=== PATIENT | female | born 1950 | race Caucasian/White ===

== ENCOUNTER 2017-02-24 21:38 | Inpatient (IN) | payer MEDICARE, MEDICAID ==
[2017-02-24 23:48] LABS: BASO # 0.1 K/uL (0.0-0.2); BASO % 0.8 % (0.0-2.0); EOS # 0.1 K/uL (0.0-0.7); EOS % 1.9 % (0.0-4.0); HEMATOCRIT 39.4 % (34.0-47.0); LYMPH # 1.6 K/uL (1.0-4.3); MEAN CORPUSCULAR HEMOGLOBIN 30.6 pg (27.0-31.0); MEAN CORPUSCULAR HGB CONC 34.3 g/dL (33.0-37.0); MEAN PLATELET VOLUME 8.2 fL (7.2-11.7); MONO # 0.4 K/uL (0.0-0.8); RED CELL DISTRIBUTION WIDTH 13.8 % (11.5-14.5); WHITE BLOOD COUNT 6.8 K/uL (4.8-10.8)
[2017-02-24 23:57] LABS: CHLORIDE 101 mmol/L (98-107); SODIUM 136 mmol/L (132-148)
--- NOTE | 2017-02-24 23:58 | CT ---
EXAM: CT Head Without Intravenous Contrast EXAM DATE/TIME: 02/24/2017 10:58 PM CLINICAL HISTORY: 66 years old, female; Condition or disease; Headache; Headache not specified; Additional info: Headache, weakness, h/o evp operations shunt TECHNIQUE: Axial computed tomography images of the head/brain without intravenous contrast. All CT scans at this facility use one or more dose reduction techniques, viz.: automated exposure control; ma/kV adjustment per patient size (including targeted exams where dose is matched to indication; i.e. head); or iterative reconstruction technique. COMPARISON: No relevant prior studies available. FINDINGS: Brain and ventricles: A ventricular catheter is in place. Catheter enters from a right frontal approach and extends inferiorly and medially to the midline. There is now dilatation of the lateral and third ventricles. There is mild effacement of sulci or gyri. Fourth ventricle is unchanged in size and configuration. There are no focal masses or hemorrhages. Quintana-white differentiation is visualized Bones/joints: There is a right frontal sarina hole. Visualized extracranial portion of the shunt apparatus is intact. Soft tissues: unremarkable Sinuses: There is no acute sinusitis. Ears and mastoids: Middle ears and mastoids are unremarkable Orbits: Orbital contents are unremarkable. Tubes, lines and devices: IMPRESSION: Shunt malfunction
[2017-02-24 23:59] LABS: ALB/GLOB RATIO 1.7 (1.0-2.1); AST/SGOT 23 U/L (14-36); BILIRUBIN,TOTAL 0.4 mg/dL (0.2-1.3); CARBON DIOXIDE 23 mmol/L (22-30); GFR AFRICAN-AMERICAN > 60; TOTAL PROTEIN 6.4 g/dL (6.3-8.3)
[2017-02-25] LABS: ALKALINE PHOSPHATASE 57 U/L (38-126); ALT/SGPT 35 U/L (9-52); BLOOD UREA NITROGEN 19 mg/dL (7-17); CALCIUM 9.2 mg/dl (8.6-10.4); GLUCOSE,RANDOM 84 mg/dL (65-105); MAGNESIUM 1.7 mg/dL (1.6-2.3)
[2017-02-25 00:29] LABS: RBC URINE 1 /hpf (0-3); URINE BILIRUBIN NEGATIVE (NEGATIVE); URINE BLOOD NEGATIVE (NEGATIVE); URINE COLOR Straw (YELLOW); URINE GLUCOSE (UA) NORMAL (Normal); URINE KETONE NEGATIVE (NEGATIVE); URINE LEUKOCYTE ESTERASE NEG Leu/uL (Negative); URINE PROTEIN NEGATIVE (NEGATIVE); URINE UROBILINOGEN NORMAL mg/dL (0.2-1.0); WBC URINE 1 /hpf (0-5)
--- NOTE | 2017-02-25 00:49 | C.PDOC ---
Time Seen by Provider: 02/24/17 22:20 Chief Complaint (Nursing): Altered Mental Status History Per: Patient, Family Onset/Duration Of Symptoms: Days (few) Current Symptoms Are (Timing): Still Present Usual Baseline: Alert Oriented, Ambulatory Decreased Ability To: Walk Severity: Moderate Additional History Per: Prior Records Associated Symptoms: Headache, Weakness Past Medical History Reviewed: Historical Data, Nursing Documentation, Vital Signs Vital Signs: Last Vital Signs Temp 98.1 F 02/24/17 23:45 Pulse 90 02/24/17 21:46 Resp 16 02/24/17 21:46 BP 120/79 02/24/17 21:46 Pulse Ox 97 02/24/17 21:46 - Medical History PMH: Asthma, Diabetes, HTN, Hyperlipidemia Other Surgeries: EXERCISE SPECIALIST Shunt Family History: States: Unknown Family Hx - Social History Hx Alcohol Use: No Hx Substance Use: No - Immunization History Hx Influenza Vaccination: Yes Hx Pneumococcal Vaccination: No Review Of Systems Except As Marked, All Systems Reviewed And Found Negative. Constitutional: Positive for: Weakness. Negative for: Fever Cardiovascular: Negative for: Chest Pain Respiratory: Negative for: Shortness of Breath Gastrointestinal: Negative for: Nausea, Vomiting, Abdominal Pain, Diarrhea Skin: Negative for: Rash Neurological: Positive for: Altered Mental Status, Headache. Negative for: Weakness, Numbness, Seizures Physical Exam - Physical Exam Appears: No Acute Distress Skin: Normal Color, Warm, Dry Head: Atraumatic, Normacephalic Eye(s): bilateral: PERRL, Other (Pt is unable to look up) Neck: Normal ROM, Supple Cardiovascular: Rhythm Regular Respiratory: Normal Breath Sounds, No Accessory Muscle Use Gastrointestinal/Abdominal: Soft, No Tenderness Back: No CVA Tenderness Extremity: Normal ROM Neurological/Psych: Oriented x3, Normal Motor, Normal Sensation ED Course And Treatment - Laboratory Results Result Diagrams: 02/24/17 23:46 02/24/17 23:46 ECG: Interpreted By Me, Viewed By Me ECG Rhythm: Sinus Rhythm ECG Interpretation: No Acute Changes Rate From EC O2 Sat by Pulse Oximetry: 97 Pulse Ox Interpretation: Normal - CT Scan/US CT head Other Rad Studies (CT/US): Read By Radiologist, Radiology Report Reviewed CT/US Interpretation: IMPRESSION: Shunt malfunction - Physician Consult Information Physician Contacted: Fer Hancock (Neurosurg.) Outcome Of Conversation: He wants pt admitted on medical service and he will do procedure tomorrow. Disposition Discussed With Dr.: Travis Alfredo MD Comment: He accepted pt on hospitalist service as pt's pmd is Dr. Pritchett. Doctor Will See Patient In The: Hospital Counseled Patient/Family Regarding: Studies Performed, Diagnosis - Disposition Disposition: HOSPITALIZED Disposition Time: 00:52 Condition: GUARDED - Clinical Impression Clinical Impression: Obstructed EXERCISE SPECIALIST shunt, Hydrocephalus
--- NOTE | 2017-02-25 00:50 | RAD ---
EXAM: XR Skull, 1, 2 or 3 Views CLINICAL HISTORY: 66 years old, female; Pain; Other: Check vp respiratory shunt; Headache; Prior surgery TECHNIQUE: Frontal and/or lateral views of the skull. COMPARISON: No relevant prior studies available. FINDINGS: Bones/joints: Frontal view of the skull shows no acute fracture. The bones are well-mineralized. Sinuses: Visualized sinuses are well-aerated Soft tissues: see above Tubes, lines and devices: There is a ventricular catheter entering from right frontal approach. Catheter projects inferiorly and medially toward the midline. The extracranial portion of the shunt apparatus appears intact. Tubing courses over the right skull, neck and right upper chest. IMPRESSION: Ventricular catheter entering from a right-sided approach; visualized extracranial tubing intact EXAM: XR Chest, 1 View CLINICAL HISTORY: 66 years old, female; Pain; Other: Check vp respiratory shunt; Headache; Prior surgery TECHNIQUE: Frontal view of the chest. COMPARISON: No relevant prior studies available. FINDINGS: Lungs: Lungs are incompletely imaged. Visualized portions are clear. Pleural space: There are no large effusions. Heart: Heart size is accentuated by technique. Mediastinum: unremarkable Bones/joints: Regional bones are well-mineralized Tubes, lines and devices: Shunt tubing courses over the lower right neck, midportion of the right chest and projects over the right upper quadrant of the abdomen. Tubing is intact IMPRESSION: Intact tubing EXAM: XR Abdomen, 1 View EXAM DATE/TIME: 02/24/2017 11:07 PM CLINICAL HISTORY: 66 years old, female; Pain; Other: Check vp respiratory shunt; Headache; Prior surgery TECHNIQUE: Frontal supine view of the abdomen/pelvis. COMPARISON: CT - HEAD W/O CONTRAST 2017-02-24 23:15 FINDINGS: Gastrointestinal tract: There is a nonobstructed bowel gas pattern. There is a clip in the right upper quadrant. Bones/joints: There are no acute osseous abnormalities. Soft tissues: There are no abnormal soft tissue masses or pathologic calcifications Tubes, lines and devices: Shunt tubing courses over the right upper abdomen. Catheter projects down the right flank.. Tip is in the right lower quadrant. IMPRESSION: Intact tubing
[2017-02-25] MEDS ORDERED: Potassium Chloride 20 mEq ER Tab PO STA (00:55)
[2017-02-25] MEDS ORDERED: Apap-Butalbital-Caffeine 325-50-40mg Tab PO PRN (01:06)
[2017-02-25] MEDS ORDERED: Glucagon Recombinant 1 mg Inj IM PRN ×2 (01:14→01:32)
[2017-02-25] MEDS ORDERED: Dextrose 50% SYRINGE Inj (50 ml) IVP PRN ×2 (01:14→01:32)
[2017-02-25] MEDS ORDERED: Dextrose 5%/0.45% NS 1,000 ML IV SCH (01:15)
--- NOTE | 2017-02-25 01:20 | CP.PCM.HP ---
Addendum entered and electronically signed by Jaleesa Richard DO 02/25/17 06:08: D5W @ 75 discontinued due to gluc in 200s per nursing report Original Note: <Jaleesa Richard - Last Filed: 02/25/17 01:31> History of Present Illness - History of Present Illness History of Present Illness: History and Physical for Dr. Alfredo 66F presents with increasing weakness, dizziness that waxes and wanes for the past 2 days. Patient had a TELECOMMUNICATIONS ADMINISTRATOR shunt placed in 2012. Per daughter and sons, patient normally walks, but her walking has been bad lately. Family and patient informed that neurosurgery has been consulted and patient is to be NPO overnight for surgery tomorrow. Patient denies fever, visual changes, chest pain , SOB, extremity weakness, sensory changes. PMH: HTN, Diabetes, hypercholesterolemia, and asthma PSH: TELECOMMUNICATIONS ADMINISTRATOR shunt, placed by neurosurgeon Dr. Shepherd at [facility]. (per previous admission note) Allergies NKDA Present on Admission - Present on Admission Any Indicators Present on Admission: No History of DVT/PE: No History of Uncontrolled Diabetes: No Urinary Catheter: No Past Patient History - Infectious Disease Hx of Infectious Diseases: None - Past Social History Smoking Status: Never Smoked - CARDIAC Hx Hypertension: Yes - PULMONARY Hx Asthma: Yes - NEUROLOGICAL Hx Vertigo: Yes - ENDOCRINE/METABOLIC Hx Diabetes Mellitus Type 1: Yes - PSYCHIATRIC Hx Substance Use: No - SURGICAL HISTORY Other/Comment: brain shunt - ANESTHESIA Hx Anesthesia: Yes Hx Anesthesia Reactions: No Meds Allergies/Adverse Reactions: Allergies Allergy/AdvReac Type Severity Reaction Status Date / Time No Known Allergies Allergy Verified 12/08/15 16:19 Physical Exam - Head Exam Head Exam: ATRAUMATIC - Eye Exam Eye Exam: EOMI, Normal appearance - ENT Exam ENT Exam: Mucous Membranes Moist - Respiratory Exam Respiratory Exam: NORMAL BREATHING PATTERN. absent: Accessory Muscle Use, Respiratory Distress - Cardiovascular Exam Cardiovascular Exam: REGULAR RHYTHM, +S1, +S2. absent: Bradycardia, Tachycardia - GI/Abdominal Exam GI & Abdominal Exam: Distended, Soft. absent: Firm, Guarding, Tenderness - Extremities Exam Extremities exam: Positive for: normal inspection. Negative for: joint swelling , pedal edema - Psychiatric Exam Psychiatric exam: Flat Affect - Skin Skin Exam: Dry, Pallor Results - Vital Signs Recent Vital Signs: Last Vital Signs Temp 98.1 F 02/24/17 23:45 Pulse 90 02/24/17 21:46 Resp 16 02/24/17 21:46 BP 120/79 02/24/17 21:46 Pulse Ox 97 02/25/17 00:53 - Labs Result Diagrams: 02/24/17 23:46 02/24/17 23:46 Labs: Laboratory Results - last 24 hr 02/24/17 02/24/17 02/24/17 21:59 23:46 23:46 WBC 6.8 RBC 4.42 Hgb 13.5 Hct 39.4 MCV 89.0 MCH 30.6 MCHC 34.3 RDW 13.8 Plt Count 197 MPV 8.2 Neut % (Auto) 68.3 Lymph % (Auto) 23.0 [place] % (Auto) 6.0 Eos % (Auto) 1.9 Baso % (Auto) 0.8 Neut # 4.6 Lymph # 1.6 [place] # 0.4 Eos # 0.1 Baso # 0.1 PT 11.6 INR 1.0 APTT 28 Sodium Potassium Chloride Carbon Dioxide Anion Gap BUN Creatinine Est GFR ( Amer) Est GFR (Non-Af Amer) POC Glucose (mg/dL) 140 H Random Glucose Calcium Magnesium Total Bilirubin AST ALT Alkaline Phosphatase Troponin I NT-Pro-B Natriuret Pep Total Protein Albumin Globulin Albumin/Globulin Ratio Urine Color Urine Clarity Urine pH Ur Specific [place] Urine Protein Urine Glucose (UA) Urine Ketones Urine Blood Urine Nitrate Urine Bilirubin Urine Urobilinogen Ur Leukocyte Esterase Urine WBC (Auto) Urine RBC (Auto) Ur Squamous Epith Cells 02/24/17 02/25/17 23:46 00:24 WBC RBC Hgb Hct MCV MCH MCHC RDW Plt Count MPV Neut % (Auto) Lymph % (Auto) [place] % (Auto) Eos % (Auto) Baso % (Auto) Neut # Lymph # [place] # Eos # Baso # PT INR APTT Sodium 136 Potassium 3.0 L Chloride 101 Carbon Dioxide 23 Anion Gap 14 BUN 19 H Creatinine 0.9 Est GFR ( Amer) > 60 Est GFR (Non-Af Amer) > 60 POC Glucose (mg/dL) Random Glucose 84 Calcium 9.2 Magnesium 1.7 Total Bilirubin 0.4 AST 23 ALT 35 Alkaline Phosphatase 57 Troponin I < 0.0120 NT-Pro-B Natriuret Pep 50.7 Total Protein 6.4 Albumin 4.0 Globulin 2.4 Albumin/Globulin Ratio 1.7 Urine Color Straw Urine Clarity Clear Urine pH 7.0 Ur Specific [place] 1.005 Urine Protein Negative Urine Glucose (UA) Normal Urine Ketones Negative Urine Blood Negative Urine Nitrate Negative Urine Bilirubin Negative Urine Urobilinogen Normal Ur Leukocyte Esterase Neg Urine WBC (Auto) 1 Urine RBC (Auto) 1 Ur Squamous Epith Cells 1 Assessment & Plan - Assessment and Plan (Free Text) Assessment: increasing hydrocephalus, hx TELECOMMUNICATIONS ADMINISTRATOR shunt Neurocheck Q4H Vitals Q4H Neurosurgery consult: Dr. Hancock for TELECOMMUNICATIONS ADMINISTRATOR shunt placement/adjustment AM CMP, Mg, Ph, CBC, and COAG Hx HTN Valsartan-HCTZ 1 tab POQD norvasc 5mg POQD DM gabapentin 100mgPOBID Simvastatin 40mg POQD Accucheck Insulin ACHS SS, Low D5W 1/2 NS @75cc HLD Simvastatin 40mg POQD Asthma Proair Hfa 2 puff INH daily Prophylaxis diet: NPO except meds SCDs Protonix 40mg POQD discussed with Dr. Sayda Richard DO PGY1 - Date & Time Date: 02/25/17 Time: 01:29 <Sayda SALAS,Travis - Last Filed: 02/27/17 09:37> Results - Vital Signs Recent Vital Signs: Last Vital Signs Temp 99.3 F 02/27/17 00:00 Pulse 89 02/27/17 01:00 Resp 20 02/27/17 00:00 BP 149/90 02/27/17 00:00 Pulse Ox 96 02/27/17 00:00 - Labs Result Diagrams: 02/27/17 08:48 02/26/17 08:43 Labs: Laboratory Results - last 24 hr 02/26/17 02/26/17 02/26/17 11:30 16:54 21:58 WBC RBC Hgb Hct MCV MCH MCHC RDW Plt Count MPV Neut % (Auto) Lymph % (Auto) [place] % (Auto) Eos % (Auto) Baso % (Auto) Neut # Lymph # [place] # Eos # Baso # POC Glucose (mg/dL) 333 H 345 H 341 H 02/27/17 02/27/17 07:33 08:48 WBC 8.3 RBC 4.17 Hgb 12.9 Hct 37.1 MCV 89.0 MCH 31.0 MCHC 34.8 RDW 13.8 Plt Count 191 MPV 8.1 Neut % (Auto) 76.6 H Lymph % (Auto) 16.4 L [place] % (Auto) 6.3 Eos % (Auto) 0.2 Baso % (Auto) 0.5 Neut # 6.4 Lymph # 1.4 [place] # 0.5 Eos # 0.0 Baso # 0.0 POC Glucose (mg/dL) 393 H Attending/Attestation - Attestation I have personally seen and examined this patient.: Yes I have fully participated in the care of the patient.: Yes I have reviewed all pertinent clinical information: Yes Notes (Text): -I agree with the above H&P completed by the resident physician. -Briefly, the patient is a 66 yo F with a history of TELECOMMUNICATIONS ADMINISTRATOR shunt, being admitted for symptomatic hydrocephalus likely due to TELECOMMUNICATIONS ADMINISTRATOR shunt malfunction. Neurosurgery has been consulted and the patient will be kept NPO overnight for likely shunt revision in AM.
[2017-02-25] MEDS ORDERED: Potassium Chloride 20 mEq ER Tab PO ONE (01:21)
[2017-02-25] MEDS: (Novolin R) Insulin Human Regular 100 units/ml vial SC SCH ×4 (07:30→23:41)
--- NOTE | 2017-02-25 08:36 | CP.PCM.PN ---
Subjective - Date & Time of Evaluation Date of Evaluation: 02/25/17 Time of Evaluation: 08:00 - Subjective Subjective: Hospitalist Progress Note Patient was seen and examined at 8 AM 02/25/17 [id number] A 66 year old female was admitted earlier this morning with complaints of dizziness, weakness off and on for the past 2 days. My coversation with Son Aftab [phone] and Daughter Maribeth [phone] revealed that the patient has been feeling these things steadily getting worse over the course of 3 months. This has been associated with shuffling gait, worsening of speech ( mubling), and episodes on 02/24/17 evening of not answering appropriately to questions that were posed to her. CT Head shows dilataton of the lateral and third ventricles with mild effacement of the sulci/gyri, shows FOUNTAIN MANAGER shunt malfunction. ShuntGram shows intact FOUNTAIN MANAGER Tubing. She has a history of FOUNTAIN MANAGER shunt and Patient is currently NPO and awaiting evaluation by Neurosurgery. Currently upon FULL ROS: NO chest pain NO SOB NO abdominal pain NO n/v/d/c (last bowel movement was yesterday and it was normal NO pain with Urination HOWEVER states that she has been urinating FREQUENTLY NO dizziness while laying in bed (+) Headache on the left temporal/parietal/occipital area NO blurriness/double vision NO new changes in hearing NO paresthesias Exam: General: Awake, Slurred speech, States that it is March but could not relate the year, Recognizes son and daughter, Follows commands HEENT: NCA, Pupils are round/equal and reactive to light however patient is only able to follow the light with her eye from side to side, NO cervical lymphadenopathy, NO thyromegaly, Could NOT visualize pharynx, Patient only able to extend tongue straight outwards but not side to side Cardio: NS1 and NS2, NO M/R/G Resp: CTA B/L NO R/R/W GI: BSx4 are reduced, Soft, Central Obesity therefore liver and spleen could not be adequately palpated, NT, NO guarding/rebound tenderness Ext: NO edema, Pulses are strong and equal, Capillary Refill is 2 seconds Neuro: 5/5 strength with flexion and extension of bilateral UE, 5/5 strength with flexion and extension of the bilateral knees, Hip strength could not be assessed, Babinski normal, Rhomberg could not be assessed at this time. Assessment and Plan: 1). Hydrocephalus CT Head shows dilataton of the lateral and third ventricles with mild effacement of the sulci/gyri, shows FOUNTAIN MANAGER shunt malfunction. ShuntGram shows intact FOUNTAIN MANAGER Tubing. Neurosurgery was contacted by overnight Medicine Team and awaiting evaluation 2). Hypokalemia S/P 40 meq KCl x 1 dose 3). Hx HTN Norvasc 5 mg PO 1x/day Valsartan/HCTZ 160/25 mg PO 1x/day 4). Hx DM 2 Regular ISS ACHS Gabapentin 100 mg PO 1x/day 5). Hx HLD Vascepa 1 gm PO 2x/day Crestor 10 mg PO HS 6). Hx Asthma Proair 7). Prophylaxis Protonix 40 mg PO 1x/day HOLDING anticoagulation for now for possible procedure Bilateral SCDs NPO I went over findings on CT Head and Shuntgram with both Son Aftab [phone] and Daughter Maribeth [phone]. Marcos Tavares D.O. [phone] Objective - Vital Signs/Intake and Output Vital Signs (last 24 hours): Temp Pulse Resp BP Pulse Ox 98 F 99 H 20 123/83 96 02/25/17 08:00 02/25/17 08:00 02/25/17 08:00 02/25/17 08:00 02/25/17 08:00 - Medications Medications: Current Medications Acetaminophen/Butalbital/Caffeine (Fioricet) 1 tab PO TID PRN PRN Reason: Headache Amlodipine Besylate (Norvasc) 5 mg PO DAILY [facility] Dextrose (Dextrose 50% Inj) 0 ml IVP .STAT PRN; Protocol PRN Reason: Hypoglycemia Protocol Dextrose (Glutose 15) 0 gm PO .ONCE PRN; Protocol PRN Reason: Hypoglycemia Protocol Gabapentin (Neurontin) 100 mg PO DAILY [facility] Glucagon (Glucagen Diagnostic Kit) 0 mg IM .STAT PRN; Protocol PRN Reason: Hypoglycemia Protocol Home Med (Icosapent Ethyl [Vascepa]) 1 gm PO BID MO[facility] Home Med (Proair Hfa) 2 puff INH DAILY [facility] Home Med (Valsartan-Hctz 160-25 Mg Tab) 1 tab PO DAILY [facility] Dextrose (Dextrose 5% In Water 1000 Ml) 1,000 mls @ 0 mls/hr IV .Q0M PRN; Protocol; Per Protocol PRN Reason: Hypoglycemia Protocol Insulin Human Regular (Novolin R) 0 unit SC ACHS [facility] PRN Reason: Protocol Pantoprazole Sodium (Protonix Ec Tab) 40 mg PO DAILY [facility] Rosuvastatin Calcium (Crestor) 10 mg PO HS MOLLY - Labs Labs: 02/24/17 23:46 10 23:46 PT 11.6 SECONDS (9.7-12.2) 02/24/17 23:46 INR 1.0 02/24/17 23:46 APTT 28 SECONDS (21-34) 02/24/17 23:46
[2017-02-25 08:37] LABS: ALB/GLOB RATIO 1.7 (1.0-2.1); ALKALINE PHOSPHATASE 63 U/L (38-126); AST/SGOT 23 U/L (14-36); BILIRUBIN,TOTAL 0.6 mg/dL (0.2-1.3); BLOOD UREA NITROGEN 17 mg/dL (7-17); CARBON DIOXIDE 20 mmol/L (22-30); CHLORIDE 107 mmol/L (98-107); GFR AFRICAN-AMERICAN > 60; GLUCOSE,RANDOM 183 mg/dL (65-105); POTASSIUM 3.7 mmol/L (3.6-5.2); SODIUM 137 mmol/L (132-148); TOTAL PROTEIN 6.5 g/dL (6.3-8.3)
[2017-02-25 08:38] LABS: ALT/SGPT 30 U/L (9-52); CALCIUM 9.1 mg/dl (8.6-10.4); MAGNESIUM 1.7 mg/dL (1.6-2.3)
[2017-02-25 08:38] LABS: BASO % 0.8 % (0.0-2.0); EOS # 0.2 K/uL (0.0-0.7); EOS % 2.4 % (0.0-4.0); HEMATOCRIT 39.6 % (34.0-47.0); LYMPH # 1.8 K/uL (1.0-4.3); LYMPH % 28.1 % (20.0-40.0); MEAN CELL VOLUME 89.6 fL (81.0-99.0); MEAN CORPUSCULAR HEMOGLOBIN 30.2 pg (27.0-31.0); MEAN CORPUSCULAR HGB CONC 33.7 g/dL (33.0-37.0); MEAN PLATELET VOLUME 8.6 fL (7.2-11.7); MONO # 0.4 K/uL (0.0-0.8); MONO % 5.9 % (0.0-10.0); NRBC % 0.1 % (0.0-2.0); RED CELL DISTRIBUTION WIDTH 13.8 % (11.5-14.5); WHITE BLOOD COUNT 6.6 K/uL (4.8-10.8)
[2017-02-25] MEDS ORDERED: Albuterol HFA 90 mcg/actuation (8 g) INH PRN ×2 (09:22→12:00)
[2017-02-25] MEDS ORDERED: [UNRECOGNIZED DRUG - OTHER] PO SCH (10:00)
[2017-02-25] MEDS ORDERED: LIRAGLUTIDE PO SCH (10:00)
[2017-02-25] MEDS: Omega-3-Acid Ethyl Esters 1 GM Cap PO SCH ×2 (11:00→18:27)
[2017-02-25] MEDS: Pantoprazole 40 mg EC Tab PO SCH (11:00)
[2017-02-25] MEDS: Albuterol-Ipratrop 3 mg / 0.5 (3 ml) UD INH PRN (12:03)
[2017-02-25] MEDS ORDERED: Gentamicin Sulfate 10 MG in Sodium Chloride 0.9% 1 ML IN ONE (13:00)
[2017-02-25] MEDS ORDERED: Vancomycin 10 MG in Sodium Chloride 0.9% 1 ML IN ONE (13:00)
[2017-02-25] MEDS ORDERED: cefTRIAXone IV 1 gm in Dextros 50 ML IVPB ONE (13:19)
[2017-02-25] MEDS ORDERED: Bacitracin Ointment 30 GM TUBE ONE (13:20)
[2017-02-25] MEDS ORDERED: Lidocaine 1%/Epinephrine 1:100000 30 ml vial IJ ONE (13:30)
[2017-02-25] MEDS ORDERED: Rocuronium 10 mg/ml (5 ml) ONE (13:42)
[2017-02-25] MEDS ORDERED: Propofol 10 mg/ml Inj (20 ML) ONE ×2 (13:42→15:46)
[2017-02-25] MEDS ORDERED: Lactated Ringer's 1,000 ML IV ONE ×2 (13:45→16:15)
[2017-02-25] MEDS ORDERED: Absorbable Gelatin Sponge Size 12-7 ONE (14:38)
[2017-02-25] MEDS ORDERED: Thrombin Topical 5,000 IU Spray Kit ONE (14:38)
[2017-02-25] MEDS ORDERED: HYDROmorphone 0.5 mg/0.5 ml ISec IVP STA (16:10)
[2017-02-25] MEDS ORDERED: Naloxone 0.4 mg/ml Inj (Adult) IVP PRN (16:21)
[2017-02-25] MEDS ORDERED: HYDROmorphone 0.5 mg/0.5 ml ISec ONE (16:31)
[2017-02-25 19:53] LABS: FLUID TYPE SPINAL FLUID
[2017-02-25] MEDS: Potassium Ch 20mEq in D5-1/2NS 1,000 ML IV SCH (20:47)
[2017-02-26] MEDS: Potassium Ch 20mEq in D5-1/2NS 1,000 ML IV SCH ×4 (03:30→23:50)
[2017-02-26] MEDS: (Novolin R) Insulin Human Regular 100 units/ml vial SC SCH ×4 (07:49→22:06)
[2017-02-26 08:59] LABS: BASO % 0.6 % (0.0-2.0); EOS # 0.1 K/uL (0.0-0.7); EOS % 1.9 % (0.0-4.0); HEMATOCRIT 35.4 % (34.0-47.0); LYMPH # 1.9 K/uL (1.0-4.3); LYMPH % 24.9 % (20.0-40.0); MEAN CELL VOLUME 89.4 fL (81.0-99.0); MEAN CORPUSCULAR HEMOGLOBIN 30.7 pg (27.0-31.0); MEAN CORPUSCULAR HGB CONC 34.3 g/dL (33.0-37.0); MEAN PLATELET VOLUME 8.8 fL (7.2-11.7); MONO # 0.6 K/uL (0.0-0.8); MONO % 7.3 % (0.0-10.0); RED CELL DISTRIBUTION WIDTH 14.2 % (11.5-14.5); WHITE BLOOD COUNT 7.5 K/uL (4.8-10.8)
[2017-02-26 09:15] LABS: CHLORIDE 105 mmol/L (98-107); POTASSIUM 3.6 mmol/L (3.6-5.2); SODIUM 135 mmol/L (132-148)
[2017-02-26 09:17] LABS: BILIRUBIN,TOTAL 0.7 mg/dL (0.2-1.3); CARBON DIOXIDE 21 mmol/L (22-30); GFR AFRICAN-AMERICAN > 60
[2017-02-26 09:18] LABS: ALB/GLOB RATIO 1.1 (1.0-2.1); ALKALINE PHOSPHATASE 61 U/L (38-126); ALT/SGPT 52 U/L (9-52); AST/SGOT 43 U/L (14-36); BLOOD UREA NITROGEN 13 mg/dL (7-17); CALCIUM 8.7 mg/dl (8.6-10.4); GLUCOSE,RANDOM 251 mg/dL (65-105); MAGNESIUM 1.6 mg/dL (1.6-2.3); TOTAL PROTEIN 6.7 g/dL (6.3-8.3)
--- NOTE | 2017-02-26 09:26 | CP.PCM.PN ---
Subjective - Date & Time of Evaluation Date of Evaluation: 02/26/17 Time of Evaluation: 09:10 - Subjective Subjective: Hospitalist Progress Note Patient was seen and examined at 9:10 AM 02/26/17 [id number] A 66 year old female was admitted 02/25/17 morning with complaints of dizziness, weakness off and on for the past 2 days. My coversation with Son Aftab and Daughter Maribeth [phone] on 02/25/17 revealed that the patient has been feeling these things steadily getting worse over the course of 3 months. This has been associated with shuffling gait, worsening of speech (mubling), and episodes on 02/24/17 evening of not answering appropriately to questions that were posed to her. CT Head shows dilataton of the lateral and third ventricles with mild effacement of the sulci/gyri, shows SUPPLY CHAIN VICE PRESIDENT shunt malfunction. ShuntGram shows intact SUPPLY CHAIN VICE PRESIDENT Tubing. She underwent Shunt Repair by Neurosurgery on 02/25/17 Currently upon FULL ROS: Patient is eating oatmeal that is being fed to her by her Daughter Maribeth but with eyes closed and not answering questions therefore ROS is not possible Exam: General:NOT responsive to questioning and not following commands HEENT: NCA, Pupils are round/equal and reactive to light, NO cervical lymphadenopathy, NO thyromegaly, Could NOT visualize pharynx as not opening mouth Cardio: NS1 and NS2, NO M/R/G Resp: CTA B/L NO R/R/W but this is limited by patient not taking in deep breaths GI: BSx4 are reduced, Soft, Central Obesity therefore liver and spleen could not be adequately palpated, NT, NO guarding/rebound tenderness Ext: NO edema, Pulses are strong and equal, Capillary Refill is 2 seconds Neuro: Coud NOT be performed due to patient status Assessment and Plan: 1). Hydrocephalus CT Head shows 02/24/17 dilataton of the lateral and third ventricles with mild effacement of the sulci/gyri, shows SUPPLY CHAIN VICE PRESIDENT shunt malfunction. ShuntGram 02/24/17 shows intact SUPPLY CHAIN VICE PRESIDENT Tubing. She is POD #1 SUPPLY CHAIN VICE PRESIDENT Shunt Repair 02/25/[address] Head w/o contrast ordered for 02/27/17 2). Hypokalemia S/P 40 meq KCl x 1 dose on 02/25/17 and this has resolved 3). Hx HTN Norvasc 5 mg PO 1x/day Valsartan/HCTZ 160/25 mg PO 1x/day 4). Hx DM 2 Regular ISS ACHS Gabapentin 100 mg PO 1x/day 5). Hx HLD Vascepa 1 gm PO 2x/day Crestor 10 mg PO HS 6). Hx Asthma Duoneb Q6H PRN 7). Prophylaxis Protonix 40 mg PO 1x/day HOLDING anticoagulation for now considering recent surgery Bilateral SCDs Heart Healthy 2gm Na Low Carb Diet PT/OT starting 02/27/17 I updated Daughter Maribeth [phone] who was at the bedside. Marcos Tavares D.O. Objective - Vital Signs/Intake and Output Vital Signs (last 24 hours): Temp Pulse Resp BP Pulse Ox 99.1 F 94 H 20 124/76 96 02/26/17 07:30 02/26/17 08:49 02/26/17 07:30 02/26/17 07:30 02/26/17 07:30 - Medications Medications: Current Medications Acetaminophen (Tylenol 325mg Tab) 650 mg PO Q6 PRN PRN Reason: Pain, moderate (4-7) Acetaminophen/Butalbital/Caffeine (Fioricet) 1 tab PO TID PRN PRN Reason: Headache Albuterol (Ventolin Hfa 90 Mcg/Actuation (8 G)) 1 puff INH RQ6 PRN PRN Reason: Shortness of Breath Albuterol/Ipratropium (Duoneb 3 Mg/0.5 Mg (3 Ml) Ud) 3 ml INH RQ6 PRN PRN Reason: Wheezing Last Admin: 02/25/17 12:03 Dose: 3 ml Amlodipine Besylate (Norvasc) 5 mg PO DAILY MOLLY Last Admin: 02/25/17 11:00 Dose: 5 mg Dextrose (Dextrose 50% Inj) 0 ml IVP .STAT PRN; Protocol PRN Reason: Hypoglycemia Protocol Dextrose (Glutose 15) 0 gm PO .ONCE PRN; Protocol PRN Reason: Hypoglycemia Protocol Gabapentin (Neurontin) 100 mg PO DAILY [facility] Last Admin: 02/25/17 11:00 Dose: 100 mg Glucagon (Glucagen Diagnostic Kit) 0 mg IM .STAT PRN; Protocol PRN Reason: Hypoglycemia Protocol Hydrochlorothiazide (Hydrodiuril) 25 mg PO DAILY [facility] Last Admin: 02/25/17 11:00 Dose: Not Given Dextrose (Dextrose 5% In Water 1000 Ml) 1,000 mls @ 0 mls/hr IV .Q0M PRN; Protocol; Per Protocol PRN Reason: Hypoglycemia Protocol Potassium Chloride/Dextrose/Sod Cl (Potassium Chl 20 Meq In D5-1/2ns) 1,000 mls @ 100 mls/hr IV .Q10H [facility] Last Admin: 02/26/17 06:40 Dose: 100 mls/hr Insulin Human Regular (Novolin R) 0 unit SC ACHS [facility] PRN Reason: Protocol Last Admin: 02/26/17 07:49 Dose: 3 unit Losartan Potassium (Cozaar) 100 mg PO DAILY [facility] Last Admin: 02/25/17 11:00 Dose: 100 mg [id number] Ethyl Esters (Lovaza) 1 gm PO BID [facility] Last Admin: 02/25/17 18:27 Dose: Not Given Pantoprazole Sodium (Protonix Ec Tab) 40 mg PO DAILY [facility] Last Admin: 02/25/17 11:00 Dose: 40 mg Rosuvastatin Calcium (Crestor) 10 mg PO HS [facility] Last Admin: 02/25/17 22:21 Dose: 10 mg - Labs Labs: 02/26/17 08:43 02/26/17 08:43 PT 11.7 SECONDS (9.7-12.2) 02/25/17 08:31 INR 1.0 02/25/17 08:31 APTT 28 SECONDS (21-34) 02/25/17 08:31
[2017-02-26] MEDS: Pantoprazole 40 mg EC Tab PO SCH (09:27)
[2017-02-26] MEDS: Omega-3-Acid Ethyl Esters 1 GM Cap PO SCH ×2 (09:27→17:14)
--- NOTE | 2017-02-26 11:11 | CP.PCM.PN ---
Subjective - Date & Time of Evaluation Date of Evaluation: 02/26/17 Time of Evaluation: 11:08 - Subjective Subjective: POD 1 ate bfast this am opens eyes to chest rub PERRL EOMI follows all commands briskly YEH well little more sluggish than expected but intact will get oob to cjhair check CT in am Objective - Vital Signs/Intake and Output Vital Signs (last 24 hours): Temp Pulse Resp BP Pulse Ox 99.1 F 94 H 20 124/76 96 02/26/17 07:30 02/26/17 08:49 02/26/17 07:30 02/26/17 07:30 02/26/17 07:30 - Medications Medications: Current Medications Acetaminophen (Tylenol 325mg Tab) 650 mg PO Q6 PRN PRN Reason: Pain, moderate (4-7) Acetaminophen/Butalbital/Caffeine (Fioricet) 1 tab PO TID PRN PRN Reason: Headache Albuterol (Ventolin Hfa 90 Mcg/Actuation (8 G)) 1 puff INH RQ6 PRN PRN Reason: Shortness of Breath Albuterol/Ipratropium (Duoneb 3 Mg/0.5 Mg (3 Ml) Ud) 3 ml INH RQ6 PRN PRN Reason: Wheezing Last Admin: 02/25/17 12:03 Dose: 3 ml Amlodipine Besylate (Norvasc) 5 mg PO DAILY [facility] Last Admin: 02/26/17 09:28 Dose: 5 mg Dextrose (Dextrose 50% Inj) 0 ml IVP .STAT PRN; Protocol PRN Reason: Hypoglycemia Protocol Dextrose (Glutose 15) 0 gm PO .ONCE PRN; Protocol PRN Reason: Hypoglycemia Protocol Gabapentin (Neurontin) 100 mg PO DAILY [facility] Last Admin: 02/26/17 09:27 Dose: 100 mg Glucagon (Glucagen Diagnostic Kit) 0 mg IM .STAT PRN; Protocol PRN Reason: Hypoglycemia Protocol Hydrochlorothiazide (Hydrodiuril) 25 mg PO DAILY [facility] Last Admin: 02/26/17 09:27 Dose: 25 mg Dextrose (Dextrose 5% In Water 1000 Ml) 1,000 mls @ 0 mls/hr IV .Q0M PRN; Protocol; Per Protocol PRN Reason: Hypoglycemia Protocol Potassium Chloride/Dextrose/Sod Cl (Potassium Chl 20 Meq In D5-1/2ns) 1,000 mls @ 100 mls/hr IV .Q10H [facility] Last Admin: 02/26/17 06:40 Dose: 100 mls/hr Insulin Human Regular (Novolin R) 0 unit SC ACHS [facility] PRN Reason: Protocol Last Admin: 02/26/17 07:49 Dose: 3 unit Losartan Potassium (Cozaar) 100 mg PO DAILY [facility] Last Admin: 02/26/17 09:27 Dose: 100 mg Nmukc-5-Hydy Ethyl Esters (Lovaza) 1 gm PO BID [facility] Last Admin: 02/26/17 09:27 Dose: 1 gm Pantoprazole Sodium (Protonix Ec Tab) 40 mg PO DAILY [facility] Last Admin: 02/26/17 09:27 Dose: 40 mg Rosuvastatin Calcium (Crestor) 10 mg PO HS [facility] Last Admin: 02/25/17 22:21 Dose: 10 mg - Labs Labs: 02/26/17 08:43 02/26/17 08:43 PT 11.7 SECONDS (9.7-12.2) 02/25/17 08:31 INR 1.0 02/25/17 08:31 APTT 28 SECONDS (21-34) 02/25/17 08:31
--- NOTE | 2017-02-26 22:39 | OP ---
PROCEDURE DATE: 02/26/2017 PREOPERATIVE DIAGNOSIS: Ventriculoperitoneal shunt malfunction. POSTOPERATIVE DIAGNOSES: Ventriculoperitoneal shunt malfunction and peritoneal catheter obstruction. PROCEDURE: Emergency revision of ventriculoperitoneal shunt. SURGEON: Fer Hancock MD CO-SURGEON: Padmaja Monroe MD. ANESTHESIA: General endotracheal. ESTIMATED BLOOD LOSS: 50 mL. COMPLICATIONS: None. JUSTIFICATION: The patient apparently had a ventriculoperitoneal shunt inserted in 2014 at [place]. This was as stated by the family primarily for headache. She did well for a couple of years and now presented with a couple of days of progressive lethargy. She was admitted and found to be confused and lethargic. CT documented ventriculomegaly. ROADS SUPERVISOR shunt malfunction was diagnosed. The family was suggested for her to undergo urgent exploration and revision of the ROADS SUPERVISOR shunt. The nature of this procedure, the rationale behind it, potential risks, complications,chance of success were discussed with them at length. All questions were answered. They understood the above and elected to proceed and she was brought urgently to the operating room. DESCRIPTION OF PROCEDURE: The patient was intubated and anesthetized, placed on the OR table in a supine position and placed on a donut and turned 45 degrees to the left. The entire right side of the scalp was hair clipped. It was noted based on the physical exam as well as the ROADS SUPERVISOR and shuntogram that she had a right frontal bur hole with 2 going immediately at the right angle into some type reservoir and connected to a valve and then heading distally down to the abdomen. This whole area was prepped out. There was a curved linear incision just medial to the bur hole. The entire neck, chest and abdomen was scrubbed, painted and draped. The old incision was opened with #15 blade knife and then as the valve was sitting distally to this incision, excision had to be extended at a right angle another several centimeters to expose the entire valve. The distal ventricular catheter and the valve were dissected out with the use of a tenotomy scissors. At this point, I disconnected the ventricular catheter from this reservoir and immediately clear CSF under very high pressure shot out. I collected about 10 mL per for specimen, bled another 5 or so mL drain out and then temporarily clamped the catheter so has not to remove too much CSF at one time and obviously diagnosed that the ventricular catheter was working quite well. I then disconnected the valve from the peritoneal catheter which was essentially completely blocked. I attempted to pull out the peritoneal catheter but it was lodge somewhere in the neck or upper chest and therefore I transected it there. I removed this old valve which I was completely unfamiliar with, I replaced it with a new [employer] Strata valve. This was then connected to the ventricular catheter and again CSF was pouring out of the valve as it was continuously to be under high pressure, as more CSF drain out in this manner. At this point, using a shunt passer, I passed the peritoneal catheter approach to the clavicular area were the passer was hung-up, made a separate stab incision there, then passed a catheter down to a new peritoneal incision. We flushed the peritoneal catheter through. I then hooked up the proximal end of the peritoneal catheter to distal end of the valve and pumped several times and then documented that CSF was seen emerging very nicely from the distal end of the peritoneal catheter with the valve set in its final position in the skull documenting excellent functioning of the new system at this point in time. Dr. Monroe then buried the peritoneal catheter into the abdomen and closed that into the incision while I placed 2-0 ties around the both ends of the connection site of the new valve. I also placed some Vicryl sutures tethering the valve to the periosteum. The wound was copiously irrigated with antibiotic solution. Additionally, I injected 10 mL of vancomycin and 10 mL of gentamicin directly into the valve for additional antibiotic prophylaxis. At this point, the galea was re-approximated using interrupted inverted 3-O Vicryl. The skin closed with clayton. Bacitracin ointment and a self-adhering dressing was placed. These were placed over 3 woolens. The patient was aroused from anesthesia and extubated easily. She was noted to be moving all extremities on her way to the recovery room. All counts were correct. There were no complications. Fer Hancock MD
[2017-02-27] MEDS: Potassium Ch 20mEq in D5-1/2NS 1,000 ML IV SCH ×2 (02:49→09:15)
[2017-02-27] MEDS: (Novolin R) Insulin Human Regular 100 units/ml vial SC SCH ×6 (07:30→22:12)
[2017-02-27 08:57] LABS: BASO % 0.5 % (0.0-2.0); EOS % 0.2 % (0.0-4.0); HEMATOCRIT 37.1 % (34.0-47.0); LYMPH # 1.4 K/uL (1.0-4.3); LYMPH % 16.4 % (20.0-40.0); MEAN CORPUSCULAR HGB CONC 34.8 g/dL (33.0-37.0); MEAN PLATELET VOLUME 8.1 fL (7.2-11.7); MONO # 0.5 K/uL (0.0-0.8); MONO % 6.3 % (0.0-10.0); RED CELL DISTRIBUTION WIDTH 13.8 % (11.5-14.5); WHITE BLOOD COUNT 8.3 K/uL (4.8-10.8)
[2017-02-27 09:30] LABS: CHLORIDE 101 mmol/L (98-107); SODIUM 131 mmol/L (132-148)
[2017-02-27 09:32] LABS: GFR AFRICAN-AMERICAN > 60
[2017-02-27 09:33] LABS: BLOOD UREA NITROGEN 13 mg/dL (7-17); CALCIUM 8.6 mg/dl (8.6-10.4); CARBON DIOXIDE 20 mmol/L (22-30); GLUCOSE,RANDOM 385 mg/dL (65-105)
[2017-02-27] MEDS: Omega-3-Acid Ethyl Esters 1 GM Cap PO SCH ×4 (11:00→18:25)
[2017-02-27] MEDS: Pantoprazole 40 mg EC Tab PO SCH (11:00)
--- NOTE | 2017-02-27 11:33 | CT ---
PROCEDURE: CT HEAD WITHOUT CONTRAST. HISTORY: S/P ELASTIC ATTACHER OVERLOCK Shunt Repair 02/25/17 COMPARISON: 02/24/2017 TECHNIQUE: Axial computed tomography images were obtained through the head/brain without intravenous contrast. Radiation dose: Total exam DLP = 823.64 mGy-cm. This CT exam was performed using one or more of the following dose reduction techniques: Automated exposure control, adjustment of the mA and/or kV according to patient size, and/or use of iterative reconstruction technique. FINDINGS: HEMORRHAGE: No intracranial hemorrhage. BRAIN: No mass effect or edema. No significant atrophy. Periventricular white matter lucency most prominently adjacent to the atria and frontal horns of the lateral ventricles, likely transependymal resorption of CSF. No evidence of acute infarct. VENTRICLES: Right frontal ventriculostomy catheter enters through the frontal horn right lateral ventricle and terminates in the right parasagittal lateral ventricle. There is increasing ventricular dilatation compared to examination of 02/24/2017. There is dilatation of the lateral ventricles and of the 3rd and 4th ventricle. CALVARIUM: Right frontal ventriculostomy site. No calvarial fracture. PARANASAL SINUSES: Minimal chronic sphenoid sinusitis. MASTOID AIR CELLS: Unremarkable as visualized. No inflammatory changes. OTHER FINDINGS: None. IMPRESSION: Mild increase in extent of ventricular dilatation compared to 02/24/2017 with evidence of transependymal resorption of CSF. Right frontal ventriculostomy catheter, unchanged. No other significant interval change.
--- NOTE | 2017-02-27 12:38 | CP.PCM.PN ---
Subjective - Date & Time of Evaluation Date of Evaluation: 02/27/17 Time of Evaluation: 12:37 - Subjective Subjective: awake lithargic follow commands moving purpusfully liliana checked OP of shent set at 2.5 reduced to 1.0 will observe and get ct in am Objective - Vital Signs/Intake and Output Vital Signs (last 24 hours): Temp Pulse Resp BP Pulse Ox 99 F 76 98 H 168/99 H 96 02/27/17 08:50 02/27/17 08:50 02/27/17 11:22 02/27/17 11:22 02/27/17 08:50 - Medications Medications: Current Medications Acetaminophen (Tylenol 325mg Tab) 650 mg PO Q6 PRN PRN Reason: Pain, moderate (4-7) Acetaminophen/Butalbital/Caffeine (Fioricet) 1 tab PO TID PRN PRN Reason: Headache Albuterol (Ventolin Hfa 90 Mcg/Actuation (8 G)) 1 puff INH RQ6 PRN PRN Reason: Shortness of Breath Albuterol/Ipratropium (Duoneb 3 Mg/0.5 Mg (3 Ml) Ud) 3 ml INH RQ6 PRN PRN Reason: Wheezing Last Admin: 02/25/17 12:03 Dose: 3 ml Amlodipine Besylate (Norvasc) 5 mg PO DAILY [facility] Last Admin: 02/26/17 09:28 Dose: 5 mg Dextrose (Dextrose 50% Inj) 0 ml IVP .STAT PRN; Protocol PRN Reason: Hypoglycemia Protocol Dextrose (Glutose 15) 0 gm PO .ONCE PRN; Protocol PRN Reason: Hypoglycemia Protocol Docusate Sodium (Colace) 100 mg PO TID [facility] Gabapentin (Neurontin) 100 mg PO DAILY [facility] Last Admin: 02/26/17 09:27 Dose: 100 mg Glucagon (Glucagen Diagnostic Kit) 0 mg IM .STAT PRN; Protocol PRN Reason: Hypoglycemia Protocol Hydrochlorothiazide (Hydrodiuril) 25 mg PO DAILY [facility] Last Admin: 02/26/17 09:27 Dose: 25 mg Dextrose (Dextrose 5% In Water 1000 Ml) 1,000 mls @ 0 mls/hr IV .Q0M PRN; Protocol; Per Protocol PRN Reason: Hypoglycemia Protocol Potassium Chloride/Dextrose/Sod Cl (Potassium Chl 20 Meq In D5-1/2ns) 1,000 mls @ 100 mls/hr IV .Q10H [facility] Last Admin: 02/27/17 02:49 Dose: 100 mls/hr Insulin Human Regular (Novolin R) 0 unit SC ACHS [facility] PRN Reason: Protocol Last Admin: 02/26/17 22:06 Dose: Not Given Losartan Potassium (Cozaar) 100 mg PO DAILY [facility] Last Admin: 02/26/17 09:27 Dose: 100 mg Yhavv-4-Dhnb Ethyl Esters (Lovaza) 1 gm PO BID [facility] Last Admin: 02/26/17 17:14 Dose: 1 gm Pantoprazole Sodium (Protonix Ec Tab) 40 mg PO DAILY [facility] Last Admin: 02/26/17 09:27 Dose: 40 mg Rosuvastatin Calcium (Crestor) 10 mg PO HS [facility] Last Admin: 02/26/17 22:56 Dose: Not Given - Labs Labs: 02/27/17 08:48 02/27/17 08:48 PT 11.7 SECONDS (9.7-12.2) 02/25/17 08:31 INR 1.0 02/25/17 08:31 APTT 28 SECONDS (21-34) 02/25/17 08:31
--- NOTE | 2017-02-27 12:48 | CP.PCM.PN ---
<GarthjulioDeepakwarren - Last Filed: 02/27/17 17:55> Subjective - Date & Time of Evaluation Date of Evaluation: 02/27/17 Time of Evaluation: 12:46 - Subjective Subjective: Patient has been seen and examined. Patient opens eyes to sternal rub but did not respond verbally. No overnight events reported. Per daughter, patient is without bowel movement for 3 days. Objective - Vital Signs/Intake and Output Vital Signs (last 24 hours): Temp Pulse Resp BP Pulse Ox 99 F 76 98 H 168/99 H 96 02/27/17 08:50 02/27/17 08:50 02/27/17 11:22 02/27/17 11:22 02/27/17 08:50 - Medications Medications: Current Medications Acetaminophen (Tylenol 325mg Tab) 650 mg PO Q6 PRN PRN Reason: Pain, moderate (4-7) Acetaminophen/Butalbital/Caffeine (Fioricet) 1 tab PO TID PRN PRN Reason: Headache Albuterol (Ventolin Hfa 90 Mcg/Actuation (8 G)) 1 puff INH RQ6 PRN PRN Reason: Shortness of Breath Albuterol/Ipratropium (Duoneb 3 Mg/0.5 Mg (3 Ml) Ud) 3 ml INH RQ6 PRN PRN Reason: Wheezing Last Admin: 02/25/17 12:03 Dose: 3 ml Amlodipine Besylate (Norvasc) 5 mg PO DAILY [facility] Last Admin: 02/27/17 11:00 Dose: 5 mg Dextrose (Dextrose 50% Inj) 0 ml IVP .STAT PRN; Protocol PRN Reason: Hypoglycemia Protocol Dextrose (Glutose 15) 0 gm PO .ONCE PRN; Protocol PRN Reason: Hypoglycemia Protocol Docusate Sodium (Colace) 100 mg PO TID [facility] Last Admin: 02/27/17 11:00 Dose: 100 mg Gabapentin (Neurontin) 100 mg PO DAILY [facility] Last Admin: 02/27/17 11:00 Dose: 100 mg Glucagon (Glucagen Diagnostic Kit) 0 mg IM .STAT PRN; Protocol PRN Reason: Hypoglycemia Protocol Hydrochlorothiazide (Hydrodiuril) 25 mg PO DAILY [facility] Last Admin: 02/27/17 11:00 Dose: 25 mg Dextrose (Dextrose 5% In Water 1000 Ml) 1,000 mls @ 0 mls/hr IV .Q0M PRN; Protocol; Per Protocol PRN Reason: Hypoglycemia Protocol Potassium Chloride/Dextrose/Sod Cl (Potassium Chl 20 Meq In D5-1/2ns) 1,000 mls @ 100 mls/hr IV .Q10H [facility] Last Admin: 02/27/17 09:15 Dose: Not Given Insulin Human Regular (Novolin R) 0 unit SC ACHS [facility] PRN Reason: Protocol Last Admin: 02/26/17 22:06 Dose: Not Given Losartan Potassium (Cozaar) 100 mg PO DAILY [facility] Last Admin: 02/27/17 11:00 Dose: 100 mg Ptnyb-3-Kwhp Ethyl Esters (Lovaza) 1 gm PO BID [facility] Last Admin: 02/27/17 11:00 Dose: 1 gm Pantoprazole Sodium (Protonix Ec Tab) 40 mg PO DAILY [facility] Last Admin: 02/27/17 11:00 Dose: 40 mg Rosuvastatin Calcium (Crestor) 10 mg PO HS [facility] Last Admin: 02/26/17 22:56 Dose: Not Given - Labs Labs: 02/27/17 08:48 02/27/17 08:48 PT 11.7 SECONDS (9.7-12.2) 02/25/17 08:31 INR 1.0 02/25/17 08:31 APTT 28 SECONDS (21-34) 02/25/17 08:31 - Constitutional Appears: No Acute Distress - Head Exam Head Exam: ATRAUMATIC, NORMAL INSPECTION, NORMOCEPHALIC - Eye Exam Eye Exam: Normal appearance - ENT Exam ENT Exam: Mucous Membranes Moist - Respiratory Exam Respiratory Exam: Clear to Ausculation Bilateral. absent: Accessory Muscle Use , Rales, Rhonchi - Cardiovascular Exam Cardiovascular Exam: RRR, +S1, +S2 - GI/Abdominal Exam GI & Abdominal Exam: Soft. absent: Distended, Tenderness Assessment and Plan - Assessment and Plan (Free Text) Assessment: 66 year old female admitted for treatment of normal pressure hydrocephalus. HOSPITAL PHARMACIST Shunt repair on 02/25/17. Plan: 1). Hydrocephalus CT Head shows 02/24/17 dilataton of the lateral and third ventricles with mild effacement of the sulci/gyri, shows HOSPITAL PHARMACIST shunt malfunction. ShuntGram 02/24/17 shows intact HOSPITAL PHARMACIST Tubing. She is POD #1 HOSPITAL PHARMACIST Shunt Repair 02/25/[address] Head w/o contrast on 02/27/17 read Mild increase in extend of ventricular dilatation compared to 02/24/17 with evidence of transependymal resorption of CSF. Right frontal ventriculostomy catheter unchanged. No significant interval change. 02/27: Per neuro OP set of shunt reduced from 2.[address] tomorrow. 2). Hypokalemia (Resolved) 4.0 today 3). Hyponatremia Sodium 131 today. Fluids Stopped 3). Hx HTN Norvasc 5 mg PO 1x/day Valsartan/HCTZ 160/25 mg PO 1x/day 4). Hx DM 2 High ISS ACHS Gabapentin 100 mg PO 1x/day 5). Hx HLD Vascepa 1 gm PO 2x/day Crestor 10 mg PO HS 6). Hx Asthma Duoneb Q6H PRN 7). Prophylaxis Protonix 40 mg PO 1x/day HOLDING anticoagulation for now considering recent surgery Bilateral SCDs Heart Healthy 2gm Na Low Carb Diet PT/OT starting 02/27/17 Daughter Maribeth [phone] updated yesterday at bedside. Patient seen, discussed, and reviewed with Attending. Jordna Andrews PGY-1 <Marcos Tavares - Last Filed: 02/27/17 21:57> Objective - Vital Signs/Intake and Output Vital Signs (last 24 hours): Temp Pulse Resp BP Pulse Ox 97.9 F 85 20 151/99 H 97 02/27/17 16:30 02/27/17 16:30 02/27/17 16:30 02/27/17 16:30 02/27/17 16:30 - Medications Medications: Current Medications Acetaminophen (Tylenol 325mg Tab) 650 mg PO Q6 PRN PRN Reason: Pain, moderate (4-7) Acetaminophen/Butalbital/Caffeine (Fioricet) 1 tab PO TID PRN PRN Reason: Headache Albuterol (Ventolin Hfa 90 Mcg/Actuation (8 G)) 1 puff INH RQ6 PRN PRN Reason: Shortness of Breath Albuterol/Ipratropium (Duoneb 3 Mg/0.5 Mg (3 Ml) Ud) 3 ml INH RQ6 PRN PRN Reason: Wheezing Last Admin: 02/25/17 12:03 Dose: 3 ml Amlodipine Besylate (Norvasc) 5 mg PO DAILY [facility] Last Admin: 02/27/17 11:00 Dose: 5 mg Dextrose (Dextrose 50% Inj) 0 ml IVP .STAT PRN; Protocol PRN Reason: Hypoglycemia Protocol Dextrose (Glutose 15) 0 gm PO .ONCE PRN; Protocol PRN Reason: Hypoglycemia Protocol Docusate Sodium (Colace) 100 mg PO TID [facility] Last Admin: 02/27/17 18:05 Dose: Not Given Gabapentin (Neurontin) 100 mg PO DAILY [facility] Last Admin: 02/27/17 11:00 Dose: 100 mg Glucagon (Glucagen Diagnostic Kit) 0 mg IM .STAT PRN; Protocol PRN Reason: Hypoglycemia Protocol Hydrochlorothiazide (Hydrodiuril) 25 mg PO DAILY [facility] Last Admin: 02/27/17 11:00 Dose: 25 mg Insulin Human Regular (Novolin R) 0 unit SC ACHS [facility] PRN Reason: Protocol Last Admin: 02/27/17 18:21 Dose: 12 unit Losartan Potassium (Cozaar) 100 mg PO DAILY [facility] Last Admin: 02/27/17 11:00 Dose: 100 mg Ougro-0-Dpnb Ethyl Esters (Lovaza) 1 gm PO BID [facility] Last Admin: 02/27/17 18:25 Dose: 1 gm Pantoprazole Sodium (Protonix Ec Tab) 40 mg PO DAILY [facility] Last Admin: 02/27/17 11:00 Dose: 40 mg Rosuvastatin Calcium (Crestor) 10 mg PO HS [facility] Last Admin: 02/26/17 22:56 Dose: Not Given - Labs Labs: 02/27/17 08:48 02/27/17 08:48 PT 11.7 SECONDS (9.7-12.2) 02/25/17 08:31 INR 1.0 02/25/17 08:31 APTT 28 SECONDS (21-34) 02/25/17 08:31 Attending/Attestation - Attestation I have personally seen and examined this patient.: Yes I have fully participated in the care of the patient.: Yes I have reviewed all pertinent clinical information, including history, physical exam and plan: Yes Notes (Text): 02/27/17 21:48 Patient was seen and examined at 6:30 PM 568 A 02/27/17 Exam, assessment and plan were thoroughly gone over with the resident. ROS could not be performed secondary to patient not responding to questioning. She is asleep and will not open her eyes but does respond to chest rub by taking her left arm and grabbing hold of my hand. Her Daughter Maribeth [phone] was at bedside and she explains that the patient did eat oatmeal today as well as had some soup with lunch. However, I have asked Maribeth not to feed patient in her lethargic state for fear of aspiration. General:NOT responsive to questioning and not following commands HEENT: NCA, Pupils are round/equal and reactive to light, NO cervical lymphadenopathy, NO thyromegaly, Could NOT visualize pharynx as not opening mouth Cardio: NS1 and NS2, NO M/R/G Resp: CTA B/L NO R/R/W but this is limited by patient not taking in deep breaths GI: BSx4 are reduced, Soft, Central Obesity therefore liver and spleen could not be adequately palpated, NT, NO guarding/rebound tenderness Ext: Pulses are strong and equal, Capillary Refill is 2 seconds, Right arm non pitting edema with bruising on the inner aspect at the site of former IV access Neuro: Coud NOT be performed due to patient status Assessments: 1). Hydrocephalus: S/P HOSPITAL PHARMACIST Shunt repair 02/26/17. F/U CT Head without contrast # 3 on morning 02/28/17. Neurosurgeons Drs. Hancock/Jessica 2). Hypokalemia 3). Hyponatremia 4). Hx DM 2: nurses were not given the required rapid acting insulin as per ISS because they believed that it should not be given as patient was not eating. However I explained to Nurse Kimberly that the ISS must be followed and she expressed understanding. The ISS was changed to High Dose. 5). Hx HLD 6). Hx Asthma Medicine Team: Please speak with PT/OT and get them on board once patient is awake and able to participate in PT/OT Speak with Liability Claims Examiner Siria to get the process of ARGELIA placement started as the patient will likely need physical therapy rehab. Marcos Tavares D.O.
[2017-02-28] MEDS: (Novolin R) Insulin Human Regular 100 units/ml vial SC SCH ×4 (08:30→21:42)
[2017-02-28] MEDS: Pantoprazole 40 mg EC Tab PO SCH (11:08)
[2017-02-28] MEDS: Omega-3-Acid Ethyl Esters 1 GM Cap PO SCH ×2 (11:09→17:29)
--- NOTE | 2017-02-28 11:38 | CT ---
PROCEDURE: CT HEAD WITHOUT CONTRAST. HISTORY: f/u COMPARISON: Unenhanced head CT 02/27/2017 TECHNIQUE: Axial computed tomography images were obtained through the head/brain without intravenous contrast. Radiation dose: Total exam DLP = 844.88 mGy-cm. This CT exam was performed using one or more of the following dose reduction techniques: Automated exposure control, adjustment of the mA and/or kV according to patient size, and/or use of iterative reconstruction technique. FINDINGS: HEMORRHAGE: No intracranial hemorrhage. BRAIN: Mild diffuse cerebral atrophy is reiterated as well as limited transependymal edema and mild chronic microangiopathy. No interval cortical edema is identified throughout. VENTRICLES: Right frontal shunt unchanged in placement with skin clayton again noted at the right frontal and parietal scalp. Ventriculomegaly appears unchanged throughout all ventricles once again. CALVARIUM: Right frontal ventriculostomy sarina hole noted again. PARANASAL SINUSES: Unremarkable as visualized. No significant inflammatory changes. MASTOID AIR CELLS: Unremarkable as visualized. No inflammatory changes. OTHER FINDINGS: None. IMPRESSION: Stable hydrocephalus with right frontal shunt unchanged in appearance. Transependymal edema remains mild. Age related neuro degenerative changes again identified.
[2017-02-28 12:05] LABS: BASO % 0.4 % (0.0-2.0); EOS % 0.5 % (0.0-4.0); HEMATOCRIT 37.4 % (34.0-47.0); LYMPH # 1.2 K/uL (1.0-4.3); LYMPH % 11.2 % (20.0-40.0); MEAN CELL VOLUME 89.7 fL (81.0-99.0); MEAN CORPUSCULAR HEMOGLOBIN 30.4 pg (27.0-31.0); MEAN CORPUSCULAR HGB CONC 33.9 g/dL (33.0-37.0); MEAN PLATELET VOLUME 8.3 fL (7.2-11.7); MONO # 0.6 K/uL (0.0-0.8); MONO % 5.8 % (0.0-10.0); RED CELL DISTRIBUTION WIDTH 13.7 % (11.5-14.5); WHITE BLOOD COUNT 10.3 K/uL (4.8-10.8)
[2017-02-28 12:08] LABS: POTASSIUM 3.9 mmol/L (3.6-5.2)
[2017-02-28 12:11] LABS: TOTAL PROTEIN 6.8 g/dL (6.3-8.3)
[2017-02-28 12:12] LABS: CALCIUM 8.8 mg/dl (8.6-10.4)
--- NOTE | 2017-02-28 13:58 | CP.PCM.PN ---
Subjective - Date & Time of Evaluation Date of Evaluation: 02/28/17 Time of Evaluation: 13:50 - Subjective Subjective: still not back to baseline opens eyes to voice moving all ext well eating intermittently ct no change na is 128 hyperglycemic,elevated BUN,creatinine ? metabolic suggested re-evaluating evp and chief operating officer shunt to family - situation unclear as system was working perfectly in or Objective - Vital Signs/Intake and Output Vital Signs (last 24 hours): Temp Pulse Resp BP Pulse Ox 98.5 F 95 H 20 154/95 H 96 02/28/17 08:28 02/28/17 08:28 02/28/17 08:28 02/28/17 08:28 02/28/17 08:28 - Medications Medications: Current Medications Acetaminophen (Tylenol 325mg Tab) 650 mg PO Q6 PRN PRN Reason: Pain, moderate (4-7) Acetaminophen/Butalbital/Caffeine (Fioricet) 1 tab PO TID PRN PRN Reason: Headache Albuterol (Ventolin Hfa 90 Mcg/Actuation (8 G)) 1 puff INH RQ6 PRN PRN Reason: Shortness of Breath Albuterol/Ipratropium (Duoneb 3 Mg/0.5 Mg (3 Ml) Ud) 3 ml INH RQ6 PRN PRN Reason: Wheezing Last Admin: 02/25/17 12:03 Dose: 3 ml Amlodipine Besylate (Norvasc) 5 mg PO DAILY [facility] Last Admin: 02/28/17 11:07 Dose: 5 mg Dextrose (Dextrose 50% Inj) 0 ml IVP .STAT PRN; Protocol PRN Reason: Hypoglycemia Protocol Dextrose (Glutose 15) 0 gm PO .ONCE PRN; Protocol PRN Reason: Hypoglycemia Protocol Docusate Sodium (Colace) 100 mg PO TID [facility] Last Admin: 02/28/17 11:09 Dose: Not Given Gabapentin (Neurontin) 100 mg PO DAILY [facility] Last Admin: 02/28/17 11:07 Dose: 100 mg Glucagon (Glucagen Diagnostic Kit) 0 mg IM .STAT PRN; Protocol PRN Reason: Hypoglycemia Protocol Hydrochlorothiazide (Hydrodiuril) 25 mg PO DAILY [facility] Last Admin: 02/28/17 11:08 Dose: 25 mg Insulin Human Regular (Novolin R) 0 unit SC ACHS [facility] PRN Reason: Protocol Last Admin: 02/28/17 12:30 Dose: 10 unit Losartan Potassium (Cozaar) 100 mg PO DAILY [facility] Last Admin: 02/28/17 11:08 Dose: 100 mg Rbxmv-3-Espf Ethyl Esters (Lovaza) 1 gm PO BID [facility] Last Admin: 02/28/17 11:09 Dose: 1 gm Pantoprazole Sodium (Protonix Ec Tab) 40 mg PO DAILY [facility] Last Admin: 02/28/17 11:08 Dose: 40 mg Rosuvastatin Calcium (Crestor) 10 mg PO [facility] Last Admin: 02/27/17 22:12 Dose: 10 mg - Labs Labs: 02/28/17 11:53 02/28/17 11:53 PT 11.7 SECONDS (9.7-12.2) 02/25/17 08:31 INR 1.0 02/25/17 08:31 APTT 28 SECONDS (21-34) 02/25/17 08:31
--- NOTE | 2017-02-28 14:26 | CP.PCM.PN ---
Subjective - Date & Time of Evaluation Date of Evaluation: 02/28/17 Time of Evaluation: 11:20 - Subjective Subjective: Medical Attending Note: Patient seen and examined at bedside with daughter and nurse at bedside. Per discussion with daughter, patient primarily lives alone with patient's brother who sometimes visit. Patient has a history wherein she had OIL CHANGE TECHNICIAN shunt placed in 2014 for hydrocephalus. Patient has not appeared like herself per discussion with daughter; since starting the summer. Per daughter, patient is normally awake, alert, and is supposed to walk with cane but patient chooses to not use the cane. Patient has had moments where she dozes off but nothing like as seen presently. Patient has two falls recently about last Monday. Compared to yesterday, per daughter, patient is little bit more alert. Patient is seen with nursing as feeding dysphagia diet at bedside. Patient is lethargic , mutters but does not conversant with me, will track with her eyes, +gag reflex , can raise both her arms but strength is 3-4/5 bilateral. Per daughter, patient mainly takes care of herself at home. Objective - Vital Signs/Intake and Output Vital Signs (last 24 hours): Temp Pulse Resp BP Pulse Ox 98.5 F 95 H 20 154/95 H 96 02/28/17 08:28 02/28/17 08:28 02/28/17 08:28 02/28/17 08:28 02/28/17 08:28 - Medications Medications: Current Medications Acetaminophen (Tylenol 325mg Tab) 650 mg PO Q6 PRN PRN Reason: Pain, moderate (4-7) Acetaminophen/Butalbital/Caffeine (Fioricet) 1 tab PO TID PRN PRN Reason: Headache Albuterol (Ventolin Hfa 90 Mcg/Actuation (8 G)) 1 puff INH RQ6 PRN PRN Reason: Shortness of Breath Albuterol/Ipratropium (Duoneb 3 Mg/0.5 Mg (3 Ml) Ud) 3 ml INH RQ6 PRN PRN Reason: Wheezing Last Admin: 02/25/17 12:03 Dose: 3 ml Amlodipine Besylate (Norvasc) 5 mg PO DAILY [facility] Last Admin: 02/28/17 11:07 Dose: 5 mg Dextrose (Dextrose 50% Inj) 0 ml IVP .STAT PRN; Protocol PRN Reason: Hypoglycemia Protocol Dextrose (Glutose 15) 0 gm PO .ONCE PRN; Protocol PRN Reason: Hypoglycemia Protocol Docusate Sodium (Colace) 100 mg PO TID [facility] Last Admin: 02/28/17 11:09 Dose: Not Given Gabapentin (Neurontin) 100 mg PO DAILY [facility] Last Admin: 02/28/17 11:07 Dose: 100 mg Glucagon (Glucagen Diagnostic Kit) 0 mg IM .STAT PRN; Protocol PRN Reason: Hypoglycemia Protocol Hydrochlorothiazide (Hydrodiuril) 25 mg PO DAILY [facility] Last Admin: 02/28/17 11:08 Dose: 25 mg Insulin Human Regular (Novolin R) 0 unit SC ACHS [facility] PRN Reason: Protocol Last Admin: 02/28/17 12:30 Dose: 10 unit Losartan Potassium (Cozaar) 100 mg PO DAILY [facility] Last Admin: 02/28/17 11:08 Dose: 100 mg Nxuva-2-Mgpm Ethyl Esters (Lovaza) 1 gm PO BID [facility] Last Admin: 02/28/17 11:09 Dose: 1 gm Pantoprazole Sodium (Protonix Ec Tab) 40 mg PO DAILY [facility] Last Admin: 02/28/17 11:08 Dose: 40 mg - Labs Labs: 02/28/17 11:53 02/28/17 11:53 PT 11.7 SECONDS (9.7-12.2) 02/25/17 08:31 INR 1.0 02/25/17 08:31 APTT 28 SECONDS (21-34) 02/25/17 08:31 - Constitutional Appears: Non-toxic, Confused, Chronically Ill - Head Exam Additional comments: has clayton over the right temporal aspect of head, No dressing, appears clean/ dry/intact, no drainage noted - Eye Exam Eye Exam: EOMI, PERRL. absent: Nystagmus, Scleral icterus Pupil Exam: PERRL. absent: Fixed, Irregular, Miosis, Unequal - ENT Exam ENT Exam: Mucous Membranes Dry - Respiratory Exam Respiratory Exam: Decreased Breath Sounds, NORMAL BREATHING PATTERN. absent: Rales, Rhonchi, Stridor - Cardiovascular Exam Cardiovascular Exam: REGULAR RHYTHM, +S1, +S2 - GI/Abdominal Exam GI & Abdominal Exam: Distended, Normal Bowel Sounds. absent: Firm, Guarding, Rigid, Soft, Tenderness, Rebound Additional comments: Shunt dressing: right upper quadrant dry/intact/old dressing - Extremities Exam Extremities Exam: Normal Capillary Refill. absent: Pedal Edema, Tenderness Additional comments: right upper extremity: non-pitting; bruise - Neurological Exam Neuro motor strength exam: Left Upper Extremity: 4, Right Upper Extremity: 4, Left Lower Extremity: 4, Right Lower Extremity: 4 Additional comments: Patient waxes and wanes at bedside. Will open eyes and try to speak but then doozes off +gag reflex negative Babinski b/l will wiggle toes will passively move upper extremities Pupils are equal and reactive to light patient does track eyes when leaving room unable to perform cranial nerve exam give patient's mental status Assessment and Plan - Assessment and Plan (Free Text) Assessment: Assessment/Plan 1). Hydrocephalus: S/P OIL CHANGE TECHNICIAN Shunt repair 02/26/17. * History of OIL CHANGE TECHNICIAN shunt in 2015 * Neurosurgery: Dr Hancock/Ella on board * Management per neurosurgery * CT Head (02/24/17): shunt malfunction * Shuntogram (02/24/17): ventricular catheter entering from a right sided approac, visualized extracranial tubing intact * Operative note (02/26/17): emergency revision of OIL CHANGE TECHNICIAN shunt * CSF (02/25/17): No growth after 3 days * CT Head (02/27/17): mild increase in extent of ventricular dilatation compared to 02/24/17 with evidence of transependymal resorption of CSF. Right frontal ventriculostomy catheter, unchanged. No other significant interval change. * CT head (02/28/17): stable hydrocephalus with right frontal shunt unchanged in appearance. Transependymal edema remains mild. Age related neuro degenerative changes again identified * per neurosurgery, possible Re-eval OIL CHANGE TECHNICIAN shunt per note 02/28/17 * Per neurosurgery, patient ordered for dose of Gentamcin and Vancomycin 02/28 * Will consult neurology (Dr. Rose) r/o cause of metabolic encephalopathy * Prior urine culture is negative * Ordered for blood cultures X2 2). Hypokalemia * within normal 3). Hyponatremia * downtrending * Order for serum osmolarity, urine osmolarity, and urine osm 4). Acute Renal Failure * Nephrology (Dr. Blood) on boar * Will check bladder scan r/o urinary retention * Ordered Renal US * Ordered serum osmolarity, urine osmolarity, and urine sodium * intake and outpatient * held Statin, held thiazide diuretic in light of acute rise in Renal Failure * Note elevated Cr prior to gentamicin and Vancomycin * Follow-up urinary output 5). Hx DM 2 * Uncontrolled diabetes * Patient is on dysphagia low carb diet * Accuchecks QAC and HS * High Dose insulin sliding scale * Start Lantus 10 units subqHS * Check hemoglobin a1c and Lipid panel in AM 6). Hx HLD * Check Lipid Panel in AM * Held Statin in light of renal failure * [place] 3 acid 1 gm PO bid 7). Hx Asthma * Will check Chest xray as baseline 8). Hx of Hypertension * D/c HCTZ in light of hyponatremia * C/w Cozaar 100mg PO daily * c/w Norvasc 5mg PO daily 8) Constipation * has not had bowel movement in 4 days * Ordered for Ducolax [place] * Follow-up BM 9) Prophylactic measure * Contraindications to chemical anticoagulation given neurosurgical intervention * Protonix 40mg PO daily * Aspiration Precautions * Head of Bed 30 degrees * PT/OT eval Disposition: * Nephrology and neurology consult * Check blood cultures and chest xray r/o infection * optimize blood sugar control * f/u neurosurgery * check bladder scan r/o urinary retention
[2017-02-28 17:13] LABS: BASO % 0.5 % (0.0-2.0); EOS # 0.1 K/uL (0.0-0.7); EOS % 1.1 % (0.0-4.0); HEMATOCRIT 37.8 % (34.0-47.0); LYMPH # 1.1 K/uL (1.0-4.3); LYMPH % 11.2 % (20.0-40.0); MEAN CELL VOLUME 89.1 fL (81.0-99.0); MEAN CORPUSCULAR HEMOGLOBIN 29.9 pg (27.0-31.0); MEAN CORPUSCULAR HGB CONC 33.5 g/dL (33.0-37.0); MEAN PLATELET VOLUME 8.2 fL (7.2-11.7); MONO # 0.5 K/uL (0.0-0.8); MONO % 4.8 % (0.0-10.0); RED CELL DISTRIBUTION WIDTH 13.6 % (11.5-14.5); WHITE BLOOD COUNT 9.9 K/uL (4.8-10.8)
--- NOTE | 2017-02-28 17:22 | RAD ---
HISTORY: hx of asthma COMPARISON: Chest x-ray performed 10/29/15 TECHNIQUE: Chest, one view. FINDINGS: Examination limited by habitus. Two catheters project over the right jossue thorax, upper abdomen and neck consistent with MEDICAL STENOGRAPHER shunt. LUNGS: No focal consolidation. Please note that chest x-ray has limited sensitivity for the detection of pulmonary masses. PLEURA: No significant pleural effusion identified. No definite pneumothorax . CARDIOVASCULAR: Heart size appears within normal limits. OSSEOUS STRUCTURES: Degenerative changes of the spine. VISUALIZED UPPER ABDOMEN: Mild elevation of the right hemidiaphragm. Right upper quadrant surgical clips. OTHER FINDINGS: None. IMPRESSION: Two catheters project over the right jossue thorax, upper abdomen and neck consistent with MEDICAL STENOGRAPHER shunt.
[2017-02-28 17:24] LABS: POTASSIUM 3.7 mmol/L (3.6-5.2)
[2017-02-28 17:27] LABS: CALCIUM 8.7 mg/dl (8.6-10.4)
[2017-02-28] MEDS: (Lantus) Insulin Glargine, Recombinant SC SCH (21:42)
[2017-02-28] MEDS: Sodium Chloride 0.9% 1,000 ML IV SCH (21:50)
--- NOTE | 2017-03-01 05:07 | CON ---
NEPHROLOGY CONSULTATION DATE: HISTORY OF PRESENT ILLNESS: A 66-year-old female with past medical history of hypertension, diabetes, asthma, hyperlipidemia, and previous COURT INTERPRETER shunt placed in 2012, presented with increasing weakness and dizziness as well as altered mental status for the past day prior to presentation. The patient found to have symptomatic hydrocephalus secondary to COURT INTERPRETER shunt malfunction; neurosurgery service was consulted and the patient was taken for emergency revision of COURT INTERPRETER shunt two days ago; Nephrology now being consulted for acute renal failure. The patient's history is taken mainly from family as the patient is currently obtunded; family states that the patient had been in her usual state of health up until day before presentation. The patient was having difficulty walking and even had a fall; family also noted that the patient would be speaking in a manner that was not coherent and did not make sense; the patient underwent COURT INTERPRETER shunt revision with operative note mentioning that CSF fluid was flowing well through peritoneal end of the catheter. The patient was noted to be following commands after the procedure and her family was able to be fed up until yesterday with the patient even able to talk; however, today her mental status is worse and she has not able to eat at all as then mostly obtunded with the patient only being arousable to tactile stimuli. The patient's serum creatinine noted to have jumped from 0.8 yesterday to 2.9 this morning; the patient has no known history of any kidney disease; no systemic nephrotoxic agents were administered to the patient (vancomycin and gentamicin were only given into the shunt); the patient was noted to be urinating well via [employer] collection system, however as noted to be anuric today; bladder ultrasound done today showing markedly distended bladder. PAST MEDICAL HISTORY: As above. SOCIAL HISTORY: Never smoked. FAMILY HISTORY: No history of kidney disease in her family. REVIEW OF SYSTEMS: Limited due to the patient being obtunded. CONSTITUTIONAL: Had been eating well up until surgical procedure. CARDIOVASCULAR: Her family has no history of cardiac disease. No complaint of chest pain or palpitation. RESPIRATORY: History of asthma, using nebulizer intermittently with mild dyspnea on walking at baseline. PHYSICAL EXAMINATION: VITAL SIGNS: This afternoon; blood pressure 138/85, heart rate 92, respirations 18, temperature 98.1, and O2 sat 95% on O2 via nasal cannula. GENERAL: No distress. Lying comfortably, asleep. HEENT: Moist mucous membranes. Nonicteric. Pupils unequal. RESPIRATORY: Lungs are clear to auscultation bilaterally. No rales. No rhonchi. No wheezes. CARDIOVASCULAR: Heart sounds S1 and S2 normal. No murmurs. No gallops. No rubs. ABDOMEN: Soft and obese. GENITOURINARY: Difficult to appreciate bladder distention due to obesity. SKIN: Warm. No cyanosis. EXTREMITIES: No significant leg edema. NEUROLOGIC: The patient is moving bilateral upper and lower extremities, withdrawals to pain, otherwise not responsive to verbal stimuli. LABORATORY DATA: This morning CBC; WBC 10.3, hemoglobin 12.7, hematocrit 37.4, and platelets 173. Chemistry panel: Sodium 128, potassium 3.9, chloride 98, bicarb 17, BUN 30, creatinine 2.9, glucose 427, calcium 8.8, and albumin 3.5. UA on presentation; specific gravity 1.005, negative protein. Renal ultrasound, no overt hydronephrosis appreciated, however does have markedly distended bladder. ASSESSMENT AND PLAN: 1. Acute renal failure, unclear at this point as this is purely obstructive nephropathy in the setting of neurogenic bladder with bladder markedly distended, however, with no gross hydronephrosis noted on renal ultrasound; the patient with mild mostly nonanion gap metabolic acidosis in the setting of acute renal failure; otherwise, potassium is stable, volume status is stable, and no indication for renal replacement therapy at this time. -Agree with inserting Fernandez. -Checking urine lytes, urine sodium, urine creatinine, and urine urea level. -Checking complements. -If renal function does not significantly improve after Fernandez placement, we will need further workup to look for causes of sudden acute renal failure. 2. Hypertension, blood pressure fluctuating, currently on amlodipine 5 mg daily and losartan 100 mg daily and hydrochlorothiazide held. -Recommend to avoid tight blood pressure control; (keep SBP between 140 and 150). -Hold losartan as well as this medication causes loss of renal autoregulation. 3. Hyponatremia component of dilutional hyponatremia present due to hyperglycemia; may also have an element of volume depletion; awaiting urine lytes (urine sodium and osmolality). -continue NS at 100 cc/hr Vladimir Urrutia MD MTDD
[2017-03-01] MEDS ORDERED: Lidocaine 1% Inj (20ml) ONE (06:15)
[2017-03-01] MEDS ORDERED: Absorbable Gelatin Sponge Size 100 ONE (06:15)
[2017-03-01] MEDS ORDERED: cefTRIAXone IV 1 gm in Dextros 0 ML IVPB ONE (06:15)
[2017-03-01] MEDS ORDERED: Thrombin Topical 5,000 IU Spray Kit ONE (06:15)
[2017-03-01] MEDS ORDERED: Bacitracin Ointment 30 GM TUBE ONE (06:15)
[2017-03-01] MEDS: Albuterol-Ipratrop 3 mg / 0.5 (3 ml) UD INH PRN ×2 (06:26→12:55)
[2017-03-01 07:56] LABS: INR 1.1
[2017-03-01 07:59] LABS: BASO % 0.7 % (0.0-2.0); EOS # 0.3 K/uL (0.0-0.7); EOS % 3.7 % (0.0-4.0); HEMATOCRIT 33.2 % (34.0-47.0); LYMPH # 1.8 K/uL (1.0-4.3); LYMPH % 24.6 % (20.0-40.0); MEAN CELL VOLUME 88.6 fL (81.0-99.0); MEAN CORPUSCULAR HEMOGLOBIN 30.7 pg (27.0-31.0); MEAN CORPUSCULAR HGB CONC 34.7 g/dL (33.0-37.0); MEAN PLATELET VOLUME 8.4 fL (7.2-11.7); MONO # 0.6 K/uL (0.0-0.8); MONO % 7.8 % (0.0-10.0); RED CELL DISTRIBUTION WIDTH 13.7 % (11.5-14.5); WHITE BLOOD COUNT 7.5 K/uL (4.8-10.8)
--- NOTE | 2017-03-01 08:13 | US ---
PROCEDURE: Ultrasound of the Kidneys HISTORY: acute renal failure; check post void residual COMPARISON: None available. TECHNIQUE: Sonogram of the kidneys. FINDINGS: Body habitus limits the quality of this examination significantly. RIGHT KIDNEY: Measures: 10.2 x 4.1 x 5.2 cm. Normal in size, contour and general echogenicity. No definitive stone, solid mass lesion or hydronephrosis visualized. Unable to accurately evaluate cortex and medullary differentiation. LEFT KIDNEY: Measures: 10.3 x 5.2 x 4.5 cm. Normal in size, contour and general echogenicity. No definitive stone, solid mass lesion or hydronephrosis visualized. Unable to accurately evaluate cortex and medullary differentiation. OTHER FINDINGS: Urinary bladder is distended and smooth walled without nodularity or gross diverticular change. No septation is related or urolithiasis. Prevoid volume measures just under 1 L at 994 cc. Technologist was unable to around the patient from sleep to avoid. IMPRESSION: Limited but unremarkable bilateral renal sonography. No hydronephrosis appreciated bilaterally. Body habitus limits evaluation of the cortical medullary differentiation. Urinary bladder is distended to 994 cc with the patient not able to be aroused to be asked to void.
[2017-03-01 08:25] LABS: RBC URINE < 1 /hpf (0-3); URINE BILIRUBIN NEGATIVE (NEGATIVE); URINE BLOOD 1+ (NEGATIVE); URINE COLOR Yellow (YELLOW); URINE GLUCOSE (UA) 3+ mg/dL (Normal); URINE KETONE NEGATIVE (NEGATIVE); URINE LEUKOCYTE ESTERASE NEG Leu/uL (Negative); URINE PROTEIN NEGATIVE (NEGATIVE); URINE UROBILINOGEN NORMAL mg/dL (0.2-1.0); WBC URINE 1 /hpf (0-5)
[2017-03-01] MEDS ORDERED: Lidocaine 1%/Epinephrine 1:100000 30 ml vial IJ ONE (08:30)
[2017-03-01] MEDS: Sodium Chloride 0.9% 1,000 ML IV SCH ×3 (08:32→20:24)
[2017-03-01 08:34] LABS: POTASSIUM 2.9 mmol/L (3.6-5.2)
[2017-03-01 08:37] LABS: ALB/GLOB RATIO 0.9 (1.0-2.1); BILIRUBIN,TOTAL 0.8 mg/dL (0.2-1.3); CALCIUM 8.8 mg/dl (8.6-10.4); TOTAL PROTEIN 6.1 g/dL (6.3-8.3)
[2017-03-01] MEDS ORDERED: Vancomycin 10 MG in Sodium Chloride 0.9% 1 ML IN ONE (09:00)
[2017-03-01] MEDS ORDERED: Gentamicin Sulfate 10 MG in Sodium Chloride 0.9% 1 ML IN ONE (09:00)
[2017-03-01] MEDS ORDERED: Midazolam 2 MG/2 ML VIAL ONE (09:01)
[2017-03-01] MEDS ORDERED: Propofol 10 mg/ml Inj (20 ML) ONE (09:01)
--- NOTE | 2017-03-01 09:24 | CP.PCM.PN ---
Subjective - Date & Time of Evaluation Date of Evaluation: 03/01/17 Time of Evaluation: 09:21 - Subjective Subjective: pt suddenly markedly improved awake alert o x 3 naming objects following all commands obviously agree with cancelling surgery resume diet oob,PT recheck CT tmw Objective - Vital Signs/Intake and Output Vital Signs (last 24 hours): Temp Pulse Resp BP Pulse Ox 97.5 F L 90 18 129/79 95 03/01/17 07:25 03/01/17 07:25 03/01/17 07:25 03/01/17 07:25 03/01/17 07:25 Intake and Output: 03/01/17 03/01/17 06:59 18:59 Intake Total 1100 Output Total 2600 Balance -1500 - Medications Medications: Current Medications Acetaminophen (Tylenol 325mg Tab) 650 mg PO Q6 PRN PRN Reason: Pain, moderate (4-7) Albuterol/Ipratropium (Duoneb 3 Mg/0.5 Mg (3 Ml) Ud) 3 ml INH RQ6 PRN PRN Reason: Wheezing Last Admin: 03/01/17 06:26 Dose: 3 ml Amlodipine Besylate (Norvasc) 5 mg PO DAILY [facility] Last Admin: 02/28/17 11:07 Dose: 5 mg Dextrose (Dextrose 50% Inj) 0 ml IVP .STAT PRN; Protocol PRN Reason: Hypoglycemia Protocol Dextrose (Glutose 15) 0 gm PO .ONCE PRN; Protocol PRN Reason: Hypoglycemia Protocol Docusate Sodium (Colace) 100 mg PO TID [facility] Last Admin: 02/28/17 18:00 Dose: Not Given Gabapentin (Neurontin) 100 mg PO DAILY [facility] Last Admin: 02/28/17 11:07 Dose: 100 mg Glucagon (Glucagen Diagnostic Kit) 0 mg IM .STAT PRN; Protocol PRN Reason: Hypoglycemia Protocol Sodium Chloride (Sodium Chloride 0.9%) 1,000 mls @ 100 mls/hr IV .Q10H [facility] Last Admin: 03/01/17 08:32 Dose: 100 mls/hr Potassium Chloride (Potassium Chloride 20 Meq/100 Ml) 20 meq in 100 mls @ 50 mls/hr IVPB ONCE ONE Stop: 03/01/17 11:18 Insulin Glargine (Lantus) 10 unit SC HS [facility] Last Admin: 02/28/17 21:42 Dose: 10 units Insulin Human Regular (Novolin R) 0 unit SC ACHS [facility] PRN Reason: Protocol Last Admin: 02/28/17 21:42 Dose: 2 unit Owbju-8-Wuxa Ethyl Esters (Lovaza) 1 gm PO BID [facility] Last Admin: 02/28/17 17:29 Dose: 1 gm Pantoprazole Sodium (Protonix Ec Tab) 40 mg PO DAILY [facility] Last Admin: 02/28/17 11:08 Dose: 40 mg - Labs Labs: 03/01/17 07:37 03/01/17 07:37 PT 12.8 SECONDS (9.7-12.2) H 03/01/17 07:37 INR 1.1 03/01/17 07:37 APTT 24 SECONDS (21-34) 03/01/17 07:37
[2017-03-01] MEDS: (Novolin R) Insulin Human Regular 100 units/ml vial SC SCH ×4 (09:37→21:29)
[2017-03-01] MEDS: Omega-3-Acid Ethyl Esters 1 GM Cap PO SCH ×2 (09:40→18:07)
[2017-03-01] MEDS: Pantoprazole 40 mg EC Tab PO SCH (09:40)
--- NOTE | 2017-03-01 14:35 | RAD ---
PROCEDURE: Radiographs of the chest and abdomen (obstructive series) HISTORY: Abdominal Distension COMPARISON: No prior. TECHNIQUE: AP radiograph of the chest, with upright and supine radiographs of the abdomen. FINDINGS: CHEST: No definite acute infiltrate, pleural effusion or pneumothorax identified. Cardiac silhouette appears normal size the trachea is midline. Right-sided ventriculoperitoneal shunt catheter identified along the right neck thoracic and abdominal soft tissues. ABDOMEN AND PELVIS: Bowel: Distended large bowel loops are appreciated on relatively diffuse basis without significant small bowel dilatation. The pattern may reflect large bowel ileus. No gross free intrarenal gas identified. Surgical clips in the right upper quadrant abdomen which may be the etiology for the ileus. Clinically correlate further. No definitive abnormal intra-abdominal calcifications. Surgical clips in the right upper quadrant are better seen on the 02/24/2017 shuntogram than on the current obstructive series. Free air: None. Bones: Unremarkable. Other findings: None. IMPRESSION: Prominent large bowel loops are appreciate suggesting probable large bowel ileus though a distal large bowel obstruction is not completely excluded. Surgical clips identified right upper quadrant skin as well as right-sided ventriculoperitoneal shunt catheter. Clinically correlate further. No gross free intraperitoneal gas. Nonacute appearing chest radiograph.
--- NOTE | 2017-03-01 15:49 | CP.PCM.PN ---
"<Jordan Andrews - Last Filed: 03/01/17 16:57> Subjective - Date & Time of Evaluation Date of Evaluation: 03/01/17 Time of Evaluation: 15:49 - Subjective Subjective: Patient has been seen and examined. Daughter was at bedside. NO overnight events reported. Patient is now responsive. She denies any fever, SOB, chest pain, abdominal pain, N/V/D, constipation. Objective - Vital Signs/Intake and Output Vital Signs (last 24 hours): Temp Pulse Resp BP Pulse Ox 97.5 F L 83 18 129/79 98 03/01/17 07:25 03/01/17 12:00 03/01/17 07:25 03/01/17 07:25 03/01/17 11:28 Intake and Output: 03/01/17 03/01/17 06:59 18:59 Intake Total 1100 Output Total 2600 Balance -1500 - Medications Medications: Current Medications Acetaminophen (Tylenol 325mg Tab) 650 mg PO Q6 PRN PRN Reason: Pain, moderate (4-7) Last Admin: 03/01/17 12:19 Dose: 650 mg Albuterol/Ipratropium (Duoneb 3 Mg/0.5 Mg (3 Ml) Ud) 3 ml INH RQ6 PRN PRN Reason: Wheezing Last Admin: 03/01/17 12:55 Dose: 3 ml Amlodipine Besylate (Norvasc) 5 mg PO DAILY [facility] Last Admin: 03/01/17 09:40 Dose: 5 mg Dextrose (Dextrose 50% Inj) 0 ml IVP .STAT PRN; Protocol PRN Reason: Hypoglycemia Protocol Dextrose (Glutose 15) 0 gm PO .ONCE PRN; Protocol PRN Reason: Hypoglycemia Protocol Docusate Sodium (Colace) 100 mg PO TID [facility] Last Admin: 03/01/17 13:28 Dose: Not Given Gabapentin (Neurontin) 100 mg PO DAILY [facility] Last Admin: 03/01/17 09:40 Dose: 100 mg Glucagon (Glucagen Diagnostic Kit) 0 mg IM .STAT PRN; Protocol PRN Reason: Hypoglycemia Protocol Sodium Chloride (Sodium Chloride 0.9%) 1,000 mls @ 100 mls/hr IV .Q10H [facility] Last Admin: 03/01/17 12:50 Dose: Not Given Insulin Glargine (Lantus) 10 unit SC HS [facility] Last Admin: 02/28/17 21:42 Dose: 10 units Insulin Human Regular (Novolin R) 0 unit SC ACHS [facility] PRN Reason: Protocol Last Admin: 03/01/17 12:26 Dose: 331 unit Vuiro-4-Nkkg Ethyl Esters (Lovaza) 1 gm PO BID [facility] Last Admin: 03/01/17 09:40 Dose: 1 gm Pantoprazole Sodium (Protonix Ec Tab) 40 mg PO DAILY [facility] Last Admin: 03/01/17 09:40 Dose: 40 mg - Labs Labs: 03/01/17 07:37 03/01/17 07:37 PT 12.8 SECONDS (9.7-12.2) H 03/01/17 07:37 INR 1.1 03/01/17 07:37 APTT 24 SECONDS (21-34) 03/01/17 07:37 - Head Exam Additional comments: has clayton over the right temporal aspect of head, No dressing, appears clean/ dry/intact, no drainage noted - Eye Exam Eye Exam: Normal appearance, PERRL. absent: EOMI - ENT Exam ENT Exam: Mucous Membranes Moist - Respiratory Exam Respiratory Exam: Clear to Ausculation Bilateral - Cardiovascular Exam Cardiovascular Exam: RRR, +S1, +S2. absent: Murmur - GI/Abdominal Exam GI & Abdominal Exam: Distended, Soft, Hypoactive Bowel Sounds. absent: Bruit, Rigid, Tenderness Additional comments: Shunt dressing: right upper quadrant dry/intact/old dressing - Extremities Exam Extremities Exam: absent: Pedal Edema - Neurological Exam Neurological Exam: Alert, Awake, Oriented x3 Additional comments: Neuro motor strength exam: Left Upper Extremity: 4, Right Upper Extremity: 4, Left Lower Extremity: 3, Right Lower Extremity: 3 Additional comments: +gag reflex negative Babinski b/l Pupils are equal and reactive to light unable to perform cranial nerve exam give patient's mental status - Psychiatric Exam Psychiatric exam: Flat Affect Assessment and Plan - Assessment and Plan (Free Text) Assessment: 66 year old female with PMHx DM II, HLD, Asthma, HTN, status post shunt repair admitted for for evaluation and treatment of hydrocephalus. Plan: Hydrocephalus: S/P RIGHT OF WAY MAN Shunt repair 02/26/17. * History of RIGHT OF WAY MAN shunt in 2015 * Neurosurgery: Dr Hancock/Ella on board * Management per neurosurgery * CT Head (02/24/17): shunt malfunction * Shuntogram (02/24/17): ventricular catheter entering from a right sided approac, visualized extracranial tubing intact * Operative note (02/26/17): emergency revision of RIGHT OF WAY MAN shunt * CSF (02/25/17): No growth after 3 days * CT Head (02/27/17): mild increase in extent of ventricular dilatation compared to 02/24/17 with evidence of transependymal resorption of CSF. Right frontal ventriculostomy catheter, unchanged. No other significant interval change. * CT head (02/28/17): stable hydrocephalus with right frontal shunt unchanged in appearance. Transependymal edema remains mild. Age related neuro degenerative changes again identified * per neurosurgery, possible Re-eval RIGHT OF WAY MAN shunt per note 02/28/17 * Per neurosurgery, patient ordered for dose of Gentamcin and Vancomycin 02/28 * neurology consulted (Dr. Rose) - recs appreciated * Prior urine culture is negative * Blood cultures are pending * Will reassess Extraocular movments tomorrow AM. Abdominal Distension * Obstructive series showed dilated loops of large bowel. Large Bowel Ileus vs distal obstruction * Surgery Consulted (Dr. Melton) * NPO * CT Abd/Pelvis Ordered Hypokalemia * 2.9 today. Replenished Hyponatremia (Resolved) * Serum Osm, Urine Osm, Urine Sodium, and Ur random Creatinine all WNL Acute Renal Failure * Nephrology (Dr. Blood) on board * Will check bladder scan r/o urinary retention * Ordered Renal US * Serum Osm, Urine Osm, Urine Sodium, and Ur random Creatinine all WNL * I/O balance -1900 * held Statin, held thiazide diuretic in light of acute rise in Renal Failure * Note elevated Cr prior to gentamicin and Vancomycin Hx DM 2 * Uncontrolled diabetes * Patient is on dysphagia low carb diet * Accuchecks QAC and HS * High Dose insulin sliding scale * Start Lantus 10 units subqHS * HgBA1C 8.7| Lipid Panel- WNL Hx HLD * Lipid Panel WNL * Held Statin in light of renal failure * [place] 3 acid 1 gm PO bid Hx Asthma * X-ray showed no focal consolidation Hx of Hypertension * D/c HCTZ in light of hyponatremia * C/w Cozaar 100mg PO daily * c/w Norvasc 5mg PO daily 8) Constipation (Resolved) * BM today * Cont. Ducolax ID [phone]) Prophylactic measure * Contraindications to chemical anticoagulation given neurosurgical intervention * Protonix 40mg PO daily * Aspiration Precautions * Head of Bed 30 degrees * PT/OT eval * Turn and reposition every 2 hours. Disposition: * Nephrology, neurology, nuerosurgery and general surgery on board * Patient's mental status improved * Check blood cultures and chest xray r/o infection * optimize blood sugar control * f/u neurosurgery Patient seen and discussed with Attending Jordan Andrews PGY1 <Philly Denny V - Last Filed: 03/01/17 20:28> Objective - Vital Signs/Intake and Output Vital Signs (last 24 hours): Temp Pulse Resp BP Pulse Ox 98.3 F 85 20 150/85 97 03/01/17 16:00 03/01/17 16:00 03/01/17 16:00 03/01/17 16:00 03/01/17 16:00 - Medications Medications: Current Medications Acetaminophen (Tylenol 325mg Tab) 650 mg PO Q6 PRN PRN Reason: Pain, moderate (4-7) Last Admin: 03/01/17 12:19 Dose: 650 mg Albuterol/Ipratropium (Duoneb 3 Mg/0.5 Mg (3 Ml) Ud) 3 ml INH RQ6 PRN PRN Reason: Wheezing Last Admin: 03/01/17 12:55 Dose: 3 ml Amlodipine Besylate (Norvasc) 5 mg PO DAILY [facility] Last Admin: 03/01/17 09:40 Dose: 5 mg Dextrose (Dextrose 50% Inj) 0 ml IVP .STAT PRN; Protocol PRN Reason: Hypoglycemia Protocol Dextrose (Glutose 15) 0 gm PO .ONCE PRN; Protocol PRN Reason: Hypoglycemia Protocol Docusate Sodium (Colace) 100 mg PO TID [facility] Last Admin: 03/01/17 18:10 Dose: Not Given Gabapentin (Neurontin) 100 mg PO DAILY [facility] Last Admin: 03/01/17 09:40 Dose: 100 mg Glucagon (Glucagen Diagnostic Kit) 0 mg IM .STAT PRN; Protocol PRN Reason: Hypoglycemia Protocol Sodium Chloride (Sodium Chloride 0.9%) 1,000 mls @ 100 mls/hr IV .Q10H [facility] Last Admin: 03/01/17 12:50 Dose: Not Given Insulin Glargine (Lantus) 10 unit SC HS [facility] Last Admin: 02/28/17 21:42 Dose: 10 units Insulin Human Regular (Novolin R) 0 unit SC ACHS [facility] PRN Reason: Protocol Last Admin: 03/01/17 18:07 Dose: 8 unit Svtoi-1-Havm Ethyl Esters (Lovaza) 1 gm PO BID [facility] Last Admin: 03/01/17 18:07 Dose: 1 gm Pantoprazole Sodium (Protonix Ec Tab) 40 mg PO DAILY [facility] Last Admin: 03/01/17 09:40 Dose: 40 mg Potassium Chloride (K-Dur 20 Meq Er Tab) 40 meq PO ONCE ONE Stop: 03/02/17 18:05 - Labs Labs: 03/01/17 07:37 03/01/17 07:37 PT 12.8 SECONDS (9.7-12.2) H 03/01/17 07:37 INR 1.1 03/01/17 07:37 APTT 24 SECONDS (21-34) 03/01/17 07:37 Attending/Attestation - Attestation I have personally seen and examined this patient.: Yes I have fully participated in the care of the patient.: Yes I have reviewed all pertinent clinical information, including history, physical exam and plan: Yes Notes (Text): Patient seen, examined, and case discussed with day-time resident. Patient seen this morning with improvement of mental status. Patient is more alert, awake, and speaking at bedside, upon direction patient to lift and push against resistance both upper and lower extremities and per daughter and patient 's sister at bedside this is markedly improvement for the past three days. Neurology seen patient this morning, recommended no neurosurgical intervention. Neurosurgery also agreed in light of improvement in mental status. Patient's appears more distended in abdomen compared to yesterday. Obstructive series was ordered: possible large bowel ileus. Patient had received one dose of ducolax yesterday, and per daughter, patient had bowel movement yesterday and today. Patient placed NPO in light of obstructive series result and general surgery consulted. Discussed case with nephrology, given improvement in renal function, recommended for CT Abdomen/Pelvis w/o contrast evaluate for retroperitonal fibrosis given bladder US noted for distended bladder (900+CC) but no noted hydronephrosis. Recommended to keep IV fluids for a day. Assessment/Plan 1). Hydrocephalus: S/P RIGHT OF WAY MAN Shunt repair 02/26/17. * History of RIGHT OF WAY MAN shunt in 2015 * Neurosurgery: Dr Hancock/Ella on board * Management per neurosurgery * CT Head (02/24/17): shunt malfunction * Shuntogram (02/24/17): ventricular catheter entering from a right sided approac, visualized extracranial tubing intact * Operative note (02/26/17): emergency revision of RIGHT OF WAY MAN shunt * CSF (02/25/17): No growth after 4 days * CT Head (02/27/17): mild increase in extent of ventricular dilatation compared to 02/24/17 with evidence of transependymal resorption of CSF. Right frontal ventriculostomy catheter, unchanged. No other significant interval change. * CT head (02/28/17): stable hydrocephalus with right frontal shunt unchanged in appearance. Transependymal edema remains mild. Age related neuro degenerative changes again identified * per neurosurgery, possible Re-eval RIGHT OF WAY MAN shunt per note 02/28/17 * Per neurosurgery, patient ordered for dose of Gentamcin and Vancomycin 02/28 * No neurosurgical intervention following improvement in mental status 03/01 * Neurology (Dr. Rose) r/o cause of metabolic encephalopathy-->pending dictation to result in the computer * Prior urine culture is negative * blood cultures X2: after 24hours * [employer] culture: no growth for 4 days 2). Hypokalemia * low; was replete * F/U BMP for this evening; endorsed to night time resident to follow-up 3). Hyponatremia * improvement * likely due to uncontrolled sugars 4). Acute Renal Failure * Nephrology (Dr. Blood) on boar * Renal US: bladder distension; holbrook inserted 02/28 * Improvement * intake and outpatient * held Statin, held thiazide diuretic in light of acute rise in Renal Failure * Note elevated Cr prior to gentamicin and Vancomycin 02/28 * Pending CT Abdomen/Pelvis r/o retroperitonal fibrosis 5). Hx DM 2 * Uncontrolled diabetes * hgba1c: 8.7 * Patient is on dysphagia low carb diet * Accuchecks QAC and HS * High Dose insulin sliding scale * Start Lantus 10 units subqHS 6). Hx HLD * Check Lipid Panel in AM * Held Statin in light of renal failure * [place] 3 acid 1 gm PO bid 7). Hx Asthma * Will check Chest xray as baseline 8). Hx of Hypertension * D/c HCTZ in light of hyponatremia * C/w Cozaar 100mg PO daily * c/w Norvasc 5mg PO daily 9) Large bowel ileus * Obstructive series (03/01/17): prominent large bowel loops are appreciated suggesting probable large bowel ileus though distal large bowel obstruction is not completely excluded. Surgical clips identified right upper quadrant skin as well as right sided RIGHT OF WAY MAN shunt catheter. No gross free intraperitonal gas. * General surgery (Dr. Cazares) on board help appreciated * Had bowel movement yesterday and today * Patient made NPO following result of obstructive series * Follow-up BMs * Ordered for Ct abdomen/pelvis PO contrast 10) Prophylactic measure * Contraindications to chemical anticoagulation given neurosurgical intervention * Protonix 40mg PO daily * Aspiration Precautions * Head of Bed 30 degrees * PT/OT eval Disposition: * f/u general surgery re large bowel ileus; and bowel movement * optimize blood sugar control * f/u CT abdomen/pelvis PO contrast r/o obstruction and retroperitonal fibrosis * f/u BMP specifically K+ this evening"
--- NOTE | 2017-03-01 17:54 | CP.PCM.CON ---
History of Present Illness - History of Present Illness History of Present Illness: GENERAL SURGERY CONSULT NOTE FOR DR. LARA 66yoF with PMHx of HTN, Diabetes, hypercholesterolemia, asthma, hydrocephalus s/ p CHART CLERK shunt who originally presented to the ED with AMS, dizziness, and weakness. Head CT showed CHART CLERK shunt malfunction. She was taken to the OR on 02/26 by neurosurgery for ventriculoperitoneal shunt malfunction and peritoneal catheter obstruction and had emergency repair of CHART CLERK shunt. Patient seen today at bedside with family present. Patient was AAOx1 and therefore history was mostly obtained from family and EMR. Family states that patient is still not at her baseline neuro status and hasn't been normal since October. They state that she is a little better after the surgery but not back to baseline. Patient denies nausea or vomiting. She hadn't had a bowel movement for about 4 days but had a small watery BM this afternoon. She is passing flatus. She does report some upper abdominal pain which has been present for a few days. PMH: HTN, Diabetes, hypercholesterolemia, asthma, hydrocephalus PSH: CHART CLERK shunt, placed by neurosurgeon Dr. Shepherd at [facility], hysterectomy, appendectomy, cholecystectomy Allergies NKDA Social history: denies smoking or etoh or illicit drug use Review of Systems - Review of Systems All systems: reviewed and no additional remarkable complaints except (as per HPI ) Past Patient History - Infectious Disease Hx of Infectious Diseases: None - Past Medical History & Family History Past Medical History?: Yes - Past Social History Smoking Status: Never Smoked - CARDIAC Hx Hypercholesterolemia: Yes Hx Hypertension: Yes - PULMONARY Hx Asthma: Yes - NEUROLOGICAL Hx Vertigo: Yes - ENDOCRINE/METABOLIC Hx Diabetes Mellitus Type 1: Yes - MUSCULOSKELETAL/RHEUMATOLOGICAL Hx Falls: Yes - PSYCHIATRIC Hx Substance Use: No - SURGICAL HISTORY Other/Comment: brain shunt - ANESTHESIA Hx Anesthesia: Yes Hx Anesthesia Reactions: No Meds Allergies/Adverse Reactions: Allergies Allergy/AdvReac Type Severity Reaction Status Date / Time No Known Allergies Allergy Verified 12/08/15 16:19 - Medications Medications: Current Medications Acetaminophen (Tylenol 325mg Tab) 650 mg PO Q6 PRN PRN Reason: Pain, moderate (4-7) Last Admin: 03/01/17 12:19 Dose: 650 mg Albuterol/Ipratropium (Duoneb 3 Mg/0.5 Mg (3 Ml) Ud) 3 ml INH RQ6 PRN PRN Reason: Wheezing Last Admin: 03/01/17 12:55 Dose: 3 ml Amlodipine Besylate (Norvasc) 5 mg PO DAILY [facility] Last Admin: 03/01/17 09:40 Dose: 5 mg Dextrose (Dextrose 50% Inj) 0 ml IVP .STAT PRN; Protocol PRN Reason: Hypoglycemia Protocol Dextrose (Glutose 15) 0 gm PO .ONCE PRN; Protocol PRN Reason: Hypoglycemia Protocol Docusate Sodium (Colace) 100 mg PO TID [facility] Last Admin: 03/01/17 13:28 Dose: Not Given Gabapentin (Neurontin) 100 mg PO DAILY [facility] Last Admin: 03/01/17 09:40 Dose: 100 mg Glucagon (Glucagen Diagnostic Kit) 0 mg IM .STAT PRN; Protocol PRN Reason: Hypoglycemia Protocol Sodium Chloride (Sodium Chloride 0.9%) 1,000 mls @ 100 mls/hr IV .Q10H [facility] Last Admin: 03/01/17 12:50 Dose: Not Given Insulin Glargine (Lantus) 10 unit SC HS [facility] Last Admin: 02/28/17 21:42 Dose: 10 units Insulin Human Regular (Novolin R) 0 unit SC ACHS [facility] PRN Reason: Protocol Last Admin: 03/01/17 12:26 Dose: 331 unit Lrsvg-5-Aqrq Ethyl Esters (Lovaza) 1 gm PO BID [facility] Last Admin: 03/01/17 09:40 Dose: 1 gm Pantoprazole Sodium (Protonix Ec Tab) 40 mg PO DAILY [facility] Last Admin: 03/01/17 09:40 Dose: 40 mg Physical Exam - Constitutional Appears: Non-toxic, No Acute Distress - Eye Exam Eye Exam: EOMI, Normal appearance - Respiratory Exam Respiratory Exam: NORMAL BREATHING PATTERN. absent: Respiratory Distress - Cardiovascular Exam Cardiovascular Exam: +S1, +S2 - GI/Abdominal Exam GI & Abdominal Exam: Firm (mild in upper abdomen), Soft. absent: Distended, Guarding, Hernia, Rebound, Rigid, Tenderness Additional comments: laparoscopic incision sites well healed Dressing from CHART CLERK shunt surgery with some SS drainage - Neurological Exam Neurological exam: Altered (AAOx1) - Skin Skin Exam: Dry, Warm Results - Vital Signs Recent Vital Signs: Last Vital Signs Temp 98.3 F 03/01/17 16:00 Pulse 85 03/01/17 16:00 Resp 20 03/01/17 16:00 BP 150/85 03/01/17 16:00 Pulse Ox 97 03/01/17 16:00 - Labs Result Diagrams: 03/01/17 07:37 03/01/17 07:37 Labs: Laboratory Results - last 24 hr 02/28/17 03/01/17 03/01/17 20:29 01:56 06:56 WBC RBC Hgb Hct MCV MCH MCHC RDW Plt Count MPV Neut % (Auto) Lymph % (Auto) [place] % (Auto) Eos % (Auto) Baso % (Auto) Neut # Lymph # [place] # Eos # Baso # PT INR APTT Sodium Potassium Chloride Carbon Dioxide Anion Gap BUN Creatinine Est GFR ( Amer) Est GFR (Non-Af Amer) POC Glucose (mg/dL) 317 H 222 H 228 H Random Glucose Hemoglobin A1c Calcium Total Bilirubin AST ALT Alkaline Phosphatase Ammonia Total Protein Albumin Globulin Albumin/Globulin Ratio Triglycerides Cholesterol LDL Cholesterol Direct HDL Cholesterol Urine Color Urine Clarity Urine pH Ur Specific [place] Urine Protein Urine Glucose (UA) Urine Ketones Urine Blood Urine Nitrate Urine Bilirubin Urine Urobilinogen Ur Leukocyte Esterase Urine WBC (Auto) Urine RBC (Auto) Ur Squamous Epith Cells Urine Osmolality Ur Random Creatinine Ur Random Sodium Complement C3 Complement C4 03/01/17 03/01/17 03/01/17 07:22 07:26 07:37 WBC 7.5 RBC 3.75 L Hgb 11.5 Hct 33.2 L MCV 88.6 MCH 30.7 MCHC 34.7 RDW 13.7 Plt Count 155 MPV 8.4 Neut % (Auto) 63.2 Lymph % (Auto) 24.6 [place] % (Auto) 7.8 Eos % (Auto) 3.7 Baso % (Auto) 0.7 Neut # 4.7 Lymph # 1.8 [place] # 0.6 Eos # 0.3 Baso # 0.0 PT INR APTT Sodium Potassium Chloride Carbon Dioxide Anion Gap BUN Creatinine Est GFR ( Amer) Est GFR (Non-Af Amer) POC Glucose (mg/dL) Random Glucose Hemoglobin A1c Calcium Total Bilirubin AST ALT Alkaline Phosphatase Ammonia Total Protein Albumin Globulin Albumin/Globulin Ratio Triglycerides Cholesterol LDL Cholesterol Direct HDL Cholesterol Urine Color Yellow Urine Clarity Clear Urine pH 5.0 Ur Specific [place] 1.014 Urine Protein Negative Urine Glucose (UA) 3+ H Urine Ketones Negative Urine Blood 1+ H Urine Nitrate Negative Urine Bilirubin Negative Urine Urobilinogen Normal Ur Leukocyte Esterase Neg Urine WBC (Auto) 1 Urine RBC (Auto) < 1 Ur Squamous Epith Cells < 1 Urine Osmolality 437 Ur Random Creatinine 69.0 Ur Random Sodium 30 Complement C3 Complement C4 03/01/17 03/01/17 03/01/17 07:37 07:37 07:37 WBC RBC Hgb Hct MCV MCH MCHC RDW Plt Count MPV Neut % (Auto) Lymph % (Auto) [place] % (Auto) Eos % (Auto) Baso % (Auto) Neut # Lymph # [place] # Eos # Baso # PT 12.8 H INR 1.1 APTT 24 Sodium 136 Potassium 2.9 L Chloride 105 Carbon Dioxide 19 L Anion Gap 15 BUN 25 H Creatinine 1.3 H Est GFR ( Amer) 50 Est GFR (Non-Af Amer) 41 POC Glucose (mg/dL) Random Glucose 209 H Hemoglobin A1c 8.7 H D Calcium 8.8 Total Bilirubin 0.8 AST 20 ALT 40 Alkaline Phosphatase 56 Ammonia Total Protein 6.1 L Albumin 3.0 L Globulin 3.1 Albumin/Globulin Ratio 0.9 L Triglycerides 127 Cholesterol 116 LDL Cholesterol Direct 53 HDL Cholesterol 44 Urine Color Urine Clarity Urine pH Ur Specific [place] Urine Protein Urine Glucose (UA) Urine Ketones Urine Blood Urine Nitrate Urine Bilirubin Urine Urobilinogen Ur Leukocyte Esterase Urine WBC (Auto) Urine RBC (Auto) Ur Squamous Epith Cells Urine Osmolality Ur Random Creatinine Ur Random Sodium Complement C3 Complement C4 03/01/17 03/01/17 03/01/17 07:37 07:40 09:30 WBC RBC Hgb Hct MCV MCH MCHC RDW Plt Count MPV Neut % (Auto) Lymph % (Auto) [place] % (Auto) Eos % (Auto) Baso % (Auto) Neut # Lymph # [place] # Eos # Baso # PT INR APTT Sodium Potassium Chloride Carbon Dioxide Anion Gap BUN Creatinine Est GFR ( Amer) Est GFR (Non-Af Amer) POC Glucose (mg/dL) 243 H Random Glucose Hemoglobin A1c Calcium Total Bilirubin AST ALT Alkaline Phosphatase Ammonia < 9 L Total Protein Albumin Globulin Albumin/Globulin Ratio Triglycerides Cholesterol LDL Cholesterol Direct HDL Cholesterol Urine Color Urine Clarity Urine pH Ur Specific [place] Urine Protein Urine Glucose (UA) Urine Ketones Urine Blood Urine Nitrate Urine Bilirubin Urine Urobilinogen Ur Leukocyte Esterase Urine WBC (Auto) Urine RBC (Auto) Ur Squamous Epith Cells Urine Osmolality Ur Random Creatinine Ur Random Sodium Complement C3 121.0 Complement C4 32.9 03/01/17 03/01/17 11:45 15:54 WBC RBC Hgb Hct MCV MCH MCHC RDW Plt Count MPV Neut % (Auto) Lymph % (Auto) [place] % (Auto) Eos % (Auto) Baso % (Auto) Neut # Lymph # [place] # Eos # Baso # PT INR APTT Sodium Potassium Chloride Carbon Dioxide Anion Gap BUN Creatinine Est GFR ( Amer) Est GFR (Non-Af Amer) POC Glucose (mg/dL) 331 H 302 H Random Glucose Hemoglobin A1c Calcium Total Bilirubin AST ALT Alkaline Phosphatase Ammonia Total Protein Albumin Globulin Albumin/Globulin Ratio Triglycerides Cholesterol LDL Cholesterol Direct HDL Cholesterol Urine Color Urine Clarity Urine pH Ur Specific [place] Urine Protein Urine Glucose (UA) Urine Ketones Urine Blood Urine Nitrate Urine Bilirubin Urine Urobilinogen Ur Leukocyte Esterase Urine WBC (Auto) Urine RBC (Auto) Ur Squamous Epith Cells Urine Osmolality Ur Random Creatinine Ur Random Sodium Complement C3 Complement C4 Assessment & Plan - Assessment and Plan (Free Text) Assessment: 66yoF with PMHx of HTN, Diabetes, hypercholesterolemia, asthma, hydrocephalus s/ p CHART CLERK shunt who was admitted for obstructed CHART CLERK shunt now s/p repair and found to have possible large bowel ileus vs obstruction on Xray - Afebrile, VSS - Hypokalemia, K 2.9, gave PO KCl in addition to the IV KCl - Obstructive series: prominent large loops suggesting probable large bowel ileus though distal large bowel obstruction not completely excluded - Had BM today and passing flatus - NPO per medicine - Will try CLD tomorrow and do serial abdominal exams - Discussed plan with Dr. Sage Moreland PGY-3
--- NOTE | 2017-03-01 19:42 | CP.PCM.PN ---
Subjective - Date & Time of Evaluation Date of Evaluation: 03/01/17 Time of Evaluation: 13:00 - Subjective Subjective: Patient noted to be much more responsive today, following commands, tolerated diet per family; Objective - Vital Signs/Intake and Output Vital Signs (last 24 hours): Temp Pulse Resp BP Pulse Ox 98.3 F 85 20 150/85 97 03/01/17 16:00 03/01/17 16:00 03/01/17 16:00 03/01/17 16:00 03/01/17 16:00 - Medications Medications: Current Medications Acetaminophen (Tylenol 325mg Tab) 650 mg PO Q6 PRN PRN Reason: Pain, moderate (4-7) Last Admin: 03/01/17 12:19 Dose: 650 mg Albuterol/Ipratropium (Duoneb 3 Mg/0.5 Mg (3 Ml) Ud) 3 ml INH RQ6 PRN PRN Reason: Wheezing Last Admin: 03/01/17 12:55 Dose: 3 ml Amlodipine Besylate (Norvasc) 5 mg PO DAILY [facility] Last Admin: 03/01/17 09:40 Dose: 5 mg Dextrose (Dextrose 50% Inj) 0 ml IVP .STAT PRN; Protocol PRN Reason: Hypoglycemia Protocol Dextrose (Glutose 15) 0 gm PO .ONCE PRN; Protocol PRN Reason: Hypoglycemia Protocol Docusate Sodium (Colace) 100 mg PO TID [facility] Last Admin: 03/01/17 18:10 Dose: Not Given Gabapentin (Neurontin) 100 mg PO DAILY [facility] Last Admin: 03/01/17 09:40 Dose: 100 mg Glucagon (Glucagen Diagnostic Kit) 0 mg IM .STAT PRN; Protocol PRN Reason: Hypoglycemia Protocol Sodium Chloride (Sodium Chloride 0.9%) 1,000 mls @ 100 mls/hr IV .Q10H [facility] Last Admin: 03/01/17 12:50 Dose: Not Given Insulin Glargine (Lantus) 10 unit SC HS [facility] Last Admin: 02/28/17 21:42 Dose: 10 units Insulin Human Regular (Novolin R) 0 unit SC ACHS [facility] PRN Reason: Protocol Last Admin: 03/01/17 18:07 Dose: 8 unit Ohrqc-2-Nyjq Ethyl Esters (Lovaza) 1 gm PO BID [facility] Last Admin: 03/01/17 18:07 Dose: 1 gm Pantoprazole Sodium (Protonix Ec Tab) 40 mg PO DAILY [facility] Last Admin: 03/01/17 09:40 Dose: 40 mg Potassium Chloride (K-Dur 20 Meq Er Tab) 40 meq PO ONCE ONE Stop: 03/02/17 18:05 - Labs Labs: 03/01/17 07:37 03/01/17 07:37 PT 12.8 SECONDS (9.7-12.2) H 03/01/17 07:37 INR 1.1 03/01/17 07:37 APTT 24 SECONDS (21-34) 03/01/17 07:37 - Constitutional Appears: Non-toxic, No Acute Distress, Other (lethargic) - Head Exam Additional comments: scalp surgical wound dry/clean; - Eye Exam Eye Exam: absent: Scleral icterus - ENT Exam ENT Exam: Mucous Membranes Moist - Respiratory Exam Respiratory Exam: Clear to Ausculation Bilateral. absent: Respiratory Distress - Cardiovascular Exam Cardiovascular Exam: RRR, +S1, +S2 - GI/Abdominal Exam GI & Abdominal Exam: Distended, Soft - Extremities Exam Additional comments: no leg edema; - Neurological Exam Neurological Exam: Alert, Awake Additional comments: following commands, verbalizing coherently; - Psychiatric Exam Psychiatric exam: absent: Agitated - Skin Skin Exam: Warm. absent: Cyanosis Assessment and Plan (1) JOHN (acute kidney injury) Assessment & Plan: Obstructive nephropathy, resolving after placing holbrook catheter; now in polyuric phase of recovery; Lack of hydronephrosis on US at time of distended bladder warrants additional imaging to look for factors contributing to obstruction other than neurogenic bladder (eg. retroperitoneal fibrosis); -continue NS at 100 cc/hr -obtain CT abd/pelvis (without IV contrast for now to avoid tubular injury in the setting of JOHN recovery); Status: Acute (2) HTN (hypertension) Assessment & Plan: BP stable on amlodipine 5 mg only; continue to hold hctz and losartan for now; Status: Acute
[2017-03-01] MEDS: (Lantus) Insulin Glargine, Recombinant SC SCH (21:32)
[2017-03-01 22:12] LABS: CHLORIDE 104 mmol/L (98-107)
[2017-03-01 22:13] LABS: POTASSIUM 3.3 mmol/L (3.6-5.2); SODIUM 135 mmol/L (132-148)
[2017-03-01 22:15] LABS: GFR AFRICAN-AMERICAN > 60
[2017-03-01 22:16] LABS: BLOOD UREA NITROGEN 18 mg/dL (7-17); CALCIUM 8.5 mg/dl (8.6-10.4); CARBON DIOXIDE 23 mmol/L (22-30); GLUCOSE,RANDOM 209 mg/dL (65-105)
[2017-03-02] MEDS ORDERED: DiphenhydrAMINE 50 mg/ml Inj IVP ONE (00:49)
[2017-03-02] MEDS: Albuterol-Ipratrop 3 mg / 0.5 (3 ml) UD INH PRN ×3 (04:29→13:44)
[2017-03-02] MEDS: Sodium Chloride 0.9% 1,000 ML IV SCH ×3 (06:45→19:00)
[2017-03-02 08:23] LABS: BASO # 0.1 K/uL (0.0-0.2); BASO % 1.1 % (0.0-2.0); EOS # 0.2 K/uL (0.0-0.7); EOS % 3.2 % (0.0-4.0); LYMPH # 1.3 K/uL (1.0-4.3); LYMPH % 20.4 % (20.0-40.0); MEAN CORPUSCULAR HEMOGLOBIN 30.6 pg (27.0-31.0); MEAN CORPUSCULAR HGB CONC 34.7 g/dL (33.0-37.0); MONO # 0.6 K/uL (0.0-0.8); MONO % 8.7 % (0.0-10.0); RED CELL DISTRIBUTION WIDTH 13.5 % (11.5-14.5); WHITE BLOOD COUNT 6.3 K/uL (4.8-10.8)
--- NOTE | 2017-03-02 09:17 | CP.PCM.PN ---
Subjective - Date & Time of Evaluation Date of Evaluation: 03/02/17 Time of Evaluation: 07:30 - Subjective Subjective: General Surgery Dr. Cazares Pt S&E @bedside. SHAMIKA. pt nonverbal. family @bedside reports pt had small, loose BM ~3-4pm. Family denies any F/C, N/V. pt is tolerating diet. Objective - Vital Signs/Intake and Output Vital Signs (last 24 hours): Temp Pulse Resp BP Pulse Ox 98.2 F 96 H 20 142/74 98 03/01/17 23:49 03/02/17 01:00 03/01/17 23:49 03/01/17 23:49 03/01/17 23:49 Intake and Output: 03/02/17 03/02/17 06:59 18:59 Intake Total 1100 Output Total 200 Balance 900 - Medications Medications: Current Medications Acetaminophen (Tylenol 325mg Tab) 650 mg PO Q6 PRN PRN Reason: Pain, moderate (4-7) Last Admin: 03/01/17 12:19 Dose: 650 mg Albuterol/Ipratropium (Duoneb 3 Mg/0.5 Mg (3 Ml) Ud) 3 ml INH RQ6 PRN PRN Reason: Wheezing Last Admin: 03/02/17 07:46 Dose: 3 ml Amlodipine Besylate (Norvasc) 5 mg PO DAILY [facility] Last Admin: 03/01/17 09:40 Dose: 5 mg Dextrose (Dextrose 50% Inj) 0 ml IVP .STAT PRN; Protocol PRN Reason: Hypoglycemia Protocol Dextrose (Glutose 15) 0 gm PO .ONCE PRN; Protocol PRN Reason: Hypoglycemia Protocol Docusate Sodium (Colace) 100 mg PO TID [facility] Last Admin: 03/01/17 18:10 Dose: Not Given Gabapentin (Neurontin) 100 mg PO DAILY [facility] Last Admin: 03/01/17 09:40 Dose: 100 mg Glucagon (Glucagen Diagnostic Kit) 0 mg IM .STAT PRN; Protocol PRN Reason: Hypoglycemia Protocol Sodium Chloride (Sodium Chloride 0.9%) 1,000 mls @ 100 mls/hr IV .Q10H [facility] Last Admin: 03/02/17 06:45 Dose: 100 mls/hr Insulin Glargine (Lantus) 10 unit SC HS [facility] Last Admin: 03/01/17 21:32 Dose: 10 units Insulin Human Regular (Novolin R) 0 unit SC ACHS [facility] PRN Reason: Protocol Last Admin: 03/01/17 21:29 Dose: Not Given [id number]-4-Bmxf Ethyl Esters (Lovaza) 1 gm PO BID [facility] Last Admin: 03/01/17 18:07 Dose: 1 gm Pantoprazole Sodium (Protonix Ec Tab) 40 mg PO DAILY [facility] Last Admin: 03/01/17 09:40 Dose: 40 mg Potassium Chloride (K-Dur 20 Meq Er Tab) 40 meq PO ONCE ONE Stop: 03/02/17 18:05 Temazepam (Restoril) 15 mg PO HS PRN PRN Reason: Sleep - Labs Labs: 03/02/17 08:01 03/01/17 21:57 PT 12.8 SECONDS (9.7-12.2) H 03/01/17 07:37 INR 1.1 03/01/17 07:37 APTT 24 SECONDS (21-34) 03/01/17 07:37 - Constitutional Appears: Non-toxic, No Acute Distress - Head Exam Head Exam: NORMAL INSPECTION - ENT Exam ENT Exam: Mucous Membranes Moist - Respiratory Exam Respiratory Exam: NORMAL BREATHING PATTERN. absent: Accessory Muscle Use, Respiratory Distress - Cardiovascular Exam Cardiovascular Exam: absent: Bradycardia, Tachycardia - GI/Abdominal Exam GI & Abdominal Exam: Distended (minimally), Soft, Tenderness (TTP LLQ/suprapubic ). 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 Sage Johnson DO PGY2
[2017-03-02 09:29] LABS: CHLORIDE 105 mmol/L (98-107); POTASSIUM 3.2 mmol/L (3.6-5.2); SODIUM 134 mmol/L (132-148)
[2017-03-02 09:31] LABS: GFR AFRICAN-AMERICAN > 60
[2017-03-02 09:32] LABS: ALB/GLOB RATIO 1.4 (1.0-2.1); ALKALINE PHOSPHATASE 50 U/L (38-126); ALT/SGPT 35 U/L (9-52); AST/SGOT 23 U/L (14-36); BILIRUBIN,TOTAL 0.8 mg/dL (0.2-1.3); BLOOD UREA NITROGEN 15 mg/dL (7-17); CALCIUM 8.2 mg/dl (8.6-10.4); CARBON DIOXIDE 21 mmol/L (22-30); GLUCOSE,RANDOM 198 mg/dL (65-105); PHOSPHOROUS 2.8 mg/dL (2.5-4.5); TOTAL PROTEIN 5.1 g/dL (6.3-8.3)
[2017-03-02 09:33] LABS: MAGNESIUM 1.4 mg/dL (1.6-2.3)
--- NOTE | 2017-03-02 10:40 | PN ---
NEUROLOGICAL EVALUATION DATE: 03/02/2017 NEUROLOGICAL PROBLEMS: Status post revision of ventriculoperitoneal shunt and change in mental status. PHYSICAL EXAMINATION VITAL SIGNS: Blood pressure of 142/74, mean arterial pressure of 96, respiratory rate of 17, temperature of 98.2, and pulse rate of 96. GENERAL: The patient is more awake. Speech is intact. NEUROLOGIC: She follows commands. She complains she could not get sleep last night. No headache. No visual disturbances. Her rest of the examinations were unchanged to compare with my previous exam. DIAGNOSTIC DATA: EEG shows generalized slow activities without any paroxysmal activities. LABORATORY DATA: Her recent blood workup: Sodium of 135, potassium of 3.3, chloride of 104, bicarbonate of 23, BUN of 18, creatinine of 0.8, GFR more than 60, and glucose is 171. IMPRESSION AND PLAN: The patient is clinically improving at present. Correct the electrolytes. The patient can be getting low-dose of diazepam while she is in the hospital for her sleep. From neurological point of view, I do not think she need revision of COMPUTER PATTERNMAKER shunt at present. No evidence of ventriculoperitoneal shunt dysfunction at present. Definitely, the patient need extended hours of EEG, possible ambulatory video electroencephalogram and polysomnogram, both can be done as an outpatient. The patient's condition was discussed with patient's daughter. Johnny Rose MD
[2017-03-02] MEDS: (Novolin R) Insulin Human Regular 100 units/ml vial SC SCH ×4 (11:25→21:27)
--- NOTE | 2017-03-02 11:39 | EEG ---
DATE: 03/01/2017 This is a 16-channel electroencephalogram of drowsy adult. The resting encephalogram consist of 4 to 5 Hertz low amplitude theta activities seen in bilateral cortical leads. Slow activity is continuously noted. Some intermittent right temporal electrode movement artifact contaminated with the background rhythm. There is also bilateral frontal muscle artifact also contaminated with the background rhythm; However, this slow activity is continuously noted from the beginning. The photic stimulation did not evoke driving response noted after 2 to 25 Hz. IMPRESSION: This is an abnormal encephalogram because of persistent slowing throughout the record suggestive of bilateral cerebral dysfunction. This is probably secondary to metabolic vascular degenerative process. Please correlate the finding with Neurological and Radiological studies. Johnny Rose MD [facility] # [id number]
[2017-03-02] MEDS: Omega-3-Acid Ethyl Esters 1 GM Cap PO SCH ×2 (11:55→18:54)
[2017-03-02] MEDS: Magnesium Sulfate 1 gm in D5W 1 GM/100 ML BAG IVPB SCH ×2 (11:55→12:30)
[2017-03-02] MEDS: Pantoprazole 40 mg EC Tab PO SCH (11:57)
--- NOTE | 2017-03-02 12:00 | CP.PCM.PN ---
Subjective - Date & Time of Evaluation Date of Evaluation: 03/02/17 Time of Evaluation: 11:59 - Subjective Subjective: fully awake alert orineted [facility] st good still awaiting CT Objective - Vital Signs/Intake and Output Vital Signs (last 24 hours): Temp Pulse Resp BP Pulse Ox 97.9 F 83 18 133/79 98 03/02/17 09:10 03/02/17 09:10 03/02/17 09:10 03/02/17 09:10 03/02/17 09:10 Intake and Output: 03/02/17 03/02/17 06:59 18:59 Intake Total 1100 Output Total 200 Balance 900 - Medications Medications: Current Medications Acetaminophen (Tylenol 325mg Tab) 650 mg PO Q6 PRN PRN Reason: Pain, moderate (4-7) Last Admin: 03/01/17 12:19 Dose: 650 mg Albuterol/Ipratropium (Duoneb 3 Mg/0.5 Mg (3 Ml) Ud) 3 ml INH RQ6 PRN PRN Reason: Wheezing Last Admin: 03/02/17 07:46 Dose: 3 ml Amlodipine Besylate (Norvasc) 5 mg PO DAILY [facility] Last Admin: 03/02/17 11:57 Dose: 5 mg Dextrose (Dextrose 50% Inj) 0 ml IVP .STAT PRN; Protocol PRN Reason: Hypoglycemia Protocol Dextrose (Glutose 15) 0 gm PO .ONCE PRN; Protocol PRN Reason: Hypoglycemia Protocol Docusate Sodium (Colace) 100 mg PO TID [facility] Last Admin: 03/02/17 11:56 Dose: 100 mg Gabapentin (Neurontin) 100 mg PO DAILY [facility] Last Admin: 03/02/17 11:58 Dose: 100 mg Glucagon (Glucagen Diagnostic Kit) 0 mg IM .STAT PRN; Protocol PRN Reason: Hypoglycemia Protocol Sodium Chloride (Sodium Chloride 0.9%) 1,000 mls @ 100 mls/hr IV .Q10H [facility] Last Admin: 03/02/17 09:30 Dose: Not Given Potassium Chloride (Potassium Chloride 20 Meq/100 Ml) 20 meq in 100 mls @ 50 mls/hr IVPB ONCE ONE Stop: 03/02/17 12:59 Potassium Chloride (Potassium Chloride 20 Meq/100 Ml) 20 meq in 100 mls @ 50 mls/hr IVPB ONCE ONE Stop: 03/02/17 17:29 Insulin Glargine (Lantus) 10 unit SC HS [facility] Last Admin: 03/01/17 21:32 Dose: 10 units Insulin Human Regular (Novolin R) 0 unit SC ACHS [facility] PRN Reason: Protocol Last Admin: 03/02/17 11:59 Dose: 4 unit Ricwr-2-Zslb Ethyl Esters (Lovaza) 1 gm PO BID [facility] Last Admin: 03/02/17 11:55 Dose: 1 gm Pantoprazole Sodium (Protonix Ec Tab) 40 mg PO DAILY [facility] Last Admin: 03/02/17 11:57 Dose: 40 mg Potassium Chloride (K-Dur 20 Meq Er Tab) 40 meq PO ONCE ONE Stop: 03/02/17 18:05 Temazepam (Restoril) 15 mg PO HS PRN PRN Reason: Sleep - Labs Labs: 03/02/17 08:01 03/02/17 08:01 PT 12.8 SECONDS (9.7-12.2) H 03/01/17 07:37 INR 1.1 03/01/17 07:37 APTT 24 SECONDS (21-34) 03/01/17 07:37
[2017-03-02 12:03] LABS: CHLORIDE 103 mmol/L (98-107); SODIUM 136 mmol/L (132-148)
[2017-03-02 12:05] LABS: BILIRUBIN,TOTAL 0.7 mg/dL (0.2-1.3); GFR AFRICAN-AMERICAN > 60
[2017-03-02 12:06] LABS: ALB/GLOB RATIO 1.4 (1.0-2.1); ALKALINE PHOSPHATASE 53 U/L (38-126); ALT/SGPT 37 U/L (9-52); AST/SGOT 22 U/L (14-36); BLOOD UREA NITROGEN 14 mg/dL (7-17); CALCIUM 8.1 mg/dl (8.6-10.4); CARBON DIOXIDE 24 mmol/L (22-30); GLUCOSE,RANDOM 209 mg/dL (65-105); TOTAL PROTEIN 5.2 g/dL (6.3-8.3)
[2017-03-02] MEDS ORDERED: Iohexol 240 (50 ml) PO ONE (13:00)
--- NOTE | 2017-03-02 13:59 | CARD ---
APPROVED REPORT EKG Measurement Heart [id number] <Conclusion> Normal sinus rhythm Normal ECG
--- NOTE | 2017-03-02 16:14 | CP.PCM.PN ---
Subjective - Date & Time of Evaluation Date of Evaluation: 03/02/17 Time of Evaluation: 15:50 - Subjective Subjective: Patient reports feeling well; NPO for abd CT w/ PO contrast to look for obstruction; soft BM today; Objective - Vital Signs/Intake and Output Vital Signs (last 24 hours): Temp Pulse Resp BP Pulse Ox 97.8 F 72 20 125/73 99 03/02/17 15:24 03/02/17 15:24 03/02/17 15:24 03/02/17 15:24 03/02/17 15:24 Intake and Output: 03/02/17 03/02/17 06:59 18:59 Intake Total 1100 Output Total 200 Balance 900 - Medications Medications: Current Medications Acetaminophen (Tylenol 325mg Tab) 650 mg PO Q6 PRN PRN Reason: Pain, moderate (4-7) Last Admin: 03/01/17 12:19 Dose: 650 mg Amlodipine Besylate (Norvasc) 5 mg PO DAILY [facility] Last Admin: 03/02/17 11:57 Dose: 5 mg Dextrose (Dextrose 50% Inj) 0 ml IVP .STAT PRN; Protocol PRN Reason: Hypoglycemia Protocol Dextrose (Glutose 15) 0 gm PO .ONCE PRN; Protocol PRN Reason: Hypoglycemia Protocol Docusate Sodium (Colace) 100 mg PO TID [facility] Last Admin: 03/02/17 13:31 Dose: Not Given Gabapentin (Neurontin) 100 mg PO DAILY [facility] Last Admin: 03/02/17 11:58 Dose: 100 mg Glucagon (Glucagen Diagnostic Kit) 0 mg IM .STAT PRN; Protocol PRN Reason: Hypoglycemia Protocol Potassium Chloride (Potassium Chloride 20 Meq/100 Ml) 20 meq in 100 mls @ 50 mls/hr IVPB ONCE ONE Stop: 03/02/17 17:29 Last Admin: 03/02/17 15:05 Dose: 50 mls/hr Sodium Chloride (Sodium Chloride 0.9%) 1,000 mls @ 75 mls/hr IV .[id number] [facility] Insulin Glargine (Lantus) 10 unit SC HS [facility] Last Admin: 03/01/17 21:32 Dose: 10 units Insulin Human Regular (Novolin R) 0 unit SC ACHS [facility] PRN Reason: Protocol Last Admin: 03/02/17 11:59 Dose: 4 unit Lbksc-4-Ubdh Ethyl Esters (Lovaza) 1 gm PO BID [facility] Last Admin: 03/02/17 11:55 Dose: 1 gm Pantoprazole Sodium (Protonix Ec Tab) 40 mg PO DAILY [facility] Last Admin: 03/02/17 11:57 Dose: 40 mg Potassium Chloride (K-Dur 20 Meq Er Tab) 40 meq PO ONCE ONE Stop: 03/02/17 18:05 Temazepam (Restoril) 15 mg PO HS PRN PRN Reason: Sleep - Labs Labs: 03/02/17 08:01 03/02/17 11:44 PT 12.8 SECONDS (9.7-12.2) H 03/01/17 07:37 INR 1.1 03/01/17 07:37 APTT 24 SECONDS (21-34) 03/01/17 07:37 - Constitutional Appears: Non-toxic, No Acute Distress - Head Exam Head Exam: NORMAL INSPECTION - Eye Exam Eye Exam: Normal appearance. absent: Scleral icterus - ENT Exam ENT Exam: Mucous Membranes Moist - Respiratory Exam Respiratory Exam: Clear to Ausculation Bilateral. absent: Respiratory Distress Additional comments: decreased breath sounds on R; - Cardiovascular Exam Cardiovascular Exam: REGULAR RHYTHM, +S1, +S2 - GI/Abdominal Exam GI & Abdominal Exam: Distended, Soft. absent: Tenderness - Extremities Exam Additional comments: no leg edema; - Neurological Exam Neurological Exam: Alert, Awake - Psychiatric Exam Psychiatric exam: absent: Agitated - Skin Skin Exam: Warm. absent: Cyanosis Assessment and Plan (1) JOHN (acute kidney injury) Assessment & Plan: Resolving; obstructive uropathy resolved with holbrook placement, however, with lack of hydronephrosis seen when bladder was markedly distended, need imaging to look for any cause of obstruction; -awaiting CT abd/pelvis (adding IV contrast as renal function back to baseline and no more polyuric); -continue to replenish K via IV and PO -decreasing NS to 75 cc/hr; Status: Acute (2) HTN (hypertension) Assessment & Plan: BP controlled on only amlodipine 5 mg daily, continue same; Status: Acute
[2017-03-02] MEDS ORDERED: Iodixanol 320 MG/ML 100 ML BOTTLE IV ONE (17:08)
--- NOTE | 2017-03-02 17:45 | CT ---
PROCEDURE: CT HEAD WITHOUT CONTRAST. HISTORY: hydrocephalus COMPARISON: Comparison is made to the previous study dated 02/28/2017 TECHNIQUE: Axial computed tomography images were obtained through the head/brain without intravenous contrast. Radiation dose: Total exam DLP = 883.72 mGy-cm. This CT exam was performed using one or more of the following dose reduction techniques: Automated exposure control, adjustment of the mA and/or kV according to patient size, and/or use of iterative reconstruction technique. FINDINGS: HEMORRHAGE: No intracranial hemorrhage. BRAIN: No mass effect or edema. [id number] chronic microvascular white matter ischemic changes are again noted. VENTRICLES: Interval mild decrease in the size of the ventricles compared to the previous exam. Again seen is right frontal approach shunt catheter in place. The tip of the shunt catheter is seen in the right lateral ventricle slightly to the right of the midline. CALVARIUM: Unremarkable. PARANASAL SINUSES: Unremarkable as visualized. No significant inflammatory changes. MASTOID AIR CELLS: Unremarkable as visualized. No inflammatory changes. OTHER FINDINGS: None. IMPRESSION: Interval mild decrease in the size of the ventricles compared to the previous exam. Otherwise no significant interval change.
[2017-03-02] MEDS ORDERED: Potassium Chloride 20 mEq ER Tab PO ONE (18:04)
--- NOTE | 2017-03-02 18:26 | CT ---
PROCEDURE: CT Abdomen and Pelvis with oral and IV contrast. HISTORY: Large bowel obstruction/ileus COMPARISON: Renal ultrasound performed 02/28/17, obstructive series performed 03/01/17 TECHNIQUE: Contiguous axial images of the abdomen and pelvis. Oral and IV contrast was administered. Coronal and Sagittal reformats generated and reviewed. Contrast dose: 100 cc visi opaque 320 Radiation dose: Total exam DLP = 1161.45 mGy-cm. This CT exam was performed using one or more of the following dose reduction techniques: Automated exposure control, adjustment of the mA and/or kV according to patient size, and/or use of iterative reconstruction technique. FINDINGS: LOWER THORAX: Right basilar atelectasis or infiltrate. There is no visible pleural effusion or pneumothorax. LIVER: Unremarkable. GALLBLADDER AND BILE DUCTS: Cholecystectomy clips. PANCREAS: Unremarkable. SPLEEN: Unremarkable. ADRENALS: Unremarkable. KIDNEYS AND URETERS: The kidneys enhance symmetrically. No hydronephrosis or obstructing renal calculus. Mild fullness of the right greater than left renal collecting systems without evidence of obstructing calculus. BLADDER: Fernandez catheter within a decompressed urinary bladder. Air within the urinary bladder may be secondary to recent instrumentation. REPRODUCTIVE: Uterus is absent, presumably due to hysterectomy. APPENDIX: The appendix appears within normal limits of caliber. No secondary signs of acute appendicitis. BOWEL: The stomach is nondistended. The bowel loops appear within normal limits of caliber without evidence of intestinal obstruction. Fluid and distention of a featureless appearing rectosigmoid colon ; correlate clinically for diarrheal illness. PERITONEUM: No significant free fluid. No definite free air. LYMPH NODES: No bulky lymphadenopathy identified. VASCULATURE: No aortic aneurysm. BONES: Mild degenerative changes. OTHER FINDINGS: Right-sided SYSTEMS ADMINISTRATOR shunt catheter, partially imaged. IMPRESSION: Cholecystectomy. Right-sided SYSTEMS ADMINISTRATOR shunt catheter, partially imaged. Air and fluid noted throughout the colon; correlate clinically for ileus. More prominent fluid and distension of a featureless appearing rectosigmoid colon noted. Mild fullness of bilateral renal collecting systems, right greater than left, without evidence of obstructing calculus. Right basilar atelectasis/infiltrate. Additional findings as above.
--- NOTE | 2017-03-02 19:41 | CP.PCM.PN ---
"Subjective - Date & Time of Evaluation Date of Evaluation: 03/02/17 Time of Evaluation: 19:38 - Subjective Subjective: Patient has been seen and examined. No overnight events reported. Daughter was at bedside. Patient denies any fever, chills, chest pain, sob, n/v/d constipation, or urinary symptoms. Per daughter, patients last bowel movement was at 3pm yesterday. Objective - Vital Signs/Intake and Output Vital Signs (last 24 hours): Temp Pulse Resp BP Pulse Ox 97.8 F 72 20 125/73 99 03/02/17 15:24 03/02/17 15:24 03/02/17 15:24 03/02/17 15:24 03/02/17 15:24 Intake and Output: 03/02/17 03/03/17 18:59 06:59 Intake Total 800 Output Total 400 Balance 400 - Medications Medications: Current Medications Acetaminophen (Tylenol 325mg Tab) 650 mg PO Q6 PRN PRN Reason: Pain, moderate (4-7) Last Admin: 03/01/17 12:19 Dose: 650 mg Amlodipine Besylate (Norvasc) 5 mg PO DAILY [facility] Last Admin: 03/02/17 11:57 Dose: 5 mg Dextrose (Dextrose 50% Inj) 0 ml IVP .STAT PRN; Protocol PRN Reason: Hypoglycemia Protocol Dextrose (Glutose 15) 0 gm PO .ONCE PRN; Protocol PRN Reason: Hypoglycemia Protocol Docusate Sodium (Colace) 100 mg PO TID [facility] Last Admin: 03/02/17 18:54 Dose: Not Given Gabapentin (Neurontin) 100 mg PO DAILY [facility] Last Admin: 03/02/17 11:58 Dose: 100 mg Glucagon (Glucagen Diagnostic Kit) 0 mg IM .STAT PRN; Protocol PRN Reason: Hypoglycemia Protocol Sodium Chloride (Sodium Chloride 0.9%) 1,000 mls @ 75 mls/hr IV .[id number] [facility] Last Admin: 03/02/17 19:00 Dose: 75 mls/hr Insulin Glargine (Lantus) 10 unit SC HS [facility] Last Admin: 03/01/17 21:32 Dose: 10 units Insulin Human Regular (Novolin R) 0 unit SC ACHS [facility] PRN Reason: Protocol Last Admin: 03/02/17 18:54 Dose: 4 unit Laxsx-5-Ahhf Ethyl Esters (Lovaza) 1 gm PO BID [facility] Last Admin: 03/02/17 18:54 Dose: 1 gm Pantoprazole Sodium (Protonix Ec Tab) 40 mg PO DAILY [facility] Last Admin: 03/02/17 11:57 Dose: 40 mg Temazepam (Restoril) 15 mg PO HS PRN PRN Reason: Sleep - Labs Labs: 03/02/17 08:01 03/02/17 11:44 PT 12.8 SECONDS (9.7-12.2) H 03/01/17 07:37 INR 1.1 03/01/17 07:37 APTT 24 SECONDS (21-34) 03/01/17 07:37 - Constitutional Appears: No Acute Distress, Chronically Ill - Head Exam Head Exam: NORMOCEPHALIC. absent: ATRAUMATIC Additional comments: Has clayton over the right temporal aspect of head, No dressing, appears clean/ dry/intact, no drainage noted - Eye Exam Eye Exam: Normal appearance, PERRL. absent: EOMI, Scleral icterus Additional comments: Staccato horizontal gaze, no vertical gaze or convergence. - ENT Exam ENT Exam: Mucous Membranes Moist - Neck Exam Neck Exam: absent: Lymphadenopathy - Respiratory Exam Respiratory Exam: Clear to Ausculation Bilateral, NORMAL BREATHING PATTERN - Cardiovascular Exam Cardiovascular Exam: RRR, +S1, +S2 - GI/Abdominal Exam GI & Abdominal Exam: Distended (Improved ), Soft, Hypoactive Bowel Sounds. absent: Firm, Guarding, Tenderness - Extremities Exam Extremities Exam: Normal Capillary Refill. absent: Pedal Edema - Neurological Exam Neurological Exam: Alert, CN II-XII Intact, Oriented x3 Neuro motor strength exam: Left Upper Extremity: 5, Right Upper Extremity: 5, Left Lower Extremity: 3, Right Lower Extremity: 3 Additional comments: negative Babinski b/l - Psychiatric Exam Psychiatric exam: Flat Affect Assessment and Plan - Assessment and Plan (Free Text) Assessment: 66 year old female with PMHx DM II, HLD, Asthma, HTN, status post shunt repair admitted for for evaluation and treatment of hydrocephalus. Plan: Hydrocephalus: S/P BOTTLE ASSEMBLER Shunt repair 02/26/17. * History of BOTTLE ASSEMBLER shunt in 2015 * Neurosurgery: Dr Hancock/Ella on board * Management per neurosurgery * CT Head (02/24/17): shunt malfunction * Shuntogram (02/24/17): ventricular catheter entering from a right sided approac, visualized extracranial tubing intact * Operative note (02/26/17): emergency revision of BOTTLE ASSEMBLER shunt * CSF (02/25/17): No growth after 3 days * CT Head (02/27/17): mild increase in extent of ventricular dilatation compared to 02/24/17 with evidence of transependymal resorption of CSF. Right frontal ventriculostomy catheter, unchanged. No other significant interval change. * CT head (02/28/17): stable hydrocephalus with right frontal shunt unchanged in appearance. Transependymal edema remains mild. Age related neuro degenerative changes again identified * per neurosurgery, possible Re-eval BOTTLE ASSEMBLER shunt per note 02/28/17 * Per neurosurgery, patient ordered for dose of Gentamcin and Vancomycin 02/28 * neurology consulted (Dr. Rose) - recs appreciated * Prior urine culture is negative * 02/28: Blood cultures negative after 48 hours * Per neuro, patient will need extended hours of EEG, possible ambulatory video electroenchephalogram and polysomnogram. Both can be done as outpatient. EEG today was abnormal, suggesting b/l cerebral dysfunction likely 2/2 to metabolic vascular degenerative process. * 03/02/17: CT of head showed mild decrease in ventricles. Abdominal Distension 2/2 to Ileus * Obstructive series showed dilated loops of large bowel. Large Bowel Ileus vs distal obstruction * Surgery Consulted (Dr. Melton) * CT Abd/Pelvis showed ileus, no obstructing calculus, and right basilar atelectasis * Advance to FLD per surgery team * Insomnia Restoril 15mg HS per Neuro Hypokalemia * 3.0 and 3.2 today. Replenished Hyponatremia (Resolved) * Serum Osm, Urine Osm, Urine Sodium, and Ur random Creatinine all WNL Acute Renal Failure * Nephrology (Dr. Blood) on board * Will check bladder scan r/o urinary retention * Ordered Renal US * Serum Osm, Urine Osm, Urine Sodium, and Ur random Creatinine all WNL * I/O balance -1900 * held Statin, held thiazide diuretic in light of acute rise in Renal Failure * Note elevated Cr prior to gentamicin and Vancomycin Hx DM 2 * Uncontrolled diabetes * Patient is on dysphagia low carb diet * Accuchecks QAC and HS * High Dose insulin sliding scale * Start Lantus 10 units subqHS * HgBA1C 8.7| Lipid Panel- WNL Hx HLD * Lipid Panel WNL * Held Statin in light of renal failure * [place] 3 acid 1 gm PO bid Hx Asthma * X-ray showed no focal consolidation Hx of Hypertension * D/c HCTZ in light of hyponatremia * C/w Cozaar 100mg PO daily * c/w Norvasc 5mg PO daily 8) Constipation (Resolved) * BM today * Cont. Ducolax OR 9) Prophylactic measure * Contraindications to chemical anticoagulation given neurosurgical intervention * Protonix 40mg PO daily * Aspiration Precautions * Head of Bed 30 degrees * PT/OT eval * Turn and reposition every 2 hours. Disposition: * Nephrology, neurology, nuerosurgery and general surgery on board * Patient's mental status improved * Check blood cultures and chest xray r/o infection * optimize blood sugar control * f/u neurosurgery Patient seen and discussed with Attending Jordan Andrews PGY1"
[2017-03-02] MEDS: (Lantus) Insulin Glargine, Recombinant SC SCH (21:33)
[2017-03-02 22:18] LABS: RBC URINE < 1 /hpf (0-3); URINE BACTERIA RARE (<OCC); URINE BILIRUBIN NEGATIVE (NEGATIVE); URINE BLOOD 2+ (NEGATIVE); URINE COLOR Straw (YELLOW); URINE GLUCOSE (UA) 3+ mg/dL (Normal); URINE KETONE NEGATIVE (NEGATIVE); URINE LEUKOCYTE ESTERASE NEG Leu/uL (Negative); URINE PROTEIN NEGATIVE (NEGATIVE); URINE UROBILINOGEN NORMAL mg/dL (0.2-1.0); WBC URINE 1 /hpf (0-5)
[2017-03-03 07:16] LABS: CHLORIDE 105 mmol/L (98-107); POTASSIUM 3.3 mmol/L (3.6-5.2); SODIUM 137 mmol/L (132-148)
[2017-03-03 07:18] LABS: AST/SGOT 29 U/L (14-36); BILIRUBIN,TOTAL 0.7 mg/dL (0.2-1.3); GFR AFRICAN-AMERICAN > 60
[2017-03-03 07:19] LABS: ALKALINE PHOSPHATASE 53 U/L (38-126); ALT/SGPT 43 U/L (9-52); BLOOD UREA NITROGEN 9 mg/dL (7-17); CALCIUM 8.4 mg/dl (8.6-10.4); CARBON DIOXIDE 26 mmol/L (22-30); GLUCOSE,RANDOM 140 mg/dL (65-105); TOTAL PROTEIN 5.9 g/dL (6.3-8.3)
[2017-03-03 07:31] LABS: BASO # 0.1 K/uL (0.0-0.2); EOS # 0.3 K/uL (0.0-0.7); EOS % 5.5 % (0.0-4.0); LYMPH # 1.3 K/uL (1.0-4.3); LYMPH % 23.9 % (20.0-40.0); MEAN CELL VOLUME 88.8 fL (81.0-99.0); MEAN CORPUSCULAR HEMOGLOBIN 30.1 pg (27.0-31.0); MEAN CORPUSCULAR HGB CONC 33.9 g/dL (33.0-37.0); MEAN PLATELET VOLUME 8.2 fL (7.2-11.7); MONO # 0.4 K/uL (0.0-0.8); MONO % 8.3 % (0.0-10.0); NRBC % 0.1 % (0.0-2.0); RED CELL DISTRIBUTION WIDTH 13.5 % (11.5-14.5); WHITE BLOOD COUNT 5.3 K/uL (4.8-10.8)
[2017-03-03] MEDS: Albuterol-Ipratrop 3 mg / 0.5 (3 ml) UD INH SCH ×2 (07:45→13:02)
--- NOTE | 2017-03-03 08:29 | PN ---
DATE: 03/03/2017 NEUROLOGICAL PROBLEM: Hydrocephalous status post EDUCATIONAL SIGN LANGUAGE INTERPRETER shunt revision. PHYSICAL EXAMINATION: VITAL SIGNS: Blood pressure 125/73, mean arterial pressure of 90, respiratory rate 16, temperature afebrile, pulse rate 77. The patient is seen with her sister as well as her daughter. Her mentation is normal. Back to the baseline. She follows all commands. Complaining of lower back pain because of lying down constantly on the bed. Rest of the examination is unchanged. Continue present management. No further intervention is needed from Neurological point of view. If medically stable, the patient can be discharged and should have follow up with me as an outpatient. The patient may need polysomnogram because of her physical nature. The patient may have sleep related breathing disorder including obesity, hyperventilation syndrome or central sleep apnea. The patient's condition been discussed with her daughter. The patient will be followed as outpatient. Johnny Rose MD
[2017-03-03] MEDS: (Novolin R) Insulin Human Regular 100 units/ml vial SC SCH ×4 (08:30→22:07)
[2017-03-03] MEDS ORDERED: Potassium Chloride 20 mEq ER Tab PO ONE ×2 (09:00→12:15)
[2017-03-03] MEDS ORDERED: Simethicone 80 mg Chewtab PO PRN (09:00)
--- NOTE | 2017-03-03 09:09 | CP.PCM.PN ---
Subjective - Date & Time of Evaluation Date of Evaluation: 03/03/17 Time of Evaluation: 07:00 - Subjective Subjective: GENERAL SURGERY PROGRESS NOTE FOR DR. LARA Patient seen and examined at bedside. Her family is at bedside. They report that she had a BM last night and is passing flatus. She does not have any abdominal pain. She denies nausea or vomiting. She is tolerating clear liquid diet. She requests something for gas. Objective - Vital Signs/Intake and Output Vital Signs (last 24 hours): Temp Pulse Resp BP Pulse Ox 97.6 F 68 18 132/74 100 03/03/17 07:25 03/03/17 07:25 03/03/17 07:25 03/03/17 07:25 03/03/17 07:25 Intake and Output: 03/03/17 03/03/17 06:59 18:59 Intake Total 900 Output Total 2000 Balance -1100 - Medications Medications: Current Medications Acetaminophen (Tylenol 325mg Tab) 650 mg PO Q6 PRN PRN Reason: Pain, moderate (4-7) Last Admin: 03/01/17 12:19 Dose: 650 mg Albuterol/Ipratropium (Duoneb 3 Mg/0.5 Mg (3 Ml) Ud) [address] [facility] Amlodipine Besylate (Norvasc) [address] [facility] Last Admin: 03/02/17 11:57 Dose: 5 mg Dextrose (Dextrose 50% Inj) 0 ml IVP .STAT PRN; Protocol PRN Reason: Hypoglycemia Protocol Dextrose (Glutose 15) 0 gm PO .ONCE PRN; Protocol PRN Reason: Hypoglycemia Protocol Docusate Sodium (Colace) [address] [facility] Last Admin: 03/02/17 18:54 Dose: Not Given Gabapentin (Neurontin) [address] [facility] Last Admin: 03/02/17 11:58 Dose: 100 mg Glucagon (Glucagen Diagnostic Kit) 0 mg IM .STAT PRN; Protocol PRN Reason: Hypoglycemia Protocol Sodium Chloride (Sodium Chloride 0.9%) 1,000 mls @ 75 mls/hr IV .[id number] [facility] Last Admin: 03/02/17 19:00 Dose: 75 mls/hr Insulin Glargine (Lantus) [address] [facility] Last Admin: 03/02/17 21:33 Dose: 10 units Insulin Human Regular (Novolin R) 0 unit SC ACHS [facility] PRN Reason: Protocol Last Admin: 03/02/17 21:27 Dose: Not Given Shzcz-0-Zrtr Ethyl Esters (Lovaza) [address] [facility] Last Admin: 03/02/17 18:54 Dose: 1 gm Pantoprazole Sodium (Protonix Ec Tab) [address] [facility] Last Admin: 03/02/17 11:57 Dose: 40 mg Potassium Chloride (K-Dur 20 Meq Er Tab) 40 meq PO ONCE ONE Stop: 03/03/17 09:01 Simethicone (Mylicon Chew Tab) 80 mg PO Q6 PRN PRN Reason: GI distress Temazepam (Restoril) 15 mg PO HS PRN PRN Reason: Sleep - Labs Labs: 03/03/17 06:35 03/03/17 06:35 PT 12.8 SECONDS (9.7-12.2) H 03/01/17 07:37 INR 1.1 03/01/17 07:37 APTT 24 SECONDS (21-34) 03/01/17 07:37 - Constitutional Appears: Non-toxic, No Acute Distress - Head Exam Head Exam: ATRAUMATIC, NORMAL INSPECTION - Respiratory Exam Respiratory Exam: NORMAL BREATHING PATTERN. absent: Respiratory Distress - Cardiovascular Exam Cardiovascular Exam: +S1, +S2 - GI/Abdominal Exam GI & Abdominal Exam: Soft. absent: Distended, Firm, Guarding, Rigid, Tenderness , Rebound - Neurological Exam Neurological Exam: Alert, Awake Assessment and Plan - Assessment and Plan (Free Text) Assessment: 66yoF with PMHx of HTN, Diabetes, hypercholesterolemia, asthma, hydrocephalus s/ p SURFACE SUPERVISOR shunt who was admitted for obstructed SURFACE SUPERVISOR shunt now s/p repair and found to have possible large bowel ileus vs obstruction on Xray - Afebrile, VSS - Hypokalemia, K 3.3, gave 40meq PO KCl - CT yesterday: air and fluid noted throughout the colon. More prominent fluid and distention of a featureless appearing rectosigmoid colon - Had BM last night and passing flatus - Tolerating CLD - Will advance to full liquids for lunch and regular diet for dinner - Ordered Simethicone PRN - Discussed plan with Dr. Sage Moreland PGY-3
[2017-03-03 10:39] LABS: MAGNESIUM 1.7 mg/dL (1.6-2.3); PHOSPHOROUS 2.4 mg/dL (2.5-4.5)
[2017-03-03] MEDS: Pantoprazole 40 mg EC Tab PO SCH (12:20)
[2017-03-03] MEDS: Omega-3-Acid Ethyl Esters 1 GM Cap PO SCH ×2 (12:20→19:00)
--- NOTE | 2017-03-03 14:36 | CP.PCM.PN ---
Subjective - Date & Time of Evaluation Date of Evaluation: 03/03/17 Time of Evaluation: 14:35 - Subjective Subjective: doing well eating and ambulating wounds c and d CT shows improvement in vent size p clear for dc from my standpoibnt Objective - Vital Signs/Intake and Output Vital Signs (last 24 hours): Temp Pulse Resp BP Pulse Ox 97.6 F 68 18 132/74 100 03/03/17 07:25 03/03/17 07:25 03/03/17 07:25 03/03/17 07:25 03/03/17 07:25 Intake and Output: 03/03/17 03/03/17 06:59 18:59 Intake Total 900 Output Total 2000 Balance -1100 - Medications Medications: Current Medications Acetaminophen (Tylenol 325mg Tab) 650 mg PO Q6 PRN PRN Reason: Pain, moderate (4-7) Last Admin: 03/01/17 12:19 Dose: 650 mg Albuterol/Ipratropium (Duoneb 3 Mg/0.5 Mg (3 Ml) Ud) 3 ml INH RQ6 [facility] Last Admin: 03/03/17 13:02 Dose: 3 ml Amlodipine Besylate (Norvasc) 5 mg PO DAILY [facility] Last Admin: 03/03/17 12:19 Dose: 5 mg Dextrose (Dextrose 50% Inj) 0 ml IVP .STAT PRN; Protocol PRN Reason: Hypoglycemia Protocol Dextrose (Glutose 15) 0 gm PO .ONCE PRN; Protocol PRN Reason: Hypoglycemia Protocol Docusate Sodium (Colace) 100 mg PO TID [facility] Last Admin: 03/03/17 14:19 Dose: 100 mg Gabapentin (Neurontin) 100 mg PO DAILY [facility] Last Admin: 03/03/17 12:20 Dose: 100 mg Glucagon (Glucagen Diagnostic Kit) 0 mg IM .STAT PRN; Protocol PRN Reason: Hypoglycemia Protocol Sodium Chloride (Sodium Chloride 0.9%) 1,000 mls @ 75 mls/hr IV .[id number] [facility] Last Admin: 03/02/17 19:00 Dose: 75 mls/hr Insulin Glargine (Lantus) 10 unit SC HS [facility] Last Admin: 03/02/17 21:33 Dose: 10 units Insulin Human Regular (Novolin R) 0 unit SC ACHS [facility] PRN Reason: Protocol Last Admin: 03/03/17 13:22 Dose: 6 unit Vwnsw-4-[id number] Ethyl Esters (Lovaza) 1 gm PO BID [facility] Last Admin: 03/03/17 12:20 Dose: 1 gm Pantoprazole Sodium (Protonix Ec Tab) 40 mg PO DAILY [facility] Last Admin: 03/03/17 12:20 Dose: 40 mg Simethicone (Mylicon Chew Tab) 80 mg PO Q6 PRN PRN Reason: GI distress Temazepam (Restoril) 15 mg PO HS PRN PRN Reason: Sleep - Labs Labs: 03/03/17 06:35 03/03/17 06:35 PT 12.8 SECONDS (9.7-12.2) H 03/01/17 07:37 INR 1.1 03/01/17 07:37 APTT 24 SECONDS (21-34) 03/01/17 07:37
[2017-03-03 20:49] LABS: RBC URINE 6 /hpf (0-3); URINE BACTERIA RARE (<OCC); URINE BILIRUBIN NEGATIVE (NEGATIVE); URINE BLOOD 1+ (NEGATIVE); URINE COLOR Straw (YELLOW); URINE GLUCOSE (UA) 3+ mg/dL (Normal); URINE KETONE NEGATIVE (NEGATIVE); URINE LEUKOCYTE ESTERASE NEG Leu/uL (Negative); URINE PROTEIN NEGATIVE (NEGATIVE); URINE UROBILINOGEN NORMAL mg/dL (0.2-1.0); WBC URINE 2 /hpf (0-5)
--- NOTE | 2017-03-03 21:09 | CP.PCM.PN ---
"Subjective - Date & Time of Evaluation Date of Evaluation: 03/03/17 Time of Evaluation: 21:05 - Subjective Subjective: Patient has been seen and examined. In the morning, patient showed signs of improvement from the previous day. No overnight events were reported. She denied any chest pain, SOB, headache, dizziness, abdominal pain, constipation, diarrhea, or urinary symptoms. By the afternoon patient became more confused and [place] asked where she is. ROS was the same as it was during the day. Objective - Vital Signs/Intake and Output Vital Signs (last 24 hours): Temp Pulse Resp BP Pulse Ox 97.8 F 72 19 104/60 100 03/03/17 16:32 03/03/17 16:32 03/03/17 16:32 03/03/17 16:32 03/03/17 16:32 Intake and Output: 03/03/17 03/04/17 18:59 06:59 Intake Total 790 Balance 790 - Medications Medications: Current Medications Acetaminophen (Tylenol 325mg Tab) 650 mg PO Q6 PRN PRN Reason: Pain, moderate (4-7) Last Admin: 03/01/17 12:19 Dose: 650 mg Albuterol/Ipratropium (Duoneb 3 Mg/0.5 Mg (3 Ml) Ud) 3 ml INH RQ6 [facility] Last Admin: 03/03/17 13:02 Dose: 3 ml Amlodipine Besylate (Norvasc) 5 mg PO DAILY [facility] Last Admin: 03/03/17 12:19 Dose: 5 mg Dextrose (Dextrose 50% Inj) 0 ml IVP .STAT PRN; Protocol PRN Reason: Hypoglycemia Protocol Dextrose (Glutose 15) 0 gm PO .ONCE PRN; Protocol PRN Reason: Hypoglycemia Protocol Docusate Sodium (Colace) 100 mg PO TID [facility] Last Admin: 03/03/17 19:00 Dose: 100 mg Gabapentin (Neurontin) 100 mg PO DAILY [facility] Last Admin: 03/03/17 12:20 Dose: 100 mg Glucagon (Glucagen Diagnostic Kit) 0 mg IM .STAT PRN; Protocol PRN Reason: Hypoglycemia Protocol Sodium Chloride (Sodium Chloride 0.9%) 1,000 mls @ 75 mls/hr IV .[id number] [facility] Last Admin: 03/02/17 19:00 Dose: 75 mls/hr Insulin Glargine (Lantus) 10 unit SC HS [facility] Last Admin: 03/02/17 21:33 Dose: 10 units Insulin Human Regular (Novolin R) 0 unit SC ACHS [facility] PRN Reason: Protocol Last Admin: 03/03/17 19:55 Dose: 6 unit Rslix-3-Ssjq Ethyl Esters (Lovaza) 1 gm PO BID [facility] Last Admin: 03/03/17 19:00 Dose: 1 gm Pantoprazole Sodium (Protonix Ec Tab) 40 mg PO DAILY [facility] Last Admin: 03/03/17 12:20 Dose: 40 mg Simethicone (Mylicon Chew Tab) 80 mg PO Q6 PRN PRN Reason: GI distress Temazepam (Restoril) 15 mg PO HS PRN PRN Reason: Sleep - Labs Labs: 03/03/17 06:35 03/03/17 06:35 PT 12.8 SECONDS (9.7-12.2) H 03/01/17 07:37 INR 1.1 03/01/17 07:37 APTT 24 SECONDS (21-34) 03/01/17 07:37 - Additional Findings Additional findings: - Constitutional Appears: No Acute Distress, Chronically Ill - Head Exam Head Exam: NORMOCEPHALIC. absent: ATRAUMATIC Additional comments: Has clayton over the right temporal aspect of head, No dressing, appears clean/ dry/intact, no drainage noted - Eye Exam Eye Exam: Normal appearance, PERRL. absent: EOMI, Scleral icterus Additional comments: Smooth horizontal gaze, no vertical gaze, and minimal convergence - ENT Exam ENT Exam: Mucous Membranes Moist - Neck Exam Neck Exam: absent: Lymphadenopathy - Respiratory Exam Respiratory Exam: Clear to Ausculation Bilateral, NORMAL BREATHING PATTERN - Cardiovascular Exam Cardiovascular Exam: RRR, +S1, +S2 - GI/Abdominal Exam GI & Abdominal Exam: Distended (Same as yesterday), Soft, Hypoactive Bowel Sounds. absent: Firm, Guarding, Tenderness - Extremities Exam Extremities Exam: Normal Capillary Refill. absent: Pedal Edema - Neurological Exam Neurological Exam: Alert, CN II-XII Intact, absent: Oriented x 3 Neuro motor strength exam: Left Upper Extremity: 5, Right Upper Extremity: 5, Left Lower Extremity: 3, Right Lower Extremity: 3 Additional comments: negative Babinski b/l Assessment and Plan - Assessment and Plan (Free Text) Assessment: 66 year old female with PMHx DM II, HLD, Asthma, HTN, status post shunt repair admitted for for evaluation and treatment of hydrocephalus. Plan: Hydrocephalus: S/P LATHING SUPERVISOR Shunt repair 02/26/17. * History of LATHING SUPERVISOR shunt in 2015 * Neurosurgery: Dr Hancock/Ella on board * Management per neurosurgery * CT Head (02/24/17): shunt malfunction * Shuntogram (02/24/17): ventricular catheter entering from a right sided approac, visualized extracranial tubing intact * Operative note (02/26/17): emergency revision of LATHING SUPERVISOR shunt * CSF (02/25/17): No growth after 3 days * CT Head (02/27/17): mild increase in extent of ventricular dilatation compared to 02/24/17 with evidence of transependymal resorption of CSF. Right frontal ventriculostomy catheter, unchanged. No other significant interval change. * CT head (02/28/17): stable hydrocephalus with right frontal shunt unchanged in appearance. Transependymal edema remains mild. Age related neuro degenerative changes again identified * per neurosurgery, possible Re-eval LATHING SUPERVISOR shunt per note 02/28/17 * Per neurosurgery, patient ordered for dose of Gentamcin and Vancomycin 02/28 * neurology consulted (Dr. Rose) - recs appreciated * Prior urine culture is negative * 02/28: Blood cultures negative after 48 hours * Per neuro, patient will need extended hours of EEG, possible ambulatory video electroenchephalogram and polysomnogram. Both can be done as outpatient. EEG today was abnormal, suggesting b/l cerebral dysfunction likely 2/2 to metabolic vascular degenerative process. * 03/02/17: CT of head showed mild decrease in ventricles. * Patient slight more confused today. Urine showed tinged blood. Fernandez Catheter was inserted, UA and Urine cultures were ordered. * UA showed 3+ Glucose, 1+ Blood, and 6 Urine RBCs Abdominal Distension 2/2 to Ileus * Obstructive series showed dilated loops of large bowel. Large Bowel Ileus vs distal obstruction * Surgery Consulted (Dr. Melton) * CT Abd/Pelvis showed ileus, no obstructing calculus, and right basilar atelectasis * Advance to [facility] per surgery team for lunch and then regular diet for dinner. Insomnia Restoril 15mg HS per Neuro Hypokalemia * 3.3 today - Replenished Hyponatremia (Resolved) * Serum Osm, Urine Osm, Urine Sodium, and Ur random Creatinine all WNL Acute Renal Failure * Nephrology (Dr. Blood) on board * Will check bladder scan r/o urinary retention * Ordered Renal US * Serum Osm, Urine Osm, Urine Sodium, and Ur random Creatinine all WNL * I/O balance -1900 * held Statin, held thiazide diuretic in light of acute rise in Renal Failure * Note elevated Cr prior to gentamicin and Vancomycin * Fernandez inserted Hx DM 2 * Uncontrolled diabetes * Patient is on dysphagia low carb diet * Accuchecks QAC and HS * High Dose insulin sliding scale * Start Lantus 10 units subqHS * HgBA1C 8.7| Lipid Panel- WNL Hx HLD * Lipid Panel WNL * Held Statin in light of renal failure * [place] 3 acid 1 gm PO bid Hx Asthma * X-ray showed no focal consolidation Hx of Hypertension * D/c HCTZ in light of hyponatremia * C/w Cozaar 100mg PO daily * c/w Norvasc 5mg PO daily 8) Constipation (Resolved) * BM today * Cont. Ducolax PRN 9) Prophylactic measure * Contraindications to chemical anticoagulation given neurosurgical intervention * Protonix 40mg PO daily * Aspiration Precautions * Head of Bed 30 degrees * PT/OT eval * Turn and reposition every 2 hours. Disposition: * Nephrology, neurology, nuerosurgery and general surgery on board * Patient's mental status improved * Check blood cultures and chest xray r/o infection * optimize blood sugar control * f/u neurosurgery Patient seen and discussed with Attending Jordan Andrews PGY1"
[2017-03-03] MEDS: (Lantus) Insulin Glargine, Recombinant SC SCH (22:37)
--- NOTE | 2017-03-03 22:47 | CP.PCM.PN ---
Objective - Vital Signs/Intake and Output Vital Signs (last 24 hours): Temp Pulse Resp BP Pulse Ox 97.8 F 72 19 104/60 100 03/03/17 16:32 03/03/17 16:32 03/03/17 16:32 03/03/17 16:32 03/03/17 16:32 Intake and Output: 03/03/17 03/04/17 18:59 06:59 Intake Total 790 Balance 790 - Medications Medications: Current Medications Acetaminophen (Tylenol 325mg Tab) 650 mg PO Q6 PRN PRN Reason: Pain, moderate (4-7) Last Admin: 03/01/17 12:19 Dose: 650 mg Albuterol/Ipratropium (Duoneb 3 Mg/0.5 Mg (3 Ml) Ud) 3 ml INH RQ6 [facility] Last Admin: 03/03/17 13:02 Dose: 3 ml Amlodipine Besylate (Norvasc) 5 mg PO DAILY [facility] Last Admin: 03/03/17 12:19 Dose: 5 mg Dextrose (Dextrose 50% Inj) 0 ml IVP .STAT PRN; Protocol PRN Reason: Hypoglycemia Protocol Dextrose (Glutose 15) 0 gm PO .ONCE PRN; Protocol PRN Reason: Hypoglycemia Protocol Docusate Sodium (Colace) 100 mg PO TID [facility] Last Admin: 03/03/17 19:00 Dose: 100 mg Gabapentin (Neurontin) 100 mg PO DAILY [facility] Last Admin: 03/03/17 12:20 Dose: 100 mg Glucagon (Glucagen Diagnostic Kit) 0 mg IM .STAT PRN; Protocol PRN Reason: Hypoglycemia Protocol Sodium Chloride (Sodium Chloride 0.9%) 1,000 mls @ 75 mls/hr IV .[id number] [facility] Last Admin: 03/02/17 19:00 Dose: 75 mls/hr Insulin Glargine (Lantus) 10 unit SC HS [facility] Last Admin: 03/03/17 22:37 Dose: 10 units Insulin Human Regular (Novolin R) 0 unit SC ACHS [facility] PRN Reason: Protocol Last Admin: 03/03/17 22:07 Dose: Not Given Shoqz-3-Kwhu Ethyl Esters (Lovaza) 1 gm PO BID [facility] Last Admin: 03/03/17 19:00 Dose: 1 gm Pantoprazole Sodium (Protonix Ec Tab) 40 mg PO DAILY [facility] Last Admin: 03/03/17 12:20 Dose: 40 mg Simethicone (Mylicon Chew Tab) 80 mg PO Q6 PRN PRN Reason: GI distress Temazepam (Restoril) 15 mg PO HS PRN PRN Reason: Sleep - Labs Labs: 03/03/17 06:35 03/03/17 06:35 PT 12.8 SECONDS (9.7-12.2) H 03/01/17 07:37 INR 1.1 03/01/17 07:37 APTT 24 SECONDS (21-34) 03/01/17 07:37 Assessment and Plan (1) JOHN (acute kidney injury) Status: Acute (2) HTN (hypertension) Status: Acute
[2017-03-04] MEDS: Albuterol-Ipratrop 3 mg / 0.5 (3 ml) UD INH SCH ×4 (06:56→19:28)
[2017-03-04] MEDS: (Novolin R) Insulin Human Regular 100 units/ml vial SC SCH ×4 (07:32→22:25)
[2017-03-04 08:36] LABS: BASO # 0.1 K/uL (0.0-0.2); EOS # 0.3 K/uL (0.0-0.7); EOS % 4.8 % (0.0-4.0); LYMPH # 1.6 K/uL (1.0-4.3); LYMPH % 25.8 % (20.0-40.0); MEAN CELL VOLUME 89.6 fL (81.0-99.0); MEAN CORPUSCULAR HEMOGLOBIN 29.9 pg (27.0-31.0); MEAN CORPUSCULAR HGB CONC 33.3 g/dL (33.0-37.0); MEAN PLATELET VOLUME 8.1 fL (7.2-11.7); MONO # 0.4 K/uL (0.0-0.8); MONO % 6.9 % (0.0-10.0); RED CELL DISTRIBUTION WIDTH 13.2 % (11.5-14.5); WHITE BLOOD COUNT 6.1 K/uL (4.8-10.8)
[2017-03-04 08:50] LABS: CHLORIDE 101 mmol/L (98-107); SODIUM 137 mmol/L (132-148)
[2017-03-04 08:51] LABS: POTASSIUM 3.8 mmol/L (3.6-5.2)
[2017-03-04 08:53] LABS: ALB/GLOB RATIO 1.5 (1.0-2.1); ALKALINE PHOSPHATASE 61 U/L (38-126); ALT/SGPT 44 U/L (9-52); AST/SGOT 22 U/L (14-36); BILIRUBIN,TOTAL 0.9 mg/dL (0.2-1.3); BLOOD UREA NITROGEN 8 mg/dL (7-17); CARBON DIOXIDE 28 mmol/L (22-30); GFR AFRICAN-AMERICAN > 60; TOTAL PROTEIN 5.7 g/dL (6.3-8.3)
[2017-03-04 08:54] LABS: CALCIUM 8.4 mg/dl (8.6-10.4); GLUCOSE,RANDOM 161 mg/dL (65-105)
--- NOTE | 2017-03-04 10:09 | CP.PCM.PN ---
Subjective - Date & Time of Evaluation Date of Evaluation: 03/04/17 Time of Evaluation: 09:30 - Subjective Subjective: General Surgery Pt S&E, NAEO tolerating HHD. + BMs. Per family is confused about where she is at times. Objective - Vital Signs/Intake and Output Vital Signs (last 24 hours): Temp Pulse Resp BP Pulse Ox 97.7 F 85 21 157/92 H 96 03/04/17 08:20 03/04/17 08:20 03/04/17 08:20 03/04/17 08:20 03/04/17 08:20 Intake and Output: 03/04/17 03/04/17 06:59 18:59 Intake Total 1600 Output Total 1200 Balance 400 - Medications Medications: Current Medications Acetaminophen (Tylenol 325mg Tab) 650 mg PO Q6 PRN PRN Reason: Pain, moderate (4-7) Last Admin: 03/04/17 01:45 Dose: 650 mg Albuterol/Ipratropium (Duoneb 3 Mg/0.5 Mg (3 Ml) Ud) 3 ml INH RQ6 [facility] Last Admin: 03/04/17 08:00 Dose: 3 ml Amlodipine Besylate (Norvasc) 5 mg PO DAILY [facility] Last Admin: 03/03/17 12:19 Dose: 5 mg Dextrose (Dextrose 50% Inj) 0 ml IVP .STAT PRN; Protocol PRN Reason: Hypoglycemia Protocol Dextrose (Glutose 15) 0 gm PO .ONCE PRN; Protocol PRN Reason: Hypoglycemia Protocol Docusate Sodium (Colace) 100 mg PO TID [facility] Last Admin: 03/03/17 19:00 Dose: 100 mg Gabapentin (Neurontin) 100 mg PO DAILY [facility] Last Admin: 03/03/17 12:20 Dose: 100 mg Glucagon (Glucagen Diagnostic Kit) 0 mg IM .STAT PRN; Protocol PRN Reason: Hypoglycemia Protocol Sodium Chloride (Sodium Chloride 0.9%) 1,000 mls @ 75 mls/hr IV .[id number] [facility] Last Admin: 03/02/17 19:00 Dose: 75 mls/hr Insulin Glargine (Lantus) 10 unit SC HS [facility] Last Admin: 03/03/17 22:37 Dose: 10 units Insulin Human Regular (Novolin R) 0 unit SC ACHS [facility] PRN Reason: Protocol Last Admin: 03/04/17 07:32 Dose: Not Given Eqvsl-9-Utva Ethyl Esters (Lovaza) 1 gm PO BID [facility] Last Admin: 03/03/17 19:00 Dose: 1 gm Pantoprazole Sodium (Protonix Ec Tab) 40 mg PO DAILY [facility] Last Admin: 03/03/17 12:20 Dose: 40 mg Simethicone (Mylicon Chew Tab) 80 mg PO Q6 PRN PRN Reason: GI distress Temazepam (Restoril) 15 mg PO HS PRN PRN Reason: Sleep - Labs Labs: 03/04/17 08:25 03/04/17 08:25 PT 12.8 SECONDS (9.7-12.2) H 03/01/17 07:37 INR 1.1 03/01/17 07:37 APTT 24 SECONDS (21-34) 03/01/17 07:37 - Constitutional Appears: Non-toxic, No Acute Distress - Head Exam Head Exam: absent: ATRAUMATIC (Recent NOVELTY PRINTING MACHINE OPERATOR shunt revision scar) - Eye Exam Eye Exam: EOMI. absent: Scleral icterus - Respiratory Exam Respiratory Exam: NORMAL BREATHING PATTERN. absent: Respiratory Distress - GI/Abdominal Exam GI & Abdominal Exam: Soft. absent: Distended, Guarding, Tenderness - Neurological Exam Neurological Exam: Alert, Awake - Skin Skin Exam: Dry, Warm Assessment and Plan - Assessment and Plan (Free Text) Assessment: 66F s/p NOVELTY PRINTING MACHINE OPERATOR shunt revision with improved ileus Plan: Ileus resolved. No further surgical intervention at this time. Will sign off. Please reconsult if needed. D/W Dr. Sage Granados PGY4
--- NOTE | 2017-03-04 10:41 | CARD ---
APPROVED REPORT EKG Measurement Heart [id number] [place] 158P29 [id number] <Conclusion> Normal sinus rhythm Normal ECG
[2017-03-04] MEDS: Omega-3-Acid Ethyl Esters 1 GM Cap PO SCH ×2 (11:00→18:35)
[2017-03-04] MEDS: Pantoprazole 40 mg EC Tab PO SCH (11:00)
[2017-03-04] MEDS ORDERED: Influenza Vaccine 60 mcg/0.5 mL SYR (4YR UP) IM ONE (18:00)
[2017-03-04] MEDS ORDERED: Pneumococcal 23-Valent Vaccine IM ONE (18:00)
--- NOTE | 2017-03-04 19:57 | CP.PCM.PN ---
"Subjective - Date & Time of Evaluation Date of Evaluation: 03/04/17 Time of Evaluation: 11:00 - Subjective Subjective: Dr. Bai note: Patient is cleared for discharge however she is pending transportation for tomorrow morning. Patient has no complaints and is seen with her daughter who is present in the room. Patient's daughter is concerned that the patient may have some depression if she is left alone at [facility]. This was discussed with her about the patient's need for rehab. She agrees. Objective - Vital Signs/Intake and Output Vital Signs (last 24 hours): Temp Pulse Resp BP Pulse Ox 98.2 F 72 20 112/67 98 03/04/17 16:05 03/04/17 16:05 03/04/17 16:05 03/04/17 16:05 03/04/17 16:05 Intake and Output: 03/04/17 03/05/17 18:59 06:59 Intake Total 900 Output Total 1200 Balance -300 - Medications Medications: Current Medications Acetaminophen (Tylenol 325mg Tab) 650 mg PO Q6 PRN PRN Reason: Pain, moderate (4-7) Last Admin: 03/04/17 01:45 Dose: 650 mg Albuterol/Ipratropium (Duoneb 3 Mg/0.5 Mg (3 Ml) Ud) 3 ml INH RQ6 [facility] Last Admin: 03/04/17 19:28 Dose: 3 ml Amlodipine Besylate (Norvasc) 5 mg PO DAILY [facility] Last Admin: 03/04/17 11:00 Dose: 5 mg Dextrose (Dextrose 50% Inj) 0 ml IVP .STAT PRN; Protocol PRN Reason: Hypoglycemia Protocol Dextrose (Glutose 15) 0 gm PO .ONCE PRN; Protocol PRN Reason: Hypoglycemia Protocol Docusate Sodium (Colace) 100 mg PO TID [facility] Last Admin: 03/04/17 18:35 Dose: 100 mg Gabapentin (Neurontin) 100 mg PO DAILY [facility] Last Admin: 03/04/17 11:00 Dose: 100 mg Glucagon (Glucagen Diagnostic Kit) 0 mg IM .STAT PRN; Protocol PRN Reason: Hypoglycemia Protocol Sodium Chloride (Sodium Chloride 0.9%) 1,000 mls @ 75 mls/hr IV .[id number] [facility] Last Admin: 03/02/17 19:00 Dose: 75 mls/hr Insulin Glargine (Lantus) 10 unit SC HS [facility] Last Admin: 03/03/17 22:37 Dose: 10 units Insulin Human Regular (Novolin R) 0 unit SC ACHS [facility] PRN Reason: Protocol Last Admin: 03/04/17 17:53 Dose: 8 unit Olhme-0-Urxn Ethyl Esters (Lovaza) 1 gm PO BID [facility] Last Admin: 03/04/17 18:35 Dose: 1 gm Pantoprazole Sodium (Protonix Ec Tab) 40 mg PO DAILY [facility] Last Admin: 03/04/17 11:00 Dose: 40 mg Simethicone (Mylicon Chew Tab) 80 mg PO Q6 PRN PRN Reason: GI distress Last Admin: 03/04/17 11:03 Dose: 80 mg Temazepam (Restoril) 15 mg PO HS PRN PRN Reason: Sleep - Labs Labs: 03/04/17 08:25 03/04/17 08:25 PT 12.8 SECONDS (9.7-12.2) H 03/01/17 07:37 INR 1.1 03/01/17 07:37 APTT 24 SECONDS (21-34) 03/01/17 07:37 - Constitutional Appears: Non-toxic, In Acute Distress - Head Exam Head Exam: absent: NORMOCEPHALIC - Respiratory Exam Respiratory Exam: Clear to Ausculation Bilateral. absent: Rales, Rhonchi - Cardiovascular Exam Cardiovascular Exam: REGULAR RHYTHM, RRR - GI/Abdominal Exam GI & Abdominal Exam: Soft. absent: Tenderness - Neurological Exam Neurological Exam: Alert Assessment and Plan - Assessment and Plan (Free Text) Assessment: Assessment: 03/04: Patient is cleared for discharge, will go to [facility] tomorrow morning and follow up with Neurosurgery. 66 year old female with PMHx DM II, HLD, Asthma, HTN, status post shunt repair admitted for for evaluation and treatment of hydrocephalus. Plan: 03/04: Cleared for discharge, she will be discharged tomorrow. Hydrocephalus: S/P ROUTER OPERATOR PIN Shunt repair 02/26/17. History of ROUTER OPERATOR PIN shunt in 2015 Neurosurgery: Dr Hancock/Ella on board Management per neurosurgery CT Head (02/24/17): shunt malfunction Shuntogram (02/24/17): ventricular catheter entering from a right sided approac, visualized extracranial tubing intact Operative note (02/26/17): emergency revision of ROUTER OPERATOR PIN shunt CSF (02/25/17): No growth after [address] Head (02/27/17): mild increase in extent of ventricular dilatation compared to 02/24/17 with evidence of transependymal resorption of CSF. Right frontal ventriculostomy catheter, unchanged. No other significant interval change. CT head (02/28/17): stable hydrocephalus with right frontal shunt unchanged in appearance. Transependymal edema remains mild. Age related neuro degenerative changes again identified per neurosurgery, possible Re-eval ROUTER OPERATOR PIN shunt per note 02/28/17 Per neurosurgery, patient ordered for dose of Gentamcin and Vancomycin neurology consulted (Dr. Rose) - recs appreciated Prior urine culture is negative 02/28: Blood cultures negative after 48 hours Per neuro, patient will need extended hours of EEG, possible ambulatory video electroenchephalogram and polysomnogram. Both can be done as outpatient. EEG today was abnormal, suggesting b/l cerebral dysfunction likely 2/2 to metabolic vascular degenerative process. 03/02/17: CT of head showed mild decrease in ventricles. Patient slight more confused today. Urine showed tinged blood. Fernandez Catheter was inserted, UA and Urine cultures were ordered. UA showed 3+ Glucose, 1+ Blood, and 6 Urine RBCs Abdominal Distension 2/2 to Ileus Obstructive series showed dilated loops of large bowel. Large Bowel Ileus vs distal obstruction Surgery Consulted (Dr. Melton) CT Abd/Pelvis showed ileus, no obstructing calculus, and right basilar atelectasis Advance to FLD per surgery team for lunch and then regular diet for dinner. Insomnia Restoril 15mg HS per Neuro Hypokalemia 03/04: labs wnl 3.3 today - Replenished Hyponatremia (Resolved) Serum Osm, Urine Osm, Urine Sodium, and Ur random Creatinine all WNL Acute Renal Failure Nephrology (Dr. Blood) on board Will check bladder scan r/o urinary retention Ordered Renal US Serum Osm, Urine Osm, Urine Sodium, and Ur random Creatinine all WNL I/O balance -1900 held Statin, held thiazide diuretic in light of acute rise in Renal Failure Note elevated Cr prior to gentamicin and Vancomycin Fernandez inserted Hx DM 2 Uncontrolled diabetes Patient is on dysphagia low carb diet Accuchecks QAC and HS High Dose insulin sliding scale Start Lantus 10 units subqHS HgBA1C 8.7| Lipid Panel- WNL Hx HLD Lipid Panel WNL Held Statin in light of renal failure [place] 3 acid 1 gm PO bid Hx Asthma X-ray showed no focal consolidation Hx of Hypertension D/c HCTZ in light of hyponatremia C/w Cozaar 100mg PO daily c/w Norvasc 5mg PO daily 8) Constipation (Resolved) BM today Cont. Ducolax PRN 9) Prophylactic measure Contraindications to chemical anticoagulation given neurosurgical intervention Protonix 40mg PO daily Aspiration Precautions Head of Bed 30 degrees PT/OT eval Turn and reposition every 2 hours."
[2017-03-04] MEDS: Sodium Chloride 0.9% 1,000 ML IV SCH (21:52)
[2017-03-04] MEDS: (Lantus) Insulin Glargine, Recombinant SC SCH (22:24)
--- NOTE | 2017-03-04 23:36 | PN ---
DATE: 03/04/2017 NEUROLOGICAL PROBLEM: Status post shunt revision, metabolic encephalopathy. PHYSICAL EXAMINATION: GENERAL: The patient is awake, alert. Speech is clear. VITAL SIGNS: Blood pressure 137/72, mean arterial pressure of 93, respiratory rate 18, and temperature afebrile. EXTREMITIES: The patient moves all four extremities. Her examination is unchanged compared to my previous examination. The patient is scheduled to go for rehabilitation on Monday. Following this, the patient will be seeing me as outpatient. The patient definitely needs polysomnogram and possible video electroencephalogram to assess electrographic seizure activities and treat her hidden obstructive sleep apnea versus obesity and hyperventilation syndrome. Johnny Rose MD
[2017-03-05] MEDS: Albuterol-Ipratrop 3 mg / 0.5 (3 ml) UD INH SCH ×3 (02:37→13:07)
[2017-03-05 08:57] LABS: BASO % 0.8 % (0.0-2.0); EOS # 0.2 K/uL (0.0-0.7); EOS % 3.6 % (0.0-4.0); HEMATOCRIT 31.6 % (34.0-47.0); LYMPH # 1.3 K/uL (1.0-4.3); LYMPH % 21.9 % (20.0-40.0); MEAN CORPUSCULAR HEMOGLOBIN 30.6 pg (27.0-31.0); MEAN CORPUSCULAR HGB CONC 34.3 g/dL (33.0-37.0); MEAN PLATELET VOLUME 8.1 fL (7.2-11.7); MONO # 0.4 K/uL (0.0-0.8); MONO % 6.7 % (0.0-10.0); NRBC % 0.1 % (0.0-2.0); RED CELL DISTRIBUTION WIDTH 13.3 % (11.5-14.5); WHITE BLOOD COUNT 5.9 K/uL (4.8-10.8)
[2017-03-05 09:03] LABS: CHLORIDE 100 mmol/L (98-107); POTASSIUM 3.5 mmol/L (3.6-5.2); SODIUM 136 mmol/L (132-148)
[2017-03-05 09:05] LABS: ALB/GLOB RATIO 1.5 (1.0-2.1); ALKALINE PHOSPHATASE 53 U/L (38-126); ALT/SGPT 40 U/L (9-52); AST/SGOT 19 U/L (14-36); BILIRUBIN,TOTAL 0.7 mg/dL (0.2-1.3); BLOOD UREA NITROGEN 8 mg/dL (7-17); CALCIUM 8.2 mg/dl (8.6-10.4); CARBON DIOXIDE 29 mmol/L (22-30); GFR AFRICAN-AMERICAN > 60; GLUCOSE,RANDOM 197 mg/dL (65-105); TOTAL PROTEIN 5.3 g/dL (6.3-8.3)
[2017-03-05] MEDS ORDERED: Tmp-Smz 800 mg-160 mg DS Tab PO SCH (09:15)
[2017-03-05] MEDS ORDERED: Potassium Chloride 20 mEq ER Tab PO ONE (09:15)
[2017-03-05] MEDS ORDERED: Amoxicillin-Clav 500-125 mg Tab PO SCH (10:00)
[2017-03-05] MEDS ORDERED: POLYETHYLENE GLYCOL 3350 17 GM/Dose PACKET PO ONE (10:16)
[2017-03-05] MEDS: (Novolin R) Insulin Human Regular 100 units/ml vial SC SCH ×2 (10:32→12:42)
[2017-03-05] MEDS: Omega-3-Acid Ethyl Esters 1 GM Cap PO SCH (10:33)
[2017-03-05] MEDS: Pantoprazole 40 mg EC Tab PO SCH (10:33)
[2017-03-05] MEDS ORDERED: Piperacill/Tazo 3.375gm in Dex 3.375 GM/50 ML BAG IVPB SCH (11:00)
[2017-03-05 13:32] VITALS: BP 151/82; PULSE 88; RESP 20; TEMP 98; O2SAT 99
--- NOTE | 2017-03-05 17:39 | CP.PCM.DIS ---
Provider - Provider Date of Admission: 02/25/17 00:54 Attending physician: Philly Denny DO Consults: Dr. Urrutia Nephrology Dr. Rose Neurology Dr. Cazares General Surgery Dr. Curtis Neurosurgery. Time Spent in preparation of Discharge (in minutes): 45 Hospital Course - Lab Results Lab Results: Micro Results 03/03/17 20:45 Urine,Catheterized Urine Culture - Final Enterococcus Faecium 02/28/17 16:30 Blood Blood Culture - Preliminary NO GROWTH AFTER 4 DAYS 02/28/17 17:00 Blood Blood Culture - Preliminary NO GROWTH AFTER 4 DAYS 02/25/17 19:48 Cerebral Spinal Fluid Gram Stain - Final 02/25/17 19:48 Cerebral Spinal Fluid CSF Culture - Final No growth. 02/24/17 09:00 Urine Urine Culture - Final No Growth (<1,000 CFU/ML) Most Recent Lab Values WBC 5.9 K/uL (4.8-10.8) 03/05/17 08:35 RBC 3.55 Mil/uL (3.80-5.20) L 03/05/17 08:35 Hgb 10.9 g/dL (11.0-16.0) L 03/05/17 08:35 Hct 31.6 % (34.0-47.0) L 03/05/17 08:35 MCV 89.0 fL (81.0-99.0) 03/05/17 08:35 MCH 30.6 pg (27.0-31.0) 03/05/17 08:35 MCHC 34.3 g/dL (33.0-37.0) 03/05/17 08:35 RDW 13.3 % (11.5-14.5) 03/05/17 08:35 Plt Count 186 K/uL (130-400) 03/05/17 08:35 MPV 8.1 fL (7.2-11.7) 03/05/17 08:35 Neut % (Auto) 67.0 % (50.0-75.0) 03/05/17 08:35 Lymph % (Auto) 21.9 % (20.0-40.0) 03/05/17 08:35 [place] % (Auto) 6.7 % (0.0-10.0) 03/05/17 08:35 Eos % (Auto) 3.6 % (0.0-4.0) 03/05/17 08:35 Baso % (Auto) 0.8 % (0.0-2.0) 03/05/17 08:35 Neut # 3.9 K/uL (1.8-7.0) 03/05/17 08:35 Lymph # 1.3 K/uL (1.0-4.3) 03/05/17 08:35 [place] # 0.4 K/uL (0.0-0.8) 03/05/17 08:35 Eos # 0.2 K/uL (0.0-0.7) 03/05/17 08:35 Baso # 0.0 K/uL (0.0-0.2) 03/05/17 08:35 PT 12.8 SECONDS (9.7-12.2) H 03/01/17 07:37 INR 1.1 03/01/17 07:37 APTT 24 SECONDS (21-34) 03/01/17 07:37 Sodium 136 mmol/L (132-148) 03/05/17 08:35 Potassium 3.5 mmol/L (3.6-5.2) L 03/05/17 08:35 Chloride 100 mmol/L (98-107) 03/05/17 08:35 Carbon Dioxide 29 mmol/L (22-30) 03/05/17 08:35 Anion Gap 11 (10-20) 03/05/17 08:35 BUN 8 mg/dL (7-17) 03/05/17 08:35 Creatinine 0.6 mg/dL (0.7-1.2) L 03/05/17 08:35 Est GFR ( Amer) > 60 03/05/17 08:35 Est GFR (Non-Af Amer) > 60 03/05/17 08:35 POC Glucose (mg/dL) 347 mg/dL (65-110) H 03/05/17 11:25 Random Glucose 197 mg/dL (65-105) H 03/05/17 08:35 Hemoglobin A1c 8.7 % (4.2-6.5) H D 03/01/17 07:37 Serum Osmolality 300 mosm/kg (272-300) 02/28/17 17:04 Calcium 8.2 mg/dl (8.6-10.4) L 03/05/17 08:35 Phosphorus 2.4 mg/dL (2.5-4.5) L 03/03/17 06:35 Magnesium 1.7 mg/dL (1.6-2.3) 03/03/17 06:35 Total Bilirubin 0.7 mg/dL (0.2-1.3) 03/05/17 08:35 AST 19 U/L (14-36) 03/05/17 08:35 ALT 40 U/L (9-52) 03/05/17 08:35 Alkaline Phosphatase 53 U/L (38-126) 03/05/17 08:35 Ammonia < 9 umol/L (9-33) L 03/01/17 07:37 Troponin I < 0.0120 ng/mL (0.00-0.120) 02/24/17 23:46 NT-Pro-B Natriuret Pep 50.7 pg/mL (0-900) 02/24/17 23:46 Total Protein 5.3 g/dL (6.3-8.3) L 03/05/17 08:35 Albumin 3.2 g/dL (3.5-5.0) L 03/05/17 08:35 Globulin 2.1 gm/dL (2.2-3.9) L 03/05/17 08:35 Albumin/Globulin Ratio 1.5 (1.0-2.1) 03/05/17 08:35 Triglycerides 127 mg/dL (0-149) 03/01/17 07:37 Cholesterol 116 mg/dL (0-199) 03/01/17 07:37 LDL Cholesterol Direct 53 mg/dL (0-129) 03/01/17 07:37 HDL Cholesterol 44 mg/dL (30-70) 03/01/17 07:37 Urine Color Straw (YELLOW) 03/03/17 20:31 Urine Clarity Clear (Clear) 03/03/17 20:31 Urine pH 6.0 (5.0-8.0) 03/03/17 20:31 Ur Specific [place] 1.011 (1.003-1.030) 03/03/17 20:31 Urine Protein Negative mg/dL (NEGATIVE) 03/03/17 20:31 Urine Glucose (UA) 3+ mg/dL (Normal) H 03/03/17 20:31 Urine Ketones Negative mg/dL (NEGATIVE) 03/03/17 20:31 Urine Blood 1+ (NEGATIVE) H 03/03/17 20:31 Urine Nitrate Negative (NEGATIVE) 03/03/17 20:31 Urine Bilirubin Negative (NEGATIVE) 03/03/17 20:31 Urine Urobilinogen Normal mg/dL (0.2-1.0) 03/03/17 20:31 Ur Leukocyte Esterase Neg Alonso/uL (Negative) 03/03/17 20:31 Urine WBC (Auto) 2 /hpf (0-5) 03/03/17 20:31 Urine RBC (Auto) 6 /hpf (0-3) H 03/03/17 20:31 Ur Squamous Epith Cells < 1 /hpf (0-5) 03/01/17 07:22 Urine Bacteria Rare (<OCC) 03/03/17 20:31 Urine Osmolality 437 mosm/kg (300-1000) 03/01/17 07:26 Ur Random Creatinine 69.0 mg/dL 03/01/17 07:26 Ur Random Sodium 30 mmol/L 03/01/17 07:26 Ur Random Urea Nitrogn 363 mg/dL 03/02/17 22:30 Fluid Type Spinal fluid 02/25/17 19:51 CSF Volume 1 mL (0-1) 02/25/17 19:51 CSF Appearance Clear/colorless (CLEAR) 02/25/17 19:51 CSF WBC 3.0 /mm3 (0.0-5.0) 02/25/17 19:51 CSF RBC 169.0 /mm3 (0.0-0.0) H 02/25/17 19:51 CSF Total Cell Counted TEST NOT PERFORMED 02/25/17 19:51 CSF Monos/Macrophages TEST NOT PERFORMED 02/25/17 19:51 CSF Comment 02/25/17 19:51 CSF Glucose 105 mg/dL (40-70) H* 02/25/17 19:51 CSF Total Protein 16.0 mg/dL (12-60) 02/25/17 19:51 Complement C3 121.0 mg/dL (88.0-165.0) 03/01/17 07:40 Complement C4 32.9 mg/dL (14.0-44.0) 03/01/17 07:40 - Hospital Course Hospital Course: Initial history: 66F presents with increasing weakness, dizziness that waxes and wanes for the past 2 days. Patient had a PIERCING ARTIST shunt placed in 2012. Per daughter and sons, patient normally walks, but her walking has been bad lately. Family and patient informed that neurosurgery has been consulted and patient is to be NPO overnight for surgery tomorrow. Patient denies fever, visual changes, chest pain , SOB, extremity weakness, sensory changes. Hospital course: Patient was admitted to the hospital 02/24/2017. She CT scan which showed a malfunctioning PIERCING ARTIST shunt with hydrocephalus. She also had hyponatremia, acute renal failure as well. Dr Monzon Neurosurgery was consulted, she went to the OR for PIERCING ARTIST shunt revision. Consults for Nephrology for acute renal failure which resolved. General surgery consult for large bowel obstruction, which also resolved. She was treated for chronic conditions of asthma, htn, and hyperlipidemia as well. Patient was also given antibiotics as well. She had a Fernandez catheter placed which was removed. She was diagnosed with a UTI which she will get PO antibiotics for. CT scan of the head was used to diagnosed malfunction PIERCING ARTIST shunt. Other imaging includes CXR, CT of the abdomen/pelvis which showed large bowel obstruction. an EEG was also preformed by neurology consult Dr. Rose. Please see EMR to see all lab work, imaging studies, and notes written. Discharge instructions: Patient to to be discharged [facility] per Dr. Bai. Patient will need to return to ED if symptoms return or worsen. She will also need to her PMD after discharge for primary care as well. Patient will need to take Bactrim for five days beginning today for a UTI. discharge diagnosis 1. Hydrocephus PIERCING ARTIST Shunt malfunction 2. s/p PIERCING ARTIST revision 3. Large [place] obstruction -resolved- 4. Acute Renal failure -resolved 5. UTI 5. HTN-chronic 6. Hyperlipidemia-chornic 7. Asthma-chronic 8. Hyponatremia-resolved Discharge Exam - Head Exam Head Exam: absent: NORMOCEPHALIC Additional comments: surgical wound on her head with about [address] - Eye Exam Eye Exam: Normal appearance Pupil Exam: NORMAL ACCOMODATION - Respiratory Exam Respiratory Exam: Clear to PA & Lateral, NORMAL BREATHING PATTERN. absent: Rales, Rhonchi - Cardiovascular Exam Cardiovascular Exam: RRR, +S1, +S2 - GI/Abdominal Exam GI & Abdominal Exam: Normal Bowel Sounds, Soft. absent: Tenderness - Extremities Exam Extremities exam: pedal edema - Neurological Exam Neurological exam: Alert - Psychiatric Exam Psychiatric exam: Normal Affect, Normal Mood - Skin Skin Exam: Normal Color Discharge Plan - Discharge Medications Prescriptions: Amoxicillin/Clavulanate [Augmentin 500 MG-125 MG] 1 tab PO BID 7 Days tab - Follow Up Plan Condition: FAIR Disposition: REHAB FACILITY/REHAB UNIT Instructions: Acute Kidney Injury (DC), Hydrocephalus (DC), Hypertension (DC), Hypertension (GEN), Ventriculoperitoneal Shunt Placement (DC) Additional Instructions: Patient will need outpatient workup for possible sleep apnea recommended by neurology. Patient will need staple removal in one week per neurosurgery. Patient to to be discharged [facility] per Dr. Bai. Patient will need to return to ED if symptoms return or worsen. She will also need to her PMD after discharge for primary care as well. Patient will need to take Bactrim for five days beginning today for a UTI.
== END 2017-03-05 13:20 | disposition home or self-care (01) | DRG 32 ==
LOC: C.ER 21:38 → C.5S 02-25 00:54
PROVIDERS: ADMIT Hospitalist; ATTEND Hospitalist
PROC: 00W63JZ Revision of Synthetic Substitute in Cerebral Ventricle, Percutaneous Approach (ICD-10-PCS; principal; 2017-02-26)
DX: T85.01XA Breakdown (mechanical) of ventricular intracranial (communicating) shunt, initial encounter (principal); N17.9 Acute kidney failure, unspecified; K56.609 Unspecified intestinal obstruction, unspecified as to partial versus complete obstruction; G91.8 Other hydrocephalus; I10 Essential (primary) hypertension; D64.9 Anemia, unspecified; E11.9 Type 2 diabetes mellitus without complications; G91.2 (Idiopathic) normal pressure hydrocephalus; N39.0 Urinary tract infection, site not specified; E87.1 Hypo-osmolality and hyponatremia; Z68.41 Body mass index [BMI] 40.0-44.9, adult; N31.9 Neuromuscular dysfunction of bladder, unspecified; Z79.4 Long term (current) use of insulin; Y75.2 Prosthetic and other implants, materials and neurological devices associated with adverse incidents; E87.6 Hypokalemia; E78.5 Hyperlipidemia, unspecified; J45.909 Unspecified asthma, uncomplicated; E66.9 Obesity, unspecified

== ENCOUNTER 2017-10-03 09:54 | Inpatient (IN) | payer MEDICARE, MEDICAID ==
[2017-10-03 10:16] VITALS: BMI 38.7
[2017-10-03 10:38] LABS: BASO # 0.1 K/uL (0.0-0.2); BASO % 0.9 % (0.0-2.0); EOS # 0.3 K/uL (0.0-0.7); EOS % 3.5 % (0.0-4.0); HEMOGLOBIN 13.1 g/dL (11.0-16.0); LYMPH # 2.1 K/uL (1.0-4.3); LYMPH % 28.5 % (20.0-40.0); MEAN CELL VOLUME 86.1 fL (81.0-99.0); MEAN CORPUSCULAR HEMOGLOBIN 29.3 pg (27.0-31.0); MEAN PLATELET VOLUME 8.8 fL (7.2-11.7); MONO # 0.4 K/uL (0.0-0.8); MONO % 5.2 % (0.0-10.0); NEUT # 4.6 K/uL (1.8-7.0); NEUT % 61.9 % (50.0-75.0); NRBC % 0.1 % (0.0-2.0); RBC 4.47 Mil/uL (3.80-5.20); RED CELL DISTRIBUTION WIDTH 14.9 % (11.5-14.5); WHITE BLOOD COUNT 7.4 K/uL (4.8-10.8)
[2017-10-03 10:53] LABS: INR 1.1; PROTHROMBIN TIME 11.5 SECONDS (9.7-12.2)
[2017-10-03 10:57] LABS: ALB/GLOB RATIO 1.3 (1.0-2.1); ALBUMIN 3.5 g/dL (3.5-5.0); ALT/SGPT 23 U/L (9-52); AST/SGOT 28 U/L (14-36); BLOOD UREA NITROGEN 16 mg/dL (7-17); CALCIUM 8.7 mg/dl (8.6-10.4); GFR AFRICAN-AMERICAN > 60; GFR NON-AFRICAN AMERICAN > 60
--- NOTE | 2017-10-03 10:59 | RAD ---
PROCEDURE: HISTORY: ams COMPARISON: Shuntogram 02/24/2017. And abdominal obstructive series 03/01/2017 TECHNIQUE: Single frontal view chest, 2 frontal views of the abdomen and frontal lateral view of the head and neck FINDINGS: Since the prior shuntogram there is a 2nd to be gaining an an apparent connection in the right side of the neck projecting over the anterior right chest wall paralleling the vertical course of the prior shuntogram over the right upper quadrant in correlating and ultimately having its tip projects over the left L5-S1 level. This 2nd and paralleling shunt over the right thoraco lumbar level is visualized on the prior abdominal obstructive series 03/01/2017. Is better seen on the current image. Its proximal section appears to be gland again on the neck level per lateral view of the S: Neck series 3, image 1 The pre existing right ventriculoperitoneal shunt catheter thoraco abdominal section remains intact as well. The course from the right side of the neck to the cranium appears as before and grossly intact. IMPRESSION: Additional right sided shunt catheter segment coursing from right neck anterior chest intact abdomen as referenced above. Pre-existing right ventricular peritoneal shunt catheter segment unchanged.
--- NOTE | 2017-10-03 11:02 | RAD ---
PROCEDURE: CHEST RADIOGRAPH, 1 VIEW HISTORY: AMS COMPARISON: Shuntogram 02/24/2017. And abdominal obstructive series 03/01/2017. Chest x-ray portable semi-erect 02/28/2017 FINDINGS: Since the prior shuntogram there is a 2nd to be gaining an an apparent connection in the right side of the neck projecting over the anterior right chest wall paralleling the vertical course of the prior shuntogram over the right upper quadrant in correlating and ultimately having its tip projects over the left L5-S1 level. This 2nd and paralleling shunt over the right thoraco lumbar level is visualized on the prior abdominal obstructive series 03/01/2017. Is better seen on the current image. Its proximal section appears to be gland again on the neck level per lateral view of the S: Neck series 3, image 1 The pre existing right ventriculoperitoneal shunt catheter thoraco abdominal section remains intact as well. The course from the right side of the neck to the cranium appears as before and grossly intact. LUNGS: Shallow lung volumes. No interval consolidation. Two catheters project over the right jossue thorax, upper abdomen and neck consistent with SAND MILL GRINDER shunt. PLEURA: No pneumothorax or pleural fluid seen. CARDIOVASCULAR: Normal. OSSEOUS STRUCTURES: No significant abnormalities. VISUALIZED UPPER ABDOMEN: Two catheters project over the right jossue thorax, upper abdomen and neck consistent with SAND MILL GRINDER shunt. OTHER FINDINGS: None. IMPRESSION: No active disease. Two catheters project over the right jossue thorax, upper abdomen and neck consistent with SAND MILL GRINDER shunt.
--- NOTE | 2017-10-03 11:52 | CT ---
PROCEDURE: CT HEAD WITHOUT CONTRAST. HISTORY: Altered mental status COMPARISON: 03/09/2017 TECHNIQUE: Axial computed tomography images were obtained through the head/brain without intravenous contrast. Radiation dose: Total exam DLP = 844 mGy-cm. This CT exam was performed using one or more of the following dose reduction techniques: Automated exposure control, adjustment of the mA and/or kV according to patient size, and/or use of iterative reconstruction technique. FINDINGS: HEMORRHAGE: No intracranial hemorrhage. BRAIN: Scattered focal lucencies in the subcortical and periventricular white matter suggestive for chronic microvascular ischemic change. Focal hypodensity in the right basal ganglia suggestive for a lacunar infarct. Additional focal hypodensity seen within the lateral aspect of the left cerebellum also suggestive for a chronic lacunar infarct. VENTRICLES: Right frontal ULTRASOUND SPEC shunt catheter remains in stable position. Overall increased in ventricular size and volume of the ventricular system suggestive for worsening hydrocephalus. CALVARIUM: Unremarkable. PARANASAL SINUSES: Unremarkable as visualized. No significant inflammatory changes. MASTOID AIR CELLS: Unremarkable as visualized. No inflammatory changes. OTHER FINDINGS: None. IMPRESSION: Interval increase in size and volume of the ventricular system suggestive for worsening hydrocephalus. ULTRASOUND SPEC shunt appears in stable position. Clinical correlation. Chronic microvascular ischemic changes. Chronic lacunar infarcts as described above. If symptoms persists, further evaluation with MRI may be helpful if clinically indicated.
--- NOTE | 2017-10-03 12:15 | C.PDOC ---
History Of Present Illness 66 y/o female, w/PMhx of hydrocephalus w/SOAKER SODA WORKER shunt, brought to ER by ambulance for evaluation of confusion. after patient was found on the floor by her son. As per son, patient was confused. Son states that the patient has experienced these symptoms in the past and it was related to her SOAKER SODA WORKER Shunt. Patient denies having any complaints at this time. Patient is more alert and oriented x3. Time Seen by Provider: 10/03/17 10:04 Chief Complaint (Nursing): Altered Mental Status History Per: Patient, Family History/Exam Limitations: None Onset/Duration Of Symptoms: Hrs Current Symptoms Are (Timing): Gone Severity: Moderate Past Medical History Reviewed: Historical Data, Nursing Documentation, Vital Signs Vital Signs: Last Vital Signs Temp 97.5 F L 10/05/17 07:15 Pulse 87 10/05/17 07:15 Resp 20 10/05/17 07:15 BP 114/77 10/05/17 10:23 Pulse Ox 96 10/05/17 10:43 - Medical History PMH: Asthma, Diabetes, HTN, Hypercholesterolemia, Hyperlipidemia Other Surgeries: Hx of surgeries - [facility] Procedures REVISION OF SYNTH SUB IN CEREB VENT, PERC APPROACH (02/25/17) Family History: States: No Known Family Hx - Social History Hx Alcohol Use: Yes Hx Substance Use: No - Immunization History Hx Influenza Vaccination: Yes Hx Pneumococcal Vaccination: No Review Of Systems Except As Marked, All Systems Reviewed And Found Negative. Constitutional: Negative for: Fever, Chills Neurological: Positive for: Confusion Physical Exam - Physical Exam Appears: Non-toxic, No Acute Distress, Other (alert, orientedx3) Skin: Normal Color, Warm, Dry Head: Atraumatic, Normacephalic, Other (SOAKER SODA WORKER shunt in place) Eye(s): bilateral: Normal Inspection Nose: Normal Oral Mucosa: Moist Neck: Supple Chest: Symmetrical Cardiovascular: Rhythm Regular Respiratory: Normal Breath Sounds, No Rales, No Rhonchi, No Wheezing Gastrointestinal/Abdominal: Normal Exam, Soft, No Tenderness Neurological/Psych: Oriented x3, Normal Speech ED Course And Treatment - Laboratory Results Result Diagrams: 10/04/17 07:15 10/04/17 07:15 ECG: Interpreted By Me, Viewed By Me ECG Rhythm: Sinus Rhythm ECG Interpretation: Normal Interpretation Of ECG: NSR with normal intervals, normal axises, and no ST/ T wave abnormalities Rate From EC O2 Sat by Pulse Oximetry: 96 (RA) Pulse Ox Interpretation: Normal - Other Rad CXR X-Ray: Viewed By Me, Read By Radiologist Interpretation: PROCEDURE: CHEST RADIOGRAPH, 1 VIEW. HISTORY: AMS. COMPARISON: Shuntogram 02/24/2017. And abdominal obstructive series 2016. Chest x-ray portable semi-erect 02/28/2017. FINDINGS: Since the prior shuntogram there is a 2nd to be gaining an an apparent connection in the right side of the neck projecting over the anterior right chest wall paralleling the vertical course of the prior shuntogram over the right upper quadrant in correlating and ultimately having its tip projects over the left L5-S1 level. This 2nd and paralleling shunt over the right thoraco lumbar level is visualized on the prior abdominal obstructive series 03/01/2017. Is better seen on the current image. Its proximal section appears to be gland again on the neck level per lateral view of the S: Neck series 3, image 1. The pre existing right ventriculoperitoneal shunt catheter thoraco abdominal section remains intact as well. The course from the right side of the neck to the cranium appears as before and grossly intact. LUNGS: Shallow lung volumes. No interval consolidation. Two catheters project over the right jossue thorax, upper abdomen and neck consistent with SOAKER SODA WORKER shunt. PLEURA: No pneumothorax or pleural fluid seen. CARDIOVASCULAR: Normal. OSSEOUS STRUCTURES: No significant abnormalities. VISUALIZED UPPER ABDOMEN: Two catheters project over the right jossue thorax, upper abdomen and neck consistent with SOAKER SODA WORKER shunt. OTHER FINDINGS: None. IMPRESSION: No active disease. Two catheters project over the right jossue thorax, upper abdomen and neck consistent with SOAKER SODA WORKER shunt. - CT Scan/US CT- Head Other Rad Studies (CT/US): Read By Radiologist, Radiology Report Reviewed CT/US Interpretation: PROCEDURE: CT HEAD WITHOUT CONTRAST. HISTORY: Altered mental status. COMPARISON: 03/09/2017. TECHNIQUE: Axial computed tomography images were obtained through the head/brain without intravenous contrast. Radiation dose: Total exam DLP = 844 mGy-cm. This CT exam was performed using one or more of the following dose reduction techniques: Automated exposure control, adjustment of the mA and/or kV according to patient size, and/or use of iterative reconstruction technique. FINDINGS: HEMORRHAGE: No intracranial hemorrhage. BRAIN: Scattered focal lucencies in the subcortical and periventricular white matter suggestive for chronic microvascular ischemic change. Focal hypodensity in the right basal ganglia suggestive for a lacunar infarct. Additional focal hypodensity seen within the lateral aspect of the left cerebellum also suggestive for a chronic lacunar infarct. VENTRICLES: Right frontal SOAKER SODA WORKER shunt catheter remains in stable position. Overall increased in ventricular size and volume of the ventricular system suggestive for worsening hydrocephalus. CALVARIUM: Unremarkable. PARANASAL SINUSES: Unremarkable as visualized. No significant inflammatory changes. MASTOID AIR CELLS: Unremarkable as visualized. No inflammatory changes. OTHER FINDINGS: None. IMPRESSION: Interval increase in size and volume of the ventricular system suggestive for worsening hydrocephalus. SOAKER SODA WORKER shunt appears in stable position. Clinical correlation. Chronic microvascular ischemic changes. Chronic lacunar infarcts as described above. If symptoms persists, further evaluation with MRI may be helpful if clinically indicated. Medical Decision Making Medical Decision Making: Assessment: Confusion Plan: --Labs --CT - Head --EKG --CXR Updates: Case discussed with hospitalist, . Patient will be admitted under the service of . Dr.Friedlander Hancock, neurosurgeon, will be on consult. Disposition - Disposition Disposition: HOSPITALIZED Disposition Time: 12:08 Condition: GOOD - Clinical Impression Clinical Impression: Hydrocephalus, Mental status change - Scribe Statement The provider has reviewed the documentation as recorded by the James Gordon Provider Attestation: All medical record entries made by the Ricibjulio were at my direction and personally dictated by me. I have reviewed the chart and agree that the record accurately reflects my personal performance of the history, physical exam, medical decision making, and the department course for this patient. I have also personally directed, reviewed, and agree with the discharge instructions and disposition
[2017-10-03] MEDS ORDERED: Glucagon Recombinant 1 mg Inj IM PRN (13:28)
[2017-10-03] MEDS ORDERED: Dextrose 50% SYRINGE Inj (50 ml) IV PRN (13:28)
--- NOTE | 2017-10-03 13:47 | CP.PCM.HP ---
<Lisandra Tran - Last Filed: 10/03/17 16:03> History of Present Illness - History of Present Illness History of Present Illness: CC: "I fell" HPI: 66 year old female with a past medical history of hydrocephalus w/SOCIAL WORK NURSE shunt , brought to ER by ambulance for evaluation of confusion. Per the son the patient was found on the floor after falling. The patient does not remember the fall. As per son, patient was confused and has not been at her baseline mental status for about 3 weeks but worse in the last day. She was last seen by neurosurgery last to adjust the shunt and previously was there 2 weeks ago as well. He states she has been "off" since the previous shunt adjustment. Son states that the patient has experienced these symptoms in the past and it was related to her SOCIAL WORK NURSE Shunt which she was admitted and had it revised in February 2017. Patient denies having any complaints at this time. Patient is more alert and oriented to person and place but not to time. Patient has no complaints of pain, chest pain, shortness of breath. Per the family the patient is eating well and having normal bowel movements. She has unsteady gait and can be incontinent of urine at time. Head CT and shuntogram performed today in the ED were normal and showed the shunt is intact, Although the ventricles have increased in size since the last admission in February 2017. Of note the patient does not follow up with a neurologist. PMH: HTN, Diabetes, hypercholesterolemia, and asthma PSH: SOCIAL WORK NURSE shunt, placed by neurosurgeon Dr. Shepherd at [facility] with revision in 02/2017 at [facility] Allergies: NKDA Meds: Wellbutrin 150mg Po daily. Norvasc 5mg Po daily. Valsartan/HCTZ 12.5/ 160mg PO daily Simvastatin 40mg PO HS, Metformin 1000mg PO BID Meclizine 25mg PO Q12 hours, Xalatan Opth drop OU HS, Humalog/Levemir (do not know dosing), Vascepa 1gm PO BID, Gabapentin 100mg PO TID, Colace 100mg PO daily , Dexilant 60mg PO daily Famhx: denies Social: Denies drug/alcohol/tobacco use PMD: Dr. Keith Ponce Neurosurgeon: Dr. Zimmerman Proxy: Maribeth Yanez (daughter) [phone] Present on Admission - Present on Admission Any Indicators Present on Admission: No Review of Systems - Constitutional Constitutional: absent: Chills, Fever - EENT Eyes: absent: Blurred Vision, Change in Vision Ears: absent: Dizziness - Cardiovascular Cardiovascular: absent: Chest Pain, Chest Pain at Rest, Syncope - Respiratory Respiratory: absent: Cough, Dyspnea, Dyspnea on Exertion - Gastrointestinal Gastrointestinal: absent: Abdominal Pain, Constipation, Diarrhea, Nausea, Vomiting - Genitourinary Genitourinary: Urinary Incontinence. absent: Change in Urinary Stream, Difficulty Urinating - Musculoskeletal Musculoskeletal: absent: Numbness, Tingling - Hematologic/Lymphatic Hematologic: absent: Easy Bleeding, Easy Bruising Past Patient History - Infectious Disease Hx of Infectious Diseases: None - Past Medical History & Family History Past Medical History?: Yes - Past Social History Smoking Status: Never Smoked - CARDIAC Hx Hypercholesterolemia: Yes Hx Hypertension: Yes - PULMONARY Hx Asthma: Yes - NEUROLOGICAL Hx Neurological Disorder: Yes Hx Vertigo: Yes Other/Comment: Hydrocephalus with Shunt - ENDOCRINE/METABOLIC Hx Endocrine Disorders: Yes Hx Diabetes Mellitus Type 2: Yes - MUSCULOSKELETAL/RHEUMATOLOGICAL Hx Musculoskeletal Disorders: Yes Hx Falls: Yes - PSYCHIATRIC Hx Substance Use: No - SURGICAL HISTORY Hx Surgeries: Yes Other/Comment: Shunt for Hydrocephalus - ANESTHESIA Hx Anesthesia: Yes Hx Anesthesia Reactions: No Meds Allergies/Adverse Reactions: Allergies Allergy/AdvReac Type Severity Reaction Status Date / Time No Known Allergies Allergy Verified 12/08/15 16:19 Physical Exam - Constitutional Appears: Non-toxic, No Acute Distress - Head Exam Head Exam: ATRAUMATIC, NORMAL INSPECTION - Eye Exam Eye Exam: EOMI Pupil Exam: NORMAL ACCOMODATION - ENT Exam ENT Exam: Mucous Membranes Moist - Respiratory Exam Respiratory Exam: Clear to Auscultation Bilateral, NORMAL BREATHING PATTERN. absent: Respiratory Distress - Cardiovascular Exam Cardiovascular Exam: REGULAR RHYTHM, +S1, +S2 - GI/Abdominal Exam GI & Abdominal Exam: Normal Bowel Sounds, Soft. absent: Distended, Firm, Guarding, Tenderness - Extremities Exam Extremities exam: Positive for: normal inspection - Back Exam Back exam: NORMAL INSPECTION - Neurological Exam Neurological exam: Alert Additional comments: Not able to ambulate without help. Oriented to person and place but not to time. - Psychiatric Exam Psychiatric exam: Normal Affect, Normal Mood - Skin Skin Exam: Dry, Intact, Normal Color Results - Vital Signs Recent Vital Signs: Last Vital Signs Temp 98.7 F 10/03/17 09:55 Pulse 98 H 10/03/17 13:15 Resp 17 10/03/17 13:15 BP 141/90 10/03/17 13:15 Pulse Ox 96 10/03/17 13:37 - Labs Result Diagrams: 10/03/17 10:17 10/03/17 10:30 Labs: Laboratory Results - last 24 hr 10/03/17 10/03/17 10/03/17 10:02 10:17 10:30 WBC 7.4 RBC 4.47 Hgb 13.1 D Hct 38.5 MCV 86.1 D MCH 29.3 MCHC 34.0 RDW 14.9 H Plt Count 204 MPV 8.8 Neut % (Auto) 61.9 Lymph % (Auto) 28.5 Richardson % (Auto) 5.2 Eos % (Auto) 3.5 Baso % (Auto) 0.9 Neut # (Auto) 4.6 Lymph # (Auto) 2.1 Richardson # (Auto) 0.4 Eos # (Auto) 0.3 Baso # (Auto) 0.1 PT INR APTT Sodium 138 Potassium 4.1 Chloride 101 Carbon Dioxide 25 Anion Gap 17 BUN 16 Creatinine 0.7 Est GFR ( Amer) > 60 Est GFR (Non-Af Amer) > 60 POC Glucose (mg/dL) 312 H Random Glucose 283 H Calcium 8.7 Total Bilirubin 0.4 AST 28 ALT 23 Alkaline Phosphatase 70 Ammonia Total Creatine Kinase 136 H Troponin I < 0.0120 Total Protein 6.4 Albumin 3.5 Globulin 2.8 Albumin/Globulin Ratio 1.3 10/03/17 10/03/17 10:30 10:30 WBC RBC Hgb Hct MCV MCH MCHC RDW Plt Count MPV Neut % (Auto) Lymph % (Auto) Richardson % (Auto) Eos % (Auto) Baso % (Auto) Neut # (Auto) Lymph # (Auto) Richardson # (Auto) Eos # (Auto) Baso # (Auto) PT 11.5 INR 1.1 APTT 26 Sodium Potassium Chloride Carbon Dioxide Anion Gap BUN Creatinine Est GFR ( Amer) Est GFR (Non-Af Amer) POC Glucose (mg/dL) Random Glucose Calcium Total Bilirubin AST ALT Alkaline Phosphatase Ammonia 11 D Total Creatine Kinase Troponin I Total Protein Albumin Globulin Albumin/Globulin Ratio Assessment & Plan - Assessment and Plan (Free Text) Assessment: Hydrocephalus SOCIAL WORK NURSE Shunt repair 02/26/17, was placed in 2014 Neurosurgery: Dr Hancock/Ella on board * Management per neurosurgery --> Patient's family is to call the office tomorrow and be seen on for outpatient shunt adjustment. Nothing to do at this time inpatient. (family was informed of these instructions) CT Head (10/03): shunt in place ventricles has enlarged compared to prior study, chronic microvascular changes, old lucanar infarcts, Shuntogram (10/03): ventricular catheter entering from a right sided approac, visualized extracranial tubing intact Altered Mental Status likely secondary to NPH F/u UA, blood cultures, urine culture Patient is afebrile, no white count Chest X ray - negative Troponin negative Ammonia 11 DM 2 Uncontrolled diabetes Accuchecks QAC and HS Medium Dose insulin sliding scale Will hold home metformin while in the hospital Patient is unaware of inslulin dosing, will need to follow up outpatient HLD Continue statin Asthma Duonebs prn Controlled Not wheezing Hypertensio controlled Norvasc 5mg PO daily Prophylactic measure Protonix 40mg PO daily SCDs NPO until further discussion with neurosurgery Dipo: Likely discharge tomorrow pending prelim results of urine and blood cultures. Continue home medications. <David Beaulieu H - Last Filed: 10/03/17 16:51> Results - Vital Signs Recent Vital Signs: Last Vital Signs Temp 98.7 F 10/03/17 09:55 Pulse 75 10/03/17 15:45 Resp 15 10/03/17 15:45 BP 113/74 10/03/17 15:45 Pulse Ox 96 10/03/17 15:45 - Labs Result Diagrams: 10/03/17 10:17 10/03/17 10:30 Labs: Laboratory Results - last 24 hr 10/03/17 10/03/17 10/03/17 10:02 10:17 10:30 WBC 7.4 RBC 4.47 Hgb 13.1 D Hct 38.5 MCV 86.1 D MCH 29.3 MCHC 34.0 RDW 14.9 H Plt Count 204 MPV 8.8 Neut % (Auto) 61.9 Lymph % (Auto) 28.5 Richardson % (Auto) 5.2 Eos % (Auto) 3.5 Baso % (Auto) 0.9 Neut # (Auto) 4.6 Lymph # (Auto) 2.1 Richardson # (Auto) 0.4 Eos # (Auto) 0.3 Baso # (Auto) 0.1 PT INR APTT Sodium 138 Potassium 4.1 Chloride 101 Carbon Dioxide 25 Anion Gap 17 BUN 16 Creatinine 0.7 Est GFR ( Amer) > 60 Est GFR (Non-Af Amer) > 60 POC Glucose (mg/dL) 312 H Random Glucose 283 H Calcium 8.7 Total Bilirubin 0.4 AST 28 ALT 23 Alkaline Phosphatase 70 Ammonia Total Creatine Kinase 136 H Troponin I < 0.0120 Total Protein 6.4 Albumin 3.5 Globulin 2.8 Albumin/Globulin Ratio 1.3 Urine Color Urine Clarity Urine pH Ur Specific [place] Urine Protein Urine Glucose (UA) Urine Ketones Urine Blood Urine Nitrate Urine Bilirubin Urine Urobilinogen Ur Leukocyte Esterase Urine WBC (Auto) Ur Squamous Epith Cells Urine Bacteria 10/03/17 10/03/17 10/03/17 10:30 10:30 13:49 WBC RBC Hgb Hct MCV MCH MCHC RDW Plt Count MPV Neut % (Auto) Lymph % (Auto) Richardson % (Auto) Eos % (Auto) Baso % (Auto) Neut # (Auto) Lymph # (Auto) Richardson # (Auto) Eos # (Auto) Baso # (Auto) PT 11.5 INR 1.1 APTT 26 Sodium Potassium Chloride Carbon Dioxide Anion Gap BUN Creatinine Est GFR ( Amer) Est GFR (Non-Af Amer) POC Glucose (mg/dL) 253 H Random Glucose Calcium Total Bilirubin AST ALT Alkaline Phosphatase Ammonia 11 D Total Creatine Kinase Troponin I Total Protein Albumin Globulin Albumin/Globulin Ratio Urine Color Urine Clarity Urine pH Ur Specific [place] Urine Protein Urine Glucose (UA) Urine Ketones Urine Blood Urine Nitrate Urine Bilirubin Urine Urobilinogen Ur Leukocyte Esterase Urine WBC (Auto) Ur Squamous Epith Cells Urine Bacteria 10/03/17 10/03/17 15:57 16:19 WBC RBC Hgb Hct MCV MCH MCHC RDW Plt Count MPV Neut % (Auto) Lymph % (Auto) Richardson % (Auto) Eos % (Auto) Baso % (Auto) Neut # (Auto) Lymph # (Auto) Richardson # (Auto) Eos # (Auto) Baso # (Auto) PT INR APTT Sodium Potassium Chloride Carbon Dioxide Anion Gap BUN Creatinine Est GFR ( Amer) Est GFR (Non-Af Amer) POC Glucose (mg/dL) 214 H Random Glucose Calcium Total Bilirubin AST ALT Alkaline Phosphatase Ammonia Total Creatine Kinase Troponin I Total Protein Albumin Globulin Albumin/Globulin Ratio Urine Color Yellow Urine Clarity Clear Urine pH 5.0 Ur Specific [place] 1.021 Urine Protein Negative Urine Glucose (UA) 3+ H Urine Ketones Negative Urine Blood Negative Urine Nitrate Negative Urine Bilirubin Negative Urine Urobilinogen Normal Ur Leukocyte Esterase Neg Urine WBC (Auto) < 1 Ur Squamous Epith Cells < 1 Urine Bacteria Rare Attending/Attestation - Attestation I have personally seen and examined this patient.: Yes I have fully participated in the care of the patient.: Yes I have reviewed all pertinent clinical information: Yes Notes (Text): 10/03/17 16:51 Medical Attending: Patient was seen and examined by me, agree with the above note by medical translator. Patient's family members were at bedside in the emergency room. She was awake alert, she was answering questions. Sometimes she was able to answer the questions correctly other time she was not she had some difficulty recalling the day time. She was able to recall her birthday correctly She underwent a CAT scan earlier this morning as well as a shuntogram. It reports that the shunt appears to be stable and intact but that possibly her ventricles were larger in size previous. When we saw examined her she was not in any acute distress. We put a call out to neurosurgery, who from what I understand later got back to us and explained that probably this is something that could be handled outpatient may would like the patient to follow-up with them this coming . So will observe her overnight if she remains stable the intent to discharge her and she'll need to follow-up with her neurosurgeon Thank you very much, David Beaulieu
[2017-10-03] MEDS ORDERED: Albuterol-Ipratrop 3 mg / 0.5 (3 ml) UD INH PRN (16:14)
[2017-10-03 16:26] LABS: SQUAMOUS EPITHIAL < 1 /hpf (0-5); URINE BACTERIA RARE (<OCC); URINE BILIRUBIN NEGATIVE (NEGATIVE); URINE BLOOD NEGATIVE (NEGATIVE); URINE CLARITY Clear (Clear); URINE COLOR Yellow (YELLOW); URINE GLUCOSE (UA) 3+ mg/dL (Normal); URINE LEUKOCYTE ESTERASE NEG Leu/uL (Negative); URINE PROTEIN NEGATIVE (NEGATIVE); URINE UROBILINOGEN NORMAL mg/dL (0.2-1.0)
[2017-10-03] MEDS: (Novolin R) Insulin Human Regular 100 units/ml vial SC SCH ×3 (18:00→22:31)
[2017-10-03] MEDS: VASCEPA 1GM PO SCH (19:49)
[2017-10-03] MEDS: Latanoprost 2.5 ml Opht Soln OU SCH (21:53)
[2017-10-03] MEDS ORDERED: Home Med 1 UNIT (Simvastatin [Simvastatin] 40 MG) PO SCH (22:00)
[2017-10-04 07:40] LABS: BASO # 0.1 K/uL (0.0-0.2); BASO % 0.9 % (0.0-2.0); EOS # 0.2 K/uL (0.0-0.7); EOS % 3.9 % (0.0-4.0); LYMPH # 1.8 K/uL (1.0-4.3); LYMPH % 30.1 % (20.0-40.0); MEAN CELL VOLUME 84.8 fL (81.0-99.0); MEAN CORPUSCULAR HGB CONC 35.4 g/dL (33.0-37.0); MEAN PLATELET VOLUME 8.6 fL (7.2-11.7); MONO # 0.3 K/uL (0.0-0.8); MONO % 5.9 % (0.0-10.0); NEUT # 3.5 K/uL (1.8-7.0); NEUT % 59.2 % (50.0-75.0); NRBC % 0.1 % (0.0-2.0); RBC 4.35 Mil/uL (3.80-5.20); RED CELL DISTRIBUTION WIDTH 14.7 % (11.5-14.5); WHITE BLOOD COUNT 5.9 K/uL (4.8-10.8)
[2017-10-04] MEDS: (Novolin R) Insulin Human Regular 100 units/ml vial SC SCH ×4 (08:01→21:29)
[2017-10-04 08:03] LABS: BLOOD UREA NITROGEN 13 mg/dL (7-17); GFR AFRICAN-AMERICAN > 60; GFR NON-AFRICAN AMERICAN > 60
--- NOTE | 2017-10-04 09:14 | CP.PCM.PN ---
<Jaleesa Richard - Last Filed: 10/04/17 13:30> Subjective - Date & Time of Evaluation Date of Evaluation: 10/04/17 Time of Evaluation: 09:16 - Subjective Subjective: Progress Note. Patient seen and examined at bedside. No acute events overnight. Patient denies fever, chills, nausea, vomiting. Patient denies any complaints at this time. Objective - Vital Signs/Intake and Output Vital Signs (last 24 hours): Temp Pulse Resp BP Pulse Ox 98.2 F 75 20 129/82 97 10/04/17 08:01 10/04/17 08:01 10/04/17 08:01 10/04/17 08:01 10/04/17 08:01 Intake and Output: 10/04/17 10/04/17 06:59 18:59 Intake Total 200 Balance 200 - Medications Medications: Current Medications Albuterol/Ipratropium (Duoneb 3 Mg/0.5 Mg (3 Ml) Ud) 3 ml INH RQ6 PRN PRN Reason: Shortness of Breath Amlodipine Besylate (Norvasc) 5 mg PO DAILY [facility] Bupropion HCl (Wellbutrin Xl) 150 mg PO DAILY [facility] Dextrose (Dextrose 50% Inj) 0 ml IV STAT PRN; Protocol PRN Reason: Hypoglycemia Protocol Dextrose (Glutose 15) 0 gm PO ONCE PRN; Protocol PRN Reason: Hypoglycemia Protocol Docusate Sodium (Colace) 100 mg PO DAILY [facility] Gabapentin (Neurontin) 100 mg PO TID [facility] Last Admin: 10/03/17 19:52 Dose: 100 mg Glucagon (Glucagen Diagnostic Kit) 0 mg IM STAT PRN; Protocol PRN Reason: Hypoglycemia Protocol Heparin Sodium (Porcine) (Heparin) 5,000 units SC Q12 [facility] Home Med (Patient's Own Medication) 1 tab PO BID [facility] Last Admin: 10/03/17 19:49 Dose: 1 tab Hydrochlorothiazide (Microzide) 12.5 mg PO DAILY [facility] Dextrose (Dextrose 5% In Water 1000 Ml) 1,000 mls @ 0 mls/hr IV .Q0M PRN; Protocol; Per Protocol PRN Reason: Hypoglycemia Protocol Insulin Human Regular (Novolin R) 0 unit SC ACHS MOLLY PRN Reason: Protocol Last Admin: 10/04/17 08:01 Dose: 2 unit Latanoprost (Xalatan Opht) 0 ml OU HS [facility] Last Admin: 10/03/17 21:53 Dose: 2.5 ml Losartan Potassium (Cozaar) 100 mg PO DAILY [facility] Pantoprazole Sodium (Protonix Ec Tab) 40 mg PO DAILY [facility] Rosuvastatin Calcium (Crestor) 20 mg PO HS MOLLY Last Admin: 10/03/17 21:51 Dose: 20 mg - Labs Labs: 10/04/17 07:15 10/04/17 07:15 PT 11.5 SECONDS (9.7-12.2) 10/03/17 10:30 INR 1.1 10/03/17 10:30 APTT 26 SECONDS (21-34) 10/03/17 10:30 - Constitutional Appears: Non-toxic, No Acute Distress - Head Exam Head Exam: ATRAUMATIC, NORMAL INSPECTION, NORMOCEPHALIC - Eye Exam Eye Exam: EOMI, Normal appearance - ENT Exam ENT Exam: Mucous Membranes Moist, Normal Exam - Neck Exam Neck Exam: Full ROM, Normal Inspection - Respiratory Exam Respiratory Exam: Clear to Ausculation Bilateral, NORMAL BREATHING PATTERN - Cardiovascular Exam Cardiovascular Exam: REGULAR RHYTHM, +S1, +S2. absent: Bradycardia, Tachycardia - GI/Abdominal Exam GI & Abdominal Exam: Soft, Normal Bowel Sounds. absent: Tenderness - Extremities Exam Extremities Exam: Full ROM. absent: Pedal Edema - Back Exam Back Exam: Full ROM, NORMAL INSPECTION. absent: CVA tenderness (L), CVA tenderness (R), paraspinal tenderness - Neurological Exam Neurological Exam: Alert, Awake, CN II-XII Intact - Psychiatric Exam Psychiatric exam: Normal Affect, Normal Mood - Skin Skin Exam: Dry, Intact, Normal Color Assessment and Plan - Assessment and Plan (Free Text) Assessment: Hydrocephalus [employer]IST[employer] Shunt repair 02/26/17, was placed in 2014 Neurosurgery: Dr Hancock/Ella on board * Management per neurosurgery: Patient's family is to call the office 10/04 and patient is to be seen on 10/05 for outpatient shunt adjustment. Nothing to do at this time inpatient. 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 Continue home medications. discussed with Dr. Beaulieu <David Beaulieu H - Last Filed: 10/04/17 14:00> Objective - Vital Signs/Intake and Output Vital Signs (last 24 hours): Temp Pulse Resp BP Pulse Ox 98.2 F 75 20 129/82 97 10/04/17 08:01 10/04/17 08:01 10/04/17 08:01 10/04/17 08:01 10/04/17 08:01 Intake and Output: 10/04/17 10/04/17 06:59 18:59 Intake Total 200 Balance 200 - Medications Medications: Current Medications Albuterol/Ipratropium (Duoneb 3 Mg/0.5 Mg (3 Ml) Ud) 3 ml INH RQ6 PRN PRN Reason: Shortness of Breath Amlodipine Besylate (Norvasc) 5 mg PO DAILY [facility] Last Admin: 10/04/17 09:48 Dose: 5 mg Bupropion HCl (Wellbutrin Xl) 150 mg PO DAILY [facility] Last Admin: 10/04/17 09:49 Dose: 150 mg Dextrose (Dextrose 50% Inj) 0 ml IV STAT PRN; Protocol PRN Reason: Hypoglycemia Protocol Dextrose (Glutose 15) 0 gm PO ONCE PRN; Protocol PRN Reason: Hypoglycemia Protocol Docusate Sodium (Colace) 100 mg PO DAILY [facility] Last Admin: 10/04/17 09:49 Dose: 100 mg Gabapentin (Neurontin) 100 mg PO TID [facility] Last Admin: 10/04/17 09:48 Dose: 100 mg Glucagon (Glucagen Diagnostic Kit) 0 mg IM STAT PRN; Protocol PRN Reason: Hypoglycemia Protocol Heparin Sodium (Porcine) (Heparin) 5,000 units SC Q12 [facility] Last Admin: 10/04/17 09:50 Dose: 5,000 units Home Med (Patient's Own Medication) 1 tab PO BID [facility] Last Admin: 10/04/17 09:48 Dose: 1 tab Hydrochlorothiazide (Microzide) 12.5 mg PO DAILY [facility] Last Admin: 10/04/17 09:49 Dose: 12.5 mg Dextrose (Dextrose 5% In Water 1000 Ml) 1,000 mls @ 0 mls/hr IV .Q0M PRN; Protocol; Per Protocol PRN Reason: Hypoglycemia Protocol Insulin Human Regular (Novolin R) 0 unit SC ACHS [facility] PRN Reason: Protocol Last Admin: 10/04/17 12:42 Dose: 4 unit Latanoprost (Xalatan Opht) 0 ml OU HS [facility] Last Admin: 10/03/17 21:53 Dose: 2.5 ml Losartan Potassium (Cozaar) 100 mg PO DAILY [facility] Last Admin: 10/04/17 09:49 Dose: 100 mg Pantoprazole Sodium (Protonix Ec Tab) 40 mg PO DAILY [facility] Last Admin: 10/04/17 09:50 Dose: 40 mg Rosuvastatin Calcium (Crestor) 20 mg PO HS [facility] Last Admin: 10/03/17 21:51 Dose: 20 mg - Labs Labs: 10/04/17 07:15 10/04/17 07:15 PT 11.5 SECONDS (9.7-12.2) 10/03/17 10:30 INR 1.1 10/03/17 10:30 APTT 26 SECONDS (21-34) 10/03/17 10:30 Attending/Attestation - Attestation I have personally seen and examined this patient.: Yes I have fully participated in the care of the patient.: Yes I have reviewed all pertinent clinical information, including history, physical exam and plan: Yes Notes (Text): 10/04/17 13:52 Medical attending: Patient was seen and examined by me. Agree with the above note by the resident The patient was not in any acute distress. The patient was able to follow all commands and was able to move all four extremities on command. The patient's sister was present at bedside. We did not meet her yesterday. Explained to sister that the patient needs to follow up with neurosurgery tommovilma at Dr Hancock office for adjustment of the shunt David Beaulieu
[2017-10-04] MEDS: VASCEPA 1GM PO SCH ×2 (09:48→18:20)
[2017-10-04] MEDS: buPROPion 150 mg/24 Hours XL Tab PO SCH (09:49)
[2017-10-04] MEDS: Pantoprazole 40 mg EC Tab PO SCH (09:50)
--- NOTE | 2017-10-04 14:04 | CP.PCM.DIS ---
<Jose ManuelJaleesa - Last Filed: 10/04/17 14:14> Provider - Provider Date of Admission: 10/03/17 12:11 Attending physician: David Beaulieu DO Consults: Dr. Blanca Hancock Time Spent in preparation of Discharge (in minutes): 35 Diagnosis - Discharge Diagnosis (1) Hydrocephalus Status: Acute Comment: Patient to have NET FRONT END DEVELOPER shunt adjusted 10/05 (2) NET FRONT END DEVELOPER (ventriculoperitoneal) shunt status Status: Acute Hospital Course - Lab Results Lab Results: Micro Results 10/03/17 10:17 Blood Blood Culture - Preliminary NO GROWTH AFTER 24 HOURS 10/03/17 10:17 Blood Blood Culture - Preliminary NO GROWTH AFTER 24 HOURS 10/03/17 15:57 Urine Urine Culture - Final No Growth (<1,000 CFU/ML) Most Recent Lab Values WBC 5.9 K/uL (4.8-10.8) 10/04/17 07:15 RBC 4.35 Mil/uL (3.80-5.20) 10/04/17 07:15 Hgb 13.0 g/dL (11.0-16.0) 10/04/17 07:15 Hct 36.9 % (34.0-47.0) 10/04/17 07:15 MCV 84.8 fL (81.0-99.0) 10/04/17 07:15 MCH 30.0 pg (27.0-31.0) 10/04/17 07:15 MCHC 35.4 g/dL (33.0-37.0) 10/04/17 07:15 RDW 14.7 % (11.5-14.5) H 10/04/17 07:15 Plt Count 206 K/uL (130-400) 10/04/17 07:15 MPV 8.6 fL (7.2-11.7) 10/04/17 07:15 Neut % (Auto) 59.2 % (50.0-75.0) 10/04/17 07:15 Lymph % (Auto) 30.1 % (20.0-40.0) 10/04/17 07:15 Ogle % (Auto) 5.9 % (0.0-10.0) 10/04/17 07:15 Eos % (Auto) 3.9 % (0.0-4.0) 10/04/17 07:15 Baso % (Auto) 0.9 % (0.0-2.0) 10/04/17 07:15 Neut # (Auto) 3.5 K/uL (1.8-7.0) 10/04/17 07:15 Lymph # (Auto) 1.8 K/uL (1.0-4.3) 10/04/17 07:15 Ogle # (Auto) 0.3 K/uL (0.0-0.8) 10/04/17 07:15 Eos # (Auto) 0.2 K/uL (0.0-0.7) 10/04/17 07:15 Baso # (Auto) 0.1 K/uL (0.0-0.2) 10/04/17 07:15 PT 11.5 SECONDS (9.7-12.2) 10/03/17 10:30 INR 1.1 10/03/17 10:30 APTT 26 SECONDS (21-34) 10/03/17 10:30 Sodium 138 mmol/L (132-148) 10/04/17 07:15 Potassium 4.0 mmol/L (3.6-5.2) 10/04/17 07:15 Chloride 101 mmol/L (98-107) 10/04/17 07:15 Carbon Dioxide 27 mmol/L (22-30) 10/04/17 07:15 Anion Gap 14 (10-20) 10/04/17 07:15 BUN 13 mg/dL (7-17) 10/04/17 07:15 Creatinine 0.7 mg/dL (0.7-1.2) 10/04/17 07:15 Est GFR ( Amer) > 60 10/04/17 07:15 Est GFR (Non-Af Amer) > 60 10/04/17 07:15 POC Glucose (mg/dL) 278 mg/dL (65-110) H 10/04/17 11:35 Random Glucose 171 mg/dL (65-105) H 10/04/17 07:15 Calcium 9.0 mg/dl (8.6-10.4) 10/04/17 07:15 Total Bilirubin 0.4 mg/dL (0.2-1.3) 10/03/17 10:30 AST 28 U/L (14-36) 10/03/17 10:30 ALT 23 U/L (9-52) 10/03/17 10:30 Alkaline Phosphatase 70 U/L (38-126) 10/03/17 10:30 Ammonia 11 umol/L (9-33) D 10/03/17 10:30 Total Creatine Kinase 136 U/L (30-135) H 10/03/17 10:30 Troponin I < 0.0120 ng/mL (0.00-0.120) 10/03/17 10:30 Total Protein 6.4 g/dL (6.3-8.3) 10/03/17 10:30 Albumin 3.5 g/dL (3.5-5.0) 10/03/17 10:30 Globulin 2.8 gm/dL (2.2-3.9) 10/03/17 10:30 Albumin/Globulin Ratio 1.3 (1.0-2.1) 10/03/17 10:30 Urine Color Yellow (YELLOW) 10/03/17 15:57 Urine Clarity Clear (Clear) 10/03/17 15:57 Urine pH 5.0 (5.0-8.0) 10/03/17 15:57 Ur Specific [place] 1.021 (1.003-1.030) 10/03/17 15:57 Urine Protein Negative mg/dL (NEGATIVE) 10/03/17 15:57 Urine Glucose (UA) 3+ mg/dL (Normal) H 10/03/17 15:57 Urine Ketones Negative mg/dL (NEGATIVE) 10/03/17 15:57 Urine Blood Negative (NEGATIVE) 10/03/17 15:57 Urine Nitrate Negative (NEGATIVE) 10/03/17 15:57 Urine Bilirubin Negative (NEGATIVE) 10/03/17 15:57 Urine Urobilinogen Normal mg/dL (0.2-1.0) 10/03/17 15:57 Ur Leukocyte Esterase Neg Alonso/uL (Negative) 10/03/17 15:57 Urine WBC (Auto) < 1 /hpf (0-5) 10/03/17 15:57 Ur Squamous Epith Cells < 1 /hpf (0-5) 10/03/17 15:57 Urine Bacteria Rare (<OCC) 10/03/17 15:57 - Hospital Course Hospital Course: HPI: 66 year old female with a past medical history of hydrocephalus w/NET FRONT END DEVELOPER shunt , brought to ER by ambulance for evaluation of confusion. Per the son the patient was found on the floor after falling. The patient does not remember the fall. As per son, patient was confused and has not been at her baseline mental status for about 3 weeks but worse in the last day. She was last seen by neurosurgery last to adjust the shunt and previously was there 2 weeks ago as well. He states she has been "off" since the previous shunt adjustment. Son states that the patient has experienced these symptoms in the past and it was related to her NET FRONT END DEVELOPER Shunt which she was admitted and had it revised in February 2017. Patient denies having any complaints at this time. Patient is more alert and oriented to person and place but not to time. Patient has no complaints of pain, chest pain, shortness of breath. Per the family the patient is eating well and having normal bowel movements. She has unsteady gait and can be incontinent of urine at time. Head CT and shuntogram performed today in the ED were normal and showed the shunt is intact, Although the ventricles have increased in size since the last admission in February 2017. Of note the patient does not follow up with a neurologist. Hospital Course: Patient seen and examined throughout her course here. Patient to follow up with the neurosurgeon as outpatient 10/04/17. Patient continued on home medications. Patient's urine cultures and blood cultures negative preliminary thusfar. will contact primary care doctor patient, and patient's family as necessary. above is a brief summary of patient's stay. Patient is currently being discharged to follow up with Dr. Hancock outpatient. - Date & Time of H&P Date of H&P: 10/04/17 Time of H&P: 14:14 Discharge Exam - Head Exam Head Exam: ATRAUMATIC, NORMAL INSPECTION, NORMOCEPHALIC Discharge Plan - Discharge Medications Prescriptions: Furosemide [Lasix] 20 mg PO BID #14 tablet - Follow Up Plan Condition: GOOD Disposition: HOME/ ROUTINE Instructions: Altered Mental Status (DC) Additional Instructions: follow up with Dr. Hancock tomorrow 10/05 for adjustment of shunt follow up with primary care doctor for further management Home with physical therapy with [facility] Referrals: Fer Hancock MD [Staff Provider] - <David Beaulieu H - Last Filed: 10/04/17 15:02> Provider - Provider Date of Admission: 10/03/17 12:11 Attending physician: David Beaulieu DO Hospital Course - Lab Results Lab Results: Micro Results 10/03/17 10:17 Blood Blood Culture - Preliminary NO GROWTH AFTER 24 HOURS 10/03/17 10:17 Blood Blood Culture - Preliminary NO GROWTH AFTER 24 HOURS 10/03/17 15:57 Urine Urine Culture - Final No Growth (<1,000 CFU/ML) Most Recent Lab Values WBC 5.9 K/uL (4.8-10.8) 10/04/17 07:15 RBC 4.35 Mil/uL (3.80-5.20) 10/04/17 07:15 Hgb 13.0 g/dL (11.0-16.0) 10/04/17 07:15 Hct 36.9 % (34.0-47.0) 10/04/17 07:15 MCV 84.8 fL (81.0-99.0) 10/04/17 07:15 MCH 30.0 pg (27.0-31.0) 10/04/17 07:15 MCHC 35.4 g/dL (33.0-37.0) 10/04/17 07:15 RDW 14.7 % (11.5-14.5) H 10/04/17 07:15 Plt Count 206 K/uL (130-400) 10/04/17 07:15 MPV 8.6 fL (7.2-11.7) 10/04/17 07:15 Neut % (Auto) 59.2 % (50.0-75.0) 10/04/17 07:15 Lymph % (Auto) 30.1 % (20.0-40.0) 10/04/17 07:15 Ogle % (Auto) 5.9 % (0.0-10.0) 10/04/17 07:15 Eos % (Auto) 3.9 % (0.0-4.0) 10/04/17 07:15 Baso % (Auto) 0.9 % (0.0-2.0) 10/04/17 07:15 Neut # (Auto) 3.5 K/uL (1.8-7.0) 10/04/17 07:15 Lymph # (Auto) 1.8 K/uL (1.0-4.3) 10/04/17 07:15 Ogle # (Auto) 0.3 K/uL (0.0-0.8) 10/04/17 07:15 Eos # (Auto) 0.2 K/uL (0.0-0.7) 10/04/17 07:15 Baso # (Auto) 0.1 K/uL (0.0-0.2) 10/04/17 07:15 PT 11.5 SECONDS (9.7-12.2) 10/03/17 10:30 INR 1.1 10/03/17 10:30 APTT 26 SECONDS (21-34) 10/03/17 10:30 Sodium 138 mmol/L (132-148) 10/04/17 07:15 Potassium 4.0 mmol/L (3.6-5.2) 10/04/17 07:15 Chloride 101 mmol/L (98-107) 10/04/17 07:15 Carbon Dioxide 27 mmol/L (22-30) 10/04/17 07:15 Anion Gap 14 (10-20) 10/04/17 07:15 BUN 13 mg/dL (7-17) 10/04/17 07:15 Creatinine 0.7 mg/dL (0.7-1.2) 10/04/17 07:15 Est GFR ( Amer) > 60 10/04/17 07:15 Est GFR (Non-Af Amer) > 60 10/04/17 07:15 POC Glucose (mg/dL) 278 mg/dL (65-110) H 10/04/17 11:35 Random Glucose 171 mg/dL (65-105) H 10/04/17 07:15 Calcium 9.0 mg/dl (8.6-10.4) 10/04/17 07:15 Total Bilirubin 0.4 mg/dL (0.2-1.3) 10/03/17 10:30 AST 28 U/L (14-36) 10/03/17 10:30 ALT 23 U/L (9-52) 10/03/17 10:30 Alkaline Phosphatase 70 U/L (38-126) 10/03/17 10:30 Ammonia 11 umol/L (9-33) D 10/03/17 10:30 Total Creatine Kinase 136 U/L (30-135) H 10/03/17 10:30 Troponin I < 0.0120 ng/mL (0.00-0.120) 10/03/17 10:30 Total Protein 6.4 g/dL (6.3-8.3) 10/03/17 10:30 Albumin 3.5 g/dL (3.5-5.0) 10/03/17 10:30 Globulin 2.8 gm/dL (2.2-3.9) 10/03/17 10:30 Albumin/Globulin Ratio 1.3 (1.0-2.1) 10/03/17 10:30 Urine Color Yellow (YELLOW) 10/03/17 15:57 Urine Clarity Clear (Clear) 10/03/17 15:57 Urine pH 5.0 (5.0-8.0) 10/03/17 15:57 Ur Specific [place] 1.021 (1.003-1.030) 10/03/17 15:57 Urine Protein Negative mg/dL (NEGATIVE) 10/03/17 15:57 Urine Glucose (UA) 3+ mg/dL (Normal) H 10/03/17 15:57 Urine Ketones Negative mg/dL (NEGATIVE) 10/03/17 15:57 Urine Blood Negative (NEGATIVE) 10/03/17 15:57 Urine Nitrate Negative (NEGATIVE) 10/03/17 15:57 Urine Bilirubin Negative (NEGATIVE) 10/03/17 15:57 Urine Urobilinogen Normal mg/dL (0.2-1.0) 10/03/17 15:57 Ur Leukocyte Esterase Neg Alonso/uL (Negative) 10/03/17 15:57 Urine WBC (Auto) < 1 /hpf (0-5) 10/03/17 15:57 Ur Squamous Epith Cells < 1 /hpf (0-5) 10/03/17 15:57 Urine Bacteria Rare (<OCC) 10/03/17 15:57 Attending/Attestation - Attestation I have personally seen and examined this patient.: Yes I have fully participated in the care of the patient.: Yes I have reviewed all pertinent clinical information, including history, physical exam and plan: Yes Notes (Text): 10/04/17 15:02 Medical attending: Patient was seen and examined by me. Agree with the above note by the resident The patient was not in any acute distress. The patient was able to follow all commands and was able to move all four extremities on command. The patient's sister was present at bedside. We did not meet her yesterday. Explained to sister that the patient needs to follow up with neurosurgery tommorow at Dr Hanocck office for adjustment of the shunt David Beaulieu
[2017-10-04] MEDS: Latanoprost 2.5 ml Opht Soln OU SCH (21:25)
--- NOTE | 2017-10-05 07:59 | CP.PCM.PN ---
<Jose ManuelJaleesa - Last Filed: 10/05/17 11:21> Subjective - Date & Time of Evaluation Date of Evaluation: 10/05/17 Time of Evaluation: 07:57 - Subjective Subjective: Progress Note Patient seen and examined at bedside. No acute events overnight. Patient was awake at night and sleeping during the morning. Patient would move arms and legs on command. Patient would not open eyes to command. Patient seen again with attending, patient is able to state that she's at [facility]. Patient states the year is 2000. Patient is able to move arms and legs to command. Patient currently eating with RN at bedside. Objective - Vital Signs/Intake and Output Vital Signs (last 24 hours): Temp Pulse Resp BP Pulse Ox 97.5 F L 87 20 119/79 97 10/05/17 07:15 10/05/17 07:15 10/05/17 07:15 10/05/17 07:15 10/05/17 07:15 Intake and Output: 10/05/17 10/05/17 06:59 18:59 Output Total 0 Balance 0 - Medications Medications: Current Medications Albuterol/Ipratropium (Duoneb 3 Mg/0.5 Mg (3 Ml) Ud) 3 ml INH RQ6 PRN PRN Reason: Shortness of Breath Amlodipine Besylate (Norvasc) 5 mg PO DAILY [facility] Last Admin: 10/04/17 09:48 Dose: 5 mg Bupropion HCl (Wellbutrin Xl) 150 mg PO DAILY [facility] Last Admin: 10/04/17 09:49 Dose: 150 mg Dextrose (Dextrose 50% Inj) 0 ml IV STAT PRN; Protocol PRN Reason: Hypoglycemia Protocol Dextrose (Glutose 15) 0 gm PO ONCE PRN; Protocol PRN Reason: Hypoglycemia Protocol Docusate Sodium (Colace) 100 mg PO DAILY [facility] Last Admin: 10/04/17 09:49 Dose: 100 mg Furosemide (Lasix) 20 mg IVP DAILY [facility] Gabapentin (Neurontin) 100 mg PO TID [facility] Last Admin: 10/04/17 18:18 Dose: 100 mg Glucagon (Glucagen Diagnostic Kit) 0 mg IM STAT PRN; Protocol PRN Reason: Hypoglycemia Protocol Heparin Sodium (Porcine) (Heparin) 5,000 units SC Q12 [facility] Last Admin: 10/04/17 21:25 Dose: 5,000 units Home Med (Patient's Own Medication) 1 tab PO BID [facility] Last Admin: 10/04/17 18:20 Dose: 1 tab Hydrochlorothiazide (Microzide) 12.5 mg PO DAILY [facility] Last Admin: 10/04/17 09:49 Dose: 12.5 mg Dextrose (Dextrose 5% In Water 1000 Ml) 1,000 mls @ 0 mls/hr IV .Q0M PRN; Protocol; Per Protocol PRN Reason: Hypoglycemia Protocol Insulin Human Regular (Novolin R) 0 unit SC ACHS [facility] PRN Reason: Protocol Last Admin: 10/04/17 21:29 Dose: 2 unit Latanoprost (Xalatan Opht) 0 ml OU HS [facility] Last Admin: 10/04/17 21:25 Dose: 2.5 ml Losartan Potassium (Cozaar) 100 mg PO DAILY [facility] Last Admin: 10/04/17 09:49 Dose: 100 mg Pantoprazole Sodium (Protonix Ec Tab) 40 mg PO DAILY [facility] Last Admin: 10/04/17 09:50 Dose: 40 mg Rosuvastatin Calcium (Crestor) 20 mg PO HS [facility] Last Admin: 10/04/17 21:26 Dose: 20 mg - Labs Labs: 10/04/17 07:15 10/04/17 07:15 PT 11.5 SECONDS (9.7-12.2) 10/03/17 10:30 INR 1.1 10/03/17 10:30 APTT 26 SECONDS (21-34) 10/03/17 10:30 - Additional Findings Additional findings: - Constitutional Appears: Non-toxic, No Acute Distress - Head Exam Head Exam: ATRAUMATIC, NORMAL INSPECTION, NORMOCEPHALIC - Eye Exam Eye Exam: EOMI, Normal appearance - ENT Exam ENT Exam: Mucous Membranes Moist, Normal Exam - Neck Exam Neck Exam: Full ROM, Normal Inspection - Respiratory Exam Respiratory Exam: Clear to Ausculation Bilateral, NORMAL BREATHING PATTERN - Cardiovascular Exam Cardiovascular Exam: REGULAR RHYTHM, +S1, +S2. absent: Bradycardia, Tachycardia - GI/Abdominal Exam GI & Abdominal Exam: Soft, Normal Bowel Sounds. absent: Tenderness - Extremities Exam Extremities Exam: Full ROM. absent: Pedal Edema - Back Exam Back Exam: Full ROM, NORMAL INSPECTION. absent: CVA tenderness (L), CVA tenderness (R), paraspinal tenderness - Neurological Exam Neurological Exam: Alert, Awake, CN II-XII Intact - Psychiatric Exam Psychiatric exam: Normal Affect, Normal Mood - Skin Skin Exam: Dry, Intact, Normal Color Assessment and Plan - Assessment and Plan (Free Text) Assessment: Hydrocephalus ONCOLOGY COORDINATOR Shunt repair 02/26/17, was placed in 2014 Neurosurgery: Dr Hancock/Ella on board * Management per neurosurgery: Patient's family is to call the office 10/04 and patient is to be seen on 10/05 for outpatient shunt adjustment. Nothing to do at this time inpatient. 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 Continue home medications. discussed with Dr. Beaulieu Assessment and Plan (1) Hydrocephalus Status: Acute (2) ONCOLOGY COORDINATOR (ventriculoperitoneal) shunt status Status: Acute <David Beaulieu - Last Filed: 10/05/17 17:55> Objective - Vital Signs/Intake and Output Vital Signs (last 24 hours): Temp Pulse Resp BP Pulse Ox 98.3 F 89 20 145/84 93 L 10/05/17 15:10 10/05/17 15:10 10/05/17 15:10 10/05/17 15:10 10/05/17 15:10 Intake and Output: 10/05/17 10/05/17 06:59 18:59 Output Total 0 Balance 0 - Medications Medications: Current Medications Albuterol/Ipratropium (Duoneb 3 Mg/0.5 Mg (3 Ml) Ud) 3 ml INH RQ6 PRN PRN Reason: Shortness of Breath Amlodipine Besylate (Norvasc) 5 mg PO DAILY [facility] Last Admin: 10/05/17 10:24 Dose: 5 mg Bupropion HCl (Wellbutrin Xl) 150 mg PO DAILY [facility] Last Admin: 10/05/17 10:23 Dose: 150 mg Dextrose (Dextrose 50% Inj) 0 ml IV STAT PRN; Protocol PRN Reason: Hypoglycemia Protocol Dextrose (Glutose 15) 0 gm PO ONCE PRN; Protocol PRN Reason: Hypoglycemia Protocol Docusate Sodium (Colace) 100 mg PO DAILY [facility] Last Admin: 10/05/17 10:23 Dose: 100 mg Furosemide (Lasix) 20 mg IVP DAILY [facility] Last Admin: 10/05/17 10:23 Dose: 20 mg Gabapentin (Neurontin) 100 mg PO TID [facility] Last Admin: 10/05/17 17:21 Dose: 100 mg Glucagon (Glucagen Diagnostic Kit) 0 mg IM STAT PRN; Protocol PRN Reason: Hypoglycemia Protocol Heparin Sodium (Porcine) (Heparin) 5,000 units SC Q12 [facility] Last Admin: 10/05/17 10:22 Dose: 5,000 units Home Med (Patient's Own Medication) 1 tab PO BID [facility] Last Admin: 10/05/17 17:23 Dose: 1 tab Hydrochlorothiazide (Microzide) 12.5 mg PO DAILY [facility] Last Admin: 10/05/17 10:23 Dose: 12.5 mg Dextrose (Dextrose 5% In Water 1000 Ml) 1,000 mls @ 0 mls/hr IV .Q0M PRN; Protocol; Per Protocol PRN Reason: Hypoglycemia Protocol Insulin Human Regular (Novolin R) 0 unit SC ACHS [facility] PRN Reason: Protocol Last Admin: 10/05/17 17:21 Dose: 6 unit Latanoprost (Xalatan Opht) 0 ml OU HS [facility] Last Admin: 10/04/17 21:25 Dose: 2.5 ml Losartan Potassium (Cozaar) 100 mg PO DAILY [facility] Last Admin: 10/05/17 10:24 Dose: 100 mg Pantoprazole Sodium (Protonix Ec Tab) 40 mg PO DAILY [facility] Last Admin: 10/05/17 10:23 Dose: 40 mg Rosuvastatin Calcium (Crestor) 20 mg PO HS [facility] Last Admin: 10/04/17 21:26 Dose: 20 mg - Labs Labs: 10/04/17 07:15 10/04/17 07:15 PT 11.5 SECONDS (9.7-12.2) 05/29/18 10:30 INR 1.1 10/03/17 10:30 APTT 26 SECONDS (21-34) 10/03/17 10:30 Attending/Attestation - Attestation I have personally seen and examined this patient.: Yes I have fully participated in the care of the patient.: Yes I have reviewed all pertinent clinical information, including history, physical exam and plan: Yes Notes (Text): Medical attending: Patient was seen and examined by me. Patient was seen and examined by me. Agree with the above note by the resident The patient was not in any acute distress. However her affect was very slow. She followed commands and was able to move all four extremities. Neurosurgery adjusted the ONCOLOGY COORDINATOR shunt yesterday afternoon. Per diagnostic medical sonographer the patient appeared to be more awake when we rounded then in the casting machine service operator. We will continue to see how she does. If more awake and alert tommorow then maybe will discharge - however we will have to see Otherwise the blood cultures and urine cultures are negative so far. Lab work stable as well. No fever David Beaulieu
--- NOTE | 2017-10-05 08:38 | CON ---
DATE: 10/04/2017 HISTORY OF PRESENT ILLNESS: This is a 66-year-old lady well known to me. 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 Then several months ago, she developed a slit ventricle system which I saw her in my office for. I raised her settings through the second highest where when she still had headache and ventricle syndrome. Approximately 5 days ago in the office I took her up to the highest level, and apparently over the past day or so, she had worsening of her mental status with being quite disoriented and confused. CT of the brain documented now ventriculomegaly. On interviewing her today, she can tell me her name, not entirely clear where she is. She does follow most commands. She is talking, and she is moving all extremities. The rest of her situation reviewed in the EMR. CT does show marked enlargement of ventricle compared to last scan that I viewed as an outpatient done approximately two weeks ago. IMPRESSION: This is an extremely odd situation where going from the second highest setting from a slit ventricle syndrome to the highest setting with ventriculomegaly. However, the timing obviously cannot be ignored and overwhelmingly likely is at this setting, she is not draining enough fluid. More remote possibility is that she just coincidently has a malfunctioning shunt. PLAN: Using the [employer] reprogramming system, I confirmed that she was at the highest setting of 2.5. I her down to setting of 2. I explained to her family that this will take likely several days to itself clinically, and we will follow her over that time period. Fer Hancock MD
[2017-10-05] MEDS: (Novolin R) Insulin Human Regular 100 units/ml vial SC SCH ×4 (08:41→21:58)
--- NOTE | 2017-10-05 09:37 | CP.PCM.PN ---
Subjective - Date & Time of Evaluation Date of Evaluation: 10/05/17 Time of Evaluation: 09:34 - Subjective Subjective: feels "much better today" o to name,hosp Pres,my name following all commands well leo good strength I : seems to have responded well to lowering shunt valve pressure setting hopefully will cont to improve Objective - Vital Signs/Intake and Output Vital Signs (last 24 hours): Temp Pulse Resp BP Pulse Ox 97.5 F L 87 20 119/79 97 10/05/17 07:15 10/05/17 07:15 10/05/17 07:15 10/05/17 07:15 10/05/17 07:15 Intake and Output: 10/05/17 10/05/17 06:59 18:59 Output Total 0 Balance 0 - Medications Medications: Current Medications Albuterol/Ipratropium (Duoneb 3 Mg/0.5 Mg (3 Ml) Ud) 3 ml INH RQ6 PRN PRN Reason: Shortness of Breath Amlodipine Besylate (Norvasc) 5 mg PO DAILY [facility] Last Admin: 10/04/17 09:48 Dose: 5 mg Bupropion HCl (Wellbutrin Xl) 150 mg PO DAILY [facility] Last Admin: 10/04/17 09:49 Dose: 150 mg Dextrose (Dextrose 50% Inj) 0 ml IV STAT PRN; Protocol PRN Reason: Hypoglycemia Protocol Dextrose (Glutose 15) 0 gm PO ONCE PRN; Protocol PRN Reason: Hypoglycemia Protocol Docusate Sodium (Colace) 100 mg PO DAILY [facility] Last Admin: 10/04/17 09:49 Dose: 100 mg Furosemide (Lasix) 20 mg IVP DAILY [facility] Gabapentin (Neurontin) 100 mg PO TID [facility] Last Admin: 10/04/17 18:18 Dose: 100 mg Glucagon (Glucagen Diagnostic Kit) 0 mg IM STAT PRN; Protocol PRN Reason: Hypoglycemia Protocol Heparin Sodium (Porcine) (Heparin) 5,000 units SC Q12 [facility] Last Admin: 10/04/17 21:25 Dose: 5,000 units Home Med (Patient's Own Medication) 1 tab PO BID [facility] Last Admin: 10/04/17 18:20 Dose: 1 tab Hydrochlorothiazide (Microzide) 12.5 mg PO DAILY [facility] Last Admin: 10/04/17 09:49 Dose: 12.5 mg Dextrose (Dextrose 5% In Water 1000 Ml) 1,000 mls @ 0 mls/hr IV .Q0M PRN; Protocol; Per Protocol PRN Reason: Hypoglycemia Protocol Insulin Human Regular (Novolin R) 0 unit SC ACHS [facility] PRN Reason: Protocol Last Admin: 10/04/17 21:29 Dose: 2 unit Latanoprost (Xalatan Opht) 0 ml OU HS [facility] Last Admin: 10/04/17 21:25 Dose: 2.5 ml Losartan Potassium (Cozaar) 100 mg PO DAILY [facility] Last Admin: 10/04/17 09:49 Dose: 100 mg Pantoprazole Sodium (Protonix Ec Tab) 40 mg PO DAILY [facility] Last Admin: 10/04/17 09:50 Dose: 40 mg Rosuvastatin Calcium (Crestor) 20 mg PO HS [facility] Last Admin: 10/04/17 21:26 Dose: 20 mg - Labs Labs: 10/04/17 07:15 10/04/17 07:15 PT 11.5 SECONDS (9.7-12.2) 10/03/17 10:30 INR 1.1 10/03/17 10:30 APTT 26 SECONDS (21-34) 10/03/17 10:30
[2017-10-05] MEDS: buPROPion 150 mg/24 Hours XL Tab PO SCH (10:23)
[2017-10-05] MEDS: Pantoprazole 40 mg EC Tab PO SCH (10:23)
[2017-10-05] MEDS: VASCEPA 1GM PO SCH ×2 (10:24→17:23)
[2017-10-05] MEDS: Latanoprost 2.5 ml Opht Soln OU SCH (21:58)
--- NOTE | 2017-10-06 05:56 | CARD ---
APPROVED REPORT EKG Measurement Heart [id number] <Conclusion> Normal sinus rhythm Normal ECG
[2017-10-06 08:04] LABS: BASO # 0.1 K/uL (0.0-0.2); EOS # 0.2 K/uL (0.0-0.7); EOS % 1.9 % (0.0-4.0); HEMOGLOBIN 14.6 g/dL (11.0-16.0); LYMPH # 1.9 K/uL (1.0-4.3); LYMPH % 22.4 % (20.0-40.0); MEAN CELL VOLUME 84.7 fL (81.0-99.0); MEAN CORPUSCULAR HEMOGLOBIN 29.7 pg (27.0-31.0); MEAN CORPUSCULAR HGB CONC 35.1 g/dL (33.0-37.0); MEAN PLATELET VOLUME 8.7 fL (7.2-11.7); MONO # 0.4 K/uL (0.0-0.8); MONO % 4.7 % (0.0-10.0); NEUT # 5.8 K/uL (1.8-7.0); NRBC % 0.1 % (0.0-2.0); RBC 4.91 Mil/uL (3.80-5.20); RED CELL DISTRIBUTION WIDTH 14.4 % (11.5-14.5); WHITE BLOOD COUNT 8.3 K/uL (4.8-10.8)
[2017-10-06 08:27] LABS: ALB/GLOB RATIO 1.3 (1.0-2.1); ALT/SGPT 24 U/L (9-52); AST/SGOT 24 U/L (14-36); BLOOD UREA NITROGEN 22 mg/dL (7-17); CALCIUM 8.9 mg/dl (8.6-10.4); GFR AFRICAN-AMERICAN > 60; GFR NON-AFRICAN AMERICAN 55
[2017-10-06] MEDS: (Novolin R) Insulin Human Regular 100 units/ml vial SC SCH ×4 (08:49→21:40)
--- NOTE | 2017-10-06 09:41 | CP.PCM.PN ---
<Jose ManuelJaleesa - Last Filed: 10/06/17 15:43> Subjective - Date & Time of Evaluation Date of Evaluation: 10/06/17 Time of Evaluation: 09:37 - Subjective Subjective: Progress Note Patient seen and examined at bedside. No acute events overnight. Patient is unable to answer questions this morning due to patient being asleep. Will revisit with attending when patient is more alert. Visiting with Dr. Beaulieu, patient still does not respond well and is asleep at bedside. Repeat CT head shows slight improvement of ventricles and DINKEY LOCOMOTIVE ENGINEER shunt malfunction. Dr. Rios said to monitor for 24-48 horus. Objective - Vital Signs/Intake and Output Vital Signs (last 24 hours): Temp Pulse Resp BP Pulse Ox 97.5 F L 77 20 103/70 95 10/06/17 08:00 10/06/17 08:00 10/06/17 08:00 10/06/17 08:00 10/06/17 08:00 Intake and Output: 10/06/17 10/06/17 06:59 18:59 Intake Total 480 Output Total 300 Balance 180 - Medications Medications: Current Medications Albuterol/Ipratropium (Duoneb 3 Mg/0.5 Mg (3 Ml) Ud) 3 ml INH RQ6 PRN PRN Reason: Shortness of Breath Amlodipine Besylate (Norvasc) 5 mg PO DAILY [facility] Last Admin: 10/05/17 10:24 Dose: 5 mg Bupropion HCl (Wellbutrin Xl) 150 mg PO DAILY [facility] Last Admin: 10/05/17 10:23 Dose: 150 mg Dextrose (Dextrose 50% Inj) 0 ml IV STAT PRN; Protocol PRN Reason: Hypoglycemia Protocol Dextrose (Glutose 15) 0 gm PO ONCE PRN; Protocol PRN Reason: Hypoglycemia Protocol Docusate Sodium (Colace) 100 mg PO DAILY [facility] Last Admin: 10/05/17 10:23 Dose: 100 mg Furosemide (Lasix) 20 mg IVP DAILY [facility] Last Admin: 10/05/17 10:23 Dose: 20 mg Gabapentin (Neurontin) 100 mg PO TID [facility] Last Admin: 10/05/17 17:21 Dose: 100 mg Glucagon (Glucagen Diagnostic Kit) 0 mg IM STAT PRN; Protocol PRN Reason: Hypoglycemia Protocol Heparin Sodium (Porcine) (Heparin) 5,000 units SC Q12 [facility] Last Admin: 10/05/17 21:59 Dose: 5,000 units Home Med (Patient's Own Medication) 1 tab PO BID [facility] Last Admin: 10/05/17 17:23 Dose: 1 tab Hydrochlorothiazide (Microzide) 12.5 mg PO DAILY [facility] Last Admin: 10/05/17 10:23 Dose: 12.5 mg Dextrose (Dextrose 5% In Water 1000 Ml) 1,000 mls @ 0 mls/hr IV .Q0M PRN; Protocol; Per Protocol PRN Reason: Hypoglycemia Protocol Insulin Human Regular (Novolin R) 0 unit SC ACHS [facility] PRN Reason: Protocol Last Admin: 10/06/17 08:49 Dose: 6 unit Latanoprost (Xalatan Opht) 0 ml OU HS [facility] Last Admin: 10/05/17 21:58 Dose: 2.5 ml Losartan Potassium (Cozaar) 100 mg PO DAILY [facility] Last Admin: 10/05/17 10:24 Dose: 100 mg Pantoprazole Sodium (Protonix Ec Tab) 40 mg PO DAILY [facility] Last Admin: 10/05/17 10:23 Dose: 40 mg Rosuvastatin Calcium (Crestor) 20 mg PO HS [facility] Last Admin: 10/05/17 21:58 Dose: 20 mg - Labs Labs: 10/06/17 07:38 10/06/17 07:38 PT 11.5 SECONDS (9.7-12.2) 10/03/17 10:30 INR 1.1 10/03/17 10:30 APTT 26 SECONDS (21-34) 10/03/17 10:30 - Skin Additional comments: - Constitutional Appears: Non-toxic, No Acute Distress - Head Exam Head Exam: ATRAUMATIC, NORMAL INSPECTION, NORMOCEPHALIC - Eye Exam Eye Exam: EOMI, Normal appearance - ENT Exam ENT Exam: Mucous Membranes Moist, Normal Exam - Neck Exam Neck Exam: Full ROM, Normal Inspection - Respiratory Exam Respiratory Exam: Clear to Ausculation Bilateral, NORMAL BREATHING PATTERN - Cardiovascular Exam Cardiovascular Exam: REGULAR RHYTHM, +S1, +S2. absent: Bradycardia, Tachycardia - GI/Abdominal Exam GI & Abdominal Exam: Soft, Normal Bowel Sounds. absent: Tenderness - Extremities Exam Extremities Exam: Full ROM. absent: Pedal Edema - Back Exam Back Exam: Full ROM, NORMAL INSPECTION. absent: CVA tenderness (L), CVA tenderness (R), paraspinal tenderness - Neurological Exam Neurological Exam: Alert, Awake, CN II-XII Intact - Psychiatric Exam Psychiatric exam: Normal Affect, Normal Mood - Skin Skin Exam: Dry, Intact, Normal Color Assessment and Plan (1) Hydrocephalus Status: Acute (2) DINKEY LOCOMOTIVE ENGINEER (ventriculoperitoneal) shunt status Status: Acute - Assessment and Plan (Free Text) Assessment: Hydrocephalus DINKEY LOCOMOTIVE ENGINEER Shunt repair 02/26/17, was placed in 2014 Neurosurgery: Dr Hancock/Ella on board * Management per neurosurgery: Patient's family is to call the office 10/04 and patient is to be seen on 10/05 for outpatient shunt adjustment. Nothing to do at this time inpatient. (family was informed of these instructions) CT Head (10/03): shunt in place ventricles has enlarged compared to prior study, chronic microvascular changes, old lacunar infarcts, Shuntogram (10/03): ventricular catheter entering from a right sided approach, visualized extracranial tubing intact CT head (10/06): shows slight improvement of ventricles and DINKEY LOCOMOTIVE ENGINEER shunt malfunction. Visiting with Dr. Beaulieu, patient still does not respond well and is asleep at bedside. Repeat CT head shows slight improvement of ventricles and DINKEY LOCOMOTIVE ENGINEER shunt malfunction. Dr. Rios said to monitor for 24-48 horus. 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 Continue home medications. discussed with Dr. Brittnee Richard, PGY1 <David Beaulieu - Last Filed: 10/06/17 17:00> Objective - Vital Signs/Intake and Output Vital Signs (last 24 hours): Temp Pulse Resp BP Pulse Ox 98.5 F 85 20 110/73 96 10/06/17 15:35 10/06/17 15:35 10/06/17 15:35 10/06/17 15:35 10/06/17 15:35 Intake and Output: 10/06/17 10/06/17 06:59 18:59 Intake Total 480 Output Total 300 Balance 180 - Medications Medications: Current Medications Albuterol/Ipratropium (Duoneb 3 Mg/0.5 Mg (3 Ml) Ud) 3 ml INH RQ6 PRN PRN Reason: Shortness of Breath Amlodipine Besylate (Norvasc) 5 mg PO DAILY [facility] Last Admin: 10/06/17 11:46 Dose: 5 mg Bupropion HCl (Wellbutrin Xl) 150 mg PO DAILY [facility] Last Admin: 10/06/17 11:39 Dose: 150 mg Dextrose (Dextrose 50% Inj) 0 ml IV STAT PRN; Protocol PRN Reason: Hypoglycemia Protocol Dextrose (Glutose 15) 0 gm PO ONCE PRN; Protocol PRN Reason: Hypoglycemia Protocol Docusate Sodium (Colace) 100 mg PO DAILY [facility] Last Admin: 10/06/17 11:40 Dose: 100 mg Gabapentin (Neurontin) 100 mg PO TID [facility] Last Admin: 10/06/17 14:24 Dose: 100 mg Glucagon (Glucagen Diagnostic Kit) 0 mg IM STAT PRN; Protocol PRN Reason: Hypoglycemia Protocol Heparin Sodium (Porcine) (Heparin) 5,000 units SC Q12 [facility] Last Admin: 10/06/17 11:41 Dose: 5,000 units Home Med (Patient's Own Medication) 1 tab PO BID [facility] Last Admin: 10/06/17 11:39 Dose: 1 tab Hydrochlorothiazide (Microzide) 12.5 mg PO DAILY [facility] Last Admin: 10/06/17 11:46 Dose: 12.5 mg Insulin Detemir (Levemir) 10 unit SC Q12 [facility] Insulin Human Regular (Novolin R) 0 unit SC ACHS [facility] PRN Reason: Protocol Last Admin: 10/06/17 13:51 Dose: 10 unit Latanoprost (Xalatan Opht) 0 ml OU HS [facility] Last Admin: 10/05/17 21:58 Dose: 2.5 ml Losartan Potassium (Cozaar) 100 mg PO DAILY [facility] Last Admin: 10/06/17 11:46 Dose: 100 mg Pantoprazole Sodium (Protonix Ec Tab) 40 mg PO DAILY [facility] Last Admin: 10/06/17 11:40 Dose: 40 mg Rosuvastatin Calcium (Crestor) 20 mg PO HS [facility] Last Admin: 10/05/17 21:58 Dose: 20 mg - Labs Labs: 10/06/17 07:38 10/06/17 07:38 PT 11.5 SECONDS (9.7-12.2) 10/03/17 10:30 INR 1.1 10/03/17 10:30 APTT 26 SECONDS (21-34) 10/03/17 10:30 Attending/Attestation - Attestation I have personally seen and examined this patient.: Yes I have fully participated in the care of the patient.: Yes I have reviewed all pertinent clinical information, including history, physical exam and plan: Yes Notes (Text): 10/06/17 16:54 Medical attending: Patient was seen and examined by me. Agree with the above note by the resident Patient could open eyes today - however was nonverbal when I came and saw her We re-ordered CT of the head and it suggest that the ventricles are smaller than on 10/03 however still larger than previous CTs done in 2017 The shunt was again adjusted today by neurology Neurosurgery has advised that we wait additional 48hrs. At this time the patient has had 48hrs of negative blood cultures and 48hr urine culture The CBC and CMP are stable David Beaulieu
[2017-10-06] MEDS: VASCEPA 1GM PO SCH ×2 (11:39→17:17)
[2017-10-06] MEDS: buPROPion 150 mg/24 Hours XL Tab PO SCH (11:39)
[2017-10-06] MEDS: Pantoprazole 40 mg EC Tab PO SCH (11:40)
--- NOTE | 2017-10-06 11:43 | CP.PCM.PN ---
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 no verbal repeat CT shows no change in vents shunt pumps nicely dropped opening pressure to 1.5 will observe over next 24-48 hrs before doing anything else Objective - Vital Signs/Intake and Output Vital Signs (last 24 hours): Temp Pulse Resp BP Pulse Ox 97.5 F L 77 20 103/70 95 10/06/17 08:00 10/06/17 08:00 10/06/17 08:00 10/06/17 08:00 10/06/17 08:00 Intake and Output: 10/06/17 10/06/17 06:59 18:59 Intake Total 480 Output Total 300 Balance 180 - Medications Medications: Current Medications Albuterol/Ipratropium (Duoneb 3 Mg/0.5 Mg (3 Ml) Ud) 3 ml INH RQ6 PRN PRN Reason: Shortness of Breath Amlodipine Besylate (Norvasc) 5 mg PO DAILY [facility] Last Admin: 10/05/17 10:24 Dose: 5 mg Bupropion HCl (Wellbutrin Xl) 150 mg PO DAILY [facility] Last Admin: 10/05/17 10:23 Dose: 150 mg Dextrose (Dextrose 50% Inj) 0 ml IV STAT PRN; Protocol PRN Reason: Hypoglycemia Protocol Dextrose (Glutose 15) 0 gm PO ONCE PRN; Protocol PRN Reason: Hypoglycemia Protocol Docusate Sodium (Colace) 100 mg PO DAILY [facility] Last Admin: 10/05/17 10:23 Dose: 100 mg Gabapentin (Neurontin) 100 mg PO TID [facility] Last Admin: 10/05/17 17:21 Dose: 100 mg Glucagon (Glucagen Diagnostic Kit) 0 mg IM STAT PRN; Protocol PRN Reason: Hypoglycemia Protocol Heparin Sodium (Porcine) (Heparin) 5,000 units SC Q12 [facility] Last Admin: 10/05/17 21:59 Dose: 5,000 units Home Med (Patient's Own Medication) 1 tab PO BID [facility] Last Admin: 10/05/17 17:23 Dose: 1 tab Hydrochlorothiazide (Microzide) 12.5 mg PO DAILY [facility] Last Admin: 10/05/17 10:23 Dose: 12.5 mg Dextrose (Dextrose 5% In Water 1000 Ml) 1,000 mls @ 0 mls/hr IV .Q0M PRN; Protocol; Per Protocol PRN Reason: Hypoglycemia Protocol Insulin Human Regular (Novolin R) 0 unit SC ACHS [facility] PRN Reason: Protocol Last Admin: 10/06/17 08:49 Dose: 6 unit Latanoprost (Xalatan Opht) 0 ml OU HS [facility] Last Admin: 10/05/17 21:58 Dose: 2.5 ml Losartan Potassium (Cozaar) 100 mg PO DAILY [facility] Last Admin: 10/05/17 10:24 Dose: 100 mg Pantoprazole Sodium (Protonix Ec Tab) 40 mg PO DAILY [facility] Last Admin: 10/05/17 10:23 Dose: 40 mg Rosuvastatin Calcium (Crestor) 20 mg PO HS [facility] Last Admin: 10/05/17 21:58 Dose: 20 mg - Labs Labs: 10/06/17 07:38 10/06/17 07:38 PT 11.5 SECONDS (9.7-12.2) 10/03/17 10:30 INR 1.1 10/03/17 10:30 APTT 26 SECONDS (21-34) 10/03/17 10:30
--- NOTE | 2017-10-06 11:52 | CT ---
PROCEDURE: CT HEAD WITHOUT CONTRAST. HISTORY: AMS COMPARISON: Comparison made with prior CT scan brain 10/02/2014. . TECHNIQUE: Contiguous helical/ transaxial computed tomography images were obtained through the head/brain without intravenous contrast. Radiation dose: Total exam DLP = 2158.27 mGy-cm. This CT exam was performed using one or more of the following dose reduction techniques: Automated exposure control, adjustment of the mA and/or kV according to patient size, and/or use of iterative reconstruction technique. Note that the study is somewhat limited due to crossing streak and beam hardening artifact arising from left upper extremity which is located adjacent to the left frontotemporal region and further degraded by motion artifact on several images. FINDINGS: HEMORRHAGE: No parenchymal, subarachnoid or extra-axial hemorrhage. BRAIN: Re- demonstrated is in situ [employer] shunt to which enters a right frontal sarina hole, courses through the right frontal lobe and into the right superior frontal horn terminating near the right foramen of Monro. Ventricles have decreased in size since prior CT scan 10/03/2017 and markedly increased size since prior CT scans of 03/09/2017 CT scan of the brain dating back to 12/08/2015. Findings are consistent with shunt malfunction. There are confluent low-attenuation changes seen in the periventricular white matter most conspicuous in the periatrial/ very occipital horn regions. . Underlying chronic periventricular white matter ischemic changes may contribute. Clinical correlation recommended Mild vascular calcifications both carotid siphons VENTRICLES: Dilatation of the 3rd and lateral ventricles increased since prior study consistent with shunt malfunction. CALVARIUM: Calvarium otherwise intact not withstanding the previously mentioned right frontal sarina hole. PARANASAL SINUSES: Minimal polypoid like mucosal thickening right chamber sphenoid sinus MASTOID AIR CELLS: Unremarkable as visualized. No inflammatory changes. OTHER FINDINGS: Changes of bilateral cataract surgery again IMPRESSION: Limited study due to streak and beam hardening artifact as detailed above and further degraded by motion artifact on several images. . Increased ventricular size consistent with shunt malfunction as detailed above. Probable transependymal edema ; underlying chronic periventricular white matter ischemic changes may contribute. Clinical correlation recommended. Findings discussed with 5 T Nurse Mineses at approximately 11:45 a.m. with written down and read back verification.
[2017-10-06] MEDS ORDERED: Insulin Detemir 100 units/ml Vial (Levemir) SC SCH ×2 (13:45→22:00)
[2017-10-06] MEDS: Latanoprost 2.5 ml Opht Soln OU SCH (21:40)
[2017-10-07 06:54] LABS: BASO # 0.1 K/uL (0.0-0.2); BASO % 0.9 % (0.0-2.0); EOS # 0.2 K/uL (0.0-0.7); EOS % 2.8 % (0.0-4.0); HEMOGLOBIN 14.4 g/dL (11.0-16.0); LYMPH # 2.3 K/uL (1.0-4.3); LYMPH % 27.7 % (20.0-40.0); MEAN CORPUSCULAR HEMOGLOBIN 29.4 pg (27.0-31.0); MEAN PLATELET VOLUME 8.4 fL (7.2-11.7); MONO # 0.4 K/uL (0.0-0.8); MONO % 5.4 % (0.0-10.0); NEUT # 5.2 K/uL (1.8-7.0); NEUT % 63.2 % (50.0-75.0); RBC 4.89 Mil/uL (3.80-5.20); RED CELL DISTRIBUTION WIDTH 14.8 % (11.5-14.5); WHITE BLOOD COUNT 8.2 K/uL (4.8-10.8)
[2017-10-07 07:27] LABS: ALBUMIN 3.8 g/dL (3.5-5.0); CALCIUM 8.8 mg/dl (8.6-10.4)
[2017-10-07] MEDS ORDERED: Potassium Chloride 20 mEq ER Tab PO ONE ×2 (07:34→08:40)
[2017-10-07 07:38] LABS: ALB/GLOB RATIO 1.3 (1.0-2.1)
[2017-10-07] MEDS: (Novolin R) Insulin Human Regular 100 units/ml vial SC SCH ×4 (08:30→21:10)
--- NOTE | 2017-10-07 08:33 | CP.PCM.PN ---
<Luis Fernando Grewal - Last Filed: 10/07/17 10:59> Subjective - Date & Time of Evaluation Date of Evaluation: 10/07/17 Time of Evaluation: 08:32 - Subjective Subjective: PGY2 Note for Dr. Beaulieu patient seen and examined at bedside with family members present; daughter and son; state that she is not at baseline but is improving; able to open eyes, speak in both slovak and kyrgyz, and follow simple commands which she has not been able to do for the last few days. The patient denies any symptoms, but speech is slow and garbled albeit intelligible. Unable to walk. Objective - Vital Signs/Intake and Output Vital Signs (last 24 hours): Temp Pulse Resp BP Pulse Ox 97.5 F L 81 20 111/68 96 10/07/17 07:00 10/07/17 07:00 10/07/17 07:00 10/07/17 07:00 10/07/17 07:00 Intake and Output: 10/07/17 10/07/17 06:59 18:59 Output Total 750 Balance -750 - Medications Medications: Current Medications Albuterol/Ipratropium (Duoneb 3 Mg/0.5 Mg (3 Ml) Ud) 3 ml INH RQ6 PRN PRN Reason: Shortness of Breath Amlodipine Besylate (Norvasc) 5 mg PO DAILY [facility] Last Admin: 10/06/17 11:46 Dose: 5 mg Bupropion HCl (Wellbutrin Xl) 150 mg PO DAILY [facility] Last Admin: 10/06/17 11:39 Dose: 150 mg Dextrose (Dextrose 50% Inj) 0 ml IV STAT PRN; Protocol PRN Reason: Hypoglycemia Protocol Dextrose (Glutose 15) 0 gm PO ONCE PRN; Protocol PRN Reason: Hypoglycemia Protocol Docusate Sodium (Colace) 100 mg PO DAILY [facility] Last Admin: 10/06/17 11:40 Dose: 100 mg Gabapentin (Neurontin) 100 mg PO TID [facility] Last Admin: 10/06/17 17:17 Dose: 100 mg Glucagon (Glucagen Diagnostic Kit) 0 mg IM STAT PRN; Protocol PRN Reason: Hypoglycemia Protocol Heparin Sodium (Porcine) (Heparin) 5,000 units SC Q12 [facility] Last Admin: 10/06/17 21:40 Dose: 5,000 units Home Med (Patient's Own Medication) 1 tab PO BID [facility] Last Admin: 10/06/17 17:17 Dose: 1 tab Hydrochlorothiazide (Microzide) 12.5 mg PO DAILY [facility] Last Admin: 10/06/17 11:46 Dose: 12.5 mg Insulin Detemir (Levemir) 12 unit SC Q12 [facility] Insulin Human Regular (Novolin R) 0 unit SC ACHS [facility] PRN Reason: Protocol Last Admin: 10/06/17 21:40 Dose: 3 unit Latanoprost (Xalatan Opht) 0 ml OU HS [facility] Last Admin: 10/06/17 21:40 Dose: 2.5 ml Losartan Potassium (Cozaar) 100 mg PO DAILY [facility] Last Admin: 10/06/17 11:46 Dose: 100 mg Pantoprazole Sodium (Protonix Ec Tab) 40 mg PO DAILY [facility] Last Admin: 10/06/17 11:40 Dose: 40 mg Rosuvastatin Calcium (Crestor) 20 mg PO HS [facility] Last Admin: 10/06/17 21:41 Dose: 20 mg - Labs Labs: 10/07/17 06:48 10/07/17 06:48 PT 11.5 SECONDS (9.7-12.2) 10/03/17 10:30 INR 1.1 10/03/17 10:30 APTT 26 SECONDS (21-34) 10/03/17 10:30 - Constitutional Appears: Non-toxic - Head Exam Head Exam: ATRAUMATIC, NORMAL INSPECTION - Eye Exam Eye Exam: EOMI, PERRL - ENT Exam ENT Exam: Mucous Membranes Moist - Neck Exam Neck Exam: Full ROM - Respiratory Exam Respiratory Exam: Clear to Ausculation Bilateral, NORMAL BREATHING PATTERN. absent: Rales - Cardiovascular Exam Cardiovascular Exam: REGULAR RHYTHM, +S1, +S2 - GI/Abdominal Exam GI & Abdominal Exam: Soft, Normal Bowel Sounds. absent: Tenderness - Extremities Exam Extremities Exam: Full ROM. absent: Calf Tenderness - Back Exam Back Exam: NORMAL INSPECTION. absent: CVA tenderness (L), CVA tenderness (R) - Neurological Exam Neurological Exam: Awake, CN II-XII Intact (able to answer simple commands correctly, does not know date but knows she is in a hospital and her name/. Is more responsive as per family but still not at baseline. ). 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 Nothing to do at this time inpatient. (family was informed of these instructions) CT Head (10/03): shunt in place ventricles has enlarged compared to prior study, chronic microvascular changes, old lacunar infarcts, Shuntogram (10/03): ventricular catheter entering from a right sided approach, visualized extracranial tubing intact CT head (10/06): shows slight improvement of ventricles and [employer] shunt malfunction. Visiting with Dr. Beaulieu, patient still does not respond well and is asleep at bedside. Repeat CT head shows slight improvement of ventricles and [employer] shunt malfunction. Dr. Rios said to monitor for 24-48 hours Altered Mental Status; improving likely secondary to NPH F/u UA, blood cultures, urine culture Patient is afebrile, no white count Chest X ray - negative Troponin negative Ammonia 11 10/07:as per family; patient is ambulatory and speaks in full coherent sentences and ANOx3 at baseline; currently ANOx2; speaking more clearly, opening eyes. Improving but not at baseline DM 2 Uncontrolled diabetes Accuchecks QAC and HS Medium Dose insulin sliding scale Will hold home metformin while in the hospital Patient is unaware of insulin dosing, will need to follow up outpatient HLD Continue statin Asthma Duonebs prn Controlled Not wheezing Hypertension, controlled Norvasc 5mg PO daily Prophylactic measure Protonix 40mg PO daily [facility] Case discussed and seen with attending physician Luis Fernando Grewal PGY2 <David Beaulieu - Last Filed: 10/07/17 11:53> Objective - Vital Signs/Intake and Output Vital Signs (last 24 hours): Temp Pulse Resp BP Pulse Ox 97.5 F L 81 20 111/68 96 10/07/17 07:00 10/07/17 07:00 10/07/17 07:00 10/07/17 07:00 10/07/17 07:00 Intake and Output: 10/07/17 10/07/17 06:59 18:59 Output Total 750 Balance -750 - Medications Medications: Current Medications Albuterol/Ipratropium (Duoneb 3 Mg/0.5 Mg (3 Ml) Ud) 3 ml INH RQ6 PRN PRN Reason: Shortness of Breath Amlodipine Besylate (Norvasc) 5 mg PO DAILY [facility] Last Admin: 10/07/17 09:53 Dose: 5 mg Bupropion HCl (Wellbutrin Xl) 150 mg PO DAILY [facility] Last Admin: 10/07/17 09:53 Dose: 150 mg Dextrose (Dextrose 50% Inj) 0 ml IV STAT PRN; Protocol PRN Reason: Hypoglycemia Protocol Dextrose (Glutose 15) 0 gm PO ONCE PRN; Protocol PRN Reason: Hypoglycemia Protocol Docusate Sodium (Colace) 100 mg PO DAILY [facility] Last Admin: 10/07/17 09:52 Dose: 100 mg Gabapentin (Neurontin) 100 mg PO TID [facility] Last Admin: 10/07/17 09:52 Dose: 100 mg Glucagon (Glucagen Diagnostic Kit) 0 mg IM STAT PRN; Protocol PRN Reason: Hypoglycemia Protocol Home Med (Patient's Own Medication) 1 tab PO BID [facility] Last Admin: 10/07/17 09:51 Dose: 1 tab Hydrochlorothiazide (Microzide) 12.5 mg PO DAILY [facility] Last Admin: 10/06/17 11:46 Dose: 12.5 mg Insulin Aspart (Novolog) 10 unit SC ACHS [facility] Insulin Human Regular (Novolin R) 0 unit SC ACHS [facility] PRN Reason: Protocol Last Admin: 10/07/17 11:25 Dose: 12 unit Latanoprost (Xalatan Opht) 0 ml OU HS [facility] Last Admin: 10/06/17 21:40 Dose: 2.5 ml Losartan Potassium (Cozaar) 100 mg PO DAILY [facility] Last Admin: 10/07/17 09:53 Dose: 100 mg Pantoprazole Sodium (Protonix Ec Tab) 40 mg PO DAILY [facility] Last Admin: 10/07/17 09:52 Dose: 40 mg Rosuvastatin Calcium (Crestor) 20 mg PO HS [facility] Last Admin: 10/06/17 21:41 Dose: 20 mg - Labs Labs: 10/07/17 06:48 10/07/17 06:48 PT 11.5 SECONDS (9.7-12.2) 10/03/17 10:30 INR 1.1 10/03/17 10:30 APTT 26 SECONDS (21-34) 10/03/17 10:30 Attending/Attestation - Attestation I have personally seen and examined this patient.: Yes I have fully participated in the care of the patient.: Yes I have reviewed all pertinent clinical information, including history, physical exam and plan: Yes Notes (Text): 10/07/17 11:51 Medical attending: Patient was seen and examined by me as well, agree with the above note with family present The patient today was more alert and awake. She was able to answer simple yes or no to questions. Also was able to follow simple commands such as squeezing my hand and lifting her arms and legs. Affect is still very slow. Na is 130 today - probably from high blood glucoses. Will increase long acting to 20 BID and also added on Novolog 10 units with meals. Also held the HCTZ for the time being as well. The accuchecks are very high. Per family she normally takes several medications for DM at home. David Beaulieu
[2017-10-07] MEDS: VASCEPA 1GM PO SCH ×2 (09:51→17:37)
[2017-10-07] MEDS: Pantoprazole 40 mg EC Tab PO SCH (09:52)
[2017-10-07] MEDS: buPROPion 150 mg/24 Hours XL Tab PO SCH (09:53)
[2017-10-07] MEDS ORDERED: Insulin Detemir 100 units/ml Vial (Levemir) SC SCH (10:00)
--- NOTE | 2017-10-07 11:09 | CP.PCM.PN ---
Subjective - Date & Time of Evaluation Date of Evaluation: 10/07/17 Time of Evaluation: 11:08 - Subjective Subjective: pt appears much better more awake easil following commands liliana eom full talking more will repeat CT in AM Awaiting EEG Objective - Vital Signs/Intake and Output Vital Signs (last 24 hours): Temp Pulse Resp BP Pulse Ox 97.5 F L 81 20 111/68 96 10/07/17 07:00 10/07/17 07:00 10/07/17 07:00 10/07/17 07:00 10/07/17 07:00 Intake and Output: 10/07/17 10/07/17 06:59 18:59 Output Total 750 Balance -750 - Medications Medications: Current Medications Albuterol/Ipratropium (Duoneb 3 Mg/0.5 Mg (3 Ml) Ud) 3 ml INH RQ6 PRN PRN Reason: Shortness of Breath Amlodipine Besylate (Norvasc) 5 mg PO DAILY [facility] Last Admin: 10/07/17 09:53 Dose: 5 mg Bupropion HCl (Wellbutrin Xl) 150 mg PO DAILY [facility] Last Admin: 10/07/17 09:53 Dose: 150 mg Dextrose (Dextrose 50% Inj) 0 ml IV STAT PRN; Protocol PRN Reason: Hypoglycemia Protocol Dextrose (Glutose 15) 0 gm PO ONCE PRN; Protocol PRN Reason: Hypoglycemia Protocol Docusate Sodium (Colace) 100 mg PO DAILY [facility] Last Admin: 10/07/17 09:52 Dose: 100 mg Gabapentin (Neurontin) 100 mg PO TID [facility] Last Admin: 10/07/17 09:52 Dose: 100 mg Glucagon (Glucagen Diagnostic Kit) 0 mg IM STAT PRN; Protocol PRN Reason: Hypoglycemia Protocol Home Med (Patient's Own Medication) 1 tab PO BID [facility] Last Admin: 10/07/17 09:51 Dose: 1 tab Hydrochlorothiazide (Microzide) 12.5 mg PO DAILY [facility] Last Admin: 10/06/17 11:46 Dose: 12.5 mg Insulin Detemir (Levemir) 12 unit SC Q12 [facility] Last Admin: 10/07/17 09:53 Dose: 12 unit Insulin Human Regular (Novolin R) 0 unit SC ACHS [facility] PRN Reason: Protocol Latanoprost (Xalatan Opht) 0 ml OU HS [facility] Last Admin: 10/06/17 21:40 Dose: 2.5 ml Losartan Potassium (Cozaar) 100 mg PO DAILY [facility] Last Admin: 10/07/17 09:53 Dose: 100 mg Pantoprazole Sodium (Protonix Ec Tab) 40 mg PO DAILY [facility] Last Admin: 10/07/17 09:52 Dose: 40 mg Rosuvastatin Calcium (Crestor) 20 mg PO HS [facility] Last Admin: 10/06/17 21:41 Dose: 20 mg - Labs Labs: 10/07/17 06:48 10/07/17 06:48 PT 11.5 SECONDS (9.7-12.2) 10/03/17 10:30 INR 1.1 10/03/17 10:30 APTT 26 SECONDS (21-34) 10/03/17 10:30
[2017-10-07] MEDS: Insulin Detemir 100 units/ml Vial (Levemir) SC SCH ×2 (13:22→21:15)
[2017-10-07] MEDS: (Novolog) Insulin Aspart, Recombinant 100 u/ml 10 ml vial SC SCH ×2 (16:17→21:13)
[2017-10-07] MEDS ORDERED: (Novolin R) Insulin Human Regular 100 units/ml vial SC ONE (21:01)
[2017-10-07] MEDS: Latanoprost 2.5 ml Opht Soln OU SCH (22:00)
[2017-10-08 08:04] LABS: BASO # 0.1 K/uL (0.0-0.2); BASO % 0.6 % (0.0-2.0); EOS # 0.2 K/uL (0.0-0.7); HEMOGLOBIN 14.5 g/dL (11.0-16.0); LYMPH # 2.3 K/uL (1.0-4.3); LYMPH % 23.3 % (20.0-40.0); MEAN CELL VOLUME 84.3 fL (81.0-99.0); MEAN CORPUSCULAR HEMOGLOBIN 29.6 pg (27.0-31.0); MEAN CORPUSCULAR HGB CONC 35.1 g/dL (33.0-37.0); MEAN PLATELET VOLUME 8.7 fL (7.2-11.7); MONO # 0.6 K/uL (0.0-0.8); MONO % 6.3 % (0.0-10.0); NEUT # 6.7 K/uL (1.8-7.0); NEUT % 67.8 % (50.0-75.0); NRBC % 0.1 % (0.0-2.0); RBC 4.91 Mil/uL (3.80-5.20); RED CELL DISTRIBUTION WIDTH 14.7 % (11.5-14.5); WHITE BLOOD COUNT 9.9 K/uL (4.8-10.8)
[2017-10-08] MEDS: (Novolin R) Insulin Human Regular 100 units/ml vial SC SCH ×4 (08:24→21:22)
[2017-10-08] MEDS: (Novolog) Insulin Aspart, Recombinant 100 u/ml 10 ml vial SC SCH ×3 (08:25→17:01)
--- NOTE | 2017-10-08 08:26 | CP.PCM.PN ---
<Luis Fernando Grewal - Last Filed: 10/08/17 08:23> Subjective - Date & Time of Evaluation Date of Evaluation: 10/08/17 Time of Evaluation: 08:25 - Subjective Subjective: PGY2 Note for Dr. Beaulieu This patient was seen and examined at bedside this AM; as per family the patient started to "decline" after 2pm 6/2 becoming more lethargic, tired and sleepy and not as alert as when I had examined her in the AM. She is unable to follow commands, but is arousable to voice and pain. Unable to obtain subjective history otherwise. Objective - Vital Signs/Intake and Output Vital Signs (last 24 hours): Temp Pulse Resp BP Pulse Ox 99.0 F 100 H 20 153/90 H 97 10/08/17 07:00 10/08/17 07:00 10/08/17 07:00 10/08/17 07:00 10/08/17 07:00 Intake and Output: 10/08/17 10/08/17 06:59 18:59 Intake Total 290 Output Total 600 Balance -310 - Medications Medications: Current Medications Albuterol/Ipratropium (Duoneb 3 Mg/0.5 Mg (3 Ml) Ud) 3 ml INH RQ6 PRN PRN Reason: Shortness of Breath Amlodipine Besylate (Norvasc) 5 mg PO DAILY [facility] Last Admin: 10/07/17 09:53 Dose: 5 mg Bupropion HCl (Wellbutrin Xl) 150 mg PO DAILY [facility] Last Admin: 10/07/17 09:53 Dose: 150 mg Dextrose (Dextrose 50% Inj) 0 ml IV STAT PRN; Protocol PRN Reason: Hypoglycemia Protocol Dextrose (Glutose 15) 0 gm PO ONCE PRN; Protocol PRN Reason: Hypoglycemia Protocol Docusate Sodium (Colace) 100 mg PO DAILY [facility] Last Admin: 10/07/17 09:52 Dose: 100 mg Gabapentin (Neurontin) 100 mg PO TID [facility] Last Admin: 10/07/17 17:37 Dose: 100 mg Glucagon (Glucagen Diagnostic Kit) 0 mg IM STAT PRN; Protocol PRN Reason: Hypoglycemia Protocol Home Med (Patient's Own Medication) 1 tab PO BID [facility] Last Admin: 10/07/17 17:37 Dose: 1 tab Hydrochlorothiazide (Microzide) 12.5 mg PO DAILY [facility] Last Admin: 10/06/17 11:46 Dose: 12.5 mg Insulin Aspart (Novolog) 10 unit SC ACHS [facility] Last Admin: 10/07/17 21:13 Dose: 10 unit Insulin Detemir (Levemir) 20 unit SC Q12 [facility] Last Admin: 10/07/17 21:15 Dose: 20 unit Insulin Human Regular (Novolin R) 0 unit SC ACHS [facility] PRN Reason: Protocol Last Admin: 10/07/17 21:10 Dose: 4 unit Latanoprost (Xalatan Opht) 0 ml OU HS [facility] Last Admin: 10/07/17 22:00 Dose: 2.5 ml Losartan Potassium (Cozaar) 100 mg PO DAILY [facility] Last Admin: 10/07/17 09:53 Dose: 100 mg Pantoprazole Sodium (Protonix Ec Tab) 40 mg PO DAILY [facility] Last Admin: 10/07/17 09:52 Dose: 40 mg Rosuvastatin Calcium (Crestor) 20 mg PO HS [facility] Last Admin: 10/07/17 22:00 Dose: Not Given - Labs Labs: 10/08/17 07:58 10/07/17 06:48 PT 11.5 SECONDS (9.7-12.2) 10/03/17 10:30 INR 1.1 10/03/17 10:30 APTT 26 SECONDS (21-34) 10/03/17 10:30 Assessment and Plan - Assessment and Plan (Free Text) Assessment: Appears: Non-toxic - Head Exam Head Exam: ATRAUMATIC, NORMAL INSPECTION - Eye Exam Eye Exam: EOMI, PERRL - ENT Exam ENT Exam: Mucous Membranes Moist - Neck Exam Neck Exam: Full ROM - Respiratory Exam Respiratory Exam: Clear to Ausculation Bilateral, NORMAL BREATHING PATTERN. absent: Rales - Cardiovascular Exam Cardiovascular Exam: REGULAR RHYTHM, +S1, +S2 - GI/Abdominal Exam GI & Abdominal Exam: Soft, Normal Bowel Sounds. absent: Tenderness - Extremities Exam Extremities Exam: Full ROM. absent: Calf Tenderness - Back Exam Back Exam: NORMAL INSPECTION. absent: CVA tenderness (L), CVA tenderness (R) - Neurological Exam Neurological Exam: asleep but arousable to voice and pain,. 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 Nothing to do at this time inpatient. (family was informed of these instructions) CT Head (10/03): shunt in place ventricles has enlarged compared to prior study, chronic microvascular changes, old lacunar infarcts, Shuntogram (10/03): ventricular catheter entering from a right sided approach, visualized extracranial tubing intact CT head (10/06): shows slight improvement of ventricles and METAL TURNER shunt malfunction. Visiting with Dr. Beaulieu, patient still does not respond well and is asleep at bedside. Repeat CT head shows slight improvement of ventricles and METAL TURNER shunt malfunction. Dr. Rios said to monitor for 24-48 hours 10/07: repeat head CT pending as per neurosurgery Altered Mental Status; improving likely secondary to NPH F/u UA, blood cultures, urine culture Patient is afebrile, no white count Chest X ray - negative Troponin negative Ammonia 11 10/07:as per family; patient is ambulatory and speaks in full coherent sentences and ANOx3 at baseline; currently ANOx2; speaking more clearly, opening eyes. Improving but not at baseline 10/08: patient is drousy and not as alert as yesterday; will answer to name and pain, but is otherwise obtunded DM 2 Uncontrolled diabetes Accuchecks QAC and HS Medium Dose insulin sliding scale Will hold home metformin while in the hospital -will continue to monitor and titrate as appropriate HLD Continue statin Asthma Duonebs prn Controlled Not wheezing Hypertension, controlled Norvasc 5mg PO daily Prophylactic measure Protonix 40mg PO daily SCDs Case discussed and seen with attending physician Luis Fernando Grewal PGY2 <David Beaulieu - Last Filed: 10/08/17 09:34> Objective - Vital Signs/Intake and Output Vital Signs (last 24 hours): Temp Pulse Resp BP Pulse Ox 99.0 F 100 H 20 153/90 H 97 10/08/17 07:00 10/08/17 07:00 10/08/17 07:00 10/08/17 07:00 10/08/17 07:00 Intake and Output: 10/08/17 10/08/17 06:59 18:59 Intake Total 290 Output Total 600 Balance -310 - Medications Medications: Current Medications Albuterol/Ipratropium (Duoneb 3 Mg/0.5 Mg (3 Ml) Ud) 3 ml INH RQ6 PRN PRN Reason: Shortness of Breath Amlodipine Besylate (Norvasc) 5 mg PO DAILY [facility] Last Admin: 10/07/17 09:53 Dose: 5 mg Bupropion HCl (Wellbutrin Xl) 150 mg PO DAILY [facility] Last Admin: 10/07/17 09:53 Dose: 150 mg Dextrose (Dextrose 50% Inj) 0 ml IV STAT PRN; Protocol PRN Reason: Hypoglycemia Protocol Dextrose (Glutose 15) 0 gm PO ONCE PRN; Protocol PRN Reason: Hypoglycemia Protocol Docusate Sodium (Colace) 100 mg PO DAILY [facility] Last Admin: 10/07/17 09:52 Dose: 100 mg Gabapentin (Neurontin) 100 mg PO TID [facility] Last Admin: 10/07/17 17:37 Dose: 100 mg Glucagon (Glucagen Diagnostic Kit) 0 mg IM STAT PRN; Protocol PRN Reason: Hypoglycemia Protocol Heparin Sodium (Porcine) (Heparin) 5,000 units SC Q8 [facility] Home Med (Patient's Own Medication) 1 tab PO BID [facility] Last Admin: 10/07/17 17:37 Dose: 1 tab Hydrochlorothiazide (Microzide) 12.5 mg PO DAILY [facility] Last Admin: 10/06/17 11:46 Dose: 12.5 mg Insulin Aspart (Novolog) 15 unit SC [facility] Insulin Detemir (Levemir) 20 unit SC Q12 [facility] Last Admin: 10/07/17 21:15 Dose: 20 unit Insulin Human Regular (Novolin R) 0 unit SC ACHS [facility] PRN Reason: Protocol Last Admin: 10/08/17 08:24 Dose: 8 unit Latanoprost (Xalatan Opht) 0 ml OU HS [facility] Last Admin: 10/07/17 22:00 Dose: 2.5 ml Losartan Potassium (Cozaar) 100 mg PO DAILY [facility] Last Admin: 10/07/17 09:53 Dose: 100 mg Pantoprazole Sodium (Protonix Ec Tab) 40 mg PO DAILY [facility] Last Admin: 10/07/17 09:52 Dose: 40 mg Rosuvastatin Calcium (Crestor) 20 mg PO HS [facility] Last Admin: 10/07/17 22:00 Dose: Not Given - Labs Labs: 10/08/17 07:58 10/08/17 07:58 PT 11.5 SECONDS (9.7-12.2) 10/03/17 10:30 INR 1.1 10/03/17 10:30 APTT 26 SECONDS (21-34) 10/03/17 10:30 Attending/Attestation - Attestation I have personally seen and examined this patient.: Yes I have fully participated in the care of the patient.: Yes I have reviewed all pertinent clinical information, including history, physical exam and plan: Yes Notes (Text): 10/08/17 09:31 Medical attending: Patient was seen and examined by me as well. Agree with the above note by the resident The patient had family member at bedside Today she was not arousable to her name. She was moving her arms and hands. She was not following commands like she was yesterday. Patient was seen with neurosurgeon in the room. Further adjustments to the shunt was made. She has had 3rd CT of the head done. Per neurosurgery if there is no change again with this additional adjustment of the shunt then she may require going back to the OR Will consult neurology as well. There is already an EEG ordered thank you David Beaulieu
[2017-10-08 08:29] LABS: ALB/GLOB RATIO 1.3 (1.0-2.1); ALBUMIN 3.8 g/dL (3.5-5.0); ALT/SGPT 22 U/L (9-52); AST/SGOT 23 U/L (14-36); BLOOD UREA NITROGEN 38 mg/dL (7-17); CALCIUM 9.3 mg/dl (8.6-10.4); GFR AFRICAN-AMERICAN > 60; GFR NON-AFRICAN AMERICAN 50
--- NOTE | 2017-10-08 09:30 | CP.PCM.PN ---
Subjective - Date & Time of Evaluation Date of Evaluation: 10/08/17 Time of Evaluation: 09:29 - Subjective Subjective: pt still lithargic moving spont some eye opening not verbal CT unchanged will drop OP to 1 on shunt today and observe Objective - Vital Signs/Intake and Output Vital Signs (last 24 hours): Temp Pulse Resp BP Pulse Ox 99.0 F 100 H 20 153/90 H 97 10/08/17 07:00 10/08/17 07:00 10/08/17 07:00 10/08/17 07:00 10/08/17 07:00 Intake and Output: 10/08/17 10/08/17 06:59 18:59 Intake Total 290 Output Total 600 Balance -310 - Medications Medications: Current Medications Albuterol/Ipratropium (Duoneb 3 Mg/0.5 Mg (3 Ml) Ud) 3 ml INH RQ6 PRN PRN Reason: Shortness of Breath Amlodipine Besylate (Norvasc) 5 mg PO DAILY [facility] Last Admin: 10/07/17 09:53 Dose: 5 mg Bupropion HCl (Wellbutrin Xl) 150 mg PO DAILY [facility] Last Admin: 10/07/17 09:53 Dose: 150 mg Dextrose (Dextrose 50% Inj) 0 ml IV STAT PRN; Protocol PRN Reason: Hypoglycemia Protocol Dextrose (Glutose 15) 0 gm PO ONCE PRN; Protocol PRN Reason: Hypoglycemia Protocol Docusate Sodium (Colace) 100 mg PO DAILY [facility] Last Admin: 10/07/17 09:52 Dose: 100 mg Gabapentin (Neurontin) 100 mg PO TID [facility] Last Admin: 10/07/17 17:37 Dose: 100 mg Glucagon (Glucagen Diagnostic Kit) 0 mg IM STAT PRN; Protocol PRN Reason: Hypoglycemia Protocol Heparin Sodium (Porcine) (Heparin) 5,000 units SC Q8 [facility] Home Med (Patient's Own Medication) 1 tab PO BID [facility] Last Admin: 10/07/17 17:37 Dose: 1 tab Hydrochlorothiazide (Microzide) 12.5 mg PO DAILY [facility] Last Admin: 10/06/17 11:46 Dose: 12.5 mg Insulin Aspart (Novolog) 15 unit SC [facility] Insulin Detemir (Levemir) 20 unit SC Q12 [facility] Last Admin: 10/07/17 21:15 Dose: 20 unit Insulin Human Regular (Novolin R) 0 unit SC ACHS [facility] PRN Reason: Protocol Last Admin: 10/08/17 08:24 Dose: 8 unit Latanoprost (Xalatan Opht) 0 ml OU HS [facility] Last Admin: 10/07/17 22:00 Dose: 2.5 ml Losartan Potassium (Cozaar) 100 mg PO DAILY [facility] Last Admin: 10/07/17 09:53 Dose: 100 mg Pantoprazole Sodium (Protonix Ec Tab) 40 mg PO DAILY [facility] Last Admin: 10/07/17 09:52 Dose: 40 mg Rosuvastatin Calcium (Crestor) 20 mg PO HS [facility] Last Admin: 10/07/17 22:00 Dose: Not Given - Labs Labs: 10/08/17 07:58 10/08/17 07:58 PT 11.5 SECONDS (9.7-12.2) 10/03/17 10:30 INR 1.1 10/03/17 10:30 APTT 26 SECONDS (21-34) 10/03/17 10:30
[2017-10-08] MEDS ORDERED: Insulin Detemir 100 units/ml Vial (Levemir) SC SCH (10:00)
[2017-10-08] MEDS: Pantoprazole 40 mg EC Tab PO SCH (10:01)
[2017-10-08] MEDS: VASCEPA 1GM PO SCH ×2 (10:01→17:37)
[2017-10-08] MEDS: buPROPion 150 mg/24 Hours XL Tab PO SCH (10:02)
--- NOTE | 2017-10-08 10:08 | CT ---
PROCEDURE: CT HEAD WITHOUT CONTRAST. HISTORY: follow up COMPARISON: None available. TECHNIQUE: Axial computed tomography images were obtained through the head/brain without intravenous contrast. Radiation dose: Total exam DLP = 903.7 mGy-cm. This CT exam was performed using one or more of the following dose reduction techniques: Automated exposure control, adjustment of the mA and/or kV according to patient size, and/or use of iterative reconstruction technique. FINDINGS: HEMORRHAGE: No acute parenchymal, subarachnoid nor extra-axial hemorrhage. BRAIN: Again noted is in situ [employer] shunt to which enters a right frontal sarina hole, courses through the right frontal lobe and into the right superior frontal horn terminating near the right foramen of Monro. Ventricles have remain markedly dilated questionable increased slightly in the size slightly when compared with prior study 10/06/2017. . . Findings are consistent with shunt malfunction. There are confluent low-attenuation changes seen in the periventricular white matter most conspicuous in the periatrial/ perioccipital horn regions. . Underlying chronic periventricular white matter ischemic changes may contribute. Clinical correlation recommended VENTRICLES: As above CALVARIUM: Unremarkable. PARANASAL SINUSES: Unremarkable as visualized. No significant inflammatory changes. MASTOID AIR CELLS: Unremarkable as visualized. No inflammatory changes. OTHER FINDINGS: None. IMPRESSION: Ventricles remain markedly dilated questionably increased slightly in size when compared with prior study 10/06/2017. Findings are consistent with shunt malfunction. There are confluent low-attenuation changes seen in the periventricular white matter most conspicuous in the periatrial/ perioccipital horn regions. . Underlying chronic periventricular white matter ischemic changes may contribute. Clinical correlation recommended
--- NOTE | 2017-10-08 10:42 | RAD ---
Chest x-ray single frontal view History: Fever. Comparison: 10/03/2017 Findings: Mild diffuse increased interstitial lung markings which may represent underlying infiltrate and or edema. Clinical correlation. Tortuous ectatic aorta. Mild cardiomegaly. Degenerative changes in the spine. Tubing projects over the right hemithorax. Impression: Mild diffuse increased interstitial lung markings which may represent underlying infiltrate and or edema. Clinical correlation. Tortuous ectatic aorta. Mild cardiomegaly. Degenerative changes in the spine. Tubing projects over the right hemithorax.
[2017-10-08 11:19] LABS: VENOUS BLOOD GAS BASE EXCESS 2.4 mmol/L (0.0-2.0); VENOUS BLOOD GAS PCO2 38 mmHg (40-60); VENOUS BLOOD GAS PO2 64 mm/Hg (30-55); VENOUS BLOOD PH 7.45 (7.32-7.43)
[2017-10-08 11:37] LABS: SQUAMOUS EPITHIAL 3 /hpf (0-5); URINE BILIRUBIN NEGATIVE (NEGATIVE); URINE BLOOD NEGATIVE (NEGATIVE); URINE CLARITY Hazy (Clear); URINE COLOR Yellow (YELLOW); URINE GLUCOSE (UA) 3+ mg/dL (Normal); URINE LEUKOCYTE ESTERASE NEG Leu/uL (Negative); URINE PROTEIN NEGATIVE (NEGATIVE); URINE UROBILINOGEN NORMAL mg/dL (0.2-1.0)
--- NOTE | 2017-10-08 15:47 | CP.PCM.CON ---
History of Present Illness - History of Present Illness History of Present Illness: 66 yr old woman who is a patient of ( appreciate consult and management) and who has NPH, s/p multiple shunt adjustments, now with changes in level of consciousness. She was initially brought to the hospital last week with a history of confusion for about 3 weeks, dating to the time she had a shunt revision for shunt failure. It was revised in February 2017. During the last couple of days she has been having spells of confusion, staring and loss of time. She does have baseline dementia. PMH: HTN, Diabetes, hypercholesterolemia, and asthma PSH: SHAKER OUT shunt, placed by neurosurgeon Dr. Shepherd at [facility] in [place] with revision in 02/2017 at [facility] Allergies: NKDA Meds: Wellbutrin 150mg Po daily. Norvasc 5mg Po daily. Valsartan/HCTZ 12.5/ 160mg PO daily Simvastatin 40mg PO HS, Metformin 1000mg PO BID Meclizine 25mg PO Q12 hours, Xalatan Opth drop OU HS, Humalog/Levemir (do not know dosing), Vascepa 1gm PO BID, Gabapentin 100mg PO TID, Colace 100mg PO daily , Dexilant 60mg PO daily Famhx: denies Social: Denies drug/alcohol/tobacco use on exam: alert aware and oriented only to self. Doesnt know day or date. PERRL. EOMI Rest of neuro exam is normal. I do not appreciate any dysmetria. Gait is wide based, and she falls to both sides. Past Patient History - Infectious Disease Hx of Infectious Diseases: None - Past Medical History & Family History Past Medical History?: Yes - Past Social History Smoking Status: Never Smoked - CARDIAC Hx Hypercholesterolemia: Yes Hx Hypertension: Yes - PULMONARY Hx Asthma: Yes - NEUROLOGICAL Hx Neurological Disorder: Yes Hx Vertigo: Yes Other/Comment: Hydrocephalus with Shunt - ENDOCRINE/METABOLIC Hx Diabetes Mellitus Type 2: Yes - MUSCULOSKELETAL/RHEUMATOLOGICAL Hx Musculoskeletal Disorders: Yes Hx Falls: Yes - PSYCHIATRIC Hx Substance Use: No - SURGICAL HISTORY Hx Surgeries: Yes Other/Comment: Shunt for Hydrocephalus - ANESTHESIA Hx Anesthesia: Yes Hx Anesthesia Reactions: No Meds Home Medications: Home Medication List Medication Instructions Recorded Confirmed Type Furosemide [Lasix] 20 mg PO BID #14 tablet 10/04/17 Rx Allergies/Adverse Reactions: Allergies Allergy/AdvReac Type Severity Reaction Status Date / Time No Known Allergies Allergy Verified 12/08/15 16:19 - Medications Medications: Current Medications Albuterol/Ipratropium (Duoneb 3 Mg/0.5 Mg (3 Ml) Ud) 3 ml INH RQ6 PRN PRN Reason: Shortness of Breath Amlodipine Besylate (Norvasc) 5 mg PO DAILY [facility] Last Admin: 10/08/17 10:01 Dose: 5 mg Bupropion HCl (Wellbutrin Xl) 150 mg PO DAILY [facility] Last Admin: 10/08/17 10:02 Dose: 150 mg Dextrose (Dextrose 50% Inj) 0 ml IV STAT PRN; Protocol PRN Reason: Hypoglycemia Protocol Dextrose (Glutose 15) 0 gm PO ONCE PRN; Protocol PRN Reason: Hypoglycemia Protocol Docusate Sodium (Colace) 100 mg PO DAILY [facility] Last Admin: 10/08/17 10:01 Dose: 100 mg Gabapentin (Neurontin) 100 mg PO TID [facility] Last Admin: 10/08/17 13:35 Dose: 100 mg Glucagon (Glucagen Diagnostic Kit) 0 mg IM STAT PRN; Protocol PRN Reason: Hypoglycemia Protocol Heparin Sodium (Porcine) (Heparin) 5,000 units SC Q8 [facility] Last Admin: 10/08/17 13:34 Dose: 5,000 units Home Med (Patient's Own Medication) 1 tab PO BID [facility] Last Admin: 10/08/17 10:01 Dose: 1 tab Hydrochlorothiazide (Microzide) 12.5 mg PO DAILY [facility] Last Admin: 10/06/17 11:46 Dose: 12.5 mg Insulin Aspart (Novolog) 15 unit SC [facility] Last Admin: 10/08/17 12:30 Dose: 15 unit Insulin Detemir (Levemir) 25 unit SC Q12 [facility] Insulin Human Regular (Novolin R) 0 unit SC [facility] PRN Reason: Protocol Last Admin: 10/08/17 12:30 Dose: 6 unit Latanoprost (Xalatan Opht) 0 ml OU HS [facility] Last Admin: 10/07/17 22:00 Dose: 2.5 ml Losartan Potassium (Cozaar) 100 mg PO DAILY [facility] Last Admin: 10/08/17 10:01 Dose: 100 mg Pantoprazole Sodium (Protonix Ec Tab) 40 mg PO DAILY [facility] Last Admin: 10/08/17 10:01 Dose: 40 mg Rosuvastatin Calcium (Crestor) 20 mg PO HS [facility] Last Admin: 10/07/17 22:00 Dose: Not Given Valproate Sodium (Depakene Cap) 500 mg PO BID [facility] Results - Vital Signs Recent Vital Signs: Last Vital Signs Temp 99.3 F 10/08/17 10:47 Pulse 100 H 10/08/17 07:00 Resp 20 10/08/17 07:00 BP 153/90 H 10/08/17 07:00 Pulse Ox 97 10/08/17 07:00 - Labs Result Diagrams: 10/08/17 07:58 10/08/17 07:58 Labs: Laboratory Results - last 24 hr 10/07/17 10/07/17 10/08/17 16:10 20:42 01:12 WBC RBC Hgb Hct MCV MCH MCHC RDW Plt Count MPV Neut % (Auto) Lymph % (Auto) [place] % (Auto) Eos % (Auto) Baso % (Auto) Neut # (Auto) Lymph # (Auto) [place] # (Auto) Eos # (Auto) Baso # (Auto) pO2 VBG pH VBG pCO2 VBG HCO3 VBG Total CO2 VBG O2 Sat (Calc) VBG Base Excess VBG Potassium Glucose Lactate Sodium Potassium Chloride Carbon Dioxide Anion Gap BUN Creatinine Est GFR ( Amer) Est GFR (Non-Af Amer) POC Glucose (mg/dL) 420 H* 453 H* 400 H* Random Glucose Calcium Phosphorus Magnesium Total Bilirubin AST ALT Alkaline Phosphatase Ammonia Total Protein Albumin Globulin Albumin/Globulin Ratio Venous Blood Potassium Urine Color Urine Clarity Urine pH Ur Specific [place] Urine Protein Urine Glucose (UA) Urine Ketones Urine Blood Urine Nitrate Urine Bilirubin Urine Urobilinogen Ur Leukocyte Esterase Urine WBC (Auto) Urine RBC (Auto) Ur Squamous Epith Cells 10/08/17 10/08/17 10/08/17 06:16 07:58 07:58 WBC 9.9 RBC 4.91 Hgb 14.5 Hct 41.4 MCV 84.3 MCH 29.6 MCHC 35.1 RDW 14.7 H Plt Count 241 MPV 8.7 Neut % (Auto) 67.8 Lymph % (Auto) 23.3 [place] % (Auto) 6.3 Eos % (Auto) 2.0 Baso % (Auto) 0.6 Neut # (Auto) 6.7 Lymph # (Auto) 2.3 [place] # (Auto) 0.6 Eos # (Auto) 0.2 Baso # (Auto) 0.1 pO2 VBG pH VBG pCO2 VBG HCO3 VBG Total CO2 VBG O2 Sat (Calc) VBG Base Excess VBG Potassium Glucose Lactate Sodium 136 Potassium 3.5 L Chloride 97 L Carbon Dioxide 25 Anion Gap 18 BUN 38 H Creatinine 1.1 Est GFR ( Amer) > 60 Est GFR (Non-Af Amer) 50 POC Glucose (mg/dL) 331 H Random Glucose 309 H Calcium 9.3 Phosphorus 4.1 Magnesium 2.0 Total Bilirubin 0.4 AST 23 ALT 22 Alkaline Phosphatase 81 Ammonia Total Protein 6.7 Albumin 3.8 Globulin 2.9 Albumin/Globulin Ratio 1.3 Venous Blood Potassium Urine Color Urine Clarity Urine pH Ur Specific Anderson Urine Protein Urine Glucose (UA) Urine Ketones Urine Blood Urine Nitrate Urine Bilirubin Urine Urobilinogen Ur Leukocyte Esterase Urine WBC (Auto) Urine RBC (Auto) Ur Squamous Epith Cells 10/08/17 10/08/17 10/08/17 11:13 11:22 11:22 WBC RBC Hgb Hct MCV MCH MCHC RDW Plt Count MPV Neut % (Auto) Lymph % (Auto) [place] % (Auto) Eos % (Auto) Baso % (Auto) Neut # (Auto) Lymph # (Auto) [place] # (Auto) Eos # (Auto) Baso # (Auto) pO2 64 H VBG pH 7.45 H VBG pCO2 38 L VBG HCO3 26.7 VBG Total CO2 27.6 VBG O2 Sat (Calc) 94.6 H VBG Base Excess 2.4 H VBG Potassium 3.4 L Glucose 339 H Lactate 2.0 Sodium 132.0 Potassium Chloride 98.0 Carbon Dioxide Anion Gap BUN Creatinine Est GFR ( Amer) Est GFR (Non-Af Amer) POC Glucose (mg/dL) Random Glucose Calcium Phosphorus Magnesium Total Bilirubin AST ALT Alkaline Phosphatase Ammonia 15 D Total Protein Albumin Globulin Albumin/Globulin Ratio Venous Blood Potassium 3.4 L Urine Color Yellow Urine Clarity Hazy Urine pH 5.0 Ur Specific [place] 1.021 Urine Protein Negative Urine Glucose (UA) 3+ H Urine Ketones Negative Urine Blood Negative Urine Nitrate Negative Urine Bilirubin Negative Urine Urobilinogen Normal Ur Leukocyte Esterase Neg Urine WBC (Auto) 1 Urine RBC (Auto) 1 Ur Squamous Epith Cells 3 10/08/17 11:27 WBC RBC Hgb Hct MCV MCH MCHC RDW Plt Count MPV Neut % (Auto) Lymph % (Auto) [place] % (Auto) Eos % (Auto) Baso % (Auto) Neut # (Auto) Lymph # (Auto) [place] # (Auto) Eos # (Auto) Baso # (Auto) pO2 VBG pH VBG pCO2 VBG HCO3 VBG Total CO2 VBG O2 Sat (Calc) VBG Base Excess VBG Potassium Glucose Lactate Sodium Potassium Chloride Carbon Dioxide Anion Gap BUN Creatinine Est GFR ( Amer) Est GFR (Non-Af Amer) POC Glucose (mg/dL) 290 H Random Glucose Calcium Phosphorus Magnesium Total Bilirubin AST ALT Alkaline Phosphatase Ammonia Total Protein Albumin Globulin Albumin/Globulin Ratio Venous Blood Potassium Urine Color Urine Clarity Urine pH Ur Specific [place] Urine Protein Urine Glucose (UA) Urine Ketones Urine Blood Urine Nitrate Urine Bilirubin Urine Urobilinogen Ur Leukocyte Esterase Urine WBC (Auto) Urine RBC (Auto) Ur Squamous Epith Cells - Imaging and Cardiology CT scan - head Status: Image reviewed by me, Report reviewed by me (ct head shows dilated ventricles and right frontal shunt with csf seapage showing shunt failure. ) Assessment & Plan - Assessment and Plan (Free Text) Assessment: 66 yr old woman with SHAKER OUT Shunt failure, manged by neurosurgery who is having spells that may be unrelated to shunt and not require replacement. We will start her on depakote, obtain EEG and monitor. If she does not improve, shunt revision is planned. Thank you Dr. jensen
[2017-10-08] MEDS: Latanoprost 2.5 ml Opht Soln OU SCH (22:06)
[2017-10-08] MEDS: Insulin Detemir 100 units/ml Vial (Levemir) SC SCH (22:09)
--- NOTE | 2017-10-09 07:37 | CP.PCM.PN ---
<Nikko Hart - Last Filed: 10/09/17 10:14> Subjective - Date & Time of Evaluation Date of Evaluation: 10/09/17 Time of Evaluation: 10:14 - Subjective Subjective: PGY1 Medicine Note for Dr. Parsons Patient seen and examined this morning at bedside. No acute events overnight. Patient's daughter is at bedside. Per daughter, patient woke up stating she was thirsty. Took a drink and then fell back asleep. Patient will say a couple of words but is still very lethargic. Patient does not want to wake up this morning. ROS unavailable. Objective - Vital Signs/Intake and Output Vital Signs (last 24 hours): Temp Pulse Resp BP Pulse Ox 98.3 F 96 H 20 92/59 L 96 10/08/17 23:11 10/09/17 00:00 10/08/17 23:11 10/08/17 23:11 10/08/17 23:11 Intake and Output: 10/09/17 10/09/17 06:59 18:59 Intake Total 60 Output Total 250 Balance -190 - Medications Medications: Current Medications Amlodipine Besylate (Norvasc) 5 mg PO DAILY [facility] Last Admin: 10/08/17 10:01 Dose: 5 mg Bupropion HCl (Wellbutrin Xl) 150 mg PO DAILY [facility] Last Admin: 10/08/17 10:02 Dose: 150 mg Dextrose (Dextrose 50% Inj) 0 ml IV STAT PRN; Protocol PRN Reason: Hypoglycemia Protocol Dextrose (Glutose 15) 0 gm PO ONCE PRN; Protocol PRN Reason: Hypoglycemia Protocol Docusate Sodium (Colace) 100 mg PO DAILY [facility] Last Admin: 10/08/17 10:01 Dose: 100 mg Gabapentin (Neurontin) 100 mg PO TID [facility] Last Admin: 10/08/17 17:38 Dose: 100 mg Glucagon (Glucagen Diagnostic Kit) 0 mg IM STAT PRN; Protocol PRN Reason: Hypoglycemia Protocol Heparin Sodium (Porcine) (Heparin) 5,000 units SC Q8 [facility] Last Admin: 10/09/17 05:50 Dose: 5,000 units Home Med (Patient's Own Medication) 1 tab PO BID [facility] Last Admin: 10/08/17 17:37 Dose: 1 tab Hydrochlorothiazide (Microzide) 12.5 mg PO DAILY [facility] Last Admin: 10/06/17 11:46 Dose: 12.5 mg Insulin Aspart (Novolog) 15 unit SC ACHS [facility] Last Admin: 10/08/17 17:01 Dose: 15 unit Insulin Detemir (Levemir) 25 unit SC Q12 [facility] Last Admin: 10/08/17 22:09 Dose: 25 unit Insulin Human Regular (Novolin R) 0 unit SC [facility] PRN Reason: Protocol Last Admin: 10/08/17 21:22 Dose: Not Given Latanoprost (Xalatan Opht) 0 ml OU HS [facility] Last Admin: 10/08/17 22:06 Dose: 2.5 ml Losartan Potassium (Cozaar) 100 mg PO DAILY [facility] Last Admin: 10/08/17 10:01 Dose: 100 mg Pantoprazole Sodium (Protonix Ec Tab) 40 mg PO DAILY [facility] Last Admin: 10/08/17 10:01 Dose: 40 mg Rosuvastatin Calcium (Crestor) 20 mg PO HS [facility] Last Admin: 10/08/17 22:10 Dose: Not Given Valproate Sodium (Depakene Cap) 500 mg PO BID [facility] Last Admin: 10/08/17 17:38 Dose: 500 mg - Labs Labs: 10/08/17 07:58 10/08/17 07:58 PT 11.5 SECONDS (9.7-12.2) 10/03/17 10:30 INR 1.1 10/03/17 10:30 APTT 26 SECONDS (21-34) 10/03/17 10:30 - Constitutional Appears: Non-toxic, No Acute Distress - Head Exam Head Exam: ATRAUMATIC, NORMOCEPHALIC - Eye Exam Eye Exam: PERRL Pupil Exam: absent: NORMAL ACCOMODATION (sluggish) Additional comments: Patient fighting to keep her eyes closed. - ENT Exam ENT Exam: Mucous Membranes Moist - Neck Exam Neck Exam: absent: Lymphadenopathy - Respiratory Exam Respiratory Exam: Clear to Ausculation Bilateral, NORMAL BREATHING PATTERN. absent: Accessory Muscle Use, Rales, Rhonchi, Wheezes, Respiratory Distress - Cardiovascular Exam Cardiovascular Exam: REGULAR RHYTHM, +S1, +S2 - GI/Abdominal Exam GI & Abdominal Exam: Soft, Normal Bowel Sounds. absent: Distended, Firm, Guarding, Rigid, Tenderness - Extremities Exam Extremities Exam: absent: Calf Tenderness, Pedal Edema - Neurological Exam Neurological Exam: absent: Alert, Awake Additional comments: Patient is asleep, refusing to wake up. She responds to pain and some verbal. Will speak a few words. Minimal movement but purposeful. 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 Nothing to do at this time inpatient. (family was informed of these instructions) CT Head (10/03): shunt in place ventricles has enlarged compared to prior study, chronic microvascular changes, old lacunar infarcts, Shuntogram (10/03): ventricular catheter entering from a right sided approach, visualized extracranial tubing intact CT head (10/06): shows slight improvement of ventricles and CELL BUILDER shunt malfunction. CT head (10/08):Ventricles remain markedly dilated questionably increased slightly in size when compared with prior study 10/06/2017. Findings are consistent with shunt malfunction. There are confluent low-attenuation changes seen in the periventricular white matter most conspicuous in the periatrial/ perioccipital horn regions. . Underlying chronic periventricular white matter ischemic changes may contribute. Spoke with Dr. Rios. Plan is to f/u EEG which took place this morning. If no seizure activity will get a Head CT in the morning and plan CELL BUILDER shunt revision tomorrow. Daughter is currently apprehensive about procedure and will decide later this morning if procedure is to take place tomorrow. CELL BUILDER shunt revision is as of now is scheduled for tomorrow, 10/10/17. Altered Mental Status likely secondary to NPH Blood cultures negative at 5 days Urine culture negative Patient is afebrile, no white count Chest X ray - negative Troponin negative Ammonia 11 10/07:as per family; patient is ambulatory and speaks in full coherent sentences and ANOx3 at baseline; currently ANOx2; speaking more clearly, opening eyes. Improving but not at baseline 10/08: patient is drowsy and not as alert as yesterday; will answer to name and pain, but is otherwise obtunded 10/09: patient is lethargic, responding to pain and some verbal stimuli. Will speak few words. Elevated Creatinine Cr elevated to 1.4 (baseline on 10/03 was 0.7) Patient has had poor PO intake over the past two days. Started on NS@100mL/hr DM 2 Uncontrolled diabetes Accuchecks QAC and HS Medium Dose insulin sliding scale Will hold home metformin while in the hospital -will continue to monitor and titrate as appropriate HLD Continue statin Asthma Duonebs prn Controlled Not wheezing Hypertension, controlled Norvasc 5mg PO daily Hyperkalemia K 3.3 repleted continue to monitor Prophylactic measure Protonix 40mg PO daily SCDs Diet: switched to pureed diet. only feed if patient is awake and alert, otherwise NPO. Case discussed with Dr. Jaqueline El Hailey PGY1 <Jessica Parsons - Last Filed: 10/09/17 16:45> Objective - Vital Signs/Intake and Output Vital Signs (last 24 hours): Temp Pulse Resp BP Pulse Ox 98.2 F 83 18 131/81 95 10/09/17 08:14 10/09/17 08:14 10/09/17 08:14 10/09/17 08:14 10/09/17 08:14 Intake and Output: 10/09/17 10/09/17 06:59 18:59 Intake Total 60 Output Total 250 Balance -190 - Medications Medications: Current Medications Amlodipine Besylate (Norvasc) 5 mg PO DAILY [facility] Last Admin: 10/09/17 10:03 Dose: 5 mg Bupropion HCl (Wellbutrin Xl) 150 mg PO DAILY [facility] Last Admin: 10/09/17 10:03 Dose: 150 mg Dextrose (Dextrose 50% Inj) 0 ml IV STAT PRN; Protocol PRN Reason: Hypoglycemia Protocol Dextrose (Glutose 15) 0 gm PO ONCE PRN; Protocol PRN Reason: Hypoglycemia Protocol Docusate Sodium (Colace) 100 mg PO DAILY [facility] Last Admin: 10/09/17 10:04 Dose: 100 mg Gabapentin (Neurontin) 100 mg PO TID [facility] Last Admin: 10/09/17 13:03 Dose: 100 mg Glucagon (Glucagen Diagnostic Kit) 0 mg IM STAT PRN; Protocol PRN Reason: Hypoglycemia Protocol Home Med (Patient's Own Medication) 1 tab PO BID [facility] Last Admin: 10/09/17 10:06 Dose: 1 tab Hydrochlorothiazide (Microzide) 12.5 mg PO DAILY [facility] Last Admin: 10/06/17 11:46 Dose: 12.5 mg Sodium Chloride (Sodium Chloride 0.9%) 1,000 mls @ 100 mls/hr IV .Q10H [facility] Last Admin: 10/09/17 08:31 Dose: 100 mls/hr Insulin Aspart (Novolog) 15 unit SC [facility] Last Admin: 10/09/17 12:30 Dose: 15 unit Insulin Detemir (Levemir) 25 unit SC Q12 [facility] Last Admin: 10/09/17 10:05 Dose: 25 unit Insulin Human Regular (Novolin R) 0 unit SC [facility] PRN Reason: Protocol Last Admin: 10/09/17 12:30 Dose: 6 unit Latanoprost (Xalatan Opht) 0 ml OU HS [facility] Last Admin: 10/08/17 22:06 Dose: 2.5 ml Losartan Potassium (Cozaar) 100 mg PO DAILY [facility] Last Admin: 10/09/17 10:04 Dose: 100 mg Pantoprazole Sodium (Protonix Ec Tab) 40 mg PO DAILY [facility] Last Admin: 10/09/17 10:04 Dose: 40 mg Rosuvastatin Calcium (Crestor) 20 mg PO HS [facility] Last Admin: 10/08/17 22:10 Dose: Not Given Valproate Sodium (Depakene Cap) 500 mg PO BID [facility] Last Admin: 10/09/17 10:10 Dose: 500 mg - Labs Labs: 10/09/17 07:47 10/09/17 07:47 PT 10.9 SECONDS (9.7-12.2) 10/09/17 11:37 INR 1.0 10/09/17 11:37 APTT 26 SECONDS (21-34) 10/03/17 10:30 Attending/Attestation - Attestation I have personally seen and examined this patient.: Yes I have fully participated in the care of the patient.: Yes I have reviewed all pertinent clinical information, including history, physical exam and plan: Yes Notes (Text): Seen and examined by me.Patient is lethargic and snoring. She is arousable. Discussed with daughter at bedside. Patient was asking for water this morning and able to drink with a straw. Dr Gay was at bed side with us.He discussed with her daughter at bedside about options including take her to or to check her CELL BUILDER shunt. Procedure was explained. we will monitor her sugar closely,continue IV fluids,replace K,continue insulin( Sugar was high) and change her diet to dysphagia diet. Fee her if she awake only plan discussed with resident I agree with the docuemntation of the assessment and the plan.
--- NOTE | 2017-10-09 08:05 | CP.PCM.PN ---
Subjective - Date & Time of Evaluation Date of Evaluation: 10/09/17 Time of Evaluation: 08:01 - Subjective Subjective: Ms. Diaz was seen and examined at the bedside. She is lethargic/ somnolent, unable to open her eyes. She fights to close her eyes during assessment, but able to follow two simple commands such as squeezing her hand and raising her bilateral upper extremities. She withdraws from pain stimuli. According to daughter, patient's PO intake decrease since yesterday. There was no untoward events overnight. Objective - Vital Signs/Intake and Output Vital Signs (last 24 hours): Temp Pulse Resp BP Pulse Ox 98.3 F 96 H 20 92/59 L 96 10/08/17 23:11 10/09/17 00:00 10/08/17 23:11 10/08/17 23:11 10/08/17 23:11 Intake and Output: 10/09/17 10/09/17 06:59 18:59 Intake Total 60 Output Total 250 Balance -190 - Medications Medications: Current Medications Amlodipine Besylate (Norvasc) 5 mg PO DAILY [facility] Last Admin: 10/08/17 10:01 Dose: 5 mg Bupropion HCl (Wellbutrin Xl) 150 mg PO DAILY [facility] Last Admin: 10/08/17 10:02 Dose: 150 mg Dextrose (Dextrose 50% Inj) 0 ml IV STAT PRN; Protocol PRN Reason: Hypoglycemia Protocol Dextrose (Glutose 15) 0 gm PO ONCE PRN; Protocol PRN Reason: Hypoglycemia Protocol Docusate Sodium (Colace) 100 mg PO DAILY [facility] Last Admin: 10/08/17 10:01 Dose: 100 mg Gabapentin (Neurontin) 100 mg PO TID [facility] Last Admin: 10/08/17 17:38 Dose: 100 mg Glucagon (Glucagen Diagnostic Kit) 0 mg IM STAT PRN; Protocol PRN Reason: Hypoglycemia Protocol Heparin Sodium (Porcine) (Heparin) 5,000 units SC Q8 [facility] Last Admin: 10/09/17 05:50 Dose: 5,000 units Home Med (Patient's Own Medication) 1 tab PO BID [facility] Last Admin: 10/08/17 17:37 Dose: 1 tab Hydrochlorothiazide (Microzide) 12.5 mg PO DAILY [facility] Last Admin: 10/06/17 11:46 Dose: 12.5 mg Insulin Aspart (Novolog) 15 unit SC ACHS [facility] Last Admin: 10/08/17 17:01 Dose: 15 unit Insulin Detemir (Levemir) 25 unit SC Q12 [facility] Last Admin: 10/08/17 22:09 Dose: 25 unit Insulin Human Regular (Novolin R) 0 unit SC ACHS [facility] PRN Reason: Protocol Last Admin: 10/08/17 21:22 Dose: Not Given Latanoprost (Xalatan Opht) 0 ml OU HS [facility] Last Admin: 10/08/17 22:06 Dose: 2.5 ml Losartan Potassium (Cozaar) 100 mg PO DAILY [facility] Last Admin: 10/08/17 10:01 Dose: 100 mg Pantoprazole Sodium (Protonix Ec Tab) 40 mg PO DAILY [facility] Last Admin: 10/08/17 10:01 Dose: 40 mg Rosuvastatin Calcium (Crestor) 20 mg PO HS [facility] Last Admin: 10/08/17 22:10 Dose: Not Given Valproate Sodium (Depakene Cap) 500 mg PO BID [facility] Last Admin: 10/08/17 17:38 Dose: 500 mg - Labs Labs: 10/08/17 07:58 10/08/17 07:58 PT 11.5 SECONDS (9.7-12.2) 10/03/17 10:30 INR 1.1 10/03/17 10:30 APTT 26 SECONDS (21-34) 10/03/17 10:30 - Constitutional Appears: No Acute Distress - Head Exam Head Exam: NORMAL INSPECTION - Neurological Exam Neuro motor strength exam: Left Upper Extremity: 3, Right Upper Extremity: 3, Left Lower Extremity: 0, Right Lower Extremity: 0 Additional comments: lethargic, withdraws from pain stimuli/ Assessment and Plan (1) Mental status change Assessment & Plan: Case discussed with Dr. Mota, continue all current medical regimen. Pending EEG. Recommend to treat any electrolyte abnormalities, keep head of bed elevated at least 30 degrees, monitor PO intake, if very poor, please notify primary team. Status: Acute
[2017-10-09 08:08] LABS: BASO # 0.1 K/uL (0.0-0.2); BASO % 0.8 % (0.0-2.0); EOS # 0.3 K/uL (0.0-0.7); EOS % 2.9 % (0.0-4.0); HEMOGLOBIN 14.3 g/dL (11.0-16.0); LYMPH # 2.7 K/uL (1.0-4.3); LYMPH % 27.8 % (20.0-40.0); MEAN CORPUSCULAR HEMOGLOBIN 29.5 pg (27.0-31.0); MEAN CORPUSCULAR HGB CONC 35.1 g/dL (33.0-37.0); MEAN PLATELET VOLUME 8.7 fL (7.2-11.7); MONO # 0.6 K/uL (0.0-0.8); MONO % 6.3 % (0.0-10.0); NEUT # 6.1 K/uL (1.8-7.0); NEUT % 62.2 % (50.0-75.0); NRBC % 0.1 % (0.0-2.0); RBC 4.85 Mil/uL (3.80-5.20); RED CELL DISTRIBUTION WIDTH 14.8 % (11.5-14.5); WHITE BLOOD COUNT 9.9 K/uL (4.8-10.8)
[2017-10-09 08:19] LABS: ALB/GLOB RATIO 1.1 (1.0-2.1); ALBUMIN 3.7 g/dL (3.5-5.0); CALCIUM 9.2 mg/dl (8.6-10.4)
[2017-10-09] MEDS: (Novolin R) Insulin Human Regular 100 units/ml vial SC SCH ×4 (08:28→21:42)
[2017-10-09] MEDS: (Novolog) Insulin Aspart, Recombinant 100 u/ml 10 ml vial SC SCH ×5 (08:29→21:42)
[2017-10-09] MEDS ORDERED: Potassium Chloride 20 mEq/15 ml LIQ UD PO ONE (08:30)
[2017-10-09] MEDS: Sodium Chloride 0.9% 1,000 ML IV SCH ×2 (08:31→16:35)
--- NOTE | 2017-10-09 09:59 | CP.PCM.PN ---
Subjective - Date & Time of Evaluation Date of Evaluation: 10/09/17 Time of Evaluation: 09:57 - Subjective Subjective: still very lithargic will say few wors and move purposfully recommended revising shunt daughter aprehensive and wishes to wait longer will get CT in AM and review eeg with neurologist family will decide about revision later today as of now scheduled for tomorrow Objective - Vital Signs/Intake and Output Vital Signs (last 24 hours): Temp Pulse Resp BP Pulse Ox 98.2 F 83 18 131/81 95 10/09/17 08:14 10/09/17 08:14 10/09/17 08:14 10/09/17 08:14 10/09/17 08:14 Intake and Output: 10/09/17 10/09/17 06:59 18:59 Intake Total 60 Output Total 250 Balance -190 - Medications Medications: Current Medications Amlodipine Besylate (Norvasc) 5 mg PO DAILY [facility] Last Admin: 10/08/17 10:01 Dose: 5 mg Bupropion HCl (Wellbutrin Xl) 150 mg PO DAILY [facility] Last Admin: 10/08/17 10:02 Dose: 150 mg Dextrose (Dextrose 50% Inj) 0 ml IV STAT PRN; Protocol PRN Reason: Hypoglycemia Protocol Dextrose (Glutose 15) 0 gm PO ONCE PRN; Protocol PRN Reason: Hypoglycemia Protocol Docusate Sodium (Colace) 100 mg PO DAILY [facility] Last Admin: 10/08/17 10:01 Dose: 100 mg Gabapentin (Neurontin) 100 mg PO TID [facility] Last Admin: 10/08/17 17:38 Dose: 100 mg Glucagon (Glucagen Diagnostic Kit) 0 mg IM STAT PRN; Protocol PRN Reason: Hypoglycemia Protocol Heparin Sodium (Porcine) (Heparin) 5,000 units SC Q8 [facility] Last Admin: 10/09/17 05:50 Dose: 5,000 units Home Med (Patient's Own Medication) 1 tab PO BID [facility] Last Admin: 10/08/17 17:37 Dose: 1 tab Hydrochlorothiazide (Microzide) 12.5 mg PO DAILY [facility] Last Admin: 10/06/17 11:46 Dose: 12.5 mg Sodium Chloride (Sodium Chloride 0.9%) 1,000 mls @ 100 mls/hr IV .Q10H [facility] Last Admin: 10/09/17 08:31 Dose: 100 mls/hr Insulin Aspart (Novolog) 15 unit SC ACHS [facility] Last Admin: 10/09/17 08:29 Dose: 15 unit Insulin Detemir (Levemir) 25 unit SC Q12 [facility] Last Admin: 10/08/17 22:09 Dose: 25 unit Insulin Human Regular (Novolin R) 0 unit SC [facility] PRN Reason: Protocol Last Admin: 10/09/17 08:28 Dose: 6 unit Latanoprost (Xalatan Opht) 0 ml OU HS [facility] Last Admin: 10/08/17 22:06 Dose: 2.5 ml Losartan Potassium (Cozaar) 100 mg PO DAILY [facility] Last Admin: 10/08/17 10:01 Dose: 100 mg Pantoprazole Sodium (Protonix Ec Tab) 40 mg PO DAILY [facility] Last Admin: 10/08/17 10:01 Dose: 40 mg Rosuvastatin Calcium (Crestor) 20 mg PO HS [facility] Last Admin: 10/08/17 22:10 Dose: Not Given Valproate Sodium (Depakene Cap) 500 mg PO BID [facility] Last Admin: 10/08/17 17:38 Dose: 500 mg - Labs Labs: 10/09/17 07:47 10/09/17 07:47 PT 11.5 SECONDS (9.7-12.2) 10/03/17 10:30 INR 1.1 10/03/17 10:30 APTT 26 SECONDS (21-34) 10/03/17 10:30
[2017-10-09] MEDS: buPROPion 150 mg/24 Hours XL Tab PO SCH (10:03)
[2017-10-09] MEDS: Pantoprazole 40 mg EC Tab PO SCH (10:04)
[2017-10-09] MEDS: Insulin Detemir 100 units/ml Vial (Levemir) SC SCH ×2 (10:05→21:41)
[2017-10-09] MEDS: VASCEPA 1GM PO SCH ×2 (10:06→17:24)
[2017-10-09 12:28] LABS: PROTHROMBIN TIME 10.9 SECONDS (9.7-12.2)
[2017-10-09] MEDS: Latanoprost 2.5 ml Opht Soln OU SCH (21:30)
[2017-10-10 06:40] LABS: BASO # 0.1 K/uL (0.0-0.2); BASO % 0.6 % (0.0-2.0); EOS % 0.5 % (0.0-4.0); LYMPH # 1.2 K/uL (1.0-4.3); LYMPH % 13.6 % (20.0-40.0); MEAN CELL VOLUME 85.5 fL (81.0-99.0); MEAN CORPUSCULAR HEMOGLOBIN 29.8 pg (27.0-31.0); MEAN CORPUSCULAR HGB CONC 34.8 g/dL (33.0-37.0); MEAN PLATELET VOLUME 8.6 fL (7.2-11.7); MONO # 0.4 K/uL (0.0-0.8); MONO % 4.9 % (0.0-10.0); NEUT # 7.1 K/uL (1.8-7.0); NEUT % 80.4 % (50.0-75.0); RBC 4.38 Mil/uL (3.80-5.20); RED CELL DISTRIBUTION WIDTH 14.8 % (11.5-14.5); WHITE BLOOD COUNT 8.8 K/uL (4.8-10.8)
[2017-10-10 06:55] LABS: ALB/GLOB RATIO 1.2 (1.0-2.1); ALBUMIN 3.3 g/dL (3.5-5.0); CALCIUM 8.5 mg/dl (8.6-10.4)
[2017-10-10] MEDS: (Novolin R) Insulin Human Regular 100 units/ml vial SC SCH ×4 (08:06→21:16)
[2017-10-10] MEDS: (Novolog) Insulin Aspart, Recombinant 100 u/ml 10 ml vial SC SCH ×3 (08:06→18:37)
--- NOTE | 2017-10-10 09:09 | CP.PCM.PN ---
<Nikko Hart - Last Filed: 10/10/17 11:35> Subjective - Date & Time of Evaluation Date of Evaluation: 10/10/17 Time of Evaluation: 09:06 - Subjective Subjective: PGY1 Medicine Note for Dr. Parsons Patient seen and examined at bedside this morning. No acute events overnight. Patient is scheduled for a repeat head CT. If no changes, patient will go to the OR for a revision of her ELECTRICAL INSTRUMENT MAKER shunt. Patient is arousable to pain only. Per daughter, she has not woken up since yesterday when she asked for a drink and quickly went back to sleep. ROS unattainable. Objective - Vital Signs/Intake and Output Vital Signs (last 24 hours): Temp Pulse Resp BP Pulse Ox 98.4 F 92 H 20 149/84 95 10/10/17 07:25 10/10/17 07:25 10/10/17 07:25 10/10/17 07:25 10/10/17 07:25 Intake and Output: 10/10/17 10/10/17 06:59 18:59 Intake Total 760 Output Total 800 Balance -40 - Medications Medications: Current Medications Amlodipine Besylate (Norvasc) 5 mg PO DAILY [facility] Last Admin: 10/09/17 10:03 Dose: 5 mg Bupropion HCl (Wellbutrin Xl) 150 mg PO DAILY [facility] Last Admin: 10/09/17 10:03 Dose: 150 mg Dextrose (Dextrose 50% Inj) 0 ml IV STAT PRN; Protocol PRN Reason: Hypoglycemia Protocol Dextrose (Glutose 15) 0 gm PO ONCE PRN; Protocol PRN Reason: Hypoglycemia Protocol Docusate Sodium (Colace) 100 mg PO DAILY [facility] Last Admin: 10/09/17 10:04 Dose: 100 mg Gabapentin (Neurontin) 100 mg PO TID [facility] Last Admin: 10/09/17 17:24 Dose: 100 mg Glucagon (Glucagen Diagnostic Kit) 0 mg IM STAT PRN; Protocol PRN Reason: Hypoglycemia Protocol Home Med (Patient's Own Medication) 1 tab PO BID [facility] Last Admin: 10/09/17 17:24 Dose: 1 tab Hydrochlorothiazide (Microzide) 12.5 mg PO DAILY [facility] Last Admin: 10/06/17 11:46 Dose: 12.5 mg Sodium Chloride (Sodium Chloride 0.9%) 1,000 mls @ 100 mls/hr IV .Q10H [facility] Last Admin: 10/09/17 16:35 Dose: 100 mls/hr Insulin Aspart (Novolog) 15 unit SC [facility] Last Admin: 10/10/17 08:06 Dose: Not Given Insulin Detemir (Levemir) 25 unit SC Q12 [facility] Last Admin: 10/09/17 21:41 Dose: Not Given Insulin Human Regular (Novolin R) 0 unit SC [facility] PRN Reason: Protocol Last Admin: 10/10/17 08:06 Dose: Not Given Latanoprost (Xalatan Opht) 0 ml OU HS [facility] Last Admin: 10/09/17 21:30 Dose: 2.5 ml Losartan Potassium (Cozaar) 100 mg PO DAILY [facility] Last Admin: 10/09/17 10:04 Dose: 100 mg Pantoprazole Sodium (Protonix Ec Tab) 40 mg PO DAILY [facility] Last Admin: 10/09/17 10:04 Dose: 40 mg Rosuvastatin Calcium (Crestor) 20 mg PO HS [facility] Last Admin: 10/09/17 21:32 Dose: 20 mg Valproate Sodium (Depakene Cap) 500 mg PO BID [facility] Last Admin: 10/09/17 17:23 Dose: 500 mg - Labs Labs: 10/10/17 06:24 10/10/17 06:24 PT 10.9 SECONDS (9.7-12.2) 10/09/17 11:37 INR 1.0 10/09/17 11:37 APTT 26 SECONDS (21-34) 10/03/17 10:30 - Constitutional Appears: Non-toxic, No Acute Distress, Other (obese) - Head Exam Head Exam: ATRAUMATIC, NORMOCEPHALIC - Eye Exam Eye Exam: Normal appearance Additional comments: Fighting to keep eyes closed - ENT Exam ENT Exam: Mucous Membranes Moist - Respiratory Exam Respiratory Exam: Clear to Ausculation Bilateral, NORMAL BREATHING PATTERN. absent: Accessory Muscle Use, Rales, Rhonchi, Wheezes, Respiratory Distress - Cardiovascular Exam Cardiovascular Exam: REGULAR RHYTHM, +S1, +S2 - GI/Abdominal Exam GI & Abdominal Exam: Distended, Soft, Normal Bowel Sounds. absent: Firm, Guarding, Rigid, Tenderness - Neurological Exam Neurological Exam: absent: Awake (sleeping) Additional comments: patient is sleeping. responds purposely to pain. 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 Nothing to do at this time inpatient. (family was informed of these instructions) CT Head (10/03): shunt in place ventricles has enlarged compared to prior study, chronic microvascular changes, old lacunar infarcts, Shuntogram (10/03): ventricular catheter entering from a right sided approach, visualized extracranial tubing intact CT head (10/06): shows slight improvement of ventricles and ELECT[employer]UMENT [employer]ER shunt malfunction. CT head (10/08):Ventricles remain markedly dilated questionably increased slightly in size when compared with prior study 10/06/2017. Findings are consistent with shunt malfunction. There are confluent low-attenuation changes seen in the periventricular white matter most conspicuous in the periatrial/ perioccipital horn regions. . Underlying chronic periventricular white matter ischemic changes may contribute. EEG (10/09): awaiting official report CT head (10/10): Stent malfunction pattern of persistent ventriculomegaly again identified with right frontal shunt unchanged in position. Limited underlying age-related neuro degenerative changes reiterated. No intracranial hemorrhage or worsening of hydrocephalus appreciated at this time. Family updated about the results of today's CT scan and of Dr. Hancock's plan to take patient for surgery. Per Dr. Hancock, the CT has worsened and he would like to take the patient down for a revision of the ELECTRICAL INSTRUMENT MAKER shunt later today. The patient's son and daughter are at bedside and agree to have the procedure. Patient is scheduled for ELECT[employer]ICAL INSTRUMENT [employer]KER shunt revision later this morning with Dr. Hancock. Altered Mental Status likely secondary to NPH Blood cultures negative at 5 days Urine culture negative Patient is afebrile, no white count Chest X ray - negative Troponin negative Ammonia 11 10/07:as per family; patient is ambulatory and speaks in full coherent sentences and ANOx3 at baseline; currently ANOx2; speaking more clearly, opening eyes. Improving but not at baseline 10/08: patient is drowsy and not as alert as yesterday; will answer to name and pain, but is otherwise obtunded 10/09: patient is lethargic, responding to pain and some verbal stimuli. Will speak few words. 10/10: patient refusing to wake up. only responding to pain. Elevated Creatinine Cr stayed at 1.4 (baseline on 10/03 was 0.7) Continue NS@100mL/hr Continue to monitor DM 2 Uncontrolled diabetes Accuchecks QAC and HS Medium Dose insulin sliding scale Will hold home metformin while in the hospital Will continue to monitor and titrate as appropriate HLD Continue statin Asthma Duonebs prn Controlled Not wheezing Hypertension, controlled Norvasc 5mg PO daily Hyperkalemia K 3.2 repleted continue to monitor Prophylactic measure Protonix 40mg PO daily SCDs Diet: switched to pureed diet. only feed if patient is awake and alert, otherwise NPO. Case discussed with Dr. Jaqueline Hart PGY1 <Jessica Parsons - Last Filed: 10/10/17 16:33> Objective - Vital Signs/Intake and Output Vital Signs (last 24 hours): Temp Pulse Resp BP Pulse Ox 98.7 F 74 20 138/78 97 10/10/17 15:40 10/10/17 15:40 10/10/17 15:40 10/10/17 15:40 10/10/17 15:40 Intake and Output: 10/10/17 10/10/17 06:59 18:59 Intake Total 760 1053.2 Output Total 800 Balance -40 1053.2 - Medications Medications: Current Medications Amlodipine Besylate (Norvasc) 5 mg PO DAILY [facility] Last Admin: 10/10/17 11:00 Dose: Not Given Bupropion HCl (Wellbutrin Xl) 150 mg PO DAILY [facility] Last Admin: 10/10/17 11:00 Dose: Not Given Dextrose (Dextrose 50% Inj) 0 ml IV STAT PRN; Protocol PRN Reason: Hypoglycemia Protocol Dextrose (Glutose 15) 0 gm PO ONCE PRN; Protocol PRN Reason: Hypoglycemia Protocol Docusate Sodium (Colace) 100 mg PO DAILY [facility] Last Admin: 10/10/17 11:00 Dose: Not Given Gabapentin (Neurontin) 100 mg PO TID [facility] Last Admin: 10/10/17 14:00 Dose: Not Given Glucagon (Glucagen Diagnostic Kit) 0 mg IM STAT PRN; Protocol PRN Reason: Hypoglycemia Protocol Home Med (Patient's Own Medication) 1 tab PO BID [facility] Last Admin: 10/10/17 11:00 Dose: Not Given Hydrochlorothiazide (Microzide) 12.5 mg PO DAILY [facility] Last Admin: 10/06/17 11:46 Dose: 12.5 mg Sodium Chloride (Sodium Chloride 0.9%) 1,000 mls @ 100 mls/hr IV .Q10H [facility] Last Admin: 10/10/17 14:30 Dose: Not Given Insulin Aspart (Novolog) 15 unit SC AC [facility] Last Admin: 10/10/17 12:30 Dose: Not Given Insulin Detemir (Levemir) 25 unit SC Q12 [facility] Last Admin: 10/10/17 11:00 Dose: Not Given Insulin Human Regular (Novolin R) 0 unit SC ACHS [facility] PRN Reason: Protocol Last Admin: 10/10/17 12:30 Dose: Not Given Latanoprost (Xalatan Opht) 0 ml OU HS [facility] Last Admin: 10/09/17 21:30 Dose: 2.5 ml Losartan Potassium (Cozaar) 100 mg PO DAILY [facility] Last Admin: 10/10/17 11:00 Dose: Not Given Pantoprazole Sodium (Protonix Ec Tab) 40 mg PO DAILY [facility] Last Admin: 10/10/17 11:00 Dose: Not Given Rosuvastatin Calcium (Crestor) 20 mg PO HS [facility] Last Admin: 10/09/17 21:32 Dose: 20 mg Valproate Sodium (Depakene Cap) 500 mg PO BID [facility] Last Admin: 10/10/17 11:00 Dose: Not Given - Labs Labs: 10/10/17 06:24 10/10/17 06:24 PT 10.9 SECONDS (9.7-12.2) 10/09/17 11:37 INR 1.0 10/09/17 11:37 APTT 26 SECONDS (21-34) 10/03/17 10:30 Attending/Attestation - Attestation I have personally seen and examined this patient.: Yes I have fully participated in the care of the patient.: Yes I have reviewed all pertinent clinical information, including history, physical exam and plan: Yes Notes (Text): Seen and examined this morning.Lying comfortable,lethargic. poorly responsive,d/ w daughter at bedside,s/p Ct head worsening hydrocephalus. Going for surgery 1.ELECTRICAL INSTRUMENT MAKER shunt malfunction 2.Increasing hydrocephalus and AMS 3.Hypokalemia with elevated creatinine continue fluids and follow electrolytes 4.DM 5.Asthma 6.HTN plan discussed with the resident I agree with the documentation of the assessment and the plan
[2017-10-10] MEDS ORDERED: Gentamicin Sulfate 10 MG in Sodium Chloride 0.9% 1 ML IN ONE (10:15)
--- NOTE | 2017-10-10 10:38 | CT ---
PROCEDURE: CT HEAD WITHOUT CONTRAST. HISTORY: follow up COMPARISON: Unenhanced head CT 10/08/2017. TECHNIQUE: Axial computed tomography images were obtained through the head/brain without intravenous contrast. Radiation dose: Total exam DLP = 1079.96 mGy-cm. This CT exam was performed using one or more of the following dose reduction techniques: Automated exposure control, adjustment of the mA and/or kV according to patient size, and/or use of iterative reconstruction technique. FINDINGS: HEMORRHAGE: No intracranial hemorrhage. BRAIN: Prior right frontal shunt is unchanged in position entering from right sarina hole terminating near the foramen of Monro once again. Ventriculomegaly is unchanged overall along the bilateral lateral ventricles and 3rd ventricle more so than the 4th ventricle. Pattern of transependymal edema likely confirmation with chronic microangiopathy persist in the periventricular white matter once again. Pattern remains likely reflecting shunt malfunction. Posterior fossa contents including the brainstem appear unremarkable there is no suspicious extra-axial fluid collection identified. Mild diffuse cerebral atrophy is again evident. CALVARIUM: Right frontal sarina hole. PARANASAL SINUSES: Unremarkable as visualized. No significant inflammatory changes. MASTOID AIR CELLS: Unremarkable as visualized. No inflammatory changes. OTHER FINDINGS: None. IMPRESSION: Stent malfunction pattern of persistent ventriculomegaly again identified with right frontal shunt unchanged in position. Limited underlying age-related neuro degenerative changes reiterated. No intracranial hemorrhage or worsening of hydrocephalus appreciated at this time.
[2017-10-10] MEDS ORDERED: Bacitracin Ointment 30 GM TUBE ONE (10:41)
[2017-10-10] MEDS ORDERED: cefTRIAXone IV 1 gm in Dextros 50 ML IVPB ONE (10:41)
[2017-10-10] MEDS ORDERED: Absorbable Gelatin Sponge Size 100 ONE (10:41)
[2017-10-10] MEDS ORDERED: Vancomycin 1 gm/D5W 200 ml 0 GM/0 ML BAG IVPB ONE (10:42)
[2017-10-10] MEDS ORDERED: Vancomycin 1 g Inj ONE (10:44)
[2017-10-10] MEDS ORDERED: Lidocaine/Epinephrine 1% 1:100000 10 ML IJ ONE (10:45)
[2017-10-10] MEDS: Pantoprazole 40 mg EC Tab PO SCH (11:00)
[2017-10-10] MEDS ORDERED: Vancomycin 10 MG in Sodium Chloride 0.9% 1 ML IN ONE (11:00)
[2017-10-10] MEDS: VASCEPA 1GM PO SCH ×2 (11:00→18:46)
[2017-10-10] MEDS: buPROPion 150 mg/24 Hours XL Tab PO SCH (11:00)
[2017-10-10] MEDS: Insulin Detemir 100 units/ml Vial (Levemir) SC SCH ×2 (11:00→21:31)
[2017-10-10] MEDS ORDERED: Propofol 10 mg/ml Inj (20 ML) ONE (11:26)
[2017-10-10] MEDS ORDERED: Thrombin Topical 5,000 Int Units Spray Kit ONE (11:26)
[2017-10-10] MEDS ORDERED: Rocuronium 10 mg/ml (5 ml) ONE ×2 (11:33→12:10)
[2017-10-10] MEDS ORDERED: Bacitracin 50,000 UNIT in Sodium Chloride 0.9% Irrig 1,000 ML IR SCH (11:35)
[2017-10-10] MEDS ORDERED: ePHEDrine 50 mg/ml Inj ONE (12:10)
[2017-10-10] MEDS ORDERED: Neostigmine Methylsulfate 3mg/3ml Syringe IV ONE (12:45)
[2017-10-10] MEDS ORDERED: Labetalol 25mg/5ml Syringe ONE ×2 (12:59→13:14)
[2017-10-10] MEDS ORDERED: HYDROmorphone 0.5 mg/0.5 ml ISec IVP PRN (13:24)
[2017-10-10] MEDS: Sodium Chloride 0.9% 1,000 ML IV SCH (14:30)
[2017-10-10 14:34] LABS: FLUID TYPE SPINAL FLUID
[2017-10-10] MEDS ORDERED: Lactated Ringer's 1,000 ML IV ONE (15:00)
[2017-10-10 15:05] LABS: GLUCOSE,CSF 128 mg/dL (40-70)
[2017-10-10 15:30] LABS: CSF APPEARANCE CLEAR/COLORLESS (CLEAR); CSF VOLUME 3 mL (0-1)
[2017-10-10] MEDS: Latanoprost 2.5 ml Opht Soln OU SCH (21:31)
[2017-10-11] MEDS: Sodium Chloride 0.9% 1,000 ML IV SCH (00:45)
--- NOTE | 2017-10-11 07:12 | OP ---
PROCEDURE DATE: 10/10/2017 PREOPERATIVE DIAGNOSIS: Ventriculoperitoneal shunt malfunction. POSTOPERATIVE DIAGNOSIS: Ventriculoperitoneal shunt malfunction. PROCEDURE: Revision of ventriculoperitoneal shunt, specifically change of peritoneal catheter. SURGEON: Dr. Fer Hancock. CO-SURGEON: Padmaja Monroe MD TYPE OF ANESTHESIA: General endotracheal. ESTIMATED BLOOD LOSS: 10 mL. COMPLICATIONS: None. JUSTIFICATION: The patient has an indwelling SIPHONER shunt. She had a change CT documented, enlargement of the ventricle. Because she had just been seen in my office, then I have raised the pressure setting on her valve because of over drainage, we attempted to treat this conservatively by dialing down her pressure settings over the past few days, but this was unsuccessful. It was also recommended to the family that she undergo exploration and probable revision of the shunt, the nature of this procedure, and the rationale behind it, potential risks and complications were discussed with them at length. All their questions were answered. They fully understood and agreed to proceed. DESCRIPTION OF PROCEDURE: The patient was taken to the operating room. She was intubated, anesthetized and placed on the OR table in a supine position. Head placed on a donut, turned maximally to the left. A roll was placed underneath the right shoulder. The area around her right frontal shunt was hair clipped. This area, the entire right neck, chest and the abdomen was scrubbed with acetone and scrub painted and draped with chlorhexidine in usual sterile manner. After prepping and draping, the old incision of right frontal area was opened with a 15 blade knife directly over the valve assembly. I dissected out the valve and disconnected the ventricular catheter which initially delivered clear CSF under high pressure. A small amount was collected for specimen and sent to the lab, and this was then clamped with a rubber catheter. I then disconnected the valve and tested the peritoneal ends. This was, in fact completely blocked. The manometer would not drop and fall. peritoneal malfunction. I did a manometer test on the valve and it flowed through quite nicely. At this point, I reconnected the valve to the ventricular catheter, stitched in place with a silk tie. was pouring out of the proximal end. Just prior to doing this, I injected 10 mg of vancomycin and 10 mg of gentamicin directly into ventricular system and then into the valve. At this point, Dr. Monroe opened up the old abdominal incision down the peritoneal catheter. We then tied the new peritoneal catheter to the old one and Dr. Monroe pulled it through into the abdomen. We then flushed this through. I connected the proximal end of the peritoneal catheter to the distal end of the valve and switched that in place with a silk tie. I then put the valve assembly in the final resting position, pumped the valve several times while viewing the distal end of the peritoneal catheter in the abdomen and CSF flowed out very nicely. At this point, Dr. Monroe then buried a new ventricular catheter, a new catheter into the peritoneum, the old catheter was then removed and she closed the abdomen. I then irrigated the entire cranial wound with antibiotic solution. I used several Vicryl stitches to stitch the valve, assembling into the periosteum to ensure that it would move. The galea was then closed using interrupted inverted 3-0 Vicryl. The skin closed with clayton. Bacitracin ointment and self-adhering dressing were then placed to both wounds. The patient was aroused from anesthesia and extubated easily. She was brought to the recovery room moving all extremity in a satisfactory manner. All counts were correct. There were no complications. Fer Hancock MD
[2017-10-11 07:13] LABS: BASO # 0.1 K/uL (0.0-0.2); BASO % 0.6 % (0.0-2.0); EOS # 0.1 K/uL (0.0-0.7); EOS % 1.5 % (0.0-4.0); HEMOGLOBIN 12.7 g/dL (11.0-16.0); LYMPH # 1.8 K/uL (1.0-4.3); LYMPH % 20.7 % (20.0-40.0); MEAN CELL VOLUME 85.2 fL (81.0-99.0); MEAN CORPUSCULAR HEMOGLOBIN 29.4 pg (27.0-31.0); MEAN CORPUSCULAR HGB CONC 34.6 g/dL (33.0-37.0); MEAN PLATELET VOLUME 8.5 fL (7.2-11.7); MONO # 0.6 K/uL (0.0-0.8); MONO % 6.7 % (0.0-10.0); NEUT # 6.1 K/uL (1.8-7.0); NEUT % 70.5 % (50.0-75.0); NRBC % 0.1 % (0.0-2.0); RBC 4.31 Mil/uL (3.80-5.20); RED CELL DISTRIBUTION WIDTH 15.2 % (11.5-14.5); WHITE BLOOD COUNT 8.7 K/uL (4.8-10.8)
--- NOTE | 2017-10-11 07:27 | CP.PCM.PN ---
Subjective - Date & Time of Evaluation Date of Evaluation: 10/11/17 Time of Evaluation: 07:27 - Subjective Subjective: Ms. Diaz was seen and examined at the bedside. She is lethargic, unable to verbalize any words with pupils are unequal with left eye 3 mm and right eye 4 mm very sluggish, with right periorbital swelling ( patient is lying in her right side), withdraws to pain,GCS 4. 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 Her abdomen is also distended,.There was no untoward events overnight. Objective - Vital Signs/Intake and Output Vital Signs (last 24 hours): Temp Pulse Resp BP Pulse Ox 97.3 F L 77 20 109/72 95 10/10/17 23:25 10/10/17 23:30 10/10/17 23:25 10/10/17 23:25 10/10/17 23:25 Intake and Output: 10/11/17 10/11/17 06:59 18:59 Intake Total 700 Output Total 325 Balance 375 - Medications Medications: Current Medications Amlodipine Besylate (Norvasc) 5 mg PO DAILY [facility] Last Admin: 10/10/17 11:00 Dose: Not Given Bupropion HCl (Wellbutrin Xl) 150 mg PO DAILY [facility] Last Admin: 10/10/17 11:00 Dose: Not Given Dextrose (Dextrose 50% Inj) 0 ml IV STAT PRN; Protocol PRN Reason: Hypoglycemia Protocol Dextrose (Glutose 15) 0 gm PO ONCE PRN; Protocol PRN Reason: Hypoglycemia Protocol Docusate Sodium (Colace) 100 mg PO DAILY [facility] Last Admin: 10/10/17 11:00 Dose: Not Given Gabapentin (Neurontin) 100 mg PO TID [facility] Last Admin: 10/10/17 18:46 Dose: 100 mg Glucagon (Glucagen Diagnostic Kit) 0 mg IM STAT PRN; Protocol PRN Reason: Hypoglycemia Protocol Home Med (Patient's Own Medication) 1 tab PO BID [facility] Last Admin: 10/10/17 18:46 Dose: 1 tab Hydrochlorothiazide (Microzide) 12.5 mg PO DAILY [facility] Last Admin: 10/06/17 11:46 Dose: 12.5 mg Sodium Chloride (Sodium Chloride 0.9%) 1,000 mls @ 100 mls/hr IV .Q10H [facility] Last Admin: 10/11/17 00:45 Dose: Not Given Insulin Aspart (Novolog) 15 unit SC AC [facility] Last Admin: 10/10/17 18:37 Dose: Not Given Insulin Detemir (Levemir) 25 unit SC Q12 [facility] Last Admin: 10/10/17 21:31 Dose: 25 unit Insulin Human Regular (Novolin R) 0 unit SC ACHS [facility] PRN Reason: Protocol Last Admin: 10/10/17 21:16 Dose: Not Given Latanoprost (Xalatan Opht) 0 ml OU HS [facility] Last Admin: 10/10/17 21:31 Dose: 2.5 ml Losartan Potassium (Cozaar) 100 mg PO DAILY [facility] Last Admin: 10/10/17 11:00 Dose: Not Given Pantoprazole Sodium (Protonix Ec Tab) 40 mg PO DAILY [facility] Last Admin: 10/10/17 11:00 Dose: Not Given Rosuvastatin Calcium (Crestor) 20 mg PO HS [facility] Last Admin: 10/10/17 21:31 Dose: 20 mg Valproate Sodium (Depakene Cap) 500 mg PO BID [facility] Last Admin: 10/10/17 18:43 Dose: 500 mg - Labs Labs: 10/11/17 07:00 10/10/17 06:24 PT 10.9 SECONDS (9.7-12.2) 10/09/17 11:37 INR 1.0 10/09/17 11:37 APTT 26 SECONDS (21-34) 10/03/17 10:30 - Constitutional Appears: No Acute Distress - Head Exam Additional comments: with dressing noted in her right parietal area - Eye Exam Pupil Exam: Unequal Additional comments: right eye- 4 mm sluggish and left eye 3 mm sluggish - Neurological Exam Neuro motor strength exam: Left Upper Extremity: 2/1, Right Upper Extremity: 0, Left Lower Extremity: 0, Right Lower Extremity: 0 Additional comments: GCS- 4 Assessment and Plan (1) Mental status change Assessment & Plan: Case discussed with Dr. Mota, recommend stat CT of the head and abdomen without contrast, ICU monitoring, frequent neuro check. maintain head of bed elevated at least 30 degrees , blood pressure , and glycemic control. Please refer to neurosurgery regarding results and any further decline of mental status. Status: Acute
[2017-10-11] MEDS: (Novolin R) Insulin Human Regular 100 units/ml vial SC SCH ×3 (07:30→17:38)
[2017-10-11] MEDS: (Novolog) Insulin Aspart, Recombinant 100 u/ml 10 ml vial SC SCH ×2 (07:30→13:49)
[2017-10-11 07:31] LABS: ALB/GLOB RATIO 1.2 (1.0-2.1); ALBUMIN 3.3 g/dL (3.5-5.0); ALT/SGPT 30 U/L (9-52); AST/SGOT 54 U/L (14-36); BLOOD UREA NITROGEN 33 mg/dL (7-17); CALCIUM 8.5 mg/dl (8.6-10.4); GFR AFRICAN-AMERICAN > 60; GFR NON-AFRICAN AMERICAN 55
[2017-10-11] MEDS ORDERED: Propofol 10 mg/ml Inj (20 ML) ONE (08:34)
[2017-10-11] MEDS ORDERED: Absorbable Gelatin Sponge Size 100 ONE (08:39)
[2017-10-11] MEDS ORDERED: Bacitracin Ointment 30 GM TUBE ONE (08:40)
[2017-10-11] MEDS ORDERED: Lidocaine/Epinephrine 1% 1:100000 10 ML IJ ONE (08:40)
[2017-10-11] MEDS ORDERED: Thrombin Topical 5,000 Int Units Spray Kit ONE (08:40)
--- NOTE | 2017-10-11 08:40 | CT ---
PROCEDURE: CT HEAD WITHOUT CONTRAST. HISTORY: change of mental status COMPARISON: CT head dated 10/10/17. TECHNIQUE: Axial computed tomography images were obtained through the head/brain without intravenous contrast. Radiation dose: Total exam DLP = 1426.9 mGy-cm. This CT exam was performed using one or more of the following dose reduction techniques: Automated exposure control, adjustment of the mA and/or kV according to patient size, and/or use of iterative reconstruction technique. FINDINGS: HEMORRHAGE: No intracranial hemorrhage. BRAIN: No mass effect or edema. Mild atrophy. Chronic microvascular ischemic changes. Periventricular transependymal edema. VENTRICLES: Stable hydrocephalus with right frontal ventriculostomy catheter unchanged in position. CALVARIUM: Right frontal sarina hole. PARANASAL SINUSES: Unremarkable as visualized. No significant inflammatory changes. MASTOID AIR CELLS: Unremarkable as visualized. No inflammatory changes. OTHER FINDINGS: None. IMPRESSION: Stable hydrocephalus with right frontal ventriculostomy catheter unchanged in position. No significant interval change.
[2017-10-11] MEDS ORDERED: Bacitracin 50,000 UNIT in Sodium Chloride 0.9% Irrig 1,000 ML IR SCH (09:00)
[2017-10-11] MEDS ORDERED: Vancomycin 10 MG in Sodium Chloride 0.9% 1 ML IN ONE (09:00)
[2017-10-11] MEDS ORDERED: Gentamicin Sulfate 10 MG in Sodium Chloride 0.9% 1 ML IN ONE (09:00)
[2017-10-11] MEDS: Insulin Detemir 100 units/ml Vial (Levemir) SC SCH (09:03)
[2017-10-11] MEDS: VASCEPA 1GM PO SCH (09:05)
[2017-10-11] MEDS: buPROPion 150 mg/24 Hours XL Tab PO SCH (09:06)
[2017-10-11] MEDS ORDERED: cefTRIAXone IV 1 gm in Dextros 100 ML IVPB ONE (09:17)
[2017-10-11] MEDS ORDERED: Rocuronium 10 mg/ml (5 ml) ONE (09:20)
--- NOTE | 2017-10-11 09:58 | CT ---
PROCEDURE: CT Chest, Abdomen and Pelvis without intravenous contrast HISTORY: abdominal distention COMPARISON: CT scan of the abdomen pelvis dated 03/02/2017. TECHNIQUE: Radiation dose: Total exam DLP = 1928.1 mGy-cm. This CT exam was performed using one or more of the following dose reduction techniques: Automated exposure control, adjustment of the mA and/or kV according to patient size, and/or use of iterative reconstruction technique. FINDINGS: CT CHEST WITHOUT CONTRAST: LUNGS: Bibasilar atelectasis/scarring. No nodule, mass or consolidation. Left upper and lower lobe calcified granulomas. MEDIASTINUM: Unremarkable. Normal caliber aorta and pulmonary arterial trunk. Normal size heart. Coronary arterial and valvular calcifications. LYMPH NODES: Unremarkable. PLEURA: Unremarkable. No pneumothorax. No pleural fluid. BONES: Unremarkable. OTHER FINDINGS: Sub centimeter left thyroid nodule. CT ABDOMEN AND PELVIS: LIVER: Unremarkable. No gross lesion or ductal dilatation. GALLBLADDER AND BILE DUCTS: Unremarkable. PANCREAS: Unremarkable. No gross lesion or ductal dilatation. SPLEEN: Unremarkable. ADRENALS: Unremarkable. No mass. KIDNEYS AND URETERS: Unremarkable. No hydronephrosis. No solid mass. VASCULATURE: Calcific atherosclerosis. No aortic aneurysm. BOWEL: Colonic distention with gas and fluid. Collapsed small bowel. No obstruction. No gross mural thickening. APPENDIX: Not visualized, but no secondary signs to suggest acute appendicitis. PERITONEUM: Unremarkable. No free fluid. No free air. LYMPH NODES: Unremarkable. No enlarged lymph nodes. BLADDER: Unremarkable. REPRODUCTIVE: Unremarkable. BONES: No acute fracture. OTHER FINDINGS: Two partially imaged shunt catheters coursing through the anterior thoracoabdominal wall with 1 catheter terminating in the right lower quadrant and the other in the gastrohepatic ligament. Recent abdominal wall surgery with postsurgical changes in the anterior abdominal wall with superficial skin clayton. IMPRESSION: Reason abdominal wall surgery with postsurgical changes in the anterior abdominal wall and superficial skin clayton. Two partially imaged shunt catheters as described above. Colonic distention with gas and fluid may represent postoperative ileus versus acute colonic ileus. Clinical correlation is recommended. Sub centimeter left thyroid nodule. Dedicated thyroid ultrasound can be obtained for further evaluation as clinically warranted.
[2017-10-11] MEDS ORDERED: Lactated Ringer's 1,000 ML IV SCH (10:15)
--- NOTE | 2017-10-11 10:42 | RAD ---
HISTORY: intubated post-op COMPARISON: Chest radiograph dated 10/08/2017. FINDINGS: LUNGS: No active pulmonary disease. PLEURA: No significant pleural effusion identified, no pneumothorax apparent. CARDIOVASCULAR: Atherosclerotic aortic calcifications. Cardiomediastinal silhouette stably enlarged. OSSEOUS STRUCTURES: Unchanged. VISUALIZED UPPER ABDOMEN: Right upper quadrant surgical clips redemonstrated. OTHER FINDINGS: New endotracheal tube with tip between the clavicular heads. To right-sided partially imaged shunt catheters redemonstrated. IMPRESSION: New endotracheal tube with tip between the clavicular heads. No other significant interval change
[2017-10-11 10:53] LABS: ARTERIAL BLOOD GAS HCO3 21.6 mmol/L (21-28); ARTERIAL BLOOD GAS HEMOGLOBIN 13.9 g/dL (11.7-17.4); ARTERIAL BLOOD GAS PCO2 38 mm/Hg (35-45); ARTERIAL BLOOD GAS PH 7.35 (7.35-7.45); ARTERIAL BLOOD GAS PO2 81 mm/Hg (80-100); ARTERIAL BLOOD GAS TCO2 22.2 mmol/L (22-28)
[2017-10-11] MEDS ORDERED: Metoprolol 1 mg/ml Inj IVP ONE ×3 (11:33→11:39)
[2017-10-11] MEDS ORDERED: Vancomycin 1 gm/NS 200 ml 1 GM/200 ML BAG IVPB SCH (12:00)
[2017-10-11] MEDS: Meropenem IV 1 gm in NS 50 ML IVPB SCH ×2 (12:30→20:14)
[2017-10-11] MEDS: Vancomycin 1 gm/NS 200 ml 1 GM/200 ML BAG IVPB SCH (12:39)
--- NOTE | 2017-10-11 13:06 | CP.PCM.PN ---
<Nikko Hart - Last Filed: 10/11/17 13:03> Subjective - Date & Time of Evaluation Date of Evaluation: 10/11/17 Time of Evaluation: 07:30 - Subjective Subjective: PGY1 Medicine Note for Dr. Parsons Patient seen and examined this morning at bedside. Patient had revision of INTAKE RN shunt yesterday and just returned from CT. She is still lethargic and not responding to verbal stimuli. She responds only to painful stimuli, ROS unattainable. Objective - Vital Signs/Intake and Output Vital Signs (last 24 hours): Temp Pulse Resp BP Pulse Ox 993 F H 98 H 13 164/81 H 100 10/11/17 11:40 10/11/17 11:40 10/11/17 11:40 10/11/17 11:40 10/11/17 11:40 Intake and Output: 10/11/17 10/11/17 06:59 18:59 Intake Total 700 1728.2 Output Total 325 600 Balance 375 1128.2 - Medications Medications: Current Medications Amlodipine Besylate (Norvasc) 5 mg PO DAILY [facility] Last Admin: 10/11/17 09:04 Dose: Not Given Bupropion HCl (Wellbutrin Xl) 150 mg PO DAILY [facility] Last Admin: 10/11/17 09:06 Dose: Not Given Dextrose (Dextrose 50% Inj) 0 ml IV STAT PRN; Protocol PRN Reason: Hypoglycemia Protocol Dextrose (Glutose 15) 0 gm PO ONCE PRN; Protocol PRN Reason: Hypoglycemia Protocol Docusate Sodium (Colace) 100 mg PO DAILY [facility] Last Admin: 10/11/17 09:03 Dose: Not Given Gabapentin (Neurontin) 100 mg PO TID [facility] Last Admin: 10/11/17 09:03 Dose: Not Given Glucagon (Glucagen Diagnostic Kit) 0 mg IM STAT PRN; Protocol PRN Reason: Hypoglycemia Protocol Home Med (Patient's Own Medication) 1 tab PO BID [facility] Last Admin: 10/11/17 09:05 Dose: Not Given Hydrochlorothiazide (Microzide) 12.5 mg PO DAILY [facility] Last Admin: 10/11/17 12:18 Dose: Not Given Lactated Ringer's (Lactated Ringer's) 1,000 mls @ 140 mls/hr IV .Q7H9M [facility] Last Admin: 10/11/17 12:30 Dose: 140 mls/hr Meropenem (Merrem Iv 1 Gm Premix) 50 mls @ 100 mls/hr IVPB Q8H [facility] PRN Reason: Protocol Last Admin: 10/11/17 12:30 Dose: 100 mls/hr Vancomycin/Sodium Chloride (Vancomycin 1 Gm/Ns 200 Ml) 1 gm in 200 mls @ 133.333 mls/hr IVPB Q12H [facility] PRN Reason: Protocol Stop: 10/16/17 13:31 Last Admin: 10/11/17 12:39 Dose: 133.333 mls/hr Insulin Aspart (Novolog) 15 unit SC AC [facility] Last Admin: 10/11/17 07:30 Dose: Not Given Insulin Detemir (Levemir) 25 unit SC Q12 [facility] Last Admin: 10/11/17 09:03 Dose: Not Given Insulin Human Regular (Novolin R) 0 unit SC ACHS [facility] PRN Reason: Protocol Last Admin: 10/11/17 07:30 Dose: Not Given Latanoprost (Xalatan Opht) 0 ml OU HS [facility] Last Admin: 10/10/17 21:31 Dose: 2.5 ml Losartan Potassium (Cozaar) 100 mg PO DAILY [facility] Last Admin: 10/11/17 09:03 Dose: Not Given Pantoprazole Sodium (Protonix Ec Tab) 40 mg PO DAILY [facility] Last Admin: 10/10/17 11:00 Dose: Not Given Rosuvastatin Calcium (Crestor) 20 mg PO HS [facility] Last Admin: 10/10/17 21:31 Dose: 20 mg Valproate Sodium (Depakene Cap) 500 mg PO BID [facility] Last Admin: 10/11/17 09:03 Dose: Not Given - Labs Labs: 10/11/17 07:00 10/11/17 07:00 PT 10.9 SECONDS (9.7-12.2) 10/09/17 11:37 INR 1.0 10/09/17 11:37 APTT 26 SECONDS (21-34) 10/03/17 10:30 - Constitutional Appears: Other (arousable to painful stimuli only.) - Eye Exam Eye Exam: absent: Normal appearance Pupil Exam: absent: NORMAL ACCOMODATION Additional comments: Right pupil fixed and dilated approx 4mm. Left pupil reactive. - ENT Exam ENT Exam: Mucous Membranes Moist - Respiratory Exam Respiratory Exam: Clear to Ausculation Bilateral, NORMAL BREATHING PATTERN. absent: Accessory Muscle Use, Rales, Rhonchi, Wheezes, Respiratory Distress - Cardiovascular Exam Cardiovascular Exam: REGULAR RHYTHM, +S1, +S2 - GI/Abdominal Exam GI & Abdominal Exam: Soft, Normal Bowel Sounds. absent: Distended, Firm, Guarding, Rigid - Extremities Exam Extremities Exam: absent: Calf Tenderness, Pedal Edema - Neurological Exam Neurological Exam: absent: Alert, Awake Additional comments: arousable only to painful stimuli. Movements are more sluggish today compared to yesterday. - Psychiatric Exam Additional comments: unable to assess. patient does not wake up. 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 Nothing to do at this time inpatient. (family was informed of these instructions) CT Head (10/03): shunt in place ventricles has enlarged compared to prior study, chronic microvascular changes, old lacunar infarcts, Shuntogram (10/03): ventricular catheter entering from a right sided approach, visualized extracranial tubing intact CT head (10/06): shows slight improvement of ventricles and INTAKE RN shunt malfunction. CT head (10/08):Ventricles remain markedly dilated questionably increased slightly in size when compared with prior study 10/06/2017. Findings are consistent with shunt malfunction. There are confluent low-attenuation changes seen in the periventricular white matter most conspicuous in the periatrial/ perioccipital horn regions. . Underlying chronic periventricular white matter ischemic changes may contribute. EEG (10/09): awaiting official report CT head (10/10): Stent malfunction pattern of persistent ventriculomegaly again identified with right frontal shunt unchanged in position. Limited underlying age-related neuro degenerative changes reiterated. No intracranial hemorrhage or worsening of hydrocephalus appreciated at this time. Abd/Pelvis CT (10/11): Reason abdominal wall surgery with postsurgical changes in the anterior abdominal wall and superficial skin clayton. Two partially imaged shunt catheters as described above. Colonic distention with gas and fluid may represent postoperative ileus versus acute colonic ileus. Clinical correlation is recommended. Sub centimeter left thyroid nodule. Dedicated thyroid ultrasound can be obtained for further evaluation as clinically warranted. CT head (10/11): Enlarging ventricles per Dr. Hancock. CSF culture: pending Started on Meropenem 1gm IVPB q8h (started on 10/11) Started on Vanco 1gm IVPB q12h (started on 10/11) Per Dr. Hancock, patient needs to go back to OR for emergent INTAKE RN shunt revision. Patient will be transfer to ICU post-op for further evaluation and management. Altered Mental Status likely secondary to NPH Blood cultures negative at 5 days Repeat blood cultures negative at 3 days Urine culture negative Patient is afebrile, no white count Chest X ray - negative Troponin negative Ammonia 11 10/07:as per family; patient is ambulatory and speaks in full coherent sentences and ANOx3 at baseline; currently ANOx2; speaking more clearly, opening eyes. Improving but not at baseline 10/08: patient is drowsy and not as alert as yesterday; will answer to name and pain, but is otherwise obtunded 10/09: patient is lethargic, responding to pain and some verbal stimuli. Will speak few words. 10/10: patient refusing to wake up. only responding to pain. Elevated Creatinine Cr stayed at 1.4 (baseline on 10/03 was 0.7) Continue NS@100mL/hr Continue to monitor DM 2 Uncontrolled diabetes Accuchecks QAC and HS Medium Dose insulin sliding scale Will hold home metformin while in the hospital Will continue to monitor and titrate as appropriate HLD Continue statin Asthma Duonebs prn Controlled Not wheezing Hypertension, controlled Norvasc 5mg PO daily Hyperkalemia K 3.5 patient taken to OR prior to replacement continue to monitor Prophylactic measure Protonix 40mg PO daily SCDs Diet: switched to pureed diet. only feed if patient is awake and alert, otherwise NPO. Case discussed with Dr. Jaqueline Souzan PGY1 <Jessica Parsons - Last Filed: 10/16/17 18:55> Objective - Vital Signs/Intake and Output Vital Signs (last 24 hours): Temp Pulse Resp BP Pulse Ox 993 F H 98 H 13 164/81 H 100 10/11/17 11:40 10/11/17 11:40 10/11/17 11:40 10/11/17 11:40 10/11/17 11:40 Intake and Output: 10/11/17 10/11/17 06:59 18:59 Intake Total 700 1728.2 Output Total 325 600 Balance 375 1128.2 - Medications Medications: Current Medications Bupropion HCl (Wellbutrin Xl) 150 mg PO DAILY [facility] Last Admin: 10/11/17 09:06 Dose: Not Given Dextrose (Dextrose 50% Inj) 0 ml IV STAT PRN; Protocol PRN Reason: Hypoglycemia Protocol Dextrose (Glutose 15) 0 gm PO ONCE PRN; Protocol PRN Reason: Hypoglycemia Protocol Glucagon (Glucagen Diagnostic Kit) 0 mg IM STAT PRN; Protocol PRN Reason: Hypoglycemia Protocol Meropenem (Merrem Iv 1 Gm Premix) 50 mls @ 100 mls/hr IVPB Q8H [facility] PRN Reason: Protocol Last Admin: 10/11/17 12:30 Dose: 100 mls/hr Vancomycin/Sodium Chloride (Vancomycin 1 Gm/Ns 200 Ml) 1 gm in 200 mls @ 133.333 mls/hr IVPB Q12H [facility] PRN Reason: Protocol Stop: 10/16/17 13:31 Last Admin: 10/11/17 12:39 Dose: 133.333 mls/hr Valproate Sodium 500 mg/ (Sodium Chloride) 105 mls @ 100 mls/hr IVPB Q12H [facility] Last Admin: 10/11/17 15:08 Dose: 100 mls/hr Lactated Ringer's (Lactated Ringer's) 1,000 mls @ 100 mls/hr IV .Q10H [facility] Last Admin: 10/11/17 15:10 Dose: 100 mls/hr Insulin Human Regular (Novolin R) 0 unit SC Q6 [facility] PRN Reason: Protocol Latanoprost (Xalatan Opht) 0 ml OU HS [facility] Last Admin: 10/10/17 21:31 Dose: 2.5 ml Losartan Potassium (Cozaar) 100 mg PO DAILY [facility] Last Admin: 10/11/17 09:03 Dose: Not Given - Labs Labs: 10/11/17 07:00 10/11/17 07:00 PT 10.9 SECONDS (9.7-12.2) 10/09/17 11:37 INR 1.0 10/09/17 11:37 APTT 26 SECONDS (21-34) 10/03/17 10:30 Attending/Attestation - Attestation I have personally seen and examined this patient.: Yes I have fully participated in the care of the patient.: Yes I have reviewed all pertinent clinical information, including history, physical exam and plan: Yes Notes (Text): Patient was seen and examined this morning after Neuro [facility] ASSOCIATE saw this patient. I spoke to patient's daughter at bed side about her finding and planning for surgery again to fix her INTAKE RN shunt by neurosurgeon.Dr puga spoke to Dr Kim neurosurgeon. as per him her peritoneal cath part of INTAKE RN shunt needed change. we will follow with neurosurgeon Patient was seen after surgery at ICU. Discussed with Dr Mota at bedside. Patient will go for a CT scan. Dr Mota also recommending her to have an EEG.Her oral meds discontinued. Started on IV Lucille as per DR Mota Discussed with Dr bergeron this morning and started on Vanco and meropenem. Has CSF culture done yesterday. Its negative/ 24hrs. Blood cultures from 10/08/2017 negative.we will repeat Urine culture. patient was responding to deep pain only at ICU. Left pupil react to light. Right react to light sluggish/better than before surgery. Discussed with DR Puga Lopressor for high BP ordered. Reduce LR to 100cc/hr,monitor sugar and cover with insulin.SCD for DVT prophylaxis follow CT head spoke to her daughter at bedside this afternoon.
[2017-10-11] MEDS ORDERED: Meropenem 1 GM in Sodium Chloride 0.9% 100 ML IVPB SCH (14:00)
--- NOTE | 2017-10-11 14:05 | CP.PCM.CON ---
History of Present Illness - History of Present Illness History of Present Illness: dictated Past Patient History - Infectious Disease Hx of Infectious Diseases: None - Past Medical History & Family History Past Medical History?: Yes - Past Social History Smoking Status: Never Smoked - CARDIAC Hx Hypercholesterolemia: Yes Hx Hypertension: Yes - PULMONARY Hx Asthma: Yes - NEUROLOGICAL Hx Neurological Disorder: Yes Hx Vertigo: Yes Other/Comment: Hydrocephalus with Shunt - ENDOCRINE/METABOLIC Hx Diabetes Mellitus Type 2: Yes - MUSCULOSKELETAL/RHEUMATOLOGICAL Hx Musculoskeletal Disorders: Yes Hx Falls: Yes - PSYCHIATRIC Hx Substance Use: No - SURGICAL HISTORY Hx Surgeries: Yes Other/Comment: Shunt for Hydrocephalus - ANESTHESIA Hx Anesthesia: Yes Hx Anesthesia Reactions: No Meds Home Medications: Home Medication List Medication Instructions Recorded Confirmed Type Furosemide [Lasix] 20 mg PO BID #14 tablet 10/04/17 Rx Allergies/Adverse Reactions: Allergies Allergy/AdvReac Type Severity Reaction Status Date / Time No Known Allergies Allergy Verified 12/08/15 16:19 - Medications Medications: Current Medications Amlodipine Besylate (Norvasc) 5 mg PO DAILY [facility] Last Admin: 10/11/17 09:04 Dose: Not Given Bupropion HCl (Wellbutrin Xl) 150 mg PO DAILY [facility] Last Admin: 10/11/17 09:06 Dose: Not Given Dextrose (Dextrose 50% Inj) 0 ml IV STAT PRN; Protocol PRN Reason: Hypoglycemia Protocol Dextrose (Glutose 15) 0 gm PO ONCE PRN; Protocol PRN Reason: Hypoglycemia Protocol Gabapentin (Neurontin) 100 mg PO TID [facility] Last Admin: 10/11/17 13:48 Dose: Not Given Glucagon (Glucagen Diagnostic Kit) 0 mg IM STAT PRN; Protocol PRN Reason: Hypoglycemia Protocol Lactated Ringer's (Lactated Ringer's) 1,000 mls @ 140 mls/hr IV .Q7H9M [facility] Last Admin: 10/11/17 12:30 Dose: 140 mls/hr Meropenem (Merrem Iv 1 Gm Premix) 50 mls @ 100 mls/hr IVPB Q8H [facility] PRN Reason: Protocol Last Admin: 10/11/17 12:30 Dose: 100 mls/hr Vancomycin/Sodium Chloride (Vancomycin 1 Gm/Ns 200 Ml) 1 gm in 200 mls @ 133.333 mls/hr IVPB Q12H [facility] PRN Reason: Protocol Stop: 10/16/17 13:31 Last Admin: 10/11/17 12:39 Dose: 133.333 mls/hr Insulin Detemir (Levemir) 25 unit SC Q12 [facility] Last Admin: 10/11/17 09:03 Dose: Not Given Insulin Human Regular (Novolin R) 0 unit SC ACHS [facility] PRN Reason: Protocol Last Admin: 10/11/17 13:49 Dose: Not Given Latanoprost (Xalatan Opht) 0 ml OU HS [facility] Last Admin: 10/10/17 21:31 Dose: 2.5 ml Losartan Potassium (Cozaar) 100 mg PO DAILY [facility] Last Admin: 10/11/17 09:03 Dose: Not Given Valproate Sodium (Depakene Cap) 500 mg PO BID [facility] Last Admin: 10/11/17 09:03 Dose: Not Given Results - Vital Signs Recent Vital Signs: Last Vital Signs Temp 993 F H 10/11/17 11:40 Pulse 98 H 10/11/17 11:40 Resp 13 10/11/17 11:40 BP 164/81 H 10/11/17 11:40 Pulse Ox 100 10/11/17 11:40 - Labs Result Diagrams: 10/11/17 07:00 10/11/17 07:00 Labs: Laboratory Results - last 24 hr 10/10/17 10/10/17 10/10/17 10:54 14:33 14:33 WBC RBC Hgb Hct MCV MCH MCHC RDW Plt Count MPV Neut % (Auto) Lymph % (Auto) [place] % (Auto) Eos % (Auto) Baso % (Auto) Neut # (Auto) Lymph # (Auto) [place] # (Auto) Eos # (Auto) Baso # (Auto) Puncture Site pCO2 pO2 HCO3 ABG pH ABG Total CO2 ABG O2 Saturation ABG Base Excess ABG Hemoglobin ABG Carboxyhemoglobin POC ABG HHb (Measured) ABG Methemoglobin Alan Test A-a O2 Difference Respiratory Index Hgb O2 Saturation Vent Mode Mechanical Rate FiO2 Tidal Volume PEEP Sodium Potassium Chloride Carbon Dioxide Anion Gap BUN Creatinine Est GFR ( Amer) Est GFR (Non-Af Amer) POC Glucose (mg/dL) 259 H Random Glucose Calcium Phosphorus Magnesium Total Bilirubin AST ALT Alkaline Phosphatase Total Protein Albumin Globulin Albumin/Globulin Ratio Fluid Type Spinal fluid CSF Volume 3 H CSF Appearance Clear/colorless CSF WBC 1.0 CSF RBC 2665.0 H CSF Total Cell Counted TEST NOT PERFORMED CSF Neutrophils CSF Lymphocytes CSF Monos/Macrophages CSF Comment TEST NOT PERFORMED CSF Glucose 128 H* CSF Total Protein < 10.0 L 10/10/17 10/10/17 10/11/17 15:50 20:58 05:54 WBC RBC Hgb Hct MCV MCH MCHC RDW Plt Count MPV Neut % (Auto) Lymph % (Auto) [place] % (Auto) Eos % (Auto) Baso % (Auto) Neut # (Auto) Lymph # (Auto) [place] # (Auto) Eos # (Auto) Baso # (Auto) Puncture Site pCO2 pO2 HCO3 ABG pH ABG Total CO2 ABG O2 Saturation ABG Base Excess ABG Hemoglobin ABG Carboxyhemoglobin POC ABG HHb (Measured) ABG Methemoglobin Alan Test A-a O2 Difference Respiratory Index Hgb O2 Saturation Vent Mode Mechanical Rate FiO2 Tidal Volume PEEP Sodium Potassium Chloride Carbon Dioxide Anion Gap BUN Creatinine Est GFR ( Amer) Est GFR (Non-Af Amer) POC Glucose (mg/dL) 338 H 257 H 184 H Random Glucose Calcium Phosphorus Magnesium Total Bilirubin AST ALT Alkaline Phosphatase Total Protein Albumin Globulin Albumin/Globulin Ratio Fluid Type CSF Volume CSF Appearance CSF WBC CSF RBC CSF Total Cell Counted CSF Neutrophils CSF Lymphocytes CSF Monos/Macrophages CSF Comment CSF Glucose CSF Total Protein 10/11/17 10/11/17 10/11/17 07:00 07:00 10:21 WBC 8.7 RBC 4.31 Hgb 12.7 Hct 36.7 MCV 85.2 MCH 29.4 MCHC 34.6 RDW 15.2 H Plt Count 230 MPV 8.5 Neut % (Auto) 70.5 Lymph % (Auto) 20.7 [place] % (Auto) 6.7 Eos % (Auto) 1.5 Baso % (Auto) 0.6 Neut # (Auto) 6.1 Lymph # (Auto) 1.8 [place] # (Auto) 0.6 Eos # (Auto) 0.1 Baso # (Auto) 0.1 Puncture Site pCO2 pO2 HCO3 ABG pH ABG Total CO2 ABG O2 Saturation ABG Base Excess ABG Hemoglobin ABG Carboxyhemoglobin POC ABG HHb (Measured) ABG Methemoglobin Alan Test A-a O2 Difference Respiratory Index Hgb O2 Saturation Vent Mode Mechanical Rate FiO2 Tidal Volume PEEP Sodium 144 Potassium 3.5 L Chloride 111 H Carbon Dioxide 23 Anion Gap 14 BUN 33 H Creatinine 1.0 Est GFR ( Amer) > 60 Est GFR (Non-Af Amer) 55 POC Glucose (mg/dL) 197 H Random Glucose 177 H Calcium 8.5 L Phosphorus 3.0 Magnesium 2.3 Total Bilirubin 0.4 AST 54 H D ALT 30 Alkaline Phosphatase 70 Total Protein 6.0 L Albumin 3.3 L Globulin 2.7 Albumin/Globulin Ratio 1.2 Fluid Type CSF Volume CSF Appearance CSF WBC CSF RBC CSF Total Cell Counted CSF Neutrophils CSF Lymphocytes CSF Monos/Macrophages CSF Comment CSF Glucose CSF Total Protein 10/11/17 10:45 WBC RBC Hgb Hct MCV MCH MCHC RDW Plt Count MPV Neut % (Auto) Lymph % (Auto) [place] % (Auto) Eos % (Auto) Baso % (Auto) Neut # (Auto) Lymph # (Auto) [place] # (Auto) Eos # (Auto) Baso # (Auto) Puncture Site Rb pCO2 38 pO2 81 HCO3 21.6 ABG pH 7.35 ABG Total CO2 22.2 ABG O2 Saturation 97.0 ABG Base Excess -4.2 L ABG Hemoglobin 13.9 ABG Carboxyhemoglobin 1.6 H POC ABG HHb (Measured) 2.9 ABG Methemoglobin 1.1 Alan Test Na A-a O2 Difference 157.0 Respiratory Index 1.9 Hgb O2 Saturation 94.4 L Vent Mode Prvc Mechanical Rate 12 FiO2 40.0 Tidal Volume 500 PEEP 5 Sodium Potassium Chloride Carbon Dioxide Anion Gap BUN Creatinine Est GFR ( Amer) Est GFR (Non-Af Amer) POC Glucose (mg/dL) Random Glucose Calcium Phosphorus Magnesium Total Bilirubin AST ALT Alkaline Phosphatase Total Protein Albumin Globulin Albumin/Globulin Ratio Fluid Type CSF Volume CSF Appearance CSF WBC CSF RBC CSF Total Cell Counted CSF Neutrophils CSF Lymphocytes CSF Monos/Macrophages CSF Comment CSF Glucose CSF Total Protein
[2017-10-11] MEDS ORDERED: Labetalol 25mg/5ml Syringe IVP STA (14:15)
[2017-10-11] MEDS ORDERED: (Novolin R) Insulin Human Regular 100 units/ml vial SC SCH (14:15)
[2017-10-11] MEDS: Valproate 500 MG in Sodium Chloride 0.9% 100 ML IVPB SCH (15:08)
[2017-10-11] MEDS: Lactated Ringer's 1,000 ML IV SCH (15:10)
[2017-10-11 17:42] LABS: ARTERIAL BLOOD GAS HCO3 23.4 mmol/L (21-28); ARTERIAL BLOOD GAS HEMOGLOBIN 12.2 g/dL (11.7-17.4); ARTERIAL BLOOD GAS O2 SAT 98.4 % (95-98); ARTERIAL BLOOD GAS PCO2 35 mm/Hg (35-45); ARTERIAL BLOOD GAS PH 7.41 (7.35-7.45); ARTERIAL BLOOD GAS PO2 101 mm/Hg (80-100); ARTERIAL BLOOD GAS TCO2 23.3 mmol/L (22-28)
--- NOTE | 2017-10-11 17:54 | CP.CCUPN ---
<Ernestine Posadas - Last Filed: 10/11/17 17:51> CCU Subjective - Physician Review Subjective (Free Text): Patient was seen and examined at bedside. S/P shunt revision. Off sedation, intubated on PRVC / 500/ 5. Plan for CPAP trial and extubation CCU Objective - Vital Signs / Intake & Output Intake and Output (Last 8hrs): Intake & Output 10/11/17 10/11/17 10/11/17 06:59 14:59 22:59 Intake Total 1728.2 Output Total 325 600 Balance -325 1128.2 Weight 213 lb Intake: IV 1728.2 Output: Urine 325 600 Urine, Voided 325 - Physical Exam Physical Exam Limitations: Positive for: Other (INTUBATED) Pupils: Positive for: PERRL Extroacular Muscles: Positive for: EOMI Mouth: Positive for: Dry Respiratory/Chest: Positive for: Clear to Auscultation. Negative for: Respiratory Distress Cardiovascular: Positive for: Regular Rate and Rhythm Abdomen: Positive for: Normal Bowel Sounds. Negative for: Tenderness, Distention Upper Extremity: Positive for: Normal Inspection, NORMAL PULSES, Neurovascularly Intact, Capillary Refill < 2s Lower Extremity: Positive for: Normal Inspection, NORMAL PULSES, Neurovascularly Intact, Capillary Refill < 2 s Skin: Positive for: Warm, Dry, Normal Color - Medications Active Medications: Active Medications Generic Name Dose Route Start Last Admin Trade Name Freq PRN Reason Stop Dose Admin Bupropion HCl 150 mg 10/04/17 10:00 10/11/17 09:06 Wellbutrin Xl PO Not Given DAILY MOLLY Dextrose 0 ml 10/03/17 13:28 Dextrose 50% Inj IV STAT PRN Hypoglycemia Protocol Protocol Dextrose 0 gm 10/03/17 13:28 Glutose 15 PO ONCE PRN Hypoglycemia Protocol Protocol Glucagon 0 mg 10/03/17 13:28 Glucagen Diagnostic Kit IM STAT PRN Hypoglycemia Protocol Protocol Meropenem 50 mls @ 100 mls/hr 10/11/17 13:00 10/11/17 12:30 Merrem Iv 1 Gm Premix IVPB 100 mls/hr Q8H MOLLY Administration Protocol Vancomycin/Sodium Chloride 1 gm in 200 mls @ 133.333 mls/hr 10/11/17 13:30 12:39 Vancomycin 1 Gm/Ns 200 Ml IVPB 10/16/17 13:31 133.333 mls/hr Q12H MOLLY Administration Protocol Valproate Sodium 500 mg/ 105 mls @ 100 mls/hr 10/11/17 14:03 10/11/17 15:08 Sodium Chloride IVPB 100 mls/hr Q12H MOLLY Administration Lactated Ringer's 1,000 mls @ 100 mls/hr 10/11/17 14:28 10/11/17 15:10 Lactated Ringer's IV 100 mls/hr .Q10H MOLLY Administration Insulin Human Regular 0 unit 10/11/17 18:00 10/11/17 17:38 Novolin R SC 2 units Q6 MOLLY Administration Protocol Latanoprost 0 ml 10/03/17 22:00 10/10/17 21:31 Xalatan Opht OU 2.5 ml HS MOLLY Administration Losartan Potassium 100 mg 10/04/17 10:00 10/11/17 09:03 Cozaar PO Not Given DAILY MOLLY - Patient Studies Lab Studies: Microbiology Studies 10/08/17 11:50 Blood Culture - Preliminary Blood-Venous NO GROWTH AFTER 3 DAYS 10/08/17 11:22 Blood Culture - Preliminary Blood-Venous NO GROWTH AFTER 3 DAYS 10/10/17 14:33 Gram Stain - Final Cerebral Spinal Fluid CSF Culture - Preliminary NO GROWTH AFTER 24 HOURS Lab Studies 10/11/17 10/11/17 10/11/17 Range/Units 17:39 10:45 10:21 WBC (4.8-10.8) K/uL RBC (3.80-5.20) Mil/uL Hgb (11.0-16.0) g/dL Hct (34.0-47.0) % MCV (81.0-99.0) fL MCH (27.0-31.0) pg MCHC (33.0-37.0) g/dL RDW (11.5-14.5) % Plt Count (130-400) K/uL MPV (7.2-11.7) fL Neut % (Auto) (50.0-75.0) % Lymph % (Auto) (20.0-40.0) % Emery % (Auto) (0.0-10.0) % Eos % (Auto) (0.0-4.0) % Baso % (Auto) (0.0-2.0) % Neut # (Auto) (1.8-7.0) K/uL Lymph # (Auto) (1.0-4.3) K/uL Emery # (Auto) (0.0-0.8) K/uL Eos # (Auto) (0.0-0.7) K/uL Baso # (Auto) (0.0-0.2) K/uL Puncture Site Rb Rb pCO2 35 38 (35-45) mm/Hg pO2 101 H 81 (80-100) mm/Hg HCO3 23.4 21.6 (21-28) mmol/L ABG pH 7.41 7.35 (7.35-7.45) ABG Total CO2 23.3 22.2 (22-28) mmol/L ABG O2 Saturation 98.4 H 97.0 (95-98) % ABG Base Excess -1.9 -4.2 L (-2.0-3.0) mmol/L ABG Hemoglobin 12.2 13.9 (11.7-17.4) g/dL ABG Carboxyhemoglobin 1.2 1.6 H (0.5-1.5) % POC ABG HHb (Measured) 1.6 2.9 (0.0-5.0) % ABG Methemoglobin 1.2 1.1 (0.0-3.0) % Alan Test Na Na A-a O2 Difference 140.0 157.0 mm/Hg Respiratory Index 1.4 1.9 Hgb O2 Saturation 95.9 94.4 L (95.0-98.0) % Vent Mode Prvc Prvc Mechanical Rate 12 12 FiO2 40.0 40.0 % Tidal Volume 500 500 PEEP 5 5 Sodium (132-148) mmol/L Potassium (3.6-5.2) mmol/L Chloride (98-107) mmol/L Carbon Dioxide (22-30) mmol/L Anion Gap (10-20) BUN (7-17) mg/dL Creatinine (0.7-1.2) mg/dL Est GFR ( Amer) Est GFR (Non-Af Amer) POC Glucose (mg/dL) 197 H (65-110) mg/dL Random Glucose (65-105) mg/dL Calcium (8.6-10.4) mg/dl Phosphorus (2.5-4.5) mg/dL Magnesium (1.6-2.3) mg/dL Total Bilirubin (0.2-1.3) mg/dL AST (14-36) U/L ALT (9-52) U/L Alkaline Phosphatase (38-126) U/L Total Protein (6.3-8.3) g/dL Albumin (3.5-5.0) g/dL Globulin (2.2-3.9) gm/dL Albumin/Globulin Ratio (1.0-2.1) 10/11/17 10/11/17 10/11/17 Range/Units 07:00 07:00 05:54 WBC 8.7 (4.8-10.8) K/uL RBC 4.31 (3.80-5.20) Mil/uL Hgb 12.7 (11.0-16.0) g/dL Hct 36.7 (34.0-47.0) % MCV 85.2 (81.0-99.0) fL MCH 29.4 (27.0-31.0) pg MCHC 34.6 (33.0-37.0) g/dL RDW 15.2 H (11.5-14.5) % Plt Count 230 (130-400) K/uL MPV 8.5 (7.2-11.7) fL Neut % (Auto) 70.5 (50.0-75.0) % Lymph % (Auto) 20.7 (20.0-40.0) % Emery % (Auto) 6.7 (0.0-10.0) % Eos % (Auto) 1.5 (0.0-4.0) % Baso % (Auto) 0.6 (0.0-2.0) % Neut # (Auto) 6.1 (1.8-7.0) K/uL Lymph # (Auto) 1.8 (1.0-4.3) K/uL Emery # (Auto) 0.6 (0.0-0.8) K/uL Eos # (Auto) 0.1 (0.0-0.7) K/uL Baso # (Auto) 0.1 (0.0-0.2) K/uL Puncture Site pCO2 (35-45) mm/Hg pO2 (80-100) mm/Hg HCO3 (21-28) mmol/L ABG pH (7.35-7.45) ABG Total CO2 (22-28) mmol/L ABG O2 Saturation (95-98) % ABG Base Excess (-2.0-3.0) mmol/L ABG Hemoglobin (11.7-17.4) g/dL ABG Carboxyhemoglobin (0.5-1.5) % POC ABG HHb (Measured) (0.0-5.0) % ABG Methemoglobin (0.0-3.0) % Alan Test A-a O2 Difference mm/Hg Respiratory Index Hgb O2 Saturation (95.0-98.0) % Vent Mode Mechanical Rate FiO2 % Tidal Volume PEEP Sodium 144 (132-148) mmol/L Potassium 3.5 L (3.6-5.2) mmol/L Chloride 111 H (98-107) mmol/L Carbon Dioxide 23 (22-30) mmol/L Anion Gap 14 (10-20) BUN 33 H (7-17) mg/dL Creatinine 1.0 (0.7-1.2) mg/dL Est GFR ( Amer) > 60 Est GFR (Non-Af Amer) 55 POC Glucose (mg/dL) 184 H (65-110) mg/dL Random Glucose 177 H (65-105) mg/dL Calcium 8.5 L (8.6-10.4) mg/dl Phosphorus 3.0 (2.5-4.5) mg/dL Magnesium 2.3 (1.6-2.3) mg/dL Total Bilirubin 0.4 (0.2-1.3) mg/dL AST 54 H D (14-36) U/L ALT 30 (9-52) U/L Alkaline Phosphatase 70 (38-126) U/L Total Protein 6.0 L (6.3-8.3) g/dL Albumin 3.3 L (3.5-5.0) g/dL Globulin 2.7 (2.2-3.9) gm/dL Albumin/Globulin Ratio 1.2 (1.0-2.1) /09/22 Range/Units 20:58 WBC (4.8-10.8) K/uL RBC (3.80-5.20) Mil/uL Hgb (11.0-16.0) g/dL Hct (34.0-47.0) % MCV (81.0-99.0) fL MCH (27.0-31.0) pg MCHC (33.0-37.0) g/dL RDW (11.5-14.5) % Plt Count (130-400) K/uL MPV (7.2-11.7) fL Neut % (Auto) (50.0-75.0) % Lymph % (Auto) (20.0-40.0) % Emery % (Auto) (0.0-10.0) % Eos % (Auto) (0.0-4.0) % Baso % (Auto) (0.0-2.0) % Neut # (Auto) (1.8-7.0) K/uL Lymph # (Auto) (1.0-4.3) K/uL Emery # (Auto) (0.0-0.8) K/uL Eos # (Auto) (0.0-0.7) K/uL Baso # (Auto) (0.0-0.2) K/uL Puncture Site pCO2 (35-45) mm/Hg pO2 (80-100) mm/Hg HCO3 (21-28) mmol/L ABG pH (7.35-7.45) ABG Total CO2 (22-28) mmol/L ABG O2 Saturation (95-98) % ABG Base Excess (-2.0-3.0) mmol/L ABG Hemoglobin (11.7-17.4) g/dL ABG Carboxyhemoglobin (0.5-1.5) % POC ABG HHb (Measured) (0.0-5.0) % ABG Methemoglobin (0.0-3.0) % Alan Test A-a O2 Difference mm/Hg Respiratory Index Hgb O2 Saturation (95.0-98.0) % Vent Mode Mechanical Rate FiO2 % Tidal Volume PEEP Sodium (132-148) mmol/L Potassium (3.6-5.2) mmol/L Chloride (98-107) mmol/L Carbon Dioxide (22-30) mmol/L Anion Gap (10-20) BUN (7-17) mg/dL Creatinine (0.7-1.2) mg/dL Est GFR ( Amer) Est GFR (Non-Af Amer) POC Glucose (mg/dL) 257 H (65-110) mg/dL Random Glucose (65-105) mg/dL Calcium (8.6-10.4) mg/dl Phosphorus (2.5-4.5) mg/dL Magnesium (1.6-2.3) mg/dL Total Bilirubin (0.2-1.3) mg/dL AST (14-36) U/L ALT (9-52) U/L Alkaline Phosphatase (38-126) U/L Total Protein (6.3-8.3) g/dL Albumin (3.5-5.0) g/dL Globulin (2.2-3.9) gm/dL Albumin/Globulin Ratio (1.0-2.1) Laboratory Results - last 24 hr 10/10/17 10/11/17 10/11/17 20:58 05:54 07:00 WBC 8.7 RBC 4.31 Hgb 12.7 Hct 36.7 MCV 85.2 MCH 29.4 MCHC 34.6 RDW 15.2 H Plt Count 230 MPV 8.5 Neut % (Auto) 70.5 Lymph % (Auto) 20.7 Emery % (Auto) 6.7 Eos % (Auto) 1.5 Baso % (Auto) 0.6 Neut # (Auto) 6.1 Lymph # (Auto) 1.8 Emery # (Auto) 0.6 Eos # (Auto) 0.1 Baso # (Auto) 0.1 Puncture Site pCO2 pO2 HCO3 ABG pH ABG Total CO2 ABG O2 Saturation ABG Base Excess ABG Hemoglobin ABG Carboxyhemoglobin POC ABG HHb (Measured) ABG Methemoglobin Alan Test A-a O2 Difference Respiratory Index Hgb O2 Saturation Vent Mode Mechanical Rate FiO2 Tidal Volume PEEP Sodium Potassium Chloride Carbon Dioxide Anion Gap BUN Creatinine Est GFR ( Amer) Est GFR (Non-Af Amer) POC Glucose (mg/dL) 257 H 184 H Random Glucose Calcium Phosphorus Magnesium Total Bilirubin AST ALT Alkaline Phosphatase Total Protein Albumin Globulin Albumin/Globulin Ratio 10/11/17 10/11/17 10/11/17 07:00 10:21 10:45 WBC RBC Hgb Hct MCV MCH MCHC RDW Plt Count MPV Neut % (Auto) Lymph % (Auto) Emery % (Auto) Eos % (Auto) Baso % (Auto) Neut # (Auto) Lymph # (Auto) Emery # (Auto) Eos # (Auto) Baso # (Auto) Puncture Site Rb pCO2 38 pO2 81 HCO3 21.6 ABG pH 7.35 ABG Total CO2 22.2 ABG O2 Saturation 97.0 ABG Base Excess -4.2 L ABG Hemoglobin 13.9 ABG Carboxyhemoglobin 1.6 H POC ABG HHb (Measured) 2.9 ABG Methemoglobin 1.1 Alan Test Na A-a O2 Difference 157.0 Respiratory Index 1.9 Hgb O2 Saturation 94.4 L Vent Mode Prvc Mechanical Rate 12 FiO2 40.0 Tidal Volume 500 PEEP 5 Sodium 144 Potassium 3.5 L Chloride 111 H Carbon Dioxide 23 Anion Gap 14 BUN 33 H Creatinine 1.0 Est GFR ( Amer) > 60 Est GFR (Non-Af Amer) 55 POC Glucose (mg/dL) 197 H Random Glucose 177 H Calcium 8.5 L Phosphorus 3.0 Magnesium 2.3 Total Bilirubin 0.4 AST 54 H D ALT 30 Alkaline Phosphatase 70 Total Protein 6.0 L Albumin 3.3 L Globulin 2.7 Albumin/Globulin Ratio 1.2 10/11/17 17:39 WBC RBC Hgb Hct MCV MCH MCHC RDW Plt Count MPV Neut % (Auto) Lymph % (Auto) Emery % (Auto) Eos % (Auto) Baso % (Auto) Neut # (Auto) Lymph # (Auto) Emery # (Auto) Eos # (Auto) Baso # (Auto) Puncture Site Rb pCO2 35 pO2 101 H HCO3 23.4 ABG pH 7.41 ABG Total CO2 23.3 ABG O2 Saturation 98.4 H ABG Base Excess -1.9 ABG Hemoglobin 12.2 ABG Carboxyhemoglobin 1.2 POC ABG HHb (Measured) 1.6 ABG Methemoglobin 1.2 Alan Test Na A-a O2 Difference 140.0 Respiratory Index 1.4 Hgb O2 Saturation 95.9 Vent Mode Prvc Mechanical Rate 12 FiO2 40.0 Tidal Volume 500 PEEP 5 Sodium Potassium Chloride Carbon Dioxide Anion Gap BUN Creatinine Est GFR ( Amer) Est GFR (Non-Af Amer) POC Glucose (mg/dL) Random Glucose Calcium Phosphorus Magnesium Total Bilirubin AST ALT Alkaline Phosphatase Total Protein Albumin Globulin Albumin/Globulin Ratio Fingerstick Blood Sugar Results: 235 Critical Care Progress Note - Nutrition Nutrition: Nutrition Category Date Time Status NPO Diet [DIET] Diets 10/10/17 Breakfast Active Assessment/Plan - Assessment and Plan (Free Text) Assessment: 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 CT head (10/08):Ventricles remain markedly dilated questionably increased slightly in size when compared with prior study 10/06/2017. Findings are consistent with shunt malfunction. There are confluent low-attenuation changes seen in the periventricular white matter most conspicuous in the periatrial/ perioccipital horn regions. . Underlying chronic periventricular white matter ischemic changes may contribute. EEG (10/09): awaiting official report CT head (10/10): Stent malfunction pattern of persistent ventriculomegaly again identified with right frontal shunt unchanged in position. Limited underlying age-related neuro degenerative changes reiterated. No intracranial hemorrhage or worsening of hydrocephalus appreciated at this time. Abd/Pelvis CT (10/11): Reason abdominal wall surgery with postsurgical changes in the anterior abdominal wall and superficial skin clayton. Two partially imaged shunt catheters as described above. Colonic distention with gas and fluid may represent postoperative ileus versus acute colonic ileus. Clinical correlation is recommended. Sub centimeter left thyroid nodule. Dedicated thyroid ultrasound can be obtained for further evaluation as clinically warranted. CT head (10/11): Enlarging ventricles per Dr. Hancock. 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 Hancock. Patient transfer to ICU further evaluation and management. Pending repeat Head CT s/p revision 10/11/17: Altered Mental Status likely secondary to NPH Blood cultures negative at 5 days Repeat blood cultures negative at 3 days Urine culture negative Patient is afebrile, no white count Chest X ray - negative Troponin negative Ammonia 11 6/:as per family; patient is ambulatory and speaks in full coherent sentences and ANOx3 at baseline; currently ANOx2; speaking more clearly, opening eyes. Improving but not at baseline 10/08: patient is drowsy and not as alert as yesterday; will answer to name and pain, but is otherwise obtunded /: patient is lethargic, responding to pain and some verbal stimuli. Will speak few words. 10/10: patient refusing to wake up. only responding to pain. DM 2 Uncontrolled diabetes Accuchecks QAC and HS Medium Dose insulin sliding scale Will hold home metformin while in the hospital Will continue to monitor and titrate as appropriate HLD Continue statin Asthma Duonebs prn Controlled Not wheezing Hypertension, controlled Norvasc 5mg PO daily Elevated Creatinine - RESOLVED Cr stayed at 1.4 (baseline on 10/03 was 0.7) Continue NS@100mL/hr Continue to monitor Prophylactic measure Protonix 40mg PO daily SCDs Diet: switched to pureed diet. only feed if patient is awake and alert, otherwise NPO. Disposition: Anticipate CPAP weaning trial --> extubation. DW Dr. Bolaños, Ernestine Posadas DO, PGY-1 <Vikas Bolaños - Last Filed: 10/11/17 18:32> CCU Objective - Vital Signs / Intake & Output Intake and Output (Last 8hrs): Intake & Output 10/11/17 10/11/17 10/11/17 06:59 14:59 22:59 Intake Total 1728.2 Output Total 325 600 Balance -325 1128.2 Weight 213 lb Intake: IV 1728.2 Output: Urine 325 600 Urine, Voided 325 - Medications Active Medications: Active Medications Generic Name Dose Route Start Last Admin Trade Name Freq PRN Reason Stop Dose Admin Bupropion HCl 150 mg 10/04/17 10:00 10/11/17 09:06 Wellbutrin Xl PO Not Given DAILY MOLLY Dextrose 0 ml 10/03/17 13:28 Dextrose 50% Inj IV STAT PRN Hypoglycemia Protocol Protocol Dextrose 0 gm 10/03/17 13:28 Glutose 15 PO ONCE PRN Hypoglycemia Protocol Protocol Glucagon 0 mg 10/03/17 13:28 Glucagen Diagnostic Kit IM STAT PRN Hypoglycemia Protocol Protocol Meropenem 50 mls @ 100 mls/hr 10/11/17 13:00 10/11/17 12:30 Merrem Iv 1 Gm Premix IVPB 100 mls/hr Q8H MOLLY Administration Protocol Vancomycin/Sodium Chloride 1 gm in 200 mls @ 133.333 mls/hr 10/11/17 13:30 12:39 Vancomycin 1 Gm/Ns 200 Ml IVPB 10/16/17 13:31 133.333 mls/hr Q12H MOLLY Administration Protocol Valproate Sodium 500 mg/ 105 mls @ 100 mls/hr 10/11/17 14:03 10/11/17 15:08 Sodium Chloride IVPB 100 mls/hr Q12H MOLLY Administration Lactated Ringer's 1,000 mls @ 100 mls/hr 10/11/17 14:28 10/11/17 15:10 Lactated Ringer's IV 100 mls/hr .Q10H MOLLY Administration Insulin Human Regular 0 unit 10/11/17 18:00 10/11/17 17:38 Novolin R SC 2 units Q6 MOLLY Administration Protocol Latanoprost 0 ml 10/03/17 22:00 10/10/17 21:31 Xalatan Opht OU 2.5 ml HS MOLLY Administration Losartan Potassium 100 mg 10/04/17 10:00 10/11/17 09:03 Cozaar PO Not Given DAILY MOLLY - Patient Studies Lab Studies: Microbiology Studies 10/08/17 11:50 Blood Culture - Preliminary Blood-Venous NO GROWTH AFTER 3 DAYS 10/08/17 11:22 Blood Culture - Preliminary Blood-Venous NO GROWTH AFTER 3 DAYS 10/10/17 14:33 Gram Stain - Final Cerebral Spinal Fluid CSF Culture - Preliminary NO GROWTH AFTER 24 HOURS Lab Studies 10/11/17 10/11/17 10/11/17 Range/Units 17:39 10:45 10:21 WBC (4.8-10.8) K/uL RBC (3.80-5.20) Mil/uL Hgb (11.0-16.0) g/dL Hct (34.0-47.0) % MCV (81.0-99.0) fL MCH (27.0-31.0) pg MCHC (33.0-37.0) g/dL RDW (11.5-14.5) % Plt Count (130-400) K/uL MPV (7.2-11.7) fL Neut % (Auto) (50.0-75.0) % Lymph % (Auto) (20.0-40.0) % Emery % (Auto) (0.0-10.0) % Eos % (Auto) (0.0-4.0) % Baso % (Auto) (0.0-2.0) % Neut # (Auto) (1.8-7.0) K/uL Lymph # (Auto) (1.0-4.3) K/uL Emery # (Auto) (0.0-0.8) K/uL Eos # (Auto) (0.0-0.7) K/uL Baso # (Auto) (0.0-0.2) K/uL Puncture Site Rb Rb pCO2 35 38 (35-45) mm/Hg pO2 101 H 81 (80-100) mm/Hg HCO3 23.4 21.6 (21-28) mmol/L ABG pH 7.41 7.35 (7.35-7.45) ABG Total CO2 23.3 22.2 (22-28) mmol/L ABG O2 Saturation 98.4 H 97.0 (95-98) % ABG Base Excess -1.9 -4.2 L (-2.0-3.0) mmol/L ABG Hemoglobin 12.2 13.9 (11.7-17.4) g/dL ABG Carboxyhemoglobin 1.2 1.6 H (0.5-1.5) % POC ABG HHb (Measured) 1.6 2.9 (0.0-5.0) % ABG Methemoglobin 1.2 1.1 (0.0-3.0) % Alan Test Na Na A-a O2 Difference 140.0 157.0 mm/Hg Respiratory Index 1.4 1.9 Hgb O2 Saturation 95.9 94.4 L (95.0-98.0) % Vent Mode Prvc Prvc Mechanical Rate 12 12 FiO2 40.0 40.0 % Tidal Volume 500 500 PEEP 5 5 Sodium (132-148) mmol/L Potassium (3.6-5.2) mmol/L Chloride (98-107) mmol/L Carbon Dioxide (22-30) mmol/L Anion Gap (10-20) BUN (7-17) mg/dL Creatinine (0.7-1.2) mg/dL Est GFR ( Amer) Est GFR (Non-Af Amer) POC Glucose (mg/dL) 197 H (65-110) mg/dL Random Glucose (65-105) mg/dL Calcium (8.6-10.4) mg/dl Phosphorus (2.5-4.5) mg/dL Magnesium (1.6-2.3) mg/dL Total Bilirubin (0.2-1.3) mg/dL AST (14-36) U/L ALT (9-52) U/L Alkaline Phosphatase (38-126) U/L Total Protein (6.3-8.3) g/dL Albumin (3.5-5.0) g/dL Globulin (2.2-3.9) gm/dL Albumin/Globulin Ratio (1.0-2.1) 10/11/17 10/11/17 10/11/17 Range/Units 07:00 07:00 05:54 WBC 8.7 (4.8-10.8) K/uL RBC 4.31 (3.80-5.20) Mil/uL Hgb 12.7 (11.0-16.0) g/dL Hct 36.7 (34.0-47.0) % MCV 85.2 (81.0-99.0) fL MCH 29.4 (27.0-31.0) pg MCHC 34.6 (33.0-37.0) g/dL RDW 15.2 H (11.5-14.5) % Plt Count 230 (130-400) K/uL MPV 8.5 (7.2-11.7) fL Neut % (Auto) 70.5 (50.0-75.0) % Lymph % (Auto) 20.7 (20.0-40.0) % Emery % (Auto) 6.7 (0.0-10.0) % Eos % (Auto) 1.5 (0.0-4.0) % Baso % (Auto) 0.6 (0.0-2.0) % Neut # (Auto) 6.1 (1.8-7.0) K/uL Lymph # (Auto) 1.8 (1.0-4.3) K/uL Emery # (Auto) 0.6 (0.0-0.8) K/uL Eos # (Auto) 0.1 (0.0-0.7) K/uL Baso # (Auto) 0.1 (0.0-0.2) K/uL Puncture Site pCO2 (35-45) mm/Hg pO2 (80-100) mm/Hg HCO3 (21-28) mmol/L ABG pH (7.35-7.45) ABG Total CO2 (22-28) mmol/L ABG O2 Saturation (95-98) % ABG Base Excess (-2.0-3.0) mmol/L ABG Hemoglobin (11.7-17.4) g/dL ABG Carboxyhemoglobin (0.5-1.5) % POC ABG HHb (Measured) (0.0-5.0) % ABG Methemoglobin (0.0-3.0) % Alan Test A-a O2 Difference mm/Hg Respiratory Index Hgb O2 Saturation (95.0-98.0) % Vent Mode Mechanical Rate FiO2 % Tidal Volume PEEP Sodium 144 (132-148) mmol/L Potassium 3.5 L (3.6-5.2) mmol/L Chloride 111 H (98-107) mmol/L Carbon Dioxide 23 (22-30) mmol/L Anion Gap 14 (10-20) BUN 33 H (7-17) mg/dL Creatinine 1.0 (0.7-1.2) mg/dL Est GFR ( Amer) > 60 Est GFR (Non-Af Amer) 55 POC Glucose (mg/dL) 184 H (65-110) mg/dL Random Glucose 177 H (65-105) mg/dL Calcium 8.5 L (8.6-10.4) mg/dl Phosphorus 3.0 (2.5-4.5) mg/dL Magnesium 2.3 (1.6-2.3) mg/dL Total Bilirubin 0.4 (0.2-1.3) mg/dL AST 54 H D (14-36) U/L ALT 30 (9-52) U/L Alkaline Phosphatase 70 (38-126) U/L Total Protein 6.0 L (6.3-8.3) g/dL Albumin 3.3 L (3.5-5.0) g/dL Globulin 2.7 (2.2-3.9) gm/dL Albumin/Globulin Ratio 1.2 (1.0-2.1) 10/10/17 Range/Units 20:58 WBC (4.8-10.8) K/uL RBC (3.80-5.20) Mil/uL Hgb (11.0-16.0) g/dL Hct (34.0-47.0) % MCV (81.0-99.0) fL MCH (27.0-31.0) pg MCHC (33.0-37.0) g/dL RDW (11.5-14.5) % Plt Count (130-400) K/uL MPV (7.2-11.7) fL Neut % (Auto) (50.0-75.0) % Lymph % (Auto) (20.0-40.0) % Emery % (Auto) (0.0-10.0) % Eos % (Auto) (0.0-4.0) % Baso % (Auto) (0.0-2.0) % Neut # (Auto) (1.8-7.0) K/uL Lymph # (Auto) (1.0-4.3) K/uL Emery # (Auto) (0.0-0.8) K/uL Eos # (Auto) (0.0-0.7) K/uL Baso # (Auto) (0.0-0.2) K/uL Puncture Site pCO2 (35-45) mm/Hg pO2 (80-100) mm/Hg HCO3 (21-28) mmol/L ABG pH (7.35-7.45) ABG Total CO2 (22-28) mmol/L ABG O2 Saturation (95-98) % ABG Base Excess (-2.0-3.0) mmol/L ABG Hemoglobin (11.7-17.4) g/dL ABG Carboxyhemoglobin (0.5-1.5) % POC ABG HHb (Measured) (0.0-5.0) % ABG Methemoglobin (0.0-3.0) % Alan Test A-a O2 Difference mm/Hg Respiratory Index Hgb O2 Saturation (95.0-98.0) % Vent Mode Mechanical Rate FiO2 % Tidal Volume PEEP Sodium (132-148) mmol/L Potassium (3.6-5.2) mmol/L Chloride (98-107) mmol/L Carbon Dioxide (22-30) mmol/L Anion Gap (10-20) BUN (7-17) mg/dL Creatinine (0.7-1.2) mg/dL Est GFR ( Amer) Est GFR (Non-Af Amer) POC Glucose (mg/dL) 257 H (65-110) mg/dL Random Glucose (65-105) mg/dL Calcium (8.6-10.4) mg/dl Phosphorus (2.5-4.5) mg/dL Magnesium (1.6-2.3) mg/dL Total Bilirubin (0.2-1.3) mg/dL AST (14-36) U/L ALT (9-52) U/L Alkaline Phosphatase (38-126) U/L Total Protein (6.3-8.3) g/dL Albumin (3.5-5.0) g/dL Globulin (2.2-3.9) gm/dL Albumin/Globulin Ratio (1.0-2.1) Laboratory Results - last 24 hr 10/10/17 10/11/17 10/11/17 20:58 05:54 07:00 WBC 8.7 RBC 4.31 Hgb 12.7 Hct 36.7 MCV 85.2 MCH 29.4 MCHC 34.6 RDW 15.2 H Plt Count 230 MPV 8.5 Neut % (Auto) 70.5 Lymph % (Auto) 20.7 Emery % (Auto) 6.7 Eos % (Auto) 1.5 Baso % (Auto) 0.6 Neut # (Auto) 6.1 Lymph # (Auto) 1.8 Emery # (Auto) 0.6 Eos # (Auto) 0.1 Baso # (Auto) 0.1 Puncture Site pCO2 pO2 HCO3 ABG pH ABG Total CO2 ABG O2 Saturation ABG Base Excess ABG Hemoglobin ABG Carboxyhemoglobin POC ABG HHb (Measured) ABG Methemoglobin Alan Test A-a O2 Difference Respiratory Index Hgb O2 Saturation Vent Mode Mechanical Rate FiO2 Tidal Volume PEEP Sodium Potassium Chloride Carbon Dioxide Anion Gap BUN Creatinine Est GFR ( Amer) Est GFR (Non-Af Amer) POC Glucose (mg/dL) 257 H 184 H Random Glucose Calcium Phosphorus Magnesium Total Bilirubin AST ALT Alkaline Phosphatase Total Protein Albumin Globulin Albumin/Globulin Ratio 10/11/17 10/11/17 10/11/17 07:00 10:21 10:45 WBC RBC Hgb Hct MCV MCH MCHC RDW Plt Count MPV Neut % (Auto) Lymph % (Auto) Emery % (Auto) Eos % (Auto) Baso % (Auto) Neut # (Auto) Lymph # (Auto) Emery # (Auto) Eos # (Auto) Baso # (Auto) Puncture Site Rb pCO2 38 pO2 81 HCO3 21.6 ABG pH 7.35 ABG Total CO2 22.2 ABG O2 Saturation 97.0 ABG Base Excess -4.2 L ABG Hemoglobin 13.9 ABG Carboxyhemoglobin 1.6 H POC ABG HHb (Measured) 2.9 ABG Methemoglobin 1.1 Alan Test Na A-a O2 Difference 157.0 Respiratory Index 1.9 Hgb O2 Saturation 94.4 L Vent Mode Prvc Mechanical Rate 12 FiO2 40.0 Tidal Volume 500 PEEP 5 Sodium 144 Potassium 3.5 L Chloride 111 H Carbon Dioxide 23 Anion Gap 14 BUN 33 H Creatinine 1.0 Est GFR ( Amer) > 60 Est GFR (Non-Af Amer) 55 POC Glucose (mg/dL) 197 H Random Glucose 177 H Calcium 8.5 L Phosphorus 3.0 Magnesium 2.3 Total Bilirubin 0.4 AST 54 H D ALT 30 Alkaline Phosphatase 70 Total Protein 6.0 L Albumin 3.3 L Globulin 2.7 Albumin/Globulin Ratio 1.2 10/11/17 17:39 WBC RBC Hgb Hct MCV MCH MCHC RDW Plt Count MPV Neut % (Auto) Lymph % (Auto) Emery % (Auto) Eos % (Auto) Baso % (Auto) Neut # (Auto) Lymph # (Auto) Emery # (Auto) Eos # (Auto) Baso # (Auto) Puncture Site Rb pCO2 35 pO2 101 H HCO3 23.4 ABG pH 7.41 ABG Total CO2 23.3 ABG O2 Saturation 98.4 H ABG Base Excess -1.9 ABG Hemoglobin 12.2 ABG Carboxyhemoglobin 1.2 POC ABG HHb (Measured) 1.6 ABG Methemoglobin 1.2 Alan Test Na A-a O2 Difference 140.0 Respiratory Index 1.4 Hgb O2 Saturation 95.9 Vent Mode Prvc Mechanical Rate 12 FiO2 40.0 Tidal Volume 500 PEEP 5 Sodium Potassium Chloride Carbon Dioxide Anion Gap BUN Creatinine Est GFR ( Amer) Est GFR (Non-Af Amer) POC Glucose (mg/dL) Random Glucose Calcium Phosphorus Magnesium Total Bilirubin AST ALT Alkaline Phosphatase Total Protein Albumin Globulin Albumin/Globulin Ratio Critical Care Progress Note - Nutrition Nutrition: Nutrition Category Date Time Status NPO Diet [DIET] Diets 10/10/17 Breakfast Active Attending/Attestation - Attestation I have personally seen and examined this patient.: Yes I have fully participated in the care of the patient.: Yes I have reviewed all pertinent clinical information: Yes Notes (Text): 10/11/17 18:29 patient seen and examined in the intensive care unit. Status post revision of MOULDER OPERATOR shunt yesterday and patient was taken again to OR for lethargy and reocclusion of MOULDER OPERATOR shunt patient is intubated on ventilatory support and remains lethargic Repeat CAT scan of the head Seen by neurology On IV antibiotics Extubate when patient is more awake
--- NOTE | 2017-10-11 18:28 | CT ---
PROCEDURE: CT HEAD WITHOUT CONTRAST. HISTORY: Status post shunt revision various COMPARISON: Comparison made with prior CT scan 10/11/2017 at approximately 7:48 a.m.. TECHNIQUE: Axial computed tomography images were obtained through the head/brain without intravenous contrast. Radiation dose: Total exam DLP = 1257.53 mGy-cm. This CT exam was performed using one or more of the following dose reduction techniques: Automated exposure control, adjustment of the mA and/or kV according to patient size, and/or use of iterative reconstruction technique. FINDINGS: HEMORRHAGE: No no acute parenchymal, subarachnoid or extra-axial hemorrhage. BRAIN: There is a small bubble of air seen within the right frontal horn consistent with this patient's history of recent shunt revision. . CLARIFIER OPERATOR shunt remains remains unchanged in position with tip located in the posterior aspect right frontal horn. . The ventricles remain dilated. There is persistent diffuse/confluent low-attenuation changes seen in the periventricular white matter consistent with transependymal edema however the possibility of concomitant chronic sequela of small vessel disease may contribute. . VENTRICLES: As above CALVARIUM: The soft tissue swelling and edema consistent with recent shunt revision not periods multiple skin closure clayton overlying the shunt reservoir and CLARIFIER OPERATOR shunt tube. PARANASAL SINUSES: Unremarkable as visualized. No significant inflammatory changes. MASTOID AIR CELLS: Unremarkable as visualized. No inflammatory changes. OTHER FINDINGS: Changes of bilateral cataract surgery again noted. IMPRESSION: Again noted is a small bubble of air within the right frontal horn consistent with recent shunt revision. Ventricles remain dilated with probable diffuse transependymal edema. Mild chronic periventricular white matter ischemic changes may contribute. No other change.
--- NOTE | 2017-10-11 18:55 | CT ---
PROCEDURE: CT Abdomen and Pelvis without intravenous contrast HISTORY: ileus COMPARISON: 10/11/2017 CT TECHNIQUE: Without contrast.. Contrast dose: Radiation dose: Total exam DLP = 1285 mGy-cm. This CT exam was performed using one or more of the following dose reduction techniques: Automated exposure control, adjustment of the mA and/or kV according to patient size, and/or use of iterative reconstruction technique. FINDINGS: LOWER THORAX: Bibasilar atelectasis LIVER: Unremarkable. No gross lesion or ductal dilatation. GALLBLADDER AND BILE DUCTS: Gallbladder removed PANCREAS: Unremarkable. No gross lesion or ductal dilatation. SPLEEN: Unremarkable. ADRENALS: Unremarkable. No mass. KIDNEYS AND URETERS: Unremarkable. No hydronephrosis. No solid mass. VASCULATURE: Unremarkable. No aortic aneurysm. BOWEL: The colon is moderately distended similar to the previous exam. Findings are consistent with colonic ileus. The small bowel is normal in caliber. APPENDIX: Unremarkable. Normal appendix. PERITONEUM: Unremarkable. No free fluid. No free air. LYMPH NODES: Unremarkable. No enlarged lymph nodes. BLADDER: Unremarkable. REPRODUCTIVE: Unremarkable. BONES: No acute fracture. OTHER FINDINGS: There is a peritoneal catheter to the terminates in the right lower quadrant. IMPRESSION: The colon is moderately distended similar to the previous exam. Findings are consistent with colonic ileus. The small bowel is normal in caliber.
[2017-10-11] MEDS: Latanoprost 2.5 ml Opht Soln OU SCH (21:27)
--- NOTE | 2017-10-11 22:38 | CP.PCM.PN ---
Subjective - Date & Time of Evaluation Date of Evaluation: 10/11/17 Time of Evaluation: 21:00 - Subjective Subjective: Patient not on sedation, on vent, spontaneous opens eyes, blinks with stimulus, b/l corneal reflex present, pupil slow reaction on left not on right, intermittently moving both arms, coughing with vent, plantars b/l going up. Reviewed CT of head and report in my review feels like smaller inferior inferior horn and to some extent lateral ventricles, as compared to one in the morning. D/w Dr Rios neuro surgery television maintenance man, who has seen this patient this admission and aware about patient baseline mental status, d/w him above findings , he also reviewed CT him self, recommended to repeat CT in am as last CT was too early to detect the changes post shunt revision. Advised to hold on mannitol. Repeat CT brain ordered for the morning. D/w family members, daughter about the discussion and plan. Objective - Vital Signs/Intake and Output Vital Signs (last 24 hours): Temp Pulse Resp BP Pulse Ox 99.1 F 93 H 15 147/76 97 10/11/17 16:00 10/11/17 21:00 10/11/17 21:00 10/11/17 20:56 10/11/17 21:00 Intake and Output: 10/11/17 10/12/17 18:59 06:59 Intake Total 2518.2 300 Output Total 1120 270 Balance 1398.2 30 - Medications Medications: Current Medications Bupropion HCl (Wellbutrin Xl) 150 mg PO DAILY [facility] Last Admin: 10/11/17 09:06 Dose: Not Given Dextrose (Dextrose 50% Inj) 0 ml IV STAT PRN; Protocol PRN Reason: Hypoglycemia Protocol Dextrose (Glutose 15) 0 gm PO ONCE PRN; Protocol PRN Reason: Hypoglycemia Protocol Glucagon (Glucagen Diagnostic Kit) 0 mg IM STAT PRN; Protocol PRN Reason: Hypoglycemia Protocol Meropenem (Merrem Iv 1 Gm Premix) 50 mls @ 100 mls/hr IVPB Q8H [facility] PRN Reason: Protocol Last Admin: 10/11/17 20:14 Dose: 100 mls/hr Vancomycin/Sodium Chloride (Vancomycin 1 Gm/Ns 200 Ml) 1 gm in 200 mls @ 133.333 mls/hr IVPB Q12H [facility] PRN Reason: Protocol Stop: 10/16/17 13:31 Last Admin: 10/11/17 12:39 Dose: 133.333 mls/hr Valproate Sodium 500 mg/ (Sodium Chloride) 105 mls @ 100 mls/hr IVPB Q12H [facility] Last Admin: 10/11/17 15:08 Dose: 100 mls/hr Lactated Ringer's (Lactated Ringer's) 1,000 mls @ 100 mls/hr IV .Q10H [facility] Last Admin: 10/11/17 15:10 Dose: 100 mls/hr Insulin Human Regular (Novolin R) 0 unit SC Q6 [facility] PRN Reason: Protocol Last Admin: 10/11/17 17:38 Dose: 2 units Latanoprost (Xalatan Opht) 0 ml OU HS [facility] Last Admin: 10/11/17 21:27 Dose: 2.5 ml Losartan Potassium (Cozaar) 100 mg PO DAILY [facility] Last Admin: 10/11/17 09:03 Dose: Not Given - Labs Labs: 10/11/17 07:00 10/11/17 07:00 PT 10.9 SECONDS (9.7-12.2) 10/09/17 11:37 INR 1.0 10/09/17 11:37 APTT 26 SECONDS (21-34) 10/03/17 10:30
[2017-10-12] MEDS: Vancomycin 1 gm/NS 200 ml 1 GM/200 ML BAG IVPB SCH ×2 (01:02→12:52)
[2017-10-12] MEDS: Valproate 500 MG in Sodium Chloride 0.9% 100 ML IVPB SCH ×2 (02:45→14:00)
[2017-10-12 04:21] LABS: SQUAMOUS EPITHIAL < 1 /hpf (0-5); URINE BACTERIA RARE (<OCC); URINE BILIRUBIN NEGATIVE (NEGATIVE); URINE BLOOD 2+ (NEGATIVE); URINE CLARITY Hazy (Clear); URINE COLOR Yellow (YELLOW); URINE GLUCOSE (UA) 3+ mg/dL (Normal); URINE HYALINE CAST 0-2 /lpf (0-2); URINE LEUKOCYTE ESTERASE NEG Leu/uL (Negative); URINE PROTEIN NEGATIVE (NEGATIVE); URINE UROBILINOGEN NORMAL mg/dL (0.2-1.0)
[2017-10-12] MEDS: Meropenem IV 1 gm in NS 50 ML IVPB SCH ×3 (04:42→20:41)
[2017-10-12] MEDS: Lactated Ringer's 1,000 ML IV SCH (04:45)
[2017-10-12 05:36] LABS: ARTERIAL BLOOD GAS HCO3 25.4 mmol/L (21-28); ARTERIAL BLOOD GAS O2 SAT 98.3 % (95-98); ARTERIAL BLOOD GAS PCO2 35 mm/Hg (35-45); ARTERIAL BLOOD GAS PH 7.45 (7.35-7.45); ARTERIAL BLOOD GAS PO2 93 mm/Hg (80-100); ARTERIAL BLOOD GAS TCO2 25.4 mmol/L (22-28)
[2017-10-12] MEDS: (Novolin R) Insulin Human Regular 100 units/ml vial SC SCH ×5 (06:15→23:59)
[2017-10-12 06:25] LABS: BASO % 0.5 % (0.0-2.0); EOS # 0.1 K/uL (0.0-0.7); HEMOGLOBIN 11.7 g/dL (11.0-16.0); LYMPH # 1.7 K/uL (1.0-4.3); LYMPH % 19.8 % (20.0-40.0); MEAN CELL VOLUME 85.8 fL (81.0-99.0); MEAN CORPUSCULAR HEMOGLOBIN 29.5 pg (27.0-31.0); MEAN CORPUSCULAR HGB CONC 34.4 g/dL (33.0-37.0); MEAN PLATELET VOLUME 8.5 fL (7.2-11.7); MONO # 0.6 K/uL (0.0-0.8); NEUT % 71.7 % (50.0-75.0); RBC 3.97 Mil/uL (3.80-5.20); RED CELL DISTRIBUTION WIDTH 15.2 % (11.5-14.5); WHITE BLOOD COUNT 8.4 K/uL (4.8-10.8)
[2017-10-12 06:44] LABS: ALT/SGPT 26 U/L (9-52); AST/SGOT 36 U/L (14-36); BLOOD UREA NITROGEN 18 mg/dL (7-17); CALCIUM 8.4 mg/dl (8.6-10.4); GFR AFRICAN-AMERICAN > 60; GFR NON-AFRICAN AMERICAN > 60
--- NOTE | 2017-10-12 07:18 | CP.PCM.PN ---
Subjective - Date & Time of Evaluation Date of Evaluation: 10/12/17 Time of Evaluation: 07:14 - Subjective Subjective: Ms. Diaz was seen and examined at the bedside in ICU. She is on mechanical ventilator on PRVC mode. She spontaneously opens her eyes with right eye non- reactive and left eye reactive but sluggish. Both pupils are equal in size with 4 mm. She is able to follow some simple commands such as opening her mouth, raising her bilateral upper extremities and moving her bilateral toes. Preliminary report of EEG showed normal, no seizure activity noted.There was no untoward events overnight. Objective - Vital Signs/Intake and Output Vital Signs (last 24 hours): Temp Pulse Resp BP Pulse Ox 99.9 F H 76 14 144/66 97 10/12/17 00:00 10/12/17 06:00 10/12/17 06:00 10/12/17 05:56 10/12/17 06:00 Intake and Output: 10/12/17 10/12/17 06:59 18:59 Intake Total 1250 Output Total 990 Balance 260 - Medications Medications: Current Medications Bupropion HCl (Wellbutrin Xl) 150 mg PO DAILY [facility] Last Admin: 10/11/17 09:06 Dose: Not Given Dextrose (Dextrose 50% Inj) 0 ml IV STAT PRN; Protocol PRN Reason: Hypoglycemia Protocol Dextrose (Glutose 15) 0 gm PO ONCE PRN; Protocol PRN Reason: Hypoglycemia Protocol Glucagon (Glucagen Diagnostic Kit) 0 mg IM STAT PRN; Protocol PRN Reason: Hypoglycemia Protocol Meropenem (Merrem Iv 1 Gm Premix) 50 mls @ 100 mls/hr IVPB Q8H [facility] PRN Reason: Protocol Last Admin: 10/12/17 04:42 Dose: 100 mls/hr Vancomycin/Sodium Chloride (Vancomycin 1 Gm/Ns 200 Ml) 1 gm in 200 mls @ 133.333 mls/hr IVPB Q12H [facility] PRN Reason: Protocol Stop: 10/16/17 13:31 Last Admin: 10/12/17 01:02 Dose: 133.333 mls/hr Valproate Sodium 500 mg/ (Sodium Chloride) 105 mls @ 100 mls/hr IVPB Q12H [facility] Last Admin: 10/12/17 02:45 Dose: 100 mls/hr Lactated Ringer's (Lactated Ringer's) 1,000 mls @ 100 mls/hr IV .Q10H [facility] Last Admin: 10/12/17 04:45 Dose: 100 mls/hr Insulin Human Regular (Novolin R) 0 unit SC Q6 [facility] PRN Reason: Protocol Last Admin: 10/12/17 06:15 Dose: 1 units Latanoprost (Xalatan Opht) 0 ml OU HS [facility] Last Admin: 10/11/17 21:27 Dose: 2.5 ml Losartan Potassium (Cozaar) 100 mg PO DAILY [facility] Last Admin: 10/11/17 09:03 Dose: Not Given Pantoprazole Sodium (Protonix Inj) 40 mg IVP DAILY [facility] - Labs Labs: 10/12/17 06:17 10/12/17 06:17 PT 10.9 SECONDS (9.7-12.2) 10/09/17 11:37 INR 1.0 10/09/17 11:37 APTT 26 SECONDS (21-34) 10/03/17 10:30 - Constitutional Appears: No Acute Distress - Head Exam Head Exam: NORMAL INSPECTION - Eye Exam Additional comments: spontaneously opens her eyes with right eye non-reactive and left eye reactive but sluggish. Both pupils are equal in size with 4 mm. - Neurological Exam Neurological Exam: Awake Neuro motor strength exam: Left Upper Extremity: 3, Right Upper Extremity: 3, Left Lower Extremity: 2/1, Right Lower Extremity: 2/1 Additional comments: Neurological improved in comparison from previous examination, able to follow some simple commands such as opening her mouth, raising her bilateral upper extremities and moving her bilateral toes. Assessment and Plan (1) Mental status change Assessment & Plan: Case discussed with Dr. Mota, continue all current medical regimen. Recommend valproic level in am, maintain head of bed elevated at least 30 degrees, normothermic, blood pressure control, and follow any orders from neurosurgery. Status: Acute
--- NOTE | 2017-10-12 09:52 | RAD ---
HISTORY: vented COMPARISON: 10/11/2017 FINDINGS: LUNGS: Shallow lung volumes. The pulmonary central vasculature appears engorged - likely in part due to crowding. No consolidation. PLEURA: No significant pleural effusion identified, no pneumothorax apparent. CARDIOVASCULAR: Mild cardiomegaly-similar OSSEOUS STRUCTURES: No significant abnormalities. VISUALIZED UPPER ABDOMEN: Normal. OTHER FINDINGS: Endotracheal tube tip - at superior clavicular cortex level. Two right neck chest upper abdomen shunt catheters present -similar . The more medial catheter ends blindly - right side of the neck IMPRESSION: Shallow lung volumes. Mild cardiomegaly and probable mild pulmonary venous congestion/are with crowding vascular markings as well. No interval effusions appreciated Two right sided shunt catheters - 1 apparently abandoned -ending blindly right-side of neck. No change here seen
[2017-10-12] MEDS ORDERED: Potassium Phosphate 15 MMOLE in Sodium Chloride 0.9% 250 ML IVPB ONE (10:00)
--- NOTE | 2017-10-12 10:26 | CT ---
PROCEDURE: CT HEAD WITHOUT CONTRAST. HISTORY: Followup WELL SERVICES OPERATOR shunt revision. COMPARISON: Comparison made with prior study 10/11/2017 TECHNIQUE: Contiguous helical/ transaxial computed tomography images were obtained through the head/brain without intravenous contrast. Radiation dose: Total exam DLP = 1059.01 mGy-cm. This CT exam was performed using one or more of the following dose reduction techniques: Automated exposure control, adjustment of the mA and/or kV according to patient size, and/or use of iterative reconstruction technique. . FINDINGS: No acute parenchymal, subarachnoid or extra-axial hemorrhage. Re- demonstrated is in situ WELL SERVICES OPERATOR shunt tube which traverses right frontal sarina hole, right frontal lobe and terminating in the right frontal horn. . Interval decrease in size of small amount of intraventricular air that was seen in the anterior aspect right frontal horn. Ventricles have diminished in size slightly. Persistent mild diffuse/ confluent low-attenuation changes are again seen within the periventricular white matter felt to represent transependymal edema, however these changes have improved as well. No other changes have taken place. . Previously noted postoperative changes right frontoparietal scalp of diminished however the skin closure clayton remain in place. IMPRESSION: Interval slight decrease in size of the ventricles. Persistent but improved transependymal edema
[2017-10-12] MEDS ORDERED: Mannitol 12.5 gm/50 ml Inj IV ONE (11:00)
--- NOTE | 2017-10-12 11:01 | CP.CCUPN ---
<Ernestine Posadas - Last Filed: 10/12/17 10:54> CCU Subjective - Physician Review Subjective (Free Text): Patient was seen and examined at bedside. S/P shunt revision. Off sedation, intubated on PRVC 12/ / 500/ 5. Plan for CPAP trial and extubation CCU Objective - Vital Signs / Intake & Output Vital Signs (Last 4 hours): Vital Signs Pulse Resp BP Pulse Ox 10/12/17 09:54 146/65 10/12/17 07:00 93 H 15 97 10/12/17 06:56 95 H 16 165/78 H 97 Intake and Output (Last 8hrs): Intake & Output 10/11/17 10/12/17 10/12/17 22:59 06:59 14:59 Intake Total 817 850 100 Output Total 735 520 Balance 82 330 100 Weight 211 lb 6.773 oz Intake: Intake, IV Amount 817 850 100 Left Antecubital 817 850 100 Output: Urine 735 520 Urethral (Fernandez) 735 520 Other: # Bowel Movements 1 - Physical Exam Pupils: Positive for: PERRL Extroacular Muscles: Positive for: EOMI Mouth: Positive for: Dry Respiratory/Chest: Positive for: Clear to Auscultation. Negative for: Respiratory Distress Cardiovascular: Positive for: Regular Rate and Rhythm Abdomen: Positive for: Normal Bowel Sounds. Negative for: Tenderness, Distention Upper Extremity: Positive for: Normal Inspection, NORMAL PULSES, Neurovascularly Intact, Capillary Refill < 2s Lower Extremity: Positive for: Normal Inspection, NORMAL PULSES, Neurovascularly Intact, Capillary Refill < 2 s Skin: Positive for: Warm, Dry, Normal Color - Medications Active Medications: Active Medications Generic Name Dose Route Start Last Admin Trade Name Freq PRN Reason Stop Dose Admin Bupropion HCl 150 mg 10/04/17 10:00 10/11/17 09:06 Wellbutrin Xl PO Not Given DAILY MOLLY Dextrose 0 ml 10/03/17 13:28 Dextrose 50% Inj IV STAT PRN Hypoglycemia Protocol Protocol Dextrose 0 gm 10/03/17 13:28 Glutose 15 PO ONCE PRN Hypoglycemia Protocol Protocol Glucagon 0 mg 10/03/17 13:28 Glucagen Diagnostic Kit IM STAT PRN Hypoglycemia Protocol Protocol Meropenem 50 mls @ 100 mls/hr 10/11/17 13:00 10/12/17 04:42 Merrem Iv 1 Gm Premix IVPB 100 mls/hr Q8H MOLLY Administration Protocol Vancomycin/Sodium Chloride 1 gm in 200 mls @ 133.333 mls/hr 10/11/17 13:30 01:02 Vancomycin 1 Gm/Ns 200 Ml IVPB 10/16/17 13:31 133.333 mls/hr Q12H MOLLY Administration Protocol Valproate Sodium 500 mg/ 105 mls @ 100 mls/hr 10/11/17 14:03 10/12/17 02:45 Sodium Chloride IVPB 100 mls/hr Q12H MOLLY Administration Potassium Phosphate 15 mmole/ 255 mls @ 42.5 mls/hr 10/12/17 10:00 10/12/17 09:53 Sodium Chloride IVPB 10/12/17 15:59 42.5 mls/hr ONCE ONE Administration Insulin Human Regular 0 unit 10/11/17 18:00 10/12/17 06:15 Novolin R SC 1 units Q6 MOLLY Administration Protocol Latanoprost 0 ml 10/03/17 22:00 10/11/17 21:27 Xalatan Opht OU 2.5 ml HS MOLLY Administration Losartan Potassium 100 mg 10/04/17 10:00 10/11/17 09:03 Cozaar PO Not Given DAILY MOLLY Mannitol 12.5 gm 10/12/17 11:00 Mannitol IV 10/12/17 11:01 ONCE ONE Pantoprazole Sodium 40 mg 10/12/17 10:00 10/12/17 09:54 Protonix Inj IVP 40 mg DAILY MOLLY Administration - Patient Studies Lab Studies: Microbiology Studies 10/11/17 16:51 Urine Culture - Final Urine No Growth (<1,000 CFU/ML) 10/10/17 14:33 Gram Stain - Final Cerebral Spinal Fluid CSF Culture - Preliminary NO GROWTH AFTER 2 DAYS 10/08/17 11:50 Blood Culture - Preliminary Blood-Venous NO GROWTH AFTER 3 DAYS 10/08/17 11:22 Blood Culture - Preliminary Blood-Venous NO GROWTH AFTER 3 DAYS Lab Studies 10/12/17 10/12/17 10/12/17 Range/Units 06:17 06:17 06:01 WBC 8.4 (4.8-10.8) K/uL RBC 3.97 (3.80-5.20) Mil/uL Hgb 11.7 (11.0-16.0) g/dL Hct 34.0 (34.0-47.0) % MCV 85.8 (81.0-99.0) fL MCH 29.5 (27.0-31.0) pg MCHC 34.4 (33.0-37.0) g/dL RDW 15.2 H (11.5-14.5) % Plt Count 206 (130-400) K/uL MPV 8.5 (7.2-11.7) fL Neut % (Auto) 71.7 (50.0-75.0) % Lymph % (Auto) 19.8 L (20.0-40.0) % [place] % (Auto) 7.0 (0.0-10.0) % Eos % (Auto) 1.0 (0.0-4.0) % Baso % (Auto) 0.5 (0.0-2.0) % Neut # (Auto) 6.0 (1.8-7.0) K/uL Lymph # (Auto) 1.7 (1.0-4.3) K/uL [place] # (Auto) 0.6 (0.0-0.8) K/uL Eos # (Auto) 0.1 (0.0-0.7) K/uL Baso # (Auto) 0.0 (0.0-0.2) K/uL Puncture Site pCO2 (35-45) mm/Hg pO2 (80-100) mm/Hg HCO3 (21-28) mmol/L ABG pH (7.35-7.45) ABG Total CO2 (22-28) mmol/L ABG O2 Saturation (95-98) % ABG Base Excess (-2.0-3.0) mmol/L ABG Hemoglobin (11.7-17.4) g/dL ABG Carboxyhemoglobin (0.5-1.5) % POC ABG HHb (Measured) (0.0-5.0) % ABG Methemoglobin (0.0-3.0) % Alan Test A-a O2 Difference mm/Hg Respiratory Index Hgb O2 Saturation (95.0-98.0) % Vent Mode Mechanical Rate FiO2 % Tidal Volume PEEP Sodium 144 (132-148) mmol/L Potassium 3.3 L (3.6-5.2) mmol/L Chloride 108 H (98-107) mmol/L Carbon Dioxide 26 (22-30) mmol/L Anion Gap 14 (10-20) BUN 18 H (7-17) mg/dL Creatinine 0.7 (0.7-1.2) mg/dL Est GFR ( Amer) > 60 Est GFR (Non-Af Amer) > 60 POC Glucose (mg/dL) 186 H (65-110) mg/dL Random Glucose 171 H (65-105) mg/dL Calcium 8.4 L (8.6-10.4) mg/dl Phosphorus 2.0 L (2.5-4.5) mg/dL Magnesium 2.0 (1.6-2.3) mg/dL Total Bilirubin 0.7 (0.2-1.3) mg/dL AST 36 D (14-36) U/L ALT 26 (9-52) U/L Alkaline Phosphatase 61 (38-126) U/L Total Protein 5.9 L (6.3-8.3) g/dL Albumin 3.0 L (3.5-5.0) g/dL Globulin 2.9 (2.2-3.9) gm/dL Albumin/Globulin Ratio 1.0 (1.0-2.1) Urine Color (YELLOW) Urine Clarity (Clear) Urine pH (5.0-8.0) Ur Specific [place] (1.003-1.030) Urine Protein (NEGATIVE) mg/dL Urine Glucose (UA) (Normal) mg/dL Urine Ketones (NEGATIVE) mg/dL Urine Blood (NEGATIVE) Urine Nitrate (NEGATIVE) Urine Bilirubin (NEGATIVE) Urine Urobilinogen (0.2-1.0) mg/dL Ur Leukocyte Esterase (Negative) Alonso/uL Urine WBC (Auto) (0-5) /hpf Urine RBC (Auto) (0-3) /hpf Ur Squamous Epith Cells (0-5) /hpf Urine Bacteria (<OCC) Hyaline Casts (0-2) /lpf 10/12/17 10/12/17 10/11/17 Range/Units 05:19 04:13 23:32 WBC (4.8-10.8) K/uL RBC (3.80-5.20) Mil/uL Hgb (11.0-16.0) g/dL Hct (34.0-47.0) % MCV (81.0-99.0) fL MCH (27.0-31.0) pg MCHC (33.0-37.0) g/dL RDW (11.5-14.5) % Plt Count (130-400) K/uL MPV (7.2-11.7) fL Neut % (Auto) (50.0-75.0) % Lymph % (Auto) (20.0-40.0) % [place] % (Auto) (0.0-10.0) % Eos % (Auto) (0.0-4.0) % Baso % (Auto) (0.0-2.0) % Neut # (Auto) (1.8-7.0) K/uL Lymph # (Auto) (1.0-4.3) K/uL [place] # (Auto) (0.0-0.8) K/uL Eos # (Auto) (0.0-0.7) K/uL Baso # (Auto) (0.0-0.2) K/uL Puncture Site Rb pCO2 35 (35-45) mm/Hg pO2 93 (80-100) mm/Hg HCO3 25.4 (21-28) mmol/L ABG pH 7.45 (7.35-7.45) ABG Total CO2 25.4 (22-28) mmol/L ABG O2 Saturation 98.3 H (95-98) % ABG Base Excess 0.6 (-2.0-3.0) mmol/L ABG Hemoglobin 12.0 (11.7-17.4) g/dL ABG Carboxyhemoglobin 1.3 (0.5-1.5) % POC ABG HHb (Measured) 1.7 (0.0-5.0) % ABG Methemoglobin 1.1 (0.0-3.0) % Alan Test Na A-a O2 Difference 148.0 mm/Hg Respiratory Index 1.6 Hgb O2 Saturation 95.8 (95.0-98.0) % Vent Mode Prvc Mechanical Rate 12 FiO2 40.0 % Tidal Volume 500 PEEP 5 Sodium (132-148) mmol/L Potassium (3.6-5.2) mmol/L Chloride (98-107) mmol/L Carbon Dioxide (22-30) mmol/L Anion Gap (10-20) BUN (7-17) mg/dL Creatinine (0.7-1.2) mg/dL Est GFR ( Amer) Est GFR (Non-Af Amer) POC Glucose (mg/dL) 191 H (65-110) mg/dL Random Glucose (65-105) mg/dL Calcium (8.6-10.4) mg/dl Phosphorus (2.5-4.5) mg/dL Magnesium (1.6-2.3) mg/dL Total Bilirubin (0.2-1.3) mg/dL AST (14-36) U/L ALT (9-52) U/L Alkaline Phosphatase (38-126) U/L Total Protein (6.3-8.3) g/dL Albumin (3.5-5.0) g/dL Globulin (2.2-3.9) gm/dL Albumin/Globulin Ratio (1.0-2.1) Urine Color Yellow (YELLOW) Urine Clarity Hazy (Clear) Urine pH 6.0 (5.0-8.0) Ur Specific [place] 1.018 (1.003-1.030) Urine Protein Negative (NEGATIVE) mg/dL Urine Glucose (UA) 3+ H (Normal) mg/dL Urine Ketones 1+ H (NEGATIVE) mg/dL Urine Blood 2+ H (NEGATIVE) Urine Nitrate Negative (NEGATIVE) Urine Bilirubin Negative (NEGATIVE) Urine Urobilinogen Normal (0.2-1.0) mg/dL Ur Leukocyte Esterase Neg (Negative) Alonso/uL Urine WBC (Auto) 15 H (0-5) /hpf Urine RBC (Auto) 32 H (0-3) /hpf Ur Squamous Epith Cells < 1 (0-5) /hpf Urine Bacteria Rare (<OCC) Hyaline Casts 0-2 (0-2) /lpf 10/11/17 10/11/17 Range/Units 17:39 17:33 WBC (4.8-10.8) K/uL RBC (3.80-5.20) Mil/uL Hgb (11.0-16.0) g/dL Hct (34.0-47.0) % MCV (81.0-99.0) fL MCH (27.0-31.0) pg MCHC (33.0-37.0) g/dL RDW (11.5-14.5) % Plt Count (130-400) K/uL MPV (7.2-11.7) fL Neut % (Auto) (50.0-75.0) % Lymph % (Auto) (20.0-40.0) % [place] % (Auto) (0.0-10.0) % Eos % (Auto) (0.0-4.0) % Baso % (Auto) (0.0-2.0) % Neut # (Auto) (1.8-7.0) K/uL Lymph # (Auto) (1.0-4.3) K/uL [place] # (Auto) (0.0-0.8) K/uL Eos # (Auto) (0.0-0.7) K/uL Baso # (Auto) (0.0-0.2) K/uL Puncture Site Rb pCO2 35 (35-45) mm/Hg pO2 101 H (80-100) mm/Hg HCO3 23.4 (21-28) mmol/L ABG pH 7.41 (7.35-7.45) ABG Total CO2 23.3 (22-28) mmol/L ABG O2 Saturation 98.4 H (95-98) % ABG Base Excess -1.9 (-2.0-3.0) mmol/L ABG Hemoglobin 12.2 (11.7-17.4) g/dL ABG Carboxyhemoglobin 1.2 (0.5-1.5) % POC ABG HHb (Measured) 1.6 (0.0-5.0) % ABG Methemoglobin 1.2 (0.0-3.0) % Alan Test Na A-a O2 Difference 140.0 mm/Hg Respiratory Index 1.4 Hgb O2 Saturation 95.9 (95.0-98.0) % Vent Mode Prvc Mechanical Rate 12 FiO2 40.0 % Tidal Volume 500 PEEP 5 Sodium (132-148) mmol/L Potassium (3.6-5.2) mmol/L Chloride (98-107) mmol/L Carbon Dioxide (22-30) mmol/L Anion Gap (10-20) BUN (7-17) mg/dL Creatinine (0.7-1.2) mg/dL Est GFR ( Amer) Est GFR (Non-Af Amer) POC Glucose (mg/dL) 235 H (65-110) mg/dL Random Glucose (65-105) mg/dL Calcium (8.6-10.4) mg/dl Phosphorus (2.5-4.5) mg/dL Magnesium (1.6-2.3) mg/dL Total Bilirubin (0.2-1.3) mg/dL AST (14-36) U/L ALT (9-52) U/L Alkaline Phosphatase (38-126) U/L Total Protein (6.3-8.3) g/dL Albumin (3.5-5.0) g/dL Globulin (2.2-3.9) gm/dL Albumin/Globulin Ratio (1.0-2.1) Urine Color (YELLOW) Urine Clarity (Clear) Urine pH (5.0-8.0) Ur Specific [place] (1.003-1.030) Urine Protein (NEGATIVE) mg/dL Urine Glucose (UA) (Normal) mg/dL Urine Ketones (NEGATIVE) mg/dL Urine Blood (NEGATIVE) Urine Nitrate (NEGATIVE) Urine Bilirubin (NEGATIVE) Urine Urobilinogen (0.2-1.0) mg/dL Ur Leukocyte Esterase (Negative) Alonso/uL Urine WBC (Auto) (0-5) /hpf Urine RBC (Auto) (0-3) /hpf Ur Squamous Epith Cells (0-5) /hpf Urine Bacteria (<OCC) Hyaline Casts (0-2) /lpf Laboratory Results - last 24 hr 10/11/17 10/11/17 10/11/17 17:33 17:39 23:32 WBC RBC Hgb Hct MCV MCH MCHC RDW Plt Count MPV Neut % (Auto) Lymph % (Auto) [place] % (Auto) Eos % (Auto) Baso % (Auto) Neut # (Auto) Lymph # (Auto) [place] # (Auto) Eos # (Auto) Baso # (Auto) Puncture Site Rb pCO2 35 pO2 101 H HCO3 23.4 ABG pH 7.41 ABG Total CO2 23.3 ABG O2 Saturation 98.4 H ABG Base Excess -1.9 ABG Hemoglobin 12.2 ABG Carboxyhemoglobin 1.2 POC ABG HHb (Measured) 1.6 ABG Methemoglobin 1.2 Alan Test Na A-a O2 Difference 140.0 Respiratory Index 1.4 Hgb O2 Saturation 95.9 Vent Mode Prvc Mechanical Rate 12 FiO2 40.0 Tidal Volume 500 PEEP 5 Sodium Potassium Chloride Carbon Dioxide Anion Gap BUN Creatinine Est GFR ( Amer) Est GFR (Non-Af Amer) POC Glucose (mg/dL) 235 H 191 H Random Glucose Calcium Phosphorus Magnesium Total Bilirubin AST ALT Alkaline Phosphatase Total Protein Albumin Globulin Albumin/Globulin Ratio Urine Color Urine Clarity Urine pH Ur Specific [place] Urine Protein Urine Glucose (UA) Urine Ketones Urine Blood Urine Nitrate Urine Bilirubin Urine Urobilinogen Ur Leukocyte Esterase Urine WBC (Auto) Urine RBC (Auto) Ur Squamous Epith Cells Urine Bacteria Hyaline Casts 10/12/17 10/12/17 10/12/17 04:13 05:19 06:01 WBC RBC Hgb Hct MCV MCH MCHC RDW Plt Count MPV Neut % (Auto) Lymph % (Auto) [place] % (Auto) Eos % (Auto) Baso % (Auto) Neut # (Auto) Lymph # (Auto) [place] # (Auto) Eos # (Auto) Baso # (Auto) Puncture Site Rb pCO2 35 pO2 93 HCO3 25.4 ABG pH 7.45 ABG Total CO2 25.4 ABG O2 Saturation 98.3 H ABG Base Excess 0.6 ABG Hemoglobin 12.0 ABG Carboxyhemoglobin 1.3 POC ABG HHb (Measured) 1.7 ABG Methemoglobin 1.1 Alan Test Na A-a O2 Difference 148.0 Respiratory Index 1.6 Hgb O2 Saturation 95.8 Vent Mode Prvc Mechanical Rate 12 FiO2 40.0 Tidal Volume 500 PEEP 5 Sodium Potassium Chloride Carbon Dioxide Anion Gap BUN Creatinine Est GFR ( Amer) Est GFR (Non-Af Amer) POC Glucose (mg/dL) 186 H Random Glucose Calcium Phosphorus Magnesium Total Bilirubin AST ALT Alkaline Phosphatase Total Protein Albumin Globulin Albumin/Globulin Ratio Urine Color Yellow Urine Clarity Hazy Urine pH 6.0 Ur Specific [place] 1.018 Urine Protein Negative Urine Glucose (UA) 3+ H Urine Ketones 1+ H Urine Blood 2+ H Urine Nitrate Negative Urine Bilirubin Negative Urine Urobilinogen Normal Ur Leukocyte Esterase Neg Urine WBC (Auto) 15 H Urine RBC (Auto) 32 H Ur Squamous Epith Cells < 1 Urine Bacteria Rare Hyaline Casts 0-2 10/12/17 10/12/17 06:17 06:17 WBC 8.4 RBC 3.97 Hgb 11.7 Hct 34.0 MCV 85.8 MCH 29.5 MCHC 34.4 RDW 15.2 H Plt Count 206 MPV 8.5 Neut % (Auto) 71.7 Lymph % (Auto) 19.8 L [place] % (Auto) 7.0 Eos % (Auto) 1.0 Baso % (Auto) 0.5 Neut # (Auto) 6.0 Lymph # (Auto) 1.7 [place] # (Auto) 0.6 Eos # (Auto) 0.1 Baso # (Auto) 0.0 Puncture Site pCO2 pO2 HCO3 ABG pH ABG Total CO2 ABG O2 Saturation ABG Base Excess ABG Hemoglobin ABG Carboxyhemoglobin POC ABG HHb (Measured) ABG Methemoglobin Alan Test A-a O2 Difference Respiratory Index Hgb O2 Saturation Vent Mode Mechanical Rate FiO2 Tidal Volume PEEP Sodium 144 Potassium 3.3 L Chloride 108 H Carbon Dioxide 26 Anion Gap 14 BUN 18 H Creatinine 0.7 Est GFR ( Amer) > 60 Est GFR (Non-Af Amer) > 60 POC Glucose (mg/dL) Random Glucose 171 H Calcium 8.4 L Phosphorus 2.0 L Magnesium 2.0 Total Bilirubin 0.7 AST 36 D ALT 26 Alkaline Phosphatase 61 Total Protein 5.9 L Albumin 3.0 L Globulin 2.9 Albumin/Globulin Ratio 1.0 Urine Color Urine Clarity Urine pH Ur Specific [place] Urine Protein Urine Glucose (UA) Urine Ketones Urine Blood Urine Nitrate Urine Bilirubin Urine Urobilinogen Ur Leukocyte Esterase Urine WBC (Auto) Urine RBC (Auto) Ur Squamous Epith Cells Urine Bacteria Hyaline Casts Fingerstick Blood Sugar Results: 186 Critical Care Progress Note - Nutrition Nutrition: Nutrition Category Date Time Status NPO Diet [DIET] Diets 10/10/17 Breakfast Active Assessment/Plan - Assessment and Plan (Free Text) Plan: 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 CT head (10/08):Ventricles remain markedly dilated questionably increased slightly in size when compared with prior study 10/06/2017. Findings are consistent with shunt malfunction. There are confluent low-attenuation changes seen in the periventricular white matter most conspicuous in the periatrial/ perioccipital horn regions. . Underlying chronic periventricular white matter ischemic changes may contribute. EEG (10/09): awaiting official report CT head (10/10): Stent malfunction pattern of persistent ventriculomegaly again identified with right frontal shunt unchanged in position. Limited underlying age-related neuro degenerative changes reiterated. No intracranial hemorrhage or worsening of hydrocephalus appreciated at this time. Abd/Pelvis CT (10/11): Reason abdominal wall surgery with postsurgical changes in the anterior abdominal wall and superficial skin [place]. Two partially imaged shunt catheters as described above. Colonic distention with gas and fluid may represent postoperative ileus versus acute colonic ileus. Clinical correlation is recommended. Sub centimeter left thyroid nodule. Dedicated thyroid ultrasound can be obtained for further evaluation as clinically warranted. CT head (10/11): Enlarging ventricles per Dr. Hancock. CSF culture: no growth to date 10/10/17 Started on Meropenem 1gm IVPB q8h (started on 10/11) Started on Vanco 1gm IVPB q12h (started on 10/11) S/P SHINGLE TRIMMER shunt revision with Dr. Hancock. Patient transfer to ICU further evaluation and management. Head Ct 10/12/17: Interval slight decrease in size of the ventricles. Persistent but improved transependymal edema Repeat EEG, mannitol 12.5mg IV x 1 Altered Mental Status likely secondary to NPH Blood cultures negative at 5 days Repeat blood cultures negative at 3 days Urine culture negative Patient is afebrile, no white count Chest X ray - negative Troponin negative Ammonia 11 6/2:as per family; patient is ambulatory and speaks in full coherent sentences and ANOx3 at baseline; currently ANOx2; speaking more clearly, opening eyes. Improving but not at baseline 3: patient is drowsy and not as alert as yesterday; will answer to name and pain, but is otherwise obtunded 10/09: patient is lethargic, responding to pain and some verbal stimuli. Will speak few words. 10/10: patient refusing to wake up. only responding to pain. DM 2 Uncontrolled diabetes Accuchecks QAC and HS Medium Dose insulin sliding scale Will hold home metformin while in the hospital Will continue to monitor and titrate as appropriate HLD Continue statin Asthma Duonebs prn Controlled Not wheezing Hypertension, controlled Norvasc 5mg PO daily Elevated Creatinine - RESOLVED Cr stayed at 1.4 (baseline on 10/03 was 0.7) Continue NS@100mL/hr Continue to monitor Prophylactic measure Protonix 40mg PO daily SCDs Diet: switched to pureed diet. only feed if patient is awake and alert, otherwise NPO. Disposition: Anticipate CPAP weaning trial --> extubation DW Dr. Bolaños, Ernestine Posadas DO, PGY-1 <Chance Tavares - Last Filed: 10/13/17 17:41> CCU Subjective - Physician Review Critical Care Time Spent (in minutes): 45 CCU Objective - Vital Signs / Intake & Output Vital Signs (Last 4 hours): Vital Signs BP 10/12/17 09:54 146/65 Intake and Output (Last 8hrs): Intake & Output 10/11/17 10/12/17 10/12/17 22:59 06:59 14:59 Intake Total 817 850 100 Output Total 735 520 Balance 82 330 100 Weight 211 lb 6.773 oz Intake: Intake, IV Amount 817 850 100 Left Antecubital 817 850 100 Output: Urine 735 520 Urethral (Fernandez) 735 520 Other: # Bowel Movements 1 - Medications Active Medications: Active Medications Generic Name Dose Route Start Last Admin Trade Name Freq PRN Reason Stop Dose Admin Bupropion HCl 150 mg 10/04/17 10:00 10/11/17 09:06 Wellbutrin Xl PO Not Given DAILY MOLLY Dextrose 0 ml 10/03/17 13:28 Dextrose 50% Inj IV STAT PRN Hypoglycemia Protocol Protocol Dextrose 0 gm 10/03/17 13:28 Glutose 15 PO ONCE PRN Hypoglycemia Protocol Protocol Glucagon 0 mg 10/03/17 13:28 Glucagen Diagnostic Kit IM STAT PRN Hypoglycemia Protocol Protocol Meropenem 50 mls @ 100 mls/hr 10/11/17 13:00 10/12/17 04:42 Merrem Iv 1 Gm Premix IVPB 100 mls/hr Q8H MOLLY Administration Protocol Vancomycin/Sodium Chloride 1 gm in 200 mls @ 133.333 mls/hr 10/11/17 13:30 01:02 Vancomycin 1 Gm/Ns 200 Ml IVPB 10/16/17 13:31 133.333 mls/hr Q12H MOLLY Administration Protocol Valproate Sodium 500 mg/ 105 mls @ 100 mls/hr 10/11/17 14:03 10/12/17 02:45 Sodium Chloride IVPB 100 mls/hr Q12H MOLLY Administration Potassium Phosphate 15 mmole/ 255 mls @ 42.5 mls/hr 10/12/17 10:00 10/12/17 09:53 Sodium Chloride IVPB 10/12/17 15:59 42.5 mls/hr ONCE ONE Administration Insulin Human Regular 0 unit 10/11/17 18:00 10/12/17 06:15 Novolin R SC 1 units Q6 MOLLY Administration Protocol Latanoprost 0 ml 10/03/17 22:00 10/11/17 21:27 Xalatan Opht OU 2.5 ml HS MOLLY Administration Losartan Potassium 100 mg 10/04/17 10:00 10/11/17 09:03 Cozaar PO Not Given DAILY MOLLY Pantoprazole Sodium 40 mg 10/12/17 10:00 10/12/17 09:54 Protonix Inj IVP 40 mg DAILY MOLLY Administration - Patient Studies Lab Studies: Microbiology Studies 10/08/17 11:50 Blood Culture - Preliminary Blood-Venous NO GROWTH AFTER 4 DAYS 10/08/17 11:22 Blood Culture - Preliminary Blood-Venous NO GROWTH AFTER 4 DAYS 10/11/17 16:51 Urine Culture - Final Urine No Growth (<1,000 CFU/ML) 10/10/17 14:33 Gram Stain - Final Cerebral Spinal Fluid CSF Culture - Preliminary NO GROWTH AFTER 2 DAYS Lab Studies 10/12/17 10/12/17 10/12/17 Range/Units 06:17 06:17 06:01 WBC 8.4 (4.8-10.8) K/uL RBC 3.97 (3.80-5.20) Mil/uL Hgb 11.7 (11.0-16.0) g/dL Hct 34.0 (34.0-47.0) % MCV 85.8 (81.0-99.0) fL MCH 29.5 (27.0-31.0) pg MCHC 34.4 (33.0-37.0) g/dL RDW 15.2 H (11.5-14.5) % Plt Count 206 (130-400) K/uL MPV 8.5 (7.2-11.7) fL Neut % (Auto) 71.7 (50.0-75.0) % Lymph % (Auto) 19.8 L (20.0-40.0) % [place] % (Auto) 7.0 (0.0-10.0) % Eos % (Auto) 1.0 (0.0-4.0) % Baso % (Auto) 0.5 (0.0-2.0) % Neut # (Auto) 6.0 (1.8-7.0) K/uL Lymph # (Auto) 1.7 (1.0-4.3) K/uL [place] # (Auto) 0.6 (0.0-0.8) K/uL Eos # (Auto) 0.1 (0.0-0.7) K/uL Baso # (Auto) 0.0 (0.0-0.2) K/uL Puncture Site pCO2 (35-45) mm/Hg pO2 (80-100) mm/Hg HCO3 (21-28) mmol/L ABG pH (7.35-7.45) ABG Total CO2 (22-28) mmol/L ABG O2 Saturation (95-98) % ABG Base Excess (-2.0-3.0) mmol/L ABG Hemoglobin (11.7-17.4) g/dL ABG Carboxyhemoglobin (0.5-1.5) % POC ABG HHb (Measured) (0.0-5.0) % ABG Methemoglobin (0.0-3.0) % Alan Test A-a O2 Difference mm/Hg Respiratory Index Hgb O2 Saturation (95.0-98.0) % Vent Mode Mechanical Rate FiO2 % Tidal Volume PEEP Sodium 144 (132-148) mmol/L Potassium 3.3 L (3.6-5.2) mmol/L Chloride 108 H (98-107) mmol/L Carbon Dioxide 26 (22-30) mmol/L Anion Gap 14 (10-20) BUN 18 H (7-17) mg/dL Creatinine 0.7 (0.7-1.2) mg/dL Est GFR ( Amer) > 60 Est GFR (Non-Af Amer) > 60 POC Glucose (mg/dL) 186 H (65-110) mg/dL Random Glucose 171 H (65-105) mg/dL Calcium 8.4 L (8.6-10.4) mg/dl Phosphorus 2.0 L (2.5-4.5) mg/dL Magnesium 2.0 (1.6-2.3) mg/dL Total Bilirubin 0.7 (0.2-1.3) mg/dL AST 36 D (14-36) U/L ALT 26 (9-52) U/L Alkaline Phosphatase 61 (38-126) U/L Total Protein 5.9 L (6.3-8.3) g/dL Albumin 3.0 L (3.5-5.0) g/dL Globulin 2.9 (2.2-3.9) gm/dL Albumin/Globulin Ratio 1.0 (1.0-2.1) Urine Color (YELLOW) Urine Clarity (Clear) Urine pH (5.0-8.0) Ur Specific [place] (1.003-1.030) Urine Protein (NEGATIVE) mg/dL Urine Glucose (UA) (Normal) mg/dL Urine Ketones (NEGATIVE) mg/dL Urine Blood (NEGATIVE) Urine Nitrate (NEGATIVE) Urine Bilirubin (NEGATIVE) Urine Urobilinogen (0.2-1.0) mg/dL Ur Leukocyte Esterase (Negative) Alonso/uL Urine WBC (Auto) (0-5) /hpf Urine RBC (Auto) (0-3) /hpf Ur Squamous Epith Cells (0-5) /hpf Urine Bacteria (<OCC) Hyaline Casts (0-2) /lpf 10/12/17 10/12/17 10/11/17 Range/Units 05:19 04:13 23:32 WBC (4.8-10.8) K/uL RBC (3.80-5.20) Mil/uL Hgb (11.0-16.0) g/dL Hct (34.0-47.0) % MCV (81.0-99.0) fL MCH (27.0-31.0) pg MCHC (33.0-37.0) g/dL RDW (11.5-14.5) % Plt Count (130-400) K/uL MPV (7.2-11.7) fL Neut % (Auto) (50.0-75.0) % Lymph % (Auto) (20.0-40.0) % [place] % (Auto) (0.0-10.0) % Eos % (Auto) (0.0-4.0) % Baso % (Auto) (0.0-2.0) % Neut # (Auto) (1.8-7.0) K/uL Lymph # (Auto) (1.0-4.3) K/uL [place] # (Auto) (0.0-0.8) K/uL Eos # (Auto) (0.0-0.7) K/uL Baso # (Auto) (0.0-0.2) K/uL Puncture Site Rb pCO2 35 (35-45) mm/Hg pO2 93 (80-100) mm/Hg HCO3 25.4 (21-28) mmol/L ABG pH 7.45 (7.35-7.45) ABG Total CO2 25.4 (22-28) mmol/L ABG O2 Saturation 98.3 H (95-98) % ABG Base Excess 0.6 (-2.0-3.0) mmol/L ABG Hemoglobin 12.0 (11.7-17.4) g/dL ABG Carboxyhemoglobin 1.3 (0.5-1.5) % POC ABG HHb (Measured) 1.7 (0.0-5.0) % ABG Methemoglobin 1.1 (0.0-3.0) % Alan Test Na A-a O2 Difference 148.0 mm/Hg Respiratory Index 1.6 Hgb O2 Saturation 95.8 (95.0-98.0) % Vent Mode Prvc Mechanical Rate 12 FiO2 40.0 % Tidal Volume 500 PEEP 5 Sodium (132-148) mmol/L Potassium (3.6-5.2) mmol/L Chloride (98-107) mmol/L Carbon Dioxide (22-30) mmol/L Anion Gap (10-20) BUN (7-17) mg/dL Creatinine (0.7-1.2) mg/dL Est GFR ( Amer) Est GFR (Non-Af Amer) POC Glucose (mg/dL) 191 H (65-110) mg/dL Random Glucose (65-105) mg/dL Calcium (8.6-10.4) mg/dl Phosphorus (2.5-4.5) mg/dL Magnesium (1.6-2.3) mg/dL Total Bilirubin (0.2-1.3) mg/dL AST (14-36) U/L ALT (9-52) U/L Alkaline Phosphatase (38-126) U/L Total Protein (6.3-8.3) g/dL Albumin (3.5-5.0) g/dL Globulin (2.2-3.9) gm/dL Albumin/Globulin Ratio (1.0-2.1) Urine Color Yellow (YELLOW) Urine Clarity Hazy (Clear) Urine pH 6.0 (5.0-8.0) Ur Specific [place] 1.018 (1.003-1.030) Urine Protein Negative (NEGATIVE) mg/dL Urine Glucose (UA) 3+ H (Normal) mg/dL Urine Ketones 1+ H (NEGATIVE) mg/dL Urine Blood 2+ H (NEGATIVE) Urine Nitrate Negative (NEGATIVE) Urine Bilirubin Negative (NEGATIVE) Urine Urobilinogen Normal (0.2-1.0) mg/dL Ur Leukocyte Esterase Neg (Negative) Alonso/uL Urine WBC (Auto) 15 H (0-5) /hpf Urine RBC (Auto) 32 H (0-3) /hpf Ur Squamous Epith Cells < 1 (0-5) /hpf Urine Bacteria Rare (<OCC) Hyaline Casts 0-2 (0-2) /lpf 10/11/17 10/11/17 Range/Units 17:39 17:33 WBC (4.8-10.8) K/uL RBC (3.80-5.20) Mil/uL Hgb (11.0-16.0) g/dL Hct (34.0-47.0) % MCV (81.0-99.0) fL MCH (27.0-31.0) pg MCHC (33.0-37.0) g/dL RDW (11.5-14.5) % Plt Count (130-400) K/uL MPV (7.2-11.7) fL Neut % (Auto) (50.0-75.0) % Lymph % (Auto) (20.0-40.0) % [place] % (Auto) (0.0-10.0) % Eos % (Auto) (0.0-4.0) % Baso % (Auto) (0.0-2.0) % Neut # (Auto) (1.8-7.0) K/uL Lymph # (Auto) (1.0-4.3) K/uL [place] # (Auto) (0.0-0.8) K/uL Eos # (Auto) (0.0-0.7) K/uL Baso # (Auto) (0.0-0.2) K/uL Puncture Site Rb pCO2 35 (35-45) mm/Hg pO2 101 H (80-100) mm/Hg HCO3 23.4 (21-28) mmol/L ABG pH 7.41 (7.35-7.45) ABG Total CO2 23.3 (22-28) mmol/L ABG O2 Saturation 98.4 H (95-98) % ABG Base Excess -1.9 (-2.0-3.0) mmol/L ABG Hemoglobin 12.2 (11.7-17.4) g/dL ABG Carboxyhemoglobin 1.2 (0.5-1.5) % POC ABG HHb (Measured) 1.6 (0.0-5.0) % ABG Methemoglobin 1.2 (0.0-3.0) % Alan Test Na A-a O2 Difference 140.0 mm/Hg Respiratory Index 1.4 Hgb O2 Saturation 95.9 (95.0-98.0) % Vent Mode Prvc Mechanical Rate 12 FiO2 40.0 % Tidal Volume 500 PEEP 5 Sodium (132-148) mmol/L Potassium (3.6-5.2) mmol/L Chloride (98-107) mmol/L Carbon Dioxide (22-30) mmol/L Anion Gap (10-20) BUN (7-17) mg/dL Creatinine (0.7-1.2) mg/dL Est GFR ( Amer) Est GFR (Non-Af Amer) POC Glucose (mg/dL) 235 H (65-110) mg/dL Random Glucose (65-105) mg/dL Calcium (8.6-10.4) mg/dl Phosphorus (2.5-4.5) mg/dL Magnesium (1.6-2.3) mg/dL Total Bilirubin (0.2-1.3) mg/dL AST (14-36) U/L ALT (9-52) U/L Alkaline Phosphatase (38-126) U/L Total Protein (6.3-8.3) g/dL Albumin (3.5-5.0) g/dL Globulin (2.2-3.9) gm/dL Albumin/Globulin Ratio (1.0-2.1) Urine Color (YELLOW) Urine Clarity (Clear) Urine pH (5.0-8.0) Ur Specific [place] (1.003-1.030) Urine Protein (NEGATIVE) mg/dL Urine Glucose (UA) (Normal) mg/dL Urine Ketones (NEGATIVE) mg/dL Urine Blood (NEGATIVE) Urine Nitrate (NEGATIVE) Urine Bilirubin (NEGATIVE) Urine Urobilinogen (0.2-1.0) mg/dL Ur Leukocyte Esterase (Negative) Alonso/uL Urine WBC (Auto) (0-5) /hpf Urine RBC (Auto) (0-3) /hpf Ur Squamous Epith Cells (0-5) /hpf Urine Bacteria (<OCC) Hyaline Casts (0-2) /lpf Laboratory Results - last 24 hr 10/11/17 10/11/17 10/11/17 17:33 17:39 23:32 WBC RBC Hgb Hct MCV MCH MCHC RDW Plt Count MPV Neut % (Auto) Lymph % (Auto) [place] % (Auto) Eos % (Auto) Baso % (Auto) Neut # (Auto) Lymph # (Auto) [place] # (Auto) Eos # (Auto) Baso # (Auto) Puncture Site Rb pCO2 35 pO2 101 H HCO3 23.4 ABG pH 7.41 ABG Total CO2 23.3 ABG O2 Saturation 98.4 H ABG Base Excess -1.9 ABG Hemoglobin 12.2 ABG Carboxyhemoglobin 1.2 POC ABG HHb (Measured) 1.6 ABG Methemoglobin 1.2 Alan Test Na A-a O2 Difference 140.0 Respiratory Index 1.4 Hgb O2 Saturation 95.9 Vent Mode Prvc Mechanical Rate 12 FiO2 40.0 Tidal Volume 500 PEEP 5 Sodium Potassium Chloride Carbon Dioxide Anion Gap BUN Creatinine Est GFR ( Amer) Est GFR (Non-Af Amer) POC Glucose (mg/dL) 235 H 191 H Random Glucose Calcium Phosphorus Magnesium Total Bilirubin AST ALT Alkaline Phosphatase Total Protein Albumin Globulin Albumin/Globulin Ratio Urine Color Urine Clarity Urine pH Ur Specific [place] Urine Protein Urine Glucose (UA) Urine Ketones Urine Blood Urine Nitrate Urine Bilirubin Urine Urobilinogen Ur Leukocyte Esterase Urine WBC (Auto) Urine RBC (Auto) Ur Squamous Epith Cells Urine Bacteria Hyaline Casts 10/12/17 10/12/17 10/12/17 04:13 05:19 06:01 WBC RBC Hgb Hct MCV MCH MCHC RDW Plt Count MPV Neut % (Auto) Lymph % (Auto) [place] % (Auto) Eos % (Auto) Baso % (Auto) Neut # (Auto) Lymph # (Auto) [place] # (Auto) Eos # (Auto) Baso # (Auto) Puncture Site Rb pCO2 35 pO2 93 HCO3 25.4 ABG pH 7.45 ABG Total CO2 25.4 ABG O2 Saturation 98.3 H ABG Base Excess 0.6 ABG Hemoglobin 12.0 ABG Carboxyhemoglobin 1.3 POC ABG HHb (Measured) 1.7 ABG Methemoglobin 1.1 Alan Test Na A-a O2 Difference 148.0 Respiratory Index 1.6 Hgb O2 Saturation 95.8 Vent Mode Prvc Mechanical Rate 12 FiO2 40.0 Tidal Volume 500 PEEP 5 Sodium Potassium Chloride Carbon Dioxide Anion Gap BUN Creatinine Est GFR ( Amer) Est GFR (Non-Af Amer) POC Glucose (mg/dL) 186 H Random Glucose Calcium Phosphorus Magnesium Total Bilirubin AST ALT Alkaline Phosphatase Total Protein Albumin Globulin Albumin/Globulin Ratio Urine Color Yellow Urine Clarity Hazy Urine pH 6.0 Ur Specific [place] 1.018 Urine Protein Negative Urine Glucose (UA) 3+ H Urine Ketones 1+ H Urine Blood 2+ H Urine Nitrate Negative Urine Bilirubin Negative Urine Urobilinogen Normal Ur Leukocyte Esterase Neg Urine WBC (Auto) 15 H Urine RBC (Auto) 32 H Ur Squamous Epith Cells < 1 Urine Bacteria Rare Hyaline Casts 0-2 10/12/17 10/12/17 06:17 06:17 WBC 8.4 RBC 3.97 Hgb 11.7 Hct 34.0 MCV 85.8 MCH 29.5 MCHC 34.4 RDW 15.2 H Plt Count 206 MPV 8.5 Neut % (Auto) 71.7 Lymph % (Auto) 19.8 L [place] % (Auto) 7.0 Eos % (Auto) 1.0 Baso % (Auto) 0.5 Neut # (Auto) 6.0 Lymph # (Auto) 1.7 [place] # (Auto) 0.6 Eos # (Auto) 0.1 Baso # (Auto) 0.0 Puncture Site pCO2 pO2 HCO3 ABG pH ABG Total CO2 ABG O2 Saturation ABG Base Excess ABG Hemoglobin ABG Carboxyhemoglobin POC ABG HHb (Measured) ABG Methemoglobin Alan Test A-a O2 Difference Respiratory Index Hgb O2 Saturation Vent Mode Mechanical Rate FiO2 Tidal Volume PEEP Sodium 144 Potassium 3.3 L Chloride 108 H Carbon Dioxide 26 Anion Gap 14 BUN 18 H Creatinine 0.7 Est GFR ( Amer) > 60 Est GFR (Non-Af Amer) > 60 POC Glucose (mg/dL) Random Glucose 171 H Calcium 8.4 L Phosphorus 2.0 L Magnesium 2.0 Total Bilirubin 0.7 AST 36 D ALT 26 Alkaline Phosphatase 61 Total Protein 5.9 L Albumin 3.0 L Globulin 2.9 Albumin/Globulin Ratio 1.0 Urine Color Urine Clarity Urine pH Ur Specific [place] Urine Protein Urine Glucose (UA) Urine Ketones Urine Blood Urine Nitrate Urine Bilirubin Urine Urobilinogen Ur Leukocyte Esterase Urine WBC (Auto) Urine RBC (Auto) Ur Squamous Epith Cells Urine Bacteria Hyaline Casts Critical Care Progress Note - Nutrition Nutrition: Nutrition Category Date Time Status NPO Diet [DIET] Diets 10/10/17 Breakfast Active Assessment/Plan - Assessment and Plan (Free Text) Plan: Patient seen and examined at bedside PAtient s/p IVD. slow mentation. -Normal pressure hydrocephalus: continue to monitor, 25 mg of manitol x1 -continue ventilation to keep spo2 >92 -continue dvt/pud ppx Above resident note reviewed and verified. Above resident documented my clinical exam and management. - Date & Time Date: 10/12/17 Time: 17:00
--- NOTE | 2017-10-12 11:59 | CP.PCM.PN ---
Subjective - Date & Time of Evaluation Date of Evaluation: 10/12/17 Time of Evaluation: 10:30 - Subjective Subjective: seen and examined.Patient is more responsive.Trying to open her eyes.Trying to follow commands/noted moving her toes and right hand Objective - Vital Signs/Intake and Output Vital Signs (last 24 hours): Temp Pulse Resp BP Pulse Ox 99.9 F H 93 H 15 146/65 97 10/12/17 00:00 10/12/17 07:00 10/12/17 07:00 10/12/17 09:54 10/12/17 07:00 Intake and Output: 10/12/17 10/12/17 06:59 18:59 Intake Total 1250 100 Output Total 990 Balance 260 100 - Medications Medications: Current Medications Bupropion HCl (Wellbutrin Xl) 150 mg PO DAILY [facility] Last Admin: 10/11/17 09:06 Dose: Not Given Dextrose (Dextrose 50% Inj) 0 ml IV STAT PRN; Protocol PRN Reason: Hypoglycemia Protocol Dextrose (Glutose 15) 0 gm PO ONCE PRN; Protocol PRN Reason: Hypoglycemia Protocol Glucagon (Glucagen Diagnostic Kit) 0 mg IM STAT PRN; Protocol PRN Reason: Hypoglycemia Protocol Meropenem (Merrem Iv 1 Gm Premix) 50 mls @ 100 mls/hr IVPB Q8H MOLLY PRN Reason: Protocol Last Admin: 10/12/17 04:42 Dose: 100 mls/hr Vancomycin/Sodium Chloride (Vancomycin 1 Gm/Ns 200 Ml) 1 gm in 200 mls @ 133.333 mls/hr IVPB Q12H MOLLY PRN Reason: Protocol Stop: 10/16/17 13:31 Last Admin: 10/12/17 01:02 Dose: 133.333 mls/hr Valproate Sodium 500 mg/ (Sodium Chloride) 105 mls @ 100 mls/hr IVPB Q12H [facility] Last Admin: 10/12/17 02:45 Dose: 100 mls/hr Potassium Phosphate 15 mmole/ (Sodium Chloride) 255 mls @ 42.5 mls/hr IVPB ONCE ONE Stop: 10/12/17 15:59 Last Admin: 10/12/17 09:53 Dose: 42.5 mls/hr Insulin Human Regular (Novolin R) 0 unit SC Q6 MOLLY PRN Reason: Protocol Last Admin: 10/12/17 06:15 Dose: 1 units Latanoprost (Xalatan Opht) 0 ml OU HS MOLLY Last Admin: 10/11/17 21:27 Dose: 2.5 ml Losartan Potassium (Cozaar) 100 mg PO DAILY MOLLY Last Admin: 10/11/17 09:03 Dose: Not Given Pantoprazole Sodium (Protonix Inj) 40 mg IVP DAILY MOLLY Last Admin: 10/12/17 09:54 Dose: 40 mg - Labs Labs: 10/12/17 06:17 10/12/17 06:17 PT 10.9 SECONDS (9.7-12.2) 10/09/17 11:37 INR 1.0 10/09/17 11:37 APTT 26 SECONDS (21-34) 10/03/17 10:30 - Constitutional Appears: No Acute Distress - Head Exam Head Exam: NORMAL INSPECTION - Eye Exam Eye Exam: Normal appearance Pupil Exam: PERRL - ENT Exam ENT Exam: Mucous Membranes Moist, Normal Exam - Neck Exam Neck Exam: Full ROM - Respiratory Exam Respiratory Exam: Clear to Ausculation Bilateral - Cardiovascular Exam Cardiovascular Exam: REGULAR RHYTHM - GI/Abdominal Exam GI & Abdominal Exam: Soft, Normal Bowel Sounds - Neurological Exam Neurological Exam: Altered (arousable). absent: Awake, Normal Gait, Oriented x3 - Psychiatric Exam Psychiatric exam: absent: Normal Mood - Skin Skin Exam: Dry Assessment and Plan - Assessment and Plan (Free Text) Plan: 1.RN MATERNITY shunt malfunction and change in mental status Patient's Head Ct 10/12/17: Interval slight decrease in size of the ventricles. 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 3.DM 2 Medium Dose insulin sliding scale Will hold home metformin while in the hospital Will continue to monitor and titrate as appropriate 4.HLD 5.Asthma 6.Hypertension 7.Elevated Creatinine - RESOLVED 8.Prophylactic measure
--- NOTE | 2017-10-12 12:16 | CP.PCM.PN ---
Subjective - Date & Time of Evaluation Date of Evaluation: 10/12/17 Time of Evaluation: 12:15 - Subjective Subjective: remains intubated awake alert follows commands DARRION CT from this morning shows vents smaller wean to extubate adv act Objective - Vital Signs/Intake and Output Vital Signs (last 24 hours): Temp Pulse Resp BP Pulse Ox 99.9 F H 93 H 15 146/65 97 10/12/17 00:00 10/12/17 07:00 10/12/17 07:00 10/12/17 09:54 10/12/17 07:00 Intake and Output: 10/12/17 10/12/17 06:59 18:59 Intake Total 1250 100 Output Total 990 Balance 260 100 - Medications Medications: Current Medications Bupropion HCl (Wellbutrin Xl) 150 mg PO DAILY [facility] Last Admin: 10/11/17 09:06 Dose: Not Given Dextrose (Dextrose 50% Inj) 0 ml IV STAT PRN; Protocol PRN Reason: Hypoglycemia Protocol Dextrose (Glutose 15) 0 gm PO ONCE PRN; Protocol PRN Reason: Hypoglycemia Protocol Glucagon (Glucagen Diagnostic Kit) 0 mg IM STAT PRN; Protocol PRN Reason: Hypoglycemia Protocol Meropenem (Merrem Iv 1 Gm Premix) 50 mls @ 100 mls/hr IVPB Q8H MOLLY PRN Reason: Protocol Last Admin: 10/12/17 12:05 Dose: 100 mls/hr Vancomycin/Sodium Chloride (Vancomycin 1 Gm/Ns 200 Ml) 1 gm in 200 mls @ 133.333 mls/hr IVPB Q12H MOLLY PRN Reason: Protocol Stop: 10/16/17 13:31 Last Admin: 10/12/17 01:02 Dose: 133.333 mls/hr Valproate Sodium 500 mg/ (Sodium Chloride) 105 mls @ 100 mls/hr IVPB Q12H [facility] Last Admin: 10/12/17 02:45 Dose: 100 mls/hr Potassium Phosphate 15 mmole/ (Sodium Chloride) 255 mls @ 42.5 mls/hr IVPB ONCE ONE Stop: 10/12/17 15:59 Last Admin: 10/12/17 09:53 Dose: 42.5 mls/hr Insulin Human Regular (Novolin R) 0 unit SC Q6 MOLLY PRN Reason: Protocol Last Admin: 10/12/17 06:15 Dose: 1 units Latanoprost (Xalatan Opht) 0 ml OU HS [facility] Last Admin: 10/11/17 21:27 Dose: 2.5 ml Losartan Potassium (Cozaar) 100 mg PO DAILY [facility] Last Admin: 10/11/17 09:03 Dose: Not Given Pantoprazole Sodium (Protonix Inj) 40 mg IVP DAILY [facility] Last Admin: 10/12/17 09:54 Dose: 40 mg - Labs Labs: 10/12/17 06:17 10/12/17 06:17 PT 10.9 SECONDS (9.7-12.2) 10/09/17 11:37 INR 1.0 10/09/17 11:37 APTT 26 SECONDS (21-34) 10/03/17 10:30
[2017-10-12 18:07] LABS: ALB/GLOB RATIO 1.1 (1.0-2.1); ALBUMIN 3.2 g/dL (3.5-5.0); ALT/SGPT 39 U/L (9-52); AST/SGOT 36 U/L (14-36); BLOOD UREA NITROGEN 18 mg/dL (7-17); CALCIUM 8.4 mg/dl (8.6-10.4); GFR AFRICAN-AMERICAN > 60; GFR NON-AFRICAN AMERICAN > 60
--- NOTE | 2017-10-12 19:50 | CP.PCM.PN ---
Subjective - Date & Time of Evaluation Date of Evaluation: 10/12/17 Time of Evaluation: 01:00 - Subjective Subjective: dictated Objective - Vital Signs/Intake and Output Vital Signs (last 24 hours): Temp Pulse Resp BP Pulse Ox 98.4 F 92 H 15 159/68 H 96 10/12/17 16:00 10/12/17 18:56 10/12/17 18:56 10/12/17 18:56 10/12/17 18:56 Intake and Output: 10/12/17 10/13/17 18:59 06:59 Intake Total 1312.5 42.5 Output Total 2410 150 Balance -1097.5 -107.5 - Medications Medications: Current Medications Bupropion HCl (Wellbutrin Xl) 150 mg PO DAILY [facility] Last Admin: 10/11/17 09:06 Dose: Not Given Dextrose (Dextrose 50% Inj) 0 ml IV STAT PRN; Protocol PRN Reason: Hypoglycemia Protocol Dextrose (Glutose 15) 0 gm PO ONCE PRN; Protocol PRN Reason: Hypoglycemia Protocol Glucagon (Glucagen Diagnostic Kit) 0 mg IM STAT PRN; Protocol PRN Reason: Hypoglycemia Protocol Meropenem (Merrem Iv 1 Gm Premix) 50 mls @ 100 mls/hr IVPB Q8H MOLLY PRN Reason: Protocol Last Admin: 10/12/17 12:05 Dose: 100 mls/hr Vancomycin/Sodium Chloride (Vancomycin 1 Gm/Ns 200 Ml) 1 gm in 200 mls @ 133.333 mls/hr IVPB Q12H MOLLY PRN Reason: Protocol Stop: 10/16/17 13:31 Last Admin: 10/12/17 12:52 Dose: 133.333 mls/hr Valproate Sodium 500 mg/ (Sodium Chloride) 105 mls @ 100 mls/hr IVPB Q12H MOLLY Last Admin: 10/12/17 14:00 Dose: 100 mls/hr Insulin Human Regular (Novolin R) 0 unit SC Q6 MOLLY PRN Reason: Protocol Last Admin: 10/12/17 18:03 Dose: Not Given Latanoprost (Xalatan Opht) 0 ml OU HS MOLLY Last Admin: 10/11/17 21:27 Dose: 2.5 ml Losartan Potassium (Cozaar) 100 mg PO DAILY MOLLY Last Admin: 10/11/17 09:03 Dose: Not Given Pantoprazole Sodium (Protonix Inj) 40 mg IVP DAILY MOLLY Last Admin: 10/12/17 09:54 Dose: 40 mg - Labs Labs: 10/12/17 06:17 10/12/17 17:49 PT 10.9 SECONDS (9.7-12.2) 10/09/17 11:37 INR 1.0 10/09/17 11:37 APTT 26 SECONDS (21-34) 10/03/17 10:30
[2017-10-12] MEDS: Latanoprost 2.5 ml Opht Soln OU SCH (21:07)
--- NOTE | 2017-10-13 00:30 | PN ---
DATE: 10/12/2017 SUBJECTIVE: The patient was little alert today. She still is in ICU and nurse said she had low grade temps, will review that. So at this time, the patient still remains intubated, but followed commands when we asked her to do left to right hand, she would do that. PHYSICAL EXAMINATION: VITAL SIGNS: Had a low grade temp of 99.9, pulse 93, blood pressure 146/65 and respirations are 15. HEENT: Head has a dressing on the scalp, she just had a brain surgery for malfunction of a [employer] shunt and she is intubated. NECK: Supple. LUNGS: Clear. No crackles or rales present. HEART: S1 and S2 are regular. ABDOMEN: Flabby, nontender. Has a dressing in the epigastric area, actually in right upper quadrant. EXTREMITIES: She has Venodyne boots on. LABORATORY DATA: Labs are noted, white count is 8.4, hemoglobin 11.7, hematocrit 34 and platelet count is 206. Sodium is 141, potassium 4.6, chlorides of 104, CO2 is 25, BUN is 18, creatinine is 0.7. Culture, CSF culture is no growth. Urine culture negative. Blood culture, no growth after 4 days on 10/08/2017 and the CSF is negative 2 days. ASSESSMENT AND PLAN: So at this time, since she remains intubated, she is still with altered mental status, status post cranial surgery, will continue with IV antibiotics to make sure she is well covered and will follow with the neurologist as well as the neurosurgeon and the driver license reviewing officer. Naga Milton MD
[2017-10-13] MEDS: Vancomycin 1 gm/NS 200 ml 1 GM/200 ML BAG IVPB SCH ×2 (00:43→13:44)
[2017-10-13] MEDS: Valproate 500 MG in Sodium Chloride 0.9% 100 ML IVPB SCH ×2 (02:20→13:00)
[2017-10-13] MEDS: Meropenem IV 1 gm in NS 50 ML IVPB SCH ×3 (04:55→20:50)
--- NOTE | 2017-10-13 05:24 | CON ---
DATE: 10/11/2017 INFECTIOUS DISEASE CONSULT HISTORY OF PRESENT ILLNESS: The patient is a 66-year-old female. She was seen today on request by the primary, Dr. Florencio Albright. The patient was in ICU, and she is status post neurosurgery. This patient is a 66-year-old female. She has history of normal pressure hydrocephalus. She was admitted on 10/03/2017. She has a past history of hydrocephalus, has a OPERATING THEATRE TECHNICIAN shunt, was brought to the emergency room with confusion and son found her on the floor, does not remember how long she was there, and the patient was confused and this has been going on. Her baseline status has been changing for last 3 weeks, but was worse on that particular day, and in the past, they have noticed that this patient has had revision of the shunt at least 3 times. This is the third time now. In 2014, the shunt was placed, and in 2017, underwent revision, and patient has been more alert but lately has been becoming very confused and so, she underwent another revision of the shunt here and is now in ICU. The son is at the bedside who knows much about the mother's problems says that the shunt was not blocked, the kidney was pressing on it. Hence, they had to revise it. We will look up the OR reports. PAST MEDICAL HISTORY: Significant for hypertension, diabetes, high cholesterol, asthma, normal pressure hydrocephalus. SURGICAL HISTORY: OPERATING THEATRE TECHNICIAN shunt placed by neurosurgeon, Dr. Shepherd, at [facility] and revision was done on 02/24/2017 at [facility], and initial was 2014 as I came to know from the son. MEDICATIONS: Wellbutrin, Norvasc, valsartan, hydrochlorothiazide p.o., simvastatin 40 mg, metformin 1000 b.i.d., meclizine 25 mg, Xalatan eye drops, Humalog, Levemir, Vascepa, and gabapentin, Colace, Dexilant. It looks like she does have some history of gastritis also and neuropathy related to diabetes, hypertension, hypercholesterolemia, asthma, normal pressure hydrocephalus, probably with incontinence. The patient was seen by Dr. Hancock, the neurosurgeon, and on admission, she did not have any fever or chills when she came in. These are taken from the history and physical as the patient is not able to give any information. She is on a ventilator at this time, and lethargic. Eyes: No symptoms reported. She had no chest pain, no respiratory problems, no GI problems. She suffers from urinary incontinence and she had no numbness or tingling. She does not have any easy bruisability. She had no fevers, no chills, came after a fall. There was no history of smoking. She does suffer from high cholesterol, hypertension. She has history of asthma. Neurologically, she has a history of neurological disorders, vertigo, hydrocephalus with shunt. Endocrine and Metabolic: Endocrine disorder is yes, and diabetes type 2 present. Musculoskeletal disorders, none. History of fall. History of substance abuse, no. History of surgery and hydrocephalus is present. ALLERGIES: SHE IS NOT ALLERGIC TO ANY MEDICINE. Her medications here, just empirically I just started her on vancomycin and meropenem, as she is postop, and the culture of the CSF is pending. She is on Wellbutrin which was not given, on Dextrose at this time, on insulin coverage, Lactate Ringers, Xalatan, Losartan, potassium, meropenem, Valproate, vancomycin given, and she is on Xalatan eye drops, lactate ringer, meropenem, valproate sodium, Depakote, which is 500 mg every 12 hours, and vancomycin. PHYSICAL EXAMINATION: VITAL SIGNS: I find her temperature was 99.1, pulse 93, blood pressure 176/95, respirations are 17, and saturations 98%. GENERAL: She is lethargic. There is a dressing on the right parietal area, intubated. NECK: Supple. LUNGS: Clear. No crackles or rales heard. HEART: S1 and S2 regular. CHEST WALL: Symmetrical. ABDOMEN: Soft, nontender. No guarding, no rigidity present. EXTREMITIES: Had Venodyne boots on. LABORATORY DATA: Noted. Labs show white count is 8.7, hemoglobin 12.7, hematocrit 36.7, platelet count is 230. Sodium is 144, potassium is 3.5, chloride is 111, CO2 is 23, anion gap is 14, BUN is 33, creatinine is 1, glucose is 235 at the time I am dictating, last reported, . Spinal fluid CSF, volume was 3, it was clear, wbc was 1, and rbc was 2665, glucose is 128, was high, and total protein was less than 10. There is a spinal fluid cell count there which is unremarkable. UA shows 3+ glucose, and they do no blood gas, lactic acid. Microwise, CSF is negative. Blood is negative. Urine culture is negative. Blood culture is negative. Urine has 10,000, to 50,000 multiple species. Repeat is ordered. Otherwise, cultures are negative. Reports show the surgery which was done and the surgery complete operation. Operative note shows that there is revision of the OPERATING THEATRE TECHNICIAN shunt with programmable valve, oblique C-arm, and then there was revision of ventriculoperitoneal with programmable valve right side malfunctioning OPERATING THEATRE TECHNICIAN shunt, so at this time, microwise, there is a CSF which is negative, 24 hours. At this time, chest x-ray showed she also had an abdominal and a pelvic CT done today and that shows the colon is moderately distended, similar to the previous exam. Findings are consistent with colonic ileus. The small bowel is normal in caliber. She has some ileus problem at this time and there is a peritoneal catheter for the terminus in the right lower quadrant. The colon is moderately distended, so at this time, she has some ileus also developing, and she had a head CT this morning and the head CT again showed a small bubble of air within the right frontal horn consistent with recent shunt revision, ventricles remain dilated with probably diffuse transependymal edema, mild chronic periventricular white matter ischemic changes, may contribute no other change. It just shows some air which is due to recent surgery, and then, she had a chest x-ray done today, and the chest x-ray shows a new ET tube with tip between the clavicle heads. No other significant interval change. So at this time, impression is that this patient is postop after a OPERATING THEATRE TECHNICIAN shunt malfunctioning surgery at this time. We will continue with prophylactic antibiotics until patient recovers, and at this time, they are empirically used, and CSF culture is negative one day but we will wait for final culture report and we will follow. The patient remains with ileus and is being monitored in ICU. Naga Milton MD
[2017-10-13 05:28] LABS: ARTERIAL BLOOD GAS HCO3 26.4 mmol/L (21-28); ARTERIAL BLOOD GAS HEMOGLOBIN 12.1 g/dL (11.7-17.4); ARTERIAL BLOOD GAS PCO2 35 mm/Hg (35-45); ARTERIAL BLOOD GAS PH 7.47 (7.35-7.45); ARTERIAL BLOOD GAS PO2 84 mm/Hg (80-100); ARTERIAL BLOOD GAS TCO2 26.6 mmol/L (22-28)
[2017-10-13] MEDS: (Novolin R) Insulin Human Regular 100 units/ml vial SC SCH ×3 (06:05→17:44)
[2017-10-13 06:26] LABS: BASO # 0.1 K/uL (0.0-0.2); BASO % 0.7 % (0.0-2.0); EOS # 0.1 K/uL (0.0-0.7); EOS % 1.3 % (0.0-4.0); LYMPH # 1.8 K/uL (1.0-4.3); LYMPH % 20.4 % (20.0-40.0); MEAN CELL VOLUME 85.5 fL (81.0-99.0); MEAN CORPUSCULAR HEMOGLOBIN 29.6 pg (27.0-31.0); MEAN CORPUSCULAR HGB CONC 34.6 g/dL (33.0-37.0); MEAN PLATELET VOLUME 8.4 fL (7.2-11.7); MONO # 0.7 K/uL (0.0-0.8); MONO % 7.5 % (0.0-10.0); NEUT # 6.3 K/uL (1.8-7.0); NEUT % 70.1 % (50.0-75.0); RBC 4.05 Mil/uL (3.80-5.20); RED CELL DISTRIBUTION WIDTH 14.9 % (11.5-14.5); WHITE BLOOD COUNT 8.9 K/uL (4.8-10.8)
--- NOTE | 2017-10-13 06:38 | CP.PCM.PN ---
Subjective - Date & Time of Evaluation Date of Evaluation: 10/13/17 Time of Evaluation: 06:38 - Subjective Subjective: Ms. iDaz was seen and examined at the bedside in ICU. She is on mechanical ventilator on PRVC mode.However, she tolerated the trial Cpap yesterday. She spontaneously opens her eyes with right eye sluggish to react and left eye reactive brik.She is able to answer few questions utilizing non-verbal cues such as nodding and shaking her head. Both pupils are equal in size with 4 mm. She is able to follow some simple commands such as opening her mouth, raising her bilateral upper and lower extremities. Repeat CT of the head showed decreasing ventricle size with decreasing transephydymal edema. There was no untoward events overnight. Objective - Vital Signs/Intake and Output Vital Signs (last 24 hours): Temp Pulse Resp BP Pulse Ox 99.4 F 100 H 18 145/89 96 10/13/17 00:00 10/13/17 06:00 10/13/17 06:00 10/13/17 05:56 10/13/17 06:00 Intake and Output: 10/12/17 10/13/17 18:59 06:59 Intake Total 1312.5 527.5 Output Total 2410 775 Balance -1097.5 -247.5 - Medications Medications: Current Medications Bupropion HCl (Wellbutrin Xl) 150 mg PO DAILY [facility] Last Admin: 10/11/17 09:06 Dose: Not Given Dextrose (Dextrose 50% Inj) 0 ml IV STAT PRN; Protocol PRN Reason: Hypoglycemia Protocol Dextrose (Glutose 15) 0 gm PO ONCE PRN; Protocol PRN Reason: Hypoglycemia Protocol Glucagon (Glucagen Diagnostic Kit) 0 mg IM STAT PRN; Protocol PRN Reason: Hypoglycemia Protocol Meropenem (Merrem Iv 1 Gm Premix) 50 mls @ 100 mls/hr IVPB Q8H [facility] PRN Reason: Protocol Last Admin: 10/13/17 04:55 Dose: 100 mls/hr Vancomycin/Sodium Chloride (Vancomycin 1 Gm/Ns 200 Ml) 1 gm in 200 mls @ 133.333 mls/hr IVPB Q12H [facility] PRN Reason: Protocol Stop: 10/16/17 13:31 Last Admin: 10/13/17 00:43 Dose: 133.333 mls/hr Valproate Sodium 500 mg/ (Sodium Chloride) 105 mls @ 100 mls/hr IVPB Q12H [facility] Last Admin: 10/13/17 02:20 Dose: 100 mls/hr Insulin Human Regular (Novolin R) 0 unit SC Q6 [facility] PRN Reason: Protocol Last Admin: 10/13/17 06:05 Dose: 1 units Latanoprost (Xalatan Opht) 0 ml OU HS [facility] Last Admin: 10/12/17 21:07 Dose: 2.5 ml Losartan Potassium (Cozaar) 100 mg PO DAILY [facility] Last Admin: 10/11/17 09:03 Dose: Not Given Pantoprazole Sodium (Protonix Inj) 40 mg IVP DAILY [facility] Last Admin: 10/12/17 09:54 Dose: 40 mg - Labs Labs: 10/13/17 06:12 10/12/17 17:49 PT 10.9 SECONDS (9.7-12.2) 10/09/17 11:37 INR 1.0 10/09/17 11:37 APTT 26 SECONDS (21-34) 10/03/17 10:30 - Constitutional Appears: No Acute Distress - Head Exam Head Exam: NORMAL INSPECTION - Eye Exam Additional comments: right eye sluggish, left eye brisk. - Neurological Exam Neurological Exam: Awake Neuro motor strength exam: Left Upper Extremity: 3, Right Upper Extremity: 3, Left Lower Extremity: 2/1, Right Lower Extremity: 2/1 Additional comments: Neurological improved, able to follow simple commands, sensation is intact. Assessment and Plan (1) Mental status change Assessment & Plan: Case discussed with Dr. Mota, continue all current medical regimen. Pending valproic level, maintain head of bed elevated at least 30 degrees, normothermic , blood pressure control, and follow any orders from neurosurgery. Status: Acute
[2017-10-13 07:09] LABS: ALB/GLOB RATIO 1.1 (1.0-2.1); ALBUMIN 3.2 g/dL (3.5-5.0); ALT/SGPT 23 U/L (9-52); AST/SGOT 34 U/L (14-36); BLOOD UREA NITROGEN 18 mg/dL (7-17); CALCIUM 8.6 mg/dl (8.6-10.4); GFR AFRICAN-AMERICAN > 60; GFR NON-AFRICAN AMERICAN > 60
[2017-10-13] MEDS ORDERED: Potassium Phosphate 15 MMOLE in Sodium Chloride 0.9% 250 ML IVPB ONE (07:59)
[2017-10-13] MEDS ORDERED: Potassium Phosphate 15 MMOLE in Sodium Chloride 0.9% 250 ML IV ONE (08:48)
--- NOTE | 2017-10-13 09:45 | CP.CCUPN ---
<Ernestine Posadas - Last Filed: 10/13/17 09:42> CCU Subjective - Physician Review Subjective (Free Text): Patient was seen and examined at bedside. S/P shunt revision. Off sedation, intubated on PRVC 12/ 40/ 500/ 5. Tolerated CPAP trial 10/13/17 09:42 Successfully extubated at 9AM. CCU Objective - Vital Signs / Intake & Output Vital Signs (Last 4 hours): Vital Signs Pulse Resp BP Pulse Ox 10/13/17 07:00 92 H 13 96 10/13/17 06:57 94 H 19 158/84 H 96 10/13/17 06:00 100 H 18 96 10/13/17 05:56 84 13 145/89 95 Intake and Output (Last 8hrs): Intake & Output 10/12/17 10/13/17 10/13/17 22:59 06:59 14:59 Intake Total 729.5 350 Output Total 1205 380 Balance -475.5 -30 Weight 204 lb 5.896 oz Intake: Intake, IV Amount 729.5 350 Left Antecubital 429.5 350 Left Hand 300 Output: Urine 1205 380 Urethral (Fernandez) 1205 380 Other: # Bowel Movements 1 - Physical Exam Head: Positive for: Normocephalic Pupils: Positive for: PERRL Extroacular Muscles: Positive for: EOMI Mouth: Positive for: Dry Respiratory/Chest: Positive for: Clear to Auscultation. Negative for: Respiratory Distress Cardiovascular: Positive for: Regular Rate and Rhythm Abdomen: Positive for: Normal Bowel Sounds. Negative for: Tenderness, Distention Upper Extremity: Positive for: Normal Inspection, NORMAL PULSES, Neurovascularly Intact, Capillary Refill < 2s Lower Extremity: Positive for: Normal Inspection, NORMAL PULSES, Neurovascularly Intact, Capillary Refill < 2 s Skin: Positive for: Warm, Dry, Normal Color - Medications Active Medications: Active Medications Generic Name Dose Route Start Last Admin Trade Name Freq PRN Reason Stop Dose Admin Bupropion HCl 150 mg 10/04/17 10:00 10/11/17 09:06 Wellbutrin Xl PO Not Given DAILY MOLLY Dextrose 0 ml 10/03/17 13:28 Dextrose 50% Inj IV STAT PRN Hypoglycemia Protocol Protocol Dextrose 0 gm 10/03/17 13:28 Glutose 15 PO ONCE PRN Hypoglycemia Protocol Protocol Glucagon 0 mg 10/03/17 13:28 Glucagen Diagnostic Kit IM STAT PRN Hypoglycemia Protocol Protocol Meropenem 50 mls @ 100 mls/hr 10/11/17 13:00 10/13/17 04:55 Merrem Iv 1 Gm Premix IVPB 100 mls/hr Q8H MOLLY Administration Protocol Vancomycin/Sodium Chloride 1 gm in 200 mls @ 133.333 mls/hr 10/11/17 13:30 00:43 Vancomycin 1 Gm/Ns 200 Ml IVPB 10/16/17 13:31 133.333 mls/hr Q12H MOLLY Administration Protocol Valproate Sodium 500 mg/ 105 mls @ 100 mls/hr 10/11/17 14:03 10/13/17 02:20 Sodium Chloride IVPB 100 mls/hr Q12H MOLLY Administration Potassium Phosphate 15 mmole/ 255 mls @ 42.5 mls/hr 10/13/17 07:59 10/13/17 09:29 Sodium Chloride IVPB 10/13/17 13:58 42.5 mls/hr ONCE ONE Administration Insulin Human Regular 0 unit 10/11/17 18:00 10/13/17 06:05 Novolin R SC 1 units Q6 MOLLY Administration Protocol Latanoprost 0 ml 10/03/17 22:00 10/12/17 21:07 Xalatan Opht OU 2.5 ml HS MOLLY Administration Losartan Potassium 100 mg 10/04/17 10:00 10/11/17 09:03 Cozaar PO Not Given DAILY MOLLY Pantoprazole Sodium 40 mg 10/12/17 10:00 10/12/17 09:54 Protonix Inj IVP 40 mg DAILY MOLLY Administration - Patient Studies Lab Studies: Microbiology Studies 10/12/17 04:13 Urine Culture - Final Urine,Catheterized No Growth (<1,000 CFU/ML) 10/08/17 11:50 Blood Culture - Preliminary Blood-Venous NO GROWTH AFTER 4 DAYS 10/08/17 11:22 Blood Culture - Preliminary Blood-Venous NO GROWTH AFTER 4 DAYS 10/11/17 16:51 Urine Culture - Final Urine No Growth (<1,000 CFU/ML) 10/10/17 14:33 Gram Stain - Final Cerebral Spinal Fluid CSF Culture - Preliminary NO GROWTH AFTER 2 DAYS Lab Studies 10/13/17 10/13/17 10/13/17 Range/Units 06:16 06:16 06:14 WBC (4.8-10.8) K/uL RBC (3.80-5.20) Mil/uL Hgb (11.0-16.0) g/dL Hct (34.0-47.0) % MCV (81.0-99.0) fL MCH (27.0-31.0) pg MCHC (33.0-37.0) g/dL RDW (11.5-14.5) % Plt Count (130-400) K/uL MPV (7.2-11.7) fL Neut % (Auto) (50.0-75.0) % Lymph % (Auto) (20.0-40.0) % Marin % (Auto) (0.0-10.0) % Eos % (Auto) (0.0-4.0) % Baso % (Auto) (0.0-2.0) % Neut # (Auto) (1.8-7.0) K/uL Lymph # (Auto) (1.0-4.3) K/uL Marin # (Auto) (0.0-0.8) K/uL Eos # (Auto) (0.0-0.7) K/uL Baso # (Auto) (0.0-0.2) K/uL Puncture Site pCO2 (35-45) mm/Hg pO2 (80-100) mm/Hg HCO3 (21-28) mmol/L ABG pH (7.35-7.45) ABG Total CO2 (22-28) mmol/L ABG O2 Saturation (95-98) % ABG Base Excess (-2.0-3.0) mmol/L ABG Hemoglobin (11.7-17.4) g/dL ABG Carboxyhemoglobin (0.5-1.5) % POC ABG HHb (Measured) (0.0-5.0) % ABG Methemoglobin (0.0-3.0) % Alan Test A-a O2 Difference mm/Hg Respiratory Index Hgb O2 Saturation (95.0-98.0) % Vent Mode Mechanical Rate FiO2 % Tidal Volume PEEP Sodium 144 (132-148) mmol/L Potassium 3.3 L (3.6-5.2) mmol/L Chloride 106 (98-107) mmol/L Carbon Dioxide 27 (22-30) mmol/L Anion Gap 14 (10-20) BUN 18 H (7-17) mg/dL Creatinine 0.7 (0.7-1.2) mg/dL Est GFR ( Amer) > 60 Est GFR (Non-Af Amer) > 60 POC Glucose (mg/dL) (65-110) mg/dL Random Glucose 168 H (65-105) mg/dL Serum Osmolality 305 H (272-300) mosm/kg Calcium 8.6 (8.6-10.4) mg/dl Phosphorus 2.1 L (2.5-4.5) mg/dL Magnesium 1.9 (1.6-2.3) mg/dL Total Bilirubin 0.6 (0.2-1.3) mg/dL AST 34 (14-36) U/L ALT 23 (9-52) U/L Alkaline Phosphatase 67 (38-126) U/L Total Protein 6.1 L (6.3-8.3) g/dL Albumin 3.2 L (3.5-5.0) g/dL Globulin 2.9 (2.2-3.9) gm/dL Albumin/Globulin Ratio 1.1 (1.0-2.1) Valproic Acid 29.8 L (50.0-100.0) ug/mL 10/13/17 10/13/17 10/13/17 Range/Units 06:12 05:54 05:10 WBC 8.9 (4.8-10.8) K/uL RBC 4.05 (3.80-5.20) Mil/uL Hgb 12.0 (11.0-16.0) g/dL Hct 34.6 (34.0-47.0) % MCV 85.5 (81.0-99.0) fL MCH 29.6 (27.0-31.0) pg MCHC 34.6 (33.0-37.0) g/dL RDW 14.9 H (11.5-14.5) % Plt Count 209 (130-400) K/uL MPV 8.4 (7.2-11.7) fL Neut % (Auto) 70.1 (50.0-75.0) % Lymph % (Auto) 20.4 (20.0-40.0) % Marin % (Auto) 7.5 (0.0-10.0) % Eos % (Auto) 1.3 (0.0-4.0) % Baso % (Auto) 0.7 (0.0-2.0) % Neut # (Auto) 6.3 (1.8-7.0) K/uL Lymph # (Auto) 1.8 (1.0-4.3) K/uL Marin # (Auto) 0.7 (0.0-0.8) K/uL Eos # (Auto) 0.1 (0.0-0.7) K/uL Baso # (Auto) 0.1 (0.0-0.2) K/uL Puncture Site Rb pCO2 35 (35-45) mm/Hg pO2 84 (80-100) mm/Hg HCO3 26.4 (21-28) mmol/L ABG pH 7.47 H (7.35-7.45) ABG Total CO2 26.6 (22-28) mmol/L ABG O2 Saturation 98.0 (95-98) % ABG Base Excess 2.0 (-2.0-3.0) mmol/L ABG Hemoglobin 12.1 (11.7-17.4) g/dL ABG Carboxyhemoglobin 1.7 H (0.5-1.5) % POC ABG HHb (Measured) 1.9 (0.0-5.0) % ABG Methemoglobin 1.1 (0.0-3.0) % Alan Test Na A-a O2 Difference 86.0 mm/Hg Respiratory Index 1.0 Hgb O2 Saturation 95.3 (95.0-98.0) % Vent Mode Prvc Mechanical Rate 12 FiO2 30.0 % Tidal Volume 500 PEEP 5 Sodium (132-148) mmol/L Potassium (3.6-5.2) mmol/L Chloride (98-107) mmol/L Carbon Dioxide (22-30) mmol/L Anion Gap (10-20) BUN (7-17) mg/dL Creatinine (0.7-1.2) mg/dL Est GFR ( Amer) Est GFR (Non-Af Amer) POC Glucose (mg/dL) 187 H (65-110) mg/dL Random Glucose (65-105) mg/dL Serum Osmolality (272-300) mosm/kg Calcium (8.6-10.4) mg/dl Phosphorus (2.5-4.5) mg/dL Magnesium (1.6-2.3) mg/dL Total Bilirubin (0.2-1.3) mg/dL AST (14-36) U/L ALT (9-52) U/L Alkaline Phosphatase (38-126) U/L Total Protein (6.3-8.3) g/dL Albumin (3.5-5.0) g/dL Globulin (2.2-3.9) gm/dL Albumin/Globulin Ratio (1.0-2.1) Valproic Acid (50.0-100.0) ug/mL 10/12/17 10/12/17 10/12/17 Range/Units 23:27 17:56 17:49 WBC (4.8-10.8) K/uL RBC (3.80-5.20) Mil/uL Hgb (11.0-16.0) g/dL Hct (34.0-47.0) % MCV (81.0-99.0) fL MCH (27.0-31.0) pg MCHC (33.0-37.0) g/dL RDW (11.5-14.5) % Plt Count (130-400) K/uL MPV (7.2-11.7) fL Neut % (Auto) (50.0-75.0) % Lymph % (Auto) (20.0-40.0) % Marin % (Auto) (0.0-10.0) % Eos % (Auto) (0.0-4.0) % Baso % (Auto) (0.0-2.0) % Neut # (Auto) (1.8-7.0) K/uL Lymph # (Auto) (1.0-4.3) K/uL Marin # (Auto) (0.0-0.8) K/uL Eos # (Auto) (0.0-0.7) K/uL Baso # (Auto) (0.0-0.2) K/uL Puncture Site pCO2 (35-45) mm/Hg pO2 (80-100) mm/Hg HCO3 (21-28) mmol/L ABG pH (7.35-7.45) ABG Total CO2 (22-28) mmol/L ABG O2 Saturation (95-98) % ABG Base Excess (-2.0-3.0) mmol/L ABG Hemoglobin (11.7-17.4) g/dL ABG Carboxyhemoglobin (0.5-1.5) % POC ABG HHb (Measured) (0.0-5.0) % ABG Methemoglobin (0.0-3.0) % Alan Test A-a O2 Difference mm/Hg Respiratory Index Hgb O2 Saturation (95.0-98.0) % Vent Mode Mechanical Rate FiO2 % Tidal Volume PEEP Sodium (132-148) mmol/L Potassium (3.6-5.2) mmol/L Chloride (98-107) mmol/L Carbon Dioxide (22-30) mmol/L Anion Gap (10-20) BUN (7-17) mg/dL Creatinine (0.7-1.2) mg/dL Est GFR ( Amer) Est GFR (Non-Af Amer) POC Glucose (mg/dL) 212 H 233 H (65-110) mg/dL Random Glucose (65-105) mg/dL Serum Osmolality 306 H (272-300) mosm/kg Calcium (8.6-10.4) mg/dl Phosphorus (2.5-4.5) mg/dL Magnesium (1.6-2.3) mg/dL Total Bilirubin (0.2-1.3) mg/dL AST (14-36) U/L ALT (9-52) U/L Alkaline Phosphatase (38-126) U/L Total Protein (6.3-8.3) g/dL Albumin (3.5-5.0) g/dL Globulin (2.2-3.9) gm/dL Albumin/Globulin Ratio (1.0-2.1) Valproic Acid (50.0-100.0) ug/mL 10/12/17 10/12/17 Range/Units 17:49 12:34 WBC (4.8-10.8) K/uL RBC (3.80-5.20) Mil/uL Hgb (11.0-16.0) g/dL Hct (34.0-47.0) % MCV (81.0-99.0) fL MCH (27.0-31.0) pg MCHC (33.0-37.0) g/dL RDW (11.5-14.5) % Plt Count (130-400) K/uL MPV (7.2-11.7) fL Neut % (Auto) (50.0-75.0) % Lymph % (Auto) (20.0-40.0) % Marin % (Auto) (0.0-10.0) % Eos % (Auto) (0.0-4.0) % Baso % (Auto) (0.0-2.0) % Neut # (Auto) (1.8-7.0) K/uL Lymph # (Auto) (1.0-4.3) K/uL Marin # (Auto) (0.0-0.8) K/uL Eos # (Auto) (0.0-0.7) K/uL Baso # (Auto) (0.0-0.2) K/uL Puncture Site pCO2 (35-45) mm/Hg pO2 (80-100) mm/Hg HCO3 (21-28) mmol/L ABG pH (7.35-7.45) ABG Total CO2 (22-28) mmol/L ABG O2 Saturation (95-98) % ABG Base Excess (-2.0-3.0) mmol/L ABG Hemoglobin (11.7-17.4) g/dL ABG Carboxyhemoglobin (0.5-1.5) % POC ABG HHb (Measured) (0.0-5.0) % ABG Methemoglobin (0.0-3.0) % Alan Test A-a O2 Difference mm/Hg Respiratory Index Hgb O2 Saturation (95.0-98.0) % Vent Mode Mechanical Rate FiO2 % Tidal Volume PEEP Sodium 141 (132-148) mmol/L Potassium 4.9 (3.6-5.2) mmol/L Chloride 104 (98-107) mmol/L Carbon Dioxide 25 (22-30) mmol/L Anion Gap 17 (10-20) BUN 18 H (7-17) mg/dL Creatinine 0.7 (0.7-1.2) mg/dL Est GFR ( Amer) > 60 Est GFR (Non-Af Amer) > 60 POC Glucose (mg/dL) 228 H (65-110) mg/dL Random Glucose 226 H (65-105) mg/dL Serum Osmolality (272-300) mosm/kg Calcium 8.4 L (8.6-10.4) mg/dl Phosphorus 3.2 (2.5-4.5) mg/dL Magnesium 1.8 (1.6-2.3) mg/dL Total Bilirubin 0.9 (0.2-1.3) mg/dL AST 36 (14-36) U/L ALT 39 (9-52) U/L Alkaline Phosphatase 69 (38-126) U/L Total Protein 6.1 L (6.3-8.3) g/dL Albumin 3.2 L (3.5-5.0) g/dL Globulin 2.9 (2.2-3.9) gm/dL Albumin/Globulin Ratio 1.1 (1.0-2.1) Valproic Acid (50.0-100.0) ug/mL Laboratory Results - last 24 hr 10/12/17 10/12/17 10/12/17 12:34 17:49 17:49 WBC RBC Hgb Hct MCV MCH MCHC RDW Plt Count MPV Neut % (Auto) Lymph % (Auto) Marin % (Auto) Eos % (Auto) Baso % (Auto) Neut # (Auto) Lymph # (Auto) Marin # (Auto) Eos # (Auto) Baso # (Auto) Puncture Site pCO2 pO2 HCO3 ABG pH ABG Total CO2 ABG O2 Saturation ABG Base Excess ABG Hemoglobin ABG Carboxyhemoglobin POC ABG HHb (Measured) ABG Methemoglobin Alan Test A-a O2 Difference Respiratory Index Hgb O2 Saturation Vent Mode Mechanical Rate FiO2 Tidal Volume PEEP Sodium 141 Potassium 4.9 Chloride 104 Carbon Dioxide 25 Anion Gap 17 BUN 18 H Creatinine 0.7 Est GFR ( Amer) > 60 Est GFR (Non-Af Amer) > 60 POC Glucose (mg/dL) 228 H Random Glucose 226 H Serum Osmolality 306 H Calcium 8.4 L Phosphorus 3.2 Magnesium 1.8 Total Bilirubin 0.9 AST 36 ALT 39 Alkaline Phosphatase 69 Total Protein 6.1 L Albumin 3.2 L Globulin 2.9 Albumin/Globulin Ratio 1.1 Valproic Acid 06/11/2210/12/17 10/13/17 17:56 23:27 05:10 WBC RBC Hgb Hct MCV MCH MCHC RDW Plt Count MPV Neut % (Auto) Lymph % (Auto) Marin % (Auto) Eos % (Auto) Baso % (Auto) Neut # (Auto) Lymph # (Auto) Marin # (Auto) Eos # (Auto) Baso # (Auto) Puncture Site Rb pCO2 35 pO2 84 HCO3 26.4 ABG pH 7.47 H ABG Total CO2 26.6 ABG O2 Saturation 98.0 ABG Base Excess 2.0 ABG Hemoglobin 12.1 ABG Carboxyhemoglobin 1.7 H POC ABG HHb (Measured) 1.9 ABG Methemoglobin 1.1 Alan Test Na A-a O2 Difference 86.0 Respiratory Index 1.0 Hgb O2 Saturation 95.3 Vent Mode Prvc Mechanical Rate 12 FiO2 30.0 Tidal Volume 500 PEEP 5 Sodium Potassium Chloride Carbon Dioxide Anion Gap BUN Creatinine Est GFR ( Amer) Est GFR (Non-Af Amer) POC Glucose (mg/dL) 233 H 212 H Random Glucose Serum Osmolality Calcium Phosphorus Magnesium Total Bilirubin AST ALT Alkaline Phosphatase Total Protein Albumin Globulin Albumin/Globulin Ratio Valproic Acid 10/13/17 10/13/17 10/13/17 05:54 06:12 06:14 WBC 8.9 RBC 4.05 Hgb 12.0 Hct 34.6 MCV 85.5 MCH 29.6 MCHC 34.6 RDW 14.9 H Plt Count 209 MPV 8.4 Neut % (Auto) 70.1 Lymph % (Auto) 20.4 Marin % (Auto) 7.5 Eos % (Auto) 1.3 Baso % (Auto) 0.7 Neut # (Auto) 6.3 Lymph # (Auto) 1.8 Marin # (Auto) 0.7 Eos # (Auto) 0.1 Baso # (Auto) 0.1 Puncture Site pCO2 pO2 HCO3 ABG pH ABG Total CO2 ABG O2 Saturation ABG Base Excess ABG Hemoglobin ABG Carboxyhemoglobin POC ABG HHb (Measured) ABG Methemoglobin Alan Test A-a O2 Difference Respiratory Index Hgb O2 Saturation Vent Mode Mechanical Rate FiO2 Tidal Volume PEEP Sodium 144 Potassium 3.3 L Chloride 106 Carbon Dioxide 27 Anion Gap 14 BUN 18 H Creatinine 0.7 Est GFR ( Amer) > 60 Est GFR (Non-Af Amer) > 60 POC Glucose (mg/dL) 187 H Random Glucose 168 H Serum Osmolality Calcium 8.6 Phosphorus 2.1 L Magnesium 1.9 Total Bilirubin 0.6 AST 34 ALT 23 Alkaline Phosphatase 67 Total Protein 6.1 L Albumin 3.2 L Globulin 2.9 Albumin/Globulin Ratio 1.1 Valproic Acid 10/13/17 10/13/17 06:16 06:16 WBC RBC Hgb Hct MCV MCH MCHC RDW Plt Count MPV Neut % (Auto) Lymph % (Auto) Marin % (Auto) Eos % (Auto) Baso % (Auto) Neut # (Auto) Lymph # (Auto) Marin # (Auto) Eos # (Auto) Baso # (Auto) Puncture Site pCO2 pO2 HCO3 ABG pH ABG Total CO2 ABG O2 Saturation ABG Base Excess ABG Hemoglobin ABG Carboxyhemoglobin POC ABG HHb (Measured) ABG Methemoglobin Alan Test A-a O2 Difference Respiratory Index Hgb O2 Saturation Vent Mode Mechanical Rate FiO2 Tidal Volume PEEP Sodium Potassium Chloride Carbon Dioxide Anion Gap BUN Creatinine Est GFR ( Amer) Est GFR (Non-Af Amer) POC Glucose (mg/dL) Random Glucose Serum Osmolality 305 H Calcium Phosphorus Magnesium Total Bilirubin AST ALT Alkaline Phosphatase Total Protein Albumin Globulin Albumin/Globulin Ratio Valproic Acid 29.8 L Fingerstick Blood Sugar Results: 187 Critical Care Progress Note - Nutrition Nutrition: Nutrition Category Date Time Status NPO Diet [DIET] Diets 10/10/17 Breakfast Active Assessment/Plan - Assessment and Plan (Free Text) Plan: 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 CT head (10/08):Ventricles remain markedly dilated questionably increased slightly in size when compared with prior study 10/06/2017. Findings are consistent with shunt malfunction. There are confluent low-attenuation changes seen in the periventricular white matter most conspicuous in the periatrial/ perioccipital horn regions. . Underlying chronic periventricular white matter ischemic changes may contribute. EEG (10/09): awaiting official report CT head (10/10): Stent malfunction pattern of persistent ventriculomegaly again identified with right frontal shunt unchanged in position. Limited underlying age-related neuro degenerative changes reiterated. No intracranial hemorrhage or worsening of hydrocephalus appreciated at this time. Abd/Pelvis CT (10/11): Reason abdominal wall surgery with postsurgical changes in the anterior abdominal wall and superficial skin clayton. Two partially imaged shunt catheters as described above. Colonic distention with gas and fluid may represent postoperative ileus versus acute colonic ileus. Clinical correlation is recommended. Sub centimeter left thyroid nodule. Dedicated thyroid ultrasound can be obtained for further evaluation as clinically warranted. CT head (10/11): Enlarging ventricles per Dr. Hancock. CSF culture: no growth to date 10/10/17 Started on Meropenem 1gm IVPB q8h (started on 10/11) Started on Vanco 1gm IVPB q12h (started on 10/11) S/P [employer] shunt revision with Dr. Hancock. Patient transfer to ICU further evaluation and management. Head Ct 10/12/17: Interval slight decrease in size of the ventricles. Persistent but improved transependymal edema Repeat EEG, mannitol 12.5mg IV x 1 Altered Mental Status likely secondary to NPH Blood cultures negative at 5 days Repeat blood cultures negative at 3 days Urine culture negative Patient is afebrile, no white count Chest X ray - negative Troponin negative Ammonia 11 6/2:as per family; patient is ambulatory and speaks in full coherent sentences and ANOx3 at baseline; currently ANOx2; speaking more clearly, opening eyes. Improving but not at baseline 6/3: patient is drowsy and not as alert as yesterday; will answer to name and pain, but is otherwise obtunded 6/4: patient is lethargic, responding to pain and some verbal stimuli. Will speak few words. 10/10: patient refusing to wake up. only responding to pain. DM 2 Uncontrolled diabetes Accuchecks QAC and HS Medium Dose insulin sliding scale Will hold home metformin while in the hospital Will continue to monitor and titrate as appropriate HLD Continue statin Asthma Duonebs prn Controlled Not wheezing Hypertension, controlled Norvasc 5mg PO daily Elevated Creatinine - RESOLVED Cr stayed at 1.4 (baseline on 10/03 was 0.7) Continue NS@100mL/hr Continue to monitor Prophylactic measure Protonix 40mg PO daily SCDs Diet: NPO, NGT in place Disposition: Extubated - will continue to observe in ICU, NGT in place. DW Dr. Arnulfo Tavares, Ernestine Posadas DO, PGY-1 <Chance Tavares - Last Filed: 10/13/17 10:23> CCU Subjective - Physician Review Critical Care Time Spent (in minutes): 35 CCU Objective - Vital Signs / Intake & Output Vital Signs (Last 4 hours): Vital Signs Pulse Resp BP Pulse Ox 10/13/17 07:00 92 H 13 96 10/13/17 06:57 94 H 19 158/84 H 96 Intake and Output (Last 8hrs): Intake & Output 10/12/17 10/13/17 10/13/17 22:59 06:59 14:59 Intake Total 729.5 350 Output Total 1205 380 Balance -475.5 -30 Weight 204 lb 5.896 oz Intake: Intake, IV Amount 729.5 350 Left Antecubital 429.5 350 Left Hand 300 Output: Urine 1205 380 Urethral (Fernandez) 1205 380 Other: # Bowel Movements 1 - Medications Active Medications: Active Medications Generic Name Dose Route Start Last Admin Trade Name Freq PRN Reason Stop Dose Admin Bupropion HCl 150 mg 10/04/17 10:00 10/11/17 09:06 Wellbutrin Xl PO Not Given DAILY MOLLY Dextrose 0 ml 10/03/17 13:28 Dextrose 50% Inj IV STAT PRN Hypoglycemia Protocol Protocol Dextrose 0 gm 10/03/17 13:28 Glutose 15 PO ONCE PRN Hypoglycemia Protocol Protocol Glucagon 0 mg 10/03/17 13:28 Glucagen Diagnostic Kit IM STAT PRN Hypoglycemia Protocol Protocol Meropenem 50 mls @ 100 mls/hr 10/11/17 13:00 10/13/17 04:55 Merrem Iv 1 Gm Premix IVPB 100 mls/hr Q8H MOLLY Administration Protocol Vancomycin/Sodium Chloride 1 gm in 200 mls @ 133.333 mls/hr 10/11/17 13:30 00:43 Vancomycin 1 Gm/Ns 200 Ml IVPB 10/16/17 13:31 133.333 mls/hr Q12H MOLLY Administration Protocol Valproate Sodium 500 mg/ 105 mls @ 100 mls/hr 10/11/17 14:03 10/13/17 02:20 Sodium Chloride IVPB 100 mls/hr Q12H MOLLY Administration Potassium Phosphate 15 mmole/ 255 mls @ 42.5 mls/hr 10/13/17 07:59 10/13/17 09:29 Sodium Chloride IVPB 10/13/17 13:58 42.5 mls/hr ONCE ONE Administration Insulin Human Regular 0 unit 10/11/17 18:00 10/13/17 06:05 Novolin R SC 1 units Q6 MOLLY Administration Protocol Latanoprost 0 ml 10/03/17 22:00 10/12/17 21:07 Xalatan Opht OU 2.5 ml HS MOLLY Administration Losartan Potassium 100 mg 10/04/17 10:00 10/11/17 09:03 Cozaar PO Not Given DAILY MOLLY Pantoprazole Sodium 40 mg 10/12/17 10:00 10/12/17 09:54 Protonix Inj IVP 40 mg DAILY MOLLY Administration - Patient Studies Lab Studies: Microbiology Studies 10/12/17 04:13 Urine Culture - Final Urine,Catheterized No Growth (<1,000 CFU/ML) 10/08/17 11:50 Blood Culture - Preliminary Blood-Venous NO GROWTH AFTER 4 DAYS 10/08/17 11:22 Blood Culture - Preliminary Blood-Venous NO GROWTH AFTER 4 DAYS 10/11/17 16:51 Urine Culture - Final Urine No Growth (<1,000 CFU/ML) 10/10/17 14:33 Gram Stain - Final Cerebral Spinal Fluid CSF Culture - Preliminary NO GROWTH AFTER 2 DAYS Lab Studies 10/13/17 10/13/17 10/13/17 Range/Units 06:16 06:16 06:14 WBC (4.8-10.8) K/uL RBC (3.80-5.20) Mil/uL Hgb (11.0-16.0) g/dL Hct (34.0-47.0) % MCV (81.0-99.0) fL MCH (27.0-31.0) pg MCHC (33.0-37.0) g/dL RDW (11.5-14.5) % Plt Count (130-400) K/uL MPV (7.2-11.7) fL Neut % (Auto) (50.0-75.0) % Lymph % (Auto) (20.0-40.0) % Marin % (Auto) (0.0-10.0) % Eos % (Auto) (0.0-4.0) % Baso % (Auto) (0.0-2.0) % Neut # (Auto) (1.8-7.0) K/uL Lymph # (Auto) (1.0-4.3) K/uL Marin # (Auto) (0.0-0.8) K/uL Eos # (Auto) (0.0-0.7) K/uL Baso # (Auto) (0.0-0.2) K/uL Puncture Site pCO2 (35-45) mm/Hg pO2 (80-100) mm/Hg HCO3 (21-28) mmol/L ABG pH (7.35-7.45) ABG Total CO2 (22-28) mmol/L ABG O2 Saturation (95-98) % ABG Base Excess (-2.0-3.0) mmol/L ABG Hemoglobin (11.7-17.4) g/dL ABG Carboxyhemoglobin (0.5-1.5) % POC ABG HHb (Measured) (0.0-5.0) % ABG Methemoglobin (0.0-3.0) % Alan Test A-a O2 Difference mm/Hg Respiratory Index Hgb O2 Saturation (95.0-98.0) % Vent Mode Mechanical Rate FiO2 % Tidal Volume PEEP Sodium 144 (132-148) mmol/L Potassium 3.3 L (3.6-5.2) mmol/L Chloride 106 (98-107) mmol/L Carbon Dioxide 27 (22-30) mmol/L Anion Gap 14 (10-20) BUN 18 H (7-17) mg/dL Creatinine 0.7 (0.7-1.2) mg/dL Est GFR ( Amer) > 60 Est GFR (Non-Af Amer) > 60 POC Glucose (mg/dL) (65-110) mg/dL Random Glucose 168 H (65-105) mg/dL Serum Osmolality 305 H (272-300) mosm/kg Calcium 8.6 (8.6-10.4) mg/dl Phosphorus 2.1 L (2.5-4.5) mg/dL Magnesium 1.9 (1.6-2.3) mg/dL Total Bilirubin 0.6 (0.2-1.3) mg/dL AST 34 (14-36) U/L ALT 23 (9-52) U/L Alkaline Phosphatase 67 (38-126) U/L Total Protein 6.1 L (6.3-8.3) g/dL Albumin 3.2 L (3.5-5.0) g/dL Globulin 2.9 (2.2-3.9) gm/dL Albumin/Globulin Ratio 1.1 (1.0-2.1) Valproic Acid 29.8 L (50.0-100.0) ug/mL 10/13/17 10/13/17 10/13/17 Range/Units 06:12 05:54 05:10 WBC 8.9 (4.8-10.8) K/uL RBC 4.05 (3.80-5.20) Mil/uL Hgb 12.0 (11.0-16.0) g/dL Hct 34.6 (34.0-47.0) % MCV 85.5 (81.0-99.0) fL MCH 29.6 (27.0-31.0) pg MCHC 34.6 (33.0-37.0) g/dL RDW 14.9 H (11.5-14.5) % Plt Count 209 (130-400) K/uL MPV 8.4 (7.2-11.7) fL Neut % (Auto) 70.1 (50.0-75.0) % Lymph % (Auto) 20.4 (20.0-40.0) % [place] % (Auto) 7.5 (0.0-10.0) % Eos % (Auto) 1.3 (0.0-4.0) % Baso % (Auto) 0.7 (0.0-2.0) % Neut # (Auto) 6.3 (1.8-7.0) K/uL Lymph # (Auto) 1.8 (1.0-4.3) K/uL [place] # (Auto) 0.7 (0.0-0.8) K/uL Eos # (Auto) 0.1 (0.0-0.7) K/uL Baso # (Auto) 0.1 (0.0-0.2) K/uL Puncture Site Rb pCO2 35 (35-45) mm/Hg pO2 84 (80-100) mm/Hg HCO3 26.4 (21-28) mmol/L ABG pH 7.47 H (7.35-7.45) ABG Total CO2 26.6 (22-28) mmol/L ABG O2 Saturation 98.0 (95-98) % ABG Base Excess 2.0 (-2.0-3.0) mmol/L ABG Hemoglobin 12.1 (11.7-17.4) g/dL ABG Carboxyhemoglobin 1.7 H (0.5-1.5) % POC ABG HHb (Measured) 1.9 (0.0-5.0) % ABG Methemoglobin 1.1 (0.0-3.0) % Alan Test Na A-a O2 Difference 86.0 mm/Hg Respiratory Index 1.0 Hgb O2 Saturation 95.3 (95.0-98.0) % Vent Mode Prvc Mechanical Rate 12 FiO2 30.0 % Tidal Volume 500 PEEP 5 Sodium (132-148) mmol/L Potassium (3.6-5.2) mmol/L Chloride (98-107) mmol/L Carbon Dioxide (22-30) mmol/L Anion Gap (10-20) BUN (7-17) mg/dL Creatinine (0.7-1.2) mg/dL Est GFR ( Amer) Est GFR (Non-Af Amer) POC Glucose (mg/dL) 187 H (65-110) mg/dL Random Glucose (65-105) mg/dL Serum Osmolality (272-300) mosm/kg Calcium (8.6-10.4) mg/dl Phosphorus (2.5-4.5) mg/dL Magnesium (1.6-2.3) mg/dL Total Bilirubin (0.2-1.3) mg/dL AST (14-36) U/L ALT (9-52) U/L Alkaline Phosphatase (38-126) U/L Total Protein (6.3-8.3) g/dL Albumin (3.5-5.0) g/dL Globulin (2.2-3.9) gm/dL Albumin/Globulin Ratio (1.0-2.1) Valproic Acid (50.0-100.0) ug/mL 10/12/17 10/12/17 10/12/17 Range/Units 23:27 17:56 17:49 WBC (4.8-10.8) K/uL RBC (3.80-5.20) Mil/uL Hgb (11.0-16.0) g/dL Hct (34.0-47.0) % MCV (81.0-99.0) fL MCH (27.0-31.0) pg MCHC (33.0-37.0) g/dL RDW (11.5-14.5) % Plt Count (130-400) K/uL MPV (7.2-11.7) fL Neut % (Auto) (50.0-75.0) % Lymph % (Auto) (20.0-40.0) % Marin % (Auto) (0.0-10.0) % Eos % (Auto) (0.0-4.0) % Baso % (Auto) (0.0-2.0) % Neut # (Auto) (1.8-7.0) K/uL Lymph # (Auto) (1.0-4.3) K/uL Marin # (Auto) (0.0-0.8) K/uL Eos # (Auto) (0.0-0.7) K/uL Baso # (Auto) (0.0-0.2) K/uL Puncture Site pCO2 (35-45) mm/Hg pO2 (80-100) mm/Hg HCO3 (21-28) mmol/L ABG pH (7.35-7.45) ABG Total CO2 (22-28) mmol/L ABG O2 Saturation (95-98) % ABG Base Excess (-2.0-3.0) mmol/L ABG Hemoglobin (11.7-17.4) g/dL ABG Carboxyhemoglobin (0.5-1.5) % POC ABG HHb (Measured) (0.0-5.0) % ABG Methemoglobin (0.0-3.0) % Alan Test A-a O2 Difference mm/Hg Respiratory Index Hgb O2 Saturation (95.0-98.0) % Vent Mode Mechanical Rate FiO2 % Tidal Volume PEEP Sodium (132-148) mmol/L Potassium (3.6-5.2) mmol/L Chloride (98-107) mmol/L Carbon Dioxide (22-30) mmol/L Anion Gap (10-20) BUN (7-17) mg/dL Creatinine (0.7-1.2) mg/dL Est GFR ( Amer) Est GFR (Non-Af Amer) POC Glucose (mg/dL) 212 H 233 H (65-110) mg/dL Random Glucose (65-105) mg/dL Serum Osmolality 306 H (272-300) mosm/kg Calcium (8.6-10.4) mg/dl Phosphorus (2.5-4.5) mg/dL Magnesium (1.6-2.3) mg/dL Total Bilirubin (0.2-1.3) mg/dL AST (14-36) U/L ALT (9-52) U/L Alkaline Phosphatase (38-126) U/L Total Protein (6.3-8.3) g/dL Albumin (3.5-5.0) g/dL Globulin (2.2-3.9) gm/dL Albumin/Globulin Ratio (1.0-2.1) Valproic Acid (50.0-100.0) ug/mL 10/12/17 10/12/17 Range/Units 17:49 12:34 WBC (4.8-10.8) K/uL RBC (3.80-5.20) Mil/uL Hgb (11.0-16.0) g/dL Hct (34.0-47.0) % MCV (81.0-99.0) fL MCH (27.0-31.0) pg MCHC (33.0-37.0) g/dL RDW (11.5-14.5) % Plt Count (130-400) K/uL MPV (7.2-11.7) fL Neut % (Auto) (50.0-75.0) % Lymph % (Auto) (20.0-40.0) % Marin % (Auto) (0.0-10.0) % Eos % (Auto) (0.0-4.0) % Baso % (Auto) (0.0-2.0) % Neut # (Auto) (1.8-7.0) K/uL Lymph # (Auto) (1.0-4.3) K/uL Marin # (Auto) (0.0-0.8) K/uL Eos # (Auto) (0.0-0.7) K/uL Baso # (Auto) (0.0-0.2) K/uL Puncture Site pCO2 (35-45) mm/Hg pO2 (80-100) mm/Hg HCO3 (21-28) mmol/L ABG pH (7.35-7.45) ABG Total CO2 (22-28) mmol/L ABG O2 Saturation (95-98) % ABG Base Excess (-2.0-3.0) mmol/L ABG Hemoglobin (11.7-17.4) g/dL ABG Carboxyhemoglobin (0.5-1.5) % POC ABG HHb (Measured) (0.0-5.0) % ABG Methemoglobin (0.0-3.0) % Alan Test A-a O2 Difference mm/Hg Respiratory Index Hgb O2 Saturation (95.0-98.0) % Vent Mode Mechanical Rate FiO2 % Tidal Volume PEEP Sodium 141 (132-148) mmol/L Potassium 4.9 (3.6-5.2) mmol/L Chloride 104 (98-107) mmol/L Carbon Dioxide 25 (22-30) mmol/L Anion Gap 17 (10-20) BUN 18 H (7-17) mg/dL Creatinine 0.7 (0.7-1.2) mg/dL Est GFR ( Amer) > 60 Est GFR (Non-Af Amer) > 60 POC Glucose (mg/dL) 228 H (65-110) mg/dL Random Glucose 226 H (65-105) mg/dL Serum Osmolality (272-300) mosm/kg Calcium 8.4 L (8.6-10.4) mg/dl Phosphorus 3.2 (2.5-4.5) mg/dL Magnesium 1.8 (1.6-2.3) mg/dL Total Bilirubin 0.9 (0.2-1.3) mg/dL AST 36 (14-36) U/L ALT 39 (9-52) U/L Alkaline Phosphatase 69 (38-126) U/L Total Protein 6.1 L (6.3-8.3) g/dL Albumin 3.2 L (3.5-5.0) g/dL Globulin 2.9 (2.2-3.9) gm/dL Albumin/Globulin Ratio 1.1 (1.0-2.1) Valproic Acid (50.0-100.0) ug/mL Laboratory Results - last 24 hr 10/12/17 10/12/17 10/12/17 12:34 17:49 17:49 WBC RBC Hgb Hct MCV MCH MCHC RDW Plt Count MPV Neut % (Auto) Lymph % (Auto) Marin % (Auto) Eos % (Auto) Baso % (Auto) Neut # (Auto) Lymph # (Auto) Marin # (Auto) Eos # (Auto) Baso # (Auto) Puncture Site pCO2 pO2 HCO3 ABG pH ABG Total CO2 ABG O2 Saturation ABG Base Excess ABG Hemoglobin ABG Carboxyhemoglobin POC ABG HHb (Measured) ABG Methemoglobin Alan Test A-a O2 Difference Respiratory Index Hgb O2 Saturation Vent Mode Mechanical Rate FiO2 Tidal Volume PEEP Sodium 141 Potassium 4.9 Chloride 104 Carbon Dioxide 25 Anion Gap 17 BUN 18 H Creatinine 0.7 Est GFR ( Amer) > 60 Est GFR (Non-Af Amer) > 60 POC Glucose (mg/dL) 228 H Random Glucose 226 H Serum Osmolality 306 H Calcium 8.4 L Phosphorus 3.2 Magnesium 1.8 Total Bilirubin 0.9 AST 36 ALT 39 Alkaline Phosphatase 69 Total Protein 6.1 L Albumin 3.2 L Globulin 2.9 Albumin/Globulin Ratio 1.1 Valproic Acid 10/12/17 10/12/17 10/13/17 17:56 23:27 05:10 WBC RBC Hgb Hct MCV MCH MCHC RDW Plt Count MPV Neut % (Auto) Lymph % (Auto) Marin % (Auto) Eos % (Auto) Baso % (Auto) Neut # (Auto) Lymph # (Auto) Marin # (Auto) Eos # (Auto) Baso # (Auto) Puncture Site Rb pCO2 35 pO2 84 HCO3 26.4 ABG pH 7.47 H ABG Total CO2 26.6 ABG O2 Saturation 98.0 ABG Base Excess 2.0 ABG Hemoglobin 12.1 ABG Carboxyhemoglobin 1.7 H POC ABG HHb (Measured) 1.9 ABG Methemoglobin 1.1 Alan Test Na A-a O2 Difference 86.0 Respiratory Index 1.0 Hgb O2 Saturation 95.3 Vent Mode Prvc Mechanical Rate 12 FiO2 30.0 Tidal Volume 500 PEEP 5 Sodium Potassium Chloride Carbon Dioxide Anion Gap BUN Creatinine Est GFR ( Amer) Est GFR (Non-Af Amer) POC Glucose (mg/dL) 233 H 212 H Random Glucose Serum Osmolality Calcium Phosphorus Magnesium Total Bilirubin AST ALT Alkaline Phosphatase Total Protein Albumin Globulin Albumin/Globulin Ratio Valproic Acid 10/13/17 10/13/17 10/13/17 05:54 06:12 06:14 WBC 8.9 RBC 4.05 Hgb 12.0 Hct 34.6 MCV 85.5 MCH 29.6 MCHC 34.6 RDW 14.9 H Plt Count 209 MPV 8.4 Neut % (Auto) 70.1 Lymph % (Auto) 20.4 Marin % (Auto) 7.5 Eos % (Auto) 1.3 Baso % (Auto) 0.7 Neut # (Auto) 6.3 Lymph # (Auto) 1.8 Marin # (Auto) 0.7 Eos # (Auto) 0.1 Baso # (Auto) 0.1 Puncture Site pCO2 pO2 HCO3 ABG pH ABG Total CO2 ABG O2 Saturation ABG Base Excess ABG Hemoglobin ABG Carboxyhemoglobin POC ABG HHb (Measured) ABG Methemoglobin Alan Test A-a O2 Difference Respiratory Index Hgb O2 Saturation Vent Mode Mechanical Rate FiO2 Tidal Volume PEEP Sodium 144 Potassium 3.3 L Chloride 106 Carbon Dioxide 27 Anion Gap 14 BUN 18 H Creatinine 0.7 Est GFR ( Amer) > 60 Est GFR (Non-Af Amer) > 60 POC Glucose (mg/dL) 187 H Random Glucose 168 H Serum Osmolality Calcium 8.6 Phosphorus 2.1 L Magnesium 1.9 Total Bilirubin 0.6 AST 34 ALT 23 Alkaline Phosphatase 67 Total Protein 6.1 L Albumin 3.2 L Globulin 2.9 Albumin/Globulin Ratio 1.1 Valproic Acid 10/13/17 10/13/17 06:16 06:16 WBC RBC Hgb Hct MCV MCH MCHC RDW Plt Count MPV Neut % (Auto) Lymph % (Auto) Marin % (Auto) Eos % (Auto) Baso % (Auto) Neut # (Auto) Lymph # (Auto) Marin # (Auto) Eos # (Auto) Baso # (Auto) Puncture Site pCO2 pO2 HCO3 ABG pH ABG Total CO2 ABG O2 Saturation ABG Base Excess ABG Hemoglobin ABG Carboxyhemoglobin POC ABG HHb (Measured) ABG Methemoglobin Alan Test A-a O2 Difference Respiratory Index Hgb O2 Saturation Vent Mode Mechanical Rate FiO2 Tidal Volume PEEP Sodium Potassium Chloride Carbon Dioxide Anion Gap BUN Creatinine Est GFR ( Amer) Est GFR (Non-Af Amer) POC Glucose (mg/dL) Random Glucose Serum Osmolality 305 H Calcium Phosphorus Magnesium Total Bilirubin AST ALT Alkaline Phosphatase Total Protein Albumin Globulin Albumin/Globulin Ratio Valproic Acid 29.8 L Critical Care Progress Note - Nutrition Nutrition: Nutrition Category Date Time Status NPO Diet [DIET] Diets 10/10/17 Breakfast Active Assessment/Plan - Assessment and Plan (Free Text) Plan: Patient seen and examined at bedside. Post IVD. ventilator dependent. -more awake today --hypoxic respiratory failure, cpap, weaning and extubate obtain post extubation abg -DM: continue ISS as per protocolk -restart NG tube feeds -continue dvt/pud ppx -Above resident note reviewed and verified. Patient extubated sucessfully -f/u abg -pt/ot speech and swallow cc time 35 minutes evaluating patient and persoanlyl extubating patient -leak test (+) - Date & Time Date: 10/13/17 Time: 10:23
--- NOTE | 2017-10-13 10:20 | RAD ---
HISTORY: s/p extubation COMPARISON: 10/12/2017. FINDINGS: There has been interval extubation. The nasogastric tube terminates in the stomach. There is stable position of right ventriculoperitoneal shunt. LUNGS: The lungs are clear. PLEURA: No significant pleural effusion identified, no pneumothorax apparent. CARDIOVASCULAR: Normal. OSSEOUS STRUCTURES: No significant abnormalities. VISUALIZED UPPER ABDOMEN: Normal. OTHER FINDINGS: None. IMPRESSION: Status post extubation, no acute findings.
[2017-10-13 11:37] LABS: ABG ALLEN TEST POS; ARTERIAL BLOOD GAS HCO3 25.5 mmol/L (21-28); ARTERIAL BLOOD GAS HEMOGLOBIN 11.9 g/dL (11.7-17.4); ARTERIAL BLOOD GAS O2 SAT 99.1 % (95-98); ARTERIAL BLOOD GAS PCO2 33 mm/Hg (35-45); ARTERIAL BLOOD GAS PH 7.47 (7.35-7.45); ARTERIAL BLOOD GAS PO2 123 mm/Hg (80-100)
--- NOTE | 2017-10-13 12:56 | CP.PCM.PN ---
Subjective - Date & Time of Evaluation Date of Evaluation: 10/13/17 Time of Evaluation: 12:53 - Subjective Subjective: Patient unable to provide any verbal complaints. Clinically improving. Objective - Vital Signs/Intake and Output Vital Signs (last 24 hours): Temp Pulse Resp BP Pulse Ox 98.9 F 86 13 145/75 92 L 10/13/17 08:00 10/13/17 09:57 10/13/17 09:57 10/13/17 09:57 10/13/17 09:57 Intake and Output: 10/13/17 10/13/17 06:59 18:59 Intake Total 527.5 85.0 Output Total 775 195 Balance -247.5 -110.0 - Medications Medications: Current Medications Bupropion HCl (Wellbutrin Xl) 150 mg PO DAILY [facility] Last Admin: 10/11/17 09:06 Dose: Not Given Dextrose (Dextrose 50% Inj) 0 ml IV STAT PRN; Protocol PRN Reason: Hypoglycemia Protocol Dextrose (Glutose 15) 0 gm PO ONCE PRN; Protocol PRN Reason: Hypoglycemia Protocol Glucagon (Glucagen Diagnostic Kit) 0 mg IM STAT PRN; Protocol PRN Reason: Hypoglycemia Protocol Meropenem (Merrem Iv 1 Gm Premix) 50 mls @ 100 mls/hr IVPB Q8H [facility] PRN Reason: Protocol Last Admin: 10/13/17 04:55 Dose: 100 mls/hr Vancomycin/Sodium Chloride (Vancomycin 1 Gm/Ns 200 Ml) 1 gm in 200 mls @ 133.333 mls/hr IVPB Q12H [facility] PRN Reason: Protocol Stop: 10/16/17 13:31 Last Admin: 10/13/17 00:43 Dose: 133.333 mls/hr Valproate Sodium 500 mg/ (Sodium Chloride) 105 mls @ 100 mls/hr IVPB Q12H [facility] Last Admin: 10/13/17 02:20 Dose: 100 mls/hr Potassium Phosphate 15 mmole/ (Sodium Chloride) 255 mls @ 42.5 mls/hr IVPB ONCE ONE Stop: 10/13/17 13:58 Last Admin: 10/13/17 09:29 Dose: 42.5 mls/hr Insulin Human Regular (Novolin R) 0 unit SC Q6 [facility] PRN Reason: Protocol Last Admin: 10/13/17 06:05 Dose: 1 units Latanoprost (Xalatan Opht) 0 ml OU HS [facility] Last Admin: 10/12/17 21:07 Dose: 2.5 ml Losartan Potassium (Cozaar) 100 mg PO DAILY [facility] Last Admin: 10/11/17 09:03 Dose: Not Given Pantoprazole Sodium (Protonix Inj) 40 mg IVP DAILY [facility] Last Admin: 10/13/17 11:13 Dose: 40 mg - Labs Labs: 10/13/17 06:12 10/13/17 06:14 PT 10.9 SECONDS (9.7-12.2) 10/09/17 11:37 INR 1.0 10/09/17 11:37 APTT 26 SECONDS (21-34) 10/03/17 10:30 Assessment and Plan - Assessment and Plan (Free Text) Assessment: 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 Persistent but improved transependymal edema CSF culture: no growth to date Abx with Meropenem and Vancomycin S/P [employer] shunt revision with Dr. Hancock. Patient transfer to ICU further evaluation and management. Altered Mental Status improving Patient able to follow simple commands. Son at bedside DM 2 Uncontrolled diabetes Accuchecks QAC and HS Medium Dose insulin sliding scale Will continue to monitor and titrate as appropriate HLD Continue statin Asthma Duonebs prn Controlled Hypertension, controlled Norvasc 5mg PO daily Elevated Creatinine - RESOLVED cr stable; continue to monitor and correct electrolytes as necessary Prophylactic measure Protonix 40mg PO daily SCDs Diet: NPO, NGT in place Disposition: Extubated
[2017-10-13] MEDS: Potassium Chloride 20 mEq/15 ml LIQ UD PO SCH ×2 (15:42→22:50)
--- NOTE | 2017-10-13 16:01 | CP.PCM.PN ---
Subjective - Date & Time of Evaluation Date of Evaluation: 10/13/17 Time of Evaluation: 03:15 - Subjective Subjective: dictated Objective - Vital Signs/Intake and Output Vital Signs (last 24 hours): Temp Pulse Resp BP Pulse Ox 98.9 F 78 14 134/84 97 10/13/17 08:00 10/13/17 13:57 10/13/17 13:57 10/13/17 15:41 10/13/17 13:57 Intake and Output: 10/13/17 10/13/17 06:59 18:59 Intake Total 527.5 85.0 Output Total 775 195 Balance -247.5 -110.0 - Medications Medications: Current Medications Bupropion HCl (Wellbutrin Xl) 150 mg PO DAILY [facility] Last Admin: 10/11/17 09:06 Dose: Not Given Dextrose (Dextrose 50% Inj) 0 ml IV STAT PRN; Protocol PRN Reason: Hypoglycemia Protocol Dextrose (Glutose 15) 0 gm PO ONCE PRN; Protocol PRN Reason: Hypoglycemia Protocol Glucagon (Glucagen Diagnostic Kit) 0 mg IM STAT PRN; Protocol PRN Reason: Hypoglycemia Protocol Heparin Sodium (Porcine) (Heparin) 5,000 units SC Q8 [facility] Meropenem (Merrem Iv 1 Gm Premix) 50 mls @ 100 mls/hr IVPB Q8H [facility] PRN Reason: Protocol Last Admin: 10/13/17 12:00 Dose: 100 mls/hr Vancomycin/Sodium Chloride (Vancomycin 1 Gm/Ns 200 Ml) 1 gm in 200 mls @ 133.333 mls/hr IVPB Q12H [facility] PRN Reason: Protocol Stop: 10/16/17 13:31 Last Admin: 10/13/17 13:44 Dose: 133.333 mls/hr Valproate Sodium 500 mg/ (Sodium Chloride) 105 mls @ 100 mls/hr IVPB Q12H [facility] Last Admin: 10/13/17 13:00 Dose: 100 mls/hr Insulin Human Regular (Novolin R) 0 unit SC Q6 [facility] PRN Reason: Protocol Last Admin: 10/13/17 12:00 Dose: Not Given Latanoprost (Xalatan Opht) 0 ml OU HS [facility] Last Admin: 10/12/17 21:07 Dose: 2.5 ml Pantoprazole Sodium (Protonix Inj) 40 mg IVP DAILY [facility] Last Admin: 10/13/17 11:13 Dose: 40 mg Potassium Chloride (Potassium Chloride Oral Soln) 40 meq PO Q6H [facility] Stop: 10/14/17 03:46 Last Admin: 10/13/17 15:42 Dose: 40 meq - Labs Labs: 10/13/17 06:12 10/13/17 06:14 PT 10.9 SECONDS (9.7-12.2) 10/09/17 11:37 INR 1.0 10/09/17 11:37 APTT 26 SECONDS (21-34) 10/03/17 10:30
[2017-10-13] MEDS: Latanoprost 2.5 ml Opht Soln OU SCH (22:51)
[2017-10-14] MEDS: (Novolin R) Insulin Human Regular 100 units/ml vial SC SCH ×5 (00:21→21:55)
--- NOTE | 2017-10-14 00:27 | PN ---
DATE: 10/13/2017 SUBJECTIVE: The patient was more awake today. She was extubated. She appeared , I am sure she is still on pain medications. She has a dressing on her scalp. She has underwent a surgery for revision of her [employer] N[employer]SE shunt. PHYSICAL EXAMINATION: VITAL SIGNS: T-max is 98.5, pulse 74, blood pressure 186/77, respirations are 14. HEENT: Head is atraumatic, normocephalic now. NECK: Supple. LUNGS: Had bilateral rhonchi. HEART: S1 and S2 are regular. ABDOMEN: Soft, flabby, nontender. She did not complain of any pain. She was complaining of leg pains. She has Venodyne boots on. LABORATORY DATA: White count is 8.9, she was just explaining with her signs as her voice is still hoarse; hemoglobin is 12; hematocrit 34.6; platelet count is 209. She was extubated. Her chemistry shows potassium is 3.3, sodium 144, chloride of 106, CO2 is 27. ASSESSMENT AND PLAN: She is doing really well at this time. The cultures have been all been negative and so we will plan to discontinue antibiotics in next 24 hours if she remains stable, and we will follow the plans of the neurosurgeon. She probably just had mechanical problems leading to altered mental status from the [employer] N[employer]SE shunt. She does have normal pressure hydrocephalus, status post respiratory failure, and is improving. Naga Milton MD
[2017-10-14] MEDS: Vancomycin 1 gm/NS 200 ml 1 GM/200 ML BAG IVPB SCH (00:56)
[2017-10-14] MEDS: Valproate 500 MG in Sodium Chloride 0.9% 100 ML IVPB SCH ×2 (02:24→13:24)
[2017-10-14] MEDS: Potassium Chloride 20 mEq/15 ml LIQ UD PO SCH (03:07)
[2017-10-14 04:40] LABS: BASO # 0.1 K/uL (0.0-0.2); BASO % 0.8 % (0.0-2.0); EOS # 0.2 K/uL (0.0-0.7); EOS % 2.9 % (0.0-4.0); HEMOGLOBIN 12.9 g/dL (11.0-16.0); LYMPH # 1.6 K/uL (1.0-4.3); LYMPH % 19.4 % (20.0-40.0); MEAN CELL VOLUME 85.3 fL (81.0-99.0); MEAN CORPUSCULAR HEMOGLOBIN 28.4 pg (27.0-31.0); MEAN CORPUSCULAR HGB CONC 33.4 g/dL (33.0-37.0); MEAN PLATELET VOLUME 8.2 fL (7.2-11.7); MONO # 0.5 K/uL (0.0-0.8); MONO % 6.7 % (0.0-10.0); NEUT # 5.7 K/uL (1.8-7.0); NEUT % 70.2 % (50.0-75.0); RBC 4.54 Mil/uL (3.80-5.20); RED CELL DISTRIBUTION WIDTH 14.7 % (11.5-14.5); WHITE BLOOD COUNT 8.1 K/uL (4.8-10.8)
[2017-10-14 04:53] LABS: ALBUMIN 3.1 g/dL (3.5-5.0); ALT/SGPT 27 U/L (9-52); AST/SGOT 36 U/L (14-36); BLOOD UREA NITROGEN 18 mg/dL (7-17); CALCIUM 8.6 mg/dl (8.6-10.4); GFR AFRICAN-AMERICAN > 60; GFR NON-AFRICAN AMERICAN > 60
[2017-10-14] MEDS: Meropenem IV 1 gm in NS 50 ML IVPB SCH (06:00)
[2017-10-14] MEDS: Potassium & Sodium Phosphate PO SCH ×2 (10:15→13:24)
--- NOTE | 2017-10-14 10:19 | CP.CCUPN ---
<Ernestine Posadas - Last Filed: 10/14/17 10:18> CCU Subjective - Physician Review Subjective (Free Text): Patient was seen and examined at bedside. S/P shunt revision. Successfully extubated 10/13/17. Tolerating pureed diet- will remove NGT. CCU Objective - Vital Signs / Intake & Output Vital Signs (Last 4 hours): Vital Signs Pulse Resp BP 10/14/17 08:00 71 15 10/14/17 07:56 72 15 118/65 10/14/17 07:00 63 11 L 10/14/17 06:56 72 13 128/68 Intake and Output (Last 8hrs): Intake & Output 10/13/17 10/14/17 10/14/17 22:59 06:59 14:59 Intake Total 322.5 355 Output Total 1025 525 50 Balance -702.5 -170 -50 Intake: Intake, IV Amount 292.5 355 Left Antecubital 200 Left Hand 92.5 355 Tube Feeding 30 Output: Urine 1025 525 50 Urine, Voided 1025 525 50 Other: # Bowel Movements 1 1 - Physical Exam Head: Positive for: Normocephalic Pupils: Positive for: PERRL Extroacular Muscles: Positive for: EOMI Mouth: Positive for: Dry, Other (NGT in place ) Respiratory/Chest: Positive for: Clear to Auscultation. Negative for: Respiratory Distress Cardiovascular: Positive for: Regular Rate and Rhythm Abdomen: Positive for: Normal Bowel Sounds. Negative for: Tenderness, Distention Upper Extremity: Positive for: Normal Inspection, NORMAL PULSES, Neurovascularly Intact, Capillary Refill < 2s Lower Extremity: Positive for: Normal Inspection, NORMAL PULSES, Neurovascularly Intact, Capillary Refill < 2 s Skin: Positive for: Warm, Dry, Normal Color - Medications Active Medications: Active Medications Generic Name Dose Route Start Last Admin Trade Name Freq PRN Reason Stop Dose Admin Bupropion HCl 150 mg 10/04/17 10:00 10/11/17 09:06 Wellbutrin Xl PO Not Given DAILY MOLLY Dextrose 0 ml 10/03/17 13:28 Dextrose 50% Inj IV STAT PRN Hypoglycemia Protocol Protocol Dextrose 0 gm 10/03/17 13:28 Glutose 15 PO ONCE PRN Hypoglycemia Protocol Protocol Glucagon 0 mg 10/03/17 13:28 Glucagen Diagnostic Kit IM STAT PRN Hypoglycemia Protocol Protocol Heparin Sodium (Porcine) 5,000 units 10/14/17 06:00 10/14/17 06:01 Heparin SC 5,000 units Q8 MOLLY Administration Vancomycin/Sodium Chloride 1 gm in 200 mls @ 133.333 mls/hr 10/11/17 13:30 00:56 Vancomycin 1 Gm/Ns 200 Ml IVPB 10/16/17 13:31 133.333 mls/hr Q12H MOLLY Administration Protocol Valproate Sodium 500 mg/ 105 mls @ 100 mls/hr 10/11/17 14:03 10/14/17 02:24 Sodium Chloride IVPB 100 mls/hr Q12H MOLLY Administration Insulin Human Regular 0 unit 10/11/17 18:00 10/14/17 08:09 Novolin R SC Not Given Q6 MOLLY Protocol Latanoprost 0 ml 10/03/17 22:00 10/13/17 22:51 Xalatan Opht OU 2.5 ml HS MOLLY Administration Pantoprazole Sodium 40 mg 10/12/17 10:00 10/14/17 10:15 Protonix Inj IVP 40 mg DAILY MOLLY Administration Potassium Phos/Sodium Phos 1 pkt 10/14/17 09:15 10/14/17 10:15 Neutra-Phos PO 10/14/17 13:16 1 pkt Q4H MOLLY Administration - Patient Studies Lab Studies: Microbiology Studies 10/10/17 14:33 Gram Stain - Final Cerebral Spinal Fluid CSF Culture - Preliminary NO GROWTH AFTER 4 DAYS 10/08/17 11:50 Blood Culture - Final Blood-Venous NO GROWTH AFTER 5 DAYS Gram Stain - Final TEST NOT PERFORMED 10/08/17 11:22 Blood Culture - Final Blood-Venous NO GROWTH AFTER 5 DAYS Gram Stain - Final TEST NOT PERFORMED 10/12/17 04:13 Urine Culture - Final Urine,Catheterized No Growth (<1,000 CFU/ML) Lab Studies 10/14/17 10/14/17 10/13/17 Range/Units 04:36 04:36 23:24 WBC 8.1 (4.8-10.8) K/uL RBC 4.54 (3.80-5.20) Mil/uL Hgb 12.9 (11.0-16.0) g/dL Hct 38.7 (34.0-47.0) % MCV 85.3 (81.0-99.0) fL MCH 28.4 (27.0-31.0) pg MCHC 33.4 (33.0-37.0) g/dL RDW 14.7 H (11.5-14.5) % Plt Count 220 (130-400) K/uL MPV 8.2 (7.2-11.7) fL Neut % (Auto) 70.2 (50.0-75.0) % Lymph % (Auto) 19.4 L (20.0-40.0) % [place] % (Auto) 6.7 (0.0-10.0) % Eos % (Auto) 2.9 (0.0-4.0) % Baso % (Auto) 0.8 (0.0-2.0) % Neut # (Auto) 5.7 (1.8-7.0) K/uL Lymph # (Auto) 1.6 (1.0-4.3) K/uL [place] # (Auto) 0.5 (0.0-0.8) K/uL Eos # (Auto) 0.2 (0.0-0.7) K/uL Baso # (Auto) 0.1 (0.0-0.2) K/uL Puncture Site pCO2 (35-45) mm/Hg pO2 (80-100) mm/Hg HCO3 (21-28) mmol/L ABG pH (7.35-7.45) ABG Total CO2 (22-28) mmol/L ABG O2 Saturation (95-98) % ABG Base Excess (-2.0-3.0) mmol/L ABG Hemoglobin (11.7-17.4) g/dL ABG Carboxyhemoglobin (0.5-1.5) % POC ABG HHb (Measured) (0.0-5.0) % ABG Methemoglobin (0.0-3.0) % Alan Test A-a O2 Difference mm/Hg Respiratory Index Hgb O2 Saturation (95.0-98.0) % Liter Flow FiO2 % Sodium 145 (132-148) mmol/L Potassium 5.1 (3.6-5.2) mmol/L Chloride 106 (98-107) mmol/L Carbon Dioxide 29 (22-30) mmol/L Anion Gap 15 (10-20) BUN 18 H (7-17) mg/dL Creatinine 0.6 L (0.7-1.2) mg/dL Est GFR ( Amer) > 60 Est GFR (Non-Af Amer) > 60 POC Glucose (mg/dL) 147 H (65-110) mg/dL Random Glucose 170 H (65-105) mg/dL Calcium 8.6 (8.6-10.4) mg/dl Phosphorus 2.1 L (2.5-4.5) mg/dL Magnesium 1.8 (1.6-2.3) mg/dL Total Bilirubin 0.9 (0.2-1.3) mg/dL AST 36 (14-36) U/L ALT 27 (9-52) U/L Alkaline Phosphatase 72 (38-126) U/L Total Protein 6.3 (6.3-8.3) g/dL Albumin 3.1 L (3.5-5.0) g/dL Globulin 3.2 (2.2-3.9) gm/dL Albumin/Globulin Ratio 1.0 (1.0-2.1) 10/13/17 10/13/17 10/13/17 Range/Units 17:36 11:59 11:33 WBC (4.8-10.8) K/uL RBC (3.80-5.20) Mil/uL Hgb (11.0-16.0) g/dL Hct (34.0-47.0) % MCV (81.0-99.0) fL MCH (27.0-31.0) pg MCHC (33.0-37.0) g/dL RDW (11.5-14.5) % Plt Count (130-400) K/uL MPV (7.2-11.7) fL Neut % (Auto) (50.0-75.0) % Lymph % (Auto) (20.0-40.0) % [place] % (Auto) (0.0-10.0) % Eos % (Auto) (0.0-4.0) % Baso % (Auto) (0.0-2.0) % Neut # (Auto) (1.8-7.0) K/uL Lymph # (Auto) (1.0-4.3) K/uL [place] # (Auto) (0.0-0.8) K/uL Eos # (Auto) (0.0-0.7) K/uL Baso # (Auto) (0.0-0.2) K/uL Puncture Site Lr pCO2 33 L (35-45) mm/Hg pO2 123 H (80-100) mm/Hg HCO3 25.5 (21-28) mmol/L ABG pH 7.47 H (7.35-7.45) ABG Total CO2 25.0 (22-28) mmol/L ABG O2 Saturation 99.1 H (95-98) % ABG Base Excess 0.8 (-2.0-3.0) mmol/L ABG Hemoglobin 11.9 (11.7-17.4) g/dL ABG Carboxyhemoglobin 1.4 (0.5-1.5) % POC ABG HHb (Measured) 0.9 (0.0-5.0) % ABG Methemoglobin 0.8 (0.0-3.0) % Alan Test Pos A-a O2 Difference 71.0 mm/Hg Respiratory Index 0.6 Hgb O2 Saturation 96.8 (95.0-98.0) % Liter Flow 4.0 FiO2 33.0 % Sodium (132-148) mmol/L Potassium (3.6-5.2) mmol/L Chloride (98-107) mmol/L Carbon Dioxide (22-30) mmol/L Anion Gap (10-20) BUN (7-17) mg/dL Creatinine (0.7-1.2) mg/dL Est GFR ( Amer) Est GFR (Non-Af Amer) POC Glucose (mg/dL) 179 H 174 H (65-110) mg/dL Random Glucose (65-105) mg/dL Calcium (8.6-10.4) mg/dl Phosphorus (2.5-4.5) mg/dL Magnesium (1.6-2.3) mg/dL Total Bilirubin (0.2-1.3) mg/dL AST (14-36) U/L ALT (9-52) U/L Alkaline Phosphatase (38-126) U/L Total Protein (6.3-8.3) g/dL Albumin (3.5-5.0) g/dL Globulin (2.2-3.9) gm/dL Albumin/Globulin Ratio (1.0-2.1) Laboratory Results - last 24 hr 10/13/17 10/13/17 10/13/17 11:33 11:59 17:36 WBC RBC Hgb Hct MCV MCH MCHC RDW Plt Count MPV Neut % (Auto) Lymph % (Auto) [place] % (Auto) Eos % (Auto) Baso % (Auto) Neut # (Auto) Lymph # (Auto) [place] # (Auto) Eos # (Auto) Baso # (Auto) Puncture Site Lr pCO2 33 L pO2 123 H HCO3 25.5 ABG pH 7.47 H ABG Total CO2 25.0 ABG O2 Saturation 99.1 H ABG Base Excess 0.8 ABG Hemoglobin 11.9 ABG Carboxyhemoglobin 1.4 POC ABG HHb (Measured) 0.9 ABG Methemoglobin 0.8 Alan Test Pos A-a O2 Difference 71.0 Respiratory Index 0.6 Hgb O2 Saturation 96.8 Liter Flow 4.0 FiO2 33.0 Sodium Potassium Chloride Carbon Dioxide Anion Gap BUN Creatinine Est GFR ( Amer) Est GFR (Non-Af Amer) POC Glucose (mg/dL) 174 H 179 H Random Glucose Calcium Phosphorus Magnesium Total Bilirubin AST ALT Alkaline Phosphatase Total Protein Albumin Globulin Albumin/Globulin Ratio 10/13/17 10/14/17 10/14/17 23:24 04:36 04:36 WBC 8.1 RBC 4.54 Hgb 12.9 Hct 38.7 MCV 85.3 MCH 28.4 MCHC 33.4 RDW 14.7 H Plt Count 220 MPV 8.2 Neut % (Auto) 70.2 Lymph % (Auto) 19.4 L [place] % (Auto) 6.7 Eos % (Auto) 2.9 Baso % (Auto) 0.8 Neut # (Auto) 5.7 Lymph # (Auto) 1.6 [place] # (Auto) 0.5 Eos # (Auto) 0.2 Baso # (Auto) 0.1 Puncture Site pCO2 pO2 HCO3 ABG pH ABG Total CO2 ABG O2 Saturation ABG Base Excess ABG Hemoglobin ABG Carboxyhemoglobin POC ABG HHb (Measured) ABG Methemoglobin Alan Test A-a O2 Difference Respiratory Index Hgb O2 Saturation Liter Flow FiO2 Sodium 145 Potassium 5.1 Chloride 106 Carbon Dioxide 29 Anion Gap 15 BUN 18 H Creatinine 0.6 L Est GFR ( Amer) > 60 Est GFR (Non-Af Amer) > 60 POC Glucose (mg/dL) 147 H Random Glucose 170 H Calcium 8.6 Phosphorus 2.1 L Magnesium 1.8 Total Bilirubin 0.9 AST 36 ALT 27 Alkaline Phosphatase 72 Total Protein 6.3 Albumin 3.1 L Globulin 3.2 Albumin/Globulin Ratio 1.0 Fingerstick Blood Sugar Results: 170 Critical Care Progress Note - Nutrition Nutrition: Nutrition Category Date Time Status Dysphagia/Modified Consistency Diet [DIET] Diets 10/14/17 Lunch Active Assessment/Plan - Assessment and Plan (Free Text) Plan: 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 CT head (10/08):Ventricles remain markedly dilated questionably increased slightly in size when compared with prior study 10/06/2017. Findings are consistent with shunt malfunction. There are confluent low-attenuation changes seen in the periventricular white matter most conspicuous in the periatrial/ perioccipital horn regions. . Underlying chronic periventricular white matter ischemic changes may contribute. EEG (10/09): awaiting official report CT head (10/10): Stent malfunction pattern of persistent ventriculomegaly again identified with right frontal shunt unchanged in position. Limited underlying age-related neuro degenerative changes reiterated. No intracranial hemorrhage or worsening of hydrocephalus appreciated at this time. Abd/Pelvis CT (10/11): Reason abdominal wall surgery with postsurgical changes in the anterior abdominal wall and superficial skin [place]. Two partially imaged shunt catheters as described above. Colonic distention with gas and fluid may represent postoperative ileus versus acute colonic ileus. Clinical correlation is recommended. Sub centimeter left thyroid nodule. Dedicated thyroid ultrasound can be obtained for further evaluation as clinically warranted. CT head (10/11): Enlarging ventricles per Dr. Hancock. CSF culture: no growth to date 10/10/17 Started on Meropenem 1gm IVPB q8h (started on 10/11) Started on Vanco 1gm IVPB q12h (started on 10/11) S/P SHOP FITTER shunt revision with Dr. Hancock. Patient transfer to ICU further evaluation and management. Head Ct 10/12/17: Interval slight decrease in size of the ventricles. Persistent but improved transependymal edema Repeat EEG, mannitol 12.5mg IV x 1 Altered Mental Status likely secondary to NPH Blood cultures negative at 5 days Repeat blood cultures negative at 3 days Urine culture negative Patient is afebrile, no white count Chest X ray - negative Troponin negative Ammonia 11 10/07:as per family; patient is ambulatory and speaks in full coherent sentences and ANOx3 at baseline; currently ANOx2; speaking more clearly, opening eyes. Improving but not at baseline 10/08: patient is drowsy and not as alert as yesterday; will answer to name and pain, but is otherwise obtunded 10/09: patient is lethargic, responding to pain and some verbal stimuli. Will speak few words. 10/10: patient refusing to wake up. only responding to pain. DM 2 Uncontrolled diabetes Accuchecks QAC and HS Medium Dose insulin sliding scale Will hold home metformin while in the hospital Will continue to monitor and titrate as appropriate HLD Continue statin Asthma Duonebs prn Controlled Not wheezing Hypertension, controlled Norvasc 5mg PO daily Elevated Creatinine - RESOLVED Cr stayed at 1.4 (baseline on 10/03 was 0.7) Continue NS@100mL/hr Continue to monitor Prophylactic measure Protonix 40mg PO daily SCDs Diet: Pureed diet PT EVAL Disposition: Transfered to MED/SURG Ernestine Love DO, PGY-1 <Chance Tavares - Last Filed: 10/14/17 10:43> CCU Objective - Vital Signs / Intake & Output Vital Signs (Last 4 hours): Vital Signs Pulse Resp BP 10/14/17 08:00 71 15 10/14/17 07:56 72 15 118/65 10/14/17 07:00 63 11 L 10/14/17 06:56 72 13 128/68 Intake and Output (Last 8hrs): Intake & Output 06/08/18 06/09/18 06/09/18 22:59 06:59 14:59 Intake Total 322.5 355 Output Total 1025 525 50 Balance -702.5 -170 -50 Intake: Intake, IV Amount 292.5 355 Left Antecubital 200 Left Hand 92.5 355 Tube Feeding 30 Output: Urine 1025 525 50 Urine, Voided 1025 525 50 Other: # Bowel Movements 1 1 - Medications Active Medications: Active Medications Generic Name Dose Route Start Last Admin Trade Name Freq PRN Reason Stop Dose Admin Amlodipine Besylate 5 mg 10/14/17 10:45 Norvasc PO DAILY MOLLY Bupropion HCl 150 mg 10/04/17 10:00 10/11/17 09:06 Wellbutrin Xl PO Not Given DAILY MOLLY Dextrose 0 ml 10/03/17 13:28 Dextrose 50% Inj IV STAT PRN Hypoglycemia Protocol Protocol Dextrose 0 gm 10/03/17 13:28 Glutose 15 PO ONCE PRN Hypoglycemia Protocol Protocol Glucagon 0 mg 10/03/17 13:28 Glucagen Diagnostic Kit IM STAT PRN Hypoglycemia Protocol Protocol Heparin Sodium (Porcine) 5,000 units 10/14/17 06:00 10/14/17 06:01 Heparin SC 5,000 units Q8 MOLLY Administration Valproate Sodium 500 mg/ 105 mls @ 100 mls/hr 10/11/17 14:03 10/14/17 02:24 Sodium Chloride IVPB 100 mls/hr Q12H MOLLY Administration Insulin Human Regular 0 unit 10/14/17 11:30 Novolin R SC ACHS MOLLY Protocol Latanoprost 0 ml 10/03/17 22:00 10/13/17 22:51 Xalatan Opht OU 2.5 ml HS MOLLY Administration Metoprolol Tartrate 12.5 mg 10/14/17 10:45 Lopressor PO BID MOLLY Pantoprazole Sodium 40 mg 10/12/17 10:00 10/14/17 10:15 Protonix Inj IVP 40 mg DAILY MOLLY Administration Potassium Phos/Sodium Phos 1 pkt 10/14/17 09:15 10/14/17 10:15 Neutra-Phos PO 10/14/17 13:16 1 pkt Q4H MOLLY Administration - Patient Studies Lab Studies: Microbiology Studies 10/10/17 14:33 Gram Stain - Final Cerebral Spinal Fluid CSF Culture - Preliminary NO GROWTH AFTER 4 DAYS 10/08/17 11:50 Blood Culture - Final Blood-Venous NO GROWTH AFTER 5 DAYS Gram Stain - Final TEST NOT PERFORMED 10/08/17 11:22 Blood Culture - Final Blood-Venous NO GROWTH AFTER 5 DAYS Gram Stain - Final TEST NOT PERFORMED 10/12/17 04:13 Urine Culture - Final Urine,Catheterized No Growth (<1,000 CFU/ML) Lab Studies 10/14/17 10/14/17 10/13/17 Range/Units 04:36 04:36 23:24 WBC 8.1 (4.8-10.8) K/uL RBC 4.54 (3.80-5.20) Mil/uL Hgb 12.9 (11.0-16.0) g/dL Hct 38.7 (34.0-47.0) % MCV 85.3 (81.0-99.0) fL MCH 28.4 (27.0-31.0) pg MCHC 33.4 (33.0-37.0) g/dL RDW 14.7 H (11.5-14.5) % Plt Count 220 (130-400) K/uL MPV 8.2 (7.2-11.7) fL Neut % (Auto) 70.2 (50.0-75.0) % Lymph % (Auto) 19.4 L (20.0-40.0) % [place] % (Auto) 6.7 (0.0-10.0) % Eos % (Auto) 2.9 (0.0-4.0) % Baso % (Auto) 0.8 (0.0-2.0) % Neut # (Auto) 5.7 (1.8-7.0) K/uL Lymph # (Auto) 1.6 (1.0-4.3) K/uL [place] # (Auto) 0.5 (0.0-0.8) K/uL Eos # (Auto) 0.2 (0.0-0.7) K/uL Baso # (Auto) 0.1 (0.0-0.2) K/uL Puncture Site pCO2 (35-45) mm/Hg pO2 (80-100) mm/Hg HCO3 (21-28) mmol/L ABG pH (7.35-7.45) ABG Total CO2 (22-28) mmol/L ABG O2 Saturation (95-98) % ABG Base Excess (-2.0-3.0) mmol/L ABG Hemoglobin (11.7-17.4) g/dL ABG Carboxyhemoglobin (0.5-1.5) % POC ABG HHb (Measured) (0.0-5.0) % ABG Methemoglobin (0.0-3.0) % Alan Test A-a O2 Difference mm/Hg Respiratory Index Hgb O2 Saturation (95.0-98.0) % Liter Flow FiO2 % Sodium 145 (132-148) mmol/L Potassium 5.1 (3.6-5.2) mmol/L Chloride 106 (98-107) mmol/L Carbon Dioxide 29 (22-30) mmol/L Anion Gap 15 (10-20) BUN 18 H (7-17) mg/dL Creatinine 0.6 L (0.7-1.2) mg/dL Est GFR ( Amer) > 60 Est GFR (Non-Af Amer) > 60 POC Glucose (mg/dL) 147 H (65-110) mg/dL Random Glucose 170 H (65-105) mg/dL Calcium 8.6 (8.6-10.4) mg/dl Phosphorus 2.1 L (2.5-4.5) mg/dL Magnesium 1.8 (1.6-2.3) mg/dL Total Bilirubin 0.9 (0.2-1.3) mg/dL AST 36 (14-36) U/L ALT 27 (9-52) U/L Alkaline Phosphatase 72 (38-126) U/L Total Protein 6.3 (6.3-8.3) g/dL Albumin 3.1 L (3.5-5.0) g/dL Globulin 3.2 (2.2-3.9) gm/dL Albumin/Globulin Ratio 1.0 (1.0-2.1) 10/13/17 10/13/17 10/13/17 Range/Units 17:36 11:59 11:33 WBC (4.8-10.8) K/uL RBC (3.80-5.20) Mil/uL Hgb (11.0-16.0) g/dL Hct (34.0-47.0) % MCV (81.0-99.0) fL MCH (27.0-31.0) pg MCHC (33.0-37.0) g/dL RDW (11.5-14.5) % Plt Count (130-400) K/uL MPV (7.2-11.7) fL Neut % (Auto) (50.0-75.0) % Lymph % (Auto) (20.0-40.0) % [place] % (Auto) (0.0-10.0) % Eos % (Auto) (0.0-4.0) % Baso % (Auto) (0.0-2.0) % Neut # (Auto) (1.8-7.0) K/uL Lymph # (Auto) (1.0-4.3) K/uL [place] # (Auto) (0.0-0.8) K/uL Eos # (Auto) (0.0-0.7) K/uL Baso # (Auto) (0.0-0.2) K/uL Puncture Site Lr pCO2 33 L (35-45) mm/Hg pO2 123 H (80-100) mm/Hg HCO3 25.5 (21-28) mmol/L ABG pH 7.47 H (7.35-7.45) ABG Total CO2 25.0 (22-28) mmol/L ABG O2 Saturation 99.1 H (95-98) % ABG Base Excess 0.8 (-2.0-3.0) mmol/L ABG Hemoglobin 11.9 (11.7-17.4) g/dL ABG Carboxyhemoglobin 1.4 (0.5-1.5) % POC ABG HHb (Measured) 0.9 (0.0-5.0) % ABG Methemoglobin 0.8 (0.0-3.0) % Alan Test Pos A-a O2 Difference 71.0 mm/Hg Respiratory Index 0.6 Hgb O2 Saturation 96.8 (95.0-98.0) % Liter Flow 4.0 FiO2 33.0 % Sodium (132-148) mmol/L Potassium (3.6-5.2) mmol/L Chloride (98-107) mmol/L Carbon Dioxide (22-30) mmol/L Anion Gap (10-20) BUN (7-17) mg/dL Creatinine (0.7-1.2) mg/dL Est GFR ( Amer) Est GFR (Non-Af Amer) POC Glucose (mg/dL) 179 H 174 H (65-110) mg/dL Random Glucose (65-105) mg/dL Calcium (8.6-10.4) mg/dl Phosphorus (2.5-4.5) mg/dL Magnesium (1.6-2.3) mg/dL Total Bilirubin (0.2-1.3) mg/dL AST (14-36) U/L ALT (9-52) U/L Alkaline Phosphatase (38-126) U/L Total Protein (6.3-8.3) g/dL Albumin (3.5-5.0) g/dL Globulin (2.2-3.9) gm/dL Albumin/Globulin Ratio (1.0-2.1) Laboratory Results - last 24 hr 10/13/17 10/13/17 10/13/17 11:33 11:59 17:36 WBC RBC Hgb Hct MCV MCH MCHC RDW Plt Count MPV Neut % (Auto) Lymph % (Auto) [place] % (Auto) Eos % (Auto) Baso % (Auto) Neut # (Auto) Lymph # (Auto) [place] # (Auto) Eos # (Auto) Baso # (Auto) Puncture Site Lr pCO2 33 L pO2 123 H HCO3 25.5 ABG pH 7.47 H ABG Total CO2 25.0 ABG O2 Saturation 99.1 H ABG Base Excess 0.8 ABG Hemoglobin 11.9 ABG Carboxyhemoglobin 1.4 POC ABG HHb (Measured) 0.9 ABG Methemoglobin 0.8 Alan Test Pos A-a O2 Difference 71.0 Respiratory Index 0.6 Hgb O2 Saturation 96.8 Liter Flow 4.0 FiO2 33.0 Sodium Potassium Chloride Carbon Dioxide Anion Gap BUN Creatinine Est GFR ( Amer) Est GFR (Non-Af Amer) POC Glucose (mg/dL) 174 H 179 H Random Glucose Calcium Phosphorus Magnesium Total Bilirubin AST ALT Alkaline Phosphatase Total Protein Albumin Globulin Albumin/Globulin Ratio 10/13/17 10/14/17 10/14/17 23:24 04:36 04:36 WBC 8.1 RBC 4.54 Hgb 12.9 Hct 38.7 MCV 85.3 MCH 28.4 MCHC 33.4 RDW 14.7 H Plt Count 220 MPV 8.2 Neut % (Auto) 70.2 Lymph % (Auto) 19.4 L [place] % (Auto) 6.7 Eos % (Auto) 2.9 Baso % (Auto) 0.8 Neut # (Auto) 5.7 Lymph # (Auto) 1.6 [place] # (Auto) 0.5 Eos # (Auto) 0.2 Baso # (Auto) 0.1 Puncture Site pCO2 pO2 HCO3 ABG pH ABG Total CO2 ABG O2 Saturation ABG Base Excess ABG Hemoglobin ABG Carboxyhemoglobin POC ABG HHb (Measured) ABG Methemoglobin Alan Test A-a O2 Difference Respiratory Index Hgb O2 Saturation Liter Flow FiO2 Sodium 145 Potassium 5.1 Chloride 106 Carbon Dioxide 29 Anion Gap 15 BUN 18 H Creatinine 0.6 L Est GFR ( Amer) > 60 Est GFR (Non-Af Amer) > 60 POC Glucose (mg/dL) 147 H Random Glucose 170 H Calcium 8.6 Phosphorus 2.1 L Magnesium 1.8 Total Bilirubin 0.9 AST 36 ALT 27 Alkaline Phosphatase 72 Total Protein 6.3 Albumin 3.1 L Globulin 3.2 Albumin/Globulin Ratio 1.0 Critical Care Progress Note - Nutrition Nutrition: Nutrition Category Date Time Status Dysphagia/Modified Consistency Diet [DIET] Diets 10/14/17 Lunch Active Assessment/Plan - Assessment and Plan (Free Text) Plan: Patient seen and examined at bedside with above resident. PAtietn much more awake, alert responsive spontaneously. -Tolerated speach and swallow with puree -d/c ng tube -oob to chair -restart home medication -complete blas-op abx regimen -HTN: restart norvasc and lopressor (hold ACEI 2nd renal failure and increase in potassium) -DM: continue lispro premeals, add long acting as per home medications -dvt ppx heparin -pud ppx protonix Patient will benefit from PT/OT. PAtient remains hemodynamically stable - Date & Time Date: 10/14/17 Time: 10:42
--- NOTE | 2017-10-14 18:20 | CP.PCM.PN ---
Subjective - Date & Time of Evaluation Date of Evaluation: 10/14/17 Time of Evaluation: 09:45 - Subjective Subjective: Seen and examined by me this morning.patient was sitting and talking.No complain Objective - Vital Signs/Intake and Output Vital Signs (last 24 hours): Temp Pulse Resp BP Pulse Ox 97.2 F L 70 20 144/87 97 10/14/17 15:45 10/14/17 15:45 10/14/17 15:45 10/14/17 15:45 10/14/17 15:45 Intake and Output: 10/14/17 10/14/17 06:59 18:59 Intake Total 415 150 Output Total 1550 650 Balance -1135 -500 - Medications Medications: Current Medications Amlodipine Besylate (Norvasc) 5 mg PO DAILY [facility] Last Admin: 10/14/17 11:25 Dose: 5 mg Bupropion HCl (Wellbutrin Xl) 150 mg PO DAILY [facility] Last Admin: 10/11/17 09:06 Dose: Not Given Dextrose (Dextrose 50% Inj) 0 ml IV STAT PRN; Protocol PRN Reason: Hypoglycemia Protocol Dextrose (Glutose 15) 0 gm PO ONCE PRN; Protocol PRN Reason: Hypoglycemia Protocol Glucagon (Glucagen Diagnostic Kit) 0 mg IM STAT PRN; Protocol PRN Reason: Hypoglycemia Protocol Heparin Sodium (Porcine) (Heparin) 5,000 units SC Q8 [facility] Last Admin: 10/14/17 13:24 Dose: 5,000 units Valproate Sodium 500 mg/ (Sodium Chloride) 105 mls @ 100 mls/hr IVPB Q12H [facility] Last Admin: 10/14/17 13:24 Dose: 100 mls/hr Insulin Human Regular (Novolin R) 0 unit SC ACHS [facility] PRN Reason: Protocol Last Admin: 10/14/17 11:29 Dose: 3 units Latanoprost (Xalatan Opht) 0 ml OU HS [facility] Last Admin: 10/13/17 22:51 Dose: 2.5 ml Metoprolol Tartrate (Lopressor) 12.5 mg PO BID [facility] Last Admin: 10/14/17 11:25 Dose: 12.5 mg Pantoprazole Sodium (Protonix Inj) 40 mg IVP DAILY [facility] Last Admin: 10/14/17 10:15 Dose: 40 mg - Labs Labs: 10/14/17 04:36 10/14/17 04:36 PT 10.9 SECONDS (9.7-12.2) 10/09/17 11:37 INR 1.0 10/09/17 11:37 APTT 26 SECONDS (21-34) 10/03/17 10:30 - Constitutional Appears: Non-toxic - Head Exam Head Exam: absent: NORMAL INSPECTION (righ side dressing) - Eye Exam Eye Exam: Normal appearance, PERRL Pupil Exam: NORMAL ACCOMODATION - ENT Exam ENT Exam: Mucous Membranes Moist, Normal Exam - Neck Exam Neck Exam: Normal Inspection - Respiratory Exam Respiratory Exam: Chest Wall Tenderness, Clear to Ausculation Bilateral, NORMAL BREATHING PATTERN - Cardiovascular Exam Cardiovascular Exam: REGULAR RHYTHM - GI/Abdominal Exam GI & Abdominal Exam: Soft, Normal Bowel Sounds - Back Exam Back Exam: Full ROM - Neurological Exam Neurological Exam: Awake, Oriented x3 - Psychiatric Exam Psychiatric exam: Normal Affect, Normal Mood - Skin Skin Exam: Dry Assessment and Plan - Assessment and Plan (Free Text) Plan: 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 3.DM 2 Medium Dose insulin sliding scale resume home meds when she start eating 4.HLD 5.Asthma 6.Hypertension Resume her home meds except lisinopril( s/p ARF) started on amlodipine and metoprolol 7.Elevated Creatinine - RESOLVED 8.Prophylactic measure
[2017-10-14] MEDS: Latanoprost 2.5 ml Opht Soln OU SCH (22:12)
--- NOTE | 2017-10-14 23:14 | CP.PCM.PN ---
Subjective - Date & Time of Evaluation Date of Evaluation: 10/14/17 Time of Evaluation: 13:00 - Subjective Subjective: Patient is awake, alert, following commands, and saying hello to me. on exam: PERRL. left sided neglect resolving. +dolls, corneals, gag names and repeats slowly. knows her sons name moving extremities well. Objective - Vital Signs/Intake and Output Vital Signs (last 24 hours): Temp Pulse Resp BP Pulse Ox 97.2 F L 70 20 144/87 97 10/14/17 15:45 10/14/17 15:45 10/14/17 15:45 10/14/17 15:45 10/14/17 15:45 Intake and Output: 10/14/17 10/15/17 18:59 06:59 Intake Total 150 Output Total 650 Balance -500 - Medications Medications: Current Medications Amlodipine Besylate (Norvasc) 5 mg PO DAILY [facility] Last Admin: 10/14/17 11:25 Dose: 5 mg Bupropion HCl (Wellbutrin Xl) 150 mg PO DAILY [facility] Last Admin: 10/11/17 09:06 Dose: Not Given Dextrose (Dextrose 50% Inj) 0 ml IV STAT PRN; Protocol PRN Reason: Hypoglycemia Protocol Dextrose (Glutose 15) 0 gm PO ONCE PRN; Protocol PRN Reason: Hypoglycemia Protocol Glucagon (Glucagen Diagnostic Kit) 0 mg IM STAT PRN; Protocol PRN Reason: Hypoglycemia Protocol Heparin Sodium (Porcine) (Heparin) 5,000 units SC Q8 [facility] Last Admin: 10/14/17 22:12 Dose: 5,000 units Valproate Sodium 500 mg/ (Sodium Chloride) 105 mls @ 100 mls/hr IVPB Q12H [facility] Last Admin: 10/14/17 13:24 Dose: 100 mls/hr Insulin Human Regular (Novolin R) 0 unit SC ACHS [facility] PRN Reason: Protocol Last Admin: 10/14/17 21:55 Dose: Not Given Latanoprost (Xalatan Opht) 0 ml OU HS [facility] Last Admin: 10/14/17 22:12 Dose: 2.5 ml Metoprolol Tartrate (Lopressor) 12.5 mg PO BID [facility] Last Admin: 10/14/17 18:28 Dose: 12.5 mg Pantoprazole Sodium (Protonix Inj) 40 mg IVP DAILY [facility] Last Admin: 10/14/17 10:15 Dose: 40 mg - Labs Labs: 10/14/17 04:36 10/14/17 04:36 PT 10.9 SECONDS (9.7-12.2) 10/09/17 11:37 INR 1.0 10/09/17 11:37 APTT 26 SECONDS (21-34) 10/03/17 10:30 Assessment and Plan - Assessment and Plan (Free Text) Assessment: patient with much improving mentation following vp platforms shunt revision. Plan; 1. continue mannitol 2. physical and speech therapy. THank you
[2017-10-15] MEDS: Valproate 500 MG in Sodium Chloride 0.9% 100 ML IVPB SCH ×2 (02:29→13:38)
[2017-10-15 07:39] LABS: BASO % 0.5 % (0.0-2.0); EOS # 0.1 K/uL (0.0-0.7); HEMOGLOBIN 13.2 g/dL (11.0-16.0); LYMPH # 1.8 K/uL (1.0-4.3); MEAN CELL VOLUME 85.7 fL (81.0-99.0); MEAN CORPUSCULAR HGB CONC 33.9 g/dL (33.0-37.0); MEAN PLATELET VOLUME 8.2 fL (7.2-11.7); MONO # 0.4 K/uL (0.0-0.8); MONO % 5.9 % (0.0-10.0); NEUT # 4.9 K/uL (1.8-7.0); NEUT % 66.6 % (50.0-75.0); RBC 4.54 Mil/uL (3.80-5.20); RED CELL DISTRIBUTION WIDTH 14.5 % (11.5-14.5); WHITE BLOOD COUNT 7.3 K/uL (4.8-10.8)
[2017-10-15 08:12] LABS: ALB/GLOB RATIO 1.3 (1.0-2.1); ALBUMIN 3.5 g/dL (3.5-5.0); ALT/SGPT 47 U/L (9-52); AST/SGOT 37 U/L (14-36); BLOOD UREA NITROGEN 14 mg/dL (7-17); CALCIUM 8.6 mg/dl (8.6-10.4); GFR AFRICAN-AMERICAN > 60; GFR NON-AFRICAN AMERICAN > 60
[2017-10-15] MEDS: (Novolin R) Insulin Human Regular 100 units/ml vial SC SCH ×4 (08:30→23:19)
--- NOTE | 2017-10-15 08:59 | PN ---
DATE: 10/13/2017 SUBJECTIVE: Ellen was extubated this morning and her mental status is markedly improved from even yesterday accounting for the fact that she was obviously intubated yesterday. She briskly follows all commands. She can tell me her name, that she is in [facility]. She correctly names several objects presented. She follows complex commands. She is moving all four extremities with excellent strength. The CT yesterday shows appropriate diminution in the ventricular size, accorded for the proper functioning of the FACILITY MANAGER shunt at this time (we obviously do not want a rapid collapse of the ventricles which would engender subdural hematomas). IMPRESSION AND PLAN: From my standpoint, certainly she can leave the ICU obviously as she had this airway concern, but from a neurological standpoint, I would like to see her mobilized quickly, and she certainly should be able to go to rehab within the next couple of days. Fer Hancock MD
--- NOTE | 2017-10-15 09:40 | CP.PCM.PN ---
<Sarai Patel - Last Filed: 10/15/17 12:42> Subjective - Date & Time of Evaluation Date of Evaluation: 10/15/17 Time of Evaluation: 09:38 - Subjective Subjective: PGY2 progress note for Dr. Parsons Pt seen and examined at bedside. No acute events overnight. Patient is in bed and daughter at bedside. Patient is pleasantly following commands and is A&Ox2 to person and place. Patient denies having any CP, SOB, abd pain, N/V/D/C, LUKE, numbness or tingling. Patient is labile and randomly is noted to start crying. Per daughter, this is a common occurrence since shunt placement. Objective - Vital Signs/Intake and Output Vital Signs (last 24 hours): Temp Pulse Resp BP Pulse Ox 97.7 F 63 18 108/68 98 10/15/17 08:35 10/15/17 08:35 10/15/17 08:35 10/15/17 08:35 10/15/17 08:35 - Medications Medications: Current Medications Amlodipine Besylate (Norvasc) 5 mg PO DAILY [facility] Last Admin: 10/15/17 09:29 Dose: 5 mg Bupropion HCl (Wellbutrin Xl) 150 mg PO DAILY [facility] Last Admin: 10/11/17 09:06 Dose: Not Given Dextrose (Dextrose 50% Inj) 0 ml IV STAT PRN; Protocol PRN Reason: Hypoglycemia Protocol Dextrose (Glutose 15) 0 gm PO ONCE PRN; Protocol PRN Reason: Hypoglycemia Protocol Glucagon (Glucagen Diagnostic Kit) 0 mg IM STAT PRN; Protocol PRN Reason: Hypoglycemia Protocol Heparin Sodium (Porcine) (Heparin) 5,000 units SC Q8 [facility] Last Admin: 10/15/17 05:08 Dose: 5,000 units Valproate Sodium 500 mg/ (Sodium Chloride) 105 mls @ 100 mls/hr IVPB Q12H [facility] Last Admin: 10/15/17 02:29 Dose: 100 mls/hr Insulin Human Regular (Novolin R) 0 unit SC ACHS [facility] PRN Reason: Protocol Last Admin: 10/15/17 08:30 Dose: 1 units Latanoprost (Xalatan Opht) 0 ml OU HS [facility] Last Admin: 10/14/17 22:12 Dose: 2.5 ml Metoprolol Tartrate (Lopressor) 12.5 mg PO BID [facility] Last Admin: 10/15/17 09:29 Dose: 12.5 mg Pantoprazole Sodium (Protonix Inj) 40 mg IVP DAILY [facility] Last Admin: 10/15/17 09:30 Dose: 40 mg - Labs Labs: 10/15/17 07:34 10/15/17 07:34 PT 10.9 SECONDS (9.7-12.2) 10/09/17 11:37 INR 1.0 10/09/17 11:37 APTT 26 SECONDS (21-34) 10/03/17 10:30 - Constitutional Appears: Non-toxic, No Acute Distress - Head Exam Additional comments: right sided incision and bandage in place - Eye Exam Eye Exam: PERRL. absent: EOMI Pupil Exam: PERRL Additional comments: Patient has left sided gaze palsy and upward gaze palsy - ENT Exam ENT Exam: Mucous Membranes Moist - Respiratory Exam Respiratory Exam: Clear to Ausculation Bilateral, NORMAL BREATHING PATTERN. absent: Accessory Muscle Use, Rales, Rhonchi, Wheezes, Respiratory Distress - Cardiovascular Exam Cardiovascular Exam: REGULAR RHYTHM, +S1, +S2. absent: Gallop, Rubs, Murmur - GI/Abdominal Exam GI & Abdominal Exam: Soft, Normal Bowel Sounds. absent: Distended, Firm, Guarding, Rigid, Tenderness, Organomegaly - Extremities Exam Extremities Exam: absent: Pedal Edema, Tenderness - Neurological Exam Neurological Exam: Alert, Awake. 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 LEAD SOFTWARE DEVELOPER Shunt repair -Neurosurgery Dr Hancock/Ella is ocnsulted -LEAD SOFTWARE DEVELOPER shunt change 10/10/2017 and 10/11/2017 - Neurology, Dr. Mota is consulted -CSF culture: no growth to date 10/10/17 -all cultures are negative and patient is improving and off antibiotics -continue valproate for seizure prophylaxis 2.Altered Mental Status -likely secondary to NPH and cerebral edema with enlarged ventricles. Improved -pass swallow eval. Currently on puree -Neuro checks -PT/OT 3.DM 2 Accuchecks ACHS Medium Dose insulin sliding scale Patient started on home levemir dose of 12 units BID Will hold home metformin for now Hypoglycemia protocol 4.HLD restarted on crestor 5 mg po hs 5.Asthma Will continue to monitor saturation 6.Hypertension Resume her home meds except lisinopril( s/p ARF) started on amlodipine and metoprolol 7.Elevated Creatinine - RESOLVED 8.Prophylactic measure heparin scds protonix social work consult requested for dc planning Case will be discussed with attending, Dr. Parsons <Jessica Parsons - Last Filed: 10/16/17 11:06> Objective - Vital Signs/Intake and Output Vital Signs (last 24 hours): Temp Pulse Resp BP Pulse Ox 98.1 F 79 18 119/76 96 10/15/17 15:41 10/15/17 15:41 10/15/17 15:41 10/15/17 15:41 10/15/17 15:41 Intake and Output: 10/15/17 10/15/17 06:59 18:59 Output Total 600 Balance -600 - Medications Medications: Current Medications Amlodipine Besylate (Norvasc) 5 mg PO DAILY [facility] Last Admin: 10/15/17 09:29 Dose: 5 mg Bupropion HCl (Wellbutrin Xl) 150 mg PO DAILY [facility] Last Admin: 10/11/17 09:06 Dose: Not Given Dextrose (Dextrose 50% Inj) 0 ml IV STAT PRN; Protocol PRN Reason: Hypoglycemia Protocol Dextrose (Glutose 15) 0 gm PO ONCE PRN; Protocol PRN Reason: Hypoglycemia Protocol Glucagon (Glucagen Diagnostic Kit) 0 mg IM STAT PRN; Protocol PRN Reason: Hypoglycemia Protocol Heparin Sodium (Porcine) (Heparin) 5,000 units SC Q8 [facility] Last Admin: 10/15/17 13:38 Dose: 5,000 units Valproate Sodium 500 mg/ (Sodium Chloride) 105 mls @ 100 mls/hr IVPB Q12H [facility] Last Admin: 10/15/17 13:38 Dose: 100 mls/hr Insulin Detemir (Levemir) 15 unit SC Q12 [facility] Insulin Human Regular (Novolin R) 0 unit SC ACHS [facility] PRN Reason: Protocol Last Admin: 10/15/17 12:20 Dose: 4 units Latanoprost (Xalatan Opht) 0 ml OU HS [facility] Last Admin: 10/14/17 22:12 Dose: 2.5 ml Metoprolol Tartrate (Lopressor) 12.5 mg PO BID [facility] Last Admin: 10/15/17 09:29 Dose: 12.5 mg Pantoprazole Sodium (Protonix Inj) 40 mg IVP DAILY [facility] Last Admin: 10/15/17 09:30 Dose: 40 mg Rosuvastatin Calcium (Crestor) 5 mg PO HS [facility] - Labs Labs: 10/15/17 07:34 10/15/17 07:34 PT 10.9 SECONDS (9.7-12.2) 10/09/17 11:37 INR 1.0 10/09/17 11:37 APTT 26 SECONDS (21-34) 10/03/17 10:30 Attending/Attestation - Attestation I have personally seen and examined this patient.: Yes I have fully participated in the care of the patient.: Yes I have reviewed all pertinent clinical information, including history, physical exam and plan: Yes Notes (Text): Patient was seen and examined by me. Discussed with ther daughter at bedside. patient didn't sleep last night as per her daughter. She is eating. We will resume her home meds. continue valproate Follow PT and speech therapist for swallowing study. Follow up with Neurosurgeon and neurologist d/w The resident I agree with her documentation
--- NOTE | 2017-10-15 10:52 | CP.PCM.PN ---
Subjective - Date & Time of Evaluation Date of Evaluation: 10/15/17 Time of Evaluation: 10:50 - Subjective Subjective: Ms. Diaz was seen and examined at the bedside. she is awake, alert, able to answer questions appropriately, opens her eyes spontaneously. She claims of having very minimal dull headache in the surgical site incision, 2/10, but denies any blurred vision, diplopia, nausea, or vomiting. She is able to follow simple commands. Valproic level is 29.6.There was no untoward events overnight. Objective - Vital Signs/Intake and Output Vital Signs (last 24 hours): Temp Pulse Resp BP Pulse Ox 97.7 F 63 18 108/68 98 10/15/17 08:35 10/15/17 08:35 10/15/17 08:35 10/15/17 08:35 10/15/17 08:35 - Medications Medications: Current Medications Amlodipine Besylate (Norvasc) 5 mg PO DAILY [facility] Last Admin: 10/15/17 09:29 Dose: 5 mg Bupropion HCl (Wellbutrin Xl) 150 mg PO DAILY [facility] Last Admin: 10/11/17 09:06 Dose: Not Given Dextrose (Dextrose 50% Inj) 0 ml IV STAT PRN; Protocol PRN Reason: Hypoglycemia Protocol Dextrose (Glutose 15) 0 gm PO ONCE PRN; Protocol PRN Reason: Hypoglycemia Protocol Glucagon (Glucagen Diagnostic Kit) 0 mg IM STAT PRN; Protocol PRN Reason: Hypoglycemia Protocol Heparin Sodium (Porcine) (Heparin) 5,000 units SC Q8 [facility] Last Admin: 10/15/17 05:08 Dose: 5,000 units Valproate Sodium 500 mg/ (Sodium Chloride) 105 mls @ 100 mls/hr IVPB Q12H [facility] Last Admin: 10/15/17 02:29 Dose: 100 mls/hr Insulin Human Regular (Novolin R) 0 unit SC ACHS [facility] PRN Reason: Protocol Last Admin: 10/15/17 08:30 Dose: 1 units Latanoprost (Xalatan Opht) 0 ml OU HS [facility] Last Admin: 10/14/17 22:12 Dose: 2.5 ml Metoprolol Tartrate (Lopressor) 12.5 mg PO BID [facility] Last Admin: 10/15/17 09:29 Dose: 12.5 mg Pantoprazole Sodium (Protonix Inj) 40 mg IVP DAILY [facility] Last Admin: 10/15/17 09:30 Dose: 40 mg - Labs Labs: 10/15/17 07:34 10/15/17 07:34 PT 10.9 SECONDS (9.7-12.2) 10/09/17 11:37 INR 1.0 10/09/17 11:37 APTT 26 SECONDS (21-34) 10/03/17 10:30 - Constitutional Appears: Well, No Acute Distress - Eye Exam Eye Exam: EOMI Pupil Exam: PERRL - ENT Exam ENT Exam: Mucous Membranes Moist - Neurological Exam Neurological Exam: Alert, Awake Neuro motor strength exam: Left Upper Extremity: 4, Right Upper Extremity: 4, Left Lower Extremity: 3, Right Lower Extremity: 3 Additional comments: Neurological improved from previous examination, participates in a pleasant conversation. Assessment and Plan (1) Mental status change Assessment & Plan: Case discussed with Dr. Mota, continue all current medical including AED medication, physical, and occupational therapies. Recommend to keep head of bed elevated at least 30 degrees,blood pressure control, glycemic control. Status: Acute
--- NOTE | 2017-10-15 19:57 | CP.PCM.PN ---
Subjective - Date & Time of Evaluation Date of Evaluation: 10/15/17 Time of Evaluation: 03:15 - Subjective Subjective: dictated Objective - Vital Signs/Intake and Output Vital Signs (last 24 hours): Temp Pulse Resp BP Pulse Ox 98.1 F 79 18 119/76 96 10/15/17 15:41 10/15/17 15:41 10/15/17 15:41 10/15/17 15:41 10/15/17 15:41 Intake and Output: 10/15/17 10/16/17 18:59 06:59 Output Total 600 Balance -600 - Medications Medications: Current Medications Amlodipine Besylate (Norvasc) 5 mg PO DAILY [facility] Last Admin: 10/15/17 09:29 Dose: 5 mg Bupropion HCl (Wellbutrin Xl) 150 mg PO DAILY [facility] Last Admin: 10/11/17 09:06 Dose: Not Given Dextrose (Dextrose 50% Inj) 0 ml IV STAT PRN; Protocol PRN Reason: Hypoglycemia Protocol Dextrose (Glutose 15) 0 gm PO ONCE PRN; Protocol PRN Reason: Hypoglycemia Protocol Glucagon (Glucagen Diagnostic Kit) 0 mg IM STAT PRN; Protocol PRN Reason: Hypoglycemia Protocol Heparin Sodium (Porcine) (Heparin) 5,000 units SC Q8 [facility] Last Admin: 10/15/17 13:38 Dose: 5,000 units Valproate Sodium 500 mg/ (Sodium Chloride) 105 mls @ 100 mls/hr IVPB Q12H [facility] Last Admin: 10/15/17 13:38 Dose: 100 mls/hr Insulin Detemir (Levemir) 15 unit SC Q12 [facility] Insulin Human Regular (Novolin R) 0 unit SC ACHS [facility] PRN Reason: Protocol Last Admin: 10/15/17 12:20 Dose: 4 units Latanoprost (Xalatan Opht) 0 ml OU HS [facility] Last Admin: 10/14/17 22:12 Dose: 2.5 ml Metoprolol Tartrate (Lopressor) 12.5 mg PO BID [facility] Last Admin: 10/15/17 18:39 Dose: 12.5 mg Pantoprazole Sodium (Protonix Inj) 40 mg IVP DAILY [facility] Last Admin: 10/15/17 09:30 Dose: 40 mg Rosuvastatin Calcium (Crestor) 5 mg PO HS [facility] - Labs Labs: 10/15/17 07:34 10/15/17 07:34 PT 10.9 SECONDS (9.7-12.2) 10/09/17 11:37 INR 1.0 10/09/17 11:37 APTT 26 SECONDS (21-34) 10/03/17 10:30
[2017-10-15] MEDS: Insulin Detemir 100 units/ml Vial (Levemir) SC SCH (22:09)
[2017-10-15] MEDS: Latanoprost 2.5 ml Opht Soln OU SCH (22:20)
--- NOTE | 2017-10-16 00:59 | PN ---
DATE: 10/15/2017 INFECTIOUS DISEASE FOLLOWUP SUBJECTIVE: The patient was seen today. She is off all antibiotics. She was very alert and being fed and has been communicating with the family and looked lot improved. PHYSICAL EXAMINATION: VITAL SIGNS: T-max is 98.1, pulse 79, blood pressure 119/76, respirations are 18. HEENT: Head: She still has a dressing on the right parietal area. Eyes are opened and she is trying to eat. NECK: Supple. LUNGS: Clear. No crackles or rales heard. HEART: S1, S2 is regular. ABDOMEN: Soft and nontender. No guarding. No rigidity present. EXTREMITIES: She has NEUROLOGIC: Her mental status has markedly improved. Cultures were all negative. White count is 7.3, and they did last culture yesterday of MRSA when they transferred from ICU, which is not detected. So she is status post SHREDDING MACHINE OPERATOR shunt change and this was third time I am told and needs rehab and is off antibiotics at this time, and Neurology and neurosurgeon is following. Naga Milton MD
[2017-10-16] MEDS: Valproate 500 MG in Sodium Chloride 0.9% 100 ML IVPB SCH ×2 (01:57→13:24)
--- NOTE | 2017-10-16 07:34 | PN ---
DATE: 10/15/2017 SUBJECTIVE: Ms. Diaz continues to do well. She is up on 6 tower. PHYSICAL EXAMINATION: GENERAL: She is bright awake and oriented x3. She is following all commands. NEUROLOGIC: Moving all extremities with good strength. IMPRESSION AND PLAN: We would suggest transfer to rehab as soon as possible. Fer Hancock MD
[2017-10-16] MEDS: (Novolin R) Insulin Human Regular 100 units/ml vial SC SCH ×4 (07:46→21:36)
[2017-10-16 07:57] LABS: BASO # 0.1 K/uL (0.0-0.2); BASO % 1.2 % (0.0-2.0); EOS # 0.2 K/uL (0.0-0.7); EOS % 3.4 % (0.0-4.0); HEMOGLOBIN 12.7 g/dL (11.0-16.0); LYMPH # 1.8 K/uL (1.0-4.3); LYMPH % 32.3 % (20.0-40.0); MEAN CELL VOLUME 84.9 fL (81.0-99.0); MEAN CORPUSCULAR HEMOGLOBIN 29.1 pg (27.0-31.0); MEAN CORPUSCULAR HGB CONC 34.2 g/dL (33.0-37.0); MEAN PLATELET VOLUME 8.3 fL (7.2-11.7); MONO # 0.4 K/uL (0.0-0.8); MONO % 7.5 % (0.0-10.0); NEUT # 3.1 K/uL (1.8-7.0); NEUT % 55.6 % (50.0-75.0); RBC 4.38 Mil/uL (3.80-5.20); RED CELL DISTRIBUTION WIDTH 14.7 % (11.5-14.5); WHITE BLOOD COUNT 5.5 K/uL (4.8-10.8)
--- NOTE | 2017-10-16 08:01 | CP.PCM.PN ---
Subjective - Date & Time of Evaluation Date of Evaluation: 10/16/17 Time of Evaluation: 08:01 - Subjective Subjective: Ms. Diaz was seen and examined at the bedside. she is awake, alert, able to answer questions appropriately, opens her eyes spontaneously. She is able to participate in a simple conversation.She claims of having very minimal dull headache in the surgical site incision, 2/10, but denies any blurred vision, diplopia, nausea, or vomiting. She is able to follow simple commands. There was no untoward events overnight. Objective - Vital Signs/Intake and Output Vital Signs (last 24 hours): Temp Pulse Resp BP Pulse Ox 97.8 F 74 20 125/78 95 10/15/17 23:10 10/15/17 23:10 10/15/17 23:10 10/15/17 23:10 10/15/17 23:10 Intake and Output: 10/16/17 10/16/17 06:59 18:59 Intake Total 400 Output Total 1500 Balance -1100 - Medications Medications: Current Medications Amlodipine Besylate (Norvasc) 5 mg PO DAILY [facility] Last Admin: 10/15/17 09:29 Dose: 5 mg Bupropion HCl (Wellbutrin Xl) 150 mg PO DAILY [facility] Last Admin: 10/11/17 09:06 Dose: Not Given Dextrose (Dextrose 50% Inj) 0 ml IV STAT PRN; Protocol PRN Reason: Hypoglycemia Protocol Dextrose (Glutose 15) 0 gm PO ONCE PRN; Protocol PRN Reason: Hypoglycemia Protocol Glucagon (Glucagen Diagnostic Kit) 0 mg IM STAT PRN; Protocol PRN Reason: Hypoglycemia Protocol Heparin Sodium (Porcine) (Heparin) 5,000 units SC Q8 [facility] Last Admin: 10/16/17 06:57 Dose: 5,000 units Valproate Sodium 500 mg/ (Sodium Chloride) 105 mls @ 100 mls/hr IVPB Q12H [facility] Last Admin: 10/16/17 01:57 Dose: 100 mls/hr Insulin Detemir (Levemir) 15 unit SC Q12 [facility] Last Admin: 10/15/17 22:09 Dose: 15 u Insulin Human Regular (Novolin R) 0 unit SC ACHS [facility] PRN Reason: Protocol Last Admin: 10/16/17 07:46 Dose: Not Given Latanoprost (Xalatan Opht) 0 ml OU HS [facility] Last Admin: 10/15/17 22:20 Dose: 2.5 ml Metoprolol Tartrate (Lopressor) 12.5 mg PO BID [facility] Last Admin: 10/15/17 18:39 Dose: 12.5 mg Pantoprazole Sodium (Protonix Inj) 40 mg IVP DAILY [facility] Last Admin: 10/15/17 09:30 Dose: 40 mg Rosuvastatin Calcium (Crestor) 5 mg PO [facility] Last Admin: 10/15/17 22:18 Dose: 5 mg - Labs Labs: 10/16/17 07:51 10/15/17 07:34 PT 10.9 SECONDS (9.7-12.2) 10/09/17 11:37 INR 1.0 10/09/17 11:37 APTT 26 SECONDS (21-34) 10/03/17 10:30 - Constitutional Appears: No Acute Distress - Eye Exam Pupil Exam: PERRL - Neurological Exam Neurological Exam: Alert, Awake, Oriented x3 Neuro motor strength exam: Left Upper Extremity: 3, Right Upper Extremity: 3, Left Lower Extremity: 2/1, Right Lower Extremity: 2/1 Additional comments: Neurological unchanged from previous examination. Assessment and Plan (1) Mental status change Assessment & Plan: Case discussed with Dr. Nixon, continue current medical, physical, and occupational therapies. Recommend CT scan of the head without contrast to evaluate any cerebral swelling, depakote 1000 mg IVPB for one dose, keep head of bed elevated at leastt 30 degrees, normotensive, glycemic control, treat any electrolyte abnormalities. Status: Acute
[2017-10-16 08:25] LABS: ALB/GLOB RATIO 1.2 (1.0-2.1); ALBUMIN 3.3 g/dL (3.5-5.0); ALT/SGPT 39 U/L (9-52); AST/SGOT 25 U/L (14-36); BLOOD UREA NITROGEN 12 mg/dL (7-17); CALCIUM 8.7 mg/dl (8.6-10.4); GFR AFRICAN-AMERICAN > 60; GFR NON-AFRICAN AMERICAN > 60
[2017-10-16] MEDS ORDERED: Valproate 1,000 MG in Sodium Chloride 0.9% 100 ML IVPB ONE (09:00)
[2017-10-16] MEDS: Insulin Detemir 100 units/ml Vial (Levemir) SC SCH ×2 (09:58→21:57)
[2017-10-16] MEDS: buPROPion 150 mg/24 Hours XL Tab PO SCH (10:07)
--- NOTE | 2017-10-16 12:28 | CT ---
PROCEDURE: CT HEAD WITHOUT CONTRAST. HISTORY: follow up with crebral swelling COMPARISON: 10/12/2017 TECHNIQUE: Axial computed tomography images were obtained through the head/brain without intravenous contrast. Radiation dose: Total exam DLP = 1046.38 mGy-cm. This CT exam was performed using one or more of the following dose reduction techniques: Automated exposure control, adjustment of the mA and/or kV according to patient size, and/or use of iterative reconstruction technique. FINDINGS: HEMORRHAGE: No intracranial hemorrhage. BRAIN: No intracranial mass. Right frontal ventriculostomy catheter terminating in frontal horn right lateral ventricle, unchanged. No evidence of acute infarct. Decreased periventricular lucency consistent with diminishing transependymal edema. . VENTRICLES: Decreased size of 3rd and lateral ventricles. 4th ventricle unchanged. No midline shift. CALVARIUM: Right frontal sarina hole for ventriculostomy catheter. Right frontal scalp surgical site with clayton and subcutaneous air. PARANASAL SINUSES: Unremarkable as visualized. No significant inflammatory changes. MASTOID AIR CELLS: Unremarkable as visualized. No inflammatory changes. OTHER FINDINGS: None. IMPRESSION: Diminishing ventriculomegaly presumably status post right frontal ventriculostomy adjustment/replacement. Decreasing transependymal edema. No other significant abnormality.
--- NOTE | 2017-10-16 16:04 | CP.PCM.PN ---
<Nikko Hart - Last Filed: 10/16/17 16:00> Subjective - Date & Time of Evaluation Date of Evaluation: 10/16/17 Time of Evaluation: 09:15 - Subjective Subjective: PGY1 Medicine Note for Dr. Beaulieu Patient seen and examined at bedside this morning. No acute events overnight. Patient is sitting in a chair at bedside upon walking into the room this morning. Patient is sitting conversing with her son at bedside. Patient is feeling great. Per son, patient experiences episodes of mild confusion but is easily reoriented. Patient reports double vision. Denies fevers, chills, nausea , vomiting, diarrhea, constipation, chest pain, shortness of breath, abdominal pain, headache, numbness or tingling. Objective - Vital Signs/Intake and Output Vital Signs (last 24 hours): Temp Pulse Resp BP Pulse Ox 97.9 F 65 18 134/70 96 10/16/17 07:45 10/16/17 07:45 10/16/17 07:45 10/16/17 07:45 10/16/17 07:45 Intake and Output: 10/16/17 10/16/17 06:59 18:59 Intake Total 400 480 Output Total 1500 300 Balance -1100 180 - Medications Medications: Current Medications Amlodipine Besylate (Norvasc) 5 mg PO DAILY [facility] Last Admin: 10/16/17 10:06 Dose: 5 mg Bupropion HCl (Wellbutrin Xl) 150 mg PO DAILY [facility] Last Admin: 10/16/17 10:07 Dose: 150 mg Dextrose (Dextrose 50% Inj) 0 ml IV STAT PRN; Protocol PRN Reason: Hypoglycemia Protocol Dextrose (Glutose 15) 0 gm PO ONCE PRN; Protocol PRN Reason: Hypoglycemia Protocol Glucagon (Glucagen Diagnostic Kit) 0 mg IM STAT PRN; Protocol PRN Reason: Hypoglycemia Protocol Heparin Sodium (Porcine) (Heparin) 5,000 units SC Q8 [facility] Last Admin: 10/16/17 13:18 Dose: 5,000 units Valproate Sodium 500 mg/ (Sodium Chloride) 105 mls @ 100 mls/hr IVPB Q12H [facility] Last Admin: 10/16/17 13:24 Dose: 100 mls/hr Insulin Detemir (Levemir) 15 unit SC Q12 [facility] Last Admin: 10/16/17 09:58 Dose: 15 u Insulin Human Regular (Novolin R) 0 unit SC ACHS [facility] PRN Reason: Protocol Last Admin: 10/16/17 12:14 Dose: 4 units Latanoprost (Xalatan Opht) 0 ml OU HS [facility] Last Admin: 10/15/17 22:20 Dose: 2.5 ml Metoprolol Tartrate (Lopressor) 12.5 mg PO BID [facility] Last Admin: 10/16/17 10:07 Dose: 12.5 mg Pantoprazole Sodium (Protonix Ec Tab) 40 mg PO DAILY [facility] Rosuvastatin Calcium (Crestor) 5 mg PO HS [facility] Last Admin: 10/15/17 22:18 Dose: 5 mg - Labs Labs: 10/16/17 07:51 10/16/17 07:51 PT 10.9 SECONDS (9.7-12.2) 10/09/17 11:37 INR 1.0 10/09/17 11:37 APTT 26 SECONDS (21-34) 10/03/17 10:30 - Constitutional Appears: Non-toxic, No Acute Distress - Head Exam Additional comments: right sided incision, dressing in place c/d/i - Eye Exam Eye Exam: EOMI, Normal appearance, PERRL - ENT Exam ENT Exam: Mucous Membranes Moist - Respiratory Exam Respiratory Exam: Clear to Ausculation Bilateral, NORMAL BREATHING PATTERN. absent: Rales, Rhonchi, Wheezes, Respiratory Distress - Cardiovascular Exam Cardiovascular Exam: REGULAR RHYTHM, +S1, +S2 - GI/Abdominal Exam GI & Abdominal Exam: Soft. 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 EDUCATION PROFESSOR Shunt repair -Neurosurgery Dr Hancock/Ella is consulted * f/u recommendations about possible discharge -EDUCATION PROFESSOR shunt change 10/10/2017 and 10/11/2017 -Neurology, Dr. Mota is consulted -CSF culture: no growth to date 10/10/17 -all cultures are negative and patient is improving and off antibiotics -continue valproate 500mg IVPB q12h for seizure prophylaxis * f/u valproate acid level in AM Altered Mental Status -likely secondary to NPH and cerebral edema with enlarged ventricles. Improved -pass swallow eval. Currently on puree -Neuro checks -PT/OT Diabetes Accuchecks ACHS Medium Dose insulin sliding scale Levemir dose of 15 units BID Will hold home metformin for now Hypoglycemia protocol HLD Restarted on crestor 5 mg po hs Asthma Will continue to monitor saturation Hypertension Amlodipine 5mg PO daily Metoprolol Tart 12.5mg PO BID Prophylactic measure Heparin 5,000units SC q8h SCDs Protonix 40mg PO daily social work consult requested for dc planning DISPO: Will need to discuss plan with Neurosurgery about discharge planning. As per PT, patient recommended for [facility]. Case discussed with Dr. Brittnee El Hailey PGY1 <David Beaulieu - Last Filed: 10/16/17 16:24> Objective - Vital Signs/Intake and Output Vital Signs (last 24 hours): Temp Pulse Resp BP Pulse Ox 97.7 F 67 20 101/63 96 10/16/17 15:08 10/16/17 15:08 10/16/17 15:08 10/16/17 15:08 10/16/17 15:08 Intake and Output: 10/16/17 10/16/17 06:59 18:59 Intake Total 400 480 Output Total 1500 300 Balance -1100 180 - Medications Medications: Current Medications Amlodipine Besylate (Norvasc) 5 mg PO DAILY [facility] Last Admin: 10/16/17 10:06 Dose: 5 mg Bupropion HCl (Wellbutrin Xl) 150 mg PO DAILY [facility] Last Admin: 10/16/17 10:07 Dose: 150 mg Dextrose (Dextrose 50% Inj) 0 ml IV STAT PRN; Protocol PRN Reason: Hypoglycemia Protocol Dextrose (Glutose 15) 0 gm PO ONCE PRN; Protocol PRN Reason: Hypoglycemia Protocol Glucagon (Glucagen Diagnostic Kit) 0 mg IM STAT PRN; Protocol PRN Reason: Hypoglycemia Protocol Heparin Sodium (Porcine) (Heparin) 5,000 units SC Q8 [facility] Last Admin: 10/16/17 13:18 Dose: 5,000 units Valproate Sodium 500 mg/ (Sodium Chloride) 105 mls @ 100 mls/hr IVPB Q12H [facility] Last Admin: 10/16/17 13:24 Dose: 100 mls/hr Insulin Detemir (Levemir) 15 unit SC Q12 [facility] Last Admin: 10/16/17 09:58 Dose: 15 u Insulin Human Regular (Novolin R) 0 unit SC ACHS [facility] PRN Reason: Protocol Last Admin: 10/16/17 12:14 Dose: 4 units Latanoprost (Xalatan Opht) 0 ml OU HS [facility] Last Admin: 10/15/17 22:20 Dose: 2.5 ml Metoprolol Tartrate (Lopressor) 12.5 mg PO BID [facility] Last Admin: 10/16/17 10:07 Dose: 12.5 mg Pantoprazole Sodium (Protonix Ec Tab) 40 mg PO DAILY [facility] Rosuvastatin Calcium (Crestor) 5 mg PO HS [facility] Last Admin: 10/15/17 22:18 Dose: 5 mg - Labs Labs: 10/16/17 07:51 10/16/17 07:51 PT 10.9 SECONDS (9.7-12.2) 10/09/17 11:37 INR 1.0 10/09/17 11:37 APTT 26 SECONDS (21-34) 10/03/17 10:30 Attending/Attestation - Attestation I have personally seen and examined this patient.: Yes I have fully participated in the care of the patient.: Yes I have reviewed all pertinent clinical information, including history, physical exam and plan: Yes Notes (Text): 10/16/17 16:20 Medical attending: Patient was seen and examined by me. Agree with the above note by the resident Patient was seen and examined by me. Family was present at bedside. Today she was awake, alert, able to answer questions and follow commands. Her affect was slightly slow however family at bedside remarked that she appeared remarkably well She walked several steps with PT. Pending a repeat CT of the head thank you David Beaulieu
[2017-10-16] MEDS: Latanoprost 2.5 ml Opht Soln OU SCH (22:00)
[2017-10-17] MEDS: Valproate 500 MG in Sodium Chloride 0.9% 100 ML IVPB SCH ×2 (02:05→13:32)
[2017-10-17 07:02] LABS: BASO % 0.8 % (0.0-2.0); EOS # 0.2 K/uL (0.0-0.7); EOS % 3.7 % (0.0-4.0); HEMOGLOBIN 13.1 g/dL (11.0-16.0); LYMPH # 2.5 K/uL (1.0-4.3); LYMPH % 40.7 % (20.0-40.0); MEAN CELL VOLUME 84.4 fL (81.0-99.0); MEAN CORPUSCULAR HEMOGLOBIN 29.7 pg (27.0-31.0); MEAN CORPUSCULAR HGB CONC 35.1 g/dL (33.0-37.0); MONO # 0.4 K/uL (0.0-0.8); MONO % 6.9 % (0.0-10.0); NEUT % 47.9 % (50.0-75.0); NRBC % 0.1 % (0.0-2.0); RBC 4.42 Mil/uL (3.80-5.20); RED CELL DISTRIBUTION WIDTH 14.6 % (11.5-14.5); WHITE BLOOD COUNT 6.2 K/uL (4.8-10.8)
[2017-10-17 07:36] LABS: ALB/GLOB RATIO 1.3 (1.0-2.1); ALBUMIN 3.4 g/dL (3.5-5.0); ALT/SGPT 35 U/L (9-52); AST/SGOT 22 U/L (14-36); BLOOD UREA NITROGEN 8 mg/dL (7-17); CALCIUM 8.9 mg/dl (8.6-10.4); GFR AFRICAN-AMERICAN > 60; GFR NON-AFRICAN AMERICAN > 60
[2017-10-17] MEDS: (Novolin R) Insulin Human Regular 100 units/ml vial SC SCH ×4 (08:27→22:04)
[2017-10-17] MEDS: buPROPion 150 mg/24 Hours XL Tab PO SCH (09:56)
[2017-10-17] MEDS: Pantoprazole 40 mg EC Tab PO SCH (09:56)
[2017-10-17] MEDS: Insulin Detemir 100 units/ml Vial (Levemir) SC SCH ×2 (09:57→22:03)
--- NOTE | 2017-10-17 15:22 | CP.PCM.PN ---
<Nikko Hart - Last Filed: 10/17/17 14:56> Subjective - Date & Time of Evaluation Date of Evaluation: 10/17/17 Time of Evaluation: 09:10 - Subjective Subjective: PGY1 Medicine for Dr. Beaulieu Patient seen and examined at bedside this morning. No acute events at night. Patient is sitting up in a chair with her sister at bedside. Patient is feeling well and has no complaints at this time. She was able to stand up on her own and hold herself up without assistance but did not attempt to walk on her own. Denies fevers, chills, nausea, vomiting, diarrhea, constipation, chest pain, shortness of breath, abdominal pain, headache, numbness or tingling. Objective - Vital Signs/Intake and Output Vital Signs (last 24 hours): Temp Pulse Resp BP Pulse Ox 97.8 F 105 H 20 126/82 97 10/17/17 08:19 10/17/17 08:19 10/17/17 08:19 10/17/17 08:19 10/17/17 08:19 Intake and Output: 10/17/17 10/17/17 06:59 18:59 Output Total 2250 Balance -2250 - Medications Medications: Current Medications Amlodipine Besylate (Norvasc) 5 mg PO DAILY [facility] Last Admin: 10/17/17 09:56 Dose: 5 mg Bupropion HCl (Wellbutrin Xl) 150 mg PO DAILY [facility] Last Admin: 10/17/17 09:56 Dose: 150 mg Dextrose (Dextrose 50% Inj) 0 ml IV STAT PRN; Protocol PRN Reason: Hypoglycemia Protocol Dextrose (Glutose 15) 0 gm PO ONCE PRN; Protocol PRN Reason: Hypoglycemia Protocol Glucagon (Glucagen Diagnostic Kit) 0 mg IM STAT PRN; Protocol PRN Reason: Hypoglycemia Protocol Heparin Sodium (Porcine) (Heparin) 5,000 units SC Q8 [facility] Last Admin: 10/17/17 13:32 Dose: 5,000 units Valproate Sodium 500 mg/ (Sodium Chloride) 105 mls @ 100 mls/hr IVPB Q12H [facility] Last Admin: 10/17/17 13:32 Dose: 100 mls/hr Insulin Detemir (Levemir) 15 unit SC Q12 [facility] Last Admin: 10/17/17 09:57 Dose: 15 units Insulin Human Regular (Novolin R) 0 unit SC ACHS [facility] PRN Reason: Protocol Last Admin: 10/17/17 12:16 Dose: 3 units Latanoprost (Xalatan Opht) 0 ml OU HS [facility] Last Admin: 10/16/17 22:00 Dose: 2.5 ml Metoprolol Tartrate (Lopressor) 12.5 mg PO BID [facility] Last Admin: 10/17/17 09:56 Dose: 12.5 mg Pantoprazole Sodium (Protonix Ec Tab) 40 mg PO DAILY [facility] Last Admin: 10/17/17 09:56 Dose: 40 mg Rosuvastatin Calcium (Crestor) 5 mg PO HS [facility] Last Admin: 10/16/17 21:58 Dose: 5 mg - Labs Labs: 10/17/17 06:53 10/17/17 06:53 PT 10.9 SECONDS (9.7-12.2) 10/09/17 11:37 INR 1.0 10/09/17 11:37 APTT 26 SECONDS (21-34) 10/03/17 10:30 Assessment and Plan - Assessment and Plan (Free Text) Plan: - Constitutional Appears: Non-toxic, No Acute Distress - Head Exam Additional comments: right sided incision, dressing in place c/d/i - Eye Exam Eye Exam: EOMI, Normal appearance, PERRL - ENT Exam ENT Exam: Mucous Membranes Moist - Respiratory Exam Respiratory Exam: Clear to Ausculation Bilateral, NORMAL BREATHING PATTERN. absent: Rales, Rhonchi, Wheezes, Respiratory Distress - Cardiovascular Exam Cardiovascular Exam: REGULAR RHYTHM, +S1, +S2 - GI/Abdominal Exam GI & Abdominal Exam: Soft. 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 MINE CAPTAIN Shunt repair -Neurosurgery Dr Hancock/Ella is consulted * f/u recommendations about possible discharge -MINE CAPTAIN shunt change 10/10/2017 and 10/11/2017 -Neurology, Dr. Mota is consulted -CSF culture: no growth to date 10/10/17 -all cultures are negative and patient is improving and off antibiotics -continue valproate 500mg IVPB q12h for seizure prophylaxis * f/u valproate acid level in AM Altered Mental Status -likely secondary to NPH and cerebral edema with enlarged ventricles. Improved -pass swallow eval. Currently on puree -Neuro checks -PT/OT Diabetes Accuchecks ACHS Medium Dose insulin sliding scale Levemir dose of 15 units BID Will hold home metformin for now Hypoglycemia protocol HLD Crestor 5 mg po hs Asthma Will continue to monitor saturation Hypertension Amlodipine 5mg PO daily Metoprolol Tart 12.5mg PO BID Prophylactic measure Heparin 5,000units SC q8h [facility] Protonix 40mg PO daily social work consult requested for dc planning DISPO: Patient cleared for discharge to rehab per Neurosurgery. As per PT, patient recommended for [facility]. Start discharge planning, patient's family has requested a rehab center in [place] as patient has a very pleasant rehab stay there after her last surgery. Case discussed with Dr. Brittnee El Hailey PGY1 <David Beaulieu H - Last Filed: 10/17/17 16:12> Objective - Vital Signs/Intake and Output Vital Signs (last 24 hours): Temp Pulse Resp BP Pulse Ox 97.8 F 105 H 20 126/82 97 10/17/17 08:19 10/17/17 08:19 10/17/17 08:19 10/17/17 08:19 10/17/17 08:19 Intake and Output: 10/17/17 10/17/17 06:59 18:59 Output Total 2250 Balance -2250 - Medications Medications: Current Medications Amlodipine Besylate (Norvasc) 5 mg PO DAILY [facility] Last Admin: 10/17/17 09:56 Dose: 5 mg Bupropion HCl (Wellbutrin Xl) 150 mg PO DAILY [facility] Last Admin: 10/17/17 09:56 Dose: 150 mg Dextrose (Dextrose 50% Inj) 0 ml IV STAT PRN; Protocol PRN Reason: Hypoglycemia Protocol Dextrose (Glutose 15) 0 gm PO ONCE PRN; Protocol PRN Reason: Hypoglycemia Protocol Glucagon (Glucagen Diagnostic Kit) 0 mg IM STAT PRN; Protocol PRN Reason: Hypoglycemia Protocol Heparin Sodium (Porcine) (Heparin) 5,000 units SC Q8 [facility] Last Admin: 10/17/17 13:32 Dose: 5,000 units Valproate Sodium 500 mg/ (Sodium Chloride) 105 mls @ 100 mls/hr IVPB Q12H [facility] Last Admin: 10/17/17 13:32 Dose: 100 mls/hr Insulin Detemir (Levemir) 15 unit SC Q12 [facility] Last Admin: 10/17/17 09:57 Dose: 15 units Insulin Human Regular (Novolin R) 0 unit SC ACHS [facility] PRN Reason: Protocol Last Admin: 10/17/17 12:16 Dose: 3 units Latanoprost (Xalatan Opht) 0 ml OU HS [facility] Last Admin: 10/16/17 22:00 Dose: 2.5 ml Metoprolol Tartrate (Lopressor) 12.5 mg PO BID [facility] Last Admin: 10/17/17 09:56 Dose: 12.5 mg Pantoprazole Sodium (Protonix Ec Tab) 40 mg PO DAILY [facility] Last Admin: 10/17/17 09:56 Dose: 40 mg Rosuvastatin Calcium (Crestor) 5 mg PO HS [facility] Last Admin: 10/16/17 21:58 Dose: 5 mg - Labs Labs: 10/17/17 06:53 10/17/17 06:53 PT 10.9 SECONDS (9.7-12.2) 10/09/17 11:37 INR 1.0 10/09/17 11:37 APTT 26 SECONDS (21-34) 10/03/17 10:30 Attending/Attestation - Attestation I have personally seen and examined this patient.: Yes I have fully participated in the care of the patient.: Yes I have reviewed all pertinent clinical information, including history, physical exam and plan: Yes Notes (Text): 10/17/17 16:11 Medical attending: Patient was seen and examined by me. Agree with the above note by the resident The patient's sister was present at bedside today Discussed with case workers and will try to see if patient can go to [place] for [facility]. thank you David Beaulieu
[2017-10-17] MEDS: Latanoprost 2.5 ml Opht Soln OU SCH (22:04)
[2017-10-18] MEDS ORDERED: Potassium Chloride 20 mEq/15 ml LIQ UD PO ONE (00:15)
[2017-10-18] MEDS: Valproate 500 MG in Sodium Chloride 0.9% 100 ML IVPB SCH ×2 (02:06→13:17)
[2017-10-18 07:26] LABS: ARTERIAL BLOOD GAS HCO3 29.3 mmol/L (21-28); ARTERIAL BLOOD GAS O2 SAT 98.1 % (95-98); ARTERIAL BLOOD GAS PCO2 35 mm/Hg (35-45); ARTERIAL BLOOD GAS PH 7.52 (7.35-7.45); ARTERIAL BLOOD GAS PO2 81 mm/Hg (80-100); ARTERIAL BLOOD GAS TCO2 29.7 mmol/L (22-28)
--- NOTE | 2017-10-18 08:19 | CP.PCM.PN ---
Subjective - Date & Time of Evaluation Date of Evaluation: 10/18/17 Time of Evaluation: 08:15 - Subjective Subjective: Ms. Diaz was seen and examined at the bedside. She is lethargic, opens her eyes with deep tactile stimuli but with blank stare, unable to utter any words or follow any commands. She withdraws from painful stimuli.Blood sugar was 171 mg/dl, SPO2-96 at room air GCS- 4. Objective - Vital Signs/Intake and Output Vital Signs (last 24 hours): Temp Pulse Resp BP Pulse Ox 97.6 F 86 20 143/96 H 95 10/18/17 04:00 10/18/17 04:00 10/18/17 04:00 10/18/17 04:00 10/18/17 04:00 Intake and Output: 10/18/17 10/18/17 06:59 18:59 Intake Total 175 Balance 175 - Medications Medications: Current Medications Amlodipine Besylate (Norvasc) 5 mg PO DAILY [facility] Last Admin: 10/17/17 09:56 Dose: 5 mg Bupropion HCl (Wellbutrin Xl) 150 mg PO DAILY [facility] Last Admin: 10/17/17 09:56 Dose: 150 mg Dextrose (Dextrose 50% Inj) 0 ml IV STAT PRN; Protocol PRN Reason: Hypoglycemia Protocol Dextrose (Glutose 15) 0 gm PO ONCE PRN; Protocol PRN Reason: Hypoglycemia Protocol Glucagon (Glucagen Diagnostic Kit) 0 mg IM STAT PRN; Protocol PRN Reason: Hypoglycemia Protocol Heparin Sodium (Porcine) (Heparin) 5,000 units SC Q8 [facility] Last Admin: 10/18/17 05:31 Dose: 5,000 units Valproate Sodium 500 mg/ (Sodium Chloride) 105 mls @ 100 mls/hr IVPB Q12H [facility] Last Admin: 10/18/17 02:06 Dose: 100 mls/hr Insulin Detemir (Levemir) 15 unit SC Q12 [facility] Last Admin: 10/17/17 22:03 Dose: 15 units Insulin Human Regular (Novolin R) 0 unit SC ACHS [facility] PRN Reason: Protocol Last Admin: 10/17/17 22:04 Dose: Not Given Latanoprost (Xalatan Opht) 0 ml OU HS [facility] Last Admin: 10/17/17 22:04 Dose: 2.5 ml Metoprolol Tartrate (Lopressor) 12.5 mg PO BID [facility] Last Admin: 10/17/17 17:56 Dose: Not Given Pantoprazole Sodium (Protonix Ec Tab) 40 mg PO DAILY [facility] Last Admin: 10/17/17 09:56 Dose: 40 mg Rosuvastatin Calcium (Crestor) 5 mg PO HS [facility] Last Admin: 10/17/17 22:04 Dose: 5 mg - Labs Labs: 10/17/17 06:53 10/17/17 06:53 PT 10.9 SECONDS (9.7-12.2) 10/09/17 11:37 INR 1.0 10/09/17 11:37 APTT 26 SECONDS (21-34) 10/03/17 10:30 - Constitutional Appears: No Acute Distress - Eye Exam Pupil Exam: PERRL Additional comments: 3 mm sluggish bilateral - Neurological Exam Neuro motor strength exam: Left Upper Extremity: 0, Right Upper Extremity: 0, Left Lower Extremity: 0, Right Lower Extremity: 0 Additional comments: GCS 4 Assessment and Plan (1) Mental status change Assessment & Plan: Case discussed with Dr. Nixon, continue all current medical regimen, recommend neurosurgery input TAM, normotension, normothermic, glycemic control, and keep head of bed elevated at least 40 degrees. monitor neurostatus closely at least q 1 hour until neurosurgery can evaluate. Status: Acute
[2017-10-18 08:34] LABS: BASO # 0.1 K/uL (0.0-0.2); BASO % 0.9 % (0.0-2.0); EOS # 0.1 K/uL (0.0-0.7); EOS % 2.1 % (0.0-4.0); LYMPH # 1.9 K/uL (1.0-4.3); LYMPH % 29.9 % (20.0-40.0); MEAN CELL VOLUME 85.7 fL (81.0-99.0); MEAN CORPUSCULAR HEMOGLOBIN 29.6 pg (27.0-31.0); MEAN CORPUSCULAR HGB CONC 34.6 g/dL (33.0-37.0); MEAN PLATELET VOLUME 8.3 fL (7.2-11.7); MONO # 0.4 K/uL (0.0-0.8); MONO % 6.9 % (0.0-10.0); NEUT # 3.9 K/uL (1.8-7.0); NEUT % 60.2 % (50.0-75.0); NRBC % 0.1 % (0.0-2.0); RBC 4.41 Mil/uL (3.80-5.20); RED CELL DISTRIBUTION WIDTH 14.7 % (11.5-14.5); WHITE BLOOD COUNT 6.5 K/uL (4.8-10.8)
[2017-10-18 08:49] LABS: ALB/GLOB RATIO 1.2 (1.0-2.1); ALBUMIN 3.5 g/dL (3.5-5.0); ALT/SGPT 33 U/L (9-52); AST/SGOT 25 U/L (14-36); BLOOD UREA NITROGEN 13 mg/dL (7-17); CALCIUM 9.1 mg/dl (8.6-10.4); GFR AFRICAN-AMERICAN > 60; GFR NON-AFRICAN AMERICAN > 60
--- NOTE | 2017-10-18 09:48 | CP.PCM.PN ---
<Nikko Hart - Last Filed: 10/18/17 11:10> Subjective - Date & Time of Evaluation Date of Evaluation: 10/18/17 Time of Evaluation: 07:00 - Subjective Subjective: PGY1 Medicine Note for Dr. Beaulieu Patient seen and examined this morning at bedside. The patient was very lethargic and only opened her eyes after sternal rub and withdrawals from pain. When her eyes are open, she has a blank stare on her face. She is unable to follow any commands and is not making sense while attempting to speak. Her blood sugar was checked and found to be 171. Patient was sent to for head CT and Dr. Hancock's answering service was called to make him aware of patient. ROS unattainable. Objective - Vital Signs/Intake and Output Vital Signs (last 24 hours): Temp Pulse Resp BP Pulse Ox 98.1 F 65 20 98/62 L 95 10/18/17 07:10 10/18/17 07:10 10/18/17 07:10 10/18/17 07:10 10/18/17 07:10 Intake and Output: 10/18/17 10/18/17 06:59 18:59 Intake Total 175 Balance 175 - Medications Medications: Current Medications Amlodipine Besylate (Norvasc) 5 mg PO DAILY [facility] Last Admin: 10/17/17 09:56 Dose: 5 mg Bupropion HCl (Wellbutrin Xl) 150 mg PO DAILY [facility] Last Admin: 10/17/17 09:56 Dose: 150 mg Dextrose (Dextrose 50% Inj) 0 ml IV STAT PRN; Protocol PRN Reason: Hypoglycemia Protocol Dextrose (Glutose 15) 0 gm PO ONCE PRN; Protocol PRN Reason: Hypoglycemia Protocol Glucagon (Glucagen Diagnostic Kit) 0 mg IM STAT PRN; Protocol PRN Reason: Hypoglycemia Protocol Heparin Sodium (Porcine) (Heparin) 5,000 units SC Q8 [facility] Last Admin: 10/18/17 05:31 Dose: 5,000 units Valproate Sodium 500 mg/ (Sodium Chloride) 105 mls @ 100 mls/hr IVPB Q12H [facility] Last Admin: 10/18/17 02:06 Dose: 100 mls/hr Insulin Detemir (Levemir) 15 unit SC Q12 [facility] Last Admin: 10/17/17 22:03 Dose: 15 units Insulin Human Regular (Novolin R) 0 unit SC ACHS [facility] PRN Reason: Protocol Last Admin: 10/17/17 22:04 Dose: Not Given Latanoprost (Xalatan Opht) 0 ml OU HS [facility] Last Admin: 10/17/17 22:04 Dose: 2.5 ml Metoprolol Tartrate (Lopressor) 12.5 mg PO BID [facility] Last Admin: 10/17/17 17:56 Dose: Not Given Pantoprazole Sodium (Protonix Ec Tab) 40 mg PO DAILY [facility] Last Admin: 10/17/17 09:56 Dose: 40 mg Rosuvastatin Calcium (Crestor) 5 mg PO HS [facility] Last Admin: 10/17/17 22:04 Dose: 5 mg - Labs Labs: 10/18/17 08:16 10/18/17 08:16 PT 10.9 SECONDS (9.7-12.2) 10/09/17 11:37 INR 1.0 10/09/17 11:37 APTT 26 SECONDS (21-34) 10/03/17 10:30 - Constitutional Appears: Confused, Other (Very lethargic, blank stare.) - Head Exam Additional comments: Dressing in place on right side of head, c/d/i - Eye Exam Additional comments: blank stare, pupils sluggish b/l - ENT Exam ENT Exam: Mucous Membranes Moist - Neck Exam Neck Exam: absent: Lymphadenopathy - Respiratory Exam Respiratory Exam: Clear to Ausculation Bilateral, NORMAL BREATHING PATTERN. absent: Accessory Muscle Use, Rales, Rhonchi, Wheezes, Respiratory Distress - Cardiovascular Exam Cardiovascular Exam: REGULAR RHYTHM, +S1, +S2 - GI/Abdominal Exam GI & Abdominal Exam: Soft, Normal Bowel Sounds. absent: Distended, Firm, Guarding, Rigid, Tenderness - Extremities Exam Extremities Exam: absent: Calf Tenderness, Pedal Edema - Neurological Exam Neurological Exam: Altered Additional comments: Patient responds to pain. Moves all four extremities to pain. - Skin Skin Exam: Dry, Warm Assessment and Plan - Assessment and Plan (Free Text) Plan: [employer] shunt malfunction and change in mental status Patient had been conversing normally yesterday but this morning had an acute decline in her mental status. A head CT was ordered and Dr. Hancock's service was contacted to make him aware at approximately 0700 and again at 0930. He is to be inhouse later this morning and will evaluate patient at this time. Head CT 10/18/17: Worsening hydrocephalus despite right transfrontal ventriculostomy catheter. 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 [employer] Shunt repair -Neurosurgery Dr Hancock/Ella is consulted * Dr. Hancock's office called and made aware of acute change in patient's mental status. * Will wait to for recs -Neurology consulted, Dr. Nixon -[employer] shunt changed on 10/10/2017 and 10/11/2017 -Neurology, Dr. Mota is consulted -CSF culture: no growth to date 10/10/17 -all cultures are negative and patient is improving and off antibiotics -continue valproate 500mg IVPB q12h for seizure prophylaxis * valproate acid level 42.8 on 10/17 Altered Mental Status -likely secondary to NPH and cerebral edema with enlarged ventricles. Improved -pass swallow eval. Currently on puree -Neuro checks -PT/OT Diabetes Accuchecks ACHS Medium Dose insulin sliding scale Levemir dose of 15 units BID - Held due to patient's decrease in mental status and is unable to eat any food. Will hold home metformin for now Hypoglycemia protocol HLD Crestor 5 mg po hs Asthma Will continue to monitor saturation Hypertension Amlodipine 5mg PO daily Metoprolol Tart 12.5mg PO BID Prophylactic measure Heparin 5,000units SC q8h SCDs Protonix 40mg PO daily social work consult requested for dc planning DISPO: Patient's discharge planning has been placed back on hold due to acute change in mental status. Will need to discuss with neurosurgery prior to any discussions of discharge can resume. Case discussed with Dr. Brittnee El Hailey PGY1 <David Beaulieu - Last Filed: 10/18/17 15:59> Objective - Vital Signs/Intake and Output Vital Signs (last 24 hours): Temp Pulse Resp BP Pulse Ox 98.1 F 65 20 98/62 L 95 10/18/17 07:10 10/18/17 07:10 10/18/17 07:10 10/18/17 07:10 10/18/17 07:10 Intake and Output: 10/18/17 10/18/17 06:59 18:59 Intake Total 175 Balance 175 - Medications Medications: Current Medications Amlodipine Besylate (Norvasc) 5 mg PO DAILY [facility] Last Admin: 10/18/17 10:39 Dose: Not Given Bupropion HCl (Wellbutrin Xl) 150 mg PO DAILY [facility] Last Admin: 10/18/17 10:39 Dose: Not Given Dextrose (Dextrose 50% Inj) 0 ml IV STAT PRN; Protocol PRN Reason: Hypoglycemia Protocol Dextrose (Glutose 15) 0 gm PO ONCE PRN; Protocol PRN Reason: Hypoglycemia Protocol Glucagon (Glucagen Diagnostic Kit) 0 mg IM STAT PRN; Protocol PRN Reason: Hypoglycemia Protocol Heparin Sodium (Porcine) (Heparin) 5,000 units SC Q8 [facility] Last Admin: 10/18/17 05:31 Dose: 5,000 units Valproate Sodium 500 mg/ (Sodium Chloride) 105 mls @ 100 mls/hr IVPB Q12H [facility] Last Admin: 10/18/17 13:17 Dose: 100 mls/hr Insulin Detemir (Levemir) 15 unit SC Q12 [facility] Last Admin: 10/18/17 12:00 Dose: Not Given Insulin Human Regular (Novolin R) 0 unit SC ACHS [facility] PRN Reason: Protocol Last Admin: 10/18/17 12:01 Dose: Not Given Latanoprost (Xalatan Opht) 0 ml OU HS [facility] Last Admin: 10/17/17 22:04 Dose: 2.5 ml Metoprolol Tartrate (Lopressor) 12.5 mg PO BID [facility] Last Admin: 10/18/17 10:39 Dose: Not Given Pantoprazole Sodium (Protonix Ec Tab) 40 mg PO DAILY [facility] Last Admin: 10/18/17 10:39 Dose: Not Given Rosuvastatin Calcium (Crestor) 5 mg PO HS [facility] Last Admin: 10/17/17 22:04 Dose: 5 mg - Labs Labs: 10/18/17 08:16 10/18/17 08:16 PT 10.9 SECONDS (9.7-12.2) 10/09/17 11:37 INR 1.0 10/09/17 11:37 APTT 26 SECONDS (21-34) 10/03/17 10:30 Attending/Attestation - Attestation I have personally seen and examined this patient.: Yes I have fully participated in the care of the patient.: Yes I have reviewed all pertinent clinical information, including history, physical exam and plan: Yes Notes (Text): 10/18/17 15:54 Medical attending: Patient was seen and examined by me. Reviewed above note by the resident and agree. The patient was difficult to arouse this morning. She was non verbal and did not respond to sternal rub. This is a large change from Monday when she was awake and alert and interactive with us and family A stat CT was done showing the ventricles are again enlarged. ABG was normal. I asked biomedical repair technician to contact neurosurgery and from what I understand she may need to go to the OR again David Beaulieu
[2017-10-18] MEDS: (Novolin R) Insulin Human Regular 100 units/ml vial SC SCH ×4 (10:38→22:27)
[2017-10-18] MEDS: buPROPion 150 mg/24 Hours XL Tab PO SCH (10:39)
[2017-10-18] MEDS: Pantoprazole 40 mg EC Tab PO SCH (10:39)
--- NOTE | 2017-10-18 10:39 | CT ---
PROCEDURE: CT HEAD WITHOUT CONTRAST. HISTORY: hx of NPH, recent shunt revision, altered thismorn COMPARISON: CT head dated 10/16/2017. TECHNIQUE: Axial computed tomography images were obtained through the head/brain without intravenous contrast. Radiation dose: Total exam DLP = 1042.0 mGy-cm. This CT exam was performed using one or more of the following dose reduction techniques: Automated exposure control, adjustment of the mA and/or kV according to patient size, and/or use of iterative reconstruction technique. FINDINGS: HEMORRHAGE: No intracranial hemorrhage. BRAIN: No mass effect or edema. No atrophy or chronic microvascular ischemic changes. Right basal ganglia lacunar infarction redemonstrated. Posterior periventricular hypoattenuation likely represents transependymal flow of CSF. VENTRICLES: Right transfrontal ventriculostomy catheter with tip in the body of the right ventricle. Interval enlargement. CALVARIUM: Right frontal sarina hole. PARANASAL SINUSES: Unremarkable as visualized. No significant inflammatory changes. MASTOID AIR CELLS: Unremarkable as visualized. No inflammatory changes. OTHER FINDINGS: None. IMPRESSION: Worsening hydrocephalus despite right transfrontal ventriculostomy catheter.
[2017-10-18] MEDS: Insulin Detemir 100 units/ml Vial (Levemir) SC SCH ×2 (12:00→22:16)
[2017-10-18] MEDS: Latanoprost 2.5 ml Opht Soln OU SCH (22:15)
[2017-10-19] MEDS: Valproate 500 MG in Sodium Chloride 0.9% 100 ML IVPB SCH ×2 (02:18→14:21)
[2017-10-19 07:02] LABS: BASO # 0.1 K/uL (0.0-0.2); EOS # 0.2 K/uL (0.0-0.7); EOS % 3.7 % (0.0-4.0); HEMOGLOBIN 12.9 g/dL (11.0-16.0); LYMPH # 2.7 K/uL (1.0-4.3); LYMPH % 40.5 % (20.0-40.0); MEAN CELL VOLUME 85.8 fL (81.0-99.0); MEAN CORPUSCULAR HEMOGLOBIN 29.6 pg (27.0-31.0); MEAN CORPUSCULAR HGB CONC 34.5 g/dL (33.0-37.0); MEAN PLATELET VOLUME 8.2 fL (7.2-11.7); MONO # 0.5 K/uL (0.0-0.8); MONO % 8.2 % (0.0-10.0); NEUT # 3.1 K/uL (1.8-7.0); NEUT % 46.6 % (50.0-75.0); NRBC % 0.1 % (0.0-2.0); RBC 4.37 Mil/uL (3.80-5.20); RED CELL DISTRIBUTION WIDTH 14.8 % (11.5-14.5); WHITE BLOOD COUNT 6.6 K/uL (4.8-10.8)
--- NOTE | 2017-10-19 07:21 | CP.PCM.PN ---
Subjective - Date & Time of Evaluation Date of Evaluation: 10/19/17 Time of Evaluation: 07:21 - Subjective Subjective: Ms. Diaz was seen and examined at the bedside. She remains lethargic, opens her eyes with deep tactile stimuli but with blank stare, unable to utter any words or follow any commands. She withdraws from painful stimuli. Repeat CT scan of the head done yesterday showed worsening hydrocephalus despite right transfrontal ventriculostomy catheter. The patient is schedule for revision of UNIT DIRECTOR shunt this morning.There was no untoward events overnight. Objective - Vital Signs/Intake and Output Vital Signs (last 24 hours): Temp Pulse Resp BP Pulse Ox 98.5 F 71 20 128/86 96 10/19/17 06:30 10/19/17 06:30 10/19/17 06:30 10/19/17 06:30 10/19/17 06:30 - Medications Medications: Current Medications Amlodipine Besylate (Norvasc) 5 mg PO DAILY [facility] Last Admin: 10/18/17 10:39 Dose: Not Given Bupropion HCl (Wellbutrin Xl) 150 mg PO DAILY [facility] Last Admin: 10/18/17 10:39 Dose: Not Given Dextrose (Dextrose 50% Inj) 0 ml IV STAT PRN; Protocol PRN Reason: Hypoglycemia Protocol Dextrose (Glutose 15) 0 gm PO ONCE PRN; Protocol PRN Reason: Hypoglycemia Protocol Glucagon (Glucagen Diagnostic Kit) 0 mg IM STAT PRN; Protocol PRN Reason: Hypoglycemia Protocol Heparin Sodium (Porcine) (Heparin) 5,000 units SC Q8 [facility] Last Admin: 10/19/17 05:52 Dose: Not Given Valproate Sodium 500 mg/ (Sodium Chloride) 105 mls @ 100 mls/hr IVPB Q12H [facility] Last Admin: 10/19/17 02:18 Dose: 100 mls/hr Insulin Detemir (Levemir) 15 unit SC Q12 [facility] Last Admin: 10/18/17 22:16 Dose: 15 units Insulin Human Regular (Novolin R) 0 unit SC ACHS [facility] PRN Reason: Protocol Last Admin: 10/18/17 22:27 Dose: Not Given Latanoprost (Xalatan Opht) 0 ml OU HS [facility] Last Admin: 10/18/17 22:15 Dose: 2.5 ml Metoprolol Tartrate (Lopressor) 12.5 mg PO BID [facility] Last Admin: 10/19/17 05:13 Dose: 12.5 mg Pantoprazole Sodium (Protonix Ec Tab) 40 mg PO DAILY [facility] Last Admin: 10/18/17 10:39 Dose: Not Given Rosuvastatin Calcium (Crestor) 5 mg PO HS [facility] Last Admin: 10/18/17 22:27 Dose: Not Given - Labs Labs: 10/19/17 06:24 10/18/17 08:16 PT 10.9 SECONDS (9.7-12.2) 10/09/17 11:37 INR 1.0 10/09/17 11:37 APTT 26 SECONDS (21-34) 10/03/17 10:30 - Constitutional Appears: No Acute Distress - Eye Exam Pupil Exam: PERRL - Neurological Exam Neurological Exam: Awake Neuro motor strength exam: Left Upper Extremity: 2/1, Right Upper Extremity: 2/1 , Left Lower Extremity: 0, Right Lower Extremity: 0 Additional comments: lethargic, withdraws from pain stimuli Assessment and Plan (1) Mental status change Assessment & Plan: Case discussed with Dr. Nixon, continue all current medical regimen, recommend normotension, normothermic, glycemic control, and keep head of bed elevated at least 40 degrees. Status: Acute
[2017-10-19] MEDS ORDERED: Propofol 10 mg/ml Inj (20 ML) ONE (07:27)
[2017-10-19 07:33] LABS: ALB/GLOB RATIO 1.1 (1.0-2.1); ALBUMIN 3.2 g/dL (3.5-5.0); ALT/SGPT 33 U/L (9-52); AST/SGOT 25 U/L (14-36); BLOOD UREA NITROGEN 17 mg/dL (7-17); CALCIUM 8.8 mg/dl (8.6-10.4); GFR AFRICAN-AMERICAN > 60; GFR NON-AFRICAN AMERICAN > 60
[2017-10-19] MEDS ORDERED: Rocuronium 10 mg/ml (5 ml) ONE (07:33)
[2017-10-19] MEDS ORDERED: VANCOMYCIN IN ONE ×2 (07:40→08:00)
[2017-10-19] MEDS ORDERED: SODIUM CHLORIDE 0.9% IN ONE ×2 (07:40→08:00)
[2017-10-19] MEDS: (Novolin R) Insulin Human Regular 100 units/ml vial SC SCH ×4 (07:45→22:03)
[2017-10-19] MEDS ORDERED: Gentamicin 80 mg/2mL Inj. IM ONE (07:49)
[2017-10-19] MEDS ORDERED: Bacitracin 50,000 UNIT in Sodium Chloride 0.9% Irrig 1,000 ML IR SCH (07:51)
[2017-10-19] MEDS ORDERED: Lidocaine/Epinephrine 1% 1:100000 10 ML IJ ONE (07:51)
[2017-10-19] MEDS ORDERED: Bacitracin 500 Units/gm Oint Foilpak UD ONE (07:51)
[2017-10-19] MEDS ORDERED: cefTRIAXone IV 1 gm in Dextros 50 ML IVPB ONE ×2 (07:51→08:17)
[2017-10-19] MEDS ORDERED: Absorbable Gelatin Sponge Size 100 ONE (07:52)
[2017-10-19] MEDS ORDERED: Thrombin Topical 5,000 Int Units Spray Kit ONE (07:52)
[2017-10-19] MEDS ORDERED: Gentamicin Sulfate 10 MG in Sodium Chloride 0.9% 1 ML IN ONE (08:00)
[2017-10-19] MEDS ORDERED: Neostigmine Methylsulfate 3mg/3ml Syringe IV ONE (09:19)
--- NOTE | 2017-10-19 09:19 | CP.PCM.PN ---
<Nikko Hart - Last Filed: 10/19/17 18:25> Subjective - Date & Time of Evaluation Date of Evaluation: 10/19/17 Time of Evaluation: 13:57 - Subjective Subjective: PGY1 Medicine Note for Dr. Beaulieu Patient was seen and examined this afternoon. Patient is currently post-op from a [employer]CIAL [employer]ENT shunt revision today. Patient is currently sleeping and very lethargic from the post anesthesia. Patient is resting comfortably in bed. ROS unattainable. Objective - Vital Signs/Intake and Output Vital Signs (last 24 hours): Temp Pulse Resp BP Pulse Ox 98.5 F 71 20 128/86 96 10/19/17 06:30 10/19/17 06:30 10/19/17 06:30 10/19/17 06:30 10/19/17 06:30 Intake and Output: 10/19/17 10/19/17 06:59 18:59 Output Total 300 Balance -300 - Medications Medications: Current Medications Amlodipine Besylate (Norvasc) 5 mg PO DAILY [facility] Last Admin: 10/18/17 10:39 Dose: Not Given Bupropion HCl (Wellbutrin Xl) 150 mg PO DAILY [facility] Last Admin: 10/18/17 10:39 Dose: Not Given Dextrose (Dextrose 50% Inj) 0 ml IV STAT PRN; Protocol PRN Reason: Hypoglycemia Protocol Dextrose (Glutose 15) 0 gm PO ONCE PRN; Protocol PRN Reason: Hypoglycemia Protocol Glucagon (Glucagen Diagnostic Kit) 0 mg IM STAT PRN; Protocol PRN Reason: Hypoglycemia Protocol Heparin Sodium (Porcine) (Heparin) 5,000 units SC Q8 [facility] Last Admin: 10/19/17 05:52 Dose: Not Given Valproate Sodium 500 mg/ (Sodium Chloride) 105 mls @ 100 mls/hr IVPB Q12H [facility] Last Admin: 10/19/17 02:18 Dose: 100 mls/hr Insulin Detemir (Levemir) 15 unit SC Q12 [facility] Last Admin: 10/18/17 22:16 Dose: 15 units Insulin Human Regular (Novolin R) 0 unit SC ACHS [facility] PRN Reason: Protocol Last Admin: 10/19/17 07:45 Dose: Not Given Latanoprost (Xalatan Opht) 0 ml OU HS [facility] Last Admin: 10/18/17 22:15 Dose: 2.5 ml Metoprolol Tartrate (Lopressor) 12.5 mg PO BID [facility] Last Admin: 10/19/17 05:13 Dose: 12.5 mg Pantoprazole Sodium (Protonix Ec Tab) 40 mg PO DAILY [facility] Last Admin: 10/18/17 10:39 Dose: Not Given Rosuvastatin Calcium (Crestor) 5 mg PO HS [facility] Last Admin: 10/18/17 22:27 Dose: Not Given - Labs Labs: 10/19/17 06:24 10/19/17 06:24 PT 10.9 SECONDS (9.7-12.2) 10/09/17 11:37 INR 1.0 10/09/17 11:37 APTT 26 SECONDS (21-34) 10/03/17 10:30 - Constitutional Appears: No Acute Distress - Head Exam Head Exam: ATRAUMATIC, NORMOCEPHALIC Additional comments: Dressing in place on right side of head - Eye Exam Eye Exam: Normal appearance - ENT Exam ENT Exam: Mucous Membranes Moist - Respiratory Exam Respiratory Exam: Clear to Ausculation Bilateral, NORMAL BREATHING PATTERN. absent: Rales, Rhonchi, Wheezes, Respiratory Distress - Cardiovascular Exam Cardiovascular Exam: REGULAR RHYTHM, +S1, +S2 - GI/Abdominal Exam GI & Abdominal Exam: Soft, Normal Bowel Sounds. absent: Distended, Firm, Guarding, Rigid - Extremities Exam Extremities Exam: absent: Calf Tenderness, Pedal Edema - Neurological Exam Additional comments: Patient is moving all four extremities but is sleep. May be secondary to anesthesia or still secondary to NPH. - Skin Skin Exam: Dry, Warm Assessment and Plan - Assessment and Plan (Free Text) Plan: [employer] shunt malfunction and change in mental status s/p [employer]ENT shunt revision today. patient is responding to pain but still not able to be awoken. Head CT 10/18/17: Worsening hydrocephalus despite right transfrontal ventriculostomy catheter. 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 [employer] Shunt repair -Neurosurgery Dr Hancock/Ella is consulted * s/p [employer] shunt revision - 3rd this hospital stay (10/10/2017, 10/11/2017 and 2017) -Neurology consulted, Dr. Nixon -[employer] shunt changed on -Neurology, Dr. Mota is consulted -CSF culture: no growth to date 10/10/17 -repeat CSF culture: pending -all cultures are negative and patient is improving and off antibiotics -continue valproate 500mg IVPB q12h for seizure prophylaxis * valproate acid level 42.8 on 10/17 Altered Mental Status -likely secondary to NPH and cerebral edema with enlarged ventricles. Improved -pass swallow eval. Currently on puree -Neuro checks -PT/OT Diabetes Accuchecks ACHS Medium Dose insulin sliding scale Levemir dose of 15 units BID - Held due to patient's decrease in mental status and is unable to eat any food. Will hold home metformin for now Hypoglycemia protocol HLD Crestor 5 mg po hs Asthma Will continue to monitor saturation Hypertension Amlodipine 5mg PO daily Metoprolol Tart 12.5mg PO BID Prophylactic measure Heparin 5,000units SC q8h [facility] Protonix 40mg PO daily Case discussed with Dr. Brittnee El Hailey PGY1 <Dvaid Beaulieu H - Last Filed: 10/19/17 18:52> Objective - Vital Signs/Intake and Output Vital Signs (last 24 hours): Temp Pulse Resp BP Pulse Ox 98.1 F 89 20 154/89 H 97 10/19/17 15:00 10/19/17 15:00 10/19/17 15:00 10/19/17 15:00 10/19/17 15:00 Intake and Output: 10/19/17 10/19/17 06:59 18:59 Intake Total 825 Output Total 300 Balance -300 825 - Medications Medications: Current Medications Amlodipine Besylate (Norvasc) 5 mg PO DAILY [facility] Last Admin: 10/19/17 10:30 Dose: Not Given Bupropion HCl (Wellbutrin Xl) 150 mg PO DAILY [facility] Last Admin: 10/19/17 10:30 Dose: Not Given Dextrose (Dextrose 50% Inj) 0 ml IV STAT PRN; Protocol PRN Reason: Hypoglycemia Protocol Dextrose (Glutose 15) 0 gm PO ONCE PRN; Protocol PRN Reason: Hypoglycemia Protocol Glucagon (Glucagen Diagnostic Kit) 0 mg IM STAT PRN; Protocol PRN Reason: Hypoglycemia Protocol Valproate Sodium 500 mg/ (Sodium Chloride) 105 mls @ 100 mls/hr IVPB Q12H [facility] Last Admin: 10/19/17 14:21 Dose: 100 mls/hr Insulin Detemir (Levemir) 15 unit SC Q12 [facility] Last Admin: 10/19/17 10:30 Dose: Not Given Insulin Human Regular (Novolin R) 0 unit SC ACHS [facility] PRN Reason: Protocol Last Admin: 10/19/17 17:10 Dose: 2 units Latanoprost (Xalatan Opht) 0 ml OU HS [facility] Last Admin: 10/18/17 22:15 Dose: 2.5 ml Metoprolol Tartrate (Lopressor) 12.5 mg PO BID [facility] Last Admin: 10/19/17 18:26 Dose: 12.5 mg Pantoprazole Sodium (Protonix Ec Tab) 40 mg PO DAILY [facility] Last Admin: 10/19/17 10:30 Dose: Not Given Rosuvastatin Calcium (Crestor) 5 mg PO HS [facility] Last Admin: 10/18/17 22:27 Dose: Not Given - Labs Labs: 10/19/17 06:24 10/19/17 06:24 PT 10.9 SECONDS (9.7-12.2) 10/09/17 11:37 INR 1.0 10/09/17 11:37 APTT 26 SECONDS (21-34) 10/03/17 10:30 Attending/Attestation - Attestation I have personally seen and examined this patient.: Yes I have fully participated in the care of the patient.: Yes I have reviewed all pertinent clinical information, including history, physical exam and plan: Yes Notes (Text): 10/19/17 18:50 Medical attending: Patient underwent third time to the OR. Hopefully we will see some improvment following this. I reviewed the above note by the resident and agree with the above. David Beaulieu
[2017-10-19] MEDS ORDERED: HYDROmorphone 0.5 mg/0.5 ml ISec IVP PRN (09:47)
[2017-10-19] MEDS: Pantoprazole 40 mg EC Tab PO SCH (10:30)
[2017-10-19] MEDS: buPROPion 150 mg/24 Hours XL Tab PO SCH (10:30)
[2017-10-19] MEDS: Insulin Detemir 100 units/ml Vial (Levemir) SC SCH ×2 (10:30→22:09)
--- NOTE | 2017-10-19 12:47 | RAD ---
HISTORY: intubated COMPARISON: 10/14/2007 FINDINGS: LUNGS: No interval consolidation. Lung volumes are shallow. Pulmonary vasculature - plethoric appearing - compatible with vessel crowding PLEURA: No significant pleural effusion identified, no pneumothorax apparent. CARDIOVASCULAR: Top-normal OSSEOUS STRUCTURES: No significant abnormalities. VISUALIZED UPPER ABDOMEN: Normal. OTHER FINDINGS: Endotracheal tube tip approximately 2 cm above the maximus. Two right side ventriculoperitoneal tubings partially visualized -1 likely abandoned IMPRESSION: No interval pathology noted. The pulmonary vasculature actually appears less pronounced than it did before
[2017-10-19] MEDS: Latanoprost 2.5 ml Opht Soln OU SCH (22:05)
[2017-10-20] MEDS: Valproate 500 MG in Sodium Chloride 0.9% 100 ML IVPB SCH ×2 (02:05→14:22)
--- NOTE | 2017-10-20 03:04 | CP.PCM.PCO ---
Addendum entered and electronically signed by Jaleesa Richard DO 10/20/17 04:41: Spoke to Radiologist via [facility], worsening ventricles Spoke to Dr. Hancock, patient will have externalization of SALES SUPPORT TECHNICIAN shunt at ICU ICU attending accepted transfer. patient transferred 04:40 Neurochecks Q1H Ventriculostomy kit and shunt externalization prep ordered for bedside per Dr. Hancock, will follow. Original Note: <Jaleesa Richard - Last Filed: 10/20/17 02:59> Additional Comments - Additional Comments Additional Comments: Patient seen and examined at bedside at 23:00, Patient is sleeping, but cannot be aroused with verbal or physical stimulation. Lifting upper extremities, patient's arms would snap back down. Patient seen and examined at bedside at 02:20, patient is sleeping, pink hue to face compared to baseline pallor, diaphoretic, cannot be aroused with verbal or physical stimulation. Both upper extremities flexed towards body center. Left hip flexing. Upper extremities could not be moved from their position (strong resistance from patient) CT head without contrast ordered. Dr. Hancock notified Patient had CT head without contrast, waiting for final read. Patient en route back to [address] (patient's room), patient was no longer diaphoretic, face is still pink, compared to baseline pallor. Upper extremities were able to be moved in physiologic range of motion without resistance. consider possibility of seizure. <Yakov Clarke P - Last Filed: 10/21/17 07:31> Attending/Attestation - Attestation I have personally seen and examined this patient.: Yes I have fully participated in the care of the patient.: Yes I have reviewed all pertinent clinical information: Yes
[2017-10-20 06:42] LABS: BASO # 0.1 K/uL (0.0-0.2); EOS # 0.1 K/uL (0.0-0.7); EOS % 1.6 % (0.0-4.0); HEMOGLOBIN 13.1 g/dL (11.0-16.0); LYMPH # 2.3 K/uL (1.0-4.3); LYMPH % 31.4 % (20.0-40.0); MEAN CELL VOLUME 86.3 fL (81.0-99.0); MEAN CORPUSCULAR HEMOGLOBIN 29.3 pg (27.0-31.0); MEAN CORPUSCULAR HGB CONC 33.9 g/dL (33.0-37.0); MONO # 0.6 K/uL (0.0-0.8); MONO % 8.2 % (0.0-10.0); NEUT # 4.3 K/uL (1.8-7.0); NEUT % 57.8 % (50.0-75.0); RBC 4.46 Mil/uL (3.80-5.20); WHITE BLOOD COUNT 7.4 K/uL (4.8-10.8)
--- NOTE | 2017-10-20 06:45 | CP.PCM.PN ---
Subjective - Date & Time of Evaluation Date of Evaluation: 10/20/17 Time of Evaluation: 06:37 - Subjective Subjective: Ms. Diaz was seen and examined at the bedside in ICU. She is comatose, pupils non-reactive with 4 mm size bilaterally. She response to pain with posturing, GCS-4. She is s/p revison of REPRODUCTION TECHNICIAN shunt yesterday with right parietal dressing intact. She had a change of mental status last night, which CT scan of the head without contrast was done, pending result. Her latest valproic level done 2017 was 51.5. Objective - Vital Signs/Intake and Output Vital Signs (last 24 hours): Temp Pulse Resp BP Pulse Ox 99.8 F H 102 H 17 135/89 96 10/20/17 05:53 10/20/17 05:38 10/20/17 05:38 10/20/17 05:38 10/20/17 05:38 Intake and Output: 10/19/17 10/20/17 18:59 06:59 Intake Total 825 150 Output Total 200 Balance 825 -50 - Medications Medications: Current Medications Amlodipine Besylate (Norvasc) 5 mg PO DAILY [facility] Last Admin: 10/19/17 10:30 Dose: Not Given Bupropion HCl (Wellbutrin Xl) 150 mg PO DAILY [facility] Last Admin: 10/19/17 10:30 Dose: Not Given Dextrose (Dextrose 50% Inj) 0 ml IV STAT PRN; Protocol PRN Reason: Hypoglycemia Protocol Dextrose (Glutose 15) 0 gm PO ONCE PRN; Protocol PRN Reason: Hypoglycemia Protocol Glucagon (Glucagen Diagnostic Kit) 0 mg IM STAT PRN; Protocol PRN Reason: Hypoglycemia Protocol Valproate Sodium 500 mg/ (Sodium Chloride) 105 mls @ 100 mls/hr IVPB Q12H [facility] Last Admin: 10/20/17 02:05 Dose: 100 mls/hr Insulin Detemir (Levemir) 15 unit SC Q12 [facility] Last Admin: 10/19/17 22:09 Dose: Not Given Insulin Human Regular (Novolin R) 0 unit SC ACHS [facility] PRN Reason: Protocol Last Admin: 10/19/17 22:03 Dose: Not Given Latanoprost (Xalatan Opht) 0 ml OU HS [facility] Last Admin: 10/19/17 22:05 Dose: 2.5 ml Metoprolol Tartrate (Lopressor) 12.5 mg PO BID [facility] Last Admin: 10/19/17 18:26 Dose: 12.5 mg Pantoprazole Sodium (Protonix Ec Tab) 40 mg PO DAILY [facility] Last Admin: 10/19/17 10:30 Dose: Not Given Rosuvastatin Calcium (Crestor) 5 mg PO HS [facility] Last Admin: 10/19/17 22:01 Dose: 5 mg - Labs Labs: 10/19/17 06:24 10/19/17 06:24 PT 10.9 SECONDS (9.7-12.2) 10/09/17 11:37 INR 1.0 10/09/17 11:37 APTT 26 SECONDS (21-34) 10/03/17 10:30 - Constitutional Appears: No Acute Distress - Eye Exam Pupil Exam: Fixed Additional comments: 4 mm non-reactive - Neurological Exam Neuro motor strength exam: Left Upper Extremity: 0, Right Upper Extremity: 0, Left Lower Extremity: 0, Right Lower Extremity: 0 Additional comments: gcs-4 Assessment and Plan (1) Mental status change Assessment & Plan: Case discussed with Dr. Nixon, continue all current medical regimen, Recommend neurosurgery input, follow neurosurgery orders, normotension, normothermic, glycemic control, and keep head of bed elevated at least 40 degrees. Status: Acute
[2017-10-20 07:00] LABS: ALB/GLOB RATIO 1.3 (1.0-2.1); ALBUMIN 3.6 g/dL (3.5-5.0); ALT/SGPT 33 U/L (9-52); AST/SGOT 20 U/L (14-36); BLOOD UREA NITROGEN 15 mg/dL (7-17); CALCIUM 8.6 mg/dl (8.6-10.4); GFR AFRICAN-AMERICAN > 60; GFR NON-AFRICAN AMERICAN > 60
[2017-10-20] MEDS: (Novolin R) Insulin Human Regular 100 units/ml vial SC SCH ×3 (07:30→17:08)
--- NOTE | 2017-10-20 07:41 | CP.CCUPN ---
CCU Subjective - Physician Review Events Since Last Encounter (Free Text): 10/20/17 07:41 The Patient was seen and examined at the bedside, Medical records reviewed, and management issues were discussed and formulated with the house staff. Events reviewed 66 year old female with PMHx of hydrocephalus s/p ACCOUNTS SPECIALIST shunt, who was initially brought to ER by ambulance on 10/03 for evaluation of confusion. She was evaluated by neurosurgery and underwent shunt revision. Pt did well, extubated and transferred out of ICU. ICU revaluation for worsening mental status, Head CT showed ventricles have increased in size since the last imaging. Patient lethergic, Only responding to pain. CCU Objective - Vital Signs / Intake & Output Vital Signs (Last 4 hours): Vital Signs Temp Pulse Resp BP Pulse Ox 10/20/17 06:26 89 15 115/43 L 98 10/20/17 06:00 84 14 97 10/20/17 05:53 99.8 F H 10/20/17 05:38 102 H 17 135/89 96 10/20/17 05:25 94 H 17 10/20/17 04:00 98.8 F 79 20 161/77 H 96 10/20/17 03:58 70 Intake and Output (Last 8hrs): Intake & Output 10/19/17 10/20/17 10/20/17 22:59 06:59 14:59 Intake Total 150 Output Total 350 Balance -200 Weight 206 lb 8 oz Intake: Oral 150 Output: Urine 350 Urine, Voided 350 - Physical Exam Head: Positive for: Normocephalic Pupils: Positive for: PERRL Extroacular Muscles: Positive for: EOMI Mouth: Positive for: Dry, Other (NGT in place ) Respiratory/Chest: Positive for: Clear to Auscultation. Negative for: Respiratory Distress Cardiovascular: Positive for: Regular Rate and Rhythm Abdomen: Positive for: Normal Bowel Sounds. Negative for: Tenderness, Distention Upper Extremity: Positive for: Normal Inspection, NORMAL PULSES, Neurovascularly Intact, Capillary Refill < 2s Lower Extremity: Positive for: Normal Inspection, NORMAL PULSES, Neurovascularly Intact, Capillary Refill < 2 s Neurological: Positive for: Other (Unable to full assese, Pt Lethargic, Only responding to pain) Skin: Positive for: Warm, Dry, Normal Color Psychiatric: Positive for: Other (Lethargic). Negative for: Alert, Oriented x 3 - Medications Active Medications: Active Medications Generic Name Dose Route Start Last Admin Trade Name Freq PRN Reason Stop Dose Admin Amlodipine Besylate 5 mg 10/14/17 10:45 10/19/17 10:30 Norvasc PO Not Given DAILY [facility] Bupropion HCl 150 mg 10/04/17 10:00 10/19/17 10:30 Wellbutrin Xl PO Not Given DAILY [facility] Dextrose 0 ml 10/03/17 13:28 Dextrose 50% Inj IV STAT PRN Hypoglycemia Protocol Protocol Dextrose 0 gm 10/03/17 13:28 Glutose 15 PO ONCE PRN Hypoglycemia Protocol Protocol Glucagon 0 mg 10/03/17 13:28 Glucagen Diagnostic Kit IM STAT PRN Hypoglycemia Protocol Protocol Valproate Sodium 500 mg/ 105 mls @ 100 mls/hr 10/11/17 14:03 10/20/17 02:05 Sodium Chloride IVPB 100 mls/hr Q12H [facility] Administration Insulin Detemir 15 unit 10/15/17 22:00 10/19/17 22:09 Levemir SC Not Given Q12 [facility] Insulin Human Regular 0 unit 10/14/17 11:30 10/19/17 22:03 Novolin R SC Not Given ACHS [facility] Protocol Latanoprost 0 ml 10/03/17 22:00 10/19/17 22:05 Xalatan Opht OU 2.5 ml HS [facility] Administration Metoprolol Tartrate 12.5 mg 10/14/17 10:45 10/19/17 18:26 Lopressor PO 12.5 mg BID [facility] Administration Pantoprazole Sodium 40 mg 10/17/17 10:00 10/19/17 10:30 Protonix Ec Tab PO Not Given DAILY [facility] Rosuvastatin Calcium 5 mg 10/15/17 22:00 10/19/17 22:01 Crestor PO 5 mg HS [facility] Administration - Patient Studies Lab Studies: Microbiology Studies 10/19/17 12:16 Gram Stain - Final Cerebral Spinal Fluid Lab Studies 10/20/17 10/20/17 10/20/17 Range/Units 06:39 06:39 02:48 WBC 7.4 (4.8-10.8) K/uL RBC 4.46 (3.80-5.20) Mil/uL Hgb 13.1 (11.0-16.0) g/dL Hct 38.5 (34.0-47.0) % MCV 86.3 (81.0-99.0) fL MCH 29.3 (27.0-31.0) pg MCHC 33.9 (33.0-37.0) g/dL RDW 15.0 H (11.5-14.5) % Plt Count 263 (130-400) K/uL MPV 8.0 (7.2-11.7) fL Neut % (Auto) 57.8 (50.0-75.0) % Lymph % (Auto) 31.4 (20.0-40.0) % [place] % (Auto) 8.2 (0.0-10.0) % Eos % (Auto) 1.6 (0.0-4.0) % Baso % (Auto) 1.0 (0.0-2.0) % Neut # (Auto) 4.3 (1.8-7.0) K/uL Lymph # (Auto) 2.3 (1.0-4.3) K/uL [place] # (Auto) 0.6 (0.0-0.8) K/uL Eos # (Auto) 0.1 (0.0-0.7) K/uL Baso # (Auto) 0.1 (0.0-0.2) K/uL Sodium 143 (132-148) mmol/L Potassium 4.0 (3.6-5.2) mmol/L Chloride 102 (98-107) mmol/L Carbon Dioxide 27 (22-30) mmol/L Anion Gap 17 (10-20) BUN 15 (7-17) mg/dL Creatinine 0.8 (0.7-1.2) mg/dL Est GFR ( Amer) > 60 Est GFR (Non-Af Amer) > 60 POC Glucose (mg/dL) 203 H (65-110) mg/dL Random Glucose 203 H (65-105) mg/dL Calcium 8.6 (8.6-10.4) mg/dl Phosphorus 3.1 (2.5-4.5) mg/dL Magnesium 1.7 (1.6-2.3) mg/dL Total Bilirubin 0.7 (0.2-1.3) mg/dL AST 20 (14-36) U/L ALT 33 (9-52) U/L Alkaline Phosphatase 69 (38-126) U/L Total Protein 6.4 (6.3-8.3) g/dL Albumin 3.6 (3.5-5.0) g/dL Globulin 2.8 (2.2-3.9) gm/dL Albumin/Globulin Ratio 1.3 (1.0-2.1) Valproic Acid (50.0-100.0) ug/mL 10/19/17 10/19/17 10/19/17 Range/Units 21:18 17:17 12:32 WBC (4.8-10.8) K/uL RBC (3.80-5.20) Mil/uL Hgb (11.0-16.0) g/dL Hct (34.0-47.0) % MCV (81.0-99.0) fL MCH (27.0-31.0) pg MCHC (33.0-37.0) g/dL RDW (11.5-14.5) % Plt Count (130-400) K/uL MPV (7.2-11.7) fL Neut % (Auto) (50.0-75.0) % Lymph % (Auto) (20.0-40.0) % [place] % (Auto) (0.0-10.0) % Eos % (Auto) (0.0-4.0) % Baso % (Auto) (0.0-2.0) % Neut # (Auto) (1.8-7.0) K/uL Lymph # (Auto) (1.0-4.3) K/uL [place] # (Auto) (0.0-0.8) K/uL Eos # (Auto) (0.0-0.7) K/uL Baso # (Auto) (0.0-0.2) K/uL Sodium (132-148) mmol/L Potassium (3.6-5.2) mmol/L Chloride (98-107) mmol/L Carbon Dioxide (22-30) mmol/L Anion Gap (10-20) BUN (7-17) mg/dL Creatinine (0.7-1.2) mg/dL Est GFR ( Amer) Est GFR (Non-Af Amer) POC Glucose (mg/dL) 195 H 232 H 251 H (65-110) mg/dL Random Glucose (65-105) mg/dL Calcium (8.6-10.4) mg/dl Phosphorus (2.5-4.5) mg/dL Magnesium (1.6-2.3) mg/dL Total Bilirubin (0.2-1.3) mg/dL AST (14-36) U/L ALT (9-52) U/L Alkaline Phosphatase (38-126) U/L Total Protein (6.3-8.3) g/dL Albumin (3.5-5.0) g/dL Globulin (2.2-3.9) gm/dL Albumin/Globulin Ratio (1.0-2.1) Valproic Acid (50.0-100.0) ug/mL 10/19/17 10/19/17 10/19/17 Range/Units 11:13 06:24 06:24 WBC (4.8-10.8) K/uL RBC (3.80-5.20) Mil/uL Hgb (11.0-16.0) g/dL Hct (34.0-47.0) % MCV (81.0-99.0) fL MCH (27.0-31.0) pg MCHC (33.0-37.0) g/dL RDW (11.5-14.5) % Plt Count (130-400) K/uL MPV (7.2-11.7) fL Neut % (Auto) (50.0-75.0) % Lymph % (Auto) (20.0-40.0) % [place] % (Auto) (0.0-10.0) % Eos % (Auto) (0.0-4.0) % Baso % (Auto) (0.0-2.0) % Neut # (Auto) (1.8-7.0) K/uL Lymph # (Auto) (1.0-4.3) K/uL [place] # (Auto) (0.0-0.8) K/uL Eos # (Auto) (0.0-0.7) K/uL Baso # (Auto) (0.0-0.2) K/uL Sodium 144 (132-148) mmol/L Potassium 3.8 (3.6-5.2) mmol/L Chloride 104 (98-107) mmol/L Carbon Dioxide 29 (22-30) mmol/L Anion Gap 14 (10-20) BUN 17 (7-17) mg/dL Creatinine 0.8 (0.7-1.2) mg/dL Est GFR ( Amer) > 60 Est GFR (Non-Af Amer) > 60 POC Glucose (mg/dL) 242 H (65-110) mg/dL Random Glucose 186 H (65-105) mg/dL Calcium 8.8 (8.6-10.4) mg/dl Phosphorus 3.6 (2.5-4.5) mg/dL Magnesium 1.9 (1.6-2.3) mg/dL Total Bilirubin 0.6 (0.2-1.3) mg/dL AST 25 (14-36) U/L ALT 33 (9-52) U/L Alkaline Phosphatase 61 (38-126) U/L Total Protein 6.1 L (6.3-8.3) g/dL Albumin 3.2 L (3.5-5.0) g/dL Globulin 2.9 (2.2-3.9) gm/dL Albumin/Globulin Ratio 1.1 (1.0-2.1) Valproic Acid 51.5 (50.0-100.0) ug/mL 10/19/17 Range/Units 06:22 WBC (4.8-10.8) K/uL RBC (3.80-5.20) Mil/uL Hgb (11.0-16.0) g/dL Hct (34.0-47.0) % MCV (81.0-99.0) fL MCH (27.0-31.0) pg MCHC (33.0-37.0) g/dL RDW (11.5-14.5) % Plt Count (130-400) K/uL MPV (7.2-11.7) fL Neut % (Auto) (50.0-75.0) % Lymph % (Auto) (20.0-40.0) % [place] % (Auto) (0.0-10.0) % Eos % (Auto) (0.0-4.0) % Baso % (Auto) (0.0-2.0) % Neut # (Auto) (1.8-7.0) K/uL Lymph # (Auto) (1.0-4.3) K/uL [place] # (Auto) (0.0-0.8) K/uL Eos # (Auto) (0.0-0.7) K/uL Baso # (Auto) (0.0-0.2) K/uL Sodium (132-148) mmol/L Potassium (3.6-5.2) mmol/L Chloride (98-107) mmol/L Carbon Dioxide (22-30) mmol/L Anion Gap (10-20) BUN (7-17) mg/dL Creatinine (0.7-1.2) mg/dL Est GFR ( Amer) Est GFR (Non-Af Amer) POC Glucose (mg/dL) 190 H (65-110) mg/dL Random Glucose (65-105) mg/dL Calcium (8.6-10.4) mg/dl Phosphorus (2.5-4.5) mg/dL Magnesium (1.6-2.3) mg/dL Total Bilirubin (0.2-1.3) mg/dL AST (14-36) U/L ALT (9-52) U/L Alkaline Phosphatase (38-126) U/L Total Protein (6.3-8.3) g/dL Albumin (3.5-5.0) g/dL Globulin (2.2-3.9) gm/dL Albumin/Globulin Ratio (1.0-2.1) Valproic Acid (50.0-100.0) ug/mL Laboratory Results - last 24 hr 10/19/17 10/19/17 10/19/17 06:22 06:24 06:24 WBC RBC Hgb Hct MCV MCH MCHC RDW Plt Count MPV Neut % (Auto) Lymph % (Auto) [place] % (Auto) Eos % (Auto) Baso % (Auto) Neut # (Auto) Lymph # (Auto) [place] # (Auto) Eos # (Auto) Baso # (Auto) Sodium 144 Potassium 3.8 Chloride 104 Carbon Dioxide 29 Anion Gap 14 BUN 17 Creatinine 0.8 Est GFR ( Amer) > 60 Est GFR (Non-Af Amer) > 60 POC Glucose (mg/dL) 190 H Random Glucose 186 H Calcium 8.8 Phosphorus 3.6 Magnesium 1.9 Total Bilirubin 0.6 AST 25 ALT 33 Alkaline Phosphatase 61 Total Protein 6.1 L Albumin 3.2 L Globulin 2.9 Albumin/Globulin Ratio 1.1 Valproic Acid 51.5 10/19/17 10/19/17 10/19/17 11:13 12:32 17:17 WBC RBC Hgb Hct MCV MCH MCHC RDW Plt Count MPV Neut % (Auto) Lymph % (Auto) [place] % (Auto) Eos % (Auto) Baso % (Auto) Neut # (Auto) Lymph # (Auto) [place] # (Auto) Eos # (Auto) Baso # (Auto) Sodium Potassium Chloride Carbon Dioxide Anion Gap BUN Creatinine Est GFR ( Amer) Est GFR (Non-Af Amer) POC Glucose (mg/dL) 242 H 251 H 232 H Random Glucose Calcium Phosphorus Magnesium Total Bilirubin AST ALT Alkaline Phosphatase Total Protein Albumin Globulin Albumin/Globulin Ratio Valproic Acid 10/19/17 10/20/17 10/20/17 21:18 02:48 06:39 WBC 7.4 RBC 4.46 Hgb 13.1 Hct 38.5 MCV 86.3 MCH 29.3 MCHC 33.9 RDW 15.0 H Plt Count 263 MPV 8.0 Neut % (Auto) 57.8 Lymph % (Auto) 31.4 [place] % (Auto) 8.2 Eos % (Auto) 1.6 Baso % (Auto) 1.0 Neut # (Auto) 4.3 Lymph # (Auto) 2.3 [place] # (Auto) 0.6 Eos # (Auto) 0.1 Baso # (Auto) 0.1 Sodium Potassium Chloride Carbon Dioxide Anion Gap BUN Creatinine Est GFR ( Amer) Est GFR (Non-Af Amer) POC Glucose (mg/dL) 195 H 203 H Random Glucose Calcium Phosphorus Magnesium Total Bilirubin AST ALT Alkaline Phosphatase Total Protein Albumin Globulin Albumin/Globulin Ratio Valproic Acid 10/20/17 06:39 WBC RBC Hgb Hct MCV MCH MCHC RDW Plt Count MPV Neut % (Auto) Lymph % (Auto) [place] % (Auto) Eos % (Auto) Baso % (Auto) Neut # (Auto) Lymph # (Auto) [place] # (Auto) Eos # (Auto) Baso # (Auto) Sodium 143 Potassium 4.0 Chloride 102 Carbon Dioxide 27 Anion Gap 17 BUN 15 Creatinine 0.8 Est GFR ( Amer) > 60 Est GFR (Non-Af Amer) > 60 POC Glucose (mg/dL) Random Glucose 203 H Calcium 8.6 Phosphorus 3.1 Magnesium 1.7 Total Bilirubin 0.7 AST 20 ALT 33 Alkaline Phosphatase 69 Total Protein 6.4 Albumin 3.6 Globulin 2.8 Albumin/Globulin Ratio 1.3 Valproic Acid Fingerstick Blood Sugar Results: 220 Review of Systems - Review of Systems Systems not reviewed;Unavailable: Altered Mental Status Critical Care Progress Note - Nutrition Nutrition: Nutrition Category Date Time Status Pureed [Dysphagia/Modified Consistency Diet] [DIET] Diets 10/19/17 Dinner Active Assessment/Plan (1) Hydrocephalus Current Visit: Yes Status: Acute (2) Mental status change Current Visit: Yes Status: Acute (3) JOHN (acute kidney injury) Current Visit: No Status: Acute (4) Obstructed ACCOUNTS SPECIALIST shunt Assessment and plan: - Transfer patient to ICU, Frequent Neuro check (q1hr) - Neurosurgery made aware, Pt scheduled for urgent ACCOUNTS SPECIALIST shunt revision this morning - Monitor Respiratory status closely, Pt able to protect airway at this time - NPO - Speech and swallow evaluation - Check ammonia level - Continue IV valproic acid - Continue mannitol, 25 gm now - Continue Crestor - IV vanco - BG control - Neurology follow up - Prognosis poor - Family at bedside aware of poor prognosis Current Visit: No Status: Acute
--- NOTE | 2017-10-20 07:44 | OP ---
PROCEDURE DATE: 10/19/2017 PREOPERATIVE DIAGNOSIS: Ventriculoperitoneal shunt malfunction. POSTOPERATIVE DIAGNOSES: Ventriculoperitoneal shunt malfunction, peritoneal catheter obstruction. PROCEDURE: Conversion of ventriculoperitoneal shunt to ventriculoatrial shunt. SURGEON: Fer Hancock MD CO-SURGEON: Padmaja Monroe MD TYPE OF ANESTHESIA: General endotracheal. ESTIMATED BLOOD LOSS: 10 mL. COMPLICATIONS: None. JUSTIFICATION: The patient is 7 days status post a revision of a ventriculoperitoneal shunt due to her peritoneal catheter blocking. She did well for several days postop including having a very good looking scan 2 days prior to this procedure and then deteriorated with a new scan showing enlargement of the ventricle. It was recommended to the family for her to undergo revision. They were with the procedure as well as the risks, complications, benefits, and agreed to proceed. DESCRIPTION OF PROCEDURE: The patient was taken to the operating room, intubated, anesthetized and placed on the OR table in a supine position. Head placed on a donut, turned maximally to the left. The entire right side of her head, neck, chest, and abdomen were scrubbed, painted, and draped in the usual sterile manner. The old clayton of her head were removed. We believed very strongly that this was a peritoneal catheter malfunction and based on the of the two malfunctions that something was obviously going on in her abdomen whether that was scarring, adhesions etc, that we would the peritoneal catheter was not functioning, converted to a ventriculoatrial shunt. After prepping and draping, the cranial incision was opened. I disconnected the peritoneal catheter from the distal valve. Clear CSF under high pressure immediately showed out of the valve obviously indicating the proximal portion ____ working. The peritoneal catheter actually returned some fluid in a retrograde fashion, obviously indicating it was the malfunctioning problem. Thus, we decided to proceed with the placement of the atrial shunt. At this point, Dr. Monroe engaged the right internal jugular vein and opened skin incision in the right side of her neck. Once access to the vein has been established, we tunneled a new peritoneal catheter along that tract from the cranial wound to the RJ wound. We removed the peritoneal catheter. Dr. Monroe then implanted the distal end of the new catheter several centimeters corresponding roughly to the area of the atrium through the jugular vein. We then trimmed as much catheter as proper to hook it up to the distal end of the valve and switched that in place with a silk tie. The shunt pumped and refilled very nicely upon its final positioning. I have noted that the valve assembling was never altered at all and remained sutured to the periosteum. At this point, Dr. Monroe and her team closed the neck wound. I irrigated the cranial wound with antibiotic solution. I then injected approximately 5 to 10 mg of vancomycin and 5 to 10 mg of gentamicin directly into the valve for additional antibiotic prophylaxis. Galea closed using interrupted inverted 3-0 Vicryl. The skin closed with clayton. Bacitracin ointment and a self-adhering dressing was placed. The patient was intentionally kept intubated, brought to the recovery room for a delayed recovery room extubation. All counts were correct. There were no complications. Fer Hancock MD
[2017-10-20] MEDS ORDERED: Bacitracin 500 Units/gm Oint Foilpak UD TOP ONE ×2 (08:39→09:45)
--- NOTE | 2017-10-20 09:00 | CP.PCM.PN ---
Subjective - Date & Time of Evaluation Date of Evaluation: 10/20/17 Time of Evaluation: 08:45 - Subjective Subjective: Patient this morning undergoing additional neurosurgery intervention at bedside. They are connecting a ventriculostomy Yesterday moved to the ICU after CT scan revealed the the hydrocephalus was not improving after her 3rd revision of the FOURTH GRADE TEACHER shunt Currently patient is non verbal and non responsive. Family members at bedside at this moment. Her blood pressure, HR are stable at this moment. Morning labs were also stable as well. Objective - Vital Signs/Intake and Output Vital Signs (last 24 hours): Temp Pulse Resp BP Pulse Ox 99.8 F H 89 15 115/43 L 98 10/20/17 05:53 10/20/17 06:26 10/20/17 06:26 10/20/17 06:26 10/20/17 06:26 Intake and Output: 10/20/17 10/20/17 06:59 18:59 Intake Total 150 Output Total 350 Balance -200 - Medications Medications: Current Medications Amlodipine Besylate (Norvasc) 5 mg PO DAILY [facility] Last Admin: 10/19/17 10:30 Dose: Not Given Bupropion HCl (Wellbutrin Xl) 150 mg PO DAILY [facility] Last Admin: 10/19/17 10:30 Dose: Not Given Dextrose (Dextrose 50% Inj) 0 ml IV STAT PRN; Protocol PRN Reason: Hypoglycemia Protocol Dextrose (Glutose 15) 0 gm PO ONCE PRN; Protocol PRN Reason: Hypoglycemia Protocol Glucagon (Glucagen Diagnostic Kit) 0 mg IM STAT PRN; Protocol PRN Reason: Hypoglycemia Protocol Valproate Sodium 500 mg/ (Sodium Chloride) 105 mls @ 100 mls/hr IVPB Q12H [facility] Last Admin: 10/20/17 02:05 Dose: 100 mls/hr Insulin Detemir (Levemir) 15 unit SC Q12 [facility] Last Admin: 10/19/17 22:09 Dose: Not Given Insulin Human Regular (Novolin R) 0 unit SC ACHS [facility] PRN Reason: Protocol Last Admin: 10/19/17 22:03 Dose: Not Given Latanoprost (Xalatan Opht) 0 ml OU HS [facility] Last Admin: 10/19/17 22:05 Dose: 2.5 ml Metoprolol Tartrate (Lopressor) 12.5 mg PO BID [facility] Last Admin: 10/19/17 18:26 Dose: 12.5 mg Pantoprazole Sodium (Protonix Ec Tab) 40 mg PO DAILY [facility] Last Admin: 10/19/17 10:30 Dose: Not Given Rosuvastatin Calcium (Crestor) 5 mg PO HS [facility] Last Admin: 10/19/17 22:01 Dose: 5 mg - Labs Labs: 10/20/17 06:39 10/20/17 06:39 PT 10.9 SECONDS (9.7-12.2) 10/09/17 11:37 INR 1.0 10/09/17 11:37 APTT 26 SECONDS (21-34) 10/03/17 10:30 - Constitutional Appears: Chronically Ill - Head Exam Additional comments: S/P shunt revision, also now has a ventriculostomy at this time. - ENT Exam ENT Exam: Mucous Membranes Moist - Respiratory Exam Respiratory Exam: Clear to Ausculation Bilateral, NORMAL BREATHING PATTERN - Cardiovascular Exam Cardiovascular Exam: REGULAR RHYTHM - GI/Abdominal Exam GI & Abdominal Exam: Soft, Normal Bowel Sounds - Skin Skin Exam: Normal Color, Warm Assessment and Plan - Assessment and Plan (Free Text) Assessment: FOUR[employer] GRADE TEACHER shunt malfunction and change in mental status 10/20: Patient moved to the ICU last night after CT scan was not improving. At bedside this morning had ventriculostomy connected. 10/19: S/P FOURTH GRADE TEACHER shunt revision today. patient is responding to pain but still not able to be awoken. Head CT 10/18/17: Worsening hydrocephalus despite right transfrontal ventriculostomy catheter. 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 FOURTH GRADE TEACHER Shunt repair 02/26 -Neurosurgery Dr Hancock/Ella is consulted * s/p FOURTH GRADE TEACHER shunt revision - 3rd this hospital stay (10/10/2017, 10/11/2017 and 2017) -Neurology consulted, Dr. Nixon -Neurology, Dr. Mota is consulted CSF culture: no growth to date 10/10/17 Cultures are negative and patient is improving and off antibiotics -continue valproate 500mg IVPB q12h for seizure prophylaxis Altered Mental Status 10/20: As mentioned previously, currently non verbal and non responsive. Hopefully will see some improvment. Diabetes Accuchecks ACHS Medium Dose insulin sliding scale Levemir dose of 15 units BID - Held due to patient's decrease in mental status and is unable to eat any food. Will hold home metformin for now Hypoglycemia protocol HLD Crestor 5 mg po hs Asthma Will continue to monitor saturation Hypertension Amlodipine 5mg PO daily Metoprolol Tart 12.5mg PO BID Prophylactic measure Heparin 5,000units SC q8h [facility] Protonix 40mg PO daily
--- NOTE | 2017-10-20 09:31 | CT ---
PROCEDURE: CT HEAD WITHOUT CONTRAST. HISTORY: Status post [employer] shunt tube revision. COMPARISON: Comparison made with prior study dated 10/18/2017. TECHNIQUE: Axial computed tomography images were obtained through the head/brain without intravenous contrast. Radiation dose: Total exam DLP = 804.28 mGy-cm. This CT exam was performed using one or more of the following dose reduction techniques: Automated exposure control, adjustment of the mA and/or kV according to patient size, and/or use of iterative reconstruction technique. FINDINGS: HEMORRHAGE: No acute parenchymal, subarachnoid nor extra-axial hemorrhage. BRAIN: Fairly significant diffuse and confluent low-attenuation periventricular white matter changes are again seen extending peripherally into the deep to lesser degree subcortical white matter both cerebral hemispheres. No change in position [employer] shunt tube. VENTRICLES: The ventricles are dilated 3rd and lateral ventricles are dilated and have increased in size. Findings suggestive new shunt malfunction. CALVARIUM: No interval change right-sided sarina hole through which a [employer]ORDINATOR shunt tube extends. There also postoperative scalp changes are related to recent shunt malfunction with multiple in situ metallic skin closure [place] PARANASAL SINUSES: Unremarkable as visualized. No significant inflammatory changes. MASTOID AIR CELLS: Unremarkable as visualized. No inflammatory changes. OTHER FINDINGS: None. IMPRESSION: Marked dilatation 3rd and lateral ventricles increased from prior study. Findings suggest new shunt malfunction . Chronic white matter changes may represent some combination of transependymal edema and or microvascular ischemic disease.
[2017-10-20] MEDS: Pantoprazole 40 mg EC Tab PO SCH (10:06)
[2017-10-20] MEDS: buPROPion 150 mg/24 Hours XL Tab PO SCH (10:06)
[2017-10-20] MEDS ORDERED: Mannitol 12.5 gm/50 ml Inj IV ONE ×2 (10:21→10:30)
[2017-10-20] MEDS ORDERED: Sodium Chloride 0.9% 1,000 ML IV ONE (11:57)
--- NOTE | 2017-10-20 12:45 | RAD ---
HISTORY: s/p Left TLC COMPARISON: 10/19/2017 FINDINGS: The left IJV line terminates in the SVC. There has been interval extubation. LUNGS: The lungs are clear. PLEURA: No significant pleural effusion identified, no pneumothorax apparent. CARDIOVASCULAR: Normal. OSSEOUS STRUCTURES: No significant abnormalities. VISUALIZED UPPER ABDOMEN: Normal. OTHER FINDINGS: None. IMPRESSION: Left IJV line terminates in the SVC. No pneumothorax. No acute findings.
[2017-10-20] MEDS: Insulin Detemir 100 units/ml Vial (Levemir) SC SCH ×2 (13:21→21:53)
[2017-10-20 15:48] LABS: SQUAMOUS EPITHIAL < 1 /hpf (0-5); URINE BILIRUBIN NEGATIVE (NEGATIVE); URINE BLOOD NEGATIVE (NEGATIVE); URINE CLARITY Clear (Clear); URINE COLOR Yellow (YELLOW); URINE GLUCOSE (UA) 2+ mg/dL (Normal); URINE LEUKOCYTE ESTERASE NEG Leu/uL (Negative); URINE PROTEIN NEGATIVE (NEGATIVE); URINE UROBILINOGEN NORMAL mg/dL (0.2-1.0)
--- NOTE | 2017-10-20 17:59 | CP.CCUPN ---
<Ernestine Posadas - Last Filed: 10/20/17 18:10> CCU Subjective - Physician Review Subjective (Free Text): Ms. 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 Patient admitted to the ICU for AMS and enlarging ventricles noted on CT Scan. CCU Objective - Vital Signs / Intake & Output Vital Signs (Last 4 hours): Vital Signs Temp Pulse Resp BP Pulse Ox 10/20/17 16:42 71 11 L 141/66 100 10/20/17 16:01 70 12 154/72 H 100 10/20/17 16:00 97.7 F 10/20/17 15:42 69 10 L 169/73 H 100 10/20/17 15:13 66 8 L 157/71 H 99 10/20/17 14:00 64 11 L 130/65 Intake and Output (Last 8hrs): Intake & Output 10/20/17 10/20/17 10/20/17 06:59 14:59 22:59 Intake Total 150 1099 0 Output Total 350 Balance -200 1099 0 Weight 206 lb 8 oz 206 lb Intake: Intake, IV Amount 1099 0 Left Forearm 999 0 Left Medial Port Internal 100 0 Jugular Oral 150 Output: Urine 350 Urine, Voided 350 - Physical Exam Physical Exam Limitations: Positive for: Altered Mental Status Head: Positive for: Normocephalic Pupils: Positive for: PERRL Extroacular Muscles: Positive for: EOMI Mouth: Positive for: Dry, Other Respiratory/Chest: Positive for: Clear to Auscultation. Negative for: Respiratory Distress Cardiovascular: Positive for: Regular Rate and Rhythm Abdomen: Positive for: Normal Bowel Sounds. Negative for: Tenderness, Distention Upper Extremity: Positive for: Normal Inspection, NORMAL PULSES, Neurovascularly Intact, Capillary Refill < 2s Lower Extremity: Positive for: Normal Inspection, NORMAL PULSES, Neurovascularly Intact, Capillary Refill < 2 s Skin: Positive for: Warm, Dry, Normal Color Psychiatric: Positive for: Lethargic - Medications Active Medications: Active Medications Generic Name Dose Route Start Last Admin Trade Name Freq PRN Reason Stop Dose Admin Dextrose 0 ml 10/03/17 13:28 Dextrose 50% Inj IV STAT PRN Hypoglycemia Protocol Protocol Dextrose 0 gm 10/03/17 13:28 Glutose 15 PO ONCE PRN Hypoglycemia Protocol Protocol Glucagon 0 mg 10/03/17 13:28 Glucagen Diagnostic Kit IM STAT PRN Hypoglycemia Protocol Protocol Valproate Sodium 500 mg/ 105 mls @ 100 mls/hr 10/11/17 14:03 10/20/17 14:22 Sodium Chloride IVPB 100 mls/hr Q12H MOLLY Administration Vancomycin HCl 1 gm/ Sodium 250 mls @ 166.7 mls/hr 10/20/17 18:00 Chloride IVPB Q24H MOLLY Protocol Insulin Detemir 15 unit 10/15/17 22:00 10/20/17 13:21 Levemir SC Not Given Q12 MOLLY Insulin Human Regular 0 unit 10/14/17 11:30 10/20/17 17:08 Novolin R SC Not Given ACHS MOLLY Protocol Latanoprost 0 ml 10/03/17 22:00 10/19/17 22:05 Xalatan Opht OU 2.5 ml HS MOLLY Administration Pantoprazole Sodium 40 mg 10/20/17 17:30 Protonix Inj IVP Q12H MOLLY - Patient Studies Lab Studies: Microbiology Studies 10/19/17 12:16 Gram Stain - Final Cerebral Spinal Fluid CSF Culture - Preliminary NO GROWTH AFTER 24 HOURS Lab Studies 10/20/17 10/20/17 10/20/17 Range/Units 16:24 15:36 11:14 WBC (4.8-10.8) K/uL RBC (3.80-5.20) Mil/uL Hgb (11.0-16.0) g/dL Hct (34.0-47.0) % MCV (81.0-99.0) fL MCH (27.0-31.0) pg MCHC (33.0-37.0) g/dL RDW (11.5-14.5) % Plt Count (130-400) K/uL MPV (7.2-11.7) fL Neut % (Auto) (50.0-75.0) % Lymph % (Auto) (20.0-40.0) % [place] % (Auto) (0.0-10.0) % Eos % (Auto) (0.0-4.0) % Baso % (Auto) (0.0-2.0) % Neut # (Auto) (1.8-7.0) K/uL Lymph # (Auto) (1.0-4.3) K/uL [place] # (Auto) (0.0-0.8) K/uL Eos # (Auto) (0.0-0.7) K/uL Baso # (Auto) (0.0-0.2) K/uL Sodium (132-148) mmol/L Potassium (3.6-5.2) mmol/L Chloride (98-107) mmol/L Carbon Dioxide (22-30) mmol/L Anion Gap (10-20) BUN (7-17) mg/dL Creatinine (0.7-1.2) mg/dL Est GFR ( Amer) Est GFR (Non-Af Amer) POC Glucose (mg/dL) 190 H 241 H (65-110) mg/dL Random Glucose (65-105) mg/dL Calcium (8.6-10.4) mg/dl Phosphorus (2.5-4.5) mg/dL Magnesium (1.6-2.3) mg/dL Total Bilirubin (0.2-1.3) mg/dL AST (14-36) U/L ALT (9-52) U/L Alkaline Phosphatase (38-126) U/L Total Protein (6.3-8.3) g/dL Albumin (3.5-5.0) g/dL Globulin (2.2-3.9) gm/dL Albumin/Globulin Ratio (1.0-2.1) Urine Color Yellow (YELLOW) Urine Clarity Clear (Clear) Urine pH 7.0 (5.0-8.0) Ur Specific [place] 1.019 (1.003-1.030) Urine Protein Negative (NEGATIVE) mg/dL Urine Glucose (UA) 2+ H (Normal) mg/dL Urine Ketones Trace (NEGATIVE) mg/dL Urine Blood Negative (NEGATIVE) Urine Nitrate Negative (NEGATIVE) Urine Bilirubin Negative (NEGATIVE) Urine Urobilinogen Normal (0.2-1.0) mg/dL Ur Leukocyte Esterase Neg (Negative) Alonso/uL Urine WBC (Auto) 1 (0-5) /hpf Urine RBC (Auto) 1 (0-3) /hpf Ur Squamous Epith Cells < 1 (0-5) /hpf 10/20/17 10/20/17 10/20/17 Range/Units 10:30 06:39 06:39 WBC 7.4 (4.8-10.8) K/uL RBC 4.46 (3.80-5.20) Mil/uL Hgb 13.1 (11.0-16.0) g/dL Hct 38.5 (34.0-47.0) % MCV 86.3 (81.0-99.0) fL MCH 29.3 (27.0-31.0) pg MCHC 33.9 (33.0-37.0) g/dL RDW 15.0 H (11.5-14.5) % Plt Count 263 (130-400) K/uL MPV 8.0 (7.2-11.7) fL Neut % (Auto) 57.8 (50.0-75.0) % Lymph % (Auto) 31.4 (20.0-40.0) % [place] % (Auto) 8.2 (0.0-10.0) % Eos % (Auto) 1.6 (0.0-4.0) % Baso % (Auto) 1.0 (0.0-2.0) % Neut # (Auto) 4.3 (1.8-7.0) K/uL Lymph # (Auto) 2.3 (1.0-4.3) K/uL [place] # (Auto) 0.6 (0.0-0.8) K/uL Eos # (Auto) 0.1 (0.0-0.7) K/uL Baso # (Auto) 0.1 (0.0-0.2) K/uL Sodium 143 (132-148) mmol/L Potassium 4.0 (3.6-5.2) mmol/L Chloride 102 (98-107) mmol/L Carbon Dioxide 27 (22-30) mmol/L Anion Gap 17 (10-20) BUN 15 (7-17) mg/dL Creatinine 0.8 (0.7-1.2) mg/dL Est GFR ( Amer) > 60 Est GFR (Non-Af Amer) > 60 POC Glucose (mg/dL) 259 H (65-110) mg/dL Random Glucose 203 H (65-105) mg/dL Calcium 8.6 (8.6-10.4) mg/dl Phosphorus 3.1 (2.5-4.5) mg/dL Magnesium 1.7 (1.6-2.3) mg/dL Total Bilirubin 0.7 (0.2-1.3) mg/dL AST 20 (14-36) U/L ALT 33 (9-52) U/L Alkaline Phosphatase 69 (38-126) U/L Total Protein 6.4 (6.3-8.3) g/dL Albumin 3.6 (3.5-5.0) g/dL Globulin 2.8 (2.2-3.9) gm/dL Albumin/Globulin Ratio 1.3 (1.0-2.1) Urine Color (YELLOW) Urine Clarity (Clear) Urine pH (5.0-8.0) Ur Specific [place] (1.003-1.030) Urine Protein (NEGATIVE) mg/dL Urine Glucose (UA) (Normal) mg/dL Urine Ketones (NEGATIVE) mg/dL Urine Blood (NEGATIVE) Urine Nitrate (NEGATIVE) Urine Bilirubin (NEGATIVE) Urine Urobilinogen (0.2-1.0) mg/dL Ur Leukocyte Esterase (Negative) Alonso/uL Urine WBC (Auto) (0-5) /hpf Urine RBC (Auto) (0-3) /hpf Ur Squamous Epith Cells (0-5) /hpf 10/20/17 10/20/17 10/19/17 Range/Units 05:52 02:48 21:18 WBC (4.8-10.8) K/uL RBC (3.80-5.20) Mil/uL Hgb (11.0-16.0) g/dL Hct (34.0-47.0) % MCV (81.0-99.0) fL MCH (27.0-31.0) pg MCHC (33.0-37.0) g/dL RDW (11.5-14.5) % Plt Count (130-400) K/uL MPV (7.2-11.7) fL Neut % (Auto) (50.0-75.0) % Lymph % (Auto) (20.0-40.0) % [place] % (Auto) (0.0-10.0) % Eos % (Auto) (0.0-4.0) % Baso % (Auto) (0.0-2.0) % Neut # (Auto) (1.8-7.0) K/uL Lymph # (Auto) (1.0-4.3) K/uL [place] # (Auto) (0.0-0.8) K/uL Eos # (Auto) (0.0-0.7) K/uL Baso # (Auto) (0.0-0.2) K/uL Sodium (132-148) mmol/L Potassium (3.6-5.2) mmol/L Chloride (98-107) mmol/L Carbon Dioxide (22-30) mmol/L Anion Gap (10-20) BUN (7-17) mg/dL Creatinine (0.7-1.2) mg/dL Est GFR ( Amer) Est GFR (Non-Af Amer) POC Glucose (mg/dL) 220 H 203 H 195 H (65-110) mg/dL Random Glucose (65-105) mg/dL Calcium (8.6-10.4) mg/dl Phosphorus (2.5-4.5) mg/dL Magnesium (1.6-2.3) mg/dL Total Bilirubin (0.2-1.3) mg/dL AST (14-36) U/L ALT (9-52) U/L Alkaline Phosphatase (38-126) U/L Total Protein (6.3-8.3) g/dL Albumin (3.5-5.0) g/dL Globulin (2.2-3.9) gm/dL Albumin/Globulin Ratio (1.0-2.1) Urine Color (YELLOW) Urine Clarity (Clear) Urine pH (5.0-8.0) Ur Specific [place] (1.003-1.030) Urine Protein (NEGATIVE) mg/dL Urine Glucose (UA) (Normal) mg/dL Urine Ketones (NEGATIVE) mg/dL Urine Blood (NEGATIVE) Urine Nitrate (NEGATIVE) Urine Bilirubin (NEGATIVE) Urine Urobilinogen (0.2-1.0) mg/dL Ur Leukocyte Esterase (Negative) Alonso/uL Urine WBC (Auto) (0-5) /hpf Urine RBC (Auto) (0-3) /hpf Ur Squamous Epith Cells (0-5) /hpf Laboratory Results - last 24 hr 10/19/17 10/20/17 10/20/17 21:18 02:48 05:52 WBC RBC Hgb Hct MCV MCH MCHC RDW Plt Count MPV Neut % (Auto) Lymph % (Auto) [place] % (Auto) Eos % (Auto) Baso % (Auto) Neut # (Auto) Lymph # (Auto) [place] # (Auto) Eos # (Auto) Baso # (Auto) Sodium Potassium Chloride Carbon Dioxide Anion Gap BUN Creatinine Est GFR ( Amer) Est GFR (Non-Af Amer) POC Glucose (mg/dL) 195 H 203 H 220 H Random Glucose Calcium Phosphorus Magnesium Total Bilirubin AST ALT Alkaline Phosphatase Total Protein Albumin Globulin Albumin/Globulin Ratio Urine Color Urine Clarity Urine pH Ur Specific [place] Urine Protein Urine Glucose (UA) Urine Ketones Urine Blood Urine Nitrate Urine Bilirubin Urine Urobilinogen Ur Leukocyte Esterase Urine WBC (Auto) Urine RBC (Auto) Ur Squamous Epith Cells 10/20/17 10/20/17 10/20/17 06:39 06:39 10:30 WBC 7.4 RBC 4.46 Hgb 13.1 Hct 38.5 MCV 86.3 MCH 29.3 MCHC 33.9 RDW 15.0 H Plt Count 263 MPV 8.0 Neut % (Auto) 57.8 Lymph % (Auto) 31.4 [place] % (Auto) 8.2 Eos % (Auto) 1.6 Baso % (Auto) 1.0 Neut # (Auto) 4.3 Lymph # (Auto) 2.3 [place] # (Auto) 0.6 Eos # (Auto) 0.1 Baso # (Auto) 0.1 Sodium 143 Potassium 4.0 Chloride 102 Carbon Dioxide 27 Anion Gap 17 BUN 15 Creatinine 0.8 Est GFR ( Amer) > 60 Est GFR (Non-Af Amer) > 60 POC Glucose (mg/dL) 259 H Random Glucose 203 H Calcium 8.6 Phosphorus 3.1 Magnesium 1.7 Total Bilirubin 0.7 AST 20 ALT 33 Alkaline Phosphatase 69 Total Protein 6.4 Albumin 3.6 Globulin 2.8 Albumin/Globulin Ratio 1.3 Urine Color Urine Clarity Urine pH Ur Specific [place] Urine Protein Urine Glucose (UA) Urine Ketones Urine Blood Urine Nitrate Urine Bilirubin Urine Urobilinogen Ur Leukocyte Esterase Urine WBC (Auto) Urine RBC (Auto) Ur Squamous Epith Cells 10/20/17 10/20/17 10/20/17 11:14 15:36 16:24 WBC RBC Hgb Hct MCV MCH MCHC RDW Plt Count MPV Neut % (Auto) Lymph % (Auto) [place] % (Auto) Eos % (Auto) Baso % (Auto) Neut # (Auto) Lymph # (Auto) [place] # (Auto) Eos # (Auto) Baso # (Auto) Sodium Potassium Chloride Carbon Dioxide Anion Gap BUN Creatinine Est GFR ( Amer) Est GFR (Non-Af Amer) POC Glucose (mg/dL) 241 H 190 H Random Glucose Calcium Phosphorus Magnesium Total Bilirubin AST ALT Alkaline Phosphatase Total Protein Albumin Globulin Albumin/Globulin Ratio Urine Color Yellow Urine Clarity Clear Urine pH 7.0 Ur Specific [place] 1.019 Urine Protein Negative Urine Glucose (UA) 2+ H Urine Ketones Trace Urine Blood Negative Urine Nitrate Negative Urine Bilirubin Negative Urine Urobilinogen Normal Ur Leukocyte Esterase Neg Urine WBC (Auto) 1 Urine RBC (Auto) 1 Ur Squamous Epith Cells < 1 Fingerstick Blood Sugar Results: 190 Critical Care Progress Note - Nutrition Nutrition: Nutrition Category Date Time Status NPO Diet [DIET] Diets 10/20/17 Dinner Active Assessment/Plan - Assessment and Plan (Free Text) Assessment: Ms. 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 Patient admitted to the ICU for AMS and enlarging ventricles noted on CT Scan. Plan: Neuro: A: History of hydrocephalus 2/2 to NPH ----Neurosurgery Dr Hancock/Ella is consulted - Shunt placed in 2014 - J2EE JAVA DEVELOPER Shunt repair 02/26/17 - s/p J2EE JAVA DEVELOPER shunt revision - 3rd this hospital stay (10/10/2017, 10/11/2017 and 2017) - Head CT 10/20: Marked dilatation 3rd and lateral ventricles increased from prior study. Findings suggest new shunt malfunction . Chronic white matter changes may represent some combination of transependymal edema and or microvascular ischemic disease. - Mannitol 25grams given x 1 Neurology consulted, Dr. Nixon - Continue valproate 500mg IVPB q12h for seizure prophylaxis Cardio: A: Hypertension - Held Amlodipine 5mg PO daily, Metoprolol Tart 12.5mg PO BID A: HLD - Crestor 5 mg po hs -HELD Pulm A: Hx Asthma Endo: A: Diabetes - Accuchecks - Medium Dose insulin sliding scale, Levemir dose of 15 units BID, ISS- low - Held due to current NPO status Prophylactic measure - SCDs - Protonix Q12 - Lines Left TLC placed 10/20/17 DOLORES Tavares, Ernestine Posadas DO, PGY-1 Proc: Central Venous Access - Time Performed Time Performed: 11:30 - Time Out Time Out: Side verified, Site verified, Patient ID confirmed, Sterile procedures obs. - Procedure Procedure: Central Line placement: Left Technique:: Internal jugular vein - Consent obtained Consent obtained: Written - Performed by Performed by: Mid-level Provider (Resident under ATTENDING supervision) - Indications Indication(s):: Peripheral vein unobtain., Mult.intravenous meds Contraindications: None Tube type:: Triple lumen - Local Anesthetic Local Anesthetic: Lidocaine: lidocaine 1% - Line sutured in place Line sutured in place:: Yes - Confirmation Confirmation:: CXR -tube approp position - Patient tolerated procedure Patient Tolerated Procedure:: Well <Chance Tavares - Last Filed: 10/20/17 18:33> CCU Objective - Vital Signs / Intake & Output Vital Signs (Last 4 hours): Vital Signs Temp Pulse Resp BP Pulse Ox 10/20/17 16:42 71 11 L 141/66 100 10/20/17 16:01 70 12 154/72 H 100 10/20/17 16:00 97.7 F 10/20/17 15:42 69 10 L 169/73 H 100 10/20/17 15:13 66 8 L 157/71 H 99 Intake and Output (Last 8hrs): Intake & Output 10/20/17 10/20/17 10/20/17 06:59 14:59 22:59 Intake Total 150 1099 0 Output Total 350 Balance -200 1099 0 Weight 206 lb 8 oz 206 lb Intake: Intake, IV Amount 1099 0 Left Forearm 999 0 Left Medial Port Internal 100 0 Jugular Oral 150 Output: Urine 350 Urine, Voided 350 - Medications Active Medications: Active Medications Generic Name Dose Route Start Last Admin Trade Name Freq PRN Reason Stop Dose Admin Dextrose 0 ml 10/03/17 13:28 Dextrose 50% Inj IV STAT PRN Hypoglycemia Protocol Protocol Dextrose 0 gm 10/03/17 13:28 Glutose 15 PO ONCE PRN Hypoglycemia Protocol Protocol Glucagon 0 mg 10/03/17 13:28 Glucagen Diagnostic Kit IM STAT PRN Hypoglycemia Protocol Protocol Valproate Sodium 500 mg/ 105 mls @ 100 mls/hr 10/11/17 14:03 10/20/17 14:22 Sodium Chloride IVPB 100 mls/hr Q12H MOLLY Administration Vancomycin HCl 1 gm/ Sodium 200 mls @ 133.333 mls/hr 10/20/17 18:30 Chloride IVPB Q24H MOLLY Protocol Insulin Detemir 15 unit 10/15/17 22:00 10/20/17 13:21 Levemir SC Not Given Q12 MOLLY Insulin Human Regular 0 unit 10/14/17 11:30 10/20/17 17:08 Novolin R SC Not Given ACHS MOLLY Protocol Latanoprost 0 ml 10/03/17 22:00 10/19/17 22:05 Xalatan Opht OU 2.5 ml HS MOLLY Administration Pantoprazole Sodium 40 mg 10/20/17 17:30 10/20/17 18:29 Protonix Inj IVP 40 mg Q12H MOLLY Administration - Patient Studies Lab Studies: Microbiology Studies 10/19/17 12:16 Gram Stain - Final Cerebral Spinal Fluid CSF Culture - Preliminary NO GROWTH AFTER 24 HOURS Lab Studies 10/20/17 10/20/17 10/20/17 Range/Units 16:24 15:36 11:14 WBC (4.8-10.8) K/uL RBC (3.80-5.20) Mil/uL Hgb (11.0-16.0) g/dL Hct (34.0-47.0) % MCV (81.0-99.0) fL MCH (27.0-31.0) pg MCHC (33.0-37.0) g/dL RDW (11.5-14.5) % Plt Count (130-400) K/uL MPV (7.2-11.7) fL Neut % (Auto) (50.0-75.0) % Lymph % (Auto) (20.0-40.0) % [place] % (Auto) (0.0-10.0) % Eos % (Auto) (0.0-4.0) % Baso % (Auto) (0.0-2.0) % Neut # (Auto) (1.8-7.0) K/uL Lymph # (Auto) (1.0-4.3) K/uL [place] # (Auto) (0.0-0.8) K/uL Eos # (Auto) (0.0-0.7) K/uL Baso # (Auto) (0.0-0.2) K/uL Sodium (132-148) mmol/L Potassium (3.6-5.2) mmol/L Chloride (98-107) mmol/L Carbon Dioxide (22-30) mmol/L Anion Gap (10-20) BUN (7-17) mg/dL Creatinine (0.7-1.2) mg/dL Est GFR ( Amer) Est GFR (Non-Af Amer) POC Glucose (mg/dL) 190 H 241 H (65-110) mg/dL Random Glucose (65-105) mg/dL Calcium (8.6-10.4) mg/dl Phosphorus (2.5-4.5) mg/dL Magnesium (1.6-2.3) mg/dL Total Bilirubin (0.2-1.3) mg/dL AST (14-36) U/L ALT (9-52) U/L Alkaline Phosphatase (38-126) U/L Total Protein (6.3-8.3) g/dL Albumin (3.5-5.0) g/dL Globulin (2.2-3.9) gm/dL Albumin/Globulin Ratio (1.0-2.1) Urine Color Yellow (YELLOW) Urine Clarity Clear (Clear) Urine pH 7.0 (5.0-8.0) Ur Specific [place] 1.019 (1.003-1.030) Urine Protein Negative (NEGATIVE) mg/dL Urine Glucose (UA) 2+ H (Normal) mg/dL Urine Ketones Trace (NEGATIVE) mg/dL Urine Blood Negative (NEGATIVE) Urine Nitrate Negative (NEGATIVE) Urine Bilirubin Negative (NEGATIVE) Urine Urobilinogen Normal (0.2-1.0) mg/dL Ur Leukocyte Esterase Neg (Negative) Alonso/uL Urine WBC (Auto) 1 (0-5) /hpf Urine RBC (Auto) 1 (0-3) /hpf Ur Squamous Epith Cells < 1 (0-5) /hpf 10/20/17 10/20/17 10/20/17 Range/Units 10:30 06:39 06:39 WBC 7.4 (4.8-10.8) K/uL RBC 4.46 (3.80-5.20) Mil/uL Hgb 13.1 (11.0-16.0) g/dL Hct 38.5 (34.0-47.0) % MCV 86.3 (81.0-99.0) fL MCH 29.3 (27.0-31.0) pg MCHC 33.9 (33.0-37.0) g/dL RDW 15.0 H (11.5-14.5) % Plt Count 263 (130-400) K/uL MPV 8.0 (7.2-11.7) fL Neut % (Auto) 57.8 (50.0-75.0) % Lymph % (Auto) 31.4 (20.0-40.0) % [place] % (Auto) 8.2 (0.0-10.0) % Eos % (Auto) 1.6 (0.0-4.0) % Baso % (Auto) 1.0 (0.0-2.0) % Neut # (Auto) 4.3 (1.8-7.0) K/uL Lymph # (Auto) 2.3 (1.0-4.3) K/uL [place] # (Auto) 0.6 (0.0-0.8) K/uL Eos # (Auto) 0.1 (0.0-0.7) K/uL Baso # (Auto) 0.1 (0.0-0.2) K/uL Sodium 143 (132-148) mmol/L Potassium 4.0 (3.6-5.2) mmol/L Chloride 102 (98-107) mmol/L Carbon Dioxide 27 (22-30) mmol/L Anion Gap 17 (10-20) BUN 15 (7-17) mg/dL Creatinine 0.8 (0.7-1.2) mg/dL Est GFR ( Amer) > 60 Est GFR (Non-Af Amer) > 60 POC Glucose (mg/dL) 259 H (65-110) mg/dL Random Glucose 203 H (65-105) mg/dL Calcium 8.6 (8.6-10.4) mg/dl Phosphorus 3.1 (2.5-4.5) mg/dL Magnesium 1.7 (1.6-2.3) mg/dL Total Bilirubin 0.7 (0.2-1.3) mg/dL AST 20 (14-36) U/L ALT 33 (9-52) U/L Alkaline Phosphatase 69 (38-126) U/L Total Protein 6.4 (6.3-8.3) g/dL Albumin 3.6 (3.5-5.0) g/dL Globulin 2.8 (2.2-3.9) gm/dL Albumin/Globulin Ratio 1.3 (1.0-2.1) Urine Color (YELLOW) Urine Clarity (Clear) Urine pH (5.0-8.0) Ur Specific [place] (1.003-1.030) Urine Protein (NEGATIVE) mg/dL Urine Glucose (UA) (Normal) mg/dL Urine Ketones (NEGATIVE) mg/dL Urine Blood (NEGATIVE) Urine Nitrate (NEGATIVE) Urine Bilirubin (NEGATIVE) Urine Urobilinogen (0.2-1.0) mg/dL Ur Leukocyte Esterase (Negative) Alonso/uL Urine WBC (Auto) (0-5) /hpf Urine RBC (Auto) (0-3) /hpf Ur Squamous Epith Cells (0-5) /hpf 10/20/17 10/20/17 10/19/17 Range/Units 05:52 02:48 21:18 WBC (4.8-10.8) K/uL RBC (3.80-5.20) Mil/uL Hgb (11.0-16.0) g/dL Hct (34.0-47.0) % MCV (81.0-99.0) fL MCH (27.0-31.0) pg MCHC (33.0-37.0) g/dL RDW (11.5-14.5) % Plt Count (130-400) K/uL MPV (7.2-11.7) fL Neut % (Auto) (50.0-75.0) % Lymph % (Auto) (20.0-40.0) % [place] % (Auto) (0.0-10.0) % Eos % (Auto) (0.0-4.0) % Baso % (Auto) (0.0-2.0) % Neut # (Auto) (1.8-7.0) K/uL Lymph # (Auto) (1.0-4.3) K/uL [place] # (Auto) (0.0-0.8) K/uL Eos # (Auto) (0.0-0.7) K/uL Baso # (Auto) (0.0-0.2) K/uL Sodium (132-148) mmol/L Potassium (3.6-5.2) mmol/L Chloride (98-107) mmol/L Carbon Dioxide (22-30) mmol/L Anion Gap (10-20) BUN (7-17) mg/dL Creatinine (0.7-1.2) mg/dL Est GFR ( Amer) Est GFR (Non-Af Amer) POC Glucose (mg/dL) 220 H 203 H 195 H (65-110) mg/dL Random Glucose (65-105) mg/dL Calcium (8.6-10.4) mg/dl Phosphorus (2.5-4.5) mg/dL Magnesium (1.6-2.3) mg/dL Total Bilirubin (0.2-1.3) mg/dL AST (14-36) U/L ALT (9-52) U/L Alkaline Phosphatase (38-126) U/L Total Protein (6.3-8.3) g/dL Albumin (3.5-5.0) g/dL Globulin (2.2-3.9) gm/dL Albumin/Globulin Ratio (1.0-2.1) Urine Color (YELLOW) Urine Clarity (Clear) Urine pH (5.0-8.0) Ur Specific [place] (1.003-1.030) Urine Protein (NEGATIVE) mg/dL Urine Glucose (UA) (Normal) mg/dL Urine Ketones (NEGATIVE) mg/dL Urine Blood (NEGATIVE) Urine Nitrate (NEGATIVE) Urine Bilirubin (NEGATIVE) Urine Urobilinogen (0.2-1.0) mg/dL Ur Leukocyte Esterase (Negative) Alonso/uL Urine WBC (Auto) (0-5) /hpf Urine RBC (Auto) (0-3) /hpf Ur Squamous Epith Cells (0-5) /hpf Laboratory Results - last 24 hr 10/19/17 10/20/17 10/20/17 21:18 02:48 05:52 WBC RBC Hgb Hct MCV MCH MCHC RDW Plt Count MPV Neut % (Auto) Lymph % (Auto) [place] % (Auto) Eos % (Auto) Baso % (Auto) Neut # (Auto) Lymph # (Auto) [place] # (Auto) Eos # (Auto) Baso # (Auto) Sodium Potassium Chloride Carbon Dioxide Anion Gap BUN Creatinine Est GFR ( Amer) Est GFR (Non-Af Amer) POC Glucose (mg/dL) 195 H 203 H 220 H Random Glucose Calcium Phosphorus Magnesium Total Bilirubin AST ALT Alkaline Phosphatase Total Protein Albumin Globulin Albumin/Globulin Ratio Urine Color Urine Clarity Urine pH Ur Specific [place] Urine Protein Urine Glucose (UA) Urine Ketones Urine Blood Urine Nitrate Urine Bilirubin Urine Urobilinogen Ur Leukocyte Esterase Urine WBC (Auto) Urine RBC (Auto) Ur Squamous Epith Cells 10/20/17 10/20/17 10/20/17 06:39 06:39 10:30 WBC 7.4 RBC 4.46 Hgb 13.1 Hct 38.5 MCV 86.3 MCH 29.3 MCHC 33.9 RDW 15.0 H Plt Count 263 MPV 8.0 Neut % (Auto) 57.8 Lymph % (Auto) 31.4 [place] % (Auto) 8.2 Eos % (Auto) 1.6 Baso % (Auto) 1.0 Neut # (Auto) 4.3 Lymph # (Auto) 2.3 [place] # (Auto) 0.6 Eos # (Auto) 0.1 Baso # (Auto) 0.1 Sodium 143 Potassium 4.0 Chloride 102 Carbon Dioxide 27 Anion Gap 17 BUN 15 Creatinine 0.8 Est GFR ( Amer) > 60 Est GFR (Non-Af Amer) > 60 POC Glucose (mg/dL) 259 H Random Glucose 203 H Calcium 8.6 Phosphorus 3.1 Magnesium 1.7 Total Bilirubin 0.7 AST 20 ALT 33 Alkaline Phosphatase 69 Total Protein 6.4 Albumin 3.6 Globulin 2.8 Albumin/Globulin Ratio 1.3 Urine Color Urine Clarity Urine pH Ur Specific [place] Urine Protein Urine Glucose (UA) Urine Ketones Urine Blood Urine Nitrate Urine Bilirubin Urine Urobilinogen Ur Leukocyte Esterase Urine WBC (Auto) Urine RBC (Auto) Ur Squamous Epith Cells 10/20/17 10/20/17 10/20/17 11:14 15:36 16:24 WBC RBC Hgb Hct MCV MCH MCHC RDW Plt Count MPV Neut % (Auto) Lymph % (Auto) [place] % (Auto) Eos % (Auto) Baso % (Auto) Neut # (Auto) Lymph # (Auto) [place] # (Auto) Eos # (Auto) Baso # (Auto) Sodium Potassium Chloride Carbon Dioxide Anion Gap BUN Creatinine Est GFR ( Amer) Est GFR (Non-Af Amer) POC Glucose (mg/dL) 241 H 190 H Random Glucose Calcium Phosphorus Magnesium Total Bilirubin AST ALT Alkaline Phosphatase Total Protein Albumin Globulin Albumin/Globulin Ratio Urine Color Yellow Urine Clarity Clear Urine pH 7.0 Ur Specific [place] 1.019 Urine Protein Negative Urine Glucose (UA) 2+ H Urine Ketones Trace Urine Blood Negative Urine Nitrate Negative Urine Bilirubin Negative Urine Urobilinogen Normal Ur Leukocyte Esterase Neg Urine WBC (Auto) 1 Urine RBC (Auto) 1 Ur Squamous Epith Cells < 1 Critical Care Progress Note - Nutrition Nutrition: Nutrition Category Date Time Status NPO Diet [DIET] Diets 10/20/17 Dinner Active Assessment/Plan - Assessment and Plan (Free Text) Plan: PAtient seen and examined at bedside. PAtient with underlying hydrocephalus with non-functional EVD drain externalized by Neurosurgery today. -patient is not responsive to painful stimuli, non verbal, pupils not reactive, -able to protect airway -Continue to monitor -IV valproic acid, check ammonia -IV mannitol 25 gm now -IV ppi -blas-op vanco -monitor urine output -neuro exam q1hrs -BGM q6hrs ISS aspart -Prognosis poor as mental status deteriorated significantly. -family at bedside aware of poor prognosis -central line placed for IV access and IV manitol -neurosurgery follow up - Date & Time Date: 10/20/17 Time: 18:33
[2017-10-20] MEDS ORDERED: Vancomycin 1 GM in Sodium Chloride 0.9% 200 ML IVPB SCH (18:30)
[2017-10-20] MEDS ORDERED: (Novolin R) Insulin Human Regular 100 units/ml vial SC SCH (19:00)
--- NOTE | 2017-10-20 19:10 | CP.PCM.PN ---
Subjective - Date & Time of Evaluation Date of Evaluation: 10/20/17 Time of Evaluation: 07:00 - Subjective Subjective: dictated Objective - Vital Signs/Intake and Output Vital Signs (last 24 hours): Temp Pulse Resp BP Pulse Ox 97.7 F 71 11 L 141/66 100 10/20/17 16:00 10/20/17 16:42 10/20/17 16:42 10/20/17 16:42 10/20/17 16:42 Intake and Output: 10/20/17 10/21/17 18:59 06:59 Intake Total 1099 Balance 1099 - Medications Medications: Current Medications Dextrose (Dextrose 50% Inj) 0 ml IV STAT PRN; Protocol PRN Reason: Hypoglycemia Protocol Dextrose (Glutose 15) 0 gm PO ONCE PRN; Protocol PRN Reason: Hypoglycemia Protocol Glucagon (Glucagen Diagnostic Kit) 0 mg IM STAT PRN; Protocol PRN Reason: Hypoglycemia Protocol Valproate Sodium 500 mg/ (Sodium Chloride) 105 mls @ 100 mls/hr IVPB Q12H MOLLY Last Admin: 10/20/17 14:22 Dose: 100 mls/hr Vancomycin HCl 1 gm/ Sodium (Chloride) 200 mls @ 133.333 mls/hr IVPB Q12 MOLLY PRN Reason: Protocol Meropenem 1 gm/ Sodium (Chloride) 100 mls @ 100 mls/hr IVPB Q8 MOLLY PRN Reason: Protocol Insulin Detemir (Levemir) 15 unit SC Q12 MOLLY Last Admin: 10/20/17 13:21 Dose: Not Given Insulin Human Regular (Novolin R) 0 unit SC Q6H MOLLY PRN Reason: Protocol Latanoprost (Xalatan Opht) 0 ml OU HS MOLLY Last Admin: 10/19/17 22:05 Dose: 2.5 ml Pantoprazole Sodium (Protonix Inj) 40 mg IVP Q12H MOLLY Last Admin: 10/20/17 18:29 Dose: 40 mg - Labs Labs: 10/20/17 06:39 10/20/17 06:39 PT 10.9 SECONDS (9.7-12.2) 10/09/17 11:37 INR 1.0 10/09/17 11:37 APTT 26 SECONDS (21-34) 10/03/17 10:30
[2017-10-20] MEDS: Sodium Chloride 0.9% 1,000 ML IV SCH (20:00)
[2017-10-20 20:09] LABS: ARTERIAL BLOOD GAS HEMOGLOBIN 12.7 g/dL (11.7-17.4); ARTERIAL BLOOD GAS O2 SAT 98.7 % (95-98); ARTERIAL BLOOD GAS PCO2 39 mm/Hg (35-45); ARTERIAL BLOOD GAS PH 7.48 (7.35-7.45); ARTERIAL BLOOD GAS PO2 91 mm/Hg (80-100); ARTERIAL BLOOD GAS TCO2 30.2 mmol/L (22-28)
[2017-10-20 20:51] LABS: ALB/GLOB RATIO 1.2 (1.0-2.1); ALBUMIN 3.4 g/dL (3.5-5.0); ALT/SGPT 33 U/L (9-52); AST/SGOT 25 U/L (14-36); BLOOD UREA NITROGEN 14 mg/dL (7-17); CALCIUM 8.5 mg/dl (8.6-10.4); GFR AFRICAN-AMERICAN > 60; GFR NON-AFRICAN AMERICAN > 60
[2017-10-20] MEDS: Meropenem 1 GM in Sodium Chloride 0.9% 100 ML IVPB SCH (21:00)
[2017-10-20] MEDS: Vancomycin 1 GM in Sodium Chloride 0.9% 200 ML IVPB SCH (21:55)
[2017-10-20] MEDS: Latanoprost 2.5 ml Opht Soln OU SCH (22:15)
[2017-10-21] MEDS: Valproate 500 MG in Sodium Chloride 0.9% 100 ML IVPB SCH ×2 (01:00→14:00)
--- NOTE | 2017-10-21 04:17 | PN ---
DATE: 10/20/2017 SUBJECTIVE: The patient was in ICU now back again, hence I came to see her. She is drowsy and she is not sedated at this time. She was brought into ICU because of increasing NPH, and she underwent a surgery last night according to the nurse and is lethargic since then. She has enlarging ventricles. She has had previous surgery on this [employer] shunt done while she was here and also 3 times before, and they went in last night again. She has tube draining externally the fluid from the brain as she has normal pressure hydrocephalus. The patient's daughter is at the bedside and was able to tell me few things as this is her fourth time, maybe fifth time, because three times before they had done. PHYSICAL EXAMINATION: GENERAL: She is lethargic. VITAL SIGNS: T-max is 99.1, blood pressure 152/67, respirations are 20, saturations 99%, and heart rate is 74. NECK: Supple. She has a triple lumen on the left side. LUNGS: Clear. No crackles or rales present. HEART: S1 and S2 is regular. ABDOMEN: Soft and nontender. No guarding, no rigidity present. EXTREMITIES: Have no edema, clubbing, or cyanosis at this time. She has Venodyne protectors. NEUROLOGIC: She is lethargic. LABORATORY DATA: Labs are noted. White count is 7.4, hemoglobin 13.1, hematocrit 38.5, and platelet count is 263. Sodium is 141, potassium 3.9, chlorides are 103, CO2 is 29, creatinine 0.7, BUN is 14, and anion gap is 13. She had ammonia which was less than 9. Sugars 168. IMPRESSION AND PLAN: She is already on vancomycin for prophylaxis at this time. They had taken a Cerebrospinal fluid culture yesterday which was negative after 24 hours. Urine culture was also taken today as the nurse said they put a new Fernandez catheter. At this time, I would do blood cultures and empirically put her on meropenem. She has had this repeated blockage problem, it is unclear the etiology and has normal pressure hydrocephalus and seizure disorder. She is diabetic and she has hypertension, hyperlipidemia, and normal pressure hydrocephalus. 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 Cerebrospinal fluid, blood, and urine cultures are pending. Naga Milton MD [facility] # [id number]
[2017-10-21] MEDS: Meropenem 1 GM in Sodium Chloride 0.9% 100 ML IVPB SCH ×3 (05:00→21:00)
[2017-10-21 06:20] LABS: BASO % 0.7 % (0.0-2.0); EOS # 0.1 K/uL (0.0-0.7); HEMOGLOBIN 11.2 g/dL (11.0-16.0); LYMPH # 1.8 K/uL (1.0-4.3); LYMPH % 32.5 % (20.0-40.0); MEAN CELL VOLUME 86.9 fL (81.0-99.0); MEAN CORPUSCULAR HEMOGLOBIN 29.1 pg (27.0-31.0); MEAN CORPUSCULAR HGB CONC 33.5 g/dL (33.0-37.0); MEAN PLATELET VOLUME 8.4 fL (7.2-11.7); MONO # 0.6 K/uL (0.0-0.8); MONO % 10.4 % (0.0-10.0); NEUT # 3.1 K/uL (1.8-7.0); NEUT % 54.4 % (50.0-75.0); NRBC % 0.1 % (0.0-2.0); RBC 3.84 Mil/uL (3.80-5.20); RED CELL DISTRIBUTION WIDTH 14.7 % (11.5-14.5); WHITE BLOOD COUNT 5.6 K/uL (4.8-10.8)
[2017-10-21 06:40] LABS: ALB/GLOB RATIO 1.1 (1.0-2.1); ALBUMIN 2.9 g/dL (3.5-5.0); ALT/SGPT 28 U/L (9-52); AST/SGOT 24 U/L (14-36); BLOOD UREA NITROGEN 14 mg/dL (7-17); GFR AFRICAN-AMERICAN > 60; GFR NON-AFRICAN AMERICAN > 60
--- NOTE | 2017-10-21 08:46 | CP.CCUPN ---
Addendum entered and electronically signed by Ernestine Posadas DO 10/21/17 10:35 : REPEAT HEAD CT: Repositioning of right frontal ventriculostomy catheter. The catheter no longer clearly extends into the ventricles. 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 Neurosurgery called. Original Note: <Ernestine Posadas - Last Filed: 10/21/17 08:41> CCU Subjective - Physician Review Subjective (Free Text): Patient seen and examined at bedside. Patient is lethargic, responsive to painful stimuli. CCU Objective - Vital Signs / Intake & Output Vital Signs (Last 4 hours): Vital Signs Pulse Resp BP Pulse Ox 10/21/17 07:00 73 100 10/21/17 06:42 77 12 106/63 99 10/21/17 06:11 75 13 109/54 L 97 10/21/17 06:00 75 14 98 10/21/17 05:42 78 16 131/53 L 98 10/21/17 05:11 74 12 100/47 L 99 10/21/17 05:00 75 14 99 Intake and Output (Last 8hrs): Intake & Output 10/20/17 10/21/17 10/21/17 22:59 06:59 14:59 Intake Total 275 675 75 Output Total 847 13 2 Balance -572 662 73 Weight 206 lb 8 oz Intake: Intake, IV Amount 275 675 75 Left Forearm 0 Left Medial Port Internal 275 675 75 Jugular Output: Drainage 47 13 2 Ventriculostomy 47 13 2 Urine 800 Urethral (Fernandez) 800 Other: # Bowel Movements 0 - Physical Exam Head: Positive for: Normocephalic Pupils: Positive for: PERRL Extroacular Muscles: Positive for: EOMI Mouth: Positive for: Dry, Other Respiratory/Chest: Positive for: Clear to Auscultation. Negative for: Respiratory Distress Cardiovascular: Positive for: Regular Rate and Rhythm Abdomen: Positive for: Normal Bowel Sounds. Negative for: Tenderness, Distention Upper Extremity: Positive for: Normal Inspection, NORMAL PULSES, Neurovascularly Intact, Capillary Refill < 2s Lower Extremity: Positive for: Normal Inspection, NORMAL PULSES, Neurovascularly Intact, Capillary Refill < 2 s Skin: Positive for: Warm, Dry, Normal Color Psychiatric: Positive for: Lethargic - Medications Active Medications: Active Medications Generic Name Dose Route Start Last Admin Trade Name Freq PRN Reason Stop Dose Admin Dextrose 0 ml 10/03/17 13:28 Dextrose 50% Inj IV STAT PRN Hypoglycemia Protocol Protocol Dextrose 0 gm 10/03/17 13:28 Glutose 15 PO ONCE PRN Hypoglycemia Protocol Protocol Glucagon 0 mg 10/03/17 13:28 Glucagen Diagnostic Kit IM STAT PRN Hypoglycemia Protocol Protocol Valproate Sodium 500 mg/ 105 mls @ 100 mls/hr 10/11/17 14:03 10/21/17 01:00 Sodium Chloride IVPB 100 mls/hr Q12H MOLLY Administration Vancomycin HCl 1 gm/ Sodium 200 mls @ 133.333 mls/hr 10/20/17 22:00 10/20/17 21:55 Chloride IVPB 133.333 mls/hr Q12 MOLLY Administration Protocol Meropenem 1 gm/ Sodium 100 mls @ 100 mls/hr 10/20/17 22:00 10/21/17 05:00 Chloride IVPB 100 mls/hr Q8 MOLLY Administration Protocol Sodium Chloride 1,000 mls @ 75 mls/hr 10/20/17 20:00 10/20/17 20:00 Sodium Chloride 0.9% IV 75 mls/hr .[id number] MOLLY Administration Insulin Detemir 15 unit 10/15/17 22:00 10/20/17 21:53 Levemir SC Not Given Q12 MOLLY Insulin Human Regular 0 unit 10/21/17 00:00 10/21/17 00:00 Novolin R SC Not Given Q6H MOLLY Protocol Latanoprost 0 ml 10/03/17 22:00 10/20/17 22:15 Xalatan Opht OU 2.5 ml HS MOLLY Administration Pantoprazole Sodium 40 mg 10/20/17 17:30 10/21/17 05:42 Protonix Inj IVP 40 mg Q12H MOLLY Administration - Patient Studies Lab Studies: Microbiology Studies 10/19/17 12:16 Gram Stain - Final Cerebral Spinal Fluid CSF Culture - Preliminary NO GROWTH AFTER 24 HOURS Lab Studies 10/21/17 10/21/17 10/21/17 Range/Units 06:13 06:13 05:36 WBC 5.6 (4.8-10.8) K/uL RBC 3.84 (3.80-5.20) Mil/uL Hgb 11.2 (11.0-16.0) g/dL Hct 33.4 L (34.0-47.0) % MCV 86.9 (81.0-99.0) fL MCH 29.1 (27.0-31.0) pg MCHC 33.5 (33.0-37.0) g/dL RDW 14.7 H (11.5-14.5) % Plt Count 180 (130-400) K/uL MPV 8.4 (7.2-11.7) fL Neut % (Auto) 54.4 (50.0-75.0) % Lymph % (Auto) 32.5 (20.0-40.0) % Chase % (Auto) 10.4 H (0.0-10.0) % Eos % (Auto) 2.0 (0.0-4.0) % Baso % (Auto) 0.7 (0.0-2.0) % Neut # (Auto) 3.1 (1.8-7.0) K/uL Lymph # (Auto) 1.8 (1.0-4.3) K/uL Chase # (Auto) 0.6 (0.0-0.8) K/uL Eos # (Auto) 0.1 (0.0-0.7) K/uL Baso # (Auto) 0.0 (0.0-0.2) K/uL Puncture Site pCO2 (35-45) mm/Hg pO2 (80-100) mm/Hg HCO3 (21-28) mmol/L ABG pH (7.35-7.45) ABG Total CO2 (22-28) mmol/L ABG O2 Saturation (95-98) % ABG Base Excess (-2.0-3.0) mmol/L ABG Hemoglobin (11.7-17.4) g/dL ABG Carboxyhemoglobin (0.5-1.5) % POC ABG HHb (Measured) (0.0-5.0) % ABG Methemoglobin (0.0-3.0) % Alan Test A-a O2 Difference mm/Hg Respiratory Index Hgb O2 Saturation (95.0-98.0) % Liter Flow FiO2 % Sodium 141 (132-148) mmol/L Potassium 3.7 (3.6-5.2) mmol/L Chloride 105 (98-107) mmol/L Carbon Dioxide 30 (22-30) mmol/L Anion Gap 10 (10-20) BUN 14 (7-17) mg/dL Creatinine 0.7 (0.7-1.2) mg/dL Est GFR ( Amer) > 60 Est GFR (Non-Af Amer) > 60 POC Glucose (mg/dL) 139 H (65-110) mg/dL Random Glucose 130 H (65-105) mg/dL Calcium 8.0 L (8.6-10.4) mg/dl Phosphorus 3.0 (2.5-4.5) mg/dL Magnesium 1.8 (1.6-2.3) mg/dL Total Bilirubin 0.6 (0.2-1.3) mg/dL AST 24 (14-36) U/L ALT 28 (9-52) U/L Alkaline Phosphatase 50 (38-126) U/L Ammonia (9-33) umol/L Total Protein 5.4 L (6.3-8.3) g/dL Albumin 2.9 L (3.5-5.0) g/dL Globulin 2.5 (2.2-3.9) gm/dL Albumin/Globulin Ratio 1.1 (1.0-2.1) Urine Color (YELLOW) Urine Clarity (Clear) Urine pH (5.0-8.0) Ur Specific [place] (1.003-1.030) Urine Protein (NEGATIVE) mg/dL Urine Glucose (UA) (Normal) mg/dL Urine Ketones (NEGATIVE) mg/dL Urine Blood (NEGATIVE) Urine Nitrate (NEGATIVE) Urine Bilirubin (NEGATIVE) Urine Urobilinogen (0.2-1.0) mg/dL Ur Leukocyte Esterase (Negative) Alonso/uL Urine WBC (Auto) (0-5) /hpf Urine RBC (Auto) (0-3) /hpf Ur Squamous Epith Cells (0-5) /hpf Valproic Acid (50.0-100.0) ug/mL 10/21/17 10/20/17 10/20/17 Range/Units 05:33 23:48 21:11 WBC (4.8-10.8) K/uL RBC (3.80-5.20) Mil/uL Hgb (11.0-16.0) g/dL Hct (34.0-47.0) % MCV (81.0-99.0) fL MCH (27.0-31.0) pg MCHC (33.0-37.0) g/dL RDW (11.5-14.5) % Plt Count (130-400) K/uL MPV (7.2-11.7) fL Neut % (Auto) (50.0-75.0) % Lymph % (Auto) (20.0-40.0) % Chase % (Auto) (0.0-10.0) % Eos % (Auto) (0.0-4.0) % Baso % (Auto) (0.0-2.0) % Neut # (Auto) (1.8-7.0) K/uL Lymph # (Auto) (1.0-4.3) K/uL [place] # (Auto) (0.0-0.8) K/uL Eos # (Auto) (0.0-0.7) K/uL Baso # (Auto) (0.0-0.2) K/uL Puncture Site pCO2 (35-45) mm/Hg pO2 (80-100) mm/Hg HCO3 (21-28) mmol/L ABG pH (7.35-7.45) ABG Total CO2 (22-28) mmol/L ABG O2 Saturation (95-98) % ABG Base Excess (-2.0-3.0) mmol/L ABG Hemoglobin (11.7-17.4) g/dL ABG Carboxyhemoglobin (0.5-1.5) % POC ABG HHb (Measured) (0.0-5.0) % ABG Methemoglobin (0.0-3.0) % Alan Test A-a O2 Difference mm/Hg Respiratory Index Hgb O2 Saturation (95.0-98.0) % Liter Flow FiO2 % Sodium (132-148) mmol/L Potassium (3.6-5.2) mmol/L Chloride (98-107) mmol/L Carbon Dioxide (22-30) mmol/L Anion Gap (10-20) BUN (7-17) mg/dL Creatinine (0.7-1.2) mg/dL Est GFR ( Amer) Est GFR (Non-Af Amer) POC Glucose (mg/dL) 20 L* 152 H 168 H (65-110) mg/dL Random Glucose (65-105) mg/dL Calcium (8.6-10.4) mg/dl Phosphorus (2.5-4.5) mg/dL Magnesium (1.6-2.3) mg/dL Total Bilirubin (0.2-1.3) mg/dL AST (14-36) U/L ALT (9-52) U/L Alkaline Phosphatase (38-126) U/L Ammonia (9-33) umol/L Total Protein (6.3-8.3) g/dL Albumin (3.5-5.0) g/dL Globulin (2.2-3.9) gm/dL Albumin/Globulin Ratio (1.0-2.1) Urine Color (YELLOW) Urine Clarity (Clear) Urine pH (5.0-8.0) Ur Specific [place] (1.003-1.030) Urine Protein (NEGATIVE) mg/dL Urine Glucose (UA) (Normal) mg/dL Urine Ketones (NEGATIVE) mg/dL Urine Blood (NEGATIVE) Urine Nitrate (NEGATIVE) Urine Bilirubin (NEGATIVE) Urine Urobilinogen (0.2-1.0) mg/dL Ur Leukocyte Esterase (Negative) Alonso/uL Urine WBC (Auto) (0-5) /hpf Urine RBC (Auto) (0-3) /hpf Ur Squamous Epith Cells (0-5) /hpf Valproic Acid (50.0-100.0) ug/mL 10/20/17 10/20/17 10/20/17 Range/Units 20:24 20:24 20:24 WBC (4.8-10.8) K/uL RBC (3.80-5.20) Mil/uL Hgb (11.0-16.0) g/dL Hct (34.0-47.0) % MCV (81.0-99.0) fL MCH (27.0-31.0) pg MCHC (33.0-37.0) g/dL RDW (11.5-14.5) % Plt Count (130-400) K/uL MPV (7.2-11.7) fL Neut % (Auto) (50.0-75.0) % Lymph % (Auto) (20.0-40.0) % Chase % (Auto) (0.0-10.0) % Eos % (Auto) (0.0-4.0) % Baso % (Auto) (0.0-2.0) % Neut # (Auto) (1.8-7.0) K/uL Lymph # (Auto) (1.0-4.3) K/uL [place] # (Auto) (0.0-0.8) K/uL Eos # (Auto) (0.0-0.7) K/uL Baso # (Auto) (0.0-0.2) K/uL Puncture Site pCO2 (35-45) mm/Hg pO2 (80-100) mm/Hg HCO3 (21-28) mmol/L ABG pH (7.35-7.45) ABG Total CO2 (22-28) mmol/L ABG O2 Saturation (95-98) % ABG Base Excess (-2.0-3.0) mmol/L ABG Hemoglobin (11.7-17.4) g/dL ABG Carboxyhemoglobin (0.5-1.5) % POC ABG HHb (Measured) (0.0-5.0) % ABG Methemoglobin (0.0-3.0) % Alan Test A-a O2 Difference mm/Hg Respiratory Index Hgb O2 Saturation (95.0-98.0) % Liter Flow FiO2 % Sodium 141 (132-148) mmol/L Potassium 3.9 (3.6-5.2) mmol/L Chloride 103 (98-107) mmol/L Carbon Dioxide 29 (22-30) mmol/L Anion Gap 13 (10-20) BUN 14 (7-17) mg/dL Creatinine 0.7 (0.7-1.2) mg/dL Est GFR ( Amer) > 60 Est GFR (Non-Af Amer) > 60 POC Glucose (mg/dL) (65-110) mg/dL Random Glucose 158 H (65-105) mg/dL Calcium 8.5 L (8.6-10.4) mg/dl Phosphorus 3.0 (2.5-4.5) mg/dL Magnesium 1.8 (1.6-2.3) mg/dL Total Bilirubin 0.6 (0.2-1.3) mg/dL AST 25 (14-36) U/L ALT 33 (9-52) U/L Alkaline Phosphatase 65 (38-126) U/L Ammonia < 9 L (9-33) umol/L Total Protein 6.2 L (6.3-8.3) g/dL Albumin 3.4 L (3.5-5.0) g/dL Globulin 2.9 (2.2-3.9) gm/dL Albumin/Globulin Ratio 1.2 (1.0-2.1) Urine Color (YELLOW) Urine Clarity (Clear) Urine pH (5.0-8.0) Ur Specific [place] (1.003-1.030) Urine Protein (NEGATIVE) mg/dL Urine Glucose (UA) (Normal) mg/dL Urine Ketones (NEGATIVE) mg/dL Urine Blood (NEGATIVE) Urine Nitrate (NEGATIVE) Urine Bilirubin (NEGATIVE) Urine Urobilinogen (0.2-1.0) mg/dL Ur Leukocyte Esterase (Negative) Alonso/uL Urine WBC (Auto) (0-5) /hpf Urine RBC (Auto) (0-3) /hpf Ur Squamous Epith Cells (0-5) /hpf Valproic Acid 56.8 (50.0-100.0) ug/mL 10/20/17 10/20/17 10/20/17 Range/Units 20:05 16:24 15:36 WBC (4.8-10.8) K/uL RBC (3.80-5.20) Mil/uL Hgb (11.0-16.0) g/dL Hct (34.0-47.0) % MCV (81.0-99.0) fL MCH (27.0-31.0) pg MCHC (33.0-37.0) g/dL RDW (11.5-14.5) % Plt Count (130-400) K/uL MPV (7.2-11.7) fL Neut % (Auto) (50.0-75.0) % Lymph % (Auto) (20.0-40.0) % Chase % (Auto) (0.0-10.0) % Eos % (Auto) (0.0-4.0) % Baso % (Auto) (0.0-2.0) % Neut # (Auto) (1.8-7.0) K/uL Lymph # (Auto) (1.0-4.3) K/uL [place] # (Auto) (0.0-0.8) K/uL Eos # (Auto) (0.0-0.7) K/uL Baso # (Auto) (0.0-0.2) K/uL Puncture Site Rba pCO2 39 (35-45) mm/Hg pO2 91 (80-100) mm/Hg HCO3 29.0 H (21-28) mmol/L ABG pH 7.48 H (7.35-7.45) ABG Total CO2 30.2 H (22-28) mmol/L ABG O2 Saturation 98.7 H (95-98) % ABG Base Excess 5.2 H (-2.0-3.0) mmol/L ABG Hemoglobin 12.7 (11.7-17.4) g/dL ABG Carboxyhemoglobin 1.5 (0.5-1.5) % POC ABG HHb (Measured) 1.3 (0.0-5.0) % ABG Methemoglobin 0.8 (0.0-3.0) % Alan Test Na A-a O2 Difference 74.0 mm/Hg Respiratory Index 0.8 Hgb O2 Saturation 96.4 (95.0-98.0) % Liter Flow 3.0 FiO2 30.0 % Sodium (132-148) mmol/L Potassium (3.6-5.2) mmol/L Chloride (98-107) mmol/L Carbon Dioxide (22-30) mmol/L Anion Gap (10-20) BUN (7-17) mg/dL Creatinine (0.7-1.2) mg/dL Est GFR ( Amer) Est GFR (Non-Af Amer) POC Glucose (mg/dL) 190 H (65-110) mg/dL Random Glucose (65-105) mg/dL Calcium (8.6-10.4) mg/dl Phosphorus (2.5-4.5) mg/dL Magnesium (1.6-2.3) mg/dL Total Bilirubin (0.2-1.3) mg/dL AST (14-36) U/L ALT (9-52) U/L Alkaline Phosphatase (38-126) U/L Ammonia (9-33) umol/L Total Protein (6.3-8.3) g/dL Albumin (3.5-5.0) g/dL Globulin (2.2-3.9) gm/dL Albumin/Globulin Ratio (1.0-2.1) Urine Color Yellow (YELLOW) Urine Clarity Clear (Clear) Urine pH 7.0 (5.0-8.0) Ur Specific [place] 1.019 (1.003-1.030) Urine Protein Negative (NEGATIVE) mg/dL Urine Glucose (UA) 2+ H (Normal) mg/dL Urine Ketones Trace (NEGATIVE) mg/dL Urine Blood Negative (NEGATIVE) Urine Nitrate Negative (NEGATIVE) Urine Bilirubin Negative (NEGATIVE) Urine Urobilinogen Normal (0.2-1.0) mg/dL Ur Leukocyte Esterase Neg (Negative) Alonso/uL Urine WBC (Auto) 1 (0-5) /hpf Urine RBC (Auto) 1 (0-3) /hpf Ur Squamous Epith Cells < 1 (0-5) /hpf Valproic Acid (50.0-100.0) ug/mL 10/20/17 10/20/17 10/20/17 Range/Units 11:14 10:30 05:52 WBC (4.8-10.8) K/uL RBC (3.80-5.20) Mil/uL Hgb (11.0-16.0) g/dL Hct (34.0-47.0) % MCV (81.0-99.0) fL MCH (27.0-31.0) pg MCHC (33.0-37.0) g/dL RDW (11.5-14.5) % Plt Count (130-400) K/uL MPV (7.2-11.7) fL Neut % (Auto) (50.0-75.0) % Lymph % (Auto) (20.0-40.0) % Chase % (Auto) (0.0-10.0) % Eos % (Auto) (0.0-4.0) % Baso % (Auto) (0.0-2.0) % Neut # (Auto) (1.8-7.0) K/uL Lymph # (Auto) (1.0-4.3) K/uL [place] # (Auto) (0.0-0.8) K/uL Eos # (Auto) (0.0-0.7) K/uL Baso # (Auto) (0.0-0.2) K/uL Puncture Site pCO2 (35-45) mm/Hg pO2 (80-100) mm/Hg HCO3 (21-28) mmol/L ABG pH (7.35-7.45) ABG Total CO2 (22-28) mmol/L ABG O2 Saturation (95-98) % ABG Base Excess (-2.0-3.0) mmol/L ABG Hemoglobin (11.7-17.4) g/dL ABG Carboxyhemoglobin (0.5-1.5) % POC ABG HHb (Measured) (0.0-5.0) % ABG Methemoglobin (0.0-3.0) % Alan Test A-a O2 Difference mm/Hg Respiratory Index Hgb O2 Saturation (95.0-98.0) % Liter Flow FiO2 % Sodium (132-148) mmol/L Potassium (3.6-5.2) mmol/L Chloride (98-107) mmol/L Carbon Dioxide (22-30) mmol/L Anion Gap (10-20) BUN (7-17) mg/dL Creatinine (0.7-1.2) mg/dL Est GFR ( Amer) Est GFR (Non-Af Amer) POC Glucose (mg/dL) 241 H 259 H 220 H (65-110) mg/dL Random Glucose (65-105) mg/dL Calcium (8.6-10.4) mg/dl Phosphorus (2.5-4.5) mg/dL Magnesium (1.6-2.3) mg/dL Total Bilirubin (0.2-1.3) mg/dL AST (14-36) U/L ALT (9-52) U/L Alkaline Phosphatase (38-126) U/L Ammonia (9-33) umol/L Total Protein (6.3-8.3) g/dL Albumin (3.5-5.0) g/dL Globulin (2.2-3.9) gm/dL Albumin/Globulin Ratio (1.0-2.1) Urine Color (YELLOW) Urine Clarity (Clear) Urine pH (5.0-8.0) Ur Specific [place] (1.003-1.030) Urine Protein (NEGATIVE) mg/dL Urine Glucose (UA) (Normal) mg/dL Urine Ketones (NEGATIVE) mg/dL Urine Blood (NEGATIVE) Urine Nitrate (NEGATIVE) Urine Bilirubin (NEGATIVE) Urine Urobilinogen (0.2-1.0) mg/dL Ur Leukocyte Esterase (Negative) Alonso/uL Urine WBC (Auto) (0-5) /hpf Urine RBC (Auto) (0-3) /hpf Ur Squamous Epith Cells (0-5) /hpf Valproic Acid (50.0-100.0) ug/mL Laboratory Results - last 24 hr 10/20/17 10/20/17 10/20/17 05:52 10:30 11:14 WBC RBC Hgb Hct MCV MCH MCHC RDW Plt Count MPV Neut % (Auto) Lymph % (Auto) [place] % (Auto) Eos % (Auto) Baso % (Auto) Neut # (Auto) Lymph # (Auto) [place] # (Auto) Eos # (Auto) Baso # (Auto) Puncture Site pCO2 pO2 HCO3 ABG pH ABG Total CO2 ABG O2 Saturation ABG Base Excess ABG Hemoglobin ABG Carboxyhemoglobin POC ABG HHb (Measured) ABG Methemoglobin Alan Test A-a O2 Difference Respiratory Index Hgb O2 Saturation Liter Flow FiO2 Sodium Potassium Chloride Carbon Dioxide Anion Gap BUN Creatinine Est GFR ( Amer) Est GFR (Non-Af Amer) POC Glucose (mg/dL) 220 H 259 H 241 H Random Glucose Calcium Phosphorus Magnesium Total Bilirubin AST ALT Alkaline Phosphatase Ammonia Total Protein Albumin Globulin Albumin/Globulin Ratio Urine Color Urine Clarity Urine pH Ur Specific [place] Urine Protein Urine Glucose (UA) Urine Ketones Urine Blood Urine Nitrate Urine Bilirubin Urine Urobilinogen Ur Leukocyte Esterase Urine WBC (Auto) Urine RBC (Auto) Ur Squamous Epith Cells Valproic Acid 10/20/17 10/20/17 10/20/17 15:36 16:24 20:05 WBC RBC Hgb Hct MCV MCH MCHC RDW Plt Count MPV Neut % (Auto) Lymph % (Auto) [place] % (Auto) Eos % (Auto) Baso % (Auto) Neut # (Auto) Lymph # (Auto) [place] # (Auto) Eos # (Auto) Baso # (Auto) Puncture Site Rba pCO2 39 pO2 91 HCO3 29.0 H ABG pH 7.48 H ABG Total CO2 30.2 H ABG O2 Saturation 98.7 H ABG Base Excess 5.2 H ABG Hemoglobin 12.7 ABG Carboxyhemoglobin 1.5 POC ABG HHb (Measured) 1.3 ABG Methemoglobin 0.8 Alan Test Na A-a O2 Difference 74.0 Respiratory Index 0.8 Hgb O2 Saturation 96.4 Liter Flow 3.0 FiO2 30.0 Sodium Potassium Chloride Carbon Dioxide Anion Gap BUN Creatinine Est GFR ( Amer) Est GFR (Non-Af Amer) POC Glucose (mg/dL) 190 H Random Glucose Calcium Phosphorus Magnesium Total Bilirubin AST ALT Alkaline Phosphatase Ammonia Total Protein Albumin Globulin Albumin/Globulin Ratio Urine Color Yellow Urine Clarity Clear Urine pH 7.0 Ur Specific [place] 1.019 Urine Protein Negative Urine Glucose (UA) 2+ H Urine Ketones Trace Urine Blood Negative Urine Nitrate Negative Urine Bilirubin Negative Urine Urobilinogen Normal Ur Leukocyte Esterase Neg Urine WBC (Auto) 1 Urine RBC (Auto) 1 Ur Squamous Epith Cells < 1 Valproic Acid 10/20/17 10/20/17 10/20/17 20:24 20:24 20:24 WBC RBC Hgb Hct MCV MCH MCHC RDW Plt Count MPV Neut % (Auto) Lymph % (Auto) [place] % (Auto) Eos % (Auto) Baso % (Auto) Neut # (Auto) Lymph # (Auto) [place] # (Auto) Eos # (Auto) Baso # (Auto) Puncture Site pCO2 pO2 HCO3 ABG pH ABG Total CO2 ABG O2 Saturation ABG Base Excess ABG Hemoglobin ABG Carboxyhemoglobin POC ABG HHb (Measured) ABG Methemoglobin Alan Test A-a O2 Difference Respiratory Index Hgb O2 Saturation Liter Flow FiO2 Sodium 141 Potassium 3.9 Chloride 103 Carbon Dioxide 29 Anion Gap 13 BUN 14 Creatinine 0.7 Est GFR ( Amer) > 60 Est GFR (Non-Af Amer) > 60 POC Glucose (mg/dL) Random Glucose 158 H Calcium 8.5 L Phosphorus 3.0 Magnesium 1.8 Total Bilirubin 0.6 AST 25 ALT 33 Alkaline Phosphatase 65 Ammonia < 9 L Total Protein 6.2 L Albumin 3.4 L Globulin 2.9 Albumin/Globulin Ratio 1.2 Urine Color Urine Clarity Urine pH Ur Specific [place] Urine Protein Urine Glucose (UA) Urine Ketones Urine Blood Urine Nitrate Urine Bilirubin Urine Urobilinogen Ur Leukocyte Esterase Urine WBC (Auto) Urine RBC (Auto) Ur Squamous Epith Cells Valproic Acid 56.8 10/20/17 10/20/17 10/21/17 21:11 23:48 05:33 WBC RBC Hgb Hct MCV MCH MCHC RDW Plt Count MPV Neut % (Auto) Lymph % (Auto) [place] % (Auto) Eos % (Auto) Baso % (Auto) Neut # (Auto) Lymph # (Auto) [place] # (Auto) Eos # (Auto) Baso # (Auto) Puncture Site pCO2 pO2 HCO3 ABG pH ABG Total CO2 ABG O2 Saturation ABG Base Excess ABG Hemoglobin ABG Carboxyhemoglobin POC ABG HHb (Measured) ABG Methemoglobin Alan Test A-a O2 Difference Respiratory Index Hgb O2 Saturation Liter Flow FiO2 Sodium Potassium Chloride Carbon Dioxide Anion Gap BUN Creatinine Est GFR ( Amer) Est GFR (Non-Af Amer) POC Glucose (mg/dL) 168 H 152 H 20 L* Random Glucose Calcium Phosphorus Magnesium Total Bilirubin AST ALT Alkaline Phosphatase Ammonia Total Protein Albumin Globulin Albumin/Globulin Ratio Urine Color Urine Clarity Urine pH Ur Specific [place] Urine Protein Urine Glucose (UA) Urine Ketones Urine Blood Urine Nitrate Urine Bilirubin Urine Urobilinogen Ur Leukocyte Esterase Urine WBC (Auto) Urine RBC (Auto) Ur Squamous Epith Cells Valproic Acid 10/21/17 10/21/17 10/21/17 05:36 06:13 06:13 WBC 5.6 RBC 3.84 Hgb 11.2 Hct 33.4 L MCV 86.9 MCH 29.1 MCHC 33.5 RDW 14.7 H Plt Count 180 MPV 8.4 Neut % (Auto) 54.4 Lymph % (Auto) 32.5 [place] % (Auto) 10.4 H Eos % (Auto) 2.0 Baso % (Auto) 0.7 Neut # (Auto) 3.1 Lymph # (Auto) 1.8 [place] # (Auto) 0.6 Eos # (Auto) 0.1 Baso # (Auto) 0.0 Puncture Site pCO2 pO2 HCO3 ABG pH ABG Total CO2 ABG O2 Saturation ABG Base Excess ABG Hemoglobin ABG Carboxyhemoglobin POC ABG HHb (Measured) ABG Methemoglobin Alan Test A-a O2 Difference Respiratory Index Hgb O2 Saturation Liter Flow FiO2 Sodium 141 Potassium 3.7 Chloride 105 Carbon Dioxide 30 Anion Gap 10 BUN 14 Creatinine 0.7 Est GFR ( Amer) > 60 Est GFR (Non-Af Amer) > 60 POC Glucose (mg/dL) 139 H Random Glucose 130 H Calcium 8.0 L Phosphorus 3.0 Magnesium 1.8 Total Bilirubin 0.6 AST 24 ALT 28 Alkaline Phosphatase 50 Ammonia Total Protein 5.4 L Albumin 2.9 L Globulin 2.5 Albumin/Globulin Ratio 1.1 Urine Color Urine Clarity Urine pH Ur Specific [place] Urine Protein Urine Glucose (UA) Urine Ketones Urine Blood Urine Nitrate Urine Bilirubin Urine Urobilinogen Ur Leukocyte Esterase Urine WBC (Auto) Urine RBC (Auto) Ur Squamous Epith Cells Valproic Acid Fingerstick Blood Sugar Results: 139 Critical Care Progress Note - Nutrition Nutrition: Nutrition Category Date Time Status NPO Diet [DIET] Diets 10/20/17 Dinner Active Assessment/Plan - Assessment and Plan (Free Text) Assessment: Ms. Diaz is a 66 year old female with PMHx of HTN, HLD, T2DM, and NPH with CROSSTIE [employer]PECT[employer] shunt placed in 2014, she underwent 4 CR[employer]IE [employer] shunt revisions 02/26/17, 3 during this admission (10/10/2017, 10/11/2017 and 10/19/2017). Patient admitted to the ICU for AMS and enlarging ventricles noted on CT Scan. Plan for revision on . 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 Milton consulted - Shunt placed in 2014 - CR[employer]IE [employer] Shunt repair 02/26/17 - s/p CR[employer]IE [employer] shunt revision - 3rd this hospital stay (10/10/2017, 10/11/2017 and 2017) - Plan for revision on 10/23/17 - Head CT 10/20: Marked dilatation 3rd and lateral ventricles increased from prior study. Findings suggest new shunt malfunction . Chronic white matter changes may represent some combination of transependymal edema and or microvascular ischemic disease. - Pending EEG - Mannitol 25grams given x 1 - Started on vanco Q12 and Meropenem 10/20 - F/U vaz cultures Neurology consulted, Dr. Nixon - Continue valproate 500mg IVPB q12h for seizure prophylaxis Cardio: A: Hypertension - Held Amlodipine 5mg PO daily, Metoprolol Tart 12.5mg PO BID A: HLD - Crestor 5 mg po hs - HELD Pulm A: Hx Asthma Endo: A: Diabetes - Accuchecks - Medium Dose insulin sliding scale, Levemir dose of 15 units BID, ISS- low - Held due to current NPO status Prophylaxis - SCDs - Protonix Q12 - Lines Left TLC placed 10/20/[address] Chance Tavares, Ernestine Posadas DO, PGY-1 <Chance Tavares M - Last Filed: 10/21/17 11:11> CCU Objective - Vital Signs / Intake & Output Intake and Output (Last 8hrs): Intake & Output 10/20/17 10/21/17 10/21/17 22:59 06:59 14:59 Intake Total 275 675 75 Output Total 847 13 2 Balance -572 662 73 Weight 206 lb 8 oz Intake: Intake, IV Amount 275 675 75 Left Forearm 0 Left Medial Port Internal 275 675 75 Jugular Output: Drainage 47 13 2 Ventriculostomy 47 13 2 Urine 800 Urethral (Fernandez) 800 Other: # Bowel Movements 0 - Medications Active Medications: Active Medications Generic Name Dose Route Start Last Admin Trade Name Freq PRN Reason Stop Dose Admin Dextrose 0 ml 10/03/17 13:28 Dextrose 50% Inj IV STAT PRN Hypoglycemia Protocol Protocol Dextrose 0 gm 10/03/17 13:28 Glutose 15 PO ONCE PRN Hypoglycemia Protocol Protocol Glucagon 0 mg 10/03/17 13:28 Glucagen Diagnostic Kit IM STAT PRN Hypoglycemia Protocol Protocol Valproate Sodium 500 mg/ 105 mls @ 100 mls/hr 10/11/17 14:03 10/21/17 01:00 Sodium Chloride IVPB 100 mls/hr Q12H MOLLY Administration Vancomycin HCl 1 gm/ Sodium 200 mls @ 133.333 mls/hr 10/20/17 22:00 10/21/17 10:23 Chloride IVPB 133.333 mls/hr Q12 MOLLY Administration Protocol Meropenem 1 gm/ Sodium 100 mls @ 100 mls/hr 10/20/17 22:00 10/21/17 05:00 Chloride IVPB 100 mls/hr Q8 MOLLY Administration Protocol Sodium Chloride 1,000 mls @ 75 mls/hr 10/20/17 20:00 10/21/17 10:23 Sodium Chloride 0.9% IV 75 mls/hr .[id number] MOLLY Administration Insulin Detemir 15 unit 10/15/17 22:00 10/20/17 21:53 Levemir SC Not Given Q12 MOLLY Insulin Human Regular 0 unit 10/21/17 00:00 10/21/17 00:00 Novolin R SC Not Given Q6H [facility] Protocol Latanoprost 0 ml 10/03/17 22:00 10/20/17 22:15 Xalatan Opht OU 2.5 ml HS MOLLY Administration Pantoprazole Sodium 40 mg 10/20/17 17:30 10/21/17 05:42 Protonix Inj IVP 40 mg Q12H MOLLY Administration - Patient Studies Lab Studies: Microbiology Studies 10/20/17 06:31 MRSA Culture (Admit) - Final Nose MRSA NOT DETECTED 10/19/17 12:16 Gram Stain - Final Cerebral Spinal Fluid CSF Culture - Preliminary NO GROWTH AFTER 24 HOURS Lab Studies 10/21/17 10/21/17 10/21/17 Range/Units 06:13 06:13 05:36 WBC 5.6 (4.8-10.8) K/uL RBC 3.84 (3.80-5.20) Mil/uL Hgb 11.2 (11.0-16.0) g/dL Hct 33.4 L (34.0-47.0) % MCV 86.9 (81.0-99.0) fL MCH 29.1 (27.0-31.0) pg MCHC 33.5 (33.0-37.0) g/dL RDW 14.7 H (11.5-14.5) % Plt Count 180 (130-400) K/uL MPV 8.4 (7.2-11.7) fL Neut % (Auto) 54.4 (50.0-75.0) % Lymph % (Auto) 32.5 (20.0-40.0) % Chase % (Auto) 10.4 H (0.0-10.0) % Eos % (Auto) 2.0 (0.0-4.0) % Baso % (Auto) 0.7 (0.0-2.0) % Neut # (Auto) 3.1 (1.8-7.0) K/uL Lymph # (Auto) 1.8 (1.0-4.3) K/uL Chase # (Auto) 0.6 (0.0-0.8) K/uL Eos # (Auto) 0.1 (0.0-0.7) K/uL Baso # (Auto) 0.0 (0.0-0.2) K/uL Puncture Site pCO2 (35-45) mm/Hg pO2 (80-100) mm/Hg HCO3 (21-28) mmol/L ABG pH (7.35-7.45) ABG Total CO2 (22-28) mmol/L ABG O2 Saturation (95-98) % ABG Base Excess (-2.0-3.0) mmol/L ABG Hemoglobin (11.7-17.4) g/dL ABG Carboxyhemoglobin (0.5-1.5) % POC ABG HHb (Measured) (0.0-5.0) % ABG Methemoglobin (0.0-3.0) % Alan Test A-a O2 Difference mm/Hg Respiratory Index Hgb O2 Saturation (95.0-98.0) % Liter Flow FiO2 % Sodium 141 (132-148) mmol/L Potassium 3.7 (3.6-5.2) mmol/L Chloride 105 (98-107) mmol/L Carbon Dioxide 30 (22-30) mmol/L Anion Gap 10 (10-20) BUN 14 (7-17) mg/dL Creatinine 0.7 (0.7-1.2) mg/dL Est GFR ( Amer) > 60 Est GFR (Non-Af Amer) > 60 POC Glucose (mg/dL) 139 H (65-110) mg/dL Random Glucose 130 H (65-105) mg/dL Calcium 8.0 L (8.6-10.4) mg/dl Phosphorus 3.0 (2.5-4.5) mg/dL Magnesium 1.8 (1.6-2.3) mg/dL Total Bilirubin 0.6 (0.2-1.3) mg/dL AST 24 (14-36) U/L ALT 28 (9-52) U/L Alkaline Phosphatase 50 (38-126) U/L Ammonia (9-33) umol/L Total Protein 5.4 L (6.3-8.3) g/dL Albumin 2.9 L (3.5-5.0) g/dL Globulin 2.5 (2.2-3.9) gm/dL Albumin/Globulin Ratio 1.1 (1.0-2.1) Urine Color (YELLOW) Urine Clarity (Clear) Urine pH (5.0-8.0) Ur Specific [place] (1.003-1.030) Urine Protein (NEGATIVE) mg/dL Urine Glucose (UA) (Normal) mg/dL Urine Ketones (NEGATIVE) mg/dL Urine Blood (NEGATIVE) Urine Nitrate (NEGATIVE) Urine Bilirubin (NEGATIVE) Urine Urobilinogen (0.2-1.0) mg/dL Ur Leukocyte Esterase (Negative) Alonso/uL Urine WBC (Auto) (0-5) /hpf Urine RBC (Auto) (0-3) /hpf Ur Squamous Epith Cells (0-5) /hpf Valproic Acid (50.0-100.0) ug/mL 10/21/17 10/20/17 10/20/17 Range/Units 05:33 23:48 21:11 WBC (4.8-10.8) K/uL RBC (3.80-5.20) Mil/uL Hgb (11.0-16.0) g/dL Hct (34.0-47.0) % MCV (81.0-99.0) fL MCH (27.0-31.0) pg MCHC (33.0-37.0) g/dL RDW (11.5-14.5) % Plt Count (130-400) K/uL MPV (7.2-11.7) fL Neut % (Auto) (50.0-75.0) % Lymph % (Auto) (20.0-40.0) % Chase % (Auto) (0.0-10.0) % Eos % (Auto) (0.0-4.0) % Baso % (Auto) (0.0-2.0) % Neut # (Auto) (1.8-7.0) K/uL Lymph # (Auto) (1.0-4.3) K/uL [place] # (Auto) (0.0-0.8) K/uL Eos # (Auto) (0.0-0.7) K/uL Baso # (Auto) (0.0-0.2) K/uL Puncture Site pCO2 (35-45) mm/Hg pO2 (80-100) mm/Hg HCO3 (21-28) mmol/L ABG pH (7.35-7.45) ABG Total CO2 (22-28) mmol/L ABG O2 Saturation (95-98) % ABG Base Excess (-2.0-3.0) mmol/L ABG Hemoglobin (11.7-17.4) g/dL ABG Carboxyhemoglobin (0.5-1.5) % POC ABG HHb (Measured) (0.0-5.0) % ABG Methemoglobin (0.0-3.0) % Alan Test A-a O2 Difference mm/Hg Respiratory Index Hgb O2 Saturation (95.0-98.0) % Liter Flow FiO2 % Sodium (132-148) mmol/L Potassium (3.6-5.2) mmol/L Chloride (98-107) mmol/L Carbon Dioxide (22-30) mmol/L Anion Gap (10-20) BUN (7-17) mg/dL Creatinine (0.7-1.2) mg/dL Est GFR ( Amer) Est GFR (Non-Af Amer) POC Glucose (mg/dL) 20 L* 152 H 168 H (65-110) mg/dL Random Glucose (65-105) mg/dL Calcium (8.6-10.4) mg/dl Phosphorus (2.5-4.5) mg/dL Magnesium (1.6-2.3) mg/dL Total Bilirubin (0.2-1.3) mg/dL AST (14-36) U/L ALT (9-52) U/L Alkaline Phosphatase (38-126) U/L Ammonia (9-33) umol/L Total Protein (6.3-8.3) g/dL Albumin (3.5-5.0) g/dL Globulin (2.2-3.9) gm/dL Albumin/Globulin Ratio (1.0-2.1) Urine Color (YELLOW) Urine Clarity (Clear) Urine pH (5.0-8.0) Ur Specific [place] (1.003-1.030) Urine Protein (NEGATIVE) mg/dL Urine Glucose (UA) (Normal) mg/dL Urine Ketones (NEGATIVE) mg/dL Urine Blood (NEGATIVE) Urine Nitrate (NEGATIVE) Urine Bilirubin (NEGATIVE) Urine Urobilinogen (0.2-1.0) mg/dL Ur Leukocyte Esterase (Negative) Alonso/uL Urine WBC (Auto) (0-5) /hpf Urine RBC (Auto) (0-3) /hpf Ur Squamous Epith Cells (0-5) /hpf Valproic Acid (50.0-100.0) ug/mL 10/20/17 10/20/17 10/20/17 Range/Units 20:24 20:24 20:24 WBC (4.8-10.8) K/uL RBC (3.80-5.20) Mil/uL Hgb (11.0-16.0) g/dL Hct (34.0-47.0) % MCV (81.0-99.0) fL MCH (27.0-31.0) pg MCHC (33.0-37.0) g/dL RDW (11.5-14.5) % Plt Count (130-400) K/uL MPV (7.2-11.7) fL Neut % (Auto) (50.0-75.0) % Lymph % (Auto) (20.0-40.0) % Chase % (Auto) (0.0-10.0) % Eos % (Auto) (0.0-4.0) % Baso % (Auto) (0.0-2.0) % Neut # (Auto) (1.8-7.0) K/uL Lymph # (Auto) (1.0-4.3) K/uL [place] # (Auto) (0.0-0.8) K/uL Eos # (Auto) (0.0-0.7) K/uL Baso # (Auto) (0.0-0.2) K/uL Puncture Site pCO2 (35-45) mm/Hg pO2 (80-100) mm/Hg HCO3 (21-28) mmol/L ABG pH (7.35-7.45) ABG Total CO2 (22-28) mmol/L ABG O2 Saturation (95-98) % ABG Base Excess (-2.0-3.0) mmol/L ABG Hemoglobin (11.7-17.4) g/dL ABG Carboxyhemoglobin (0.5-1.5) % POC ABG HHb (Measured) (0.0-5.0) % ABG Methemoglobin (0.0-3.0) % Alan Test A-a O2 Difference mm/Hg Respiratory Index Hgb O2 Saturation (95.0-98.0) % Liter Flow FiO2 % Sodium 141 (132-148) mmol/L Potassium 3.9 (3.6-5.2) mmol/L Chloride 103 (98-107) mmol/L Carbon Dioxide 29 (22-30) mmol/L Anion Gap 13 (10-20) BUN 14 (7-17) mg/dL Creatinine 0.7 (0.7-1.2) mg/dL Est GFR ( Amer) > 60 Est GFR (Non-Af Amer) > 60 POC Glucose (mg/dL) (65-110) mg/dL Random Glucose 158 H (65-105) mg/dL Calcium 8.5 L (8.6-10.4) mg/dl Phosphorus 3.0 (2.5-4.5) mg/dL Magnesium 1.8 (1.6-2.3) mg/dL Total Bilirubin 0.6 (0.2-1.3) mg/dL AST 25 (14-36) U/L ALT 33 (9-52) U/L Alkaline Phosphatase 65 (38-126) U/L Ammonia < 9 L (9-33) umol/L Total Protein 6.2 L (6.3-8.3) g/dL Albumin 3.4 L (3.5-5.0) g/dL Globulin 2.9 (2.2-3.9) gm/dL Albumin/Globulin Ratio 1.2 (1.0-2.1) Urine Color (YELLOW) Urine Clarity (Clear) Urine pH (5.0-8.0) Ur Specific [place] (1.003-1.030) Urine Protein (NEGATIVE) mg/dL Urine Glucose (UA) (Normal) mg/dL Urine Ketones (NEGATIVE) mg/dL Urine Blood (NEGATIVE) Urine Nitrate (NEGATIVE) Urine Bilirubin (NEGATIVE) Urine Urobilinogen (0.2-1.0) mg/dL Ur Leukocyte Esterase (Negative) Alonso/uL Urine WBC (Auto) (0-5) /hpf Urine RBC (Auto) (0-3) /hpf Ur Squamous Epith Cells (0-5) /hpf Valproic Acid 56.8 (50.0-100.0) ug/mL 10/20/17 10/20/17 10/20/17 Range/Units 20:05 16:24 15:36 WBC (4.8-10.8) K/uL RBC (3.80-5.20) Mil/uL Hgb (11.0-16.0) g/dL Hct (34.0-47.0) % MCV (81.0-99.0) fL MCH (27.0-31.0) pg MCHC (33.0-37.0) g/dL RDW (11.5-14.5) % Plt Count (130-400) K/uL MPV (7.2-11.7) fL Neut % (Auto) (50.0-75.0) % Lymph % (Auto) (20.0-40.0) % [place] % (Auto) (0.0-10.0) % Eos % (Auto) (0.0-4.0) % Baso % (Auto) (0.0-2.0) % Neut # (Auto) (1.8-7.0) K/uL Lymph # (Auto) (1.0-4.3) K/uL [place] # (Auto) (0.0-0.8) K/uL Eos # (Auto) (0.0-0.7) K/uL Baso # (Auto) (0.0-0.2) K/uL Puncture Site Rba pCO2 39 (35-45) mm/Hg pO2 91 (80-100) mm/Hg HCO3 29.0 H (21-28) mmol/L ABG pH 7.48 H (7.35-7.45) ABG Total CO2 30.2 H (22-28) mmol/L ABG O2 Saturation 98.7 H (95-98) % ABG Base Excess 5.2 H (-2.0-3.0) mmol/L ABG Hemoglobin 12.7 (11.7-17.4) g/dL ABG Carboxyhemoglobin 1.5 (0.5-1.5) % POC ABG HHb (Measured) 1.3 (0.0-5.0) % ABG Methemoglobin 0.8 (0.0-3.0) % Alan Test Na A-a O2 Difference 74.0 mm/Hg Respiratory Index 0.8 Hgb O2 Saturation 96.4 (95.0-98.0) % Liter Flow 3.0 FiO2 30.0 % Sodium (132-148) mmol/L Potassium (3.6-5.2) mmol/L Chloride (98-107) mmol/L Carbon Dioxide (22-30) mmol/L Anion Gap (10-20) BUN (7-17) mg/dL Creatinine (0.7-1.2) mg/dL Est GFR ( Amer) Est GFR (Non-Af Amer) POC Glucose (mg/dL) 190 H (65-110) mg/dL Random Glucose (65-105) mg/dL Calcium (8.6-10.4) mg/dl Phosphorus (2.5-4.5) mg/dL Magnesium (1.6-2.3) mg/dL Total Bilirubin (0.2-1.3) mg/dL AST (14-36) U/L ALT (9-52) U/L Alkaline Phosphatase (38-126) U/L Ammonia (9-33) umol/L Total Protein (6.3-8.3) g/dL Albumin (3.5-5.0) g/dL Globulin (2.2-3.9) gm/dL Albumin/Globulin Ratio (1.0-2.1) Urine Color Yellow (YELLOW) Urine Clarity Clear (Clear) Urine pH 7.0 (5.0-8.0) Ur Specific [place] 1.019 (1.003-1.030) Urine Protein Negative (NEGATIVE) mg/dL Urine Glucose (UA) 2+ H (Normal) mg/dL Urine Ketones Trace (NEGATIVE) mg/dL Urine Blood Negative (NEGATIVE) Urine Nitrate Negative (NEGATIVE) Urine Bilirubin Negative (NEGATIVE) Urine Urobilinogen Normal (0.2-1.0) mg/dL Ur Leukocyte Esterase Neg (Negative) Alonso/uL Urine WBC (Auto) 1 (0-5) /hpf Urine RBC (Auto) 1 (0-3) /hpf Ur Squamous Epith Cells < 1 (0-5) /hpf Valproic Acid (50.0-100.0) ug/mL 10/20/17 Range/Units 11:14 WBC (4.8-10.8) K/uL RBC (3.80-5.20) Mil/uL Hgb (11.0-16.0) g/dL Hct (34.0-47.0) % MCV (81.0-99.0) fL MCH (27.0-31.0) pg MCHC (33.0-37.0) g/dL RDW (11.5-14.5) % Plt Count (130-400) K/uL MPV (7.2-11.7) fL Neut % (Auto) (50.0-75.0) % Lymph % (Auto) (20.0-40.0) % [place] % (Auto) (0.0-10.0) % Eos % (Auto) (0.0-4.0) % Baso % (Auto) (0.0-2.0) % Neut # (Auto) (1.8-7.0) K/uL Lymph # (Auto) (1.0-4.3) K/uL [place] # (Auto) (0.0-0.8) K/uL Eos # (Auto) (0.0-0.7) K/uL Baso # (Auto) (0.0-0.2) K/uL Puncture Site pCO2 (35-45) mm/Hg pO2 (80-100) mm/Hg HCO3 (21-28) mmol/L ABG pH (7.35-7.45) ABG Total CO2 (22-28) mmol/L ABG O2 Saturation (95-98) % ABG Base Excess (-2.0-3.0) mmol/L ABG Hemoglobin (11.7-17.4) g/dL ABG Carboxyhemoglobin (0.5-1.5) % POC ABG HHb (Measured) (0.0-5.0) % ABG Methemoglobin (0.0-3.0) % Alan Test A-a O2 Difference mm/Hg Respiratory Index Hgb O2 Saturation (95.0-98.0) % Liter Flow FiO2 % Sodium (132-148) mmol/L Potassium (3.6-5.2) mmol/L Chloride (98-107) mmol/L Carbon Dioxide (22-30) mmol/L Anion Gap (10-20) BUN (7-17) mg/dL Creatinine (0.7-1.2) mg/dL Est GFR ( Amer) Est GFR (Non-Af Amer) POC Glucose (mg/dL) 241 H (65-110) mg/dL Random Glucose (65-105) mg/dL Calcium (8.6-10.4) mg/dl Phosphorus (2.5-4.5) mg/dL Magnesium (1.6-2.3) mg/dL Total Bilirubin (0.2-1.3) mg/dL AST (14-36) U/L ALT (9-52) U/L Alkaline Phosphatase (38-126) U/L Ammonia (9-33) umol/L Total Protein (6.3-8.3) g/dL Albumin (3.5-5.0) g/dL Globulin (2.2-3.9) gm/dL Albumin/Globulin Ratio (1.0-2.1) Urine Color (YELLOW) Urine Clarity (Clear) Urine pH (5.0-8.0) Ur Specific [place] (1.003-1.030) Urine Protein (NEGATIVE) mg/dL Urine Glucose (UA) (Normal) mg/dL Urine Ketones (NEGATIVE) mg/dL Urine Blood (NEGATIVE) Urine Nitrate (NEGATIVE) Urine Bilirubin (NEGATIVE) Urine Urobilinogen (0.2-1.0) mg/dL Ur Leukocyte Esterase (Negative) Alonso/uL Urine WBC (Auto) (0-5) /hpf Urine RBC (Auto) (0-3) /hpf Ur Squamous Epith Cells (0-5) /hpf Valproic Acid (50.0-100.0) ug/mL Laboratory Results - last 24 hr 10/20/17 10/20/17 10/20/17 11:14 15:36 16:24 WBC RBC Hgb Hct MCV MCH MCHC RDW Plt Count MPV Neut % (Auto) Lymph % (Auto) [place] % (Auto) Eos % (Auto) Baso % (Auto) Neut # (Auto) Lymph # (Auto) [place] # (Auto) Eos # (Auto) Baso # (Auto) Puncture Site pCO2 pO2 HCO3 ABG pH ABG Total CO2 ABG O2 Saturation ABG Base Excess ABG Hemoglobin ABG Carboxyhemoglobin POC ABG HHb (Measured) ABG Methemoglobin Alan Test A-a O2 Difference Respiratory Index Hgb O2 Saturation Liter Flow FiO2 Sodium Potassium Chloride Carbon Dioxide Anion Gap BUN Creatinine Est GFR ( Amer) Est GFR (Non-Af Amer) POC Glucose (mg/dL) 241 H 190 H Random Glucose Calcium Phosphorus Magnesium Total Bilirubin AST ALT Alkaline Phosphatase Ammonia Total Protein Albumin Globulin Albumin/Globulin Ratio Urine Color Yellow Urine Clarity Clear Urine pH 7.0 Ur Specific [place] 1.019 Urine Protein Negative Urine Glucose (UA) 2+ H Urine Ketones Trace Urine Blood Negative Urine Nitrate Negative Urine Bilirubin Negative Urine Urobilinogen Normal Ur Leukocyte Esterase Neg Urine WBC (Auto) 1 Urine RBC (Auto) 1 Ur Squamous Epith Cells < 1 Valproic Acid 10/20/17 10/20/17 10/20/17 20:05 20:24 20:24 WBC RBC Hgb Hct MCV MCH MCHC RDW Plt Count MPV Neut % (Auto) Lymph % (Auto) [place] % (Auto) Eos % (Auto) Baso % (Auto) Neut # (Auto) Lymph # (Auto) [place] # (Auto) Eos # (Auto) Baso # (Auto) Puncture Site Rba pCO2 39 pO2 91 HCO3 29.0 H ABG pH 7.48 H ABG Total CO2 30.2 H ABG O2 Saturation 98.7 H ABG Base Excess 5.2 H ABG Hemoglobin 12.7 ABG Carboxyhemoglobin 1.5 POC ABG HHb (Measured) 1.3 ABG Methemoglobin 0.8 Alan Test Na A-a O2 Difference 74.0 Respiratory Index 0.8 Hgb O2 Saturation 96.4 Liter Flow 3.0 FiO2 30.0 Sodium 141 Potassium 3.9 Chloride 103 Carbon Dioxide 29 Anion Gap 13 BUN 14 Creatinine 0.7 Est GFR ( Amer) > 60 Est GFR (Non-Af Amer) > 60 POC Glucose (mg/dL) Random Glucose 158 H Calcium 8.5 L Phosphorus 3.0 Magnesium 1.8 Total Bilirubin 0.6 AST 25 ALT 33 Alkaline Phosphatase 65 Ammonia < 9 L Total Protein 6.2 L Albumin 3.4 L Globulin 2.9 Albumin/Globulin Ratio 1.2 Urine Color Urine Clarity Urine pH Ur Specific [place] Urine Protein Urine Glucose (UA) Urine Ketones Urine Blood Urine Nitrate Urine Bilirubin Urine Urobilinogen Ur Leukocyte Esterase Urine WBC (Auto) Urine RBC (Auto) Ur Squamous Epith Cells Valproic Acid 10/20/17 10/20/17 10/20/17 20:24 21:11 23:48 WBC RBC Hgb Hct MCV MCH MCHC RDW Plt Count MPV Neut % (Auto) Lymph % (Auto) [place] % (Auto) Eos % (Auto) Baso % (Auto) Neut # (Auto) Lymph # (Auto) [place] # (Auto) Eos # (Auto) Baso # (Auto) Puncture Site pCO2 pO2 HCO3 ABG pH ABG Total CO2 ABG O2 Saturation ABG Base Excess ABG Hemoglobin ABG Carboxyhemoglobin POC ABG HHb (Measured) ABG Methemoglobin Alan Test A-a O2 Difference Respiratory Index Hgb O2 Saturation Liter Flow FiO2 Sodium Potassium Chloride Carbon Dioxide Anion Gap BUN Creatinine Est GFR ( Amer) Est GFR (Non-Af Amer) POC Glucose (mg/dL) 168 H 152 H Random Glucose Calcium Phosphorus Magnesium Total Bilirubin AST ALT Alkaline Phosphatase Ammonia Total Protein Albumin Globulin Albumin/Globulin Ratio Urine Color Urine Clarity Urine pH Ur Specific [place] Urine Protein Urine Glucose (UA) Urine Ketones Urine Blood Urine Nitrate Urine Bilirubin Urine Urobilinogen Ur Leukocyte Esterase Urine WBC (Auto) Urine RBC (Auto) Ur Squamous Epith Cells Valproic Acid 56.8 10/21/17 10/21/17 10/21/17 05:33 05:36 06:13 WBC 5.6 RBC 3.84 Hgb 11.2 Hct 33.4 L MCV 86.9 MCH 29.1 MCHC 33.5 RDW 14.7 H Plt Count 180 MPV 8.4 Neut % (Auto) 54.4 Lymph % (Auto) 32.5 Chase % (Auto) 10.4 H Eos % (Auto) 2.0 Baso % (Auto) 0.7 Neut # (Auto) 3.1 Lymph # (Auto) 1.8 [place] # (Auto) 0.6 Eos # (Auto) 0.1 Baso # (Auto) 0.0 Puncture Site pCO2 pO2 HCO3 ABG pH ABG Total CO2 ABG O2 Saturation ABG Base Excess ABG Hemoglobin ABG Carboxyhemoglobin POC ABG HHb (Measured) ABG Methemoglobin Alan Test A-a O2 Difference Respiratory Index Hgb O2 Saturation Liter Flow FiO2 Sodium Potassium Chloride Carbon Dioxide Anion Gap BUN Creatinine Est GFR ( Amer) Est GFR (Non-Af Amer) POC Glucose (mg/dL) 20 L* 139 H Random Glucose Calcium Phosphorus Magnesium Total Bilirubin AST ALT Alkaline Phosphatase Ammonia Total Protein Albumin Globulin Albumin/Globulin Ratio Urine Color Urine Clarity Urine pH Ur Specific [place] Urine Protein Urine Glucose (UA) Urine Ketones Urine Blood Urine Nitrate Urine Bilirubin Urine Urobilinogen Ur Leukocyte Esterase Urine WBC (Auto) Urine RBC (Auto) Ur Squamous Epith Cells Valproic Acid 10/21/17 06:13 WBC RBC Hgb Hct MCV MCH MCHC RDW Plt Count MPV Neut % (Auto) Lymph % (Auto) [place] % (Auto) Eos % (Auto) Baso % (Auto) Neut # (Auto) Lymph # (Auto) [place] # (Auto) Eos # (Auto) Baso # (Auto) Puncture Site pCO2 pO2 HCO3 ABG pH ABG Total CO2 ABG O2 Saturation ABG Base Excess ABG Hemoglobin ABG Carboxyhemoglobin POC ABG HHb (Measured) ABG Methemoglobin Alan Test A-a O2 Difference Respiratory Index Hgb O2 Saturation Liter Flow FiO2 Sodium 141 Potassium 3.7 Chloride 105 Carbon Dioxide 30 Anion Gap 10 BUN 14 Creatinine 0.7 Est GFR ( Amer) > 60 Est GFR (Non-Af Amer) > 60 POC Glucose (mg/dL) Random Glucose 130 H Calcium 8.0 L Phosphorus 3.0 Magnesium 1.8 Total Bilirubin 0.6 AST 24 ALT 28 Alkaline Phosphatase 50 Ammonia Total Protein 5.4 L Albumin 2.9 L Globulin 2.5 Albumin/Globulin Ratio 1.1 Urine Color Urine Clarity Urine pH Ur Specific [place] Urine Protein Urine Glucose (UA) Urine Ketones Urine Blood Urine Nitrate Urine Bilirubin Urine Urobilinogen Ur Leukocyte Esterase Urine WBC (Auto) Urine RBC (Auto) Ur Squamous Epith Cells Valproic Acid Critical Care Progress Note - Nutrition Nutrition: Nutrition Category Date Time Status NPO Diet [DIET] Diets 10/20/17 Dinner Active Assessment/Plan - Assessment and Plan (Free Text) Plan: Patient seen and examined at bedside. PAtient more responsive. blinks, moves upper extremitites to noxious stimuli. AMS: suspect post ventriculostomy, monitor output, repeat ct head reveals EVD not in ventricle, neurosurgery input- appreciated -keep MAP ~100, ICP 10: CPP >70 -continue IV NS, osmol 305, will increase NA near 145 -keep HOB >30 -continue empriical valproic acid , level theraputic (ammonia low) -empirically on abx, f/u vanco level -start ng tube feeds, ISS aspart -endtidal CO2 monitoring -dvt ppx SCDs heparin SQ when neurosurgery ascertained hemostasis -PUD ppx protonix -supplemental MVI/thiamine/folate/b12/vitamin C Patient's mental status did not improve - Date & Time Date: 10/21/17 Time: 11:11
--- NOTE | 2017-10-21 09:53 | CT ---
PROCEDURE: CT HEAD WITHOUT CONTRAST. HISTORY: evaulate ventricles COMPARISON: 10/20/2017 TECHNIQUE: Axial computed tomography images were obtained through the head/brain without intravenous contrast. Radiation dose: Total exam DLP = 992.17 mGy-cm. This CT exam was performed using one or more of the following dose reduction techniques: Automated exposure control, adjustment of the mA and/or kV according to patient size, and/or use of iterative reconstruction technique. FINDINGS: HEMORRHAGE: No intracranial hemorrhage. BRAIN: No mass effect or edema. No evidence of acute infarct. VENTRICLES: Marked ventriculomegaly involving lateral and 3rd ventricles. Likely obstructive hydrocephalus. Transependymal resorption of CSF with low attenuation surrounding the lateral ventricles particularly about the atria and frontal horns. There is air within the lateral ventricles, not evident previously. A right frontal ventriculostomy catheter has been repositioned study its tip abuts the lateral margin of the frontal horn, right lateral ventricle. It does not clearly extend into the ventricle. CALVARIUM: Right frontal sarina hole for ventriculostomy catheter. PARANASAL SINUSES: Unremarkable as visualized. No significant inflammatory changes. MASTOID AIR CELLS: Unremarkable as visualized. No inflammatory changes. OTHER FINDINGS: None. IMPRESSION: Repositioning of right frontal ventriculostomy catheter. The catheter no longer clearly extends into the ventricles. 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
[2017-10-21] MEDS: Insulin Detemir 100 units/ml Vial (Levemir) SC SCH ×2 (10:00→21:54)
[2017-10-21] MEDS: Vancomycin 1 GM in Sodium Chloride 0.9% 200 ML IVPB SCH ×2 (10:23→21:54)
[2017-10-21] MEDS: Sodium Chloride 0.9% 1,000 ML IV SCH ×2 (10:23→22:01)
[2017-10-21] MEDS ORDERED: (Novolog) Insulin Aspart, Recombinant 100 u/ml 10 ml vial SC SCH (11:15)
--- NOTE | 2017-10-21 11:34 | CP.PCM.PN ---
Subjective - Date & Time of Evaluation Date of Evaluation: 10/21/17 Time of Evaluation: 11:30 - Subjective Subjective: Patient was seen and examined by me. She remains nonverbal and non-responsive to stimuli Family members faithfully present at bedside. The patient earlier in the morning had a repeat CT scan of the head. Objective - Vital Signs/Intake and Output Vital Signs (last 24 hours): Temp Pulse Resp BP Pulse Ox 99.7 F H 73 12 106/63 100 10/21/17 04:00 10/21/17 07:00 10/21/17 06:42 10/21/17 06:42 10/21/17 07:00 Intake and Output: 10/21/17 10/21/17 06:59 18:59 Intake Total 950 75 Output Total 860 2 Balance 90 73 - Medications Medications: Current Medications Ascorbic Acid (Vitamin C 500 Mg Tab) 500 mg PO DAILY MOLLY Cyanocobalamin (Vitamin B12 1000 Mcg Tab) 1,000 mcg PO DAILY MOLLY Dextrose (Dextrose 50% Inj) 0 ml IV STAT PRN; Protocol PRN Reason: Hypoglycemia Protocol Dextrose (Glutose 15) 0 gm PO ONCE PRN; Protocol PRN Reason: Hypoglycemia Protocol Glucagon (Glucagen Diagnostic Kit) 0 mg IM STAT PRN; Protocol PRN Reason: Hypoglycemia Protocol Valproate Sodium 500 mg/ (Sodium Chloride) 105 mls @ 100 mls/hr IVPB Q12H [facility] Last Admin: 10/21/17 01:00 Dose: 100 mls/hr Vancomycin HCl 1 gm/ Sodium (Chloride) 200 mls @ 133.333 mls/hr IVPB Q12 [facility] PRN Reason: Protocol Last Admin: 10/21/17 10:23 Dose: 133.333 mls/hr Meropenem 1 gm/ Sodium (Chloride) 100 mls @ 100 mls/hr IVPB Q8 [facility] PRN Reason: Protocol Last Admin: 10/21/17 05:00 Dose: 100 mls/hr Sodium Chloride (Sodium Chloride 0.9%) 1,000 mls @ 75 mls/hr IV .[id number] [facility] Last Admin: 10/21/17 10:23 Dose: 75 mls/hr Insulin Aspart (Novolog) 0 unit SC Q6H [facility] PRN Reason: Protocol Insulin Detemir (Levemir) 15 unit SC Q12 [facility] Last Admin: 10/21/17 10:00 Dose: Not Given Latanoprost (Xalatan Opht) 0 ml OU HS MOLLY Last Admin: 10/20/17 22:15 Dose: 2.5 ml Multivitamins/Vitamin C (Multi-Delyn Liquid) 5 ml PO DAILY MOLLY Pantoprazole Sodium (Protonix Inj) 40 mg IVP Q12H MOLLY Last Admin: 10/21/17 05:42 Dose: 40 mg Thiamine HCl (Vitamin B1 Tab) 100 mg PO BID MOLLY - Labs Labs: 10/21/17 06:13 10/21/17 06:13 PT 10.9 SECONDS (9.7-12.2) 10/09/17 11:37 INR 1.0 10/09/17 11:37 APTT 26 SECONDS (21-34) 10/03/17 10:30 - Constitutional Appears: Chronically Ill - Head Exam Additional comments: S/P revision of MANAGER STARS shunt Currently has ventriculostomy at this time. - Eye Exam Eye Exam: absent: EOMI - ENT Exam ENT Exam: Mucous Membranes Moist - Respiratory Exam Respiratory Exam: Decreased Breath Sounds, Clear to Ausculation Bilateral - Cardiovascular Exam Cardiovascular Exam: REGULAR RHYTHM - GI/Abdominal Exam GI & Abdominal Exam: Soft. absent: Guarding, Rigid, Tenderness - Neurological Exam Neurological Exam: absent: Alert, Awake - Skin Skin Exam: Normal Color, Warm Assessment and Plan - Assessment and Plan (Free Text) Assessment: MANAGER STARS shunt malfunction and change in mental status 10/21: Repeat CT scan of the showing "Repositioning of right frontal ventriculostomy catheter. The catheter no longer clearly extends into the ventricles. Persistent ventriculomegaly with transependymal resorption of CSF, likely reflecting obstructive hydrocephalus" Currently the CSF, blood, urine cultures have been negative. Currently on IV meropenom as well as IV Vancomcin. WBC stable, currently afebrile 10/20: Patient moved to the ICU last night after CT scan was not improving. At bedside this morning had ventriculostomy connected. 10/19: S/P MANAGER STARS shunt revision today. patient is responding to pain but still not able to be awoken. Head CT 10/18/17: Worsening hydrocephalus despite right transfrontal ventriculostomy catheter. 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 MANAGER STARS Shunt repair 02/26 -Neurosurgery Dr Hancock/Ella is consulted * s/p MANAGER STARS shunt revision - 3rd this hospital stay (10/10/2017, 10/11/2017 and 2017) -Neurology consulted, Dr. Nixon -Neurology, Dr. Mota is consulted CSF culture: no growth to date 10/10/17 Cultures are negative and patient is improving and off antibiotics -continue valproate 500mg IVPB q12h for seizure prophylaxis Altered Mental Status 10/20: As mentioned previously, currently non verbal and non responsive. Hopefully will see some improvment. Diabetes Accuchecks ACHS Medium Dose insulin sliding scale Levemir dose of 15 units BID - Held due to patient's decrease in mental status and is unable to eat any food. Will hold home metformin for now Hypoglycemia protocol HLD Crestor 5 mg po hs Asthma Will continue to monitor saturation Hypertension Amlodipine 5mg PO daily Metoprolol Tart 12.5mg PO BID Prophylactic measure Heparin 5,000units SC q8h SCDs Protonix 40mg PO daily
[2017-10-21] MEDS: Multiple Vitamins Oral Solution PO SCH (13:53)
[2017-10-21] MEDS: (Novolin R) Insulin Human Regular 100 units/ml vial SC SCH ×2 (13:57)
[2017-10-21] MEDS: (Novolog) Insulin Aspart, Recombinant 100 u/ml 10 ml vial SC SCH (18:05)
[2017-10-21] MEDS: Latanoprost 2.5 ml Opht Soln OU SCH (21:54)
[2017-10-22] MEDS: Valproate 500 MG in Sodium Chloride 0.9% 100 ML IVPB SCH ×2 (01:35→13:29)
[2017-10-22] MEDS: (Novolog) Insulin Aspart, Recombinant 100 u/ml 10 ml vial SC SCH ×5 (05:05→23:50)
[2017-10-22] MEDS: Meropenem 1 GM in Sodium Chloride 0.9% 100 ML IVPB SCH ×3 (05:06→21:18)
[2017-10-22 06:22] LABS: BASO # 0.1 K/uL (0.0-0.2); BASO % 0.7 % (0.0-2.0); EOS # 0.1 K/uL (0.0-0.7); EOS % 1.9 % (0.0-4.0); HEMOGLOBIN 11.6 g/dL (11.0-16.0); LYMPH % 28.5 % (20.0-40.0); MEAN CELL VOLUME 86.6 fL (81.0-99.0); MEAN CORPUSCULAR HEMOGLOBIN 29.5 pg (27.0-31.0); MEAN CORPUSCULAR HGB CONC 34.1 g/dL (33.0-37.0); MEAN PLATELET VOLUME 8.3 fL (7.2-11.7); MONO # 0.7 K/uL (0.0-0.8); MONO % 9.6 % (0.0-10.0); NEUT # 4.2 K/uL (1.8-7.0); NEUT % 59.3 % (50.0-75.0); NRBC % 0.1 % (0.0-2.0); RBC 3.92 Mil/uL (3.80-5.20); RED CELL DISTRIBUTION WIDTH 14.5 % (11.5-14.5)
[2017-10-22 06:46] LABS: ALB/GLOB RATIO 1.1 (1.0-2.1); ALBUMIN 3.1 g/dL (3.5-5.0); ALT/SGPT 38 U/L (9-52); AST/SGOT 29 U/L (14-36); BLOOD UREA NITROGEN 15 mg/dL (7-17); GFR AFRICAN-AMERICAN > 60; GFR NON-AFRICAN AMERICAN > 60
--- NOTE | 2017-10-22 08:57 | CP.PCM.PN ---
Subjective - Date & Time of Evaluation Date of Evaluation: 10/22/17 Time of Evaluation: 08:57 - Subjective Subjective: Ms. Diaz was seen and examined at the bedside in ICU. She is lethargic, pupils sluggish with 3 mm size bilaterally. She withdraws from noxious stimuli with minimal movement of the bilateral upper extremities, GCS-4. She is currently with an EVD drain, draining approximately 10 ml /hr with clear fluid and ICP 11-12. 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 Repeat CT scan of the head done 2017 showed "Repositioning of right frontal ventriculostomy catheter. The catheter no longer clearly extends into the ventricles. Persistent ventriculomegaly with transependymal resorption of CSF, likely reflecting obstructive hydrocephalus" The EVD catherter was repositioned yesterday. There was no untoward events overnight. Objective - Vital Signs/Intake and Output Vital Signs (last 24 hours): Temp Pulse Resp BP Pulse Ox 99.1 F 78 11 L 118/58 L 94 L 10/22/17 08:00 10/22/17 08:12 10/21/17 20:00 10/22/17 08:12 10/22/17 08:12 Intake and Output: 10/22/17 10/22/17 06:59 18:59 Intake Total 1405 170 Output Total 646 172 Balance 759 -2 - Medications Medications: Current Medications Ascorbic Acid (Vitamin C 500 Mg Tab) 500 mg PO DAILY [facility] Last Admin: 10/21/17 13:53 Dose: 500 mg Cyanocobalamin (Vitamin B12 1000 Mcg Tab) 1,000 mcg PO DAILY [facility] Last Admin: 10/21/17 13:53 Dose: 1,000 mcg Dextrose (Dextrose 50% Inj) 0 ml IV STAT PRN; Protocol PRN Reason: Hypoglycemia Protocol Dextrose (Glutose 15) 0 gm PO ONCE PRN; Protocol PRN Reason: Hypoglycemia Protocol Glucagon (Glucagen Diagnostic Kit) 0 mg IM STAT PRN; Protocol PRN Reason: Hypoglycemia Protocol Valproate Sodium 500 mg/ (Sodium Chloride) 105 mls @ 100 mls/hr IVPB Q12H [facility] Last Admin: 10/22/17 01:35 Dose: 100 mls/hr Vancomycin HCl 1 gm/ Sodium (Chloride) 200 mls @ 133.333 mls/hr IVPB Q12 [facility] PRN Reason: Protocol Last Admin: 10/21/17 21:54 Dose: 133.333 mls/hr Meropenem 1 gm/ Sodium (Chloride) 100 mls @ 100 mls/hr IVPB Q8 [facility] PRN Reason: Protocol Last Admin: 10/22/17 05:06 Dose: 100 mls/hr Sodium Chloride (Sodium Chloride 0.9%) 1,000 mls @ 75 mls/hr IV .[id number] [facility] Last Admin: 10/21/17 22:01 Dose: Not Given Potassium Chloride (Potassium Chloride 20 Meq/100 Ml) 20 meq in 100 mls @ 50 mls/hr IVPB ONCE ONE Stop: 10/22/17 09:41 Insulin Aspart (Novolog) 0 unit SC Q6H [facility] PRN Reason: Protocol Last Admin: 10/22/17 05:05 Dose: 2 units Insulin Detemir (Levemir) 15 unit SC Q12 [facility] Last Admin: 10/21/17 21:54 Dose: 15 units Latanoprost (Xalatan Opht) 0 ml OU HS [facility] Last Admin: 10/21/17 21:54 Dose: 2.5 ml Multivitamins/Vitamin C (Multi-Delyn Liquid) 5 ml PO DAILY [facility] Last Admin: 10/21/17 13:53 Dose: 5 ml Pantoprazole Sodium (Protonix Inj) 40 mg IVP Q12H [facility] Last Admin: 10/22/17 05:05 Dose: 40 mg Thiamine HCl (Vitamin B1 Tab) 100 mg PO BID [facility] Last Admin: 10/21/17 19:38 Dose: 100 mg - Labs Labs: 10/22/17 06:15 10/22/17 06:15 PT 10.9 SECONDS (9.7-12.2) 10/09/17 11:37 INR 1.0 10/09/17 11:37 APTT 26 SECONDS (21-34) 10/03/17 10:30 - Constitutional Appears: No Acute Distress - Eye Exam Pupil Exam: Miosis Additional comments: 3 mm sluggish - Neurological Exam Neuro motor strength exam: Left Upper Extremity: 0, Right Upper Extremity: 0, Left Lower Extremity: 0, Right Lower Extremity: 0 Additional comments: GCS- 4T Assessment and Plan (1) Mental status change Assessment & Plan: Case discussed with Dr. Nixon, continue all current medical regimen, Recommend neurosurgery input, follow neurosurgery orders, normotension, normothermic, glycemic control, and keep head of bed elevated at least 40 degrees. Status: Acute
[2017-10-22] MEDS: Insulin Detemir 100 units/ml Vial (Levemir) SC SCH ×2 (09:06→21:09)
[2017-10-22] MEDS: Multiple Vitamins Oral Solution PO SCH (09:07)
[2017-10-22] MEDS: Vancomycin 1 GM in Sodium Chloride 0.9% 200 ML IVPB SCH ×2 (10:09→21:18)
--- NOTE | 2017-10-22 10:21 | CP.PCM.PN ---
Subjective - Date & Time of Evaluation Date of Evaluation: 10/22/17 Time of Evaluation: 10:15 - Subjective Subjective: EVD functioning well - 10 -12 cc/hr clear CSF ICP = 9 good waveform Eyes open min grunting to stim withdraws all ext plan for revising VPS in AM Objective - Vital Signs/Intake and Output Vital Signs (last 24 hours): Temp Pulse Resp BP Pulse Ox 99.1 F 78 11 L 118/58 L 94 L 10/22/17 08:00 10/22/17 08:12 10/21/17 20:00 10/22/17 08:12 10/22/17 08:12 Intake and Output: 10/22/17 10/22/17 06:59 18:59 Intake Total 1405 170 Output Total 646 172 Balance 759 -2 - Medications Medications: Current Medications Ascorbic Acid (Vitamin C 500 Mg Tab) 500 mg PO DAILY [facility] Last Admin: 10/22/17 09:06 Dose: 500 mg Cyanocobalamin (Vitamin B12 1000 Mcg Tab) 1,000 mcg PO DAILY [facility] Last Admin: 10/22/17 09:06 Dose: 1,000 mcg Dextrose (Dextrose 50% Inj) 0 ml IV STAT PRN; Protocol PRN Reason: Hypoglycemia Protocol Dextrose (Glutose 15) 0 gm PO ONCE PRN; Protocol PRN Reason: Hypoglycemia Protocol Glucagon (Glucagen Diagnostic Kit) 0 mg IM STAT PRN; Protocol PRN Reason: Hypoglycemia Protocol Valproate Sodium 500 mg/ (Sodium Chloride) 105 mls @ 100 mls/hr IVPB Q12H [facility] Last Admin: 10/22/17 01:35 Dose: 100 mls/hr Vancomycin HCl 1 gm/ Sodium (Chloride) 200 mls @ 133.333 mls/hr IVPB Q12 [facility] PRN Reason: Protocol Last Admin: 10/22/17 10:09 Dose: 133.333 mls/hr Meropenem 1 gm/ Sodium (Chloride) 100 mls @ 100 mls/hr IVPB Q8 [facility] PRN Reason: Protocol Last Admin: 10/22/17 05:06 Dose: 100 mls/hr Sodium Chloride (Sodium Chloride 0.9%) 1,000 mls @ 75 mls/hr IV .[id number] [facility] Last Admin: 10/21/17 22:01 Dose: Not Given Insulin Aspart (Novolog) 0 unit SC Q6H [facility] PRN Reason: Protocol Last Admin: 10/22/17 05:05 Dose: 2 units Insulin Detemir (Levemir) 15 unit SC Q12 [facility] Last Admin: 10/22/17 09:06 Dose: 15 units Latanoprost (Xalatan Opht) 0 ml OU HS [facility] Last Admin: 10/21/17 21:54 Dose: 2.5 ml Multivitamins/Vitamin C (Multi-Delyn Liquid) 5 ml PO DAILY [facility] Last Admin: 10/22/17 09:07 Dose: 5 ml Pantoprazole Sodium (Protonix Inj) 40 mg IVP Q12H [facility] Last Admin: 10/22/17 05:05 Dose: 40 mg Thiamine HCl (Vitamin B1 Tab) 100 mg PO BID [facility] Last Admin: 10/22/17 09:06 Dose: 100 mg - Labs Labs: 10/22/17 06:15 10/22/17 06:15 PT 10.9 SECONDS (9.7-12.2) 10/09/17 11:37 INR 1.0 10/09/17 11:37 APTT 26 SECONDS (21-34) 10/03/17 10:30
--- NOTE | 2017-10-22 10:41 | CP.PCM.PN ---
Subjective - Date & Time of Evaluation Date of Evaluation: 10/22/17 Time of Evaluation: 10:30 - Subjective Subjective: Patient seen and examined. She does respond to some heavy stimuli. Also blinks her eyes when I wave my hand close to face. Otherwise nonverbal Patient will be going to OR tomorrow. Family members at bedside, we had discussion Objective - Vital Signs/Intake and Output Vital Signs (last 24 hours): Temp Pulse Resp BP Pulse Ox 99.1 F 87 11 L 139/57 L 97 10/22/17 08:00 10/22/17 10:11 10/21/17 20:00 10/22/17 10:11 10/22/17 10:11 Intake and Output: 10/22/17 10/22/17 06:59 18:59 Intake Total 1405 440 Output Total 646 301 Balance 759 139 - Medications Medications: Current Medications Ascorbic Acid (Vitamin C 500 Mg Tab) 500 mg PO DAILY [facility] Last Admin: 10/22/17 09:06 Dose: 500 mg Cyanocobalamin (Vitamin B12 1000 Mcg Tab) 1,000 mcg PO DAILY [facility] Last Admin: 10/22/17 09:06 Dose: 1,000 mcg Dextrose (Dextrose 50% Inj) 0 ml IV STAT PRN; Protocol PRN Reason: Hypoglycemia Protocol Dextrose (Glutose 15) 0 gm PO ONCE PRN; Protocol PRN Reason: Hypoglycemia Protocol Glucagon (Glucagen Diagnostic Kit) 0 mg IM STAT PRN; Protocol PRN Reason: Hypoglycemia Protocol Valproate Sodium 500 mg/ (Sodium Chloride) 105 mls @ 100 mls/hr IVPB Q12H [facility] Last Admin: 10/22/17 01:35 Dose: 100 mls/hr Vancomycin HCl 1 gm/ Sodium (Chloride) 200 mls @ 133.333 mls/hr IVPB Q12 [facility] PRN Reason: Protocol Last Admin: 10/22/17 10:09 Dose: 133.333 mls/hr Meropenem 1 gm/ Sodium (Chloride) 100 mls @ 100 mls/hr IVPB Q8 [facility] PRN Reason: Protocol Last Admin: 10/22/17 05:06 Dose: 100 mls/hr Sodium Chloride (Sodium Chloride 0.9%) 1,000 mls @ 75 mls/hr IV .[id number] [facility] Last Admin: 10/21/17 22:01 Dose: Not Given Insulin Aspart (Novolog) 0 unit SC Q6H [facility] PRN Reason: Protocol Last Admin: 10/22/17 05:05 Dose: 2 units Insulin Detemir (Levemir) 15 unit SC Q12 [facility] Last Admin: 10/22/17 09:06 Dose: 15 units Latanoprost (Xalatan Opht) 0 ml OU HS [facility] Last Admin: 10/21/17 21:54 Dose: 2.5 ml Multivitamins/Vitamin C (Multi-Delyn Liquid) 5 ml PO DAILY [facility] Last Admin: 10/22/17 09:07 Dose: 5 ml Pantoprazole Sodium (Protonix Inj) 40 mg IVP Q12H [facility] Last Admin: 10/22/17 05:05 Dose: 40 mg Thiamine HCl (Vitamin B1 Tab) 100 mg PO BID [facility] Last Admin: 10/22/17 09:06 Dose: 100 mg - Labs Labs: 10/22/17 06:15 10/22/17 06:15 PT 10.9 SECONDS (9.7-12.2) 10/09/17 11:37 INR 1.0 10/09/17 11:37 APTT 26 SECONDS (21-34) 10/03/17 10:30 - Constitutional Appears: Chronically Ill - Head Exam Additional comments: Patient has ventriculostomy/drain at bedside - ENT Exam ENT Exam: Mucous Membranes Moist - Neck Exam Additional comments: Central line clean and intact - Respiratory Exam Respiratory Exam: Clear to Ausculation Bilateral, NORMAL BREATHING PATTERN - Cardiovascular Exam Cardiovascular Exam: REGULAR RHYTHM - Skin Skin Exam: Pallor, Warm Assessment and Plan - Assessment and Plan (Free Text) Assessment: FREIGHT CONDUCTOR shunt malfunction and change in mental status 10/22: Going to OR again tomorrow. 10/21: Repeat CT scan of the showing "Repositioning of right frontal ventriculostomy catheter. The catheter no longer clearly extends into the ventricles. Persistent ventriculomegaly with transependymal resorption of CSF, likely reflecting obstructive hydrocephalus" Currently the CSF, blood, urine cultures have been negative. Currently on IV meropenom as well as IV Vancomcin. WBC stable, currently afebrile 10/20: Patient moved to the ICU last night after CT scan was not improving. At bedside this morning had ventriculostomy connected. 10/19: S/P F[employer]IGHT CONDU[employer] shunt revision today. patient is responding to pain but still not able to be awoken. Head CT 10/18/17: Worsening hydrocephalus despite right transfrontal ventriculostomy catheter. 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 FREIGHT CONDU[employer] Shunt repair 02/26 -Neurosurgery Dr Hancock/Ella is consulted * s/p FREIGHT CONDU[employer] shunt revision - 3rd this hospital stay (10/10/2017, 10/11/2017 and 2017) -Neurology consulted, Dr. Nixon -Neurology, Dr. Mota is consulted CSF culture: no growth to date 10/10/17 Cultures are negative and patient is improving and off antibiotics -continue valproate 500mg IVPB q12h for seizure prophylaxis Altered Mental Status 10/22: Patient is able to blink to stimuli. Otherwise currently non verbal 10/20: As mentioned previously, currently non verbal and non responsive. Hopefully will see some improvment. Diabetes Accuchecks ACHS Medium Dose insulin sliding scale Levemir dose of 15 units BID - Held due to patient's decrease in mental status and is unable to eat any food. Will hold home metformin for now Hypoglycemia protocol HLD Crestor 5 mg po hs Asthma Will continue to monitor saturation Hypertension Amlodipine 5mg PO daily Metoprolol Tart 12.5mg PO BID Prophylactic measure Heparin 5,000units SC q8h [facility] Protonix 40mg PO daily
[2017-10-22] MEDS: Sodium Chloride 0.9% 1,000 ML IV SCH (12:00)
--- NOTE | 2017-10-22 18:15 | CP.CCUPN ---
CCU Subjective - Physician Review Events Since Last Encounter (Free Text): 10/22/17 18:14 ventriculostomy drainage noted Patient is responding only for deep syDeep stimuli Breathing well airway maintaining CCU Objective - Vital Signs / Intake & Output Vital Signs (Last 4 hours): Vital Signs Temp Pulse BP Pulse Ox 10/22/17 17:11 85 159/70 H 97 10/22/17 16:42 73 162/66 H 97 10/22/17 16:00 99.0 F 97 10/22/17 15:41 83 157/72 H 97 10/22/17 15:12 85 159/75 H 95 10/22/17 14:42 89 143/74 97 Intake and Output (Last 8hrs): Intake & Output 10/22/17 10/22/17 10/22/17 06:59 14:59 22:59 Intake Total 885 905 355 Output Total 440 602 213 Balance 445 303 142 Weight 206 lb 14.4 oz Intake: Intake, IV Amount 650 625 250 Left Medial Port Internal 650 625 250 Jugular Tube Feeding 235 280 105 Output: Drainage 50 162 38 Ventriculostomy 50 162 38 Urine 390 440 175 Urethral (Fernandez) 390 440 175 - Physical Exam Narrative Physical Exam (Free Text): 10/22/17 18:14 chest good air entry Regular heart sound Abdominal tenderness negative Head: Positive for: Normocephalic Pupils: Positive for: PERRL Extroacular Muscles: Positive for: EOMI Mouth: Positive for: Dry, Other (NGT in place ) Respiratory/Chest: Positive for: Clear to Auscultation. Negative for: Respiratory Distress Cardiovascular: Positive for: Regular Rate and Rhythm Abdomen: Positive for: Normal Bowel Sounds. Negative for: Tenderness, Distention Upper Extremity: Positive for: Normal Inspection, NORMAL PULSES, Neurovascularly Intact, Capillary Refill < 2s Lower Extremity: Positive for: Normal Inspection, NORMAL PULSES, Neurovascularly Intact, Capillary Refill < 2 s Neurological: Positive for: Other (Unable to full assese, Pt Lethargic, Only responding to pain) Skin: Positive for: Warm, Dry, Normal Color Psychiatric: Positive for: Other (Lethargic). Negative for: Alert, Oriented x 3 - Medications Active Medications: Active Medications Generic Name Dose Route Start Last Admin Trade Name Freq PRN Reason Stop Dose Admin Ascorbic Acid 500 mg 10/21/17 12:00 10/22/17 09:06 Vitamin C 500 Mg Tab PO 500 mg DAILY [facility] Administration Cyanocobalamin 1,000 mcg 10/21/17 12:00 10/22/17 09:06 Vitamin B12 1000 Mcg Tab PO 1,000 mcg DAILY [facility] Administration Dextrose 0 ml 10/03/17 13:28 Dextrose 50% Inj IV STAT PRN Hypoglycemia Protocol Protocol Dextrose 0 gm 10/03/17 13:28 Glutose 15 PO ONCE PRN Hypoglycemia Protocol Protocol Glucagon 0 mg 10/03/17 13:28 Glucagen Diagnostic Kit IM STAT PRN Hypoglycemia Protocol Protocol Valproate Sodium 500 mg/ 105 mls @ 100 mls/hr 10/11/17 14:03 10/22/17 13:29 Sodium Chloride IVPB 100 mls/hr Q12H [facility] Administration Vancomycin HCl 1 gm/ Sodium 200 mls @ 133.333 mls/hr 10/20/17 22:00 10/22/17 10:09 Chloride IVPB 133.333 mls/hr Q12 [facility] Administration Protocol Meropenem 1 gm/ Sodium 100 mls @ 100 mls/hr 10/20/17 22:00 10/22/17 13:30 Chloride IVPB 100 mls/hr Q8 [facility] Administration Protocol Sodium Chloride 1,000 mls @ 75 mls/hr 10/20/17 20:00 10/22/17 12:00 Sodium Chloride 0.9% IV 75 mls/hr .[id number] [facility] Administration Insulin Aspart 0 unit 10/21/17 18:00 10/22/17 18:01 Novolog SC 3 units Q6H [facility] Administration Protocol Insulin Detemir 15 unit 10/15/17 22:00 10/22/17 09:06 Levemir SC 15 units Q12 [facility] Administration Latanoprost 0 ml 10/03/17 22:00 10/21/17 21:54 Xalatan Opht OU 2.5 ml HS [facility] Administration Multivitamins/Vitamin C 5 ml 10/21/17 12:00 10/22/17 09:07 Multi-Delyn Liquid PO 5 ml DAILY [facility] Administration Pantoprazole Sodium 40 mg 10/20/17 17:30 10/22/17 17:15 Protonix Inj IVP 40 mg Q12H [facility] Administration Thiamine HCl 100 mg 10/21/17 12:00 10/22/17 17:15 Vitamin B1 Tab PO 100 mg BID [facility] Administration - Patient Studies Lab Studies: Microbiology Studies 10/19/17 12:16 Gram Stain - Final Cerebral Spinal Fluid CSF Culture - Preliminary NO GROWTH AFTER 3 DAYS 10/20/17 19:30 Blood Culture - Preliminary Blood-Thru Central Line NO GROWTH AFTER 24 HOURS 10/20/17 20:00 Blood Culture - Preliminary Blood-Thru Central Line NO GROWTH AFTER 24 HOURS Lab Studies 10/22/17 10/22/17 10/22/17 Range/Units 17:54 11:35 06:15 WBC (4.8-10.8) K/uL RBC (3.80-5.20) Mil/uL Hgb (11.0-16.0) g/dL Hct (34.0-47.0) % MCV (81.0-99.0) fL MCH (27.0-31.0) pg MCHC (33.0-37.0) g/dL RDW (11.5-14.5) % Plt Count (130-400) K/uL MPV (7.2-11.7) fL Neut % (Auto) (50.0-75.0) % Lymph % (Auto) (20.0-40.0) % Gladwin % (Auto) (0.0-10.0) % Eos % (Auto) (0.0-4.0) % Baso % (Auto) (0.0-2.0) % Neut # (Auto) (1.8-7.0) K/uL Lymph # (Auto) (1.0-4.3) K/uL Gladwin # (Auto) (0.0-0.8) K/uL Eos # (Auto) (0.0-0.7) K/uL Baso # (Auto) (0.0-0.2) K/uL Sodium 138 (132-148) mmol/L Potassium 3.3 L (3.6-5.2) mmol/L Chloride 102 (98-107) mmol/L Carbon Dioxide 29 (22-30) mmol/L Anion Gap 10 (10-20) BUN 15 (7-17) mg/dL Creatinine 0.6 L (0.7-1.2) mg/dL Est GFR ( Amer) > 60 Est GFR (Non-Af Amer) > 60 POC Glucose (mg/dL) 209 H 167 H (65-110) mg/dL Random Glucose 151 H (65-105) mg/dL Calcium 8.0 L (8.6-10.4) mg/dl Phosphorus 2.1 L (2.5-4.5) mg/dL Magnesium 1.7 (1.6-2.3) mg/dL Total Bilirubin 0.6 (0.2-1.3) mg/dL AST 29 (14-36) U/L ALT 38 (9-52) U/L Alkaline Phosphatase 65 (38-126) U/L Total Protein 5.7 L (6.3-8.3) g/dL Albumin 3.1 L (3.5-5.0) g/dL Globulin 2.7 (2.2-3.9) gm/dL Albumin/Globulin Ratio 1.1 (1.0-2.1) 10/22/17 10/22/17 10/21/17 Range/Units 06:15 04:58 23:33 WBC 7.0 (4.8-10.8) K/uL RBC 3.92 (3.80-5.20) Mil/uL Hgb 11.6 (11.0-16.0) g/dL Hct 34.0 (34.0-47.0) % MCV 86.6 (81.0-99.0) fL MCH 29.5 (27.0-31.0) pg MCHC 34.1 (33.0-37.0) g/dL RDW 14.5 (11.5-14.5) % Plt Count 178 (130-400) K/uL MPV 8.3 (7.2-11.7) fL Neut % (Auto) 59.3 (50.0-75.0) % Lymph % (Auto) 28.5 (20.0-40.0) % Gladwin % (Auto) 9.6 (0.0-10.0) % Eos % (Auto) 1.9 (0.0-4.0) % Baso % (Auto) 0.7 (0.0-2.0) % Neut # (Auto) 4.2 (1.8-7.0) K/uL Lymph # (Auto) 2.0 (1.0-4.3) K/uL Gladwin # (Auto) 0.7 (0.0-0.8) K/uL Eos # (Auto) 0.1 (0.0-0.7) K/uL Baso # (Auto) 0.1 (0.0-0.2) K/uL Sodium (132-148) mmol/L Potassium (3.6-5.2) mmol/L Chloride (98-107) mmol/L Carbon Dioxide (22-30) mmol/L Anion Gap (10-20) BUN (7-17) mg/dL Creatinine (0.7-1.2) mg/dL Est GFR ( Amer) Est GFR (Non-Af Amer) POC Glucose (mg/dL) 168 H 163 H (65-110) mg/dL Random Glucose (65-105) mg/dL Calcium (8.6-10.4) mg/dl Phosphorus (2.5-4.5) mg/dL Magnesium (1.6-2.3) mg/dL Total Bilirubin (0.2-1.3) mg/dL AST (14-36) U/L ALT (9-52) U/L Alkaline Phosphatase (38-126) U/L Total Protein (6.3-8.3) g/dL Albumin (3.5-5.0) g/dL Globulin (2.2-3.9) gm/dL Albumin/Globulin Ratio (1.0-2.1) Laboratory Results - last 24 hr 10/21/17 10/22/17 10/22/17 23:33 04:58 06:15 WBC 7.0 RBC 3.92 Hgb 11.6 Hct 34.0 MCV 86.6 MCH 29.5 MCHC 34.1 RDW 14.5 Plt Count 178 MPV 8.3 Neut % (Auto) 59.3 Lymph % (Auto) 28.5 Gladwin % (Auto) 9.6 Eos % (Auto) 1.9 Baso % (Auto) 0.7 Neut # (Auto) 4.2 Lymph # (Auto) 2.0 Gladwin # (Auto) 0.7 Eos # (Auto) 0.1 Baso # (Auto) 0.1 Sodium Potassium Chloride Carbon Dioxide Anion Gap BUN Creatinine Est GFR ( Amer) Est GFR (Non-Af Amer) POC Glucose (mg/dL) 163 H 168 H Random Glucose Calcium Phosphorus Magnesium Total Bilirubin AST ALT Alkaline Phosphatase Total Protein Albumin Globulin Albumin/Globulin Ratio 10/22/17 10/22/17 10/22/17 06:15 11:35 17:54 WBC RBC Hgb Hct MCV MCH MCHC RDW Plt Count MPV Neut % (Auto) Lymph % (Auto) Gladwin % (Auto) Eos % (Auto) Baso % (Auto) Neut # (Auto) Lymph # (Auto) Gladwin # (Auto) Eos # (Auto) Baso # (Auto) Sodium 138 Potassium 3.3 L Chloride 102 Carbon Dioxide 29 Anion Gap 10 BUN 15 Creatinine 0.6 L Est GFR ( Amer) > 60 Est GFR (Non-Af Amer) > 60 POC Glucose (mg/dL) 167 H 209 H Random Glucose 151 H Calcium 8.0 L Phosphorus 2.1 L Magnesium 1.7 Total Bilirubin 0.6 AST 29 ALT 38 Alkaline Phosphatase 65 Total Protein 5.7 L Albumin 3.1 L Globulin 2.7 Albumin/Globulin Ratio 1.1 Fingerstick Blood Sugar Results: 209 Review of Systems - Review of Systems All systems: reviewed and no additional remarkable complaints except Review of Systems: patient is not responding, not verbaliz But the responding to only deep stimuli Critical Care Progress Note - Nutrition Nutrition: Nutrition Category Date Time Status NPO Diet [DIET] Diets 10/20/17 Dinner Active Assessment/Plan - Assessment and Plan (Free Text) Assessment: patient with altered mental status normal pressure hydrocephalus Status post ventriculostomy For possible revision
[2017-10-22] MEDS: Latanoprost 2.5 ml Opht Soln OU SCH (21:18)
[2017-10-23] MEDS: Valproate 500 MG in Sodium Chloride 0.9% 100 ML IVPB SCH ×2 (01:18→14:47)
[2017-10-23] MEDS: Sodium Chloride 0.9% 1,000 ML IV SCH ×2 (01:23→17:21)
[2017-10-23 05:01] LABS: BASO # 0.1 K/uL (0.0-0.2); BASO % 0.8 % (0.0-2.0); EOS # 0.1 K/uL (0.0-0.7); EOS % 1.5 % (0.0-4.0); HEMOGLOBIN 12.4 g/dL (11.0-16.0); LYMPH % 27.9 % (20.0-40.0); MEAN CELL VOLUME 85.8 fL (81.0-99.0); MEAN CORPUSCULAR HGB CONC 33.8 g/dL (33.0-37.0); MEAN PLATELET VOLUME 8.1 fL (7.2-11.7); MONO # 0.5 K/uL (0.0-0.8); MONO % 6.4 % (0.0-10.0); NEUT # 4.6 K/uL (1.8-7.0); NEUT % 63.4 % (50.0-75.0); RBC 4.29 Mil/uL (3.80-5.20); RED CELL DISTRIBUTION WIDTH 14.6 % (11.5-14.5); WHITE BLOOD COUNT 7.2 K/uL (4.8-10.8)
[2017-10-23 05:02] LABS: INR 1.2
[2017-10-23] MEDS: (Novolog) Insulin Aspart, Recombinant 100 u/ml 10 ml vial SC SCH ×3 (05:04→18:18)
[2017-10-23] MEDS: Meropenem 1 GM in Sodium Chloride 0.9% 100 ML IVPB SCH ×4 (05:13→21:00)
[2017-10-23 05:20] LABS: ALB/GLOB RATIO 1.2 (1.0-2.1); ALBUMIN 3.3 g/dL (3.5-5.0); ALT/SGPT 35 U/L (9-52); AST/SGOT 22 U/L (14-36); BLOOD UREA NITROGEN 10 mg/dL (7-17); CALCIUM 8.2 mg/dl (8.6-10.4); GFR AFRICAN-AMERICAN > 60; GFR NON-AFRICAN AMERICAN > 60
--- NOTE | 2017-10-23 06:19 | CP.PCM.PN ---
Subjective - Date & Time of Evaluation Date of Evaluation: 10/23/17 Time of Evaluation: 06:19 - Subjective Subjective: Ms. Diaz was seen and examined at the bedside in ICU. She is awake, pupils sluggish with 3 mm size bilaterally. She is able to use non-verbal cues for communication such as nodding or shaking her head, however, she was able to clear pronounce the word "okay". She is able to follow some commands such as squeezing her right arm moving her left upper extremity and bilateral lower extremities. She is currently with an EVD drain which is clamp in preparation for her surgery this am. There was no untoward events overnight. Objective - Vital Signs/Intake and Output Vital Signs (last 24 hours): Temp Pulse Resp BP Pulse Ox 98.8 F 81 15 137/80 98 10/23/17 00:00 10/23/17 05:00 10/23/17 01:11 10/23/17 04:41 10/23/17 05:00 Intake and Output: 10/22/17 10/23/17 18:59 06:59 Intake Total 1370 1025 Output Total 1532 721 Balance -162 304 - Medications Medications: Current Medications Ascorbic Acid (Vitamin C 500 Mg Tab) 500 mg PO DAILY [facility] Last Admin: 10/22/17 09:06 Dose: 500 mg Cyanocobalamin (Vitamin B12 1000 Mcg Tab) 1,000 mcg PO DAILY [facility] Last Admin: 10/22/17 09:06 Dose: 1,000 mcg Dextrose (Dextrose 50% Inj) 0 ml IV STAT PRN; Protocol PRN Reason: Hypoglycemia Protocol Dextrose (Glutose 15) 0 gm PO ONCE PRN; Protocol PRN Reason: Hypoglycemia Protocol Glucagon (Glucagen Diagnostic Kit) 0 mg IM STAT PRN; Protocol PRN Reason: Hypoglycemia Protocol Valproate Sodium 500 mg/ (Sodium Chloride) 105 mls @ 100 mls/hr IVPB Q12H [facility] Last Admin: 10/23/17 01:18 Dose: 100 mls/hr Vancomycin HCl 1 gm/ Sodium (Chloride) 200 mls @ 133.333 mls/hr IVPB Q12 [facility] PRN Reason: Protocol Last Admin: 10/22/17 21:18 Dose: 133.333 mls/hr Meropenem 1 gm/ Sodium (Chloride) 100 mls @ 100 mls/hr IVPB Q8 [facility] PRN Reason: Protocol Last Admin: 10/23/17 05:53 Dose: 100 mls/hr Sodium Chloride (Sodium Chloride 0.9%) 1,000 mls @ 75 mls/hr IV .[id number] [facility] Last Admin: 10/23/17 01:23 Dose: Not Given Insulin Aspart (Novolog) 0 unit SC Q6H [facility] PRN Reason: Protocol Last Admin: 10/23/17 05:04 Dose: Not Given Insulin Detemir (Levemir) 15 unit SC Q12 [facility] Last Admin: 10/22/17 21:09 Dose: Not Given Latanoprost (Xalatan Opht) 0 ml OU HS [facility] Last Admin: 10/22/17 21:18 Dose: 2.5 ml Multivitamins/Vitamin C (Multi-Delyn Liquid) 5 ml PO DAILY [facility] Last Admin: 10/22/17 09:07 Dose: 5 ml Pantoprazole Sodium (Protonix Inj) 40 mg IVP Q12H [facility] Last Admin: 10/23/17 05:53 Dose: 40 mg Thiamine HCl (Vitamin B1 Tab) 100 mg PO BID [facility] Last Admin: 10/22/17 17:15 Dose: 100 mg - Labs Labs: 10/23/17 04:53 10/23/17 04:53 PT 13.0 SECONDS (9.7-12.2) H 10/23/17 04:53 INR 1.2 10/23/17 04:53 APTT 24 SECONDS (21-34) 10/23/17 04:53 - Constitutional Appears: No Acute Distress - Head Exam Head Exam: NORMAL INSPECTION Additional comments: right parietal dressing - Eye Exam Pupil Exam: PERRL Additional comments: sluggish 3mm - Neurological Exam Neurological Exam: Awake Additional comments: awake, able to follow some commands Assessment and Plan (1) Mental status change Assessment & Plan: Case discussed with Dr. Nixon, continue all current medical regimen, Pending EEG result. Recommend to follow any orders from neurosurgery,normotension, normothermic, glycemic control, and keep head of bed elevated at least 40 degrees. Status: Acute
--- NOTE | 2017-10-23 07:27 | PN ---
DATE: 10/21/2017 SUBJECTIVE: Ms. Diaz had her SUBASSEMBLER shunt, i.e. the ventricular catheter externalized yesterday. It was draining very nicely with a good waveform until apparently she went for CAT scan this morning. Upon her return, it was no longer draining with no waveform and the CT demonstrated that the catheter tip was now essentially above the lateral ventricle, came in to investigate, prepped and draped the area in the usual sterile manner. I opened up her wound a little bit more proximally and found that the catheter was now kinked. I thus intentionally cut the catheter at this level as the catheter was now damaged. The patient had previously had this very unusual SUBASSEMBLER shunt system inserted with some type of blue ring that was just distal to the sarina hole and while extricating that, the rest of the catheter was subsequently not visible, i.e. intracranial. At this point, I placed a brand new ventricular catheter along the same passage way and encountered clear CSF under moderate pressure. On the initial placement, I a separate point with a trocar and cinched tight in place, hooked up to the existing internal drainage system and it was draining very nicely. The ICP was noted to approximately 10. There was good drainage and a good waveform. I closed the incision and re-dressed it sterily. The plan will be to completely revise system on early Monday morning. All the above was discussed with the patient's daughter. Prognosis is guarded. Fer Hancock MD
--- NOTE | 2017-10-23 07:27 | PN ---
DATE: 10/20/2017 SUBJECTIVE: The patient was status post revision of her AIR BAG BUILDER shunt yesterday, which went well, was converted into an atrial shunt. She did very nicely immediately postop in the recovery room, was extubated, was talking, moving all extremities and following commands. I was contacted in the middle of the night that she had become unresponsive. Emergency CAT scan was performed early this morning, documented once again expansion of her ventricles. She was emergently transferred down to the ICU. On arrival there, I found her to be minimally responsive withe some decorticate activity. She did seem to be responding to . I immediately prepped and draped her incision, opened up the wound. I detached the ventricular catheter from the valve, immediately clear CSF under high pressure delivered itself. I then tunneled the catheter out of separate incision, documented that it would continue to drain. I then hooked it up to a new Bartholomew external drainage system. I set the pressure at 6 cm of water and reclosed the wound. I followed her for the next hour. She subsequently drained 10 mL, which was normal. Additionally, her ICP demonstrated good waveform with the pressure of 6, matching the valve, thus documenting good performance of the . I contacted Dr. Monroe who performed the operation and I think the plan will be as she has now had so many distal failures that we would allow her to undergo external ventricular drainage for the next several days, and hopefully plan on revising the shunt beginning of the week. Fer Hancock MD
[2017-10-23] MEDS ORDERED: Gentamicin Sulfate 10 MG in Sodium Chloride 0.9% 1 ML IN ONE (07:30)
[2017-10-23] MEDS ORDERED: Bacitracin 50,000 UNIT in Sodium Chloride 0.9% Irrig 1,000 ML IR SCH (07:30)
[2017-10-23] MEDS ORDERED: Thrombin Topical 5,000 Int Units Spray Kit ONE (07:37)
[2017-10-23] MEDS ORDERED: Propofol 10 mg/ml Inj (20 ML) ONE (07:39)
[2017-10-23] MEDS ORDERED: Rocuronium 10 mg/ml (5 ml) ONE (07:41)
[2017-10-23] MEDS ORDERED: SODIUM CHLORIDE 0.9% IN ONE (08:00)
[2017-10-23] MEDS ORDERED: VANCOMYCIN IN ONE (08:00)
[2017-10-23] MEDS ORDERED: cefTRIAXone IV 1 gm in Dextros 50 ML IVPB ONE (08:19)
[2017-10-23] MEDS: Lidocaine/Epinephrine 1% 1:100000 10 ML IJ ONE ×2 (08:36→09:03)
[2017-10-23] MEDS: Absorbable Gelatin Sponge Size 100 ONE ×2 (08:37→15:00)
[2017-10-23] MEDS: Bacitracin Ointment 30 GM TUBE ONE ×2 (08:38→10:02)
[2017-10-23] MEDS ORDERED: Phenylephrine 10 mg/ml Inj ONE (08:42)
[2017-10-23] MEDS ORDERED: Potassium Phosphate 15 MMOLE in Sodium Chloride 0.9% 250 ML IVPB ONE (09:00)
[2017-10-23] MEDS ORDERED: Neostigmine Methylsulfate 3mg/3ml Syringe IV ONE (09:09)
[2017-10-23] MEDS ORDERED: Labetalol 25mg/5ml Syringe ONE (10:07)
--- NOTE | 2017-10-23 11:06 | RAD ---
HISTORY: TLC and pleural catheter COMPARISON: Multiple serial examinations preceding the most recent study: October 22, 2017. FINDINGS: LUNGS: No active pulmonary disease. PLEURA: No significant pleural effusion identified, no pneumothorax apparent. CARDIOVASCULAR: No radiographic findings to suggest acute or significant cardiovascular disease. Venous access catheter in satisfactory position. OSSEOUS STRUCTURES: No significant abnormalities. VISUALIZED UPPER ABDOMEN: Normal. OTHER FINDINGS: Nasogastric tube courses through the esophagus, the tip is in the distal stomach. IMPRESSION: Satisfactory position of right IJ catheter. No pneumothorax identified
[2017-10-23] MEDS: Multiple Vitamins Oral Solution PO SCH (11:26)
[2017-10-23] MEDS: Vancomycin 1 GM in Sodium Chloride 0.9% 200 ML IVPB SCH ×2 (11:32→22:30)
--- NOTE | 2017-10-23 12:45 | CP.CCUPN ---
<Ernestine Posadas - Last Filed: 10/23/17 12:32> CCU Subjective - Physician Review Subjective (Free Text): Patient seen and examined at bedside. Patient is s/p shunt revision. CCU Objective - Vital Signs / Intake & Output Vital Signs (Last 4 hours): Vital Signs Temp Pulse Resp BP Pulse Ox 10/23/17 12:05 149/69 10/23/17 12:03 74 99 10/23/17 12:00 98.1 F 73 99 10/23/17 11:50 75 142/73 98 10/23/17 11:35 86 158/75 H 98 10/23/17 11:20 73 10 L 116/66 99 10/23/17 11:05 75 10 L 128/74 98 10/23/17 11:00 76 22 98 10/23/17 10:49 78 19 143/79 98 10/23/17 10:41 78 12 141/80 100 10/23/17 10:32 79 14 140/80 96 10/23/17 10:30 99 H 11 L Intake and Output (Last 8hrs): Intake & Output 10/22/17 10/23/17 10/23/17 22:59 06:59 14:59 Intake Total 8130 709 9182.5 Output Total 896 660 310 Balance 159 25 832.5 Weight 206 lb 14.08 oz Intake: IV 700 Intake, IV Amount 775 650 442.5 Left Medial Port Internal 775 650 150 Jugular Right Internal Jugular 292.5 Tube Feeding 280 35 0 Output: Drainage 111 100 50 Ventriculostomy 111 100 50 Urine 785 560 260 Urethral (Fernandez) 785 560 110 Other: # Bowel Movements 1 1 - Physical Exam Head: Positive for: Normocephalic Pupils: Positive for: PERRL Extroacular Muscles: Positive for: EOMI Mouth: Positive for: Dry, Other (NGT in place ) Respiratory/Chest: Positive for: Clear to Auscultation. Negative for: Respiratory Distress Cardiovascular: Positive for: Regular Rate and Rhythm Abdomen: Positive for: Normal Bowel Sounds. Negative for: Tenderness, Distention Upper Extremity: Positive for: Normal Inspection, NORMAL PULSES, Neurovascularly Intact, Capillary Refill < 2s Lower Extremity: Positive for: Normal Inspection, NORMAL PULSES, Neurovascularly Intact, Capillary Refill < 2 s Neurological: Positive for: Other (Unable to full assese, Pt Lethargic, Only responding to pain) Skin: Positive for: Warm, Dry, Normal Color Psychiatric: Positive for: Other (Lethargic). Negative for: Alert, Oriented x 3 - Medications Active Medications: Active Medications Generic Name Dose Route Start Last Admin Trade Name Freq PRN Reason Stop Dose Admin Ascorbic Acid 500 mg 10/21/17 12:00 10/23/17 11:28 Vitamin C 500 Mg Tab PO Not Given DAILY MOLLY Cyanocobalamin 1,000 mcg 10/21/17 12:00 10/23/17 11:28 Vitamin B12 1000 Mcg Tab PO Not Given DAILY MOLLY Dextrose 0 ml 10/03/17 13:28 Dextrose 50% Inj IV STAT PRN Hypoglycemia Protocol Protocol Dextrose 0 gm 10/03/17 13:28 Glutose 15 PO ONCE PRN Hypoglycemia Protocol Protocol Glucagon 0 mg 10/03/17 13:28 Glucagen Diagnostic Kit IM STAT PRN Hypoglycemia Protocol Protocol Valproate Sodium 500 mg/ 105 mls @ 100 mls/hr 10/11/17 14:03 10/23/17 01:18 Sodium Chloride IVPB 100 mls/hr Q12H MOLLY Administration Vancomycin HCl 1 gm/ Sodium 200 mls @ 133.333 mls/hr 10/20/17 22:00 10/23/17 11:32 Chloride IVPB 133.333 mls/hr Q12 MOLLY Administration Protocol Meropenem 1 gm/ Sodium 100 mls @ 100 mls/hr 10/20/17 22:00 10/23/17 05:53 Chloride IVPB 100 mls/hr Q8 MOLLY Administration Protocol Sodium Chloride 1,000 mls @ 75 mls/hr 10/20/17 20:00 10/23/17 01:23 Sodium Chloride 0.9% IV Not Given .[id number] MOLLY Potassium Phosphate 15 mmole/ 255 mls @ 42.5 mls/hr 10/23/17 09:00 10/23/17 11:32 Sodium Chloride IVPB 10/23/17 14:59 42.5 mls/hr ONCE ONE Administration Insulin Aspart 0 unit 10/21/17 18:00 10/23/17 05:04 Novolog SC Not Given Q6H MOLLY Protocol Insulin Detemir 15 unit 10/15/17 22:00 10/22/17 21:09 Levemir SC Not Given Q12 MOLLY Latanoprost 0 ml 10/03/17 22:00 10/22/17 21:18 Xalatan Opht OU 2.5 ml HS MOLLY Administration Multivitamins/Vitamin C 5 ml 10/21/17 12:00 10/23/17 11:26 Multi-Delyn Liquid PO Not Given DAILY MOLLY Pantoprazole Sodium 40 mg 10/20/17 17:30 10/23/17 05:53 Protonix Inj IVP 40 mg Q12H MOLLY Administration Thiamine HCl 100 mg 10/21/17 12:00 10/23/17 11:27 Vitamin B1 Tab PO Not Given BID MOLLY - Patient Studies Lab Studies: Microbiology Studies 10/20/17 19:30 Blood Culture - Preliminary Blood-Thru Central Line NO GROWTH AFTER 48 HOURS 10/20/17 20:00 Blood Culture - Preliminary Blood-Thru Central Line NO GROWTH AFTER 48 HOURS 10/19/17 12:16 Gram Stain - Final Cerebral Spinal Fluid CSF Culture - Preliminary NO GROWTH AFTER 3 DAYS Lab Studies 10/23/17 10/23/17 10/23/17 Range/Units 04:53 04:53 04:53 WBC 7.2 (4.8-10.8) K/uL RBC 4.29 (3.80-5.20) Mil/uL Hgb 12.4 (11.0-16.0) g/dL Hct 36.8 (34.0-47.0) % MCV 85.8 (81.0-99.0) fL MCH 29.0 (27.0-31.0) pg MCHC 33.8 (33.0-37.0) g/dL RDW 14.6 H (11.5-14.5) % Plt Count 178 (130-400) K/uL MPV 8.1 (7.2-11.7) fL Neut % (Auto) 63.4 (50.0-75.0) % Lymph % (Auto) 27.9 (20.0-40.0) % [place] % (Auto) 6.4 (0.0-10.0) % Eos % (Auto) 1.5 (0.0-4.0) % Baso % (Auto) 0.8 (0.0-2.0) % Neut # (Auto) 4.6 (1.8-7.0) K/uL Lymph # (Auto) 2.0 (1.0-4.3) K/uL [place] # (Auto) 0.5 (0.0-0.8) K/uL Eos # (Auto) 0.1 (0.0-0.7) K/uL Baso # (Auto) 0.1 (0.0-0.2) K/uL PT 13.0 H (9.7-12.2) SECONDS INR 1.2 APTT 24 (21-34) SECONDS Sodium 138 (132-148) mmol/L Potassium 3.4 L (3.6-5.2) mmol/L Chloride 99 (98-107) mmol/L Carbon Dioxide 30 (22-30) mmol/L Anion Gap 13 (10-20) BUN 10 (7-17) mg/dL Creatinine 0.5 L (0.7-1.2) mg/dL Est GFR ( Amer) > 60 Est GFR (Non-Af Amer) > 60 POC Glucose (mg/dL) (65-110) mg/dL Random Glucose 180 H (65-105) mg/dL Calcium 8.2 L (8.6-10.4) mg/dl Phosphorus 2.2 L (2.5-4.5) mg/dL Magnesium 1.8 (1.6-2.3) mg/dL Total Bilirubin 0.7 (0.2-1.3) mg/dL AST 22 (14-36) U/L ALT 35 (9-52) U/L Alkaline Phosphatase 66 (38-126) U/L Total Protein 6.0 L (6.3-8.3) g/dL Albumin 3.3 L (3.5-5.0) g/dL Globulin 2.8 (2.2-3.9) gm/dL Albumin/Globulin Ratio 1.2 (1.0-2.1) 10/23/17 10/22/17 10/22/17 Range/Units 04:42 23:50 17:54 WBC (4.8-10.8) K/uL RBC (3.80-5.20) Mil/uL Hgb (11.0-16.0) g/dL Hct (34.0-47.0) % MCV (81.0-99.0) fL MCH (27.0-31.0) pg MCHC (33.0-37.0) g/dL RDW (11.5-14.5) % Plt Count (130-400) K/uL MPV (7.2-11.7) fL Neut % (Auto) (50.0-75.0) % Lymph % (Auto) (20.0-40.0) % [place] % (Auto) (0.0-10.0) % Eos % (Auto) (0.0-4.0) % Baso % (Auto) (0.0-2.0) % Neut # (Auto) (1.8-7.0) K/uL Lymph # (Auto) (1.0-4.3) K/uL [place] # (Auto) (0.0-0.8) K/uL Eos # (Auto) (0.0-0.7) K/uL Baso # (Auto) (0.0-0.2) K/uL PT (9.7-12.2) SECONDS INR APTT (21-34) SECONDS Sodium (132-148) mmol/L Potassium (3.6-5.2) mmol/L Chloride (98-107) mmol/L Carbon Dioxide (22-30) mmol/L Anion Gap (10-20) BUN (7-17) mg/dL Creatinine (0.7-1.2) mg/dL Est GFR ( Amer) Est GFR (Non-Af Amer) POC Glucose (mg/dL) 213 H 214 H 209 H (65-110) mg/dL Random Glucose (65-105) mg/dL Calcium (8.6-10.4) mg/dl Phosphorus (2.5-4.5) mg/dL Magnesium (1.6-2.3) mg/dL Total Bilirubin (0.2-1.3) mg/dL AST (14-36) U/L ALT (9-52) U/L Alkaline Phosphatase (38-126) U/L Total Protein (6.3-8.3) g/dL Albumin (3.5-5.0) g/dL Globulin (2.2-3.9) gm/dL Albumin/Globulin Ratio (1.0-2.1) Laboratory Results - last 24 hr 06/17/18 06/17/18 06/18/18 17:54 23:50 04:42 WBC RBC Hgb Hct MCV MCH MCHC RDW Plt Count MPV Neut % (Auto) Lymph % (Auto) [place] % (Auto) Eos % (Auto) Baso % (Auto) Neut # (Auto) Lymph # (Auto) [place] # (Auto) Eos # (Auto) Baso # (Auto) PT INR APTT Sodium Potassium Chloride Carbon Dioxide Anion Gap BUN Creatinine Est GFR ( Amer) Est GFR (Non-Af Amer) POC Glucose (mg/dL) 209 H 214 H 213 H Random Glucose Calcium Phosphorus Magnesium Total Bilirubin AST ALT Alkaline Phosphatase Total Protein Albumin Globulin Albumin/Globulin Ratio 10/23/17 10/23/17 10/23/17 04:53 04:53 04:53 WBC 7.2 RBC 4.29 Hgb 12.4 Hct 36.8 MCV 85.8 MCH 29.0 MCHC 33.8 RDW 14.6 H Plt Count 178 MPV 8.1 Neut % (Auto) 63.4 Lymph % (Auto) 27.9 [place] % (Auto) 6.4 Eos % (Auto) 1.5 Baso % (Auto) 0.8 Neut # (Auto) 4.6 Lymph # (Auto) 2.0 [place] # (Auto) 0.5 Eos # (Auto) 0.1 Baso # (Auto) 0.1 PT 13.0 H INR 1.2 APTT 24 Sodium 138 Potassium 3.4 L Chloride 99 Carbon Dioxide 30 Anion Gap 13 BUN 10 Creatinine 0.5 L Est GFR ( Amer) > 60 Est GFR (Non-Af Amer) > 60 POC Glucose (mg/dL) Random Glucose 180 H Calcium 8.2 L Phosphorus 2.2 L Magnesium 1.8 Total Bilirubin 0.7 AST 22 ALT 35 Alkaline Phosphatase 66 Total Protein 6.0 L Albumin 3.3 L Globulin 2.8 Albumin/Globulin Ratio 1.2 Fingerstick Blood Sugar Results: 232 Critical Care Progress Note - Nutrition Nutrition: Nutrition Category Date Time Status NPO Diet [DIET] Diets 10/20/17 Dinner Active Assessment/Plan - Assessment and Plan (Free Text) Assessment: Ms. 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 Patient admitted to the ICU for AMS and enlarging ventricles noted on CT Scan. Plan for revision on . 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 Milton consulted - Shunt placed in 2014 - SOLE STITCHER HAND Shunt repair 02/26/17 - s/p SOLE STITCHER HAND shunt revision - 3rd this hospital stay (10/10/2017, 10/11/2017, 10/19/2017 , 10/23/2017) - Plan for revision on 10/23/17 - placement of left parietal pleural shunt - Head CT 10/20: Marked dilatation 3rd and lateral ventricles increased from prior study. Findings suggest new shunt malfunction . Chronic white matter changes may represent some combination of transependymal edema and or microvascular ischemic disease. - Pending EEG -keep MAP ~100, ICP 10: CPP >70 -continue IV NS, osmol 305, will increase NA near 145 -keep HOB >30 - Mannitol 25grams given x 1 - Started on vanco Q12 and Meropenem 10/20 - Teague cultures - negative to date Neurology consulted, Dr. Nixon - Continue valproate 500mg IVPB q12h for seizure prophylaxis Cardio: A: Hypertension - Held Amlodipine 5mg PO daily, Metoprolol Tart 12.5mg PO BID A: HLD - Crestor 5 mg po hs - HELD Pulm A: Hx Asthma Endo: A: Diabetes - Accuchecks - Medium Dose insulin sliding scale, Levemir dose of 15 units BID, ISS- low - Held due to current NPO status Prophylaxis - SCDs - Protonix Q12 - Right TLC placed 10/23/17 DW Ernestine Lowery DO, PGY-1 <Juliana Julien - Last Filed: 11/13/17 08:53> CCU Objective - Vital Signs / Intake & Output Intake and Output (Last 8hrs): Intake & Output 11/12/17 11/13/17 11/13/17 22:59 06:59 14:59 Intake Total 1010 Output Total 950 Balance 60 Intake: Intake, IV Amount 200 Right Wrist 200 Tube Feeding 660 Other 150 Output: Urine 950 Urine, Voided 950 Other: # Bowel Movements 0 - Medications Active Medications: Active Medications Generic Name Dose Route Start Last Admin Trade Name Freq PRN Reason Stop Dose Admin Amantadine HCl 100 mg 11/13/17 10:00 Symmetrel PO DAILY MOLLY Ascorbic Acid 500 mg 11/03/17 10:00 11/12/17 11:46 Vitamin C 500 Mg Tab GT 500 mg DAILY MOLLY Administration Dextrose 0 ml 10/03/17 13:28 Dextrose 50% Inj IV STAT PRN Hypoglycemia Protocol Protocol Dextrose 0 gm 11/03/17 09:00 Glutose 15 GT ONCE PRN Hypoglycemia Protocol Protocol Glucagon 0 mg 10/03/17 13:28 Glucagen Diagnostic Kit IM STAT PRN Hypoglycemia Protocol Protocol Valproate Sodium 500 mg/ 105 mls @ 100 mls/hr 11/02/17 14:00 11/03/17 01:14 Sodium Chloride IVPB 100 mls/hr Q12H MOLLY Administration Meropenem 1 gm/ Sodium 100 mls @ 100 mls/hr 11/07/17 14:00 11/13/17 05:13 Chloride IVPB 100 mls/hr Q8 MOLLY Administration Protocol Micafungin Sodium 100 mg/ 100 mls @ 100 mls/hr 11/09/17 16:00 11/12/17 16:57 Sodium Chloride IV 100 mls/hr Q24H MOLLY Administration Protocol Vancomycin/Sodium Chloride 1 gm in 200 mls @ 133 mls/hr 11/13/17 08:00 08:10 Vancomycin 1 Gm/Ns 200 Ml IVPB 11/18/17 08:01 133 mls/hr Q12H MOLLY Administration Protocol Insulin Aspart 0 unit 10/21/17 18:00 11/13/17 06:51 Novolog SC 4 units Q6H MOLLY Administration Protocol Insulin Glargine 30 unit 11/11/17 22:00 11/12/17 22:03 Lantus SC 30 unit HS MOLLY Administration Latanoprost 0 ml 10/03/17 22:00 11/12/17 21:57 Xalatan Opht OU 2.5 ml HS MOLLY Administration Losartan Potassium 25 mg 11/07/17 10:00 11/12/17 09:32 Cozaar NG 25 mg DAILY MOLLY Administration Pantoprazole Sodium 40 mg 11/10/17 10:00 11/12/17 09:33 Protonix Susp GT 40 mg DAILY MOLLY Administration Saccharomyces Boulardii 250 mg 11/11/17 18:00 11/12/17 18:45 Florastor NG 250 mg BID MOLLY Administration - Patient Studies Lab Studies: Microbiology Studies 11/07/17 13:34 Blood Culture - Final Blood NO GROWTH AFTER 5 DAYS Gram Stain - Final TEST NOT PERFORMED 11/07/17 13:34 Blood Culture - Final Blood NO GROWTH AFTER 5 DAYS Gram Stain - Final TEST NOT PERFORMED 11/09/17 09:43 Gram Stain - Final Cerebral Spinal Fluid CSF Culture - Preliminary NO GROWTH AFTER 3 DAYS Lab Studies 11/13/17 11/13/17 11/13/17 Range/Units 07:00 07:00 06:36 WBC 9.7 (4.8-10.8) K/uL RBC 3.83 (3.80-5.20) Mil/uL Hgb 11.1 (11.0-16.0) g/dL Hct 33.3 L (34.0-47.0) % MCV 87.1 (81.0-99.0) fL MCH 29.1 (27.0-31.0) pg MCHC 33.4 (33.0-37.0) g/dL RDW 15.2 H (11.5-14.5) % Plt Count 219 (130-400) K/uL MPV 8.6 (7.2-11.7) fL Neut % (Auto) 81.0 H (50.0-75.0) % Lymph % (Auto) 12.7 L (20.0-40.0) % [place] % (Auto) 4.4 (0.0-10.0) % Eos % (Auto) 1.4 (0.0-4.0) % Baso % (Auto) 0.5 (0.0-2.0) % Neut # (Auto) 7.9 H (1.8-7.0) K/uL Lymph # (Auto) 1.2 (1.0-4.3) K/uL [place] # (Auto) 0.4 (0.0-0.8) K/uL Eos # (Auto) 0.1 (0.0-0.7) K/uL Baso # (Auto) 0.0 (0.0-0.2) K/uL Sodium 145 (132-148) mmol/L Potassium 3.9 (3.6-5.2) mmol/L Chloride 106 (98-107) mmol/L Carbon Dioxide 32 H (22-30) mmol/L Anion Gap 11 (10-20) BUN 24 H (7-17) mg/dL Creatinine 0.5 L (0.7-1.2) mg/dL Est GFR ( Amer) > 60 Est GFR (Non-Af Amer) > 60 POC Glucose (mg/dL) 265 H (65-110) mg/dL Random Glucose 286 H (65-105) mg/dL Calcium 8.2 L (8.6-10.4) mg/dl Phosphorus 2.8 (2.5-4.5) mg/dL Magnesium 2.2 (1.6-2.3) mg/dL Total Bilirubin 0.5 (0.2-1.3) mg/dL AST 37 H (14-36) U/L ALT 53 H (9-52) U/L Alkaline Phosphatase 93 (38-126) U/L Total Protein 5.7 L (6.3-8.3) g/dL Albumin 2.9 L (3.5-5.0) g/dL Globulin 2.8 (2.2-3.9) gm/dL Albumin/Globulin Ratio 1.1 (1.0-2.1) Procalcitonin (0.19-0.49) NG/ML C. difficile Ag & Toxin (NEGATIVE) 11/12/17 11/12/17 11/12/17 Range/Units 23:02 17:37 11:49 WBC (4.8-10.8) K/uL RBC (3.80-5.20) Mil/uL Hgb (11.0-16.0) g/dL Hct (34.0-47.0) % MCV (81.0-99.0) fL MCH (27.0-31.0) pg MCHC (33.0-37.0) g/dL RDW (11.5-14.5) % Plt Count (130-400) K/uL MPV (7.2-11.7) fL Neut % (Auto) (50.0-75.0) % Lymph % (Auto) (20.0-40.0) % [place] % (Auto) (0.0-10.0) % Eos % (Auto) (0.0-4.0) % Baso % (Auto) (0.0-2.0) % Neut # (Auto) (1.8-7.0) K/uL Lymph # (Auto) (1.0-4.3) K/uL [place] # (Auto) (0.0-0.8) K/uL Eos # (Auto) (0.0-0.7) K/uL Baso # (Auto) (0.0-0.2) K/uL Sodium (132-148) mmol/L Potassium (3.6-5.2) mmol/L Chloride (98-107) mmol/L Carbon Dioxide (22-30) mmol/L Anion Gap (10-20) BUN (7-17) mg/dL Creatinine (0.7-1.2) mg/dL Est GFR ( Amer) Est GFR (Non-Af Amer) POC Glucose (mg/dL) 260 H 197 H 237 H (65-110) mg/dL Random Glucose (65-105) mg/dL Calcium (8.6-10.4) mg/dl Phosphorus (2.5-4.5) mg/dL Magnesium (1.6-2.3) mg/dL Total Bilirubin (0.2-1.3) mg/dL AST (14-36) U/L ALT (9-52) U/L Alkaline Phosphatase (38-126) U/L Total Protein (6.3-8.3) g/dL Albumin (3.5-5.0) g/dL Globulin (2.2-3.9) gm/dL Albumin/Globulin Ratio (1.0-2.1) Procalcitonin (0.19-0.49) NG/ML C. difficile Ag & Toxin (NEGATIVE) 11/12/17 11/12/17 11/11/17 Range/Units 08:01 06:43 06:00 WBC (4.8-10.8) K/uL RBC (3.80-5.20) Mil/uL Hgb (11.0-16.0) g/dL Hct (34.0-47.0) % MCV (81.0-99.0) fL MCH (27.0-31.0) pg MCHC (33.0-37.0) g/dL RDW (11.5-14.5) % Plt Count (130-400) K/uL MPV (7.2-11.7) fL Neut % (Auto) (50.0-75.0) % Lymph % (Auto) (20.0-40.0) % [place] % (Auto) (0.0-10.0) % Eos % (Auto) (0.0-4.0) % Baso % (Auto) (0.0-2.0) % Neut # (Auto) (1.8-7.0) K/uL Lymph # (Auto) (1.0-4.3) K/uL [place] # (Auto) (0.0-0.8) K/uL Eos # (Auto) (0.0-0.7) K/uL Baso # (Auto) (0.0-0.2) K/uL Sodium (132-148) mmol/L Potassium (3.6-5.2) mmol/L Chloride (98-107) mmol/L Carbon Dioxide (22-30) mmol/L Anion Gap (10-20) BUN (7-17) mg/dL Creatinine (0.7-1.2) mg/dL Est GFR ( Amer) Est GFR (Non-Af Amer) POC Glucose (mg/dL) 234 H (65-110) mg/dL Random Glucose (65-105) mg/dL Calcium (8.6-10.4) mg/dl Phosphorus (2.5-4.5) mg/dL Magnesium (1.6-2.3) mg/dL Total Bilirubin (0.2-1.3) mg/dL AST (14-36) U/L ALT (9-52) U/L Alkaline Phosphatase (38-126) U/L Total Protein (6.3-8.3) g/dL Albumin (3.5-5.0) g/dL Globulin (2.2-3.9) gm/dL Albumin/Globulin Ratio (1.0-2.1) Procalcitonin 0.14 L (0.19-0.49) NG/ML C. difficile Ag & Toxin Negative (NEGATIVE) Laboratory Results - last 24 hr 11/11/17 11/12/1718 06:00 06:43 08:01 WBC RBC Hgb Hct MCV MCH MCHC RDW Plt Count MPV Neut % (Auto) Lymph % (Auto) [place] % (Auto) Eos % (Auto) Baso % (Auto) Neut # (Auto) Lymph # (Auto) [place] # (Auto) Eos # (Auto) Baso # (Auto) Sodium Potassium Chloride Carbon Dioxide Anion Gap BUN Creatinine Est GFR ( Amer) Est GFR (Non-Af Amer) POC Glucose (mg/dL) 234 H Random Glucose Calcium Phosphorus Magnesium Total Bilirubin AST ALT Alkaline Phosphatase Total Protein Albumin Globulin Albumin/Globulin Ratio Procalcitonin 0.14 L C. difficile Ag & Toxin Negative 11/12/17 11/12/17 11/12/17 11:49 17:37 23:02 WBC RBC Hgb Hct MCV MCH MCHC RDW Plt Count MPV Neut % (Auto) Lymph % (Auto) [place] % (Auto) Eos % (Auto) Baso % (Auto) Neut # (Auto) Lymph # (Auto) [place] # (Auto) Eos # (Auto) Baso # (Auto) Sodium Potassium Chloride Carbon Dioxide Anion Gap BUN Creatinine Est GFR ( Amer) Est GFR (Non-Af Amer) POC Glucose (mg/dL) 237 H 197 H 260 H Random Glucose Calcium Phosphorus Magnesium Total Bilirubin AST ALT Alkaline Phosphatase Total Protein Albumin Globulin Albumin/Globulin Ratio Procalcitonin C. difficile Ag & Toxin 11/13/17 11/13/17 11/13/17 06:36 07:00 07:00 WBC 9.7 RBC 3.83 Hgb 11.1 Hct 33.3 L MCV 87.1 MCH 29.1 MCHC 33.4 RDW 15.2 H Plt Count 219 MPV 8.6 Neut % (Auto) 81.0 H Lymph % (Auto) 12.7 L [place] % (Auto) 4.4 Eos % (Auto) 1.4 Baso % (Auto) 0.5 Neut # (Auto) 7.9 H Lymph # (Auto) 1.2 [place] # (Auto) 0.4 Eos # (Auto) 0.1 Baso # (Auto) 0.0 Sodium 145 Potassium 3.9 Chloride 106 Carbon Dioxide 32 H Anion Gap 11 BUN 24 H Creatinine 0.5 L Est GFR ( Amer) > 60 Est GFR (Non-Af Amer) > 60 POC Glucose (mg/dL) 265 H Random Glucose 286 H Calcium 8.2 L Phosphorus 2.8 Magnesium 2.2 Total Bilirubin 0.5 AST 37 H ALT 53 H Alkaline Phosphatase 93 Total Protein 5.7 L Albumin 2.9 L Globulin 2.8 Albumin/Globulin Ratio 1.1 Procalcitonin C. difficile Ag & Toxin Critical Care Progress Note - Nutrition Nutrition: Nutrition Category Date Time Status NPO Diet [DIET] Diets 10/20/17 Dinner Active Attending/Attestation - Attestation I have personally seen and examined this patient.: Yes I have fully participated in the care of the patient.: Yes I have reviewed all pertinent clinical information: Yes Notes (Text): pt is seen examined and reviewed with resident and agree with note
[2017-10-23] MEDS: Insulin Detemir 100 units/ml Vial (Levemir) SC SCH ×2 (12:50→22:36)
--- NOTE | 2017-10-23 16:24 | CP.PCM.PN ---
Subjective - Date & Time of Evaluation Date of Evaluation: 10/23/17 Time of Evaluation: 04:20 - Subjective Subjective: dictated Objective - Vital Signs/Intake and Output Vital Signs (last 24 hours): Temp Pulse Resp BP Pulse Ox 98.3 F 99 H 10 L 178/78 H 98 10/23/17 16:00 10/23/17 16:00 10/23/17 11:20 10/23/17 15:55 10/23/17 16:00 Intake and Output: 10/23/17 10/23/17 06:59 18:59 Intake Total 1275 1512.5 Output Total 981 785 Balance 294 727.5 - Medications Medications: Current Medications Ascorbic Acid (Vitamin C 500 Mg Tab) 500 mg PO DAILY [facility] Last Admin: 10/23/17 11:28 Dose: Not Given Cyanocobalamin (Vitamin B12 1000 Mcg Tab) 1,000 mcg PO DAILY [facility] Last Admin: 10/23/17 11:28 Dose: Not Given Dextrose (Dextrose 50% Inj) 0 ml IV STAT PRN; Protocol PRN Reason: Hypoglycemia Protocol Dextrose (Glutose 15) 0 gm PO ONCE PRN; Protocol PRN Reason: Hypoglycemia Protocol Glucagon (Glucagen Diagnostic Kit) 0 mg IM STAT PRN; Protocol PRN Reason: Hypoglycemia Protocol Valproate Sodium 500 mg/ (Sodium Chloride) 105 mls @ 100 mls/hr IVPB Q12H [facility] Last Admin: 10/23/17 14:47 Dose: 100 mls/hr Vancomycin HCl 1 gm/ Sodium (Chloride) 200 mls @ 133.333 mls/hr IVPB Q12 [facility] PRN Reason: Protocol Last Admin: 10/23/17 11:32 Dose: 133.333 mls/hr Meropenem 1 gm/ Sodium (Chloride) 100 mls @ 100 mls/hr IVPB Q8 [facility] PRN Reason: Protocol Last Admin: 10/23/17 14:47 Dose: 100 mls/hr Sodium Chloride (Sodium Chloride 0.9%) 1,000 mls @ 75 mls/hr IV .[id number] [facility] Last Admin: 10/23/17 01:23 Dose: Not Given Insulin Aspart (Novolog) 0 unit SC Q6H [facility] PRN Reason: Protocol Last Admin: 10/23/17 12:51 Dose: 3 units Insulin Detemir (Levemir) 15 unit SC Q12 [facility] Last Admin: 10/23/17 12:50 Dose: 15 units Latanoprost (Xalatan Opht) 0 ml OU HS [facility] Last Admin: 10/22/17 21:18 Dose: 2.5 ml Multivitamins/Vitamin C (Multi-Delyn Liquid) 5 ml PO DAILY [facility] Last Admin: 10/23/17 11:26 Dose: Not Given Pantoprazole Sodium (Protonix Inj) 40 mg IVP Q12H [facility] Last Admin: 10/23/17 05:53 Dose: 40 mg Saccharomyces Boulardii (Florastor) 250 mg PO Q12 [facility] Thiamine HCl (Vitamin B1 Tab) 100 mg PO BID [facility] Last Admin: 10/23/17 11:27 Dose: Not Given - Labs Labs: 10/23/17 04:53 10/23/17 04:53 PT 13.0 SECONDS (9.7-12.2) H 10/23/17 04:53 INR 1.2 10/23/17 04:53 APTT 24 SECONDS (21-34) 10/23/17 04:53
--- NOTE | 2017-10-23 18:25 | CP.PCM.PN ---
Subjective - Date & Time of Evaluation Date of Evaluation: 10/23/17 Time of Evaluation: 18:24 - Subjective Subjective: somnolent post op today Objective - Vital Signs/Intake and Output Vital Signs (last 24 hours): Temp Pulse Resp BP Pulse Ox 98.3 F 78 10 L 119/68 97 10/23/17 16:00 10/23/17 18:00 10/23/17 11:20 10/23/17 17:55 10/23/17 18:00 Intake and Output: 10/23/17 10/23/17 06:59 18:59 Intake Total 1275 1722.5 Output Total 981 890 Balance 294 832.5 - Medications Medications: Current Medications Ascorbic Acid (Vitamin C 500 Mg Tab) 500 mg PO DAILY [facility] Last Admin: 10/23/17 11:28 Dose: Not Given Cyanocobalamin (Vitamin B12 1000 Mcg Tab) 1,000 mcg PO DAILY [facility] Last Admin: 10/23/17 11:28 Dose: Not Given Dextrose (Dextrose 50% Inj) 0 ml IV STAT PRN; Protocol PRN Reason: Hypoglycemia Protocol Dextrose (Glutose 15) 0 gm PO ONCE PRN; Protocol PRN Reason: Hypoglycemia Protocol Glucagon (Glucagen Diagnostic Kit) 0 mg IM STAT PRN; Protocol PRN Reason: Hypoglycemia Protocol Valproate Sodium 500 mg/ (Sodium Chloride) 105 mls @ 100 mls/hr IVPB Q12H [facility] Last Admin: 10/23/17 14:47 Dose: 100 mls/hr Vancomycin HCl 1 gm/ Sodium (Chloride) 200 mls @ 133.333 mls/hr IVPB Q12 [facility] PRN Reason: Protocol Last Admin: 10/23/17 11:32 Dose: 133.333 mls/hr Meropenem 1 gm/ Sodium (Chloride) 100 mls @ 100 mls/hr IVPB Q8 [facility] PRN Reason: Protocol Last Admin: 10/23/17 14:47 Dose: 100 mls/hr Sodium Chloride (Sodium Chloride 0.9%) 1,000 mls @ 75 mls/hr IV .[id number] [facility] Last Admin: 10/23/17 17:21 Dose: 75 mls/hr Insulin Aspart (Novolog) 0 unit SC Q6H [facility] PRN Reason: Protocol Last Admin: 10/23/17 18:18 Dose: 3 units Insulin Detemir (Levemir) 15 unit SC Q12 [facility] Last Admin: 10/23/17 12:50 Dose: 15 units Latanoprost (Xalatan Opht) 0 ml OU HS [facility] Last Admin: 10/22/17 21:18 Dose: 2.5 ml Multivitamins/Vitamin C (Multi-Delyn Liquid) 5 ml PO DAILY [facility] Last Admin: 10/23/17 11:26 Dose: Not Given Pantoprazole Sodium (Protonix Inj) 40 mg IVP Q12H [facility] Last Admin: 10/23/17 17:37 Dose: 40 mg Saccharomyces Boulardii (Florastor) 250 mg PO Q12 [facility] Thiamine HCl (Vitamin B1 Tab) 100 mg PO BID [facility] Last Admin: 10/23/17 17:38 Dose: 100 mg - Labs Labs: 10/23/17 04:53 10/23/17 04:53 PT 13.0 SECONDS (9.7-12.2) H 10/23/17 04:53 INR 1.2 10/23/17 04:53 APTT 24 SECONDS (21-34) 10/23/17 04:53 - Constitutional Appears: Non-toxic, No Acute Distress - Head Exam Additional comments: post op scalp - Respiratory Exam Respiratory Exam: Clear to Ausculation Bilateral. absent: NORMAL BREATHING PATTERN - Cardiovascular Exam Cardiovascular Exam: REGULAR RHYTHM, +S1, +S2. absent: Murmur - GI/Abdominal Exam GI & Abdominal Exam: Soft, Normal Bowel Sounds. absent: Tenderness Additional comments: obese - Neurological Exam Neurological Exam: absent: Alert, Awake, Oriented x3 Assessment and Plan - Assessment and Plan (Free Text) Assessment: 66 year old female with PMHx of HTN, HLD, T2DM, and NPH with RELATIONS LIAISON shunt placed in 2014, she underwent 4 RELATIONS LIAISON shunt revisions 02/26/17, 3 during this admission (2017, 10/11/2017 and 10/19/2017). Patient admitted to the ICU for AMS and enlarging ventricles noted on CT Scan. Plan: revised today 10/23 management per neurosurg and ICU History of hydrocephalus 2/2 to NPH
[2017-10-23] MEDS: Saccharomyces Boulardi 250 mg Cap PO SCH (22:35)
[2017-10-23] MEDS: Latanoprost 2.5 ml Opht Soln OU SCH (22:39)
[2017-10-24] MEDS: (Novolog) Insulin Aspart, Recombinant 100 u/ml 10 ml vial SC SCH ×4 (00:30→17:59)
--- NOTE | 2017-10-24 01:57 | PN ---
DATE: 10/23/2017 SUBJECTIVE: The patient again went for surgery today. They did another revision this time that the shunt was put on the left side, and it is a parietal pleural shunt, and they changed the triple-lumen from the left side to the right side. The patient is still very drowsy. The daughter is at the bedside, and she says hopefully she will be better. PHYSICAL EXAMINATION: VITAL SIGNS: T-max is 98.3, pulse 91, blood pressure 178/78, respirations are 20. She was on nasal O2, drowsy. NECK: Supple. LUNGS: Clear. No crackles or rales present. HEART: S1 and S2 are regular. ABDOMEN: Soft, flabby, nontender. EXTREMITIES: Had foot protectors and also beautiful. LABORATORY DATA: Labs are noted. Labs show white count is 7.2, hemoglobin 12.4, hematocrit 36.8, platelet count is 178. Potassium is 3.4, is being supplemented. BUN is 0.5. Micro cultures came out all negative so far blood, urine as well as the CSF is negative for 4 days. She had some fluid drained from her right side when she had the shunt. ASSESSMENT AND PLAN: At this time, we will continue prophylactic antibiotics, vancomycin and meropenem, and hope that she improves and follow the neurosurgeon's evaluation. We will follow. Naga Milton MD
[2017-10-24] MEDS: Valproate 500 MG in Sodium Chloride 0.9% 100 ML IVPB SCH ×2 (02:15→14:16)
[2017-10-24] MEDS: Sodium Chloride 0.9% 1,000 ML IV SCH ×3 (04:30→17:27)
[2017-10-24] MEDS: Meropenem 1 GM in Sodium Chloride 0.9% 100 ML IVPB SCH ×3 (05:30→21:47)
[2017-10-24 06:35] LABS: BASO # 0.1 K/uL (0.0-0.2); BASO % 0.7 % (0.0-2.0); EOS # 0.1 K/uL (0.0-0.7); EOS % 1.6 % (0.0-4.0); HEMOGLOBIN 11.7 g/dL (11.0-16.0); LYMPH # 1.2 K/uL (1.0-4.3); LYMPH % 15.4 % (20.0-40.0); MEAN CORPUSCULAR HEMOGLOBIN 29.2 pg (27.0-31.0); MEAN CORPUSCULAR HGB CONC 33.9 g/dL (33.0-37.0); MEAN PLATELET VOLUME 8.6 fL (7.2-11.7); MONO # 0.5 K/uL (0.0-0.8); MONO % 6.7 % (0.0-10.0); NEUT % 75.6 % (50.0-75.0); RBC 4.02 Mil/uL (3.80-5.20); RED CELL DISTRIBUTION WIDTH 14.7 % (11.5-14.5)
[2017-10-24 06:40] LABS: ALB/GLOB RATIO 1.1 (1.0-2.1); ALT/SGPT 37 U/L (9-52); AST/SGOT 24 U/L (14-36); BLOOD UREA NITROGEN 14 mg/dL (7-17); CALCIUM 8.1 mg/dl (8.6-10.4); GFR AFRICAN-AMERICAN > 60; GFR NON-AFRICAN AMERICAN > 60
[2017-10-24] MEDS ORDERED: Potassium Phosphate 15 MMOLE in Sodium Chloride 0.9% 250 ML IVPB ONE (08:30)
[2017-10-24] MEDS: Saccharomyces Boulardi 250 mg Cap PO SCH ×2 (09:23→22:00)
[2017-10-24] MEDS: Insulin Detemir 100 units/ml Vial (Levemir) SC SCH ×2 (09:23→21:55)
[2017-10-24] MEDS: Multiple Vitamins Oral Solution PO SCH (09:24)
[2017-10-24] MEDS: Vancomycin 1 GM in Sodium Chloride 0.9% 200 ML IVPB SCH ×2 (09:25→21:48)
--- NOTE | 2017-10-24 09:43 | CT ---
PROCEDURE: CT HEAD WITHOUT CONTRAST. HISTORY: AMS COMPARISON: Comparison made with prior CT scan brain 10/21/2017. TECHNIQUE: Axial computed tomography images were obtained through the head/brain without intravenous contrast. Radiation dose: Total exam DLP = 1073.39 mGy-cm. This CT exam was performed using one or more of the following dose reduction techniques: Automated exposure control, adjustment of the mA and/or kV according to patient size, and/or use of iterative reconstruction technique. FINDINGS: HEMORRHAGE: There is small amount of hemorrhage seen layering in the the midportion of both atria/occipital horns related to recent shunt placement. BRAIN: There has been interval placement of a new MANAGER INTERN shunt to which enters a left posterior superior parietal sarina hole, traverses the left parietal lobe extending into the left posterior lateral ventricle. Previously noted right frontal shunt tube has been removed at distal surface along with the right-sided shunt reservoir. Previously noted low-attenuation changes (transependymal edema) in the periventricular white matter most conspicuous and pronounced in the periatrial/perioccipital horn regions improved. Note that there may also be a concomitant component of mild chronic periventricular white matter ischemic changes. VENTRICLES: The ventricles remain dilated though improved from prior study. There is intraventricular air seen in the nondependent portions of the frontal horns as well as anterior aspect of the left temporal horn related to new shunt placement. . CALVARIUM: Calvarium otherwise intact PARANASAL SINUSES: Unremarkable as visualized. No significant inflammatory changes. MASTOID AIR CELLS: Unremarkable as visualized. No inflammatory changes. OTHER FINDINGS: None. IMPRESSION: Interval placement new left posterior superior parietal shunt tube with decrease size of the ventricles. Intraventricular air with small amount of hemorrhage layering within the dependent portion of the atria and occipital horns. Decrease size of the ventricles with improved periventricular white matter changes -transependymal edema.
--- NOTE | 2017-10-24 10:36 | CP.PCM.PN ---
Subjective - Date & Time of Evaluation Date of Evaluation: 10/24/17 Time of Evaluation: 10:33 - Subjective Subjective: opens eyes to voice is following commands YEH well dsg c and d CT : excellent position of new L posterior horn catheter dec vent size pnuemocephalus p improving 100 % O2 obs Objective - Vital Signs/Intake and Output Vital Signs (last 24 hours): Temp Pulse Resp BP Pulse Ox 99.2 F 80 13 107/54 L 100 10/24/17 08:00 10/24/17 09:20 10/24/17 09:20 10/24/17 09:20 10/24/17 09:20 Intake and Output: 10/24/17 10/24/17 06:59 18:59 Intake Total 1520 295 Output Total 0 75 Balance 1520 220 - Medications Medications: Current Medications Ascorbic Acid (Vitamin C 500 Mg Tab) 500 mg PO DAILY [facility] Last Admin: 10/24/17 09:25 Dose: 500 mg Cyanocobalamin (Vitamin B12 1000 Mcg Tab) 1,000 mcg PO DAILY [facility] Last Admin: 10/24/17 09:25 Dose: 1,000 mcg Dextrose (Dextrose 50% Inj) 0 ml IV STAT PRN; Protocol PRN Reason: Hypoglycemia Protocol Dextrose (Glutose 15) 0 gm PO ONCE PRN; Protocol PRN Reason: Hypoglycemia Protocol Glucagon (Glucagen Diagnostic Kit) 0 mg IM STAT PRN; Protocol PRN Reason: Hypoglycemia Protocol Valproate Sodium 500 mg/ (Sodium Chloride) 105 mls @ 100 mls/hr IVPB Q12H [facility] Last Admin: 10/24/17 02:15 Dose: 100 mls/hr Vancomycin HCl 1 gm/ Sodium (Chloride) 200 mls @ 133.333 mls/hr IVPB Q12 [facility] PRN Reason: Protocol Last Admin: 10/24/17 09:25 Dose: 133.333 mls/hr Meropenem 1 gm/ Sodium (Chloride) 100 mls @ 100 mls/hr IVPB Q8 [facility] PRN Reason: Protocol Last Admin: 10/24/17 05:30 Dose: 100 mls/hr Sodium Chloride (Sodium Chloride 0.9%) 1,000 mls @ 75 mls/hr IV .[id number] [facility] Last Admin: 10/24/17 04:30 Dose: Not Given Potassium Phosphate 15 mmole/ (Sodium Chloride) 255 mls @ 42.5 mls/hr IVPB ONCE ONE Stop: 10/24/17 14:29 Last Admin: 10/24/17 09:24 Dose: 42.5 mls/hr Insulin Aspart (Novolog) 0 unit SC Q6H [facility] PRN Reason: Protocol Last Admin: 10/24/17 06:28 Dose: 4 units Insulin Detemir (Levemir) 15 unit SC Q12 [facility] Last Admin: 10/24/17 09:23 Dose: 15 units Latanoprost (Xalatan Opht) 0 ml OU HS [facility] Last Admin: 10/23/17 22:39 Dose: 2.5 ml Multivitamins/Vitamin C (Multi-Delyn Liquid) 5 ml PO DAILY [facility] Last Admin: 10/24/17 09:24 Dose: 5 ml Pantoprazole Sodium (Protonix Inj) 40 mg IVP Q12H [facility] Last Admin: 10/24/17 06:10 Dose: 40 mg Saccharomyces Boulardii (Florastor) 250 mg PO Q12 [facility] Last Admin: 10/24/17 09:23 Dose: 250 mg Thiamine HCl (Vitamin B1 Tab) 100 mg PO BID [facility] Last Admin: 10/24/17 09:28 Dose: 100 mg - Labs Labs: 10/24/17 06:24 10/24/17 06:14 PT 13.0 SECONDS (9.7-12.2) H 10/23/17 04:53 INR 1.2 10/23/17 04:53 APTT 24 SECONDS (21-34) 10/23/17 04:53
[2017-10-24] MEDS ORDERED: Acetaminophen IV 1,000 MG in Premixed IV 1 EA IV ONE (14:11)
--- NOTE | 2017-10-24 14:13 | CP.CCUPN ---
<Ernestine Posadas - Last Filed: 10/24/17 14:09> CCU Subjective - Physician Review Subjective (Free Text): Patient seen and examined at bedside. Patient is s/p 4th shunt revision 10/23. Patient responds to command and painful stimulation. CCU Objective - Vital Signs / Intake & Output Vital Signs (Last 4 hours): Vital Signs Temp Pulse Resp BP Pulse Ox 10/24/17 13:00 87 18 100 10/24/17 12:19 89 16 157/77 H 99 10/24/17 12:00 99.2 F 10/24/17 11:20 93 H 16 123/60 100 10/24/17 11:00 99 H 19 99 10/24/17 10:19 98 H 17 124/61 99 Intake and Output (Last 8hrs): Intake & Output 10/23/17 10/24/17 10/24/17 22:59 06:59 14:59 Intake Total 985.0 930 1063 Output Total 330 0 255 Balance 655.0 930 808 Weight 207 lb 3.752 oz Intake: Intake, IV Amount 810.0 650 818 Right Internal Jugular 610.0 650 650 Right Medial Port 200 168 Internal Jugular Tube Feeding 175 280 245 Output: Urine 330 255 Urethral (Fernandez) 330 255 Stool 0 0 0 - Physical Exam Head: Positive for: Normocephalic Pupils: Positive for: PERRL Extroacular Muscles: Positive for: EOMI Mouth: Positive for: Dry, Other (NGT in place ) Respiratory/Chest: Positive for: Clear to Auscultation. Negative for: Respiratory Distress Cardiovascular: Positive for: Regular Rate and Rhythm Abdomen: Positive for: Normal Bowel Sounds. Negative for: Tenderness, Distention Upper Extremity: Positive for: Normal Inspection, NORMAL PULSES, Neurovascularly Intact, Capillary Refill < 2s Lower Extremity: Positive for: Normal Inspection, NORMAL PULSES, Neurovascularly Intact, Capillary Refill < 2 s Neurological: Positive for: Other (Unable to full assese, Pt Lethargic, Only responding to pain) Skin: Positive for: Warm, Dry, Normal Color Psychiatric: Positive for: Other (Lethargic). Negative for: Alert, Oriented x 3 - Medications Active Medications: Active Medications Generic Name Dose Route Start Last Admin Trade Name Freq PRN Reason Stop Dose Admin Ascorbic Acid 500 mg 10/21/17 12:00 10/24/17 09:25 Vitamin C 500 Mg Tab PO 500 mg DAILY MOLLY Administration Cyanocobalamin 1,000 mcg 10/21/17 12:00 10/24/17 09:25 Vitamin B12 1000 Mcg Tab PO 1,000 mcg DAILY MOLLY Administration Dextrose 0 ml 10/03/17 13:28 Dextrose 50% Inj IV STAT PRN Hypoglycemia Protocol Protocol Dextrose 0 gm 10/03/17 13:28 Glutose 15 PO ONCE PRN Hypoglycemia Protocol Protocol Glucagon 0 mg 10/03/17 13:28 Glucagen Diagnostic Kit IM STAT PRN Hypoglycemia Protocol Protocol Valproate Sodium 500 mg/ 105 mls @ 100 mls/hr 10/11/17 14:03 10/24/17 02:15 Sodium Chloride IVPB 100 mls/hr Q12H MOLLY Administration Vancomycin HCl 1 gm/ Sodium 200 mls @ 133.333 mls/hr 10/20/17 22:00 10/24/17 09:25 Chloride IVPB 133.333 mls/hr Q12 MOLLY Administration Protocol Meropenem 1 gm/ Sodium 100 mls @ 100 mls/hr 10/20/17 22:00 10/24/17 13:19 Chloride IVPB 100 mls/hr Q8 MOLLY Administration Protocol Sodium Chloride 1,000 mls @ 75 mls/hr 10/20/17 20:00 10/24/17 12:17 Sodium Chloride 0.9% IV 75 mls/hr .[id number] MOLLY Administration Potassium Phosphate 15 mmole/ 255 mls @ 42.5 mls/hr 10/24/17 08:30 10/24/17 09:24 Sodium Chloride IVPB 10/24/17 14:29 42.5 mls/hr ONCE ONE Administration Insulin Aspart 0 unit 10/21/17 18:00 10/24/17 12:15 Novolog SC 2 units Q6H MOLLY Administration Protocol Insulin Detemir 15 unit 10/15/17 22:00 10/24/17 09:23 Levemir SC 15 units Q12 MOLLY Administration Latanoprost 0 ml 10/03/17 22:00 10/23/17 22:39 Xalatan Opht OU 2.5 ml HS MOLLY Administration Multivitamins/Vitamin C 5 ml 10/21/17 12:00 10/24/17 09:24 Multi-Delyn Liquid PO 5 ml DAILY MOLLY Administration Pantoprazole Sodium 40 mg 10/20/17 17:30 10/24/17 06:10 Protonix Inj IVP 40 mg Q12H MOLLY Administration Saccharomyces Boulardii 250 mg 10/23/17 22:00 10/24/17 09:23 Florastor PO 250 mg Q12 MOLLY Administration Thiamine HCl 100 mg 10/21/17 12:00 10/24/17 09:28 Vitamin B1 Tab PO 100 mg BID MOLLY Administration - Patient Studies Lab Studies: Microbiology Studies 10/19/17 12:16 Gram Stain - Final Cerebral Spinal Fluid CSF Culture - Final No growth. 10/20/17 19:30 Blood Culture - Preliminary Blood-Thru Central Line NO GROWTH AFTER 3 DAYS 10/20/17 20:00 Blood Culture - Preliminary Blood-Thru Central Line NO GROWTH AFTER 3 DAYS Lab Studies 10/24/17 10/24/17 10/24/17 Range/Units 11:28 06:24 06:14 WBC 8.0 (4.8-10.8) K/uL RBC 4.02 (3.80-5.20) Mil/uL Hgb 11.7 (11.0-16.0) g/dL Hct 34.6 (34.0-47.0) % MCV 86.0 (81.0-99.0) fL MCH 29.2 (27.0-31.0) pg MCHC 33.9 (33.0-37.0) g/dL RDW 14.7 H (11.5-14.5) % Plt Count 204 (130-400) K/uL MPV 8.6 (7.2-11.7) fL Neut % (Auto) 75.6 H (50.0-75.0) % Lymph % (Auto) 15.4 L (20.0-40.0) % [place] % (Auto) 6.7 (0.0-10.0) % Eos % (Auto) 1.6 (0.0-4.0) % Baso % (Auto) 0.7 (0.0-2.0) % Neut # (Auto) 6.0 (1.8-7.0) K/uL Lymph # (Auto) 1.2 (1.0-4.3) K/uL [place] # (Auto) 0.5 (0.0-0.8) K/uL Eos # (Auto) 0.1 (0.0-0.7) K/uL Baso # (Auto) 0.1 (0.0-0.2) K/uL Sodium (132-148) mmol/L Potassium (3.6-5.2) mmol/L Chloride (98-107) mmol/L Carbon Dioxide (22-30) mmol/L Anion Gap (10-20) BUN (7-17) mg/dL Creatinine (0.7-1.2) mg/dL Est GFR ( Amer) Est GFR (Non-Af Amer) POC Glucose (mg/dL) 174 H (65-110) mg/dL Random Glucose (65-105) mg/dL Serum Osmolality 302 H (272-300) mosm/kg Calcium (8.6-10.4) mg/dl Phosphorus (2.5-4.5) mg/dL Magnesium (1.6-2.3) mg/dL Total Bilirubin (0.2-1.3) mg/dL AST (14-36) U/L ALT (9-52) U/L Alkaline Phosphatase (38-126) U/L Total Protein (6.3-8.3) g/dL Albumin (3.5-5.0) g/dL Globulin (2.2-3.9) gm/dL Albumin/Globulin Ratio (1.0-2.1) 10/24/17 10/24/17 10/23/17 Range/Units 06:14 05:53 23:31 WBC (4.8-10.8) K/uL RBC (3.80-5.20) Mil/uL Hgb (11.0-16.0) g/dL Hct (34.0-47.0) % MCV (81.0-99.0) fL MCH (27.0-31.0) pg MCHC (33.0-37.0) g/dL RDW (11.5-14.5) % Plt Count (130-400) K/uL MPV (7.2-11.7) fL Neut % (Auto) (50.0-75.0) % Lymph % (Auto) (20.0-40.0) % [place] % (Auto) (0.0-10.0) % Eos % (Auto) (0.0-4.0) % Baso % (Auto) (0.0-2.0) % Neut # (Auto) (1.8-7.0) K/uL Lymph # (Auto) (1.0-4.3) K/uL [place] # (Auto) (0.0-0.8) K/uL Eos # (Auto) (0.0-0.7) K/uL Baso # (Auto) (0.0-0.2) K/uL Sodium 141 (132-148) mmol/L Potassium 3.6 (3.6-5.2) mmol/L Chloride 103 (98-107) mmol/L Carbon Dioxide 29 (22-30) mmol/L Anion Gap 13 (10-20) BUN 14 (7-17) mg/dL Creatinine 0.6 L (0.7-1.2) mg/dL Est GFR ( Amer) > 60 Est GFR (Non-Af Amer) > 60 POC Glucose (mg/dL) 257 H 192 H (65-110) mg/dL Random Glucose 210 H (65-105) mg/dL Serum Osmolality (272-300) mosm/kg Calcium 8.1 L (8.6-10.4) mg/dl Phosphorus 2.3 L (2.5-4.5) mg/dL Magnesium 1.8 (1.6-2.3) mg/dL Total Bilirubin 0.5 (0.2-1.3) mg/dL AST 24 (14-36) U/L ALT 37 (9-52) U/L Alkaline Phosphatase 64 (38-126) U/L Total Protein 5.6 L (6.3-8.3) g/dL Albumin 3.0 L (3.5-5.0) g/dL Globulin 2.6 (2.2-3.9) gm/dL Albumin/Globulin Ratio 1.1 (1.0-2.1) 10/23/17 Range/Units 17:54 WBC (4.8-10.8) K/uL RBC (3.80-5.20) Mil/uL Hgb (11.0-16.0) g/dL Hct (34.0-47.0) % MCV (81.0-99.0) fL MCH (27.0-31.0) pg MCHC (33.0-37.0) g/dL RDW (11.5-14.5) % Plt Count (130-400) K/uL MPV (7.2-11.7) fL Neut % (Auto) (50.0-75.0) % Lymph % (Auto) (20.0-40.0) % [place] % (Auto) (0.0-10.0) % Eos % (Auto) (0.0-4.0) % Baso % (Auto) (0.0-2.0) % Neut # (Auto) (1.8-7.0) K/uL Lymph # (Auto) (1.0-4.3) K/uL [place] # (Auto) (0.0-0.8) K/uL Eos # (Auto) (0.0-0.7) K/uL Baso # (Auto) (0.0-0.2) K/uL Sodium (132-148) mmol/L Potassium (3.6-5.2) mmol/L Chloride (98-107) mmol/L Carbon Dioxide (22-30) mmol/L Anion Gap (10-20) BUN (7-17) mg/dL Creatinine (0.7-1.2) mg/dL Est GFR ( Amer) Est GFR (Non-Af Amer) POC Glucose (mg/dL) 212 H (65-110) mg/dL Random Glucose (65-105) mg/dL Serum Osmolality (272-300) mosm/kg Calcium (8.6-10.4) mg/dl Phosphorus (2.5-4.5) mg/dL Magnesium (1.6-2.3) mg/dL Total Bilirubin (0.2-1.3) mg/dL AST (14-36) U/L ALT (9-52) U/L Alkaline Phosphatase (38-126) U/L Total Protein (6.3-8.3) g/dL Albumin (3.5-5.0) g/dL Globulin (2.2-3.9) gm/dL Albumin/Globulin Ratio (1.0-2.1) Laboratory Results - last 24 hr 10/23/17 10/23/17 10/24/17 17:54 23:31 05:53 WBC RBC Hgb Hct MCV MCH MCHC RDW Plt Count MPV Neut % (Auto) Lymph % (Auto) [place] % (Auto) Eos % (Auto) Baso % (Auto) Neut # (Auto) Lymph # (Auto) [place] # (Auto) Eos # (Auto) Baso # (Auto) Sodium Potassium Chloride Carbon Dioxide Anion Gap BUN Creatinine Est GFR ( Amer) Est GFR (Non-Af Amer) POC Glucose (mg/dL) 212 H 192 H 257 H Random Glucose Serum Osmolality Calcium Phosphorus Magnesium Total Bilirubin AST ALT Alkaline Phosphatase Total Protein Albumin Globulin Albumin/Globulin Ratio 10/24/17 10/24/17 10/24/17 06:14 06:14 06:24 WBC 8.0 RBC 4.02 Hgb 11.7 Hct 34.6 MCV 86.0 MCH 29.2 MCHC 33.9 RDW 14.7 H Plt Count 204 MPV 8.6 Neut % (Auto) 75.6 H Lymph % (Auto) 15.4 L [place] % (Auto) 6.7 Eos % (Auto) 1.6 Baso % (Auto) 0.7 Neut # (Auto) 6.0 Lymph # (Auto) 1.2 [place] # (Auto) 0.5 Eos # (Auto) 0.1 Baso # (Auto) 0.1 Sodium 141 Potassium 3.6 Chloride 103 Carbon Dioxide 29 Anion Gap 13 BUN 14 Creatinine 0.6 L Est GFR ( Amer) > 60 Est GFR (Non-Af Amer) > 60 POC Glucose (mg/dL) Random Glucose 210 H Serum Osmolality 302 H Calcium 8.1 L Phosphorus 2.3 L Magnesium 1.8 Total Bilirubin 0.5 AST 24 ALT 37 Alkaline Phosphatase 64 Total Protein 5.6 L Albumin 3.0 L Globulin 2.6 Albumin/Globulin Ratio 1.1 10/24/17 11:28 WBC RBC Hgb Hct MCV MCH MCHC RDW Plt Count MPV Neut % (Auto) Lymph % (Auto) [place] % (Auto) Eos % (Auto) Baso % (Auto) Neut # (Auto) Lymph # (Auto) [place] # (Auto) Eos # (Auto) Baso # (Auto) Sodium Potassium Chloride Carbon Dioxide Anion Gap BUN Creatinine Est GFR ( Amer) Est GFR (Non-Af Amer) POC Glucose (mg/dL) 174 H Random Glucose Serum Osmolality Calcium Phosphorus Magnesium Total Bilirubin AST ALT Alkaline Phosphatase Total Protein Albumin Globulin Albumin/Globulin Ratio Fingerstick Blood Sugar Results: 174 Critical Care Progress Note - Nutrition Nutrition: Nutrition Category Date Time Status NPO Diet [DIET] Diets 10/20/17 Dinner Active Assessment/Plan - Assessment and Plan (Free Text) Assessment: Ms. Diaz is a 66 year old female with PMHx of HTN, HLD, T2DM, and NPH with [employer] shunt placed in 2014, she underwent 4 [employer] shunt revisions 02/26/17, 3 during this admission (10/10/2017, 10/11/2017, 10/19/2017, and 10/23/17). Patient admitted to the ICU for AMS and enlarging ventricles noted on CT Scan. S/P revision on - continue to observe in ICU. Plan: Neuro: A: History of hydrocephalus 2/ to NPH ----Neurosurgery Dr Hancock/Ella is consulted ---- ID Dr. Milton consulted - Shunt placed in 2014 - [employer] Shunt repair 02/26/17 - s/p [employer] shunt revision - 3rd this hospital stay (10/10/2017, 10/11/2017, 10/19/2017 , 10/23/2017) - S/P Revision 10/23/17 - placement of left parietal pleural shunt - Repeat Head CT: Interval placement new left posterior superior parietal shunt tube with decrease size of the ventricles. Intraventricular air with small amount of hemorrhage layering within the dependent portion of the atria and occipital horns. Decrease size of the ventricles with improved periventricular white matter changes -transependymal edema. - Continue with 100% O2 - Continue to monitor - Head CT 10/20: Marked dilatation 3rd and lateral ventricles increased from prior study. Findings suggest new shunt malfunction . Chronic white matter changes may represent some combination of transependymal edema and or microvascular ischemic disease. - Pending EEG -keep MAP ~100, ICP 10: CPP >70 -continue IV NS, osmol 305, will increase NA near 145 -keep HOB >30 - Mannitol 25grams given x 1 - Started on vanco Q12 and Meropenem 10/20 - Teague cultures - negative to date Neurology consulted, Dr. Nixon - Continue valproate 500mg IVPB q12h for seizure prophylaxis Cardio: A: Hypertension - Held Amlodipine 5mg PO daily, Metoprolol Tart 12.5mg PO BID A: HLD - Crestor 5 mg po hs - HELD Pulm A: Hx Asthma Endo: A: Diabetes - Accuchecks - Medium Dose insulin sliding scale, Levemir dose of 15 units BID, ISS- low - Held due to current NPO status Prophylaxis - SCDs - Protonix Q12 - Right TLC placed 10/23/[address] Bolaños, Ernestine oPsadas DO, PGY-1 <Vikas Bolaños S - Last Filed: 10/24/17 18:25> CCU Objective - Vital Signs / Intake & Output Vital Signs (Last 4 hours): Vital Signs Temp Pulse Resp BP Pulse Ox 10/24/17 18:19 87 15 156/81 H 99 10/24/17 17:19 85 17 151/68 H 100 10/24/17 16:19 84 19 129/63 100 10/24/17 16:00 99.0 F 10/24/17 15:19 91 H 18 148/62 100 Intake and Output (Last 8hrs): Intake & Output 10/24/17 10/24/17 10/24/17 06:59 14:59 22:59 Intake Total 930 1215 532 Output Total 600 290 140 Balance 330 925 392 Weight 207 lb 3.752 oz Intake: Intake, IV Amount 650 935 392 Right Internal Jugular 650 725 350 Right Medial Port 210 42 Internal Jugular Tube Feeding 280 280 140 Output: Urine 600 290 140 Urethral (Fernandez) 600 290 140 Stool 0 0 - Medications Active Medications: Active Medications Generic Name Dose Route Start Last Admin Trade Name Freq PRN Reason Stop Dose Admin Ascorbic Acid 500 mg 10/21/17 12:00 10/24/17 09:25 Vitamin C 500 Mg Tab PO 500 mg DAILY MOLLY Administration Cyanocobalamin 1,000 mcg 10/21/17 12:00 10/24/17 09:25 Vitamin B12 1000 Mcg Tab PO 1,000 mcg DAILY MOLLY Administration Dextrose 0 ml 10/03/17 13:28 Dextrose 50% Inj IV STAT PRN Hypoglycemia Protocol Protocol Dextrose 0 gm 10/03/17 13:28 Glutose 15 PO ONCE PRN Hypoglycemia Protocol Protocol Glucagon 0 mg 10/03/17 13:28 Glucagen Diagnostic Kit IM STAT PRN Hypoglycemia Protocol Protocol Valproate Sodium 500 mg/ 105 mls @ 100 mls/hr 10/11/17 14:03 10/24/17 14:16 Sodium Chloride IVPB 100 mls/hr Q12H MOLLY Administration Vancomycin HCl 1 gm/ Sodium 200 mls @ 133.333 mls/hr 10/20/17 22:00 10/24/17 09:25 Chloride IVPB 133.333 mls/hr Q12 MOLLY Administration Protocol Meropenem 1 gm/ Sodium 100 mls @ 100 mls/hr 10/20/17 22:00 10/24/17 13:19 Chloride IVPB 100 mls/hr Q8 MOLLY Administration Protocol Sodium Chloride 1,000 mls @ 75 mls/hr 10/20/17 20:00 10/24/17 17:27 Sodium Chloride 0.9% IV Not Given .[id number] MOLLY Insulin Aspart 0 unit 10/21/17 18:00 10/24/17 17:59 Novolog SC 2 units Q6H MOLLY Administration Protocol Insulin Detemir 15 unit 10/15/17 22:00 10/24/17 09:23 Levemir SC 15 units Q12 MOLLY Administration Latanoprost 0 ml 10/03/17 22:00 10/23/17 22:39 Xalatan Opht OU 2.5 ml HS MOLLY Administration Multivitamins/Vitamin C 5 ml 10/21/17 12:00 10/24/17 09:24 Multi-Delyn Liquid PO 5 ml DAILY MOLLY Administration Pantoprazole Sodium 40 mg 10/20/17 17:30 10/24/17 18:00 Protonix Inj IVP 40 mg Q12H MOLLY Administration Saccharomyces Boulardii 250 mg 10/23/17 22:00 10/24/17 09:23 Florastor PO 250 mg Q12 MOLLY Administration Thiamine HCl 100 mg 10/21/17 12:00 10/24/17 18:00 Vitamin B1 Tab PO 100 mg BID MOLLY Administration - Patient Studies Lab Studies: Microbiology Studies 10/19/17 12:16 Gram Stain - Final Cerebral Spinal Fluid CSF Culture - Final No growth. 10/20/17 19:30 Blood Culture - Preliminary Blood-Thru Central Line NO GROWTH AFTER 3 DAYS 10/20/17 20:00 Blood Culture - Preliminary Blood-Thru Central Line NO GROWTH AFTER 3 DAYS Lab Studies 10/24/17 10/24/17 10/24/17 Range/Units 17:37 11:28 06:24 WBC 8.0 (4.8-10.8) K/uL RBC 4.02 (3.80-5.20) Mil/uL Hgb 11.7 (11.0-16.0) g/dL Hct 34.6 (34.0-47.0) % MCV 86.0 (81.0-99.0) fL MCH 29.2 (27.0-31.0) pg MCHC 33.9 (33.0-37.0) g/dL RDW 14.7 H (11.5-14.5) % Plt Count 204 (130-400) K/uL MPV 8.6 (7.2-11.7) fL Neut % (Auto) 75.6 H (50.0-75.0) % Lymph % (Auto) 15.4 L (20.0-40.0) % [place] % (Auto) 6.7 (0.0-10.0) % Eos % (Auto) 1.6 (0.0-4.0) % Baso % (Auto) 0.7 (0.0-2.0) % Neut # (Auto) 6.0 (1.8-7.0) K/uL Lymph # (Auto) 1.2 (1.0-4.3) K/uL [place] # (Auto) 0.5 (0.0-0.8) K/uL Eos # (Auto) 0.1 (0.0-0.7) K/uL Baso # (Auto) 0.1 (0.0-0.2) K/uL Sodium (132-148) mmol/L Potassium (3.6-5.2) mmol/L Chloride (98-107) mmol/L Carbon Dioxide (22-30) mmol/L Anion Gap (10-20) BUN (7-17) mg/dL Creatinine (0.7-1.2) mg/dL Est GFR ( Amer) Est GFR (Non-Af Amer) POC Glucose (mg/dL) 187 H 174 H (65-110) mg/dL Random Glucose (65-105) mg/dL Serum Osmolality (272-300) mosm/kg Calcium (8.6-10.4) mg/dl Phosphorus (2.5-4.5) mg/dL Magnesium (1.6-2.3) mg/dL Total Bilirubin (0.2-1.3) mg/dL AST (14-36) U/L ALT (9-52) U/L Alkaline Phosphatase (38-126) U/L Total Protein (6.3-8.3) g/dL Albumin (3.5-5.0) g/dL Globulin (2.2-3.9) gm/dL Albumin/Globulin Ratio (1.0-2.1) 10/24/17 10/24/17 10/24/17 Range/Units 06:14 06:14 05:53 WBC (4.8-10.8) K/uL RBC (3.80-5.20) Mil/uL Hgb (11.0-16.0) g/dL Hct (34.0-47.0) % MCV (81.0-99.0) fL MCH (27.0-31.0) pg MCHC (33.0-37.0) g/dL RDW (11.5-14.5) % Plt Count (130-400) K/uL MPV (7.2-11.7) fL Neut % (Auto) (50.0-75.0) % Lymph % (Auto) (20.0-40.0) % [place] % (Auto) (0.0-10.0) % Eos % (Auto) (0.0-4.0) % Baso % (Auto) (0.0-2.0) % Neut # (Auto) (1.8-7.0) K/uL Lymph # (Auto) (1.0-4.3) K/uL [place] # (Auto) (0.0-0.8) K/uL Eos # (Auto) (0.0-0.7) K/uL Baso # (Auto) (0.0-0.2) K/uL Sodium 141 (132-148) mmol/L Potassium 3.6 (3.6-5.2) mmol/L Chloride 103 (98-107) mmol/L Carbon Dioxide 29 (22-30) mmol/L Anion Gap 13 (10-20) BUN 14 (7-17) mg/dL Creatinine 0.6 L (0.7-1.2) mg/dL Est GFR ( Amer) > 60 Est GFR (Non-Af Amer) > 60 POC Glucose (mg/dL) 257 H (65-110) mg/dL Random Glucose 210 H (65-105) mg/dL Serum Osmolality 302 H (272-300) mosm/kg Calcium 8.1 L (8.6-10.4) mg/dl Phosphorus 2.3 L (2.5-4.5) mg/dL Magnesium 1.8 (1.6-2.3) mg/dL Total Bilirubin 0.5 (0.2-1.3) mg/dL AST 24 (14-36) U/L ALT 37 (9-52) U/L Alkaline Phosphatase 64 (38-126) U/L Total Protein 5.6 L (6.3-8.3) g/dL Albumin 3.0 L (3.5-5.0) g/dL Globulin 2.6 (2.2-3.9) gm/dL Albumin/Globulin Ratio 1.1 (1.0-2.1) 10/23/17 10/23/17 Range/Units 23:31 17:54 WBC (4.8-10.8) K/uL RBC (3.80-5.20) Mil/uL Hgb (11.0-16.0) g/dL Hct (34.0-47.0) % MCV (81.0-99.0) fL MCH (27.0-31.0) pg MCHC (33.0-37.0) g/dL RDW (11.5-14.5) % Plt Count (130-400) K/uL MPV (7.2-11.7) fL Neut % (Auto) (50.0-75.0) % Lymph % (Auto) (20.0-40.0) % [place] % (Auto) (0.0-10.0) % Eos % (Auto) (0.0-4.0) % Baso % (Auto) (0.0-2.0) % Neut # (Auto) (1.8-7.0) K/uL Lymph # (Auto) (1.0-4.3) K/uL [place] # (Auto) (0.0-0.8) K/uL Eos # (Auto) (0.0-0.7) K/uL Baso # (Auto) (0.0-0.2) K/uL Sodium (132-148) mmol/L Potassium (3.6-5.2) mmol/L Chloride (98-107) mmol/L Carbon Dioxide (22-30) mmol/L Anion Gap (10-20) BUN (7-17) mg/dL Creatinine (0.7-1.2) mg/dL Est GFR ( Amer) Est GFR (Non-Af Amer) POC Glucose (mg/dL) 192 H 212 H (65-110) mg/dL Random Glucose (65-105) mg/dL Serum Osmolality (272-300) mosm/kg Calcium (8.6-10.4) mg/dl Phosphorus (2.5-4.5) mg/dL Magnesium (1.6-2.3) mg/dL Total Bilirubin (0.2-1.3) mg/dL AST (14-36) U/L ALT (9-52) U/L Alkaline Phosphatase (38-126) U/L Total Protein (6.3-8.3) g/dL Albumin (3.5-5.0) g/dL Globulin (2.2-3.9) gm/dL Albumin/Globulin Ratio (1.0-2.1) Laboratory Results - last 24 hr 10/23/17 10/23/17 10/24/17 17:54 23:31 05:53 WBC RBC Hgb Hct MCV MCH MCHC RDW Plt Count MPV Neut % (Auto) Lymph % (Auto) [place] % (Auto) Eos % (Auto) Baso % (Auto) Neut # (Auto) Lymph # (Auto) [place] # (Auto) Eos # (Auto) Baso # (Auto) Sodium Potassium Chloride Carbon Dioxide Anion Gap BUN Creatinine Est GFR ( Amer) Est GFR (Non-Af Amer) POC Glucose (mg/dL) 212 H 192 H 257 H Random Glucose Serum Osmolality Calcium Phosphorus Magnesium Total Bilirubin AST ALT Alkaline Phosphatase Total Protein Albumin Globulin Albumin/Globulin Ratio 10/24/17 10/24/17 10/24/17 06:14 06:14 06:24 WBC 8.0 RBC 4.02 Hgb 11.7 Hct 34.6 MCV 86.0 MCH 29.2 MCHC 33.9 RDW 14.7 H Plt Count 204 MPV 8.6 Neut % (Auto) 75.6 H Lymph % (Auto) 15.4 L [place] % (Auto) 6.7 Eos % (Auto) 1.6 Baso % (Auto) 0.7 Neut # (Auto) 6.0 Lymph # (Auto) 1.2 [place] # (Auto) 0.5 Eos # (Auto) 0.1 Baso # (Auto) 0.1 Sodium 141 Potassium 3.6 Chloride 103 Carbon Dioxide 29 Anion Gap 13 BUN 14 Creatinine 0.6 L Est GFR ( Amer) > 60 Est GFR (Non-Af Amer) > 60 POC Glucose (mg/dL) Random Glucose 210 H Serum Osmolality 302 H Calcium 8.1 L Phosphorus 2.3 L Magnesium 1.8 Total Bilirubin 0.5 AST 24 ALT 37 Alkaline Phosphatase 64 Total Protein 5.6 L Albumin 3.0 L Globulin 2.6 Albumin/Globulin Ratio 1.1 10/24/17 10/24/17 11:28 17:37 WBC RBC Hgb Hct MCV MCH MCHC RDW Plt Count MPV Neut % (Auto) Lymph % (Auto) [place] % (Auto) Eos % (Auto) Baso % (Auto) Neut # (Auto) Lymph # (Auto) [place] # (Auto) Eos # (Auto) Baso # (Auto) Sodium Potassium Chloride Carbon Dioxide Anion Gap BUN Creatinine Est GFR ( Amer) Est GFR (Non-Af Amer) POC Glucose (mg/dL) 174 H 187 H Random Glucose Serum Osmolality Calcium Phosphorus Magnesium Total Bilirubin AST ALT Alkaline Phosphatase Total Protein Albumin Globulin Albumin/Globulin Ratio Critical Care Progress Note - Nutrition Nutrition: Nutrition Category Date Time Status NPO Diet [DIET] Diets 10/20/17 Dinner Active Attending/Attestation - Attestation I have personally seen and examined this patient.: Yes I have fully participated in the care of the patient.: Yes I have reviewed all pertinent clinical information: Yes Notes (Text): 10/24/17 18:25 Patient seen and examined in the intensive care unit. Assessment and plan as per resident note
--- NOTE | 2017-10-24 18:28 | CP.PCM.CON ---
History of Present Illness - History of Present Illness History of Present Illness: patient observed in bed, speaking to her , with low volume appropriate speech. She has now right sided neglect. Pupils are 3mm reactive bilaterally, and she is following commands. she is not moving her legs spontaneously, nor is she having any focal seizures. EEG results: shows slower than normal posterior dominant rhythm but no seizures. CT head results: shows bilteral frontal horn pneumocephalus and shunt in place. Past Patient History - Infectious Disease Hx of Infectious Diseases: None - Past Medical History & Family History Past Medical History?: Yes - Past Social History Smoking Status: Never Smoked - CARDIAC Hx Hypercholesterolemia: Yes Hx Hypertension: Yes - PULMONARY Hx Asthma: Yes - NEUROLOGICAL Hx Neurological Disorder: Yes Hx Vertigo: Yes Other/Comment: Hydrocephalus with Shunt - ENDOCRINE/METABOLIC Hx Diabetes Mellitus Type 2: Yes - MUSCULOSKELETAL/RHEUMATOLOGICAL Hx Musculoskeletal Disorders: Yes Hx Falls: Yes - PSYCHIATRIC Hx Substance Use: No - SURGICAL HISTORY Hx Surgeries: Yes Other/Comment: Shunt for Hydrocephalus - ANESTHESIA Hx Anesthesia: Yes Hx Anesthesia Reactions: No Meds Home Medications: Home Medication List Medication Instructions Recorded Confirmed Type Furosemide [Lasix] 20 mg PO BID #14 tablet 10/04/17 Rx Allergies/Adverse Reactions: Allergies Allergy/AdvReac Type Severity Reaction Status Date / Time No Known Allergies Allergy Verified 12/08/15 16:19 - Medications Medications: Current Medications Ascorbic Acid (Vitamin C 500 Mg Tab) 500 mg PO DAILY [facility] Last Admin: 10/24/17 09:25 Dose: 500 mg Cyanocobalamin (Vitamin B12 1000 Mcg Tab) 1,000 mcg PO DAILY [facility] Last Admin: 10/24/17 09:25 Dose: 1,000 mcg Dextrose (Dextrose 50% Inj) 0 ml IV STAT PRN; Protocol PRN Reason: Hypoglycemia Protocol Dextrose (Glutose 15) 0 gm PO ONCE PRN; Protocol PRN Reason: Hypoglycemia Protocol Glucagon (Glucagen Diagnostic Kit) 0 mg IM STAT PRN; Protocol PRN Reason: Hypoglycemia Protocol Valproate Sodium 500 mg/ (Sodium Chloride) 105 mls @ 100 mls/hr IVPB Q12H [facility] Last Admin: 10/24/17 14:16 Dose: 100 mls/hr Vancomycin HCl 1 gm/ Sodium (Chloride) 200 mls @ 133.333 mls/hr IVPB Q12 [facility] PRN Reason: Protocol Last Admin: 06/19/18 09:25 Dose: 133.333 mls/hr Meropenem 1 gm/ Sodium (Chloride) 100 mls @ 100 mls/hr IVPB Q8 [facility] PRN Reason: Protocol Last Admin: 10/24/17 13:19 Dose: 100 mls/hr Sodium Chloride (Sodium Chloride 0.9%) 1,000 mls @ 75 mls/hr IV .[id number] [facility] Last Admin: 10/24/17 17:27 Dose: Not Given Insulin Aspart (Novolog) 0 unit SC Q6H [facility] PRN Reason: Protocol Last Admin: 10/24/17 17:59 Dose: 2 units Insulin Detemir (Levemir) 15 unit SC Q12 [facility] Last Admin: 10/24/17 09:23 Dose: 15 units Latanoprost (Xalatan Opht) 0 ml OU HS [facility] Last Admin: 10/23/17 22:39 Dose: 2.5 ml Multivitamins/Vitamin C (Multi-Delyn Liquid) 5 ml PO DAILY [facility] Last Admin: 10/24/17 09:24 Dose: 5 ml Pantoprazole Sodium (Protonix Inj) 40 mg IVP Q12H [facility] Last Admin: 10/24/17 18:00 Dose: 40 mg Saccharomyces Boulardii (Florastor) 250 mg PO Q12 [facility] Last Admin: 10/24/17 09:23 Dose: 250 mg Thiamine HCl (Vitamin B1 Tab) 100 mg PO BID [facility] Last Admin: 10/24/17 18:00 Dose: 100 mg Results - Vital Signs Recent Vital Signs: Last Vital Signs Temp 99.0 F 10/24/17 16:00 Pulse 87 10/24/17 18:19 Resp 15 10/24/17 18:19 BP 156/81 H 10/24/17 18:19 Pulse Ox 99 10/24/17 18:19 - Labs Result Diagrams: 10/24/17 06:24 10/24/17 06:14 Labs: Laboratory Results - last 24 hr 10/23/17 10/23/17 10/24/17 17:54 23:31 05:53 WBC RBC Hgb Hct MCV MCH MCHC RDW Plt Count MPV Neut % (Auto) Lymph % (Auto) [place] % (Auto) Eos % (Auto) Baso % (Auto) Neut # (Auto) Lymph # (Auto) [place] # (Auto) Eos # (Auto) Baso # (Auto) Sodium Potassium Chloride Carbon Dioxide Anion Gap BUN Creatinine Est GFR ( Amer) Est GFR (Non-Af Amer) POC Glucose (mg/dL) 212 H 192 H 257 H Random Glucose Serum Osmolality Calcium Phosphorus Magnesium Total Bilirubin AST ALT Alkaline Phosphatase Total Protein Albumin Globulin Albumin/Globulin Ratio 10/24/17 10/24/17 10/24/17 06:14 06:14 06:24 WBC 8.0 RBC 4.02 Hgb 11.7 Hct 34.6 MCV 86.0 MCH 29.2 MCHC 33.9 RDW 14.7 H Plt Count 204 MPV 8.6 Neut % (Auto) 75.6 H Lymph % (Auto) 15.4 L [place] % (Auto) 6.7 Eos % (Auto) 1.6 Baso % (Auto) 0.7 Neut # (Auto) 6.0 Lymph # (Auto) 1.2 [place] # (Auto) 0.5 Eos # (Auto) 0.1 Baso # (Auto) 0.1 Sodium 141 Potassium 3.6 Chloride 103 Carbon Dioxide 29 Anion Gap 13 BUN 14 Creatinine 0.6 L Est GFR ( Amer) > 60 Est GFR (Non-Af Amer) > 60 POC Glucose (mg/dL) Random Glucose 210 H Serum Osmolality 302 H Calcium 8.1 L Phosphorus 2.3 L Magnesium 1.8 Total Bilirubin 0.5 AST 24 ALT 37 Alkaline Phosphatase 64 Total Protein 5.6 L Albumin 3.0 L Globulin 2.6 Albumin/Globulin Ratio 1.1 10/24/17 10/24/17 11:28 17:37 WBC RBC Hgb Hct MCV MCH MCHC RDW Plt Count MPV Neut % (Auto) Lymph % (Auto) [place] % (Auto) Eos % (Auto) Baso % (Auto) Neut # (Auto) Lymph # (Auto) [place] # (Auto) Eos # (Auto) Baso # (Auto) Sodium Potassium Chloride Carbon Dioxide Anion Gap BUN Creatinine Est GFR ( Amer) Est GFR (Non-Af Amer) POC Glucose (mg/dL) 174 H 187 H Random Glucose Serum Osmolality Calcium Phosphorus Magnesium Total Bilirubin AST ALT Alkaline Phosphatase Total Protein Albumin Globulin Albumin/Globulin Ratio Assessment & Plan - Assessment and Plan (Free Text) Assessment: patient with multiple shunt revisions, now stable and improving neurologically. Plan: 1. appreciate neurosurgical intervention. 2. Neuro checks. Our team will follow. Thank you Dr. jensen
--- NOTE | 2017-10-24 18:57 | CP.PCM.PN ---
Subjective - Date & Time of Evaluation Date of Evaluation: 10/24/17 Time of Evaluation: 18:56 - Subjective Subjective: somnolent now extubated Objective - Vital Signs/Intake and Output Vital Signs (last 24 hours): Temp Pulse Resp BP Pulse Ox 99.0 F 87 15 156/81 H 99 10/24/17 16:00 10/24/17 18:19 18 18:19 10/24/17 18:19 10/24/17 18:19 Intake and Output: 10/24/17 10/24/17 06:59 18:59 Intake Total 1520 1747 Output Total 600 430 Balance 920 1317 - Medications Medications: Current Medications Ascorbic Acid (Vitamin C 500 Mg Tab) 500 mg PO DAILY [facility] Last Admin: 10/24/17 09:25 Dose: 500 mg Cyanocobalamin (Vitamin B12 1000 Mcg Tab) 1,000 mcg PO DAILY [facility] Last Admin: 10/24/17 09:25 Dose: 1,000 mcg Dextrose (Dextrose 50% Inj) 0 ml IV STAT PRN; Protocol PRN Reason: Hypoglycemia Protocol Dextrose (Glutose 15) 0 gm PO ONCE PRN; Protocol PRN Reason: Hypoglycemia Protocol Glucagon (Glucagen Diagnostic Kit) 0 mg IM STAT PRN; Protocol PRN Reason: Hypoglycemia Protocol Valproate Sodium 500 mg/ (Sodium Chloride) 105 mls @ 100 mls/hr IVPB Q12H [facility] Last Admin: 10/24/17 14:16 Dose: 100 mls/hr Vancomycin HCl 1 gm/ Sodium (Chloride) 200 mls @ 133.333 mls/hr IVPB Q12 [facility] PRN Reason: Protocol Last Admin: 10/24/17 09:25 Dose: 133.333 mls/hr Meropenem 1 gm/ Sodium (Chloride) 100 mls @ 100 mls/hr IVPB Q8 [facility] PRN Reason: Protocol Last Admin: 10/24/17 13:19 Dose: 100 mls/hr Sodium Chloride (Sodium Chloride 0.9%) 1,000 mls @ 75 mls/hr IV .[id number] [facility] Last Admin: 10/24/17 17:27 Dose: Not Given Insulin Aspart (Novolog) 0 unit SC Q6H [facility] PRN Reason: Protocol Last Admin: 10/24/17 17:59 Dose: 2 units Insulin Detemir (Levemir) 15 unit SC Q12 [facility] Last Admin: 10/24/17 09:23 Dose: 15 units Latanoprost (Xalatan Opht) 0 ml OU HS [facility] Last Admin: 10/23/17 22:39 Dose: 2.5 ml Multivitamins/Vitamin C (Multi-Delyn Liquid) 5 ml PO DAILY [facility] Last Admin: 10/24/17 09:24 Dose: 5 ml Pantoprazole Sodium (Protonix Inj) 40 mg IVP Q12H [facility] Last Admin: 10/24/17 18:00 Dose: 40 mg Saccharomyces Boulardii (Florastor) 250 mg PO Q12 [facility] Last Admin: 10/24/17 09:23 Dose: 250 mg Thiamine HCl (Vitamin B1 Tab) 100 mg PO BID [facility] Last Admin: 10/24/17 18:00 Dose: 100 mg - Labs Labs: 10/24/17 06:24 10/24/17 06:14 PT 13.0 SECONDS (9.7-12.2) H 10/23/17 04:53 INR 1.2 10/23/17 04:53 APTT 24 SECONDS (21-34) 10/23/17 04:53 - Head Exam Head Exam: absent: ATRAUMATIC Additional comments: scalp dressings sarina holes - ENT Exam ENT Exam: Mucous Membranes Dry - Respiratory Exam Respiratory Exam: NORMAL BREATHING PATTERN. absent: Clear to Ausculation Bilateral, Respiratory Distress - Cardiovascular Exam Cardiovascular Exam: REGULAR RHYTHM, +S1, +S2 - GI/Abdominal Exam GI & Abdominal Exam: Soft. absent: Tenderness Additional comments: obese - Neurological Exam Neurological Exam: absent: Alert, Awake, Oriented x3 - Psychiatric Exam Psychiatric exam: absent: Normal Affect
--- NOTE | 2017-10-24 20:42 | CP.PCM.PN ---
Subjective - Date & Time of Evaluation Date of Evaluation: 10/24/17 Time of Evaluation: 03:00 - Subjective Subjective: dictated Objective - Vital Signs/Intake and Output Vital Signs (last 24 hours): Temp Pulse Resp BP Pulse Ox 99.0 F 86 18 159/77 H 100 10/24/17 16:00 10/24/17 19:19 18 19:19 18 19:19 10/24/17 19:19 Intake and Output: 10/24/17 10/25/17 18:59 06:59 Intake Total 1747 110 Output Total 430 Balance 1317 110 - Medications Medications: Current Medications Ascorbic Acid (Vitamin C 500 Mg Tab) 500 mg PO DAILY [facility] Last Admin: 10/24/17 09:25 Dose: 500 mg Cyanocobalamin (Vitamin B12 1000 Mcg Tab) 1,000 mcg PO DAILY [facility] Last Admin: 10/24/17 09:25 Dose: 1,000 mcg Dextrose (Dextrose 50% Inj) 0 ml IV STAT PRN; Protocol PRN Reason: Hypoglycemia Protocol Dextrose (Glutose 15) 0 gm PO ONCE PRN; Protocol PRN Reason: Hypoglycemia Protocol Glucagon (Glucagen Diagnostic Kit) 0 mg IM STAT PRN; Protocol PRN Reason: Hypoglycemia Protocol Valproate Sodium 500 mg/ (Sodium Chloride) 105 mls @ 100 mls/hr IVPB Q12H [facility] Last Admin: 10/24/17 14:16 Dose: 100 mls/hr Vancomycin HCl 1 gm/ Sodium (Chloride) 200 mls @ 133.333 mls/hr IVPB Q12 [facility] PRN Reason: Protocol Last Admin: 10/24/17 09:25 Dose: 133.333 mls/hr Meropenem 1 gm/ Sodium (Chloride) 100 mls @ 100 mls/hr IVPB Q8 [facility] PRN Reason: Protocol Last Admin: 10/24/17 13:19 Dose: 100 mls/hr Sodium Chloride (Sodium Chloride 0.9%) 1,000 mls @ 75 mls/hr IV .[id number] [facility] Last Admin: 10/24/17 17:27 Dose: Not Given Insulin Aspart (Novolog) 0 unit SC Q6H [facility] PRN Reason: Protocol Last Admin: 10/24/17 17:59 Dose: 2 units Insulin Detemir (Levemir) 15 unit SC Q12 [facility] Last Admin: 10/24/17 09:23 Dose: 15 units Latanoprost (Xalatan Opht) 0 ml OU HS [facility] Last Admin: 10/23/17 22:39 Dose: 2.5 ml Multivitamins/Vitamin C (Multi-Delyn Liquid) 5 ml PO DAILY [facility] Last Admin: 10/24/17 09:24 Dose: 5 ml Pantoprazole Sodium (Protonix Inj) 40 mg IVP Q12H [facility] Last Admin: 10/24/17 18:00 Dose: 40 mg Saccharomyces Boulardii (Florastor) 250 mg PO Q12 [facility] Last Admin: 10/24/17 09:23 Dose: 250 mg Thiamine HCl (Vitamin B1 Tab) 100 mg PO BID [facility] Last Admin: 10/24/17 18:00 Dose: 100 mg - Labs Labs: 10/24/17 06:24 10/24/17 06:14 PT 13.0 SECONDS (9.7-12.2) H 10/23/17 04:53 INR 1.2 10/23/17 04:53 APTT 24 SECONDS (21-34) 10/23/17 04:53
[2017-10-24] MEDS: Latanoprost 2.5 ml Opht Soln OU SCH (21:57)
[2017-10-25] MEDS: Valproate 500 MG in Sodium Chloride 0.9% 100 ML IVPB SCH ×2 (02:06→14:23)
--- NOTE | 2017-10-25 02:27 | PN ---
DATE: 10/24/2017 SUBJECTIVE: The patient was seen today. She was pretty lethargic, on a nonrebreather mask. I was told that there is some air in the brain. She is on high oxygen to dissolve it from, requested by the neurosurgeon. PHYSICAL EXAMINATION: VITAL SIGNS: T-max is 99 today, pulse 84, blood pressure 151/68, respirations are 19. GENERAL: The patient is drowsy. She has dressing on the scalp, and she is status post fourth surgery on her brain. NECK: Supple. LUNGS: Clear. HEART: S1 and S2 are regular. ABDOMEN: Soft, nontender. EXTREMITIES: Have Venodyne boots on. LABORATORY DATA: Labs are noted. Labs show white count is 8, hemoglobin 11.7, hematocrit 34.6, platelets are 204. Sodium is 141, potassium 3.6, chloride is 103, CO2 is 29, BUN is 13, creatinine is 0.6. Blood cultures are negative. All the cultures from CSF also are negative. The report of the head CT which was done yesterday shows interval placement of new left posterior-superior parietal shunt tube with decreased size of the ventricle, intraventricular air with small amount of hemorrhage, layering within the dependent portion of the atria and occipital horn, decreased size of the ventricle with improved periventricular white matter changes, transependymal edema. ASSESSMENT AND PLAN: The patient post neurosurgery has been followed by Critical Care as well as Neurosurgery and is on prophylactic antibiotics at this time, waiting for her mental status to improve, and she is also being followed by the neurologist. Naga Milton MD
[2017-10-25] MEDS: Meropenem 1 GM in Sodium Chloride 0.9% 100 ML IVPB SCH ×3 (05:07→21:16)
[2017-10-25] MEDS: (Novolog) Insulin Aspart, Recombinant 100 u/ml 10 ml vial SC SCH ×5 (05:08→23:58)
[2017-10-25 06:09] LABS: BASO % 0.7 % (0.0-2.0); EOS # 0.1 K/uL (0.0-0.7); EOS % 1.4 % (0.0-4.0); HEMOGLOBIN 11.4 g/dL (11.0-16.0); LYMPH # 1.8 K/uL (1.0-4.3); LYMPH % 24.7 % (20.0-40.0); MEAN CELL VOLUME 86.5 fL (81.0-99.0); MEAN CORPUSCULAR HEMOGLOBIN 29.4 pg (27.0-31.0); MEAN CORPUSCULAR HGB CONC 33.9 g/dL (33.0-37.0); MEAN PLATELET VOLUME 8.6 fL (7.2-11.7); MONO # 0.6 K/uL (0.0-0.8); MONO % 7.7 % (0.0-10.0); NEUT # 4.7 K/uL (1.8-7.0); NEUT % 65.5 % (50.0-75.0); RBC 3.87 Mil/uL (3.80-5.20); RED CELL DISTRIBUTION WIDTH 14.5 % (11.5-14.5); WHITE BLOOD COUNT 7.2 K/uL (4.8-10.8)
[2017-10-25] MEDS: Sodium Chloride 0.9% 1,000 ML IV SCH (06:24)
--- NOTE | 2017-10-25 06:25 | OP ---
PROCEDURE DATE: 10/23/2017 PREOPERATIVE DIAGNOSIS: Failed ventriculoatrial shunt. POSTOPERATIVE DIAGNOSIS: Failed ventriculoatrial shunt. PROCEDURE: Placement of left parietal ventriculopleural shunt, removal of old VA shunt. SURGEON: Fer Hancock MD CO-SURGEON: Padmaja Monroe MD ANESTHESIA: General endotracheal. ESTIMATED BLOOD LOSS: 20 mL. COMPLICATIONS: None. JUSTIFICATION: The patient is status post unfortunately multiple revisions and failures of a ventricular shunting system. She is immediately status post failure of a VA shunt on the right side last week. She had her system externalized and now brought to the OR for placement of an entirely new shunt on the left side into the pleural space. This was discussed with the family at length. Potential risks, complications, chance of success delineated. They understood all the above and agreed to proceed. DESCRIPTION OF PROCEDURE: The patient was intubated and anesthetized, placed on the OR table in supine position. Head placed on a donut, turned maximally towards the right. The entire scalp, left neck, chest, and the abdomen were all scrubbed, painted, and draped. Initially, Dr. Monroe actually removed the right-sided VA shunt and placed an internal jugular venous access instead, and then we then removed the left-sided central line as the patient had. After prepping and draping, I opened a small curvilinear incision at reach point 3 cm up and back from the top of her left pinna. Product Marketing Director was used to make 1 sarina hole at reach point. A pocket was created with a Mcgee scissors for the valve assembly to fit the inferior portion of the valve. At this point, Dr. Monroe opened up the left side of her chest lateral to her breast and obtained access into the pleural space. We then passed a peritoneal catheter required because of her body habitus of the angulations. Through intermediate incisions, we passed the distal catheter thus from the cranial wound down to the chest wound and flushed it through. I then hooked up a ventricular valve and I previously set under pressure setting of 1.5 hooked that up to the distal catheter and stitched in place with silk tie. At this point, I passed a ventricular catheter using the standard landmark. I encountered clear CSF under high pressure on the first pass. I then passed a little bit more of the catheter into the ventricular system and cardiac. It was draining very nicely. I then connected it to the valve and stitched in place with a silk tie. Then, we gently tucked the distal catheter through the chest wound to have the valve reservoir assembly seated in the previously created pocket. At this point, I tested the valve and it pumped and refilled very nicely. The wound was irrigated with antibiotic solution. I placed a couple of tacking sutures to keep the valve set to the periosteum. The galea was closed using Vicryl. The skin was closed with clayton. At this point, concurrently, Dr. Monroe closed the intermediate incisions and the chest incision. Lastly, I then removed the previous right frontal catheter as well as the valve and the remaining portion of the distal catheter wrap system. This wound was copiously irrigated with antibiotic solution and then closed with Vicryl and clayton. The patient was then easily extubated, was brought directly back to the ICU in stable condition. All counts were correct. No complications. Fer Hancock MD
--- NOTE | 2017-10-25 06:34 | CP.PCM.PN ---
Subjective - Date & Time of Evaluation Date of Evaluation: 10/25/17 Time of Evaluation: 06:33 - Subjective Subjective: Ms. Diaz was seen and examined at the bedside in ICU. She is awake,but confused. She thinks she is in a latter-day and unable to state other spheres such as time and place. Her pupils sluggish with 3 mm size bilaterally, however, the right eye does not fully move to the lateral area. She is able to use non- verbal cues for communication such as nodding or shaking her head and whispers few incomprehensible words. She is able to follow some commands such as squeezing her right arm moving her left upper extremity and bilateral lower extremities. She has the right parietal area dressing intact. There was no untoward events overnight. Objective - Vital Signs/Intake and Output Vital Signs (last 24 hours): Temp Pulse Resp BP Pulse Ox 98.2 F 81 15 118/52 L 100 10/25/17 04:00 10/25/17 06:00 10/25/17 06:00 10/25/17 05:51 10/25/17 06:00 Intake and Output: 10/24/17 10/25/17 18:59 06:59 Intake Total 1747 1520 Output Total 430 1085 Balance 1317 435 - Medications Medications: Current Medications Ascorbic Acid (Vitamin C 500 Mg Tab) 500 mg PO DAILY [facility] Last Admin: 10/24/17 09:25 Dose: 500 mg Cyanocobalamin (Vitamin B12 1000 Mcg Tab) 1,000 mcg PO DAILY [facility] Last Admin: 10/24/17 09:25 Dose: 1,000 mcg Dextrose (Dextrose 50% Inj) 0 ml IV STAT PRN; Protocol PRN Reason: Hypoglycemia Protocol Dextrose (Glutose 15) 0 gm PO ONCE PRN; Protocol PRN Reason: Hypoglycemia Protocol Glucagon (Glucagen Diagnostic Kit) 0 mg IM STAT PRN; Protocol PRN Reason: Hypoglycemia Protocol Valproate Sodium 500 mg/ (Sodium Chloride) 105 mls @ 100 mls/hr IVPB Q12H [facility] Last Admin: 10/25/17 02:06 Dose: 100 mls/hr Vancomycin HCl 1 gm/ Sodium (Chloride) 200 mls @ 133.333 mls/hr IVPB Q12 [facility] PRN Reason: Protocol Last Admin: 10/24/17 21:48 Dose: 133.333 mls/hr Meropenem 1 gm/ Sodium (Chloride) 100 mls @ 100 mls/hr IVPB Q8 [facility] PRN Reason: Protocol Last Admin: 10/25/17 05:07 Dose: 100 mls/hr Sodium Chloride (Sodium Chloride 0.9%) 1,000 mls @ 75 mls/hr IV .[id number] [facility] Last Admin: 10/25/17 06:24 Dose: 75 mls/hr Insulin Aspart (Novolog) 0 unit SC Q6H [facility] PRN Reason: Protocol Last Admin: 10/25/17 05:08 Dose: 3 units Insulin Detemir (Levemir) 15 unit SC Q12 [facility] Last Admin: 10/24/17 21:55 Dose: 15 units Latanoprost (Xalatan Opht) 0 ml OU HS [facility] Last Admin: 10/24/17 21:57 Dose: 2.5 ml Multivitamins/Vitamin C (Multi-Delyn Liquid) 5 ml PO DAILY [facility] Last Admin: 10/24/17 09:24 Dose: 5 ml Pantoprazole Sodium (Protonix Inj) 40 mg IVP Q12H [facility] Last Admin: 10/25/17 05:06 Dose: 40 mg Saccharomyces Boulardii (Florastor) 250 mg PO Q12 [facility] Last Admin: 10/24/17 22:00 Dose: 250 mg Thiamine HCl (Vitamin B1 Tab) 100 mg PO BID [facility] Last Admin: 10/24/17 18:00 Dose: 100 mg - Labs Labs: 10/24/17 06:24 10/24/17 06:14 PT 13.0 SECONDS (9.7-12.2) H 10/23/17 04:53 INR 1.2 10/23/17 04:53 APTT 24 SECONDS (21-34) 10/23/17 04:53 - Constitutional Appears: No Acute Distress - Head Exam Head Exam: NORMAL INSPECTION Additional comments: right parietal area dressing intact - Eye Exam Pupil Exam: PERRL Additional comments: 3 mm, with right eye CN 3 palsy - Neurological Exam Neurological Exam: Awake Neuro motor strength exam: Left Upper Extremity: 2/1, Right Upper Extremity: 3, Left Lower Extremity: 2/1, Right Lower Extremity: 2/1 Additional comments: Neurological improved able to utter words, follows commands, but with episode of confusion. Assessment and Plan (1) Mental status change Assessment & Plan: Case discussed with Dr. Mota, continue all current medical regimen,. Recommend follow any orders from neurosurgery, physical therapy, keep head of bed elevated at least 30 degrees, normothermic, glycemic control. Status: Acute
[2017-10-25 06:35] LABS: ALB/GLOB RATIO 1.1 (1.0-2.1); ALBUMIN 3.1 g/dL (3.5-5.0); ALT/SGPT 31 U/L (9-52); AST/SGOT 21 U/L (14-36); BLOOD UREA NITROGEN 11 mg/dL (7-17); CALCIUM 8.2 mg/dl (8.6-10.4); GFR AFRICAN-AMERICAN > 60; GFR NON-AFRICAN AMERICAN > 60
[2017-10-25] MEDS ORDERED: Potassium Phosphate 15 MMOLE in Sodium Chloride 0.9% 250 ML IVPB ONE (08:36)
[2017-10-25] MEDS: Multiple Vitamins Oral Solution PO SCH (09:14)
[2017-10-25] MEDS: Vancomycin 1 GM in Sodium Chloride 0.9% 200 ML IVPB SCH ×2 (09:14→22:00)
[2017-10-25] MEDS: Saccharomyces Boulardi 250 mg Cap PO SCH ×2 (09:14→21:16)
[2017-10-25] MEDS: Insulin Detemir 100 units/ml Vial (Levemir) SC SCH ×2 (09:15→21:15)
--- NOTE | 2017-10-25 10:00 | CP.PCM.PN ---
Subjective - Date & Time of Evaluation Date of Evaluation: 10/25/17 Time of Evaluation: 09:59 - Subjective Subjective: much brighter following commands open eyes attempting to talk CT in AM oob Objective - Vital Signs/Intake and Output Vital Signs (last 24 hours): Temp Pulse Resp BP Pulse Ox 99.1 F 88 15 113/43 L 96 10/25/17 08:00 10/25/17 09:00 10/25/17 09:00 10/25/17 08:51 10/25/17 09:00 Intake and Output: 10/25/17 10/25/17 06:59 18:59 Intake Total 1520 785 Output Total 1085 200 Balance 435 585 - Medications Medications: Current Medications Ascorbic Acid (Vitamin C 500 Mg Tab) 500 mg PO DAILY [facility] Last Admin: 10/25/17 09:14 Dose: 500 mg Cyanocobalamin (Vitamin B12 1000 Mcg Tab) 1,000 mcg PO DAILY [facility] Last Admin: 10/25/17 09:14 Dose: 1,000 mcg Dextrose (Dextrose 50% Inj) 0 ml IV STAT PRN; Protocol PRN Reason: Hypoglycemia Protocol Dextrose (Glutose 15) 0 gm PO ONCE PRN; Protocol PRN Reason: Hypoglycemia Protocol Glucagon (Glucagen Diagnostic Kit) 0 mg IM STAT PRN; Protocol PRN Reason: Hypoglycemia Protocol Valproate Sodium 500 mg/ (Sodium Chloride) 105 mls @ 100 mls/hr IVPB Q12H [facility] Last Admin: 10/25/17 02:06 Dose: 100 mls/hr Vancomycin HCl 1 gm/ Sodium (Chloride) 200 mls @ 133.333 mls/hr IVPB Q12 [facility] PRN Reason: Protocol Last Admin: 10/25/17 09:14 Dose: 133.333 mls/hr Meropenem 1 gm/ Sodium (Chloride) 100 mls @ 100 mls/hr IVPB Q8 [facility] PRN Reason: Protocol Last Admin: 10/25/17 05:07 Dose: 100 mls/hr Sodium Chloride (Sodium Chloride 0.9%) 1,000 mls @ 75 mls/hr IV .[id number] [facility] Last Admin: 10/25/17 06:24 Dose: 75 mls/hr Potassium Phosphate 15 mmole/ (Sodium Chloride) 255 mls @ 42.5 mls/hr IVPB ONCE ONE Stop: 10/25/17 14:35 Last Admin: 10/25/17 09:15 Dose: 42.5 mls/hr Insulin Aspart (Novolog) 0 unit SC Q6H [facility] PRN Reason: Protocol Last Admin: 10/25/17 05:08 Dose: 3 units Insulin Detemir (Levemir) 15 unit SC Q12 [facility] Last Admin: 10/25/17 09:15 Dose: 15 units Latanoprost (Xalatan Opht) 0 ml OU HS [facility] Last Admin: 10/24/17 21:57 Dose: 2.5 ml Multivitamins/Vitamin C (Multi-Delyn Liquid) 5 ml PO DAILY [facility] Last Admin: 10/25/17 09:14 Dose: 5 ml Pantoprazole Sodium (Protonix Inj) 40 mg IVP Q12H [facility] Last Admin: 10/25/17 05:06 Dose: 40 mg Saccharomyces Boulardii (Florastor) 250 mg PO Q12 [facility] Last Admin: 10/25/17 09:14 Dose: 250 mg Thiamine HCl (Vitamin B1 Tab) 100 mg PO BID [facility] Last Admin: 10/25/17 09:14 Dose: 100 mg - Labs Labs: 10/25/17 05:56 10/25/17 05:56 PT 13.0 SECONDS (9.7-12.2) H 10/23/17 04:53 INR 1.2 10/23/17 04:53 APTT 24 SECONDS (21-34) 10/23/17 04:53
--- NOTE | 2017-10-25 13:10 | CP.CCUPN ---
<Ernestine Posadas - Last Filed: 10/25/17 13:07> CCU Subjective - Physician Review Subjective (Free Text): Patient seen and examined at bedside. Patient is s/p 4th shunt revision 10/23. Patient is more alert and responsive, still not verbal but follows commands. CCU Objective - Vital Signs / Intake & Output Vital Signs (Last 4 hours): Vital Signs Temp Pulse Resp BP Pulse Ox 10/25/17 12:00 98.4 F 76 13 92 L 10/25/17 11:51 87 19 132/61 93 L 10/25/17 11:00 99 H 22 96 10/25/17 10:51 77 13 123/47 L 97 10/25/17 10:00 89 16 96 10/25/17 09:52 88 18 130/53 L 96 Intake and Output (Last 8hrs): Intake & Output 10/24/17 10/25/17 10/25/17 22:59 06:59 14:59 Intake Total 8473 759 7129 Output Total 350 875 350 Balance 772 55 765 Weight 209 lb 7 oz Intake: Intake, IV Amount 842 650 905 Right Internal Jugular 800 650 650 Right Medial Port 42 255 Internal Jugular Tube Feeding 280 280 210 Output: Urine 350 875 350 Urethral (Fernandez) 350 875 350 Other: # Bowel Movements 0 - Physical Exam Head: Positive for: Normocephalic Pupils: Positive for: PERRL Extroacular Muscles: Positive for: EOMI Mouth: Positive for: Dry, Other (NGT in place ) Respiratory/Chest: Positive for: Clear to Auscultation. Negative for: Respiratory Distress Cardiovascular: Positive for: Regular Rate and Rhythm Abdomen: Positive for: Normal Bowel Sounds. Negative for: Tenderness, Distention Upper Extremity: Positive for: Normal Inspection, NORMAL PULSES, Neurovascularly Intact, Capillary Refill < 2s Lower Extremity: Positive for: Normal Inspection, NORMAL PULSES, Neurovascularly Intact, Capillary Refill < 2 s Neurological: Positive for: Other (Unable to full assese, Pt Lethargic, Only responding to pain) Skin: Positive for: Warm, Dry, Normal Color Psychiatric: Positive for: Other (Lethargic). Negative for: Alert, Oriented x 3 - Medications Active Medications: Active Medications Generic Name Dose Route Start Last Admin Trade Name Freq PRN Reason Stop Dose Admin Ascorbic Acid 500 mg 10/21/17 12:00 10/25/17 09:14 Vitamin C 500 Mg Tab PO 500 mg DAILY MOLLY Administration Cyanocobalamin 1,000 mcg 10/21/17 12:00 10/25/17 09:14 Vitamin B12 1000 Mcg Tab PO 1,000 mcg DAILY MOLLY Administration Dextrose 0 ml 10/03/17 13:28 Dextrose 50% Inj IV STAT PRN Hypoglycemia Protocol Protocol Dextrose 0 gm 10/03/17 13:28 Glutose 15 PO ONCE PRN Hypoglycemia Protocol Protocol Glucagon 0 mg 10/03/17 13:28 Glucagen Diagnostic Kit IM STAT PRN Hypoglycemia Protocol Protocol Valproate Sodium 500 mg/ 105 mls @ 100 mls/hr 10/11/17 14:03 10/25/17 02:06 Sodium Chloride IVPB 100 mls/hr Q12H MOLLY Administration Vancomycin HCl 1 gm/ Sodium 200 mls @ 133.333 mls/hr 10/20/17 22:00 10/25/17 09:14 Chloride IVPB 133.333 mls/hr Q12 MOLLY Administration Protocol Meropenem 1 gm/ Sodium 100 mls @ 100 mls/hr 10/20/17 22:00 10/25/17 05:07 Chloride IVPB 100 mls/hr Q8 MOLLY Administration Protocol Sodium Chloride 1,000 mls @ 75 mls/hr 10/20/17 20:00 10/25/17 06:24 Sodium Chloride 0.9% IV 75 mls/hr .[id number] MOLLY Administration Potassium Phosphate 15 mmole/ 255 mls @ 42.5 mls/hr 10/25/17 08:36 10/25/17 09:15 Sodium Chloride IVPB 10/25/17 14:35 42.5 mls/hr ONCE ONE Administration Insulin Aspart 0 unit 10/21/17 18:00 10/25/17 12:13 Novolog SC 3 units Q6H MOLLY Administration Protocol Insulin Detemir 15 unit 10/15/17 22:00 10/25/17 09:15 Levemir SC 15 units Q12 MOLLY Administration Latanoprost 0 ml 10/03/17 22:00 10/24/17 21:57 Xalatan Opht OU 2.5 ml HS MOLLY Administration Multivitamins/Vitamin C 5 ml 10/21/17 12:00 10/25/17 09:14 Multi-Delyn Liquid PO 5 ml DAILY MOLLY Administration Pantoprazole Sodium 40 mg 10/20/17 17:30 10/25/17 05:06 Protonix Inj IVP 40 mg Q12H MOLLY Administration Saccharomyces Boulardii 250 mg 10/23/17 22:00 10/25/17 09:14 Florastor PO 250 mg Q12 MOLLY Administration Thiamine HCl 100 mg 10/21/17 12:00 10/25/17 09:14 Vitamin B1 Tab PO 100 mg BID MOLLY Administration - Patient Studies Lab Studies: Microbiology Studies 10/20/17 19:30 Blood Culture - Preliminary Blood-Thru Central Line NO GROWTH AFTER 4 DAYS 10/20/17 20:00 Blood Culture - Preliminary Blood-Thru Central Line NO GROWTH AFTER 4 DAYS 10/19/17 12:16 Gram Stain - Final Cerebral Spinal Fluid CSF Culture - Final No growth. Lab Studies 10/25/17 10/25/17 10/25/17 Range/Units 11:39 05:56 05:56 WBC (4.8-10.8) K/uL RBC (3.80-5.20) Mil/uL Hgb (11.0-16.0) g/dL Hct (34.0-47.0) % MCV (81.0-99.0) fL MCH (27.0-31.0) pg MCHC (33.0-37.0) g/dL RDW (11.5-14.5) % Plt Count (130-400) K/uL MPV (7.2-11.7) fL Neut % (Auto) (50.0-75.0) % Lymph % (Auto) (20.0-40.0) % Logan % (Auto) (0.0-10.0) % Eos % (Auto) (0.0-4.0) % Baso % (Auto) (0.0-2.0) % Neut # (Auto) (1.8-7.0) K/uL Lymph # (Auto) (1.0-4.3) K/uL Logan # (Auto) (0.0-0.8) K/uL Eos # (Auto) (0.0-0.7) K/uL Baso # (Auto) (0.0-0.2) K/uL Sodium 141 (132-148) mmol/L Potassium 3.5 L (3.6-5.2) mmol/L Chloride 102 (98-107) mmol/L Carbon Dioxide 34 H (22-30) mmol/L Anion Gap 9 L (10-20) BUN 11 (7-17) mg/dL Creatinine 0.5 L (0.7-1.2) mg/dL Est GFR ( Amer) > 60 Est GFR (Non-Af Amer) > 60 POC Glucose (mg/dL) 214 H (65-110) mg/dL Random Glucose 213 H (65-105) mg/dL Serum Osmolality 300 (272-300) mosm/kg Calcium 8.2 L (8.6-10.4) mg/dl Phosphorus 2.0 L (2.5-4.5) mg/dL Magnesium 2.0 (1.6-2.3) mg/dL Total Bilirubin 0.6 (0.2-1.3) mg/dL AST 21 (14-36) U/L ALT 31 (9-52) U/L Alkaline Phosphatase 70 (38-126) U/L Total Protein 6.0 L (6.3-8.3) g/dL Albumin 3.1 L (3.5-5.0) g/dL Globulin 2.9 (2.2-3.9) gm/dL Albumin/Globulin Ratio 1.1 (1.0-2.1) 10/25/17 10/25/17 10/24/17 Range/Units 05:56 04:58 23:50 WBC 7.2 (4.8-10.8) K/uL RBC 3.87 (3.80-5.20) Mil/uL Hgb 11.4 (11.0-16.0) g/dL Hct 33.5 L (34.0-47.0) % MCV 86.5 (81.0-99.0) fL MCH 29.4 (27.0-31.0) pg MCHC 33.9 (33.0-37.0) g/dL RDW 14.5 (11.5-14.5) % Plt Count 215 (130-400) K/uL MPV 8.6 (7.2-11.7) fL Neut % (Auto) 65.5 (50.0-75.0) % Lymph % (Auto) 24.7 (20.0-40.0) % Logan % (Auto) 7.7 (0.0-10.0) % Eos % (Auto) 1.4 (0.0-4.0) % Baso % (Auto) 0.7 (0.0-2.0) % Neut # (Auto) 4.7 (1.8-7.0) K/uL Lymph # (Auto) 1.8 (1.0-4.3) K/uL Logan # (Auto) 0.6 (0.0-0.8) K/uL Eos # (Auto) 0.1 (0.0-0.7) K/uL Baso # (Auto) 0.0 (0.0-0.2) K/uL Sodium (132-148) mmol/L Potassium (3.6-5.2) mmol/L Chloride (98-107) mmol/L Carbon Dioxide (22-30) mmol/L Anion Gap (10-20) BUN (7-17) mg/dL Creatinine (0.7-1.2) mg/dL Est GFR ( Amer) Est GFR (Non-Af Amer) POC Glucose (mg/dL) 221 H 165 H (65-110) mg/dL Random Glucose (65-105) mg/dL Serum Osmolality (272-300) mosm/kg Calcium (8.6-10.4) mg/dl Phosphorus (2.5-4.5) mg/dL Magnesium (1.6-2.3) mg/dL Total Bilirubin (0.2-1.3) mg/dL AST (14-36) U/L ALT (9-52) U/L Alkaline Phosphatase (38-126) U/L Total Protein (6.3-8.3) g/dL Albumin (3.5-5.0) g/dL Globulin (2.2-3.9) gm/dL Albumin/Globulin Ratio (1.0-2.1) 10/24/17 Range/Units 17:37 WBC (4.8-10.8) K/uL RBC (3.80-5.20) Mil/uL Hgb (11.0-16.0) g/dL Hct (34.0-47.0) % MCV (81.0-99.0) fL MCH (27.0-31.0) pg MCHC (33.0-37.0) g/dL RDW (11.5-14.5) % Plt Count (130-400) K/uL MPV (7.2-11.7) fL Neut % (Auto) (50.0-75.0) % Lymph % (Auto) (20.0-40.0) % Logan % (Auto) (0.0-10.0) % Eos % (Auto) (0.0-4.0) % Baso % (Auto) (0.0-2.0) % Neut # (Auto) (1.8-7.0) K/uL Lymph # (Auto) (1.0-4.3) K/uL Logan # (Auto) (0.0-0.8) K/uL Eos # (Auto) (0.0-0.7) K/uL Baso # (Auto) (0.0-0.2) K/uL Sodium (132-148) mmol/L Potassium (3.6-5.2) mmol/L Chloride (98-107) mmol/L Carbon Dioxide (22-30) mmol/L Anion Gap (10-20) BUN (7-17) mg/dL Creatinine (0.7-1.2) mg/dL Est GFR ( Amer) Est GFR (Non-Af Amer) POC Glucose (mg/dL) 187 H (65-110) mg/dL Random Glucose (65-105) mg/dL Serum Osmolality (272-300) mosm/kg Calcium (8.6-10.4) mg/dl Phosphorus (2.5-4.5) mg/dL Magnesium (1.6-2.3) mg/dL Total Bilirubin (0.2-1.3) mg/dL AST (14-36) U/L ALT (9-52) U/L Alkaline Phosphatase (38-126) U/L Total Protein (6.3-8.3) g/dL Albumin (3.5-5.0) g/dL Globulin (2.2-3.9) gm/dL Albumin/Globulin Ratio (1.0-2.1) Laboratory Results - last 24 hr 06/19/18 06/19/18 06/20/18 17:37 23:50 04:58 WBC RBC Hgb Hct MCV MCH MCHC RDW Plt Count MPV Neut % (Auto) Lymph % (Auto) Logan % (Auto) Eos % (Auto) Baso % (Auto) Neut # (Auto) Lymph # (Auto) Logan # (Auto) Eos # (Auto) Baso # (Auto) Sodium Potassium Chloride Carbon Dioxide Anion Gap BUN Creatinine Est GFR ( Amer) Est GFR (Non-Af Amer) POC Glucose (mg/dL) 187 H 165 H 221 H Random Glucose Serum Osmolality Calcium Phosphorus Magnesium Total Bilirubin AST ALT Alkaline Phosphatase Total Protein Albumin Globulin Albumin/Globulin Ratio 10/25/17 10/25/17 10/25/17 05:56 05:56 05:56 WBC 7.2 RBC 3.87 Hgb 11.4 Hct 33.5 L MCV 86.5 MCH 29.4 MCHC 33.9 RDW 14.5 Plt Count 215 MPV 8.6 Neut % (Auto) 65.5 Lymph % (Auto) 24.7 Logan % (Auto) 7.7 Eos % (Auto) 1.4 Baso % (Auto) 0.7 Neut # (Auto) 4.7 Lymph # (Auto) 1.8 Logan # (Auto) 0.6 Eos # (Auto) 0.1 Baso # (Auto) 0.0 Sodium 141 Potassium 3.5 L Chloride 102 Carbon Dioxide 34 H Anion Gap 9 L BUN 11 Creatinine 0.5 L Est GFR ( Amer) > 60 Est GFR (Non-Af Amer) > 60 POC Glucose (mg/dL) Random Glucose 213 H Serum Osmolality 300 Calcium 8.2 L Phosphorus 2.0 L Magnesium 2.0 Total Bilirubin 0.6 AST 21 ALT 31 Alkaline Phosphatase 70 Total Protein 6.0 L Albumin 3.1 L Globulin 2.9 Albumin/Globulin Ratio 1.1 10/25/17 11:39 WBC RBC Hgb Hct MCV MCH MCHC RDW Plt Count MPV Neut % (Auto) Lymph % (Auto) Logan % (Auto) Eos % (Auto) Baso % (Auto) Neut # (Auto) Lymph # (Auto) Logan # (Auto) Eos # (Auto) Baso # (Auto) Sodium Potassium Chloride Carbon Dioxide Anion Gap BUN Creatinine Est GFR ( Amer) Est GFR (Non-Af Amer) POC Glucose (mg/dL) 214 H Random Glucose Serum Osmolality Calcium Phosphorus Magnesium Total Bilirubin AST ALT Alkaline Phosphatase Total Protein Albumin Globulin Albumin/Globulin Ratio Fingerstick Blood Sugar Results: 214 Critical Care Progress Note - Nutrition Nutrition: Nutrition Category Date Time Status NPO Diet [DIET] Diets 10/20/17 Dinner Active Assessment/Plan - Assessment and Plan (Free Text) Assessment: Ms. Diaz is a 66 year old female with PMHx of HTN, HLD, T2DM, and NPH with [employer] shunt placed in 2014, she underwent 4 [employer] INS[employer] shunt revisions 02/26/17, 3 during this admission (10/10/2017, 10/11/2017, 10/19/2017, and 10/23/17). Patient admitted to the ICU for AMS and enlarging ventricles noted on CT Scan. S/P revision on - continue to observe in ICU. 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 Milton consulted - Shunt placed in 2014 - [employer] INS[employer]IST Shunt repair 02/26/17 - s/p [employer] INS[employer]IST shunt revision - 3rd this hospital stay (10/10/2017, 10/11/2017, 10/19/2017 , 10/23/2017) - S/P Revision 10/23/17 - placement of left parietal pleural shunt - Repeat Head CT: Interval placement new left posterior superior parietal shunt tube with decrease size of the ventricles. Intraventricular air with small amount of hemorrhage layering within the dependent portion of the atria and occipital horns. Decrease size of the ventricles with improved periventricular white matter changes -transependymal edema. - Pending EEG - Continue with 100% O2 - Repeat Head CT 10/26: -keep MAP ~100, ICP 10: CPP >70 -continue IV NS, osmol 305, will increase NA near 145 -keep HOB >30 - Mannitol 25grams given x 1 - Started on vanco Q12 and Meropenem 10/20 - Teague cultures - negative to date Neurology consulted, Dr. Nixon - Continue valproate 500mg IVPB q12h for seizure prophylaxis Cardio: A: Hypertension - Held Amlodipine 5mg PO daily, Metoprolol Tart 12.5mg PO BID A: HLD - Crestor 5 mg po hs - HELD Pulm A: Hx Asthma Endo: A: Diabetes - Accuchecks - Medium Dose insulin sliding scale, Levemir dose of 15 units BID, ISS- low Prophylaxis - SCDs - Protonix Q12 - Right TLC placed 10/23/[address] Bolaños, Ernestine Posadas DO, PGY-1 <Vikas Bolaños S - Last Filed: 10/25/17 17:49> CCU Objective - Vital Signs / Intake & Output Vital Signs (Last 4 hours): Vital Signs Temp Pulse Resp BP Pulse Ox 10/25/17 17:00 85 13 96 10/25/17 16:52 89 17 123/63 96 10/25/17 16:00 98.8 F 81 14 96 10/25/17 15:51 84 16 125/66 95 10/25/17 15:00 89 15 96 10/25/17 14:52 94 H 16 129/69 97 10/25/17 14:00 86 15 96 10/25/17 13:51 93 H 15 118/76 96 Intake and Output (Last 8hrs): Intake & Output 10/25/17 10/25/17 10/25/17 06:59 14:59 22:59 Intake Total 930 1540 330 Output Total 875 500 300 Balance 55 1040 30 Weight 209 lb 7 oz Intake: Intake, IV Amount 650 1260 225 Right Internal Jugular 650 905 225 Right Medial Port 355 Internal Jugular Tube Feeding 280 280 105 Output: Urine 875 500 300 Urethral (Fernandez) 875 500 Urine, Voided 300 Other: # Bowel Movements 0 - Medications Active Medications: Active Medications Generic Name Dose Route Start Last Admin Trade Name Freq PRN Reason Stop Dose Admin Ascorbic Acid 500 mg 10/21/17 12:00 10/25/17 09:14 Vitamin C 500 Mg Tab PO 500 mg DAILY MOLLY Administration Cyanocobalamin 1,000 mcg 10/21/17 12:00 10/25/17 09:14 Vitamin B12 1000 Mcg Tab PO 1,000 mcg DAILY MOLLY Administration Dextrose 0 ml 10/03/17 13:28 Dextrose 50% Inj IV STAT PRN Hypoglycemia Protocol Protocol Dextrose 0 gm 10/03/17 13:28 Glutose 15 PO ONCE PRN Hypoglycemia Protocol Protocol Glucagon 0 mg 10/03/17 13:28 Glucagen Diagnostic Kit IM STAT PRN Hypoglycemia Protocol Protocol Valproate Sodium 500 mg/ 105 mls @ 100 mls/hr 10/11/17 14:03 10/25/17 14:23 Sodium Chloride IVPB 100 mls/hr Q12H MOLLY Administration Vancomycin HCl 1 gm/ Sodium 200 mls @ 133.333 mls/hr 10/20/17 22:00 10/25/17 09:14 Chloride IVPB 133.333 mls/hr Q12 MOLLY Administration Protocol Meropenem 1 gm/ Sodium 100 mls @ 100 mls/hr 10/20/17 22:00 10/25/17 14:22 Chloride IVPB 100 mls/hr Q8 MOLLY Administration Protocol Sodium Chloride 1,000 mls @ 75 mls/hr 10/20/17 20:00 10/25/17 06:24 Sodium Chloride 0.9% IV 75 mls/hr .[id number] MOLLY Administration Insulin Aspart 0 unit 10/21/17 18:00 10/25/17 17:45 Novolog SC 3 units Q6H MOLLY Administration Protocol Insulin Detemir 15 unit 10/15/17 22:00 10/25/17 09:15 Levemir SC 15 units Q12 MOLLY Administration Latanoprost 0 ml 10/03/17 22:00 10/24/17 21:57 Xalatan Opht OU 2.5 ml HS MOLLY Administration Multivitamins/Vitamin C 5 ml 10/21/17 12:00 10/25/17 09:14 Multi-Delyn Liquid PO 5 ml DAILY MOLLY Administration Pantoprazole Sodium 40 mg 10/20/17 17:30 10/25/17 17:42 Protonix Inj IVP 40 mg Q12H MOLLY Administration Saccharomyces Boulardii 250 mg 10/23/17 22:00 10/25/17 09:14 Florastor PO 250 mg Q12 MOLLY Administration Thiamine HCl 100 mg 10/21/17 12:00 10/25/17 17:42 Vitamin B1 Tab PO 100 mg BID MOLLY Administration - Patient Studies Lab Studies: Microbiology Studies 10/20/17 19:30 Blood Culture - Preliminary Blood-Thru Central Line NO GROWTH AFTER 4 DAYS 10/20/17 20:00 Blood Culture - Preliminary Blood-Thru Central Line NO GROWTH AFTER 4 DAYS Lab Studies 10/25/17 10/25/17 10/25/17 Range/Units 11:39 05:56 05:56 WBC (4.8-10.8) K/uL RBC (3.80-5.20) Mil/uL Hgb (11.0-16.0) g/dL Hct (34.0-47.0) % MCV (81.0-99.0) fL MCH (27.0-31.0) pg MCHC (33.0-37.0) g/dL RDW (11.5-14.5) % Plt Count (130-400) K/uL MPV (7.2-11.7) fL Neut % (Auto) (50.0-75.0) % Lymph % (Auto) (20.0-40.0) % Logan % (Auto) (0.0-10.0) % Eos % (Auto) (0.0-4.0) % Baso % (Auto) (0.0-2.0) % Neut # (Auto) (1.8-7.0) K/uL Lymph # (Auto) (1.0-4.3) K/uL Logan # (Auto) (0.0-0.8) K/uL Eos # (Auto) (0.0-0.7) K/uL Baso # (Auto) (0.0-0.2) K/uL Sodium 141 (132-148) mmol/L Potassium 3.5 L (3.6-5.2) mmol/L Chloride 102 (98-107) mmol/L Carbon Dioxide 34 H (22-30) mmol/L Anion Gap 9 L (10-20) BUN 11 (7-17) mg/dL Creatinine 0.5 L (0.7-1.2) mg/dL Est GFR ( Amer) > 60 Est GFR (Non-Af Amer) > 60 POC Glucose (mg/dL) 214 H (65-110) mg/dL Random Glucose 213 H (65-105) mg/dL Serum Osmolality 300 (272-300) mosm/kg Calcium 8.2 L (8.6-10.4) mg/dl Phosphorus 2.0 L (2.5-4.5) mg/dL Magnesium 2.0 (1.6-2.3) mg/dL Total Bilirubin 0.6 (0.2-1.3) mg/dL AST 21 (14-36) U/L ALT 31 (9-52) U/L Alkaline Phosphatase 70 (38-126) U/L Total Protein 6.0 L (6.3-8.3) g/dL Albumin 3.1 L (3.5-5.0) g/dL Globulin 2.9 (2.2-3.9) gm/dL Albumin/Globulin Ratio 1.1 (1.0-2.1) 10/25/17 10/25/17 10/24/17 Range/Units 05:56 04:58 23:50 WBC 7.2 (4.8-10.8) K/uL RBC 3.87 (3.80-5.20) Mil/uL Hgb 11.4 (11.0-16.0) g/dL Hct 33.5 L (34.0-47.0) % MCV 86.5 (81.0-99.0) fL MCH 29.4 (27.0-31.0) pg MCHC 33.9 (33.0-37.0) g/dL RDW 14.5 (11.5-14.5) % Plt Count 215 (130-400) K/uL MPV 8.6 (7.2-11.7) fL Neut % (Auto) 65.5 (50.0-75.0) % Lymph % (Auto) 24.7 (20.0-40.0) % Logan % (Auto) 7.7 (0.0-10.0) % Eos % (Auto) 1.4 (0.0-4.0) % Baso % (Auto) 0.7 (0.0-2.0) % Neut # (Auto) 4.7 (1.8-7.0) K/uL Lymph # (Auto) 1.8 (1.0-4.3) K/uL Logan # (Auto) 0.6 (0.0-0.8) K/uL Eos # (Auto) 0.1 (0.0-0.7) K/uL Baso # (Auto) 0.0 (0.0-0.2) K/uL Sodium (132-148) mmol/L Potassium (3.6-5.2) mmol/L Chloride (98-107) mmol/L Carbon Dioxide (22-30) mmol/L Anion Gap (10-20) BUN (7-17) mg/dL Creatinine (0.7-1.2) mg/dL Est GFR ( Amer) Est GFR (Non-Af Amer) POC Glucose (mg/dL) 221 H 165 H (65-110) mg/dL Random Glucose (65-105) mg/dL Serum Osmolality (272-300) mosm/kg Calcium (8.6-10.4) mg/dl Phosphorus (2.5-4.5) mg/dL Magnesium (1.6-2.3) mg/dL Total Bilirubin (0.2-1.3) mg/dL AST (14-36) U/L ALT (9-52) U/L Alkaline Phosphatase (38-126) U/L Total Protein (6.3-8.3) g/dL Albumin (3.5-5.0) g/dL Globulin (2.2-3.9) gm/dL Albumin/Globulin Ratio (1.0-2.1) Laboratory Results - last 24 hr 10/24/17 10/25/17 10/25/17 23:50 04:58 05:56 WBC 7.2 RBC 3.87 Hgb 11.4 Hct 33.5 L MCV 86.5 MCH 29.4 MCHC 33.9 RDW 14.5 Plt Count 215 MPV 8.6 Neut % (Auto) 65.5 Lymph % (Auto) 24.7 Logan % (Auto) 7.7 Eos % (Auto) 1.4 Baso % (Auto) 0.7 Neut # (Auto) 4.7 Lymph # (Auto) 1.8 Logan # (Auto) 0.6 Eos # (Auto) 0.1 Baso # (Auto) 0.0 Sodium Potassium Chloride Carbon Dioxide Anion Gap BUN Creatinine Est GFR ( Amer) Est GFR (Non-Af Amer) POC Glucose (mg/dL) 165 H 221 H Random Glucose Serum Osmolality Calcium Phosphorus Magnesium Total Bilirubin AST ALT Alkaline Phosphatase Total Protein Albumin Globulin Albumin/Globulin Ratio 10/25/17 10/25/17 10/25/17 05:56 05:56 11:39 WBC RBC Hgb Hct MCV MCH MCHC RDW Plt Count MPV Neut % (Auto) Lymph % (Auto) Logan % (Auto) Eos % (Auto) Baso % (Auto) Neut # (Auto) Lymph # (Auto) Logan # (Auto) Eos # (Auto) Baso # (Auto) Sodium 141 Potassium 3.5 L Chloride 102 Carbon Dioxide 34 H Anion Gap 9 L BUN 11 Creatinine 0.5 L Est GFR ( Amer) > 60 Est GFR (Non-Af Amer) > 60 POC Glucose (mg/dL) 214 H Random Glucose 213 H Serum Osmolality 300 Calcium 8.2 L Phosphorus 2.0 L Magnesium 2.0 Total Bilirubin 0.6 AST 21 ALT 31 Alkaline Phosphatase 70 Total Protein 6.0 L Albumin 3.1 L Globulin 2.9 Albumin/Globulin Ratio 1.1 Critical Care Progress Note - Nutrition Nutrition: Nutrition Category Date Time Status NPO Diet [DIET] Diets 10/20/17 Dinner Active Attending/Attestation - Attestation I have personally seen and examined this patient.: Yes I have fully participated in the care of the patient.: Yes I have reviewed all pertinent clinical information: Yes Notes (Text): 10/25/17 17:48 patient seen and examined in the intensive care unit. Patient is more awake and responsive Continue present treatment and ICU monitoring
--- NOTE | 2017-10-25 17:37 | CP.PCM.PN ---
Subjective - Date & Time of Evaluation Date of Evaluation: 10/25/17 Time of Evaluation: 09:00 - Subjective Subjective: seen and examined this morning. Patient is awake and responsive. Open her eyes and able respond. No focal weakness d/w patient's daughter at bedside . As per daughter her mental status is improving. Objective - Vital Signs/Intake and Output Vital Signs (last 24 hours): Temp Pulse Resp BP Pulse Ox 98.8 F 85 13 123/63 96 10/25/17 16:00 10/25/17 17:00 10/25/17 17:00 10/25/17 16:52 10/25/17 17:00 Intake and Output: 10/25/17 10/25/17 06:59 18:59 Intake Total 1520 1870 Output Total 1085 800 Balance 435 1070 - Medications Medications: Current Medications Ascorbic Acid (Vitamin C 500 Mg Tab) 500 mg PO DAILY [facility] Last Admin: 10/25/17 09:14 Dose: 500 mg Cyanocobalamin (Vitamin B12 1000 Mcg Tab) 1,000 mcg PO DAILY [facility] Last Admin: 10/25/17 09:14 Dose: 1,000 mcg Dextrose (Dextrose 50% Inj) 0 ml IV STAT PRN; Protocol PRN Reason: Hypoglycemia Protocol Dextrose (Glutose 15) 0 gm PO ONCE PRN; Protocol PRN Reason: Hypoglycemia Protocol Glucagon (Glucagen Diagnostic Kit) 0 mg IM STAT PRN; Protocol PRN Reason: Hypoglycemia Protocol Valproate Sodium 500 mg/ (Sodium Chloride) 105 mls @ 100 mls/hr IVPB Q12H [facility] Last Admin: 10/25/17 14:23 Dose: 100 mls/hr Vancomycin HCl 1 gm/ Sodium (Chloride) 200 mls @ 133.333 mls/hr IVPB Q12 MOLLY PRN Reason: Protocol Last Admin: 10/25/17 09:14 Dose: 133.333 mls/hr Meropenem 1 gm/ Sodium (Chloride) 100 mls @ 100 mls/hr IVPB Q8 MOLLY PRN Reason: Protocol Last Admin: 10/25/17 14:22 Dose: 100 mls/hr Sodium Chloride (Sodium Chloride 0.9%) 1,000 mls @ 75 mls/hr IV .[id number] [facility] Last Admin: 10/25/17 06:24 Dose: 75 mls/hr Insulin Aspart (Novolog) 0 unit SC Q6H MOLLY PRN Reason: Protocol Last Admin: 10/25/17 12:13 Dose: 3 units Insulin Detemir (Levemir) 15 unit SC Q12 [facility] Last Admin: 10/25/17 09:15 Dose: 15 units Latanoprost (Xalatan Opht) 0 ml OU HS [facility] Last Admin: 10/24/17 21:57 Dose: 2.5 ml Multivitamins/Vitamin C (Multi-Delyn Liquid) 5 ml PO DAILY [facility] Last Admin: 10/25/17 09:14 Dose: 5 ml Pantoprazole Sodium (Protonix Inj) 40 mg IVP Q12H [facility] Last Admin: 10/25/17 05:06 Dose: 40 mg Saccharomyces Boulardii (Florastor) 250 mg PO Q12 [facility] Last Admin: 10/25/17 09:14 Dose: 250 mg Thiamine HCl (Vitamin B1 Tab) 100 mg PO BID [facility] Last Admin: 10/25/17 09:14 Dose: 100 mg - Labs Labs: 10/25/17 05:56 10/25/17 05:56 PT 13.0 SECONDS (9.7-12.2) H 10/23/17 04:53 INR 1.2 10/23/17 04:53 APTT 24 SECONDS (21-34) 10/23/17 04:53 - Constitutional Appears: Non-toxic, No Acute Distress, Chronically Ill - Head Exam Head Exam: absent: NORMAL INSPECTION (surgicla dressing in place) - Eye Exam Eye Exam: Normal appearance, PERRL Pupil Exam: NORMAL ACCOMODATION - ENT Exam ENT Exam: Mucous Membranes Moist - Neck Exam Neck Exam: Full ROM - Respiratory Exam Respiratory Exam: Clear to Ausculation Bilateral, NORMAL BREATHING PATTERN - Cardiovascular Exam Cardiovascular Exam: REGULAR RHYTHM - GI/Abdominal Exam GI & Abdominal Exam: Soft, Normal Bowel Sounds. absent: Tenderness - Extremities Exam Extremities Exam: Full ROM - Back Exam Back Exam: NORMAL INSPECTION - Neurological Exam Neurological Exam: Awake. absent: Oriented x3 - Psychiatric Exam Psychiatric exam: Flat Affect - Skin Skin Exam: Dry Assessment and Plan - Assessment and Plan (Free Text) Plan: .[employer] shunt malfunction and change in mental status. Multiple revision of [employer] shunt,s/p revision on 10/23. Continue ICU monitoring -History of hydrocephalus 2/2 to NPH; Shunt placed in 2014. [employer] Shunt repair -Patient is being followed by Neurosurgery Dr Hancock/Ella -[employer] shunt change 10/10/2017, 10/11/2017,10/20 ( Conversion of [employer] shunt to [facility], 10/23 ( Revision on ventricular peritoneal shunt.) by Dr Hancock and Dr Monroe -Neurology Dr. Mota saw her today -all cultures are negative -continue valproate for seizure prophylaxis -Getting meropenem and vancomycin as per Dr Milton Infectious disease 2.Altered Mental Status Improving and able to respond better today. continue tube feeding PT once she improves 3.DM 2 Accu checks ACHS Medium Dose insulin sliding scale Patient started on home levemir dose of 15 units BID Will hold home metformin for now Hypoglycemia protocol 4.HLD 5.Asthma Will continue to monitor saturation 6.Hypertension Home meds on hold,monitor her blood pressure 7.Prophylactic measure scds protonix
[2017-10-25] MEDS: Latanoprost 2.5 ml Opht Soln OU SCH (21:17)
[2017-10-26] MEDS: Valproate 500 MG in Sodium Chloride 0.9% 100 ML IVPB SCH ×2 (01:27→13:29)
[2017-10-26] MEDS: Sodium Chloride 0.9% 1,000 ML IV SCH ×4 (01:51→22:50)
[2017-10-26] MEDS: Meropenem 1 GM in Sodium Chloride 0.9% 100 ML IVPB SCH ×3 (05:59→21:01)
[2017-10-26] MEDS: (Novolog) Insulin Aspart, Recombinant 100 u/ml 10 ml vial SC SCH ×3 (06:28→17:46)
--- NOTE | 2017-10-26 06:41 | CP.PCM.PN ---
Subjective - Date & Time of Evaluation Date of Evaluation: 10/26/17 Time of Evaluation: 06:40 - Subjective Subjective: Ms. Diaz was seen and examined at the bedside in ICU. She is awake, repeats words, but able to answer simple questions such as good morning, how are you. Her pupils sluggish with 3 mm size in her left and non -reactive to the right with right eye does not fully move to the lateral area. She is on nasal cannula for oxygen cannula. She is able to follow some commands such as squeezing her right arm moving her left upper extremity and bilateral lower extremities. She has the right parietal area dressing intact. There was no untoward events overnight. Objective - Vital Signs/Intake and Output Vital Signs (last 24 hours): Temp Pulse Resp BP Pulse Ox 98.5 F 83 16 156/70 H 93 L 10/26/17 04:00 10/26/17 04:00 10/26/17 04:00 10/26/17 03:51 10/26/17 04:00 Intake and Output: 10/25/17 10/26/17 18:59 06:59 Intake Total 1980 1500 Output Total 700 Balance 1280 1500 - Medications Medications: Current Medications Ascorbic Acid (Vitamin C 500 Mg Tab) 500 mg PO DAILY [facility] Last Admin: 10/25/17 09:14 Dose: 500 mg Cyanocobalamin (Vitamin B12 1000 Mcg Tab) 1,000 mcg PO DAILY [facility] Last Admin: 10/25/17 09:14 Dose: 1,000 mcg Dextrose (Dextrose 50% Inj) 0 ml IV STAT PRN; Protocol PRN Reason: Hypoglycemia Protocol Dextrose (Glutose 15) 0 gm PO ONCE PRN; Protocol PRN Reason: Hypoglycemia Protocol Glucagon (Glucagen Diagnostic Kit) 0 mg IM STAT PRN; Protocol PRN Reason: Hypoglycemia Protocol Valproate Sodium 500 mg/ (Sodium Chloride) 105 mls @ 100 mls/hr IVPB Q12H [facility] Last Admin: 10/26/17 01:27 Dose: 100 mls/hr Vancomycin HCl 1 gm/ Sodium (Chloride) 200 mls @ 133.333 mls/hr IVPB Q12 [facility] PRN Reason: Protocol Last Admin: 10/25/17 22:00 Dose: 133.333 mls/hr Meropenem 1 gm/ Sodium (Chloride) 100 mls @ 100 mls/hr IVPB Q8 [facility] PRN Reason: Protocol Last Admin: 10/26/17 05:59 Dose: 100 mls/hr Sodium Chloride (Sodium Chloride 0.9%) 1,000 mls @ 75 mls/hr IV .[id number] [facility] Last Admin: 10/26/17 01:51 Dose: 75 mls/hr Insulin Aspart (Novolog) 0 unit SC Q6H [facility] PRN Reason: Protocol Last Admin: 10/26/17 06:28 Dose: 3 units Insulin Detemir (Levemir) 15 unit SC Q12 [facility] Last Admin: 10/25/17 21:15 Dose: 15 units Latanoprost (Xalatan Opht) 0 ml OU HS [facility] Last Admin: 10/25/17 21:17 Dose: 2.5 ml Multivitamins/Vitamin C (Multi-Delyn Liquid) 5 ml PO DAILY [facility] Last Admin: 10/25/17 09:14 Dose: 5 ml Pantoprazole Sodium (Protonix Inj) 40 mg IVP Q12H [facility] Last Admin: 10/26/17 05:59 Dose: 40 mg Saccharomyces Boulardii (Florastor) 250 mg PO Q12 [facility] Last Admin: 10/25/17 21:16 Dose: 250 mg Thiamine HCl (Vitamin B1 Tab) 100 mg PO BID [facility] Last Admin: 10/25/17 17:42 Dose: 100 mg - Labs Labs: 10/25/17 05:56 10/25/17 05:56 PT 13.0 SECONDS (9.7-12.2) H 10/23/17 04:53 INR 1.2 10/23/17 04:53 APTT 24 SECONDS (21-34) 10/23/17 04:53 - Constitutional Appears: No Acute Distress - Head Exam Head Exam: NORMAL INSPECTION - Neurological Exam Neurological Exam: Awake Neuro motor strength exam: Left Upper Extremity: 3 (weaker this am), Right Upper Extremity: 3 (weaker this am), Left Lower Extremity: 2/1, Right Lower Extremity: 2/1 Additional comments: awake, with bilateral upper extremities weaker than the lower extremities. Assessment and Plan (1) Mental status change Assessment & Plan: Case discussed with Dr. Mota, continue all current medical regimen,. Pending CT scan of the head without contrast this am.Recommend follow any orders from neurosurgery, physical therapy, keep head of bed elevated at least 30 degrees, normothermic, glycemic control. Status: Acute
[2017-10-26 06:42] LABS: BASO # 0.1 K/uL (0.0-0.2); BASO % 0.9 % (0.0-2.0); EOS # 0.1 K/uL (0.0-0.7); EOS % 1.8 % (0.0-4.0); HEMOGLOBIN 11.2 g/dL (11.0-16.0); LYMPH # 1.5 K/uL (1.0-4.3); MEAN CELL VOLUME 86.8 fL (81.0-99.0); MEAN CORPUSCULAR HEMOGLOBIN 29.1 pg (27.0-31.0); MEAN CORPUSCULAR HGB CONC 33.5 g/dL (33.0-37.0); MEAN PLATELET VOLUME 8.4 fL (7.2-11.7); MONO # 0.4 K/uL (0.0-0.8); MONO % 6.7 % (0.0-10.0); NEUT # 4.4 K/uL (1.8-7.0); NEUT % 67.6 % (50.0-75.0); NRBC % 0.1 % (0.0-2.0); RBC 3.86 Mil/uL (3.80-5.20); RED CELL DISTRIBUTION WIDTH 15.2 % (11.5-14.5); WHITE BLOOD COUNT 6.5 K/uL (4.8-10.8)
[2017-10-26 06:55] LABS: ALB/GLOB RATIO 1.1 (1.0-2.1); ALT/SGPT 29 U/L (9-52); AST/SGOT 16 U/L (14-36); BLOOD UREA NITROGEN 13 mg/dL (7-17); CALCIUM 8.2 mg/dl (8.6-10.4); GFR AFRICAN-AMERICAN > 60; GFR NON-AFRICAN AMERICAN > 60
[2017-10-26] MEDS ORDERED: Potassium Phosphate 15 MMOLE in Sodium Chloride 0.9% 250 ML IVPB ONE (07:56)
--- NOTE | 2017-10-26 09:38 | CT ---
PROCEDURE: CT HEAD WITHOUT CONTRAST. HISTORY: Follow-up shunt revision COMPARISON: None available. TECHNIQUE: Axial computed tomography images were obtained through the head/brain without intravenous contrast. Radiation dose: Total exam DLP = 1073.39 mGy-cm. This CT exam was performed using one or more of the following dose reduction techniques: Automated exposure control, adjustment of the mA and/or kV according to patient size, and/or use of iterative reconstruction technique. FINDINGS: HEMORRHAGE: Small amount of hemorrhage again seen layering in the dependent portion of both atria/occipital horns. . BRAIN: Periventricular low-attenuation changes likely represent improving transependymal edema. Concomitant chronic sequela of small vessel disease not excluded. . No change right frontal shunt tube remnant or new left posterior parietal shunt tube. VENTRICLES: Decrease size of the lateral ventricles. Persistent but diminished amount of intraventricular air CALVARIUM: Unremarkable. PARANASAL SINUSES: Unremarkable as visualized. No significant inflammatory changes. MASTOID AIR CELLS: Unremarkable as visualized. No inflammatory changes. OTHER FINDINGS: None. IMPRESSION: Interval decrease size of the ventricular system. Persistent small amount of hemorrhage seen layering in the dependent portion of both atria and occipital horns. Persistent but diminished amount of intraventricular air
[2017-10-26] MEDS: Insulin Detemir 100 units/ml Vial (Levemir) SC SCH ×2 (10:28→21:00)
[2017-10-26] MEDS: Vancomycin 1 GM in Sodium Chloride 0.9% 200 ML IVPB SCH ×2 (10:28→22:10)
[2017-10-26] MEDS: Multiple Vitamins Oral Solution PO SCH (10:29)
[2017-10-26] MEDS: Saccharomyces Boulardi 250 mg Cap PO SCH ×2 (10:29→21:01)
--- NOTE | 2017-10-26 11:40 | CP.PCM.PN ---
Subjective - Date & Time of Evaluation Date of Evaluation: 10/26/17 Time of Evaluation: 11:39 - Subjective Subjective: much more awake and alert CT shows dec in vent size cont obs if stable can leave icu in am and consider subacute Objective - Vital Signs/Intake and Output Vital Signs (last 24 hours): Temp Pulse Resp BP Pulse Ox 99.1 F 75 14 154/88 H 98 10/26/17 08:00 10/26/17 11:00 10/26/17 11:00 10/26/17 10:52 10/26/17 11:00 Intake and Output: 10/26/17 10/26/17 06:59 18:59 Intake Total 1920 1000 Output Total 1000 Balance 920 1000 - Medications Medications: Current Medications Ascorbic Acid (Vitamin C 500 Mg Tab) 500 mg PO DAILY [facility] Last Admin: 10/26/17 10:29 Dose: 500 mg Cyanocobalamin (Vitamin B12 1000 Mcg Tab) 1,000 mcg PO DAILY [facility] Last Admin: 10/26/17 10:29 Dose: 1,000 mcg Dextrose (Dextrose 50% Inj) 0 ml IV STAT PRN; Protocol PRN Reason: Hypoglycemia Protocol Dextrose (Glutose 15) 0 gm PO ONCE PRN; Protocol PRN Reason: Hypoglycemia Protocol Glucagon (Glucagen Diagnostic Kit) 0 mg IM STAT PRN; Protocol PRN Reason: Hypoglycemia Protocol Valproate Sodium 500 mg/ (Sodium Chloride) 105 mls @ 100 mls/hr IVPB Q12H [facility] Last Admin: 10/26/17 01:27 Dose: 100 mls/hr Vancomycin HCl 1 gm/ Sodium (Chloride) 200 mls @ 133.333 mls/hr IVPB Q12 [facility] PRN Reason: Protocol Last Admin: 10/26/17 10:28 Dose: 133.333 mls/hr Meropenem 1 gm/ Sodium (Chloride) 100 mls @ 100 mls/hr IVPB Q8 [facility] PRN Reason: Protocol Last Admin: 10/26/17 05:59 Dose: 100 mls/hr Sodium Chloride (Sodium Chloride 0.9%) 1,000 mls @ 75 mls/hr IV .[id number] [facility] Last Admin: 10/26/17 11:34 Dose: Not Given Potassium Phosphate 15 mmole/ (Sodium Chloride) 255 mls @ 42.5 mls/hr IVPB ONCE ONE Stop: 10/26/17 13:55 Last Admin: 10/26/17 08:33 Dose: 42.5 mls/hr Insulin Aspart (Novolog) 0 unit SC Q6H [facility] PRN Reason: Protocol Last Admin: 10/26/17 06:28 Dose: 3 units Insulin Detemir (Levemir) 15 unit SC Q12 [facility] Last Admin: 10/26/17 10:28 Dose: 15 units Latanoprost (Xalatan Opht) 0 ml OU HS [facility] Last Admin: 10/25/17 21:17 Dose: 2.5 ml Multivitamins/Vitamin C (Multi-Delyn Liquid) 5 ml PO DAILY [facility] Last Admin: 10/26/17 10:29 Dose: 5 ml Ondansetron HCl (Zofran Inj) 4 mg IVP Q6H PRN PRN Reason: Nausea/Vomiting Pantoprazole Sodium (Protonix Inj) 40 mg IVP Q12H [facility] Last Admin: 10/26/17 05:59 Dose: 40 mg Saccharomyces Boulardii (Florastor) 250 mg PO Q12 [facility] Last Admin: 10/26/17 10:29 Dose: 250 mg Thiamine HCl (Vitamin B1 Tab) 100 mg PO BID [facility] Last Admin: 10/26/17 10:29 Dose: 100 mg - Labs Labs: 10/26/17 06:33 10/26/17 06:33 PT 13.0 SECONDS (9.7-12.2) H 10/23/17 04:53 INR 1.2 10/23/17 04:53 APTT 24 SECONDS (21-34) 10/23/17 04:53
--- NOTE | 2017-10-26 13:28 | CP.PCM.PN ---
Subjective - Date & Time of Evaluation Date of Evaluation: 10/26/17 Time of Evaluation: 13:28 - Subjective Subjective: Seen and examined by me. patient was opening her eyes when I called her name. Answered fine thank you in Kiswahili. follow directions. Discussed with her sister at bedside Objective - Vital Signs/Intake and Output Vital Signs (last 24 hours): Temp Pulse Resp BP Pulse Ox 99.2 F 89 18 131/62 100 10/26/17 12:00 10/26/17 13:00 10/26/17 13:00 10/26/17 12:51 10/26/17 13:00 Intake and Output: 10/26/17 10/26/17 06:59 18:59 Intake Total 1920 1220 Output Total 1000 Balance 920 1220 - Medications Medications: Current Medications Ascorbic Acid (Vitamin C 500 Mg Tab) 500 mg PO DAILY [facility] Last Admin: 10/26/17 10:29 Dose: 500 mg Cyanocobalamin (Vitamin B12 1000 Mcg Tab) 1,000 mcg PO DAILY [facility] Last Admin: 10/26/17 10:29 Dose: 1,000 mcg Dextrose (Dextrose 50% Inj) 0 ml IV STAT PRN; Protocol PRN Reason: Hypoglycemia Protocol Dextrose (Glutose 15) 0 gm PO ONCE PRN; Protocol PRN Reason: Hypoglycemia Protocol Glucagon (Glucagen Diagnostic Kit) 0 mg IM STAT PRN; Protocol PRN Reason: Hypoglycemia Protocol Valproate Sodium 500 mg/ (Sodium Chloride) 105 mls @ 100 mls/hr IVPB Q12H [facility] Last Admin: 10/26/17 01:27 Dose: 100 mls/hr Vancomycin HCl 1 gm/ Sodium (Chloride) 200 mls @ 133.333 mls/hr IVPB Q12 [facility] PRN Reason: Protocol Last Admin: 10/26/17 10:28 Dose: 133.333 mls/hr Meropenem 1 gm/ Sodium (Chloride) 100 mls @ 100 mls/hr IVPB Q8 [facility] PRN Reason: Protocol Last Admin: 10/26/17 05:59 Dose: 100 mls/hr Sodium Chloride (Sodium Chloride 0.9%) 1,000 mls @ 75 mls/hr IV .[id number] [facility] Last Admin: 10/26/17 11:34 Dose: Not Given Potassium Phosphate 15 mmole/ (Sodium Chloride) 255 mls @ 42.5 mls/hr IVPB ONCE ONE Stop: 10/26/17 13:55 Last Admin: 10/26/17 08:33 Dose: 42.5 mls/hr Insulin Aspart (Novolog) 0 unit SC Q6H [facility] PRN Reason: Protocol Last Admin: 10/26/17 12:39 Dose: 3 units Insulin Detemir (Levemir) 15 unit SC Q12 [facility] Last Admin: 10/26/17 10:28 Dose: 15 units Latanoprost (Xalatan Opht) 0 ml OU HS [facility] Last Admin: 10/25/17 21:17 Dose: 2.5 ml Multivitamins/Vitamin C (Multi-Delyn Liquid) 5 ml PO DAILY [facility] Last Admin: 10/26/17 10:29 Dose: 5 ml Ondansetron HCl (Zofran Inj) 4 mg IVP Q6H PRN PRN Reason: Nausea/Vomiting Pantoprazole Sodium (Protonix Inj) 40 mg IVP Q12H [facility] Last Admin: 10/26/17 05:59 Dose: 40 mg Saccharomyces Boulardii (Florastor) 250 mg PO Q12 [facility] Last Admin: 10/26/17 10:29 Dose: 250 mg Thiamine HCl (Vitamin B1 Tab) 100 mg PO BID [facility] Last Admin: 10/26/17 10:29 Dose: 100 mg - Labs Labs: 10/26/17 06:33 10/26/17 06:33 PT 13.0 SECONDS (9.7-12.2) H 10/23/17 04:53 INR 1.2 10/23/17 04:53 APTT 24 SECONDS (21-34) 10/23/17 04:53 - Constitutional Appears: No Acute Distress, Chronically Ill - Head Exam Head Exam: absent: ATRAUMATIC (right side surgical dressing on) - Eye Exam Eye Exam: Normal appearance, PERRL - ENT Exam ENT Exam: Mucous Membranes Moist - Neck Exam Neck Exam: Full ROM - Respiratory Exam Respiratory Exam: Clear to Ausculation Bilateral, NORMAL BREATHING PATTERN - Cardiovascular Exam Cardiovascular Exam: REGULAR RHYTHM - GI/Abdominal Exam GI & Abdominal Exam: Soft, Normal Bowel Sounds - Extremities Exam Extremities Exam: Full ROM, Normal Inspection - Back Exam Back Exam: NORMAL INSPECTION - Neurological Exam Neurological Exam: Awake - Psychiatric Exam Psychiatric exam: Normal Mood - Skin Skin Exam: Dry Assessment and Plan - Assessment and Plan (Free Text) Plan: 1. [employer] shunt malfunction and change in mental status. Multiple revision of [employer] shunt,s/p 4th revision on 10/23. Continue ICU monitoring Patient's mental status is improving CT head today shows decreasing ventricular size,air size improving and persistent small bleed. 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 [employer] Shunt repair -Patient is being followed by Neurosurgery Dr Hancock/Ella -[employer] shunt change 10/10/2017, 10/11/2017,10/20 ( Conversion of [employer] shunt to [facility], 10/23 ( Revision on ventricular peritoneal shunt.) by Dr Hancock and Dr Monroe -Neurology Dr. Mota following her -all cultures are negative -continue valproate for seizure prophylaxis -Getting meropenem and vancomycin as per Dr Milton Infectious disease 2.Altered Mental Status Improving and able to respond better today. continue tube feeding,keep NPO PT once she improves 3.DM 2 Accu checks ACHS Medium Dose insulin sliding scale Patient started on home levemir dose of 15 units BID Will hold home metformin for now Hypoglycemia protocol 4.HLD 5.Asthma Will continue to monitor saturation 6.Hypertension Home meds on hold,monitor her blood pressure resume oral meds once her mental status improves 7.Prophylactic measure scds protonix
--- NOTE | 2017-10-26 19:35 | CP.PCM.PN ---
Subjective - Date & Time of Evaluation Date of Evaluation: 10/26/17 Time of Evaluation: 02:00 - Subjective Subjective: dictated Objective - Vital Signs/Intake and Output Vital Signs (last 24 hours): Temp Pulse Resp BP Pulse Ox 98.6 F 70 11 L 84/52 L 100 10/26/17 16:00 10/26/17 19:00 10/26/17 19:00 10/26/17 18:51 10/26/17 19:00 Intake and Output: 10/26/17 10/27/17 18:59 06:59 Intake Total 1969 110 Output Total 1300 Balance 1969 -1190 - Medications Medications: Current Medications Ascorbic Acid (Vitamin C 500 Mg Tab) 500 mg PO DAILY [facility] Last Admin: 10/26/17 10:29 Dose: 500 mg Cyanocobalamin (Vitamin B12 1000 Mcg Tab) 1,000 mcg PO DAILY [facility] Last Admin: 10/26/17 10:29 Dose: 1,000 mcg Dextrose (Dextrose 50% Inj) 0 ml IV STAT PRN; Protocol PRN Reason: Hypoglycemia Protocol Dextrose (Glutose 15) 0 gm PO ONCE PRN; Protocol PRN Reason: Hypoglycemia Protocol Glucagon (Glucagen Diagnostic Kit) 0 mg IM STAT PRN; Protocol PRN Reason: Hypoglycemia Protocol Valproate Sodium 500 mg/ (Sodium Chloride) 105 mls @ 100 mls/hr IVPB Q12H [facility] Last Admin: 10/26/17 13:29 Dose: 100 mls/hr Vancomycin HCl 1 gm/ Sodium (Chloride) 200 mls @ 133.333 mls/hr IVPB Q12 [facility] PRN Reason: Protocol Last Admin: 10/26/17 10:28 Dose: 133.333 mls/hr Meropenem 1 gm/ Sodium (Chloride) 100 mls @ 100 mls/hr IVPB Q8 [facility] PRN Reason: Protocol Last Admin: 10/26/17 13:28 Dose: 100 mls/hr Sodium Chloride (Sodium Chloride 0.9%) 1,000 mls @ 75 mls/hr IV .[id number] [facility] Last Admin: 10/26/17 11:34 Dose: Not Given Insulin Aspart (Novolog) 0 unit SC Q6H [facility] PRN Reason: Protocol Last Admin: 10/26/17 17:46 Dose: 2 units Insulin Detemir (Levemir) 15 unit SC Q12 [facility] Last Admin: 10/26/17 10:28 Dose: 15 units Latanoprost (Xalatan Opht) 0 ml OU HS [facility] Last Admin: 10/25/17 21:17 Dose: 2.5 ml Multivitamins/Vitamin C (Multi-Delyn Liquid) 5 ml PO DAILY [facility] Last Admin: 10/26/17 10:29 Dose: 5 ml Ondansetron HCl (Zofran Inj) 4 mg IVP Q6H PRN PRN Reason: Nausea/Vomiting Pantoprazole Sodium (Protonix Inj) 40 mg IVP Q12H [facility] Last Admin: 10/26/17 17:46 Dose: 40 mg Saccharomyces Boulardii (Florastor) 250 mg PO Q12 [facility] Last Admin: 10/26/17 10:29 Dose: 250 mg Thiamine HCl (Vitamin B1 Tab) 100 mg PO BID [facility] Last Admin: 10/26/17 17:46 Dose: 100 mg - Labs Labs: 10/26/17 06:33 10/26/17 06:33 PT 13.0 SECONDS (9.7-12.2) H 10/23/17 04:53 INR 1.2 10/23/17 04:53 APTT 24 SECONDS (21-34) 10/23/17 04:53
--- NOTE | 2017-10-26 20:39 | CP.CCUPN ---
<Ernestine Posadas - Last Filed: 10/26/17 20:35> CCU Subjective - Physician Review Subjective (Free Text): Patient seen and examined at bedside. Patient is s/p 4th shunt revision 10/23. Patient is more alert and responsive, able to speak in small phrases, follows commands. CCU Objective - Vital Signs / Intake & Output Vital Signs (Last 4 hours): Vital Signs Pulse Resp BP Pulse Ox 10/26/17 19:00 70 11 L 100 10/26/17 18:51 70 12 84/52 L 100 10/26/17 18:00 74 10 L 100 10/26/17 17:52 73 13 125/63 100 10/26/17 17:00 79 13 100 10/26/17 16:51 79 14 169/76 H 100 Intake and Output (Last 8hrs): Intake & Output 10/26/17 10/26/17 10/26/17 06:59 14:59 22:59 Intake Total 1280 1530 550 Output Total 1000 1300 Balance 280 1530 -750 Weight 211 lb 10.3 oz Intake: Intake, IV Amount 1000 1250 375 Right Internal Jugular 600 900 375 Right Medial Port 400 350 Internal Jugular Tube Feeding 280 280 175 Output: Urine 1000 1300 Urine, Voided 1000 1300 - Physical Exam Head: Positive for: Normocephalic Pupils: Positive for: PERRL Extroacular Muscles: Positive for: EOMI Mouth: Positive for: Dry, Other Pharnyx: Positive for: TONSILS ENLARGED Nose (Internal): Positive for: Other (NGT in place ) Respiratory/Chest: Positive for: Clear to Auscultation. Negative for: Respiratory Distress Cardiovascular: Positive for: Regular Rate and Rhythm Abdomen: Positive for: Normal Bowel Sounds. Negative for: Tenderness, Distention Upper Extremity: Positive for: Normal Inspection, NORMAL PULSES, Neurovascularly Intact, Capillary Refill < 2s Lower Extremity: Positive for: Normal Inspection, NORMAL PULSES, Neurovascularly Intact, Capillary Refill < 2 s Neurological: Positive for: Other (Unable to full assese, Pt Lethargic, Only responding to pain) Skin: Positive for: Warm, Dry, Normal Color Psychiatric: Positive for: Other (Lethargic). Negative for: Alert, Oriented x 3 - Medications Active Medications: Active Medications Generic Name Dose Route Start Last Admin Trade Name Freq PRN Reason Stop Dose Admin Ascorbic Acid 500 mg 10/21/17 12:00 10/26/17 10:29 Vitamin C 500 Mg Tab PO 500 mg DAILY MOLLY Administration Cyanocobalamin 1,000 mcg 10/21/17 12:00 10/26/17 10:29 Vitamin B12 1000 Mcg Tab PO 1,000 mcg DAILY MOLLY Administration Dextrose 0 ml 10/03/17 13:28 Dextrose 50% Inj IV STAT PRN Hypoglycemia Protocol Protocol Dextrose 0 gm 10/03/17 13:28 Glutose 15 PO ONCE PRN Hypoglycemia Protocol Protocol Glucagon 0 mg 10/03/17 13:28 Glucagen Diagnostic Kit IM STAT PRN Hypoglycemia Protocol Protocol Valproate Sodium 500 mg/ 105 mls @ 100 mls/hr 10/11/17 14:03 10/26/17 13:29 Sodium Chloride IVPB 100 mls/hr Q12H MOLLY Administration Vancomycin HCl 1 gm/ Sodium 200 mls @ 133.333 mls/hr 10/20/17 22:00 10/26/17 10:28 Chloride IVPB 133.333 mls/hr Q12 MOLLY Administration Protocol Meropenem 1 gm/ Sodium 100 mls @ 100 mls/hr 10/20/17 22:00 10/26/17 13:28 Chloride IVPB 100 mls/hr Q8 MOLLY Administration Protocol Sodium Chloride 1,000 mls @ 75 mls/hr 10/20/17 20:00 10/26/17 11:34 Sodium Chloride 0.9% IV Not Given .[id number] MOLLY Insulin Aspart 0 unit 10/21/17 18:00 10/26/17 17:46 Novolog SC 2 units Q6H MOLLY Administration Protocol Insulin Detemir 15 unit 10/15/17 22:00 10/26/17 10:28 Levemir SC 15 units Q12 MOLLY Administration Latanoprost 0 ml 10/03/17 22:00 10/25/17 21:17 Xalatan Opht OU 2.5 ml HS MOLLY Administration Multivitamins/Vitamin C 5 ml 10/21/17 12:00 10/26/17 10:29 Multi-Delyn Liquid PO 5 ml DAILY MOLLY Administration Ondansetron HCl 4 mg 10/26/17 11:30 Zofran Inj IVP Q6H PRN Nausea/Vomiting Pantoprazole Sodium 40 mg 10/20/17 17:30 10/26/17 17:46 Protonix Inj IVP 40 mg Q12H MOLLY Administration Saccharomyces Boulardii 250 mg 10/23/17 22:00 10/26/17 10:29 Florastor PO 250 mg Q12 MOLLY Administration Thiamine HCl 100 mg 10/21/17 12:00 10/26/17 17:46 Vitamin B1 Tab PO 100 mg BID MOLLY Administration - Patient Studies Lab Studies: Microbiology Studies 10/20/17 19:30 Blood Culture - Final Blood-Thru Central Line NO GROWTH AFTER 5 DAYS Gram Stain - Final TEST NOT PERFORMED 10/20/17 20:00 Blood Culture - Final Blood-Thru Central Line NO GROWTH AFTER 5 DAYS Lab Studies 10/26/17 10/26/17 10/26/17 Range/Units 11:38 06:33 06:33 WBC (4.8-10.8) K/uL RBC (3.80-5.20) Mil/uL Hgb (11.0-16.0) g/dL Hct (34.0-47.0) % MCV (81.0-99.0) fL MCH (27.0-31.0) pg MCHC (33.0-37.0) g/dL RDW (11.5-14.5) % Plt Count (130-400) K/uL MPV (7.2-11.7) fL Neut % (Auto) (50.0-75.0) % Lymph % (Auto) (20.0-40.0) % Todd % (Auto) (0.0-10.0) % Eos % (Auto) (0.0-4.0) % Baso % (Auto) (0.0-2.0) % Neut # (Auto) (1.8-7.0) K/uL Lymph # (Auto) (1.0-4.3) K/uL Todd # (Auto) (0.0-0.8) K/uL Eos # (Auto) (0.0-0.7) K/uL Baso # (Auto) (0.0-0.2) K/uL Sodium 141 (132-148) mmol/L Potassium 3.6 (3.6-5.2) mmol/L Chloride 103 (98-107) mmol/L Carbon Dioxide 31 H (22-30) mmol/L Anion Gap 11 (10-20) BUN 13 (7-17) mg/dL Creatinine 0.5 L (0.7-1.2) mg/dL Est GFR ( Amer) > 60 Est GFR (Non-Af Amer) > 60 POC Glucose (mg/dL) 224 H (65-110) mg/dL Random Glucose 223 H (65-105) mg/dL Serum Osmolality 299 (272-300) mosm/kg Calcium 8.2 L (8.6-10.4) mg/dl Phosphorus 2.4 L (2.5-4.5) mg/dL Magnesium 2.1 (1.6-2.3) mg/dL Total Bilirubin 0.4 (0.2-1.3) mg/dL AST 16 (14-36) U/L ALT 29 (9-52) U/L Alkaline Phosphatase 72 (38-126) U/L Total Protein 5.8 L (6.3-8.3) g/dL Albumin 3.0 L (3.5-5.0) g/dL Globulin 2.8 (2.2-3.9) gm/dL Albumin/Globulin Ratio 1.1 (1.0-2.1) 10/26/17 10/26/17 10/25/17 Range/Units 06:33 06:13 23:48 WBC 6.5 (4.8-10.8) K/uL RBC 3.86 (3.80-5.20) Mil/uL Hgb 11.2 (11.0-16.0) g/dL Hct 33.5 L (34.0-47.0) % MCV 86.8 (81.0-99.0) fL MCH 29.1 (27.0-31.0) pg MCHC 33.5 (33.0-37.0) g/dL RDW 15.2 H (11.5-14.5) % Plt Count 260 (130-400) K/uL MPV 8.4 (7.2-11.7) fL Neut % (Auto) 67.6 (50.0-75.0) % Lymph % (Auto) 23.0 (20.0-40.0) % Todd % (Auto) 6.7 (0.0-10.0) % Eos % (Auto) 1.8 (0.0-4.0) % Baso % (Auto) 0.9 (0.0-2.0) % Neut # (Auto) 4.4 (1.8-7.0) K/uL Lymph # (Auto) 1.5 (1.0-4.3) K/uL Todd # (Auto) 0.4 (0.0-0.8) K/uL Eos # (Auto) 0.1 (0.0-0.7) K/uL Baso # (Auto) 0.1 (0.0-0.2) K/uL Sodium (132-148) mmol/L Potassium (3.6-5.2) mmol/L Chloride (98-107) mmol/L Carbon Dioxide (22-30) mmol/L Anion Gap (10-20) BUN (7-17) mg/dL Creatinine (0.7-1.2) mg/dL Est GFR ( Amer) Est GFR (Non-Af Amer) POC Glucose (mg/dL) 221 H 237 H (65-110) mg/dL Random Glucose (65-105) mg/dL Serum Osmolality (272-300) mosm/kg Calcium (8.6-10.4) mg/dl Phosphorus (2.5-4.5) mg/dL Magnesium (1.6-2.3) mg/dL Total Bilirubin (0.2-1.3) mg/dL AST (14-36) U/L ALT (9-52) U/L Alkaline Phosphatase (38-126) U/L Total Protein (6.3-8.3) g/dL Albumin (3.5-5.0) g/dL Globulin (2.2-3.9) gm/dL Albumin/Globulin Ratio (1.0-2.1) Laboratory Results - last 24 hr 10/25/17 10/26/17 10/26/17 23:48 06:13 06:33 WBC 6.5 RBC 3.86 Hgb 11.2 Hct 33.5 L MCV 86.8 MCH 29.1 MCHC 33.5 RDW 15.2 H Plt Count 260 MPV 8.4 Neut % (Auto) 67.6 Lymph % (Auto) 23.0 Todd % (Auto) 6.7 Eos % (Auto) 1.8 Baso % (Auto) 0.9 Neut # (Auto) 4.4 Lymph # (Auto) 1.5 Todd # (Auto) 0.4 Eos # (Auto) 0.1 Baso # (Auto) 0.1 Sodium Potassium Chloride Carbon Dioxide Anion Gap BUN Creatinine Est GFR ( Amer) Est GFR (Non-Af Amer) POC Glucose (mg/dL) 237 H 221 H Random Glucose Serum Osmolality Calcium Phosphorus Magnesium Total Bilirubin AST ALT Alkaline Phosphatase Total Protein Albumin Globulin Albumin/Globulin Ratio 10/26/17 10/26/17 10/26/17 06:33 06:33 11:38 WBC RBC Hgb Hct MCV MCH MCHC RDW Plt Count MPV Neut % (Auto) Lymph % (Auto) Todd % (Auto) Eos % (Auto) Baso % (Auto) Neut # (Auto) Lymph # (Auto) Todd # (Auto) Eos # (Auto) Baso # (Auto) Sodium 141 Potassium 3.6 Chloride 103 Carbon Dioxide 31 H Anion Gap 11 BUN 13 Creatinine 0.5 L Est GFR ( Amer) > 60 Est GFR (Non-Af Amer) > 60 POC Glucose (mg/dL) 224 H Random Glucose 223 H Serum Osmolality 299 Calcium 8.2 L Phosphorus 2.4 L Magnesium 2.1 Total Bilirubin 0.4 AST 16 ALT 29 Alkaline Phosphatase 72 Total Protein 5.8 L Albumin 3.0 L Globulin 2.8 Albumin/Globulin Ratio 1.1 Fingerstick Blood Sugar Results: 192 Critical Care Progress Note - Nutrition Nutrition: Nutrition Category Date Time Status NPO Diet [DIET] Diets 10/20/17 Dinner Active Assessment/Plan - Assessment and Plan (Free Text) Assessment: Ms. Diaz is a 66 year old female with PMHx of HTN, HLD, T2DM, and NPH with ASSET MANAGEMENT ANALYST shunt placed in 2014, she underwent 4 ASSET MANAGEMENT ANALYST shunt revisions 02/26/17, 3 during this admission (10/10/2017, 10/11/2017, 10/19/2017, and 10/23/17). Patient admitted to the ICU for AMS and enlarging ventricles noted on CT Scan. S/P revision on - continue to observe in ICU. 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 Milton consulted - Shunt placed in 2014 - ASSET MANAGEMENT ANALYST Shunt repair 02/26/17 - s/p ASSET MANAGEMENT ANALYST shunt revision - 3rd this hospital stay (10/10/2017, 10/11/2017, 10/19/2017 , 10/23/2017) - S/P Revision 10/23/17 - placement of left parietal pleural shunt - Head CT 10/23: Interval placement new left posterior superior parietal shunt tube with decrease size of the ventricles. Intraventricular air with small amount of hemorrhage layering within the dependent portion of the atria and occipital horns. Decrease size of the ventricles with improved periventricular white matter changes -transependymal edema. - Repeat Head CT 10/26: Interval decrease size of the ventricular system. Persistent small amount of hemorrhage seen layering in the dependent portion of both atria and occipital horns. Persistent but diminished amount of intraventricular air - Continue with 100% O2 -keep MAP ~100, ICP 10: CPP >70 -continue IV NS, osmol 305, will increase NA near 145 -keep HOB >30 - Mannitol 25grams given x 1 - Started on vanco Q12 and Meropenem 10/20 - Teague cultures - negative to date Neurology consulted, Dr. Nixon - Continue valproate 500mg IVPB q12h for seizure prophylaxis Cardio: A: Hypertension - Held Amlodipine 5mg PO daily, Metoprolol Tart 12.5mg PO BID A: HLD - Crestor 5 mg po hs - HELD Pulm A: Hx Asthma Endo: A: Diabetes - Accuchecks - Medium Dose insulin sliding scale, Levemir dose of 15 units BID, ISS- low Prophylaxis - SCDs - Protonix Q12 - Right TLC placed 10/23/17 DW Ernestine Perez DO, PGY-1 <Lonny Cottrell M - Last Filed: 10/28/17 21:29> CCU Objective - Vital Signs / Intake & Output Vital Signs (Last 4 hours): Vital Signs Temp Pulse Resp BP 10/28/17 20:00 99.3 F 86 16 132/74 Intake and Output (Last 8hrs): Intake & Output 10/28/17 10/28/17 10/28/17 06:59 14:59 22:59 Intake Total 580 380 310 Output Total 1000 500 Balance -420 380 -190 Intake: Intake, IV Amount 300 100 100 Right Internal Jugular 100 100 Right Medial Port 300 Internal Jugular Tube Feeding 280 280 210 Output: Urine 1000 500 Urine, Voided 1000 500 Other: # Voids Urine, Voided 1 - Medications Active Medications: Active Medications Generic Name Dose Route Start Last Admin Trade Name Freq PRN Reason Stop Dose Admin Ascorbic Acid 500 mg 10/21/17 12:00 10/28/17 10:43 Vitamin C 500 Mg Tab PO 500 mg DAILY MOLLY Administration Cyanocobalamin 1,000 mcg 10/21/17 12:00 10/28/17 10:43 Vitamin B12 1000 Mcg Tab PO 1,000 mcg DAILY MOLLY Administration Dextrose 0 ml 10/03/17 13:28 Dextrose 50% Inj IV STAT PRN Hypoglycemia Protocol Protocol Dextrose 0 gm 10/03/17 13:28 Glutose 15 PO ONCE PRN Hypoglycemia Protocol Protocol Docusate Sodium 100 mg 10/27/17 10:00 10/28/17 17:09 Colace PO 100 mg TID MOLLY Administration Glucagon 0 mg 10/03/17 13:28 Glucagen Diagnostic Kit IM STAT PRN Hypoglycemia Protocol Protocol Valproate Sodium 1,000 mg/ 110 mls @ 100 mls/hr 10/28/17 15:00 10/28/17 17:09 Sodium Chloride IVPB 100 mls/hr Q12H MOLLY Administration Insulin Aspart 0 unit 10/21/17 18:00 10/28/17 18:19 Novolog SC 4 units Q6H MOLLY Administration Protocol Insulin Detemir 18 unit 10/28/17 09:58 10/28/17 21:17 Levemir SC 18 u Q12 MOLLY Administration Lactulose 20 gm 10/27/17 09:06 Enulose PO HS PRN Constipation Latanoprost 0 ml 10/03/17 22:00 10/28/17 21:18 Xalatan Opht OU 2.5 ml HS MOLLY Administration Multivitamins/Vitamin C 5 ml 10/21/17 12:00 10/28/17 10:44 Multi-Delyn Liquid PO 5 ml DAILY MOLLY Administration Ondansetron HCl 4 mg 10/26/17 11:30 Zofran Inj IVP Q6H PRN Nausea/Vomiting Pantoprazole Sodium 40 mg 10/20/17 17:30 10/28/17 17:10 Protonix Inj IVP 40 mg Q12H MOLLY Administration Saccharomyces Boulardii 250 mg 10/23/17 22:00 10/28/17 21:17 Florastor PO 250 mg Q12 MOLLY Administration Thiamine HCl 100 mg 10/21/17 12:00 10/28/17 17:10 Vitamin B1 Tab PO 100 mg BID MOLLY Administration - Patient Studies Lab Studies: Lab Studies 10/28/17 10/28/17 10/28/17 Range/Units 17:47 11:49 06:48 WBC (4.8-10.8) K/uL RBC (3.80-5.20) Mil/uL Hgb (11.0-16.0) g/dL Hct (34.0-47.0) % MCV (81.0-99.0) fL MCH (27.0-31.0) pg MCHC (33.0-37.0) g/dL RDW (11.5-14.5) % Plt Count (130-400) K/uL MPV (7.2-11.7) fL Neut % (Auto) (50.0-75.0) % Lymph % (Auto) (20.0-40.0) % Todd % (Auto) (0.0-10.0) % Eos % (Auto) (0.0-4.0) % Baso % (Auto) (0.0-2.0) % Neut # (Auto) (1.8-7.0) K/uL Lymph # (Auto) (1.0-4.3) K/uL Todd # (Auto) (0.0-0.8) K/uL Eos # (Auto) (0.0-0.7) K/uL Baso # (Auto) (0.0-0.2) K/uL Sodium (132-148) mmol/L Potassium (3.6-5.2) mmol/L Chloride (98-107) mmol/L Carbon Dioxide (22-30) mmol/L Anion Gap (10-20) BUN (7-17) mg/dL Creatinine (0.7-1.2) mg/dL Est GFR ( Amer) Est GFR (Non-Af Amer) POC Glucose (mg/dL) 253 H 247 H (65-110) mg/dL Random Glucose (65-105) mg/dL Serum Osmolality 309 H (272-300) mosm/kg Calcium (8.6-10.4) mg/dl Phosphorus (2.5-4.5) mg/dL Magnesium (1.6-2.3) mg/dL Total Bilirubin (0.2-1.3) mg/dL AST (14-36) U/L ALT (9-52) U/L Alkaline Phosphatase (38-126) U/L Total Protein (6.3-8.3) g/dL Albumin (3.5-5.0) g/dL Globulin (2.2-3.9) gm/dL Albumin/Globulin Ratio (1.0-2.1) 10/28/17 10/28/17 10/28/17 Range/Units 06:48 06:04 04:00 WBC 7.2 (4.8-10.8) K/uL RBC 3.92 (3.80-5.20) Mil/uL Hgb 11.5 (11.0-16.0) g/dL Hct 34.0 (34.0-47.0) % MCV 86.8 (81.0-99.0) fL MCH 29.3 (27.0-31.0) pg MCHC 33.7 (33.0-37.0) g/dL RDW 14.7 H (11.5-14.5) % Plt Count 352 (130-400) K/uL MPV 8.1 (7.2-11.7) fL Neut % (Auto) 62.9 (50.0-75.0) % Lymph % (Auto) 26.2 (20.0-40.0) % Todd % (Auto) 7.7 (0.0-10.0) % Eos % (Auto) 2.4 (0.0-4.0) % Baso % (Auto) 0.8 (0.0-2.0) % Neut # (Auto) 4.5 (1.8-7.0) K/uL Lymph # (Auto) 1.9 (1.0-4.3) K/uL Todd # (Auto) 0.6 (0.0-0.8) K/uL Eos # (Auto) 0.2 (0.0-0.7) K/uL Baso # (Auto) 0.1 (0.0-0.2) K/uL Sodium 142 (132-148) mmol/L Potassium 4.2 (3.6-5.2) mmol/L Chloride 104 (98-107) mmol/L Carbon Dioxide 29 (22-30) mmol/L Anion Gap 13 (10-20) BUN 17 (7-17) mg/dL Creatinine 0.5 L (0.7-1.2) mg/dL Est GFR ( Amer) > 60 Est GFR (Non-Af Amer) > 60 POC Glucose (mg/dL) 220 H (65-110) mg/dL Random Glucose 200 H (65-105) mg/dL Serum Osmolality (272-300) mosm/kg Calcium 8.6 (8.6-10.4) mg/dl Phosphorus 2.9 (2.5-4.5) mg/dL Magnesium 2.2 (1.6-2.3) mg/dL Total Bilirubin 0.4 (0.2-1.3) mg/dL AST 19 (14-36) U/L ALT 23 (9-52) U/L Alkaline Phosphatase 69 (38-126) U/L Total Protein 6.0 L (6.3-8.3) g/dL Albumin 3.2 L (3.5-5.0) g/dL Globulin 2.8 (2.2-3.9) gm/dL Albumin/Globulin Ratio 1.2 (1.0-2.1) 10/27/17 Range/Units 23:24 WBC (4.8-10.8) K/uL RBC (3.80-5.20) Mil/uL Hgb (11.0-16.0) g/dL Hct (34.0-47.0) % MCV (81.0-99.0) fL MCH (27.0-31.0) pg MCHC (33.0-37.0) g/dL RDW (11.5-14.5) % Plt Count (130-400) K/uL MPV (7.2-11.7) fL Neut % (Auto) (50.0-75.0) % Lymph % (Auto) (20.0-40.0) % Todd % (Auto) (0.0-10.0) % Eos % (Auto) (0.0-4.0) % Baso % (Auto) (0.0-2.0) % Neut # (Auto) (1.8-7.0) K/uL Lymph # (Auto) (1.0-4.3) K/uL Todd # (Auto) (0.0-0.8) K/uL Eos # (Auto) (0.0-0.7) K/uL Baso # (Auto) (0.0-0.2) K/uL Sodium (132-148) mmol/L Potassium (3.6-5.2) mmol/L Chloride (98-107) mmol/L Carbon Dioxide (22-30) mmol/L Anion Gap (10-20) BUN (7-17) mg/dL Creatinine (0.7-1.2) mg/dL Est GFR ( Amer) Est GFR (Non-Af Amer) POC Glucose (mg/dL) 259 H (65-110) mg/dL Random Glucose (65-105) mg/dL Serum Osmolality (272-300) mosm/kg Calcium (8.6-10.4) mg/dl Phosphorus (2.5-4.5) mg/dL Magnesium (1.6-2.3) mg/dL Total Bilirubin (0.2-1.3) mg/dL AST (14-36) U/L ALT (9-52) U/L Alkaline Phosphatase (38-126) U/L Total Protein (6.3-8.3) g/dL Albumin (3.5-5.0) g/dL Globulin (2.2-3.9) gm/dL Albumin/Globulin Ratio (1.0-2.1) Laboratory Results - last 24 hr 10/27/17 10/28/17 10/28/17 23:24 04:00 06:04 WBC 7.2 RBC 3.92 Hgb 11.5 Hct 34.0 MCV 86.8 MCH 29.3 MCHC 33.7 RDW 14.7 H Plt Count 352 MPV 8.1 Neut % (Auto) 62.9 Lymph % (Auto) 26.2 Todd % (Auto) 7.7 Eos % (Auto) 2.4 Baso % (Auto) 0.8 Neut # (Auto) 4.5 Lymph # (Auto) 1.9 Todd # (Auto) 0.6 Eos # (Auto) 0.2 Baso # (Auto) 0.1 Sodium Potassium Chloride Carbon Dioxide Anion Gap BUN Creatinine Est GFR ( Amer) Est GFR (Non-Af Amer) POC Glucose (mg/dL) 259 H 220 H Random Glucose Serum Osmolality Calcium Phosphorus Magnesium Total Bilirubin AST ALT Alkaline Phosphatase Total Protein Albumin Globulin Albumin/Globulin Ratio 10/28/17 10/28/17 10/28/17 06:48 06:48 11:49 WBC RBC Hgb Hct MCV MCH MCHC RDW Plt Count MPV Neut % (Auto) Lymph % (Auto) Todd % (Auto) Eos % (Auto) Baso % (Auto) Neut # (Auto) Lymph # (Auto) Todd # (Auto) Eos # (Auto) Baso # (Auto) Sodium 142 Potassium 4.2 Chloride 104 Carbon Dioxide 29 Anion Gap 13 BUN 17 Creatinine 0.5 L Est GFR ( Amer) > 60 Est GFR (Non-Af Amer) > 60 POC Glucose (mg/dL) 247 H Random Glucose 200 H Serum Osmolality 309 H Calcium 8.6 Phosphorus 2.9 Magnesium 2.2 Total Bilirubin 0.4 AST 19 ALT 23 Alkaline Phosphatase 69 Total Protein 6.0 L Albumin 3.2 L Globulin 2.8 Albumin/Globulin Ratio 1.2 10/28/17 17:47 WBC RBC Hgb Hct MCV MCH MCHC RDW Plt Count MPV Neut % (Auto) Lymph % (Auto) Todd % (Auto) Eos % (Auto) Baso % (Auto) Neut # (Auto) Lymph # (Auto) Todd # (Auto) Eos # (Auto) Baso # (Auto) Sodium Potassium Chloride Carbon Dioxide Anion Gap BUN Creatinine Est GFR ( Amer) Est GFR (Non-Af Amer) POC Glucose (mg/dL) 253 H Random Glucose Serum Osmolality Calcium Phosphorus Magnesium Total Bilirubin AST ALT Alkaline Phosphatase Total Protein Albumin Globulin Albumin/Globulin Ratio Critical Care Progress Note - Nutrition Nutrition: Nutrition Category Date Time Status NPO Diet [DIET] Diets 10/20/17 Dinner Active Assessment/Plan (1) Hydrocephalus Current Visit: Yes Status: Acute (2) Mental status change Current Visit: Yes Status: Acute (3) JOHN (acute kidney injury) Current Visit: No Status: Acute (4) Obstructed ASSET MANAGEMENT ANALYST shunt Current Visit: No Status: Acute Attending/Attestation - Attestation I have personally seen and examined this patient.: Yes I have fully participated in the care of the patient.: Yes I have reviewed all pertinent clinical information: Yes Notes (Text): 10/26/17 Today: October The Patient was seen and examined at the bedside, Medical records reviewed, and management issues were discussed and formulated with the house staff. I have reviewed all the relevant clinical, laboratory, hemodynamic, radiographic data and medications Events reviewed Pain issues, skin care, head of the bed elevation, glycemic control were addressed. Agree with above resident's assessment and treatment plans of care as transcribed in Dr. Posadas note.
[2017-10-26] MEDS: Latanoprost 2.5 ml Opht Soln OU SCH (21:04)
--- NOTE | 2017-10-26 23:09 | PN ---
DATE: 10/26/2017 SUBJECTIVE: The patient was seen today. She still was in ICU. She is on a nonrebreather mask. She went for a CAT scan this morning and told she is more alert. OBJECTIVE: GENERAL: She has no fever. VITAL SIGNS: T max is 99.2, pulse 91, blood pressure is 174/82, respirations are 17. HEENT: She has a dressing on her head on the parietal area and one on the left side. She is opening her eyes, does not verbalize might but seem to comprehend according to the family member. LUNGS: Clear. HEART: S1, S2 is regular. ABDOMEN: Soft, nontender. No guarding, no rigidity present. EXTREMITIES: With the foot protectors. LABORATORY DATA: White count is 6.5, hemoglobin 11.2, hematocrit 33.5. Sodium is 141, potassium 3.6, chlorides are 103, CO2 is 31, BUN is 13, creatinine 0.5, glucose is 224. IMAGING STUDIES: She had another head CT done this morning which shows interval decreased size of the ventricle system persistence small amount of hemorrhage seen layering in the dependent portion of both atria and occipital horns persistent but diminished amount of intraventricular air. ASSESSMENT AND PLAN: So, the air is diminishing and the patient had status post neurosurgery and she had a new left parietal pleural shunt placed on the left side and had three surgeries on this admission. Neurosurgery is on this admission. She is still on antibiotics prophylactically. Cultures have been all negative. We will continue that for now until she leaves for the rehab. We will follow. Naga Milton MD
[2017-10-27] MEDS: (Novolog) Insulin Aspart, Recombinant 100 u/ml 10 ml vial SC SCH ×4 (00:31→18:02)
[2017-10-27] MEDS: Valproate 500 MG in Sodium Chloride 0.9% 100 ML IVPB SCH ×2 (01:38→13:57)
[2017-10-27] MEDS: Meropenem 1 GM in Sodium Chloride 0.9% 100 ML IVPB SCH (05:39)
[2017-10-27 06:58] LABS: BASO # 0.1 K/uL (0.0-0.2); BASO % 1.1 % (0.0-2.0); EOS # 0.2 K/uL (0.0-0.7); EOS % 2.2 % (0.0-4.0); HEMOGLOBIN 11.3 g/dL (11.0-16.0); LYMPH # 1.9 K/uL (1.0-4.3); LYMPH % 26.1 % (20.0-40.0); MEAN CELL VOLUME 86.4 fL (81.0-99.0); MEAN CORPUSCULAR HEMOGLOBIN 29.7 pg (27.0-31.0); MEAN CORPUSCULAR HGB CONC 34.4 g/dL (33.0-37.0); MEAN PLATELET VOLUME 8.3 fL (7.2-11.7); MONO # 0.5 K/uL (0.0-0.8); MONO % 6.3 % (0.0-10.0); NEUT # 4.7 K/uL (1.8-7.0); NEUT % 64.3 % (50.0-75.0); RBC 3.82 Mil/uL (3.80-5.20); RED CELL DISTRIBUTION WIDTH 14.8 % (11.5-14.5); WHITE BLOOD COUNT 7.3 K/uL (4.8-10.8)
[2017-10-27 07:08] LABS: ALB/GLOB RATIO 1.1 (1.0-2.1); ALT/SGPT 25 U/L (9-52); AST/SGOT 17 U/L (14-36); BLOOD UREA NITROGEN 15 mg/dL (7-17); CALCIUM 8.4 mg/dl (8.6-10.4); GFR AFRICAN-AMERICAN > 60; GFR NON-AFRICAN AMERICAN > 60
--- NOTE | 2017-10-27 07:24 | CP.PCM.PN ---
Subjective - Date & Time of Evaluation Date of Evaluation: 10/27/17 Time of Evaluation: 07:23 - Subjective Subjective: Ms. Diaz was seen and examined at the bedside in ICU. She is awake, but able to answer simple questions such as no or ok.. Her pupils sluggish with 3 mm size in her left and non -reactive to the right with right eye does not fully move to the lateral area. She is on non-rebreather for oxygen maintenance. She is able to follow some commands such as squeezing her right arm moving her left upper extremity and bilateral lower extremities which her lower extremities movement improved from previous examination. Her abdomen is distended, hypoactive bowel sounds.She has the right parietal area dressing intact. There was no untoward events overnight. Objective - Vital Signs/Intake and Output Vital Signs (last 24 hours): Temp Pulse Resp BP Pulse Ox 99 F 81 15 120/73 99 10/27/17 04:00 10/27/17 07:00 10/27/17 07:00 10/27/17 06:51 10/27/17 07:00 Intake and Output: 10/27/17 10/27/17 06:59 18:59 Intake Total 1815 Output Total 2900 Balance -1085 - Medications Medications: Current Medications Ascorbic Acid (Vitamin C 500 Mg Tab) 500 mg PO DAILY [facility] Last Admin: 10/26/17 10:29 Dose: 500 mg Cyanocobalamin (Vitamin B12 1000 Mcg Tab) 1,000 mcg PO DAILY [facility] Last Admin: 10/26/17 10:29 Dose: 1,000 mcg Dextrose (Dextrose 50% Inj) 0 ml IV STAT PRN; Protocol PRN Reason: Hypoglycemia Protocol Dextrose (Glutose 15) 0 gm PO ONCE PRN; Protocol PRN Reason: Hypoglycemia Protocol Glucagon (Glucagen Diagnostic Kit) 0 mg IM STAT PRN; Protocol PRN Reason: Hypoglycemia Protocol Valproate Sodium 500 mg/ (Sodium Chloride) 105 mls @ 100 mls/hr IVPB Q12H [facility] Last Admin: 10/27/17 01:38 Dose: 100 mls/hr Vancomycin HCl 1 gm/ Sodium (Chloride) 200 mls @ 133.333 mls/hr IVPB Q12 [facility] PRN Reason: Protocol Last Admin: 10/26/17 22:10 Dose: 133.333 mls/hr Meropenem 1 gm/ Sodium (Chloride) 100 mls @ 100 mls/hr IVPB Q8 [facility] PRN Reason: Protocol Last Admin: 10/27/17 05:39 Dose: 100 mls/hr Sodium Chloride (Sodium Chloride 0.9%) 1,000 mls @ 75 mls/hr IV .[id number] [facility] Last Admin: 10/26/17 22:50 Dose: Not Given Insulin Aspart (Novolog) 0 unit SC Q6H [facility] PRN Reason: Protocol Last Admin: 10/27/17 06:01 Dose: 3 units Insulin Detemir (Levemir) 15 unit SC Q12 [facility] Last Admin: 10/26/17 21:00 Dose: 15 units Latanoprost (Xalatan Opht) 0 ml OU HS [facility] Last Admin: 10/26/17 21:04 Dose: 2.5 ml Multivitamins/Vitamin C (Multi-Delyn Liquid) 5 ml PO DAILY [facility] Last Admin: 10/26/17 10:29 Dose: 5 ml Ondansetron HCl (Zofran Inj) 4 mg IVP Q6H PRN PRN Reason: Nausea/Vomiting Pantoprazole Sodium (Protonix Inj) 40 mg IVP Q12H [facility] Last Admin: 10/27/17 05:42 Dose: 40 mg Saccharomyces Boulardii (Florastor) 250 mg PO Q12 [facility] Last Admin: 10/26/17 21:01 Dose: 250 mg Thiamine HCl (Vitamin B1 Tab) 100 mg PO BID [facility] Last Admin: 10/26/17 17:46 Dose: 100 mg - Labs Labs: 10/27/17 06:39 10/27/17 06:40 PT 13.0 SECONDS (9.7-12.2) H 10/23/17 04:53 INR 1.2 10/23/17 04:53 APTT 24 SECONDS (21-34) 10/23/17 04:53 - Constitutional Appears: No Acute Distress - Head Exam Head Exam: NORMAL INSPECTION - Eye Exam Additional comments: left sluggish, right non-reactive - GI/Abdominal Exam GI & Abdominal Exam: Hypoactive Bowel Sounds - Neurological Exam Neurological Exam: Awake Neuro motor strength exam: Left Upper Extremity: 3, Right Upper Extremity: 3, Left Lower Extremity: 2/1, Right Lower Extremity: 2/1 Additional comments: neurological unchanged from previous examination. Assessment and Plan (1) Mental status change Assessment & Plan: Case discussed with Dr. Mota, continue all current medical regimen,.Recommend follow any orders from neurosurgery, valproic level, physical and occupational therapy, keep head of bed elevated at least 30 degrees, normothermic, glycemic control, abdominal flat plate to evaluate abdominal distention. Please refer to primary or ICU team if resulted. Status: Acute
--- NOTE | 2017-10-27 09:30 | CP.PCM.PN ---
Subjective - Date & Time of Evaluation Date of Evaluation: 10/27/17 Time of Evaluation: 09:29 - Subjective Subjective: neurologically stable ok to transfer to floor and advance activities ok to transfer to subacute when otherwise medically clear Objective - Vital Signs/Intake and Output Vital Signs (last 24 hours): Temp Pulse Resp BP Pulse Ox 98.9 F 78 15 136/73 100 10/27/17 08:00 10/27/17 08:00 10/27/17 08:00 10/27/17 07:51 10/27/17 08:00 Intake and Output: 10/27/17 10/27/17 06:59 18:59 Intake Total 1815 185 Output Total 2900 Balance -1085 185 - Medications Medications: Current Medications Ascorbic Acid (Vitamin C 500 Mg Tab) 500 mg PO DAILY [facility] Last Admin: 10/26/17 10:29 Dose: 500 mg Cyanocobalamin (Vitamin B12 1000 Mcg Tab) 1,000 mcg PO DAILY [facility] Last Admin: 10/26/17 10:29 Dose: 1,000 mcg Dextrose (Dextrose 50% Inj) 0 ml IV STAT PRN; Protocol PRN Reason: Hypoglycemia Protocol Dextrose (Glutose 15) 0 gm PO ONCE PRN; Protocol PRN Reason: Hypoglycemia Protocol Docusate Sodium (Colace) 100 mg PO TID [facility] Glucagon (Glucagen Diagnostic Kit) 0 mg IM STAT PRN; Protocol PRN Reason: Hypoglycemia Protocol Valproate Sodium 500 mg/ (Sodium Chloride) 105 mls @ 100 mls/hr IVPB Q12H [facility] Last Admin: 10/27/17 01:38 Dose: 100 mls/hr Vancomycin/Sodium Chloride (Vancomycin 1 Gm/Ns 200 Ml) 1 gm in 200 mls @ 133 mls/hr IVPB Q12H [facility] PRN Reason: Protocol Stop: 11/01/17 13:01 Insulin Aspart (Novolog) 0 unit SC Q6H [facility] PRN Reason: Protocol Last Admin: 10/27/17 06:01 Dose: 3 units Insulin Detemir (Levemir) 15 unit SC Q12 [facility] Last Admin: 10/26/17 21:00 Dose: 15 units Lactulose (Enulose) 20 gm PO HS PRN PRN Reason: Constipation Latanoprost (Xalatan Opht) 0 ml OU HS [facility] Last Admin: 10/26/17 21:04 Dose: 2.5 ml Multivitamins/Vitamin C (Multi-Delyn Liquid) 5 ml PO DAILY [facility] Last Admin: 10/26/17 10:29 Dose: 5 ml Ondansetron HCl (Zofran Inj) 4 mg IVP Q6H PRN PRN Reason: Nausea/Vomiting Pantoprazole Sodium (Protonix Inj) 40 mg IVP Q12H [facility] Last Admin: 10/27/17 05:42 Dose: 40 mg Saccharomyces Boulardii (Florastor) 250 mg PO Q12 [facility] Last Admin: 10/26/17 21:01 Dose: 250 mg Thiamine HCl (Vitamin B1 Tab) 100 mg PO BID [facility] Last Admin: 10/26/17 17:46 Dose: 100 mg - Labs Labs: 10/27/17 06:39 10/27/17 06:40 PT 13.0 SECONDS (9.7-12.2) H 10/23/17 04:53 INR 1.2 10/23/17 04:53 APTT 24 SECONDS (21-34) 10/23/17 04:53
[2017-10-27] MEDS: Saccharomyces Boulardi 250 mg Cap PO SCH ×2 (09:39→21:28)
[2017-10-27] MEDS: Insulin Detemir 100 units/ml Vial (Levemir) SC SCH ×2 (09:39→21:27)
[2017-10-27] MEDS: Multiple Vitamins Oral Solution PO SCH (09:46)
--- NOTE | 2017-10-27 11:23 | CP.CCUPN ---
Addendum entered and electronically signed by Ernestine Posadas DO 10/27/17 11:56 : Discontinued More, continue with Vanco - Speak to ID for length of abx Addendum entered and electronically signed by Ernestine Posadas DO 10/27/17 11:37 : Disposition: Patient transferred to telemetry. Original Note: <Ernestine Posadas - Last Filed: 10/27/17 11:15> CCU Subjective - Physician Review Subjective (Free Text): Patient seen and examined at bedside. Patient is s/p 4th shunt revision 10/23. Patient is more alert and responsive, able to speak in small phrases, follows commands. Will have patient work with physical therapy. Planning for [facility]. CCU Objective - Vital Signs / Intake & Output Vital Signs (Last 4 hours): Vital Signs Temp Pulse Resp BP Pulse Ox 10/27/17 10:00 77 25 H 100 10/27/17 09:52 84 11 L 156/80 H 100 10/27/17 09:00 77 14 100 10/27/17 08:51 85 11 L 122/67 100 10/27/17 08:00 98.9 F 78 15 100 10/27/17 07:51 79 15 136/73 100 Intake and Output (Last 8hrs): Intake & Output 10/26/17 10/27/17 10/27/17 22:59 06:59 14:59 Intake Total 1045 1210 465 Output Total 1900 1000 Balance -855 210 465 Weight 212 lb 15.465 oz Intake: Intake, IV Amount 700 1000 225 Right Internal Jugular 600 600 225 Right Medial Port 100 400 Internal Jugular Tube Feeding 245 210 140 Other 100 100 Output: Urine 1900 1000 Urine, Voided 1900 1000 - Physical Exam Head: Positive for: Normocephalic Pupils: Positive for: PERRL Extroacular Muscles: Positive for: EOMI Mouth: Positive for: Dry, Other Pharnyx: Positive for: TONSILS ENLARGED Nose (Internal): Positive for: Other (NGT in place ) Respiratory/Chest: Positive for: Clear to Auscultation. Negative for: Respiratory Distress Cardiovascular: Positive for: Regular Rate and Rhythm Abdomen: Positive for: Normal Bowel Sounds. Negative for: Tenderness, Distention Upper Extremity: Positive for: Normal Inspection, NORMAL PULSES, Neurovascularly Intact, Capillary Refill < 2s Lower Extremity: Positive for: Normal Inspection, NORMAL PULSES, Neurovascularly Intact, Capillary Refill < 2 s Neurological: Positive for: Other (Unable to full assese, Pt Lethargic, Only responding to pain) Skin: Positive for: Warm, Dry, Normal Color Psychiatric: Positive for: Other (Lethargic). Negative for: Alert, Oriented x 3 - Medications Active Medications: Active Medications Generic Name Dose Route Start Last Admin Trade Name Freq PRN Reason Stop Dose Admin Ascorbic Acid 500 mg 10/21/17 12:00 10/27/17 09:39 Vitamin C 500 Mg Tab PO 500 mg DAILY MOLLY Administration Cyanocobalamin 1,000 mcg 10/21/17 12:00 10/27/17 09:46 Vitamin B12 1000 Mcg Tab PO 1,000 mcg DAILY MOLLY Administration Dextrose 0 ml 10/03/17 13:28 Dextrose 50% Inj IV STAT PRN Hypoglycemia Protocol Protocol Dextrose 0 gm 10/03/17 13:28 Glutose 15 PO ONCE PRN Hypoglycemia Protocol Protocol Docusate Sodium 100 mg 10/27/17 10:00 10/27/17 09:39 Colace PO 100 mg TID MOLLY Administration Glucagon 0 mg 10/03/17 13:28 Glucagen Diagnostic Kit IM STAT PRN Hypoglycemia Protocol Protocol Valproate Sodium 500 mg/ 105 mls @ 100 mls/hr 10/11/17 14:03 10/27/17 01:38 Sodium Chloride IVPB 100 mls/hr Q12H MOLLY Administration Vancomycin/Sodium Chloride 1 gm in 200 mls @ 133 mls/hr 10/27/17 13:00 Vancomycin 1 Gm/Ns 200 Ml IVPB 11/01/17 13:01 Q12H MOLLY Protocol Insulin Aspart 0 unit 10/21/17 18:00 10/27/17 06:01 Novolog SC 3 units Q6H MOLLY Administration Protocol Insulin Detemir 15 unit 10/15/17 22:00 10/27/17 09:39 Levemir SC 15 units Q12 MOLLY Administration Lactulose 20 gm 10/27/17 09:06 Enulose PO HS PRN Constipation Latanoprost 0 ml 10/03/17 22:00 10/26/17 21:04 Xalatan Opht OU 2.5 ml HS MOLLY Administration Multivitamins/Vitamin C 5 ml 10/21/17 12:00 10/27/17 09:46 Multi-Delyn Liquid PO 5 ml DAILY MOLLY Administration Ondansetron HCl 4 mg 10/26/17 11:30 Zofran Inj IVP Q6H PRN Nausea/Vomiting Pantoprazole Sodium 40 mg 10/20/17 17:30 10/27/17 05:42 Protonix Inj IVP 40 mg Q12H MOLLY Administration Saccharomyces Boulardii 250 mg 10/23/17 22:00 10/27/17 09:39 Florastor PO 250 mg Q12 MOLLY Administration Thiamine HCl 100 mg 10/21/17 12:00 10/27/17 09:39 Vitamin B1 Tab PO 100 mg BID MOLLY Administration - Patient Studies Lab Studies: Lab Studies 10/27/17 10/27/17 10/27/17 Range/Units 07:57 06:40 06:40 WBC (4.8-10.8) K/uL RBC (3.80-5.20) Mil/uL Hgb (11.0-16.0) g/dL Hct (34.0-47.0) % MCV (81.0-99.0) fL MCH (27.0-31.0) pg MCHC (33.0-37.0) g/dL RDW (11.5-14.5) % Plt Count (130-400) K/uL MPV (7.2-11.7) fL Neut % (Auto) (50.0-75.0) % Lymph % (Auto) (20.0-40.0) % Mcleod % (Auto) (0.0-10.0) % Eos % (Auto) (0.0-4.0) % Baso % (Auto) (0.0-2.0) % Neut # (Auto) (1.8-7.0) K/uL Lymph # (Auto) (1.0-4.3) K/uL Mcleod # (Auto) (0.0-0.8) K/uL Eos # (Auto) (0.0-0.7) K/uL Baso # (Auto) (0.0-0.2) K/uL Sodium 142 (132-148) mmol/L Potassium 3.9 (3.6-5.2) mmol/L Chloride 104 (98-107) mmol/L Carbon Dioxide 34 H (22-30) mmol/L Anion Gap 9 L (10-20) BUN 15 (7-17) mg/dL Creatinine 0.5 L (0.7-1.2) mg/dL Est GFR ( Amer) > 60 Est GFR (Non-Af Amer) > 60 POC Glucose (mg/dL) (65-110) mg/dL Random Glucose 204 H (65-105) mg/dL Serum Osmolality 305 H (272-300) mosm/kg Calcium 8.4 L (8.6-10.4) mg/dl Phosphorus 3.2 (2.5-4.5) mg/dL Magnesium 2.2 (1.6-2.3) mg/dL Total Bilirubin 0.4 (0.2-1.3) mg/dL AST 17 (14-36) U/L ALT 25 (9-52) U/L Alkaline Phosphatase 70 (38-126) U/L Total Protein 5.8 L (6.3-8.3) g/dL Albumin 3.0 L (3.5-5.0) g/dL Globulin 2.8 (2.2-3.9) gm/dL Albumin/Globulin Ratio 1.1 (1.0-2.1) Valproic Acid 15.3 L (50.0-100.0) ug/mL 10/27/17 10/27/17 10/27/17 Range/Units 06:39 05:54 00:16 WBC 7.3 (4.8-10.8) K/uL RBC 3.82 (3.80-5.20) Mil/uL Hgb 11.3 (11.0-16.0) g/dL Hct 33.0 L (34.0-47.0) % MCV 86.4 (81.0-99.0) fL MCH 29.7 (27.0-31.0) pg MCHC 34.4 (33.0-37.0) g/dL RDW 14.8 H (11.5-14.5) % Plt Count 301 (130-400) K/uL MPV 8.3 (7.2-11.7) fL Neut % (Auto) 64.3 (50.0-75.0) % Lymph % (Auto) 26.1 (20.0-40.0) % Mcleod % (Auto) 6.3 (0.0-10.0) % Eos % (Auto) 2.2 (0.0-4.0) % Baso % (Auto) 1.1 (0.0-2.0) % Neut # (Auto) 4.7 (1.8-7.0) K/uL Lymph # (Auto) 1.9 (1.0-4.3) K/uL Mcleod # (Auto) 0.5 (0.0-0.8) K/uL Eos # (Auto) 0.2 (0.0-0.7) K/uL Baso # (Auto) 0.1 (0.0-0.2) K/uL Sodium (132-148) mmol/L Potassium (3.6-5.2) mmol/L Chloride (98-107) mmol/L Carbon Dioxide (22-30) mmol/L Anion Gap (10-20) BUN (7-17) mg/dL Creatinine (0.7-1.2) mg/dL Est GFR ( Amer) Est GFR (Non-Af Amer) POC Glucose (mg/dL) 208 H 192 H (65-110) mg/dL Random Glucose (65-105) mg/dL Serum Osmolality (272-300) mosm/kg Calcium (8.6-10.4) mg/dl Phosphorus (2.5-4.5) mg/dL Magnesium (1.6-2.3) mg/dL Total Bilirubin (0.2-1.3) mg/dL AST (14-36) U/L ALT (9-52) U/L Alkaline Phosphatase (38-126) U/L Total Protein (6.3-8.3) g/dL Albumin (3.5-5.0) g/dL Globulin (2.2-3.9) gm/dL Albumin/Globulin Ratio (1.0-2.1) Valproic Acid (50.0-100.0) ug/mL 10/26/17 10/26/17 Range/Units 17:45 11:38 WBC (4.8-10.8) K/uL RBC (3.80-5.20) Mil/uL Hgb (11.0-16.0) g/dL Hct (34.0-47.0) % MCV (81.0-99.0) fL MCH (27.0-31.0) pg MCHC (33.0-37.0) g/dL RDW (11.5-14.5) % Plt Count (130-400) K/uL MPV (7.2-11.7) fL Neut % (Auto) (50.0-75.0) % Lymph % (Auto) (20.0-40.0) % Mcleod % (Auto) (0.0-10.0) % Eos % (Auto) (0.0-4.0) % Baso % (Auto) (0.0-2.0) % Neut # (Auto) (1.8-7.0) K/uL Lymph # (Auto) (1.0-4.3) K/uL Mcleod # (Auto) (0.0-0.8) K/uL Eos # (Auto) (0.0-0.7) K/uL Baso # (Auto) (0.0-0.2) K/uL Sodium (132-148) mmol/L Potassium (3.6-5.2) mmol/L Chloride (98-107) mmol/L Carbon Dioxide (22-30) mmol/L Anion Gap (10-20) BUN (7-17) mg/dL Creatinine (0.7-1.2) mg/dL Est GFR ( Amer) Est GFR (Non-Af Amer) POC Glucose (mg/dL) 192 H 224 H (65-110) mg/dL Random Glucose (65-105) mg/dL Serum Osmolality (272-300) mosm/kg Calcium (8.6-10.4) mg/dl Phosphorus (2.5-4.5) mg/dL Magnesium (1.6-2.3) mg/dL Total Bilirubin (0.2-1.3) mg/dL AST (14-36) U/L ALT (9-52) U/L Alkaline Phosphatase (38-126) U/L Total Protein (6.3-8.3) g/dL Albumin (3.5-5.0) g/dL Globulin (2.2-3.9) gm/dL Albumin/Globulin Ratio (1.0-2.1) Valproic Acid (50.0-100.0) ug/mL Laboratory Results - last 24 hr 10/26/17 10/26/17 10/27/17 11:38 17:45 00:16 WBC RBC Hgb Hct MCV MCH MCHC RDW Plt Count MPV Neut % (Auto) Lymph % (Auto) Mcleod % (Auto) Eos % (Auto) Baso % (Auto) Neut # (Auto) Lymph # (Auto) Mcleod # (Auto) Eos # (Auto) Baso # (Auto) Sodium Potassium Chloride Carbon Dioxide Anion Gap BUN Creatinine Est GFR ( Amer) Est GFR (Non-Af Amer) POC Glucose (mg/dL) 224 H 192 H 192 H Random Glucose Serum Osmolality Calcium Phosphorus Magnesium Total Bilirubin AST ALT Alkaline Phosphatase Total Protein Albumin Globulin Albumin/Globulin Ratio Valproic Acid 10/27/17 10/27/17 10/27/17 05:54 06:39 06:40 WBC 7.3 RBC 3.82 Hgb 11.3 Hct 33.0 L MCV 86.4 MCH 29.7 MCHC 34.4 RDW 14.8 H Plt Count 301 MPV 8.3 Neut % (Auto) 64.3 Lymph % (Auto) 26.1 Mcleod % (Auto) 6.3 Eos % (Auto) 2.2 Baso % (Auto) 1.1 Neut # (Auto) 4.7 Lymph # (Auto) 1.9 Mcleod # (Auto) 0.5 Eos # (Auto) 0.2 Baso # (Auto) 0.1 Sodium 142 Potassium 3.9 Chloride 104 Carbon Dioxide 34 H Anion Gap 9 L BUN 15 Creatinine 0.5 L Est GFR ( Amer) > 60 Est GFR (Non-Af Amer) > 60 POC Glucose (mg/dL) 208 H Random Glucose 204 H Serum Osmolality Calcium 8.4 L Phosphorus 3.2 Magnesium 2.2 Total Bilirubin 0.4 AST 17 ALT 25 Alkaline Phosphatase 70 Total Protein 5.8 L Albumin 3.0 L Globulin 2.8 Albumin/Globulin Ratio 1.1 Valproic Acid 10/27/17 10/27/17 06:40 07:57 WBC RBC Hgb Hct MCV MCH MCHC RDW Plt Count MPV Neut % (Auto) Lymph % (Auto) Mcleod % (Auto) Eos % (Auto) Baso % (Auto) Neut # (Auto) Lymph # (Auto) Mcleod # (Auto) Eos # (Auto) Baso # (Auto) Sodium Potassium Chloride Carbon Dioxide Anion Gap BUN Creatinine Est GFR ( Amer) Est GFR (Non-Af Amer) POC Glucose (mg/dL) Random Glucose Serum Osmolality 305 H Calcium Phosphorus Magnesium Total Bilirubin AST ALT Alkaline Phosphatase Total Protein Albumin Globulin Albumin/Globulin Ratio Valproic Acid 15.3 L Fingerstick Blood Sugar Results: 202 Critical Care Progress Note - Nutrition Nutrition: Nutrition Category Date Time Status NPO Diet [DIET] Diets 10/20/17 Dinner Active Assessment/Plan - Assessment and Plan (Free Text) Assessment: Ms. Diaz is a 66 year old female with PMHx of HTN, HLD, T2DM, and NPH with DIRECTOR NON PROFIT shunt placed in 2014, she underwent 4 DIRECTOR NON PROFIT shunt revisions 02/26/17, 3 during this admission (10/10/2017, 10/11/2017, 10/19/2017, and 10/23/17). Patient admitted to the ICU for AMS and enlarging ventricles noted on CT Scan. S/P revision on - continue to observe in ICU. 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 Milton consulted - Shunt placed in 2014 - DIRECTOR NON PROFIT Shunt repair 02/26/17 - s/p DIRECTOR NON PROFIT shunt revision - 3rd this hospital stay (10/10/2017, 10/11/2017, 10/19/2017 , 10/23/2017) - S/P Revision 10/23/17 - placement of left parietal pleural shunt - Head CT 10/23: Interval placement new left posterior superior parietal shunt tube with decrease size of the ventricles. Intraventricular air with small amount of hemorrhage layering within the dependent portion of the atria and occipital horns. Decrease size of the ventricles with improved periventricular white matter changes -transependymal edema. - Repeat Head CT 10/26: Interval decrease size of the ventricular system. Persistent small amount of hemorrhage seen layering in the dependent portion of both atria and occipital horns. Persistent but diminished amount of intraventricular air -keep MAP ~100, ICP 10: CPP >70 -continue IV NS, osmol 305, will increase NA near 145 -keep HOB >30 - Mannitol 25grams given x 1 - Started on vanco Q12 and Meropenem 10/20 - Teague cultures - negative to date Neurology consulted, Dr. Nixon - Continue valproate 500mg IVPB q12h for seizure prophylaxis Cardio: A: Hypertension - Held Amlodipine 5mg PO daily, Metoprolol Tart 12.5mg PO BID A: HLD - Crestor 5 mg po hs - HELD Pulm A: Hx Asthma Endo: A: Diabetes - Accuchecks - Medium Dose insulin sliding scale, Levemir dose of 15 units BID, ISS- low Prophylaxis - SCDs - Protonix Q12 - Right TLC placed 10/23/17 Disposition: Cleared by Neurosurgery, will arrange for discharge planning to [facility] in [facility] or [place]. Pending Swallow eval DW Dr. Chance Tavares, Ernestine Posadas DO, PGY-1 <Chance Tavares M - Last Filed: 10/28/17 10:59> CCU Objective - Vital Signs / Intake & Output Vital Signs (Last 4 hours): Vital Signs Pulse Resp BP Pulse Ox 10/28/17 08:00 88 13 107/65 99 Intake and Output (Last 8hrs): Intake & Output 10/27/17 10/28/17 10/28/17 22:59 06:59 14:59 Intake Total 480 580 70 Output Total 1000 1000 Balance -520 -420 70 Intake: Intake, IV Amount 300 Right Medial Port 300 Internal Jugular Tube Feeding 280 280 70 Other 200 Output: Urine 1000 1000 Urine, Voided 1000 1000 - Medications Active Medications: Active Medications Generic Name Dose Route Start Last Admin Trade Name Freq PRN Reason Stop Dose Admin Ascorbic Acid 500 mg 10/21/17 12:00 10/28/17 10:43 Vitamin C 500 Mg Tab PO 500 mg DAILY MOLLY Administration Cyanocobalamin 1,000 mcg 10/21/17 12:00 10/28/17 10:43 Vitamin B12 1000 Mcg Tab PO 1,000 mcg DAILY MOLLY Administration Dextrose 0 ml 10/03/17 13:28 Dextrose 50% Inj IV STAT PRN Hypoglycemia Protocol Protocol Dextrose 0 gm 10/03/17 13:28 Glutose 15 PO ONCE PRN Hypoglycemia Protocol Protocol Docusate Sodium 100 mg 10/27/17 10:00 10/28/17 10:46 Colace PO Not Given TID MOLLY Glucagon 0 mg 10/03/17 13:28 Glucagen Diagnostic Kit IM STAT PRN Hypoglycemia Protocol Protocol Valproate Sodium 500 mg/ 105 mls @ 100 mls/hr 10/11/17 14:03 06/23/18 02:50 Sodium Chloride IVPB 100 mls/hr Q12H MOLLY Administration Insulin Aspart 0 unit 10/21/17 18:00 10/28/17 06:24 Novolog SC 3 units Q6H MOLLY Administration Protocol Insulin Detemir 18 unit 10/28/17 09:58 10/28/17 10:45 Levemir SC 18 u Q12 MOLLY Administration Lactulose 20 gm 10/27/17 09:06 Enulose PO HS PRN Constipation Latanoprost 0 ml 10/03/17 22:00 10/27/17 21:28 Xalatan Opht OU 2.5 ml HS MOLLY Administration Multivitamins/Vitamin C 5 ml 10/21/17 12:00 10/28/17 10:44 Multi-Delyn Liquid PO 5 ml DAILY MOLLY Administration Ondansetron HCl 4 mg 10/26/17 11:30 Zofran Inj IVP Q6H PRN Nausea/Vomiting Pantoprazole Sodium 40 mg 10/20/17 17:30 10/28/17 05:47 Protonix Inj IVP 40 mg Q12H MOLLY Administration Saccharomyces Boulardii 250 mg 10/23/17 22:00 10/28/17 10:47 Florastor PO 250 mg Q12 MOLLY Administration Thiamine HCl 100 mg 10/21/17 12:00 10/28/17 10:43 Vitamin B1 Tab PO 100 mg BID MOLLY Administration - Patient Studies Lab Studies: Lab Studies 10/28/17 10/28/17 10/28/17 Range/Units 06:48 06:48 06:04 WBC (4.8-10.8) K/uL RBC (3.80-5.20) Mil/uL Hgb (11.0-16.0) g/dL Hct (34.0-47.0) % MCV (81.0-99.0) fL MCH (27.0-31.0) pg MCHC (33.0-37.0) g/dL RDW (11.5-14.5) % Plt Count (130-400) K/uL MPV (7.2-11.7) fL Neut % (Auto) (50.0-75.0) % Lymph % (Auto) (20.0-40.0) % Mcleod % (Auto) (0.0-10.0) % Eos % (Auto) (0.0-4.0) % Baso % (Auto) (0.0-2.0) % Neut # (Auto) (1.8-7.0) K/uL Lymph # (Auto) (1.0-4.3) K/uL Mcleod # (Auto) (0.0-0.8) K/uL Eos # (Auto) (0.0-0.7) K/uL Baso # (Auto) (0.0-0.2) K/uL Sodium 142 (132-148) mmol/L Potassium 4.2 (3.6-5.2) mmol/L Chloride 104 (98-107) mmol/L Carbon Dioxide 29 (22-30) mmol/L Anion Gap 13 (10-20) BUN 17 (7-17) mg/dL Creatinine 0.5 L (0.7-1.2) mg/dL Est GFR ( Amer) > 60 Est GFR (Non-Af Amer) > 60 POC Glucose (mg/dL) 220 H (65-110) mg/dL Random Glucose 200 H (65-105) mg/dL Serum Osmolality 309 H (272-300) mosm/kg Calcium 8.6 (8.6-10.4) mg/dl Phosphorus 2.9 (2.5-4.5) mg/dL Magnesium 2.2 (1.6-2.3) mg/dL Total Bilirubin 0.4 (0.2-1.3) mg/dL AST 19 (14-36) U/L ALT 23 (9-52) U/L Alkaline Phosphatase 69 (38-126) U/L Total Protein 6.0 L (6.3-8.3) g/dL Albumin 3.2 L (3.5-5.0) g/dL Globulin 2.8 (2.2-3.9) gm/dL Albumin/Globulin Ratio 1.2 (1.0-2.1) 10/28/17 10/27/17 10/27/17 Range/Units 04:00 23:24 17:36 WBC 7.2 (4.8-10.8) K/uL RBC 3.92 (3.80-5.20) Mil/uL Hgb 11.5 (11.0-16.0) g/dL Hct 34.0 (34.0-47.0) % MCV 86.8 (81.0-99.0) fL MCH 29.3 (27.0-31.0) pg MCHC 33.7 (33.0-37.0) g/dL RDW 14.7 H (11.5-14.5) % Plt Count 352 (130-400) K/uL MPV 8.1 (7.2-11.7) fL Neut % (Auto) 62.9 (50.0-75.0) % Lymph % (Auto) 26.2 (20.0-40.0) % Mcleod % (Auto) 7.7 (0.0-10.0) % Eos % (Auto) 2.4 (0.0-4.0) % Baso % (Auto) 0.8 (0.0-2.0) % Neut # (Auto) 4.5 (1.8-7.0) K/uL Lymph # (Auto) 1.9 (1.0-4.3) K/uL Mcleod # (Auto) 0.6 (0.0-0.8) K/uL Eos # (Auto) 0.2 (0.0-0.7) K/uL Baso # (Auto) 0.1 (0.0-0.2) K/uL Sodium (132-148) mmol/L Potassium (3.6-5.2) mmol/L Chloride (98-107) mmol/L Carbon Dioxide (22-30) mmol/L Anion Gap (10-20) BUN (7-17) mg/dL Creatinine (0.7-1.2) mg/dL Est GFR ( Amer) Est GFR (Non-Af Amer) POC Glucose (mg/dL) 259 H 265 H (65-110) mg/dL Random Glucose (65-105) mg/dL Serum Osmolality (272-300) mosm/kg Calcium (8.6-10.4) mg/dl Phosphorus (2.5-4.5) mg/dL Magnesium (1.6-2.3) mg/dL Total Bilirubin (0.2-1.3) mg/dL AST (14-36) U/L ALT (9-52) U/L Alkaline Phosphatase (38-126) U/L Total Protein (6.3-8.3) g/dL Albumin (3.5-5.0) g/dL Globulin (2.2-3.9) gm/dL Albumin/Globulin Ratio (1.0-2.1) 10/27/17 10/27/17 Range/Units 11:15 05:54 WBC (4.8-10.8) K/uL RBC (3.80-5.20) Mil/uL Hgb (11.0-16.0) g/dL Hct (34.0-47.0) % MCV (81.0-99.0) fL MCH (27.0-31.0) pg MCHC (33.0-37.0) g/dL RDW (11.5-14.5) % Plt Count (130-400) K/uL MPV (7.2-11.7) fL Neut % (Auto) (50.0-75.0) % Lymph % (Auto) (20.0-40.0) % Mcleod % (Auto) (0.0-10.0) % Eos % (Auto) (0.0-4.0) % Baso % (Auto) (0.0-2.0) % Neut # (Auto) (1.8-7.0) K/uL Lymph # (Auto) (1.0-4.3) K/uL Mcleod # (Auto) (0.0-0.8) K/uL Eos # (Auto) (0.0-0.7) K/uL Baso # (Auto) (0.0-0.2) K/uL Sodium (132-148) mmol/L Potassium (3.6-5.2) mmol/L Chloride (98-107) mmol/L Carbon Dioxide (22-30) mmol/L Anion Gap (10-20) BUN (7-17) mg/dL Creatinine (0.7-1.2) mg/dL Est GFR ( Amer) Est GFR (Non-Af Amer) POC Glucose (mg/dL) 237 H 208 H (65-110) mg/dL Random Glucose (65-105) mg/dL Serum Osmolality (272-300) mosm/kg Calcium (8.6-10.4) mg/dl Phosphorus (2.5-4.5) mg/dL Magnesium (1.6-2.3) mg/dL Total Bilirubin (0.2-1.3) mg/dL AST (14-36) U/L ALT (9-52) U/L Alkaline Phosphatase (38-126) U/L Total Protein (6.3-8.3) g/dL Albumin (3.5-5.0) g/dL Globulin (2.2-3.9) gm/dL Albumin/Globulin Ratio (1.0-2.1) Laboratory Results - last 24 hr 10/27/17 10/27/17 10/27/17 05:54 11:15 17:36 WBC RBC Hgb Hct MCV MCH MCHC RDW Plt Count MPV Neut % (Auto) Lymph % (Auto) Mcleod % (Auto) Eos % (Auto) Baso % (Auto) Neut # (Auto) Lymph # (Auto) Mcleod # (Auto) Eos # (Auto) Baso # (Auto) Sodium Potassium Chloride Carbon Dioxide Anion Gap BUN Creatinine Est GFR ( Amer) Est GFR (Non-Af Amer) POC Glucose (mg/dL) 208 H 237 H 265 H Random Glucose Serum Osmolality Calcium Phosphorus Magnesium Total Bilirubin AST ALT Alkaline Phosphatase Total Protein Albumin Globulin Albumin/Globulin Ratio 10/27/17 10/28/17 10/28/17 23:24 04:00 06:04 WBC 7.2 RBC 3.92 Hgb 11.5 Hct 34.0 MCV 86.8 MCH 29.3 MCHC 33.7 RDW 14.7 H Plt Count 352 MPV 8.1 Neut % (Auto) 62.9 Lymph % (Auto) 26.2 Mcleod % (Auto) 7.7 Eos % (Auto) 2.4 Baso % (Auto) 0.8 Neut # (Auto) 4.5 Lymph # (Auto) 1.9 Mcleod # (Auto) 0.6 Eos # (Auto) 0.2 Baso # (Auto) 0.1 Sodium Potassium Chloride Carbon Dioxide Anion Gap BUN Creatinine Est GFR ( Amer) Est GFR (Non-Af Amer) POC Glucose (mg/dL) 259 H 220 H Random Glucose Serum Osmolality Calcium Phosphorus Magnesium Total Bilirubin AST ALT Alkaline Phosphatase Total Protein Albumin Globulin Albumin/Globulin Ratio 10/28/17 10/28/17 06:48 06:48 WBC RBC Hgb Hct MCV MCH MCHC RDW Plt Count MPV Neut % (Auto) Lymph % (Auto) Mcleod % (Auto) Eos % (Auto) Baso % (Auto) Neut # (Auto) Lymph # (Auto) Mcleod # (Auto) Eos # (Auto) Baso # (Auto) Sodium 142 Potassium 4.2 Chloride 104 Carbon Dioxide 29 Anion Gap 13 BUN 17 Creatinine 0.5 L Est GFR ( Amer) > 60 Est GFR (Non-Af Amer) > 60 POC Glucose (mg/dL) Random Glucose 200 H Serum Osmolality 309 H Calcium 8.6 Phosphorus 2.9 Magnesium 2.2 Total Bilirubin 0.4 AST 19 ALT 23 Alkaline Phosphatase 69 Total Protein 6.0 L Albumin 3.2 L Globulin 2.8 Albumin/Globulin Ratio 1.2 Critical Care Progress Note - Nutrition Nutrition: Nutrition Category Date Time Status NPO Diet [DIET] Diets 10/20/17 Dinner Active Assessment/Plan - Assessment and Plan (Free Text) Plan: Patient seen and examined at bedside. above resident documents my clinical findings and management. Patient much more awake, communicative, able to take steps OOB to chair. Afebrile. Wound site clean dry and intact with [place]. Patient failed speach and swallow. tolerated NG tube feeds. continue to monitor valproic and ammonia level Patient remains hemodynamically stable - Date & Time Date: 10/27/17 Time: 19:00
[2017-10-27] MEDS: Vancomycin 1 gm/NS 200 ml 1 GM/200 ML BAG IVPB SCH (12:10)
--- NOTE | 2017-10-27 12:55 | CP.PCM.PN ---
Subjective - Date & Time of Evaluation Date of Evaluation: 10/27/17 Time of Evaluation: 09:40 - Subjective Subjective: Seen and examined by me.Patient is more awake. Denies pain,No complain. soft voice,not able to clear throat well continue NG feeding Objective - Vital Signs/Intake and Output Vital Signs (last 24 hours): Temp Pulse Resp BP Pulse Ox 98.8 F 110 H 20 115/67 97 10/27/17 12:00 10/27/17 12:00 10/27/17 12:00 10/27/17 11:58 10/27/17 12:00 Intake and Output: 10/27/17 10/27/17 06:59 18:59 Intake Total 1815 500 Output Total 2900 Balance -1085 500 - Medications Medications: Current Medications Ascorbic Acid (Vitamin C 500 Mg Tab) 500 mg PO DAILY [facility] Last Admin: 10/27/17 09:39 Dose: 500 mg Cyanocobalamin (Vitamin B12 1000 Mcg Tab) 1,000 mcg PO DAILY [facility] Last Admin: 10/27/17 09:46 Dose: 1,000 mcg Dextrose (Dextrose 50% Inj) 0 ml IV STAT PRN; Protocol PRN Reason: Hypoglycemia Protocol Dextrose (Glutose 15) 0 gm PO ONCE PRN; Protocol PRN Reason: Hypoglycemia Protocol Docusate Sodium (Colace) 100 mg PO TID [facility] Last Admin: 10/27/17 09:39 Dose: 100 mg Glucagon (Glucagen Diagnostic Kit) 0 mg IM STAT PRN; Protocol PRN Reason: Hypoglycemia Protocol Valproate Sodium 500 mg/ (Sodium Chloride) 105 mls @ 100 mls/hr IVPB Q12H [facility] Last Admin: 10/27/17 01:38 Dose: 100 mls/hr Vancomycin/Sodium Chloride (Vancomycin 1 Gm/Ns 200 Ml) 1 gm in 200 mls @ 133 mls/hr IVPB Q12H [facility] PRN Reason: Protocol Stop: 11/01/17 13:01 Last Admin: 10/27/17 12:10 Dose: 133 mls/hr Insulin Aspart (Novolog) 0 unit SC Q6H [facility] PRN Reason: Protocol Last Admin: 10/27/17 11:34 Dose: 3 units Insulin Detemir (Levemir) 15 unit SC Q12 [facility] Last Admin: 10/27/17 09:39 Dose: 15 units Lactulose (Enulose) 20 gm PO HS PRN PRN Reason: Constipation Latanoprost (Xalatan Opht) 0 ml OU HS [facility] Last Admin: 10/26/17 21:04 Dose: 2.5 ml Multivitamins/Vitamin C (Multi-Delyn Liquid) 5 ml PO DAILY [facility] Last Admin: 10/27/17 09:46 Dose: 5 ml Ondansetron HCl (Zofran Inj) 4 mg IVP Q6H PRN PRN Reason: Nausea/Vomiting Pantoprazole Sodium (Protonix Inj) 40 mg IVP Q12H [facility] Last Admin: 10/27/17 05:42 Dose: 40 mg Saccharomyces Boulardii (Florastor) 250 mg PO Q12 [facility] Last Admin: 10/27/17 09:39 Dose: 250 mg Thiamine HCl (Vitamin B1 Tab) 100 mg PO BID [facility] Last Admin: 10/27/17 09:39 Dose: 100 mg - Labs Labs: 10/27/17 06:39 10/27/17 06:40 PT 13.0 SECONDS (9.7-12.2) H 10/23/17 04:53 INR 1.2 10/23/17 04:53 APTT 24 SECONDS (21-34) 10/23/17 04:53 - Constitutional Appears: Chronically Ill - Head Exam Head Exam: absent: ATRAUMATIC (right side dressing on) - ENT Exam ENT Exam: Mucous Membranes Moist - Neck Exam Neck Exam: Full ROM - Respiratory Exam Respiratory Exam: Clear to Ausculation Bilateral, NORMAL BREATHING PATTERN - Cardiovascular Exam Cardiovascular Exam: REGULAR RHYTHM - GI/Abdominal Exam GI & Abdominal Exam: Distended (nontender/gas distension), Soft, Normal Bowel Sounds - Extremities Exam Extremities Exam: Full ROM - Back Exam Back Exam: NORMAL INSPECTION - Neurological Exam Neurological Exam: Awake (soft voice) - Psychiatric Exam Psychiatric exam: Normal Mood - Skin Skin Exam: Dry Assessment and Plan - Assessment and Plan (Free Text) Plan: 1. 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 Multiple revision of ELEMENTARY VOCAL MUSIC TEACHER shunt,s/p 4th revision on 10/23. Continue ICU monitoring Patient's mental status is improving CT head today shows decreasing ventricular size,air size improving and persistent small bleed. 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 ELEMENTARY VOCAL MUSIC TEACHER Shunt repair -Patient is being followed by Neurosurgery Dr Hancock/Ella As per neurosurgeon its ok to transfer to floor , advance activities and to transfer to subacute -ELEMENTARY VOCAL MUSIC TEACHER shunt change 10/10/2017, 10/11/2017,10/20 ( Conversion of ELEMENTARY VOCAL MUSIC TEACHER shunt to [place], 10/23 ( Revision on ventricular peritoneal shunt.) by Dr Hancock and Dr Monroe -Neurology Dr. Mota following her -all cultures are negative -continue valproate for seizure prophylaxis -Getting meropenem and vancomycin as per Dr Milton Infectious disease 2.Altered Mental Status Improving and able to respond better today. continue tube feeding,keep NPO PT once she improves 3.DM 2 Accu checks ACHS Medium Dose insulin sliding scale Patient started on home levemir dose of 15 units BID Will hold home metformin for now Hypoglycemia protocol 4.HLD 5.Asthma Will continue to monitor saturation 6.Hypertension Home meds on hold,monitor her blood pressure resume oral meds once her mental status improves 7.Prophylactic measure scds protonix
--- NOTE | 2017-10-27 17:00 | RAD ---
HISTORY: Abdominal distention COMPARISON: Made with CT scan chest abdomen pelvis dated 10/11/2017. FINDINGS: BOWEL: There is what is felt to represent a distal loop of small bowel located in the right parasagittal mid to lower abdomen and probably represents a localized ileus. BONES: Normal. OTHER FINDINGS: In situ distal aspect LAW ENFORCEMENT DIRECTOR shunt tube overlying the right abdomen and pelvis. Metallic skin closure clayton overlying the the right upper quadrant of the abdomen the consistent prior cholecystectomy. Overlying skin closure clayton also present right upper quadrant of the abdomen IMPRESSION: Findings suggest localized ileus. Cholecystectomy clips and skin closure clayton right upper abdomen. In situ LAW ENFORCEMENT DIRECTOR shunt to. There is what is felt to represent a distal loop of small bowel located in the right parasagittal mid to lower abdomen and probably represents a localized ileus.
[2017-10-27] MEDS: Latanoprost 2.5 ml Opht Soln OU SCH (21:28)
[2017-10-28] MEDS: (Novolog) Insulin Aspart, Recombinant 100 u/ml 10 ml vial SC SCH ×4 (00:44→18:19)
[2017-10-28] MEDS: Vancomycin 1 gm/NS 200 ml 1 GM/200 ML BAG IVPB SCH (00:45)
[2017-10-28] MEDS: Valproate 500 MG in Sodium Chloride 0.9% 100 ML IVPB SCH ×2 (02:50→13:37)
[2017-10-28 06:56] LABS: BASO # 0.1 K/uL (0.0-0.2); BASO % 0.8 % (0.0-2.0); EOS # 0.2 K/uL (0.0-0.7); EOS % 2.4 % (0.0-4.0); HEMOGLOBIN 11.5 g/dL (11.0-16.0); LYMPH # 1.9 K/uL (1.0-4.3); LYMPH % 26.2 % (20.0-40.0); MEAN CELL VOLUME 86.8 fL (81.0-99.0); MEAN CORPUSCULAR HEMOGLOBIN 29.3 pg (27.0-31.0); MEAN CORPUSCULAR HGB CONC 33.7 g/dL (33.0-37.0); MEAN PLATELET VOLUME 8.1 fL (7.2-11.7); MONO # 0.6 K/uL (0.0-0.8); MONO % 7.7 % (0.0-10.0); NEUT # 4.5 K/uL (1.8-7.0); NEUT % 62.9 % (50.0-75.0); RBC 3.92 Mil/uL (3.80-5.20); RED CELL DISTRIBUTION WIDTH 14.7 % (11.5-14.5); WHITE BLOOD COUNT 7.2 K/uL (4.8-10.8)
[2017-10-28 07:13] LABS: ALB/GLOB RATIO 1.2 (1.0-2.1); ALBUMIN 3.2 g/dL (3.5-5.0); ALT/SGPT 23 U/L (9-52); AST/SGOT 19 U/L (14-36); BLOOD UREA NITROGEN 17 mg/dL (7-17); CALCIUM 8.6 mg/dl (8.6-10.4); GFR AFRICAN-AMERICAN > 60; GFR NON-AFRICAN AMERICAN > 60
--- NOTE | 2017-10-28 08:53 | CP.PCM.PN ---
<Stiven Leon R - Last Filed: 10/28/17 17:59> Subjective - Date & Time of Evaluation Date of Evaluation: 10/28/17 Time of Evaluation: 17:59 - Subjective Subjective: PGY-[address] Parsons. No acute events noted overnight. Patient able to respond yes or no. Nodded no when I asked her if she had pain or was uncomfortable. Able to follow commands ( squeezed my hand on commands). Objective - Vital Signs/Intake and Output Vital Signs (last 24 hours): Temp Pulse Resp BP Pulse Ox 98 F 90 20 133/64 96 10/28/17 04:00 10/28/17 04:00 10/28/17 04:00 10/28/17 04:00 10/28/17 04:00 Intake and Output: 10/28/17 10/28/17 06:59 18:59 Intake Total 820 35 Output Total 1000 Balance -180 35 - Medications Medications: Current Medications Ascorbic Acid (Vitamin C 500 Mg Tab) 500 mg PO DAILY [facility] Last Admin: 10/27/17 09:39 Dose: 500 mg Cyanocobalamin (Vitamin B12 1000 Mcg Tab) 1,000 mcg PO DAILY [facility] Last Admin: 10/27/17 09:46 Dose: 1,000 mcg Dextrose (Dextrose 50% Inj) 0 ml IV STAT PRN; Protocol PRN Reason: Hypoglycemia Protocol Dextrose (Glutose 15) 0 gm PO ONCE PRN; Protocol PRN Reason: Hypoglycemia Protocol Docusate Sodium (Colace) 100 mg PO TID [facility] Last Admin: 10/27/17 17:28 Dose: 100 mg Glucagon (Glucagen Diagnostic Kit) 0 mg IM STAT PRN; Protocol PRN Reason: Hypoglycemia Protocol Valproate Sodium 500 mg/ (Sodium Chloride) 105 mls @ 100 mls/hr IVPB Q12H [facility] Last Admin: 10/28/17 02:50 Dose: 100 mls/hr Vancomycin/Sodium Chloride (Vancomycin 1 Gm/Ns 200 Ml) 1 gm in 200 mls @ 133 mls/hr IVPB Q12H [facility] PRN Reason: Protocol Stop: 11/01/17 13:01 Last Admin: 10/28/17 00:45 Dose: 133 mls/hr Insulin Aspart (Novolog) 0 unit SC Q6H [facility] PRN Reason: Protocol Last Admin: 10/28/17 06:24 Dose: 3 units Insulin Detemir (Levemir) 15 unit SC Q12 [facility] Last Admin: 10/27/17 21:27 Dose: 15 units Lactulose (Enulose) 20 gm PO HS PRN PRN Reason: Constipation Latanoprost (Xalatan Opht) 0 ml OU HS [facility] Last Admin: 10/27/17 21:28 Dose: 2.5 ml Multivitamins/Vitamin C (Multi-Delyn Liquid) 5 ml PO DAILY [facility] Last Admin: 10/27/17 09:46 Dose: 5 ml Ondansetron HCl (Zofran Inj) 4 mg IVP Q6H PRN PRN Reason: Nausea/Vomiting Pantoprazole Sodium (Protonix Inj) 40 mg IVP Q12H [facility] Last Admin: 10/28/17 05:47 Dose: 40 mg Saccharomyces Boulardii (Florastor) 250 mg PO Q12 [facility] Last Admin: 10/27/17 21:28 Dose: 250 mg Thiamine HCl (Vitamin B1 Tab) 100 mg PO BID [facility] Last Admin: 10/27/17 17:28 Dose: 100 mg - Labs Labs: 10/28/17 04:00 10/28/17 06:48 PT 13.0 SECONDS (9.7-12.2) H 10/23/17 04:53 INR 1.2 10/23/17 04:53 APTT 24 SECONDS (21-34) 10/23/17 04:53 - Additional Findings Additional findings: - Constitutional Appears: No Acute Distress - Head Exam Head Exam: NORMAL INSPECTION, (right side dressing on) - Eye Exam Additional comments: left sluggish, right non-reactive - Cardiovascular Exam Cardiovascular Exam: REGULAR RHYTHM - GI/Abdominal Exam GI & Abdominal Exam: Distended (nontender/gas distension), Soft, Hypoactive Bowel Sounds - Extremities Exam Extremities Exam: Full ROM - Back Exam Back Exam: NORMAL INSPECTION - Neurological Exam Neurological Exam: Awake (soft voice) - Psychiatric Exam Psychiatric exam: Normal Mood - Skin Skin Exam: Dry - Neurological Exam Neurological Exam: Awake Neuro motor strength exam: Left Upper Extremity: 3, Right Upper Extremity: 3, Left Lower Extremity: 2/1, Right Lower Extremity: 2/1 Additional comments: neurological unchanged from previous examination. Assessment and Plan - Assessment and Plan (Free Text) Assessment: Ms. Diaz is a 66 year old female with PMHx of HTN, HLD, T2DM, and NPH with CONSUMER LOAN PROCESSOR shunt placed in 2014, she underwent 4 CONSUMER LOAN PROCESSOR shunt revisions 02/26/17, 3 during this admission (10/10/2017, 10/11/2017, 10/19/2017, and 10/23/17). Patient admitted to the ICU for AMS and enlarging ventricles noted on CT Scan. S/P revision on - continue to observe in ICU. Plan: History of hydrocephalus 2/2 to NPH ----Neurosurgery Dr Hancock/Ella is consulted ---- ID Dr. Bergeron consulted - Shunt placed in 2014 - CONSUMER LOAN PROCESSOR Shunt repair 02/26/17 - s/p CONSUMER LOAN PROCESSOR shunt revision - 3rd this hospital stay (10/10/2017, 10/11/2017, 10/19/2017 , 10/23/2017) - S/P Revision 10/23/17 - placement of left parietal pleural shunt - Head CT 10/23: Interval placement new left posterior superior parietal shunt tube with decrease size of the ventricles. Intraventricular air with small amount of hemorrhage layering within the dependent portion of the atria and occipital horns. Decrease size of the ventricles with improved periventricular white matter changes -transependymal edema. - Repeat Head CT 10/26: Interval decrease size of the ventricular system. Persistent small amount of hemorrhage seen layering in the dependent portion of both atria and occipital horns. Persistent but diminished amount of intraventricular air -keep MAP ~100, ICP 10: CPP >70 -continue IV NS, osmol 305, will increase NA near 145 -keep HOB >30 - Mannitol 25grams given x 1 - Started on vanco Q12 10/20 - discontinued 10/28 - Started Meropenem 10/20 - discontinued 10/28 - Teague cultures - negative to date Neurology consulted, Dr. Nixon - Continue valproate 500mg IVPB q12h for seizure prophylaxis Hypertension - Held Amlodipine 5mg PO daily, Metoprolol Tart 12.5mg PO BID HLD - Crestor 5 mg po hs - HELD Hx Asthma Diabetes - Accuchecks - Medium Dose insulin sliding scale, Levemir dose of 18 units BID, ISS- low Prophylaxis - SCDs - Protonix Q12 - Right TLC placed 10/23/17 Disposition: Cleared by Neurosurgery, will arrange for discharge planning to [facility] in [facility] or [place]. Pending Swallow eval <Jessica Parsons - Last Filed: 10/28/17 19:20> Objective - Vital Signs/Intake and Output Vital Signs (last 24 hours): Temp Pulse Resp BP Pulse Ox 98.4 F 85 15 135/74 95 10/28/17 16:00 10/28/17 16:00 10/28/17 16:00 10/28/17 16:00 10/28/17 16:00 Intake and Output: 10/28/17 10/29/17 18:59 06:59 Intake Total 620 35 Output Total 500 Balance 120 35 - Medications Medications: Current Medications Ascorbic Acid (Vitamin C 500 Mg Tab) 500 mg PO DAILY [facility] Last Admin: 10/28/17 10:43 Dose: 500 mg Cyanocobalamin (Vitamin B12 1000 Mcg Tab) 1,000 mcg PO DAILY [facility] Last Admin: 10/28/17 10:43 Dose: 1,000 mcg Dextrose (Dextrose 50% Inj) 0 ml IV STAT PRN; Protocol PRN Reason: Hypoglycemia Protocol Dextrose (Glutose 15) 0 gm PO ONCE PRN; Protocol PRN Reason: Hypoglycemia Protocol Docusate Sodium (Colace) 100 mg PO TID [facility] Last Admin: 10/28/17 17:09 Dose: 100 mg Glucagon (Glucagen Diagnostic Kit) 0 mg IM STAT PRN; Protocol PRN Reason: Hypoglycemia Protocol Valproate Sodium 1,000 mg/ (Sodium Chloride) 110 mls @ 100 mls/hr IVPB Q12H [facility] Last Admin: 10/28/17 17:09 Dose: 100 mls/hr Insulin Aspart (Novolog) 0 unit SC Q6H [facility] PRN Reason: Protocol Last Admin: 10/28/17 18:19 Dose: 4 units Insulin Detemir (Levemir) 18 unit SC Q12 [facility] Last Admin: 10/28/17 10:45 Dose: 18 u Lactulose (Enulose) 20 gm PO HS PRN PRN Reason: Constipation Latanoprost (Xalatan Opht) 0 ml OU HS [facility] Last Admin: 10/27/17 21:28 Dose: 2.5 ml Multivitamins/Vitamin C (Multi-Delyn Liquid) 5 ml PO DAILY [facility] Last Admin: 10/28/17 10:44 Dose: 5 ml Ondansetron HCl (Zofran Inj) 4 mg IVP Q6H PRN PRN Reason: Nausea/Vomiting Pantoprazole Sodium (Protonix Inj) 40 mg IVP Q12H [facility] Last Admin: 10/28/17 17:10 Dose: 40 mg Saccharomyces Boulardii (Florastor) 250 mg PO Q12 [facility] Last Admin: 10/28/17 10:47 Dose: 250 mg Thiamine HCl (Vitamin B1 Tab) 100 mg PO BID [facility] Last Admin: 10/28/17 17:10 Dose: 100 mg - Labs Labs: 10/28/17 04:00 10/28/17 06:48 PT 13.0 SECONDS (9.7-12.2) H 10/23/17 04:53 INR 1.2 10/23/17 04:53 APTT 24 SECONDS (21-34) 10/23/17 04:53 Attending/Attestation - Attestation I have personally seen and examined this patient.: Yes I have fully participated in the care of the patient.: Yes I have reviewed all pertinent clinical information, including history, physical exam and plan: Yes Notes (Text): Patient is more responsive than yesterday. Not ready for oral diet D/W her family member at bedside. d/w Dr bergeron about antibiotics.Agree discontinue antibiotics out of bed to chair PT,speech evaluation for swallowing as needed d/w resident and I agree with the documentation of the assessment and the plan
[2017-10-28] MEDS: Multiple Vitamins Oral Solution PO SCH (10:44)
[2017-10-28] MEDS: Insulin Detemir 100 units/ml Vial (Levemir) SC SCH ×2 (10:45→21:17)
[2017-10-28] MEDS: Saccharomyces Boulardi 250 mg Cap PO SCH ×2 (10:47→21:17)
--- NOTE | 2017-10-28 14:33 | CP.PCM.PN ---
Subjective - Date & Time of Evaluation Date of Evaluation: 10/28/17 Time of Evaluation: 02:30 - Subjective Subjective: dictated Objective - Vital Signs/Intake and Output Vital Signs (last 24 hours): Temp Pulse Resp BP Pulse Ox 98.6 F 77 12 109/60 100 10/28/17 12:00 10/28/17 12:00 10/28/17 12:00 10/28/17 12:00 10/28/17 12:00 Intake and Output: 10/28/17 10/28/17 06:59 18:59 Intake Total 820 245 Output Total 1000 Balance -180 245 - Medications Medications: Current Medications Ascorbic Acid (Vitamin C 500 Mg Tab) 500 mg PO DAILY [facility] Last Admin: 10/28/17 10:43 Dose: 500 mg Cyanocobalamin (Vitamin B12 1000 Mcg Tab) 1,000 mcg PO DAILY [facility] Last Admin: 10/28/17 10:43 Dose: 1,000 mcg Dextrose (Dextrose 50% Inj) 0 ml IV STAT PRN; Protocol PRN Reason: Hypoglycemia Protocol Dextrose (Glutose 15) 0 gm PO ONCE PRN; Protocol PRN Reason: Hypoglycemia Protocol Docusate Sodium (Colace) 100 mg PO TID [facility] Last Admin: 10/28/17 13:38 Dose: 100 mg Glucagon (Glucagen Diagnostic Kit) 0 mg IM STAT PRN; Protocol PRN Reason: Hypoglycemia Protocol Valproate Sodium 500 mg/ (Sodium Chloride) 105 mls @ 100 mls/hr IVPB Q12H [facility] Last Admin: 10/28/17 13:37 Dose: 100 mls/hr Insulin Aspart (Novolog) 0 unit SC Q6H [facility] PRN Reason: Protocol Last Admin: 10/28/17 12:16 Dose: 3 units Insulin Detemir (Levemir) 18 unit SC Q12 [facility] Last Admin: 10/28/17 10:45 Dose: 18 u Lactulose (Enulose) 20 gm PO HS PRN PRN Reason: Constipation Latanoprost (Xalatan Opht) 0 ml OU HS [facility] Last Admin: 10/27/17 21:28 Dose: 2.5 ml Multivitamins/Vitamin C (Multi-Delyn Liquid) 5 ml PO DAILY [facility] Last Admin: 10/28/17 10:44 Dose: 5 ml Ondansetron HCl (Zofran Inj) 4 mg IVP Q6H PRN PRN Reason: Nausea/Vomiting Pantoprazole Sodium (Protonix Inj) 40 mg IVP Q12H [facility] Last Admin: 10/28/17 05:47 Dose: 40 mg Saccharomyces Boulardii (Florastor) 250 mg PO Q12 [facility] Last Admin: 10/28/17 10:47 Dose: 250 mg Thiamine HCl (Vitamin B1 Tab) 100 mg PO BID [facility] Last Admin: 10/28/17 10:43 Dose: 100 mg - Labs Labs: 10/28/17 04:00 10/28/17 06:48 PT 13.0 SECONDS (9.7-12.2) H 10/23/17 04:53 INR 1.2 10/23/17 04:53 APTT 24 SECONDS (21-34) 10/23/17 04:53
[2017-10-28] MEDS: Valproate 1,000 MG in Sodium Chloride 0.9% 100 ML IVPB SCH (17:09)
[2017-10-28] MEDS: Latanoprost 2.5 ml Opht Soln OU SCH (21:18)
--- NOTE | 2017-10-28 22:37 | PN ---
DATE: 10/28/2017 SUBJECTIVE: The patient is still in ICU. Her vitals are stable. She was sleepy. She does have dressings on her scalp. PHYSICAL EXAMINATION: VITAL SIGNS: T-max is 98.4, pulse 85, blood pressure 135/74, respirations are 15. HEENT: Head is healing. NECK: Supple. LUNGS: Clear. HEART: S1 and S2 are regular. ABDOMEN: Soft, nontender. EXTREMITIES: Had Venodyne boots on. LABORATORY DATA: Labs are noted. Labs show white count is 7.2, hemoglobin 11.5, hematocrit 34, platelet count is 352. Labs are all in order except for her sugars which are being monitored. Cultures have all been negative. ASSESSMENT AND PLAN: Primary as well as the plumbing assembler all agreed that we should discontinue the antibiotics, and antibiotics are discontinued. She will be followed. She remains on Saccharomyces for a week. She probably will be going to rehab. She had a ventriculoperitoneal shunt placed and multiple neuro surgeries and is recuperating at this time. Naga Milton MD
[2017-10-29] MEDS: (Novolog) Insulin Aspart, Recombinant 100 u/ml 10 ml vial SC SCH ×4 (00:06→18:05)
--- NOTE | 2017-10-29 00:21 | CP.PCM.PN ---
Subjective - Date & Time of Evaluation Date of Evaluation: 10/28/17 Time of Evaluation: 13:00 - Subjective Subjective: Patient is having her dressing changed, and is awake, following commands, and telling me her name, her husbands name and following commands in thai. LEgs are still plegic. PERRL, pupils 3mm-2mm with light. EOMI> +dolls, +corneal , +gag. 4/5 ul bl. Rest of neuro exam unchanged. Objective - Vital Signs/Intake and Output Vital Signs (last 24 hours): Temp Pulse Resp BP Pulse Ox 99.3 F 86 16 132/74 95 10/28/17 20:00 10/28/17 20:00 10/28/17 20:00 10/28/17 20:00 10/28/17 16:00 Intake and Output: 10/28/17 10/29/17 18:59 06:59 Intake Total 620 70 Output Total 500 Balance 120 70 - Medications Medications: Current Medications Ascorbic Acid (Vitamin C 500 Mg Tab) 500 mg PO DAILY [facility] Last Admin: 10/28/17 10:43 Dose: 500 mg Cyanocobalamin (Vitamin B12 1000 Mcg Tab) 1,000 mcg PO DAILY [facility] Last Admin: 10/28/17 10:43 Dose: 1,000 mcg Dextrose (Dextrose 50% Inj) 0 ml IV STAT PRN; Protocol PRN Reason: Hypoglycemia Protocol Dextrose (Glutose 15) 0 gm PO ONCE PRN; Protocol PRN Reason: Hypoglycemia Protocol Docusate Sodium (Colace) 100 mg PO TID [facility] Last Admin: 10/28/17 17:09 Dose: 100 mg Glucagon (Glucagen Diagnostic Kit) 0 mg IM STAT PRN; Protocol PRN Reason: Hypoglycemia Protocol Valproate Sodium 1,000 mg/ (Sodium Chloride) 110 mls @ 100 mls/hr IVPB Q12H [facility] Last Admin: 10/28/17 17:09 Dose: 100 mls/hr Insulin Aspart (Novolog) 0 unit SC Q6H [facility] PRN Reason: Protocol Last Admin: 10/29/17 00:06 Dose: 3 units Insulin Detemir (Levemir) 18 unit SC Q12 [facility] Last Admin: 10/28/17 21:17 Dose: 18 u Lactulose (Enulose) 20 gm PO HS PRN PRN Reason: Constipation Latanoprost (Xalatan Opht) 0 ml OU HS [facility] Last Admin: 10/28/17 21:18 Dose: 2.5 ml Multivitamins/Vitamin C (Multi-Delyn Liquid) 5 ml PO DAILY [facility] Last Admin: 10/28/17 10:44 Dose: 5 ml Ondansetron HCl (Zofran Inj) 4 mg IVP Q6H PRN PRN Reason: Nausea/Vomiting Pantoprazole Sodium (Protonix Inj) 40 mg IVP Q12H [facility] Last Admin: 10/28/17 17:10 Dose: 40 mg Saccharomyces Boulardii (Florastor) 250 mg PO Q12 [facility] Last Admin: 10/28/17 21:17 Dose: 250 mg Thiamine HCl (Vitamin B1 Tab) 100 mg PO BID [facility] Last Admin: 10/28/17 17:10 Dose: 100 mg - Labs Labs: 10/28/17 04:00 10/28/17 06:48 PT 13.0 SECONDS (9.7-12.2) H 10/23/17 04:53 INR 1.2 10/23/17 04:53 APTT 24 SECONDS (21-34) 10/23/17 04:53 Assessment and Plan - Assessment and Plan (Free Text) Assessment: 66 yr old woman 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 Plan: 1. continue current care Dr. jensen
[2017-10-29] MEDS: Valproate 1,000 MG in Sodium Chloride 0.9% 100 ML IVPB SCH ×2 (03:34→14:00)
[2017-10-29 06:55] LABS: BASO # 0.1 K/uL (0.0-0.2); BASO % 0.7 % (0.0-2.0); EOS # 0.2 K/uL (0.0-0.7); EOS % 2.2 % (0.0-4.0); HEMOGLOBIN 11.8 g/dL (11.0-16.0); LYMPH # 1.7 K/uL (1.0-4.3); LYMPH % 22.5 % (20.0-40.0); MEAN CELL VOLUME 85.9 fL (81.0-99.0); MEAN CORPUSCULAR HEMOGLOBIN 28.7 pg (27.0-31.0); MEAN CORPUSCULAR HGB CONC 33.5 g/dL (33.0-37.0); MEAN PLATELET VOLUME 7.7 fL (7.2-11.7); MONO # 0.6 K/uL (0.0-0.8); MONO % 8.4 % (0.0-10.0); NEUT # 5.1 K/uL (1.8-7.0); NEUT % 66.2 % (50.0-75.0); NRBC % 0.1 % (0.0-2.0); RBC 4.11 Mil/uL (3.80-5.20); RED CELL DISTRIBUTION WIDTH 15.3 % (11.5-14.5); WHITE BLOOD COUNT 7.6 K/uL (4.8-10.8)
[2017-10-29 07:02] LABS: ALB/GLOB RATIO 1.1 (1.0-2.1); ALBUMIN 3.3 g/dL (3.5-5.0); ALT/SGPT 24 U/L (9-52); AST/SGOT 16 U/L (14-36); BLOOD UREA NITROGEN 17 mg/dL (7-17); CALCIUM 8.7 mg/dl (8.6-10.4); GFR AFRICAN-AMERICAN > 60; GFR NON-AFRICAN AMERICAN > 60
--- NOTE | 2017-10-29 08:33 | CP.PCM.PN ---
<Stiven Leon R - Last Filed: 10/29/17 15:00> Subjective - Date & Time of Evaluation Date of Evaluation: 10/29/17 Time of Evaluation: 08:28 - Subjective Subjective: PGY-[address] Parsons. No acute events overnight. Son at bedside. Patient slowly improving - per son she is more verbal. She was able to respond yes and no to me and able to squeeze my hand on command. Able to recite her name to me and son's name. Objective - Vital Signs/Intake and Output Vital Signs (last 24 hours): Temp Pulse Resp BP Pulse Ox 98.8 F 86 15 166/68 H 98 10/29/17 04:00 10/29/17 04:00 10/29/17 04:00 10/29/17 04:00 10/29/17 04:00 Intake and Output: 10/29/17 10/29/17 06:59 18:59 Intake Total 520 35 Output Total 1650 Balance -1130 35 - Medications Medications: Current Medications Ascorbic Acid (Vitamin C 500 Mg Tab) 500 mg PO DAILY [facility] Last Admin: 10/28/17 10:43 Dose: 500 mg Cyanocobalamin (Vitamin B12 1000 Mcg Tab) 1,000 mcg PO DAILY [facility] Last Admin: 10/28/17 10:43 Dose: 1,000 mcg Dextrose (Dextrose 50% Inj) 0 ml IV STAT PRN; Protocol PRN Reason: Hypoglycemia Protocol Dextrose (Glutose 15) 0 gm PO ONCE PRN; Protocol PRN Reason: Hypoglycemia Protocol Docusate Sodium (Colace) 100 mg PO TID [facility] Last Admin: 10/28/17 17:09 Dose: 100 mg Glucagon (Glucagen Diagnostic Kit) 0 mg IM STAT PRN; Protocol PRN Reason: Hypoglycemia Protocol Valproate Sodium 1,000 mg/ (Sodium Chloride) 110 mls @ 100 mls/hr IVPB Q12H [facility] Last Admin: 10/29/17 03:34 Dose: 100 mls/hr Insulin Aspart (Novolog) 0 unit SC Q6H MOLLY PRN Reason: Protocol Last Admin: 10/29/17 06:16 Dose: 3 units Insulin Detemir (Levemir) 18 unit SC Q12 [facility] Last Admin: 10/28/17 21:17 Dose: 18 u Lactulose (Enulose) 20 gm PO HS PRN PRN Reason: Constipation Latanoprost (Xalatan Opht) 0 ml OU HS [facility] Last Admin: 10/28/17 21:18 Dose: 2.5 ml Multivitamins/Vitamin C (Multi-Delyn Liquid) 5 ml PO DAILY [facility] Last Admin: 10/28/17 10:44 Dose: 5 ml Ondansetron HCl (Zofran Inj) 4 mg IVP Q6H PRN PRN Reason: Nausea/Vomiting Pantoprazole Sodium (Protonix Inj) 40 mg IVP Q12H [facility] Last Admin: 10/29/17 05:23 Dose: 40 mg Saccharomyces Boulardii (Florastor) 250 mg PO Q12 [facility] Last Admin: 10/28/17 21:17 Dose: 250 mg Thiamine HCl (Vitamin B1 Tab) 100 mg PO BID [facility] Last Admin: 10/28/17 17:10 Dose: 100 mg - Labs Labs: 10/29/17 06:41 10/29/17 06:35 PT 13.0 SECONDS (9.7-12.2) H 10/23/17 04:53 INR 1.2 10/23/17 04:53 APTT 24 SECONDS (21-34) 10/23/17 04:53 - Additional Findings Additional findings: - Constitutional Appears: No Acute Distress - Head Exam Head Exam: NORMAL INSPECTION, (right side dressing on), NGT in place - Eye Exam Additional comments: left sluggish, right non-reactive - Cardiovascular Exam Cardiovascular Exam: REGULAR RHYTHM - GI/Abdominal Exam GI & Abdominal Exam: Distended (nontender/gas distension), Soft, Hypoactive Bowel Sounds - Extremities Exam Extremities Exam: Full ROM - Back Exam Back Exam: NORMAL INSPECTION - Neurological Exam Neurological Exam: Awake (soft voice) - Psychiatric Exam Psychiatric exam: Normal Mood - Skin Skin Exam: Dry - Neurological Exam Neurological Exam: Awake Neuro motor strength exam: Left Upper Extremity: 3, Right Upper Extremity: 3, Left Lower Extremity: 2/1, Right Lower Extremity: 2/1 Additional comments: neurological unchanged from previous examination. Assessment and Plan - Assessment and Plan (Free Text) Assessment: Assessment: Ms. Diaz is a 66 year old female with PMHx of HTN, HLD, T2DM, and NPH with [employer] shunt placed in 2014, she underwent 4 [employer] shunt revisions 02/26/17, 3 during this admission (10/10/2017, 10/11/2017, 10/19/2017, and 10/23/17). Patient admitted to the ICU for AMS and enlarging ventricles noted on CT Scan. S/P revision on - continue to observe in ICU. Plan: History of hydrocephalus 2/2 to NPH ----Neurosurgery Dr Hancock/Ella is consulted ---- ID Dr. Milton consulted - Shunt placed in 2014 - [employer]IVE Shunt repair 02/26/17 - s/p [employer]IVE shunt revision - 3rd this hospital stay (10/10/2017, 10/11/2017, 10/19/2017 , 10/23/2017) - S/P Revision 10/23/17 - placement of left parietal pleural shunt - Head CT 10/23: Interval placement new left posterior superior parietal shunt tube with decrease size of the ventricles. Intraventricular air with small amount of hemorrhage layering within the dependent portion of the atria and occipital horns. Decrease size of the ventricles with improved periventricular white matter changes -transependymal edema. - Repeat Head CT 10/26: Interval decrease size of the ventricular system. Persistent small amount of hemorrhage seen layering in the dependent portion of both atria and occipital horns. Persistent but diminished amount of intraventricular air -keep MAP ~100, ICP 10: CPP >70 -continue IV NS, osmol 305, will increase NA near 145 -keep HOB >30 - Mannitol 25grams given x 1 - Started on vanco Q12 10/20 - discontinued 10/28 - Started Meropenem 10/20 - discontinued 10/28 - Teague cultures - negative to date Neurology consulted, Dr. Nixon - Valproate 1000mg IVPB q12h for seizure prophylaxis Dysphagia 2/2 to Hydrocephalus Swallow/speech therapist on board * Continue dysphagia therapy * Continue therapeutic feeds to maintain swallow function NG Tube Feeds Hypertension - Held Amlodipine 5mg PO daily, Metoprolol Tart 12.5mg PO BID HLD - Crestor 5 mg po hs - HELD Hx Asthma Diabetes - Accuchecks - Medium Dose insulin sliding scale, Levemir dose of 18 units BID, ISS- low Prophylaxis - SCDs - Protonix Q12 - Right TLC placed 10/23/17 Disposition: Cleared by Neurosurgery, will arrange for discharge planning to [facility] / LT[facility] in [facility] or [place]. <Jessica Parsons - Last Filed: 10/29/17 16:11> Objective - Vital Signs/Intake and Output Vital Signs (last 24 hours): Temp Pulse Resp BP Pulse Ox 98.8 F 75 14 112/64 100 10/29/17 12:00 10/29/17 12:00 10/29/17 12:00 10/29/17 12:00 10/29/17 12:00 Intake and Output: 10/29/17 10/29/17 06:59 18:59 Intake Total 520 575 Output Total 1650 Balance -1130 575 - Medications Medications: Current Medications Ascorbic Acid (Vitamin C 500 Mg Tab) 500 mg PO DAILY [facility] Last Admin: 10/29/17 09:17 Dose: 500 mg Cyanocobalamin (Vitamin B12 1000 Mcg Tab) 1,000 mcg PO DAILY [facility] Last Admin: 10/29/17 09:18 Dose: 1,000 mcg Dextrose (Dextrose 50% Inj) 0 ml IV STAT PRN; Protocol PRN Reason: Hypoglycemia Protocol Dextrose (Glutose 15) 0 gm PO ONCE PRN; Protocol PRN Reason: Hypoglycemia Protocol Docusate Sodium (Colace) 100 mg PO TID [facility] Last Admin: 10/29/17 14:00 Dose: 100 mg Glucagon (Glucagen Diagnostic Kit) 0 mg IM STAT PRN; Protocol PRN Reason: Hypoglycemia Protocol Valproate Sodium 1,000 mg/ (Sodium Chloride) 110 mls @ 100 mls/hr IVPB Q12H [facility] Last Admin: 10/29/17 14:00 Dose: 100 mls/hr Insulin Aspart (Novolog) 0 unit SC Q6H [facility] PRN Reason: Protocol Last Admin: 10/29/17 12:09 Dose: 3 units Insulin Detemir (Levemir) 18 unit SC Q12 [facility] Last Admin: 10/29/17 09:21 Dose: 18 u Lactulose (Enulose) 20 gm PO HS PRN PRN Reason: Constipation Latanoprost (Xalatan Opht) 0 ml OU HS [facility] Last Admin: 10/28/17 21:18 Dose: 2.5 ml Multivitamins/Vitamin C (Multi-Delyn Liquid) 5 ml PO DAILY [facility] Last Admin: 10/29/17 09:18 Dose: 5 ml Ondansetron HCl (Zofran Inj) 4 mg IVP Q6H PRN PRN Reason: Nausea/Vomiting Pantoprazole Sodium (Protonix Inj) 40 mg IVP Q12H [facility] Last Admin: 10/29/17 05:23 Dose: 40 mg Saccharomyces Boulardii (Florastor) 250 mg PO Q12 [facility] Last Admin: 10/29/17 09:17 Dose: 250 mg Thiamine HCl (Vitamin B1 Tab) 100 mg PO BID [facility] Last Admin: 10/29/17 09:17 Dose: 100 mg - Labs Labs: 10/29/17 06:41 10/29/17 06:35 PT 13.0 SECONDS (9.7-12.2) H 10/23/17 04:53 INR 1.2 10/23/17 04:53 APTT 24 SECONDS (21-34) 10/23/17 04:53 - Constitutional Appears: Non-toxic - Head Exam Head Exam: absent: ATRAUMATIC (right scalp dressing on) - Eye Exam Eye Exam: Normal appearance - ENT Exam ENT Exam: Mucous Membranes Moist - Neck Exam Neck Exam: Full ROM - Respiratory Exam Respiratory Exam: Clear to Ausculation Bilateral, NORMAL BREATHING PATTERN - Cardiovascular Exam Cardiovascular Exam: REGULAR RHYTHM - GI/Abdominal Exam GI & Abdominal Exam: Distended, Soft, Normal Bowel Sounds. absent: Tenderness - Extremities Exam Extremities Exam: Full ROM - Back Exam Back Exam: NORMAL INSPECTION - Neurological Exam Neurological Exam: Awake - Psychiatric Exam Psychiatric exam: Normal Mood - Skin Skin Exam: Dry Attending/Attestation - Attestation I have personally seen and examined this patient.: Yes I have fully participated in the care of the patient.: Yes I have reviewed all pertinent clinical information, including history, physical exam and plan: Yes Notes (Text): Seen and examined by me. Patient is more alert and responsive today.Her voice is improving,Not able to clear her throat well Need speech therapist to check her swallowing tomorrow Patient denies pain. Off antibiotics,start home meds once she is able to swallow. D/W Son at bedside PT evaluation ,swallowing evaluation tomorrow Continue NG feeds until she start oral diet LTAC once ready discussed with the resident. I agree with the resident's documentation
[2017-10-29] MEDS: Saccharomyces Boulardi 250 mg Cap PO SCH ×2 (09:17→21:46)
[2017-10-29] MEDS: Multiple Vitamins Oral Solution PO SCH (09:18)
[2017-10-29] MEDS: Insulin Detemir 100 units/ml Vial (Levemir) SC SCH ×2 (09:21→21:47)
[2017-10-29] MEDS: Latanoprost 2.5 ml Opht Soln OU SCH (21:47)
[2017-10-30] MEDS: (Novolog) Insulin Aspart, Recombinant 100 u/ml 10 ml vial SC SCH ×4 (00:17→17:50)
[2017-10-30] MEDS: Valproate 1,000 MG in Sodium Chloride 0.9% 100 ML IVPB SCH ×2 (02:35→14:39)
--- NOTE | 2017-10-30 06:20 | CP.PCM.PN ---
Subjective - Date & Time of Evaluation Date of Evaluation: 10/30/17 Time of Evaluation: 06:16 - Subjective Subjective: Ms. Diaz was seen and examined at the ICU. She is more awake, able to answer some questions, and able to verbalize of able to sleep last night. She denies any headache, dizziness, lightheadedness, tolerating NGT feeding. She is able to follow simple commands such as opening her mouth, sticking out her tongue, raising her bilateral upper and lower extremities with the lower extremities much weaker than the upper. According to the staff, the patient had a blank stare episode yesterday, CT scan of the head was done. Valproic level as of 10/27 was 15.3. There was no untoward events overnight. Objective - Vital Signs/Intake and Output Vital Signs (last 24 hours): Temp Pulse Resp BP Pulse Ox 98.1 F 96 H 18 164/79 H 99 10/30/17 04:00 10/30/17 04:00 10/30/17 04:00 10/30/17 04:00 10/30/17 04:00 Intake and Output: 10/29/17 10/30/17 18:59 06:59 Intake Total 740 485 Output Total 750 Balance -10 485 - Medications Medications: Current Medications Ascorbic Acid (Vitamin C 500 Mg Tab) 500 mg PO DAILY [facility] Last Admin: 10/29/17 09:17 Dose: 500 mg Cyanocobalamin (Vitamin B12 1000 Mcg Tab) 1,000 mcg PO DAILY [facility] Last Admin: 10/29/17 09:18 Dose: 1,000 mcg Dextrose (Dextrose 50% Inj) 0 ml IV STAT PRN; Protocol PRN Reason: Hypoglycemia Protocol Dextrose (Glutose 15) 0 gm PO ONCE PRN; Protocol PRN Reason: Hypoglycemia Protocol Docusate Sodium (Colace) 100 mg PO TID [facility] Last Admin: 10/29/17 18:04 Dose: 100 mg Glucagon (Glucagen Diagnostic Kit) 0 mg IM STAT PRN; Protocol PRN Reason: Hypoglycemia Protocol Valproate Sodium 1,000 mg/ (Sodium Chloride) 110 mls @ 100 mls/hr IVPB Q12H [facility] Last Admin: 10/30/17 02:35 Dose: 100 mls/hr Insulin Aspart (Novolog) 0 unit SC Q6H [facility] PRN Reason: Protocol Last Admin: 10/30/17 05:32 Dose: 3 units Insulin Detemir (Levemir) 18 unit SC Q12 [facility] Last Admin: 10/29/17 21:47 Dose: 18 u Lactulose (Enulose) 20 gm PO HS PRN PRN Reason: Constipation Last Admin: 10/29/17 21:46 Dose: 20 gm Latanoprost (Xalatan Opht) 0 ml OU HS [facility] Last Admin: 10/29/17 21:47 Dose: 2.5 ml Multivitamins/Vitamin C (Multi-Delyn Liquid) 5 ml PO DAILY [facility] Last Admin: 10/29/17 09:18 Dose: 5 ml Ondansetron HCl (Zofran Inj) 4 mg IVP Q6H PRN PRN Reason: Nausea/Vomiting Pantoprazole Sodium (Protonix Inj) 40 mg IVP Q12H [facility] Last Admin: 10/30/17 05:17 Dose: 40 mg Saccharomyces Boulardii (Florastor) 250 mg PO Q12 [facility] Last Admin: 10/29/17 21:46 Dose: 250 mg Thiamine HCl (Vitamin B1 Tab) 100 mg PO BID [facility] Last Admin: 10/29/17 18:04 Dose: 100 mg - Labs Labs: 10/29/17 06:41 10/29/17 06:35 PT 13.0 SECONDS (9.7-12.2) H 10/23/17 04:53 INR 1.2 10/23/17 04:53 APTT 24 SECONDS (21-34) 10/23/17 04:53 - Constitutional Appears: No Acute Distress - Head Exam Head Exam: NORMAL INSPECTION - Eye Exam Additional comments: left eye react briskly than the right. - Neurological Exam Neurological Exam: Awake Neuro motor strength exam: Left Upper Extremity: 3, Right Upper Extremity: 3, Left Lower Extremity: 2/1, Right Lower Extremity: 2/1 Additional comments: awake, able to answer some questions, follows commands with her lower extremities weaker than the upper,sensation is intact. Assessment and Plan (1) Mental status change Assessment & Plan: Case discussed with Dr. Nixon, continue all current medical including current AED dose, physical and occupational therapies. Recommend keeping head of bed elevated at least 40 degrees, normothermic, blood pressure and glycemic control , will repeat valproic level in am since the dose was just adjusted last monday. Status: Acute
[2017-10-30 06:34] LABS: BASO % 0.6 % (0.0-2.0); EOS # 0.1 K/uL (0.0-0.7); EOS % 1.8 % (0.0-4.0); LYMPH # 1.7 K/uL (1.0-4.3); LYMPH % 21.6 % (20.0-40.0); MEAN CELL VOLUME 87.3 fL (81.0-99.0); MEAN CORPUSCULAR HEMOGLOBIN 29.2 pg (27.0-31.0); MEAN CORPUSCULAR HGB CONC 33.4 g/dL (33.0-37.0); MONO # 0.7 K/uL (0.0-0.8); MONO % 8.1 % (0.0-10.0); NEUT # 5.5 K/uL (1.8-7.0); NEUT % 67.9 % (50.0-75.0); RBC 4.12 Mil/uL (3.80-5.20); RED CELL DISTRIBUTION WIDTH 14.9 % (11.5-14.5); WHITE BLOOD COUNT 8.1 K/uL (4.8-10.8)
[2017-10-30 06:51] LABS: ALB/GLOB RATIO 1.1 (1.0-2.1); ALBUMIN 3.4 g/dL (3.5-5.0); ALT/SGPT 25 U/L (9-52); AST/SGOT 18 U/L (14-36); BLOOD UREA NITROGEN 19 mg/dL (7-17); CALCIUM 8.9 mg/dl (8.6-10.4); GFR AFRICAN-AMERICAN > 60; GFR NON-AFRICAN AMERICAN > 60
--- NOTE | 2017-10-30 08:36 | CT ---
PROCEDURE: CT HEAD WITHOUT CONTRAST. HISTORY: Change in mental status COMPARISON: 10/26/2017 TECHNIQUE: Axial computed tomography images were obtained through the head/brain without intravenous contrast. Radiation dose: Total exam DLP = 940.22 mGy-cm. This CT exam was performed using one or more of the following dose reduction techniques: Automated exposure control, adjustment of the mA and/or kV according to patient size, and/or use of iterative reconstruction technique. FINDINGS: HEMORRHAGE: Small amount of intraventricular hemorrhage. No other extra-axial or intraparenchymal hemorrhage appreciated. The extent of intraventricular hemorrhage is unchanged compared to 10/26/2017. BRAIN: No mass effect or edema. No atrophy or chronic microvascular ischemic changes. VENTRICLES: Mild ventriculomegaly persists. There is a left parietal shunt catheter again noted. Unchanged in position. There is a fragment of shunt catheter noted traversing the frontal horn of the right lateral ventricle, unchanged. These 2 catheters do not appear to connect. Small amount of intraventricular hemorrhage, unchanged. CALVARIUM: There is a right frontal sarina hole. There is a left parietal sarina oral old traversed by a shunt catheter. Cutaneous clayton are noted over both sarina holes. PARANASAL SINUSES: Chronic ethmoid, sphenoid and right maxillary sinusitis. MASTOID AIR CELLS: Unremarkable as visualized. No inflammatory changes. OTHER FINDINGS: None. IMPRESSION: Left parietal shunt catheter unchanged. There is a remaining fragment of right frontal shunt catheter unchanged from prior examination. Small amount of residual intraventricular hemorrhage unchanged. Mild ventriculomegaly. Chronic paranasal sinusitis. Preliminary interpretation of this examination was reported by [employer] [facility] at 7:37 p.m. on 10/29/2017. There is concurrence of this report with the preliminary interpretation.
[2017-10-30] MEDS: Saccharomyces Boulardi 250 mg Cap PO SCH ×2 (10:11→22:49)
[2017-10-30] MEDS: Insulin Detemir 100 units/ml Vial (Levemir) SC SCH ×2 (10:12→22:49)
--- NOTE | 2017-10-30 11:20 | CP.PCM.PN ---
<Stiven Leon - Last Filed: 10/30/17 11:17> Subjective - Date & Time of Evaluation Date of Evaluation: 10/30/17 Time of Evaluation: 11:17 - Subjective Subjective: PGY-[address] Beaulieu. No acute events noted overnight. Patient seen sleeping - able to awaken. Able to speak and say she was not in any pain. Able to squeeze my hand and wiggle her toes on command. Objective - Vital Signs/Intake and Output Vital Signs (last 24 hours): Temp Pulse Resp BP Pulse Ox 98.5 F 98 H 15 167/82 H 98 10/30/17 08:00 10/30/17 08:00 10/30/17 08:00 10/30/17 08:00 10/30/17 08:00 Intake and Output: 10/30/17 10/30/17 06:59 18:59 Intake Total 520 Output Total 300 Balance 220 - Medications Medications: Current Medications Ascorbic Acid (Vitamin C 500 Mg Tab) 500 mg PO DAILY [facility] Last Admin: 10/30/17 10:11 Dose: 500 mg Cyanocobalamin (Vitamin B12 1000 Mcg Tab) 1,000 mcg PO DAILY [facility] Last Admin: 10/30/17 10:11 Dose: 1,000 mcg Dextrose (Dextrose 50% Inj) 0 ml IV STAT PRN; Protocol PRN Reason: Hypoglycemia Protocol Dextrose (Glutose 15) 0 gm PO ONCE PRN; Protocol PRN Reason: Hypoglycemia Protocol Docusate Sodium (Colace) 100 mg PO TID [facility] Last Admin: 10/30/17 10:11 Dose: 100 mg Glucagon (Glucagen Diagnostic Kit) 0 mg IM STAT PRN; Protocol PRN Reason: Hypoglycemia Protocol Valproate Sodium 1,000 mg/ (Sodium Chloride) 110 mls @ 100 mls/hr IVPB Q12H [facility] Last Admin: 10/30/17 02:35 Dose: 100 mls/hr Insulin Aspart (Novolog) 0 unit SC Q6H [facility] PRN Reason: Protocol Last Admin: 10/30/17 05:32 Dose: 3 units Insulin Detemir (Levemir) 18 unit SC Q12 [facility] Last Admin: 10/30/17 10:12 Dose: 18 u Lactulose (Enulose) 20 gm PO HS PRN PRN Reason: Constipation Last Admin: 06/24/18 21:46 Dose: 20 gm Latanoprost (Xalatan Opht) 0 ml OU HS [facility] Last Admin: 10/29/17 21:47 Dose: 2.5 ml Multivitamins/Vitamin C (Multi-Delyn Liquid) 5 ml PO DAILY [facility] Last Admin: 10/29/17 09:18 Dose: 5 ml Ondansetron HCl (Zofran Inj) 4 mg IVP Q6H PRN PRN Reason: Nausea/Vomiting Pantoprazole Sodium (Protonix Inj) 40 mg IVP Q12H [facility] Last Admin: 10/30/17 05:17 Dose: 40 mg Saccharomyces Boulardii (Florastor) 250 mg PO Q12 [facility] Last Admin: 10/30/17 10:11 Dose: 250 mg Thiamine HCl (Vitamin B1 Tab) 100 mg PO BID [facility] Last Admin: 10/30/17 10:11 Dose: 100 mg - Labs Labs: 10/30/17 06:28 10/30/17 06:23 PT 13.0 SECONDS (9.7-12.2) H 10/23/17 04:53 INR 1.2 10/23/17 04:53 APTT 24 SECONDS (21-34) 10/23/17 04:53 - Additional Findings Additional findings: - Constitutional Appears: No Acute Distress - Head Exam Head Exam: NORMAL INSPECTION, (right side dressing on), NGT in place - Eye Exam Additional comments: left sluggish, right non-reactive - Cardiovascular Exam Cardiovascular Exam: REGULAR RHYTHM - GI/Abdominal Exam GI & Abdominal Exam: Distended (nontender/gas distension), Soft, Hypoactive Bowel Sounds - Extremities Exam Extremities Exam: Full ROM - Back Exam Back Exam: NORMAL INSPECTION - Neurological Exam Neurological Exam: Awake (soft voice) - Psychiatric Exam Psychiatric exam: Normal Mood - Skin Skin Exam: Dry - Neurological Exam Neurological Exam: Awake Neuro motor strength exam: Left Upper Extremity: 3, Right Upper Extremity: 3, Left Lower Extremity: 2/1, Right Lower Extremity: 2/1 Additional comments: neurological unchanged from previous examination. Assessment and Plan - Assessment and Plan (Free Text) Assessment: Assessment: Ms. 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 Patient admitted to the ICU for AMS and enlarging ventricles noted on CT Scan. S/P revision on - continue to observe in ICU. Plan: History of hydrocephalus 2/2 to NPH ----Neurosurgery Dr Hancock/Ella is consulted ---- ID Dr. Milton consulted - Shunt placed in 2014 - PRODUCT DEVELOPMENT CARPENTER Shunt repair 02/26/17 - s/p PRODUCT DEVELOPMENT CARPENTER shunt revision - 3rd this hospital stay (10/10/2017, 10/11/2017, 10/19/2017 , 10/23/2017) - S/P Revision 10/23/17 - placement of left parietal pleural shunt - Head CT 10/23: Interval placement new left posterior superior parietal shunt tube with decrease size of the ventricles. Intraventricular air with small amount of hemorrhage layering within the dependent portion of the atria and occipital horns. Decrease size of the ventricles with improved periventricular white matter changes -transependymal edema. - Repeat Head CT 10/26: Interval decrease size of the ventricular system. Persistent small amount of hemorrhage seen layering in the dependent portion of both atria and occipital horns. Persistent but diminished amount of intraventricular air - Repeat Heat Ct 10/29 (ordered due to blank stare episode on 10/29): unchanged from previous -keep MAP ~100, ICP 10: CPP >70 -continue IV NS, osmol 305, will increase NA near 145 -keep HOB >30 - Mannitol 25grams given x 1 - Started on vanco Q12 10/20 - discontinued 10/28 - Started Meropenem 10/20 - discontinued 10/28 - Teague cultures - negative to date Neurology consulted, Dr. Nixon - Valproate 1000mg IVPB q12h for seizure prophylaxis * F/U repeat valproic acid level Dysphagia 2/2 to Hydrocephalus Swallow/speech therapist on board * Continue dysphagia therapy * Continue therapeutic feeds to maintain swallow function NG Tube Feeds Hypertension - Held Amlodipine 5mg PO daily, Metoprolol Tart 12.5mg PO BID HLD - Crestor 5 mg po hs - HELD Hx Asthma Diabetes - Accuchecks - Medium Dose insulin sliding scale, Levemir dose of 18 units BID, ISS- low Prophylaxis - SCDs - Protonix Q12 - Right TLC placed 10/23/17 Disposition: Cleared by Neurosurgery, will arrange for discharge planning to [facility] LT[facility] in [facility] or [place]. <David Beaulieu H - Last Filed: 10/30/17 14:45> Objective - Vital Signs/Intake and Output Vital Signs (last 24 hours): Temp Pulse Resp BP Pulse Ox 98.8 F 97 H 15 128/79 97 10/30/17 12:00 10/30/17 12:00 10/30/17 12:00 10/30/17 12:00 10/30/17 12:00 Intake and Output: 10/30/17 10/30/17 06:59 18:59 Intake Total 520 360 Output Total 300 Balance 220 360 - Medications Medications: Current Medications Ascorbic Acid (Vitamin C 500 Mg Tab) 500 mg PO DAILY [facility] Last Admin: 10/30/17 10:11 Dose: 500 mg Cyanocobalamin (Vitamin B12 1000 Mcg Tab) 1,000 mcg PO DAILY [facility] Last Admin: 10/30/17 10:11 Dose: 1,000 mcg Dextrose (Dextrose 50% Inj) 0 ml IV STAT PRN; Protocol PRN Reason: Hypoglycemia Protocol Dextrose (Glutose 15) 0 gm PO ONCE PRN; Protocol PRN Reason: Hypoglycemia Protocol Docusate Sodium (Colace) 100 mg PO TID [facility] Last Admin: 10/30/17 14:39 Dose: 100 mg Glucagon (Glucagen Diagnostic Kit) 0 mg IM STAT PRN; Protocol PRN Reason: Hypoglycemia Protocol Valproate Sodium 1,000 mg/ (Sodium Chloride) 110 mls @ 100 mls/hr IVPB Q12H [facility] Last Admin: 10/30/17 14:39 Dose: 100 mls/hr Insulin Aspart (Novolog) 0 unit SC Q6H [facility] PRN Reason: Protocol Last Admin: 10/30/17 12:34 Dose: 3 units Insulin Detemir (Levemir) 18 unit SC Q12 [facility] Last Admin: 10/30/17 10:12 Dose: 18 u Lactulose (Enulose) 20 gm PO HS PRN PRN Reason: Constipation Last Admin: 10/29/17 21:46 Dose: 20 gm Latanoprost (Xalatan Opht) 0 ml OU HS [facility] Last Admin: 10/29/17 21:47 Dose: 2.5 ml Multivitamins/Vitamin C (Multi-Delyn Liquid) 5 ml PO DAILY [facility] Last Admin: 10/30/17 12:34 Dose: 5 ml Ondansetron HCl (Zofran Inj) 4 mg IVP Q6H PRN PRN Reason: Nausea/Vomiting Pantoprazole Sodium (Protonix Inj) 40 mg IVP Q12H [facility] Last Admin: 10/30/17 05:17 Dose: 40 mg Saccharomyces Boulardii (Florastor) 250 mg PO Q12 [facility] Last Admin: 10/30/17 10:11 Dose: 250 mg Thiamine HCl (Vitamin B1 Tab) 100 mg PO BID [facility] Last Admin: 10/30/17 10:11 Dose: 100 mg - Labs Labs: 10/30/17 06:28 10/30/17 06:23 PT 13.0 SECONDS (9.7-12.2) H 10/23/17 04:53 INR 1.2 10/23/17 04:53 APTT 24 SECONDS (21-34) 10/23/17 04:53 Attending/Attestation - Attestation I have personally seen and examined this patient.: Yes I have fully participated in the care of the patient.: Yes I have reviewed all pertinent clinical information, including history, physical exam and plan: Yes Notes (Text): 10/30/17 14:41 Medical attending: Patient was seen and examined by me. Agree with the above note by the resident The patient was asleep however was able to wake up with name call and slowly answer questions. She was able to sqeeze my hand and move her toes on command She has been through so much testing and procedures The CBC and CMP remains stable. Vital signs stable as well. 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 David Beaulieu
[2017-10-30] MEDS: Multiple Vitamins Oral Solution PO SCH (12:34)
[2017-10-30] MEDS: Latanoprost 2.5 ml Opht Soln OU SCH (23:49)
[2017-10-31] MEDS: (Novolog) Insulin Aspart, Recombinant 100 u/ml 10 ml vial SC SCH ×5 (00:07→23:54)
[2017-10-31] MEDS: Valproate 1,000 MG in Sodium Chloride 0.9% 100 ML IVPB SCH ×2 (02:46→14:49)
[2017-10-31 07:17] LABS: BASO # 0.1 K/uL (0.0-0.2); BASO % 0.9 % (0.0-2.0); EOS # 0.2 K/uL (0.0-0.7); EOS % 2.2 % (0.0-4.0); HEMOGLOBIN 11.8 g/dL (11.0-16.0); MEAN CELL VOLUME 86.4 fL (81.0-99.0); MEAN CORPUSCULAR HEMOGLOBIN 28.7 pg (27.0-31.0); MEAN CORPUSCULAR HGB CONC 33.2 g/dL (33.0-37.0); MEAN PLATELET VOLUME 7.8 fL (7.2-11.7); MONO # 0.6 K/uL (0.0-0.8); MONO % 6.8 % (0.0-10.0); NEUT # 5.5 K/uL (1.8-7.0); NEUT % 66.1 % (50.0-75.0); RBC 4.13 Mil/uL (3.80-5.20); RED CELL DISTRIBUTION WIDTH 14.7 % (11.5-14.5); WHITE BLOOD COUNT 8.3 K/uL (4.8-10.8)
[2017-10-31 07:48] LABS: ALB/GLOB RATIO 1.2 (1.0-2.1); ALBUMIN 3.4 g/dL (3.5-5.0); ALT/SGPT 22 U/L (9-52); AST/SGOT 20 U/L (14-36); BLOOD UREA NITROGEN 25 mg/dL (7-17); GFR AFRICAN-AMERICAN > 60; GFR NON-AFRICAN AMERICAN > 60
[2017-10-31] MEDS: Insulin Detemir 100 units/ml Vial (Levemir) SC SCH ×2 (09:10→22:08)
[2017-10-31] MEDS: Saccharomyces Boulardi 250 mg Cap PO SCH ×2 (09:10→22:08)
[2017-10-31] MEDS: Multiple Vitamins Tab PO SCH (09:10)
--- NOTE | 2017-10-31 15:21 | CP.PCM.PN ---
Subjective - Date & Time of Evaluation Date of Evaluation: 10/31/17 Time of Evaluation: 03:10 - Subjective Subjective: dictated Objective - Vital Signs/Intake and Output Vital Signs (last 24 hours): Temp Pulse Resp BP Pulse Ox 98.0 F 90 20 138/89 96 10/31/17 08:00 10/31/17 08:00 10/31/17 08:00 10/31/17 08:00 10/31/17 08:00 - Medications Medications: Current Medications Ascorbic Acid (Vitamin C 500 Mg Tab) 500 mg PO DAILY [facility] Last Admin: 10/31/17 10:21 Dose: 500 mg Cyanocobalamin (Vitamin B12 1000 Mcg Tab) 1,000 mcg PO DAILY [facility] Last Admin: 10/31/17 09:10 Dose: 1,000 mcg Dextrose (Dextrose 50% Inj) 0 ml IV STAT PRN; Protocol PRN Reason: Hypoglycemia Protocol Dextrose (Glutose 15) 0 gm PO ONCE PRN; Protocol PRN Reason: Hypoglycemia Protocol Docusate Sodium (Colace) 100 mg PO TID [facility] Last Admin: 10/31/17 14:48 Dose: 100 mg Glucagon (Glucagen Diagnostic Kit) 0 mg IM STAT PRN; Protocol PRN Reason: Hypoglycemia Protocol Valproate Sodium 1,000 mg/ (Sodium Chloride) 110 mls @ 100 mls/hr IVPB Q12H [facility] Last Admin: 10/31/17 14:49 Dose: 100 mls/hr Insulin Aspart (Novolog) 0 unit SC Q6H [facility] PRN Reason: Protocol Last Admin: 10/31/17 12:46 Dose: 4 units Insulin Detemir (Levemir) 18 unit SC Q12 [facility] Last Admin: 10/31/17 09:10 Dose: 18 u Lactulose (Enulose) 20 gm PO HS PRN PRN Reason: Constipation Last Admin: 10/29/17 21:46 Dose: 20 gm Latanoprost (Xalatan Opht) 0 ml OU HS [facility] Last Admin: 10/30/17 23:49 Dose: 2.5 ml Multivitamins (Hexavitamin) 1 tab PO DAILY [facility] Last Admin: 10/31/17 09:10 Dose: 1 tab Ondansetron HCl (Zofran Inj) 4 mg IVP Q6H PRN PRN Reason: Nausea/Vomiting Pantoprazole Sodium (Protonix Inj) 40 mg IVP Q12H [facility] Last Admin: 10/31/17 05:41 Dose: 40 mg Saccharomyces Boulardii (Florastor) 250 mg PO Q12 [facility] Last Admin: 10/31/17 09:10 Dose: 250 mg Thiamine HCl (Vitamin B1 Tab) 100 mg PO BID [facility] Last Admin: 10/31/17 09:10 Dose: 100 mg - Labs Labs: 10/31/17 07:01 10/31/17 07:01 PT 13.0 SECONDS (9.7-12.2) H 10/23/17 04:53 INR 1.2 10/23/17 04:53 APTT 24 SECONDS (21-34) 10/23/17 04:53
--- NOTE | 2017-10-31 17:13 | CP.PCM.PN ---
<Stiven Leon - Last Filed: 10/31/17 17:10> Subjective - Date & Time of Evaluation Date of Evaluation: 10/31/17 Time of Evaluation: 09:00 - Subjective Subjective: PGY-[address] Beaulieu. No acute events noted overnight. Patient seen sleeping - able to awaken. Able to speak and say she was not in any pain. Able to squeeze my hand and wiggle her toes on command. Was not able to track my finger. Objective - Vital Signs/Intake and Output Vital Signs (last 24 hours): Temp Pulse Resp BP Pulse Ox 97.9 F 94 H 20 138/92 H 97 10/31/17 15:50 10/31/17 15:50 10/31/17 15:50 10/31/17 15:50 10/31/17 15:50 - Medications Medications: Current Medications Ascorbic Acid (Vitamin C 500 Mg Tab) 500 mg PO DAILY [facility] Last Admin: 10/31/17 10:21 Dose: 500 mg Cyanocobalamin (Vitamin B12 1000 Mcg Tab) 1,000 mcg PO DAILY [facility] Last Admin: 10/31/17 09:10 Dose: 1,000 mcg Dextrose (Dextrose 50% Inj) 0 ml IV STAT PRN; Protocol PRN Reason: Hypoglycemia Protocol Dextrose (Glutose 15) 0 gm PO ONCE PRN; Protocol PRN Reason: Hypoglycemia Protocol Docusate Sodium (Colace) 100 mg PO TID [facility] Last Admin: 10/31/17 14:48 Dose: 100 mg Glucagon (Glucagen Diagnostic Kit) 0 mg IM STAT PRN; Protocol PRN Reason: Hypoglycemia Protocol Valproate Sodium 1,000 mg/ (Sodium Chloride) 110 mls @ 100 mls/hr IVPB Q12H [facility] Last Admin: 10/31/17 14:49 Dose: 100 mls/hr Insulin Aspart (Novolog) 0 unit SC Q6H [facility] PRN Reason: Protocol Last Admin: 10/31/17 12:46 Dose: 4 units Insulin Detemir (Levemir) 18 unit SC Q12 [facility] Last Admin: 10/31/17 09:10 Dose: 18 u Lactulose (Enulose) 20 gm PO HS PRN PRN Reason: Constipation Last Admin: 10/29/17 21:46 Dose: 20 gm Latanoprost (Xalatan Opht) 0 ml OU HS [facility] Last Admin: 10/30/17 23:49 Dose: 2.5 ml Multivitamins (Hexavitamin) 1 tab PO DAILY [facility] Last Admin: 10/31/17 09:10 Dose: 1 tab Ondansetron HCl (Zofran Inj) 4 mg IVP Q6H PRN PRN Reason: Nausea/Vomiting Pantoprazole Sodium (Protonix Inj) 40 mg IVP Q12H [facility] Last Admin: 10/31/17 05:41 Dose: 40 mg Saccharomyces Boulardii (Florastor) 250 mg PO Q12 [facility] Last Admin: 10/31/17 09:10 Dose: 250 mg Thiamine HCl (Vitamin B1 Tab) 100 mg PO BID [facility] Last Admin: 10/31/17 09:10 Dose: 100 mg - Labs Labs: 10/31/17 07:01 10/31/17 07:01 PT 13.0 SECONDS (9.7-12.2) H 10/23/17 04:53 INR 1.2 10/23/17 04:53 APTT 24 SECONDS (21-34) 10/23/17 04:53 - Additional Findings Additional findings: - Constitutional Appears: No Acute Distress - Head Exam Head Exam: NORMAL INSPECTION, (right side dressing on), NGT in place - Eye Exam Additional comments: left sluggish, right non-reactive, extraocular muscles intact however patient was not able to track my finger - Cardiovascular Exam Cardiovascular Exam: REGULAR RHYTHM - GI/Abdominal Exam GI & Abdominal Exam: Distended (nontender/gas distension), Soft, Hypoactive Bowel Sounds - Extremities Exam Extremities Exam: able to squeeze my hand and wiggle her toes on command - Back Exam Back Exam: NORMAL INSPECTION - Neurological Exam Neurological Exam: Awake (soft voice), extraocular muscles intact however patient was not able to track my finger - Psychiatric Exam Psychiatric exam: flat affect due to aphasia rather than mood - Skin Skin Exam: Dry - Neurological Exam Neurological Exam: Awake Neuro motor strength exam: Left Upper Extremity: 3, Right Upper Extremity: 3, Left Lower Extremity: 2/1, Right Lower Extremity: 2/1 Additional comments: neurological unchanged from previous examination. Assessment and Plan - Assessment and Plan (Free Text) Assessment: Assessment: Ms. 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 Patient admitted to the ICU for AMS and enlarging ventricles noted on CT Scan. S/P revision on - continue to observe in ICU. Plan: History of hydrocephalus 2/2 to NPH ----Neurosurgery Dr Hancock/Ella is consulted ---- ID Dr. Milton consulted - Shunt placed in 2014 - INDUSTRIAL X RAY OPERATOR Shunt repair 02/26/17 - s/p INDUSTRIAL X RAY OPERATOR shunt revision - 3rd this hospital stay (10/10/2017, 10/11/2017, 10/19/2017 , 10/23/2017) - S/P Revision 10/23/17 - placement of left parietal pleural shunt - Head CT 10/23: Interval placement new left posterior superior parietal shunt tube with decrease size of the ventricles. Intraventricular air with small amount of hemorrhage layering within the dependent portion of the atria and occipital horns. Decrease size of the ventricles with improved periventricular white matter changes -transependymal edema. - Repeat Head CT 10/26: Interval decrease size of the ventricular system. Persistent small amount of hemorrhage seen layering in the dependent portion of both atria and occipital horns. Persistent but diminished amount of intraventricular air - Repeat Heat Ct 10/29 (ordered due to blank stare episode on 10/29): unchanged from previous -keep MAP ~100, ICP 10: CPP >70 -continue IV NS, osmol 305, will increase NA near 145 -keep HOB >30 - Mannitol 25grams given x 1 - Started on vanco Q12 10/20 - discontinued 10/28 - Started Meropenem 10/20 - discontinued 10/28 - Teague cultures - negative to date Neurology consulted, Dr. Nixon - Valproate 1000mg IVPB q12h for seizure prophylaxis * repeat valproic acid level normal Dysphagia 2/2 to Hydrocephalus Swallow/speech therapist on board * Continue dysphagia therapy * Continue therapeutic feeds to maintain swallow function NG Tube Feeds Hypertension - Held Amlodipine 5mg PO daily, Metoprolol Tart 12.5mg PO BID HLD - Crestor 5 mg po hs - HELD Hx Asthma Diabetes - Accuchecks - Medium Dose insulin sliding scale, Levemir dose of 18 units BID, ISS- low Prophylaxis - SCDs - Protonix Q12 - Right TLC placed 10/23/17 Disposition: Cleared by Neurosurgery, will arrange for discharge planning LT[facility] in [facility] or [place]. <David Beaulieu H - Last Filed: 10/31/17 18:34> Objective - Vital Signs/Intake and Output Vital Signs (last 24 hours): Temp Pulse Resp BP Pulse Ox 97.9 F 94 H 20 138/92 H 97 10/31/17 15:50 10/31/17 15:50 10/31/17 15:50 10/31/17 15:50 10/31/17 15:50 - Medications Medications: Current Medications Ascorbic Acid (Vitamin C 500 Mg Tab) 500 mg PO DAILY [facility] Last Admin: 10/31/17 10:21 Dose: 500 mg Cyanocobalamin (Vitamin B12 1000 Mcg Tab) 1,000 mcg PO DAILY [facility] Last Admin: 10/31/17 09:10 Dose: 1,000 mcg Dextrose (Dextrose 50% Inj) 0 ml IV STAT PRN; Protocol PRN Reason: Hypoglycemia Protocol Dextrose (Glutose 15) 0 gm PO ONCE PRN; Protocol PRN Reason: Hypoglycemia Protocol Docusate Sodium (Colace) 100 mg PO TID [facility] Last Admin: 10/31/17 17:37 Dose: 100 mg Glucagon (Glucagen Diagnostic Kit) 0 mg IM STAT PRN; Protocol PRN Reason: Hypoglycemia Protocol Valproate Sodium 1,000 mg/ (Sodium Chloride) 110 mls @ 100 mls/hr IVPB Q12H [facility] Last Admin: 10/31/17 14:49 Dose: 100 mls/hr Insulin Aspart (Novolog) 0 unit SC Q6H [facility] PRN Reason: Protocol Last Admin: 10/31/17 17:53 Dose: 4 units Insulin Detemir (Levemir) 18 unit SC Q12 [facility] Last Admin: 10/31/17 09:10 Dose: 18 u Lactulose (Enulose) 20 gm PO HS PRN PRN Reason: Constipation Last Admin: 10/29/17 21:46 Dose: 20 gm Latanoprost (Xalatan Opht) 0 ml OU HS [facility] Last Admin: 10/30/17 23:49 Dose: 2.5 ml Multivitamins (Hexavitamin) 1 tab PO DAILY [facility] Last Admin: 10/31/17 09:10 Dose: 1 tab Ondansetron HCl (Zofran Inj) 4 mg IVP Q6H PRN PRN Reason: Nausea/Vomiting Pantoprazole Sodium (Protonix Inj) 40 mg IVP Q12H [facility] Last Admin: 10/31/17 17:36 Dose: 40 mg Saccharomyces Boulardii (Florastor) 250 mg PO Q12 [facility] Last Admin: 10/31/17 09:10 Dose: 250 mg Thiamine HCl (Vitamin B1 Tab) 100 mg PO BID [facility] Last Admin: 10/31/17 17:36 Dose: 100 mg - Labs Labs: 10/31/17 07:01 10/31/17 07:01 PT 13.0 SECONDS (9.7-12.2) H 10/23/17 04:53 INR 1.2 10/23/17 04:53 APTT 24 SECONDS (21-34) 10/23/17 04:53 Attending/Attestation - Attestation I have personally seen and examined this patient.: Yes I have fully participated in the care of the patient.: Yes I have reviewed all pertinent clinical information, including history, physical exam and plan: Yes Notes (Text): 10/31/17 18:32 Medical attending: Patient was seen and examined by me. Agree with the above note by the resident She was able to follow very simple commands today such as squeezing my hand and lifting her arms up. She had some blurry vision on exam. Denied pain, denied shortness of breath At this moment she is bedbound - per discussion with case workers she will need possibly BRIA Beaulieu
[2017-10-31] MEDS: Latanoprost 2.5 ml Opht Soln OU SCH (22:09)
--- NOTE | 2017-10-31 22:38 | PN ---
DATE: 10/31/2017 SUBJECTIVE: Patient is afebrile. She is opening her eyes. Her voice is hoarse, very poorly understandable but she is responding to the question of families at the bedside. OBJECTIVE: VITAL SIGNS: T-max is 97.9, pulse 94, blood pressure 138/92, respirations are 20. HEENT: Head has dressings. NECK: Supple. Right neck has some sutures at the previous catheter site. LUNGS: Clear. HEART: S1, S2 is regular. ABDOMEN: Soft, nontender. No guarding, no rigidity present. EXTREMITIES: With foot protectors. LABORATORY DATA: White count is 8.3, hemoglobin 11.8, hematocrit 35.7. Chemistry shows BUN is 25, creatinine 0.6. ASSESSMENT AND PLAN: She is afebrile and she was getting actually valproate IV and family was thinking she is getting antibiotics, but she is off all the antibiotics at this time and is waiting for rehab and she is on Saccharomyces which can be discontinued after 5 more days. Naga Milton MD
[2017-11-01] MEDS: Valproate 1,000 MG in Sodium Chloride 0.9% 100 ML IVPB SCH ×2 (02:23→15:53)
[2017-11-01] MEDS: (Novolog) Insulin Aspart, Recombinant 100 u/ml 10 ml vial SC SCH ×3 (06:25→18:10)
--- NOTE | 2017-11-01 06:38 | CP.PCM.PN ---
Subjective - Date & Time of Evaluation Date of Evaluation: 11/01/17 Time of Evaluation: 06:35 - Subjective Subjective: Ms. Diaz was seen and examined at the bedside. She is awake, able to answer some questions but unable to verbalize place, person, and time. She is able to follow simple commands with her lower extremities weaker than the lower extremities. She has bilateral lower SCD's.She has the right parietal dressing intact, tolerating NGT feeding. There was no untoward events overnight. Objective - Vital Signs/Intake and Output Vital Signs (last 24 hours): Temp Pulse Resp BP Pulse Ox 98.9 F 97 H 20 140/82 96 10/31/17 23:19 10/31/17 23:19 10/31/17 23:19 10/31/17 23:19 10/31/17 23:19 Intake and Output: 10/31/17 11/01/17 18:59 06:59 Output Total 550 Balance -550 - Medications Medications: Current Medications Ascorbic Acid (Vitamin C 500 Mg Tab) 500 mg PO DAILY [facility] Last Admin: 10/31/17 10:21 Dose: 500 mg Cyanocobalamin (Vitamin B12 1000 Mcg Tab) 1,000 mcg PO DAILY [facility] Last Admin: 10/31/17 09:10 Dose: 1,000 mcg Dextrose (Dextrose 50% Inj) 0 ml IV STAT PRN; Protocol PRN Reason: Hypoglycemia Protocol Dextrose (Glutose 15) 0 gm PO ONCE PRN; Protocol PRN Reason: Hypoglycemia Protocol Docusate Sodium (Colace) 100 mg PO TID [facility] Last Admin: 10/31/17 17:37 Dose: 100 mg Glucagon (Glucagen Diagnostic Kit) 0 mg IM STAT PRN; Protocol PRN Reason: Hypoglycemia Protocol Valproate Sodium 1,000 mg/ (Sodium Chloride) 110 mls @ 100 mls/hr IVPB Q12H [facility] Last Admin: 11/01/17 02:23 Dose: 100 mls/hr Insulin Aspart (Novolog) 0 unit SC Q6H [facility] PRN Reason: Protocol Last Admin: 11/01/17 06:25 Dose: 3 units Insulin Detemir (Levemir) 18 unit SC Q12 [facility] Last Admin: 10/31/17 22:08 Dose: 18 u Lactulose (Enulose) 20 gm PO HS PRN PRN Reason: Constipation Last Admin: 10/29/17 21:46 Dose: 20 gm Latanoprost (Xalatan Opht) 0 ml OU HS [facility] Last Admin: 10/31/17 22:09 Dose: 2.5 ml Multivitamins (Hexavitamin) 1 tab PO DAILY [facility] Last Admin: 10/31/17 09:10 Dose: 1 tab Ondansetron HCl (Zofran Inj) 4 mg IVP Q6H PRN PRN Reason: Nausea/Vomiting Pantoprazole Sodium (Protonix Inj) 40 mg IVP Q12H [facility] Last Admin: 11/01/17 05:23 Dose: 40 mg Saccharomyces Boulardii (Florastor) 250 mg PO Q12 [facility] Last Admin: 10/31/17 22:08 Dose: 250 mg Thiamine HCl (Vitamin B1 Tab) 100 mg PO BID [facility] Last Admin: 10/31/17 17:36 Dose: 100 mg - Labs Labs: 10/31/17 07:01 10/31/17 07:01 PT 13.0 SECONDS (9.7-12.2) H 10/23/17 04:53 INR 1.2 10/23/17 04:53 APTT 24 SECONDS (21-34) 10/23/17 04:53 - Constitutional Appears: No Acute Distress - Head Exam Head Exam: NORMAL INSPECTION - Neurological Exam Neurological Exam: Awake Neuro motor strength exam: Left Upper Extremity: 3, Right Upper Extremity: 3, Left Lower Extremity: 2/1, Right Lower Extremity: 2/1 Additional comments: neurological unchanged from previous examination. Assessment and Plan (1) Mental status change Assessment & Plan: Case discussed with Dr. Nixon, continue all current medical including current AED dose, physical and occupational therapies. Recommend keeping head of bed elevated at least 40 degrees, normothermic, blood pressure and glycemic control. Status: Acute
[2017-11-01 07:30] LABS: BASO # 0.1 K/uL (0.0-0.2); BASO % 0.6 % (0.0-2.0); EOS # 0.1 K/uL (0.0-0.7); EOS % 1.6 % (0.0-4.0); LYMPH # 1.8 K/uL (1.0-4.3); LYMPH % 20.5 % (20.0-40.0); MEAN CELL VOLUME 87.1 fL (81.0-99.0); MEAN CORPUSCULAR HEMOGLOBIN 29.4 pg (27.0-31.0); MEAN CORPUSCULAR HGB CONC 33.8 g/dL (33.0-37.0); MEAN PLATELET VOLUME 7.9 fL (7.2-11.7); MONO # 0.6 K/uL (0.0-0.8); MONO % 6.6 % (0.0-10.0); NEUT # 6.2 K/uL (1.8-7.0); NEUT % 70.7 % (50.0-75.0); RBC 4.07 Mil/uL (3.80-5.20); RED CELL DISTRIBUTION WIDTH 14.9 % (11.5-14.5); WHITE BLOOD COUNT 8.7 K/uL (4.8-10.8)
[2017-11-01 07:40] LABS: ALB/GLOB RATIO 1.1 (1.0-2.1); ALBUMIN 3.4 g/dL (3.5-5.0); ALT/SGPT 19 U/L (9-52); AST/SGOT 18 U/L (14-36); BLOOD UREA NITROGEN 30 mg/dL (7-17); CALCIUM 8.9 mg/dl (8.6-10.4); GFR AFRICAN-AMERICAN > 60; GFR NON-AFRICAN AMERICAN > 60
[2017-11-01] MEDS: Insulin Detemir 100 units/ml Vial (Levemir) SC SCH ×2 (10:23→22:28)
[2017-11-01] MEDS: Multiple Vitamins Tab PO SCH (10:24)
[2017-11-01] MEDS: Saccharomyces Boulardi 250 mg Cap PO SCH ×2 (10:24→22:27)
--- NOTE | 2017-11-01 13:36 | CP.PCM.PN ---
<Stiven Leon R - Last Filed: 11/01/17 13:33> Subjective - Date & Time of Evaluation Date of Evaluation: 11/01/17 Time of Evaluation: 13:33 - Subjective Subjective: PGY-[address] Beaulieu. No acute events noted overnight. Patient's mental status unchanged from yesterday. Still able to squeeze hand and wiggle toes on command. She has trouble tracking finger. Able to move her head but slowly. Only 1 word responses. Denied pain. Objective - Vital Signs/Intake and Output Vital Signs (last 24 hours): Temp Pulse Resp BP Pulse Ox 97.9 F 94 H 20 137/88 96 11/01/17 07:15 11/01/17 08:30 11/01/17 07:15 11/01/17 07:15 11/01/17 07:15 Intake and Output: 11/01/17 11/01/17 06:59 18:59 Output Total 550 Balance -550 - Medications Medications: Current Medications Ascorbic Acid (Vitamin C 500 Mg Tab) 500 mg PO DAILY [facility] Last Admin: 11/01/17 10:24 Dose: 500 mg Cyanocobalamin (Vitamin B12 1000 Mcg Tab) 1,000 mcg PO DAILY [facility] Last Admin: 11/01/17 10:24 Dose: 1,000 mcg Dextrose (Dextrose 50% Inj) 0 ml IV STAT PRN; Protocol PRN Reason: Hypoglycemia Protocol Dextrose (Glutose 15) 0 gm PO ONCE PRN; Protocol PRN Reason: Hypoglycemia Protocol Docusate Sodium (Colace) 100 mg PO TID [facility] Last Admin: 11/01/17 13:10 Dose: 100 mg Glucagon (Glucagen Diagnostic Kit) 0 mg IM STAT PRN; Protocol PRN Reason: Hypoglycemia Protocol Valproate Sodium 1,000 mg/ (Sodium Chloride) 110 mls @ 100 mls/hr IVPB Q12H [facility] Last Admin: 11/01/17 02:23 Dose: 100 mls/hr Insulin Aspart (Novolog) 0 unit SC Q6H [facility] PRN Reason: Protocol Last Admin: 11/01/17 12:54 Dose: 4 units Insulin Detemir (Levemir) 18 unit SC Q12 [facility] Last Admin: 11/01/17 10:23 Dose: 18 unit Lactulose (Enulose) 20 gm PO HS PRN PRN Reason: Constipation Last Admin: 10/29/17 21:46 Dose: 20 gm Latanoprost (Xalatan Opht) 0 ml OU HS [facility] Last Admin: 10/31/17 22:09 Dose: 2.5 ml Multivitamins (Hexavitamin) 1 tab PO DAILY [facility] Last Admin: 11/01/17 10:24 Dose: 1 tab Ondansetron HCl (Zofran Inj) 4 mg IVP Q6H PRN PRN Reason: Nausea/Vomiting Pantoprazole Sodium (Protonix Inj) 40 mg IVP Q12H [facility] Last Admin: 11/01/17 05:23 Dose: 40 mg Saccharomyces Boulardii (Florastor) 250 mg PO Q12 [facility] Stop: 11/05/17 22:00 Last Admin: 11/01/17 10:24 Dose: 250 mg Thiamine HCl (Vitamin B1 Tab) 100 mg PO BID [facility] Last Admin: 11/01/17 10:24 Dose: 100 mg - Labs Labs: 11/01/17 07:10 11/01/17 07:10 PT 13.0 SECONDS (9.7-12.2) H 10/23/17 04:53 INR 1.2 10/23/17 04:53 APTT 24 SECONDS (21-34) 10/23/17 04:53 - Additional Findings Additional findings: - Constitutional Appears: No Acute Distress - Head Exam Head Exam: NORMAL INSPECTION, (right side dressing on), NGT in place - Eye Exam Additional comments: left sluggish, right non-reactive, extraocular muscles intact however patient was not able to track my finger - Cardiovascular Exam Cardiovascular Exam: REGULAR RHYTHM - GI/Abdominal Exam GI & Abdominal Exam: Distended (nontender/gas distension), Soft, Hypoactive Bowel Sounds - Extremities Exam Extremities Exam: able to squeeze my hand and wiggle her toes on command - Back Exam Back Exam: NORMAL INSPECTION - Neurological Exam Neurological Exam: Awake (soft voice), extraocular muscles intact however patient was not able to track my finger - Psychiatric Exam Psychiatric exam: flat affect due to aphasia rather than mood - Skin Skin Exam: Dry - Neurological Exam Neurological Exam: Awake Neuro motor strength exam: Left Upper Extremity: 3, Right Upper Extremity: 3, Left Lower Extremity: 2/1, Right Lower Extremity: 2/1 Additional comments: neurological unchanged from previous examination. Assessment and Plan - Assessment and Plan (Free Text) Assessment: Assessment: Ms. Diaz is a 66 year old female with PMHx of HTN, HLD, T2DM, and NPH with SUPPLY CHAIN ASSISTANT shunt placed in 2014, she underwent 4 SUPPLY CHAIN ASSISTANT shunt revisions 02/26/17, 3 during this admission (10/10/2017, 10/11/2017, 10/19/2017, and 10/23/17). Patient admitted to the ICU for AMS and enlarging ventricles noted on CT Scan. S/P revision on . Plan: History of hydrocephalus 2/2 to NPH ----Neurosurgery Dr Hancock/Ella is consulted ---- ID Dr. Milton consulted - Shunt placed in 2014 - SUPPLY CHAIN ASSISTANT Shunt repair 02/26/17 - s/p SUPPLY CHAIN ASSISTANT shunt revision - 3rd this hospital stay (10/10/2017, 10/11/2017, 10/19/2017 , 10/23/2017) - S/P Revision 10/23/17 - placement of left parietal pleural shunt -keep MAP ~100, ICP 10: CPP >70 -continue IV NS, osmol 305, will increase NA near 145 -keep HOB >30 Neurology consulted, Dr. Nixon - Valproate 1000mg IVPB q12h for seizure prophylaxis Labs/Diagnostics: - Teague cultures - negative to date - esr elevated 72 Imaging: - Head CT 10/23: Interval placement new left posterior superior parietal shunt tube with decrease size of the ventricles. Intraventricular air with small amount of hemorrhage layering within the dependent portion of the atria and occipital horns. Decrease size of the ventricles with improved periventricular white matter changes -transependymal edema. - Repeat Head CT 10/26: Interval decrease size of the ventricular system. Persistent small amount of hemorrhage seen layering in the dependent portion of both atria and occipital horns. Persistent but diminished amount of intraventricular air - Repeat Head Ct 10/29 (ordered due to blank stare episode on 10/29): unchanged from previous - f/u repeat head ct 11/01 (want to rule out worsening hydrocephalus as mental status is not improving) Meds: - Mannitol 25grams given x 1 - Started on vanco Q12 10/20 - discontinued 10/28 - Started Meropenem 10/20 - discontinued 10/28 - Valproate 1000mg IVPB q12h for seizure prophylaxis * therapeutic as of last valproic acid level Dysphagia 2/2 to Hydrocephalus Swallow/speech therapist on board * Continue dysphagia therapy * Continue therapeutic feeds to maintain swallow function NG Tube Feeds Hypertension - Held Amlodipine 5mg PO daily, Metoprolol Tart 12.5mg PO BID HLD - Crestor 5 mg po hs - HELD Hx Asthma Diabetes - Accuchecks - Medium Dose insulin sliding scale, Levemir dose of 18 units BID, ISS- low Prophylaxis - SCDs - Protonix Q12 - Right TLC placed 10/23/17 Code Status: Attempted to reach daughter, Maribeth, but was unable to pick. She is health care proxy. Disposition: Cleared by Neurosurgery, will arrange for discharge planning [facility] in [facility] or [place]. <David Beaulieu H - Last Filed: 11/01/17 16:17> Objective - Vital Signs/Intake and Output Vital Signs (last 24 hours): Temp Pulse Resp BP Pulse Ox 98.2 F 94 H 20 147/82 97 11/01/17 15:20 11/01/17 15:48 11/01/17 15:20 11/01/17 15:20 11/01/17 15:20 Intake and Output: 11/01/17 11/01/17 06:59 18:59 Output Total 550 Balance -550 - Medications Medications: Current Medications Ascorbic Acid (Vitamin C 500 Mg Tab) 500 mg PO DAILY [facility] Last Admin: 11/01/17 10:24 Dose: 500 mg Cyanocobalamin (Vitamin B12 1000 Mcg Tab) 1,000 mcg PO DAILY [facility] Last Admin: 11/01/17 10:24 Dose: 1,000 mcg Dextrose (Dextrose 50% Inj) 0 ml IV STAT PRN; Protocol PRN Reason: Hypoglycemia Protocol Dextrose (Glutose 15) 0 gm PO ONCE PRN; Protocol PRN Reason: Hypoglycemia Protocol Docusate Sodium (Colace) 100 mg PO TID [facility] Last Admin: 11/01/17 13:10 Dose: 100 mg Glucagon (Glucagen Diagnostic Kit) 0 mg IM STAT PRN; Protocol PRN Reason: Hypoglycemia Protocol Valproate Sodium 1,000 mg/ (Sodium Chloride) 110 mls @ 100 mls/hr IVPB Q12H [facility] Last Admin: 11/01/17 15:53 Dose: 100 mls/hr Insulin Aspart (Novolog) 0 unit SC Q6H [facility] PRN Reason: Protocol Last Admin: 11/01/17 12:54 Dose: 4 units Insulin Detemir (Levemir) 18 unit SC Q12 [facility] Last Admin: 11/01/17 10:23 Dose: 18 unit Lactulose (Enulose) 20 gm PO HS PRN PRN Reason: Constipation Last Admin: 10/29/17 21:46 Dose: 20 gm Latanoprost (Xalatan Opht) 0 ml OU HS [facility] Last Admin: 10/31/17 22:09 Dose: 2.5 ml Multivitamins (Hexavitamin) 1 tab PO DAILY [facility] Last Admin: 11/01/17 10:24 Dose: 1 tab Ondansetron HCl (Zofran Inj) 4 mg IVP Q6H PRN PRN Reason: Nausea/Vomiting Pantoprazole Sodium (Protonix Inj) 40 mg IVP Q12H [facility] Last Admin: 11/01/17 05:23 Dose: 40 mg Saccharomyces Boulardii (Florastor) 250 mg PO Q12 [facility] Stop: 11/05/17 22:00 Last Admin: 11/01/17 10:24 Dose: 250 mg Thiamine HCl (Vitamin B1 Tab) 100 mg PO BID [facility] Last Admin: 11/01/17 10:24 Dose: 100 mg - Labs Labs: 11/01/17 07:10 11/01/17 07:10 PT 13.0 SECONDS (9.7-12.2) H 10/23/17 04:53 INR 1.2 10/23/17 04:53 APTT 24 SECONDS (21-34) 10/23/17 04:53 Attending/Attestation - Attestation I have personally seen and examined this patient.: Yes I have fully participated in the care of the patient.: Yes I have reviewed all pertinent clinical information, including history, physical exam and plan: Yes Notes (Text): 11/01/17 16:17 Medical attending: Patient was seen and examined by me, agrees the above note by the medical legal investigator. I was hoping to see some improvement in her mental status today however it appears that her mental status is unchanged from before and she still able to follow very simple commands such as squeezing my hand lifting up her arms are moving her toes. That being said her affect is exceptionally slow and delayed responses whenever I ask her questions. She is able to answer yes or no to questions. The repeat head CT to see if there is any changes. She's been through quite a bit so far. Her blood work, cultures, vital signs have been stable Thank you very much, David Beaulieu
--- NOTE | 2017-11-01 13:56 | CT ---
PROCEDURE: CT HEAD WITHOUT CONTRAST. HISTORY: concern for worsening hydrocephalus; ams COMPARISON: None available. TECHNIQUE: Axial computed tomography images were obtained through the head/brain without intravenous contrast. Radiation dose: Total exam DLP = 849.55 mGy-cm. This CT exam was performed using one or more of the following dose reduction techniques: Automated exposure control, adjustment of the mA and/or kV according to patient size, and/or use of iterative reconstruction technique. FINDINGS: HEMORRHAGE: No intracranial hemorrhage. BRAIN: No mass effect or edema. Mild periventricular white matter lucency consistent with chronic microvascular ischemic change. No evidence of acute infarct. VENTRICLES: Stable mild ventriculomegaly unchanged from 10/29/2017. Left parietal shunt catheter again noted. Once again, there is a separate fragment of shunt catheter traversing the frontal horn of the right lateral ventricle. No communication demonstrated between these 2 portions of catheter. Minimal bilateral intraventricular hemorrhage again noted dependently within the occipital horn of the lateral ventricles. CALVARIUM: Right frontal and left parietal sarina holes. PARANASAL SINUSES: Chronic ethmoid, sphenoid and right maxillary sinusitis. MASTOID AIR CELLS: Unremarkable as visualized. No inflammatory changes. OTHER FINDINGS: None. IMPRESSION: Mild ventriculomegaly. Ventriculostomy catheter unchanged. See above. Small intraventricular hemorrhage, unchanged.
[2017-11-01] MEDS: Latanoprost 2.5 ml Opht Soln OU SCH (22:28)
[2017-11-02] MEDS: (Novolog) Insulin Aspart, Recombinant 100 u/ml 10 ml vial SC SCH ×4 (00:06→17:27)
[2017-11-02] MEDS: Valproate 1,000 MG in Sodium Chloride 0.9% 100 ML IVPB SCH (02:12)
--- NOTE | 2017-11-02 06:49 | CP.PCM.PN ---
Subjective - Date & Time of Evaluation Date of Evaluation: 11/02/17 Time of Evaluation: 06:49 - Subjective Subjective: Ms. Diaz was seen and examined at the bedside. She is awake, able to answer some questions but unable to verbalize place, person, and time. She is able to follow simple commands with her lower extremities weaker than the lower extremities. She has bilateral lower SCD's.She has the right parietal dressing intact, tolerating NGT feeding. Valproic level last 10/31/2017 was 63.6.There was no untoward events overnight. Objective - Vital Signs/Intake and Output Vital Signs (last 24 hours): Temp Pulse Resp BP Pulse Ox 98.2 F 94 H 20 129/76 97 11/01/17 23:19 11/01/17 23:19 11/01/17 23:19 11/01/17 23:19 11/01/17 23:19 Intake and Output: 11/01/17 11/02/17 18:59 06:59 Intake Total 660 Output Total 980 Balance -320 - Medications Medications: Current Medications Ascorbic Acid (Vitamin C 500 Mg Tab) 500 mg PO DAILY [facility] Last Admin: 11/01/17 10:24 Dose: 500 mg Cyanocobalamin (Vitamin B12 1000 Mcg Tab) 1,000 mcg PO DAILY [facility] Last Admin: 11/01/17 10:24 Dose: 1,000 mcg Dextrose (Dextrose 50% Inj) 0 ml IV STAT PRN; Protocol PRN Reason: Hypoglycemia Protocol Dextrose (Glutose 15) 0 gm PO ONCE PRN; Protocol PRN Reason: Hypoglycemia Protocol Docusate Sodium (Colace) 100 mg PO TID [facility] Last Admin: 11/01/17 18:09 Dose: 100 mg Glucagon (Glucagen Diagnostic Kit) 0 mg IM STAT PRN; Protocol PRN Reason: Hypoglycemia Protocol Valproate Sodium 1,000 mg/ (Sodium Chloride) 110 mls @ 100 mls/hr IVPB Q12H [facility] Last Admin: 11/02/17 02:12 Dose: 100 mls/hr Insulin Aspart (Novolog) 0 unit SC Q6H [facility] PRN Reason: Protocol Last Admin: 11/02/17 06:06 Dose: 4 units Insulin Detemir (Levemir) 18 unit SC Q12 [facility] Last Admin: 11/01/17 22:28 Dose: 18 unit Lactulose (Enulose) 20 gm PO HS PRN PRN Reason: Constipation Last Admin: 10/29/17 21:46 Dose: 20 gm Latanoprost (Xalatan Opht) 0 ml OU HS [facility] Last Admin: 11/01/17 22:28 Dose: 2.5 ml Multivitamins (Hexavitamin) 1 tab PO DAILY [facility] Last Admin: 11/01/17 10:24 Dose: 1 tab Ondansetron HCl (Zofran Inj) 4 mg IVP Q6H PRN PRN Reason: Nausea/Vomiting Pantoprazole Sodium (Protonix Inj) 40 mg IVP Q12H [facility] Last Admin: 11/02/17 05:18 Dose: 40 mg Saccharomyces Boulardii (Florastor) 250 mg PO Q12 [facility] Stop: 11/05/17 22:00 Last Admin: 11/01/17 22:27 Dose: 250 mg Thiamine HCl (Vitamin B1 Tab) 100 mg PO BID [facility] Last Admin: 11/01/17 18:09 Dose: 100 mg - Labs Labs: 11/01/17 07:10 11/01/17 07:10 PT 13.0 SECONDS (9.7-12.2) H 10/23/17 04:53 INR 1.2 10/23/17 04:53 APTT 24 SECONDS (21-34) 10/23/17 04:53 - Constitutional Appears: No Acute Distress - Head Exam Head Exam: NORMAL INSPECTION - Eye Exam Additional comments: left eye 4 mm brisk , right eye non reactive - Neurological Exam Neurological Exam: Awake Neuro motor strength exam: Left Upper Extremity: 4, Right Upper Extremity: 4, Left Lower Extremity: 2/1, Right Lower Extremity: 2/1 Additional comments: very sleepy this morning, but responsive to all stimuli, able to answer few questions. Assessment and Plan (1) Mental status change Assessment & Plan: Case discussed with Dr. Nixon, continue all current medical including current AED dose, physical and occupational therapies. Recommend to repeat valproic level this am, keeping head of bed elevated at least 40 degrees, normothermic, blood pressure and glycemic control. Status: Acute
[2017-11-02 07:19] LABS: BASO % 0.6 % (0.0-2.0); EOS # 0.1 K/uL (0.0-0.7); EOS % 1.8 % (0.0-4.0); HEMOGLOBIN 11.7 g/dL (11.0-16.0); LYMPH # 1.4 K/uL (1.0-4.3); LYMPH % 20.8 % (20.0-40.0); MEAN CELL VOLUME 87.9 fL (81.0-99.0); MEAN CORPUSCULAR HEMOGLOBIN 29.8 pg (27.0-31.0); MEAN CORPUSCULAR HGB CONC 33.9 g/dL (33.0-37.0); MONO # 0.4 K/uL (0.0-0.8); MONO % 6.1 % (0.0-10.0); NEUT # 4.7 K/uL (1.8-7.0); NEUT % 70.7 % (50.0-75.0); RBC 3.94 Mil/uL (3.80-5.20); RED CELL DISTRIBUTION WIDTH 14.9 % (11.5-14.5); WHITE BLOOD COUNT 6.6 K/uL (4.8-10.8)
[2017-11-02 08:00] LABS: ALB/GLOB RATIO 1.1 (1.0-2.1); ALBUMIN 3.2 g/dL (3.5-5.0); ALT/SGPT 18 U/L (9-52); AST/SGOT 19 U/L (14-36); BLOOD UREA NITROGEN 30 mg/dL (7-17); CALCIUM 8.7 mg/dl (8.6-10.4); GFR AFRICAN-AMERICAN > 60; GFR NON-AFRICAN AMERICAN > 60
--- NOTE | 2017-11-02 09:48 | CP.PCM.PN ---
Subjective - Date & Time of Evaluation Date of Evaluation: 11/02/17 Time of Evaluation: 09:45 - Subjective Subjective: sleepy but arousable is moving bilat extremities purposefully follows some commands min verbalization CT yest shows stable vent size = min ventriculomagaly,prob baseline ? something else going to mildly depress MS Objective - Vital Signs/Intake and Output Vital Signs (last 24 hours): Temp Pulse Resp BP Pulse Ox 99.1 F 84 20 118/81 100 11/02/17 08:00 11/02/17 08:00 11/02/17 08:00 11/02/17 08:00 11/02/17 08:00 Intake and Output: 11/02/17 11/02/17 06:59 18:59 Intake Total 660 Output Total 980 Balance -320 - Medications Medications: Current Medications Ascorbic Acid (Vitamin C 500 Mg Tab) 500 mg PO DAILY [facility] Last Admin: 11/01/17 10:24 Dose: 500 mg Cyanocobalamin (Vitamin B12 1000 Mcg Tab) 1,000 mcg PO DAILY [facility] Last Admin: 11/01/17 10:24 Dose: 1,000 mcg Dextrose (Dextrose 50% Inj) 0 ml IV STAT PRN; Protocol PRN Reason: Hypoglycemia Protocol Dextrose (Glutose 15) 0 gm PO ONCE PRN; Protocol PRN Reason: Hypoglycemia Protocol Docusate Sodium (Colace) 100 mg PO TID [facility] Last Admin: 11/01/17 18:09 Dose: 100 mg Glucagon (Glucagen Diagnostic Kit) 0 mg IM STAT PRN; Protocol PRN Reason: Hypoglycemia Protocol Valproate Sodium 1,000 mg/ (Sodium Chloride) 110 mls @ 100 mls/hr IVPB Q12H [facility] Last Admin: 11/02/17 02:12 Dose: 100 mls/hr Insulin Aspart (Novolog) 0 unit SC Q6H [facility] PRN Reason: Protocol Last Admin: 11/02/17 06:06 Dose: 4 units Insulin Detemir (Levemir) 18 unit SC Q12 [facility] Last Admin: 11/01/17 22:28 Dose: 18 unit Lactulose (Enulose) 20 gm PO HS PRN PRN Reason: Constipation Last Admin: 10/29/17 21:46 Dose: 20 gm Latanoprost (Xalatan Opht) 0 ml OU HS [facility] Last Admin: 11/01/17 22:28 Dose: 2.5 ml Multivitamins (Hexavitamin) 1 tab PO DAILY [facility] Last Admin: 11/01/17 10:24 Dose: 1 tab Ondansetron HCl (Zofran Inj) 4 mg IVP Q6H PRN PRN Reason: Nausea/Vomiting Pantoprazole Sodium (Protonix Inj) 40 mg IVP Q12H [facility] Last Admin: 11/02/17 05:18 Dose: 40 mg Saccharomyces Boulardii (Florastor) 250 mg PO Q12 [facility] Stop: 11/05/17 22:00 Last Admin: 11/01/17 22:27 Dose: 250 mg Thiamine HCl (Vitamin B1 Tab) 100 mg PO BID [facility] Last Admin: 11/01/17 18:09 Dose: 100 mg - Labs Labs: 11/02/17 07:10 11/02/17 07:10 PT 13.0 SECONDS (9.7-12.2) H 10/23/17 04:53 INR 1.2 10/23/17 04:53 APTT 24 SECONDS (21-34) 10/23/17 04:53
[2017-11-02] MEDS: Multiple Vitamins Tab PO SCH (10:13)
[2017-11-02] MEDS: Saccharomyces Boulardi 250 mg Cap PO SCH ×2 (10:13→21:27)
[2017-11-02] MEDS: Insulin Detemir 100 units/ml Vial (Levemir) SC SCH ×2 (10:13→21:27)
--- NOTE | 2017-11-02 13:30 | CP.PCM.PN ---
<CarolynStiven R - Last Filed: 11/02/17 13:26> Subjective - Date & Time of Evaluation Date of Evaluation: 11/02/17 Time of Evaluation: 13:26 - Subjective Subjective: PGY-[address] Beaulieu. No acute events noted overnight. Patient's mental status unchanged from yesterday. Still able to squeeze hand and wiggle toes on command. She has trouble tracking finger. Able to move her head but slowly. Only 1 word responses. Denied pain. Sleepy but arousable -> will reduce her dose of depacon today from 1000mg to 500mg bid (confirmed with Dr Nixon). Objective - Vital Signs/Intake and Output Vital Signs (last 24 hours): Temp Pulse Resp BP Pulse Ox 99.1 F 84 20 118/81 100 11/02/17 08:00 11/02/17 08:00 11/02/17 08:00 11/02/17 08:00 11/02/17 08:00 Intake and Output: 11/02/17 11/02/17 06:59 18:59 Intake Total 660 Output Total 980 Balance -320 - Medications Medications: Current Medications Ascorbic Acid (Vitamin C 500 Mg Tab) 500 mg PO DAILY [facility] Last Admin: 11/02/17 10:13 Dose: 500 mg Cyanocobalamin (Vitamin B12 1000 Mcg Tab) 1,000 mcg PO DAILY [facility] Last Admin: 11/02/17 10:12 Dose: 1,000 mcg Dextrose (Dextrose 50% Inj) 0 ml IV STAT PRN; Protocol PRN Reason: Hypoglycemia Protocol Dextrose (Glutose 15) 0 gm PO ONCE PRN; Protocol PRN Reason: Hypoglycemia Protocol Docusate Sodium (Colace) 100 mg PO TID [facility] Last Admin: 11/02/17 13:13 Dose: 100 mg Glucagon (Glucagen Diagnostic Kit) 0 mg IM STAT PRN; Protocol PRN Reason: Hypoglycemia Protocol Valproate Sodium 500 mg/ (Sodium Chloride) 105 mls @ 100 mls/hr IVPB Q12H [facility] Insulin Aspart (Novolog) 0 unit SC Q6H [facility] PRN Reason: Protocol Last Admin: 11/02/17 12:26 Dose: 3 units Insulin Detemir (Levemir) 18 unit SC Q12 [facility] Last Admin: 11/02/17 10:13 Dose: 18 unit Lactulose (Enulose) 20 gm PO HS PRN PRN Reason: Constipation Last Admin: 10/29/17 21:46 Dose: 20 gm Latanoprost (Xalatan Opht) 0 ml OU HS [facility] Last Admin: 11/01/17 22:28 Dose: 2.5 ml Multivitamins (Hexavitamin) 1 tab PO DAILY [facility] Last Admin: 11/02/17 10:13 Dose: 1 tab Ondansetron HCl (Zofran Inj) 4 mg IVP Q6H PRN PRN Reason: Nausea/Vomiting Pantoprazole Sodium (Protonix Inj) 40 mg IVP Q12H [facility] Last Admin: 11/02/17 05:18 Dose: 40 mg Saccharomyces Boulardii (Florastor) 250 mg PO Q12 [facility] Stop: 11/05/17 22:00 Last Admin: 11/02/17 10:13 Dose: 250 mg Thiamine HCl (Vitamin B1 Tab) 100 mg PO BID [facility] Last Admin: 11/02/17 10:12 Dose: 100 mg - Labs Labs: 11/02/17 07:10 11/02/17 07:10 PT 13.0 SECONDS (9.7-12.2) H 10/23/17 04:53 INR 1.2 10/23/17 04:53 APTT 24 SECONDS (21-34) 10/23/17 04:53 - Additional Findings Additional findings: - Constitutional Appears: No Acute Distress - Head Exam Head Exam: NORMAL INSPECTION, (right side dressing on), NGT in place - Eye Exam Additional comments: left sluggish, right non-reactive, extraocular muscles intact however patient was not able to track my finger - Cardiovascular Exam Cardiovascular Exam: REGULAR RHYTHM - GI/Abdominal Exam GI & Abdominal Exam: Distended (nontender/gas distension), Soft, Hypoactive Bowel Sounds - Extremities Exam Extremities Exam: able to squeeze my hand and wiggle her toes on command - Back Exam Back Exam: NORMAL INSPECTION - Neurological Exam Neurological Exam: Awake (soft voice), extraocular muscles intact however patient was not able to track my finger - Psychiatric Exam Psychiatric exam: flat affect due to aphasia rather than mood - Skin Skin Exam: Dry - Neurological Exam Neurological Exam: Awake Neuro motor strength exam: Left Upper Extremity: 3, Right Upper Extremity: 3, Left Lower Extremity: 2/1, Right Lower Extremity: 2/1 Additional comments: neurological unchanged from previous examination. Assessment and Plan - Assessment and Plan (Free Text) Assessment: Assessment: Ms. Diaz is a 66 year old female with PMHx of HTN, HLD, T2DM, and NPH with ELECTRONIC COILS SUPERVISOR shunt placed in 2014, she underwent 4 ELECTRONIC COILS SUPERVISOR shunt revisions 02/26/17, 3 during this admission (10/10/2017, 10/11/2017, 10/19/2017, and 10/23/17). Patient admitted to the ICU for AMS and enlarging ventricles noted on CT Scan. S/P revision on . Plan: History of hydrocephalus 2/2 to NPH ----Neurosurgery Dr Hancock/Ella is consulted ---- ID Dr. Milton consulted - Shunt placed in 2014 - ELECTRONIC COILS SUPERVISOR Shunt repair 02/26/17 - s/p ELECTRONIC COILS SUPERVISOR shunt revision - 3rd this hospital stay (10/10/2017, 10/11/2017, 10/19/2017 , 10/23/2017) - S/P Revision 10/23/17 - placement of left parietal pleural shunt -keep MAP ~100, ICP 10: CPP >70 -continue IV NS, osmol 305, will increase NA near 145 -keep HOB >30 Neurology consulted, Dr. Nixon - Valproate 500mg IVP Q12H (decreased dose from 1000mg on 11/02 to see if this improves mental status) Labs/Diagnostics: - Teague cultures - negative to date - esr elevated 72 Imaging: - Head CT 10/23: Interval placement new left posterior superior parietal shunt tube with decrease size of the ventricles. Intraventricular air with small amount of hemorrhage layering within the dependent portion of the atria and occipital horns. Decrease size of the ventricles with improved periventricular white matter changes -transependymal edema. - Repeat Head CT 10/26: Interval decrease size of the ventricular system. Persistent small amount of hemorrhage seen layering in the dependent portion of both atria and occipital horns. Persistent but diminished amount of intraventricular air - Repeat Head Ct 10/29 (ordered due to blank stare episode on 10/29): unchanged from previous - Repeat head ct 11/01 (ordered due to lack of improvement in mental status): unchanged from previous Meds: - Mannitol 25grams given x 1 - Started on vanco Q12 10/20 - discontinued 10/28 - Started Meropenem 10/20 - discontinued 10/28 - Valproate 500mg IVP Q12H (decreased dose from 1000mg on 11/02 to see if this improves mental status) Dysphagia 2/2 to Hydrocephalus Swallow/speech therapist on board * Continue dysphagia therapy * Continue therapeutic feeds to maintain swallow function NG Tube Feeds Hypertension - Held Amlodipine 5mg PO daily, Metoprolol Tart 12.5mg PO BID HLD - Crestor 5 mg po hs - HELD Hx Asthma Diabetes - Accuchecks - Medium Dose insulin sliding scale, Levemir dose of 18 units BID, ISS- low Prophylaxis - SCDs - Protonix Q12 - Right TLC placed 10/23/17 Code Status: Attempted to reach daughter, Maribeth, but was unable to pick. She is health care proxy. Disposition: Cleared by Neurosurgery, will arrange for discharge planning LTAC in [facility] or [place]. <David Beaulieu - Last Filed: 11/02/17 14:06> Objective - Vital Signs/Intake and Output Vital Signs (last 24 hours): Temp Pulse Resp BP Pulse Ox 99.1 F 84 20 118/81 100 11/02/17 08:00 11/02/17 08:00 11/02/17 08:00 11/02/17 08:00 11/02/17 08:00 Intake and Output: 11/02/17 11/02/17 06:59 18:59 Intake Total 660 Output Total 980 Balance -320 - Medications Medications: Current Medications Ascorbic Acid (Vitamin C 500 Mg Tab) 500 mg PO DAILY [facility] Last Admin: 11/02/17 10:13 Dose: 500 mg Cyanocobalamin (Vitamin B12 1000 Mcg Tab) 1,000 mcg PO DAILY [facility] Last Admin: 11/02/17 10:12 Dose: 1,000 mcg Dextrose (Dextrose 50% Inj) 0 ml IV STAT PRN; Protocol PRN Reason: Hypoglycemia Protocol Dextrose (Glutose 15) 0 gm PO ONCE PRN; Protocol PRN Reason: Hypoglycemia Protocol Glucagon (Glucagen Diagnostic Kit) 0 mg IM STAT PRN; Protocol PRN Reason: Hypoglycemia Protocol Valproate Sodium 500 mg/ (Sodium Chloride) 105 mls @ 100 mls/hr IVPB Q12H [facility] Insulin Aspart (Novolog) 0 unit SC Q6H [facility] PRN Reason: Protocol Last Admin: 11/02/17 12:26 Dose: 3 units Insulin Detemir (Levemir) 18 unit SC Q12 [facility] Last Admin: 11/02/17 10:13 Dose: 18 unit Latanoprost (Xalatan Opht) 0 ml OU HS [facility] Last Admin: 11/01/17 22:28 Dose: 2.5 ml Multivitamins (Hexavitamin) 1 tab PO DAILY [facility] Last Admin: 11/02/17 10:13 Dose: 1 tab Ondansetron HCl (Zofran Inj) 4 mg IVP Q6H PRN PRN Reason: Nausea/Vomiting Pantoprazole Sodium (Protonix Inj) 40 mg IVP Q12H [facility] Last Admin: 11/02/17 05:18 Dose: 40 mg Saccharomyces Boulardii (Florastor) 250 mg PO Q12 [facility] Stop: 11/05/17 22:00 Last Admin: 11/02/17 10:13 Dose: 250 mg Thiamine HCl (Vitamin B1 Tab) 100 mg PO BID [facility] Last Admin: 11/02/17 10:12 Dose: 100 mg - Labs Labs: 11/02/17 07:10 11/02/17 07:10 PT 13.0 SECONDS (9.7-12.2) H 10/23/17 04:53 INR 1.2 10/23/17 04:53 APTT 24 SECONDS (21-34) 10/23/17 04:53 Attending/Attestation - Attestation I have personally seen and examined this patient.: Yes I have fully participated in the care of the patient.: Yes I have reviewed all pertinent clinical information, including history, physical exam and plan: Yes Notes (Text): 11/02/17 14:06 Medical attending: Patient was seen and examined by me, agrees the above note by the medical delivery driver. We will try to see if decreasing the dose of the Depakote will have any effect on her mental status. Hopefully decreasing the dose will will see an effect. The repeat CT scans of the brain showed the ventricle sizes are stable at this time. Thank you very much, David Beaulieu
[2017-11-02] MEDS: Valproate 500 MG in Sodium Chloride 0.9% 100 ML IVPB SCH (14:18)
[2017-11-02] MEDS: Latanoprost 2.5 ml Opht Soln OU SCH (21:27)
[2017-11-03] MEDS: (Novolog) Insulin Aspart, Recombinant 100 u/ml 10 ml vial SC SCH ×4 (00:29→20:30)
[2017-11-03] MEDS: Valproate 500 MG in Sodium Chloride 0.9% 100 ML IVPB SCH (01:14)
[2017-11-03] MEDS ORDERED: Valproate 500 MG in Sodium Chloride 0.9% 100 ML IVPB ONE (02:00)
[2017-11-03 06:43] LABS: BASO % 0.6 % (0.0-2.0); EOS # 0.1 K/uL (0.0-0.7); EOS % 2.2 % (0.0-4.0); HEMOGLOBIN 11.1 g/dL (11.0-16.0); LYMPH # 1.4 K/uL (1.0-4.3); LYMPH % 21.1 % (20.0-40.0); MEAN CELL VOLUME 86.7 fL (81.0-99.0); MEAN CORPUSCULAR HEMOGLOBIN 29.5 pg (27.0-31.0); MEAN CORPUSCULAR HGB CONC 34.1 g/dL (33.0-37.0); MEAN PLATELET VOLUME 8.1 fL (7.2-11.7); MONO # 0.5 K/uL (0.0-0.8); MONO % 7.1 % (0.0-10.0); NEUT # 4.5 K/uL (1.8-7.0); RBC 3.76 Mil/uL (3.80-5.20); RED CELL DISTRIBUTION WIDTH 14.7 % (11.5-14.5); WHITE BLOOD COUNT 6.5 K/uL (4.8-10.8)
[2017-11-03 07:00] LABS: ALT/SGPT 22 U/L (9-52); AST/SGOT 17 U/L (14-36); BLOOD UREA NITROGEN 28 mg/dL (7-17); CALCIUM 8.5 mg/dl (8.6-10.4); GFR AFRICAN-AMERICAN > 60; GFR NON-AFRICAN AMERICAN > 60
--- NOTE | 2017-11-03 07:00 | CP.PCM.PN ---
Subjective - Date & Time of Evaluation Date of Evaluation: 11/03/17 Time of Evaluation: 07:00 - Subjective Subjective: Ms. Diaz was seen and examined at the bedside. She is awake, able to answer some questions but unable to verbalize place, person, and time. She is more verbal this am. She is able to follow simple commands with her lower extremities weaker than the lower extremities., and able to used the towel to wipe her sherwin. eyes. She has bilateral lower SCD's.She has the right parietal dressing intact, tolerating NGT feeding. Valproic level last 11/02/2017 was 83.1.There was no untoward events overnight. Objective - Vital Signs/Intake and Output Vital Signs (last 24 hours): Temp Pulse Resp BP Pulse Ox 98.7 F 91 H 20 111/69 97 11/02/17 23:20 11/03/17 04:00 11/02/17 23:20 11/02/17 23:20 11/02/17 23:20 Intake and Output: 11/03/17 11/03/17 06:59 18:59 Intake Total 350 Output Total 150 Balance 200 - Medications Medications: Current Medications Ascorbic Acid (Vitamin C 500 Mg Tab) 500 mg PO DAILY [facility] Last Admin: 11/02/17 10:13 Dose: 500 mg Cyanocobalamin (Vitamin B12 1000 Mcg Tab) 1,000 mcg PO DAILY [facility] Last Admin: 11/02/17 10:12 Dose: 1,000 mcg Dextrose (Dextrose 50% Inj) 0 ml IV STAT PRN; Protocol PRN Reason: Hypoglycemia Protocol Dextrose (Glutose 15) 0 gm PO ONCE PRN; Protocol PRN Reason: Hypoglycemia Protocol Glucagon (Glucagen Diagnostic Kit) 0 mg IM STAT PRN; Protocol PRN Reason: Hypoglycemia Protocol Valproate Sodium 500 mg/ (Sodium Chloride) 105 mls @ 100 mls/hr IVPB Q12H [facility] Last Admin: 11/03/17 01:14 Dose: 100 mls/hr Insulin Aspart (Novolog) 0 unit SC Q6H [facility] PRN Reason: Protocol Last Admin: 11/03/17 00:29 Dose: Not Given Insulin Detemir (Levemir) 18 unit SC Q12 [facility] Last Admin: 11/02/17 21:27 Dose: 18 unit Latanoprost (Xalatan Opht) 0 ml OU HS [facility] Last Admin: 11/02/17 21:27 Dose: 2.5 ml Multivitamins (Hexavitamin) 1 tab PO DAILY [facility] Last Admin: 11/02/17 10:13 Dose: 1 tab Ondansetron HCl (Zofran Inj) 4 mg IVP Q6H PRN PRN Reason: Nausea/Vomiting Pantoprazole Sodium (Protonix Inj) 40 mg IVP Q12H [facility] Last Admin: 11/03/17 05:37 Dose: 40 mg Saccharomyces Boulardii (Florastor) 250 mg PO Q12 [facility] Stop: 11/05/17 22:00 Last Admin: 11/02/17 21:27 Dose: 250 mg Thiamine HCl (Vitamin B1 Tab) 100 mg PO BID [facility] Last Admin: 11/02/17 17:07 Dose: 100 mg - Labs Labs: 11/03/17 06:34 11/02/17 07:10 PT 13.0 SECONDS (9.7-12.2) H 10/23/17 04:53 INR 1.2 10/23/17 04:53 APTT 24 SECONDS (21-34) 10/23/17 04:53 - Constitutional Appears: No Acute Distress - Head Exam Head Exam: NORMAL INSPECTION - Eye Exam Pupil Exam: PERRL Additional comments: right eye 3 mm sluggish and left eye 3 mm brisk. - Neurological Exam Neurological Exam: Awake Neuro motor strength exam: Left Upper Extremity: 3, Right Upper Extremity: 3, Left Lower Extremity: 2/1, Right Lower Extremity: 2/1 Additional comments: more awake this am, follows commands and able to wipe her face with a towel, sensation is intact. Assessment and Plan (1) Mental status change Assessment & Plan: Case discussed with Dr. Nixon, continue all current medical including current new AED dose, physical and occupational therapies. Recommend keeping head of bed elevated at least 40 degrees, monitor neuro status, normothermic, blood pressure and glycemic control. Status: Acute
--- NOTE | 2017-11-03 07:21 | CP.PCM.PN ---
<Stiven Leon - Last Filed: 11/03/17 11:17> Subjective - Date & Time of Evaluation Date of Evaluation: 11/03/17 Time of Evaluation: 07:19 - Subjective Subjective: PGY-[address] Beaulieu. No acute events noted overnight. Patient slightly more verbal this AM after of depacon dose. Still very sluggish overall, still cannot track my finger. Objective - Vital Signs/Intake and Output Vital Signs (last 24 hours): Temp Pulse Resp BP Pulse Ox 98.7 F 91 H 20 111/69 97 11/02/17 23:20 11/03/17 04:00 11/02/17 23:20 11/02/17 23:20 11/02/17 23:20 Intake and Output: 11/03/17 11/03/17 06:59 18:59 Intake Total 350 Output Total 150 Balance 200 - Medications Medications: Current Medications Ascorbic Acid (Vitamin C 500 Mg Tab) 500 mg PO DAILY [facility] Last Admin: 11/02/17 10:13 Dose: 500 mg Cyanocobalamin (Vitamin B12 1000 Mcg Tab) 1,000 mcg PO DAILY [facility] Last Admin: 11/02/17 10:12 Dose: 1,000 mcg Dextrose (Dextrose 50% Inj) 0 ml IV STAT PRN; Protocol PRN Reason: Hypoglycemia Protocol Dextrose (Glutose 15) 0 gm PO ONCE PRN; Protocol PRN Reason: Hypoglycemia Protocol Glucagon (Glucagen Diagnostic Kit) 0 mg IM STAT PRN; Protocol PRN Reason: Hypoglycemia Protocol Valproate Sodium 500 mg/ (Sodium Chloride) 105 mls @ 100 mls/hr IVPB Q12H [facility] Last Admin: 11/03/17 01:14 Dose: 100 mls/hr Insulin Aspart (Novolog) 0 unit SC Q6H [facility] PRN Reason: Protocol Last Admin: 11/03/17 00:29 Dose: Not Given Insulin Detemir (Levemir) 18 unit SC Q12 [facility] Last Admin: 11/02/17 21:27 Dose: 18 unit Latanoprost (Xalatan Opht) 0 ml OU HS [facility] Last Admin: 11/02/17 21:27 Dose: 2.5 ml Multivitamins (Hexavitamin) 1 tab PO DAILY [facility] Last Admin: 11/02/17 10:13 Dose: 1 tab Ondansetron HCl (Zofran Inj) 4 mg IVP Q6H PRN PRN Reason: Nausea/Vomiting Pantoprazole Sodium (Protonix Inj) 40 mg IVP Q12H [facility] Last Admin: 11/03/17 05:37 Dose: 40 mg Saccharomyces Boulardii (Florastor) 250 mg PO Q12 [facility] Stop: 11/05/17 22:00 Last Admin: 11/02/17 21:27 Dose: 250 mg Thiamine HCl (Vitamin B1 Tab) 100 mg PO BID [facility] Last Admin: 11/02/17 17:07 Dose: 100 mg - Labs Labs: 11/03/17 06:34 11/03/17 06:34 PT 13.0 SECONDS (9.7-12.2) H 10/23/17 04:53 INR 1.2 10/23/17 04:53 APTT 24 SECONDS (21-34) 10/23/17 04:53 - Additional Findings Additional findings: - Constitutional Appears: No Acute Distress - Head Exam Head Exam: NORMAL INSPECTION, (right side dressing on), NGT in place - Eye Exam Additional comments: right eye 3 mm sluggish and left eye 3 mm brisk, extraocular muscles intact however patient was not able to track my finger - Cardiovascular Exam Cardiovascular Exam: REGULAR RHYTHM - GI/Abdominal Exam GI & Abdominal Exam: Distended (nontender/gas distension), Soft, Hypoactive Bowel Sounds - Extremities Exam Extremities Exam: able to squeeze my hand and wiggle her toes on command - Back Exam Back Exam: NORMAL INSPECTION - Neurological Exam Neurological Exam: Awake (soft voice), extraocular muscles intact however patient was not able to track my finger - Psychiatric Exam Psychiatric exam: flat affect due to aphasia rather than mood - Skin Skin Exam: Dry - Neurological Exam Neurological Exam: Awake Neuro motor strength exam: Left Upper Extremity: 3, Right Upper Extremity: 3, Left Lower Extremity: 2/1, Right Lower Extremity: 2/1 Additional comments: slightly more verbal today after decreased depacon dose Assessment and Plan - Assessment and Plan (Free Text) Assessment: Assessment: Ms. 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 Patient admitted to the ICU for AMS and enlarging ventricles noted on CT Scan. S/P revision on . Plan: History of hydrocephalus 2/2 to NPH ----Neurosurgery Dr Hancock/Ella is consulted ---- ID Dr. Milton consulted - Shunt placed in 2014 - TELEVISION MAINTENANCE WORKER Shunt repair 02/26/17 - s/p TELEVISION MAINTENANCE WORKER shunt revision - 3rd this hospital stay (10/10/2017, 10/11/2017, 10/19/2017 , 10/23/2017) - S/P Revision 10/23/17 - placement of left parietal pleural shunt -keep MAP ~100, ICP 10: CPP >70 -continue IV NS, osmol 305, will increase NA near 145 -keep HOB >30 Neurology consulted, Dr. Nixon - Valproate 500mg IVP Q12H - decreased dose from 1000mg on 11/02 to see if this improves mental status - HOLDING since 11/03 Labs/Diagnostics: - Teague cultures - negative to date - esr elevated 72 Imaging: - Head CT 10/23: Interval placement new left posterior superior parietal shunt tube with decrease size of the ventricles. Intraventricular air with small amount of hemorrhage layering within the dependent portion of the atria and occipital horns. Decrease size of the ventricles with improved periventricular white matter changes -transependymal edema. - Repeat Head CT 10/26: Interval decrease size of the ventricular system. Persistent small amount of hemorrhage seen layering in the dependent portion of both atria and occipital horns. Persistent but diminished amount of intraventricular air - Repeat Head Ct 10/29 (ordered due to blank stare episode on 10/29): unchanged from previous - Repeat head ct 11/01 (ordered due to lack of improvement in mental status): unchanged from previous Meds: - Mannitol 25grams given x 1 - Started on vanco Q12 10/20 - discontinued 10/28 - Started Meropenem 10/20 - discontinued 10/28 - Valproate 500mg IVP Q12H - decreased dose from 1000mg on 11/02 to see if this improves mental status - HOLDING since 11/03 Dysphagia 2/2 to Hydrocephalus Swallow/speech therapist on board * Continue dysphagia therapy * Continue therapeutic feeds to maintain swallow function NG Tube Feeds Hypertension - Held Amlodipine 5mg PO daily, Metoprolol Tart 12.5mg PO BID HLD - Crestor 5 mg po hs - HELD Hx Asthma Diabetes - Accuchecks - Medium Dose insulin sliding scale, Levemir dose of 18 units BID, ISS- low Prophylaxis - SCDs - Protonix Q12 - Right TLC placed 10/23/17 Code Status: Attempted to reach daughter, Maribeth, but was unable to pick. She is health care proxy. Disposition: Cleared by Neurosurgery, will arrange for discharge planning LTAC in [facility] or [place]. <David Beaulieu H - Last Filed: 11/03/17 15:34> Objective - Vital Signs/Intake and Output Vital Signs (last 24 hours): Temp Pulse Resp BP Pulse Ox 99.0 F 98 H 20 137/84 96 11/03/17 07:00 11/03/17 11:03 11/03/17 07:00 11/03/17 11:03 11/03/17 07:00 Intake and Output: 11/03/17 11/03/17 06:59 18:59 Intake Total 350 Output Total 150 Balance 200 - Medications Medications: Current Medications Ascorbic Acid (Vitamin C 500 Mg Tab) 500 mg GT DAILY [facility] Last Admin: 11/03/17 10:40 Dose: 500 mg Cyanocobalamin (Vitamin B12 1000 Mcg Tab) 1,000 mcg GT DAILY [facility] Last Admin: 11/03/17 10:40 Dose: 1,000 mcg Dextrose (Dextrose 50% Inj) 0 ml IV STAT PRN; Protocol PRN Reason: Hypoglycemia Protocol Dextrose (Glutose 15) 0 gm GT ONCE PRN; Protocol PRN Reason: Hypoglycemia Protocol Glucagon (Glucagen Diagnostic Kit) 0 mg IM STAT PRN; Protocol PRN Reason: Hypoglycemia Protocol Valproate Sodium 500 mg/ (Sodium Chloride) 105 mls @ 100 mls/hr IVPB Q12H [facility] Last Admin: 11/03/17 01:14 Dose: 100 mls/hr Insulin Aspart (Novolog) 0 unit SC Q6H [facility] PRN Reason: Protocol Last Admin: 11/03/17 12:32 Dose: 4 units Insulin Detemir (Levemir) 18 unit SC Q12 [facility] Last Admin: 11/03/17 10:38 Dose: 18 unit Latanoprost (Xalatan Opht) 0 ml OU HS [facility] Last Admin: 11/02/17 21:27 Dose: 2.5 ml Multivitamins (Hexavitamin) 1 tab GT DAILY [facility] Last Admin: 11/03/17 10:40 Dose: 1 tab Ondansetron HCl (Zofran Inj) 4 mg IVP Q6H PRN PRN Reason: Nausea/Vomiting Pantoprazole Sodium (Protonix Inj) 40 mg IVP DAILY [facility] Last Admin: 11/03/17 10:40 Dose: 40 mg Saccharomyces Boulardii (Florastor) 250 mg GT Q12 [facility] Stop: 11/05/17 22:00 Last Admin: 11/03/17 10:40 Dose: 250 mg Thiamine HCl (Vitamin B1 Tab) 100 mg GT BID [facility] Last Admin: 11/03/17 10:40 Dose: 100 mg - Labs Labs: 11/03/17 06:34 11/03/17 06:34 PT 13.0 SECONDS (9.7-12.2) H 10/23/17 04:53 INR 1.2 10/23/17 04:53 APTT 24 SECONDS (21-34) 10/23/17 04:53 Attending/Attestation - Attestation I have personally seen and examined this patient.: Yes I have fully participated in the care of the patient.: Yes I have reviewed all pertinent clinical information, including history, physical exam and plan: Yes Notes (Text): 11/03/17 15:34 Medical attending: Patient was seen and examined by me, agrees the above note by medical sales representative. Yesterday we decreased the dose of Depakote that the patient was receiving, or try to see if possibly the patient has been somewhat overly medicated with the Depakote and therefore was to very sluggish and slow mental status that we've been observing. This morning she was able to answer questions as well as follow very basic commands. She still was able to squeeze my hand bilaterally she could still stick her tongue out me on command and she could still move her toes. She is able to answer yes or no to very simple questions As mentioned previously we are holding the Depakote at this moment and were to see how she does The recent CT scans that have been repeated are unchanged from before, the ventricle sizes have been stable Thank you very much, David Beaulieu
[2017-11-03] MEDS: Insulin Detemir 100 units/ml Vial (Levemir) SC SCH ×2 (10:38→23:07)
[2017-11-03] MEDS: Saccharomyces Boulardi 250 mg Cap GT SCH ×2 (10:40→23:09)
[2017-11-03] MEDS: Multiple Vitamins Tab GT SCH (10:40)
--- NOTE | 2017-11-03 13:31 | CP.PCM.PN ---
Subjective - Date & Time of Evaluation Date of Evaluation: 11/03/17 Time of Evaluation: 13:28 - Subjective Subjective: more alert today tells me her namr follows commands leo clayton removed from [facility] will leave clayton from [facility] in few more days adjusted valve setting down one level d/w sister and daughter Objective - Vital Signs/Intake and Output Vital Signs (last 24 hours): Temp Pulse Resp BP Pulse Ox 99.0 F 96 H 20 160/99 H 96 11/03/17 07:00 11/03/17 07:21 11/03/17 07:00 11/03/17 07:00 11/03/17 07:00 Intake and Output: 11/03/17 11/03/17 06:59 18:59 Intake Total 350 Output Total 150 Balance 200 - Medications Medications: Current Medications Ascorbic Acid (Vitamin C 500 Mg Tab) 500 mg GT DAILY [facility] Last Admin: 11/03/17 10:40 Dose: 500 mg Cyanocobalamin (Vitamin B12 1000 Mcg Tab) 1,000 mcg GT DAILY [facility] Last Admin: 11/03/17 10:40 Dose: 1,000 mcg Dextrose (Dextrose 50% Inj) 0 ml IV STAT PRN; Protocol PRN Reason: Hypoglycemia Protocol Dextrose (Glutose 15) 0 gm GT ONCE PRN; Protocol PRN Reason: Hypoglycemia Protocol Glucagon (Glucagen Diagnostic Kit) 0 mg IM STAT PRN; Protocol PRN Reason: Hypoglycemia Protocol Valproate Sodium 500 mg/ (Sodium Chloride) 105 mls @ 100 mls/hr IVPB Q12H [facility] Last Admin: 11/03/17 01:14 Dose: 100 mls/hr Insulin Aspart (Novolog) 0 unit SC Q6H [facility] PRN Reason: Protocol Last Admin: 11/03/17 12:32 Dose: 4 units Insulin Detemir (Levemir) 18 unit SC Q12 [facility] Last Admin: 11/03/17 10:38 Dose: 18 unit Latanoprost (Xalatan Opht) 0 ml OU HS [facility] Last Admin: 11/02/17 21:27 Dose: 2.5 ml Multivitamins (Hexavitamin) 1 tab GT DAILY [facility] Last Admin: 11/03/17 10:40 Dose: 1 tab Ondansetron HCl (Zofran Inj) 4 mg IVP Q6H PRN PRN Reason: Nausea/Vomiting Pantoprazole Sodium (Protonix Inj) 40 mg IVP DAILY [facility] Last Admin: 11/03/17 10:40 Dose: 40 mg Saccharomyces Boulardii (Florastor) 250 mg GT Q12 [facility] Stop: 11/05/17 22:00 Last Admin: 11/03/17 10:40 Dose: 250 mg Thiamine HCl (Vitamin B1 Tab) 100 mg GT BID [facility] Last Admin: 11/03/17 10:40 Dose: 100 mg - Labs Labs: 11/03/17 06:34 11/03/17 06:34 PT 13.0 SECONDS (9.7-12.2) H 10/23/17 04:53 INR 1.2 10/23/17 04:53 APTT 24 SECONDS (21-34) 10/23/17 04:53
[2017-11-03] MEDS: Latanoprost 2.5 ml Opht Soln OU SCH (23:09)
[2017-11-04] MEDS: (Novolog) Insulin Aspart, Recombinant 100 u/ml 10 ml vial SC SCH ×4 (00:53→19:00)
--- NOTE | 2017-11-04 05:46 | CP.PCM.PN ---
<Yee Arana E - Last Filed: 11/04/17 05:43> Subjective - Date & Time of Evaluation Date of Evaluation: 11/04/17 Time of Evaluation: 01:20 - Subjective Subjective: Medicine progress note ( Dr. Beaulieu's service) Patient was seen and examined at bedside. Patient did not respond verbally; still very sluggish and unable to track my finger or object. Objective - Vital Signs/Intake and Output Vital Signs (last 24 hours): Temp Pulse Resp BP Pulse Ox 98.7 F 97 H 20 137/93 H 97 11/03/17 23:15 11/04/17 01:00 11/03/17 23:15 11/04/17 04:05 11/03/17 23:15 Intake and Output: 11/03/17 11/04/17 18:59 06:59 Intake Total 390 Balance 390 - Medications Medications: Current Medications Ascorbic Acid (Vitamin C 500 Mg Tab) 500 mg GT DAILY [facility] Last Admin: 11/03/17 10:40 Dose: 500 mg Cyanocobalamin (Vitamin B12 1000 Mcg Tab) 1,000 mcg GT DAILY [facility] Last Admin: 11/03/17 10:40 Dose: 1,000 mcg Dextrose (Dextrose 50% Inj) 0 ml IV STAT PRN; Protocol PRN Reason: Hypoglycemia Protocol Dextrose (Glutose 15) 0 gm GT ONCE PRN; Protocol PRN Reason: Hypoglycemia Protocol Glucagon (Glucagen Diagnostic Kit) 0 mg IM STAT PRN; Protocol PRN Reason: Hypoglycemia Protocol Valproate Sodium 500 mg/ (Sodium Chloride) 105 mls @ 100 mls/hr IVPB Q12H [facility] Last Admin: 11/03/17 01:14 Dose: 100 mls/hr Insulin Aspart (Novolog) 0 unit SC Q6H [facility] PRN Reason: Protocol Last Admin: 11/04/17 00:53 Dose: Not Given Insulin Detemir (Levemir) 18 unit SC Q12 [facility] Last Admin: 11/03/17 23:07 Dose: 18 unit Latanoprost (Xalatan Opht) 0 ml OU HS [facility] Last Admin: 11/03/17 23:09 Dose: 2.5 ml Multivitamins (Hexavitamin) 1 tab GT DAILY [facility] Last Admin: 11/03/17 10:40 Dose: 1 tab Ondansetron HCl (Zofran Inj) 4 mg IVP Q6H PRN PRN Reason: Nausea/Vomiting Pantoprazole Sodium (Protonix Inj) 40 mg IVP DAILY [facility] Last Admin: 11/03/17 10:40 Dose: 40 mg Saccharomyces Boulardii (Florastor) 250 mg GT Q12 [facility] Stop: 11/05/17 22:00 Last Admin: 11/03/17 23:09 Dose: 250 mg Thiamine HCl (Vitamin B1 Tab) 100 mg GT BID [facility] Last Admin: 11/03/17 17:54 Dose: 100 mg - Labs Labs: 11/03/17 06:34 11/03/17 06:34 PT 13.0 SECONDS (9.7-12.2) H 10/23/17 04:53 INR 1.2 10/23/17 04:53 APTT 24 SECONDS (21-34) 10/23/17 04:53 - Constitutional Appears: No Acute Distress - Eye Exam Additional comments: right eye 3 mm sluggish and left eye 3 mm brisk, extraocular muscles intact however patient was not able to track my finger - ENT Exam Additional comments: NG tube in place - Cardiovascular Exam Cardiovascular Exam: REGULAR RHYTHM, +S1, +S2 - GI/Abdominal Exam GI & Abdominal Exam: Soft, Normal Bowel Sounds - Extremities Exam Extremities Exam: absent: Pedal Edema - Neurological Exam Neurological Exam: Awake Additional comments: Awake (soft voice), extraocular muscles intact however patient was not able to track my finger - Psychiatric Exam Psychiatric exam: Depressed, Flat Affect Assessment and Plan (1) History of hydrocephalus Assessment & Plan: ---Neurosurgery Dr Hancock/Ella is consulted ---- ID Dr. Milton consulted - Shunt placed in 2014 - DOCK COORDINATOR Shunt repair 02/26/17 - s/p DOCK COORDINATOR shunt revision - 3rd this hospital stay (10/10/2017, 10/11/2017, 10/19/2017 , 10/23/2017) - S/P Revision 10/23/17 - placement of left parietal pleural shunt -keep MAP ~100, ICP 10: CPP >70 -continue IV NS, osmol 305, will increase NA near 145 -keep HOB >30 Neurology consulted, Dr. Nixon - Valproate 500mg IVP Q12H - decreased dose from 1000mg on 11/02 to see if this improves mental status - HOLDING since 11/03 Labs/Diagnostics: - Teague cultures - negative to date - esr elevated 72 Imaging: - Head CT 10/23: Interval placement new left posterior superior parietal shunt tube with decrease size of the ventricles. Intraventricular air with small amount of hemorrhage layering within the dependent portion of the atria and occipital horns. Decrease size of the ventricles with improved periventricular white matter changes -transependymal edema. - Repeat Head CT 10/26: Interval decrease size of the ventricular system. Persistent small amount of hemorrhage seen layering in the dependent portion of both atria and occipital horns. Persistent but diminished amount of intraventricular air - Repeat Head Ct 10/29 (ordered due to blank stare episode on 10/29): unchanged from previous - Repeat head ct 11/01 (ordered due to lack of improvement in mental status): unchanged from previous Meds: - Mannitol 25grams given x 1 - Started on vanco Q12 10/20 - discontinued 10/28 - Started Meropenem 10/20 - discontinued 10/28 - Valproate 500mg IVP Q12H - decreased dose from 1000mg on 11/02 to see if this improves mental status - HOLDING since 11/03 - Thiamine 100mg GT daily - Vitamin C 500mg GT daily - Vitamin B12 1,000mcg GT daily -Multivitamin 1 tab GT daily Status: Acute (2) Dysphagia Assessment & Plan: 2/2 hydrocephalus Swallow/speech therapist on board * Continue dysphagia therapy * Continue therapeutic feeds to maintain swallow function NG Tube Feeds Status: Acute (3) HTN (hypertension) Assessment & Plan: Stable Will restart antihypertensive as needed Status: Acute (4) Diabetes mellitus Assessment & Plan: - Accuchecks - Medium Dose insulin sliding scale, Levemir dose of 18 units BID Status: Acute (5) Prophylactic measure Assessment & Plan: - SCDs - Protonix Q12 - Right TLC placed 10/23/17 Disposition: Cleared by Neurosurgery, will arrange for discharge planning LTAC in [facility] or [place]. All plans and management discussed with Dr. Beaulieu Status: Acute <David Beaulieu - Last Filed: 11/04/17 08:56> Objective - Vital Signs/Intake and Output Vital Signs (last 24 hours): Temp Pulse Resp BP Pulse Ox 98.7 F 94 H 20 176/89 H 96 11/04/17 07:35 11/04/17 08:05 11/04/17 07:35 11/04/17 07:35 11/04/17 07:35 Intake and Output: 11/04/17 11/04/17 06:59 18:59 Intake Total 400 Balance 400 - Medications Medications: Current Medications Ascorbic Acid (Vitamin C 500 Mg Tab) 500 mg GT DAILY [facility] Last Admin: 11/03/17 10:40 Dose: 500 mg Cyanocobalamin (Vitamin B12 1000 Mcg Tab) 1,000 mcg GT DAILY [facility] Last Admin: 11/03/17 10:40 Dose: 1,000 mcg Dextrose (Dextrose 50% Inj) 0 ml IV STAT PRN; Protocol PRN Reason: Hypoglycemia Protocol Dextrose (Glutose 15) 0 gm GT ONCE PRN; Protocol PRN Reason: Hypoglycemia Protocol Glucagon (Glucagen Diagnostic Kit) 0 mg IM STAT PRN; Protocol PRN Reason: Hypoglycemia Protocol Valproate Sodium 500 mg/ (Sodium Chloride) 105 mls @ 100 mls/hr IVPB Q12H [facility] Last Admin: 11/03/17 01:14 Dose: 100 mls/hr Insulin Aspart (Novolog) 0 unit SC Q6H [facility] PRN Reason: Protocol Last Admin: 11/04/17 06:48 Dose: 4 units Insulin Detemir (Levemir) 18 unit SC Q12 [facility] Last Admin: 11/03/17 23:07 Dose: 18 unit Latanoprost (Xalatan Opht) 0 ml OU HS [facility] Last Admin: 11/03/17 23:09 Dose: 2.5 ml Multivitamins (Hexavitamin) 1 tab GT DAILY [facility] Last Admin: 11/03/17 10:40 Dose: 1 tab Ondansetron HCl (Zofran Inj) 4 mg IVP Q6H PRN PRN Reason: Nausea/Vomiting Pantoprazole Sodium (Protonix Inj) 40 mg IVP DAILY [facility] Last Admin: 11/03/17 10:40 Dose: 40 mg Saccharomyces Boulardii (Florastor) 250 mg GT Q12 [facility] Stop: 11/05/17 22:00 Last Admin: 11/03/17 23:09 Dose: 250 mg Thiamine HCl (Vitamin B1 Tab) 100 mg GT BID [facility] Last Admin: 11/03/17 17:54 Dose: 100 mg - Labs Labs: 11/04/17 06:36 11/04/17 06:36 PT 13.0 SECONDS (9.7-12.2) H 10/23/17 04:53 INR 1.2 06/18/18 04:53 APTT 24 SECONDS (21-34) 10/23/17 04:53 Attending/Attestation - Attestation I have personally seen and examined this patient.: Yes I have fully participated in the care of the patient.: Yes I have reviewed all pertinent clinical information, including history, physical exam and plan: Yes Notes (Text): 11/04/17 08:52 Medical attending: Patient was seen and examined by me. Agree with the above note by the resident The patient was awake, however like previous day was rather somulent. She woke. She was able to answer yes or no to very simple questions. She did remember who I was. She was able to squeeze my hands bilaterally as well as raise her arms and move her toes. She could also stick out her tounge We had decreased and then held the depakote to see if this would help with the mental status. So far she is only slighly more awake than when I saw her before. At some point I would like for her to go to rehab - LTAC However she would have to be more awake and alert. thank you David Beaulieu
[2017-11-04 06:49] LABS: BASO % 0.7 % (0.0-2.0); EOS # 0.1 K/uL (0.0-0.7); EOS % 1.8 % (0.0-4.0); HEMOGLOBIN 11.6 g/dL (11.0-16.0); LYMPH # 1.3 K/uL (1.0-4.3); MEAN CELL VOLUME 87.4 fL (81.0-99.0); MEAN CORPUSCULAR HEMOGLOBIN 29.3 pg (27.0-31.0); MEAN CORPUSCULAR HGB CONC 33.5 g/dL (33.0-37.0); MEAN PLATELET VOLUME 8.5 fL (7.2-11.7); MONO # 0.5 K/uL (0.0-0.8); MONO % 7.4 % (0.0-10.0); NEUT # 5.4 K/uL (1.8-7.0); NEUT % 73.1 % (50.0-75.0); RBC 3.97 Mil/uL (3.80-5.20); RED CELL DISTRIBUTION WIDTH 14.8 % (11.5-14.5); WHITE BLOOD COUNT 7.4 K/uL (4.8-10.8)
[2017-11-04 07:19] LABS: ALB/GLOB RATIO 1.1 (1.0-2.1); ALBUMIN 3.1 g/dL (3.5-5.0); ALT/SGPT 22 U/L (9-52); AST/SGOT 20 U/L (14-36); BLOOD UREA NITROGEN 31 mg/dL (7-17); CALCIUM 8.4 mg/dl (8.6-10.4); GFR AFRICAN-AMERICAN > 60; GFR NON-AFRICAN AMERICAN > 60
[2017-11-04] MEDS: Saccharomyces Boulardi 250 mg Cap GT SCH ×2 (09:45→22:05)
[2017-11-04] MEDS: Multiple Vitamins Tab GT SCH (09:45)
[2017-11-04] MEDS: Insulin Detemir 100 units/ml Vial (Levemir) SC SCH ×2 (09:53→22:05)
[2017-11-04] MEDS: Latanoprost 2.5 ml Opht Soln OU SCH (22:06)
[2017-11-05] MEDS: (Novolog) Insulin Aspart, Recombinant 100 u/ml 10 ml vial SC SCH ×4 (00:07→18:28)
--- NOTE | 2017-11-05 04:35 | CP.PCM.PN ---
<Yee Arana E - Last Filed: 11/05/17 04:40> Subjective - Date & Time of Evaluation Date of Evaluation: 11/05/17 Time of Evaluation: 04:00 - Subjective Subjective: Medicine progress note ( Dr. Beaulieu's service) Patient was seen and examined at bedside. Patient was awake and alert but quite somnolent. Patient responds to commands; she is able to squeeze one's hand , wiggle her toes and nod "yes or no". As per nursing staff, there were no acute issues. Objective - Vital Signs/Intake and Output Vital Signs (last 24 hours): Temp Pulse Resp BP Pulse Ox 99.2 F 90 20 151/83 H 97 11/04/17 23:20 11/05/17 00:00 11/04/17 23:20 11/04/17 23:20 11/04/17 23:20 Intake and Output: 11/04/17 11/05/17 18:59 06:59 Intake Total 380 380 Output Total 1000 Balance 380 -620 - Medications Medications: Current Medications Ascorbic Acid (Vitamin C 500 Mg Tab) 500 mg GT DAILY [facility] Last Admin: 11/04/17 09:44 Dose: 500 mg Cyanocobalamin (Vitamin B12 1000 Mcg Tab) 1,000 mcg GT DAILY [facility] Last Admin: 11/04/17 09:46 Dose: 1,000 mcg Dextrose (Dextrose 50% Inj) 0 ml IV STAT PRN; Protocol PRN Reason: Hypoglycemia Protocol Dextrose (Glutose 15) 0 gm GT ONCE PRN; Protocol PRN Reason: Hypoglycemia Protocol Glucagon (Glucagen Diagnostic Kit) 0 mg IM STAT PRN; Protocol PRN Reason: Hypoglycemia Protocol Valproate Sodium 500 mg/ (Sodium Chloride) 105 mls @ 100 mls/hr IVPB Q12H [facility] Last Admin: 11/03/17 01:14 Dose: 100 mls/hr Insulin Aspart (Novolog) 0 unit SC Q6H [facility] PRN Reason: Protocol Last Admin: 11/05/17 00:07 Dose: Not Given Insulin Detemir (Levemir) 18 unit SC Q12 [facility] Last Admin: 11/04/17 22:05 Dose: 18 unit Latanoprost (Xalatan Opht) 0 ml OU HS [facility] Last Admin: 11/04/17 22:06 Dose: 2.5 ml Multivitamins (Hexavitamin) 1 tab GT DAILY [facility] Last Admin: 11/04/17 09:45 Dose: 1 tab Ondansetron HCl (Zofran Inj) 4 mg IVP Q6H PRN PRN Reason: Nausea/Vomiting Pantoprazole Sodium (Protonix Inj) 40 mg IVP DAILY [facility] Last Admin: 11/04/17 09:45 Dose: 40 mg Saccharomyces Boulardii (Florastor) 250 mg GT Q12 [facility] Stop: 11/05/17 22:00 Last Admin: 11/04/17 22:05 Dose: 250 mg Thiamine HCl (Vitamin B1 Tab) 100 mg GT BID [facility] Last Admin: 11/04/17 17:54 Dose: 100 mg - Labs Labs: 11/04/17 06:36 11/04/17 06:36 PT 13.0 SECONDS (9.7-12.2) H 10/23/17 04:53 INR 1.2 10/23/17 04:53 APTT 24 SECONDS (21-34) 10/23/17 04:53 - Head Exam Additional comments: Hair shaved for shut revision - Eye Exam Additional comments: right eye 3 mm sluggish and left eye 3 mm brisk, extraocular muscles intact however patient was not able to track my finger - ENT Exam Additional comments: NG tube in place - Respiratory Exam Respiratory Exam: NORMAL BREATHING PATTERN. absent: Prolonged Expiratory Phase , Rhonchi, Wheezes, Respiratory Distress - Cardiovascular Exam Cardiovascular Exam: REGULAR RHYTHM, +S1, +S2 - GI/Abdominal Exam GI & Abdominal Exam: Soft, Hypoactive Bowel Sounds, Normal Bowel Sounds - Extremities Exam Extremities Exam: Normal Inspection. absent: Calf Tenderness, Pedal Edema - Neurological Exam Neurological Exam: Alert, Awake. absent: Oriented x3 - Psychiatric Exam Psychiatric exam: Flat Affect - Skin Skin Exam: Normal Color Assessment and Plan (1) History of hydrocephalus Assessment & Plan: ---Neurosurgery Dr Hancock/Ella is consulted ---- ID Dr. Milton consulted - Shunt placed in 2014 - BENEFITS SPECIALIST RECRUITER Shunt repair 02/26/17 - s/p BENEFITS SPECIALIST RECRUITER shunt revision - 3rd this hospital stay (10/10/2017, 10/11/2017, 10/19/2017 , 10/23/2017) - S/P Revision 10/23/17 - placement of left parietal pleural shunt -keep MAP ~100, ICP 10: CPP >70 -continue IV NS, osmol 305, will increase NA near 145 -keep HOB >30 Neurology consulted, Dr. Nixon - Valproate 500mg IVP Q12H - decreased dose from 1000mg on 11/02 to see if this improves mental status - HOLDING since 11/03 Labs/Diagnostics: - Teague cultures - negative to date - esr elevated 72 Imaging: - Head CT 10/23: Interval placement new left posterior superior parietal shunt tube with decrease size of the ventricles. Intraventricular air with small amount of hemorrhage layering within the dependent portion of the atria and occipital horns. Decrease size of the ventricles with improved periventricular white matter changes -transependymal edema. - Repeat Head CT 10/26: Interval decrease size of the ventricular system. Persistent small amount of hemorrhage seen layering in the dependent portion of both atria and occipital horns. Persistent but diminished amount of intraventricular air - Repeat Head Ct 10/29 (ordered due to blank stare episode on 10/29): unchanged from previous - Repeat head ct 11/01 (ordered due to lack of improvement in mental status): unchanged from previous Meds: - Mannitol 25grams given x 1 - Started on vanco Q12 10/20 - discontinued 10/28 - Started Meropenem 10/20 - discontinued 10/28 - Valproate 500mg IVP Q12H - decreased dose from 1000mg on 11/02 to see if this improves mental status - HOLDING since 11/03 - Thiamine 100mg GT daily - Vitamin C 500mg GT daily - Vitamin B12 1,000mcg GT daily -Multivitamin 1 tab GT daily Status: Acute (2) Dysphagia Assessment & Plan: 2/2 hydrocephalus Swallow/speech therapist on board * Continue dysphagia therapy * Continue therapeutic feeds to maintain swallow function NG Tube Feeds Status: Acute (3) HTN (hypertension) Assessment & Plan: Stable Will restart antihypertensive as needed Status: Acute (4) Diabetes mellitus Assessment & Plan: - Accuchecks - Medium Dose insulin sliding scale, Levemir dose of 18 units BID Status: Acute (5) Prophylactic measure Assessment & Plan: - SCDs - Protonix 40mg IV daily - Right TLC placed 10/23/17 Disposition: Cleared by Neurosurgery, will arrange for discharge planning LTAC in [facility] or [place] once patient is more alert and awake. All plans and management discussed with Dr. Beaulieu Status: Acute <Beaulieu,Peter H - Last Filed: 11/05/17 08:38> Objective - Vital Signs/Intake and Output Vital Signs (last 24 hours): Temp Pulse Resp BP Pulse Ox 99.3 F 100 H 20 164/83 H 96 11/05/17 07:00 11/05/17 07:15 11/05/17 07:00 11/05/17 07:00 11/05/17 07:00 Intake and Output: 11/05/17 11/05/17 06:59 18:59 Intake Total 695 Output Total 1200 Balance -505 - Medications Medications: Current Medications Ascorbic Acid (Vitamin C 500 Mg Tab) 500 mg GT DAILY [facility] Last Admin: 11/04/17 09:44 Dose: 500 mg Cyanocobalamin (Vitamin B12 1000 Mcg Tab) 1,000 mcg GT DAILY [facility] Last Admin: 11/04/17 09:46 Dose: 1,000 mcg Dextrose (Dextrose 50% Inj) 0 ml IV STAT PRN; Protocol PRN Reason: Hypoglycemia Protocol Dextrose (Glutose 15) 0 gm GT ONCE PRN; Protocol PRN Reason: Hypoglycemia Protocol Glucagon (Glucagen Diagnostic Kit) 0 mg IM STAT PRN; Protocol PRN Reason: Hypoglycemia Protocol Valproate Sodium 500 mg/ (Sodium Chloride) 105 mls @ 100 mls/hr IVPB Q12H [facility] Last Admin: 11/03/17 01:14 Dose: 100 mls/hr Insulin Aspart (Novolog) 0 unit SC Q6H [facility] PRN Reason: Protocol Last Admin: 11/05/17 05:26 Dose: 6 units Insulin Detemir (Levemir) 18 unit SC Q12 [facility] Last Admin: 11/04/17 22:05 Dose: 18 unit Latanoprost (Xalatan Opht) 0 ml OU HS [facility] Last Admin: 11/04/17 22:06 Dose: 2.5 ml Multivitamins (Hexavitamin) 1 tab GT DAILY [facility] Last Admin: 11/04/17 09:45 Dose: 1 tab Ondansetron HCl (Zofran Inj) 4 mg IVP Q6H PRN PRN Reason: Nausea/Vomiting Pantoprazole Sodium (Protonix Inj) 40 mg IVP DAILY [facility] Last Admin: 11/04/17 09:45 Dose: 40 mg Saccharomyces Boulardii (Florastor) 250 mg GT Q12 [facility] Stop: 11/05/17 22:00 Last Admin: 11/04/17 22:05 Dose: 250 mg Thiamine HCl (Vitamin B1 Tab) 100 mg GT BID [facility] Last Admin: 11/04/17 17:54 Dose: 100 mg - Labs Labs: 11/05/17 06:53 11/05/17 06:53 PT 13.0 SECONDS (9.7-12.2) H 10/23/17 04:53 INR 1.2 10/23/17 04:53 APTT 24 SECONDS (21-34) 10/23/17 04:53 Attending/Attestation - Attestation I have personally seen and examined this patient.: Yes I have fully participated in the care of the patient.: Yes I have reviewed all pertinent clinical information, including history, physical exam and plan: Yes Notes (Text): 11/05/17 08:31 Medical attending: Patient was seen and examined by me. Agree with the above note by resident Compared to yesterday I do not see a large improvement. This being said it is somewhat better than when I saw her on . So at this time we are holding the depakote to see if this will have any affect. As mentioned previously, she answers yes or no to simple questions. She is able to squeeze my hand bilaterally and lift her arms. Also able to move toes All this being said she still has the very emotionless blank face appearance from before Beside holding the depakote. Per discusion with neurology will try Amatadine 100 once a day to see if there is any affect. Will increase long acting insulin thank you David Beaulieu
[2017-11-05 07:01] LABS: BASO # 0.1 K/uL (0.0-0.2); BASO % 0.9 % (0.0-2.0); EOS # 0.1 K/uL (0.0-0.7); EOS % 1.3 % (0.0-4.0); HEMOGLOBIN 11.9 g/dL (11.0-16.0); LYMPH # 0.9 K/uL (1.0-4.3); MEAN CELL VOLUME 86.4 fL (81.0-99.0); MEAN CORPUSCULAR HEMOGLOBIN 29.5 pg (27.0-31.0); MEAN CORPUSCULAR HGB CONC 34.1 g/dL (33.0-37.0); MEAN PLATELET VOLUME 8.2 fL (7.2-11.7); MONO # 0.5 K/uL (0.0-0.8); MONO % 7.4 % (0.0-10.0); NEUT # 5.5 K/uL (1.8-7.0); NEUT % 77.4 % (50.0-75.0); NRBC % 0.1 % (0.0-2.0); RBC 4.02 Mil/uL (3.80-5.20); RED CELL DISTRIBUTION WIDTH 14.7 % (11.5-14.5)
[2017-11-05 07:56] LABS: ALBUMIN 3.2 g/dL (3.5-5.0); ALT/SGPT 16 U/L (9-52); AST/SGOT 26 U/L (14-36); BLOOD UREA NITROGEN 31 mg/dL (7-17); CALCIUM 8.7 mg/dl (8.6-10.4); GFR AFRICAN-AMERICAN > 60; GFR NON-AFRICAN AMERICAN > 60
--- NOTE | 2017-11-05 08:26 | CP.PCM.PN ---
Subjective - Date & Time of Evaluation Date of Evaluation: 11/05/17 Time of Evaluation: 08:26 - Subjective Subjective: Ms. Diaz was seen and examined at the bedside. She is awake, verbalize few words such as " sajan, muy samantha", able to answer some questions but unable to verbalize place, person, and time and very slow to talk. She is able to follow simple commands with her lower extremities weaker than the lower extremities., and able to used the towel to wipe her sherwin. eyes. She has bilateral lower SCD' s.She has the right parietal dressing intact, tolerating NGT feeding. Depakote on hold to monitor her mental status.There was no untoward events overnight. Objective - Vital Signs/Intake and Output Vital Signs (last 24 hours): Temp Pulse Resp BP Pulse Ox 99.3 F 100 H 20 164/83 H 96 11/05/17 07:00 11/05/17 07:15 11/05/17 07:00 11/05/17 07:00 11/05/17 07:00 Intake and Output: 11/05/17 11/05/17 06:59 18:59 Intake Total 695 Output Total 1200 Balance -505 - Medications Medications: Current Medications Ascorbic Acid (Vitamin C 500 Mg Tab) 500 mg GT DAILY [facility] Last Admin: 11/04/17 09:44 Dose: 500 mg Cyanocobalamin (Vitamin B12 1000 Mcg Tab) 1,000 mcg GT DAILY [facility] Last Admin: 11/04/17 09:46 Dose: 1,000 mcg Dextrose (Dextrose 50% Inj) 0 ml IV STAT PRN; Protocol PRN Reason: Hypoglycemia Protocol Dextrose (Glutose 15) 0 gm GT ONCE PRN; Protocol PRN Reason: Hypoglycemia Protocol Glucagon (Glucagen Diagnostic Kit) 0 mg IM STAT PRN; Protocol PRN Reason: Hypoglycemia Protocol Valproate Sodium 500 mg/ (Sodium Chloride) 105 mls @ 100 mls/hr IVPB Q12H [facility] Last Admin: 11/03/17 01:14 Dose: 100 mls/hr Insulin Aspart (Novolog) 0 unit SC Q6H [facility] PRN Reason: Protocol Last Admin: 11/05/17 05:26 Dose: 6 units Insulin Detemir (Levemir) 18 unit SC Q12 [facility] Last Admin: 11/04/17 22:05 Dose: 18 unit Latanoprost (Xalatan Opht) 0 ml OU HS [facility] Last Admin: 11/04/17 22:06 Dose: 2.5 ml Multivitamins (Hexavitamin) 1 tab GT DAILY [facility] Last Admin: 11/04/17 09:45 Dose: 1 tab Ondansetron HCl (Zofran Inj) 4 mg IVP Q6H PRN PRN Reason: Nausea/Vomiting Pantoprazole Sodium (Protonix Inj) 40 mg IVP DAILY [facility] Last Admin: 11/04/17 09:45 Dose: 40 mg Saccharomyces Boulardii (Florastor) 250 mg GT Q12 [facility] Stop: 11/05/17 22:00 Last Admin: 11/04/17 22:05 Dose: 250 mg Thiamine HCl (Vitamin B1 Tab) 100 mg GT BID [facility] Last Admin: 11/04/17 17:54 Dose: 100 mg - Labs Labs: 11/05/17 06:53 11/05/17 06:53 PT 13.0 SECONDS (9.7-12.2) H 10/23/17 04:53 INR 1.2 10/23/17 04:53 APTT 24 SECONDS (21-34) 10/23/17 04:53 - Constitutional Appears: No Acute Distress - Head Exam Head Exam: NORMAL INSPECTION - Eye Exam Additional comments: with no lateral movement of the right eye. - Neurological Exam Neurological Exam: Awake Neuro motor strength exam: Left Upper Extremity: 3, Right Upper Extremity: 3, Left Lower Extremity: 2/1, Right Lower Extremity: 2/1 Additional comments: neurological unchanged from previous examination. Assessment and Plan (1) Mental status change Assessment & Plan: Case discussed with Dr. Nixon, continue all current medical including holding AED dose, physical and occupational therapies. Recommend keeping head of bed elevated at least 40 degrees, monitor neuro status, normothermic, blood pressure and glycemic control. Status: Acute
--- NOTE | 2017-11-05 09:03 | CP.PCM.PN ---
Subjective - Date & Time of Evaluation Date of Evaluation: 11/05/17 Time of Evaluation: 09:01 - Subjective Subjective: slightly more alert and responsive verbalizing better leo with purposeful movements f/u CT am Objective - Vital Signs/Intake and Output Vital Signs (last 24 hours): Temp Pulse Resp BP Pulse Ox 99.3 F 100 H 20 164/83 H 96 11/05/17 07:00 11/05/17 07:15 11/05/17 07:00 11/05/17 07:00 11/05/17 07:00 Intake and Output: 11/05/17 11/05/17 06:59 18:59 Intake Total 695 Output Total 1200 Balance -505 - Medications Medications: Current Medications Amantadine HCl (Symmetrel) 100 mg PO DAILY [facility] Ascorbic Acid (Vitamin C 500 Mg Tab) 500 mg GT DAILY [facility] Last Admin: 11/04/17 09:44 Dose: 500 mg Cyanocobalamin (Vitamin B12 1000 Mcg Tab) 1,000 mcg GT DAILY [facility] Last Admin: 11/04/17 09:46 Dose: 1,000 mcg Dextrose (Dextrose 50% Inj) 0 ml IV STAT PRN; Protocol PRN Reason: Hypoglycemia Protocol Dextrose (Glutose 15) 0 gm GT ONCE PRN; Protocol PRN Reason: Hypoglycemia Protocol Glucagon (Glucagen Diagnostic Kit) 0 mg IM STAT PRN; Protocol PRN Reason: Hypoglycemia Protocol Valproate Sodium 500 mg/ (Sodium Chloride) 105 mls @ 100 mls/hr IVPB Q12H [facility] Last Admin: 11/03/17 01:14 Dose: 100 mls/hr Insulin Aspart (Novolog) 0 unit SC Q6H [facility] PRN Reason: Protocol Last Admin: 11/05/17 05:26 Dose: 6 units Insulin Detemir (Levemir) 25 unit SC Q12H [facility] Latanoprost (Xalatan Opht) 0 ml OU HS [facility] Last Admin: 11/04/17 22:06 Dose: 2.5 ml Multivitamins (Hexavitamin) 1 tab GT DAILY [facility] Last Admin: 11/04/17 09:45 Dose: 1 tab Ondansetron HCl (Zofran Inj) 4 mg IVP Q6H PRN PRN Reason: Nausea/Vomiting Pantoprazole Sodium (Protonix Inj) 40 mg IVP DAILY [facility] Last Admin: 11/04/17 09:45 Dose: 40 mg Saccharomyces Boulardii (Florastor) 250 mg GT Q12 [facility] Stop: 11/05/17 22:00 Last Admin: 11/04/17 22:05 Dose: 250 mg Thiamine HCl (Vitamin B1 Tab) 100 mg GT BID [facility] Last Admin: 11/04/17 17:54 Dose: 100 mg - Labs Labs: 11/05/17 06:53 11/05/17 06:53 PT 13.0 SECONDS (9.7-12.2) H 10/23/17 04:53 INR 1.2 10/23/17 04:53 APTT 24 SECONDS (21-34) 10/23/17 04:53
[2017-11-05] MEDS: Multiple Vitamins Tab GT SCH (09:52)
[2017-11-05] MEDS: Saccharomyces Boulardi 250 mg Cap GT SCH ×2 (09:53→22:49)
[2017-11-05] MEDS ORDERED: Amantadine 50 mg/5 ml Syrup (473 ml) PO SCH (10:00)
[2017-11-05] MEDS: Insulin Detemir 100 units/ml Vial (Levemir) SC SCH ×2 (10:01→22:50)
[2017-11-05] MEDS: Latanoprost 2.5 ml Opht Soln OU SCH (22:48)
[2017-11-06] MEDS: (Novolog) Insulin Aspart, Recombinant 100 u/ml 10 ml vial SC SCH ×4 (00:27→20:47)
[2017-11-06 06:34] LABS: BASO # 0.1 K/uL (0.0-0.2); BASO % 1.4 % (0.0-2.0); EOS # 0.1 K/uL (0.0-0.7); EOS % 1.7 % (0.0-4.0); LYMPH # 1.6 K/uL (1.0-4.3); LYMPH % 20.7 % (20.0-40.0); MEAN CELL VOLUME 86.8 fL (81.0-99.0); MEAN CORPUSCULAR HEMOGLOBIN 29.7 pg (27.0-31.0); MEAN CORPUSCULAR HGB CONC 34.3 g/dL (33.0-37.0); MONO # 0.7 K/uL (0.0-0.8); MONO % 8.5 % (0.0-10.0); NEUT # 5.3 K/uL (1.8-7.0); NEUT % 67.7 % (50.0-75.0); NRBC % 0.1 % (0.0-2.0); RBC 4.04 Mil/uL (3.80-5.20); RED CELL DISTRIBUTION WIDTH 14.6 % (11.5-14.5); WHITE BLOOD COUNT 7.9 K/uL (4.8-10.8)
--- NOTE | 2017-11-06 06:49 | CP.PCM.PN ---
Subjective - Date & Time of Evaluation Date of Evaluation: 11/06/17 Time of Evaluation: 06:49 - Subjective Subjective: Ms. Diaz was seen and examined at the bedside. She is awake, verbalize few words such as " sajan, muy samantha"able to answer some questions and denies any headache, dizziness, lightheadedness, nausea, or vomiting. She is easily response ( opening her eyes) to verbal stimuli.She is unable to verbalize place , person, and time and very slow to talk. She is able to follow simple commands with her lower extremities weaker than the lower extremities.She has bilateral lower SCD's.She has the right parietal dressing intact, tolerating NGT feeding. The patient is for repeat CT scan this am.There was no untoward events overnight. Objective - Vital Signs/Intake and Output Vital Signs (last 24 hours): Temp Pulse Resp BP Pulse Ox 99.3 F 102 H 20 142/85 96 11/06/17 04:00 11/06/17 04:00 11/06/17 04:00 11/06/17 04:00 11/06/17 04:00 Intake and Output: 11/05/17 11/06/17 18:59 06:59 Intake Total 380 380 Output Total 1200 200 Balance -820 180 - Medications Medications: Current Medications Amantadine HCl (Symmetrel) 100 mg PO DAILY [facility] Ascorbic Acid (Vitamin C 500 Mg Tab) 500 mg GT DAILY [facility] Last Admin: 11/05/17 09:53 Dose: 500 mg Cyanocobalamin (Vitamin B12 1000 Mcg Tab) 1,000 mcg GT DAILY [facility] Last Admin: 11/05/17 09:53 Dose: 1,000 mcg Dextrose (Dextrose 50% Inj) 0 ml IV STAT PRN; Protocol PRN Reason: Hypoglycemia Protocol Dextrose (Glutose 15) 0 gm GT ONCE PRN; Protocol PRN Reason: Hypoglycemia Protocol Glucagon (Glucagen Diagnostic Kit) 0 mg IM STAT PRN; Protocol PRN Reason: Hypoglycemia Protocol Valproate Sodium 500 mg/ (Sodium Chloride) 105 mls @ 100 mls/hr IVPB Q12H [facility] Last Admin: 11/03/17 01:14 Dose: 100 mls/hr Insulin Aspart (Novolog) 0 unit SC Q6H [facility] PRN Reason: Protocol Last Admin: 11/06/17 06:05 Dose: 6 units Insulin Detemir (Levemir) 25 unit SC Q12H [facility] Last Admin: 11/05/17 22:50 Dose: 25 unit Latanoprost (Xalatan Opht) 0 ml OU HS [facility] Last Admin: 11/05/17 22:48 Dose: 2.5 ml Multivitamins (Hexavitamin) 1 tab GT DAILY [facility] Last Admin: 11/05/17 09:52 Dose: 1 tab Ondansetron HCl (Zofran Inj) 4 mg IVP Q6H PRN PRN Reason: Nausea/Vomiting Pantoprazole Sodium (Protonix Inj) 40 mg IVP DAILY [facility] Last Admin: 11/05/17 09:52 Dose: 40 mg Thiamine HCl (Vitamin B1 Tab) 100 mg GT BID [facility] Last Admin: 11/05/17 18:28 Dose: 100 mg - Labs Labs: 11/06/17 06:23 11/05/17 06:53 PT 13.0 SECONDS (9.7-12.2) H 10/23/17 04:53 INR 1.2 10/23/17 04:53 APTT 24 SECONDS (21-34) 10/23/17 04:53 - Constitutional Appears: No Acute Distress - Head Exam Head Exam: NORMAL INSPECTION - Neurological Exam Neurological Exam: Awake Neuro motor strength exam: Left Upper Extremity: 3, Right Upper Extremity: 3, Left Lower Extremity: 2/1, Right Lower Extremity: 2/1 Additional comments: awake, response easily to tactile stimuli, follows simple commands. Assessment and Plan (1) Mental status change Assessment & Plan: Case discussed with Dr. Nixon, continue all current medical including holding AED dose, physical and occupational therapies. Recommend starting Amantadine 100 mg via NGT daily ( started yesterday), follow any orders from neurosurgery , keeping head of bed elevated at least 40 degrees, monitor neuro status, normothermic, blood pressure and glycemic control. Status: Acute
[2017-11-06 06:53] LABS: ALBUMIN 3.4 g/dL (3.5-5.0); ALT/SGPT 29 U/L (9-52); AST/SGOT 28 U/L (14-36); BLOOD UREA NITROGEN 31 mg/dL (7-17); CALCIUM 8.9 mg/dl (8.6-10.4); GFR AFRICAN-AMERICAN > 60; GFR NON-AFRICAN AMERICAN > 60
--- NOTE | 2017-11-06 09:17 | CT ---
PROCEDURE: CT HEAD WITHOUT CONTRAST. HISTORY: f/u hydrocephalus COMPARISON: None available. TECHNIQUE: Axial computed tomography images were obtained through the head/brain without intravenous contrast. Radiation dose: Total exam DLP = 1031.38 mGy-cm. This CT exam was performed using one or more of the following dose reduction techniques: Automated exposure control, adjustment of the mA and/or kV according to patient size, and/or use of iterative reconstruction technique. FINDINGS: HEMORRHAGE: No new intracranial hemorrhage. BRAIN: There is redemonstration of mild periventricular hypodensities which may represent microangiopathic changes or periventricular edema. No mass, mass effect or territorial infarction. VENTRICLES: No change in moderate ventriculomegaly. There is stable position of a left trans parietal ventricular shunt catheter terminating in the left occipital horn. There is no change in the right shunt catheter transgressing the frontal subcortical white matter and frontal horn. There is minimal layering intraventricular hemorrhage in the occipital horns. CALVARIUM: Unremarkable. PARANASAL SINUSES: There is severe mucoperiosteal thickening in the right posterior ethmoid air cells. The remaining included paranasal sinuses are predominantly clear P MASTOID AIR CELLS: Predominantly clear. OTHER FINDINGS: None. IMPRESSION: No acute intracranial abnormality. Redemonstration of moderate ventriculomegaly with stable position of left trans parietal shunt catheter and minimal layering intraventricular hemorrhage.
[2017-11-06] MEDS: Insulin Detemir 100 units/ml Vial (Levemir) SC SCH (10:12)
[2017-11-06] MEDS: Amantadine 50 mg/5 ml Syrup (473 ml) PO SCH (10:14)
[2017-11-06] MEDS: Multiple Vitamins Tab GT SCH (10:14)
--- NOTE | 2017-11-06 12:13 | CP.PCM.PN ---
Subjective - Date & Time of Evaluation Date of Evaluation: 11/06/17 Time of Evaluation: 09:00 - Subjective Subjective: Seen and examined by me. patient is lying on bed without discomfort,She is awake but flat affect and answering questions very soft voice " fine thank you in Gabonese" Her brother at bedside trying to talk to her also . Denies pain, following command. has good hand sole stapler welt ,upper extremities strength poor,Trying to move her toes Has NG tube and getting feeding. Very soft speech. I see only very little improvement from last week in her mental status. No abnormal activity like seizure noted/ Objective - Vital Signs/Intake and Output Vital Signs (last 24 hours): Temp Pulse Resp BP Pulse Ox 99.0 F 100 H 20 129/83 97 11/06/17 07:00 11/06/17 07:00 11/06/17 07:00 11/06/17 07:00 11/06/17 07:00 Intake and Output: 11/06/17 11/06/17 06:59 18:59 Intake Total 690 Output Total 200 Balance 490 - Medications Medications: Current Medications Amantadine HCl (Symmetrel) [address] [facility] Last Admin: 11/06/17 10:14 Dose: 100 mg Ascorbic Acid (Vitamin C 500 Mg Tab) [address] [facility] Last Admin: 11/06/17 10:15 Dose: 500 mg Cyanocobalamin (Vitamin B12 1000 Mcg Tab) 1,[address] [facility] Last Admin: 11/06/17 10:19 Dose: 1,000 mcg Dextrose (Dextrose 50% Inj) 0 ml IV STAT PRN; Protocol PRN Reason: Hypoglycemia Protocol Dextrose (Glutose 15) 0 gm GT ONCE PRN; Protocol PRN Reason: Hypoglycemia Protocol Glucagon (Glucagen Diagnostic Kit) 0 mg IM STAT PRN; Protocol PRN Reason: Hypoglycemia Protocol Valproate Sodium 500 mg/ (Sodium Chloride) 105 mls @ 100 mls/hr IVPB Q12H [facility] Last Admin: 11/03/17 01:14 Dose: 100 mls/hr Insulin Aspart (Novolog) 0 unit SC Q6H [facility] PRN Reason: Protocol Last Admin: 11/06/17 11:47 Dose: 6 units Insulin Detemir (Levemir) [address] [facility] Last Admin: 11/06/17 10:12 Dose: 25 unit Latanoprost (Xalatan Opht) [address] [facility] Last Admin: 11/05/17 22:48 Dose: 2.5 ml Multivitamins (Hexavitamin) [address] [facility] Last Admin: 11/06/17 10:14 Dose: 1 tab Ondansetron HCl (Zofran Inj) 4 mg IVP Q6H PRN PRN Reason: Nausea/Vomiting Pantoprazole Sodium (Protonix Inj) [address] [facility] Last Admin: 11/06/17 10:15 Dose: 40 mg Thiamine HCl (Vitamin B1 Tab) [address] [facility] Last Admin: 11/06/17 10:13 Dose: 100 mg - Labs Labs: 11/06/17 06:23 11/06/17 06:23 PT 13.0 SECONDS (9.7-12.2) H 10/23/17 04:53 INR 1.2 10/23/17 04:53 APTT 24 SECONDS (21-34) 10/23/17 04:53 - Constitutional Appears: Non-toxic - Head Exam Head Exam: absent: ATRAUMATIC (right scalp surgery) - Eye Exam Eye Exam: Normal appearance - ENT Exam ENT Exam: Mucous Membranes Moist - Neck Exam Neck Exam: Full ROM - Respiratory Exam Respiratory Exam: Clear to Ausculation Bilateral, NORMAL BREATHING PATTERN - Cardiovascular Exam Cardiovascular Exam: REGULAR RHYTHM - GI/Abdominal Exam GI & Abdominal Exam: Soft, Normal Bowel Sounds - Extremities Exam Extremities Exam: Full ROM - Back Exam Back Exam: NORMAL INSPECTION - Neurological Exam Neurological Exam: Awake. absent: Oriented x3 (slow and soft speech) - Psychiatric Exam Psychiatric exam: Flat Affect - Skin Skin Exam: Intact Assessment and Plan - Assessment and Plan (Free Text) Plan: 1. 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 Milton consulted Neurology consulted, Dr. Nixon Initial ALTERNATIVE ENERGY ENGINEER Shunt placed in 2014 Past history of ALTERNATIVE ENERGY ENGINEER Shunt repair 02/26/17 Multiple ALTERNATIVE ENERGY ENGINEER shunt revision during this hospitalization- 3rd this hospital stay (10/10/2017, 10/11/2017, 10/19/2017, 10/23/2017) Very slow mental status improvement Valproate 500mg IVP Q12H - decreased dose from 1000mg on 11/02 to see if this improves mental status - HOLDING since 11/03 Previous Teague cultures - negative to date off perioperative antibiotics Please see CT imagine in the chart Repeat head ct 11/01 (ordered due to lack of improvement in mental status): unchanged from previous 2. Dysphagia and change in mental status/lethargic getting NG feeding aspiration precaution swallowing evaluation pending 3.Hypertension Her BP is high yesterday We will start back on ACEI / lorsatan monitor electrolytes 4. Diabetes mellitus Increase Levemir to 30 units BID high sugar likely due to tube feeding 5.Prophylactic measure - SCDs - Protonix 40mg IV daily - Right TLC placed 10/23/17 d/w Brother at bedside follow swallow evaluation and PT eval Disposition: Cleared by Neurosurgery, will arrange for discharge planning [facility] in [facility] or [place] once patient is more alert and awake.
[2017-11-06] MEDS ORDERED: Insulin Detemir 100 units/ml Vial (Levemir) SC SCH (15:33)
[2017-11-06] MEDS: Latanoprost 2.5 ml Opht Soln OU SCH (22:10)
[2017-11-07] MEDS: (Novolog) Insulin Aspart, Recombinant 100 u/ml 10 ml vial SC SCH ×4 (00:38→18:14)
[2017-11-07] MEDS ORDERED: Acetaminophen 650mg/20.3ml solution UD GT ONE (05:06)
--- NOTE | 2017-11-07 07:08 | CP.PCM.PN ---
<SmallNayelys M - Last Filed: 11/07/17 19:24> Subjective - Date & Time of Evaluation Date of Evaluation: 11/07/17 Time of Evaluation: 08:00 - Subjective Subjective: PGY1 Progress note for Dr. Parsons. Pt seen and examined at bedside. This morning pt had an initial low grade fever , 100.8 F (Tmax 101.7F) and was provided tylenol. Pt is tachycardic at 100. Pt is lying in similar presentation as yesterday, no acute distress. She is awake, speaking in a very soft voce and flat affect. Pt makes no eye contact and has no complaints. Pt denies chest pain, abdominal pain, difficulty breathing, headaches. Objective - Vital Signs/Intake and Output Vital Signs (last 24 hours): Temp Pulse Resp BP Pulse Ox 100.8 F H 100 H 20 170/90 H 98 11/07/17 05:31 11/07/17 05:00 11/07/17 05:00 11/07/17 05:00 11/07/17 05:00 Intake and Output: 11/07/17 11/07/17 06:59 18:59 Intake Total 760 Output Total 850 Balance -90 - Medications Medications: Current Medications Amantadine HCl (Symmetrel) 100 mg PO DAILY [facility] Last Admin: 11/06/17 10:14 Dose: 100 mg Ascorbic Acid (Vitamin C 500 Mg Tab) 500 mg GT DAILY [facility] Last Admin: 11/06/17 10:15 Dose: 500 mg Cyanocobalamin (Vitamin B12 1000 Mcg Tab) 1,000 mcg GT DAILY [facility] Last Admin: 11/06/17 10:19 Dose: 1,000 mcg Dextrose (Dextrose 50% Inj) 0 ml IV STAT PRN; Protocol PRN Reason: Hypoglycemia Protocol Dextrose (Glutose 15) 0 gm GT ONCE PRN; Protocol PRN Reason: Hypoglycemia Protocol Glucagon (Glucagen Diagnostic Kit) 0 mg IM STAT PRN; Protocol PRN Reason: Hypoglycemia Protocol Valproate Sodium 500 mg/ (Sodium Chloride) 105 mls @ 100 mls/hr IVPB Q12H [facility] Last Admin: 11/03/17 01:14 Dose: 100 mls/hr Insulin Aspart (Novolog) 0 unit SC Q6H MOLLY PRN Reason: Protocol Last Admin: 11/07/17 06:21 Dose: 10 units Insulin Detemir (Levemir) 30 unit SC Q12H [facility] Latanoprost (Xalatan Opht) 0 ml OU HS [facility] Last Admin: 11/06/17 22:10 Dose: 2.5 ml Losartan Potassium (Cozaar) 25 mg NG DAILY [facility] Multivitamins (Hexavitamin) 1 tab GT DAILY [facility] Last Admin: 11/06/17 10:14 Dose: 1 tab Ondansetron HCl (Zofran Inj) 4 mg IVP Q6H PRN PRN Reason: Nausea/Vomiting Pantoprazole Sodium (Protonix Inj) 40 mg IVP DAILY [facility] Last Admin: 11/06/17 10:15 Dose: 40 mg Thiamine HCl (Vitamin B1 Tab) 100 mg GT BID [facility] Last Admin: 11/06/17 17:39 Dose: 100 mg - Labs Labs: 11/06/17 06:23 11/06/17 06:23 PT 13.0 SECONDS (9.7-12.2) H 10/23/17 04:53 INR 1.2 10/23/17 04:53 APTT 24 SECONDS (21-34) 10/23/17 04:53 - ENT Exam ENT Exam: Mucous Membranes Moist - Respiratory Exam Respiratory Exam: Clear to Ausculation Bilateral, NORMAL BREATHING PATTERN - Cardiovascular Exam Cardiovascular Exam: REGULAR RHYTHM, +S1, +S2 - GI/Abdominal Exam GI & Abdominal Exam: Soft, Normal Bowel Sounds - Extremities Exam Extremities Exam: Normal Inspection. absent: Joint Swelling - Back Exam Additional comments: No rash, or skin breakage noted. - Neurological Exam Neurological Exam: Alert, Awake. absent: Oriented x3 - Psychiatric Exam Psychiatric exam: Flat Affect - Skin Skin Exam: Intact, Normal Color, Warm Assessment and Plan - Assessment and Plan (Free Text) Plan: 1. Altered mental status S/P [employer] shunt revision and History of hydrocephalus 11/07: - Fevers w/ Tmax 101.7F, 1 time tylenol 650mg given - per ID recs, Vancomycin 1gm Q12H & Meropenem 1gm Q8H - F/u vanc troph 7/5 AM - F/u chest XRAY - F/u Venous duplex Neurosurgery Dr Hancock/Ella is consulted ID Dr. Milton consulted Neurology consulted, Dr. Nixon Initial [employer] Shunt placed in 2014 Past history of [employer] Shunt repair 02/26/17 Multiple [employer] shunt revision during this hospitalization- 3rd this hospital stay (10/10/2017, 10/11/2017, 10/19/2017, 10/23/2017) Very slow mental status improvement Valproate 500mg IVP Q12H - decreased dose from 1000mg on 11/02 to see if this improves mental status - HOLDING since 11/03 Previous Teague cultures - negative to date off perioperative antibiotics Please see CT imagine in the chart Repeat head ct 11/01 (ordered due to lack of improvement in mental status): unchanged from previous 2. Dysphagia and change in mental status/lethargic getting NG feeding aspiration precaution swallowing evaluation pending 3.Hypertension 11/07: Continue to monitor BP Losartan 25mg started 11/06 monitor electrolytes 4. Diabetes mellitus 11/07: Increased Levemir to 33 units BID High sugar likely due to tube feeding 5.Prophylactic measure - SCDs - Protonix 40mg IV daily - Right TLC placed 10/23/17 <Jessica Parsons - Last Filed: 11/07/17 20:51> Objective - Vital Signs/Intake and Output Vital Signs (last 24 hours): Temp Pulse Resp BP Pulse Ox 98.1 F 102 H 20 122/70 98 11/07/17 15:00 11/07/17 16:35 11/07/17 15:00 11/07/17 15:00 11/07/17 15:00 Intake and Output: 11/07/17 11/08/17 18:59 06:59 Intake Total 200 Balance 200 - Medications Medications: Current Medications Amantadine HCl (Symmetrel) 100 mg PO DAILY [facility] Last Admin: 11/07/17 09:35 Dose: 100 mg Ascorbic Acid (Vitamin C 500 Mg Tab) 500 mg GT DAILY [facility] Last Admin: 11/07/17 09:35 Dose: 500 mg Cyanocobalamin (Vitamin B12 1000 Mcg Tab) 1,000 mcg GT DAILY [facility] Last Admin: 11/07/17 09:40 Dose: 1,000 mcg Dextrose (Dextrose 50% Inj) 0 ml IV STAT PRN; Protocol PRN Reason: Hypoglycemia Protocol Dextrose (Glutose 15) 0 gm GT ONCE PRN; Protocol PRN Reason: Hypoglycemia Protocol Glucagon (Glucagen Diagnostic Kit) 0 mg IM STAT PRN; Protocol PRN Reason: Hypoglycemia Protocol Valproate Sodium 500 mg/ (Sodium Chloride) 105 mls @ 100 mls/hr IVPB Q12H [facility] Last Admin: 11/03/17 01:14 Dose: 100 mls/hr Meropenem 1 gm/ Sodium (Chloride) 100 mls @ 100 mls/hr IVPB Q8 MOLLY PRN Reason: Protocol Last Admin: 11/07/17 15:26 Dose: 100 mls/hr Vancomycin/Sodium Chloride (Vancomycin 1 Gm/Ns 200 Ml) 1 gm in 200 mls @ 133.333 mls/hr IVPB Q12H [facility] PRN Reason: Protocol Stop: 11/12/17 13:01 Last Admin: 11/07/17 13:35 Dose: 133.333 mls/hr Insulin Aspart (Novolog) 0 unit SC Q6H [facility] PRN Reason: Protocol Last Admin: 11/07/17 18:14 Dose: 6 units Insulin Detemir (Levemir) 35 unit SC Q12H [facility] Latanoprost (Xalatan Opht) 0 ml OU HS [facility] Last Admin: 11/06/17 22:10 Dose: 2.5 ml Losartan Potassium (Cozaar) 25 mg NG DAILY [facility] Last Admin: 11/07/17 09:40 Dose: 25 mg Multivitamins (Hexavitamin) 1 tab GT DAILY [facility] Last Admin: 11/07/17 09:35 Dose: 1 tab Ondansetron HCl (Zofran Inj) 4 mg IVP Q6H PRN PRN Reason: Nausea/Vomiting Pantoprazole Sodium (Protonix Inj) 40 mg IVP DAILY [facility] Last Admin: 11/07/17 09:34 Dose: 40 mg Thiamine HCl (Vitamin B1 Tab) 100 mg GT BID [facility] Last Admin: 11/07/17 17:34 Dose: 100 mg - Labs Labs: 11/07/17 07:41 11/07/17 07:41 PT 13.0 SECONDS (9.7-12.2) H 10/23/17 04:53 INR 1.2 10/23/17 04:53 APTT 24 SECONDS (21-34) 10/23/17 04:53 Attending/Attestation - Attestation I have personally seen and examined this patient.: Yes I have fully participated in the care of the patient.: Yes I have reviewed all pertinent clinical information, including history, physical exam and plan: Yes Notes (Text): Seen and examined by me Patient has fever,clear lungs,abdomen obese,soft and nontender,no cellulites,no picc line,no faley cath,scalp wound is clean with clayton d/w DR Milton and started on antibiotics after blood and urine cultures,Venous doppler negative for DVT, spoke to patient's daughter I agree with the assessment and the plan.
[2017-11-07 07:52] LABS: BASO # 0.1 K/uL (0.0-0.2); EOS # 0.1 K/uL (0.0-0.7); HEMOGLOBIN 12.4 g/dL (11.0-16.0); LYMPH # 1.9 K/uL (1.0-4.3); LYMPH % 22.2 % (20.0-40.0); MEAN CELL VOLUME 87.8 fL (81.0-99.0); MEAN CORPUSCULAR HEMOGLOBIN 29.4 pg (27.0-31.0); MEAN CORPUSCULAR HGB CONC 33.5 g/dL (33.0-37.0); MEAN PLATELET VOLUME 8.3 fL (7.2-11.7); MONO # 0.7 K/uL (0.0-0.8); MONO % 8.2 % (0.0-10.0); NEUT # 5.9 K/uL (1.8-7.0); NEUT % 67.6 % (50.0-75.0); NRBC % 0.1 % (0.0-2.0); RBC 4.22 Mil/uL (3.80-5.20); WHITE BLOOD COUNT 8.7 K/uL (4.8-10.8)
[2017-11-07] MEDS ORDERED: Insulin Detemir 100 units/ml Vial (Levemir) SC SCH (08:00)
[2017-11-07 08:47] LABS: ALB/GLOB RATIO 1.1 (1.0-2.1); ALBUMIN 3.5 g/dL (3.5-5.0); ALT/SGPT 32 U/L (9-52); AST/SGOT 32 U/L (14-36); BLOOD UREA NITROGEN 35 mg/dL (7-17); CALCIUM 8.9 mg/dl (8.6-10.4); GFR AFRICAN-AMERICAN > 60; GFR NON-AFRICAN AMERICAN > 60
[2017-11-07] MEDS: Multiple Vitamins Tab GT SCH (09:35)
[2017-11-07] MEDS: Amantadine 50 mg/5 ml Syrup (473 ml) PO SCH (09:35)
--- NOTE | 2017-11-07 11:55 | RAD ---
HISTORY: unknown source of fever COMPARISON: Chest radiograph dated 10/23/2017. FINDINGS: LUNGS: Prominence of pulmonary vasculature may be secondary to AP technique and/or pulmonary vascular congestion. PLEURA: No significant pleural effusion identified, no pneumothorax apparent. CARDIOVASCULAR: Normal. OSSEOUS STRUCTURES: Unchanged. VISUALIZED UPPER ABDOMEN: Normal. OTHER FINDINGS: Enteric tube with tip in the stomach. IMPRESSION: Prominence of the pulmonary vasculature may be secondary to AP technique and/or pulmonary vascular congestion. No focal consolidation or pleural effusion.
[2017-11-07] MEDS: Vancomycin 1 gm/NS 200 ml 1 GM/200 ML BAG IVPB SCH (13:35)
[2017-11-07 14:10] LABS: SQUAMOUS EPITHIAL 3 /hpf (0-5); URINE BILIRUBIN NEGATIVE (NEGATIVE); URINE BLOOD NEGATIVE (NEGATIVE); URINE CLARITY Hazy (Clear); URINE COLOR Yellow (YELLOW); URINE GLUCOSE (UA) 3+ mg/dL (Normal); URINE LEUKOCYTE ESTERASE NEG Leu/uL (Negative); URINE PROTEIN NEGATIVE (NEGATIVE); URINE UROBILINOGEN NORMAL mg/dL (0.2-1.0)
[2017-11-07] MEDS: Meropenem 1 GM in Sodium Chloride 0.9% 100 ML IVPB SCH ×2 (15:26→21:47)
--- NOTE | 2017-11-07 16:23 | VASCLAB ---
PROCEDURE: Lower Extremity Venous Duplex Exam. HISTORY: Fever, bedridden, r/o DVT PRIORS: None. TECHNIQUE: Bilateral common femoral, femoral, popliteal and posterior tibial, peroneal and great saphenous veins were evaluated. Flow was assessed with color Doppler, compressibility, assessment of phasic flow and augmentation response. Report prepared by STEFFANY Gamble FINDINGS: RIGHT: 1. Common Femoral Vein: 1.1. Compressibility - Fully compressible: Thrombus - None : Flow - Phasic: Augmentation -Normal: Reflux - None. 2. Femoral Vein: 2.1. Compressibility - Fully compressible: Thrombus - None : Flow - Phasic: Augmentation -Normal: Reflux - None. 3. Popliteal Vein: 3.1. Unable to examine 4. Posterior Tibial Vein: 4.1. Compressibility - Fully compressible: Thrombus - None: Flow - Phasic: Augmentation -Normal: Reflux - None. 5. Peroneal Vein: 5.1. Compressibility - Fully compressible: Thrombus - None: Flow - Phasic: Augmentation -Normal: Reflux - None. 6. Great Saphenous Vein: 6.1. Compressibility - Fully compressible: Thrombus - None: Flow - Phasic: Augmentation - Normal: Reflux - None. LEFT: 1. Common Femoral Vein: 1.1. Unable to examine 2. Femoral Vein: 2.1. Compressibility - Fully compressible: Thrombus - None: Flow - Phasic: Augmentation -Normal: Reflux - None. 3. Popliteal Vein: 3.1. Compressibility - Fully compressible: Thrombus - None : Flow - Phasic: Augmentation -Normal: Reflux - None. 4. Posterior Tibial Vein: 4.1. Compressibility - Fully compressible: Thrombus - None: Flow - Phasic: Augmentation -Normal: Reflux - None. 5. Peroneal Vein: 5.1. Compressibility - Fully compressible: Thrombus - None: Flow - Phasic: Augmentation -Normal: Reflux - None. 6. Great Saphenous Vein: 6.1. Compressibility - Fully compressible: Thrombus - None: Flow - Phasic: Augmentation - Normal: Reflux - None. OTHER FINDINGS: None. IMPRESSION: 1. No evidence of venous thrombosis in bilateral lower extremities, for examined veins named above. 2. Limited study, due to patient limited positioning.
--- NOTE | 2017-11-07 17:39 | CP.PCM.PN ---
Subjective - Date & Time of Evaluation Date of Evaluation: 11/07/17 Time of Evaluation: 03:10 - Subjective Subjective: dictated Objective - Vital Signs/Intake and Output Vital Signs (last 24 hours): Temp Pulse Resp BP Pulse Ox 98.1 F 102 H 20 122/70 98 11/07/17 15:00 11/07/17 16:35 11/07/17 15:00 11/07/17 15:00 11/07/17 15:00 Intake and Output: 11/07/17 11/07/17 06:59 18:59 Intake Total 760 200 Output Total 850 Balance -90 200 - Medications Medications: Current Medications Amantadine HCl (Symmetrel) 100 mg PO DAILY [facility] Last Admin: 11/07/17 09:35 Dose: 100 mg Ascorbic Acid (Vitamin C 500 Mg Tab) 500 mg GT DAILY [facility] Last Admin: 11/07/17 09:35 Dose: 500 mg Cyanocobalamin (Vitamin B12 1000 Mcg Tab) 1,000 mcg GT DAILY [facility] Last Admin: 11/07/17 09:40 Dose: 1,000 mcg Dextrose (Dextrose 50% Inj) 0 ml IV STAT PRN; Protocol PRN Reason: Hypoglycemia Protocol Dextrose (Glutose 15) 0 gm GT ONCE PRN; Protocol PRN Reason: Hypoglycemia Protocol Glucagon (Glucagen Diagnostic Kit) 0 mg IM STAT PRN; Protocol PRN Reason: Hypoglycemia Protocol Valproate Sodium 500 mg/ (Sodium Chloride) 105 mls @ 100 mls/hr IVPB Q12H [facility] Last Admin: 11/03/17 01:14 Dose: 100 mls/hr Meropenem 1 gm/ Sodium (Chloride) 100 mls @ 100 mls/hr IVPB Q8 MOLLY PRN Reason: Protocol Last Admin: 11/07/17 15:26 Dose: 100 mls/hr Vancomycin/Sodium Chloride (Vancomycin 1 Gm/Ns 200 Ml) 1 gm in 200 mls @ 133.333 mls/hr IVPB Q12H [facility] PRN Reason: Protocol Stop: 11/12/17 13:01 Last Admin: 11/07/17 13:35 Dose: 133.333 mls/hr Insulin Aspart (Novolog) 0 unit SC Q6H MOLLY PRN Reason: Protocol Last Admin: 11/07/17 12:38 Dose: 8 units Insulin Detemir (Levemir) 35 unit SC Q12H [facility] Latanoprost (Xalatan Opht) 0 ml OU HS [facility] Last Admin: 11/06/17 22:10 Dose: 2.5 ml Losartan Potassium (Cozaar) 25 mg NG DAILY [facility] Last Admin: 11/07/17 09:40 Dose: 25 mg Multivitamins (Hexavitamin) 1 tab GT DAILY [facility] Last Admin: 11/07/17 09:35 Dose: 1 tab Ondansetron HCl (Zofran Inj) 4 mg IVP Q6H PRN PRN Reason: Nausea/Vomiting Pantoprazole Sodium (Protonix Inj) 40 mg IVP DAILY [facility] Last Admin: 11/07/17 09:34 Dose: 40 mg Thiamine HCl (Vitamin B1 Tab) 100 mg GT BID [facility] Last Admin: 11/07/17 17:34 Dose: 100 mg - Labs Labs: 11/07/17 07:41 11/07/17 07:41 PT 13.0 SECONDS (9.7-12.2) H 10/23/17 04:53 INR 1.2 10/23/17 04:53 APTT 24 SECONDS (21-34) 10/23/17 04:53
[2017-11-07] MEDS: Insulin Detemir 100 units/ml Vial (Levemir) SC SCH (20:53)
[2017-11-07] MEDS: Latanoprost 2.5 ml Opht Soln OU SCH (21:48)
--- NOTE | 2017-11-07 23:47 | PN ---
DATE: 11/07/2017 SUBJECTIVE: This patient is known to me as he has been here for a long time and I have followed her briefly off and on. She was afebrile before. Postop, she had a stent placed from the right side and then right side did not work and she had it done on the left side. The family members at the bedside says that she is not communicating much. She is mostly drowsy since the last updation and there was some air problem at that time and then she was put on 100% oxygen and multiple CAT scans were repeated and then the air was decreasing at that point. I stopped seeing her because she was afebrile and IV antibiotics were discontinued. She was supposed to go to [facility] according to the primary and she spiked a temp, and so I am asked to see her. PHYSICAL EXAMINATION: VITAL SIGNS: The patient is drowsy. Temperature was 99, 99.3, 97.4, 99.2 max and right now last she had a T-max of 101.7 this morning and 100.8 yesterday. T-max now 98.1, heart rate was 108, blood pressure 122/70, respirations are 20. GENERAL: She remains with an NG tube. She is on oxygen and she is kind of still mostly drowsy. She however follows simple command. I asked her to squeeze my hand and she was able to do that. HEENT: Head: They removed the sutures on the left parietal area and there are still some sutures left on her scalp, which will be removed whenever Dr. Fer Hancock comes around. NECK: Supple. LUNGS: Clear. No crackles or rales present. HEART: S1, S2 are regular. ABDOMEN: Soft. Nontender. No guarding. No rigidity present. EXTREMITIES: She has Venodyne boots. The patient is also being followed by Neurology. Neurology notes states yesterday that she was awake, verbalized few words and wass unable to otherwise verbalize much and just followed very simple commands. Today, she spiked a temperature, not able to get much out of her. Sutures which were removed, the scalp area appears unremarkable. I also suggested them to get venous Dopplers in the lower extremities. She had septic workup done. LABORATORY DATA: Labs show white count is 8.7, hemoglobin 12.4, hematocrit 37.1, platelet count is 326. D-dimers of 50 and 57. Sodium 144, potassium 4.3, chloride 103, CO2 is 30, BUN 35, creatinine is 0.7. UA is negative with 3+ glucosuria, so we need to control her sugars. Valproic acid now is 83.3, normal is between 50 and 100, so that is stable. Chemistry showed sodium 144, potassium 4.3, chloride is 103, CO2 is 30, BUN is 35, anion gap is 15. Septic workup has been done. There are reports of her chest ray and Dopplers. Dopplers were done right and left. No evidence of venous thrombosis in bilateral lower extremities. The Dopplers are negative. Chest x-ray done today shows prominence of pulmonary vascular congestion may be secondary to AP technique or pulmonary vascular congestion. No focal consolidation or pleural effusion. There is some congestion. Head CT was done on 11/06/2017, which shows no new intracranial hemorrhage. There is re-demonstration of mild periventricular hypodensities which may represent microangiopathic changes or periventricular edema. No mass effect or territorial infarction. On impression it says no acute intracranial abnormality, re-demonstration of moderate ventriculomegaly with stable position of left parietal shunt catheter and minimal layering intraventricular hemorrhage. She did not have fever for so many days and spiked today. We will look into it. Septic workup has been ordered. I have re-ordered vancomycin and meropenem at this time that were held. She is post multiple surgical interventions on her brain with [employer] shunt, mechanical problems. At this time also she has had NG tube for the longest. She should rule out sinusitis. If cultures came out negative and then also I would like to send the blood culture tomorrow morning for fungus. Even though the possibility is remote, but I will so, and we will follow. We will continue with vancomycin and meropenem at this time and will follow with other consultants on this team. She is with fever. We also would order a procalcitonin level for the next a.m. Naga Milton MD
[2017-11-08] MEDS: (Novolog) Insulin Aspart, Recombinant 100 u/ml 10 ml vial SC SCH ×4 (00:02→18:07)
[2017-11-08] MEDS: Vancomycin 1 gm/NS 200 ml 1 GM/200 ML BAG IVPB SCH ×2 (00:03→12:18)
[2017-11-08] MEDS ORDERED: Acetaminophen 650mg/20.3ml solution UD PO STA (04:30)
[2017-11-08] MEDS: Meropenem 1 GM in Sodium Chloride 0.9% 100 ML IVPB SCH ×3 (05:26→21:03)
--- NOTE | 2017-11-08 06:56 | CP.PCM.PN ---
<Calvin Small M - Last Filed: 11/08/17 20:36> Subjective - Date & Time of Evaluation Date of Evaluation: 11/08/17 Time of Evaluation: 07:30 - Subjective Subjective: PGY1 Resident Note for Dr. Parsons Pt seen and examined at bedside. Pt lying in bed, non verbal, minimally opening eyes. Pt continues to have fever spikes, (Hbzd219.0). Pt is unable to give any verbal cues or state any complaints. Objective - Vital Signs/Intake and Output Vital Signs (last 24 hours): Temp Pulse Resp BP Pulse Ox 101.8 F H 107 H 20 149/84 95 11/08/17 04:40 11/08/17 04:10 11/08/17 04:10 11/08/17 04:10 11/08/17 04:10 Intake and Output: 11/07/17 11/08/17 18:59 06:59 Intake Total 200 760 Output Total 150 Balance 200 610 - Medications Medications: Current Medications Amantadine HCl (Symmetrel) 100 mg PO DAILY [facility] Last Admin: 11/07/17 09:35 Dose: 100 mg Ascorbic Acid (Vitamin C 500 Mg Tab) 500 mg GT DAILY [facility] Last Admin: 11/07/17 09:35 Dose: 500 mg Cyanocobalamin (Vitamin B12 1000 Mcg Tab) 1,000 mcg GT DAILY [facility] Last Admin: 11/07/17 09:40 Dose: 1,000 mcg Dextrose (Dextrose 50% Inj) 0 ml IV STAT PRN; Protocol PRN Reason: Hypoglycemia Protocol Dextrose (Glutose 15) 0 gm GT ONCE PRN; Protocol PRN Reason: Hypoglycemia Protocol Glucagon (Glucagen Diagnostic Kit) 0 mg IM STAT PRN; Protocol PRN Reason: Hypoglycemia Protocol Valproate Sodium 500 mg/ (Sodium Chloride) 105 mls @ 100 mls/hr IVPB Q12H [facility] Last Admin: 11/03/17 01:14 Dose: 100 mls/hr Meropenem 1 gm/ Sodium (Chloride) 100 mls @ 100 mls/hr IVPB Q8 [facility] PRN Reason: Protocol Last Admin: 11/08/17 05:26 Dose: 100 mls/hr Vancomycin/Sodium Chloride (Vancomycin 1 Gm/Ns 200 Ml) 1 gm in 200 mls @ 133.333 mls/hr IVPB Q12H [facility] PRN Reason: Protocol Stop: 11/12/17 13:01 Last Admin: 11/08/17 00:03 Dose: 133.333 mls/hr Insulin Aspart (Novolog) 0 unit SC Q6H [facility] PRN Reason: Protocol Last Admin: 11/08/17 06:40 Dose: 8 units Insulin Detemir (Levemir) 35 unit SC Q12H [facility] Last Admin: 11/07/17 20:53 Dose: 35 units Latanoprost (Xalatan Opht) 0 ml OU HS [facility] Last Admin: 11/07/17 21:48 Dose: Not Given Losartan Potassium (Cozaar) 25 mg NG DAILY [facility] Last Admin: 11/07/17 09:40 Dose: 25 mg Multivitamins (Hexavitamin) 1 tab GT DAILY [facility] Last Admin: 11/07/17 09:35 Dose: 1 tab Ondansetron HCl (Zofran Inj) 4 mg IVP Q6H PRN PRN Reason: Nausea/Vomiting Pantoprazole Sodium (Protonix Inj) 40 mg IVP DAILY [facility] Last Admin: 11/07/17 09:34 Dose: 40 mg Thiamine HCl (Vitamin B1 Tab) 100 mg GT BID [facility] Last Admin: 11/07/17 17:34 Dose: 100 mg - Labs Labs: 11/07/17 07:41 11/07/17 07:41 PT 13.0 SECONDS (9.7-12.2) H 10/23/17 04:53 INR 1.2 10/23/17 04:53 APTT 24 SECONDS (21-34) 10/23/17 04:53 - Head Exam Additional comments: Pt has incision baig from PARK RANGER shunt repaits on superior aspect of head, bilaterally - Eye Exam Pupil Exam: PERRL Additional comments: Pt unable to open eyes on verbal cues. - ENT Exam ENT Exam: Mucous Membranes Moist - Respiratory Exam Respiratory Exam: Clear to Ausculation Bilateral, NORMAL BREATHING PATTERN - Cardiovascular Exam Cardiovascular Exam: REGULAR RHYTHM, +S1, +S2 - GI/Abdominal Exam GI & Abdominal Exam: Distended Additional comments: Pt abdomen distended and positive tympanic sounds. - Extremities Exam Extremities Exam: Normal Inspection - Neurological Exam Neurological Exam: absent: Alert, Awake, Oriented x3 - Skin Skin Exam: Intact, Normal Color Assessment and Plan - Assessment and Plan (Free Text) Plan: 1. Altered mental status S/P PARK RANGER shunt revision and History of hydrocephalus 11/08: -Fever spikes w/ Tmax 102.0F, tylenol 650mg PRN -Possible spinal tap 11/09 for fungal source of infxn -Continue Abx -Urine culture no significant bacteria -Blood cultures no growth post 24 hrs 11/07: - Fevers w/ Tmax 101.7F, 1 time tylenol 650mg given - per ID recs, Vancomycin 1gm Q12H & Meropenem 1gm Q8H - F/u vanc troph 7 AM - F/u chest XRAY - F/u Venous duplex Neurosurgery Dr Hancock/Ella is consulted ID Dr. Bergeron consulted Neurology consulted, Dr. Nixon Initial PARK RANGER Shunt placed in 2014 Past history of PARK RANGER Shunt repair 02/26/17 Multiple PARK RANGER shunt revision during this hospitalization- 3rd this hospital stay (10/10/2017, 10/11/2017, 10/19/2017, 10/23/2017) Very slow mental status improvement Valproate 500mg IVP Q12H - decreased dose from 1000mg on 11/02 to see if this improves mental status - HOLDING since 11/03 Previous Teague cultures - negative to date off perioperative antibiotics Please see CT imagine in the chart Repeat head ct 11/01 (ordered due to lack of improvement in mental status): unchanged from previous 2. Dysphagia and change in mental status/lethargic 11/08: -NPO due to psuedo-obstructions -aspiration precaution -swallowing evaluation pending 3. Hypertension 11/07: Continue to monitor BP - Losartan 25mg started 11/06 - monitor electrolytes 4. Diabetes mellitus 11/08: - Increased Levemir to 40 units BID - held in PM due NPO - High sugar likely due to tube feeding - held - f/u with sales team leader for recs 11/07: - Increased Levemir to 33 units BID - High sugar likely due to tube feeding 5. Abdominal Distention 11/08: - F/u obstructive series xray - Stop NG feeds, flat Xray indicate pseudo-obstruction - NS 100mls/hr for hydration 6.Prophylactic measure - SCDs - Protonix 40mg IV daily - Right TLC placed 10/23/17 <Jessica Parsons - Last Filed: 11/09/17 07:49> Objective - Vital Signs/Intake and Output Vital Signs (last 24 hours): Temp Pulse Resp BP Pulse Ox 99.5 F 93 H 20 139/75 95 11/09/17 04:05 11/09/17 04:13 11/09/17 04:05 11/09/17 04:05 11/09/17 04:05 Intake and Output: 11/09/17 11/09/17 06:59 18:59 Intake Total 1305 Output Total 400 Balance 905 - Medications Medications: Current Medications Acetaminophen (Tylenol 650mg/20.3ml Solution Ud) 650 mg PO Q6 PRN PRN Reason: Temperature Last Admin: 11/08/17 11:34 Dose: 650 mg Amantadine HCl (Symmetrel) 100 mg PO DAILY [facility] Last Admin: 11/08/17 10:28 Dose: 100 mg Ascorbic Acid (Vitamin C 500 Mg Tab) 500 mg GT DAILY [facility] Last Admin: 11/08/17 10:30 Dose: 500 mg Cyanocobalamin (Vitamin B12 1000 Mcg Tab) 1,000 mcg GT DAILY [facility] Last Admin: 11/08/17 10:29 Dose: 1,000 mcg Dextrose (Dextrose 50% Inj) 0 ml IV STAT PRN; Protocol PRN Reason: Hypoglycemia Protocol Dextrose (Glutose 15) 0 gm GT ONCE PRN; Protocol PRN Reason: Hypoglycemia Protocol Glucagon (Glucagen Diagnostic Kit) 0 mg IM STAT PRN; Protocol PRN Reason: Hypoglycemia Protocol Valproate Sodium 500 mg/ (Sodium Chloride) 105 mls @ 100 mls/hr IVPB Q12H [facility] Last Admin: 11/03/17 01:14 Dose: 100 mls/hr Meropenem 1 gm/ Sodium (Chloride) 100 mls @ 100 mls/hr IVPB Q8 [facility] PRN Reason: Protocol Last Admin: 11/09/17 05:26 Dose: 100 mls/hr Vancomycin/Sodium Chloride (Vancomycin 1 Gm/Ns 200 Ml) 1 gm in 200 mls @ 133.333 mls/hr IVPB Q12H [facility] PRN Reason: Protocol Stop: 11/12/17 13:01 Last Admin: 11/09/17 00:47 Dose: 133.333 mls/hr Sodium Chloride (Sodium Chloride 0.9%) 1,000 mls @ 100 mls/hr IV .Q10H [facility] Last Admin: 11/08/17 18:24 Dose: 100 mls/hr Insulin Aspart (Novolog) 0 unit SC Q6H [facility] PRN Reason: Protocol Last Admin: 11/09/17 06:49 Dose: 6 units Insulin Detemir (Levemir) 40 unit SC Q12H [facility] Last Admin: 11/08/17 17:53 Dose: Not Given Latanoprost (Xalatan Opht) 0 ml OU HS [facility] Last Admin: 11/08/17 21:04 Dose: 1 ml Losartan Potassium (Cozaar) 25 mg NG DAILY [facility] Last Admin: 11/08/17 10:30 Dose: 25 mg Multivitamins (Hexavitamin) 1 tab GT DAILY [facility] Last Admin: 11/08/17 10:30 Dose: 1 tab Ondansetron HCl (Zofran Inj) 4 mg IVP Q6H PRN PRN Reason: Nausea/Vomiting Pantoprazole Sodium (Protonix Inj) 40 mg IVP DAILY [facility] Last Admin: 11/08/17 10:29 Dose: 40 mg Thiamine HCl (Vitamin B1 Tab) 100 mg GT BID [facility] Last Admin: 11/08/17 18:24 Dose: 100 mg - Labs Labs: 11/08/17 08:24 11/08/17 08:24 PT 13.0 SECONDS (9.7-12.2) H 10/23/17 04:53 INR 1.2 10/23/17 04:53 APTT 24 SECONDS (21-34) 10/23/17 04:53 Attending/Attestation - Attestation I have personally seen and examined this patient.: Yes I have fully participated in the care of the patient.: Yes I have reviewed all pertinent clinical information, including history, physical exam and plan: Yes Notes (Text): Seen and examined by me. Had long discussion with her daughter at bedside patient was seen in the morning and the afternoon. She was lethargic but arousable and following commands like extremities and talking in very soft voice "I am OK". No eye contacks,looking sick No sob,no vomting,She was getting feeding the night before. had BM in the morning,No cellulitis,no IV site or surgical site infection noted,Lungs no whheze,no rales,abdomen distended,nontender,soft,hyperresonance on percussion, has good bowel sound, she is lethargic but arousable with no focal weakness Having fever spikes,cutures were negative(urine low colonies with pseudomonas) chest x ray-no infiltrate,DVT negative ,Procalcitonin Discussed with Dr bergeron about fever spikes Spoke to Dr Morris about fever spikes and infectious disease recommendation. Dr Morris is planning to tap tomorrow we will continue merrem and vanco as per ID. Not decided to start on Micafungin today. we will decide after tap Abdominal x ray-shows distended bowel/Ilius. I will hold feeding and start on IV fluids. Discussed with surgery resident.We will discuss with surgery team. ( Dr Monroe was in the case with neurosurgery to change peritoneal part of PARK RANGER shunt) Patient has NG tube for a long period,less likely start oral feeds soon. She needs a PEG.we will follow with surgery Assessment and the plan discussed with the resident and RN 1. 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
[2017-11-08] MEDS: Insulin Detemir 100 units/ml Vial (Levemir) SC SCH (08:31)
[2017-11-08 08:39] LABS: BASO # 0.1 K/uL (0.0-0.2); BASO % 0.9 % (0.0-2.0); EOS % 0.2 % (0.0-4.0); HEMOGLOBIN 12.8 g/dL (11.0-16.0); LYMPH % 20.6 % (20.0-40.0); MEAN CELL VOLUME 87.9 fL (81.0-99.0); MEAN CORPUSCULAR HEMOGLOBIN 29.4 pg (27.0-31.0); MEAN CORPUSCULAR HGB CONC 33.4 g/dL (33.0-37.0); MEAN PLATELET VOLUME 8.5 fL (7.2-11.7); MONO # 0.8 K/uL (0.0-0.8); MONO % 8.7 % (0.0-10.0); NEUT # 6.8 K/uL (1.8-7.0); NEUT % 69.6 % (50.0-75.0); RBC 4.35 Mil/uL (3.80-5.20); WHITE BLOOD COUNT 9.7 K/uL (4.8-10.8)
[2017-11-08 08:50] LABS: ALBUMIN 3.3 g/dL (3.5-5.0); ALT/SGPT 46 U/L (9-52); AST/SGOT 37 U/L (14-36); BLOOD UREA NITROGEN 39 mg/dL (7-17); CALCIUM 8.8 mg/dl (8.6-10.4); GFR AFRICAN-AMERICAN > 60; GFR NON-AFRICAN AMERICAN > 60
[2017-11-08] MEDS: Amantadine 50 mg/5 ml Syrup (473 ml) PO SCH (10:28)
[2017-11-08] MEDS: Multiple Vitamins Tab GT SCH (10:30)
[2017-11-08] MEDS ORDERED: POLYETHYLENE GLYCOL 3350 17 GM/Dose PACKET NG ONE (10:50)
[2017-11-08] MEDS ORDERED: Micafungin 100 MG in Sodium Chloride 0.9% 100 ML IV SCH (11:00)
--- NOTE | 2017-11-08 11:32 | RAD ---
HISTORY: distension COMPARISON: Abdominal radiographs dated 10/27/2017. FINDINGS: BOWEL: Diffuse colonic gaseous distention/ dilatation. No gross evidence of free air. BONES: Unchanged. OTHER FINDINGS: None. IMPRESSION: Diffuse colonic gaseous distension/ dilatation. Pseudo obstruction not excluded. No gross evidence of free intraperitoneal air.
[2017-11-08] MEDS: Acetaminophen 650mg/20.3ml solution UD PO PRN (11:34)
[2017-11-08] MEDS ORDERED: Insulin Detemir 100 units/ml Vial (Levemir) SC SCH (17:04)
[2017-11-08] MEDS: Sodium Chloride 0.9% 1,000 ML IV SCH (18:24)
[2017-11-08] MEDS: Latanoprost 2.5 ml Opht Soln OU SCH (21:04)
[2017-11-09] MEDS: Vancomycin 1 gm/NS 200 ml 1 GM/200 ML BAG IVPB SCH ×2 (00:47→13:32)
[2017-11-09] MEDS: (Novolog) Insulin Aspart, Recombinant 100 u/ml 10 ml vial SC SCH ×5 (01:22→23:53)
[2017-11-09] MEDS: Meropenem 1 GM in Sodium Chloride 0.9% 100 ML IVPB SCH ×3 (05:26→22:45)
--- NOTE | 2017-11-09 06:54 | CP.PCM.PN ---
<Calvin Small M - Last Filed: 11/09/17 20:38> Subjective - Date & Time of Evaluation Date of Evaluation: 11/09/17 Time of Evaluation: 07:35 - Subjective Subjective: PGY1 Resident Note for Dr. Parsons. Pt seen and examined at bedside. Pt is alert and responsive to verbal questions. Pt still unable to formulate complete sentences but is able to answer in yes/no questions. Pt denies head pain, chest pain, difficulty breathing, stomach pain. Per RN pt continued to have fever spikes (Tmax 101 @~midnight) and had 1 round of watery diarrhea when given tylenol rectal for fever. Objective - Vital Signs/Intake and Output Vital Signs (last 24 hours): Temp Pulse Resp BP Pulse Ox 99.5 F 93 H 20 139/75 95 11/09/17 04:05 11/09/17 04:13 11/09/17 04:05 11/09/17 04:05 11/09/17 04:05 Intake and Output: 11/08/17 11/09/17 18:59 06:59 Intake Total 600 1305 Output Total 220 400 Balance 380 905 - Medications Medications: Current Medications Acetaminophen (Tylenol 650mg/20.3ml Solution Ud) 650 mg PO Q6 PRN PRN Reason: Temperature Last Admin: 11/08/17 11:34 Dose: 650 mg Amantadine HCl (Symmetrel) 100 mg PO DAILY [facility] Last Admin: 11/08/17 10:28 Dose: 100 mg Ascorbic Acid (Vitamin C 500 Mg Tab) 500 mg GT DAILY [facility] Last Admin: 11/08/17 10:30 Dose: 500 mg Cyanocobalamin (Vitamin B12 1000 Mcg Tab) 1,000 mcg GT DAILY [facility] Last Admin: 11/08/17 10:29 Dose: 1,000 mcg Dextrose (Dextrose 50% Inj) 0 ml IV STAT PRN; Protocol PRN Reason: Hypoglycemia Protocol Dextrose (Glutose 15) 0 gm GT ONCE PRN; Protocol PRN Reason: Hypoglycemia Protocol Glucagon (Glucagen Diagnostic Kit) 0 mg IM STAT PRN; Protocol PRN Reason: Hypoglycemia Protocol Valproate Sodium 500 mg/ (Sodium Chloride) 105 mls @ 100 mls/hr IVPB Q12H [facility] Last Admin: 11/03/17 01:14 Dose: 100 mls/hr Meropenem 1 gm/ Sodium (Chloride) 100 mls @ 100 mls/hr IVPB Q8 [facility] PRN Reason: Protocol Last Admin: 11/09/17 05:26 Dose: 100 mls/hr Vancomycin/Sodium Chloride (Vancomycin 1 Gm/Ns 200 Ml) 1 gm in 200 mls @ 133.333 mls/hr IVPB Q12H [facility] PRN Reason: Protocol Stop: 11/12/17 13:01 Last Admin: 11/09/17 00:47 Dose: 133.333 mls/hr Sodium Chloride (Sodium Chloride 0.9%) 1,000 mls @ 100 mls/hr IV .Q10H [facility] Last Admin: 11/08/17 18:24 Dose: 100 mls/hr Insulin Aspart (Novolog) 0 unit SC Q6H [facility] PRN Reason: Protocol Last Admin: 11/09/17 06:49 Dose: 6 units Insulin Detemir (Levemir) 40 unit SC Q12H [facility] Last Admin: 11/08/17 17:53 Dose: Not Given Latanoprost (Xalatan Opht) 0 ml OU HS [facility] Last Admin: 11/08/17 21:04 Dose: 1 ml Losartan Potassium (Cozaar) 25 mg NG DAILY [facility] Last Admin: 11/08/17 10:30 Dose: 25 mg Multivitamins (Hexavitamin) 1 tab GT DAILY [facility] Last Admin: 11/08/17 10:30 Dose: 1 tab Ondansetron HCl (Zofran Inj) 4 mg IVP Q6H PRN PRN Reason: Nausea/Vomiting Pantoprazole Sodium (Protonix Inj) 40 mg IVP DAILY [facility] Last Admin: 11/08/17 10:29 Dose: 40 mg Thiamine HCl (Vitamin B1 Tab) 100 mg GT BID [facility] Last Admin: 11/08/17 18:24 Dose: 100 mg - Labs Labs: 11/08/17 08:24 11/08/17 08:24 PT 13.0 SECONDS (9.7-12.2) H 10/23/17 04:53 INR 1.2 10/23/17 04:53 APTT 24 SECONDS (21-34) 10/23/17 04:53 - Constitutional Appears: Well, No Acute Distress - Head Exam Additional comments: Pt has 2 closed incision sites from prior SURGERY SPECIALIST shunt. Incision sites are clean & dry & intact. Pt has NG tube in R nasal nare. - Eye Exam Eye Exam: Normal appearance Pupil Exam: PERRL - ENT Exam ENT Exam: Mucous Membranes Moist - Respiratory Exam Respiratory Exam: Clear to Ausculation Bilateral. absent: Rhonchi, Wheezes, Respiratory Distress - Cardiovascular Exam Cardiovascular Exam: +S1, +S2 - GI/Abdominal Exam GI & Abdominal Exam: Distended, Soft, Normal Bowel Sounds Additional comments: Abdomen is less distended than yesterday, however there is still some distention. - Extremities Exam Extremities Exam: Normal Inspection. absent: Tenderness Additional comments: B/L LE skin intact & has SCDs placed. Pt has 5/5 hand strength. - Neurological Exam Neurological Exam: Awake. absent: Oriented x3 - Skin Skin Exam: Dry, Normal Color Assessment and Plan - Assessment and Plan (Free Text) Assessment: 1. Fever of unknown origin 11/09: - Fever spikes continue w/ Tmax of 102.4, tylenol 650mg PRN - CSF collected from shunt - F/u results - Continue Abx, f/u ID recs - per GI, will wait for PEG insertion - CT showed left pleural effusion; however, pt is breathing w/ no difficulty - no therapy at this point, consider lasix if pt has difficulty breathing -Urine culture no significant bacteria -Blood cultures no growth post 48 hrs 11/08: -Fever spikes w/ Tmax 102.0F, tylenol 650mg PRN -Possible spinal tap 11/09 for fungal source of infxn -Continue Abx -Urine culture no significant bacteria -Blood cultures no growth post 24 hrs 11/07: - Fevers w/ Tmax 101.7F, 1 time tylenol 650mg given - per ID recs, Vancomycin 1gm Q12H & Meropenem 1gm Q8H - F/u vanc troph 11/09 AM - F/u chest XRAY - F/u Venous duplex 2. Abdominal Distention 11/09: - CT indicates no obstruction preset at anni 11/08: - F/u obstructive series xray - Stop NG feeds, flat Xray indicate pseudo-obstruction - NS 100mls/hr for hydration 3. Altered mental status S/P SURGERY SPECIALIST shunt revision and History of hydrocephalus Initial SURGERY SPECIALIST Shunt placed in 2014 Past history of SURGERY SPECIALIST Shunt repair 02/26/17 Multiple SURGERY SPECIALIST shunt revision during this hospitalization- 3rd this hospital stay (10/10/2017, 10/11/2017, 10/19/2017, 10/23/2017) Very slow mental status improvement Valproate 500mg IVP Q12H - decreased dose from 1000mg on 11/02 to see if this improves mental status - HOLDING since 11/03 Previous Teague cultures - negative to date off perioperative antibiotics Please see CT imagine in the chart Repeat head ct 11/01 (ordered due to lack of improvement in mental status): unchanged from previous 4. Dysphagia and change in mental status/lethargic 11/08: -NPO except for meds due to psuedo-obstructions -aspiration precaution -swallowing evaluation pending 5. Hypertension 11/09: - Blood pressure remains within acceptable range 11/07: Continue to monitor BP - Losartan 25mg started 11/06 - monitor electrolytes 6. Diabetes mellitus 11/09: - Levemer canceled, lantus 20 units QD started for better coverage - continue to follow glucose readings 11/08: - Increased Levemir to 40 units BID - held in PM due NPO - High sugar likely due to tube feeding - held - f/u with tile burner for recs 11/07: - Increased Levemir to 33 units BID - High sugar likely due to tube feeding 7.Prophylactic measure - SCDs - Protonix 40mg IV daily - Right TLC placed 10/23/17 <Jessica Parsons - Last Filed: 11/10/17 17:06> Objective - Vital Signs/Intake and Output Vital Signs (last 24 hours): Temp Pulse Resp BP Pulse Ox 102 F H 105 H 18 151/86 H 97 11/10/17 11:54 11/10/17 07:25 11/10/17 07:25 11/10/17 07:25 11/10/17 07:25 - Medications Medications: Current Medications Amantadine HCl (Symmetrel) 100 mg PO DAILY [facility] Last Admin: 11/10/17 12:22 Dose: 100 mg Ascorbic Acid (Vitamin C 500 Mg Tab) 500 mg GT DAILY [facility] Last Admin: 11/10/17 11:54 Dose: 500 mg Dextrose (Dextrose 50% Inj) 0 ml IV STAT PRN; Protocol PRN Reason: Hypoglycemia Protocol Dextrose (Glutose 15) 0 gm GT ONCE PRN; Protocol PRN Reason: Hypoglycemia Protocol Glucagon (Glucagen Diagnostic Kit) 0 mg IM STAT PRN; Protocol PRN Reason: Hypoglycemia Protocol Valproate Sodium 500 mg/ (Sodium Chloride) 105 mls @ 100 mls/hr IVPB Q12H [facility] Last Admin: 11/03/17 01:14 Dose: 100 mls/hr Meropenem 1 gm/ Sodium (Chloride) 100 mls @ 100 mls/hr IVPB Q8 [facility] PRN Reason: Protocol Last Admin: 11/10/17 14:38 Dose: 100 mls/hr Vancomycin/Sodium Chloride (Vancomycin 1 Gm/Ns 200 Ml) 1 gm in 200 mls @ 133.333 mls/hr IVPB Q12H [facility] PRN Reason: Protocol Stop: 11/12/17 13:01 Last Admin: 11/10/17 12:02 Dose: 133.333 mls/hr Micafungin Sodium 100 mg/ (Sodium Chloride) 100 mls @ 100 mls/hr IV Q24H [facility] PRN Reason: Protocol Last Admin: 11/09/17 17:59 Dose: 100 mls/hr Sodium Chloride (Sodium Chloride 0.45%) 1,000 mls @ 75 mls/hr IV .[id number] [facility] Stop: 11/10/17 23:49 Last Admin: 11/10/17 11:30 Dose: 75 mls/hr Insulin Aspart (Novolog) 0 unit SC Q6H [facility] PRN Reason: Protocol Last Admin: 11/10/17 13:00 Dose: 4 units Insulin Glargine (Lantus) 20 unit SC HS [facility] Last Admin: 11/09/17 22:46 Dose: 20 units Latanoprost (Xalatan Opht) 0 ml OU HS [facility] Last Admin: 11/09/17 22:47 Dose: 1 ml Losartan Potassium (Cozaar) 25 mg NG DAILY [facility] Last Admin: 11/10/17 11:55 Dose: 25 mg Pantoprazole Sodium (Protonix Susp) 40 mg GT DAILY [facility] Last Admin: 11/10/17 11:54 Dose: 40 mg - Labs Labs: 11/10/17 06:11 11/10/17 06:11 PT 13.0 SECONDS (9.7-12.2) H 10/23/17 04:53 INR 1.2 10/23/17 04:53 APTT 24 SECONDS (21-34) 10/23/17 04:53 Attending/Attestation - Attestation I have personally seen and examined this patient.: Yes I have fully participated in the care of the patient.: Yes I have reviewed all pertinent clinical information, including history, physical exam and plan: Yes Notes (Text): Patient was seen and examined in the morning and afternoon.She was more alert and responsive this morning. She was talking in soft voice with good eye contact. Denies pain, she knows that she is at hospital,denies sob,no abdominal pain,no chest pain. Her abdominal distension is little better. feeding on hold,continue normal saline and hydrate her ,s/p CT chest,abdomen and pelvis. Her lungs clear,abdomen soft and distended,nontender,hyper resonant,extremities without cellulitis or infection,patient has a external urinary cath/no faley cath Has NG tube in place. Discussed with Dr Rios about her SURGERY SPECIALIST shunt and cause of fever. He did the Tap.CSF is clear with low wbc/not the sauce of infection. Her shunt is in pleural cavity. He also agrees to do CT scans to look for peritoneal infection/ abscess Had a long discussion with Dr Bergeron . We got CT sinus,CT chest,abd,pelvis. No sauce of infection noted,little effusion note on the left side. I will discuss with pulmonary. Dr bergeron started on Micafungin today I discussed with Dr carbajal about her fever , abdominal distension and PEG. She is recommending to get Gastro enterologist for peg placement. Discussed with Dr burgos . He will see the pt. His recommendation to to place peg once her fever come down/treat infection Assessment and the plan discussed with the patient's daughter over the phone. d/w Resident and I agrees with the documentation
--- NOTE | 2017-11-09 07:34 | CP.PCM.PN ---
Subjective - Date & Time of Evaluation Date of Evaluation: 11/09/17 Time of Evaluation: 07:34 - Subjective Subjective: Ms. Diaz was seen and examined at the bedside. She is awake, verbalize few words such as " sajan, muy samantha, and able to state her name"able to answer some questions and denies any headache, dizziness, lightheadedness, nausea, or vomiting. She is easily response ( opening her eyes) to verbal stimuli.She is unable to verbalize place and time and very slow to talk. She is able to follow simple commands and uses her hand gesture to answer questions.with her lower extremities weaker than the lower extremities.She has bilateral lower SCD' s. NGT feeding on hold for possible LP this am due to episode of febrile status. Her T-max was 101. Objective - Vital Signs/Intake and Output Vital Signs (last 24 hours): Temp Pulse Resp BP Pulse Ox 99.5 F 93 H 20 139/75 95 11/09/17 04:05 11/09/17 04:13 11/09/17 04:05 11/09/17 04:05 11/09/17 04:05 Intake and Output: 11/09/17 11/09/17 06:59 18:59 Intake Total 1305 Output Total 400 Balance 905 - Medications Medications: Current Medications Acetaminophen (Tylenol 650mg/20.3ml Solution Ud) 650 mg PO Q6 PRN PRN Reason: Temperature Last Admin: 11/08/17 11:34 Dose: 650 mg Amantadine HCl (Symmetrel) 100 mg PO DAILY [facility] Last Admin: 11/08/17 10:28 Dose: 100 mg Ascorbic Acid (Vitamin C 500 Mg Tab) 500 mg GT DAILY [facility] Last Admin: 11/08/17 10:30 Dose: 500 mg Cyanocobalamin (Vitamin B12 1000 Mcg Tab) 1,000 mcg GT DAILY [facility] Last Admin: 11/08/17 10:29 Dose: 1,000 mcg Dextrose (Dextrose 50% Inj) 0 ml IV STAT PRN; Protocol PRN Reason: Hypoglycemia Protocol Dextrose (Glutose 15) 0 gm GT ONCE PRN; Protocol PRN Reason: Hypoglycemia Protocol Glucagon (Glucagen Diagnostic Kit) 0 mg IM STAT PRN; Protocol PRN Reason: Hypoglycemia Protocol Valproate Sodium 500 mg/ (Sodium Chloride) 105 mls @ 100 mls/hr IVPB Q12H [facility] Last Admin: 11/03/17 01:14 Dose: 100 mls/hr Meropenem 1 gm/ Sodium (Chloride) 100 mls @ 100 mls/hr IVPB Q8 [facility] PRN Reason: Protocol Last Admin: 11/09/17 05:26 Dose: 100 mls/hr Vancomycin/Sodium Chloride (Vancomycin 1 Gm/Ns 200 Ml) 1 gm in 200 mls @ 133.333 mls/hr IVPB Q12H [facility] PRN Reason: Protocol Stop: 11/12/17 13:01 Last Admin: 11/09/17 00:47 Dose: 133.333 mls/hr Sodium Chloride (Sodium Chloride 0.9%) 1,000 mls @ 100 mls/hr IV .Q10H [facility] Last Admin: 11/08/17 18:24 Dose: 100 mls/hr Insulin Aspart (Novolog) 0 unit SC Q6H [facility] PRN Reason: Protocol Last Admin: 11/09/17 06:49 Dose: 6 units Insulin Detemir (Levemir) 40 unit SC Q12H [facility] Last Admin: 11/08/17 17:53 Dose: Not Given Latanoprost (Xalatan Opht) 0 ml OU HS [facility] Last Admin: 11/08/17 21:04 Dose: 1 ml Losartan Potassium (Cozaar) 25 mg NG DAILY [facility] Last Admin: 11/08/17 10:30 Dose: 25 mg Multivitamins (Hexavitamin) 1 tab GT DAILY [facility] Last Admin: 11/08/17 10:30 Dose: 1 tab Ondansetron HCl (Zofran Inj) 4 mg IVP Q6H PRN PRN Reason: Nausea/Vomiting Pantoprazole Sodium (Protonix Inj) 40 mg IVP DAILY [facility] Last Admin: 11/08/17 10:29 Dose: 40 mg Thiamine HCl (Vitamin B1 Tab) 100 mg GT BID [facility] Last Admin: 11/08/17 18:24 Dose: 100 mg - Labs Labs: 11/08/17 08:24 11/08/17 08:24 PT 13.0 SECONDS (9.7-12.2) H 10/23/17 04:53 INR 1.2 10/23/17 04:53 APTT 24 SECONDS (21-34) 10/23/17 04:53 - Constitutional Appears: No Acute Distress - Head Exam Head Exam: NORMAL INSPECTION - Eye Exam Pupil Exam: Miosis, PERRL Additional comments: 2 mm bilateral eyes. - Neurological Exam Neurological Exam: Awake Neuro motor strength exam: Left Upper Extremity: 3, Right Upper Extremity: 3, Left Lower Extremity: 2/1, Right Lower Extremity: 2/1 Additional comments: awake, able to state her name, follows simple commands. Assessment and Plan (1) Mental status change Assessment & Plan: Case discussed with Dr. Nixon, continue all current medical, physical, and occupational therapies. Recommend follow any orders from neurosurgery and ID, keeping head of bed elevated at least 40 degrees, monitor neuro status, normothermic, blood pressure and glycemic control. control. Status: Acute
[2017-11-09 07:45] LABS: ALT/SGPT 40 U/L (9-52); AST/SGOT 35 U/L (14-36); BLOOD UREA NITROGEN 39 mg/dL (7-17); CALCIUM 8.3 mg/dl (8.6-10.4); GFR AFRICAN-AMERICAN > 60; GFR NON-AFRICAN AMERICAN > 60
[2017-11-09 08:24] LABS: BASO # 0.1 K/uL (0.0-0.2); BASO % 0.9 % (0.0-2.0); EOS # 0.1 K/uL (0.0-0.7); EOS % 0.7 % (0.0-4.0); HEMOGLOBIN 11.9 g/dL (11.0-16.0); LYMPH # 2.1 K/uL (1.0-4.3); LYMPH % 20.9 % (20.0-40.0); MEAN CORPUSCULAR HEMOGLOBIN 29.2 pg (27.0-31.0); MEAN CORPUSCULAR HGB CONC 33.6 g/dL (33.0-37.0); MEAN PLATELET VOLUME 8.8 fL (7.2-11.7); MONO # 1.1 K/uL (0.0-0.8); MONO % 11.1 % (0.0-10.0); NEUT # 6.7 K/uL (1.8-7.0); NEUT % 66.4 % (50.0-75.0); RBC 4.06 Mil/uL (3.80-5.20); RED CELL DISTRIBUTION WIDTH 15.2 % (11.5-14.5); WHITE BLOOD COUNT 10.1 K/uL (4.8-10.8)
[2017-11-09] MEDS: Sodium Chloride 0.9% 1,000 ML IV SCH ×2 (08:30→20:33)
--- NOTE | 2017-11-09 09:11 | CP.PCM.PN ---
Subjective - Date & Time of Evaluation Date of Evaluation: 11/09/17 Time of Evaluation: 09:10 - Subjective Subjective: pt awake alert lithargic spiking fevers shunt tapped with 25 guage needle 5 cc clear csf obtained sent for routine Objective - Vital Signs/Intake and Output Vital Signs (last 24 hours): Temp Pulse Resp BP Pulse Ox 99.5 F 105 H 20 139/75 95 11/09/17 04:05 11/09/17 07:45 11/09/17 04:05 11/09/17 04:05 11/09/17 04:05 Intake and Output: 11/09/17 11/09/17 06:59 18:59 Intake Total 1305 Output Total 400 Balance 905 - Medications Medications: Current Medications Acetaminophen (Tylenol 650mg/20.3ml Solution Ud) 650 mg PO Q6 PRN PRN Reason: Temperature Last Admin: 11/08/17 11:34 Dose: 650 mg Amantadine HCl (Symmetrel) 100 mg PO DAILY [facility] Last Admin: 11/08/17 10:28 Dose: 100 mg Ascorbic Acid (Vitamin C 500 Mg Tab) 500 mg GT DAILY [facility] Last Admin: 11/08/17 10:30 Dose: 500 mg Cyanocobalamin (Vitamin B12 1000 Mcg Tab) 1,000 mcg GT DAILY [facility] Last Admin: 11/08/17 10:29 Dose: 1,000 mcg Dextrose (Dextrose 50% Inj) 0 ml IV STAT PRN; Protocol PRN Reason: Hypoglycemia Protocol Dextrose (Glutose 15) 0 gm GT ONCE PRN; Protocol PRN Reason: Hypoglycemia Protocol Glucagon (Glucagen Diagnostic Kit) 0 mg IM STAT PRN; Protocol PRN Reason: Hypoglycemia Protocol Valproate Sodium 500 mg/ (Sodium Chloride) 105 mls @ 100 mls/hr IVPB Q12H [facility] Last Admin: 11/03/17 01:14 Dose: 100 mls/hr Meropenem 1 gm/ Sodium (Chloride) 100 mls @ 100 mls/hr IVPB Q8 [facility] PRN Reason: Protocol Last Admin: 11/09/17 05:26 Dose: 100 mls/hr Vancomycin/Sodium Chloride (Vancomycin 1 Gm/Ns 200 Ml) 1 gm in 200 mls @ 133.333 mls/hr IVPB Q12H [facility] PRN Reason: Protocol Stop: 11/12/17 13:01 Last Admin: 11/09/17 00:47 Dose: 133.333 mls/hr Sodium Chloride (Sodium Chloride 0.9%) 1,000 mls @ 100 mls/hr IV .Q10H [facility] Last Admin: 11/09/17 08:30 Dose: 100 mls/hr Insulin Aspart (Novolog) 0 unit SC Q6H [facility] PRN Reason: Protocol Last Admin: 11/09/17 06:49 Dose: 6 units Insulin Detemir (Levemir) 40 unit SC Q12H [facility] Last Admin: 11/08/17 17:53 Dose: Not Given Latanoprost (Xalatan Opht) 0 ml OU HS [facility] Last Admin: 11/08/17 21:04 Dose: 1 ml Losartan Potassium (Cozaar) 25 mg NG DAILY [facility] Last Admin: 11/08/17 10:30 Dose: 25 mg Multivitamins (Hexavitamin) 1 tab GT DAILY [facility] Last Admin: 11/08/17 10:30 Dose: 1 tab Ondansetron HCl (Zofran Inj) 4 mg IVP Q6H PRN PRN Reason: Nausea/Vomiting Pantoprazole Sodium (Protonix Inj) 40 mg IVP DAILY [facility] Last Admin: 11/08/17 10:29 Dose: 40 mg Thiamine HCl (Vitamin B1 Tab) 100 mg GT BID [facility] Last Admin: 11/08/17 18:24 Dose: 100 mg - Labs Labs: 11/09/17 07:15 11/09/17 07:15 PT 13.0 SECONDS (9.7-12.2) H 10/23/17 04:53 INR 1.2 10/23/17 04:53 APTT 24 SECONDS (21-34) 10/23/17 04:53
[2017-11-09 09:46] LABS: FLUID TYPE SPINAL FLUID
[2017-11-09] MEDS: Amantadine 50 mg/5 ml Syrup (473 ml) PO SCH (10:25)
[2017-11-09] MEDS: Multiple Vitamins Tab GT SCH (10:25)
[2017-11-09 10:45] LABS: CSF APPEARANCE CLEAR/COLORLESS (CLEAR); CSF VOLUME 2 mL (0-1)
[2017-11-09] MEDS ORDERED: (Lantus) Insulin Glargine, Recombinant SC SCH ×2 (11:00→22:00)
--- NOTE | 2017-11-09 11:16 | CP.PCM.PN ---
Subjective - Date & Time of Evaluation Date of Evaluation: 11/09/17 Time of Evaluation: 11:15 - Subjective Subjective: csf cell count glu and protein are not consistant with infection in csf c&s pending suggest CT abdomen incase there is a problem there Objective - Vital Signs/Intake and Output Vital Signs (last 24 hours): Temp Pulse Resp BP Pulse Ox 97.2 F L 99 H 20 124/83 98 11/09/17 08:00 11/09/17 08:00 11/09/17 08:00 11/09/17 08:00 11/09/17 08:00 Intake and Output: 11/09/17 11/09/17 06:59 18:59 Intake Total 1305 Output Total 400 Balance 905 - Medications Medications: Current Medications Acetaminophen (Tylenol 650mg/20.3ml Solution Ud) 650 mg PO Q6 PRN PRN Reason: Temperature Last Admin: 11/08/17 11:34 Dose: 650 mg Amantadine HCl (Symmetrel) 100 mg PO DAILY [facility] Last Admin: 11/09/17 10:25 Dose: 100 mg Ascorbic Acid (Vitamin C 500 Mg Tab) 500 mg GT DAILY [facility] Last Admin: 11/09/17 10:24 Dose: 500 mg Cyanocobalamin (Vitamin B12 1000 Mcg Tab) 1,000 mcg GT DAILY [facility] Last Admin: 11/09/17 10:26 Dose: 1,000 mcg Dextrose (Dextrose 50% Inj) 0 ml IV STAT PRN; Protocol PRN Reason: Hypoglycemia Protocol Dextrose (Glutose 15) 0 gm GT ONCE PRN; Protocol PRN Reason: Hypoglycemia Protocol Glucagon (Glucagen Diagnostic Kit) 0 mg IM STAT PRN; Protocol PRN Reason: Hypoglycemia Protocol Valproate Sodium 500 mg/ (Sodium Chloride) 105 mls @ 100 mls/hr IVPB Q12H [facility] Last Admin: 11/03/17 01:14 Dose: 100 mls/hr Meropenem 1 gm/ Sodium (Chloride) 100 mls @ 100 mls/hr IVPB Q8 [facility] PRN Reason: Protocol Last Admin: 11/09/17 05:26 Dose: 100 mls/hr Vancomycin/Sodium Chloride (Vancomycin 1 Gm/Ns 200 Ml) 1 gm in 200 mls @ 133.333 mls/hr IVPB Q12H [facility] PRN Reason: Protocol Stop: 11/12/17 13:01 Last Admin: 11/09/17 00:47 Dose: 133.333 mls/hr Sodium Chloride (Sodium Chloride 0.9%) 1,000 mls @ 100 mls/hr IV .Q10H [facility] Last Admin: 11/09/17 08:30 Dose: 100 mls/hr Insulin Aspart (Novolog) 0 unit SC Q6H [facility] PRN Reason: Protocol Last Admin: 11/09/17 06:49 Dose: 6 units Insulin Glargine (Lantus) 20 unit SC HS [facility] Latanoprost (Xalatan Opht) 0 ml OU HS [facility] Last Admin: 11/08/17 21:04 Dose: 1 ml Losartan Potassium (Cozaar) 25 mg NG DAILY [facility] Last Admin: 11/09/17 10:25 Dose: 25 mg Multivitamins (Hexavitamin) 1 tab GT DAILY [facility] Last Admin: 11/09/17 10:25 Dose: 1 tab Ondansetron HCl (Zofran Inj) 4 mg IVP Q6H [facility]N PRN Reason: Nausea/Vomiting Pantoprazole Sodium (Protonix Inj) 40 mg IVP DAILY [facility] Last Admin: 11/09/17 10:24 Dose: 40 mg Thiamine HCl (Vitamin B1 Tab) 100 mg GT BID [facility] Last Admin: 11/09/17 10:56 Dose: 100 mg - Labs Labs: 11/09/17 07:15 11/09/17 07:15 PT 13.0 SECONDS (9.7-12.2) H 10/23/17 04:53 INR 1.2 10/23/17 04:53 APTT 24 SECONDS (21-34) 10/23/17 04:53
--- NOTE | 2017-11-09 12:49 | CP.PCM.PN ---
Subjective - Date & Time of Evaluation Date of Evaluation: 11/09/17 Time of Evaluation: 12:10 - Subjective Subjective: dictated Objective - Vital Signs/Intake and Output Vital Signs (last 24 hours): Temp Pulse Resp BP Pulse Ox 97.2 F L 99 H 20 124/83 98 11/09/17 08:00 11/09/17 08:00 11/09/17 08:00 11/09/17 08:00 11/09/17 08:00 Intake and Output: 11/09/17 11/09/17 06:59 18:59 Intake Total 1305 Output Total 400 Balance 905 - Medications Medications: Current Medications Acetaminophen (Tylenol 650mg/20.3ml Solution Ud) 650 mg PO Q6 PRN PRN Reason: Temperature Last Admin: 11/08/17 11:34 Dose: 650 mg Amantadine HCl (Symmetrel) 100 mg PO DAILY [facility] Last Admin: 11/09/17 10:25 Dose: 100 mg Ascorbic Acid (Vitamin C 500 Mg Tab) 500 mg GT DAILY [facility] Last Admin: 11/09/17 10:24 Dose: 500 mg Cyanocobalamin (Vitamin B12 1000 Mcg Tab) 1,000 mcg GT DAILY [facility] Last Admin: 11/09/17 10:26 Dose: 1,000 mcg Dextrose (Dextrose 50% Inj) 0 ml IV STAT PRN; Protocol PRN Reason: Hypoglycemia Protocol Dextrose (Glutose 15) 0 gm GT ONCE PRN; Protocol PRN Reason: Hypoglycemia Protocol Glucagon (Glucagen Diagnostic Kit) 0 mg IM STAT PRN; Protocol PRN Reason: Hypoglycemia Protocol Valproate Sodium 500 mg/ (Sodium Chloride) 105 mls @ 100 mls/hr IVPB Q12H [facility] Last Admin: 11/03/17 01:14 Dose: 100 mls/hr Meropenem 1 gm/ Sodium (Chloride) 100 mls @ 100 mls/hr IVPB Q8 [facility] PRN Reason: Protocol Last Admin: 11/09/17 05:26 Dose: 100 mls/hr Vancomycin/Sodium Chloride (Vancomycin 1 Gm/Ns 200 Ml) 1 gm in 200 mls @ 133.333 mls/hr IVPB Q12H [facility] PRN Reason: Protocol Stop: 11/12/17 13:01 Last Admin: 11/09/17 00:47 Dose: 133.333 mls/hr Sodium Chloride (Sodium Chloride 0.9%) 1,000 mls @ 100 mls/hr IV .Q10H [facility] Last Admin: 11/09/17 08:30 Dose: 100 mls/hr Insulin Aspart (Novolog) 0 unit SC Q6H [facility] PRN Reason: Protocol Last Admin: 11/09/17 06:49 Dose: 6 units Insulin Glargine (Lantus) 20 unit SC HS [facility] Latanoprost (Xalatan Opht) 0 ml OU HS [facility] Last Admin: 11/08/17 21:04 Dose: 1 ml Losartan Potassium (Cozaar) 25 mg NG DAILY [facility] Last Admin: 11/09/17 10:25 Dose: 25 mg Multivitamins (Hexavitamin) 1 tab GT DAILY [facility] Last Admin: 11/09/17 10:25 Dose: 1 tab Ondansetron HCl (Zofran Inj) 4 mg IVP Q6H [facility]N PRN Reason: Nausea/Vomiting Pantoprazole Sodium (Protonix Inj) 40 mg IVP DAILY [facility] Last Admin: 11/09/17 10:24 Dose: 40 mg Thiamine HCl (Vitamin B1 Tab) 100 mg GT BID [facility] Last Admin: 11/09/17 10:56 Dose: 100 mg - Labs Labs: 11/09/17 07:15 11/09/17 07:15 PT 13.0 SECONDS (9.7-12.2) H 10/23/17 04:53 INR 1.2 10/23/17 04:53 APTT 24 SECONDS (21-34) 10/23/17 04:53
--- NOTE | 2017-11-09 13:44 | RAD ---
PROCEDURE: Radiographs of the chest and abdomen (obstructive series) HISTORY: possible GI obstruction COMPARISON: No prior. TECHNIQUE: AP radiograph of the chest, with upright and supine radiographs of the abdomen. FINDINGS: CHEST: Lungs: Cl shallow lung volumes- possible mild atelectatic changes left lung base Cardiovascular: Borderline prominent heart size. No p gross ulmonary vascular congestion. Pleura: No pleural fluid. No pneumothorax. Other findings: None. ABDOMEN AND PELVIS: Bowel: There is colonic-is distension slightly more prominent in an apparent redundant rectosigmoid loop. Finding is nonspecific continued follow-up is recommended. Mild ileus with or without the obstruction is not excluded. The hepatic flexure and transverse colon is also redundant. Free air: None. Bones: Unremarkable. Other findings: Nasogastric tube tip in stomach. Additional tubing inferred as ventriculoperitoneal shunt there multiple to being sick and lines projecting over the chest and abdomen clinical correlation is needed prickly regarding that which projects over the left shoulder and over the left lung base. A 2nd ventriculoperitoneal shunt catheter segment also needs to be considered. . IMPRESSION: No pulmonary infiltrate possible minimal left basal atelectatic changes suboptimal inspiration. No free air appreciated. The overall colon is redundant and mildly distended -as detailed above. Findings are nonspecific top normal variants- developing or mild ileus considerations. An intermittent partial large bowel distal obstruction is not excluded. Clinical correlation and follow-up is advised. NG tube tip in stomach Bilateral particular peritoneal shunt catheter segments -clinical correlation recommended. That on the left appears to and in the left upper abdomen that on the right or inferior in the right abdomen Comments: Findings presented to me for interpretation on 11/09/2017 Concordant results (preliminary interpretation) provided by [facility].
[2017-11-09] MEDS ORDERED: Iohexol 240 (50 ml) PO ONE (13:45)
[2017-11-09] MEDS ORDERED: Potassium Chloride 20 mEq/15 ml LIQ UD PO SCH (14:30)
--- NOTE | 2017-11-09 14:49 | CP.PCM.CON ---
History of Present Illness - History of Present Illness History of Present Illness: This is a 66 year old woman with altered mental status for PEG placement. Patient was admitted 10/03/2017 with a three-week history of confusion, worse for the 24 hours prior to admission, and a fall. She has a history of hydrocephalus and SUPER[employer]OR [employer] shunt. The SUPER[employer] shunt had last been revised in February,. Enlargement of the ventricles was documented by CT scan. The peritoneal catheter was changed 10/10/2017; the SUPERVIS[employer] OV[employer] shunt was converted to a ventriculoatrial shunt on 10/19/2017; and the [facility] shunt was removed and replaced with a left ventriculopleural shunt on 10/23/2017. Patient has been intermittently confused and unable to eat or even undergo speech therapy evaluation. She has also had fever of uncertain etiology and abdominal distention. Review of Systems - Review of Systems All systems: reviewed and no additional remarkable complaints except - Constitutional Constitutional: Fever - Cardiovascular Cardiovascular: absent: Chest Pain, Chest Pain at Rest, Syncope - Respiratory Respiratory: absent: Cough, Dyspnea, Dyspnea on Exertion - Gastrointestinal Gastrointestinal: absent: Abdominal Pain, Constipation, Diarrhea, Nausea, Vomiting - Genitourinary Genitourinary: Urinary Incontinence. absent: Difficulty Urinating Past Patient History - Infectious Disease Hx of Infectious Diseases: None - Past Medical History & Family History Past Medical History?: Yes - Past Social History Smoking Status: Never Smoked - CARDIAC Hx Hypercholesterolemia: Yes Hx Hypertension: Yes - PULMONARY Hx Asthma: Yes - NEUROLOGICAL Hx Neurological Disorder: Yes Hx Vertigo: Yes Other/Comment: Hydrocephalus with Shunt - ENDOCRINE/METABOLIC Hx Diabetes Mellitus Type 2: Yes - MUSCULOSKELETAL/RHEUMATOLOGICAL Hx Musculoskeletal Disorders: Yes Hx Falls: Yes - PSYCHIATRIC Hx Substance Use: No - SURGICAL HISTORY Hx Surgeries: Yes Other/Comment: Shunt for Hydrocephalus - ANESTHESIA Hx Anesthesia: Yes Hx Anesthesia Reactions: No Meds Home Medications: Home Medication List Medication Instructions Recorded Confirmed Type Furosemide [Lasix] 20 mg PO BID #14 tablet 10/04/17 Rx Allergies/Adverse Reactions: Allergies Allergy/AdvReac Type Severity Reaction Status Date / Time No Known Allergies Allergy Verified 12/08/15 16:19 - Medications Medications: Current Medications Acetaminophen (Tylenol 650mg/20.3ml Solution Ud) 650 mg PO Q6 PRN PRN Reason: Temperature Last Admin: 11/08/17 11:34 Dose: 650 mg Amantadine HCl (Symmetrel) 100 mg PO DAILY [facility] Last Admin: 11/09/17 10:25 Dose: 100 mg Ascorbic Acid (Vitamin C 500 Mg Tab) 500 mg GT DAILY [facility] Last Admin: 11/09/17 10:24 Dose: 500 mg Cyanocobalamin (Vitamin B12 1000 Mcg Tab) 1,000 mcg GT DAILY [facility] Last Admin: 11/09/17 10:26 Dose: 1,000 mcg Dextrose (Dextrose 50% Inj) 0 ml IV STAT PRN; Protocol PRN Reason: Hypoglycemia Protocol Dextrose (Glutose 15) 0 gm GT ONCE PRN; Protocol PRN Reason: Hypoglycemia Protocol Glucagon (Glucagen Diagnostic Kit) 0 mg IM STAT PRN; Protocol PRN Reason: Hypoglycemia Protocol Valproate Sodium 500 mg/ (Sodium Chloride) 105 mls @ 100 mls/hr IVPB Q12H [facility] Last Admin: 11/03/17 01:14 Dose: 100 mls/hr Meropenem 1 gm/ Sodium (Chloride) 100 mls @ 100 mls/hr IVPB Q8 [facility] PRN Reason: Protocol Last Admin: 11/09/17 05:26 Dose: 100 mls/hr Vancomycin/Sodium Chloride (Vancomycin 1 Gm/Ns 200 Ml) 1 gm in 200 mls @ 133.333 mls/hr IVPB Q12H [facility] PRN Reason: Protocol Stop: 11/12/17 13:01 Last Admin: 11/09/17 13:32 Dose: 133.333 mls/hr Micafungin Sodium 100 mg/ (Sodium Chloride) 100 mls @ 100 mls/hr IV Q24H [facility] PRN Reason: Protocol Potassium Chloride (Potassium Chloride 20 Meq/100 Ml) 100 mls @ 50 mls/hr IV ONCE ONE Stop: 11/09/17 17:29 Insulin Aspart (Novolog) 0 unit SC Q6H [facility] PRN Reason: Protocol Last Admin: 11/09/17 13:31 Dose: 6 units Insulin Glargine (Lantus) 20 unit SC HS [facility] Latanoprost (Xalatan Opht) 0 ml OU HS [facility] Last Admin: 11/08/17 21:04 Dose: 1 ml Losartan Potassium (Cozaar) 25 mg NG DAILY [facility] Last Admin: 11/09/17 10:25 Dose: 25 mg Multivitamins (Hexavitamin) 1 tab GT DAILY [facility] Last Admin: 11/09/17 10:25 Dose: 1 tab Ondansetron HCl (Zofran Inj) 4 mg IVP Q6H PRN PRN Reason: Nausea/Vomiting Pantoprazole Sodium (Protonix Inj) 40 mg IVP DAILY [facility] Last Admin: 11/09/17 10:24 Dose: 40 mg Thiamine HCl (Vitamin B1 Tab) 100 mg GT BID [facility] Last Admin: 11/09/17 10:56 Dose: 100 mg Physical Exam - Neck Exam Neck exam: Negative for: Lymphadenopathy, Thyromegaly - Respiratory Exam Respiratory Exam: NORMAL BREATHING PATTERN. absent: Rales, Rhonchi, Wheezes - Cardiovascular Exam Cardiovascular Exam: REGULAR RHYTHM, +S1, +S2. absent: Gallop, Rubs, Systolic Murmur - GI/Abdominal Exam GI & Abdominal Exam: Distended, Normal Bowel Sounds, Soft. absent: Mass, Organomegaly, Tenderness - Rectal Exam Rectal Exam: Deferred - Extremities Exam Extremities exam: Negative for: calf tenderness, pedal edema Results - Vital Signs Recent Vital Signs: Last Vital Signs Temp 97.2 F L 11/09/17 08:00 Pulse 99 H 11/09/17 08:00 Resp 20 11/09/17 08:00 BP 124/83 11/09/17 08:00 Pulse Ox 98 11/09/17 08:00 - Labs Result Diagrams: 11/09/17 07:15 11/09/17 07:15 Labs: Laboratory Results - last 24 hr 11/08/17 11/08/17 11/09/17 08:24 17:56 00:02 WBC RBC Hgb Hct MCV MCH MCHC RDW Plt Count MPV Neut % (Auto) Lymph % (Auto) [place] % (Auto) Eos % (Auto) Baso % (Auto) Neut # (Auto) Lymph # (Auto) [place] # (Auto) Eos # (Auto) Baso # (Auto) Sodium Potassium Chloride Carbon Dioxide Anion Gap BUN Creatinine Est GFR ( Amer) Est GFR (Non-Af Amer) POC Glucose (mg/dL) 349 H 344 H Random Glucose Calcium Phosphorus Magnesium Total Bilirubin AST ALT Alkaline Phosphatase Total Protein Albumin Globulin Albumin/Globulin Ratio Procalcitonin 0.15 L Fluid Type CSF Volume CSF Appearance CSF WBC CSF RBC CSF Total Cell Counted CSF Monos/Macrophages CSF Comment CSF Glucose CSF Total Protein Vancomycin Trough 07/05/18 07/05/18 07/05/18 01:15 06:20 07:15 WBC 10.1 RBC 4.06 Hgb 11.9 Hct 35.3 MCV 87.0 MCH 29.2 MCHC 33.6 RDW 15.2 H Plt Count 270 MPV 8.8 Neut % (Auto) 66.4 Lymph % (Auto) 20.9 [place] % (Auto) 11.1 H Eos % (Auto) 0.7 Baso % (Auto) 0.9 Neut # (Auto) 6.7 Lymph # (Auto) 2.1 [place] # (Auto) 1.1 H Eos # (Auto) 0.1 Baso # (Auto) 0.1 Sodium Potassium Chloride Carbon Dioxide Anion Gap BUN Creatinine Est GFR ( Amer) Est GFR (Non-Af Amer) POC Glucose (mg/dL) 331 H Random Glucose Calcium Phosphorus Magnesium Total Bilirubin AST ALT Alkaline Phosphatase Total Protein Albumin Globulin Albumin/Globulin Ratio Procalcitonin Fluid Type CSF Volume CSF Appearance CSF WBC CSF RBC CSF Total Cell Counted CSF Monos/Macrophages CSF Comment CSF Glucose CSF Total Protein Vancomycin Trough 11.2 H 11/09/17 11/09/17 11/09/17 07:15 09:43 09:43 WBC RBC Hgb Hct MCV MCH MCHC RDW Plt Count MPV Neut % (Auto) Lymph % (Auto) [place] % (Auto) Eos % (Auto) Baso % (Auto) Neut # (Auto) Lymph # (Auto) [place] # (Auto) Eos # (Auto) Baso # (Auto) Sodium 148 Potassium 3.5 L Chloride 111 H Carbon Dioxide 29 Anion Gap 12 BUN 39 H Creatinine 0.7 Est GFR ( Amer) > 60 Est GFR (Non-Af Amer) > 60 POC Glucose (mg/dL) Random Glucose 334 H Calcium 8.3 L Phosphorus 3.3 Magnesium 2.3 Total Bilirubin 0.6 AST 35 ALT 40 Alkaline Phosphatase 74 Total Protein 6.1 L Albumin 3.0 L Globulin 3.1 Albumin/Globulin Ratio 1.0 Procalcitonin Fluid Type Spinal fluid CSF Volume 2 H CSF Appearance Clear/colorless CSF WBC 1.0 CSF RBC 39.0 H CSF Total Cell Counted TEST NOT PERFORMED CSF Monos/Macrophages TEST NOT PERFORMED CSF Comment CSF Glucose 151 H* CSF Total Protein Vancomycin Trough 11/09/17 11/09/17 09:43 12:02 WBC RBC Hgb Hct MCV MCH MCHC RDW Plt Count MPV Neut % (Auto) Lymph % (Auto) [place] % (Auto) Eos % (Auto) Baso % (Auto) Neut # (Auto) Lymph # (Auto) [place] # (Auto) Eos # (Auto) Baso # (Auto) Sodium Potassium Chloride Carbon Dioxide Anion Gap BUN Creatinine Est GFR ( Amer) Est GFR (Non-Af Amer) POC Glucose (mg/dL) 315 H Random Glucose Calcium Phosphorus Magnesium Total Bilirubin AST ALT Alkaline Phosphatase Total Protein Albumin Globulin Albumin/Globulin Ratio Procalcitonin Fluid Type CSF Volume CSF Appearance CSF WBC CSF RBC CSF Total Cell Counted CSF Monos/Macrophages CSF Comment CSF Glucose CSF Total Protein 54.0 Vancomycin Trough Assessment & Plan (1) Dysphagia Assessment and Plan: Patient still has episodic confusion, and has been unable to eat on those days. She also has abdominal distention and fever (since 11/07/2018) which have not yet been completely worked up. Agree with plans for CT scan of sinuses, chest, abdomen, and pelvis. Possible PEG next week. Please withhold aspirin and antiplatelet agents for now. Status: Acute
[2017-11-09] MEDS: Acetaminophen 650mg/20.3ml solution UD PO PRN (15:01)
[2017-11-09] MEDS: Potassium Chloride 20 mEq 100 ML IV ONE ×2 (15:30→18:00)
[2017-11-09] MEDS: Micafungin 100 MG in Sodium Chloride 0.9% 100 ML IV SCH ×2 (16:00→17:59)
[2017-11-09] MEDS ORDERED: Iohexol 300 100 ML IJ ONE (16:35)
--- NOTE | 2017-11-09 17:17 | CT ---
PROCEDURE: CT MAXILLOFACIAL BONES WITHOUT CONTRAST HISTORY: r/o Infection/fever spikes/NG tube COMPARISON: None TECHNIQUE: Contiguous axial CT images of the maxillofacial bones were obtained. Coronal and sagittal reformats were generated. Radiation dose: Total exam DLP = 750.0 mGy-cm. This CT exam was performed using one or more of the following dose reduction techniques: Automated exposure control, adjustment of the mA and/or kV according to patient size, and/or use of iterative reconstruction technique. FINDINGS: NASAL BONES: Unremarkable. ORBITS: Unremarkable. PARANASAL SINUSES/ MASTOIDS: Mild right maxillary sinus mucosal thickening. Subtotal right ethmoid air cell and total right sphenoid sinus opacification. Mild left sphenoid sinus opacification. MAXILLA: Unremarkable. MANDIBLE/ TEMPOROMANDIBULAR JOINTS: Unremarkable. SKULL BASE: Unremarkable. TEMPORAL BONES: Middle ears and mastoid grossly unremarkable. OTHER FINDINGS: Partially imaged nasogastric tube via right nostril. Partially imaged right frontal and left parietal ventriculostomy catheters IMPRESSION: No evidence of facial bone fracture. Sinus disease as described above.
--- NOTE | 2017-11-09 17:31 | CT ---
PROCEDURE: CT Chest, Abdomen and Pelvis with intravenous contrast HISTORY: Mental status change. Fever, abscess suspected. 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 COMPARISON: 10/11/2017 CT abdomen and pelvis 10/11/2017 CT thorax abdomen and pelvis TECHNIQUE: IV dose administered: 100 cc Omnipaque 300. Radiation dose: Total exam DLP = 1867.90 mGy-cm. This CT exam was performed using one or more of the following dose reduction techniques: Automated exposure control, adjustment of the mA and/or kV according to patient size, and/or use of iterative reconstruction technique. FINDINGS: CT CHEST WITH CONTRAST: LUNGS: Clear. No nodule, mass or consolidation. MEDIASTINUM: Unremarkable. Normal caliber aorta and pulmonary arterial trunk. No aortic dissection. Normal size heart. LYMPH NODES: Unremarkable. PLEURA: New left pleural effusion. Incompletely visualized shunt catheter coursing from a cephalad direction through the soft tissues of left chest wall with the tip: Old in the pleural effusion. No pneumothorax identified. Soft tissue changes along the course of the catheter suggests this has been recently placed. BONES: Unremarkable. OTHER FINDINGS: None. CT ABDOMEN AND PELVIS: LIVER: Unremarkable. No gross lesion or ductal dilatation. GALLBLADDER AND BILE DUCTS: Status post cholecystectomy. No abnormality is seen in the gallbladder fossa. PANCREAS: Unremarkable. No gross lesion or ductal dilatation. SPLEEN: Unremarkable. ADRENALS: Unremarkable. No mass. KIDNEYS AND URETERS: Unremarkable. No hydronephrosis. No solid mass. VASCULATURE: Unremarkable. No aortic aneurysm. BOWEL: Nasogastric tube courses through the esophagus and is satisfactorily positioned in a decompressed stomach. Chronic distention of the colon with air-fluid levels. Similar findings identified on the prior CT. . APPENDIX: Normal appendix. PERITONEUM: Unremarkable. No free fluid. No free air. LYMPH NODES: Unremarkable. No enlarged lymph nodes. BLADDER: Unremarkable. REPRODUCTIVE: Unremarkable. BONES: No acute fracture. OTHER FINDINGS: Additional shunt catheter to the right of the midline in the anterior soft tissues courses through the thorax and the anterior soft tissues of the abdomen, of the tip is coiled in the right lower quadrant. No abnormal associated fluid collections. This appears to replace a previously identified catheter. A 2nd catheter Is no longer seen and presumed to been removed IMPRESSION: New left pleural effusion and compressive atelectasis left jossue thorax. New catheter/shunt in the right pleural space. Status post removal of left upper quadrant catheter. No suspicious collections or acute inflammatory process ease identified in the thorax, abdomen, retroperitoneum or pelvis Additional benign and/or incidental findings described above.
[2017-11-09] MEDS ORDERED: Sodium Chloride 0.9% 1,000 ML IV SCH (20:00)
[2017-11-09] MEDS ORDERED: Potassium Chloride 20 mEq/15 ml LIQ UD NG SCH (20:00)
[2017-11-09] MEDS: (Lantus) Insulin Glargine, Recombinant SC SCH (22:46)
[2017-11-09] MEDS: Latanoprost 2.5 ml Opht Soln OU SCH (22:47)
[2017-11-10] MEDS: Vancomycin 1 gm/NS 200 ml 1 GM/200 ML BAG IVPB SCH ×2 (01:38→12:02)
[2017-11-10] MEDS: Sodium Chloride 0.9% 1,000 ML IV SCH (04:41)
[2017-11-10] MEDS: Meropenem 1 GM in Sodium Chloride 0.9% 100 ML IVPB SCH ×3 (05:30→22:26)
--- NOTE | 2017-11-10 06:14 | CP.PCM.PN ---
<Calvin Small M - Last Filed: 11/10/17 21:45> Subjective - Date & Time of Evaluation Date of Evaluation: 11/10/17 Time of Evaluation: 07:15 - Subjective Subjective: PGY1 Resident Note for Dr. Parsons. Pt seen and examined at bedside. Pt is alert and responsive to verbal questions as 11/09. Pt still unable to formulate complete sentences but is able to answer in yes/no questions. Pt denies head pain, chest pain, difficulty breathing, stomach pain. Pt is able to verbalize her birthday and orient herself as in hospital. Pt continues to have T max spikes of 102. Objective - Vital Signs/Intake and Output Vital Signs (last 24 hours): Temp Pulse Resp BP Pulse Ox 98.3 F 109 H 20 146/73 96 11/09/17 23:15 11/09/17 23:15 11/09/17 23:15 11/10/17 03:40 11/09/17 23:15 Intake and Output: 11/09/17 11/10/17 18:59 06:59 Intake Total 1600 Output Total 500 Balance 1100 - Medications Medications: Current Medications Acetaminophen (Tylenol 650mg/20.3ml Solution Ud) 650 mg PO Q6 PRN PRN Reason: Temperature Last Admin: 11/09/17 15:01 Dose: 650 mg Amantadine HCl (Symmetrel) 100 mg PO DAILY [facility] Last Admin: 11/09/17 10:25 Dose: 100 mg Ascorbic Acid (Vitamin C 500 Mg Tab) 500 mg GT DAILY [facility] Last Admin: 11/09/17 10:24 Dose: 500 mg Bisacodyl (Dulcolax) 10 mg DC ONCE ONE Stop: 11/10/17 08:51 Cyanocobalamin (Vitamin B12 1000 Mcg Tab) 1,000 mcg GT DAILY [facility] Last Admin: 11/09/17 10:26 Dose: 1,000 mcg Dextrose (Dextrose 50% Inj) 0 ml IV STAT PRN; Protocol PRN Reason: Hypoglycemia Protocol Dextrose (Glutose 15) 0 gm GT ONCE PRN; Protocol PRN Reason: Hypoglycemia Protocol Glucagon (Glucagen Diagnostic Kit) 0 mg IM STAT PRN; Protocol PRN Reason: Hypoglycemia Protocol Valproate Sodium 500 mg/ (Sodium Chloride) 105 mls @ 100 mls/hr IVPB Q12H [facility] Last Admin: 11/03/17 01:14 Dose: 100 mls/hr Meropenem 1 gm/ Sodium (Chloride) 100 mls @ 100 mls/hr IVPB Q8 [facility] PRN Reason: Protocol Last Admin: 11/10/17 05:30 Dose: 100 mls/hr Vancomycin/Sodium Chloride (Vancomycin 1 Gm/Ns 200 Ml) 1 gm in 200 mls @ 133.333 mls/hr IVPB Q12H [facility] PRN Reason: Protocol Stop: 11/12/17 13:01 Last Admin: 11/10/17 01:38 Dose: 133.333 mls/hr Micafungin Sodium 100 mg/ (Sodium Chloride) 100 mls @ 100 mls/hr IV Q24H [facility] PRN Reason: Protocol Last Admin: 11/09/17 17:59 Dose: 100 mls/hr Sodium Chloride (Sodium Chloride 0.9%) 1,000 mls @ 125 mls/hr IV .Q8H [facility] Last Admin: 11/10/17 04:41 Dose: Not Given Insulin Aspart (Novolog) 0 unit SC Q6H [facility] PRN Reason: Protocol Last Admin: 11/09/17 23:53 Dose: Not Given Insulin Glargine (Lantus) 20 unit SC HS [facility] Last Admin: 11/09/17 22:46 Dose: 20 units Latanoprost (Xalatan Opht) 0 ml OU HS [facility] Last Admin: 11/09/17 22:47 Dose: 1 ml Losartan Potassium (Cozaar) 25 mg NG DAILY [facility] Last Admin: 11/09/17 10:25 Dose: 25 mg Multivitamins (Hexavitamin) 1 tab GT DAILY [facility] Last Admin: 11/09/17 10:25 Dose: 1 tab Ondansetron HCl (Zofran Inj) 4 mg IVP Q6H PRN PRN Reason: Nausea/Vomiting Pantoprazole Sodium (Protonix Susp) 40 mg GT DAILY [facility] Thiamine HCl (Vitamin B1 Tab) 100 mg GT BID [facility] Last Admin: 11/09/17 17:59 Dose: 100 mg - Labs Labs: 11/09/17 07:15 11/09/17 07:15 PT 13.0 SECONDS (9.7-12.2) H 10/23/17 04:53 INR 1.2 10/23/17 04:53 APTT 24 SECONDS (21-34) 10/23/17 04:53 - Constitutional Appears: No Acute Distress - Head Exam Additional comments: Pt has 2 closed incision sites from prior ROCKET ASSEMBLY OPERATOR shunt. Incision sites are clean & dry & intact. Pt has NG tube in R nasal nare - Eye Exam Pupil Exam: PERRL - Respiratory Exam Respiratory Exam: Clear to Ausculation Bilateral, NORMAL BREATHING PATTERN. absent: Rhonchi, Wheezes - Cardiovascular Exam Cardiovascular Exam: +S1, +S2. absent: Murmur - GI/Abdominal Exam GI & Abdominal Exam: Soft, Normal Bowel Sounds Additional comments: Minimal distention as compared to previous days. - Back Exam Back Exam: NORMAL INSPECTION - Neurological Exam Neurological Exam: Alert, Awake - Skin Skin Exam: Dry, Intact, Normal Color Assessment and Plan - Assessment and Plan (Free Text) Assessment: 1. Fever of unknown origin 11/10: - Fever spikes continue w/ Tmax 102, tyenol 650mg given for high grade fevers - No standing tylenol order due to LFTs increases - Low grade fevers, use ice bags - CSF, blood, urine cultures all negative, continue to monitor - minor amount pleural effusion on CT - no intervention at this time - f/u ENT, GI, Neuro recs on 11/11 11/09: - Fever spikes continue w/ Tmax of 102.4, tylenol 650mg PRN - CSF collected from shunt - F/u results - Continue Abx, f/u ID recs - per GI, will wait for PEG insertion - CT showed left pleural effusion; however, pt is breathing w/ no difficulty - no therapy at this point, consider lasix if pt has difficulty breathing -Urine culture no significant bacteria -Blood cultures no growth post 48 hrs 11/08: -Fever spikes w/ Tmax 102.0F, tylenol 650mg PRN -Possible spinal tap 11/09 for fungal source of infxn -Continue Abx -Urine culture no significant bacteria -Blood cultures no growth post 24 hrs 11/07: - Fevers w/ Tmax 101.7F, 1 time tylenol 650mg given - per ID recs, Vancomycin 1gm Q12H & Meropenem 1gm Q8H - F/u vanc troph 11/09 AM - F/u chest XRAY - F/u Venous duplex 2. Abdominal Distention 11/09: - CT indicates no obstruction preset at time 11/08: - F/u obstructive series xray - Stop NG feeds, flat Xray indicate pseudo-obstruction - NS 100mls/hr for hydration 3. Altered mental status S/P ROCKET ASSEMBLY OPERATOR shunt revision and History of hydrocephalus Initial ROCKET ASSEMBLY OPERATOR Shunt placed in 2014 Past history of ROCKET ASSEMBLY OPERATOR Shunt repair 02/26/17 Multiple ROCKET ASSEMBLY OPERATOR shunt revision during this hospitalization- 3rd this hospital stay (10/10/2017, 10/11/2017, 10/19/2017, 10/23/2017) Very slow mental status improvement Valproate 500mg IVP Q12H - decreased dose from 1000mg on 11/02 to see if this improves mental status - HOLDING since 11/03 Previous Teague cultures - negative to date off perioperative antibiotics Please see CT imagine in the chart Repeat head ct 11/01 (ordered due to lack of improvement in mental status): unchanged from previous 4. Dysphagia and change in mental status/lethargic 11/10: - Resume NG feedings - 1 time / NS 1000ml fluid for gydration 11/08: -NPO except for meds due to psuedo-obstructions -aspiration precaution -swallowing evaluation pending 5. Hypertension 11/09: - Blood pressure remains within acceptable range 11/07: Continue to monitor BP - Losartan 25mg started 11/06 - monitor electrolytes 6. Diabetes mellitus 11/10: - NG feedings resumed - stat dose of lantus 20 units given - Nighttime lantus of 20 unitscontinued - 11/11 lantus night time increased to 30 units for better coverage 11/09: - Levemer canceled, lantus 20 units QD started for better coverage - continue to follow glucose readings 11/08: - Increased Levemir to 40 units BID - held in PM due NPO - High sugar likely due to tube feeding - held - f/u with vp cardiovascular for recs 11/07: - Increased Levemir to 33 units BID - High sugar likely due to tube feeding 7.Prophylactic measure - SCDs - Protonix 40mg IV daily - Right TLC placed 10/23/17 <Jessica Parsons - Last Filed: 11/11/17 12:26> Objective - Vital Signs/Intake and Output Vital Signs (last 24 hours): Temp Pulse Resp BP Pulse Ox 97.2 F L 91 H 20 128/74 98 11/11/17 07:00 11/11/17 07:00 11/11/17 07:00 11/11/17 07:00 11/11/17 07:00 Intake and Output: 11/11/17 11/11/17 06:59 18:59 Intake Total 1470 Output Total 800 Balance 670 - Medications Medications: Current Medications Amantadine HCl (Symmetrel) 100 mg PO DAILY [facility] Last Admin: 11/10/17 12:22 Dose: 100 mg Ascorbic Acid (Vitamin C 500 Mg Tab) 500 mg GT DAILY [facility] Last Admin: 11/10/17 11:54 Dose: 500 mg Dextrose (Dextrose 50% Inj) 0 ml IV STAT PRN; Protocol PRN Reason: Hypoglycemia Protocol Dextrose (Glutose 15) 0 gm GT ONCE PRN; Protocol PRN Reason: Hypoglycemia Protocol Glucagon (Glucagen Diagnostic Kit) 0 mg IM STAT PRN; Protocol PRN Reason: Hypoglycemia Protocol Valproate Sodium 500 mg/ (Sodium Chloride) 105 mls @ 100 mls/hr IVPB Q12H [facility] Last Admin: 11/03/17 01:14 Dose: 100 mls/hr Meropenem 1 gm/ Sodium (Chloride) 100 mls @ 100 mls/hr IVPB Q8 [facility] PRN Reason: Protocol Last Admin: 11/11/17 06:01 Dose: 100 mls/hr Vancomycin/Sodium Chloride (Vancomycin 1 Gm/Ns 200 Ml) 1 gm in 200 mls @ 133.333 mls/hr IVPB Q12H [facility] PRN Reason: Protocol Stop: 11/12/17 13:01 Last Admin: 11/11/17 00:53 Dose: 133.333 mls/hr Micafungin Sodium 100 mg/ (Sodium Chloride) 100 mls @ 100 mls/hr IV Q24H [facility] PRN Reason: Protocol Last Admin: 11/10/17 17:00 Dose: 100 mls/hr Insulin Aspart (Novolog) 0 unit SC Q6H [facility] PRN Reason: Protocol Last Admin: 11/11/17 06:59 Dose: 4 units Insulin Glargine (Lantus) 30 unit SC HS [facility] Latanoprost (Xalatan Opht) 0 ml OU HS [facility] Last Admin: 11/10/17 22:25 Dose: 2.5 ml Losartan Potassium (Cozaar) 25 mg NG DAILY [facility] Last Admin: 11/10/17 11:55 Dose: 25 mg Pantoprazole Sodium (Protonix Susp) 40 mg GT DAILY [facility] Last Admin: 11/10/17 11:54 Dose: 40 mg - Labs Labs: 11/11/17 07:38 11/11/17 07:38 PT 13.0 SECONDS (9.7-12.2) H 10/23/17 04:53 INR 1.2 10/23/17 04:53 APTT 24 SECONDS (21-34) 10/23/17 04:53 Attending/Attestation - Attestation I have personally seen and examined this patient.: Yes I have fully participated in the care of the patient.: Yes I have reviewed all pertinent clinical information, including history, physical exam and plan: Yes Notes (Text): Patient was seen and examined with the resident. she is alert and answering questions,t . Denies pain,Her abdominal distension is better than yesterday,no diarrhea,No SOB,no cellulitis, Feeding resumed,Increase her Lantus for better control s/p CT chest,abdomen and pelvis. Reports discussed with Dr Rios yesterday. He did the Tap.CSF is clear with low wbc/not the sauce of infection. Her shunt is in pleural cavity. We got CT sinus,CT chest,abd,pelvis. No sauce of infection noted,little effusion note on the left side.Discussed with Dr Bolaños .He looked at her CT chest. no pneumonia.Small effusion.If fever spikes may ask IR to tap .Dr bergeron started on Micafungin yesterday I discussed with Dr carbajal about her fever , abdominal distension and PEG days ago.Surgery saw her Discussed with Dr burgos . He will see the pt. His recommendation to to place peg once her fever come down/treat infection Persistent fever spikes. Dr Bergeron recommend for an ENT evaluaion Spoke to Dr Omalley. He does't think sinusitis is causing fever. He is recommending to avoid NG tube or change.Awaiting for PEG if fever comes down. Her mental status is much better today. May try swallowing evaluation on Monday if she continuously improving. We will continue merrem,vanco and Micafungin. Cultures are negative. we will follow closely with DR Bergeron Assessment and the plan discussed with the patient's daughter over the phone. d/w Resident and I agrees with the documentation
[2017-11-10 06:23] LABS: BASO # 0.1 K/uL (0.0-0.2); EOS # 0.1 K/uL (0.0-0.7); EOS % 0.8 % (0.0-4.0); HEMOGLOBIN 11.6 g/dL (11.0-16.0); LYMPH # 1.8 K/uL (1.0-4.3); LYMPH % 17.4 % (20.0-40.0); MEAN CELL VOLUME 86.5 fL (81.0-99.0); MEAN CORPUSCULAR HEMOGLOBIN 29.1 pg (27.0-31.0); MEAN CORPUSCULAR HGB CONC 33.7 g/dL (33.0-37.0); MEAN PLATELET VOLUME 8.3 fL (7.2-11.7); MONO % 9.2 % (0.0-10.0); NEUT # 7.5 K/uL (1.8-7.0); NEUT % 71.6 % (50.0-75.0); NRBC % 0.1 % (0.0-2.0); RBC 3.99 Mil/uL (3.80-5.20); RED CELL DISTRIBUTION WIDTH 15.1 % (11.5-14.5); WHITE BLOOD COUNT 10.5 K/uL (4.8-10.8)
[2017-11-10 06:47] LABS: ALBUMIN 3.1 g/dL (3.5-5.0); ALT/SGPT 61 U/L (9-52); AST/SGOT 46 U/L (14-36); BLOOD UREA NITROGEN 28 mg/dL (7-17); CALCIUM 8.4 mg/dl (8.6-10.4); GFR AFRICAN-AMERICAN > 60; GFR NON-AFRICAN AMERICAN > 60
[2017-11-10] MEDS: (Novolog) Insulin Aspart, Recombinant 100 u/ml 10 ml vial SC SCH ×3 (06:53→18:45)
--- NOTE | 2017-11-10 07:49 | CP.PCM.PN ---
Subjective - Date & Time of Evaluation Date of Evaluation: 11/10/17 Time of Evaluation: 07:49 - Subjective Subjective: Ms. Diaz was seen and examined at the bedside. She is awake, able to verbalize few words such as " samantha recinos," able to answer some questions and denies any headache, dizziness, lightheadedness, nausea, or vomiting but very slow to talk.She is easily response ( opening her eyes) to verbal stimuli. She is able to follow simple commands and uses her hand gesture to answer questions.with her lower extremities weaker than the lower extremities.She has bilateral lower SCD's. There was no untoward events overnight. Objective - Vital Signs/Intake and Output Vital Signs (last 24 hours): Temp Pulse Resp BP Pulse Ox 98.3 F 109 H 20 146/73 96 11/09/17 23:15 11/09/17 23:15 11/09/17 23:15 11/10/17 03:40 11/09/17 23:15 - Medications Medications: Current Medications Amantadine HCl (Symmetrel) 100 mg PO DAILY [facility] Last Admin: 11/09/17 10:25 Dose: 100 mg Ascorbic Acid (Vitamin C 500 Mg Tab) 500 mg GT DAILY [facility] Last Admin: 11/09/17 10:24 Dose: 500 mg Bisacodyl (Dulcolax) 10 mg HI ONCE ONE Stop: 11/10/17 08:51 Dextrose (Dextrose 50% Inj) 0 ml IV STAT PRN; Protocol PRN Reason: Hypoglycemia Protocol Dextrose (Glutose 15) 0 gm GT ONCE PRN; Protocol PRN Reason: Hypoglycemia Protocol Glucagon (Glucagen Diagnostic Kit) 0 mg IM STAT PRN; Protocol PRN Reason: Hypoglycemia Protocol Valproate Sodium 500 mg/ (Sodium Chloride) 105 mls @ 100 mls/hr IVPB Q12H [facility] Last Admin: 11/03/17 01:14 Dose: 100 mls/hr Meropenem 1 gm/ Sodium (Chloride) 100 mls @ 100 mls/hr IVPB Q8 [facility] PRN Reason: Protocol Last Admin: 11/10/17 05:30 Dose: 100 mls/hr Vancomycin/Sodium Chloride (Vancomycin 1 Gm/Ns 200 Ml) 1 gm in 200 mls @ 133.333 mls/hr IVPB Q12H [facility] PRN Reason: Protocol Stop: 11/12/17 13:01 Last Admin: 11/10/17 01:38 Dose: 133.333 mls/hr Micafungin Sodium 100 mg/ (Sodium Chloride) 100 mls @ 100 mls/hr IV Q24H [facility] PRN Reason: Protocol Last Admin: 11/09/17 17:59 Dose: 100 mls/hr Sodium Chloride (Sodium Chloride 0.9%) 1,000 mls @ 125 mls/hr IV .Q8H [facility] Last Admin: 11/10/17 04:41 Dose: Not Given Insulin Aspart (Novolog) 0 unit SC Q6H [facility] PRN Reason: Protocol Last Admin: 11/10/17 06:53 Dose: 3 units Insulin Glargine (Lantus) 20 unit SC HS [facility]PL[facility] Last Admin: 11/09/17 22:46 Dose: 20 units Latanoprost (Xalatan Opht) 0 ml OU HS [facility]PL[facility] Last Admin: 11/09/17 22:47 Dose: 1 ml Losartan Potassium (Cozaar) 25 mg NG DAILY [facility] Last Admin: 11/09/17 10:25 Dose: 25 mg Ondansetron HCl (Zofran Inj) 4 mg IVP Q6H PRN PRN Reason: Nausea/Vomiting Pantoprazole Sodium (Protonix Susp) 40 mg GT DAILY [facility] - Labs Labs: 11/10/17 06:11 11/10/17 06:11 PT 13.0 SECONDS (9.7-12.2) H 10/23/17 04:53 INR 1.2 10/23/17 04:53 APTT 24 SECONDS (21-34) 10/23/17 04:53 - Constitutional Appears: No Acute Distress - Head Exam Head Exam: NORMAL INSPECTION - Eye Exam Pupil Exam: Miosis Additional comments: 2 mm, - Neurological Exam Neurological Exam: Awake Neuro motor strength exam: Left Upper Extremity: 3, Right Upper Extremity: 3, Left Lower Extremity: 2/1, Right Lower Extremity: 2/1 Additional comments: awake, slow to verbally response, follows commands. Assessment and Plan (1) Mental status change Assessment & Plan: Case discussed with Dr. Nixon, continue all current medical, physical, and occupational therapies. Recommend follow any orders from neurosurgery and ID, keeping head of bed elevated at least 40 degrees, monitor neuro status, normothermic, blood pressure and glycemic control. Status: Acute
--- NOTE | 2017-11-10 08:11 | PN ---
DATE: 11/09/2017 SUBJECTIVE: The patient was started on antibiotics for the last two days as she was running fevers. I came to see her. She was also seen by the neurosurgeon. She also had done and she has a GRAIN ELEVATOR MAN shunt, which was changed to the left-side and is draining into the pleural cavity. Right now, she does have a fever going off and on. Temp was 102.40 yesterday, now it is 101.1, but she appears to be verbalizing. PHYSICAL EXAMINATION: GENERAL: She does have an NG tube present and she has been the longest time here patient, but more alert. She denies any complaints. She is verbalizing today. VITAL SIGNS: Her heart rate is 103, blood pressure 135/88, and respirations are 20. HEENT: Head is atraumatic. There are sutures on the scalp and the prior ones were removed. NECK: She does have dressing in her left neck. LUNGS: Clear. No crackles or rales present. HEART: S1 and S2 tachycardic, at this time mildly tachycardic. ABDOMEN: Soft, nontender. No guarding. No rigidity present. EXTREMITIES: Has foot protectors on. LABORATORY DATA: Labs are noted. Labs show white count is 10.1, hemoglobin 11.9, hematocrit 35.3, and platelet count is 270. Sodium is 148, potassium 3.5, chlorides are 111, CO2 is 29, anion gap is 12, BUN is 39, creatinine 0.7 and sugars are still running high at 315. Spinal fluid, which was done today shows 1 WBC, 39 RBC, glucose is 151, protein of 54, which appears to be unremarkable as a fact that there is more RBCs than WBCs and she is more awake at this time. Cultures will be sent from the CSF. Urine culture came out less than 10,000 proteus species, which is covered with meropenem at this time and she is getting vancomycin 1 gm every 12 hours and she is on Merrem. ASSESSMENT AND PLAN: So, etiology of her fever still remains unclear whether it is sinusitis. She had multiple central nervous system surgeries, but cerebrospinal fluid appears to be unremarkable. There were some blood in it. There was blood in the cavity causing fever though now urinary tract infection, which was treated with present antibiotics and the patient also is being looked up for abdominal source and CAT scans have been ordered if these do not reach anywhere, we will do a set of DEXA scan as the patient does have a shunt present and had multiple lines and stuff, but recent cultures have all been negative except this urine catheterization, which came out to be proteus. Also we will change the Fernandez catheter in the morning if she has one, we will find out from the nurse. She remains bed-bound at this time and they are asking for insertion, which probably can be done once she is afebrile. Naga Milton MD
--- NOTE | 2017-11-10 08:20 | CP.PCM.PN ---
Subjective - Date & Time of Evaluation Date of Evaluation: 11/10/17 Time of Evaluation: 08:17 - Subjective Subjective: Patient is less alert today, not responding to questions. CT scan shows right ethmoid sinus and right sphenoid sinus opacification. Objective - Vital Signs/Intake and Output Vital Signs (last 24 hours): Temp Pulse Resp BP Pulse Ox 98.3 F 109 H 20 146/73 96 11/09/17 23:15 11/09/17 23:15 11/09/17 23:15 11/10/17 03:40 11/09/17 23:15 - Medications Medications: Current Medications Amantadine HCl (Symmetrel) 100 mg PO DAILY [facility] Last Admin: 11/09/17 10:25 Dose: 100 mg Ascorbic Acid (Vitamin C 500 Mg Tab) 500 mg GT DAILY [facility] Last Admin: 11/09/17 10:24 Dose: 500 mg Bisacodyl (Dulcolax) 10 mg [place] ONCE ONE Stop: 11/10/17 08:51 Dextrose (Dextrose 50% Inj) 0 ml IV STAT PRN; Protocol PRN Reason: Hypoglycemia Protocol Dextrose (Glutose 15) 0 gm GT ONCE PRN; Protocol PRN Reason: Hypoglycemia Protocol Glucagon (Glucagen Diagnostic Kit) 0 mg IM STAT PRN; Protocol PRN Reason: Hypoglycemia Protocol Valproate Sodium 500 mg/ (Sodium Chloride) 105 mls @ 100 mls/hr IVPB Q12H [facility] Last Admin: 11/03/17 01:14 Dose: 100 mls/hr Meropenem 1 gm/ Sodium (Chloride) 100 mls @ 100 mls/hr IVPB Q8 [facility] PRN Reason: Protocol Last Admin: 11/10/17 05:30 Dose: 100 mls/hr Vancomycin/Sodium Chloride (Vancomycin 1 Gm/Ns 200 Ml) 1 gm in 200 mls @ 133.333 mls/hr IVPB Q12H [facility] PRN Reason: Protocol Stop: 11/12/17 13:01 Last Admin: 11/10/17 01:38 Dose: 133.333 mls/hr Micafungin Sodium 100 mg/ (Sodium Chloride) 100 mls @ 100 mls/hr IV Q24H [facility] PRN Reason: Protocol Last Admin: 11/09/17 17:59 Dose: 100 mls/hr Sodium Chloride (Sodium Chloride 0.9%) 1,000 mls @ 125 mls/hr IV .Q8H [facility] Last Admin: 11/10/17 04:41 Dose: Not Given Insulin Aspart (Novolog) 0 unit SC Q6H [facility] PRN Reason: Protocol Last Admin: 11/10/17 06:53 Dose: 3 units Insulin Glargine (Lantus) 20 unit SC HS [facility] Last Admin: 11/09/17 22:46 Dose: 20 units Latanoprost (Xalatan Opht) 0 ml OU HS [facility] Last Admin: 11/09/17 22:47 Dose: 1 ml Losartan Potassium (Cozaar) 25 mg NG DAILY [facility] Last Admin: 11/09/17 10:25 Dose: 25 mg Ondansetron HCl (Zofran Inj) 4 mg IVP Q6H PRN PRN Reason: Nausea/Vomiting Pantoprazole Sodium (Protonix Susp) 40 mg GT DAILY [facility] - Labs Labs: 11/10/17 06:11 11/10/17 06:11 PT 13.0 SECONDS (9.7-12.2) H 10/23/17 04:53 INR 1.2 10/23/17 04:53 APTT 24 SECONDS (21-34) 10/23/17 04:53 - Constitutional Appears: No Acute Distress - Eye Exam Eye Exam: EOMI, PERRL - Neck Exam Neck Exam: absent: Lymphadenopathy, Thyromegaly - Respiratory Exam Respiratory Exam: NORMAL BREATHING PATTERN. absent: Rales, Rhonchi, Wheezes - Cardiovascular Exam Cardiovascular Exam: REGULAR RHYTHM, +S1, +S2. absent: Gallop, Rubs, Murmur - GI/Abdominal Exam GI & Abdominal Exam: Distended, Soft, Normal Bowel Sounds. absent: Tenderness, Mass, Organomegaly - Rectal Exam Rectal Exam: Deferred - Extremities Exam Extremities Exam: absent: Calf Tenderness, Pedal Edema Assessment and Plan (1) Dysphagia Assessment & Plan: CT scan shows opacification of right ethmoid and sphenoid sinuses. The colonic distention is described as chronic. We can attempt to place the gastrostomy endoscopically next week. Will need consent from the family. Status: Acute
[2017-11-10] MEDS ORDERED: (Lantus) Insulin Glargine, Recombinant SC STA (10:25)
[2017-11-10] MEDS ORDERED: Sodium Chloride 0.45% 1,000 ML IV SCH (10:30)
[2017-11-10] MEDS ORDERED: Acetaminophen 650mg/20.3ml solution UD PO STA (10:32)
[2017-11-10] MEDS: Pantoprazole 40 mg Susp UD GT SCH (11:54)
[2017-11-10] MEDS: Amantadine 50 mg/5 ml Syrup (473 ml) PO SCH (12:22)
--- NOTE | 2017-11-10 14:53 | CP.PCM.PN ---
Subjective - Date & Time of Evaluation Date of Evaluation: 11/10/17 Time of Evaluation: 02:40 - Subjective Subjective: dictated Objective - Vital Signs/Intake and Output Vital Signs (last 24 hours): Temp Pulse Resp BP Pulse Ox 102 F H 105 H 18 151/86 H 97 11/10/17 11:54 11/10/17 07:25 11/10/17 07:25 11/10/17 07:25 11/10/17 07:25 - Medications Medications: Current Medications Amantadine HCl (Symmetrel) 100 mg PO DAILY [facility] Last Admin: 11/10/17 12:22 Dose: 100 mg Ascorbic Acid (Vitamin C 500 Mg Tab) 500 mg GT DAILY [facility] Last Admin: 11/10/17 11:54 Dose: 500 mg Dextrose (Dextrose 50% Inj) 0 ml IV STAT PRN; Protocol PRN Reason: Hypoglycemia Protocol Dextrose (Glutose 15) 0 gm GT ONCE PRN; Protocol PRN Reason: Hypoglycemia Protocol Glucagon (Glucagen Diagnostic Kit) 0 mg IM STAT PRN; Protocol PRN Reason: Hypoglycemia Protocol Valproate Sodium 500 mg/ (Sodium Chloride) 105 mls @ 100 mls/hr IVPB Q12H [facility] Last Admin: 11/03/17 01:14 Dose: 100 mls/hr Meropenem 1 gm/ Sodium (Chloride) 100 mls @ 100 mls/hr IVPB Q8 [facility] PRN Reason: Protocol Last Admin: 11/10/17 14:38 Dose: 100 mls/hr Vancomycin/Sodium Chloride (Vancomycin 1 Gm/Ns 200 Ml) 1 gm in 200 mls @ 133.333 mls/hr IVPB Q12H [facility] PRN Reason: Protocol Stop: 11/12/17 13:01 Last Admin: 11/10/17 12:02 Dose: 133.333 mls/hr Micafungin Sodium 100 mg/ (Sodium Chloride) 100 mls @ 100 mls/hr IV Q24H [facility] PRN Reason: Protocol Last Admin: 11/09/17 17:59 Dose: 100 mls/hr Sodium Chloride (Sodium Chloride 0.45%) 1,000 mls @ 75 mls/hr IV .[id number] [facility] Stop: 11/10/17 23:49 Last Admin: 11/10/17 11:30 Dose: 75 mls/hr Insulin Aspart (Novolog) 0 unit SC Q6H [facility] PRN Reason: Protocol Last Admin: 11/10/17 13:00 Dose: 4 units Insulin Glargine (Lantus) 20 unit SC HS [facility] Last Admin: 11/09/17 22:46 Dose: 20 units Latanoprost (Xalatan Opht) 0 ml OU HS [facility] Last Admin: 11/09/17 22:47 Dose: 1 ml Losartan Potassium (Cozaar) 25 mg NG DAILY [facility] Last Admin: 11/10/17 11:55 Dose: 25 mg Pantoprazole Sodium (Protonix Susp) 40 mg GT DAILY [facility] Last Admin: 11/10/17 11:54 Dose: 40 mg - Labs Labs: 11/10/17 06:11 11/10/17 06:11 PT 13.0 SECONDS (9.7-12.2) H 10/23/17 04:53 INR 1.2 10/23/17 04:53 APTT 24 SECONDS (21-34) 10/23/17 04:53
[2017-11-10] MEDS: Micafungin 100 MG in Sodium Chloride 0.9% 100 ML IV SCH (17:00)
[2017-11-10] MEDS: (Lantus) Insulin Glargine, Recombinant SC SCH (22:25)
[2017-11-10] MEDS: Latanoprost 2.5 ml Opht Soln OU SCH (22:25)
[2017-11-11] MEDS: (Novolog) Insulin Aspart, Recombinant 100 u/ml 10 ml vial SC SCH ×4 (00:41→18:33)
[2017-11-11] MEDS: Vancomycin 1 gm/NS 200 ml 1 GM/200 ML BAG IVPB SCH ×2 (00:53→13:06)
[2017-11-11 01:03] VITALS: RESP 20
--- NOTE | 2017-11-11 03:51 | CON ---
DATE: 11/10/2017 REASON FOR CONSULTATION: Possible sinusitis. REQUESTING PHYSICIAN: Memo Parsons MD HISTORY OF PRESENT ILLNESS: This is a 66-year-old female who was noted to have sinus opacification on CAT scan. She does not complain of any nasal congestion, nasal discharge, or runny nose on either side for any time. PAST MEDICAL HISTORY: As noted in the chart by me. MEDICATIONS: As noted in the chart by me. PHYSICAL EXAMINATION: HEAD: Atraumatic, normocephalic. FACE: Good facial movements bilaterally. CONSTITUTIONAL: Well fed, well nourished. COMMUNICATION: The patient is a little sleepy, but however does communicate well and appropriately. EXTERNAL NOSE AND EARS: No masses. No lesions. No erythema. No edema. INTERNAL NOSE: Deviated septum. NG tube on the right. On exam, no masses, no lesions, no erythema, no edema. ORAL CAVITY AND OROPHARYNX: No masses. No lesions. No erythema. No edema. LIPS AND GUMS: No masses. No lesions. No erythema. No edema. NECK: Supple. THYROID: No thyromegaly. No goiter. LYMPH NODES: No lymphadenopathy of the neck. DIAGNOSTIC DATA: CAT scan reviewed by me, revealed sinus opacification in the ethmoid and sphenoid sinuses on the left. This is the site where the NG tube is on. ASSESSMENT AND PLAN: 1. Fever, unlikely to be from sinus infection. Recommend antibiotic and nasal decongestant and removal of NG tube as soon as possible. 2. Deviated septum. Maximo Lawrence MD
[2017-11-11] MEDS: Meropenem 1 GM in Sodium Chloride 0.9% 100 ML IVPB SCH ×3 (06:01→22:13)
[2017-11-11 07:52] LABS: BASO # 0.1 K/uL (0.0-0.2); BASO % 0.9 % (0.0-2.0); EOS # 0.2 K/uL (0.0-0.7); HEMOGLOBIN 11.3 g/dL (11.0-16.0); LYMPH # 1.5 K/uL (1.0-4.3); LYMPH % 15.5 % (20.0-40.0); MEAN CELL VOLUME 86.9 fL (81.0-99.0); MEAN CORPUSCULAR HEMOGLOBIN 29.1 pg (27.0-31.0); MEAN CORPUSCULAR HGB CONC 33.5 g/dL (33.0-37.0); MEAN PLATELET VOLUME 8.7 fL (7.2-11.7); MONO # 0.8 K/uL (0.0-0.8); MONO % 7.8 % (0.0-10.0); NEUT # 7.1 K/uL (1.8-7.0); NEUT % 73.8 % (50.0-75.0); RBC 3.89 Mil/uL (3.80-5.20); RED CELL DISTRIBUTION WIDTH 14.9 % (11.5-14.5); WHITE BLOOD COUNT 9.7 K/uL (4.8-10.8)
[2017-11-11 08:11] LABS: ALB/GLOB RATIO 1.1 (1.0-2.1); ALBUMIN 2.9 g/dL (3.5-5.0); ALT/SGPT 58 U/L (9-52); AST/SGOT 47 U/L (14-36); BLOOD UREA NITROGEN 27 mg/dL (7-17); CALCIUM 8.2 mg/dl (8.6-10.4); GFR AFRICAN-AMERICAN > 60; GFR NON-AFRICAN AMERICAN > 60
--- NOTE | 2017-11-11 10:08 | CP.PCM.PN ---
Subjective - Date & Time of Evaluation Date of Evaluation: 11/11/17 Time of Evaluation: 09:50 - Subjective Subjective: F/U dysphagia. Covering Dr Araujo Brother is present. I called daughter and discussed the situation and PEG. No report of RB, melena, cough, SOB, SZ, hematuria, hemoptysis, tremor Objective - Vital Signs/Intake and Output Vital Signs (last 24 hours): Temp Pulse Resp BP Pulse Ox 97.2 F L 91 H 20 128/74 98 11/11/17 07:00 11/11/17 07:00 11/11/17 07:00 11/11/17 07:00 11/11/17 07:00 Intake and Output: 11/11/17 11/11/17 06:59 18:59 Intake Total 1470 Output Total 800 Balance 670 - Medications Medications: Current Medications Amantadine HCl (Symmetrel) 100 mg PO DAILY [facility] Last Admin: 11/10/17 12:22 Dose: 100 mg Ascorbic Acid (Vitamin C 500 Mg Tab) 500 mg GT DAILY [facility] Last Admin: 11/10/17 11:54 Dose: 500 mg Dextrose (Dextrose 50% Inj) 0 ml IV STAT PRN; Protocol PRN Reason: Hypoglycemia Protocol Dextrose (Glutose 15) 0 gm GT ONCE PRN; Protocol PRN Reason: Hypoglycemia Protocol Glucagon (Glucagen Diagnostic Kit) 0 mg IM STAT PRN; Protocol PRN Reason: Hypoglycemia Protocol Valproate Sodium 500 mg/ (Sodium Chloride) 105 mls @ 100 mls/hr IVPB Q12H [facility] Last Admin: 11/03/17 01:14 Dose: 100 mls/hr Meropenem 1 gm/ Sodium (Chloride) 100 mls @ 100 mls/hr IVPB Q8 [facility] PRN Reason: Protocol Last Admin: 11/11/17 06:01 Dose: 100 mls/hr Vancomycin/Sodium Chloride (Vancomycin 1 Gm/Ns 200 Ml) 1 gm in 200 mls @ 133.333 mls/hr IVPB Q12H [facility] PRN Reason: Protocol Stop: 11/12/17 13:01 Last Admin: 11/11/17 00:53 Dose: 133.333 mls/hr Micafungin Sodium 100 mg/ (Sodium Chloride) 100 mls @ 100 mls/hr IV Q24H [facility] PRN Reason: Protocol Last Admin: 11/10/17 17:00 Dose: 100 mls/hr Insulin Aspart (Novolog) 0 unit SC Q6H [facility] PRN Reason: Protocol Last Admin: 11/11/17 06:59 Dose: 4 units Insulin Glargine (Lantus) 30 unit SC HS [facility] Latanoprost (Xalatan Opht) 0 ml OU HS [facility] Last Admin: 11/10/17 22:25 Dose: 2.5 ml Losartan Potassium (Cozaar) 25 mg NG DAILY [facility] Last Admin: 11/10/17 11:55 Dose: 25 mg Pantoprazole Sodium (Protonix Susp) 40 mg GT DAILY [facility] Last Admin: 11/10/17 11:54 Dose: 40 mg - Labs Labs: 11/11/17 07:38 11/11/17 07:38 PT 13.0 SECONDS (9.7-12.2) H 10/23/17 04:53 INR 1.2 10/23/17 04:53 APTT 24 SECONDS (21-34) 10/23/17 04:53 - Constitutional Appears: Chronically Ill - Respiratory Exam Respiratory Exam: Clear to Ausculation Bilateral - Cardiovascular Exam Cardiovascular Exam: RRR - GI/Abdominal Exam GI & Abdominal Exam: Soft, Normal Bowel Sounds. absent: Tenderness, Mass - Neurological Exam Neurological Exam: absent: Oriented x3 Assessment and Plan (1) Diabetes mellitus Status: Acute (2) Dysphagia Assessment & Plan: Needs PEG. ISSUES- fever, chr colon distention. Status: Acute (3) Hydrocephalus Status: Acute (4) Mental status change Status: Acute (5) HTN (hypertension) Status: Acute
[2017-11-11] MEDS: Pantoprazole 40 mg Susp UD GT SCH (10:46)
--- NOTE | 2017-11-11 10:50 | CP.PCM.PN ---
Subjective - Date & Time of Evaluation Date of Evaluation: 11/11/17 Time of Evaluation: 09:00 - Subjective Subjective: Seen and examined, Patient is awake .More alert than yesterday." Fine thank you ". Denies pain,states that she is little hungry,lying comfortable,no fever this morning Getting NG feeding. No vomiting ,Had watery stool x 1 this afternoon. She has a new broke blister on her right hip. Not infected/pink base D/w at bed side Objective - Vital Signs/Intake and Output Vital Signs (last 24 hours): Temp Pulse Resp BP Pulse Ox 97.2 F L 91 H 20 128/74 98 11/11/17 07:00 11/11/17 07:00 11/11/17 07:00 11/11/17 07:00 11/11/17 07:00 Intake and Output: 11/11/17 11/11/17 06:59 18:59 Intake Total 1470 Output Total 800 Balance 670 - Medications Medications: Current Medications Amantadine HCl (Symmetrel) 100 mg PO DAILY [facility] Last Admin: 11/10/17 12:22 Dose: 100 mg Ascorbic Acid (Vitamin C 500 Mg Tab) 500 mg GT DAILY [facility] Last Admin: 11/10/17 11:54 Dose: 500 mg Dextrose (Dextrose 50% Inj) 0 ml IV STAT PRN; Protocol PRN Reason: Hypoglycemia Protocol Dextrose (Glutose 15) 0 gm GT ONCE PRN; Protocol PRN Reason: Hypoglycemia Protocol Glucagon (Glucagen Diagnostic Kit) 0 mg IM STAT PRN; Protocol PRN Reason: Hypoglycemia Protocol Valproate Sodium 500 mg/ (Sodium Chloride) 105 mls @ 100 mls/hr IVPB Q12H [facility] Last Admin: 11/03/17 01:14 Dose: 100 mls/hr Meropenem 1 gm/ Sodium (Chloride) 100 mls @ 100 mls/hr IVPB Q8 [facility] PRN Reason: Protocol Last Admin: 11/11/17 06:01 Dose: 100 mls/hr Vancomycin/Sodium Chloride (Vancomycin 1 Gm/Ns 200 Ml) 1 gm in 200 mls @ 133.333 mls/hr IVPB Q12H [facility] PRN Reason: Protocol Stop: 11/12/17 13:01 Last Admin: 11/11/17 00:53 Dose: 133.333 mls/hr Micafungin Sodium 100 mg/ (Sodium Chloride) 100 mls @ 100 mls/hr IV Q24H [facility] PRN Reason: Protocol Last Admin: 11/10/17 17:00 Dose: 100 mls/hr Insulin Aspart (Novolog) 0 unit SC Q6H [facility] PRN Reason: Protocol Last Admin: 11/11/17 06:59 Dose: 4 units Insulin Glargine (Lantus) 30 unit SC HS [facility] Latanoprost (Xalatan Opht) 0 ml OU HS [facility] Last Admin: 11/10/17 22:25 Dose: 2.5 ml Losartan Potassium (Cozaar) 25 mg NG DAILY [facility] Last Admin: 11/10/17 11:55 Dose: 25 mg Pantoprazole Sodium (Protonix Susp) 40 mg GT DAILY [facility] Last Admin: 11/10/17 11:54 Dose: 40 mg - Labs Labs: 11/11/17 07:38 11/11/17 07:38 PT 13.0 SECONDS (9.7-12.2) H 10/23/17 04:53 INR 1.2 10/23/17 04:53 APTT 24 SECONDS (21-34) 10/23/17 04:53 - Constitutional Appears: Non-toxic, Chronically Ill - Head Exam Head Exam: absent: ATRAUMATIC (scalp clayton in place) - Eye Exam Eye Exam: Normal appearance - ENT Exam ENT Exam: Mucous Membranes Moist - Neck Exam Neck Exam: Full ROM - Respiratory Exam Respiratory Exam: Clear to Ausculation Bilateral, NORMAL BREATHING PATTERN - Cardiovascular Exam Cardiovascular Exam: REGULAR RHYTHM - GI/Abdominal Exam GI & Abdominal Exam: Distended, Soft, Normal Bowel Sounds. absent: Tenderness - Extremities Exam Extremities Exam: Normal Capillary Refill. absent: Full ROM (generalized weakness), Pedal Edema - Neurological Exam Neurological Exam: Alert. absent: Oriented x3 (oriented to place and person) - Psychiatric Exam Psychiatric exam: Normal Affect, Normal Mood - Skin Skin Exam: Dry. absent: Intact (broken blister right hip area) Assessment and Plan - Assessment and Plan (Free Text) Plan: 1.Persistent fever Fever of unknown origin s/p negative venous doppler,CT chest,abdomen and pelvis done. source of infection not found .(No faley cath,no picc line,no cellulitis) No fever last night and this mornig CSF, blood, urine cultures all negative continue Vancomycin 1gm Q12H, Meropenem 1gm Q8H and Micafungi 2. Altered mental status -Improving S/P SLEEVE SEWER shunt revision and History of hydrocephalus Initial SLEEVE SEWER Shunt placed in 2014 Past history of SLEEVE SEWER Shunt repair 02/26/17 Multiple SLEEVE SEWER shunt revision during this hospitalization- 3rd this hospital stay (10/10/2017, 10/11/2017, 10/19/2017, 10/23/2017) Very slow mental status improvement Valproate 500mg IVP Q12H - HOLDING since 11/03 3. Dysphagia and change in mental status/lethargic On NG feeding GI consult and follow up appreciated Aspiration precaution Her mental status is improving .We will ask for swallowing evaluation on Monday 4. Abdominal Distention Improving ,She has chronic ileus s/p BM yesterday,no abdominal pain,has good bowel sound,seen by surgery Feeding resumed/tolerating 5. Hypertension On Lorsatan 6. Diabetes mellitus Continue Lantus,adjust the dose if sugar goes up 7.Right hip broken blister d/w RN apply medihoney and cover with optifoam wound care assessment 8.Diarrhea/one watery stool stool Cd toxin 7.Prophylactic measure - SCDs - Protonix 40mg IV daily Has poor venous access. Has Peripheral IV line
[2017-11-11] MEDS: Amantadine 50 mg/5 ml Syrup (473 ml) PO SCH (10:52)
[2017-11-11] MEDS ORDERED: Potassium Chloride 20 mEq/15 ml LIQ UD NG ONE (10:54)
[2017-11-11] MEDS: Micafungin 100 MG in Sodium Chloride 0.9% 100 ML IV SCH (17:00)
[2017-11-11] MEDS: Saccharomyces Boulardi 250 mg Cap NG SCH (18:33)
[2017-11-11] MEDS: Latanoprost 2.5 ml Opht Soln OU SCH (22:14)
[2017-11-11] MEDS: (Lantus) Insulin Glargine, Recombinant SC SCH (22:16)
[2017-11-12] MEDS: Vancomycin 1 gm/NS 200 ml 1 GM/200 ML BAG IVPB SCH ×2 (00:17→13:16)
[2017-11-12] MEDS: (Novolog) Insulin Aspart, Recombinant 100 u/ml 10 ml vial SC SCH ×4 (00:38→18:45)
[2017-11-12] MEDS: Meropenem 1 GM in Sodium Chloride 0.9% 100 ML IVPB SCH ×3 (05:01→21:57)
[2017-11-12 08:16] LABS: BASO # 0.1 K/uL (0.0-0.2); BASO % 0.8 % (0.0-2.0); EOS # 0.3 K/uL (0.0-0.7); EOS % 2.5 % (0.0-4.0); HEMOGLOBIN 11.2 g/dL (11.0-16.0); LYMPH # 1.5 K/uL (1.0-4.3); LYMPH % 14.5 % (20.0-40.0); MEAN CELL VOLUME 87.8 fL (81.0-99.0); MEAN CORPUSCULAR HEMOGLOBIN 29.2 pg (27.0-31.0); MEAN CORPUSCULAR HGB CONC 33.3 g/dL (33.0-37.0); MEAN PLATELET VOLUME 8.5 fL (7.2-11.7); MONO # 0.5 K/uL (0.0-0.8); MONO % 5.1 % (0.0-10.0); NEUT # 7.9 K/uL (1.8-7.0); NEUT % 77.1 % (50.0-75.0); RBC 3.85 Mil/uL (3.80-5.20); RED CELL DISTRIBUTION WIDTH 15.4 % (11.5-14.5); WHITE BLOOD COUNT 10.3 K/uL (4.8-10.8)
[2017-11-12 08:30] LABS: ALBUMIN 2.8 g/dL (3.5-5.0); ALT/SGPT 57 U/L (9-52); AST/SGOT 35 U/L (14-36); BLOOD UREA NITROGEN 24 mg/dL (7-17); CALCIUM 8.3 mg/dl (8.6-10.4); GFR AFRICAN-AMERICAN > 60; GFR NON-AFRICAN AMERICAN > 60
[2017-11-12] MEDS: Pantoprazole 40 mg Susp UD GT SCH (09:33)
[2017-11-12] MEDS: Saccharomyces Boulardi 250 mg Cap NG SCH ×2 (09:33→18:45)
--- NOTE | 2017-11-12 11:10 | CP.PCM.PN ---
Subjective - Date & Time of Evaluation Date of Evaluation: 11/12/17 Time of Evaluation: 10:30 - Subjective Subjective: F/u dysphagia. Covering DR Araujo No RB, melena, fever, SZ, hematuria, hemoptysis RN present. Brother present Objective - Vital Signs/Intake and Output Vital Signs (last 24 hours): Temp Pulse Resp BP Pulse Ox 98.0 F 68 20 145/86 98 11/12/17 07:35 11/12/17 07:35 11/12/17 07:35 11/12/17 07:35 11/12/17 07:35 Intake and Output: 11/12/17 11/12/17 06:59 18:59 Intake Total 1125 Output Total 1100 Balance 25 - Medications Medications: Current Medications Ascorbic Acid (Vitamin C 500 Mg Tab) 500 mg GT DAILY [facility] Last Admin: 11/11/17 10:46 Dose: 500 mg Dextrose (Dextrose 50% Inj) 0 ml IV STAT PRN; Protocol PRN Reason: Hypoglycemia Protocol Dextrose (Glutose 15) 0 gm GT ONCE PRN; Protocol PRN Reason: Hypoglycemia Protocol Glucagon (Glucagen Diagnostic Kit) 0 mg IM STAT PRN; Protocol PRN Reason: Hypoglycemia Protocol Valproate Sodium 500 mg/ (Sodium Chloride) 105 mls @ 100 mls/hr IVPB Q12H [facility] Last Admin: 11/03/17 01:14 Dose: 100 mls/hr Meropenem 1 gm/ Sodium (Chloride) 100 mls @ 100 mls/hr IVPB Q8 [facility] PRN Reason: Protocol Last Admin: 11/12/17 05:01 Dose: 100 mls/hr Vancomycin/Sodium Chloride (Vancomycin 1 Gm/Ns 200 Ml) 1 gm in 200 mls @ 133.333 mls/hr IVPB Q12H [facility] PRN Reason: Protocol Stop: 11/12/17 13:01 Last Admin: 11/12/17 00:17 Dose: 133.333 mls/hr Micafungin Sodium 100 mg/ (Sodium Chloride) 100 mls @ 100 mls/hr IV Q24H [facility] PRN Reason: Protocol Last Admin: 11/11/17 17:00 Dose: 100 mls/hr Insulin Aspart (Novolog) 0 unit SC Q6H [facility] PRN Reason: Protocol Last Admin: 11/12/17 06:59 Dose: 3 units Insulin Glargine (Lantus) 30 unit SC HS [facility] Last Admin: 11/11/17 22:16 Dose: 30 unit Latanoprost (Xalatan Opht) 0 ml OU HS [facility] Last Admin: 11/11/17 22:14 Dose: 2.5 ml Losartan Potassium (Cozaar) 25 mg NG DAILY [facility] Last Admin: 11/12/17 09:32 Dose: 25 mg Pantoprazole Sodium (Protonix Susp) 40 mg GT DAILY [facility] Last Admin: 11/12/17 09:33 Dose: 40 mg Saccharomyces Boulardii (Florastor) 250 mg NG BID [facility] Last Admin: 11/12/17 09:33 Dose: 250 mg - Labs Labs: 11/12/17 08:01 11/12/17 08:01 PT 13.0 SECONDS (9.7-12.2) H 10/23/17 04:53 INR 1.2 10/23/17 04:53 APTT 24 SECONDS (21-34) 10/23/17 04:53 - Constitutional Appears: Confused - Respiratory Exam Respiratory Exam: Clear to Ausculation Bilateral - Cardiovascular Exam Cardiovascular Exam: RRR - GI/Abdominal Exam GI & Abdominal Exam: Soft, Normal Bowel Sounds. absent: Tenderness, Mass - Neurological Exam Neurological Exam: Alert, Awake. absent: Oriented x3 Assessment and Plan (1) Diabetes mellitus Status: Acute (2) Dysphagia Assessment & Plan: More awake. Hold PEG. Check P.O. intake and swallow eval Status: Acute (3) Hydrocephalus Status: Acute (4) Mental status change Status: Acute (5) HTN (hypertension) Status: Acute
--- NOTE | 2017-11-12 11:48 | CP.PCM.PN ---
Subjective - Date & Time of Evaluation Date of Evaluation: 11/12/17 Time of Evaluation: 08:35 - Subjective Subjective: seen and examined this morning and spoke to her RN Patient is awake and oriented,more alert last three days. No fever spikes since yesterday. last fever on 11/10 afternoon Denies pain,following directions,asking for water and drink coffee. D/W daughter over the phone . patient was asking for coffee and ice cream. Discussed about swallowing trial by speech tomorrow .We will hold PEG plan. It she tolerates remove NG tube Objective - Vital Signs/Intake and Output Vital Signs (last 24 hours): Temp Pulse Resp BP Pulse Ox 98.0 F 68 20 145/86 98 11/12/17 07:35 11/12/17 07:35 11/12/17 07:35 11/12/17 07:35 11/12/17 07:35 Intake and Output: 11/12/17 11/12/17 06:59 18:59 Intake Total 1125 Output Total 1100 Balance 25 - Medications Medications: Current Medications Ascorbic Acid (Vitamin C 500 Mg Tab) 500 mg GT DAILY [facility] Last Admin: 11/11/17 10:46 Dose: 500 mg Dextrose (Dextrose 50% Inj) 0 ml IV STAT PRN; Protocol PRN Reason: Hypoglycemia Protocol Dextrose (Glutose 15) 0 gm GT ONCE PRN; Protocol PRN Reason: Hypoglycemia Protocol Glucagon (Glucagen Diagnostic Kit) 0 mg IM STAT PRN; Protocol PRN Reason: Hypoglycemia Protocol Valproate Sodium 500 mg/ (Sodium Chloride) 105 mls @ 100 mls/hr IVPB Q12H [facility] Last Admin: 11/03/17 01:14 Dose: 100 mls/hr Meropenem 1 gm/ Sodium (Chloride) 100 mls @ 100 mls/hr IVPB Q8 [facility] PRN Reason: Protocol Last Admin: 11/12/17 05:01 Dose: 100 mls/hr Vancomycin/Sodium Chloride (Vancomycin 1 Gm/Ns 200 Ml) 1 gm in 200 mls @ 133.333 mls/hr IVPB Q12H [facility] PRN Reason: Protocol Stop: 11/12/17 13:01 Last Admin: 11/12/17 00:17 Dose: 133.333 mls/hr Micafungin Sodium 100 mg/ (Sodium Chloride) 100 mls @ 100 mls/hr IV Q24H [facility] PRN Reason: Protocol Last Admin: 11/11/17 17:00 Dose: 100 mls/hr Insulin Aspart (Novolog) 0 unit SC Q6H [facility] PRN Reason: Protocol Last Admin: 11/12/17 06:59 Dose: 3 units Insulin Glargine (Lantus) 30 unit SC HS [facility] Last Admin: 11/11/17 22:16 Dose: 30 unit Latanoprost (Xalatan Opht) 0 ml OU HS [facility] Last Admin: 11/11/17 22:14 Dose: 2.5 ml Losartan Potassium (Cozaar) 25 mg NG DAILY [facility] Last Admin: 11/12/17 09:32 Dose: 25 mg Pantoprazole Sodium (Protonix Susp) 40 mg GT DAILY [facility] Last Admin: 11/12/17 09:33 Dose: 40 mg Saccharomyces Boulardii (Florastor) 250 mg NG BID [facility] Last Admin: 11/12/17 09:33 Dose: 250 mg - Labs Labs: 11/12/17 08:01 11/12/17 08:01 PT 13.0 SECONDS (9.7-12.2) H 10/23/17 04:53 INR 1.2 10/23/17 04:53 APTT 24 SECONDS (21-34) 10/23/17 04:53 - Constitutional Appears: Chronically Ill - Head Exam Head Exam: absent: ATRAUMATIC (scalp surgery) - Eye Exam Eye Exam: Normal appearance - ENT Exam ENT Exam: Mucous Membranes Moist - Neck Exam Neck Exam: Full ROM - Respiratory Exam Respiratory Exam: Clear to Ausculation Bilateral, NORMAL BREATHING PATTERN - Cardiovascular Exam Cardiovascular Exam: REGULAR RHYTHM - GI/Abdominal Exam GI & Abdominal Exam: Distended, Soft, Normal Bowel Sounds. absent: Tenderness - Extremities Exam Extremities Exam: absent: Full ROM (linited due to weakness) - Back Exam Back Exam: NORMAL INSPECTION - Neurological Exam Neurological Exam: Alert - Psychiatric Exam Psychiatric exam: Normal Affect, Normal Mood - Skin Skin Exam: Dry, Normal Color Assessment and Plan - Assessment and Plan (Free Text) Plan: 1.Persistent fever_ Improving.No fever for the last 48 hrs Fever of unknown origin,last fever spikes on 11/10 afternoon s/p negative venous doppler,CT chest,abdomen and pelvis done. source of infection not found .(No faley cath,no picc line,no cellulitis) No fever last night and this mornig CSF, blood, urine cultures all negative,stool CD negative(S/P loose stool) continue Vancomycin 1gm Q12H, Meropenem 1gm Q8H and Micafungi follow Dr bergeron's recommendation 2. Altered mental status -Improving/signifianct change last 3 days S/P CONFERENCE PLANNER shunt revision and History of hydrocephalus Initial CONFERENCE PLANNER Shunt placed in 2014 Past history of CONFERENCE PLANNER Shunt repair 02/26/17 Multiple CONFERENCE PLANNER shunt revision during this hospitalization- 3rd this hospital stay (10/10/2017, 10/11/2017, 10/19/2017, 10/23/2017) Very slow mental status improvement Valproate 500mg IVP Q12H - HOLDING since 11/03 3. Dysphagia and change in mental status/lethargic On NG feeding GI consult and follow up appreciated Aspiration precaution Her mental status is improving .We will ask for swallowing evaluation on Monday d/w Dr mancia about hold PEG plan 4. Abdominal Distention Improving ,She has chronic ileus s/p BM yesterday,no abdominal pain,has good bowel sound,seen by surgery Feeding resumed/tolerating 5. Hypertension On Lorsatan 6. Diabetes mellitus Continue Lantus,Increase lantus if she not able start on oral diet 7.Right hip broken blister/sacral skin break Examined with RN yesterday apply medihoney and cover with optifoam Refer to mine foreman d/w daughter 8.Diarrhea/one watery stool stool Cd toxin negative 7.Prophylactic measure - SCDs - Protonix 40mg IV daily Has poor venous access. Has Peripheral IV line
[2017-11-12] MEDS ORDERED: (Lantus) Insulin Glargine, Recombinant SC ONE (12:13)
--- NOTE | 2017-11-12 13:57 | CP.PCM.PN ---
Subjective - Date & Time of Evaluation Date of Evaluation: 11/12/17 Time of Evaluation: 01:30 - Subjective Subjective: dictated Objective - Vital Signs/Intake and Output Vital Signs (last 24 hours): Temp Pulse Resp BP Pulse Ox 98.0 F 68 20 145/86 98 11/12/17 07:35 11/12/17 07:35 11/12/17 07:35 11/12/17 07:35 11/12/17 07:35 Intake and Output: 11/12/17 11/12/17 06:59 18:59 Intake Total 1125 Output Total 1100 Balance 25 - Medications Medications: Current Medications Ascorbic Acid (Vitamin C 500 Mg Tab) 500 mg GT DAILY [facility] Last Admin: 11/12/17 11:46 Dose: 500 mg Dextrose (Dextrose 50% Inj) 0 ml IV STAT PRN; Protocol PRN Reason: Hypoglycemia Protocol Dextrose (Glutose 15) 0 gm GT ONCE PRN; Protocol PRN Reason: Hypoglycemia Protocol Glucagon (Glucagen Diagnostic Kit) 0 mg IM STAT PRN; Protocol PRN Reason: Hypoglycemia Protocol Valproate Sodium 500 mg/ (Sodium Chloride) 105 mls @ 100 mls/hr IVPB Q12H [facility] Last Admin: 11/03/17 01:14 Dose: 100 mls/hr Meropenem 1 gm/ Sodium (Chloride) 100 mls @ 100 mls/hr IVPB Q8 [facility] PRN Reason: Protocol Last Admin: 11/12/17 05:01 Dose: 100 mls/hr Micafungin Sodium 100 mg/ (Sodium Chloride) 100 mls @ 100 mls/hr IV Q24H [facility] PRN Reason: Protocol Last Admin: 11/11/17 17:00 Dose: 100 mls/hr Insulin Aspart (Novolog) 0 unit SC Q6H [facility] PRN Reason: Protocol Last Admin: 11/12/17 12:02 Dose: 3 units Insulin Glargine (Lantus) 30 unit SC HS [facility] Last Admin: 11/11/17 22:16 Dose: 30 unit Latanoprost (Xalatan Opht) 0 ml OU HS [facility] Last Admin: 11/11/17 22:14 Dose: 2.5 ml Losartan Potassium (Cozaar) 25 mg NG DAILY [facility] Last Admin: 11/12/17 09:32 Dose: 25 mg Pantoprazole Sodium (Protonix Susp) 40 mg GT DAILY [facility] Last Admin: 11/12/17 09:33 Dose: 40 mg Saccharomyces Boulardii (Florastor) 250 mg NG BID [facility] Last Admin: 11/12/17 09:33 Dose: 250 mg - Labs Labs: 11/12/17 08:01 11/12/17 08:01 PT 13.0 SECONDS (9.7-12.2) H 10/23/17 04:53 INR 1.2 10/23/17 04:53 APTT 24 SECONDS (21-34) 10/23/17 04:53
[2017-11-12] MEDS: Micafungin 100 MG in Sodium Chloride 0.9% 100 ML IV SCH (16:57)
--- NOTE | 2017-11-12 19:16 | PN ---
DATE: 11/12/2017 SUBJECTIVE: The patient has been afebrile for last two days now. She also has an NG tube. She is more awake, alert, able to answer question and seems to be doing better. She has no fevers. Last fever was on 11/10/2017. She is asking for regular food, I think she should have a swallowing eval done before we think of a PEG, and if she is able to tolerate that, that would be fine. I have continued the IV antibiotics at this time. PHYSICAL EXAMINATION: VITAL SIGNS: T-Max 98, pulse 68, blood pressure 145/86, respirations are 20. HEENT: Head is atraumatic, normocephalic. The clayton are intact on the right frontal area. She is more verbalizing, still has NG tube and oxygen. NECK: Supple. LUNGS: Clear. HEART: S1 and S2 regular. ABDOMEN: Remains prominent. No guarding. No rigidity present. EXTREMITIES: Have these foot protectors. Family members at the bedside. LABORATORY DATA: , hemoglobin 11.2, hematocrit 33.8, platelet count is 225. BUN is 24, creatinine 0.5, and glucose is 237 and alk phos is 57, procalcitonin came out 0.14, which is still significant I would think. ASSESSMENT AND PLAN: So, at this time, I would leave her on all the antibiotics, which she is on; vancomycin, Merrem, and micafungin. She is afebrile on these for 10 to 14 days and she may go to rehab and she needs a swallowing eval. She is status post multiple surgeries for ventriculoperitoneal shunt and has normal pressure hydrocephalus in the past and now seems to be afebrile. Naga Milton MD
[2017-11-12] MEDS: Latanoprost 2.5 ml Opht Soln OU SCH (21:57)
[2017-11-12] MEDS: (Lantus) Insulin Glargine, Recombinant SC SCH (22:03)
[2017-11-13] MEDS: (Novolog) Insulin Aspart, Recombinant 100 u/ml 10 ml vial SC SCH ×4 (00:19→19:14)
[2017-11-13] MEDS: Meropenem 1 GM in Sodium Chloride 0.9% 100 ML IVPB SCH ×3 (05:13→21:34)
--- NOTE | 2017-11-13 07:14 | CP.PCM.PN ---
Subjective - Date & Time of Evaluation Date of Evaluation: 11/13/17 Time of Evaluation: 07:11 - Subjective Subjective: Ms. Diaz was seen and examined at the bedside. She is awake, alert, able to answer questions appropriately. She denies any headache, dizziness, and able to follow simple commands. According to staff, she is more alert these couple days. She is schedule to swallowing evaluation today. There was no untoward events overnight. Objective - Vital Signs/Intake and Output Vital Signs (last 24 hours): Temp Pulse Resp BP Pulse Ox 98.0 F 94 H 20 160/94 H 98 11/13/17 04:00 11/13/17 04:03 11/13/17 04:00 11/13/17 04:00 11/13/17 04:00 Intake and Output: 11/13/17 11/13/17 06:59 18:59 Intake Total 1010 Output Total 950 Balance 60 - Medications Medications: Current Medications Amantadine HCl (Symmetrel) 100 mg PO DAILY [facility] Ascorbic Acid (Vitamin C 500 Mg Tab) 500 mg GT DAILY [facility] Last Admin: 11/12/17 11:46 Dose: 500 mg Dextrose (Dextrose 50% Inj) 0 ml IV STAT PRN; Protocol PRN Reason: Hypoglycemia Protocol Dextrose (Glutose 15) 0 gm GT ONCE PRN; Protocol PRN Reason: Hypoglycemia Protocol Glucagon (Glucagen Diagnostic Kit) 0 mg IM STAT PRN; Protocol PRN Reason: Hypoglycemia Protocol Valproate Sodium 500 mg/ (Sodium Chloride) 105 mls @ 100 mls/hr IVPB Q12H [facility] Last Admin: 11/03/17 01:14 Dose: 100 mls/hr Meropenem 1 gm/ Sodium (Chloride) 100 mls @ 100 mls/hr IVPB Q8 [facility] PRN Reason: Protocol Last Admin: 11/13/17 05:13 Dose: 100 mls/hr Micafungin Sodium 100 mg/ (Sodium Chloride) 100 mls @ 100 mls/hr IV Q24H [facility] PRN Reason: Protocol Last Admin: 11/12/17 16:57 Dose: 100 mls/hr Insulin Aspart (Novolog) 0 unit SC Q6H [facility] PRN Reason: Protocol Last Admin: 11/13/17 06:51 Dose: 4 units Insulin Glargine (Lantus) 30 unit SC HS [facility] Last Admin: 11/12/17 22:03 Dose: 30 unit Latanoprost (Xalatan Opht) 0 ml OU HS [facility] Last Admin: 11/12/17 21:57 Dose: 2.5 ml Losartan Potassium (Cozaar) 25 mg NG DAILY [facility] Last Admin: 11/12/17 09:32 Dose: 25 mg Pantoprazole Sodium (Protonix Susp) 40 mg GT DAILY [facility] Last Admin: 11/12/17 09:33 Dose: 40 mg Saccharomyces Boulardii (Florastor) 250 mg NG BID [facility] Last Admin: 11/12/17 18:45 Dose: 250 mg - Labs Labs: 11/12/17 08:01 11/12/17 08:01 PT 13.0 SECONDS (9.7-12.2) H 10/23/17 04:53 INR 1.2 10/23/17 04:53 APTT 24 SECONDS (21-34) 10/23/17 04:53 - Constitutional Appears: No Acute Distress - Head Exam Head Exam: NORMAL INSPECTION - Eye Exam Pupil Exam: PERRL Additional comments: 3 mm bilaterally - Neurological Exam Neurological Exam: Awake Neuro motor strength exam: Left Upper Extremity: 3, Right Upper Extremity: 3, Left Lower Extremity: 2/1, Right Lower Extremity: 2/1 Additional comments: neurological unchanged from previous examination. Assessment and Plan (1) Mental status change Assessment & Plan: Continue all current medical, physical, and occupational therapies. Recommend follow any orders from neurosurgery and ID, keeping head of bed elevated at least 40 degrees, monitor neuro status, normothermic, blood pressure and glycemic control. Status: Acute
[2017-11-13 07:30] LABS: BASO % 0.5 % (0.0-2.0); EOS # 0.1 K/uL (0.0-0.7); EOS % 1.4 % (0.0-4.0); HEMOGLOBIN 11.1 g/dL (11.0-16.0); LYMPH # 1.2 K/uL (1.0-4.3); LYMPH % 12.7 % (20.0-40.0); MEAN CELL VOLUME 87.1 fL (81.0-99.0); MEAN CORPUSCULAR HEMOGLOBIN 29.1 pg (27.0-31.0); MEAN CORPUSCULAR HGB CONC 33.4 g/dL (33.0-37.0); MEAN PLATELET VOLUME 8.6 fL (7.2-11.7); MONO # 0.4 K/uL (0.0-0.8); MONO % 4.4 % (0.0-10.0); NEUT # 7.9 K/uL (1.8-7.0); NRBC % 0.1 % (0.0-2.0); RBC 3.83 Mil/uL (3.80-5.20); RED CELL DISTRIBUTION WIDTH 15.2 % (11.5-14.5); WHITE BLOOD COUNT 9.7 K/uL (4.8-10.8)
[2017-11-13 07:32] LABS: ALB/GLOB RATIO 1.1 (1.0-2.1); ALBUMIN 2.9 g/dL (3.5-5.0); ALT/SGPT 53 U/L (9-52); AST/SGOT 37 U/L (14-36); BLOOD UREA NITROGEN 24 mg/dL (7-17); CALCIUM 8.2 mg/dl (8.6-10.4); GFR AFRICAN-AMERICAN > 60; GFR NON-AFRICAN AMERICAN > 60
--- NOTE | 2017-11-13 07:43 | PN ---
DATE: 11/10/2017 SUBJECTIVE: The patient is opening her eyes, but still very drowsy and lethargic. She is having fevers. This morning, she had 102 and the reported heart rate of 105, blood pressure 151/86, respirations are 18. She has been verbalizing for the last two days, but having fevers. Has NG tube. We did a CAT scan of the abdomen which needs to be discussed with Dr. Rios or the neurologist following. The family is expecting answers and I do not know at this time in spite of adding three antifungals as well as antibacterial, vancomycin and meropenem. She continues to have fever and . She has had multiple PIT HAND procedures. They did do a cell count which was negative. Culture is pending of that. PHYSICAL EXAMINATION: HEENT: She opens her eyes. NECK: Supple. LUNGS: Clear. HEART: S1, S2 are regular, tachycardic. ABDOMEN: Flabby, prominent. No guarding, no rigidity present. She is going to get Dulcolax today. EXTREMITIES: Extremities are in pressure boots. Cannot evaluate much. LABORATORY DATA: Labs are noted. Labs show white count is 10.5 and hemoglobin 11.6. BUN is 28, creatinine 0.6, sodium is 149 which she remains with. Urine had proteus but it was less than 10,000. We have sent this. CSF is negative 24 hours. The cell count was unremarkable. We did a CAT scan of the abdomen and pelvis and maxillofacial sinuses and shows no evidence of facial bone fracture, sinus disease present. Mild left sphenoid sinus opacification, right maxillary sinus mucosal thickening, subtotal right is moist. total right sphenoid sinus opacification. The sphenoid sinus is totally fevers. We did abdominal CAT scan and the pelvic CT which shows shunt catheter to the right of the midline through the thorax and the anterior surface of the abdomen in the right lower quadrant. No abnormal associated fluid collection. There appears to replace a previously identified catheter. The second catheter is no longer seen. There is a new left pleural effusion with atelectases of left hemithorax. New catheter shunt in the right pleural space. Status post removal of left upper quadrant catheter. No suspicious collection or anti-inflammatory process identified in the thorax, abdomen, retroperitoneum, or pelvis. At this point, it is unclear now where the fever is coming from, but since she has had multiple PIT HAND surgeries that always remains behind. There is a opacified right sphenoid sinus which raises question of sinusitis, and her septic workup has not reviewed. Blood cultures are negative, and CSF fluid culture is negative at this time. Suggest to follow up with the neurosurgeon catheter in the abdomen do peritoneal tap to see if that is causing the problem. She is still febrile. We will follow. Naga Milton MD
[2017-11-13] MEDS: Vancomycin 1 gm/NS 200 ml 1 GM/200 ML BAG IVPB SCH ×2 (08:10→19:18)
[2017-11-13] MEDS: Saccharomyces Boulardi 250 mg Cap NG SCH ×2 (09:09→17:45)
[2017-11-13] MEDS: Pantoprazole 40 mg Susp UD GT SCH (09:09)
[2017-11-13] MEDS: Amantadine 50 mg/5 ml Syrup (473 ml) PO SCH (09:10)
--- NOTE | 2017-11-13 09:25 | CP.PCM.PN ---
Subjective - Date & Time of Evaluation Date of Evaluation: 11/13/17 Time of Evaluation: 09:35 - Subjective Subjective: PGY1 Resident note for Dr. Riley Bai. Pt seen and examined at bedside. Pt lying in bed, no acute distress. Pt denies chest pain & difficulty breathing. Pt remains afebrile X 2 days. Objective - Vital Signs/Intake and Output Vital Signs (last 24 hours): Temp Pulse Resp BP Pulse Ox 98.0 F 94 H 20 160/94 H 98 11/13/17 04:00 11/13/17 04:03 11/13/17 04:00 11/13/17 04:00 11/13/17 04:00 Intake and Output: 11/13/17 11/13/17 06:59 18:59 Intake Total 1010 Output Total 950 Balance 60 - Medications Medications: Current Medications Amantadine HCl (Symmetrel) 100 mg PO DAILY [facility] Last Admin: 11/13/17 09:10 Dose: 100 mg Ascorbic Acid (Vitamin C 500 Mg Tab) 500 mg GT DAILY [facility] Last Admin: 11/13/17 09:10 Dose: 500 mg Dextrose (Dextrose 50% Inj) 0 ml IV STAT PRN; Protocol PRN Reason: Hypoglycemia Protocol Dextrose (Glutose 15) 0 gm GT ONCE PRN; Protocol PRN Reason: Hypoglycemia Protocol Glucagon (Glucagen Diagnostic Kit) 0 mg IM STAT PRN; Protocol PRN Reason: Hypoglycemia Protocol Valproate Sodium 500 mg/ (Sodium Chloride) 105 mls @ 100 mls/hr IVPB Q12H [facility] Last Admin: 11/03/17 01:14 Dose: 100 mls/hr Meropenem 1 gm/ Sodium (Chloride) 100 mls @ 100 mls/hr IVPB Q8 [facility] PRN Reason: Protocol Last Admin: 11/13/17 05:13 Dose: 100 mls/hr Micafungin Sodium 100 mg/ (Sodium Chloride) 100 mls @ 100 mls/hr IV Q24H [facility] PRN Reason: Protocol Last Admin: 11/12/17 16:57 Dose: 100 mls/hr Vancomycin/Sodium Chloride (Vancomycin 1 Gm/Ns 200 Ml) 1 gm in 200 mls @ 133 mls/hr IVPB Q12H [facility] PRN Reason: Protocol Stop: 11/18/17 08:01 Last Admin: 11/13/17 08:10 Dose: 133 mls/hr Insulin Aspart (Novolog) 0 unit SC Q6H [facility] PRN Reason: Protocol Last Admin: 11/13/17 06:51 Dose: 4 units Insulin Glargine (Lantus) 30 unit SC HS [facility] Last Admin: 11/12/17 22:03 Dose: 30 unit Latanoprost (Xalatan Opht) 0 ml OU HS [facility] Last Admin: 11/12/17 21:57 Dose: 2.5 ml Losartan Potassium (Cozaar) 25 mg NG DAILY [facility] Last Admin: 11/13/17 09:09 Dose: 25 mg Pantoprazole Sodium (Protonix Susp) 40 mg GT DAILY [facility] Last Admin: 11/13/17 09:09 Dose: 40 mg Saccharomyces Boulardii (Florastor) 250 mg NG BID [facility] Last Admin: 11/13/17 09:09 Dose: 250 mg - Labs Labs: 11/13/17 07:00 11/13/17 07:00 PT 13.0 SECONDS (9.7-12.2) H 10/23/17 04:53 INR 1.2 10/23/17 04:53 APTT 24 SECONDS (21-34) 10/23/17 04:53 - Constitutional Appears: Well, Non-toxic, No Acute Distress - Head Exam Additional comments: Pt has 2 incision sites on superior aspect of head that are healing, dry, intact from shunt repairs, NG tube in R nares - Eye Exam Eye Exam: EOMI Pupil Exam: PERRL - ENT Exam ENT Exam: Mucous Membranes Moist - Respiratory Exam Respiratory Exam: Clear to Ausculation Bilateral, NORMAL BREATHING PATTERN. absent: Rales, Rhonchi, Wheezes - Cardiovascular Exam Cardiovascular Exam: +S1, +S2. absent: Murmur - GI/Abdominal Exam GI & Abdominal Exam: Soft, Normal Bowel Sounds - Extremities Exam Additional comments: R LE on lateral aspect of gluteus brandie portion of leg has broken skin, no erythema. No pain on palpation. 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 Pt has been afebrile X 48 hrs, possible D/C to [facility] 1.Persistent fever_ Improving. 11/13: - No fever for the last 48 hrs, last fever spikes on 11/10 afternoon - WBC 9.7 - s/p negative venous doppler,CT chest,abdomen and pelvis done. Source of infection not found .(No faley cath,no picc line,no cellulitis) - No fever last night and this mornig - CSF cultures neg X4 days, blood & urine cultures neg X 6 days, 11/11 stool CD negative - continue ID recs, Vancomycin 1gm Q12H, Meropenem 1gm Q8H, Micafungi 100mg Q24 , vancomycin 1gm Q12 - F/u r Ceretec scan from 11/13 results 2. Altered mental status -Improving/signifianct change last 3 days S/P SITE SAFETY MANAGER shunt revision and History of hydrocephalus - Initial SITE SAFETY MANAGER Shunt placed in 2014 - Past history of SITE SAFETY MANAGER Shunt repair 02/26/17 - Multiple SITE SAFETY MANAGER shunt revision during this hospitalization- 3rd this hospital stay (10/10/2017, 10/11/2017, 10/19/2017, 10/23/2017) - Very slow mental status improvement - Valproate 500mg IVP Q12H - HOLDING since 11/03 3. Dysphagia and change in mental status/lethargic - speech & eval evaluation - start on dysphagia diet w/ aspiration precautions - pt tolerated puree diet - Aspiration precaution - hold PEG tube 4. Abdominal Distention - Improving ,She has chronic ileus - s/p BM 11/13 ,no abdominal pain,has good bowel sound,seen by surgery 5. Hypertension - continue losartan 25mg 6. Diabetes mellitus - continue lantus 30 units HS 7.Right hip broken blister/sacral skin break Examined with RN yesterday - apply medihoney and cover with optifoam - Refer to straightener and aligner d/w daughter 8.Diarrhea/one watery stool - stool Cd toxin negative 7.Prophylactic measure - SCDs - Protonix 40mg IV daily Has poor venous access. Has Peripheral IV line
--- NOTE | 2017-11-13 10:47 | CP.PCM.PN ---
Subjective - Date & Time of Evaluation Date of Evaluation: 11/13/17 Time of Evaluation: 10:43 - Subjective Subjective: Patient is more alert. Patient denies having nausea, vomiting, abdominal pain. She was evaluated by speech therapy; they suggest pureed solids with nectar- thick liquids as well as aspiration precautions. Objective - Vital Signs/Intake and Output Vital Signs (last 24 hours): Temp Pulse Resp BP Pulse Ox 98.4 F 62 20 101/74 97 11/13/17 07:15 11/13/17 07:15 11/13/17 07:15 11/13/17 07:15 11/13/17 07:15 Intake and Output: 11/13/17 11/13/17 06:59 18:59 Intake Total 1010 Output Total 950 Balance 60 - Medications Medications: Current Medications Amantadine HCl (Symmetrel) 100 mg PO DAILY [facility] Last Admin: 11/13/17 09:10 Dose: 100 mg Ascorbic Acid (Vitamin C 500 Mg Tab) 500 mg GT DAILY [facility] Last Admin: 11/13/17 09:10 Dose: 500 mg Dextrose (Dextrose 50% Inj) 0 ml IV STAT PRN; Protocol PRN Reason: Hypoglycemia Protocol Dextrose (Glutose 15) 0 gm GT ONCE PRN; Protocol PRN Reason: Hypoglycemia Protocol Glucagon (Glucagen Diagnostic Kit) 0 mg IM STAT PRN; Protocol PRN Reason: Hypoglycemia Protocol Valproate Sodium 500 mg/ (Sodium Chloride) 105 mls @ 100 mls/hr IVPB Q12H [facility] Last Admin: 11/03/17 01:14 Dose: 100 mls/hr Meropenem 1 gm/ Sodium (Chloride) 100 mls @ 100 mls/hr IVPB Q8 [facility] PRN Reason: Protocol Last Admin: 11/13/17 05:13 Dose: 100 mls/hr Micafungin Sodium 100 mg/ (Sodium Chloride) 100 mls @ 100 mls/hr IV Q24H [facility] PRN Reason: Protocol Last Admin: 11/12/17 16:57 Dose: 100 mls/hr Vancomycin/Sodium Chloride (Vancomycin 1 Gm/Ns 200 Ml) 1 gm in 200 mls @ 133 mls/hr IVPB Q12H [facility] PRN Reason: Protocol Stop: 11/18/17 08:01 Last Admin: 11/13/17 08:10 Dose: 133 mls/hr Insulin Aspart (Novolog) 0 unit SC Q6H [facility] PRN Reason: Protocol Last Admin: 11/13/17 06:51 Dose: 4 units Insulin Glargine (Lantus) 30 unit SC HS [facility] Last Admin: 11/12/17 22:03 Dose: 30 unit Latanoprost (Xalatan Opht) 0 ml OU HS [facility] Last Admin: 11/12/17 21:57 Dose: 2.5 ml Losartan Potassium (Cozaar) 25 mg NG DAILY [facility] Last Admin: 11/13/17 09:09 Dose: 25 mg Pantoprazole Sodium (Protonix Susp) 40 mg GT DAILY [facility] Last Admin: 11/13/17 09:09 Dose: 40 mg Saccharomyces Boulardii (Florastor) 250 mg NG BID [facility] Last Admin: 11/13/17 09:09 Dose: 250 mg - Labs Labs: 11/13/17 07:00 11/13/17 07:00 PT 13.0 SECONDS (9.7-12.2) H 10/23/17 04:53 INR 1.2 10/23/17 04:53 APTT 24 SECONDS (21-34) 10/23/17 04:53 - Constitutional Appears: No Acute Distress - Eye Exam Eye Exam: EOMI, PERRL - Neck Exam Neck Exam: absent: Lymphadenopathy, Thyromegaly - Respiratory Exam Respiratory Exam: NORMAL BREATHING PATTERN. absent: Rales, Rhonchi, Wheezes - Cardiovascular Exam Cardiovascular Exam: REGULAR RHYTHM, +S1, +S2. absent: Gallop, Rubs, Murmur - GI/Abdominal Exam GI & Abdominal Exam: Distended, Soft, Normal Bowel Sounds. absent: Tenderness, Mass, Organomegaly - Rectal Exam Rectal Exam: Deferred - Extremities Exam Extremities Exam: absent: Calf Tenderness, Pedal Edema Assessment and Plan (1) Dysphagia Assessment & Plan: Patient is more alert this morning. A trial of oral feeding with pureed solids and nectar thick liquids is reasonable. Continue to observe aspiration precautions. Status: Acute
--- NOTE | 2017-11-13 14:10 | CP.PCM.PN ---
Subjective - Date & Time of Evaluation Date of Evaluation: 11/13/17 Time of Evaluation: 02:00 - Subjective Subjective: dictated Objective - Vital Signs/Intake and Output Vital Signs (last 24 hours): Temp Pulse Resp BP Pulse Ox 98.4 F 62 20 101/74 97 11/13/17 07:15 11/13/17 07:15 11/13/17 07:15 11/13/17 07:15 11/13/17 07:15 Intake and Output: 11/13/17 11/13/17 06:59 18:59 Intake Total 1010 Output Total 950 Balance 60 - Medications Medications: Current Medications Amantadine HCl (Symmetrel) 100 mg PO DAILY [facility] Last Admin: 11/13/17 09:10 Dose: 100 mg Ascorbic Acid (Vitamin C 500 Mg Tab) 500 mg GT DAILY [facility] Last Admin: 11/13/17 09:10 Dose: 500 mg Dextrose (Dextrose 50% Inj) 0 ml IV STAT PRN; Protocol PRN Reason: Hypoglycemia Protocol Dextrose (Glutose 15) 0 gm GT ONCE PRN; Protocol PRN Reason: Hypoglycemia Protocol Glucagon (Glucagen Diagnostic Kit) 0 mg IM STAT PRN; Protocol PRN Reason: Hypoglycemia Protocol Valproate Sodium 500 mg/ (Sodium Chloride) 105 mls @ 100 mls/hr IVPB Q12H [facility] Last Admin: 11/03/17 01:14 Dose: 100 mls/hr Meropenem 1 gm/ Sodium (Chloride) 100 mls @ 100 mls/hr IVPB Q8 [facility] PRN Reason: Protocol Last Admin: 11/13/17 14:05 Dose: 100 mls/hr Micafungin Sodium 100 mg/ (Sodium Chloride) 100 mls @ 100 mls/hr IV Q24H [facility] PRN Reason: Protocol Last Admin: 11/12/17 16:57 Dose: 100 mls/hr Vancomycin/Sodium Chloride (Vancomycin 1 Gm/Ns 200 Ml) 1 gm in 200 mls @ 133 mls/hr IVPB Q12H [facility] PRN Reason: Protocol Stop: 11/18/17 08:01 Last Admin: 11/13/17 08:10 Dose: 133 mls/hr Insulin Aspart (Novolog) 0 unit SC Q6H [facility] PRN Reason: Protocol Last Admin: 11/13/17 11:59 Dose: 3 units Insulin Glargine (Lantus) 30 unit SC HS [facility] Last Admin: 11/12/17 22:03 Dose: 30 unit Latanoprost (Xalatan Opht) 0 ml OU HS [facility] Last Admin: 11/12/17 21:57 Dose: 2.5 ml Losartan Potassium (Cozaar) 25 mg NG DAILY [facility] Last Admin: 11/13/17 09:09 Dose: 25 mg Pantoprazole Sodium (Protonix Susp) 40 mg GT DAILY [facility] Last Admin: 11/13/17 09:09 Dose: 40 mg Saccharomyces Boulardii (Florastor) 250 mg NG BID [facility] Last Admin: 11/13/17 09:09 Dose: 250 mg - Labs Labs: 11/13/17 07:00 11/13/17 07:00 PT 13.0 SECONDS (9.7-12.2) H 10/23/17 04:53 INR 1.2 10/23/17 04:53 APTT 24 SECONDS (21-34) 10/23/17 04:53
[2017-11-13] MEDS: Micafungin 100 MG in Sodium Chloride 0.9% 100 ML IV SCH (17:41)
--- NOTE | 2017-11-13 21:12 | CARD ---
APPROVED REPORT EXAM: Two-dimensional and M-mode echocardiogram with Doppler and color Doppler. INDICATION Infection:Rule out subacute bacterial endocarditis RISK FACTORS Hypertension Diabetes 2D DIMENSIONS IVSd1.0 (0.7-1.1cm)LVDd3.4 (3.9-5.9cm) PWd1.0 (0.7-1.1cm)LVDs2.5 (2.5-4.0cm) FS (%) 27.9 %LVEF (%)55.2 (>50%) M-Mode DIMENSIONS Left Atrium (MM)2.11 (2.5-4.0cm)IVSd1.03 (0.7-1.1cm) Aortic Root2.07 (2.2-3.7cm)LVDd4.67 (4.0-5.6cm) Aortic Cusp Exc.2.50 (1.5-2.0cm)PWd1.08 (0.7-1.1cm) FS (%) 41 %LVDs2.74 (2.0-3.8cm) LVEF (%)72 (>50%) Mitral Valve MV E Cogbxjwn89.1cm/sMV A Cjwjtxwe19.7cm/sE/A ratio0.6 TDI E/Lateral E'0.0E/Medial E'0.0 Tricuspid Valve TR Peak [id number]/sTR Peak Gr.[id number] LEFT VENTRICLE The left ventricle is normal size. There is normal left ventricular wall thickness. The left ventricular function is normal. The left ventricular ejection fraction is within the normal range. 74% No regional wall motion abnormalities noted. Transmitral Doppler flow pattern is Grade I-abnormal relaxation pattern. No left ventricle thrombus noted on this study. There is no ventricular septal defect visualized. There is no left ventricular aneurysm. There is no mass noted in the left ventricle. RIGHT VENTRICLE The right ventricle is normal size. There is normal right ventricular wall thickness. The right ventricular systolic function is normal. ATRIA The left atrium size is normal. The right atrium size is normal. The interatrial septum is intact with no evidence for an atrial septal defect. AORTIC VALVE The aortic valve is normal in structure and function. No aortic regurgitation is present. There is no aortic valvular stenosis. There is no aortic valvular vegetation. MITRAL VALVE The mitral valve is normal in structure and function. There is no evidence of mitral valve prolapse. There is no mitral valve stenosis. There is no mitral valve regurgitation noted. TRICUSPID VALVE The tricuspid valve is normal in structure and function. There is no tricuspid valve regurgitation noted. There is no tricuspid valve prolapse or vegetation. There is no tricuspid valve stenosis. PULMONIC VALVE The pulmonary valve is normal in structure and function. There is no pulmonic valvular regurgitation. There is no pulmonic valvular stenosis. GREAT VESSELS The aortic root is normal in size. The ascending aorta is normal in size. The pulmonary artery is normal. The IVC is normal in size and collapses >50% with inspiration. PERICARDIAL EFFUSION The pericardium appears normal. There is no pleural effusion. <Conclusion> The left ventricular function is normal. Transmitral Doppler flow pattern is Grade I-abnormal relaxation pattern. Normal Doppler.
[2017-11-13] MEDS: (Lantus) Insulin Glargine, Recombinant SC SCH (21:34)
[2017-11-13] MEDS: Latanoprost 2.5 ml Opht Soln OU SCH (21:35)
--- NOTE | 2017-11-13 23:58 | PN ---
DATE: 11/13/2017 SUBJECTIVE: The patient was more alert. She still continues to have an NG tube. She is being evaluated by the speech therapist to see if she could eat by mouth so that she would not need a PEG. She seems to be able to tell me her name. PHYSICAL EXAMINATION: VITAL SIGNS: T-max is 98.4, pulse 62, blood pressure is 101/74, respirations are 20. HEENT: Head is atraumatic. Lowden are present, but on the right parietal area. NG tube is present. NECK: Supple. LUNGS: Clear. No crackles or rales present. HEART: S1 and S2 regular. ABDOMEN: Prominent, bowel sounds are gurgling. EXTREMITIES: Venodyne boots. Unable to evaluate the legs as such due to extensive boots covering the legs. LABORATORY DATA: White count is 9.7, hemoglobin 11.1, hematocrit . Chemistry shows creatinine of 0.5. Blood sugars are 248. The cultures have been all negative so far except the urine which showed Proteus. ASSESSMENT AND PLAN: She is on triple antibiotics at this time, and I would continue for ten days these treatment and then probably can discontinue them. The CSF has been, however, negative, and empirically, we have been treating and she does have some sinusitis with sphenoid sinus opacification. So at this time, we will follow, and we have started meropenem on 01/08/2018, today is the sixth day, and we will give it for ten days. On tenth day, I think we should discontinue Mycamine, vancomycin and Merrem, but then I am sure we would know wether she is able to tolerate p.o. food or not. The patient has had multiple procedures for the BRANCH OPERATIONS MANAGER shunt changes due to mechanical problems and CSF has always been negative, and we will follow, and she is also due to have a [facility] scan which we have ordered. Naga Milton MD
[2017-11-14] MEDS: (Novolog) Insulin Aspart, Recombinant 100 u/ml 10 ml vial SC SCH ×4 (00:04→18:54)
[2017-11-14] MEDS: Meropenem 1 GM in Sodium Chloride 0.9% 100 ML IVPB SCH ×3 (05:20→21:52)
--- NOTE | 2017-11-14 06:13 | CP.PCM.PN ---
Subjective - Date & Time of Evaluation Date of Evaluation: 11/14/17 Time of Evaluation: 07:20 - Subjective Subjective: PGY1 Resident Note for Dr. Bia. Pt seen and examined at bedside. Pt lying in bed, no acute distress. Audience Development Manager services used, aircraft launch and recovery technician [id number]. Pt has a complaint of feeling of unable to void. Pt states when she does void, it is minimal to none. Pt denies urgency or burning sensation. Pt additionally states she is currently uncomfortable. Overnight nurse unable to tell amount voided due to urine not catching in urinary pouch. Pt denies chest pain, difficulty breathing, abdominal pain. Pt stated she was able to tolerate puree diet. Pt states last bowel movement was 2 + days prior. Pt remains afebrile. Objective - Vital Signs/Intake and Output Vital Signs (last 24 hours): Temp Pulse Resp BP Pulse Ox 97 F L 81 20 148/79 100 11/14/17 04:30 11/14/17 04:30 11/14/17 04:30 11/14/17 04:30 11/14/17 04:30 - Medications Medications: Current Medications Amantadine HCl (Symmetrel) 100 mg PO DAILY [facility] Last Admin: 11/13/17 09:10 Dose: 100 mg Ascorbic Acid (Vitamin C 500 Mg Tab) 500 mg GT DAILY [facility] Last Admin: 11/13/17 09:10 Dose: 500 mg Dextrose (Dextrose 50% Inj) 0 ml IV STAT PRN; Protocol PRN Reason: Hypoglycemia Protocol Dextrose (Glutose 15) 0 gm GT ONCE PRN; Protocol PRN Reason: Hypoglycemia Protocol Glucagon (Glucagen Diagnostic Kit) 0 mg IM STAT PRN; Protocol PRN Reason: Hypoglycemia Protocol Valproate Sodium 500 mg/ (Sodium Chloride) 105 mls @ 100 mls/hr IVPB Q12H [facility] Last Admin: 11/03/17 01:14 Dose: 100 mls/hr Meropenem 1 gm/ Sodium (Chloride) 100 mls @ 100 mls/hr IVPB Q8 [facility] PRN Reason: Protocol Last Admin: 11/14/17 05:20 Dose: 100 mls/hr Micafungin Sodium 100 mg/ (Sodium Chloride) 100 mls @ 100 mls/hr IV Q24H [facility] PRN Reason: Protocol Last Admin: 11/13/17 17:41 Dose: 100 mls/hr Vancomycin/Sodium Chloride (Vancomycin 1 Gm/Ns 200 Ml) 1 gm in 200 mls @ 133 mls/hr IVPB Q12H [facility] PRN Reason: Protocol Stop: 11/18/17 08:01 Last Admin: 11/13/17 19:18 Dose: 133 mls/hr Insulin Aspart (Novolog) 0 unit SC Q6H [facility] PRN Reason: Protocol Last Admin: 11/14/17 00:04 Dose: Not Given Insulin Glargine (Lantus) 30 unit SC HS [facility] Last Admin: 11/13/17 21:34 Dose: 30 unit Latanoprost (Xalatan Opht) 0 ml OU HS [facility] Last Admin: 11/13/17 21:35 Dose: 2.5 ml Losartan Potassium (Cozaar) 25 mg PO DAILY [facility] Pantoprazole Sodium (Protonix Susp) 40 mg GT DAILY [facility] Last Admin: 11/13/17 09:09 Dose: 40 mg Saccharomyces Boulardii (Florastor) 250 mg NG BID [facility] Last Admin: 11/13/17 17:45 Dose: 250 mg - Labs Labs: 11/13/17 07:00 11/13/17 07:00 PT 13.0 SECONDS (9.7-12.2) H 10/23/17 04:53 INR 1.2 10/23/17 04:53 APTT 24 SECONDS (21-34) 10/23/17 04:53 - Constitutional Appears: No Acute Distress - Head Exam Head Exam: NORMAL INSPECTION Additional comments: Pt has clayton on R side for head for previous surgery. Pt L side of head healing. - Eye Exam Eye Exam: EOMI, Normal appearance Pupil Exam: NORMAL ACCOMODATION. absent: Fixed, Irregular - ENT Exam ENT Exam: Mucous Membranes Moist - Respiratory Exam Respiratory Exam: Clear to Ausculation Bilateral, NORMAL BREATHING PATTERN. absent: Rales, Rhonchi, Wheezes - Cardiovascular Exam Cardiovascular Exam: +S1, +S2. absent: Irregular Rhythm - GI/Abdominal Exam GI & Abdominal Exam: Distended, Soft, Normal Bowel Sounds. absent: Guarding, Rigid - Extremities Exam Additional comments: Pt has SVDs on B/L LE. Pt additionally has skin breakage on R side of lateral part of gluteal brandie. - Neurological Exam Neurological Exam: Alert, Awake - Skin Skin Exam: Dry, Intact, Normal Color. 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 Pt has been afebrile X 72 hrs, D/C to [facility] in [place]: 1.Persistent fever_ Resolved. 11/14: - No fever for the last 72 hrs, last fever spikes on 11/10 afternoon - WBC 8.7 - WBC nuclear scan from 11/13 - no acute findings - No fever last night and this mornig - CSF cultures neg X5 days, blood & urine cultures neg X 7 days, 11/11 stool CD negative - continue ID recs, Vancomycin 1gm Q12H, Meropenem 1gm Q8H, Micafungi 100mg Q24 , vancomycin 1gm Q12, for additional 9 days (D/c 11/22) 11/13: - No fever for the last 48 hrs, last fever spikes on 11/10 afternoon - WBC 9.7 - s/p negative venous doppler,CT chest,abdomen and pelvis done. Source of infection not found .(No faley cath,no picc line,no cellulitis) - No fever last night and this mornig - CSF cultures neg X4 days, blood & urine cultures neg X 6 days, 11/11 stool CD negative - continue ID recs, Vancomycin 1gm Q12H, Meropenem 1gm Q8H, Micafungi 100mg Q24 , vancomycin 1gm Q12 - F/u r Ceretec scan from 11/13 results 2. Altered mental status -Improving/signifianct change last 3 days S/P SERVICES EXECUTIVE shunt revision and History of hydrocephalus - Initial SERVICES EXECUTIVE Shunt placed in 2014 - Past history of SERVICES EXECUTIVE Shunt repair 02/26/17 - Multiple SERVICES EXECUTIVE shunt revision during this hospitalization- 3rd this hospital stay (10/10/2017, 10/11/2017, 10/19/2017, 10/23/2017) - Very slow mental status improvement - Valproate 500mg IVP Q12H - HOLDING since 11/03 3. Dysphagia and change in mental status/lethargic - continue puree diet per speech & swallow eval, pt tolerating well - Aspiration precaution - hold PEG tube 4. Abdominal Distention/ urinary retention - bladder scan shows <50cc urine in bladder - improving, she has chronic ileus - citrate of Mag given 11/14, will f/u to see if BM occured. 5. Hypertension - continue losartan 25mg 6. Diabetes mellitus - continue lantus 30 units HS 7.Right hip broken blister/sacral skin break Examined with RN yesterday - apply medihoney and cover with optifoam - Refer to restaurant area manager d/w daughter 8.Diarrhea/one watery stool - stool Cd toxin negative 7.Prophylactic measure - SCDs - Protonix 40mg IV daily Has poor venous access. Has Peripheral IV line
[2017-11-14] MEDS: Vancomycin 1 gm/NS 200 ml 1 GM/200 ML BAG IVPB SCH ×2 (07:33→20:01)
[2017-11-14 08:27] LABS: BASO # 0.1 K/uL (0.0-0.2); BASO % 0.8 % (0.0-2.0); EOS # 0.2 K/uL (0.0-0.7); EOS % 1.9 % (0.0-4.0); HEMOGLOBIN 11.4 g/dL (11.0-16.0); LYMPH # 1.7 K/uL (1.0-4.3); LYMPH % 19.3 % (20.0-40.0); MEAN CELL VOLUME 87.8 fL (81.0-99.0); MEAN CORPUSCULAR HEMOGLOBIN 29.5 pg (27.0-31.0); MEAN CORPUSCULAR HGB CONC 33.6 g/dL (33.0-37.0); MONO # 0.5 K/uL (0.0-0.8); MONO % 5.2 % (0.0-10.0); NEUT # 6.3 K/uL (1.8-7.0); NEUT % 72.8 % (50.0-75.0); NRBC % 0.3 % (0.0-2.0); RBC 3.85 Mil/uL (3.80-5.20); RED CELL DISTRIBUTION WIDTH 15.2 % (11.5-14.5); WHITE BLOOD COUNT 8.7 K/uL (4.8-10.8)
[2017-11-14 09:00] LABS: ALB/GLOB RATIO 1.2 (1.0-2.1); ALBUMIN 3.1 g/dL (3.5-5.0); ALT/SGPT 54 U/L (9-52); AST/SGOT 37 U/L (14-36); BLOOD UREA NITROGEN 19 mg/dL (7-17); CALCIUM 8.4 mg/dl (8.6-10.4); GFR AFRICAN-AMERICAN > 60; GFR NON-AFRICAN AMERICAN > 60
[2017-11-14] MEDS: Saccharomyces Boulardi 250 mg Cap NG SCH ×2 (10:51→18:14)
[2017-11-14] MEDS: Amantadine 50 mg/5 ml Syrup (473 ml) PO SCH (10:52)
[2017-11-14] MEDS: Pantoprazole 40 mg Susp UD GT SCH (10:52)
--- NOTE | 2017-11-14 11:16 | NM ---
Date of service: 11/13/2017 PROCEDURE: Ceretec labeled white blood cell study HISTORY: fevers /etio COMPARISON: 11/09/2017 CT thorax abdomen and pelvis. TECHNIQUE: 22.1 mCi technetium 99 M Ceretec labeled white blood cells administered intravenously. Images obtained at 2 and 24 hours per institutional protocol. FINDINGS: Thorax: No suspicious findings. Abdomen and pelvis: Expected uptake in the liver spleen and genitourinary system. Mild haziness within the peritoneal cavity, a nonspecific finding. No focal, localized abnormalities. IMPRESSION: No acute findings related to/accounting for the clinical presentation. Additional benign and/or incidental findings described above.
[2017-11-14] MEDS ORDERED: Magnesium Citrate Oral SOL (300 ml) PO ONE (13:36)
[2017-11-14] MEDS: Micafungin 100 MG in Sodium Chloride 0.9% 100 ML IV SCH (16:14)
[2017-11-14] MEDS: Latanoprost 2.5 ml Opht Soln OU SCH (21:53)
[2017-11-14] MEDS: (Lantus) Insulin Glargine, Recombinant SC SCH (21:53)
--- NOTE | 2017-11-14 22:15 | CP.PCM.PN ---
Subjective - Date & Time of Evaluation Date of Evaluation: 11/14/17 Time of Evaluation: 02:00 - Subjective Subjective: dictated Objective - Vital Signs/Intake and Output Vital Signs (last 24 hours): Temp Pulse Resp BP Pulse Ox 98.2 F 88 20 133/89 96 11/14/17 15:00 11/14/17 15:00 11/14/17 15:00 11/14/17 15:00 11/14/17 15:00 Intake and Output: 11/14/17 11/15/17 18:59 06:59 Intake Total 120 Output Total 300 Balance -180 - Medications Medications: Current Medications Amantadine HCl (Symmetrel) 100 mg PO DAILY [facility] Last Admin: 11/14/17 10:52 Dose: 100 mg Ascorbic Acid (Vitamin C 500 Mg Tab) 500 mg GT DAILY [facility] Last Admin: 11/14/17 10:52 Dose: 500 mg Dextrose (Dextrose 50% Inj) 0 ml IV STAT PRN; Protocol PRN Reason: Hypoglycemia Protocol Dextrose (Glutose 15) 0 gm GT ONCE PRN; Protocol PRN Reason: Hypoglycemia Protocol Glucagon (Glucagen Diagnostic Kit) 0 mg IM STAT PRN; Protocol PRN Reason: Hypoglycemia Protocol Valproate Sodium 500 mg/ (Sodium Chloride) 105 mls @ 100 mls/hr IVPB Q12H [facility] Last Admin: 11/03/17 01:14 Dose: 100 mls/hr Meropenem 1 gm/ Sodium (Chloride) 100 mls @ 100 mls/hr IVPB Q8 [facility] PRN Reason: Protocol Last Admin: 11/14/17 21:52 Dose: 100 mls/hr Micafungin Sodium 100 mg/ (Sodium Chloride) 100 mls @ 100 mls/hr IV Q24H [facility] PRN Reason: Protocol Last Admin: 11/14/17 16:14 Dose: 100 mls/hr Vancomycin/Sodium Chloride (Vancomycin 1 Gm/Ns 200 Ml) 1 gm in 200 mls @ 133 mls/hr IVPB Q12H [facility] PRN Reason: Protocol Stop: 11/18/17 08:01 Last Admin: 11/14/17 20:01 Dose: 133 mls/hr Insulin Aspart (Novolog) 0 unit SC Q6H [facility] PRN Reason: Protocol Last Admin: 11/14/17 18:54 Dose: 2 units Insulin Glargine (Lantus) 30 unit SC HS [facility] Last Admin: 11/14/17 21:53 Dose: 30 unit Latanoprost (Xalatan Opht) 0 ml OU HS [facility] Last Admin: 11/14/17 21:53 Dose: 2.5 ml Losartan Potassium (Cozaar) 25 mg PO DAILY [facility] Last Admin: 11/14/17 10:51 Dose: 25 mg Pantoprazole Sodium (Protonix Susp) 40 mg GT DAILY [facility] Last Admin: 11/14/17 10:52 Dose: 40 mg Saccharomyces Boulardii (Florastor) 250 mg NG BID [facility] Last Admin: 11/14/17 18:14 Dose: 250 mg - Labs Labs: 11/14/17 08:04 11/14/17 08:04 PT 13.0 SECONDS (9.7-12.2) H 10/23/17 04:53 INR 1.2 10/23/17 04:53 APTT 24 SECONDS (21-34) 10/23/17 04:53
[2017-11-15] MEDS: (Novolog) Insulin Aspart, Recombinant 100 u/ml 10 ml vial SC SCH ×4 (00:29→18:15)
--- NOTE | 2017-11-15 02:51 | PN ---
DATE: 11/14/2017 SUBJECTIVE: The patient was very alert. Her NG tube has been removed. They have started feeding her according to the swallowing evaluation. She looked a lot better and was communicating. PHYSICAL EXAMINATION: VITAL SIGNS: T-max is 98.2, pulse 88, blood pressure 133/89, respirations are 20. HEENT: Head is atraumatic. NECK: Supple. LUNGS: Clear. HEART: S1, S2 are regular. ABDOMEN: Flabby, nontender with gaseous distention of the abdomen. SKIN: She has a right thigh blister which was healing and left a scar. EXTREMITIES: Remain with Venodyne boots. It is hard to evaluate even the toes and legs for any other issues. IMPRESSION: She has multiple central nervous system surgeries and has been slow to recover and was running fevers and also has sinusitis. PLAN: She is improving. She is on multiple antibiotics at this time. I think we will start to taper them little bit and see if she continues to remain well off antibiotics. I would re-evaluate her again tomorrow. If she is better and continues to be stable, we will probably try to take away vancomycin tomorrow and leave her on Merrem and Mycamine for now. We will follow. Naga Milton MD
--- NOTE | 2017-11-15 06:58 | CP.PCM.DIS ---
Provider - Provider Date of Admission: 10/03/17 12:11 Attending physician: Riley Bai MD Primary care physician: Dr. Ponce. Consults: Dr. Milton, Dr. Araujo, Dr. Mota, Dr. Ennis, Dr. Rios. Time Spent in preparation of Discharge (in minutes): 40 Diagnosis - Discharge Diagnosis (1) Diabetes mellitus Status: Acute Comment: Managed with lantus 30. (2) History of hydrocephalus Status: Acute Comment: Pt had multiple WIND TUNNEL TECHNICIAN shunt repairs that has made her now stable. (3) Mental status change Status: Acute Comment: Pt AMS/ fevers was treated w/ meropenum, vancomycin, & micofungin. (4) HTN (hypertension) Status: Acute Comment: Treated with Norvasc. (5) WIND TUNNEL TECHNICIAN (ventriculoperitoneal) shunt status Status: Acute Comment: Stable, pt alert & oriented. Hospital Course - Lab Results Lab Results: Micro Results 11/09/17 09:43 Cerebral Spinal Fluid Gram Stain - Final 11/09/17 09:43 Cerebral Spinal Fluid CSF Culture - Final No growth. 11/07/17 13:34 Blood Blood Culture - Final NO GROWTH AFTER 5 DAYS 11/07/17 13:34 Blood Gram Stain - Final TEST NOT PERFORMED 11/07/17 13:34 Blood Blood Culture - Final NO GROWTH AFTER 5 DAYS 11/07/17 13:34 Blood Gram Stain - Final TEST NOT PERFORMED 11/09/17 09:00 Cerebral Spinal Fluid Fungal Culture - Preliminary 11/07/17 13:41 Urine,Catheterized Urine Culture - Final Proteus Species 10/30/17 19:00 Nose MRSA Culture - Final MRSA NOT DETECTED 10/20/17 19:30 Blood-Thru Central Line Blood Culture - Final NO GROWTH AFTER 5 DAYS 10/20/17 19:30 Blood-Thru Central Line Gram Stain - Final TEST NOT PERFORMED 10/20/17 20:00 Blood-Thru Central Line Blood Culture - Final NO GROWTH AFTER 5 DAYS 10/19/17 12:16 Cerebral Spinal Fluid Gram Stain - Final 10/19/17 12:16 Cerebral Spinal Fluid CSF Culture - Final No growth. 10/20/17 15:36 Urine,Catheterized Urine Culture - Final No Growth (<1,000 CFU/ML) 10/20/17 06:31 Nose MRSA Culture (Admit) - Final MRSA NOT DETECTED 10/14/17 15:51 Naris MRSA Culture - Final MRSA NOT DETECTED 10/10/17 14:33 Cerebral Spinal Fluid Gram Stain - Final 10/10/17 14:33 Cerebral Spinal Fluid CSF Culture - Final No growth. 10/08/17 11:50 Blood-Venous Blood Culture - Final NO GROWTH AFTER 5 DAYS 10/08/17 11:50 Blood-Venous Gram Stain - Final TEST NOT PERFORMED 10/08/17 11:22 Blood-Venous Blood Culture - Final NO GROWTH AFTER 5 DAYS 10/08/17 11:22 Blood-Venous Gram Stain - Final TEST NOT PERFORMED 10/12/17 04:13 Urine,Catheterized Urine Culture - Final No Growth (<1,000 CFU/ML) 10/11/17 16:51 Urine Urine Culture - Final No Growth (<1,000 CFU/ML) 10/08/17 11:22 Urine Urine Culture - Final 10-50,000 CFU/ML. MULTIPLE SPECIES. PROBABLE CONTAMINATION. 10/03/17 10:17 Blood Blood Culture - Final NO GROWTH AFTER 5 DAYS 10/03/17 10:17 Blood Gram Stain - Final TEST NOT PERFORMED 10/03/17 10:17 Blood Blood Culture - Final NO GROWTH AFTER 5 DAYS 10/03/17 15:57 Urine Urine Culture - Final No Growth (<1,000 CFU/ML) Most Recent Lab Values WBC 8.7 K/uL (4.8-10.8) 11/14/17 08:04 RBC 3.85 Mil/uL (3.80-5.20) 11/14/17 08:04 Hgb 11.4 g/dL (11.0-16.0) 11/14/17 08:04 Hct 33.8 % (34.0-47.0) L 11/14/17 08:04 MCV 87.8 fL (81.0-99.0) 11/14/17 08:04 MCH 29.5 pg (27.0-31.0) 11/14/17 08:04 MCHC 33.6 g/dL (33.0-37.0) 11/14/17 08:04 RDW 15.2 % (11.5-14.5) H 11/14/17 08:04 Plt Count 215 K/uL (130-400) 11/14/17 08:04 MPV 9.0 fL (7.2-11.7) 11/14/17 08:04 Neut % (Auto) 72.8 % (50.0-75.0) 11/14/17 08:04 Lymph % (Auto) 19.3 % (20.0-40.0) L 11/14/17 08:04 [place] % (Auto) 5.2 % (0.0-10.0) 11/14/17 08:04 Eos % (Auto) 1.9 % (0.0-4.0) 11/14/17 08:04 Baso % (Auto) 0.8 % (0.0-2.0) 11/14/17 08:04 Neut # (Auto) 6.3 K/uL (1.8-7.0) 11/14/17 08:04 Lymph # (Auto) 1.7 K/uL (1.0-4.3) 11/14/17 08:04 [place] # (Auto) 0.5 K/uL (0.0-0.8) 11/14/17 08:04 Eos # (Auto) 0.2 K/uL (0.0-0.7) 11/14/17 08:04 Baso # (Auto) 0.1 K/uL (0.0-0.2) 11/14/17 08:04 ESR 72 mm/hr (0-20) H 11/01/17 10:59 PT 13.0 SECONDS (9.7-12.2) H 10/23/17 04:53 INR 1.2 10/23/17 04:53 APTT 24 SECONDS (21-34) 10/23/17 04:53 D-Dimer, Quantitative 5057 ng/mlDDU (0-243) H 11/07/17 13:58 Puncture Site Rba 10/20/17 20:05 pCO2 39 mm/Hg (35-45) 10/20/17 20:05 pO2 91 mm/Hg (80-100) 10/20/17 20:05 HCO3 29.0 mmol/L (21-28) H 10/20/17 20:05 ABG pH 7.48 (7.35-7.45) H 10/20/17 20:05 ABG Total CO2 30.2 mmol/L (22-28) H 10/20/17 20:05 ABG O2 Saturation 98.7 % (95-98) H 10/20/17 20:05 ABG Base Excess 5.2 mmol/L (-2.0-3.0) H 10/20/17 20:05 ABG Hemoglobin 12.7 g/dL (11.7-17.4) 10/20/17 20:05 ABG Carboxyhemoglobin 1.5 % (0.5-1.5) 10/20/17 20:05 POC ABG HHb (Measured) 1.3 % (0.0-5.0) 10/20/17 20:05 ABG Methemoglobin 0.8 % (0.0-3.0) 10/20/17 20:05 Alan Test Na 10/20/17 20:05 VBG pH 7.45 (7.32-7.43) H 10/08/17 11:13 VBG pCO2 38 mmHg (40-60) L 10/08/17 11:13 VBG HCO3 26.7 mmol/L 10/08/17 11:13 VBG Total CO2 27.6 mmol/L (22-28) 10/08/17 11:13 VBG O2 Sat (Calc) 94.6 % (40-65) H 10/08/17 11:13 VBG Base Excess 2.4 mmol/L (0.0-2.0) H 10/08/17 11:13 VBG Potassium 3.4 mmol/L (3.6-5.2) L 10/08/17 11:13 A-a O2 Difference 74.0 mm/Hg 10/20/17 20:05 Respiratory Index 0.8 10/20/17 20:05 Hgb O2 Saturation 96.4 % (95.0-98.0) 10/20/17 20:05 Sodium 132.0 mmol/l (132-148) 10/08/17 11:13 Chloride 98.0 mmol/L (98-107) 10/08/17 11:13 Glucose 339 mg/dl (65-105) H 10/08/17 11:13 Lactate 2.0 mmol/L (0.7-2.1) 10/08/17 11:13 Liter Flow 3.0 10/20/17 20:05 Vent Mode Prvc 10/13/17 05:10 Mechanical Rate 12 10/13/17 05:10 FiO2 30.0 % 10/20/17 20:05 Tidal Volume 500 10/13/17 05:10 PEEP 5 10/13/17 05:10 Sodium 141 mmol/L (132-148) 11/14/17 08:04 Potassium 3.5 mmol/L (3.6-5.2) L 11/14/17 08:04 Chloride 103 mmol/L (98-107) 11/14/17 08:04 Carbon Dioxide 30 mmol/L (22-30) 11/14/17 08:04 Anion Gap 12 (10-20) 11/14/17 08:04 BUN 19 mg/dL (7-17) H 11/14/17 08:04 Creatinine 0.4 mg/dL (0.7-1.2) L 11/14/17 08:04 Est GFR ( Amer) > 60 11/14/17 08:04 Est GFR (Non-Af Amer) > 60 11/14/17 08:04 POC Glucose (mg/dL) 123 mg/dL (65-110) H 11/15/17 06:43 Random Glucose 189 mg/dL (65-105) H 11/14/17 08:04 Serum Osmolality 303 mosm/kg (272-300) H 10/29/17 06:35 Calcium 8.4 mg/dl (8.6-10.4) L 11/14/17 08:04 Phosphorus 2.6 mg/dL (2.5-4.5) 11/14/17 08:04 Magnesium 2.1 mg/dL (1.6-2.3) 11/14/17 08:04 Total Bilirubin 0.8 mg/dL (0.2-1.3) 11/14/17 08:04 AST 37 U/L (14-36) H 11/14/17 08:04 ALT 54 U/L (9-52) H 11/14/17 08:04 Alkaline Phosphatase 77 U/L (38-126) 11/14/17 08:04 Ammonia < 9 umol/L (9-33) L 10/20/17 20:24 Total Creatine Kinase 136 U/L (30-135) H 10/03/17 10:30 Troponin I < 0.0120 ng/mL (0.00-0.120) 10/03/17 10:30 Total Protein 5.7 g/dL (6.3-8.3) L 11/14/17 08:04 Albumin 3.1 g/dL (3.5-5.0) L 11/14/17 08:04 Globulin 2.6 gm/dL (2.2-3.9) 11/14/17 08:04 Albumin/Globulin Ratio 1.2 (1.0-2.1) 11/14/17 08:04 Procalcitonin 0.14 NG/ML (0.19-0.49) L 11/12/17 08:01 Venous Blood Potassium 3.4 mmol/L (3.6-5.2) L 10/08/17 11:13 Urine Color Yellow (YELLOW) 11/07/17 13:41 Urine Clarity Hazy (Clear) 11/07/17 13:41 Urine pH 6.0 (5.0-8.0) 11/07/17 13:41 Ur Specific [place] 1.033 (1.003-1.030) H 11/07/17 13:41 Urine Protein Negative mg/dL (NEGATIVE) 11/07/17 13:41 Urine Glucose (UA) 3+ mg/dL (Normal) H 11/07/17 13:41 Urine Ketones Negative mg/dL (NEGATIVE) 11/07/17 13:41 Urine Blood Negative (NEGATIVE) 11/07/17 13:41 Urine Nitrate Negative (NEGATIVE) 11/07/17 13:41 Urine Bilirubin Negative (NEGATIVE) 11/07/17 13:41 Urine Urobilinogen Normal mg/dL (0.2-1.0) 11/07/17 13:41 Ur Leukocyte Esterase Neg Alonso/uL (Negative) 11/07/17 13:41 Urine WBC (Auto) < 1 /hpf (0-5) 11/07/17 13:41 Urine RBC (Auto) < 1 /hpf (0-3) 11/07/17 13:41 Ur Squamous Epith Cells 3 /hpf (0-5) 11/07/17 13:41 Urine Bacteria Rare (<OCC) 10/12/17 04:13 Hyaline Casts 0-2 /lpf (0-2) 10/12/17 04:13 Fluid Type Spinal fluid 11/09/17 09:43 CSF Volume 2 mL (0-1) H 11/09/17 09:43 CSF Appearance Clear/colorless (CLEAR) 11/09/17 09:43 CSF WBC 1.0 /mm3 (0.0-5.0) 11/09/17 09:43 CSF RBC 39.0 /mm3 (0.0-0.0) H 11/09/17 09:43 CSF Total Cell Counted TEST NOT PERFORMED 11/09/17 09:43 CSF Neutrophils % (0-0) 10/10/17 14:33 CSF Lymphocytes % (0-0) 10/10/17 14:33 CSF Monos/Macrophages TEST NOT PERFORMED 11/09/17 09:43 CSF Comment 11/09/17 09:43 CSF Glucose 151 mg/dL (40-70) H* 11/09/17 09:43 CSF Total Protein 54.0 mg/dL (12-60) 11/09/17 09:43 Vancomycin Trough 10.3 ug/mL (5.0-10.0) H 11/14/17 08:04 Random Vancomycin 19.6 ug/mL 10/21/17 11:15 Valproic Acid 83.1 ug/mL (50.0-100.0) 11/02/17 08:19 C. difficile Ag & Toxin Negative (NEGATIVE) 11/11/17 06:00 - Hospital Course Hospital Course: HPI: 66 year old female with a past medical history of hydrocephalus w/WIND TUNNEL TECHNICIAN shunt , brought to ER by ambulance for evaluation of confusion. Per the son the patient was found on the floor after falling. The patient does not remember the fall. As per son, patient was confused and has not been at her baseline mental status for about 3 weeks but worse in the last day. She was last seen by neurosurgery last to adjust the shunt and previously was there 2 weeks ago as well. He states she has been "off" since the previous shunt adjustment. Son states that the patient has experienced these symptoms in the past and it was related to her WIND TUNNEL TECHNICIAN Shunt which she was admitted and had it revised in February 2017. Patient denies having any complaints at this time. Patient is more alert and oriented to person and place but not to time. Patient has no complaints of pain, chest pain, shortness of breath. Per the family the patient is eating well and having normal bowel movements. She has unsteady gait and can be incontinent of urine at time. Head CT and shuntogram performed today in the ED were normal and showed the shunt is intact, Although the ventricles have increased in size since the last admission in February 2017. Of note the patient does not follow up with a neurologist. 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 She had revisions 10/10, 10/11, 10/19 & 10/23. Most recent WIND TUNNEL TECHNICIAN shunt is from Left parietal to right pleural space shunt. During stay, pt had to be on NG tube feedings to prevent possible aspiration due to altered mental status. Pt additionally had issues last week with spiking fevers. Pt was initiated on broad spectrum antibiotics with multiple no source of infection found. Pt had X4 blood cultures & urine cultures negative, & CSF cultures negative. Pt has been stable over the past 3-4 days where she remained afebrile. Pt had constipation & was provided medications to help have bowel movements, with successful movements. Additionally pt recently was placed on a puree diet which she has tolerated well and is able to swallow and keep patent airway. Pt has received physical therapy during her hospital course. Pt chronic conditions of HTN and DM were manage as well during stay. During stay, pt haad consults with Dr. Milton to control fevers/ infection, Dr. Mota, neurology , Dr. Hancock. This is a brief summary of pts stay at the hospital. For full details please refer to pt full chart. Patient stable for discharge per Dr. Bai to half-way acute care facility, [facility]. Patient should not resume all home medications (Please ONLY continue Atorvastatin Calcium 40mg QD PO, Dexlansoprazole 60mg QD PO, Docusate Sodium 100 mg QD PO). Please see below list for complete list of medications patient should take. Patient should make an appointment and follow up with PMD within 1 to 2 weeks for follow up care. Patient should also follow up with Dr. Milton, infectious disease after discharge, 1 to 2 weeks later. Additionally, patient should follow up with Dr. Rios & Dr. Mota (Neurosurgery & neurology) within 1 to 2 weeks. Patient daughter (child care group leader) informed of these instructions. Pt is to return to the closest emergency facility immediately if any symptoms return and or get worse. Medicine reconciliation: Amantadine 100 mg PO QD Ascorbic Acid 500 mg Tab QD Insulin Lantus 30 units SC HS Latanoprost 0.005% opth, 1 drop OU HS Losartan 25 mg PO QD Saccharomyces Boulardi 250 mg PO BID Meropenem 1Gm IVPB Q8 (Last dose to be given 11/17/17, total 10 days treatment) Micafungin 100 mg IV Q24 (Last dose to be given 11/17/17, total 10 days treatment ) Valproate 500 mg PO BID Amlodipine 2.5mg PO QD Atorvastatin Calcium 40mg PO QD Dexlansoprazole 60 mg Cap PO QD Docusate Sodium 100 mg PO QD Discharge Exam - Head Exam Head Exam: NORMAL INSPECTION Additional comments: Pt has incision baig on super aspect of skull 2/2 of multiple WIND TUNNEL TECHNICIAN shunt repairs / revisions. Pt has clayton on R side. - Eye Exam Eye Exam: Normal appearance Pupil Exam: PERRL. absent: Fixed, Irregular - ENT Exam ENT Exam: Mucous Membranes Moist. absent: Mucous Membranes Dry - Respiratory Exam Respiratory Exam: NORMAL BREATHING PATTERN, UNREMARKABLE. absent: Chest Wall Tenderness, Rales, Rhonchi, Wheezes - GI/Abdominal Exam GI & Abdominal Exam: Distended, Normal Bowel Sounds, Soft. absent: Diminished Bowel Sounds, Firm, Rebound, Rigid - Extremities Exam Extremities exam: normal inspection Additional comments: Pt had skin breakage on lateral parts of lower extremities on gluteal brandie regions. Wounds were non erythema w/ no discharge. - Psychiatric Exam Psychiatric exam: Normal Mood - Skin Skin Exam: Dry, Intact, Normal Color, Warm Discharge Plan - Discharge Medications Prescriptions: amLODIPine [Norvasc] 2.5 mg PO DAILY #30 tab Divalproex [Depakote ER] 500 mg PO BID #60 ter - Follow Up Plan Condition: GOOD Disposition: [facility] Instructions: Hydrocephalus (DC), Ventriculoperitoneal Shunt, Adult (DC), Altered Mental Status (GEN) Additional Instructions: Patient stable for discharge per Dr. Bai to half-way acute care facility, [facility]. Patient should not resume all home medications (Please ONLY continue Atorvastatin Calcium 40mg QD PO, Dexlansoprazole 60mg QD PO, Docusate Sodium 100 mg QD PO). Please see below list for complete list of medications patient should take. Patient should make an appointment and follow up with PMD within 1 to 2 weeks for follow up care. Patient should also follow up with Dr. Milton, infectious disease after discharge, 1 to 2 weeks later. Additionally, patient should follow up with Dr. Rios & Dr. Mota (Neurosurgery & neurology) within 1 to 2 weeks. Patient daughter (child care group leader) informed of these instructions. Pt is to return to the closest emergency facility immediately if any symptoms return and or get worse. Medicine reconciliation: Amantadine 100 mg PO QD Ascorbic Acid 500 mg Tab QD Insulin Lantus 30 units SC HS Latanoprost 0.005% opth, 1 drop OU HS Losartan 25 mg PO QD Saccharomyces Boulardi 250 mg PO BID Meropenem 1Gm IVPB Q8 (Last dose to be given 11/17/17, total 10 days treatment) Micafungin 100 mg IV Q24 (Last dose to be given 11/17/17, total 10 days treatment ) Valproate 500 mg PO BID Amlodipine 2.5mg PO QD Atorvastatin Calcium 40mg PO QD Dexlansoprazole 60 mg Cap PO QD Docusate Sodium 100 mg PO QD Referrals: Raymond Nixon MD [Staff Provider] - Juan Mota MD [Staff Provider] - Fer Hancock MD [Staff Provider] - Naga Milton MD [Staff Provider] -
[2017-11-15] MEDS: Meropenem 1 GM in Sodium Chloride 0.9% 100 ML IVPB SCH ×2 (07:00→13:49)
[2017-11-15 08:55] LABS: BASO # 0.1 K/uL (0.0-0.2); BASO % 0.7 % (0.0-2.0); EOS # 0.1 K/uL (0.0-0.7); EOS % 1.5 % (0.0-4.0); HEMOGLOBIN 11.5 g/dL (11.0-16.0); LYMPH # 1.4 K/uL (1.0-4.3); LYMPH % 16.4 % (20.0-40.0); MEAN CELL VOLUME 86.7 fL (81.0-99.0); MEAN CORPUSCULAR HEMOGLOBIN 29.8 pg (27.0-31.0); MEAN CORPUSCULAR HGB CONC 34.4 g/dL (33.0-37.0); MEAN PLATELET VOLUME 8.5 fL (7.2-11.7); MONO # 0.5 K/uL (0.0-0.8); MONO % 5.5 % (0.0-10.0); NEUT # 6.3 K/uL (1.8-7.0); NEUT % 75.9 % (50.0-75.0); RBC 3.84 Mil/uL (3.80-5.20); RED CELL DISTRIBUTION WIDTH 14.9 % (11.5-14.5); WHITE BLOOD COUNT 8.3 K/uL (4.8-10.8)
[2017-11-15] MEDS: Vancomycin 1 gm/NS 200 ml 1 GM/200 ML BAG IVPB SCH (08:55)
[2017-11-15 09:28] LABS: ALB/GLOB RATIO 1.1 (1.0-2.1); ALBUMIN 3.1 g/dL (3.5-5.0); ALT/SGPT 65 U/L (9-52); AST/SGOT 40 U/L (14-36); BLOOD UREA NITROGEN 15 mg/dL (7-17); CALCIUM 8.4 mg/dl (8.6-10.4); GFR AFRICAN-AMERICAN > 60; GFR NON-AFRICAN AMERICAN > 60
[2017-11-15] MEDS ORDERED: Potassium Phosphate 30 MMOLE in Sodium Chloride 0.9% 250 ML IVPB ONE (10:00)
[2017-11-15] MEDS: Saccharomyces Boulardi 250 mg Cap NG SCH ×2 (10:09→18:17)
[2017-11-15] MEDS: Amantadine 50 mg/5 ml Syrup (473 ml) PO SCH (10:09)
[2017-11-15] MEDS: Pantoprazole 40 mg Susp UD GT SCH (10:09)
[2017-11-15] MEDS ORDERED: Bisacodyl 5mg EC Tab PO ONE (14:27)
[2017-11-15] MEDS: Micafungin 100 MG in Sodium Chloride 0.9% 100 ML IV SCH (16:09)
[2017-11-15 16:25] VITALS: BP 120/84; PULSE 88; TEMP 97.6; O2SAT 94
== END 2017-11-15 19:27 | DRG 31 ==
LOC: C.ER 09:54 → C.9E 12:11 → C.3T 16:23 → C.5S 10-04 19:43 → C.9I 10-11 11:41 → C.6T 10-14 14:43 → C.9I 10-20 05:26 → C.5S 10-30 18:45 → C.6T 11-02 13:49
PROVIDERS: ADMIT Internal Medicine; ATTEND Internal Medicine
PROC: 0WWG0JZ Revision of Synthetic Substitute in Peritoneal Cavity, Open Approach (ICD-10-PCS; principal; 2017-10-10 12:00)
PROC: 00P60JZ Removal of Synthetic Substitute from Cerebral Ventricle, Open Approach (ICD-10-PCS; 2017-10-19)
PROC: 00160J6 Bypass Cerebral Ventricle to Peritoneal Cavity with Synthetic Substitute, Open Approach (ICD-10-PCS; 2017-10-19)
PROC: 00P60JZ Removal of Synthetic Substitute from Cerebral Ventricle, Open Approach (ICD-10-PCS; 2017-10-24)
PROC: 00160J4 Bypass Cerebral Ventricle to Pleural Cavity with Synthetic Substitute, Open Approach (ICD-10-PCS; 2017-10-24)
DX: T85.01XA Breakdown (mechanical) of ventricular intracranial (communicating) shunt, initial encounter (principal); G93.6 Cerebral edema; G91.1 Obstructive hydrocephalus; G91.2 (Idiopathic) normal pressure hydrocephalus; N17.9 Acute kidney failure, unspecified; N39.0 Urinary tract infection, site not specified; J90 Pleural effusion, not elsewhere classified; K56.7 Ileus, unspecified; E78.5 Hyperlipidemia, unspecified; E87.5 Hyperkalemia; E87.6 Hypokalemia; F03.90 Unspecified dementia, unspecified severity, without behavioral disturbance, psychotic disturbance, mood disturbance, and anxiety; G40.909 Epilepsy, unspecified, not intractable, without status epilepticus; I10 Essential (primary) hypertension; R13.10 Dysphagia, unspecified; E11.65 Type 2 diabetes mellitus with hyperglycemia; E04.1 Nontoxic single thyroid nodule; D72.819 Decreased white blood cell count, unspecified; T85.09XA Other mechanical complication of ventricular intracranial (communicating) shunt, initial encounter; Z74.01 Bed confinement status; Z79.4 Long term (current) use of insulin; J45.909 Unspecified asthma, uncomplicated

== ENCOUNTER 2018-07-01 01:11 | Inpatient (IN) | payer MEDICARE, MEDICAID ==
[2018-07-01 01:12] VITALS: BMI 38.7
--- NOTE | 2018-07-01 01:54 | CP.PCM.HP ---
<DineshNima samayoa - Last Filed: 07/01/18 05:13> History of Present Illness - History of Present Illness History of Present Illness: PGY-1 History and Physical [address] Dr. Clarke Patient is a 67 year old female with past medical history of hydrocephalus with CREDIT COLLECTIONS CLERK shunt, HTN, HLD, DM, asthma transferred from [place], [place] for AMS with suspected CREDIT COLLECTIONS CLERK shunt abnormality. Patient is awake, somewhat alert, minimally responsive to some verbal cues given by family at bedside. Family provides history given pt's status. As per family, patient's mental status has been steadily declining over the course of 1 week. At baseline, patient speaks fluidly, is able to eat soft foods. Patient is currently bedbound but was able to bear minimal weight (2-3 steps) on rolling walker up until April. Of note, patient was last seen at [facility] in October 2017, had multiple CREDIT COLLECTIONS CLERK shunt corrections. Patient was followed by Dr. Hancock, who is aware of patient's transfer to [facility] [place] on current admission. 12 pt ROS unattainable due to patient's mental status. PMHx: HTN, Diabetes, hypercholesterolemia, and asthma PSHx: CREDIT COLLECTIONS CLERK shunt, originally placed by neurosurgeon Dr. Shepherd at [facility] with multiple shunt revisions at [facility] (10/2017) Allergies: NKDA Home Meds: as per chart Family Hx: denies Social Hx: no alcohol, tobacco, or illicit drug use PMD: Dr. Keith Ponce Neurosurgeon: Dr. Zimmerman Proxy: Maribeth Yanez (daughter) [phone] Present on Admission - Present on Admission Any Indicators Present on Admission: Yes History of Uncontrolled Diabetes: Yes Review of Systems - Review of Systems Systems not reviewed;Unavailable: Altered Mental Status All systems: reviewed and no additional remarkable complaints except Past Patient History - Infectious Disease Hx of Infectious Diseases: None - Past Medical History & Family History Past Medical History?: Yes - Past Social History Smoking Status: Never Smoked - CARDIAC Hx Hypercholesterolemia: Yes Hx Hypertension: Yes - PULMONARY Hx Asthma: Yes - NEUROLOGICAL Hx Neurological Disorder: Yes Hx Vertigo: Yes Other/Comment: Hydrocephalus with Shunt - ENDOCRINE/METABOLIC Hx Diabetes Mellitus Type 2: Yes - MUSCULOSKELETAL/RHEUMATOLOGICAL Hx Musculoskeletal Disorders: Yes Hx Falls: Yes - PSYCHIATRIC Hx Substance Use: No - SURGICAL HISTORY Hx Surgeries: Yes Other/Comment: Shunt for Hydrocephalus - ANESTHESIA Hx Anesthesia: Yes Hx Anesthesia Reactions: No Meds Allergies/Adverse Reactions: Allergies Allergy/AdvReac Type Severity Reaction Status Date / Time No Known Allergies Allergy Verified 12/08/15 16:19 Physical Exam - Constitutional Appears: Non-toxic - Head Exam Head Exam: ATRAUMATIC Additional comments: L sided parietoccipital CREDIT COLLECTIONS CLERK shunt palpated R side of head healed from previous CREDIT COLLECTIONS CLERK shunt. - Eye Exam Eye Exam: EOMI, Normal appearance Pupil Exam: NORMAL ACCOMODATION - ENT Exam ENT Exam: Mucous Membranes Moist, Normal Exam - Neck Exam Neck exam: Positive for: Normal Inspection - Respiratory Exam Respiratory Exam: Clear to Auscultation Bilateral, NORMAL BREATHING PATTERN. absent: Accessory Muscle Use, Rales, Rhonchi, Wheezes, Respiratory Distress, Stridor - Cardiovascular Exam Cardiovascular Exam: REGULAR RHYTHM, +S1, +S2 - GI/Abdominal Exam GI & Abdominal Exam: Distended, Normal Bowel Sounds, Soft. absent: Firm, Guarding, Rebound, Rigid - Extremities Exam Extremities exam: Positive for: normal capillary refill, normal inspection, pedal edema, pedal pulses present. Negative for: calf tenderness Additional comments: dependent edema b/l extremities - Neurological Exam Neurological exam: Alert - Skin Skin Exam: Dry, Intact, Normal Color, Warm Results - Labs Result Diagrams: 07/01/18 02:15 07/01/18 02:15 Assessment & Plan - Assessment and Plan (Free Text) Assessment: 67 year old female with past medical history of hydrocephalus with CREDIT COLLECTIONS CLERK shunt, HTN, HLD, DM, asthma transferred from [place], [place] for AMS with suspected CREDIT COLLECTIONS CLERK shunt abnormality. Plan: Hydrocephalus -CT head (image reports faxed, in chart) demonstrate interval worsening of hydrocephalus -multiple CREDIT COLLECTIONS CLERK shunt repairs last admission (10/2017) -Neurosurgery (Dr. Hancock) on case -f/u CXR -patient restarted on all home meds, as per faxed chart, including primidone 50 mg PO HS and Depakene 250 PO BID Altered Mental Status -likely secondary to NPH -pt is afebrile, no leukocytosis -neuro checks, seizure precautions -f/u CXR --patient restarted on all home meds, as per faxed chart, including primidone 50 mg PO HS and Depakene 250 PO BID Dependent edema -lasix 20 mg IVP x1, aldactone 25 mg POx1 given hypokalemia -lasix 20 mg IVP daily -f/u venous dopplers Hypokalemia -KCl oral soln 40mEq -replete prn DM -home meds held -Levemir 8 units q12 -ISS low -accuchecks achs -hypoglycemic protocol HLD -Continue statin Asthma -controlled, not actively wheezing -will restart all home meds as per chart prn HTN -resume home meds -Norvasc 5mg PO daily -Losartan 25 mg PO daily PPx, Diet, Disposition -DVT ppx: scds held pending dopplers, heparin 5000 units sc -GI ppx: protonix, lactobacillus -Diet: NPO until further discussion with neurosurgery Case discussed with Dr. Vince Bustos DO, PGY-1 <Yakov Clarke P - Last Filed: 07/02/18 08:23> Results - Vital Signs Recent Vital Signs: Last Vital Signs Temp 98.5 F 07/02/18 08:00 Pulse 102 H 07/02/18 08:00 Resp 20 07/02/18 08:00 BP 129/63 07/02/18 08:00 Pulse Ox 97 07/02/18 08:00 - Labs Result Diagrams: 07/02/18 07:11 07/02/18 07:11 Labs: Laboratory Results - last 24 hr 07/01/18 07/01/18 07/01/18 07:23 07:23 12:32 WBC 6.6 RBC 4.33 Hgb 13.9 Hct 41.4 MCV 95.7 MCH 32.0 H MCHC 33.4 RDW 13.8 Plt Count 198 MPV 7.6 Neut % (Auto) 48.8 L Lymph % (Auto) 35.1 [place] % (Auto) 14.0 H Eos % (Auto) 1.4 Baso % (Auto) 0.7 Neut # (Auto) 3.2 Lymph # (Auto) 2.3 [place] # (Auto) 0.9 H Eos # (Auto) 0.1 Baso # (Auto) 0.0 Sodium 135 Potassium 2.9 L Chloride 93 L Carbon Dioxide 35 H Anion Gap 9 L BUN 23 H Creatinine 0.6 L Est GFR ( Amer) > 60 Est GFR (Non-Af Amer) > 60 POC Glucose (mg/dL) 182 H Random Glucose 184 H Calcium 8.6 Phosphorus 4.4 Magnesium 1.9 Total Bilirubin 0.6 AST 24 ALT 10 Alkaline Phosphatase 62 Total Protein 6.1 L Albumin 3.1 L Globulin 3.1 Albumin/Globulin Ratio 1.0 07/01/18 07/01/18 07/02/18 16:49 21:36 02:35 WBC RBC Hgb Hct MCV MCH MCHC RDW Plt Count MPV Neut % (Auto) Lymph % (Auto) [place] % (Auto) Eos % (Auto) Baso % (Auto) Neut # (Auto) Lymph # (Auto) [place] # (Auto) Eos # (Auto) Baso # (Auto) Sodium Potassium Chloride Carbon Dioxide Anion Gap BUN Creatinine Est GFR ( Amer) Est GFR (Non-Af Amer) POC Glucose (mg/dL) 182 H 196 H 183 H Random Glucose Calcium Phosphorus Magnesium Total Bilirubin AST ALT Alkaline Phosphatase Total Protein Albumin Globulin Albumin/Globulin Ratio 07/02/18 07/02/18 07/02/18 06:30 07:11 07:11 WBC 5.1 RBC 4.08 Hgb 13.3 Hct 38.8 MCV 95.1 MCH 32.5 H MCHC 34.1 RDW 13.8 Plt Count 195 MPV 7.4 Neut % (Auto) 37.5 L Lymph % (Auto) 47.1 H [place] % (Auto) 13.0 H Eos % (Auto) 1.5 Baso % (Auto) 0.9 Neut # (Auto) 1.9 Lymph # (Auto) 2.4 [place] # (Auto) 0.7 Eos # (Auto) 0.1 Baso # (Auto) 0.0 Sodium 135 Potassium 3.0 L Chloride 95 L Carbon Dioxide 36 H Anion Gap 7 L BUN 31 H Creatinine 0.7 Est GFR ( Amer) > 60 Est GFR (Non-Af Amer) > 60 POC Glucose (mg/dL) 141 H Random Glucose 142 H D Calcium 8.6 Phosphorus 4.2 Magnesium 1.8 Total Bilirubin 0.7 AST 36 D ALT 14 Alkaline Phosphatase 62 Total Protein 6.0 L Albumin 3.0 L Globulin 3.0 Albumin/Globulin Ratio 1.0 Attending/Attestation - Attestation I have personally seen and examined this patient.: Yes I have fully participated in the care of the patient.: Yes I have reviewed all pertinent clinical information: Yes Notes (Text): 07/02/18 08:20 Patient assessed with resident, agree with documentation, assessment and plan.
--- NOTE | 2018-07-01 02:07 | C.PDOC ---
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 As per family at bedside, patient without normal communication, eating, alertness. Confused. Patient has had complications of TELEGRAPH REPEATER MECHANIC shunt multiple times in past. Most recent TELEGRAPH REPEATER MECHANIC shunt by Dr. Hancock. They deny any recent fever, cough, diarrhea, trauma, rash. Time Seen by Provider: 07/01/18 01:51 Chief Complaint (Nursing): Altered Mental Status Past Medical History - Medical History PMH: Asthma, Diabetes, HTN, Hypercholesterolemia, Hyperlipidemia - [facility] Procedures BYPASS CEREB VENT TO PERITON CAV W SYNTH SUB, OPEN (10/03/17) BYPASS CEREB VENT TO PLEURAL CAV W SYNTH SUB, OPEN (10/03/17) REMOVAL OF SYNTH SUB FROM CEREB VENT, OPEN APPROACH (10/03/17) REVISION OF SYNTH SUB IN CEREB VENT, PERC APPROACH (02/25/17) REVISION OF SYNTH SUB IN PERITON CAV, OPEN APPROACH (10/03/17) Family History: States: Unknown Family Hx - Social History Hx Alcohol Use: Yes Hx Substance Use: No - Immunization History Hx Influenza Vaccination: Yes Hx Pneumococcal Vaccination: No Review Of Systems Review Of Systems: ROS cannot be obtained secondary to pt's inabilty to answer questions. Physical Exam - Physical Exam Additional Physical Exam Comments: Gen: NAD Head: Atraumatic Eyes: PERRL ENT: MMM Neck: Supple Chest: No deformity CV: Reg rate Resp: No accessory muscle use Abd: Soft, NT Extremities: No tenderness Skin: No ecchymosis Neuro: Awake, responds to simple verbal stimuli Medical Decision Making Medical Decision Making: Dr. Hancock aware of patient's transfer. Disposition Discussed With : Yakov Clarke - Disposition Disposition: HOSPITALIZED Disposition Time: 02:09 Condition: FAIR - Clinical Impression Clinical Impression: Altered mental status, Hydrocephalus
[2018-07-01 02:19] LABS: BASO # 0.1 K/uL (0.0-0.2); BASO % 1.2 % (0.0-2.0); EOS # 0.1 K/uL (0.0-0.7); EOS % 1.2 % (0.0-4.0); LYMPH # 2.3 K/uL (1.0-4.3); LYMPH % 31.5 % (20.0-40.0); MEAN CORPUSCULAR HEMOGLOBIN 31.6 pg (27.0-31.0); MEAN CORPUSCULAR HGB CONC 33.4 g/dL (33.0-37.0); MEAN PLATELET VOLUME 7.6 fL (7.2-11.7); MONO % 13.8 % (0.0-10.0); NEUT # 3.9 K/uL (1.8-7.0); NEUT % 52.3 % (50.0-75.0); NRBC % 0.1 % (0.0-2.0); RBC 4.64 Mil/uL (3.80-5.20); RED CELL DISTRIBUTION WIDTH 13.7 % (11.5-14.5); WHITE BLOOD COUNT 7.4 K/uL (4.8-10.8)
[2018-07-01 02:22] LABS: HEMOGLOBIN 14.7 g/dL (11.0-16.0); MEAN CELL VOLUME 94.5 fL (81.0-99.0)
[2018-07-01 02:27] LABS: INR 1.2; PROTHROMBIN TIME 12.6 SECONDS (9.7-12.2)
[2018-07-01 02:31] LABS: ALBUMIN 3.4 g/dL (3.5-5.0); ALT/SGPT 9 U/L (9-52); AST/SGOT 25 U/L (14-36); BLOOD UREA NITROGEN 23 mg/dL (7-17); CALCIUM 8.6 mg/dl (8.6-10.4); GFR NON-AFRICAN AMERICAN > 60
[2018-07-01] MEDS ORDERED: Dextrose 50% SYRINGE Inj (50 ml) IV PRN (03:30)
[2018-07-01] MEDS ORDERED: Glucagon Recombinant 1 mg Inj IM PRN (03:30)
[2018-07-01] MEDS ORDERED: Potassium Chloride 20 mEq/15 ml LIQ UD PO ONE ×2 (03:38→08:00)
[2018-07-01] MEDS ORDERED: Magnesium Sulfate 1 gm in D5W 1 GM/100 ML BAG IVPB SCH (03:45)
[2018-07-01] MEDS: Insulin Detemir 100 units/ml Vial (Levemir) SC SCH ×2 (04:04→15:39)
[2018-07-01] MEDS ORDERED: Albuterol HFA 90 mcg/actuation (8 g) INH PRN (04:28)
[2018-07-01] MEDS ORDERED: Fluticasone-Vilanterol 100/25mcg Diskus INH PRN (04:32)
[2018-07-01] MEDS ORDERED: Albuterol 0.042% Inhal Sol (1.25 mg/3 mL) UD INH PRN (04:34)
--- NOTE | 2018-07-01 08:06 | CP.PCM.PN ---
<Josue Tapia - Last Filed: 07/01/18 14:52> Subjective - Date & Time of Evaluation Date of Evaluation: 07/01/18 Time of Evaluation: 08:06 - Subjective Subjective: Progress Note for Hospitalist service Patient seen and examined at bedside. As per family at bedside, patient typically talks and is able to eat soft foods. Patient has not been as responsive to them over the past week. Patient is currently bed bound but was able to walk with rolling walker until April. Patient has required multiple INTENSIVE CARE NURSE shunt revision in the past. Family at bedside states that they do not want NG tube at this time. ROS not obtainable given patient's mental status. Objective - Vital Signs/Intake and Output Vital Signs (last 24 hours): Temp Pulse Resp BP Pulse Ox 97.9 F 91 H 20 131/84 100 07/01/18 04:55 07/01/18 04:55 07/01/18 04:55 07/01/18 06:17 07/01/18 04:55 - Medications Medications: Current Medications Albuterol (Ventolin Hfa 90 Mcg/Actuation (8 G)) 2 puff INH RQ6 PRN PRN Reason: Shortness of Breath Albuterol Sulfate (Albuterol 0.042% Inhal Ely (1.25mg/3ml) Ud) 1.25 mg INH RQ6 PRN PRN Reason: Shortness of Breath Amantadine HCl (Symmetrel) 100 mg PO DAILY [facility] Amlodipine Besylate (Norvasc) 5 mg PO DAILY [facility] Ascorbic Acid (Vitamin C 500 Mg Tab) 500 mg PO DAILY MO[facility] Dextrose (Dextrose 50% Inj) 0 ml IV STAT PRN; Protocol PRN Reason: Hypoglycemia Protocol Dextrose (Glutose 15) 0 gm PO ONCE PRN; Protocol PRN Reason: Hypoglycemia Protocol Fluticasone/Vilanterol (Breo Ellipta 100-25 Mcg Inh) 1 puff INH RQD PRN PRN Reason: shortness of breath Furosemide (Lasix) 20 mg IVP DAILY MOLLY Glucagon (Glucagen Diagnostic Kit) 0 mg IM STAT PRN; Protocol PRN Reason: Hypoglycemia Protocol Heparin Sodium (Porcine) (Heparin) 5,000 units SC Q8 MOLLY Dextrose (Dextrose 5% In Water 1000 Ml) 1,000 mls @ 0 mls/hr IV .Q0M PRN; Protocol PRN Reason: Hypoglycemia Protocol Insulin Detemir (Levemir) 8 unit SC Q12H [facility] Last Admin: 07/01/18 04:04 Dose: 8 u Insulin Human Regular (Novolin R) 0 unit SC ACHS MOLLY; Protocol Lactobacillus Acidophilus (Lactobacillus) 1 cap PO BID MOLLY Lactulose (Enulose) 20 gm PO HS PRN PRN Reason: constip Latanoprost (Xalatan Opht) 0 ml OU HS [facility] Losartan Potassium (Cozaar) 25 mg PO DAILY [facility] Pantoprazole Sodium (Protonix Inj) 40 mg IVP DAILY [facility] Primidone (Mysoline) 50 mg PO HS MOLLY Valproate Sodium (Depakene Oral Soln) 250 mg PO BID MOLLY - Labs Labs: 07/01/18 02:15 07/01/18 02:15 PT 12.6 SECONDS (9.7-12.2) H 07/01/18 02:15 INR 1.2 07/01/18 02:15 APTT 27 SECONDS (21-34) 07/01/18 02:15 - Constitutional Appears: Non-toxic - Head Exam Additional comments: Left sided parietoocciptal INTENSIVE CARE NURSE shunt - Eye Exam Eye Exam: EOMI Additional comments: Eyes open - ENT Exam ENT Exam: Mucous Membranes Moist - Respiratory Exam Respiratory Exam: Clear to Ausculation Bilateral, NORMAL BREATHING PATTERN - Cardiovascular Exam Cardiovascular Exam: REGULAR RHYTHM, +S1, +S2 - GI/Abdominal Exam GI & Abdominal Exam: Distended, Soft, Normal Bowel Sounds - Extremities Exam Extremities Exam: Pedal Edema - Neurological Exam Neurological Exam: Awake - Skin Skin Exam: Dry, Intact, Warm Assessment and Plan - Assessment and Plan (Free Text) Assessment: 67 year old female with past medical history of hydrocephalus with INTENSIVE CARE NURSE shunt, HTN, HLD, DM, asthma transferred from [place], [place] for AMS with suspected INTENSIVE CARE NURSE shunt abnormality. Plan: Hydrocephalus -CT head (image reports faxed, in chart) demonstrate interval worsening of hydrocephalus -multiple INTENSIVE CARE NURSE shunt repairs last admission (10/2017) -Neurosurgery (Dr. Hancock) on case Pressure setting reduced on VPS valve from 2.5 to 1.5. Will recheck CT on Monday07/03/18 -CXR moderate left pleural effusion -patient restarted on all home meds, as per faxed chart, including primidone 50 mg PO HS and Depakene 250 PO BID Depakote switched to 250mg BID IV. 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 - Family stated that they did not want NG tube at this time. - UA pending Dependent edema -lasix 20 mg IVP x1, aldactone 25 mg POx1 given hypokalemia -lasix 20 mg IVP daily -f/u venous dopplers Hypokalemia -KCl 40mEq IV stat given for K 2.9 -replete prn DM -home meds held -Levemir 8 units q12 -ISS low -accuchecks achs -hypoglycemic protocol HLD -Continue statin Asthma -controlled, not actively wheezing -will restart all home meds as per chart prn -Albuterol Q6 PRN HTN -resume home meds -Norvasc 5mg PO daily -Losartan 25 mg PO daily PPx, Diet, Disposition -DVT ppx: scds held pending dopplers, heparin 5000 units sc -GI ppx: protonix, lactobacillus -Diet: NPO until further discussion with neurosurgery Case discussed with Dr. Brittnee Tapia, PGY1 <David Beaulieu H - Last Filed: 07/01/18 15:44> Objective - Vital Signs/Intake and Output Vital Signs (last 24 hours): Temp Pulse Resp BP Pulse Ox 97.9 F 95 H 20 128/78 97 07/01/18 08:35 07/01/18 08:47 07/01/18 08:35 07/01/18 10:13 07/01/18 08:35 - Medications Medications: Current Medications Albuterol (Ventolin Hfa 90 Mcg/Actuation (8 G)) 2 puff INH RQ6 PRN PRN Reason: Shortness of Breath Albuterol Sulfate (Albuterol 0.042% Inhal Ely (1.25mg/3ml) Ud) 1.25 mg INH RQ6 PRN PRN Reason: Shortness of Breath Amantadine HCl (Symmetrel) 100 mg PO DAILY [facility] Last Admin: 07/01/18 10:18 Dose: Not Given Amlodipine Besylate (Norvasc) 5 mg PO DAILY [facility] Last Admin: 07/01/18 10:18 Dose: Not Given Ascorbic Acid (Vitamin C 500 Mg Tab) 500 mg PO DAILY [facility] Last Admin: 07/01/18 10:18 Dose: Not Given Dextrose (Dextrose 50% Inj) 0 ml IV STAT PRN; Protocol PRN Reason: Hypoglycemia Protocol Dextrose (Glutose 15) 0 gm PO ONCE PRN; Protocol PRN Reason: Hypoglycemia Protocol Fluticasone/Vilanterol (Breo Ellipta 100-25 Mcg Inh) 1 puff INH RQD PRN PRN Reason: shortness of breath Furosemide (Lasix) 20 mg IVP DAILY [facility] Last Admin: 07/01/18 10:13 Dose: 20 mg Glucagon (Glucagen Diagnostic Kit) 0 mg IM STAT PRN; Protocol PRN Reason: Hypoglycemia Protocol Heparin Sodium (Porcine) (Heparin) 5,000 units SC Q8 [facility] Last Admin: 07/01/18 13:50 Dose: 5,000 units Dextrose (Dextrose 5% In Water 1000 Ml) 1,000 mls @ 0 mls/hr IV .Q0M PRN; Protocol PRN Reason: Hypoglycemia Protocol Valproate Sodium 250 mg/ (Sodium Chloride) 102.5 mls @ 100 mls/hr IV BID [facility] Last Admin: 07/01/18 13:49 Dose: 100 mls/hr Insulin Detemir (Levemir) 8 unit SC Q12H [facility] Last Admin: 07/01/18 15:39 Dose: 8 u Insulin Human Regular (Novolin R) 0 unit SC ACHS [facility]; Protocol Last Admin: 07/01/18 12:31 Dose: Not Given Lactobacillus Acidophilus (Lactobacillus) 1 cap PO BID [facility] Last Admin: 07/01/18 10:18 Dose: Not Given Lactulose (Enulose) 20 gm PO HS PRN PRN Reason: constip Latanoprost (Xalatan Opht) 0 ml OU HS [facility] Losartan Potassium (Cozaar) 25 mg PO DAILY [facility] Last Admin: 07/01/18 10:17 Dose: Not Given Pantoprazole Sodium (Protonix Inj) 40 mg IVP DAILY [facility] Last Admin: 07/01/18 10:12 Dose: 40 mg Primidone (Mysoline) 50 mg PO HS [facility] - Labs Labs: 07/01/18 07:23 07/01/18 07:23 PT 12.6 SECONDS (9.7-12.2) H 07/01/18 02:15 INR 1.2 07/01/18 02:15 APTT 27 SECONDS (21-34) 07/01/18 02:15 Attending/Attestation - Attestation I have personally seen and examined this patient.: Yes I have fully participated in the care of the patient.: Yes I have reviewed all pertinent clinical information, including history, physical exam and plan: Yes Notes (Text): 07/01/18 15:42 Medical attending: Patient was seen and examined by me, reviewed the above note by the resident and agree with the above The patient was very somulent. Awake, however did not appear to be following commands in [place]. The patient's family was present at bedside - they did not want an NGT at this time. However I explained to them that should patient's condition worsened that she may require one be placed. There are CDs on the chart from the other hospital from which the patient is from David Beaulieu
[2018-07-01] MEDS: (Novolin R) Insulin Human Regular 100 units/ml vial SC SCH ×4 (08:16→22:06)
[2018-07-01 08:30] LABS: BASO % 0.7 % (0.0-2.0); EOS # 0.1 K/uL (0.0-0.7); EOS % 1.4 % (0.0-4.0); HEMOGLOBIN 13.9 g/dL (11.0-16.0); LYMPH # 2.3 K/uL (1.0-4.3); LYMPH % 35.1 % (20.0-40.0); MEAN CELL VOLUME 95.7 fL (81.0-99.0); MEAN CORPUSCULAR HGB CONC 33.4 g/dL (33.0-37.0); MEAN PLATELET VOLUME 7.6 fL (7.2-11.7); MONO # 0.9 K/uL (0.0-0.8); NEUT # 3.2 K/uL (1.8-7.0); NEUT % 48.8 % (50.0-75.0); NRBC % 0.3 % (0.0-2.0); RBC 4.33 Mil/uL (3.80-5.20); RED CELL DISTRIBUTION WIDTH 13.8 % (11.5-14.5); WHITE BLOOD COUNT 6.6 K/uL (4.8-10.8)
[2018-07-01 08:40] LABS: ALBUMIN 3.1 g/dL (3.5-5.0); ALT/SGPT 10 U/L (9-52); AST/SGOT 24 U/L (14-36); BLOOD UREA NITROGEN 23 mg/dL (7-17); CALCIUM 8.6 mg/dl (8.6-10.4); GFR NON-AFRICAN AMERICAN > 60
[2018-07-01] MEDS ORDERED: Valproic Acid 250 mg/5 ml UD Cup PO SCH (10:00)
[2018-07-01] MEDS: Lactobacillus Acidophilus 500 MU Cap PO SCH ×2 (10:18→17:59)
[2018-07-01] MEDS: Amantadine 50 mg/5 ml Syrup (473 ml) PO SCH (10:18)
--- NOTE | 2018-07-01 10:49 | CP.PCM.CON ---
History of Present Illness - History of Present Illness History of Present Illness: Dictated Ct only mild ventriculomegaly pressure setting on VPS valve reduced to 1.5 from 2.5 hopefully will notice difference over next 2 d will re check CT Tues Past Patient History - Infectious Disease Hx of Infectious Diseases: None - Past Medical History & Family History Past Medical History?: Yes - Past Social History Smoking Status: Never Smoked - CARDIAC Hx Hypercholesterolemia: Yes Hx Hypertension: Yes - PULMONARY Hx Asthma: Yes - NEUROLOGICAL Hx Neurological Disorder: Yes Hx Vertigo: Yes Other/Comment: Hydrocephalus with Shunt - HEENT Other/Comment: " eye problems" - ENDOCRINE/METABOLIC Hx Diabetes Mellitus Type 2: Yes - MUSCULOSKELETAL/RHEUMATOLOGICAL Hx Musculoskeletal Disorders: Yes Hx Falls: Yes - PSYCHIATRIC Hx Substance Use: No - SURGICAL HISTORY Hx Surgeries: Yes Other/Comment: Shunt for Hydrocephalus - ANESTHESIA Hx Anesthesia: Yes Hx Anesthesia Reactions: No Meds Allergies/Adverse Reactions: Allergies Allergy/AdvReac Type Severity Reaction Status Date / Time No Known Allergies Allergy Verified 12/08/15 16:19 - Medications Medications: Current Medications Albuterol (Ventolin Hfa 90 Mcg/Actuation (8 G)) 2 puff INH RQ6 PRN PRN Reason: Shortness of Breath Albuterol Sulfate (Albuterol 0.042% Inhal Ely (1.25mg/3ml) Ud) 1.25 mg INH RQ6 PRN PRN Reason: Shortness of Breath Amantadine HCl (Symmetrel) 100 mg PO DAILY [facility] Last Admin: 07/01/18 10:18 Dose: Not Given Amlodipine Besylate (Norvasc) 5 mg PO DAILY [facility] Last Admin: 07/01/18 10:18 Dose: Not Given Ascorbic Acid (Vitamin C 500 Mg Tab) 500 mg PO DAILY [facility] Last Admin: 07/01/18 10:18 Dose: Not Given Dextrose (Dextrose 50% Inj) 0 ml IV STAT PRN; Protocol PRN Reason: Hypoglycemia Protocol Dextrose (Glutose 15) 0 gm PO ONCE PRN; Protocol PRN Reason: Hypoglycemia Protocol Fluticasone/Vilanterol (Breo Ellipta 100-25 Mcg Inh) 1 puff INH RQD PRN PRN Reason: shortness of breath Furosemide (Lasix) 20 mg IVP DAILY [facility] Last Admin: 07/01/18 10:13 Dose: 20 mg Glucagon (Glucagen Diagnostic Kit) 0 mg IM STAT PRN; Protocol PRN Reason: Hypoglycemia Protocol Heparin Sodium (Porcine) (Heparin) 5,000 units SC Q8 MOLLY Dextrose (Dextrose 5% In Water 1000 Ml) 1,000 mls @ 0 mls/hr IV .Q0M PRN; Prot ocol PRN Reason: Hypoglycemia Protocol Potassium Chloride (Potassium Chloride 20 Meq/100 Ml) 20 meq in 100 mls @ 50 mls/hr IVPB Q2 [facility]LLY Stop: 07/01/18 13:59 Last Admin: 07/01/18 10:12 Dose: 50 mls/hr Valproate Sodium 250 mg/ (Sodium Chloride) 102.5 mls @ 100 mls/hr IV BID ONE Stop: 07/01/18 11:10 Insulin Detemir (Levemir) 8 unit SC Q12H [facility] Last Admin: 07/01/18 04:04 Dose: 8 u Insulin Human Regular (Novolin R) 0 unit SC ACHS [facility]; Protocol Last Admin: 07/01/18 08:16 Dose: Not Given Lactobacillus Acidophilus (Lactobacillus) 1 cap PO BID [facility] Last Admin: 07/01/18 10:18 Dose: Not Given Lactulose (Enulose) 20 gm PO HS PRN PRN Reason: constip Latanoprost (Xalatan Opht) 0 ml OU HS [facility] Losartan Potassium (Cozaar) 25 mg PO DAILY [facility] Last Admin: 07/01/18 10:17 Dose: Not Given Pantoprazole Sodium (Protonix Inj) 40 mg IVP DAILY [facility] Last Admin: 07/01/18 10:12 Dose: 40 mg Primidone (Mysoline) 50 mg PO HS [facility] Results - Vital Signs Recent Vital Signs: Last Vital Signs Temp 97.9 F 07/01/18 08:35 Pulse 95 H 07/01/18 08:47 Resp 20 07/01/18 08:35 BP 128/78 07/01/18 10:13 Pulse Ox 97 07/01/18 08:35 - Labs Result Diagrams: 07/01/18 07:23 07/01/18 07:23 Labs: Laboratory Results - last 24 hr 07/01/18 07/01/18 07/01/18 02:15 02:15 02:15 WBC 7.4 RBC 4.64 Hgb 14.7 D Hct 43.9 MCV 94.5 D MCH 31.6 H MCHC 33.4 RDW 13.7 Plt Count 201 MPV 7.6 Neut % (Auto) 52.3 Lymph % (Auto) 31.5 Crisp % (Auto) 13.8 H Eos % (Auto) 1.2 Baso % (Auto) 1.2 Neut # (Auto) 3.9 Lymph # (Auto) 2.3 Crisp # (Auto) 1.0 H Eos # (Auto) 0.1 Baso # (Auto) 0.1 PT 12.6 H INR 1.2 APTT 27 Sodium 133 Potassium 3.0 L Chloride 92 L Carbon Dioxide 34 H Anion Gap 11 BUN 23 H Creatinine 0.6 L Est GFR ( Amer) > 60 Est GFR (Non-Af Amer) > 60 POC Glucose (mg/dL) Random Glucose 217 H D Calcium 8.6 Phosphorus Magnesium Total Bilirubin 0.8 AST 25 ALT 9 D Alkaline Phosphatase 65 Total Protein 6.8 Albumin 3.4 L Globulin 3.3 Albumin/Globulin Ratio 1.0 Blood Type Antibody Screen 07/01/18 07/01/18 07/01/18 02:15 03:46 05:34 WBC RBC Hgb Hct MCV MCH MCHC RDW Plt Count MPV Neut % (Auto) Lymph % (Auto) Crisp % (Auto) Eos % (Auto) Baso % (Auto) Neut # (Auto) Lymph # (Auto) Crisp # (Auto) Eos # (Auto) Baso # (Auto) PT INR APTT Sodium Potassium Chloride Carbon Dioxide Anion Gap BUN Creatinine Est GFR ( Amer) Est GFR (Non-Af Amer) POC Glucose (mg/dL) 225 H Random Glucose Calcium Phosphorus Magnesium 1.7 Total Bilirubin AST ALT Alkaline Phosphatase Total Protein Albumin Globulin Albumin/Globulin Ratio Blood Type A POSITIVE Antibody Screen Negative 07/01/18 07/01/18 07:23 07:23 WBC 6.6 RBC 4.33 Hgb 13.9 Hct 41.4 MCV 95.7 MCH 32.0 H MCHC 33.4 RDW 13.8 Plt Count 198 MPV 7.6 Neut % (Auto) 48.8 L Lymph % (Auto) 35.1 Crisp % (Auto) 14.0 H Eos % (Auto) 1.4 Baso % (Auto) 0.7 Neut # (Auto) 3.2 Lymph # (Auto) 2.3 Crisp # (Auto) 0.9 H Eos # (Auto) 0.1 Baso # (Auto) 0.0 PT INR APTT Sodium 135 Potassium 2.9 L Chloride 93 L Carbon Dioxide 35 H Anion Gap 9 L BUN 23 H Creatinine 0.6 L Est GFR ( Amer) > 60 Est GFR (Non-Af Amer) > 60 POC Glucose (mg/dL) Random Glucose 184 H Calcium 8.6 Phosphorus 4.4 Magnesium 1.9 Total Bilirubin 0.6 AST 24 ALT 10 Alkaline Phosphatase 62 Total Protein 6.1 L Albumin 3.1 L Globulin 3.1 Albumin/Globulin Ratio 1.0 Blood Type Antibody Screen
--- NOTE | 2018-07-01 11:10 | RAD ---
Date of service: 07/01/2018 HISTORY: SPECIAL EDUCATOR shunt dysfunction COMPARISON: 11/07/2017 FINDINGS: LUNGS: Moderate left pleural effusion. No pneumothorax. No right pleural effusion. Left SPECIAL EDUCATOR shunt noted. No pulmonary infiltrate. PLEURA: As above CARDIOVASCULAR: No aortic atherosclerotic calcification present. Normal cardiac size. No pulmonary vascular congestion. OSSEOUS STRUCTURES: No significant abnormalities. VISUALIZED UPPER ABDOMEN: Normal. OTHER FINDINGS: None. IMPRESSION: Moderate left pleural effusion.
[2018-07-01] MEDS: Valproate 250 MG in Sodium Chloride 0.9% 100 ML IV SCH ×2 (13:49→18:00)
[2018-07-01] MEDS: Latanoprost 2.5 ml Opht Soln OU SCH (22:07)
[2018-07-02] MEDS: Insulin Detemir 100 units/ml Vial (Levemir) SC SCH ×2 (03:14→14:34)
--- NOTE | 2018-07-02 07:05 | CON ---
DATE: 07/01/2018 HISTORY OF PRESENT ILLNESS: Mrs. Diaz is a lady very well known to me, 67-year-old lady that had a CASEWORKER shunt placed long time ago that I picked up in consult for shunt failure, I believe about a year ago. Unfortunately she underwent several revisions, ultimately ending up with a left ventricular pleural shunt, I believe, approximately 6 or 8 months ago. She has done relatively well postoperatively, but still in an assisted facility with limited ability to walk. However, her family has noticed decline in mental status over the past week with much less conversation, inability to see herself, etc. She was evaluated first at a local hospital where a CT scan showed "mild increase in ventriculomegaly." She was transferred to [facility] for further evaluation. Her past medical history, allergies, medications, social history, etc, were reviewed and documented in the EMR. PHYSICAL EXAMINATION: When prompted, she will tell me her name. She is not oriented to time or place. She does follow the great majority of commands. She is moving all four extremities. Her shunt pumps and refills well. CT of the brain done yesterday to my recollection does drive with radiologist reading and a mild increase in the size of the ventricular system. The left ventricular catheter is in perfect position. Of significant note is that she has an MRI of the brain performed, ordered by neurologist for absolutely unclear reason. On 06/22/2018, the ventricular size is best as one can compare to CT or MRI, does not look markedly different. I performed telemetry on her programmable shunt valve. The reading came back, 2.5. To the best of my recollection, this is higher than we have set it. I doubt that down to a level of 1.5. My best guess upon further reflection is that the MRI via the magnetic coil altered her valve i.e., increased it to 2.5. It took several days to manifest itself in clinical symptoms and the decline, certainly drive chronologically. My hope is that after a day or two at the lower setting, hopefully, her mental status will improve. I will check a new CT in 48 hours, and we will follow her along and act accordingly. All above explained to the patient's family at bedside. Fer Hancock MD
[2018-07-02] MEDS: (Novolin R) Insulin Human Regular 100 units/ml vial SC SCH ×4 (07:23→21:50)
[2018-07-02 07:29] LABS: BASO % 0.9 % (0.0-2.0); EOS # 0.1 K/uL (0.0-0.7); EOS % 1.5 % (0.0-4.0); HEMOGLOBIN 13.3 g/dL (11.0-16.0); LYMPH # 2.4 K/uL (1.0-4.3); LYMPH % 47.1 % (20.0-40.0); MEAN CELL VOLUME 95.1 fL (81.0-99.0); MEAN CORPUSCULAR HEMOGLOBIN 32.5 pg (27.0-31.0); MEAN CORPUSCULAR HGB CONC 34.1 g/dL (33.0-37.0); MEAN PLATELET VOLUME 7.4 fL (7.2-11.7); MONO # 0.7 K/uL (0.0-0.8); NEUT # 1.9 K/uL (1.8-7.0); NEUT % 37.5 % (50.0-75.0); NRBC % 0.1 % (0.0-2.0); RBC 4.08 Mil/uL (3.80-5.20); RED CELL DISTRIBUTION WIDTH 13.8 % (11.5-14.5); WHITE BLOOD COUNT 5.1 K/uL (4.8-10.8)
[2018-07-02 07:52] LABS: ALT/SGPT 14 U/L (9-52); AST/SGOT 36 U/L (14-36); BLOOD UREA NITROGEN 31 mg/dL (7-17); CALCIUM 8.6 mg/dl (8.6-10.4); GFR NON-AFRICAN AMERICAN > 60
--- NOTE | 2018-07-02 08:12 | CP.PCM.PN ---
Subjective - Date & Time of Evaluation Date of Evaluation: 07/02/18 Time of Evaluation: 08:11 - Subjective Subjective: PGY-1 Medicine Progress Note for Dr. Parsons Patient seen and examined at bedside this AM, resting comfortably. No acute overnight events reported. Patient more alert today, making eye contact and moving head more. More verbal than on admission. Pressure on VPS valve was reduced to 1.5 by Neurosurgery, will re-evaluate head CT tomorrow. Objective - Vital Signs/Intake and Output Vital Signs (last 24 hours): Temp Pulse Resp BP Pulse Ox 98.0 F 89 20 111/77 96 07/02/18 00:00 07/02/18 01:00 07/02/18 00:00 07/02/18 00:00 07/02/18 00:00 Intake and Output: 07/02/18 07/02/18 06:59 18:59 Output Total 300 Balance -300 - Medications Medications: Current Medications Albuterol (Ventolin Hfa 90 Mcg/Actuation (8 G)) 2 puff INH RQ6 PRN PRN Reason: Shortness of Breath Albuterol Sulfate (Albuterol 0.042% Inhal Ely (1.25mg/3ml) Ud) 1.25 mg INH RQ6 PRN PRN Reason: Shortness of Breath Amantadine HCl (Symmetrel) 100 mg PO DAILY [facility] Last Admin: 07/01/18 10:18 Dose: Not Given Amlodipine Besylate (Norvasc) 5 mg PO DAILY [facility] Last Admin: 07/01/18 10:18 Dose: Not Given Ascorbic Acid (Vitamin C 500 Mg Tab) 500 mg PO DAILY [facility] Last Admin: 07/01/18 10:18 Dose: Not Given Dextrose (Dextrose 50% Inj) 0 ml IV STAT PRN; Protocol PRN Reason: Hypoglycemia Protocol Dextrose (Glutose 15) 0 gm PO ONCE PRN; Protocol PRN Reason: Hypoglycemia Protocol Fluticasone/Vilanterol (Breo Ellipta 100-25 Mcg Inh) 1 puff INH RQD PRN PRN Reason: shortness of breath Furosemide (Lasix) 20 mg IVP DAILY [facility] Last Admin: 07/01/18 10:13 Dose: 20 mg Glucagon (Glucagen Diagnostic Kit) 0 mg IM STAT PRN; Protocol PRN Reason: Hypoglycemia Protocol Heparin Sodium (Porcine) (Heparin) 5,000 units SC Q8 [facility] Last Admin: 07/02/18 05:15 Dose: 5,000 units Dextrose (Dextrose 5% In Water 1000 Ml) 1,000 mls @ 0 mls/hr IV .Q0M PRN; Protocol PRN Reason: Hypoglycemia Protocol Valproate Sodium 250 mg/ (Sodium Chloride) 102.5 mls @ 100 mls/hr IV BID [facility] Last Admin: 07/01/18 18:00 Dose: 100 mls/hr Insulin Detemir (Levemir) 8 unit SC Q12H [facility] Last Admin: 07/02/18 03:14 Dose: Not Given Insulin Human Regular (Novolin R) 0 unit SC ACHS [facility]; Protocol Last Admin: 07/02/18 07:23 Dose: Not Given Lactobacillus Acidophilus (Lactobacillus) 1 cap PO BID [facility] Last Admin: 07/01/18 17:59 Dose: 1 cap Lactulose (Enulose) 20 gm PO HS PRN PRN Reason: constip Latanoprost (Xalatan Opht) 0 ml OU HS [facility] Last Admin: 07/01/18 22:07 Dose: 2.5 ml Losartan Potassium (Cozaar) 25 mg PO DAILY [facility] Last Admin: 07/01/18 10:17 Dose: Not Given Pantoprazole Sodium (Protonix Inj) 40 mg IVP DAILY [facility] Last Admin: 07/01/18 10:12 Dose: 40 mg Primidone (Mysoline) 50 mg PO HS [facility] Last Admin: 07/01/18 21:19 Dose: 50 mg - Labs Labs: 07/02/18 07:11 07/02/18 07:11 PT 12.6 SECONDS (9.7-12.2) H 07/01/18 02:15 INR 1.2 07/01/18 02:15 APTT 27 SECONDS (21-34) 07/01/18 02:15 - Constitutional Appears: Non-toxic, No Acute Distress - Head Exam Additional comments: L sided parietoccipital PARKING LOT SPOTTER shunt - Eye Exam Eye Exam: EOMI, Normal appearance, PERRL - ENT Exam ENT Exam: Mucous Membranes Moist, Normal Exam - Neck Exam Neck Exam: Normal Inspection. absent: Tenderness - Respiratory Exam Respiratory Exam: Clear to Ausculation Bilateral, NORMAL BREATHING PATTERN. absent: Accessory Muscle Use, Rales, Rhonchi, Wheezes, Respiratory Distress, Stridor - Cardiovascular Exam Cardiovascular Exam: REGULAR RHYTHM, +S1, +S2 - GI/Abdominal Exam GI & Abdominal Exam: Soft, Normal Bowel Sounds. absent: Distended, Firm, Guarding, Rigid, Tenderness, Rebound - Extremities Exam Extremities Exam: Normal Capillary Refill, Pedal Edema. absent: Calf Tenderness - Neurological Exam Neurological Exam: Alert, Awake - Skin Skin Exam: Dry, Intact, Normal Color, Warm Assessment and Plan - Assessment and Plan (Free Text) Assessment: 67 year old female with past medical history of hydrocephalus with PARKING LOT SPOTTER shunt, HTN, HLD, DM, asthma transferred from [place], [place] for AMS with suspected PARKING LOT SPOTTER shunt abnormality. Plan: Hydrocephalus -CT head (image reports faxed, in chart) demonstrate interval worsening of hydrocephalus -multiple PARKING LOT SPOTTER shunt repairs last admission (10/2017) -Neurosurgery (Dr. Hancock) on case Pressure setting reduced on VPS valve from 2.5 to 1.5. Will recheck CT on Monday07/03/18 -CXR moderate left pleural effusion -patient restarted on all home meds, as per faxed chart, including primidone 50 mg PO HS and Depakene 250 PO BID Depakote switched to 250mg BID IV. 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 - Family stated that they did not want NG tube at this time. - UA pending Dependent edema -lasix 20 mg IVP x1, aldactone 25 mg POx1 given hypokalemia -lasix 20 mg IVP daily -f/u venous dopplers Hypokalemia -KCl 40mEq IV stat given for K 2.9 -replete prn DM -home meds held -Levemir 8 units q12 -ISS low -accuchecks achs -hypoglycemic protocol HLD -Continue statin Asthma -controlled, not actively wheezing -will restart all home meds as per chart prn -Albuterol Q6 PRN HTN -resume home meds -Norvasc 5mg PO daily -Losartan 25 mg PO daily PPx, Diet, Disposition -DVT ppx: scds, heparin 5000 units sc -GI ppx: protonix, lactobacillus -Diet: pureed diet Case discussed with Dr. Jaqueline Tapia, PGY1
[2018-07-02] MEDS ORDERED: Potassium Chloride 20 mEq/15 ml LIQ UD PO ONE (08:13)
[2018-07-02] MEDS: Amantadine 50 mg/5 ml Syrup (473 ml) PO SCH (11:00)
[2018-07-02] MEDS: Valproate 250 MG in Sodium Chloride 0.9% 100 ML IV SCH ×2 (11:00→18:30)
[2018-07-02] MEDS: Lactobacillus Acidophilus 500 MU Cap PO SCH ×2 (11:00→18:16)
[2018-07-02] MEDS: Latanoprost 2.5 ml Opht Soln OU SCH (21:54)
[2018-07-03] MEDS: Insulin Detemir 100 units/ml Vial (Levemir) SC SCH ×2 (03:40→14:36)
[2018-07-03] MEDS: (Novolin R) Insulin Human Regular 100 units/ml vial SC SCH ×4 (07:59→21:32)
[2018-07-03 08:01] LABS: BASO # 0.1 K/uL (0.0-0.2); EOS # 0.1 K/uL (0.0-0.7); EOS % 2.3 % (0.0-4.0); HEMOGLOBIN 13.3 g/dL (11.0-16.0); LYMPH # 2.5 K/uL (1.0-4.3); LYMPH % 45.7 % (20.0-40.0); MEAN CORPUSCULAR HEMOGLOBIN 32.4 pg (27.0-31.0); MEAN CORPUSCULAR HGB CONC 33.7 g/dL (33.0-37.0); MEAN PLATELET VOLUME 7.7 fL (7.2-11.7); MONO # 0.6 K/uL (0.0-0.8); MONO % 11.9 % (0.0-10.0); NEUT # 2.1 K/uL (1.8-7.0); NEUT % 39.1 % (50.0-75.0); NRBC % 0.1 % (0.0-2.0); RBC 4.11 Mil/uL (3.80-5.20); RED CELL DISTRIBUTION WIDTH 13.7 % (11.5-14.5); WHITE BLOOD COUNT 5.4 K/uL (4.8-10.8)
--- NOTE | 2018-07-03 08:56 | CP.PCM.PN ---
Subjective - Date & Time of Evaluation Date of Evaluation: 07/03/18 Time of Evaluation: 08:54 - Subjective Subjective: PGY-1 Medicine Progress Note for Dr. Parsons Patient seen and examined at bedside this AM. No acute overnight events reported. Mental status steadily improving s/p reduction of valve pressure by Neurosurgery. Awaiting further recs s/p repeat CT head today. Objective - Vital Signs/Intake and Output Vital Signs (last 24 hours): Temp Pulse Resp BP Pulse Ox 97.7 F 74 20 119/76 98 07/03/18 07:07 07/03/18 08:24 07/03/18 07:07 07/03/18 07:07 07/03/18 07:07 - Medications Medications: Current Medications Albuterol (Ventolin Hfa 90 Mcg/Actuation (8 G)) 2 puff INH RQ6 PRN PRN Reason: Shortness of Breath Albuterol Sulfate (Albuterol 0.042% Inhal Ely (1.25mg/3ml) Ud) 1.25 mg INH RQ6 PRN PRN Reason: Shortness of Breath Amantadine HCl (Symmetrel) 100 mg PO DAILY [facility] Last Admin: 07/02/18 11:00 Dose: 100 mg Amlodipine Besylate (Norvasc) 5 mg PO DAILY [facility] Last Admin: 07/02/18 11:00 Dose: 5 mg Ascorbic Acid (Vitamin C 500 Mg Tab) 500 mg PO DAILY [facility] Last Admin: 07/02/18 11:00 Dose: 500 mg Dextrose (Dextrose 50% Inj) 0 ml IV STAT PRN; Protocol PRN Reason: Hypoglycemia Protocol Dextrose (Glutose 15) 0 gm PO ONCE PRN; Protocol PRN Reason: Hypoglycemia Protocol Fluticasone/Vilanterol (Breo Ellipta 100-25 Mcg Inh) 1 puff INH RQD PRN PRN Reason: shortness of breath Furosemide (Lasix) 20 mg IVP DAILY [facility] Last Admin: 07/02/18 11:00 Dose: 20 mg Glucagon (Glucagen Diagnostic Kit) 0 mg IM STAT PRN; Protocol PRN Reason: Hypoglycemia Protocol Heparin Sodium (Porcine) (Heparin) 5,000 units SC Q8 [facility] Last Admin: 07/03/18 06:20 Dose: 5,000 units Dextrose (Dextrose 5% In Water 1000 Ml) 1,000 mls @ 0 mls/hr IV .Q0M PRN; Protocol PRN Reason: Hypoglycemia Protocol Valproate Sodium 250 mg/ (Sodium Chloride) 102.5 mls @ 100 mls/hr IV BID [facility] Last Admin: 07/02/18 18:30 Dose: 100 mls/hr Insulin Detemir (Levemir) 8 unit SC Q12H [facility] Last Admin: 07/03/18 03:40 Dose: 8 u Insulin Human Regular (Novolin R) 0 unit SC ACHS [facility]; Protocol Last Admin: 07/03/18 07:59 Dose: Not Given Lactobacillus Acidophilus (Lactobacillus) 1 cap PO BID [facility] Last Admin: 07/02/18 18:16 Dose: 1 cap Lactulose (Enulose) 20 gm PO HS PRN PRN Reason: constip Latanoprost (Xalatan Opht) 0 ml OU HS [facility] Last Admin: 07/02/18 21:54 Dose: 2.5 ml Losartan Potassium (Cozaar) 25 mg PO DAILY [facility] Last Admin: 07/02/18 11:00 Dose: 25 mg Pantoprazole Sodium (Protonix Inj) 40 mg IVP DAILY [facility] Last Admin: 07/02/18 11:00 Dose: 40 mg Primidone (Mysoline) 50 mg PO HS [facility] Last Admin: 07/02/18 21:53 Dose: 50 mg - Labs Labs: 07/03/18 07:46 07/02/18 07:11 PT 12.6 SECONDS (9.7-12.2) H 07/01/18 02:15 INR 1.2 07/01/18 02:15 APTT 27 SECONDS (21-34) 07/01/18 02:15 - Constitutional Appears: Non-toxic, In Acute Distress - Head Exam Additional comments: L sided parietoccipital DEPARTMENT MANAGER shunt - Eye Exam Eye Exam: EOMI, Normal appearance, PERRL Pupil Exam: NORMAL ACCOMODATION - ENT Exam ENT Exam: Mucous Membranes Moist, Normal Exam - Neck Exam Neck Exam: Full ROM, Normal Inspection. absent: Tenderness - Respiratory Exam Respiratory Exam: Clear to Ausculation Bilateral, NORMAL BREATHING PATTERN. absent: Accessory Muscle Use, Rales, Rhonchi, Wheezes, Respiratory Distress, Stridor - Cardiovascular Exam Cardiovascular Exam: REGULAR RHYTHM, +S1, +S2 - GI/Abdominal Exam GI & Abdominal Exam: Soft, Normal Bowel Sounds. absent: Distended, Firm, Guarding, Rigid, Tenderness, Rebound - Extremities Exam Extremities Exam: Full ROM, Normal Capillary Refill, Normal Inspection, Pedal Edema. absent: Calf Tenderness - Back Exam Back Exam: NORMAL INSPECTION - Neurological Exam Neurological Exam: Alert, Awake, CN II-XII Intact, Oriented x3 - Skin Skin Exam: Dry, Intact, Normal Color, Warm Assessment and Plan - Assessment and Plan (Free Text) Assessment: 67 year old female with past medical history of hydrocephalus with DEPARTMENT MANAGER shunt, HTN, HLD, DM, asthma transferred from [place], [place] for AMS with suspected DEPARTMENT MANAGER shunt abnormality. Plan: Hydrocephalus -multiple DEPARTMENT MANAGER shunt repairs last admission (10/2017) -CXR: moderate left pleural effusion -CT head (image reports faxed, in chart): interval worsening of hydrocephalus -Neurosurgery (Dr. Hancock) on case Pressure setting reduced on VPS valve from 2.5 to 1.5. -f/u further recs pending repeat CT head today (07/03) -patient restarted on all home meds, as per faxed chart, including primidone 50 mg PO HS and Depakene 250 PO BID Depakote switched to 250mg BID IV. 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 Dependent edema -lasix 20 mg IVP x1, aldactone 25 mg POx1 given hypokalemia -lasix 20 mg IVP daily Hypokalemia -replete prn DM -home meds held -Levemir 8 units q12 -ISS low -accuchecks achs -hypoglycemic protocol HLD -Continue statin Asthma -controlled, not actively wheezing -will restart all home meds as per chart prn -Albuterol Q6 PRN HTN -resume home meds -Norvasc 5mg PO daily -Losartan 25 mg PO daily PPx, Diet, Disposition -DVT ppx: scds, heparin 5000 units sc -GI ppx: protonix, lactobacillus -Diet: pureed diet Case discussed with Dr. Jaqueline Bustos DO, PGY-1
[2018-07-03 09:26] LABS: ALT/SGPT 23 U/L (9-52); AST/SGOT 40 U/L (14-36); BLOOD UREA NITROGEN 38 mg/dL (7-17); CALCIUM 8.8 mg/dl (8.6-10.4); GFR NON-AFRICAN AMERICAN > 60
[2018-07-03] MEDS ORDERED: Potassium Chloride 20 mEq/15 ml LIQ UD PO ONE (09:33)
[2018-07-03] MEDS: Amantadine 50 mg/5 ml Syrup (473 ml) PO SCH (10:29)
[2018-07-03] MEDS: Lactobacillus Acidophilus 500 MU Cap PO SCH ×2 (10:29→18:25)
[2018-07-03] MEDS: Valproate 250 MG in Sodium Chloride 0.9% 100 ML IV SCH ×2 (10:29→18:25)
--- NOTE | 2018-07-03 11:25 | CT ---
Date of service: 07/03/2018 PROCEDURE: CT HEAD WITHOUT CONTRAST. HISTORY: NPH, NEPHROLOGY SOCIAL WORKER shunt malfunction COMPARISON: Comparison made with prior CT scan of brain 11/06/2017. TECHNIQUE: Axial computed tomography images were obtained through the head/brain without intravenous contrast. Radiation dose: Total exam DLP = 1010.46 mGy-cm. This CT exam was performed using one or more of the following dose reduction techniques: Automated exposure control, adjustment of the mA and/or kV according to patient size, and/or use of iterative reconstruction technique. FINDINGS: HEMORRHAGE: There are small mildly hypodense extra-axial collections seen in the frontal regions right slightly larger than left, which could represent small chronic subdural hematomas of new since prior exam.. Small amount of intraventricular hemorrhage that was present on the prior study resolved. BRAIN: Low-attenuation white-matter changes are seen surrounding the left posterior parietal NEPHROLOGY SOCIAL WORKER shunt tube which remains well-positioned extending through the posterior body of the left lateral ventricle. Minor low-attenuation white matter changes seen adjacent to the since partially removed right frontal NEPHROLOGY SOCIAL WORKER shunt tube. Additionally, minimal chronic periventricular low-attenuation changes are present which may represent some combination of minimal chronic sequela small vessel disease and chronic longstanding hydrocephalus. The visualized left parietal shunt tubing appears intact VENTRICLES: The ventricles remain dilated though unchanged since prior study. CALVARIUM: Aside from right frontal and left posterior parietal sarina holes, calvarium is otherwise intact. PARANASAL SINUSES: Unremarkable as visualized. No significant inflammatory changes. MASTOID AIR CELLS: Unremarkable as visualized. No inflammatory changes. OTHER FINDINGS: None. IMPRESSION: There are small mildly hypodense extra-axial collections seen in the frontal regions right slightly larger than left, which could represent small chronic subdural hematomas of new since prior exam.. Small amount of intraventricular hemorrhage that was present on the prior study resolved.. Low-attenuation white-matter changes are seen surrounding the left posterior parietal NEPHROLOGY SOCIAL WORKER shunt tube which remains well-positioned extending through the posterior body of the left lateral ventricle. Minor low-attenuation white matter changes seen adjacent to the since partially removed right frontal NEPHROLOGY SOCIAL WORKER shunt tube. Additionally, minimal chronic periventricular low-attenuation changes are present which may represent some combination of minimal chronic sequela small vessel disease and chronic longstanding hydrocephalus The visualized left parietal shunt tubing appears intact The ventricles remain dilated though unchanged since prior.
[2018-07-03] MEDS: Latanoprost 2.5 ml Opht Soln OU SCH (22:03)
[2018-07-04] MEDS: Insulin Detemir 100 units/ml Vial (Levemir) SC SCH ×2 (04:01→14:32)
--- NOTE | 2018-07-04 07:23 | CP.PCM.PN ---
Subjective - Date & Time of Evaluation Date of Evaluation: 07/04/18 Time of Evaluation: 07:23 - Subjective Subjective: PGY-1 Medicine Progress Note for Dr. Parsons Patient seen and examined with family at bedside this AM. No acute overnight events reported. Patient continues to improve clinically, tolerating PO pureed diet well, seen speaking a bit more with family. Speaking with family, it appears patient has some underlying baseline demenia. Repeat CT head obtained does not show any notable changes, will f/u with Neurosurgery for further recs. Objective - Vital Signs/Intake and Output Vital Signs (last 24 hours): Temp Pulse Resp BP Pulse Ox 97.6 F 85 20 113/77 97 07/03/18 23:15 07/03/18 23:40 07/03/18 23:15 07/03/18 23:15 07/03/18 23:15 Intake and Output: 07/04/18 07/04/18 06:59 18:59 Output Total 300 Balance -300 - Medications Medications: Current Medications Albuterol (Ventolin Hfa 90 Mcg/Actuation (8 G)) 2 puff INH RQ6 PRN PRN Reason: Shortness of Breath Albuterol Sulfate (Albuterol 0.042% Inhal Ely (1.25mg/3ml) Ud) 1.25 mg INH RQ6 PRN PRN Reason: Shortness of Breath Amantadine HCl (Symmetrel) 100 mg PO DAILY [facility] Last Admin: 07/03/18 10:29 Dose: 100 mg Amlodipine Besylate (Norvasc) 5 mg PO DAILY [facility] Last Admin: 07/03/18 10:30 Dose: 5 mg Ascorbic Acid (Vitamin C 500 Mg Tab) 500 mg PO DAILY [facility] Last Admin: 07/03/18 10:29 Dose: 500 mg Dextrose (Dextrose 50% Inj) 0 ml IV STAT PRN; Protocol PRN Reason: Hypoglycemia Protocol Dextrose (Glutose 15) 0 gm PO ONCE PRN; Protocol PRN Reason: Hypoglycemia Protocol Fluticasone/Vilanterol (Breo Ellipta 100-25 Mcg Inh) 1 puff INH RQD PRN PRN Reason: shortness of breath Furosemide (Lasix) 20 mg IVP DAILY [facility] Last Admin: 07/03/18 10:30 Dose: 20 mg Glucagon (Glucagen Diagnostic Kit) 0 mg IM STAT PRN; Protocol PRN Reason: Hypoglycemia Protocol Heparin Sodium (Porcine) (Heparin) 5,000 units SC Q8 [facility] Last Admin: 07/04/18 05:08 Dose: 5,000 units Dextrose (Dextrose 5% In Water 1000 Ml) 1,000 mls @ 0 mls/hr IV .Q0M PRN; Protocol PRN Reason: Hypoglycemia Protocol Valproate Sodium 250 mg/ (Sodium Chloride) 102.5 mls @ 100 mls/hr IV BID [facility] Last Admin: 07/03/18 18:25 Dose: 100 mls/hr Insulin Detemir (Levemir) 8 unit SC Q12H [facility] Last Admin: 07/04/18 04:01 Dose: 8 units Insulin Human Regular (Novolin R) 0 unit SC ACHS [facility]; Protocol Last Admin: 07/03/18 21:32 Dose: Not Given Lactobacillus Acidophilus (Lactobacillus) 1 cap PO BID [facility] Last Admin: 07/03/18 18:25 Dose: 1 cap Lactulose (Enulose) 20 gm PO HS PRN PRN Reason: constip Latanoprost (Xalatan Opht) 0 ml OU HS [facility] Last Admin: 07/03/18 22:03 Dose: 2.5 ml Losartan Potassium (Cozaar) 25 mg PO DAILY [facility] Last Admin: 07/03/18 10:30 Dose: 25 mg Pantoprazole Sodium (Protonix Ec Tab) 40 mg PO DAILY [facility] Primidone (Mysoline) 50 mg PO HS [facility] Last Admin: 07/03/18 22:03 Dose: 50 mg - Labs Labs: 07/03/18 07:46 07/03/18 07:46 PT 12.6 SECONDS (9.7-12.2) H 07/01/18 02:15 INR 1.2 07/01/18 02:15 APTT 27 SECONDS (21-34) 07/01/18 02:15 - Constitutional Appears: Non-toxic, No Acute Distress - Head Exam Additional comments: L sided posterior parietal ELECTRICAL SUPERINTENDENT shunt intact - Eye Exam Eye Exam: EOMI, Normal appearance - ENT Exam ENT Exam: Mucous Membranes Moist, Normal Exam - Neck Exam Neck Exam: Full ROM, Normal Inspection - Respiratory Exam Respiratory Exam: Clear to Ausculation Bilateral, NORMAL BREATHING PATTERN. absent: Accessory Muscle Use, Rales, Rhonchi, Wheezes, Respiratory Distress, Stridor - Cardiovascular Exam Cardiovascular Exam: REGULAR RHYTHM, +S1, +S2 - GI/Abdominal Exam GI & Abdominal Exam: Soft, Normal Bowel Sounds. absent: Distended, Firm, Guarding, Rigid, Tenderness, Rebound - Extremities Exam Extremities Exam: Full ROM, Normal Capillary Refill, Normal Inspection - Back Exam Back Exam: NORMAL INSPECTION - Neurological Exam Neurological Exam: Alert, Awake - Skin Skin Exam: Dry, Intact, Normal Color, Warm Assessment and Plan - Assessment and Plan (Free Text) Assessment: 67 year old female with past medical history of hydrocephalus with ELECTRICAL SUPERINTENDENT shunt, HTN, HLD, DM, asthma transferred from [place], [place] for AMS with suspected ELECTRICAL SUPERINTENDENT shunt abnormality. Plan: Hydrocephalus -multiple ELECTRICAL SUPERINTENDENT shunt repairs last admission (10/2017) -CXR: moderate left pleural effusion -CT head (image reports faxed, in chart): interval worsening of hydrocephalus -Neurosurgery (Dr. Hancock) on case Pressure setting reduced on VPS valve from 2.5 to 1.5. -repeat CT head (07/03) does not show any notable change -f/u further recs -patient restarted on all home meds, as per faxed chart, including primidone 50 mg PO HS and Depakene 250 PO BID Depakote switched to 250mg BID IV. 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 Dependent edema -lasix 20 mg IVP x1, aldactone 25 mg POx1 given hypokalemia -lasix 20 mg IVP daily Hypokalemia -replete prn DM -home meds held -Levemir 8 units q12 -ISS low -accuchecks achs -hypoglycemic protocol HLD -Continue statin Asthma -controlled, not actively wheezing -will restart all home meds as per chart prn -Albuterol Q6 PRN HTN -resume home meds -Norvasc 5mg PO daily -Losartan 25 mg PO daily PPx, Diet, Disposition -DVT ppx: scds, heparin 5000 units sc -GI ppx: protonix, lactobacillus -Diet: pureed diet Case discussed with Dr. Jaqueline Bustos DO, PGY-1
[2018-07-04 07:25] LABS: BASO % 0.8 % (0.0-2.0); EOS # 0.1 K/uL (0.0-0.7); EOS % 2.7 % (0.0-4.0); HEMOGLOBIN 13.4 g/dL (11.0-16.0); LYMPH # 2.2 K/uL (1.0-4.3); LYMPH % 44.3 % (20.0-40.0); MEAN CORPUSCULAR HEMOGLOBIN 31.7 pg (27.0-31.0); MEAN PLATELET VOLUME 7.6 fL (7.2-11.7); MONO # 0.5 K/uL (0.0-0.8); MONO % 10.9 % (0.0-10.0); NEUT % 41.3 % (50.0-75.0); NRBC % 0.1 % (0.0-2.0); RBC 4.24 Mil/uL (3.80-5.20); RED CELL DISTRIBUTION WIDTH 13.5 % (11.5-14.5); WHITE BLOOD COUNT 4.9 K/uL (4.8-10.8)
[2018-07-04 07:32] LABS: ALB/GLOB RATIO 1.1 (1.0-2.1); ALT/SGPT 14 U/L (9-52); AST/SGOT 30 U/L (14-36); BLOOD UREA NITROGEN 35 mg/dL (7-17); CALCIUM 8.6 mg/dl (8.6-10.4); GFR NON-AFRICAN AMERICAN > 60
[2018-07-04] MEDS: (Novolin R) Insulin Human Regular 100 units/ml vial SC SCH ×4 (08:30→21:13)
[2018-07-04] MEDS ORDERED: Potassium Chloride 20 mEq/15 ml LIQ UD PO ONE (10:01)
[2018-07-04] MEDS: Lactobacillus Acidophilus 500 MU Cap PO SCH ×2 (10:28→18:07)
[2018-07-04] MEDS: Pantoprazole 40 mg EC Tab PO SCH (10:28)
[2018-07-04] MEDS: Valproate 250 MG in Sodium Chloride 0.9% 100 ML IV SCH ×2 (10:29→18:30)
[2018-07-04] MEDS: Amantadine 50 mg/5 ml Syrup (473 ml) PO SCH (10:33)
[2018-07-04] MEDS: Latanoprost 2.5 ml Opht Soln OU SCH (21:34)
[2018-07-05 07:16] LABS: BASO % 0.9 % (0.0-2.0); EOS # 0.1 K/uL (0.0-0.7); EOS % 1.5 % (0.0-4.0); LYMPH % 38.2 % (20.0-40.0); MEAN CELL VOLUME 95.9 fL (81.0-99.0); MEAN CORPUSCULAR HEMOGLOBIN 31.9 pg (27.0-31.0); MEAN CORPUSCULAR HGB CONC 33.3 g/dL (33.0-37.0); MEAN PLATELET VOLUME 7.7 fL (7.2-11.7); MONO # 0.7 K/uL (0.0-0.8); MONO % 13.4 % (0.0-10.0); NEUT # 2.4 K/uL (1.8-7.0); NRBC % 0.2 % (0.0-2.0); RBC 4.06 Mil/uL (3.80-5.20); RED CELL DISTRIBUTION WIDTH 13.4 % (11.5-14.5); WHITE BLOOD COUNT 5.1 K/uL (4.8-10.8)
[2018-07-05] MEDS: Insulin Detemir 100 units/ml Vial (Levemir) SC SCH ×2 (07:28→17:51)
[2018-07-05 07:30] LABS: ALT/SGPT 19 U/L (9-52); AST/SGOT 39 U/L (14-36); BLOOD UREA NITROGEN 32 mg/dL (7-17); CALCIUM 8.6 mg/dl (8.6-10.4); GFR NON-AFRICAN AMERICAN > 60
--- NOTE | 2018-07-05 07:44 | CP.PCM.PN ---
Subjective - Date & Time of Evaluation Date of Evaluation: 07/05/18 Time of Evaluation: 07:43 - Subjective Subjective: PGY-1 Medicine Progress Note for Dr. Parsons Patient seen and examined at bedside this AM. Patient appears to be steadily improving, responding more to visual and verbal cues. Tolerating PO diet well, responds to questions being asked. Continues to have trouble eating independently and requiring assistance, noted to have resting tremors and some rigidity. Spoke to family extensively about hospital course and disposition. LICENSED VOCATIONAL NURSE shunt appears intact and patient is cleared from Neurosurgery perspective. At this point, patient is medically stable for discharge. Family argues that patient is not at baseline ("cannot eat on her own, does not talk as much") and wishes for Neurology evaluation for Parkinsons Disease previously diagnosed by private neurologist. Neurologist will come to evaluate patient; however, family was encouraged to seek out new neurologist outpatient if dissatisfied with current one, as family lives in [place] and are unable to follow up with hospital's Neurology. Patient's daughter, Maribeth, refuses to take patient back to current custodial facility as she argues that they are negligent of mother. Case management continuing to work with family on safe discharge to alternate custodial facility. Objective - Vital Signs/Intake and Output Vital Signs (last 24 hours): Temp Pulse Resp BP Pulse Ox 97.3 F L 90 12 114/52 L 98 07/05/18 06:05 07/05/18 06:05 07/05/18 06:05 07/05/18 06:05 07/05/18 06:05 Intake and Output: 07/05/18 07/05/18 06:59 18:59 Intake Total 0 Output Total 780 Balance -780 - Medications Medications: Current Medications Albuterol (Ventolin Hfa 90 Mcg/Actuation (8 G)) 2 puff INH RQ6 PRN PRN Reason: Shortness of Breath Albuterol Sulfate (Albuterol 0.042% Inhal Ely (1.25mg/3ml) Ud) 1.25 mg INH RQ6 PRN PRN Reason: Shortness of Breath Amlodipine Besylate (Norvasc) 5 mg PO DAILY [facility] Last Admin: 07/04/18 10:28 Dose: 5 mg Ascorbic Acid (Vitamin C 500 Mg Tab) 500 mg PO DAILY [facility] Last Admin: 07/04/18 10:28 Dose: 500 mg Dextrose (Dextrose 50% Inj) 0 ml IV STAT PRN; Protocol PRN Reason: Hypoglycemia Protocol Dextrose (Glutose 15) 0 gm PO ONCE PRN; Protocol PRN Reason: Hypoglycemia Protocol Fluticasone/Vilanterol (Breo Ellipta 100-25 Mcg Inh) 1 puff INH RQD PRN PRN Reason: shortness of breath Furosemide (Lasix) 20 mg IVP DAILY COUNTS [facility] 234 BEDS AT [facility] Last Admin: 07/03/18 10:30 Dose: 20 mg Glucagon (Glucagen Diagnostic Kit) 0 mg IM STAT PRN; Protocol PRN Reason: Hypoglycemia Protocol Heparin Sodium (Porcine) (Heparin) 5,000 units SC Q8 COUNTS INCLUDE 234 BEDS AT THE [facility] Last Admin: 07/05/18 07:28 Dose: 5,000 units Dextrose (Dextrose 5% In Water 1000 Ml) 1,000 mls @ 0 mls/hr IV .Q0M PRN; Protocol PRN Reason: Hypoglycemia Protocol Valproate Sodium 250 mg/ (Sodium Chloride) 102.5 mls @ 100 mls/hr IV BID COUNTS INCLUDE 234 BEDS AT THE [facility] Last Admin: 07/04/18 18:30 Dose: 100 mls/hr Insulin Detemir (Levemir) 8 unit SC Q12H [facility] Last Admin: 07/05/18 07:28 Dose: 8 units Insulin Human Regular (Novolin R) 0 unit SC ACHS [facility]; Protocol Last Admin: 07/04/18 21:13 Dose: Not Given Lactobacillus Acidophilus (Lactobacillus) 1 cap PO BID COUNTS INCLUDE 234 BEDS AT THE [facility] Last Admin: 07/04/18 18:07 Dose: 1 cap Lactulose (Enulose) 20 gm PO HS PRN PRN Reason: constip Latanoprost (Xalatan Opht) 0 ml OU HS COUNTS INCLUDE 234 BEDS AT THE [facility] Last Admin: 07/04/18 21:34 Dose: 2.5 ml Losartan Potassium (Cozaar) 25 mg PO DAILY COUNTS INCLUDE 234 BEDS AT THE [facility] Last Admin: 07/04/18 10:28 Dose: 25 mg Pantoprazole Sodium (Protonix Ec Tab) 40 mg PO DAILY COUNTS INCLUDE 234 BEDS AT THE [facility] Last Admin: 07/04/18 10:28 Dose: 40 mg Primidone (Mysoline) 50 mg PO HS COUNTS INCLUDE 234 BEDS AT THE [facility] Last Admin: 07/04/18 21:35 Dose: 50 mg - Labs Labs: 07/05/18 07:04 07/05/18 07:04 PT 12.6 SECONDS (9.7-12.2) H 07/01/18 02:15 INR 1.2 07/01/18 02:15 APTT 27 SECONDS (21-34) 07/01/18 02:15 - Constitutional Appears: Non-toxic, No Acute Distress - Head Exam Head Exam: ATRAUMATIC, NORMAL INSPECTION, NORMOCEPHALIC Additional comments: L posterior parietal LICENSED VOCATIONAL NURSE shunt intact - Eye Exam Eye Exam: EOMI, Normal appearance Pupil Exam: NORMAL ACCOMODATION - ENT Exam ENT Exam: Mucous Membranes Moist, Normal Exam - Neck Exam Neck Exam: Normal Inspection - Respiratory Exam Respiratory Exam: Clear to Ausculation Bilateral, NORMAL BREATHING PATTERN. absent: Accessory Muscle Use, Rales, Rhonchi, Wheezes, Respiratory Distress - Cardiovascular Exam Cardiovascular Exam: REGULAR RHYTHM, +S1, +S2 - GI/Abdominal Exam GI & Abdominal Exam: Soft, Normal Bowel Sounds. absent: Distended, Firm, Guarding, Rigid, Tenderness, Rebound - Extremities Exam Extremities Exam: Normal Capillary Refill, Normal Inspection, Pedal Edema. absent: Calf Tenderness - Neurological Exam Neurological Exam: Alert, Altered, Awake Additional comments: Suppressed mental status. Follows simple commands. Somnolent. Reflexes are normal. Sensation is intact. Generalized weakness. Gait cannot be tested. Patient has bradykinesia, rigidity, cogwheeling and tremor. - Psychiatric Exam Psychiatric exam: Flat Affect - Skin Skin Exam: Dry, Intact, Normal Color, Warm Assessment and Plan - Assessment and Plan (Free Text) Assessment: 67 year old female with past medical history of hydrocephalus with LICENSED VOCATIONAL NURSE shunt, HTN, HLD, DM, asthma transferred from [place], [place] for AMS with suspected LICENSED VOCATIONAL NURSE shunt abnormality. Plan: Hydrocephalus, stable -multiple LICENSED VOCATIONAL NURSE shunt repairs last admission (10/2017) -CXR: moderate left pleural effusion -CT head (image reports faxed, in chart): interval worsening of hydrocephalus -Neurosurgery (Dr. Hancock) on case -Pressure setting reduced on VPS valve from 2.5 to 1.5. -pt clinically improving -signed off on case -patient restarted on all home meds, as per faxed chart, including primidone 50 mg PO HS and Depakene 250 PO BID Depakote switched to 250mg BID IV. Altered Mental Status, improved -likely secondary to NPH -pt is afebrile, no leukocytosis -neuro checks, seizure precautions -mental status steadily improving -pt placed on pureed diet following bedside swallow evaluation; tolerating diet well -CXR moderate left pleural effusion, on Lasix 20mg daily --patient restarted on all home meds, as per faxed chart, including primidone 50 mg PO HS and Depakene 250 PO BID Depakote switched to 250mg BID IV. Parkinsons Disease -pt exhibits resting tremors, cogwheel rigidity, bradykinesia -Neurology (Dr. Nixon) consulted per family request -recommends continuing home Amantadine, f/u with outpatient neurology -consider obtaining outpatient Carolyne scan Dependent edema -lasix 20 mg IVP x1, aldactone 25 mg POx1 given hypokalemia -lasix 20 mg IVP daily Hypokalemia -replete prn DM -home meds held -Levemir 8 units q12 -ISS low -accuchecks achs -hypoglycemic protocol HLD -Continue statin Asthma -controlled, not actively wheezing -will restart all home meds as per chart prn -Albuterol Q6 PRN HTN -resume home meds -Norvasc 5mg PO daily -Losartan 25 mg PO daily PPx, Diet, Disposition -DVT ppx: scds, heparin 5000 units sc -GI ppx: protonix, lactobacillus -Diet: pureed diet -Dispo: Patient medically stable for discharge. Awaiting safe dispo plan from case management. Case discussed with Dr. Jaqueline Bustos DO, PGY-1
--- NOTE | 2018-07-05 07:44 | CP.PCM.DIS ---
Provider - Provider Date of Admission: 07/01/18 02:01 Attending physician: Jessica Parsons MD Consults: 07/01/18 02:02 Physician Consult Routine Comment: Consulting Provider: Fer Hancock Consulting Physician: Fer Hancock Reason for Consult: AUTO CRANE DRIVER shunt 07/01/18 05:33 Nursing Referral for Palliative Care Routine Comment: Physician Instructions: Reason For Exam: eval Nursing Referral for Wound Care Routine Comment: Physician Instructions: Reason For Exam: no wound 07/03/18 13:01 Nursing Referral for Wound Care Routine Comment: Physician Instructions: Reason For Exam: EVAL SACRAL DTI Time Spent in preparation of Discharge (in minutes): 40 Diagnosis - Discharge Diagnosis (1) Mental status change Status: Acute (2) AUTO CRANE DRIVER (ventriculoperitoneal) shunt status Status: Acute (3) History of hydrocephalus Status: Chronic (4) Dependent edema Status: Chronic (5) HTN (hypertension) Status: Chronic (6) HLD (hyperlipidemia) Status: Chronic (7) Diabetes mellitus Status: Chronic (8) History of asthma Status: Chronic (9) Prophylactic measure Status: Acute Hospital Course - Lab Results Lab Results: Most Recent Lab Values WBC 5.1 K/uL (4.8-10.8) 07/05/18 07:04 RBC 4.06 Mil/uL (3.80-5.20) 07/05/18 07:04 Hgb 13.0 g/dL (11.0-16.0) 07/05/18 07:04 Hct 39.0 % (34.0-47.0) 07/05/18 07:04 MCV 95.9 fL (81.0-99.0) 07/05/18 07:04 MCH 31.9 pg (27.0-31.0) H 07/05/18 07:04 MCHC 33.3 g/dL (33.0-37.0) 07/05/18 07:04 RDW 13.4 % (11.5-14.5) 07/05/18 07:04 Plt Count 207 K/uL (130-400) 07/05/18 07:04 MPV 7.7 fL (7.2-11.7) 07/05/18 07:04 Neut % (Auto) 46.0 % (50.0-75.0) L 07/05/18 07:04 Lymph % (Auto) 38.2 % (20.0-40.0) 07/05/18 07:04 Marion % (Auto) 13.4 % (0.0-10.0) H 07/05/18 07:04 Eos % (Auto) 1.5 % (0.0-4.0) 07/05/18 07:04 Baso % (Auto) 0.9 % (0.0-2.0) 07/05/18 07:04 Neut # (Auto) 2.4 K/uL (1.8-7.0) 07/05/18 07:04 Lymph # (Auto) 2.0 K/uL (1.0-4.3) 07/05/18 07:04 Marion # (Auto) 0.7 K/uL (0.0-0.8) 07/05/18 07:04 Eos # (Auto) 0.1 K/uL (0.0-0.7) 07/05/18 07:04 Baso # (Auto) 0.0 K/uL (0.0-0.2) 07/05/18 07:04 PT 12.6 SECONDS (9.7-12.2) H 07/01/18 02:15 INR 1.2 07/01/18 02:15 APTT 27 SECONDS (21-34) 07/01/18 02:15 Sodium 134 mmol/L (132-148) 07/05/18 07:04 Potassium 2.8 mmol/L (3.6-5.2) L 07/05/18 07:04 Chloride 95 mmol/L (98-107) L 07/05/18 07:04 Carbon Dioxide 35 mmol/L (22-30) H 07/05/18 07:04 Anion Gap 6 (10-20) L 07/05/18 07:04 BUN 32 mg/dL (7-17) H 07/05/18 07:04 Creatinine 0.5 mg/dL (0.7-1.2) L 07/05/18 07:04 Est GFR ( Amer) > 60 07/05/18 07:04 Est GFR (Non-Af Amer) > 60 07/05/18 07:04 POC Glucose (mg/dL) 203 mg/dL (65-110) H 07/05/18 06:12 Random Glucose 213 mg/dL (65-105) H 07/05/18 07:04 Calcium 8.6 mg/dl (8.6-10.4) 07/05/18 07:04 Phosphorus 3.5 mg/dL (2.5-4.5) 07/05/18 07:04 Magnesium 1.9 mg/dL (1.6-2.3) 07/05/18 07:04 Total Bilirubin 0.6 mg/dL (0.2-1.3) 07/05/18 07:04 AST 39 U/L (14-36) H D 07/05/18 07:04 ALT 19 U/L (9-52) 07/05/18 07:04 Alkaline Phosphatase 59 U/L (38-126) 07/05/18 07:04 Total Protein 6.0 g/dL (6.3-8.3) L 07/05/18 07:04 Albumin 3.0 g/dL (3.5-5.0) L 07/05/18 07:04 Globulin 3.0 gm/dL (2.2-3.9) 07/05/18 07:04 Albumin/Globulin Ratio 1.0 (1.0-2.1) 07/05/18 07:04 Blood Type A POSITIVE 07/01/18 02:15 Antibody Screen Negative 07/01/18 02:15 - Hospital Course Hospital Course: HPI: Patient is a 67 year old female with past medical history of hydrocephalus with AUTO CRANE DRIVER shunt, HTN, HLD, DM, asthma transferred from [place], [place] for AMS with suspected AUTO CRANE DRIVER shunt abnormality. Patient is awake, somewhat alert, minimally responsive to some verbal cues given by family at bedside. Family provides history given pt's status. As per family, patient's mental status has been steadily declining over the course of 1 week. At baseline, patient speaks fluidly, is able to eat soft foods. Patient is currently bedbound but was able to bear minimal weight (2-3 steps) on rolling walker up until April. Of note, patient was last seen at [facility] in October 2017, had multiple AUTO CRANE DRIVER shunt corrections. Patient was followed by Dr. Hancock, who is aware of patient's t ransfer to [facility] [place] on current admission. 12 pt ROS unattainable due to patient's mental status. During course of admission: All home medications were restarted as per chart faxed over. Chest Xray obtained demonstrated moderate left pleural effusion, CT head report faxed showed interval worsening of hydrocephalus. Neurosurgery (Dr. Hancock) was consulted and pressure setting on VPS valve was reduced from 2.5 to 1.5. Patient subsequently clinically improved and repeat CT head two days status-post reduction in valve pressure showed appreciable decrease in hydrocephalus. Neurology (Dr. Nixon) was consulted for noted Parkinsonian symptoms during course of stay, who recommended continuing on home Amantadine dose with outpatient follow-up with private Neurologist that lives closer to family's home. Family might also consider obtaining outpatient Carolyne scan to measure dopamine levels. Patient's mental status continued to improve during course of stay. Patient is medically stable for discharge to [facility], as per Dr. Parsons. Patient is instructed to continue all home medications as prescribed. Patient's family will follow up with private Neurologist for adjustment in Amantidine as needed and for further evaluation of Parkinsonian symptoms. If symptoms worsen or recur, please return to ED immediately. The following is a summary of hospital course. For full detail, please refer to EMR. - Date & Time of H&P Date of H&P: 07/06/18 Time of H&P: 19:15 Discharge Exam - Head Exam Head Exam: ATRAUMATIC, NORMAL INSPECTION, NORMOCEPHALIC Additional comments: L posterior parietal AUTO CRANE DRIVER shunt intact - Eye Exam Eye Exam: EOMI, Normal appearance, PERRL Pupil Exam: NORMAL ACCOMODATION - ENT Exam ENT Exam: Mucous Membranes Moist, Normal Exam - Neck Exam Neck exam: Normal Inspection - Respiratory Exam Respiratory Exam: Clear to PA & Lateral, NORMAL BREATHING PATTERN, UNREMARKABLE. absent: Accessory Muscle Use, Respiratory Distress - Cardiovascular Exam Cardiovascular Exam: REGULAR RHYTHM, +S1, +S2 - GI/Abdominal Exam GI & Abdominal Exam: Normal Bowel Sounds, Soft, Unremarkable. absent: Distended, Firm, Guarding, Rebound - Extremities Exam Extremities exam: normal capillary refill, normal inspection, pedal edema, pedal pulses present - Back Exam Back exam: NORMAL INSPECTION - Neurological Exam Neurological exam: Alert Additional comments: Suppressed mental status. Follows simple commands. Somnolent. Reflexes are normal. Sensation is intact. Generalized weakness. Gait cannot be tested. Patient has bradykinesia, rigidity, cogwheeling and tremor. - Psychiatric Exam Psychiatric exam: Flat Affect - Skin Skin Exam: Dry, Intact, Normal Color, Warm Discharge Plan - Follow Up Plan Condition: FAIR Disposition: TRANSF TO SNF Instructions: Altered Mental Status (GEN) Additional Instructions: Patient is medically stable for discharge to [facility], as per Dr. Parsons. Patient is instructed to continue all home medications as prescribed. Patient's family will follow up with private Neurologist for adjustment in Amantidine as needed and for further evaluation of Parkinsonian symptoms. If symptoms worsen or recur, please return to ED immediately. Referrals: Raymond Nixon MD [Staff Provider] - Fer Hancock MD [Staff Provider] -
[2018-07-05 08:33] VITALS: RESP 20
[2018-07-05] MEDS: Pantoprazole 40 mg EC Tab PO SCH (10:10)
[2018-07-05] MEDS: Lactobacillus Acidophilus 500 MU Cap PO SCH ×2 (10:10→17:50)
[2018-07-05] MEDS: (Novolin R) Insulin Human Regular 100 units/ml vial SC SCH ×4 (10:11→22:24)
[2018-07-05] MEDS: Valproate 250 MG in Sodium Chloride 0.9% 100 ML IV SCH ×2 (10:11→17:50)
[2018-07-05] MEDS ORDERED: Potassium Chloride 20 mEq/15 ml LIQ UD PO ONE (10:45)
--- NOTE | 2018-07-05 15:46 | CP.PCM.CON ---
History of Present Illness - History of Present Illness History of Present Illness: Neurology Consultation Note: Consult requested by Dr. Parsons The patient is a 67-year-old woman with a past medical history of hydrocephalus with WIRE STRANDER shunt, HTN, HLD, DM, asthma transferred from [place], [place] for AMS with suspected WIRE STRANDER shunt abnormality. She was evaluated by Dr. Hancock, of neurosurgery, who adjusted her WIRE STRANDER shunt pressure. She has a history of rigidity and bradykinesia, and was thought to have Parkinsons disease by an outside neurologist and started on Amantadine. She was not given this medication yet today for some reason. When I saw the patient, she was quite somnolent, but would wake up and follow command intermittently, then go back to sleep. Her sister was there and said that this is the way the patient usually is. Review of Systems - Review of Systems Systems not reviewed;Unavailable: Altered Mental Status Past Patient History - Infectious Disease Hx of Infectious Diseases: None - Past Medical History & Family History Past Medical History?: Yes - Past Social History Smoking Status: Never Smoked - CARDIAC Hx Hypercholesterolemia: Yes Hx Hypertension: Yes - PULMONARY Hx Asthma: Yes - NEUROLOGICAL Hx Neurological Disorder: Yes Hx Vertigo: Yes Other/Comment: Hydrocephalus with Shunt - HEENT Other/Comment: " eye problems" - ENDOCRINE/METABOLIC Hx Diabetes Mellitus Type 2: Yes - MUSCULOSKELETAL/RHEUMATOLOGICAL Hx Musculoskeletal Disorders: Yes Hx Falls: Yes - PSYCHIATRIC Hx Substance Use: No - SURGICAL HISTORY Hx Surgeries: Yes Other/Comment: Shunt for Hydrocephalus - ANESTHESIA Hx Anesthesia: Yes Hx Anesthesia Reactions: No Meds Allergies/Adverse Reactions: Allergies Allergy/AdvReac Type Severity Reaction Status Date / Time No Known Allergies Allergy Verified 12/08/15 16:19 - Medications Medications: Current Medications Albuterol (Ventolin Hfa 90 Mcg/Actuation (8 G)) 2 puff INH RQ6 PRN PRN Reason: Shortness of Breath Albuterol Sulfate (Albuterol 0.042% Inhal Ely (1.25mg/3ml) Ud) 1.25 mg INH RQ6 PRN PRN Reason: Shortness of Breath Last Admin: 07/05/18 13:45 Dose: 1.25 mg Amantadine HCl (Symmetrel) 100 mg PO DAILY [facility] Amlodipine Besylate (Norvasc) 5 mg PO DAILY [facility] Last Admin: 07/05/18 10:11 Dose: 5 mg Ascorbic Acid (Vitamin C 500 Mg Tab) 500 mg PO DAILY [facility] Last Admin: 07/05/18 10:10 Dose: 500 mg Dextrose (Dextrose 50% Inj) 0 ml IV STAT PRN; Protocol PRN Reason: Hypoglycemia Protocol Dextrose (Glutose 15) 0 gm PO ONCE PRN; Protocol PRN Reason: Hypoglycemia Protocol Fluticasone/Vilanterol (Breo Ellipta 100-25 Mcg Inh) 1 puff INH RQD PRN PRN Reason: shortness of breath Furosemide (Lasix) 20 mg IVP DAILY [facility] Last Admin: 07/05/18 10:11 Dose: 20 mg Glucagon (Glucagen Diagnostic Kit) 0 mg IM STAT PRN; Protocol PRN Reason: Hypoglycemia Protocol Heparin Sodium (Porcine) (Heparin) 5,000 units SC Q8 [facility] Last Admin: 07/05/18 13:03 Dose: 5,000 units Dextrose (Dextrose 5% In Water 1000 Ml) 1,000 mls @ 0 mls/hr IV .Q0M PRN; Protocol PRN Reason: Hypoglycemia Protocol Valproate Sodium 250 mg/ (Sodium Chloride) 102.5 mls @ 100 mls/hr IV BID [facility] Last Admin: 07/05/18 10:11 Dose: 100 mls/hr Insulin Detemir (Levemir) 8 unit SC Q12H [facility] Last Admin: 07/05/18 07:28 Dose: 8 units Insulin Human Regular (Novolin R) 0 unit SC ACHS [facility]; Protocol Last Admin: 07/05/18 12:15 Dose: 6 unit Lactobacillus Acidophilus (Lactobacillus) 1 cap PO BID [facility] Last Admin: 07/05/18 10:10 Dose: 1 cap Lactulose (Enulose) 20 gm PO HS PRN PRN Reason: constip Latanoprost (Xalatan Opht) 0 ml OU HS [facility] Last Admin: 07/04/18 21:34 Dose: 2.5 ml Losartan Potassium (Cozaar) 25 mg PO DAILY [facility] Last Admin: 07/05/18 10:10 Dose: 25 mg Pantoprazole Sodium (Protonix Ec Tab) 40 mg PO DAILY [facility] Last Admin: 07/05/18 10:10 Dose: 40 mg Primidone (Mysoline) 50 mg PO HS [facility] Last Admin: 07/04/18 21:35 Dose: 50 mg Physical Exam - Constitutional Appears: No Acute Distress - Head Exam Head Exam: ATRAUMATIC, NORMAL INSPECTION, NORMOCEPHALIC - Eye Exam Eye Exam: EOMI, Normal appearance, PERRL - ENT Exam ENT Exam: Mucous Membranes Moist, Normal Exam - Neck Exam Neck exam: Positive for: Normal Inspection - Respiratory Exam Respiratory Exam: Clear to Auscultation Bilateral, NORMAL BREATHING PATTERN - Cardiovascular Exam Cardiovascular Exam: REGULAR RHYTHM, +S1, +S2 - GI/Abdominal Exam GI & Abdominal Exam: Normal Bowel Sounds, Soft. absent: Tenderness - Neurological Exam Neurological exam: Alert, Altered, CN II-XII Intact Additional comments: Suppressed mental status. Follows simple commands. Somnolent. Reflexes are normal. Sensation is intact. Generalized weakness. Gait cannot be tested. Patient has bradykinesia, rigidity, cogwheeling and tremor. - Psychiatric Exam Psychiatric exam: Flat Affect - Skin Skin Exam: Dry, Intact, Normal Color, Warm Results - Vital Signs Recent Vital Signs: Last Vital Signs Temp 98.7 F 07/05/18 07:45 Pulse 75 07/05/18 14:46 Resp 20 07/05/18 07:45 BP 116/77 07/05/18 10:11 Pulse Ox 99 07/05/18 07:45 - Labs Result Diagrams: 07/05/18 07:04 07/05/18 07:04 Labs: Laboratory Results - last 24 hr 07/04/18 07/04/18 07/05/18 15:59 20:47 06:12 WBC RBC Hgb Hct MCV MCH MCHC RDW Plt Count MPV Neut % (Auto) Lymph % (Auto) Carter % (Auto) Eos % (Auto) Baso % (Auto) Neut # (Auto) Lymph # (Auto) Carter # (Auto) Eos # (Auto) Baso # (Auto) Sodium Potassium Chloride Carbon Dioxide Anion Gap BUN Creatinine Est GFR ( Amer) Est GFR (Non-Af Amer) POC Glucose (mg/dL) 274 H 278 H 203 H Random Glucose Calcium Phosphorus Magnesium Total Bilirubin AST ALT Alkaline Phosphatase NT-Pro-B Natriuret Pep Total Protein Albumin Globulin Albumin/Globulin Ratio 07/05/18 07/05/18 07/05/18 07:04 07:04 11:34 WBC 5.1 RBC 4.06 Hgb 13.0 Hct 39.0 MCV 95.9 MCH 31.9 H MCHC 33.3 RDW 13.4 Plt Count 207 MPV 7.7 Neut % (Auto) 46.0 L Lymph % (Auto) 38.2 Carter % (Auto) 13.4 H Eos % (Auto) 1.5 Baso % (Auto) 0.9 Neut # (Auto) 2.4 Lymph # (Auto) 2.0 Carter # (Auto) 0.7 Eos # (Auto) 0.1 Baso # (Auto) 0.0 Sodium 134 Potassium 2.8 L Chloride 95 L Carbon Dioxide 35 H Anion Gap 6 L BUN 32 H Creatinine 0.5 L Est GFR ( Amer) > 60 Est GFR (Non-Af Amer) > 60 POC Glucose (mg/dL) 408 H* Random Glucose 213 H Calcium 8.6 Phosphorus 3.5 Magnesium 1.9 Total Bilirubin 0.6 AST 39 H D ALT 19 Alkaline Phosphatase 59 NT-Pro-B Natriuret Pep Cancelled Total Protein 6.0 L Albumin 3.0 L Globulin 3.0 Albumin/Globulin Ratio 1.0 Assessment & Plan - Assessment and Plan (Free Text) Assessment: The patient likely has Parkinsons disease, but this would require outpatient management with a neurologist. Plan: Continue amantadine 100 mg daily and follow up with outpatient neurology. Consider obtaining a Carolyne scan. Thank you for this consultation.
[2018-07-05] MEDS: Amantadine 50 mg/5 ml Syrup (473 ml) PO SCH (17:51)
--- NOTE | 2018-07-05 21:27 | VASCLAB ---
Date of service: 07/03/2018 PROCEDURE: Lower Extremity Venous Duplex Exam. HISTORY: Leg edema, bedbound PRIORS: None. TECHNIQUE: Bilateral common femoral, femoral, popliteal and posterior tibial, peroneal and great saphenous veins were evaluated. Flow was assessed with color Doppler, compressibility, assessment of phasic flow and augmentation response. Report prepared by Gigi Gonzalez, LANETTE, RVT FINDINGS: RIGHT: 1. Common Femoral Vein: 1.1. Compressibility - Fully compressible: Thrombus - None : Flow - Phasic: Augmentation -Normal: Reflux - None. 2. Femoral Vein: 2.1. Compressibility - Fully compressible: Thrombus - None : Flow - Phasic: Augmentation -Normal: Reflux - None. 3. Popliteal Vein: 3.1. Compressibility - Fully compressible: Thrombus - None : Flow - Phasic: Augmentation -Normal: Reflux - None. 4. Posterior Tibial Vein: 4.1. Compressibility - Fully compressible: Thrombus - None: Flow - Phasic: Augmentation -Normal: Reflux - None. 5. Peroneal Vein: 5.1. Compressibility - Fully compressible: Thrombus - None: Flow - Phasic: Augmentation -Normal: Reflux - None. 6. Great Saphenous Vein: 6.1. Compressibility - Fully compressible: Thrombus - None: Flow - Phasic: Augmentation - Normal: Reflux - None. LEFT: 1. Common Femoral Vein: 1.1. Compressibility - Fully compressible: Thrombus - None: Flow - Phasic: Augmentation -Normal: Reflux - None. 2. Femoral Vein: 2.1. Compressibility - Fully compressible: Thrombus - None: Flow - Phasic: Augmentation -Normal: Reflux - None. 3. Popliteal Vein: 3.1. Compressibility - Fully compressible: Thrombus - None : Flow - Phasic: Augmentation -Normal: Reflux - None. 4. Posterior Tibial Vein: 4.1. Compressibility - Fully compressible: Thrombus - None: Flow - Phasic: Augmentation -Normal: Reflux - None. 5. Peroneal Vein: 5.1. Compressibility - Fully compressible: Thrombus - None: Flow - Phasic: Augmentation -Normal: Reflux - None. 6. Great Saphenous Vein: 6.1. Compressibility - Fully compressible: Thrombus - None: Flow - Phasic: Augmentation - Normal: Reflux - None. OTHER FINDINGS: Right: Mild edema. Left: Mild edema. IMPRESSION: Right: No evidence of deep or superficial vein thrombosis of the right lower extremity. Normal valve function noted of the right side. Left: No evidence of deep or superficial vein thrombosis of the left lower extremity. Normal valve function noted of the left side.
[2018-07-05] MEDS ORDERED: (Lantus) Insulin Glargine, Recombinant SC SCH (22:00)
[2018-07-05] MEDS: Potassium Chloride 20 mEq/15 ml LIQ UD PO SCH (22:24)
[2018-07-05] MEDS: Latanoprost 2.5 ml Opht Soln OU SCH (22:25)
[2018-07-06 07:50] VITALS: TEMP 98.3; O2SAT 97
[2018-07-06 08:04] LABS: BASO % 0.7 % (0.0-2.0); EOS # 0.2 K/uL (0.0-0.7); EOS % 2.7 % (0.0-4.0); HEMOGLOBIN 12.8 g/dL (11.0-16.0); LYMPH # 2.6 K/uL (1.0-4.3); LYMPH % 44.9 % (20.0-40.0); MEAN CORPUSCULAR HEMOGLOBIN 32.2 pg (27.0-31.0); MEAN CORPUSCULAR HGB CONC 33.5 g/dL (33.0-37.0); MEAN PLATELET VOLUME 7.8 fL (7.2-11.7); MONO # 0.7 K/uL (0.0-0.8); MONO % 12.1 % (0.0-10.0); NEUT # 2.2 K/uL (1.8-7.0); NEUT % 39.6 % (50.0-75.0); NRBC % 0.1 % (0.0-2.0); RBC 3.99 Mil/uL (3.80-5.20); RED CELL DISTRIBUTION WIDTH 13.4 % (11.5-14.5); WHITE BLOOD COUNT 5.7 K/uL (4.8-10.8)
[2018-07-06] MEDS: (Novolin R) Insulin Human Regular 100 units/ml vial SC SCH ×2 (08:16→12:30)
[2018-07-06 08:18] LABS: ALT/SGPT 19 U/L (9-52); AST/SGOT 31 U/L (14-36); BLOOD UREA NITROGEN 37 mg/dL (7-17); CALCIUM 8.8 mg/dl (8.6-10.4); GFR NON-AFRICAN AMERICAN > 60
[2018-07-06] MEDS ORDERED: Potassium Chloride 20 mEq/15 ml LIQ UD PO ONE (08:25)
[2018-07-06] MEDS ORDERED: Potassium Chl 40 mEq in D5-1/2 1,000 ML IV SCH (08:45)
[2018-07-06 09:08] VITALS: PULSE 79
[2018-07-06] MEDS: Amantadine 50 mg/5 ml Syrup (473 ml) PO SCH (10:30)
[2018-07-06] MEDS: Pantoprazole 40 mg EC Tab PO SCH (10:32)
[2018-07-06] MEDS: Potassium Chloride 20 mEq/15 ml LIQ UD PO SCH (10:32)
[2018-07-06] MEDS: Lactobacillus Acidophilus 500 MU Cap PO SCH (10:32)
[2018-07-06 10:33] VITALS: BP 117/75
[2018-07-06] MEDS: Valproate 250 MG in Sodium Chloride 0.9% 100 ML IV SCH (10:33)
[2018-07-06 12:55] LABS: BLOOD UREA NITROGEN 35 mg/dL (7-17); CALCIUM 8.8 mg/dl (8.6-10.4); GFR NON-AFRICAN AMERICAN > 60
== END 2018-07-06 15:33 | DRG 57 ==
LOC: C.ER 01:11 → C.3T 02:01 → C.5S 03:42
PROVIDERS: ADMIT Internal Medicine; ATTEND Internal Medicine
DX: G91.2 (Idiopathic) normal pressure hydrocephalus (principal); R41.82 Altered mental status, unspecified; J90 Pleural effusion, not elsewhere classified; I10 Essential (primary) hypertension; E11.9 Type 2 diabetes mellitus without complications; J45.909 Unspecified asthma, uncomplicated; Z98.2 Presence of cerebrospinal fluid drainage device; G20 Parkinson's disease; E78.5 Hyperlipidemia, unspecified; E78.00 Pure hypercholesterolemia, unspecified; Z74.01 Bed confinement status